=== PATIENT | female | born 2000 | race Caucasian/White ===

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

== ENCOUNTER → 2019-04-24 09:34 | Outpatient (CLI) | payer OTHER, MEDICAID, SELFPAY ==
[2019-04-24 10:22] LABS: Add Manual Diff / Slide Review NO; Basophils Absolute Auto 0 /uL (0-100); Basophils Percent Auto 0.5 % (0-2); Eosinophils Absolute Auto 100 /uL (0-450); Eosinophils Percent Auto 1.9 % (2-4); Hematocrit 37.1 % (36-46); Hemoglobin 12.5 g/dL (12.0-16.0); Lymphocytes Absolute Auto 2500 /uL (1100-4500); Mean Corpuscular HGB Conc 33.7 % (30-36); Mean Corpuscular Hemoglobin 27.8 PG (26-34); Mean Corpuscular Volume 82.5 fL (80-100); Monocytes Absolute Auto 400 /uL (0-900); Monocytes Percent Auto 6.5 % (3-14); Neutrophils Absolute Auto 3300 /uL (1500-7000); Neutrophils Percent Auto 52.1 % (50-75); Platelet Count 307 X10^3/uL (150-400); Red Blood Cell Count 4.49 X10^6/uL (4.0-5.2); Red Cell Distribution Width 14.9 % (11.6-14.8); White Blood Cell Count 6.3 X10^3/uL (4.5-11.0)
[2019-04-24 10:42] LABS: Alanine Aminotransferase 21 IU/L (9-52); Albumin 4.4 g/dL (3.5-5.0); Albumin Globulin Ratio 1.4 (1.0-2.8); Alkaline Phosphatase 74 U/L (38-126); Aspartate Aminotransferase 19 IU/L (14-36); BUN Creatinine Ratio 16.7 (6-22); Bilirubin Total 0.4 mg/dL (0.2-1.3); Blood Urea Nitrogen 10 mg/dL (7-17); Calcium 9.5 mg/dL (8.4-10.2); Carbon Dioxide 24 mmol/L (22-32); Chloride 108 mmol/L (98-107); Cholesterol 187 mg/dL (140-199); Estimated Glomerular Filt Rate > 60.0 mL/min (>60); Globulin 3.1 g/dL (1.7-4.1); Glucose 97 mg/dL (70-100); HDL Cholesterol 58 mg/dL (40-60); HEMOLYSIS < 15 (0-50); LDL Cholesterol Calculated 107 mg/dL (<100); Potassium 4.5 mmol/L (3.4-5.1); Sodium 140 mmol/L (137-145); Total Protein 7.5 g/dL (6.3-8.2); Triglycerides 111 mg/dL (35-150)
[2019-04-24 10:58] LABS: Free T3, Triiodothyronine Free 3.29 pg/mL (2.77-5.27); Free T4, Direct Thyroxine 0.63 ng/dL (0.78-2.19)
[2019-04-24 11:12] LABS: Thyroid Stimulating Hormone 2.16 uIU/mL (0.47-4.68)
== END ==
PROVIDERS: PCP Family Medicine; Visit Provider Family Medicine
DX: Z98.890 Other specified postprocedural states (principal); Z51.81 Encounter for therapeutic drug level monitoring; E03.9 Hypothyroidism, unspecified; G40.909 Epilepsy, unspecified, not intractable, without status epilepticus; Z13.220 Encounter for screening for lipoid disorders
CPT/HCPCS: 36415; 80053; 80061; 84439; 84443; 84481; 85025

== ENCOUNTER → 2019-05-15 12:09 | Outpatient (CLI) | payer OTHER, MEDICAID, SELFPAY ==
[2019-05-15 13:51] LABS: Appearance Urine UA SL CLOUDY; Bilirubin Urine UA NEGATIVE (NEGATIVE); Color Urine UA YELLOW; Glucose Urine UA NEGATIVE (Negative); Ketones Urine UA NEGATIVE (NEGATIVE); Leukocyte Esterase Urine UA NEGATIVE (NEGATIVE); Nitrite Urine UA NEGATIVE (Negative); Occult Blood Urine UA NEGATIVE (Negative); Protein Urine UA NEGATIVE (Negative); Urobilinogen Urine UA 0.2 E.U./dL (0.2)
== END ==
PROVIDERS: PCP Family Medicine; Visit Provider Family Medicine
DX: Z13.220 Encounter for screening for lipoid disorders (principal); Z51.81 Encounter for therapeutic drug level monitoring; E03.9 Hypothyroidism, unspecified; G40.909 Epilepsy, unspecified, not intractable, without status epilepticus; Z98.890 Other specified postprocedural states
CPT/HCPCS: 81003

== ENCOUNTER 2019-07-27 15:18 | Outpatient (RCR) | payer OTHER, MEDICAID, SELFPAY ==
--- NOTE | 2019-07-27 17:36 | ST.OPIE ---
Visit Care Team Role Provider Type Kirstin Parmar DO Attending Provider Physician Primary Care Provider Specialty: Family Practice Address: [address] [place] [address], [address], [place], [address] Email: [email or web address] Speech-Language Pathology Initial Evaluation CEMENT CONVEYOR OPERATOR Language Evaluation Start: 07/27/19 11:56 Freq: Status: Active Protocol: Document 07/27/19 16:19 LNK (Rec: 07/27/19 16:39 [facility] [id number]) Language Evaluation Session Time Visit Start Time 15:30 Visit Stop Time 16:15 Total Visit Minutes 45 Visit Information Visit Number 1 Plan of Care Dates 07/27/19 Insurance Information [employer] Next Note Type Next Note Type Treatment Note Referral Referring Physician Dr. Parmar Reason for Referral Selective mutism Language Evaluation Assessment Type Informal Past Medical History Patient History Mona is a 18 year old female who is status post right hemisphere resection secondary to frequent and severe seizure disorder. She is enrolled in a transitions program in [place]. Her mother brought her to the session. Mona has had seizures since she was a baby. Currently, she is living with her parents and brother. Subjective Subjective Mona presented for her appointment in [facility]. She looked disheveled. She initially did not speak to me, but nodded her head. She was encouraged to use a voice and words to answer her question, which she did. her mother attended the initial 10 minutes of the session. - Informal Assessment Receptive Language Normal Appears to be WFL Expressive Language Normal Appears to be WFL Articulation Normal Appears to be WFL Formal Assessment Results Formal assessment was not conducted as verbal language would be required. At this point this CEMENT CONVEYOR OPERATOR will wait until Mona is more comfortable with the setting before formal testing. - Receptive Language - Expressive Language - Findings Language Findings Mona is a timid young woman who presents much younger than her age. She was disheveled and wore her pajamas. She is able to express herself using a soft voice. She participated in a some conversation. Her language skills and articulation were observed to be WFL at this time. Her vocabulary appears to be adequate. She did remark that she thinks she is reticent to speak because when she was younger there wer e kids at school that bullied her. Throughout the session, she sat in a crouched position and was wringing her hands, hiding them in her sleeves. Discussion with Mona's mother noted that she tends to do things for Mona, such as most ADLs. She will also speak for Mona and interpret for her as well. There appeared to be some element of co-dependence. The recommendation for a counselor /psychiatrist was discussed with Mona's mother at length . Recommendations Recommendations Strongly recommend that Mona be seen regularly by a counselor/psychiatrist to address her anxiety over speaking. Speech therapy is not effective without addressing the overriding anxiety she has regarding talking. Treatment Goals Short Term Goals Mona and her family will locate a counselor to assist Mona with her anxiety. Mona will present to therapy sessions appropriately clothed and groomed. Mona will use her voice with familiar people to make needs known and to foster independence.
--- NOTE | 2019-09-08 11:18 | ST.OPDS ---
Visit Care Team Role Provider Type Kirstin Parmar DO Attending Provider Physician Primary Care Provider Address: [address] [place] [address], [address], [place], [address] QUALITY CHECKER Treatment Note QUALITY CHECKER Treatment Note Start: 07/27/19 11:56 Freq: Status: Active Protocol: Document 09/08/19 11:15 LNK (Rec: 09/08/19 11:18 LNK [id number]) Speech Pathology Treatment Note General Information General Information Mona is a 18 year old female who is status post right hemisphere resection secondary to frequent and severe seizure disorder. She is enrolled in a transitions program in [place]. Her mother brought her to the session. Mona has had seizures since she was a baby. Currently, she is living with her parents and brother. Objective Short Term Goals Mona and her family will locate a counselor to assist Mona with her anxiety. Mona will present to therapy sessions appropriately clothed and groomed. Mona will use her voice with familiar people to make needs known and to foster independence. [ End ] Jail Goals Strongly recommend that Mona be seen regularly by a counselor/psychiatrist to address her anxiety over speaking. Speech therapy is not effective without addressing the overriding anxiety she has regarding talking. [ End ] Assessment Assessment of Improvement Mona has not returned for ST since initial eval. Plan Amount of Therapy Recommended No Further Therapy Frequency of Treatment No Further Therapy Therapy Recommendations Discharge from Speech Therapy
== END 2019-09-08 13:08 ==
LOC: SP 15:18
PROVIDERS: PCP Family Medicine; Visit Provider Family Medicine
DX: F81.9 Developmental disorder of scholastic skills, unspecified (principal); G40.909 Epilepsy, unspecified, not intractable, without status epilepticus
CPT/HCPCS: 92523

== ENCOUNTER 2019-09-17 16:45 | Outpatient (RCR) | payer OTHER, MEDICAID, SELFPAY ==
--- NOTE | 2018-11-06 18:05 | PT.OIE ---
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) Epilepsy, unspecified, intractable, without status epilepticus (11/06/18) Hemiplegia, unspecified affecting left nondominant side (11/06/18) Other reduced mobility (11/06/18) Provider Visit Care Team Role Provider Type Marylou Peace Referring Provider Non-Staff Specialty: Physical Medicine and Rehab Address: [address] [place] [address], [id number] Email: Kirstin Parmar DO Attending Provider Physician Family Provider Primary Care Provider Specialty: Family Practice Address: [address] [place] [address], [id number] Email: [email or web address] Physical Therapy Initial Evaluation PT-OP-A Visit Information Start: 11/05/18 18:49 Freq: Status: Active Protocol: Document 11/06/18 13:45 [facility] (Rec: 11/06/18 14:32 [facility] [id number]) Out-Patient Physical Therapy Visit Information Visit Information Visit Type Initial Evaluation Visit Start Time 13:45 Visit Stop Time 14:30 Total Visit Minutes 45 Visit Number / Number of GLUE MOUNTER OPERATOR Visits 0 PT-OP-B Current Condition Start: 11/05/18 18:49 Freq: Status: Active Protocol: Document 11/06/18 13:45 [facility] (Rec: 11/06/18 14:32 [facility] [id number]) Current Condition History of Current Condition Onset Date 09/18/18 Current 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 She had a R ant temporal lobe resection in 10/19. Pt could walk without AD prior to surgery and was indep with ADLs. Pt has had weakness on L side since she was an so she has worn DAFO since then. At this time the dynamic aspect is stabilized. Pt returned home from inpatient rehab 10/31. Mom helps pt bath with bath chair. Mom helps some w/L side dressing but she is able to do indep also. Pt has selective mutism. Treatment Goals Patient/Caregiver Goals Be able to ride her bike. Be able to get around a lot more. PT-OP-D Balance Start: 11/05/18 18:51 Freq: Status: Active Protocol: Document 11/06/18 13:45 [facility] (Rec: 11/06/18 18:04 [facility] [id number]) Balance Tests Shea Balance Test Shea Balance Test Score 20 Shea Impairment Rating 60 to 79% Impaired (Score 12- 22) PT-OP-E Functional Tests Start: 11/05/18 18:51 Freq: Status: Active Protocol: Document 11/06/18 13:45 [facility] (Rec: 11/06/18 18:04 [facility] [id number]) Functional Tests Five Times Sit to Stand Test Score 33 sec Comments use of UE Timed Up and Go (TUG) Score 39 sec Tinetti Balance and Gait Assessment Composite Score 11 Composite Score Impairment Rating 60 to <80% Impaired (Score 6- 11) PT-OP-G Mobility & Gait Start: 11/05/18 18:51 Freq: Status: Active Protocol: Document 11/06/18 13:45 [facility] (Rec: 11/06/18 14:32 [facility] [id number]) OP Mobility Evaluation Bed Mobility Supine to and from Sit Pt required assist w/LLE for bed mobility to L side of bed. OP Gait Assessment Comments Gait Comments Amb w/NBQC in R hand with dec stance time on LLE and dec step length of RLE & clearance . PT-OP-M Strength Start: 11/05/18 18:51 Freq: Status: Active Protocol: Document 11/06/18 13:45 [facility] (Rec: 11/06/18 14:32 [facility] [id number]) Hip Strength Hip Manual Muscle Testing Right Flexion (L2) 4 Good External Rotation 4 Good Internal Rotation 4 Good Left Flexion (L2) 1 Trace Extension (S1) 2- Poor- Abduction 1 Trace Knee Strength Knee Manual Muscle Testing Right Flexion (S2) 4 Good Extension (L3) 4 Good Left Flexion (S2) 1 Trace Extension (L3) 1 Trace Ankle/Foot Strength Ankle and Foot Manual Muscle Testing Right Dorsiflexion (L4) 5 Normal Plantarflexion (S1) 5 Normal Comments tested seated Left Dorsiflexion (L4) 0 Zero PT-OP-Q Treatments Start: 11/05/18 18:49 Freq: Status: Active Protocol: Document 11/06/18 13:45 [facility] (Rec: 11/06/18 18:04 [facility] [id number]) Therapeutic Exercises Supine Exercises quad set Supine Exercise Name quad set Side left Reps/Minutes 7 Comments max cueing bridge Supine Exercise Name w/approximation & assist w/LE position Reps/Minutes 10 Standing Exercises sit to stand Standing Exercise Name sit to stand w/use of quad cane PT-OP-T Assessment and Plan Start: 11/05/18 18:49 Freq: Status: Active Protocol: Document 11/06/18 13:45 [facility] (Rec: 11/06/18 18:04 [facility] [id number]) Physical Therapy Assessment Rehab Potential Rehabilitation Potential Good Evaluation Complexity Number of Personal Factors/Comorbidities 3 or More Number of Body Systems Impaired 4 or More Clinical Presentation at Evaluation Evolving Impairments Impairments Activity Tolerance Balance Coordination Functional Activities Functional Mobility Gait Posture ROM Strength Transfers Goals SHEA Short Term Goal (STG) Pt will improve score to 30/56 to demonstrate improved balance & safety. STG Duration 12/20/18 Precision Honer Goal (LTG) Pt will improve score to >35/ 56 in order to demonstrate being safe with AD. LTG Duration 02/06/19 tinnetti Short Term Goal (STG) Pt will improve score to 19/28 in order to dec risk for falls STG Duration 12/20/18 Precision Honer Goal (LTG) Pt will improve score to 24/28 in order to be at low risk for falls LTG Duration 02/06/19 gait Short Term Goal (STG) Pt will be able to amb with SPC safely STG Duration 12/20/18 Fpc Goal (LTG) Pt will be able to amb with DAFO and limited cane usage for balance with overall good B step through and foot clearance. 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 She is limited in her gait & mobility and is not able to be indep with ADLs at this time. Mom is supportive and assisting as needed. Pt would benefit from skilled PT to address L sided weakness, dec balance and impaired gait. Physical Therapy Plan Frequency and Duration Frequency of Treatment 2x/Week Duration of Treatment 3 months Plan of Care Start Date 11/06/18 Plan of Care End Date 02/06/19 Therapeutic Interventions Therapeutic Interventions Aquatic Therapy Balance Training Coordination Training Gait Training Home Exercise Program Manual Therapy Neuromuscular Re-education Orthotic/Prosthetic Management Patient/Caregiver Education Self-Care/Home Management Taping Therapeutic Activities Therapeutic Exercises Next Visit Focus/Plan Next Note Type Treatment Note Next Visit Plan Standing exercises & training mom how to assist with standing exercises, seated stepper, balance exercises.
--- NOTE | 2018-11-06 18:05 | PT.OPPOC ---
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) Epilepsy, unspecified, intractable, without status epilepticus (11/06/18) Hemiplegia, unspecified affecting left nondominant side (11/06/18) Other reduced mobility (11/06/18) Provider Visit Care Team Role Provider Type Marylou Peace Referring Provider Non-Staff Specialty: Physical Medicine and Rehab Address: [address] [place] [address], [id number] Email: Kirstin Parmar DO Attending Provider Physician Family Provider Primary Care Provider Specialty: Family Practice Address: [address] [place] [address], [phone] Email: [email or web address] Plan Of Care PT-OP-T Assessment and Plan Start: 11/05/18 18:49 Freq: Status: Active Protocol: Document 11/06/18 13:45 [facility] (Rec: 11/06/18 18:04 [facility] [id number]) Physical Therapy Assessment Rehab Potential Rehabilitation Potential Good Evaluation Complexity Number of Personal Factors/Comorbidities 3 or More Number of Body Systems Impaired 4 or More Clinical Presentation at Evaluation Evolving Impairments Impairments Activity Tolerance Balance Coordination Functional Activities Functional Mobility Gait Posture ROM Strength Transfers Goals SHEA Short Term Goal (STG) Pt will improve score to 30/56 to demonstrate improved balance & safety. STG Duration 12/20/18 Drywaller Goal (LTG) Pt will improve score to >35/ 56 in order to demonstrate being safe with AD. LTG Duration 02/06/19 tinnetti Short Term Goal (STG) Pt will improve score to 19/28 in order to dec risk for falls STG Duration 12/20/18 Longterm Goal (LTG) Pt will improve score to 24/28 in order to be at low risk for falls LTG Duration 02/06/19 gait Short Term Goal (STG) Pt will be able to amb with SPC safely STG Duration 12/20/18 Drywaller Goal (LTG) Pt will be able to amb with DAFO and limited cane usage for balance with overall good B step through and foot clearance. 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 She is limited in her gait & mobility and is not able to be indep with ADLs at this time. Mom is supportive and assisting as needed. Pt would benefit from skilled PT to address L sided weakness, dec balance and impaired gait. Physical Therapy Plan Frequency and Duration Frequency of Treatment 2x/Week Duration of Treatment 3 months Plan of Care Start Date 11/06/18 Plan of Care End Date 02/06/19 Therapeutic Interventions Therapeutic Interventions Aquatic Therapy Balance Training Coordination Training Gait Training Home Exercise Program Manual Therapy Neuromuscular Re-education Orthotic/Prosthetic Management Patient/Caregiver Education Self-Care/Home Management Taping Therapeutic Activities Therapeutic Exercises Next Visit Focus/Plan Next Note Type Treatment Note Next Visit Plan Standing exercises & training mom how to assist with standing exercises, seated stepper, balance exercises. Plan of Care Dates Plan of Care Start Date 11/06/18 Plan of Care End Date 02/06/19 Please Sign and Return: I have reviewed this Plan of Care and certify that the skilled therapy services above are required to meet the patient?s needs. Physician Signature Date Printed Name and Credentials Clinical Instructor Signature Printed Name and Credentials
--- NOTE | 2018-11-14 12:00 | PT.OTN ---
Current Diagnoses Selective mutism (11/14/18) Epilepsy, unspecified, intractable, without status epilepticus (11/14/18) Hemiplegia, unspecified affecting left nondominant side (11/14/18) Other reduced mobility (11/14/18) Physical Therapy Treatment Note PT-OP-A Visit Information Start: 11/05/18 18:49 Freq: Status: Active Protocol: Document 11/14/18 12:00 RCC (Rec: 11/14/18 15:21 [facility] [email or web address]) Out-Patient Physical Therapy Visit Information Visit Information Visit Type Treatment Note Visit Start Time 12:00 Visit Stop Time 12:43 Total Visit Minutes 43 Visit Number 2 Number of KEG INSPECTOR Visits 0 PT-OP-B Current Condition Start: 11/05/18 18:49 Freq: Status: Active Protocol: Document 11/06/18 13:45 [facility] (Rec: 11/06/18 14:32 [facility] [id number]) Current Condition History of Current Condition Onset Date 09/18/18 Current 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 She had a R ant temporal lobe resection in 10/19. Pt could walk without AD prior to surgery and was indep with ADLs. Pt has had weakness on L side since she was an infant so she has worn DAFO since then. At this time the dynamic aspect is stabilized. Pt returned home from inpatient rehab 10/31. Mom helps pt bath with bath chair. Mom helps some w/L side dressing but she is able to do indep also. Pt has selective mutism. Treatment Goals Patient/Caregiver Goals Be able to ride her bike. Be able to get around a lot more. PT-OP-C Subjective Start: 11/05/18 18:49 Freq: Status: Active Protocol: Document 11/14/18 12:00 RCC (Rec: 11/14/18 15:22 [facility] [email or web address]) OP-PT Subjective Patient Comments Patient Comments Pt non-verbal during session but does shake head yes/no to questions. Shakes head no when asked if she is doing HEP . PT-OP-D Balance Start: 11/05/18 18:51 Freq: Status: Active Protocol: Document 11/06/18 13:45 [facility] (Rec: 11/06/18 18:04 [facility] [email or web address]) Balance Tests Ventura Balance Test Ventura Balance Test Score 20 Ventura Impairment Rating 60 to 79% Impaired (Score 12- 22) PT-OP-E Functional Tests Start: 11/05/18 18:51 Freq: Status: Active Protocol: Document 11/06/18 13:45 [facility] (Rec: 11/06/18 18:04 [facility] [email or web address]) Functional Tests Five Times Sit to Stand Test Score 33 sec Comments use of UE Timed Up and Go (TUG) Score 39 sec Tinetti Balance and Gait Assessment Composite Score 11 Composite Score Impairment Rating 60 to <80% Impaired (Score 6- 11) PT-OP-G Mobility & Gait Start: 11/05/18 18:51 Freq: Status: Active Protocol: Document 11/06/18 13:45 [facility] (Rec: 11/06/18 14:32 [facility] [id number]) OP Mobility Evaluation Bed Mobility Supine to and from Sit Pt required assist w/LLE for bed mobility to L side of bed. OP Gait Assessment Comments Gait Comments Amb w/NBQC in R hand with dec stance time on LLE and dec step length of RLE & clearance . PT-OP-M Strength Start: 11/05/18 18:51 Freq: Status: Active Protocol: Document 11/06/18 13:45 [facility] (Rec: 11/06/18 14:32 [facility] [id number]) Hip Strength Hip Manual Muscle Testing Right Flexion (L2) 4 Good External Rotation 4 Good Internal Rotation 4 Good Left Flexion (L2) 1 Trace Extension (S1) 2- Poor- Abduction 1 Trace Knee Strength Knee Manual Muscle Testing Right Flexion (S2) 4 Good Extension (L3) 4 Good Left Flexion (S2) 1 Trace Extension (L3) 1 Trace Ankle/Foot Strength Ankle and Foot Manual Muscle Testing Right Dorsiflexion (L4) 5 Normal Plantarflexion (S1) 5 Normal Comments tested seated Left Dorsiflexion (L4) 0 Zero PT-OP-Q Treatments Start: 11/05/18 18:49 Freq: Status: Active Protocol: Document 11/14/18 12:00 [facility] (Rec: 11/14/18 15:21 [facility] [email or web address]) Cardio Equipment Recumbent Elliptical (Favery) Duration (Minutes) 5 Resistance 1 Seat Position 5 Other occasional assisst with LLE alignment Gym Equipment Therapeutic Ball bilateral knee and hip flexion/extension Ball Size/Color 55 cm Body Position Hooklying Reps/Duration x15 Comments assist for LE stability, AAROM Therapeutic Exercises Supine Exercises hip adduction Supine Exercise Name ball squeeze isometric hip adduction Side bilateral Equipment Used small therapy ball Reps/Minutes x10 Comments 3 sec hold Hip IR/ER roll in/out Side left Reps/Minutes x10 Comments AAROM quad set Supine Exercise Name quad set Side left Reps/Minutes 10 Comments max cueing- verbal and tactile (given for HEP, mother edu) bridge Supine Exercise Name w/approximation & assist w/LE position Reps/Minutes 10 Sitting Exercises knee extension Sitting Exercise Name AAROM SAQ Side left Reps/Minutes x10 Standing Exercises sit to stand Standing Exercise Name sit to stand w/use of quad cane Reps/Minutes x10 Comments lowest setting on large individual black table- firm& R foot on yellow disc Gait Training Gait Activity // bars Description level surface gait in // bars Comments 5 laps Quad cane Description level surface Device Used quad cane Level of Assistance SBA Distance/Duration 175 ft Treatment Focus quad activation, step length PT-OP-T Assessment and Plan Start: 11/05/18 18:49 Freq: Status: Active Protocol: Document 11/14/18 12:00 [facility] (Rec: 11/14/18 15:21 [facility] [email or web address]) Physical Therapy Assessment Assessment Summary Assessment Pt willing participant in therapy session today. She requires assistance, tactile and verbal cuing for all activities. Pt with L knee hyperextension, exacerbated when not using quad cane. Mother educated at end of session for HEP, as she was not available until very end of session. Physical Therapy Plan Frequency and Duration Frequency of Treatment 2x/Week Duration of Treatment 3 months Plan of Care Start Date 11/06/18 Plan of Care End Date 02/06/19 Next Visit Focus/Plan Next Note Type Treatment Note Next Visit Plan standing balance, LLE strengthening, gait
--- NOTE | 2018-11-17 15:48 | PT.OTN ---
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) Epilepsy, unspecified, intractable, without status epilepticus (11/17/18) Hemiplegia, unspecified affecting left nondominant side (11/17/18) Other reduced mobility (11/17/18) Physical Therapy Treatment Note PT-OP-A Visit Information Start: 11/05/18 18:49 Freq: Status: Active Protocol: Document 11/17/18 10:15 LJ (Rec: 11/17/18 15:48 LJ [email or web address]) Out-Patient Physical Therapy Visit Information Visit Information Visit Type Aquatic Treatment Note Visit Start Time 10:15 Visit Stop Time 11:00 Total Visit Minutes 45 Visit Number 3 Number of SCALP TREATMENT SPECIALIST Visits 1 PT-OP-B Current Condition Start: 11/05/18 18:49 Freq: Status: Active Protocol: Document 11/06/18 13:45 [facility] (Rec: 11/06/18 14:32 [facility] [id number]) Current Condition History of Current Condition Onset Date 09/18/18 Current 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 She had a R ant temporal lobe resection in 10/19. Pt could walk without AD prior to surgery and was indep with ADLs. Pt has had weakness on L side since she was an infant so she has worn DAFO since then. At this time the dynamic aspect is stabilized. Pt returned home from inpatient rehab 10/31. Mom helps pt bath with bath chair. Mom helps some w/L side dressing but she is able to do indep also. Pt has selective mutism. Treatment Goals Patient/Caregiver Goals Be able to ride her bike. Be able to get around a lot more. PT-OP-C Subjective Start: 11/05/18 18:49 Freq: Status: Active Protocol: Document 11/17/18 10:15 LJ (Rec: 11/17/18 15:48 LJ [email or web address]) OP-PT Subjective Patient Comments Patient Comments Pt somewhat apprehensive about aquatic therapy . States she does not swim and does not like cold water. PT-OP-D Balance Start: 11/05/18 18:51 Freq: Status: Active Protocol: Document 11/06/18 13:45 [facility] (Rec: 11/06/18 18:04 [facility] [email or web address]) Balance Tests Shea Balance Test Shea Balance Test Score 20 Shea Impairment Rating 60 to 79% Impaired (Score 12- 22) PT-OP-E Functional Tests Start: 11/05/18 18:51 Freq: Status: Active Protocol: Document 11/06/18 13:45 [facility] (Rec: 11/06/18 18:04 [facility] [email or web address]) Functional Tests Five Times Sit to Stand Test Score 33 sec Comments use of UE Timed Up and Go (TUG) Score 39 sec Tinetti Balance and Gait Assessment Composite Score 11 Composite Score Impairment Rating 60 to <80% Impaired (Score 6- 11) PT-OP-G Mobility & Gait Start: 11/05/18 18:51 Freq: Status: Active Protocol: Document 11/06/18 13:45 [facility] (Rec: 11/06/18 14:32 [facility] [id number]) OP Mobility Evaluation Bed Mobility Supine to and from Sit Pt required assist w/LLE for bed mobility to L side of bed. OP Gait Assessment Comments Gait Comments Amb w/NBQC in R hand with dec stance time on LLE and dec step length of RLE & clearance . PT-OP-M Strength Start: 11/05/18 18:51 Freq: Status: Active Protocol: Document 11/06/18 13:45 [facility] (Rec: 11/06/18 14:32 [facility] [id number]) Hip Strength Hip Manual Muscle Testing Right Flexion (L2) 4 Good External Rotation 4 Good Internal Rotation 4 Good Left Flexion (L2) 1 Trace Extension (S1) 2- Poor- Abduction 1 Trace Knee Strength Knee Manual Muscle Testing Right Flexion (S2) 4 Good Extension (L3) 4 Good Left Flexion (S2) 1 Trace Extension (L3) 1 Trace Ankle/Foot Strength Ankle and Foot Manual Muscle Testing Right Dorsiflexion (L4) 5 Normal Plantarflexion (S1) 5 Normal Comments tested seated Left Dorsiflexion (L4) 0 Zero PT-OP-Q Treatments Start: 11/05/18 18:49 Freq: Status: Active Protocol: Document 11/14/18 12:00 [facility] (Rec: 11/14/18 15:21 [facility] [email or web address]) Cardio Equipment Recumbent Elliptical ([employer] Beanies) Duration (Minutes) 5 Resistance 1 Seat Position 5 Other occasional assisst with LLE alignment Gym Equipment Therapeutic Ball bilateral knee and hip flexion/extension Ball Size/Color 55 cm Body Position Hooklying Reps/Duration x15 Comments assist for LE stability, AAROM Therapeutic Exercises Supine Exercises hip adduction Supine Exercise Name ball squeeze isometric hip adduction Side bilateral Equipment Used small therapy ball Reps/Minutes x10 Comments 3 sec hold Hip IR/ER roll in/out Side left Reps/Minutes x10 Comments AAROM quad set Supine Exercise Name quad set Side left Reps/Minutes 10 Comments max cueing- verbal and tactile (given for HEP, mother edu) bridge Supine Exercise Name w/approximation & assist w/LE position Reps/Minutes 10 Sitting Exercises knee extension Sitting Exercise Name AAROM SAQ Side left Reps/Minutes x10 Standing Exercises sit to stand Standing Exercise Name sit to stand w/use of quad cane Reps/Minutes x10 Comments lowest setting on large individual black table- firm& R foot on yellow disc Gait Training Gait Activity // bars Description level surface gait in // bars Comments 5 laps Quad cane Description level surface Device Used quad cane Level of Assistance SBA Distance/Duration 175 ft Treatment Focus quad activation, step length PT-OP-S Aquatic Treatment Start: 11/17/18 15:12 Freq: Status: Active Protocol: Document 11/17/18 10:15 [facility] (Rec: 11/17/18 15:48 [facility] [email or web address]) Aquatics Treatment Pool Entry/Exit Pool Entry/Exit Method Stairs Assistance Moderate Assistance Comments manual cuing for hand placement on rails and directing body alignment to fs Water Walking Monster Walk Water Level Chest Level Walking Equipment lg noodle, M belt Level of Assistance Moderate Assistance Comments manual assist LEs (L>R) Sideways Water Level Chest Level Walking Equipment lg noodle, M belt Level of Assistance Minimal Assistance Comments cues for toe and body alignment Backwards Water Level Chest Level Walking Equipment lg noodle, M belt Level of Assistance Moderate Assistance Comments at wall with handhold initially, cues for body alignment Forwards Water Level Chest Level Walking Equipment lg noodle, M belt Level of Assistance Moderate Assistance Comments at wall with handhold initially Lower Extremity Exercises HS curls, Knee extension Details at wall with handhold Body Position Standing Water Level Waist Level Reps/Duration 10 bilat Comments manual assist LEs (L>R) hip flex/ext, ab/ad Details at wall with handhold Body Position Standing Water Level Waist Level Reps/Duration 10 bilat Comments ModA for LLE Upper Extremity Exercises horiz ab/ad, lateral ab/ad, flex/ext Details stand with back against wall. Removed belt Body Position Standing Water Level Waist Level Equipment swim glove L hand Reps/Duration 10 ea Comments manual and verbal cuing Pediatric/Neuro Gross Motor Coordination Activities PNF D1,D2 UE PNF D1 LE 10 bilat Manual assist and cuing PT-OP-T Assessment and Plan Start: 11/05/18 18:49 Freq: Status: Active Protocol: Document 11/17/18 10:15 [facility] (Rec: 11/17/18 15:48 [facility] [email or web address]) Physical Therapy Assessment Impairments Impairments Activity Tolerance Balance Coordination Functional Activities Functional Mobility Gait Posture ROM Strength Transfers Goals SHEA Short Term Goal (STG) Pt will improve score to 30/56 to demonstrate improved balance & safety. STG Duration 12/20/18 Fpc Goal (LTG) Pt will improve score to >35/ 56 in order to demonstrate being safe with AD. LTG Duration 02/06/19 tinnetti Short Term Goal (STG) Pt will improve score to 19/28 in order to dec risk for falls STG Duration 12/20/18 Test Manager Goal (LTG) Pt will improve score to 24/28 in order to be at low risk for falls LTG Duration 02/06/19 gait Short Term Goal (STG) Pt will be able to amb with SPC safely STG Duration 12/20/18 Fpc Goal (LTG) Pt will be able to amb with DAFO and limited cane usage for balance with overall good B step through and foot clearance. LTG Duration 02/06/19 Assessment Summary Assessment Pt participated in conversation with short sentences and gestures. Unsteady with all walking activities requiring assist with balance and body alignment. Required tactile and verbal cuing for standing exercises. Belt and noodle were used for walking, handhold used for standing exercises. Swim glove on L hand for extension and resistance. Physical Therapy Plan Frequency and Duration Frequency of Treatment 2x/Week Duration of Treatment 3 months Plan of Care Start Date 11/06/18 Plan of Care End Date 02/06/19 Therapeutic Interventions Therapeutic Interventions Aquatic Therapy Balance Training Coordination Training Gait Training Home Exercise Program Manual Therapy Neuromuscular Re-education Orthotic/Prosthetic Management Patient/Caregiver Education Self-Care/Home Management Taping Therapeutic Activities Therapeutic Exercises Next Visit Focus/Plan Next Note Type Treatment Note Next Visit Plan Progress balance and walking activities as well as strengthening for LE and UE.
--- NOTE | 2018-11-21 11:25 | PT.OTN ---
Current Diagnoses Selective mutism (11/21/18) Epilepsy, unspecified, intractable, without status epilepticus (11/21/18) Hemiplegia, unspecified affecting left nondominant side (11/21/18) Other reduced mobility (11/21/18) Physical Therapy Treatment Note PT-OP-A Visit Information Start: 11/05/18 18:49 Freq: Status: Active Protocol: Document 11/21/18 11:25 [facility] (Rec: 11/21/18 13:02 [facility] [email or web address]) Out-Patient Physical Therapy Visit Information Visit Information Visit Type Treatment Note Visit Start Time 11:25 Visit Stop Time 11:58 Total Visit Minutes 33 Visit Number 4 Number of CLOTH WASHER OPERATOR Visits 0 Evaluation Information Evaluation Date 11/06/18 PT-OP-B Current Condition Start: 11/05/18 18:49 Freq: Status: Active Protocol: Document 11/06/18 13:45 [facility] (Rec: 11/06/18 14:32 [facility] [id number]) Current Condition History of Current Condition Onset Date 09/18/18 Current 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 She had a R ant temporal lobe resection in 10/19. Pt could walk without AD prior to surgery and was indep with ADLs. Pt has had weakness on L side since she was an infant so she has worn DAFO since then. At this time the dynamic aspect is stabilized. Pt returned home from inpatient rehab 10/31. Mom helps pt bath with bath chair. Mom helps some w/L side dressing but she is able to do indep also. Pt has selective mutism. Treatment Goals Patient/Caregiver Goals Be able to ride her bike. Be able to get around a lot more. PT-OP-C Subjective Start: 11/05/18 18:49 Freq: Status: Active Protocol: Document 11/21/18 11:25 [facility] (Rec: 11/21/18 13:02 [facility] [email or web address]) OP-PT Subjective Patient Comments Patient Comments Pt's mother states that she forgot Mona's brace today. She was asking about a w/c assessment per [facility] request. PT-OP-D Balance Start: 11/05/18 18:51 Freq: Status: Active Protocol: Document 11/06/18 13:45 [facility] (Rec: 11/06/18 18:04 [facility] [email or web address]) Balance Tests Ventura Balance Test Ventura Balance Test Score 20 [place] Impairment Rating 60 to 79% Impaired (Score 12- 22) PT-OP-E Functional Tests Start: 11/05/18 18:51 Freq: Status: Active Protocol: Document 11/06/18 13:45 [facility] (Rec: 11/06/18 18:04 [facility] [email or web address]) Functional Tests Five Times Sit to Stand Test Score 33 sec Comments use of UE Timed Up and Go (TUG) Score 39 sec Tinetti Balance and Gait Assessment Composite Score 11 Composite Score Impairment Rating 60 to <80% Impaired (Score 6- 11) PT-OP-G Mobility & Gait Start: 11/05/18 18:51 Freq: Status: Active Protocol: Document 11/06/18 13:45 [facility] (Rec: 11/06/18 14:32 [facility] [id number]) OP Mobility Evaluation Bed Mobility Supine to and from Sit Pt required assist w/LLE for bed mobility to L side of bed. OP Gait Assessment Comments Gait Comments Amb w/NBQC in R hand with dec stance time on LLE and dec step length of RLE & clearance . PT-OP-M Strength Start: 11/05/18 18:51 Freq: Status: Active Protocol: Document 11/06/18 13:45 [facility] (Rec: 11/06/18 14:32 [facility] [id number]) Hip Strength Hip Manual Muscle Testing Right Flexion (L2) 4 Good External Rotation 4 Good Internal Rotation 4 Good Left Flexion (L2) 1 Trace Extension (S1) 2- Poor- Abduction 1 Trace Knee Strength Knee Manual Muscle Testing Right Flexion (S2) 4 Good Extension (L3) 4 Good Left Flexion (S2) 1 Trace Extension (L3) 1 Trace Ankle/Foot Strength Ankle and Foot Manual Muscle Testing Right Dorsiflexion (L4) 5 Normal Plantarflexion (S1) 5 Normal Comments tested seated Left Dorsiflexion (L4) 0 Zero PT-OP-Q Treatments Start: 11/05/18 18:49 Freq: Status: Active Protocol: Document 11/21/18 11:25 [facility] (Rec: 11/21/18 13:02 [facility] [email or web address]) Cardio Equipment Recumbent Elliptical (Bi[employer]x) Duration (Minutes) 6 Resistance 1 Seat Position 5 Other assist with LLE alignment Therapeutic Exercises Supine Exercises gastroc/soleus stretch Side left Reps/Minutes 3x 30 sec each Comments manual hip adduction Supine Exercise Name ball squeeze isometric hip adduction Side bilateral Equipment Used small therapy ball Reps/Minutes x10 Comments 3 sec hold Hip IR/ER roll in/out Side left Reps/Minutes x10 Comments AAROM quad set Supine Exercise Name quad set Side left Reps/Minutes x20 Comments max cueing- verbal and tactile (given for HEP, mother edu) bridge Supine Exercise Name w/approximation & assist w/LE position Reps/Minutes 12 Sitting Exercises knee extension Sitting Exercise Name AAROM SAQ Side left Reps/Minutes x10 Standing Exercises sit to stand Standing Exercise Name sit to stand w/use of quad cane Comments lowest setting on large individual black table- firm& R foot on yellow disc Gait Training Gait Activity Quad cane Description outdoors on pavement, slight grade Device Used quad cane Level of Assistance SBA Distance/Duration 50 ft Treatment Focus quad activation, step length, sequencing PT-OP-S Aquatic Treatment Start: 11/17/18 15:12 Freq: Status: Active Protocol: Document 11/17/18 10:15 [facility] (Rec: 11/17/18 15:48 [facility] [email or web address]) Aquatics Treatment Pool Entry/Exit Pool Entry/Exit Method Stairs Assistance Moderate Assistance Comments manual cuing for hand placement on rails and directing body alignment to fs Water Walking Monster Walk Water Level Chest Level Walking Equipment lg noodle, M belt Level of Assistance Moderate Assistance Comments manual assist LEs (L>R) Sideways Water Level Chest Level Walking Equipment lg noodle, M belt Level of Assistance Minimal Assistance Comments cues for toe and body alignment Backwards Water Level Chest Level Walking Equipment lg noodle, M belt Level of Assistance Moderate Assistance Comments at wall with handhold initially, cues for body alignment Forwards Water Level Chest Level Walking Equipment lg noodle, M belt Level of Assistance Moderate Assistance Comments at wall with handhold initially Lower Extremity Exercises HS curls, Knee extension Details at wall with handhold Body Position Standing Water Level Waist Level Reps/Duration 10 bilat Comments manual assist LEs (L>R) hip flex/ext, ab/ad Details at wall with handhold Body Position Standing Water Level Waist Level Reps/Duration 10 bilat Comments ModA for LLE Upper Extremity Exercises horiz ab/ad, lateral ab/ad, flex/ext Details stand with back against wall. Removed belt Body Position Standing Water Level Waist Level Equipment swim glove L hand Reps/Duration 10 ea Comments manual and verbal cuing Pediatric/Neuro Gross Motor Coordination Activities PNF D1,D2 UE PNF D1 LE 10 bilat Manual assist and cuing PT-OP-T Assessment and Plan Start: 11/05/18 18:49 Freq: Status: Active Protocol: Document 11/21/18 11:25 [facility] (Rec: 11/21/18 13:02 [facility] [email or web address]) Physical Therapy Assessment Assessment Summary Assessment Pt and mother 10 min late to appointment this session. Mona did not shake head no when asked with each exercise if she was having pain and/or discomfort. She was able to ambulate outdoors on pavement up a slight grade with SBA and quad cane, although she falls out of proper sequencing with quad cane and steps. Physical Therapy Plan Frequency and Duration Frequency of Treatment 2x/Week Duration of Treatment 3 months Plan of Care Start Date 11/06/18 Plan of Care End Date 02/06/19 Next Visit Focus/Plan Next Note Type Treatment Note Next Visit Plan prog. gait and LLE strengthening as tolerated
--- NOTE | 2018-11-24 15:57 | PT.OTN ---
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) Epilepsy, unspecified, intractable, without status epilepticus (11/24/18) Hemiplegia, unspecified affecting left nondominant side (11/24/18) Other reduced mobility (11/24/18) Physical Therapy Treatment Note PT-OP-A Visit Information Start: 11/05/18 18:49 Freq: Status: Active Protocol: Document 11/24/18 12:30 LJ (Rec: 11/24/18 15:57 LJ [email or web address]) Out-Patient Physical Therapy Visit Information Visit Information Visit Type Aquatic Treatment Note Visit Start Time 12:30 Visit Stop Time 13:15 Total Visit Minutes 45 Visit Number 5 Number of COLLEGE INSTRUCTOR Visits 1 PT-OP-B Current Condition Start: 11/05/18 18:49 Freq: Status: Active Protocol: Document 11/06/18 13:45 [facility] (Rec: 11/06/18 14:32 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 She had a R ant temporal lobe resection in 10/19. Pt could walk without AD prior to surgery and was indep with ADLs. Pt has had weakness on L side since she was an infant so she has worn DAFO since then. At this time the dynamic aspect is stabilized. Pt returned home from inpatient rehab 10/31. Mom helps pt bath with bath chair. Mom helps some w/L side dressing but she is able to do indep also. Pt has selective mutism. Treatment Goals Patient/Caregiver Goals Be able to ride her bike. Be able to get around a lot more. PT-OP-C Subjective Start: 11/05/18 18:49 Freq: Status: Active Protocol: Document 11/24/18 12:30 LJ (Rec: 11/24/18 15:57 LJ [email or web address]) OP-PT Subjective Patient Comments Patient Comments Pt less apprehensive about getting into water today. Still complained of water being too cold. PT-OP-D Balance Start: 11/05/18 18:51 Freq: Status: Active Protocol: Document 11/06/18 13:45 LR (Rec: 11/06/18 18:04 [facility] [email or web address]) Balance Tests Shea Balance Test Shea Balance Test Score 20 Shea Impairment Rating 60 to 79% Impaired (Score 12- 22) PT-OP-E Functional Tests Start: 11/05/18 18:51 Freq: Status: Active Protocol: Document 11/06/18 13:45 [facility] (Rec: 11/06/18 18:04 [facility] [email or web address]) Functional Tests Five Times Sit to Stand Test Score 33 sec Comments use of UE Timed Up and Go (TUG) Score 39 sec Tinetti Balance and Gait Assessment Composite Score 11 Composite Score Impairment Rating 60 to <80% Impaired (Score 6- 11) PT-OP-G Mobility & Gait Start: 11/05/18 18:51 Freq: Status: Active Protocol: Document 11/06/18 13:45 [facility] (Rec: 11/06/18 14:32 [facility] [id number]) OP Mobility Evaluation Bed Mobility Supine to and from Sit Pt required assist w/LLE for bed mobility to L side of bed. OP Gait Assessment Comments Gait Comments Amb w/NBQC in R hand with dec stance time on LLE and dec step length of RLE & clearance . PT-OP-M Strength Start: 11/05/18 18:51 Freq: Status: Active Protocol: Document 11/06/18 13:45 [facility] (Rec: 11/06/18 14:32 [facility] [id number]) Hip Strength Hip Manual Muscle Testing Right Flexion (L2) 4 Good External Rotation 4 Good Internal Rotation 4 Good Left Flexion (L2) 1 Trace Extension (S1) 2- Poor- Abduction 1 Trace Knee Strength Knee Manual Muscle Testing Right Flexion (S2) 4 Good Extension (L3) 4 Good Left Flexion (S2) 1 Trace Extension (L3) 1 Trace Ankle/Foot Strength Ankle and Foot Manual Muscle Testing Right Dorsiflexion (L4) 5 Normal Plantarflexion (S1) 5 Normal Comments tested seated Left Dorsiflexion (L4) 0 Zero PT-OP-Q Treatments Start: 11/05/18 18:49 Freq: Status: Active Protocol: Document 11/21/18 11:25 [facility] (Rec: 11/21/18 13:02 [facility] [email or web address]) Cardio Equipment Recumbent Elliptical ([employer]) Duration (Minutes) 6 Resistance 1 Seat Position 5 Other assist with LLE alignment Therapeutic Exercises Supine Exercises gastroc/soleus stretch Side left Reps/Minutes 3x 30 sec each Comments manual hip adduction Supine Exercise Name ball squeeze isometric hip adduction Side bilateral Equipment Used small therapy ball Reps/Minutes x10 Comments 3 sec hold Hip IR/ER roll in/out Side left Reps/Minutes x10 Comments AAROM quad set Supine Exercise Name quad set Side left Reps/Minutes x20 Comments max cueing- verbal and tactile (given for HEP, mother edu) bridge Supine Exercise Name w/approximation & assist w/LE position Reps/Minutes 12 Sitting Exercises knee extension Sitting Exercise Name AAROM SAQ Side left Reps/Minutes x10 Standing Exercises sit to stand Standing Exercise Name sit to stand w/use of quad cane Comments lowest setting on large individual black table- firm& R foot on yellow disc Gait Training Gait Activity Quad cane Description outdoors on pavement, slight grade Device Used quad cane Level of Assistance SBA Distance/Duration 50 ft Treatment Focus quad activation, step length, sequencing PT-OP-S Aquatic Treatment Start: 11/17/18 15:12 Freq: Status: Active Protocol: Document 11/24/18 12:30 SUNITHA (Rec: 11/24/18 15:57 LJ [email or web address]) Aquatics Treatment Pool Entry/Exit Pool Entry/Exit Method Stairs Assistance Moderate Assistance Comments manual cuing for hand placement on rails and directing body alignment to fs Water Walking Monster Walk Water Level Chest Level Walking Equipment lg noodle, M belt Level of Assistance Moderate Assistance Comments manual assist LEs (L>R) Sideways Water Level Chest Level Walking Equipment lg noodle, M belt Level of Assistance Minimal Assistance Comments cues for toe and body alignment Backwards Water Level Chest Level Walking Equipment lg noodle, M belt Level of Assistance Moderate Assistance Comments at wall with handhold initially, cues for body alignment Forwards Water Level Chest Level Walking Equipment lg noodle, M belt Level of Assistance Moderate Assistance Comments at wall with handhold initially Lower Extremity Exercises HS curls, Knee extension Details at wall with handhold Body Position Standing Water Level Waist Level Reps/Duration 15 bilat Comments manual assist LEs (L>R) hip flex/ext, ab/ad Details at wall with handhold Body Position Standing Water Level Waist Level Reps/Duration 15 bilat ea Comments ModA for LLE Upper Extremity Exercises figure 8 in coronal plane with UE paddles Details no belt Body Position Standing Water Level Chest Level Reps/Duration 10 Comments manual assist at trunk horiz ab/ad, lateral ab/ad, flex/ext Details Removed belt Body Position Standing Water Level Waist Level Equipment UE paddles Reps/Duration 10 ea Comments manual and verbal cuing Balance SLS bilat Body Position Standing Water Level Chest Level Reps/Duration sm squat Comments manual bracing for LLE [place] Activities [place] Activities Bicycle Equipment blue float Duration 12 min Comments pt first time in deep water. Occasionally pt peddled backwards . No use of UEs other than hanging onto PT or float Pediatric/Neuro Gross Motor Coordination Activities PNF D1,D2 UE PNF D1 LE 10 bilat Manual assist and cuing PT-OP-T Assessment and Plan Start: 11/05/18 18:49 Freq: Status: Active Protocol: Document 11/24/18 12:30 LJ (Rec: 11/24/18 15:57 LJ [email or web address]) Physical Therapy Assessment Goals SHEA Short Term Goal (STG) Pt will improve score to 30/56 to demonstrate improved balance & safety. STG Duration 12/20/18 Jail Goal (LTG) Pt will improve score to >35/ 56 in order to demonstrate being safe with AD. LTG Duration 02/06/19 tinnetti Short Term Goal (STG) Pt will improve score to 19/28 in order to dec risk for falls STG Duration 12/20/18 Jail Goal (LTG) Pt will improve score to 24/28 in order to be at low risk for falls LTG Duration 02/06/19 gait Short Term Goal (STG) Pt will be able to amb with SPC safely STG Duration 12/20/18 Jail Goal (LTG) Pt will be able to amb with DAFO and limited cane usage for balance with overall good B step through and foot clearance. LTG Duration 02/06/19 Assessment Summary Assessment Pt with increased confidence and better coordination during water walking activities. Has right hip anterior rotation during side walking and requires manual assist to attain neutral positioning with walking activities. Pt performed well in deep water increasing intensity of LE movement. Physical Therapy Plan Frequency and Duration Frequency of Treatment 2x/Week Duration of Treatment 3 months Plan of Care Start Date 11/06/18 Plan of Care End Date 02/06/19 Therapeutic Interventions Therapeutic Interventions Aquatic Therapy Balance Training Coordination Training Gait Training Home Exercise Program Manual Therapy Neuromuscular Re-education Orthotic/Prosthetic Management Patient/Caregiver Education Self-Care/Home Management Taping Therapeutic Activities Therapeutic Exercises Next Visit Focus/Plan Next Note Type Treatment Note Next Visit Plan prog. gait and LLE strengthening as tolerated. Continue with deep water bicycling and running incorprorating UE movement as well.
--- NOTE | 2018-11-24 16:01 | PT.OTN ---
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) Epilepsy, unspecified, intractable, without status epilepticus (11/24/18) Hemiplegia, unspecified affecting left nondominant side (11/24/18) Other reduced mobility (11/24/18) Physical Therapy Treatment Note PT-OP-A Visit Information Start: 11/05/18 18:49 Freq: Status: Active Protocol: Document 11/24/18 12:30 LJ (Rec: 11/24/18 15:57 LJ [email or web address]) Out-Patient Physical Therapy Visit Information Visit Information Visit Type Aquatic Treatment Note Visit Start Time 12:30 Visit Stop Time 13:15 Total Visit Minutes 45 Visit Number 5 Number of DISTRIBUTION A CLASS LINEMAN Visits 1 PT-OP-B Current Condition Start: 11/05/18 18:49 Freq: Status: Active Protocol: Document 11/06/18 13:45 [facility] (Rec: 11/06/18 14:32 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 She had a R ant temporal lobe resection in 10/19. Pt could walk without AD prior to surgery and was indep with ADLs. Pt has had weakness on L side since she was an infant so she has worn DAFO since then. At this time the dynamic aspect is stabilized. Pt returned home from inpatient rehab 10/31. Mom helps pt bath with bath chair. Mom helps some w/L side dressing but she is able to do indep also. Pt has selective mutism. Treatment Goals Patient/Caregiver Goals Be able to ride her bike. Be able to get around a lot more. PT-OP-C Subjective Start: 11/05/18 18:49 Freq: Status: Active Protocol: Document 11/24/18 12:30 LJ (Rec: 11/24/18 15:57 LJ [email or web address]) OP-PT Subjective Patient Comments Patient Comments Pt less apprehensive about getting into water today. Still complained of water being too cold. PT-OP-D Balance Start: 11/05/18 18:51 Freq: Status: Active Protocol: Document 11/06/18 13:45 LR (Rec: 11/06/18 18:04 [facility] [email or web address]) Balance Tests Shea Balance Test Shea Balance Test Score 20 Shea Impairment Rating 60 to 79% Impaired (Score 12- 22) PT-OP-E Functional Tests Start: 11/05/18 18:51 Freq: Status: Active Protocol: Document 11/06/18 13:45 [facility] (Rec: 11/06/18 18:04 [facility] [email or web address]) Functional Tests Five Times Sit to Stand Test Score 33 sec Comments use of UE Timed Up and Go (TUG) Score 39 sec Tinetti Balance and Gait Assessment Composite Score 11 Composite Score Impairment Rating 60 to <80% Impaired (Score 6- 11) PT-OP-G Mobility & Gait Start: 11/05/18 18:51 Freq: Status: Active Protocol: Document 11/06/18 13:45 [facility] (Rec: 11/06/18 14:32 [facility] [id number]) OP Mobility Evaluation Bed Mobility Supine to and from Sit Pt required assist w/LLE for bed mobility to L side of bed. OP Gait Assessment Comments Gait Comments Amb w/NBQC in R hand with dec stance time on LLE and dec step length of RLE & clearance . PT-OP-M Strength Start: 11/05/18 18:51 Freq: Status: Active Protocol: Document 11/06/18 13:45 [facility] (Rec: 11/06/18 14:32 [facility] [id number]) Hip Strength Hip Manual Muscle Testing Right Flexion (L2) 4 Good External Rotation 4 Good Internal Rotation 4 Good Left Flexion (L2) 1 Trace Extension (S1) 2- Poor- Abduction 1 Trace Knee Strength Knee Manual Muscle Testing Right Flexion (S2) 4 Good Extension (L3) 4 Good Left Flexion (S2) 1 Trace Extension (L3) 1 Trace Ankle/Foot Strength Ankle and Foot Manual Muscle Testing Right Dorsiflexion (L4) 5 Normal Plantarflexion (S1) 5 Normal Comments tested seated Left Dorsiflexion (L4) 0 Zero PT-OP-Q Treatments Start: 11/05/18 18:49 Freq: Status: Active Protocol: Document 11/21/18 11:25 RCC (Rec: 11/21/18 13:02 [facility] [email or web address]) Cardio Equipment Recumbent Elliptical ([employer]) Duration (Minutes) 6 Resistance 1 Seat Position 5 Other assist with LLE alignment Therapeutic Exercises Supine Exercises gastroc/soleus stretch Side left Reps/Minutes 3x 30 sec each Comments manual hip adduction Supine Exercise Name ball squeeze isometric hip adduction Side bilateral Equipment Used small therapy ball Reps/Minutes x10 Comments 3 sec hold Hip IR/ER roll in/out Side left Reps/Minutes x10 Comments AAROM quad set Supine Exercise Name quad set Side left Reps/Minutes x20 Comments max cueing- verbal and tactile (given for HEP, mother edu) bridge Supine Exercise Name w/approximation & assist w/LE position Reps/Minutes 12 Sitting Exercises knee extension Sitting Exercise Name AAROM SAQ Side left Reps/Minutes x10 Standing Exercises sit to stand Standing Exercise Name sit to stand w/use of quad cane Comments lowest setting on large individual black table- firm& R foot on yellow disc Gait Training Gait Activity Quad cane Description outdoors on pavement, slight grade Device Used quad cane Level of Assistance SBA Distance/Duration 50 ft Treatment Focus quad activation, step length, sequencing PT-OP-S Aquatic Treatment Start: 11/17/18 15:12 Freq: Status: Active Protocol: Document 11/24/18 12:30 SUNITHA (Rec: 11/24/18 15:57 LJ [email or web address]) Aquatics Treatment Pool Entry/Exit Pool Entry/Exit Method Stairs Assistance Moderate Assistance Comments manual cuing for hand placement on rails and directing body alignment to fs Water Walking Monster Walk Water Level Chest Level Walking Equipment lg noodle, M belt Level of Assistance Moderate Assistance Comments manual assist LEs (L>R) Sideways Water Level Chest Level Walking Equipment lg noodle, M belt Level of Assistance Minimal Assistance Comments cues for toe and body alignment Backwards Water Level Chest Level Walking Equipment lg noodle, M belt Level of Assistance Moderate Assistance Comments at wall with handhold initially, cues for body alignment Forwards Water Level Chest Level Walking Equipment lg noodle, M belt Level of Assistance Moderate Assistance Comments at wall with handhold initially Lower Extremity Exercises HS curls, Knee extension Details at wall with handhold Body Position Standing Water Level Waist Level Reps/Duration 15 bilat Comments manual assist LEs (L>R) hip flex/ext, ab/ad Details at wall with handhold Body Position Standing Water Level Waist Level Reps/Duration 15 bilat ea Comments ModA for LLE Upper Extremity Exercises figure 8 in coronal plane with UE paddles Details no belt Body Position Standing Water Level Chest Level Reps/Duration 10 Comments manual assist at trunk horiz ab/ad, lateral ab/ad, flex/ext Details Removed belt Body Position Standing Water Level Waist Level Equipment UE paddles Reps/Duration 10 ea Comments manual and verbal cuing Balance SLS bilat Body Position Standing Water Level Chest Level Reps/Duration sm squat Comments manual bracing for LLE [place] Activities [place] Activities Bicycle Equipment blue float Duration 12 min Comments pt first time in deep water. Occasionally pt peddled backwards . No use of UEs other than hanging onto PT or float Pediatric/Neuro Gross Motor Coordination Activities PNF D1,D2 UE PNF D1 LE 10 bilat Manual assist and cuing PT-OP-T Assessment and Plan Start: 11/05/18 18:49 Freq: Status: Active Protocol: Document 11/24/18 12:30 LJ (Rec: 11/24/18 15:57 LJ [email or web address]) Physical Therapy Assessment Goals SHEA Short Term Goal (STG) Pt will improve score to 30/56 to demonstrate improved balance & safety. STG Duration 12/20/18 Residential Goal (LTG) Pt will improve score to >35/ 56 in order to demonstrate being safe with AD. LTG Duration 02/06/19 tinnetti Short Term Goal (STG) Pt will improve score to 19/28 in order to dec risk for falls STG Duration 12/20/18 Residential Goal (LTG) Pt will improve score to 24/28 in order to be at low risk for falls LTG Duration 02/06/19 gait Short Term Goal (STG) Pt will be able to amb with SPC safely STG Duration 12/20/18 Residential Goal (LTG) Pt will be able to amb with DAFO and limited cane usage for balance with overall good B step through and foot clearance. LTG Duration 02/06/19 Assessment Summary Assessment Pt with increased confidence and better coordination during water walking activities. Has right hip anterior rotation during side walking and requires manual assist to attain neutral positioning with walking activities. Pt performed well in deep water increasing intensity of LE movement. Physical Therapy Plan Frequency and Duration Frequency of Treatment 2x/Week Duration of Treatment 3 months Plan of Care Start Date 11/06/18 Plan of Care End Date 02/06/19 Therapeutic Interventions Therapeutic Interventions Aquatic Therapy Balance Training Coordination Training Gait Training Home Exercise Program Manual Therapy Neuromuscular Re-education Orthotic/Prosthetic Management Patient/Caregiver Education Self-Care/Home Management Taping Therapeutic Activities Therapeutic Exercises Next Visit Focus/Plan Next Note Type Treatment Note Next Visit Plan prog. gait and LLE strengthening as tolerated. Continue with deep water bicycling and running incorprorating UE movement as well.
--- NOTE | 2018-11-28 12:10 | PT.OTN ---
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) Epilepsy, unspecified, intractable, without status epilepticus (11/28/18) Hemiplegia, unspecified affecting left nondominant side (11/28/18) Other reduced mobility (11/28/18) Physical Therapy Treatment Note PT-OP-A Visit Information Start: 11/05/18 18:49 Freq: Status: Active Protocol: Document 11/28/18 12:10 [facility] (Rec: 11/28/18 13:01 [facility] [email or web address]) Out-Patient Physical Therapy Visit Information Visit Information Visit Type Treatment Note Visit Start Time 12:10 Visit Stop Time 12:45 Total Visit Minutes 35 Visit Number 6 Number of BUILDING RIGGER Visits 0 Evaluation Information Evaluation Date 11/06/18 PT-OP-B Current Condition Start: 11/05/18 18:49 Freq: Status: Active Protocol: Document 11/06/18 13:45 [facility] (Rec: 11/06/18 14:32 [facility] [id number]) Current Condition History of Current Condition Onset Date 09/18/18 Current 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 She had a R ant temporal lobe resection in 10/19. Pt could walk without AD prior to surgery and was indep with ADLs. Pt has had weakness on L side since she was an infant so she has worn DAFO since then. At this time the dynamic aspect is stabilized. Pt returned home from inpatient rehab 10/31. Mom helps pt bath with bath chair. Mom helps some w/L side dressing but she is able to do indep also. Pt has selective mutism. Treatment Goals Patient/Caregiver Goals Be able to ride her bike. Be able to get around a lot more. PT-OP-C Subjective Start: 11/05/18 18:49 Freq: Status: Active Protocol: Document 11/28/18 12:10 [facility] (Rec: 11/28/18 13:01 [facility] [email or web address]) OP-PT Subjective Patient Comments Patient Comments Pt's mother reports that pt has been doing well and she is enjoying therapy. PT-OP-D Balance Start: 11/05/18 18:51 Freq: Status: Active Protocol: Document 11/06/18 13:45 [facility] (Rec: 11/06/18 18:04 [facility] [email or web address]) Balance Tests [place] Balance Test [place] Balance Test Score 20 [place] Impairment Rating 60 to 79% Impaired (Score 12- 22) PT-OP-E Functional Tests Start: 11/05/18 18:51 Freq: Status: Active Protocol: Document 11/06/18 13:45 [facility] (Rec: 11/06/18 18:04 [facility] [email or web address]) Functional Tests Five Times Sit to Stand Test Score 33 sec Comments use of UE Timed Up and Go (TUG) Score 39 sec Tinetti Balance and Gait Assessment Composite Score 11 Composite Score Impairment Rating 60 to <80% Impaired (Score 6- 11) PT-OP-G Mobility & Gait Start: 11/05/18 18:51 Freq: Status: Active Protocol: Document 11/06/18 13:45 [facility] (Rec: 11/06/18 14:32 [facility] [id number]) OP Mobility Evaluation Bed Mobility Supine to and from Sit Pt required assist w/LLE for bed mobility to L side of bed. OP Gait Assessment Comments Gait Comments Amb w/NBQC in R hand with dec stance time on LLE and dec step length of RLE & clearance . PT-OP-M Strength Start: 11/05/18 18:51 Freq: Status: Active Protocol: Document 11/06/18 13:45 [facility] (Rec: 11/06/18 14:32 [facility] [id number]) Hip Strength Hip Manual Muscle Testing Right Flexion (L2) 4 Good External Rotation 4 Good Internal Rotation 4 Good Left Flexion (L2) 1 Trace Extension (S1) 2- Poor- Abduction 1 Trace Knee Strength Knee Manual Muscle Testing Right Flexion (S2) 4 Good Extension (L3) 4 Good Left Flexion (S2) 1 Trace Extension (L3) 1 Trace Ankle/Foot Strength Ankle and Foot Manual Muscle Testing Right Dorsiflexion (L4) 5 Normal Plantarflexion (S1) 5 Normal Comments tested seated Left Dorsiflexion (L4) 0 Zero PT-OP-Q Treatments Start: 11/05/18 18:49 Freq: Status: Active Protocol: Document 11/28/18 12:10 [facility] (Rec: 11/28/18 13:01 [facility] [email or web address]) Cardio Equipment Recumbent Elliptical ([place]) Duration (Minutes) 6 Resistance 1 Seat Position 5 Other assist with LLE alignment Gym Equipment Shuttle Recovery Bilateral Squats Details assist with LLE Resistance 25 lbs Shuttle Recovery Platform Stable Reps/Time x15 Therapeutic Exercises Supine Exercises Hip IR/ER roll in/out Side left Reps/Minutes x10 Comments AAROM quad set Supine Exercise Name quad set Side left Reps/Minutes x20 Comments max cueing- verbal and tactile (given for HEP, mother edu) bridge Supine Exercise Name w/approximation & assist w/LE position Reps/Minutes 14 Sitting Exercises knee flexion Sitting Exercise Name AAROM Side left Reps/Minutes x10 knee extension Sitting Exercise Name AAROM SAQ Side left Reps/Minutes x10 PT-OP-S Aquatic Treatment Start: 11/17/18 15:12 Freq: Status: Active Protocol: Document 11/24/18 12:30 [facility] (Rec: 11/24/18 15:57 [facility] [email or web address]) Aquatics Treatment Pool Entry/Exit Pool Entry/Exit Method Stairs Assistance Moderate Assistance Comments manual cuing for hand placement on rails and directing body alignment to fs Water Walking Monster Walk Water Level Chest Level Walking Equipment lg noodle, M belt Level of Assistance Moderate Assistance Comments manual assist LEs (L>R) Sideways Water Level Chest Level Walking Equipment lg noodle, M belt Level of Assistance Minimal Assistance Comments cues for toe and body alignment Backwards Water Level Chest Level Walking Equipment lg noodle, M belt Level of Assistance Moderate Assistance Comments at wall with handhold initially, cues for body alignment Forwards Water Level Chest Level Walking Equipment lg noodle, M belt Level of Assistance Moderate Assistance Comments at wall with handhold initially Lower Extremity Exercises HS curls, Knee extension Details at wall with handhold Body Position Standing Water Level Waist Level Reps/Duration 15 bilat Comments manual assist LEs (L>R) hip flex/ext, ab/ad Details at wall with handhold Body Position Standing Water Level Waist Level Reps/Duration 15 bilat ea Comments ModA for LLE Upper Extremity Exercises figure 8 in coronal plane with UE paddles Details no belt Body Position Standing Water Level Chest Level Reps/Duration 10 Comments manual assist at trunk horiz ab/ad, lateral ab/ad, flex/ext Details Removed belt Body Position Standing Water Level Waist Level Equipment UE paddles Reps/Duration 10 ea Comments manual and verbal cuing Balance SLS bilat Body Position Standing Water Level Chest Level Reps/Duration sm squat Comments manual bracing for LLE [place] Activities [place] Activities Bicycle Equipment blue float Duration 12 min Comments pt first time in deep water. Occasionally pt peddled backwards . No use of UEs other than hanging onto PT or float Pediatric/Neuro Gross Motor Coordination Activities PNF D1,D2 UE PNF D1 LE 10 bilat Manual assist and cuing PT-OP-T Assessment and Plan Start: 11/05/18 18:49 Freq: Status: Active Protocol: Document 11/28/18 12:10 [facility] (Rec: 11/28/18 13:01 [facility] [email or web address]) Physical Therapy Assessment Assessment Summary Assessment Pt with slight improvement of SAQ angle from 90-70 degrees before needing AAROM, but unable to eccentrically control the knee upon return to 90 degrees knee flexion. Physical Therapy Plan Frequency and Duration Frequency of Treatment 2x/Week Duration of Treatment 3 months Plan of Care Start Date 11/06/18 Plan of Care End Date 02/06/19 Next Visit Focus/Plan Next Note Type Treatment Note Next Visit Plan cont with aquatic therapy as tolerated; land based gait and LE strengthening
--- NOTE | 2018-12-05 13:38 | PT.OTN ---
Current Diagnoses Selective mutism (12/05/18) Epilepsy, unspecified, intractable, without status epilepticus (12/05/18) Hemiplegia, unspecified affecting left nondominant side (12/05/18) Other reduced mobility (12/05/18) Physical Therapy Treatment Note PT-OP-A Visit Information Start: 11/05/18 18:49 Freq: Status: Active Protocol: Document 12/05/18 13:15 [facility] (Rec: 12/05/18 13:38 [facility] [email or web address]) Out-Patient Physical Therapy Visit Information Visit Information Visit Type Treatment Note Visit Start Time 12:30 Visit Stop Time 13:14 Total Visit Minutes 44 Visit Number 7 Number of ROVING SIZER Visits 0 PT-OP-B Current Condition Start: 11/05/18 18:49 Freq: Status: Active Protocol: Document 11/06/18 13:45 [facility] (Rec: 11/06/18 14:32 [facility] [id number]) Current Condition History of Current Condition Onset Date 09/18/18 Current 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 She had a R ant temporal lobe resection in 10/19. Pt could walk without AD prior to surgery and was indep with ADLs. Pt has had weakness on L side since she was an infant so she has worn DAFO since then. At this time the dynamic aspect is stabilized. Pt returned home from inpatient rehab 10/31. Mom helps pt bath with bath chair. Mom helps some w/L side dressing but she is able to do indep also. Pt has selective mutism. Treatment Goals Patient/Caregiver Goals Be able to ride her bike. Be able to get around a lot more. PT-OP-C Subjective Start: 11/05/18 18:49 Freq: Status: Active Protocol: Document 12/05/18 13:15 [facility] (Rec: 12/05/18 13:38 [facility] [email or web address]) OP-PT Subjective Patient Comments Patient Comments Pt's mother reports that Mona had a seizure since last visit and had 2 falls, one of which was outside and pt has cuts and bruising on R LE. PT-OP-D Balance Start: 11/05/18 18:51 Freq: Status: Active Protocol: Document 11/06/18 13:45 [facility] (Rec: 11/06/18 18:04 [facility] [email or web address]) Balance Tests [place] Balance Test [place] Balance Test Score 20 [place] Impairment Rating 60 to 79% Impaired (Score 12- 22) PT-OP-E Functional Tests Start: 11/05/18 18:51 Freq: Status: Active Protocol: Document 11/06/18 13:45 [facility] (Rec: 11/06/18 18:04 [facility] [email or web address]) Functional Tests Five Times Sit to Stand Test Score 33 sec Comments use of UE Timed Up and Go (TUG) Score 39 sec Tinetti Balance and Gait Assessment Composite Score 11 Composite Score Impairment Rating 60 to <80% Impaired (Score 6- 11) PT-OP-G Mobility & Gait Start: 11/05/18 18:51 Freq: Status: Active Protocol: Document 11/06/18 13:45 [facility] (Rec: 11/06/18 14:32 [facility] [id number]) OP Mobility Evaluation Bed Mobility Supine to and from Sit Pt required assist w/LLE for bed mobility to L side of bed. OP Gait Assessment Comments Gait Comments Amb w/NBQC in R hand with dec stance time on LLE and dec step length of RLE & clearance . PT-OP-M Strength Start: 11/05/18 18:51 Freq: Status: Active Protocol: Document 11/06/18 13:45 [facility] (Rec: 11/06/18 14:32 [facility] [id number]) Hip Strength Hip Manual Muscle Testing Right Flexion (L2) 4 Good External Rotation 4 Good Internal Rotation 4 Good Left Flexion (L2) 1 Trace Extension (S1) 2- Poor- Abduction 1 Trace Knee Strength Knee Manual Muscle Testing Right Flexion (S2) 4 Good Extension (L3) 4 Good Left Flexion (S2) 1 Trace Extension (L3) 1 Trace Ankle/Foot Strength Ankle and Foot Manual Muscle Testing Right Dorsiflexion (L4) 5 Normal Plantarflexion (S1) 5 Normal Comments tested seated Left Dorsiflexion (L4) 0 Zero PT-OP-Q Treatments Start: 11/05/18 18:49 Freq: Status: Active Protocol: Document 12/05/18 13:15 [facility] (Rec: 12/05/18 13:38 [facility] [email or web address]) Therapeutic Exercises Supine Exercises hip ABD Side left Reps/Minutes 10x gastroc/soleus stretch Side left Reps/Minutes 3x 30 sec each Comments manual hip adduction Supine Exercise Name ball squeeze isometric hip adduction Side bilateral Equipment Used small therapy ball Reps/Minutes x10 Comments 3 sec hold Hip IR/ER roll in/out Side left Reps/Minutes x10 Comments AAROM quad set Supine Exercise Name quad set Side left Reps/Minutes x20 Comments max cueing- verbal and tactile (given for HEP, mother edu) bridge Supine Exercise Name w/approximation & assist w/LE position Reps/Minutes 12 Sitting Exercises knee flexion Sitting Exercise Name AAROM Side left Reps/Minutes x10 knee extension Sitting Exercise Name AAROM SAQ Side left Reps/Minutes x10 Standing Exercises sit to stand Standing Exercise Name sit to stand w/use of quad cane Reps/Minutes 10x Comments lowest setting on large individual black table- firm& R foot on yellow disc Gait Training Gait Activity Quad cane Description indoors-level surface Device Used quad cane Level of Assistance SBA-CGA Distance/Duration 100 feet Treatment Focus quad activation, step length, sequencing Comments Cues for slowing down, safe use of quad cane PT-OP-S Aquatic Treatment Start: 11/17/18 15:12 Freq: Status: Active Protocol: Document 11/24/18 12:30 [facility] (Rec: 11/24/18 15:57 [facility] [email or web address]) Aquatics Treatment Pool Entry/Exit Pool Entry/Exit Method Stairs Assistance Moderate Assistance Comments manual cuing for hand placement on rails and directing body alignment to fs Water Walking Monster Walk Water Level Chest Level Walking Equipment lg noodle, M belt Level of Assistance Moderate Assistance Comments manual assist LEs (L>R) Sideways Water Level Chest Level Walking Equipment lg noodle, M belt Level of Assistance Minimal Assistance Comments cues for toe and body alignment Backwards Water Level Chest Level Walking Equipment lg noodle, M belt Level of Assistance Moderate Assistance Comments at wall with handhold initially, cues for body alignment Forwards Water Level Chest Level Walking Equipment lg noodle, M belt Level of Assistance Moderate Assistance Comments at wall with handhold initially Lower Extremity Exercises HS curls, Knee extension Details at wall with handhold Body Position Standing Water Level Waist Level Reps/Duration 15 bilat Comments manual assist LEs (L>R) hip flex/ext, ab/ad Details at wall with handhold Body Position Standing Water Level Waist Level Reps/Duration 15 bilat ea Comments ModA for LLE Upper Extremity Exercises figure 8 in coronal plane with UE paddles Details no belt Body Position Standing Water Level Chest Level Reps/Duration 10 Comments manual assist at trunk horiz ab/ad, lateral ab/ad, flex/ext Details Removed belt Body Position Standing Water Level Waist Level Equipment UE paddles Reps/Duration 10 ea Comments manual and verbal cuing Balance SLS bilat Body Position Standing Water Level Chest Level Reps/Duration sm squat Comments manual bracing for LLE Pillow Activities Pillow Activities Bicycle Equipment blue float Duration 12 min Comments pt first time in deep water. Occasionally pt peddled backwards . No use of UEs other than hanging onto PT or float Pediatric/Neuro Gross Motor Coordination Activities PNF D1,D2 UE PNF D1 LE 10 bilat Manual assist and cuing PT-OP-T Assessment and Plan Start: 11/05/18 18:49 Freq: Status: Active Protocol: Document 12/05/18 13:15 [facility] (Rec: 12/05/18 13:38 [facility] [email or web address]) Physical Therapy Assessment Assessment Summary Assessment Inspected LLE AFO as pt reported some pain under first met head. AFO fits well with no shearing or rubbing, no redness on patient's foot. Recommended possible padding / cushion as this is major Wbing surface of foot. Pt's mom plans to talk to surveillance camera technician. Pt tolerated seated and supine exercise well,declined use of recumbent stepper of bike today, noting fatigue. Physical Therapy Plan Next Visit Focus/Plan Next Note Type Treatment Note Next Visit Plan prog. gait and LLE strengthening as tolerated. Continue with deep water bicycling and running incorprorating UE movement as well.
--- NOTE | 2018-12-08 14:17 | PT.OTN ---
Current Diagnoses Selective mutism (12/05/18) Epilepsy, unspecified, intractable, without status epilepticus (12/05/18) Hemiplegia, unspecified affecting left nondominant side (12/05/18) Other reduced mobility (12/05/18) Physical Therapy Treatment Note PT-OP-A Visit Information Start: 11/05/18 18:49 Freq: Status: Active Protocol: Document 12/05/18 13:15 SA (Rec: 12/05/18 13:38 SA [email or web address]) Out-Patient Physical Therapy Visit Information Visit Information Visit Type Treatment Note Visit Start Time 12:30 Visit Stop Time 13:14 Total Visit Minutes 44 Visit Number 7 Number of DRAWBRIDGE TENDER Visits 0 PT-OP-B Current Condition Start: 11/05/18 18:49 Freq: Status: Active Protocol: Document 11/06/18 13:45 LR (Rec: 11/06/18 14:32 [facility] [id number]) Current Condition History of Current Condition Onset Date 09/18/18 Current 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 She had a R ant temporal lobe resection in 10/19. Pt could walk without AD prior to surgery and was indep with ADLs. Pt has had weakness on L side since she was an infant so she has worn DAFO since then. At this time the dynamic aspect is stabilized. Pt returned home from inpatient rehab 10/31. Mom helps pt bath with bath chair. Mom helps some w/L side dressing but she is able to do indep also. Pt has selective mutism. Treatment Goals Patient/Caregiver Goals Be able to ride her bike. Be able to get around a lot more. PT-OP-C Subjective Start: 11/05/18 18:49 Freq: Status: Active Protocol: Document 12/05/18 13:15 SA (Rec: 12/05/18 13:38 SA [email or web address]) OP-PT Subjective Patient Comments Patient Comments Pt's mother reports that Mona had a seizure since last visit and had 2 falls, one of which was outside and pt has cuts and bruising on R LE. PT-OP-D Balance Start: 11/05/18 18:51 Freq: Status: Active Protocol: Document 11/06/18 13:45 [facility] (Rec: 11/06/18 18:04 [facility] [email or web address]) Balance Tests Ventura Balance Test Ventura Balance Test Score 20 Ventura Impairment Rating 60 to 79% Impaired (Score 12- 22) PT-OP-E Functional Tests Start: 11/05/18 18:51 Freq: Status: Active Protocol: Document 11/06/18 13:45 [facility] (Rec: 11/06/18 18:04 [facility] [email or web address]) Functional Tests Five Times Sit to Stand Test Score 33 sec Comments use of UE Timed Up and Go (TUG) Score 39 sec Tinetti Balance and Gait Assessment Composite Score 11 Composite Score Impairment Rating 60 to <80% Impaired (Score 6- 11) PT-OP-G Mobility & Gait Start: 11/05/18 18:51 Freq: Status: Active Protocol: Document 11/06/18 13:45 [facility] (Rec: 11/06/18 14:32 [facility] [id number]) OP Mobility Evaluation Bed Mobility Supine to and from Sit Pt required assist w/LLE for bed mobility to L side of bed. OP Gait Assessment Comments Gait Comments Amb w/NBQC in R hand with dec stance time on LLE and dec step length of RLE & clearance . PT-OP-M Strength Start: 11/05/18 18:51 Freq: Status: Active Protocol: Document 11/06/18 13:45 [facility] (Rec: 11/06/18 14:32 [facility] [id number]) Hip Strength Hip Manual Muscle Testing Right Flexion (L2) 4 Good External Rotation 4 Good Internal Rotation 4 Good Left Flexion (L2) 1 Trace Extension (S1) 2- Poor- Abduction 1 Trace Knee Strength Knee Manual Muscle Testing Right Flexion (S2) 4 Good Extension (L3) 4 Good Left Flexion (S2) 1 Trace Extension (L3) 1 Trace Ankle/Foot Strength Ankle and Foot Manual Muscle Testing Right Dorsiflexion (L4) 5 Normal Plantarflexion (S1) 5 Normal Comments tested seated Left Dorsiflexion (L4) 0 Zero PT-OP-Q Treatments Start: 11/05/18 18:49 Freq: Status: Active Protocol: Document 12/05/18 13:15 SA (Rec: 12/05/18 13:38 SA [email or web address]) Therapeutic Exercises Supine Exercises hip ABD Side left Reps/Minutes 10x gastroc/soleus stretch Side left Reps/Minutes 3x 30 sec each Comments manual hip adduction Supine Exercise Name ball squeeze isometric hip adduction Side bilateral Equipment Used small therapy ball Reps/Minutes x10 Comments 3 sec hold Hip IR/ER roll in/out Side left Reps/Minutes x10 Comments AAROM quad set Supine Exercise Name quad set Side left Reps/Minutes x20 Comments max cueing- verbal and tactile (given for HEP, mother edu) bridge Supine Exercise Name w/approximation & assist w/LE position Reps/Minutes 12 Sitting Exercises knee flexion Sitting Exercise Name AAROM Side left Reps/Minutes x10 knee extension Sitting Exercise Name AAROM SAQ Side left Reps/Minutes x10 Standing Exercises sit to stand Standing Exercise Name sit to stand w/use of quad cane Reps/Minutes 10x Comments lowest setting on large individual black table- firm& R foot on yellow disc Gait Training Gait Activity Quad cane Description indoors-level surface Device Used quad cane Level of Assistance SBA-CGA Distance/Duration 100 feet Treatment Focus quad activation, step length, sequencing Comments Cues for slowing down, safe use of quad cane PT-OP-S Aquatic Treatment Start: 11/17/18 15:12 Freq: Status: Active Protocol: Document 11/24/18 12:30 SUNITHA (Rec: 11/24/18 15:57 SUNITHA [email or web address]) Aquatics Treatment Pool Entry/Exit Pool Entry/Exit Method Stairs Assistance Moderate Assistance Comments manual cuing for hand placement on rails and directing body alignment to fs Water Walking Monster Walk Water Level Chest Level Walking Equipment lg noodle, M belt Level of Assistance Moderate Assistance Comments manual assist LEs (L>R) Sideways Water Level Chest Level Walking Equipment lg noodle, M belt Level of Assistance Minimal Assistance Comments cues for toe and body alignment Backwards Water Level Chest Level Walking Equipment lg noodle, M belt Level of Assistance Moderate Assistance Comments at wall with handhold initially, cues for body alignment Forwards Water Level Chest Level Walking Equipment lg noodle, M belt Level of Assistance Moderate Assistance Comments at wall with handhold initially Lower Extremity Exercises HS curls, Knee extension Details at wall with handhold Body Position Standing Water Level Waist Level Reps/Duration 15 bilat Comments manual assist LEs (L>R) hip flex/ext, ab/ad Details at wall with handhold Body Position Standing Water Level Waist Level Reps/Duration 15 bilat ea Comments ModA for LLE Upper Extremity Exercises figure 8 in coronal plane with UE paddles Details no belt Body Position Standing Water Level Chest Level Reps/Duration 10 Comments manual assist at trunk horiz ab/ad, lateral ab/ad, flex/ext Details Removed belt Body Position Standing Water Level Waist Level Equipment UE paddles Reps/Duration 10 ea Comments manual and verbal cuing Balance SLS bilat Body Position Standing Water Level Chest Level Reps/Duration sm squat Comments manual bracing for LLE Swan Activities Swan Activities Bicycle Equipment blue float Duration 12 min Comments pt first time in deep water. Occasionally pt peddled backwards . No use of UEs other than hanging onto PT or float Pediatric/Neuro Gross Motor Coordination Activities PNF D1,D2 UE PNF D1 LE 10 bilat Manual assist and cuing PT-OP-T Assessment and Plan Start: 11/05/18 18:49 Freq: Status: Active Protocol: Document 12/08/18 14:16 SUNITHA (Rec: 12/08/18 14:17 SUNITHA [email or web address]) Physical Therapy Plan Next Visit Focus/Plan Next Visit Plan No Show-no reason given
--- NOTE | 2018-12-12 15:20 | PT.OTN ---
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) Epilepsy, unspecified, intractable, without status epilepticus (12/12/18) Hemiplegia, unspecified affecting left nondominant side (12/12/18) Other reduced mobility (12/12/18) Physical Therapy Treatment Note PT-OP-A Visit Information Start: 11/05/18 18:49 Freq: Status: Active Protocol: Document 12/12/18 15:20 DLM (Rec: 12/12/18 16:39 DL [id number]) Out-Patient Physical Therapy Visit Information Visit Information Visit Type Treatment Note Visit Start Time 15:20 Visit Stop Time 16:02 Total Visit Minutes 42 Visit Number 8 Number of FORECLOSURE HOME INSPECTOR Visits 0 Evaluation Information Evaluation Date 11/06/18 Precautions Precautions seizures PT-OP-B Current Condition Start: 11/05/18 18:49 Freq: Status: Active Protocol: Document 11/06/18 13:45 [facility] (Rec: 11/06/18 14:32 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 She had a R ant temporal lobe resection in 10/19. Pt could walk without AD prior to surgery and was indep with ADLs. Pt has had weakness on L side since she was an so she has worn DAFO since then. At this time the dynamic aspect is stabilized. Pt returned home from inpatient rehab 10/31. Mom helps pt bath with bath chair. Mom helps some w/L side dressing but she is able to do indep also. Pt has selective mutism. Treatment Goals Patient/Caregiver Goals Be able to ride her bike. Be able to get around a lot more. PT-OP-C Subjective Start: 11/05/18 18:49 Freq: Status: Active Protocol: Document 12/12/18 15:20 DLM (Rec: 12/12/18 16:39 DLM [id number]) OP-PT Subjective Patient Comments Patient Comments Her Mother reports they have been working on her exercises at home. PT-OP-D Balance Start: 11/05/18 18:51 Freq: Status: Active Protocol: Document 11/06/18 13:45 [facility] (Rec: 11/06/18 18:04 [facility] [id number]) Balance Tests Shea Balance Test Shea Balance Test Score 20 Shea Impairment Rating 60 to 79% Impaired (Score 12- 22) PT-OP-E Functional Tests Start: 11/05/18 18:51 Freq: Status: Active Protocol: Document 11/06/18 13:45 [facility] (Rec: 11/06/18 18:04 [facility] [id number]) Functional Tests Five Times Sit to Stand Test Score 33 sec Comments use of UE Timed Up and Go (TUG) Score 39 sec Tinetti Balance and Gait Assessment Composite Score 11 Composite Score Impairment Rating 60 to <80% Impaired (Score 6- 11) PT-OP-G Mobility & Gait Start: 11/05/18 18:51 Freq: Status: Active Protocol: Document 11/06/18 13:45 [facility] (Rec: 11/06/18 14:32 [facility] [id number]) OP Mobility Evaluation Bed Mobility Supine to and from Sit Pt required assist w/LLE for bed mobility to L side of bed. OP Gait Assessment Comments Gait Comments Amb w/NBQC in R hand with dec stance time on LLE and dec step length of RLE & clearance . PT-OP-M Strength Start: 11/05/18 18:51 Freq: Status: Active Protocol: Document 11/06/18 13:45 [facility] (Rec: 11/06/18 14:32 [facility] [id number]) Hip Strength Hip Manual Muscle Testing Right Flexion (L2) 4 Good External Rotation 4 Good Internal Rotation 4 Good Left Flexion (L2) 1 Trace Extension (S1) 2- Poor- Abduction 1 Trace Knee Strength Knee Manual Muscle Testing Right Flexion (S2) 4 Good Extension (L3) 4 Good Left Flexion (S2) 1 Trace Extension (L3) 1 Trace Ankle/Foot Strength Ankle and Foot Manual Muscle Testing Right Dorsiflexion (L4) 5 Normal Plantarflexion (S1) 5 Normal Comments tested seated Left Dorsiflexion (L4) 0 Zero PT-OP-Q Treatments Start: 11/05/18 18:49 Freq: Status: Active Protocol: Document 12/12/18 15:20 DLM (Rec: 12/12/18 16:39 DLM [id number]) Therapeutic Exercises Supine Exercises SAQ Supine Exercise Name over bolster Side left Resistance active Reps/Minutes 2 x 10 reps Comments visual target helps Hip ABduction Supine Exercise Name hooklying Side bilateral Resistance L2 exercise band Reps/Minutes x 10 reps hip ABD Supine Exercise Name full ROM Side left Reps/Minutes 10 reps gastroc/soleus stretch Side left Reps/Minutes 3x 30 sec each Comments manual hip adduction Supine Exercise Name ball squeeze isometric hip adduction Side bilateral Equipment Used small therapy ball Reps/Minutes x10 Comments 3 sec hold Hip IR/ER roll in/out Side left Reps/Minutes 2 x10 reps Comments AAROM bridge Supine Exercise Name w/approximation & assist w/LE position Reps/Minutes 15 reps Sitting Exercises knee flexion Sitting Exercise Name manual resisted Side left Reps/Minutes x10 knee extension Sitting Exercise Name long arc quad Side left Reps/Minutes 10 reps Comments use visual target for foot Standing Exercises sit to stand Standing Exercise Name sit to stand w/use of quad cane Equipment Used second set with step under right foot Reps/Minutes 2 x 10 reps Comments lowest setting on large individual black table- firm& R foot on yellow disc Gait Training Gait Activity Quad cane Description indoors-level surface Device Used quad cane Level of Assistance SBA-CGA Distance/Duration 100 feet Treatment Focus quad activation, step length, left foot flat Comments Cues for slowing down, safe use of quad cane PT-OP-S Aquatic Treatment Start: 11/17/18 15:12 Freq: Status: Active Protocol: Document 11/24/18 12:30 [facility] (Rec: 11/24/18 15:57 LJ [email or web address]) Aquatics Treatment Pool Entry/Exit Pool Entry/Exit Method Stairs Assistance Moderate Assistance Comments manual cuing for hand placement on rails and directing body alignment to fs Water Walking Monster Walk Water Level Chest Level Walking Equipment lg noodle, M belt Level of Assistance Moderate Assistance Comments manual assist LEs (L>R) Sideways Water Level Chest Level Walking Equipment lg noodle, M belt Level of Assistance Minimal Assistance Comments cues for toe and body alignment Backwards Water Level Chest Level Walking Equipment lg noodle, M belt Level of Assistance Moderate Assistance Comments at wall with handhold initially, cues for body alignment Forwards Water Level Chest Level Walking Equipment lg noodle, M belt Level of Assistance Moderate Assistance Comments at wall with handhold initially Lower Extremity Exercises HS curls, Knee extension Details at wall with handhold Body Position Standing Water Level Waist Level Reps/Duration 15 bilat Comments manual assist LEs (L>R) hip flex/ext, ab/ad Details at wall with handhold Body Position Standing Water Level Waist Level Reps/Duration 15 bilat ea Comments ModA for LLE Upper Extremity Exercises figure 8 in coronal plane with UE paddles Details no belt Body Position Standing Water Level Chest Level Reps/Duration 10 Comments manual assist at trunk horiz ab/ad, lateral ab/ad, flex/ext Details Removed belt Body Position Standing Water Level Waist Level Equipment UE paddles Reps/Duration 10 ea Comments manual and verbal cuing Balance SLS bilat Body Position Standing Water Level Chest Level Reps/Duration sm squat Comments manual bracing for LLE Peridot Activities Peridot Activities Bicycle Equipment blue float Duration 12 min Comments pt first time in deep water. Occasionally pt peddled backwards . No use of UEs other than hanging onto PT or float Pediatric/Neuro Gross Motor Coordination Activities PNF D1,D2 UE PNF D1 LE 10 bilat Manual assist and cuing PT-OP-T Assessment and Plan Start: 11/05/18 18:49 Freq: Status: Active Protocol: Document 12/12/18 15:20 DLM (Rec: 12/12/18 16:39 DLM [id number]) Physical Therapy Assessment Goals SHEA Short Term Goal (STG) Pt will improve score to 30/56 to demonstrate improved balance & safety. STG Duration 12/20/18 Alf Goal (LTG) Pt will improve score to >35/ 56 in order to demonstrate being safe with AD. LTG Duration 02/06/19 tinnetti Short Term Goal (STG) Pt will improve score to 19/28 in order to dec risk for falls STG Duration 12/20/18 Alf Goal (LTG) Pt will improve score to 24/28 in order to be at low risk for falls LTG Duration 02/06/19 gait Short Term Goal (STG) Pt will be able to amb with SPC safely STG Duration 12/20/18 Alf Goal (LTG) Pt will be able to amb with DAFO and limited cane usage for balance with overall good B step through and foot clearance. LTG Duration 02/06/19 Physical Therapy Plan Frequency and Duration Frequency of Treatment 2x/Week Duration of Treatment 3 months Plan of Care Start Date 11/06/18 Plan of Care End Date 02/06/19 Therapeutic Interventions Therapeutic Interventions Aquatic Therapy Balance Training Coordination Training Gait Training Home Exercise Program Manual Therapy Neuromuscular Re-education Orthotic/Prosthetic Management Patient/Caregiver Education Self-Care/Home Management Taping Therapeutic Activities Therapeutic Exercises Next Visit Focus/Plan Next Note Type Treatment Note Next Visit Plan add standing LE exercises
--- NOTE | 2018-12-15 16:08 | PT.OTN ---
Current Diagnoses Selective mutism (12/15/18) Epilepsy, unspecified, intractable, without status epilepticus (12/15/18) Hemiplegia, unspecified affecting left nondominant side (12/15/18) Other reduced mobility (12/15/18) Physical Therapy Treatment Note PT-OP-A Visit Information Start: 11/05/18 18:49 Freq: Status: Active Protocol: Document 12/15/18 11:45 [facility] (Rec: 12/15/18 16:08 LJ [email or web address]) Out-Patient Physical Therapy Visit Information Visit Information Visit Type Aquatic Treatment Note Visit Start Time 11:45 Visit Stop Time 12:30 Total Visit Minutes 45 Visit Number 9 Number of CLASSIFICATION INSPECTOR Visits 1 Precautions Precautions seizures PT-OP-B Current Condition Start: 11/05/18 18:49 Freq: Status: Active Protocol: Document 11/06/18 13:45 [facility] (Rec: 11/06/18 14:32 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 She had a R ant temporal lobe resection in 10/19. Pt could walk without AD prior to surgery and was indep with ADLs. Pt has had weakness on L side since she was an infant so she has worn DAFO since then. At this time the dynamic aspect is stabilized. Pt returned home from inpatient rehab 10/31. Mom helps pt bath with bath chair. Mom helps some w/L side dressing but she is able to do indep also. Pt has selective mutism. Treatment Goals Patient/Caregiver Goals Be able to ride her bike. Be able to get around a lot more. PT-OP-C Subjective Start: 11/05/18 18:49 Freq: Status: Active Protocol: Document 12/15/18 11:45 [facility] (Rec: 12/15/18 16:08 LJ [id number]) OP-PT Subjective Patient Comments Patient Comments Pt states she likes exercising in the pool but doesn't like the cold water. PT-OP-D Balance Start: 11/05/18 18:51 Freq: Status: Active Protocol: Document 11/06/18 13:45 [facility] (Rec: 11/06/18 18:04 [facility] [id number]) Balance Tests Shea Balance Test Shea Balance Test Score 20 Shea Impairment Rating 60 to 79% Impaired (Score 12- 22) PT-OP-E Functional Tests Start: 11/05/18 18:51 Freq: Status: Active Protocol: Document 11/06/18 13:45 [facility] (Rec: 11/06/18 18:04 [facility] [id number]) Functional Tests Five Times Sit to Stand Test Score 33 sec Comments use of UE Timed Up and Go (TUG) Score 39 sec Tinetti Balance and Gait Assessment Composite Score 11 Composite Score Impairment Rating 60 to <80% Impaired (Score 6- 11) PT-OP-G Mobility & Gait Start: 11/05/18 18:51 Freq: Status: Active Protocol: Document 11/06/18 13:45 [facility] (Rec: 11/06/18 14:32 [facility] [id number]) OP Mobility Evaluation Bed Mobility Supine to and from Sit Pt required assist w/LLE for bed mobility to L side of bed. OP Gait Assessment Comments Gait Comments Amb w/NBQC in R hand with dec stance time on LLE and dec step length of RLE & clearance . PT-OP-M Strength Start: 11/05/18 18:51 Freq: Status: Active Protocol: Document 11/06/18 13:45 [facility] (Rec: 11/06/18 14:32 [facility] [id number]) Hip Strength Hip Manual Muscle Testing Right Flexion (L2) 4 Good External Rotation 4 Good Internal Rotation 4 Good Left Flexion (L2) 1 Trace Extension (S1) 2- Poor- Abduction 1 Trace Knee Strength Knee Manual Muscle Testing Right Flexion (S2) 4 Good Extension (L3) 4 Good Left Flexion (S2) 1 Trace Extension (L3) 1 Trace Ankle/Foot Strength Ankle and Foot Manual Muscle Testing Right Dorsiflexion (L4) 5 Normal Plantarflexion (S1) 5 Normal Comments tested seated Left Dorsiflexion (L4) 0 Zero PT-OP-Q Treatments Start: 11/05/18 18:49 Freq: Status: Active Protocol: Document 12/12/18 15:20 DLM (Rec: 12/12/18 16:39 DLM [id number]) Therapeutic Exercises Supine Exercises SAQ Supine Exercise Name over bolster Side left Resistance active Reps/Minutes 2 x 10 reps Comments visual target helps Hip ABduction Supine Exercise Name hooklying Side bilateral Resistance L2 exercise band Reps/Minutes x 10 reps hip ABD Supine Exercise Name full ROM Side left Reps/Minutes 10 reps gastroc/soleus stretch Side left Reps/Minutes 3x 30 sec each Comments manual hip adduction Supine Exercise Name ball squeeze isometric hip adduction Side bilateral Equipment Used small therapy ball Reps/Minutes x10 Comments 3 sec hold Hip IR/ER roll in/out Side left Reps/Minutes 2 x10 reps Comments AAROM bridge Supine Exercise Name w/approximation & assist w/LE position Reps/Minutes 15 reps Sitting Exercises knee flexion Sitting Exercise Name manual resisted Side left Reps/Minutes x10 knee extension Sitting Exercise Name long arc quad Side left Reps/Minutes 10 reps Comments use visual target for foot Standing Exercises sit to stand Standing Exercise Name sit to stand w/use of quad cane Equipment Used second set with step under right foot Reps/Minutes 2 x 10 reps Comments lowest setting on large individual black table- firm& R foot on yellow disc Gait Training Gait Activity Quad cane Description indoors-level surface Device Used quad cane Level of Assistance SBA-CGA Distance/Duration 100 feet Treatment Focus quad activation, step length, left foot flat Comments Cues for slowing down, safe use of quad cane PT-OP-S Aquatic Treatment Start: 11/17/18 15:12 Freq: Status: Active Protocol: Document 12/15/18 11:45 [facility] (Rec: 12/15/18 16:08 [facility] [email or web address]) Aquatics Treatment Pool Entry/Exit Pool Entry/Exit Method Stairs Assistance Standby Assistance Water Walking Monster Walk Water Level Chest Level Level of Assistance Contact Guard Assistance Minimal Assistance Comments manual assist LEs (L>R) Sideways Water Level Chest Level Comments cues for toe and body alignment Backwards Water Level Chest Level Level of Assistance Contact Guard Assistance Forwards Water Level Chest Level Level of Assistance Standby Assistance Lower Extremity Exercises HS curls, Knee extension Details at wall with handhold Body Position Standing Water Level Waist Level Reps/Duration 15 bilat Comments manual assist LEs (L>R) hip flex/ext, ab/ad Details at wall with handhold Body Position Standing Water Level Waist Level Reps/Duration 15 bilat ea Comments ModA for LLE Upper Extremity Exercises figure 8 in coronal plane with UE paddles Details no belt Body Position Standing Water Level Chest Level Reps/Duration 10 Comments manual assist at trunk horiz ab/ad, lateral ab/ad, flex/ext Body Position Standing Water Level Waist Level Reps/Duration 10 ea Comments manual and verbal cuing Balance SLS bilat Body Position Standing Water Level Chest Level Comments handhold at wall Stuart Activities Stuart Activities Bicycle Cross [place] Hip Abduction/Adduction Other Activities rotation in sagittal plane-LEs extended front transitioning to rear Equipment blue float and sm BBs Duration 15 min PT-OP-T Assessment and Plan Start: 11/05/18 18:49 Freq: Status: Active Protocol: Document 12/15/18 11:45 LJ (Rec: 12/15/18 16:08 LJ [email or web address]) Physical Therapy Assessment Goals SHEA Short Term Goal (STG) Pt will improve score to 30/56 to demonstrate improved balance & safety. STG Duration 12/20/18 Medical Services Manager Goal (LTG) Pt will improve score to >35/ 56 in order to demonstrate being safe with AD. LTG Duration 02/06/19 tinnetti Short Term Goal (STG) Pt will improve score to 19/28 in order to dec risk for falls STG Duration 12/20/18 Shelter Goal (LTG) Pt will improve score to 24/28 in order to be at low risk for falls LTG Duration 02/06/19 gait Short Term Goal (STG) Pt will be able to amb with SPC safely STG Duration 12/20/18 Medical Services Manager Goal (LTG) Pt will be able to amb with DAFO and limited cane usage for balance with overall good B step through and foot clearance. LTG Duration 02/06/19 Physical Therapy Plan Frequency and Duration Frequency of Treatment 2x/Week Duration of Treatment 3 months Plan of Care Start Date 11/06/18 Plan of Care End Date 02/06/19 Therapeutic Interventions Therapeutic Interventions Aquatic Therapy Balance Training Coordination Training Gait Training Home Exercise Program Manual Therapy Neuromuscular Re-education Orthotic/Prosthetic Management Patient/Caregiver Education Self-Care/Home Management Taping Therapeutic Activities Therapeutic Exercises Next Visit Focus/Plan Next Note Type Treatment Note Next Visit Plan add standing LE exercises. Transition to using flotation belt in deep wter with no BBs for UE involvement
--- NOTE | 2018-12-17 15:25 | PT.OTN ---
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) Epilepsy, unspecified, intractable, without status epilepticus (12/17/18) Hemiplegia, unspecified affecting left nondominant side (12/17/18) Other reduced mobility (12/17/18) Physical Therapy Treatment Note PT-OP-A Visit Information Start: 11/05/18 18:49 Freq: Status: Active Protocol: Document 12/17/18 15:25 RCC (Rec: 12/17/18 17:59 RCC [email or web address]) Out-Patient Physical Therapy Visit Information Visit Information Visit Type Aquatic Treatment Note Visit Start Time 15:25 Visit Stop Time 16:00 Total Visit Minutes 35 Visit Number 10 Number of JUNIOR ELECTRICAL ENGINEER Visits 0 Evaluation Information Evaluation Date 11/06/18 Precautions Precautions seizures PT-OP-B Current Condition Start: 11/05/18 18:49 Freq: Status: Active Protocol: Document 11/06/18 13:45 LR (Rec: 11/06/18 14:32 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 She had a R ant temporal lobe resection in 10/19. Pt could walk without AD prior to surgery and was indep with ADLs. Pt has had weakness on L side since she was an so she has worn DAFO since then. At this time the dynamic aspect is stabilized. Pt returned home from inpatient rehab 10/31. Mom helps pt bath with bath chair. Mom helps some w/L side dressing but she is able to do indep also. Pt has selective mutism. Treatment Goals Patient/Caregiver Goals Be able to ride her bike. Be able to get around a lot more. PT-OP-C Subjective Start: 11/05/18 18:49 Freq: Status: Active Protocol: Document 12/17/18 15:25 RCC (Rec: 12/17/18 17:59 RCC [email or web address]) OP-PT Subjective Patient Comments Patient Comments Pt's cousin states that Mona has been doing her exercises. She has not had any seizures since 2 weeks ago. PT-OP-D Balance Start: 11/05/18 18:51 Freq: Status: Active Protocol: Document 11/06/18 13:45 [facility] (Rec: 11/06/18 18:04 [facility] [email or web address]) Balance Tests Ventura Balance Test Ventura Balance Test Score 20 Ventura Impairment Rating 60 to 79% Impaired (Score 12- 22) PT-OP-E Functional Tests Start: 11/05/18 18:51 Freq: Status: Active Protocol: Document 11/06/18 13:45 [facility] (Rec: 11/06/18 18:04 [facility] [email or web address]) Functional Tests Five Times Sit to Stand Test Score 33 sec Comments use of UE Timed Up and Go (TUG) Score 39 sec Tinetti Balance and Gait Assessment Composite Score 11 Composite Score Impairment Rating 60 to <80% Impaired (Score 6- 11) PT-OP-G Mobility & Gait Start: 11/05/18 18:51 Freq: Status: Active Protocol: Document 11/06/18 13:45 [facility] (Rec: 11/06/18 14:32 [facility] [id number]) OP Mobility Evaluation Bed Mobility Supine to and from Sit Pt required assist w/LLE for bed mobility to L side of bed. OP Gait Assessment Comments Gait Comments Amb w/NBQC in R hand with dec stance time on LLE and dec step length of RLE & clearance . PT-OP-M Strength Start: 11/05/18 18:51 Freq: Status: Active Protocol: Document 11/06/18 13:45 [facility] (Rec: 11/06/18 14:32 [facility] [id number]) Hip Strength Hip Manual Muscle Testing Right Flexion (L2) 4 Good External Rotation 4 Good Internal Rotation 4 Good Left Flexion (L2) 1 Trace Extension (S1) 2- Poor- Abduction 1 Trace Knee Strength Knee Manual Muscle Testing Right Flexion (S2) 4 Good Extension (L3) 4 Good Left Flexion (S2) 1 Trace Extension (L3) 1 Trace Ankle/Foot Strength Ankle and Foot Manual Muscle Testing Right Dorsiflexion (L4) 5 Normal Plantarflexion (S1) 5 Normal Comments tested seated Left Dorsiflexion (L4) 0 Zero PT-OP-Q Treatments Start: 11/05/18 18:49 Freq: Status: Active Protocol: Document 12/17/18 15:25 RCC (Rec: 12/17/18 18:02 RCC [email or web address]) Cardio Equipment Recumbent Elliptical (AppNeta) Duration (Minutes) 5 Resistance 1 Seat Position 5 Other assist with LLE alignment Therapeutic Exercises Supine Exercises SLR hip flexion Supine Exercise Name AAROM Side left Reps/Minutes x10 hip adduction Supine Exercise Name ball squeeze isometric hip adduction Side bilateral Equipment Used small therapy ball Reps/Minutes x10 Comments 3 sec hold Hip IR/ER roll in/out Side left Reps/Minutes x10 reps Comments AROM bridge Supine Exercise Name w/approximation & assist w/LE position Reps/Minutes 15 reps Sitting Exercises knee flexion Sitting Exercise Name manual resisted Side left Reps/Minutes x10 knee extension Sitting Exercise Name long arc quad Side left Resistance manual resist and 1 lb DB Reps/Minutes 10 reps each Comments use visual target for foot Neuro Re-Education Treatment Balance Activities balloon volley with LEs Details standing @ // bars- balloon volley with aide throwing balloon at pt's feet Equipment // bars Comments bilateral- 1 set L, 1 set R x15 then alternating x15 reps; CGA PT-OP-S Aquatic Treatment Start: 11/17/18 15:12 Freq: Status: Active Protocol: Document 12/15/18 11:45 LJ (Rec: 12/15/18 16:08 [facility] [email or web address]) Aquatics Treatment Pool Entry/Exit Pool Entry/Exit Method Stairs Assistance Standby Assistance Water Walking Monster Walk Water Level Chest Level Level of Assistance Contact Guard Assistance Minimal Assistance Comments manual assist LEs (L>R) Sideways Water Level Chest Level Comments cues for toe and body alignment Backwards Water Level Chest Level Level of Assistance Contact Guard Assistance Forwards Water Level Chest Level Level of Assistance Standby Assistance Lower Extremity Exercises HS curls, Knee extension Details at wall with handhold Body Position Standing Water Level Waist Level Reps/Duration 15 bilat Comments manual assist LEs (L>R) hip flex/ext, ab/ad Details at wall with handhold Body Position Standing Water Level Waist Level Reps/Duration 15 bilat ea Comments ModA for LLE Upper Extremity Exercises figure 8 in coronal plane with UE paddles Details no belt Body Position Standing Water Level Chest Level Reps/Duration 10 Comments manual assist at trunk horiz ab/ad, lateral ab/ad, flex/ext Body Position Standing Water Level Waist Level Reps/Duration 10 ea Comments manual and verbal cuing Balance SLS bilat Body Position Standing Water Level Chest Level Comments handhold at wall Sibley Activities Sibley Activities Bicycle Cross Country Hip Abduction/Adduction Other Activities rotation in sagittal plane-LEs extended front transitioning to rear Equipment blue float and sm BBs Duration 15 min PT-OP-T Assessment and Plan Start: 11/05/18 18:49 Freq: Status: Active Protocol: Document 12/17/18 15:25 RCC (Rec: 12/17/18 17:59 RCC [email or web address]) Physical Therapy Assessment Assessment Summary Assessment Pt unable to perform indep. hip flexion SLR in supine on the LLE, but tolerated AAROM without complaints. Pt's strength is improving, as shown with being able to tolerate PT resistance with seated knee extension activities today. She requires the R side hand rail with balloon kicking due to poor standing balance and coordination. Physical Therapy Plan Frequency and Duration Frequency of Treatment 2x/Week Duration of Treatment 3 months Plan of Care Start Date 11/06/18 Plan of Care End Date 02/06/19 Next Visit Focus/Plan Next Note Type Treatment Note Next Visit Plan cont to progress standing thera ex, Shuttle Recovery with assistance
--- NOTE | 2018-12-22 16:12 | PT.OTN ---
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) Epilepsy, unspecified, intractable, without status epilepticus (12/22/18) Hemiplegia, unspecified affecting left nondominant side (12/22/18) Other reduced mobility (12/22/18) Physical Therapy Treatment Note PT-OP-A Visit Information Start: 11/05/18 18:49 Freq: Status: Active Protocol: Document 12/22/18 11:45 [facility]AK (Rec: 12/22/18 14:26 [facility] [id number]) Out-Patient Physical Therapy Visit Information Visit Information Visit Type Aquatic Treatment Note Visit Start Time 11:45 Visit Stop Time 12:30 Total Visit Minutes 45 Visit Number 11 Number of CORRECTIONAL LIEUTENANT Visits 0 Evaluation Information Evaluation Date 11/06/18 Precautions Precautions seizures PT-OP-B Current Condition Start: 11/05/18 18:49 Freq: Status: Active Protocol: Document 11/06/18 13:45 [facility] (Rec: 11/06/18 14:32 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 She had a R ant temporal lobe resection in 10/19. Pt could walk without AD prior to surgery and was indep with ADLs. Pt has had weakness on L side since she was an so she has worn DAFO since then. At this time the dynamic aspect is stabilized. Pt returned home from inpatient rehab 10/31. Mom helps pt bath with bath chair. Mom helps some w/L side dressing but she is able to do indep also. Pt has selective mutism. Treatment Goals Patient/Caregiver Goals Be able to ride her bike. Be able to get around a lot more. PT-OP-C Subjective Start: 11/05/18 18:49 Freq: Status: Active Protocol: Document 12/22/18 11:45 [facility]AK (Rec: 12/22/18 14:26 [facility] [id number]) OP-PT Subjective Patient Comments Patient Comments No new c/o PT-OP-D Balance Start: 11/05/18 18:51 Freq: Status: Active Protocol: Document 11/06/18 13:45 [facility] (Rec: 11/06/18 18:04 [facility] [id number]) Balance Tests Shea Balance Test Shea Balance Test Score 20 Shea Impairment Rating 60 to 79% Impaired (Score 12- 22) PT-OP-E Functional Tests Start: 11/05/18 18:51 Freq: Status: Active Protocol: Document 11/06/18 13:45 [facility] (Rec: 11/06/18 18:04 [facility] [id number]) Functional Tests Five Times Sit to Stand Test Score 33 sec Comments use of UE Timed Up and Go (TUG) Score 39 sec Tinetti Balance and Gait Assessment Composite Score 11 Composite Score Impairment Rating 60 to <80% Impaired (Score 6- 11) PT-OP-G Mobility & Gait Start: 11/05/18 18:51 Freq: Status: Active Protocol: Document 11/06/18 13:45 [facility] (Rec: 11/06/18 14:32 [facility] [id number]) OP Mobility Evaluation Bed Mobility Supine to and from Sit Pt required assist w/LLE for bed mobility to L side of bed. OP Gait Assessment Comments Gait Comments Amb w/NBQC in R hand with dec stance time on LLE and dec step length of RLE & clearance . PT-OP-M Strength Start: 11/05/18 18:51 Freq: Status: Active Protocol: Document 11/06/18 13:45 [facility] (Rec: 11/06/18 14:32 [facility] [id number]) Hip Strength Hip Manual Muscle Testing Right Flexion (L2) 4 Good External Rotation 4 Good Internal Rotation 4 Good Left Flexion (L2) 1 Trace Extension (S1) 2- Poor- Abduction 1 Trace Knee Strength Knee Manual Muscle Testing Right Flexion (S2) 4 Good Extension (L3) 4 Good Left Flexion (S2) 1 Trace Extension (L3) 1 Trace Ankle/Foot Strength Ankle and Foot Manual Muscle Testing Right Dorsiflexion (L4) 5 Normal Plantarflexion (S1) 5 Normal Comments tested seated Left Dorsiflexion (L4) 0 Zero PT-OP-Q Treatments Start: 11/05/18 18:49 Freq: Status: Active Protocol: Document 12/17/18 15:25 [facility] (Rec: 12/17/18 18:02 [facility] [id number]) Cardio Equipment Recumbent Elliptical (CORD:USE Cord Blood Bank) Duration (Minutes) 5 Resistance 1 Seat Position 5 Other assist with LLE alignment Therapeutic Exercises Supine Exercises SLR hip flexion Supine Exercise Name AAROM Side left Reps/Minutes x10 hip adduction Supine Exercise Name ball squeeze isometric hip adduction Side bilateral Equipment Used small therapy ball Reps/Minutes x10 Comments 3 sec hold Hip IR/ER roll in/out Side left Reps/Minutes x10 reps Comments AROM bridge Supine Exercise Name w/approximation & assist w/LE position Reps/Minutes 15 reps Sitting Exercises knee flexion Sitting Exercise Name manual resisted Side left Reps/Minutes x10 knee extension Sitting Exercise Name long arc quad Side left Resistance manual resist and 1 lb DB Reps/Minutes 10 reps each Comments use visual target for foot Neuro Re-Education Treatment Balance Activities balloon volley with LEs Details standing @ // bars- balloon volley with aide throwing balloon at pt's feet Equipment // bars Comments bilateral- 1 set L, 1 set R x15 then alternating x15 reps; CGA PT-OP-S Aquatic Treatment Start: 11/17/18 15:12 Freq: Status: Active Protocol: Document 12/22/18 11:45 [facility] (Rec: 12/22/18 16:12 [facility] [id number]) Aquatics Treatment Pool Entry/Exit Pool Entry/Exit Method Stairs Assistance Standby Assistance Water Walking Marching Water Level Chest Level Level of Assistance Standby Assistance Monster Walk Water Level Chest Level Level of Assistance Contact Guard Assistance Minimal Assistance Comments manual assist LEs (L>R) Sideways Water Level Chest Level Comments cues for toe and body alignment Forwards Water Level Chest Level Level of Assistance Standby Assistance Lower Extremity Exercises squats Reps/Duration 10x Comments cues for increased weight- bearing left LE hip flex/ext, ab/ad Details encouraging no UE support Body Position Standing Water Level Waist Level Reps/Duration 10 bilat ea Upper Extremity Exercises push/pull with long barbell Reps/Duration 10x ball push between UE's Equipment 8lb medicine ball Reps/Duration 15x ball hit Body Position Standing Equipment plastic bat, beach ball Reps/Duration 10x2 throw/catch Details lyndsay Body Position Standing Equipment beach ball Reps/Duration 10x Comments cues for open hand left ball bounce Equipment 8lb medicine ball Reps/Duration 20x Comments mod assist left UE figure 8 in coronal plane with UE paddles Details no belt Body Position Standing Water Level Chest Level Reps/Duration 10 horiz ab/ad, lateral ab/ad, flex/ext Body Position Standing Water Level Waist Level Reps/Duration 10 ea Comments manual and verbal cuing Park Activities Park Activities Bicycle Cross Country Hip Abduction/Adduction Other Activities rotation in sagittal plane-LEs extended front transitioning to rear Equipment blue float and sm BBs Duration 10 min Swim Strokes Flutter Comments blue float, neck float PT-OP-T Assessment and Plan Start: 11/05/18 18:49 Freq: Status: Active Protocol: Document 12/22/18 11:45 [facility] (Rec: 12/22/18 16:12 [facility] [id number]) Physical Therapy Assessment Goals SHEA Short Term Goal (STG) Pt will improve score to 30/56 to demonstrate improved balance & safety. STG Duration 12/20/18 Jail Goal (LTG) Pt will improve score to >35/ 56 in order to demonstrate being safe with AD. LTG Duration 02/06/19 tinnetti Short Term Goal (STG) Pt will improve score to 19/28 in order to dec risk for falls STG Duration 12/20/18 Jail Goal (LTG) Pt will improve score to 24/28 in order to be at low risk for falls LTG Duration 02/06/19 gait Short Term Goal (STG) Pt will be able to amb with SPC safely STG Duration 12/20/18 Jail Goal (LTG) Pt will be able to amb with DAFO and limited cane usage for balance with overall good B step through and foot clearance. LTG Duration 02/06/19 Assessment Summary Assessment improved incoroporation of left UE use with verbal and manual cues, ball play. Decreased UE support with LE standing ex. needs mod assist for trunk control in sagittal plane with deep water ex. Physical Therapy Plan Frequency and Duration Frequency of Treatment 2x/Week Duration of Treatment 3 months Plan of Care Start Date 11/06/18 Plan of Care End Date 02/06/19 Therapeutic Interventions Therapeutic Interventions Aquatic Therapy Balance Training Coordination Training Gait Training Home Exercise Program Manual Therapy Neuromuscular Re-education Orthotic/Prosthetic Management Patient/Caregiver Education Self-Care/Home Management Taping Therapeutic Activities Therapeutic Exercises Next Visit Focus/Plan Next Note Type Treatment Note Next Visit Plan Continue land and aquatic PT for strengthening, balance, gait training.
--- NOTE | 2018-12-24 14:52 | PT.OTN ---
Current Diagnoses Selective mutism (12/24/18) Epilepsy, unspecified, intractable, without status epilepticus (12/24/18) Hemiplegia, unspecified affecting left nondominant side (12/24/18) Other reduced mobility (12/24/18) Physical Therapy Treatment Note PT-OP-A Visit Information Start: 11/05/18 18:49 Freq: Status: Active Protocol: Document 12/24/18 14:41 [facility] (Rec: 12/24/18 14:52 [facility] [email or web address]) Out-Patient Physical Therapy Visit Information Visit Information Visit Type Treatment Note Visit Start Time 10:30 Visit Stop Time 11:15 Total Visit Minutes 45 Visit Number 12 Number of MANAGER RECRUITMENT Visits 1 PT-OP-B Current Condition Start: 11/05/18 18:49 Freq: Status: Active Protocol: Document 11/06/18 13:45 [facility] (Rec: 11/06/18 14:32 [facility] [id number]) Current Condition History of Current Condition Onset Date 09/18/18 Current 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 She had a R ant temporal lobe resection in 10/19. Pt could walk without AD prior to surgery and was indep with ADLs. Pt has had weakness on L side since she was an so she has worn DAFO since then. At this time the dynamic aspect is stabilized. Pt returned home from inpatient rehab 10/31. Mom helps pt bath with bath chair. Mom helps some w/L side dressing but she is able to do indep also. Pt has selective mutism. Treatment Goals Patient/Caregiver Goals Be able to ride her bike. Be able to get around a lot more. PT-OP-C Subjective Start: 11/05/18 18:49 Freq: Status: Active Protocol: Document 12/24/18 14:41 [facility] (Rec: 12/24/18 14:52 [facility] [email or web address]) OP-PT Subjective Patient Comments Patient Comments No seizures since 3 weeks ago, pt denies having any falls. PT-OP-D Balance Start: 11/05/18 18:51 Freq: Status: Active Protocol: Document 11/06/18 13:45 [facility] (Rec: 11/06/18 18:04 [facility] [email or web address]) Balance Tests [place]ura Balance Test [place]ura Balance Test Score 20 [place] Impairment Rating 60 to 79% Impaired (Score 12- 22) PT-OP-E Functional Tests Start: 11/05/18 18:51 Freq: Status: Active Protocol: Document 11/06/18 13:45 [facility] (Rec: 11/06/18 18:04 [facility] [email or web address]) Functional Tests Five Times Sit to Stand Test Score 33 sec Comments use of UE Timed Up and Go (TUG) Score 39 sec Tinetti Balance and Gait Assessment Composite Score 11 Composite Score Impairment Rating 60 to <80% Impaired (Score 6- 11) PT-OP-G Mobility & Gait Start: 11/05/18 18:51 Freq: Status: Active Protocol: Document 11/06/18 13:45 [facility] (Rec: 11/06/18 14:32 [facility] [id number]) OP Mobility Evaluation Bed Mobility Supine to and from Sit Pt required assist w/LLE for bed mobility to L side of bed. OP Gait Assessment Comments Gait Comments Amb w/NBQC in R hand with dec stance time on LLE and dec step length of RLE & clearance . PT-OP-M Strength Start: 11/05/18 18:51 Freq: Status: Active Protocol: Document 11/06/18 13:45 [facility] (Rec: 11/06/18 14:32 [facility] [id number]) Hip Strength Hip Manual Muscle Testing Right Flexion (L2) 4 Good External Rotation 4 Good Internal Rotation 4 Good Left Flexion (L2) 1 Trace Extension (S1) 2- Poor- Abduction 1 Trace Knee Strength Knee Manual Muscle Testing Right Flexion (S2) 4 Good Extension (L3) 4 Good Left Flexion (S2) 1 Trace Extension (L3) 1 Trace Ankle/Foot Strength Ankle and Foot Manual Muscle Testing Right Dorsiflexion (L4) 5 Normal Plantarflexion (S1) 5 Normal Comments tested seated Left Dorsiflexion (L4) 0 Zero PT-OP-Q Treatments Start: 11/05/18 18:49 Freq: Status: Active Protocol: Document 12/24/18 14:41 [facility] (Rec: 12/24/18 14:52 [facility] [email or web address]) Cardio Equipment Recumbent Elliptical (BiodFishki) Duration (Minutes) 5 Resistance 2 Seat Position 5 Other LEs only Therapeutic Exercises Supine Exercises SLR hip flexion Supine Exercise Name AAROM Side left Reps/Minutes 12x SAQ Supine Exercise Name over bolster Side bilateral Resistance active Reps/Minutes 2 x 10 reps Comments visual target helps hip adduction Supine Exercise Name ball squeeze isometric hip adduction Side bilateral Equipment Used small therapy ball Reps/Minutes x10 Comments 3 sec hold bridge Supine Exercise Name w/approximation & assist w/LE position Reps/Minutes 15 reps Comments 3 holds Standing Exercises sit to stand Standing Exercise Name sit to stand w/use of quad cane Equipment Used second set with step under right foot Reps/Minutes 10x Comments lowest setting on large individual black table- firm& R foot on yellow disc Gait Training Gait Activity // bars Level of Assistance level Surface 6 lengths Treatment Focus focus on LUE grasoping bar Quad cane Description indoors-level surface Device Used quad cane Level of Assistance SBA-CGA Distance/Duration 100 feet Treatment Focus quad activation, step length, left foot flat Comments Cues for slowing down, safe use of quad cane Neuro Re-Education Treatment Balance Activities Lateral stepping in //bars Surface level Equipment //bars Reps/Duration 4 lengths Comments LUE grasping bar, LLE elevating rather than sliding balloon volley with LEs Details standing @ // bars- balloon volley with aide throwing balloon at pt's feet Equipment // bars Comments bilateral- 1 set L, 1 set R x15 then alternating x15 reps; CGA PT-OP-S Aquatic Treatment Start: 11/17/18 15:12 Freq: Status: Active Protocol: Document 12/22/18 11:45 [facility] (Rec: 12/22/18 16:12 [facility] [id number]) Aquatics Treatment Pool Entry/Exit Pool Entry/Exit Method Stairs Assistance Standby Assistance Water Walking Marching Water Level Chest Level Level of Assistance Standby Assistance Monster Walk Water Level Chest Level Level of Assistance Contact Guard Assistance Minimal Assistance Comments manual assist LEs (L>R) Sideways Water Level Chest Level Comments cues for toe and body alignment Forwards Water Level Chest Level Level of Assistance Standby Assistance Lower Extremity Exercises squats Reps/Duration 10x Comments cues for increased weight- bearing left LE hip flex/ext, ab/ad Details encouraging no UE support Body Position Standing Water Level Waist Level Reps/Duration 10 bilat ea Upper Extremity Exercises push/pull with long barbell Reps/Duration 10x ball push between UE's Equipment 8lb medicine ball Reps/Duration 15x ball hit Body Position Standing Equipment plastic bat, beach ball Reps/Duration 10x2 throw/catch Details lyndsay Body Position Standing Equipment beach ball Reps/Duration 10x Comments cues for open hand left ball bounce Equipment 8lb medicine ball Reps/Duration 20x Comments mod assist left UE figure 8 in coronal plane with UE paddles Details no belt Body Position Standing Water Level Chest Level Reps/Duration 10 horiz ab/ad, lateral ab/ad, flex/ext Body Position Standing Water Level Waist Level Reps/Duration 10 ea Comments manual and verbal cuing [place] Activities [place] Activities Bicycle Cross Country Hip Abduction/Adduction Other Activities rotation in sagittal plane-LEs extended front transitioning to rear Equipment blue float and sm BBs Duration 10 min Swim Strokes Flutter Comments blue float, neck float PT-OP-T Assessment and Plan Start: 11/05/18 18:49 Freq: Status: Active Protocol: Document 12/24/18 14:41 [facility] (Rec: 12/24/18 14:52 [facility] [email or web address]) Physical Therapy Assessment Assessment Summary Assessment Improving dynamic balance tolerance, LUE use during gait and balance tasks with verbal /tactile cues. Pt tolerating balance/exercise progressions well. Physical Therapy Plan Next Visit Focus/Plan Next Note Type Treatment Note Next Visit Plan Cont to progress LE strengthening, dynamic balance and gait training.
--- NOTE | 2018-12-29 13:30 | PT.OTN ---
Current Diagnoses Selective mutism (12/24/18) Epilepsy, unspecified, intractable, without status epilepticus (12/24/18) Hemiplegia, unspecified affecting left nondominant side (12/24/18) Other reduced mobility (12/24/18) Physical Therapy Treatment Note PT-OP-A Visit Information Start: 11/05/18 18:49 Freq: Status: Active Protocol: Document 12/29/18 11:45 CLB (Rec: 12/29/18 13:29 CLB [id number]) Out-Patient Physical Therapy Visit Information Visit Information Visit Type Aquatic Treatment Note Visit Start Time 11:45 Visit Stop Time 12:30 Total Visit Minutes 45 Visit Number 13 Number of COMMERCIAL DESIGNER Visits 2 PT-OP-B Current Condition Start: 11/05/18 18:49 Freq: Status: Active Protocol: Document 11/06/18 13:45 LR (Rec: 11/06/18 14:32 [facility] [id number]) Current Condition History of Current Condition Onset Date 09/18/18 Current 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 She had a R ant temporal lobe resection in 10/19. Pt could walk without AD prior to surgery and was indep with ADLs. Pt has had weakness on L side since she was an so she has worn DAFO since then. At this time the dynamic aspect is stabilized. Pt returned home from inpatient rehab 10/31. Mom helps pt bath with bath chair. Mom helps some w/L side dressing but she is able to do indep also. Pt has selective mutism. Treatment Goals Patient/Caregiver Goals Be able to ride her bike. Be able to get around a lot more. PT-OP-C Subjective Start: 11/05/18 18:49 Freq: Status: Active Protocol: Document 12/29/18 11:45 CLB (Rec: 12/29/18 13:29 CLB [id number]) OP-PT Subjective Patient Comments Patient Comments No new c/o PT-OP-D Balance Start: 11/05/18 18:51 Freq: Status: Active Protocol: Document 11/06/18 13:45 LR (Rec: 11/06/18 18:04 [facility] [id number]) Balance Tests Shea Balance Test Shea Balance Test Score 20 Shea Impairment Rating 60 to 79% Impaired (Score 12- 22) PT-OP-E Functional Tests Start: 11/05/18 18:51 Freq: Status: Active Protocol: Document 11/06/18 13:45 [facility] (Rec: 11/06/18 18:04 [facility] [id number]) Functional Tests Five Times Sit to Stand Test Score 33 sec Comments use of UE Timed Up and Go (TUG) Score 39 sec Tinetti Balance and Gait Assessment Composite Score 11 Composite Score Impairment Rating 60 to <80% Impaired (Score 6- 11) PT-OP-G Mobility & Gait Start: 11/05/18 18:51 Freq: Status: Active Protocol: Document 11/06/18 13:45 [facility] (Rec: 11/06/18 14:32 [facility] [id number]) OP Mobility Evaluation Bed Mobility Supine to and from Sit Pt required assist w/LLE for bed mobility to L side of bed. OP Gait Assessment Comments Gait Comments Amb w/NBQC in R hand with dec stance time on LLE and dec step length of RLE & clearance . PT-OP-M Strength Start: 11/05/18 18:51 Freq: Status: Active Protocol: Document 11/06/18 13:45 [facility] (Rec: 11/06/18 14:32 [facility] [id number]) Hip Strength Hip Manual Muscle Testing Right Flexion (L2) 4 Good External Rotation 4 Good Internal Rotation 4 Good Left Flexion (L2) 1 Trace Extension (S1) 2- Poor- Abduction 1 Trace Knee Strength Knee Manual Muscle Testing Right Flexion (S2) 4 Good Extension (L3) 4 Good Left Flexion (S2) 1 Trace Extension (L3) 1 Trace Ankle/Foot Strength Ankle and Foot Manual Muscle Testing Right Dorsiflexion (L4) 5 Normal Plantarflexion (S1) 5 Normal Comments tested seated Left Dorsiflexion (L4) 0 Zero PT-OP-Q Treatments Start: 11/05/18 18:49 Freq: Status: Active Protocol: Document 12/24/18 14:41 SA (Rec: 12/24/18 14:52 SA [id number]) Cardio Equipment Recumbent Elliptical (Biodex) Duration (Minutes) 5 Resistance 2 Seat Position 5 Other LEs only Therapeutic Exercises Supine Exercises SLR hip flexion Supine Exercise Name AAROM Side left Reps/Minutes 12x SAQ Supine Exercise Name over bolster Side bilateral Resistance active Reps/Minutes 2 x 10 reps Comments visual target helps hip adduction Supine Exercise Name ball squeeze isometric hip adduction Side bilateral Equipment Used small therapy ball Reps/Minutes x10 Comments 3 sec hold bridge Supine Exercise Name w/approximation & assist w/LE position Reps/Minutes 15 reps Comments 3 holds Standing Exercises sit to stand Standing Exercise Name sit to stand w/use of quad cane Equipment Used second set with step under right foot Reps/Minutes 10x Comments lowest setting on large individual black table- firm& R foot on yellow disc Gait Training Gait Activity // bars Level of Assistance level Surface 6 lengths Treatment Focus focus on LUE grasoping bar Quad cane Description indoors-level surface Device Used quad cane Level of Assistance SBA-CGA Distance/Duration 100 feet Treatment Focus quad activation, step length, left foot flat Comments Cues for slowing down, safe use of quad cane Neuro Re-Education Treatment Balance Activities Lateral stepping in //bars Surface level Equipment //bars Reps/Duration 4 lengths Comments LUE grasping bar, LLE elevating rather than sliding balloon volley with LEs Details standing @ // bars- balloon volley with aide throwing balloon at pt's feet Equipment // bars Comments bilateral- 1 set L, 1 set R x15 then alternating x15 reps; CGA PT-OP-S Aquatic Treatment Start: 11/17/18 15:12 Freq: Status: Active Protocol: Document 12/29/18 11:45 CLB (Rec: 12/29/18 13:29 CLB [id number]) Aquatics Treatment Water Walking Marching Water Level Chest Level Level of Assistance Standby Assistance Monster Walk Water Level Chest Level Level of Assistance Contact Guard Assistance Minimal Assistance Comments manual assist LEs (L>R) Sideways Water Level Chest Level Comments cues for toe and body alignment Backwards Water Level Chest Level Level of Assistance Contact Guard Assistance Forwards Water Level Chest Level Level of Assistance Standby Assistance Lower Extremity Exercises squats Reps/Duration 10x Comments cues for increased weight- bearing left LE HS curls, Knee extension Details at wall with handhold Body Position Standing Water Level Waist Level Reps/Duration 15 bilat Comments manual assist LEs (L>R) hip flex/ext, ab/ad Details encouraging no UE support Body Position Standing Water Level Waist Level Reps/Duration 10 bilat ea Upper Extremity Exercises ball push between UE's Equipment 8lb medicine ball Reps/Duration 15x ball hit Body Position Standing Equipment plastic bat, beach ball Reps/Duration 10x2 ball bounce Equipment 8lb medicine ball Reps/Duration 20x Comments mod assist left UE figure 8 in coronal plane with UE paddles Details no belt Body Position Standing Water Level Chest Level Reps/Duration 10 horiz ab/ad, lateral ab/ad, flex/ext Body Position Standing Water Level Waist Level Reps/Duration 10 ea Comments manual and verbal cuing PT-OP-T Assessment and Plan Start: 11/05/18 18:49 Freq: Status: Active Protocol: Document 12/29/18 11:45 CLB (Rec: 12/29/18 13:29 CLB [id number]) Physical Therapy Assessment Goals SHEA Short Term Goal (STG) Pt will improve score to 30/56 to demonstrate improved balance & safety. STG Duration 12/20/18 Fci Goal (LTG) Pt will improve score to >35/ 56 in order to demonstrate being safe with AD. LTG Duration 02/06/19 tinnetti Short Term Goal (STG) Pt will improve score to 19/28 in order to dec risk for falls STG Duration 12/20/18 Incident Response Analyst Goal (LTG) Pt will improve score to 24/28 in order to be at low risk for falls LTG Duration 02/06/19 gait Short Term Goal (STG) Pt will be able to amb with SPC safely STG Duration 12/20/18 Incident Response Analyst Goal (LTG) Pt will be able to amb with DAFO and limited cane usage for balance with overall good B step through and foot clearance. LTG Duration 02/06/19 Assessment Summary Assessment Pt able to hit ball with bat hitting left and right handed. Pt required assist with LUE for ball bounce but was able to push ball with LUE using open hand during ball play. Physical Therapy Plan Frequency and Duration Frequency of Treatment 2x/Week Duration of Treatment 3 months Plan of Care Start Date 11/06/18 Plan of Care End Date 02/06/19 Next Visit Focus/Plan Next Note Type Treatment Note Next Visit Plan Cont to progress LE strengthening, dynamic balance and gait training.
--- NOTE | 2018-12-31 11:12 | PT.OTN ---
Current Diagnoses Selective mutism (12/31/18) Epilepsy, unspecified, intractable, without status epilepticus (12/31/18) Hemiplegia, unspecified affecting left nondominant side (12/31/18) Other reduced mobility (12/31/18) Physical Therapy Treatment Note PT-OP-A Visit Information Start: 11/05/18 18:49 Freq: Status: Active Protocol: Document 12/31/18 09:53 [facility] (Rec: 12/31/18 11:12 [facility] [id number]) Out-Patient Physical Therapy Visit Information Visit Information Visit Type Treatment Note Visit Start Time 10:30 Visit Stop Time 11:10 Total Visit Minutes 40 Visit Number 14 Number of HAND MITER OPERATOR Visits 0 PT-OP-B Current Condition Start: 11/05/18 18:49 Freq: Status: Active Protocol: Document 11/06/18 13:45 [facility] (Rec: 11/06/18 14:32 [facility] [id number]) Current Condition History of Current Condition Onset Date 09/18/18 Current 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 She had a R ant temporal lobe resection in 10/19. Pt could walk without AD prior to surgery and was indep with ADLs. Pt has had weakness on L side since she was an so she has worn DAFO since then. At this time the dynamic aspect is stabilized. Pt returned home from inpatient rehab 10/31. Mom helps pt bath with bath chair. Mom helps some w/L side dressing but she is able to do indep also. Pt has selective mutism. Treatment Goals Patient/Caregiver Goals Be able to ride her bike. Be able to get around a lot more. PT-OP-C Subjective Start: 11/05/18 18:49 Freq: Status: Active Protocol: Document 12/31/18 09:53 [facility] (Rec: 12/31/18 11:12 [facility] [id number]) OP-PT Subjective Patient Comments Patient Comments mom reports she is seeing her continue to improve with PT. PT-OP-D Balance Start: 11/05/18 18:51 Freq: Status: Active Protocol: Document 11/06/18 13:45 [facility] (Rec: 11/06/18 18:04 [facility] [id number]) Balance Tests Shea Balance Test Shea Balance Test Score 20 Shea Impairment Rating 60 to 79% Impaired (Score 12- 22) PT-OP-E Functional Tests Start: 11/05/18 18:51 Freq: Status: Active Protocol: Document 11/06/18 13:45 [facility] (Rec: 11/06/18 18:04 [facility] [id number]) Functional Tests Five Times Sit to Stand Test Score 33 sec Comments use of UE Timed Up and Go (TUG) Score 39 sec Tinetti Balance and Gait Assessment Composite Score 11 Composite Score Impairment Rating 60 to <80% Impaired (Score 6- 11) PT-OP-G Mobility & Gait Start: 11/05/18 18:51 Freq: Status: Active Protocol: Document 11/06/18 13:45 [facility] (Rec: 11/06/18 14:32 [facility] [id number]) OP Mobility Evaluation Bed Mobility Supine to and from Sit Pt required assist w/LLE for bed mobility to L side of bed. OP Gait Assessment Comments Gait Comments Amb w/NBQC in R hand with dec stance time on LLE and dec step length of RLE & clearance . PT-OP-M Strength Start: 11/05/18 18:51 Freq: Status: Active Protocol: Document 11/06/18 13:45 [facility] (Rec: 11/06/18 14:32 [facility] [id number]) Hip Strength Hip Manual Muscle Testing Right Flexion (L2) 4 Good External Rotation 4 Good Internal Rotation 4 Good Left Flexion (L2) 1 Trace Extension (S1) 2- Poor- Abduction 1 Trace Knee Strength Knee Manual Muscle Testing Right Flexion (S2) 4 Good Extension (L3) 4 Good Left Flexion (S2) 1 Trace Extension (L3) 1 Trace Ankle/Foot Strength Ankle and Foot Manual Muscle Testing Right Dorsiflexion (L4) 5 Normal Plantarflexion (S1) 5 Normal Comments tested seated Left Dorsiflexion (L4) 0 Zero PT-OP-Q Treatments Start: 11/05/18 18:49 Freq: Status: Active Protocol: Document 12/31/18 09:53 [facility] (Rec: 12/31/18 11:12 [facility] [id number]) Cardio Equipment Recumbent Elliptical (Servoyant) Duration (Minutes) 5 Resistance 3 Seat Position 5 Other LEs only Gym Equipment Shuttle Balance red clips Details fwd & side: WBOS & NBOS Therapeutic Exercises Supine Exercises SLR hip flexion Supine Exercise Name AROM Side left Reps/Minutes 15x Comments cueing for inc range Hip ABduction Supine Exercise Name w/alt knee bent Side left Reps/Minutes 15 hip ABD Supine Exercise Name hooklying Side bilateral Equipment Used L3 Reps/Minutes 15 bridge Supine Exercise Name w/cueing for leg position Reps/Minutes 15 reps Comments 3 holds Sidelying Exercises ER Sidelying Exercise Name unable to do hip abd Side left Reps/Minutes 15 Standing Exercises sit to stand Standing Exercise Name sit to stand w/use of quad cane Equipment Used 2nd set w./disc Reps/Minutes 10x2 Comments lowest setting on large black table- firm& R foot on yellow disc Neuro Re-Education Treatment Balance Activities fwd/back Details fwd back walking w/out rail Reps/Duration 3 laps hurdles Details step to Reps/Duration 6 laps rails prn NBOS Details on black theradisc Reps/Duration EC & balloon volley w/hands Lateral stepping in //bars Surface level Equipment //bars Reps/Duration 4 lengths Comments LUE grasping bar, LLE elevating rather than sliding PT-OP-S Aquatic Treatment Start: 11/17/18 15:12 Freq: Status: Active Protocol: Document 12/29/18 11:45 CLB (Rec: 12/29/18 13:29 CLB [id number]) Aquatics Treatment Water Walking Marching Water Level Chest Level Level of Assistance Standby Assistance Monster Walk Water Level Chest Level Level of Assistance Contact Guard Assistance Minimal Assistance Comments manual assist LEs (L>R) Sideways Water Level Chest Level Comments cues for toe and body alignment Backwards Water Level Chest Level Level of Assistance Contact Guard Assistance Forwards Water Level Chest Level Level of Assistance Standby Assistance Lower Extremity Exercises squats Reps/Duration 10x Comments cues for increased weight- bearing left LE HS curls, Knee extension Details at wall with handhold Body Position Standing Water Level Waist Level Reps/Duration 15 bilat Comments manual assist LEs (L>R) hip flex/ext, ab/ad Details encouraging no UE support Body Position Standing Water Level Waist Level Reps/Duration 10 bilat ea Upper Extremity Exercises ball push between UE's Equipment 8lb medicine ball Reps/Duration 15x ball hit Body Position Standing Equipment plastic bat, beach ball Reps/Duration 10x2 ball bounce Equipment 8lb medicine ball Reps/Duration 20x Comments mod assist left UE figure 8 in coronal plane with UE paddles Details no belt Body Position Standing Water Level Chest Level Reps/Duration 10 horiz ab/ad, lateral ab/ad, flex/ext Body Position Standing Water Level Waist Level Reps/Duration 10 ea Comments manual and verbal cuing PT-OP-T Assessment and Plan Start: 11/05/18 18:49 Freq: Status: Active Protocol: Document 12/31/18 09:53 [facility] (Rec: 12/31/18 11:12 [facility] [id number]) Physical Therapy Assessment Goals SHEA Short Term Goal (STG) Pt will improve score to 30/56 to demonstrate improved balance & safety. STG Duration 12/20/18 [place] Goal (LTG) Pt will improve score to >35/ 56 in order to demonstrate being safe with AD. LTG Duration 02/06/19 tinnetti Short Term Goal (STG) Pt will improve score to 19/28 in order to dec risk for falls STG Duration 12/20/18 Shelter Goal (LTG) Pt will improve score to 24/28 in order to be at low risk for falls LTG Duration 02/06/19 gait Short Term Goal (STG) Pt will be able to amb with SPC safely STG Duration 12/20/18 [place] Goal (LTG) Pt will be able to amb with DAFO and limited cane usage for balance with overall good B step through and foot clearance. LTG Duration 02/06/19 Assessment Summary Assessment Pt able to tolerate all new balance exercises today. Unstable surfaces and EC were difficult for her. Her gait cont to improve and exercise abilityh Physical Therapy Plan Frequency and Duration Frequency of Treatment 2x/Week Duration of Treatment 3 months Plan of Care Start Date 11/06/18 Plan of Care End Date 02/06/19 Next Visit Focus/Plan Next Note Type Treatment Note Next Visit Plan Cont to progress LE strengthening, dynamic balance and gait training. Try SPC
--- NOTE | 2019-01-05 13:44 | PT.OTN ---
Current Diagnoses Selective mutism (12/31/18) Epilepsy, unspecified, intractable, without status epilepticus (12/31/18) Hemiplegia, unspecified affecting left nondominant side (12/31/18) Other reduced mobility (12/31/18) Physical Therapy Treatment Note PT-OP-A Visit Information Start: 11/05/18 18:49 Freq: Status: Active Protocol: Document 01/05/19 11:30 CLB (Rec: 01/05/19 13:40 CLB [id number]) Out-Patient Physical Therapy Visit Information Visit Information Visit Type Aquatic Treatment Note Visit Start Time 11:30 Visit Stop Time 12:15 Total Visit Minutes 45 Visit Number [address] SCIENTIST Visits 1 PT-OP-B Current Condition Start: 11/05/18 18:49 Freq: Status: Active Protocol: Document 11/06/18 13:45 LR (Rec: 11/06/18 14:32 [facility] [id number]) Current Condition History of Current Condition Onset Date 09/18/18 Current 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 She had a R ant temporal lobe resection in 10/19. Pt could walk without AD prior to surgery and was indep with ADLs. Pt has had weakness on L side since she was an so she has worn DAFO since then. At this time the dynamic aspect is stabilized. Pt returned home from inpatient rehab 10/31. Mom helps pt bath with bath chair. Mom helps some w/L side dressing but she is able to do indep also. Pt has selective mutism. Treatment Goals Patient/Caregiver Goals Be able to ride her bike. Be able to get around a lot more. PT-OP-C Subjective Start: 11/05/18 18:49 Freq: Status: Active Protocol: Document 01/05/19 13:41 CLB (Rec: 01/05/19 13:44 CLB [id number]) OP-PT Subjective Patient Comments Patient Comments Pt seems happy to be at the pool for therapy. PT-OP-D Balance Start: 11/05/18 18:51 Freq: Status: Active Protocol: Document 11/06/18 13:45 LRH (Rec: 11/06/18 18:04 [facility]H [id number]) Balance Tests Shea Balance Test Shea Balance Test Score 20 Shea Impairment Rating 60 to 79% Impaired (Score 12- 22) PT-OP-E Functional Tests Start: 11/05/18 18:51 Freq: Status: Active Protocol: Document 11/06/18 13:45 [facility] (Rec: 11/06/18 18:04 [facility] [id number]) Functional Tests Five Times Sit to Stand Test Score 33 sec Comments use of UE Timed Up and Go (TUG) Score 39 sec Tinetti Balance and Gait Assessment Composite Score 11 Composite Score Impairment Rating 60 to <80% Impaired (Score 6- 11) PT-OP-G Mobility & Gait Start: 11/05/18 18:51 Freq: Status: Active Protocol: Document 11/06/18 13:45 [facility] (Rec: 11/06/18 14:32 [facility] [id number]) OP Mobility Evaluation Bed Mobility Supine to and from Sit Pt required assist w/LLE for bed mobility to L side of bed. OP Gait Assessment Comments Gait Comments Amb w/NBQC in R hand with dec stance time on LLE and dec step length of RLE & clearance . PT-OP-M Strength Start: 11/05/18 18:51 Freq: Status: Active Protocol: Document 11/06/18 13:45 [facility] (Rec: 11/06/18 14:32 [facility] [id number]) Hip Strength Hip Manual Muscle Testing Right Flexion (L2) 4 Good External Rotation 4 Good Internal Rotation 4 Good Left Flexion (L2) 1 Trace Extension (S1) 2- Poor- Abduction 1 Trace Knee Strength Knee Manual Muscle Testing Right Flexion (S2) 4 Good Extension (L3) 4 Good Left Flexion (S2) 1 Trace Extension (L3) 1 Trace Ankle/Foot Strength Ankle and Foot Manual Muscle Testing Right Dorsiflexion (L4) 5 Normal Plantarflexion (S1) 5 Normal Comments tested seated Left Dorsiflexion (L4) 0 Zero PT-OP-Q Treatments Start: 11/05/18 18:49 Freq: Status: Active Protocol: Document 12/31/18 09:53 [facility] (Rec: 12/31/18 11:12 [facility] [id number]) Cardio Equipment Recumbent Elliptical ([employer]) Duration (Minutes) 5 Resistance 3 Seat Position 5 Other LEs only Gym Equipment Shuttle Balance red clips Details fwd & side: WBOS & NBOS Therapeutic Exercises Supine Exercises SLR hip flexion Supine Exercise Name AROM Side left Reps/Minutes 15x Comments cueing for inc range Hip ABduction Supine Exercise Name w/alt knee bent Side left Reps/Minutes 15 hip ABD Supine Exercise Name hooklying Side bilateral Equipment Used L3 Reps/Minutes 15 bridge Supine Exercise Name w/cueing for leg position Reps/Minutes 15 reps Comments 3 holds Sidelying Exercises ER Sidelying Exercise Name unable to do hip abd Side left Reps/Minutes 15 Standing Exercises sit to stand Standing Exercise Name sit to stand w/use of quad cane Equipment Used 2nd set w./disc Reps/Minutes 10x2 Comments lowest setting on large black table- firm& R foot on yellow disc Neuro Re-Education Treatment Balance Activities fwd/back Details fwd back walking w/out rail Reps/Duration 3 laps hurdles Details step to Reps/Duration 6 laps rails prn NBOS Details on black theradisc Reps/Duration EC & balloon volley w/hands Lateral stepping in //bars Surface level Equipment //bars Reps/Duration 4 lengths Comments LUE grasping bar, LLE elevating rather than sliding PT-OP-S Aquatic Treatment Start: 11/17/18 15:12 Freq: Status: Active Protocol: Document 01/05/19 11:30 CLB (Rec: 01/05/19 13:40 CLB [id number]) Aquatics Treatment Pool Entry/Exit Pool Entry/Exit Method Stairs Assistance Standby Assistance Water Walking Marching Water Level Chest Level Level of Assistance Standby Assistance Monster Walk Water Level Chest Level Level of Assistance Contact Guard Assistance Minimal Assistance Comments manual assist LEs (L>R) Sideways Water Level Chest Level Comments cues for toe and body alignment Backwards Water Level Chest Level Level of Assistance Contact Guard Assistance Forwards Water Level Chest Level Level of Assistance Standby Assistance Lower Extremity Exercises squats Reps/Duration 10x Comments cues for increased weight- bearing left LE HS curls, Knee extension Details at wall with handhold Body Position Standing Water Level Waist Level Reps/Duration 15 bilat Comments manual assist LEs (L>R) hip flex/ext, ab/ad Details encouraging no UE support Body Position Standing Water Level Waist Level Reps/Duration 10 bilat ea Upper Extremity Exercises records section supervisor balls with left hand Equipment small balls Reps/Duration 6 balls x 3 Comments Pt picks up balls with left hand and places them in basket . records section supervisor balls with sm noodle Equipment small noodle and small balls Reps/Duration 6 balls x 3 Comments Pt needs cues to keep ball away from body while picking it up. push/pull with long barbell Reps/Duration 10x ball push between UE's Equipment 8lb medicine ball Reps/Duration 15x ball hit Body Position Standing Equipment plastic bat, beach ball Reps/Duration 10x2 throw/catch Details lyndsay Body Position Standing Equipment beach ball Reps/Duration 10x Comments cues for open hand left ball bounce Equipment 8lb medicine ball Reps/Duration 20x Comments mod assist left UE figure 8 in coronal plane with UE paddles Details no belt Body Position Standing Water Level Chest Level Reps/Duration 10 horiz ab/ad, lateral ab/ad, flex/ext Body Position Standing Water Level Waist Level Reps/Duration 10 ea Comments manual and verbal cuing Balance SLS bilat Body Position Standing Water Level Chest Level Comments handhold at wall Rumsey Activities Rumsey Activities Bicycle Equipment blue float and sm BBs Duration 5 mins Comments blue float and BB's PT-OP-T Assessment and Plan Start: 11/05/18 18:49 Freq: Status: Active Protocol: Document 01/05/19 11:30 CLB (Rec: 01/05/19 13:40 CLB [id number]) Physical Therapy Assessment Goals SHEA Short Term Goal (STG) Pt will improve score to 30/56 to demonstrate improved balance & safety. STG Duration 12/20/18 Fpc Goal (LTG) Pt will improve score to >35/ 56 in order to demonstrate being safe with AD. LTG Duration 02/06/19 tinnetti Short Term Goal (STG) Pt will improve score to 19/28 in order to dec risk for falls STG Duration 12/20/18 Fpc Goal (LTG) Pt will improve score to 24/28 in order to be at low risk for falls LTG Duration 02/06/19 gait Short Term Goal (STG) Pt will be able to amb with SPC safely STG Duration 12/20/18 Fpc Goal (LTG) Pt will be able to amb with DAFO and limited cane usage for balance with overall good B step through and foot clearance. LTG Duration 02/06/19 Assessment Summary Assessment Pt improved with activities using left arm and hand. Physical Therapy Plan Frequency and Duration Frequency of Treatment 2x/Week Duration of Treatment 3 months Plan of Care Start Date 11/06/18 Plan of Care End Date 02/06/19 Next Visit Focus/Plan Next Note Type Treatment Note Next Visit Plan Cont to progress LE strengthening, dynamic balance and gait training. Try SPC
--- NOTE | 2019-01-07 12:20 | PT.OTN ---
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) Epilepsy, unspecified, intractable, without status epilepticus (01/07/19) Hemiplegia, unspecified affecting left nondominant side (01/07/19) Other reduced mobility (01/07/19) Physical Therapy Treatment Note PT-OP-A Visit Information Start: 11/05/18 18:49 Freq: Status: Active Protocol: Document 01/07/19 12:12 SA (Rec: 01/07/19 12:20 SA [email or web address]) Out-Patient Physical Therapy Visit Information Visit Information Visit Type Treatment Note Visit Start Time 10:30 Visit Stop Time 11:15 Total Visit Minutes 45 Visit Number 16 Number of ASSOCIATE DESIGNER Visits 2 PT-OP-B Current Condition Start: 11/05/18 18:49 Freq: Status: Active Protocol: Document 11/06/18 13:45 [facility] (Rec: 11/06/18 14:32 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 She had a R ant temporal lobe resection in 10/19. Pt could walk without AD prior to surgery and was indep with ADLs. Pt has had weakness on L side since she was an so she has worn DAFO since then. At this time the dynamic aspect is stabilized. Pt returned home from inpatient rehab 10/31. Mom helps pt bath with bath chair. Mom helps some w/L side dressing but she is able to do indep also. Pt has selective mutism. Treatment Goals Patient/Caregiver Goals Be able to ride her bike. Be able to get around a lot more. PT-OP-C Subjective Start: 11/05/18 18:49 Freq: Status: Active Protocol: Document 01/07/19 12:12 SA (Rec: 01/07/19 12:20 SA [email or web address]) OP-PT Subjective Patient Comments Patient Comments Pt demonstrates ability to ues L hand/arm well but limits it 's use when in crowded areas or when she feels she is being watched. PT-OP-D Balance Start: 11/05/18 18:51 Freq: Status: Active Protocol: Document 11/06/18 13:45 [facility] (Rec: 11/06/18 18:04 [facility] [email or web address]) Balance Tests Ventura Balance Test Ventura Balance Test Score 20 Ventura Impairment Rating 60 to 79% Impaired (Score 12- 22) PT-OP-E Functional Tests Start: 11/05/18 18:51 Freq: Status: Active Protocol: Document 11/06/18 13:45 [facility] (Rec: 11/06/18 18:04 [facility] [email or web address]) Functional Tests Five Times Sit to Stand Test Score 33 sec Comments use of UE Timed Up and Go (TUG) Score 39 sec Tinetti Balance and Gait Assessment Composite Score 11 Composite Score Impairment Rating 60 to <80% Impaired (Score 6- 11) PT-OP-G Mobility & Gait Start: 11/05/18 18:51 Freq: Status: Active Protocol: Document 11/06/18 13:45 [facility] (Rec: 11/06/18 14:32 [facility] [id number]) OP Mobility Evaluation Bed Mobility Supine to and from Sit Pt required assist w/LLE for bed mobility to L side of bed. OP Gait Assessment Comments Gait Comments Amb w/NBQC in R hand with dec stance time on LLE and dec step length of RLE & clearance . PT-OP-M Strength Start: 11/05/18 18:51 Freq: Status: Active Protocol: Document 11/06/18 13:45 [facility] (Rec: 11/06/18 14:32 [facility] [id number]) Hip Strength Hip Manual Muscle Testing Right Flexion (L2) 4 Good External Rotation 4 Good Internal Rotation 4 Good Left Flexion (L2) 1 Trace Extension (S1) 2- Poor- Abduction 1 Trace Knee Strength Knee Manual Muscle Testing Right Flexion (S2) 4 Good Extension (L3) 4 Good Left Flexion (S2) 1 Trace Extension (L3) 1 Trace Ankle/Foot Strength Ankle and Foot Manual Muscle Testing Right Dorsiflexion (L4) 5 Normal Plantarflexion (S1) 5 Normal Comments tested seated Left Dorsiflexion (L4) 0 Zero PT-OP-Q Treatments Start: 11/05/18 18:49 Freq: Status: Active Protocol: Document 01/07/19 12:12 SA (Rec: 01/07/19 12:20 SA [email or web address]) Cardio Equipment Recumbent Elliptical (Data Driven Delivery System) Duration (Minutes) 5 Resistance 4 Other RUE/LEs Gym Equipment Shuttle Balance red clips Details fwd & side: WBOS & NBOS Comments Focused use of LUE with balloon tapping and holding rail. Therapeutic Exercises Sidelying Exercises hip abd Side left Reps/Minutes 15 Sitting Exercises knee extension Sitting Exercise Name long arc quad Side left Resistance manual resist and 1 lb DB Reps/Minutes 10 reps each Standing Exercises sit to stand Standing Exercise Name sit to stand w/use of quad cane Equipment Used 2nd set w./disc Reps/Minutes 10x2 Comments lowest setting on large black table- firm& R foot on yellow disc Neuro Re-Education Treatment Balance Activities Standing balance with LUE movements Details hand claps, grasping, reaching Reps/Duration 5 min Comments at rail fwd/back Details fwd back walking w/out rail Reps/Duration 3 laps hurdles Details step to Reps/Duration 6 laps rails prn NBOS Details on black theradisc Reps/Duration EC & balloon volley w/hands Lateral stepping in //bars Surface level Equipment //bars Reps/Duration 4 lengths Comments LUE grasping bar, LLE elevating rather than sliding balloon volley with LEs Details standing @ // bars- balloon volley with aide throwing balloon at pt's feet Equipment // bars Comments bilateral- 1 set L, 1 set R x15 then alternating x15 reps; CGA PT-OP-S Aquatic Treatment Start: 11/17/18 15:12 Freq: Status: Active Protocol: Document 01/05/19 11:30 [facility] (Rec: 01/05/19 13:40 [facility] [id number]) Aquatics Treatment Pool Entry/Exit Pool Entry/Exit Method Stairs Assistance Standby Assistance Water Walking Marching Water Level Chest Level Level of Assistance Standby Assistance Monster Walk Water Level Chest Level Level of Assistance Contact Guard Assistance Minimal Assistance Comments manual assist LEs (L>R) Sideways Water Level Chest Level Comments cues for toe and body alignment Backwards Water Level Chest Level Level of Assistance Contact Guard Assistance Forwards Water Level Chest Level Level of Assistance Standby Assistance Lower Extremity Exercises squats Reps/Duration 10x Comments cues for increased weight- bearing left LE HS curls, Knee extension Details at wall with handhold Body Position Standing Water Level Waist Level Reps/Duration 15 bilat Comments manual assist LEs (L>R) hip flex/ext, ab/ad Details encouraging no UE support Body Position Standing Water Level Waist Level Reps/Duration 10 bilat ea Upper Extremity Exercises fabrication and assembly supervisor balls with left hand Equipment small balls Reps/Duration 6 balls x 3 Comments Pt picks up balls with left hand and places them in basket . fabrication and assembly supervisor balls with sm noodle Equipment small noodle and small balls Reps/Duration 6 balls x 3 Comments Pt needs cues to keep ball away from body while picking it up. push/pull with long barbell Reps/Duration 10x ball push between UE's Equipment 8lb medicine ball Reps/Duration 15x ball hit Body Position Standing Equipment plastic bat, beach ball Reps/Duration 10x2 throw/catch Details lyndsay Body Position Standing Equipment beach ball Reps/Duration 10x Comments cues for open hand left ball bounce Equipment 8lb medicine ball Reps/Duration 20x Comments mod assist left UE figure 8 in coronal plane with UE paddles Details no belt Body Position Standing Water Level Chest Level Reps/Duration 10 horiz ab/ad, lateral ab/ad, flex/ext Body Position Standing Water Level Waist Level Reps/Duration 10 ea Comments manual and verbal cuing Balance SLS bilat Body Position Standing Water Level Chest Level Comments handhold at wall [place] Activities [place] Activities Bicycle Equipment blue float and sm BBs Duration 5 mins Comments blue float and BB's PT-OP-T Assessment and Plan Start: 11/05/18 18:49 Freq: Status: Active Protocol: Document 01/07/19 12:12 SA (Rec: 01/07/19 12:20 SA [email or web address]) Physical Therapy Assessment Assessment Summary Assessment Pt with improving use of hand, needs frequent cues to use during exercise and functional tasks, limits use in front of her mom. Physical Therapy Plan Next Visit Focus/Plan Next Note Type Treatment Note Next Visit Plan Cont to progress LE strengthening, dynamic balance and gait training. Try SPC
--- NOTE | 2019-01-12 15:17 | PT.OTN ---
Current Diagnoses Selective mutism (01/12/19) Epilepsy, unspecified, intractable, without status epilepticus (01/12/19) Hemiplegia, unspecified affecting left nondominant side (01/12/19) Other reduced mobility (01/12/19) Physical Therapy Treatment Note PT-OP-A Visit Information Start: 11/05/18 18:49 Freq: Status: Active Protocol: Document 01/12/19 11:30 CLB (Rec: 01/12/19 15:17 CLB [id number]) Out-Patient Physical Therapy Visit Information Visit Information Visit Type Aquatic Treatment Note Visit Start Time 11:30 Visit Stop Time 12:15 Total Visit Minutes 45 Visit Number 17 Number of FISHING TOOL SUPERVISOR Visits 3 PT-OP-B Current Condition Start: 11/05/18 18:49 Freq: Status: Active Protocol: Document 11/06/18 13:45 LR (Rec: 11/06/18 14:32 [facility] [id number]) Current Condition History of Current Condition Onset Date 09/18/18 Current 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 She had a R ant temporal lobe resection in 10/19. Pt could walk without AD prior to surgery and was indep with ADLs. Pt has had weakness on L side since she was an so she has worn DAFO since then. At this time the dynamic aspect is stabilized. Pt returned home from inpatient rehab 10/31. Mom helps pt bath with bath chair. Mom helps some w/L side dressing but she is able to do indep also. Pt has selective mutism. Treatment Goals Patient/Caregiver Goals Be able to ride her bike. Be able to get around a lot more. PT-OP-C Subjective Start: 11/05/18 18:49 Freq: Status: Active Protocol: Document 01/12/19 11:30 CLB (Rec: 01/12/19 15:17 CLB [id number]) OP-PT Subjective Patient Comments Patient Comments Mom states pt had a good weekend and was looking forward to being in the pool. PT-OP-D Balance Start: 11/05/18 18:51 Freq: Status: Active Protocol: Document 11/06/18 13:45 [facility] (Rec: 11/06/18 18:04 [facility] [email or web address]) Balance Tests Ventura Balance Test Ventura Balance Test Score 20 Ventura Impairment Rating 60 to 79% Impaired (Score 12- 22) PT-OP-E Functional Tests Start: 11/05/18 18:51 Freq: Status: Active Protocol: Document 11/06/18 13:45 [facility] (Rec: 11/06/18 18:04 [facility] [email or web address]) Functional Tests Five Times Sit to Stand Test Score 33 sec Comments use of UE Timed Up and Go (TUG) Score 39 sec Tinetti Balance and Gait Assessment Composite Score 11 Composite Score Impairment Rating 60 to <80% Impaired (Score 6- 11) PT-OP-G Mobility & Gait Start: 11/05/18 18:51 Freq: Status: Active Protocol: Document 11/06/18 13:45 [facility] (Rec: 11/06/18 14:32 [facility] [id number]) OP Mobility Evaluation Bed Mobility Supine to and from Sit Pt required assist w/LLE for bed mobility to L side of bed. OP Gait Assessment Comments Gait Comments Amb w/NBQC in R hand with dec stance time on LLE and dec step length of RLE & clearance . PT-OP-M Strength Start: 11/05/18 18:51 Freq: Status: Active Protocol: Document 11/06/18 13:45 [facility] (Rec: 11/06/18 14:32 [facility] [id number]) Hip Strength Hip Manual Muscle Testing Right Flexion (L2) 4 Good External Rotation 4 Good Internal Rotation 4 Good Left Flexion (L2) 1 Trace Extension (S1) 2- Poor- Abduction 1 Trace Knee Strength Knee Manual Muscle Testing Right Flexion (S2) 4 Good Extension (L3) 4 Good Left Flexion (S2) 1 Trace Extension (L3) 1 Trace Ankle/Foot Strength Ankle and Foot Manual Muscle Testing Right Dorsiflexion (L4) 5 Normal Plantarflexion (S1) 5 Normal Comments tested seated Left Dorsiflexion (L4) 0 Zero PT-OP-Q Treatments Start: 11/05/18 18:49 Freq: Status: Active Protocol: Document 01/07/19 12:12 SA (Rec: 01/07/19 12:20 SA [email or web address]) Cardio Equipment Recumbent Elliptical (Biodex) Duration (Minutes) 5 Resistance 4 Other RUE/LEs Gym Equipment Shuttle Balance red clips Details fwd & side: WBOS & NBOS Comments Focused use of LUE with balloon tapping and holding rail. Therapeutic Exercises Sidelying Exercises hip abd Side left Reps/Minutes 15 Sitting Exercises knee extension Sitting Exercise Name long arc quad Side left Resistance manual resist and 1 lb DB Reps/Minutes 10 reps each Standing Exercises sit to stand Standing Exercise Name sit to stand w/use of quad cane Equipment Used 2nd set w./disc Reps/Minutes 10x2 Comments lowest setting on large black table- firm& R foot on yellow disc Neuro Re-Education Treatment Balance Activities Standing balance with LUE movements Details hand claps, grasping, reaching Reps/Duration 5 min Comments at rail fwd/back Details fwd back walking w/out rail Reps/Duration 3 laps hurdles Details step to Reps/Duration 6 laps rails prn NBOS Details on black theradisc Reps/Duration EC & balloon volley w/hands Lateral stepping in //bars Surface level Equipment //bars Reps/Duration 4 lengths Comments LUE grasping bar, LLE elevating rather than sliding balloon volley with LEs Details standing @ // bars- balloon volley with aide throwing balloon at pt's feet Equipment // bars Comments bilateral- 1 set L, 1 set R x15 then alternating x15 reps; CGA PT-OP-S Aquatic Treatment Start: 11/17/18 15:12 Freq: Status: Active Protocol: Document 01/12/19 11:30 CLB (Rec: 01/12/19 15:17 [facility]B [id number]) Aquatics Treatment Water Walking Monster Walk Water Level Chest Level Level of Assistance Contact Guard Assistance Minimal Assistance Comments manual assist LEs (L>R) Sideways Water Level Chest Level Comments cues for toe and body alignment Backwards Water Level Chest Level Level of Assistance Contact Guard Assistance Forwards Water Level Chest Level Level of Assistance Standby Assistance Lower Extremity Exercises squats Reps/Duration 10x Comments cues for increased weight- bearing left LE HS curls, Knee extension Details at wall with handhold Body Position Standing Water Level Waist Level Reps/Duration 15 bilat Comments manual assist LEs (L>R) hip flex/ext, ab/ad Details encouraging no UE support Body Position Standing Water Level Waist Level Reps/Duration 10 bilat ea Upper Extremity Exercises woods superintendent balls with left hand Equipment small balls Reps/Duration 6 balls x 3 Comments Pt picks up balls with left hand and places them in basket . woods superintendent balls with sm noodle Equipment small noodle and small balls Reps/Duration 6 balls x 3 Comments Pt needs cues to keep ball away from body while picking it up. push/pull with long barbell Reps/Duration 10x ball push between UE's Equipment 8lb medicine ball Reps/Duration 15x ball hit Body Position Standing Equipment plastic bat, beach ball Reps/Duration 10x2 throw/catch Details lyndsay Body Position Standing Equipment beach ball Reps/Duration 10x Comments cues for open hand left ball bounce Equipment 8lb medicine ball Reps/Duration 20x Comments mod assist left UE figure 8 in coronal plane with UE paddles Details no belt Body Position Standing Water Level Chest Level Reps/Duration 10 horiz ab/ad, lateral ab/ad, flex/ext Body Position Standing Water Level Waist Level Reps/Duration 10 ea Comments manual and verbal cuing Balance SLS bilat Body Position Standing Water Level Chest Level Comments handhold at wall PT-OP-T Assessment and Plan Start: 11/05/18 18:49 Freq: Status: Active Protocol: Document 01/12/19 11:30 CLB (Rec: 01/12/19 15:17 CLB [id number]) Physical Therapy Assessment Assessment Summary Assessment Pt improving with willingness to use left arm and hand to perform activities. Pt improving with balance with water walking. Physical Therapy Plan Frequency and Duration Frequency of Treatment 2x/Week Duration of Treatment 3 months Plan of Care Start Date 11/06/18 Plan of Care End Date 02/06/19 Next Visit Focus/Plan Next Note Type Treatment Note Next Visit Plan Cont to progress LE strengthening, dynamic balance and gait training. Try SPC
--- NOTE | 2019-01-14 19:01 | PT.OTN ---
Current Diagnoses Selective mutism (01/14/19) Epilepsy, unspecified, intractable, without status epilepticus (01/14/19) Hemiplegia, unspecified affecting left nondominant side (01/14/19) Other reduced mobility (01/14/19) Physical Therapy Treatment Note PT-OP-A Visit Information Start: 11/05/18 18:49 Freq: Status: Active Protocol: Document 01/14/19 16:21 AR (Rec: 01/14/19 18:59 AR [email or web address]) Out-Patient Physical Therapy Visit Information Visit Information Visit Type Treatment Note Visit Start Time 10:30 Visit Stop Time 11:12 Total Visit Minutes 42 Visit Number 18 Number of INSURANCE AUDITOR Visits 0 PT-OP-B Current Condition Start: 11/05/18 18:49 Freq: Status: Active Protocol: Document 11/06/18 13:45 [facility] (Rec: 11/06/18 14:32 [facility] [id number]) Current Condition History of Current Condition Onset Date 09/18/18 Current 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 She had a R ant temporal lobe resection in 10/19. Pt could walk without AD prior to surgery and was indep with ADLs. Pt has had weakness on L side since she was an so she has worn DAFO since then. At this time the dynamic aspect is stabilized. Pt returned home from inpatient rehab 10/31. Mom helps pt bath with bath chair. Mom helps some w/L side dressing but she is able to do indep also. Pt has selective mutism. Treatment Goals Patient/Caregiver Goals Be able to ride her bike. Be able to get around a lot more. PT-OP-C Subjective Start: 11/05/18 18:49 Freq: Status: Active Protocol: Document 01/14/19 16:21 AR (Rec: 01/14/19 18:59 AR [email or web address]) OP-PT Subjective Patient Comments Patient Comments Mom and Mona were open to trying to progress to using a single point cane. PT-OP-D Balance Start: 11/05/18 18:51 Freq: Status: Active Protocol: Document 11/06/18 13:45 LR (Rec: 11/06/18 18:04 [facility] [email or web address]) Balance Tests Shea Balance Test Shea Balance Test Score 20 Shea Impairment Rating 60 to 79% Impaired (Score 12- 22) PT-OP-E Functional Tests Start: 11/05/18 18:51 Freq: Status: Active Protocol: Document 11/06/18 13:45 [facility] (Rec: 11/06/18 18:04 [facility] [email or web address]) Functional Tests Five Times Sit to Stand Test Score 33 sec Comments use of UE Timed Up and Go (TUG) Score 39 sec Tinetti Balance and Gait Assessment Composite Score 11 Composite Score Impairment Rating 60 to <80% Impaired (Score 6- 11) PT-OP-G Mobility & Gait Start: 11/05/18 18:51 Freq: Status: Active Protocol: Document 11/06/18 13:45 [facility] (Rec: 11/06/18 14:32 [facility] [id number]) OP Mobility Evaluation Bed Mobility Supine to and from Sit Pt required assist w/LLE for bed mobility to L side of bed. OP Gait Assessment Comments Gait Comments Amb w/NBQC in R hand with dec stance time on LLE and dec step length of RLE & clearance . PT-OP-M Strength Start: 11/05/18 18:51 Freq: Status: Active Protocol: Document 11/06/18 13:45 [facility] (Rec: 11/06/18 14:32 [facility] [id number]) Hip Strength Hip Manual Muscle Testing Right Flexion (L2) 4 Good External Rotation 4 Good Internal Rotation 4 Good Left Flexion (L2) 1 Trace Extension (S1) 2- Poor- Abduction 1 Trace Knee Strength Knee Manual Muscle Testing Right Flexion (S2) 4 Good Extension (L3) 4 Good Left Flexion (S2) 1 Trace Extension (L3) 1 Trace Ankle/Foot Strength Ankle and Foot Manual Muscle Testing Right Dorsiflexion (L4) 5 Normal Plantarflexion (S1) 5 Normal Comments tested seated Left Dorsiflexion (L4) 0 Zero PT-OP-Q Treatments Start: 11/05/18 18:49 Freq: Status: Active Protocol: Document 01/14/19 16:21 AR (Rec: 01/14/19 16:50 AR [email or web address]) Gym Equipment Shuttle Recovery Bilateral Squats Details cued to used B LE equally Resistance 87 lbs Shuttle Recovery Platform Unstable Reps/Time 2x10 Therapeutic Exercises Sitting Exercises DF Sitting Exercise Name long sitting, DF eversion Side left Resistance manual resistance Reps/Minutes 10 Comments pt resistance not felt until neutral ankle position knee extension Sitting Exercise Name long arc quad Side left Resistance 2lbs ankle weight Reps/Minutes 2x10 Comments with balloon kicks Gait Training Gait Activity Gait Description single point cane Device Used SPC Level of Assistance CGA Surface level Distance/Duration 20 feet Treatment Focus education on use of new device Comments pt seemed to prefer her quad cane over the SPC, although did not need any AD to amb ( with CGA). Was not safe to amb I w/o AD Neuro Re-Education Treatment Balance Activities Bosu Details static standing on bosu Equipment bosu Reps/Duration 4x 5 sec Comments pt was unable to maintain balance w/o use of railing for more than 5 seconds standing on kiana disc Details RLE on kiana disc c balloon volley Surface yellow kiana disc Reps/Duration 4 minutes Comments cueing to maintain stable ankle position on kiana disc stager step Details bilateral, with balloon volley Surface level Equipment // bars Reps/Duration 4 minutes Comments CGA, pt used hands to catch balance multiple times. Was cued to use R and L UE for balloon volley. hurdles Details step over Reps/Duration 6 laps, no rails Comments hurdles flipped upside down Lateral stepping in //bars Surface level Equipment // bars Reps/Duration 6 lengths Comments no rails, cueing to lift LLE during side step PT-OP-S Aquatic Treatment Start: 11/17/18 15:12 Freq: Status: Active Protocol: Document 01/12/19 11:30 [facility] (Rec: 01/12/19 15:17 [facility] [id number]) Aquatics Treatment Water Walking Monster Walk Water Level Chest Level Level of Assistance Contact Guard Assistance Minimal Assistance Comments manual assist LEs (L>R) Sideways Water Level Chest Level Comments cues for toe and body alignment Backwards Water Level Chest Level Level of Assistance Contact Guard Assistance Forwards Water Level Chest Level Level of Assistance Standby Assistance Lower Extremity Exercises squats Reps/Duration 10x Comments cues for increased weight- bearing left LE HS curls, Knee extension Details at wall with handhold Body Position Standing Water Level Waist Level Reps/Duration 15 bilat Comments manual assist LEs (L>R) hip flex/ext, ab/ad Details encouraging no UE support Body Position Standing Water Level Waist Level Reps/Duration 10 bilat ea Upper Extremity Exercises drywall application supervisor balls with left hand Equipment small balls Reps/Duration 6 balls x 3 Comments Pt picks up balls with left hand and places them in basket . drywall application supervisor balls with sm noodle Equipment small noodle and small balls Reps/Duration 6 balls x 3 Comments Pt needs cues to keep ball away from body while picking it up. push/pull with long barbell Reps/Duration 10x ball push between UE's Equipment 8lb medicine ball Reps/Duration 15x ball hit Body Position Standing Equipment plastic bat, beach ball Reps/Duration 10x2 throw/catch Details lyndsay Body Position Standing Equipment beach ball Reps/Duration 10x Comments cues for open hand left ball bounce Equipment 8lb medicine ball Reps/Duration 20x Comments mod assist left UE figure 8 in coronal plane with UE paddles Details no belt Body Position Standing Water Level Chest Level Reps/Duration 10 horiz ab/ad, lateral ab/ad, flex/ext Body Position Standing Water Level Waist Level Reps/Duration 10 ea Comments manual and verbal cuing Balance SLS bilat Body Position Standing Water Level Chest Level Comments handhold at wall PT-OP-T Assessment and Plan Start: 11/05/18 18:49 Freq: Status: Active Protocol: Document 01/14/19 16:21 AR (Rec: 01/14/19 16:50 AR [email or web address]) Physical Therapy Assessment Goals SHEA Short Term Goal (STG) Pt will improve score to 30/56 to demonstrate improved balance & safety. STG Duration 12/20/18 Training Mgr Goal (LTG) Pt will improve score to >35/ 56 in order to demonstrate being safe with AD. LTG Duration 02/06/19 tinnetti Short Term Goal (STG) Pt will improve score to 19/28 in order to dec risk for falls STG Duration 12/20/18 Residential Goal (LTG) Pt will improve score to 24/28 in order to be at low risk for falls LTG Duration 02/06/19 gait Short Term Goal (STG) Pt will be able to amb with SPC safely STG Duration 12/20/18 Training Mgr Goal (LTG) Pt will be able to amb with DAFO and limited cane usage for balance with overall good B step through and foot clearance. LTG Duration 02/06/19 Assessment Summary Assessment Pt was able to amb w/o AD. but still required CGA for safety . Treatment focused on strengthing eccentric DF and eversion to inc ankle stability during amb. Pt was able to tolerate exercises on an unstable surface. Physical Therapy Plan Frequency and Duration Frequency of Treatment 2x/Week Duration of Treatment 3 months Plan of Care Start Date 11/06/18 Plan of Care End Date 02/06/19 Next Visit Focus/Plan Next Note Type Treatment Note Next Visit Plan cont to progress ankle stability
--- NOTE | 2019-01-19 15:22 | PT.OTN ---
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) Epilepsy, unspecified, intractable, without status epilepticus (01/19/19) Hemiplegia, unspecified affecting left nondominant side (01/19/19) Other reduced mobility (01/19/19) Physical Therapy Treatment Note PT-OP-A Visit Information Start: 11/05/18 18:49 Freq: Status: Active Protocol: Document 01/19/19 11:30 CLB (Rec: 01/19/19 15:22 CLB [id number]) Out-Patient Physical Therapy Visit Information Visit Information Visit Type Aquatic Treatment Note Visit Start Time 11:30 Visit Stop Time 12:15 Total Visit Minutes 45 Visit Number 19 Number of MONKEY [facility]ED[facility] Visits 1 PT-OP-B Current Condition Start: 11/05/18 18:49 Freq: Status: Active Protocol: Document 11/06/18 13:45 LR (Rec: 11/06/18 14:32 LR [id number]) Current Condition History of Current Condition Onset Date 09/18/18 Current 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 She had a R ant temporal lobe resection in 10/19. Pt could walk without AD prior to surgery and was indep with ADLs. Pt has had weakness on L side since she was an so she has worn DAFO since then. At this time the dynamic aspect is stabilized. Pt returned home from inpatient rehab 10/31. Mom helps pt bath with bath chair. Mom helps some w/L side dressing but she is able to do indep also. Pt has selective mutism. Treatment Goals Patient/Caregiver Goals Be able to ride her bike. Be able to get around a lot more. PT-OP-C Subjective Start: 11/05/18 18:49 Freq: Status: Active Protocol: Document 01/19/19 11:30 CLB (Rec: 01/19/19 15:22 CLB [id number]) OP-PT Subjective Patient Comments Patient Comments Pt agreed that using weights on her feet helped her in the deep water. PT-OP-D Balance Start: 11/05/18 18:51 Freq: Status: Active Protocol: Document 11/06/18 13:45 LR (Rec: 11/06/18 18:04 [facility] [id number]) Balance Tests Ventura Balance Test Ventura Balance Test Score 20 Ventura Impairment Rating 60 to 79% Impaired (Score 12- 22) PT-OP-E Functional Tests Start: 11/05/18 18:51 Freq: Status: Active Protocol: Document 11/06/18 13:45 [facility] (Rec: 11/06/18 18:04 [facility] [id number]) Functional Tests Five Times Sit to Stand Test Score 33 sec Comments use of UE Timed Up and Go (TUG) Score 39 sec Tinetti Balance and Gait Assessment Composite Score 11 Composite Score Impairment Rating 60 to <80% Impaired (Score 6- 11) PT-OP-G Mobility & Gait Start: 11/05/18 18:51 Freq: Status: Active Protocol: Document 11/06/18 13:45 [facility] (Rec: 11/06/18 14:32 [facility] [id number]) OP Mobility Evaluation Bed Mobility Supine to and from Sit Pt required assist w/LLE for bed mobility to L side of bed. OP Gait Assessment Comments Gait Comments Amb w/NBQC in R hand with dec stance time on LLE and dec step length of RLE & clearance . PT-OP-M Strength Start: 11/05/18 18:51 Freq: Status: Active Protocol: Document 11/06/18 13:45 [facility] (Rec: 11/06/18 14:32 [facility] [id number]) Hip Strength Hip Manual Muscle Testing Right Flexion (L2) 4 Good External Rotation 4 Good Internal Rotation 4 Good Left Flexion (L2) 1 Trace Extension (S1) 2- Poor- Abduction 1 Trace Knee Strength Knee Manual Muscle Testing Right Flexion (S2) 4 Good Extension (L3) 4 Good Left Flexion (S2) 1 Trace Extension (L3) 1 Trace Ankle/Foot Strength Ankle and Foot Manual Muscle Testing Right Dorsiflexion (L4) 5 Normal Plantarflexion (S1) 5 Normal Comments tested seated Left Dorsiflexion (L4) 0 Zero PT-OP-Q Treatments Start: 11/05/18 18:49 Freq: Status: Active Protocol: Document 01/14/19 16:21 AR (Rec: 01/14/19 16:50 AR [email or web address]) Gym Equipment Shuttle Recovery Bilateral Squats Details cued to used B LE equally Resistance 87 lbs Shuttle Recovery Platform Unstable Reps/Time 2x10 Therapeutic Exercises Sitting Exercises DF Sitting Exercise Name long sitting, DF eversion Side left Resistance manual resistance Reps/Minutes 10 Comments pt resistance not felt until neutral ankle position knee extension Sitting Exercise Name long arc quad Side left Resistance 2lbs ankle weight Reps/Minutes 2x10 Comments with balloon kicks Gait Training Gait Activity Gait Description single point cane Device Used SPC Level of Assistance CGA Surface level Distance/Duration 20 feet Treatment Focus education on use of new device Comments pt seemed to prefer her quad cane over the SPC, although did not need any AD to amb ( with CGA). Was not safe to amb I w/o AD Neuro Re-Education Treatment Balance Activities Bosu Details static standing on bosu Equipment bosu Reps/Duration 4x 5 sec Comments pt was unable to maintain balance w/o use of railing for more than 5 seconds standing on kiana disc Details RLE on kiana disc c balloon volley Surface yellow kiana disc Reps/Duration 4 minutes Comments cueing to maintain stable ankle position on kiana disc stager step Details bilateral, with balloon volley Surface level Equipment // bars Reps/Duration 4 minutes Comments CGA, pt used hands to catch balance multiple times. Was cued to use R and L UE for balloon volley. hurdles Details step over Reps/Duration 6 laps, no rails Comments hurdles flipped upside down Lateral stepping in //bars Surface level Equipment // bars Reps/Duration 6 lengths Comments no rails, cueing to lift LLE during side step PT-OP-S Aquatic Treatment Start: 11/17/18 15:12 Freq: Status: Active Protocol: Document 01/19/19 11:30 CLB (Rec: 01/19/19 15:22 CLB [id number]) Aquatics Treatment Pool Entry/Exit Pool Entry/Exit Method Stairs Assistance Standby Assistance Water Walking Marching Water Level Chest Level Level of Assistance Standby Assistance Monster Walk Water Level Chest Level Walking Equipment Dots on pool floor Level of Assistance Contact Guard Assistance Minimal Assistance Comments manual assist LEs (L>R) Sideways Water Level Chest Level Comments cues for toe and body alignment Backwards Water Level Chest Level Level of Assistance Contact Guard Assistance Forwards Water Level Chest Level Level of Assistance Standby Assistance Lower Extremity Exercises Step ups Body Position Standing Water Level Chest Level Equipment 8 Reps/Duration 10 sideways and forward Comments HH squats Reps/Duration 10x Comments cues for increased weight- bearing left LE HS curls, Knee extension Details at wall with handhold Body Position Standing Water Level Waist Level Reps/Duration 15 bilat Comments manual assist LEs (L>R) hip flex/ext, ab/ad Details encouraging no UE support Body Position Standing Water Level Waist Level Reps/Duration 10 bilat ea Upper Extremity Exercises Push large dot through water Equipment red dot Reps/Duration 10x Comments flat hand on dot figure 8 supervisor beehive kiln balls with sm noodle Equipment small noodle and small balls Reps/Duration 6 balls x 3 Comments Pt needs cues to keep ball away from body while picking it up. ball push between UE's Equipment 8lb medicine ball Reps/Duration 15x throw/catch Details lyndsay Body Position Standing Equipment beach ball Reps/Duration 10x Comments cues for open hand left ball bounce Equipment 8lb medicine ball Reps/Duration 20x Comments mod assist left UE horiz ab/ad, lateral ab/ad, flex/ext Body Position Standing Water Level Waist Level Reps/Duration 10 ea Comments manual and verbal cuing Martin Activities Martin Activities Bicycle Equipment blue float, 2# wt Duration 5 mins Comments blue float PT-OP-T Assessment and Plan Start: 11/05/18 18:49 Freq: Status: Active Protocol: Document 01/19/19 11:30 CLB (Rec: 01/19/19 15:22 CLB [id number]) Physical Therapy Assessment Assessment Summary Assessment Pt improved with maneuvering in deep water requiring cues for posture and encouragement to use LUE. Physical Therapy Plan Frequency and Duration Frequency of Treatment 2x/Week Duration of Treatment 3 months Plan of Care Start Date 11/06/18 Plan of Care End Date 02/06/19 Next Visit Focus/Plan Next Note Type Treatment Note Next Visit Plan Progress LE strength
--- NOTE | 2019-01-21 17:07 | PT.OTN ---
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) Epilepsy, unspecified, intractable, without status epilepticus (01/21/19) Hemiplegia, unspecified affecting left nondominant side (01/21/19) Other reduced mobility (01/21/19) Physical Therapy Treatment Note PT-OP-A Visit Information Start: 11/05/18 18:49 Freq: Status: Active Protocol: Document 01/21/19 13:16 AR (Rec: 01/21/19 13:19 AR [id number]) Out-Patient Physical Therapy Visit Information Visit Information Visit Type Treatment Note Visit Start Time 10:35 Visit Stop Time 11:15 Total Visit Minutes 40 Visit Number 20 Number of [employer]NAGER [employer] Visits 0 PT-OP-B Current Condition Start: 11/05/18 18:49 Freq: Status: Active Protocol: Document 11/06/18 13:45 [facility] (Rec: 11/06/18 14:32 [facility] [id number]) Current Condition History of Current Condition Onset Date 09/18/18 Current 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 She had a R ant temporal lobe resection in 10/19. Pt could walk without AD prior to surgery and was indep with ADLs. Pt has had weakness on L side since she was an so she has worn DAFO since then. At this time the dynamic aspect is stabilized. Pt returned home from inpatient rehab 10/31. Mom helps pt bath with bath chair. Mom helps some w/L side dressing but she is able to do indep also. Pt has selective mutism. Treatment Goals Patient/Caregiver Goals Be able to ride her bike. Be able to get around a lot more. PT-OP-C Subjective Start: 11/05/18 18:49 Freq: Status: Active Protocol: Document 01/21/19 13:16 AR (Rec: 01/21/19 13:19 AR [email or web address]) OP-PT Subjective Patient Comments Patient Comments Pt agreed to getting a single- point cane, which her grandmother was going to get her after therapy today. PT-OP-D Balance Start: 11/05/18 18:51 Freq: Status: Active Protocol: Document 11/06/18 13:45 [facility] (Rec: 11/06/18 18:04 [facility] [email or web address]) Balance Tests Shea Balance Test Shea Balance Test Score 20 Shea Impairment Rating 60 to 79% Impaired (Score 12- 22) PT-OP-E Functional Tests Start: 11/05/18 18:51 Freq: Status: Active Protocol: Document 11/06/18 13:45 [facility] (Rec: 11/06/18 18:04 [facility] [email or web address]) Functional Tests Five Times Sit to Stand Test Score 33 sec Comments use of UE Timed Up and Go (TUG) Score 39 sec Tinetti Balance and Gait Assessment Composite Score 11 Composite Score Impairment Rating 60 to <80% Impaired (Score 6- 11) PT-OP-G Mobility & Gait Start: 11/05/18 18:51 Freq: Status: Active Protocol: Document 11/06/18 13:45 [facility] (Rec: 11/06/18 14:32 [facility] [id number]) OP Mobility Evaluation Bed Mobility Supine to and from Sit Pt required assist w/LLE for bed mobility to L side of bed. OP Gait Assessment Comments Gait Comments Amb w/NBQC in R hand with dec stance time on LLE and dec step length of RLE & clearance . PT-OP-M Strength Start: 11/05/18 18:51 Freq: Status: Active Protocol: Document 11/06/18 13:45 [facility] (Rec: 11/06/18 14:32 [facility] [id number]) Hip Strength Hip Manual Muscle Testing Right Flexion (L2) 4 Good External Rotation 4 Good Internal Rotation 4 Good Left Flexion (L2) 1 Trace Extension (S1) 2- Poor- Abduction 1 Trace Knee Strength Knee Manual Muscle Testing Right Flexion (S2) 4 Good Extension (L3) 4 Good Left Flexion (S2) 1 Trace Extension (L3) 1 Trace Ankle/Foot Strength Ankle and Foot Manual Muscle Testing Right Dorsiflexion (L4) 5 Normal Plantarflexion (S1) 5 Normal Comments tested seated Left Dorsiflexion (L4) 0 Zero PT-OP-Q Treatments Start: 11/05/18 18:49 Freq: Status: Active Protocol: Document 01/21/19 13:16 AR (Rec: 01/21/19 14:30 AR [id number]) Cardio Equipment Recumbent Stepper (Sci-Fit) Duration (Minutes) 6 Resistance 10 Other PT helped reposition hand 3 times Therapeutic Exercises Standing Exercises kicking ball Standing Exercise Name kicking ball Side bilateral Equipment Used purple ball, // bars Reps/Minutes 20 each side Comments stronger kicking on R LE Step ups Standing Exercise Name step ups Side bilateral Resistance none Equipment Used 4 stairs Reps/Minutes 15 each side Comments cueing for hip, knee and ankle flexion Step Overs Standing Exercise Name step overs Side bilateral Resistance none Equipment Used 1/2 foam roll Reps/Minutes 20 each Comments cueing for hip, knee and ankle flexion to avoid circumduction Gait Training Gait Activity Gait Description single point cane Device Used SPC Level of Assistance SPV Surface level Distance/Duration 250 feet Treatment Focus cueing for eccentric DF control and foot alignment during heel strike Comments Pt lacks eccentric DF control during heel strike but improved with cueing Neuro Re-Education Treatment Balance Activities tandem Details bilateral Surface level Equipment // bars Reps/Duration 2 min each Comments CGA. pt cued to not use // bars for support, unless she lost balance Bosu Details static standing on bosu Equipment bosu Reps/Duration 5x 10 seconds Comments pt was able to maintain balance with NBOS for 5-10 seconds w/o using rails standing on kiana disc Details RLE, LLE on kiana disc w balloon volley Surface yellow kiana disc Equipment balloon Reps/Duration 2 min each Comments cueing to maintain ankle position and use of L UE for hitting balloon PT-OP-S Aquatic Treatment Start: 11/17/18 15:12 Freq: Status: Active Protocol: Document 01/19/19 11:30 CLB (Rec: 01/19/19 15:22 CLB [id number]) Aquatics Treatment Pool Entry/Exit Pool Entry/Exit Method Stairs Assistance Standby Assistance Water Walking Marching Water Level Chest Level Level of Assistance Standby Assistance Monster Walk Water Level Chest Level Walking Equipment Dots on pool floor Level of Assistance Contact Guard Assistance Minimal Assistance Comments manual assist LEs (L>R) Sideways Water Level Chest Level Comments cues for toe and body alignment Backwards Water Level Chest Level Level of Assistance Contact Guard Assistance Forwards Water Level Chest Level Level of Assistance Standby Assistance Lower Extremity Exercises Step ups Body Position Standing Water Level Chest Level Equipment 8 Reps/Duration 10 sideways and forward Comments HH squats Reps/Duration 10x Comments cues for increased weight- bearing left LE HS curls, Knee extension Details at wall with handhold Body Position Standing Water Level Waist Level Reps/Duration 15 bilat Comments manual assist LEs (L>R) hip flex/ext, ab/ad Details encouraging no UE support Body Position Standing Water Level Waist Level Reps/Duration 10 bilat ea Upper Extremity Exercises Push large dot through water Equipment red dot Reps/Duration 10x Comments flat hand on dot figure 8 mold yard supervisor balls with sm noodle Equipment small noodle and small balls Reps/Duration 6 balls x 3 Comments Pt needs cues to keep ball away from body while picking it up. ball push between UE's Equipment 8lb medicine ball Reps/Duration 15x throw/catch Details lyndsay Body Position Standing Equipment beach ball Reps/Duration 10x Comments cues for open hand left ball bounce Equipment 8lb medicine ball Reps/Duration 20x Comments mod assist left UE horiz ab/ad, lateral ab/ad, flex/ext Body Position Standing Water Level Waist Level Reps/Duration 10 ea Comments manual and verbal cuing [place] Activities [place] Activities Bicycle Equipment blue float, 2# wt Duration 5 mins Comments blue float PT-OP-T Assessment and Plan Start: 11/05/18 18:49 Freq: Status: Active Protocol: Document 01/21/19 13:16 AR (Rec: 01/21/19 14:30 AR [id number]) Physical Therapy Assessment Goals SHEA Short Term Goal (STG) Pt will improve score to 30/56 to demonstrate improved balance & safety. STG Duration 12/20/18 Materials Tech Goal (LTG) Pt will improve score to >35/ 56 in order to demonstrate being safe with AD. LTG Duration 02/06/19 tinnetti Short Term Goal (STG) Pt will improve score to 19/28 in order to dec risk for falls STG Duration 12/20/18 Half-Way Goal (LTG) Pt will improve score to 24/28 in order to be at low risk for falls LTG Duration 02/06/19 gait Short Term Goal (STG) Pt will be able to amb with SPC safely STG Duration 12/20/18 Half-Way Goal (LTG) Pt will be able to amb with DAFO and limited cane usage for balance with overall good B step through and foot clearance. LTG Duration 02/06/19 Assessment Summary Assessment Pt balance on uneven surfaces has improved, but pt still lacks some ankle stability. Aerobic exercise was incorporated today prior to balance and strength training to prime motor cortex. Pt was excited to try the recumbent stepper and tolerated it well. Pt was able to improve gait with cueing and is safe to walk with a SPC. Physical Therapy Plan Frequency and Duration Frequency of Treatment 2x/Week Duration of Treatment 3 months Plan of Care Start Date 11/06/18 Plan of Care End Date 02/06/19 Next Visit Focus/Plan Next Note Type Treatment Note Next Visit Plan cont to incorporate cardio prior to treatment. progress balance exercises as appropriate. add shuttle board LE strengthening
--- NOTE | 2019-01-26 13:54 | PT.OTN ---
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) Epilepsy, unspecified, intractable, without status epilepticus (01/21/19) Hemiplegia, unspecified affecting left nondominant side (01/21/19) Other reduced mobility (01/21/19) Physical Therapy Treatment Note PT-OP-A Visit Information Start: 11/05/18 18:49 Freq: Status: Active Protocol: Document 01/26/19 11:25 CLB (Rec: 01/26/19 13:54 CLB [id number]) Out-Patient Physical Therapy Visit Information Visit Information Visit Type Aquatic Treatment Note Visit Start Time 11:25 Visit Stop Time 12:10 Total Visit Minutes 45 Visit Number 21 Number of FOOT PIECE ASSEMBLER Visits 1 PT-OP-B Current Condition Start: 11/05/18 18:49 Freq: Status: Active Protocol: Document 11/06/18 13:45 [facility] (Rec: 11/06/18 14:32 [facility] [id number]) Current Condition History of Current Condition Onset Date 09/18/18 Current 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 She had a R ant temporal lobe resection in 10/19. Pt could walk without AD prior to surgery and was indep with ADLs. Pt has had weakness on L side since she was an so she has worn DAFO since then. At this time the dynamic aspect is stabilized. Pt returned home from inpatient rehab 10/31. Mom helps pt bath with bath chair. Mom helps some w/L side dressing but she is able to do indep also. Pt has selective mutism. Treatment Goals Patient/Caregiver Goals Be able to ride her bike. Be able to get around a lot more. PT-OP-C Subjective Start: 11/05/18 18:49 Freq: Status: Active Protocol: Document 01/26/19 11:25 CLB (Rec: 01/26/19 13:54 CLB [id number]) OP-PT Subjective Patient Comments Patient Comments Pt states she likes her SPC. PT-OP-D Balance Start: 11/05/18 18:51 Freq: Status: Active Protocol: Document 11/06/18 13:45 LR (Rec: 11/06/18 18:04 [facility] [email or web address]) Balance Tests Shea Balance Test Shea Balance Test Score 20 Shea Impairment Rating 60 to 79% Impaired (Score 12- 22) PT-OP-E Functional Tests Start: 11/05/18 18:51 Freq: Status: Active Protocol: Document 11/06/18 13:45 [facility] (Rec: 11/06/18 18:04 [facility] [email or web address]) Functional Tests Five Times Sit to Stand Test Score 33 sec Comments use of UE Timed Up and Go (TUG) Score 39 sec Tinetti Balance and Gait Assessment Composite Score 11 Composite Score Impairment Rating 60 to <80% Impaired (Score 6- 11) PT-OP-G Mobility & Gait Start: 11/05/18 18:51 Freq: Status: Active Protocol: Document 11/06/18 13:45 [facility] (Rec: 11/06/18 14:32 [facility] [id number]) OP Mobility Evaluation Bed Mobility Supine to and from Sit Pt required assist w/LLE for bed mobility to L side of bed. OP Gait Assessment Comments Gait Comments Amb w/NBQC in R hand with dec stance time on LLE and dec step length of RLE & clearance . PT-OP-M Strength Start: 11/05/18 18:51 Freq: Status: Active Protocol: Document 11/06/18 13:45 [facility] (Rec: 11/06/18 14:32 [facility] [id number]) Hip Strength Hip Manual Muscle Testing Right Flexion (L2) 4 Good External Rotation 4 Good Internal Rotation 4 Good Left Flexion (L2) 1 Trace Extension (S1) 2- Poor- Abduction 1 Trace Knee Strength Knee Manual Muscle Testing Right Flexion (S2) 4 Good Extension (L3) 4 Good Left Flexion (S2) 1 Trace Extension (L3) 1 Trace Ankle/Foot Strength Ankle and Foot Manual Muscle Testing Right Dorsiflexion (L4) 5 Normal Plantarflexion (S1) 5 Normal Comments tested seated Left Dorsiflexion (L4) 0 Zero PT-OP-Q Treatments Start: 11/05/18 18:49 Freq: Status: Active Protocol: Document 01/21/19 13:16 AR (Rec: 01/21/19 14:30 [facility] [id number]) Cardio Equipment Recumbent Stepper (Sci-Fit) Duration (Minutes) 6 Resistance 10 Other PT helped reposition hand 3 times Therapeutic Exercises Standing Exercises kicking ball Standing Exercise Name kicking ball Side bilateral Equipment Used purple ball, // bars Reps/Minutes 20 each side Comments stronger kicking on R LE Step ups Standing Exercise Name step ups Side bilateral Resistance none Equipment Used 4 stairs Reps/Minutes 15 each side Comments cueing for hip, knee and ankle flexion Step Overs Standing Exercise Name step overs Side bilateral Resistance none Equipment Used 1/2 foam roll Reps/Minutes 20 each Comments cueing for hip, knee and ankle flexion to avoid circumduction Gait Training Gait Activity Gait Description single point cane Device Used SPC Level of Assistance SPV Surface level Distance/Duration 250 feet Treatment Focus cueing for eccentric DF control and foot alignment during heel strike Comments Pt lacks eccentric DF control during heel strike but improved with cueing Neuro Re-Education Treatment Balance Activities tandem Details bilateral Surface level Equipment // bars Reps/Duration 2 min each Comments CGA. pt cued to not use // bars for support, unless she lost balance Bosu Details static standing on bosu Equipment bosu Reps/Duration 5x 10 seconds Comments pt was able to maintain balance with NBOS for 5-10 seconds w/o using rails standing on kiana disc Details RLE, LLE on kiana disc w balloon volley Surface yellow kiana disc Equipment balloon Reps/Duration 2 min each Comments cueing to maintain ankle position and use of L UE for hitting balloon PT-OP-S Aquatic Treatment Start: 11/17/18 15:12 Freq: Status: Active Protocol: Document 01/26/19 11:25 CLB (Rec: 01/26/19 13:54 CLB [id number]) Aquatics Treatment Pool Entry/Exit Pool Entry/Exit Method Stairs Assistance Standby Assistance Comments cues to use LUE on rail Water Walking Marching Water Level Chest Level Level of Assistance Standby Assistance Monster Walk Water Level Chest Level Walking Equipment Dots on pool floor Level of Assistance Contact Guard Assistance Minimal Assistance Comments manual assist LEs (L>R) Sideways Water Level Chest Level Comments cues for toe and body alignment Backwards Water Level Chest Level Level of Assistance Contact Guard Assistance Forwards Water Level Chest Level Level of Assistance Standby Assistance Lower Extremity Exercises Hoe downs Water Level Chest Level Equipment Small Noodle Reps/Duration 10 Comments manual assist for alignment hip cw/ccw Water Level Chest Level Reps/Duration 10 bilateral Comments cues to keep leg straight Step ups Reps/Duration forward leading with LLE up then RLE up Comments cues for mm activation squats Reps/Duration 10x Comments cues for increased weight- bearing left LE HS curls, Knee extension Details at wall with handhold Body Position Standing Water Level Waist Level Equipment Small Noodle Reps/Duration 15 bilat Comments manual assist LEs (L>R) hip flex/ext, ab/ad Details encouraging no UE support Body Position Standing Water Level Waist Level Reps/Duration 10 bilat ea Upper Extremity Exercises roving department supervisor balls with left hand Equipment small balls Reps/Duration 6 balls x 3 Comments Pt picks up balls with left hand and places them in basket . push/pull with long barbell Reps/Duration 10x Comments cues to keep elbow close to body. ball push between UE's Equipment 8lb medicine ball Reps/Duration 15x ball bounce Equipment 8lb medicine ball Reps/Duration 30x Comments mod assist left UE Balance SLS bilat Body Position Standing Water Level Chest Level Comments fingertips on edge lifting off PT-OP-T Assessment and Plan Start: 11/05/18 18:49 Freq: Status: Active Protocol: Document 01/26/19 11:25 CLB (Rec: 01/26/19 13:54 CLB [id number]) Physical Therapy Assessment Goals SHEA Short Term Goal (STG) Pt will improve score to 30/56 to demonstrate improved balance & safety. STG Duration 12/20/18 Nursing Home Goal (LTG) Pt will improve score to >35/ 56 in order to demonstrate being safe with AD. LTG Duration 02/06/19 tinnetti Short Term Goal (STG) Pt will improve score to 19/28 in order to dec risk for falls STG Duration 12/20/18 Child Care Supervisor Goal (LTG) Pt will improve score to 24/28 in order to be at low risk for falls LTG Duration 02/06/19 gait Short Term Goal (STG) Pt will be able to amb with SPC safely STG Duration 12/20/18 Nursing Home Goal (LTG) Pt will be able to amb with DAFO and limited cane usage for balance with overall good B step through and foot clearance. LTG Duration 02/06/19 Assessment Summary Assessment Pt improved with cues with using stairs into pool. Pt improving with SLS and step ups leading with LLE and RLE. Pt requires verbal and tactile cues for LLE alignment during hip flx/ext and hoe downs. Physical Therapy Plan Frequency and Duration Frequency of Treatment 2x/Week Duration of Treatment 3 months Plan of Care Start Date 11/06/18 Plan of Care End Date 02/06/19 Next Visit Focus/Plan Next Visit Plan Progress LE strength and balance
--- NOTE | 2019-01-28 12:21 | PT.OTN ---
Current Diagnoses Selective mutism (01/28/19) Epilepsy, unspecified, intractable, without status epilepticus (01/28/19) Hemiplegia, unspecified affecting left nondominant side (01/28/19) Other reduced mobility (01/28/19) Physical Therapy Treatment Note PT-OP-A Visit Information Start: 11/05/18 18:49 Freq: Status: Active Protocol: Document 01/28/19 12:13 SA (Rec: 01/28/19 12:21 SA [email or web address]) Out-Patient Physical Therapy Visit Information Visit Information Visit Type Treatment Note Visit Start Time 10:30 Visit Stop Time 11:15 Total Visit Minutes 45 Visit Number 22 Number of ROLLED GLASS CROSSCUTTER Visits 2 PT-OP-B Current Condition Start: 11/05/18 18:49 Freq: Status: Active Protocol: Document 11/06/18 13:45 [facility] (Rec: 11/06/18 14:32 [facility] [id number]) Current Condition History of Current Condition Onset Date 09/18/18 Current 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 She had a R ant temporal lobe resection in 10/19. Pt could walk without AD prior to surgery and was indep with ADLs. Pt has had weakness on L side since she was an so she has worn DAFO since then. At this time the dynamic aspect is stabilized. Pt returned home from inpatient rehab 10/31. Mom helps pt bath with bath chair. Mom helps some w/L side dressing but she is able to do indep also. Pt has selective mutism. Treatment Goals Patient/Caregiver Goals Be able to ride her bike. Be able to get around a lot more. PT-OP-C Subjective Start: 11/05/18 18:49 Freq: Status: Active Protocol: Document 01/28/19 12:13 SA (Rec: 01/28/19 12:21 [facility] [email or web address]) OP-PT Subjective Patient Comments Patient Comments Pt presents in clinic with SPC and using correctly. Agreeable to use L hand more. PT-OP-D Balance Start: 11/05/18 18:51 Freq: Status: Active Protocol: Document 11/06/18 13:45 [facility] (Rec: 11/06/18 18:04 [facility] [email or web address]) Balance Tests [place] Balance Test [place] Balance Test Score 20 [place] Impairment Rating 60 to 79% Impaired (Score 12- 22) PT-OP-E Functional Tests Start: 11/05/18 18:51 Freq: Status: Active Protocol: Document 11/06/18 13:45 [facility] (Rec: 11/06/18 18:04 [facility] [email or web address]) Functional Tests Five Times Sit to Stand Test Score 33 sec Comments use of UE Timed Up and Go (TUG) Score 39 sec Tinetti Balance and Gait Assessment Composite Score 11 Composite Score Impairment Rating 60 to <80% Impaired (Score 6- 11) PT-OP-G Mobility & Gait Start: 11/05/18 18:51 Freq: Status: Active Protocol: Document 11/06/18 13:45 [facility] (Rec: 11/06/18 14:32 [facility] [id number]) OP Mobility Evaluation Bed Mobility Supine to and from Sit Pt required assist w/LLE for bed mobility to L side of bed. OP Gait Assessment Comments Gait Comments Amb w/NBQC in R hand with dec stance time on LLE and dec step length of RLE & clearance . PT-OP-M Strength Start: 11/05/18 18:51 Freq: Status: Active Protocol: Document 11/06/18 13:45 [facility] (Rec: 11/06/18 14:32 [facility] [id number]) Hip Strength Hip Manual Muscle Testing Right Flexion (L2) 4 Good External Rotation 4 Good Internal Rotation 4 Good Left Flexion (L2) 1 Trace Extension (S1) 2- Poor- Abduction 1 Trace Knee Strength Knee Manual Muscle Testing Right Flexion (S2) 4 Good Extension (L3) 4 Good Left Flexion (S2) 1 Trace Extension (L3) 1 Trace Ankle/Foot Strength Ankle and Foot Manual Muscle Testing Right Dorsiflexion (L4) 5 Normal Plantarflexion (S1) 5 Normal Comments tested seated Left Dorsiflexion (L4) 0 Zero PT-OP-Q Treatments Start: 11/05/18 18:49 Freq: Status: Active Protocol: Document 01/28/19 12:13 SA (Rec: 01/28/19 12:21 [facility] [email or web address]) Cardio Equipment Recumbent Elliptical (Biodex) Duration (Minutes) 7 Resistance 4 Other BUE, no L hand repostioning needed Gym Equipment Shuttle Balance red clips Details red Reps/Duration 6 min Comments tandem, NBOS, weight shifts, LUE reaching and clapping hands. Therapeutic Exercises Standing Exercises kicking ball Standing Exercise Name kicking ball Side bilateral Equipment Used soccer ball, 30 x each side Reps/Minutes at single bar Step ups Standing Exercise Name step ups Side bilateral Resistance none Equipment Used 4 stairs Reps/Minutes 20 x each Comments cueing for hip, knee and ankle flexion Step Overs Standing Exercise Name step overs Side bilateral Resistance none Equipment Used 1/2 foam roll Reps/Minutes 20 each Comments cueing for hip, knee and ankle flexion to avoid circumduction sit to stand Side bilateral Reps/Minutes 15 x Comments no UEs Gait Training Gait Activity Gait Device Used SPC Level of Assistance SPV Surface level Distance/Duration 250 feet Treatment Focus cueing for eccentric DF control and foot alignment during heel strike Comments LUE arm swing Neuro Re-Education Treatment Balance Activities tandem Details bilateral Surface level Equipment // bars Reps/Duration 2 min each Comments CGA. pt cued to not use // bars for support, unless she lost balance Bosu Details lunge Equipment bosu Comments 15 x each standing on kiana disc Details RLE, LLE on kiana disc w balloon volley Surface yellow kiana disc Equipment balloon Reps/Duration 2 min each Comments cueing to maintain ankle position and use of L UE for hitting balloon Standing balance with LUE movements Details hand claps, grasping, reaching Reps/Duration 5 min Comments at rail Lateral stepping in //bars Details with squat Surface level Equipment // bars Comments no rails, cueing to lift LLE during side step PT-OP-S Aquatic Treatment Start: 11/17/18 15:12 Freq: Status: Active Protocol: Document 01/26/19 11:25 CLB (Rec: 01/26/19 13:54 CLB [id number]) Aquatics Treatment Pool Entry/Exit Pool Entry/Exit Method Stairs Assistance Standby Assistance Comments cues to use LUE on rail Water Walking Marching Water Level Chest Level Level of Assistance Standby Assistance Monster Walk Water Level Chest Level Walking Equipment Dots on pool floor Level of Assistance Contact Guard Assistance Minimal Assistance Comments manual assist LEs (L>R) Sideways Water Level Chest Level Comments cues for toe and body alignment Backwards Water Level Chest Level Level of Assistance Contact Guard Assistance Forwards Water Level Chest Level Level of Assistance Standby Assistance Lower Extremity Exercises Hoe downs Water Level Chest Level Equipment Small Noodle Reps/Duration 10 Comments manual assist for alignment hip cw/ccw Water Level Chest Level Reps/Duration 10 bilateral Comments cues to keep leg straight Step ups Reps/Duration forward leading with LLE up then RLE up Comments cues for mm activation squats Reps/Duration 10x Comments cues for increased weight- bearing left LE HS curls, Knee extension Details at wall with handhold Body Position Standing Water Level Waist Level Equipment Small Noodle Reps/Duration 15 bilat Comments manual assist LEs (L>R) hip flex/ext, ab/ad Details encouraging no UE support Body Position Standing Water Level Waist Level Reps/Duration 10 bilat ea Upper Extremity Exercises physical testing supervisor balls with left hand Equipment small balls Reps/Duration 6 balls x 3 Comments Pt picks up balls with left hand and places them in basket . push/pull with long barbell Reps/Duration 10x Comments cues to keep elbow close to body. ball push between UE's Equipment 8lb medicine ball Reps/Duration 15x ball bounce Equipment 8lb medicine ball Reps/Duration 30x Comments mod assist left UE Balance SLS bilat Body Position Standing Water Level Chest Level Comments fingertips on edge lifting off PT-OP-T Assessment and Plan Start: 11/05/18 18:49 Freq: Status: Active Protocol: Document 01/28/19 12:13 SA (Rec: 01/28/19 12:21 [facility] [email or web address]) Physical Therapy Assessment Assessment Summary Assessment Pt progressing well with LE strengthening and balance, using LUE more but needs cues/ reminders. Physical Therapy Plan Next Visit Focus/Plan Next Note Type Treatment Note Next Visit Plan Progress LE strength and balance, include LUE hand use with exercise.
--- NOTE | 2019-02-02 14:32 | PT.OTN ---
Current Diagnoses Selective mutism (01/28/19) Epilepsy, unspecified, intractable, without status epilepticus (01/28/19) Hemiplegia, unspecified affecting left nondominant side (01/28/19) Other reduced mobility (01/28/19) Physical Therapy Treatment Note PT-OP-A Visit Information Start: 11/05/18 18:49 Freq: Status: Active Protocol: Document 02/02/19 13:00 CLB (Rec: 02/02/19 14:32 CLB [id number]) Out-Patient Physical Therapy Visit Information Visit Information Visit Type Aquatic Treatment Note Visit Start Time 13:00 Visit Stop Time 13:45 Visit Number 23 Number of BRIDGE PAINTER Visits 3 PT-OP-B Current Condition Start: 11/05/18 18:49 Freq: Status: Active Protocol: Document 11/06/18 13:45 [facility] (Rec: 11/06/18 14:32 [facility] [id number]) Current Condition History of Current Condition Onset Date 09/18/18 Current 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 She had a R ant temporal lobe resection in 10/19. Pt could walk without AD prior to surgery and was indep with ADLs. Pt has had weakness on L side since she was an so she has worn DAFO since then. At this time the dynamic aspect is stabilized. Pt returned home from inpatient rehab 10/31. Mom helps pt bath with bath chair. Mom helps some w/L side dressing but she is able to do indep also. Pt has selective mutism. Treatment Goals Patient/Caregiver Goals Be able to ride her bike. Be able to get around a lot more. PT-OP-C Subjective Start: 11/05/18 18:49 Freq: Status: Active Protocol: Document 02/02/19 13:00 CLB (Rec: 02/02/19 14:32 CLB [id number]) OP-PT Subjective Patient Comments Patient Comments Mom states no new information to share. PT-OP-D Balance Start: 11/05/18 18:51 Freq: Status: Active Protocol: Document 11/06/18 13:45 LR (Rec: 11/06/18 18:04 [facility] [email or web address]) Balance Tests Shea Balance Test Shea Balance Test Score 20 Shea Impairment Rating 60 to 79% Impaired (Score 12- 22) PT-OP-E Functional Tests Start: 11/05/18 18:51 Freq: Status: Active Protocol: Document 11/06/18 13:45 [facility] (Rec: 11/06/18 18:04 [facility] [id number]) Functional Tests Five Times Sit to Stand Test Score 33 sec Comments use of UE Timed Up and Go (TUG) Score 39 sec Tinetti Balance and Gait Assessment Composite Score 11 Composite Score Impairment Rating 60 to <80% Impaired (Score 6- 11) PT-OP-G Mobility & Gait Start: 11/05/18 18:51 Freq: Status: Active Protocol: Document 11/06/18 13:45 [facility] (Rec: 11/06/18 14:32 [facility] [id number]) OP Mobility Evaluation Bed Mobility Supine to and from Sit Pt required assist w/LLE for bed mobility to L side of bed. OP Gait Assessment Comments Gait Comments Amb w/NBQC in R hand with dec stance time on LLE and dec step length of RLE & clearance . PT-OP-M Strength Start: 11/05/18 18:51 Freq: Status: Active Protocol: Document 11/06/18 13:45 [facility] (Rec: 11/06/18 14:32 [facility] [id number]) Hip Strength Hip Manual Muscle Testing Right Flexion (L2) 4 Good External Rotation 4 Good Internal Rotation 4 Good Left Flexion (L2) 1 Trace Extension (S1) 2- Poor- Abduction 1 Trace Knee Strength Knee Manual Muscle Testing Right Flexion (S2) 4 Good Extension (L3) 4 Good Left Flexion (S2) 1 Trace Extension (L3) 1 Trace Ankle/Foot Strength Ankle and Foot Manual Muscle Testing Right Dorsiflexion (L4) 5 Normal Plantarflexion (S1) 5 Normal Comments tested seated Left Dorsiflexion (L4) 0 Zero PT-OP-Q Treatments Start: 11/05/18 18:49 Freq: Status: Active Protocol: Document 01/28/19 12:13 SA (Rec: 01/28/19 12:21 [facility] [email or web address]) Cardio Equipment Recumbent Elliptical (Biodex) Duration (Minutes) 7 Resistance 4 Other BUE, no L hand repostioning needed Gym Equipment Shuttle Balance red clips Details red Reps/Duration 6 min Comments tandem, NBOS, weight shifts, LUE reaching and clapping hands. Therapeutic Exercises Standing Exercises kicking ball Standing Exercise Name kicking ball Side bilateral Equipment Used soccer ball, 30 x each side Reps/Minutes at single bar Step ups Standing Exercise Name step ups Side bilateral Resistance none Equipment Used 4 stairs Reps/Minutes 20 x each Comments cueing for hip, knee and ankle flexion Step Overs Standing Exercise Name step overs Side bilateral Resistance none Equipment Used 1/2 foam roll Reps/Minutes 20 each Comments cueing for hip, knee and ankle flexion to avoid circumduction sit to stand Side bilateral Reps/Minutes 15 x Comments no UEs Gait Training Gait Activity Gait Device Used SPC Level of Assistance SPV Surface level Distance/Duration 250 feet Treatment Focus cueing for eccentric DF control and foot alignment during heel strike Comments LUE arm swing Neuro Re-Education Treatment Balance Activities tandem Details bilateral Surface level Equipment // bars Reps/Duration 2 min each Comments CGA. pt cued to not use // bars for support, unless she lost balance Bosu Details lunge Equipment bosu Comments 15 x each standing on kiana disc Details RLE, LLE on kiana disc w balloon volley Surface yellow kiana disc Equipment balloon Reps/Duration 2 min each Comments cueing to maintain ankle position and use of L UE for hitting balloon Standing balance with LUE movements Details hand claps, grasping, reaching Reps/Duration 5 min Comments at rail Lateral stepping in //bars Details with squat Surface level Equipment // bars Comments no rails, cueing to lift LLE during side step PT-OP-S Aquatic Treatment Start: 11/17/18 15:12 Freq: Status: Active Protocol: Document 02/02/19 13:00 CLB (Rec: 02/02/19 14:32 CLB [id number]) Aquatics Treatment Pool Entry/Exit Pool Entry/Exit Method Stairs Assistance Standby Assistance Comments cues to use LUE on rail Water Walking Marching Water Level Chest Level Level of Assistance Standby Assistance Monster Walk Water Level Chest Level Walking Equipment Dots on pool floor Level of Assistance Contact Guard Assistance Minimal Assistance Comments manual assist LEs (L>R) Sideways Water Level Chest Level Comments cues for toe and body alignment Backwards Water Level Chest Level Level of Assistance Contact Guard Assistance Forwards Water Level Chest Level Level of Assistance Standby Assistance Lower Extremity Exercises hip cw/ccw Water Level Chest Level Reps/Duration 10 bilateral Comments cues to keep leg straight Step ups Body Position Standing Water Level Chest Level Equipment 8 Reps/Duration forward and sideways Comments NO HH/cues for mm activation squats Reps/Duration 10x Comments cues for increased weight- bearing left LE hip flex/ext, ab/ad Details encouraging no UE support Body Position Standing Water Level Waist Level Reps/Duration 10 bilat ea Upper Extremity Exercises food supervisor balls with left hand Equipment small balls Reps/Duration 6 balls x 3 Comments Pt picks up balls with left hand and places them in basket . push/pull with long barbell Reps/Duration 10x Comments cues to keep elbow close to body. ball push between UE's Equipment 8lb medicine ball Reps/Duration 15x figure 8 in coronal plane with UE paddles Details no belt Body Position Standing Water Level Chest Level Reps/Duration 10 horiz ab/ad, lateral ab/ad, flex/ext Body Position Standing Water Level Chest Level Reps/Duration 10 ea Comments manual and verbal cuing Balance SLS bilat Body Position Standing Water Level Chest Level Comments fingertips on edge lifting off PT-OP-T Assessment and Plan Start: 11/05/18 18:49 Freq: Status: Active Protocol: Document 02/02/19 13:00 CLB (Rec: 02/02/19 14:32 CLB [id number]) Physical Therapy Assessment Goals SHEA Short Term Goal (STG) Pt will improve score to 30/56 to demonstrate improved balance & safety. STG Duration 12/20/18 Vocational Coordinator Goal (LTG) Pt will improve score to >35/ 56 in order to demonstrate being safe with AD. LTG Duration 02/06/19 tinnetti Short Term Goal (STG) Pt will improve score to 19/28 in order to dec risk for falls STG Duration 12/20/18 Vocational Coordinator Goal (LTG) Pt will improve score to 24/28 in order to be at low risk for falls LTG Duration 02/06/19 gait Short Term Goal (STG) Pt will be able to amb with SPC safely STG Duration 12/20/18 Vocational Coordinator Goal (LTG) Pt will be able to amb with DAFO and limited cane usage for balance with overall good B step through and foot clearance. LTG Duration 02/06/19 Assessment Summary Assessment Pt continues to improve with balance in water no longer needed hand hold with step ups forward or sideways. Pt improving with use of LLE during hip exercises. Physical Therapy Plan Frequency and Duration Frequency of Treatment 2x/Week Duration of Treatment 3 months Plan of Care Start Date 11/06/18 Plan of Care End Date 02/06/19 Next Visit Focus/Plan Next Visit Plan Progress LE strength and balance
--- NOTE | 2019-02-05 17:36 | PT.OTN ---
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) Epilepsy, unspecified, intractable, without status epilepticus (02/05/19) Hemiplegia, unspecified affecting left nondominant side (02/05/19) Other reduced mobility (02/05/19) Physical Therapy Treatment Note PT-OP-A Visit Information Start: 11/05/18 18:49 Freq: Status: Active Protocol: Document 02/05/19 10:35 AR (Rec: 02/05/19 14:36 AR [email or web address]) Out-Patient Physical Therapy Visit Information Visit Information Visit Type Treatment Note Visit Start Time 10:35 Visit Stop Time 11:15 Visit Number 24 Number of TESTING DIRECTOR Visits 0 PT-OP-B Current Condition Start: 11/05/18 18:49 Freq: Status: Active Protocol: Document 11/06/18 13:45 [facility] (Rec: 11/06/18 14:32 [facility] [id number]) Current Condition History of Current Condition Onset Date 09/18/18 Current 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 She had a R ant temporal lobe resection in 10/19. Pt could walk without AD prior to surgery and was indep with ADLs. Pt has had weakness on L side since she was an infant so she has worn DAFO since then. At this time the dynamic aspect is stabilized. Pt returned home from inpatient rehab 10/31. Mom helps pt bath with bath chair. Mom helps some w/L side dressing but she is able to do indep also. Pt has selective mutism. Treatment Goals Patient/Caregiver Goals Be able to ride her bike. Be able to get around a lot more. PT-OP-C Subjective Start: 11/05/18 18:49 Freq: Status: Active Protocol: Document 02/05/19 10:35 AR (Rec: 02/05/19 14:36 AR [email or web address]) OP-PT Subjective Patient Comments Patient Comments Pt demonstrated correct use of her SPC. She was less responsive today but happy to participate in all exercises. PT-OP-D Balance Start: 11/05/18 18:51 Freq: Status: Active Protocol: Document 11/06/18 13:45 LR (Rec: 11/06/18 18:04 [facility] [email or web address]) Balance Tests Shea Balance Test Shea Balance Test Score 20 Shea Impairment Rating 60 to 79% Impaired (Score 12- 22) PT-OP-E Functional Tests Start: 11/05/18 18:51 Freq: Status: Active Protocol: Document 11/06/18 13:45 [facility] (Rec: 11/06/18 18:04 [facility] [email or web address]) Functional Tests Five Times Sit to Stand Test Score 33 sec Comments use of UE Timed Up and Go (TUG) Score 39 sec Tinetti Balance and Gait Assessment Composite Score 11 Composite Score Impairment Rating 60 to <80% Impaired (Score 6- 11) PT-OP-G Mobility & Gait Start: 11/05/18 18:51 Freq: Status: Active Protocol: Document 11/06/18 13:45 [facility] (Rec: 11/06/18 14:32 [facility] [id number]) OP Mobility Evaluation Bed Mobility Supine to and from Sit Pt required assist w/LLE for bed mobility to L side of bed. OP Gait Assessment Comments Gait Comments Amb w/NBQC in R hand with dec stance time on LLE and dec step length of RLE & clearance . PT-OP-M Strength Start: 11/05/18 18:51 Freq: Status: Active Protocol: Document 11/06/18 13:45 [facility] (Rec: 11/06/18 14:32 [facility] [id number]) Hip Strength Hip Manual Muscle Testing Right Flexion (L2) 4 Good External Rotation 4 Good Internal Rotation 4 Good Left Flexion (L2) 1 Trace Extension (S1) 2- Poor- Abduction 1 Trace Knee Strength Knee Manual Muscle Testing Right Flexion (S2) 4 Good Extension (L3) 4 Good Left Flexion (S2) 1 Trace Extension (L3) 1 Trace Ankle/Foot Strength Ankle and Foot Manual Muscle Testing Right Dorsiflexion (L4) 5 Normal Plantarflexion (S1) 5 Normal Comments tested seated Left Dorsiflexion (L4) 0 Zero PT-OP-Q Treatments Start: 11/05/18 18:49 Freq: Status: Active Protocol: Document 02/05/19 10:35 AR (Rec: 02/05/19 14:36 AR [email or web address]) Cardio Equipment Recumbent Elliptical (Biodex) Duration (Minutes) 7 Resistance 4 Other BUE, no L hand repostioning needed Gym Equipment Shuttle Recovery Bilateral Squats Details B squats Resistance 50# Shuttle Recovery Platform Unstable Reps/Time 2x20 reps. cueing to avoid knee valgus Therapeutic Exercises Standing Exercises Step Overs Standing Exercise Name hurdles, step to Side bilateral Resistance none Equipment Used 4 hurdles Reps/Minutes 6 rounds Comments heavy cueing for stability on LLE Neuro Re-Education Treatment Balance Activities Shuttle board Details red clips Reps/Duration 2 min Comments w balloon bridget. cueing to use both UE PT-OP-S Aquatic Treatment Start: 11/17/18 15:12 Freq: Status: Active Protocol: Document 02/02/19 13:00 [facility] (Rec: 02/02/19 14:32 [facility] [id number]) Aquatics Treatment Pool Entry/Exit Pool Entry/Exit Method Stairs Assistance Standby Assistance Comments cues to use LUE on rail Water Walking Marching Water Level Chest Level Level of Assistance Standby Assistance Monster Walk Water Level Chest Level Walking Equipment Dots on pool floor Level of Assistance Contact Guard Assistance Minimal Assistance Comments manual assist LEs (L>R) Sideways Water Level Chest Level Comments cues for toe and body alignment Backwards Water Level Chest Level Level of Assistance Contact Guard Assistance Forwards Water Level Chest Level Level of Assistance Standby Assistance Lower Extremity Exercises hip cw/ccw Water Level Chest Level Reps/Duration 10 bilateral Comments cues to keep leg straight Step ups Body Position Standing Water Level Chest Level Equipment 8 Reps/Duration forward and sideways Comments NO HH/cues for mm activation squats Reps/Duration 10x Comments cues for increased weight- bearing left LE hip flex/ext, ab/ad Details encouraging no UE support Body Position Standing Water Level Waist Level Reps/Duration 10 bilat ea Upper Extremity Exercises employment supervisor balls with left hand Equipment small balls Reps/Duration 6 balls x 3 Comments Pt picks up balls with left hand and places them in basket . push/pull with long barbell Reps/Duration 10x Comments cues to keep elbow close to body. ball push between UE's Equipment 8lb medicine ball Reps/Duration 15x figure 8 in coronal plane with UE paddles Details no belt Body Position Standing Water Level Chest Level Reps/Duration 10 horiz ab/ad, lateral ab/ad, flex/ext Body Position Standing Water Level Chest Level Reps/Duration 10 ea Comments manual and verbal cuing Balance SLS bilat Body Position Standing Water Level Chest Level Comments fingertips on edge lifting off PT-OP-T Assessment and Plan Start: 11/05/18 18:49 Freq: Status: Active Protocol: Document 02/05/19 10:35 AR (Rec: 02/05/19 14:36 AR [email or web address]) Physical Therapy Assessment Goals Gait Deviation Impairment poor foot clearance and stability on LLE Short Term Goal (STG) Pt will be able to demonstrate foot clearance over two consecutive 6 inch obstacles, 1 foot apart with alternating steps w/o use of UE or AD. STG Duration 03/22/2019 Long-Term Goal (LTG) Pt will be able to demonstrate eccentric control of RLE while weight bearing on LLE during gait. LTG Duration 05/08/2019 DGI Impairment dec balance with dynmaic activity Long-Term Goal (LTG) Pt will be able to score at least a 20/24 to demonstrate safe dynamic gait and low fall risk. LTG Duration 05/08/2019 SHEA Short Term Goal (STG) Pt will improve score to 30/56 to demonstrate improved balance & safety. STG Duration goal met. 48/56 Consumer Banker Goal (LTG) Pt will improve score to >35/ 56 in order to demonstrate being safe with AD. LTG Duration goal met. 48/56 tinnetti Short Term Goal (STG) Pt will improve score to 19/28 in order to dec risk for falls STG Duration goal met. 21/28 Long-Term Goal (LTG) Pt will improve score to 24/28 in order to be at low risk for falls LTG Duration goal met. 21/28 gait Short Term Goal (STG) Pt will be able to amb with SPC safely STG Duration goal met Long-Term Goal (LTG) Pt will be able to amb with DAFO and limited cane usage for balance with overall good B step through and foot clearance. LTG Duration progressing Assessment Summary Assessment Pt has met most of her goals and demonstrates a low fall risk and safe ambulation in the community given her Shea and Tinnetti scores. Pt is ambulating appropriately with her SPC. Pt is progressing with LE strengthening and balance and will continue to benefit from therapy to improve LLE control chris during gait. Physical Therapy Plan Frequency and Duration Frequency of Treatment 2x/Week Duration of Treatment 3 months Plan of Care Start Date 02/05/19 Plan of Care End Date 05/08/19 Therapeutic Interventions Therapeutic Interventions Aquatic Therapy Balance Training Coordination Training Gait Training Home Exercise Program Manual Therapy Neuromuscular Re-education Patient/Caregiver Education Self-Care/Home Management Sensory Integration Soft Tissue Mobilization Taping Therapeutic Activities Therapeutic Exercises Next Visit Focus/Plan Next Note Type Treatment Note Next Visit Plan progress barbara Watkins
--- NOTE | 2019-02-05 17:36 | PT.OPPOC ---
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) Epilepsy, unspecified, intractable, without status epilepticus (02/05/19) Hemiplegia, unspecified affecting left nondominant side (02/05/19) Other reduced mobility (02/05/19) Provider Visit Care Team Role Provider Type Kirstin Parmar DO Attending Provider Physician Primary Care Provider Specialty: [facility] Address: [address] [place] [address], [facility] Email: [email or web address] Plan Of Care PT-OP-T Assessment and Plan Start: 11/05/18 18:49 Freq: Status: Active Protocol: Document 02/05/19 10:35 AR (Rec: 02/05/19 14:36 AR [email or web address]) Physical Therapy Assessment Goals Gait Deviation Impairment poor foot clearance and stability on LLE Short Term Goal (STG) Pt will be able to demonstrate foot clearance over two consecutive 6 inch obstacles, 1 foot apart with alternating steps w/o use of UE or AD. STG Duration 03/22/2019 Confidential Secretary Goal (LTG) Pt will be able to demonstrate eccentric control of RLE while weight bearing on LLE during gait. LTG Duration 05/08/2019 DGI Impairment dec balance with dynmaic activity Detention Goal (LTG) Pt will be able to score at least a 20/24 to demonstrate safe dynamic gait and low fall risk. LTG Duration 05/08/2019 SHEA Short Term Goal (STG) Pt will improve score to 30/56 to demonstrate improved balance & safety. STG Duration goal met. 48/56 Detention Goal (LTG) Pt will improve score to >35/ 56 in order to demonstrate being safe with AD. LTG Duration goal met. 48/56 tinnetti Short Term Goal (STG) Pt will improve score to 19/28 in order to dec risk for falls STG Duration goal met. 21/28 Detention Goal (LTG) Pt will improve score to 24/28 in order to be at low risk for falls LTG Duration goal met. 21/28 gait Short Term Goal (STG) Pt will be able to amb with SPC safely STG Duration goal met Confidential Secretary Goal (LTG) Pt will be able to amb with DAFO and limited cane usage for balance with overall good B step through and foot clearance. LTG Duration progressing Assessment Summary Assessment Pt has met most of her goals and demonstrates a low fall risk and safe ambulation in the community given her Shea and Tinnetti scores. Pt is ambulating appropriately with her SPC. Pt is progressing with LE strengthening and balance and will continue to benefit from therapy to improve LLE control chris during gait. Physical Therapy Plan Frequency and Duration Frequency of Treatment 2x/Week Duration of Treatment 3 months Plan of Care Start Date 02/05/19 Plan of Care End Date 05/08/19 Therapeutic Interventions Therapeutic Interventions Aquatic Therapy Balance Training Coordination Training Gait Training Home Exercise Program Manual Therapy Neuromuscular Re-education Patient/Caregiver Education Self-Care/Home Management Sensory Integration Soft Tissue Mobilization Taping Therapeutic Activities Therapeutic Exercises Next Visit Focus/Plan Next Note Type Treatment Note Next Visit Plan progress LE stengthening, gym exercises Plan of Care Dates Plan of Care Start Date 02/05/19 Plan of Care End Date 05/08/19 Please Sign and Return: I have reviewed this Plan of Care and certify that the skilled therapy services above are required to meet the patient?s needs. Physician Signature Date Printed Name and Credentials Clinical Instructor Signature Printed Name and Credentials
--- NOTE | 2019-02-10 17:28 | PT.OTN ---
Current Diagnoses Selective mutism (02/10/19) Epilepsy, unspecified, intractable, without status epilepticus (02/10/19) Hemiplegia, unspecified affecting left nondominant side (02/10/19) Other reduced mobility (02/10/19) Physical Therapy Treatment Note PT-OP-A Visit Information Start: 11/05/18 18:49 Freq: Status: Active Protocol: Document 02/10/19 13:00 AR (Rec: 02/10/19 15:13 AR [email or web address]) Out-Patient Physical Therapy Visit Information Visit Information Visit Type Treatment Note Visit Start Time 13:00 Visit Stop Time 13:43 Total Visit Minutes 43 Visit Number 25 Number of HAIRSPRING INSPECTOR Visits 0 PT-OP-B Current Condition Start: 11/05/18 18:49 Freq: Status: Active Protocol: Document 11/06/18 13:45 [facility] (Rec: 11/06/18 14:32 [facility] [id number]) Current Condition History of Current Condition Onset Date 09/18/18 Current 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 She had a R ant temporal lobe resection in 10/19. Pt could walk without AD prior to surgery and was indep with ADLs. Pt has had weakness on L side since she was an so she has worn DAFO since then. At this time the dynamic aspect is stabilized. Pt returned home from inpatient rehab 10/31. Mom helps pt bath with bath chair. Mom helps some w/L side dressing but she is able to do indep also. Pt has selective mutism. Treatment Goals Patient/Caregiver Goals Be able to ride her bike. Be able to get around a lot more. PT-OP-C Subjective Start: 11/05/18 18:49 Freq: Status: Active Protocol: Document 02/05/19 10:35 AR (Rec: 02/05/19 14:36 AR [email or web address]) OP-PT Subjective Patient Comments Patient Comments Pt demonstrated correct use of her SPC. She was less responsive today but happy to participate in all exercises. PT-OP-D Balance Start: 11/05/18 18:51 Freq: Status: Active Protocol: Document 11/06/18 13:45 [facility] (Rec: 11/06/18 18:04 [facility] [email or web address]) Balance Tests Shea Balance Test Shea Balance Test Score 20 Shea Impairment Rating 60 to 79% Impaired (Score 12- 22) PT-OP-E Functional Tests Start: 11/05/18 18:51 Freq: Status: Active Protocol: Document 11/06/18 13:45 [facility] (Rec: 11/06/18 18:04 [facility] [id number]) Functional Tests Five Times Sit to Stand Test Score 33 sec Comments use of UE Timed Up and Go (TUG) Score 39 sec Tinetti Balance and Gait Assessment Composite Score 11 Composite Score Impairment Rating 60 to <80% Impaired (Score 6- 11) PT-OP-G Mobility & Gait Start: 11/05/18 18:51 Freq: Status: Active Protocol: Document 11/06/18 13:45 [facility] (Rec: 11/06/18 14:32 [facility] [id number]) OP Mobility Evaluation Bed Mobility Supine to and from Sit Pt required assist w/LLE for bed mobility to L side of bed. OP Gait Assessment Comments Gait Comments Amb w/NBQC in R hand with dec stance time on LLE and dec step length of RLE & clearance . PT-OP-M Strength Start: 11/05/18 18:51 Freq: Status: Active Protocol: Document 11/06/18 13:45 [facility] (Rec: 11/06/18 14:32 [facility] [id number]) Hip Strength Hip Manual Muscle Testing Right Flexion (L2) 4 Good External Rotation 4 Good Internal Rotation 4 Good Left Flexion (L2) 1 Trace Extension (S1) 2- Poor- Abduction 1 Trace Knee Strength Knee Manual Muscle Testing Right Flexion (S2) 4 Good Extension (L3) 4 Good Left Flexion (S2) 1 Trace Extension (L3) 1 Trace Ankle/Foot Strength Ankle and Foot Manual Muscle Testing Right Dorsiflexion (L4) 5 Normal Plantarflexion (S1) 5 Normal Comments tested seated Left Dorsiflexion (L4) 0 Zero PT-OP-Q Treatments Start: 11/05/18 18:49 Freq: Status: Active Protocol: Document 02/10/19 13:00 AR (Rec: 02/10/19 15:13 AR [email or web address]) Cardio Equipment Recumbent Elliptical (Biodex) Duration (Minutes) 6 Resistance 5 Other BUE, pt placed hand indep Gym Equipment Shuttle Recovery Bilateral Squats Details B squats Resistance 50# Shuttle Recovery Platform Unstable Reps/Time 2x20 reps, cueing to avoid knee valgus Therapeutic Exercises Standing Exercises kicking ball Standing Exercise Name kicking ball Side bilateral Equipment Used soccer ball, 30 x each side Reps/Minutes no hand support Step Overs Standing Exercise Name hurdles, step to Side bilateral Resistance none Equipment Used 6 hurdles Reps/Minutes 6 rounds Comments heavy cueing for stability on LLE Therapeutic Activity Therapeutic Activity STS Name sit to stand Reps/Minutes 5 reps Comments w/o UE use Stairs Name stairs in lobby Reps/Minutes 20 steps, asc/desc x2 Comments cueing for eccentric control. pt able to ascend/descend w/o railing Neuro Re-Education Treatment Balance Activities Shuttle board Details red clips Reps/Duration 3 min Comments w tim gill. cueing to use both UE. pt did well opening L hand PT-OP-S Aquatic Treatment Start: 11/17/18 15:12 Freq: Status: Active Protocol: Document 02/02/19 13:00 [facility] (Rec: 02/02/19 14:32 [facility] [id number]) Aquatics Treatment Pool Entry/Exit Pool Entry/Exit Method Stairs Assistance Standby Assistance Comments cues to use LUE on rail Water Walking Marching Water Level Chest Level Level of Assistance Standby Assistance Monster Walk Water Level Chest Level Walking Equipment Dots on pool floor Level of Assistance Contact Guard Assistance Minimal Assistance Comments manual assist LEs (L>R) Sideways Water Level Chest Level Comments cues for toe and body alignment Backwards Water Level Chest Level Level of Assistance Contact Guard Assistance Forwards Water Level Chest Level Level of Assistance Standby Assistance Lower Extremity Exercises hip cw/ccw Water Level Chest Level Reps/Duration 10 bilateral Comments cues to keep leg straight Step ups Body Position Standing Water Level Chest Level Equipment 8 Reps/Duration forward and sideways Comments NO HH/cues for mm activation squats Reps/Duration 10x Comments cues for increased weight- bearing left LE hip flex/ext, ab/ad Details encouraging no UE support Body Position Standing Water Level Waist Level Reps/Duration 10 bilat ea Upper Extremity Exercises labor crew supervisor balls with left hand Equipment small balls Reps/Duration 6 balls x 3 Comments Pt picks up balls with left hand and places them in basket . push/pull with long barbell Reps/Duration 10x Comments cues to keep elbow close to body. ball push between UE's Equipment 8lb medicine ball Reps/Duration 15x figure 8 in coronal plane with UE paddles Details no belt Body Position Standing Water Level Chest Level Reps/Duration 10 horiz ab/ad, lateral ab/ad, flex/ext Body Position Standing Water Level Chest Level Reps/Duration 10 ea Comments manual and verbal cuing Balance SLS bilat Body Position Standing Water Level Chest Level Comments fingertips on edge lifting off PT-OP-T Assessment and Plan Start: 11/05/18 18:49 Freq: Status: Active Protocol: Document 02/10/19 13:00 AR (Rec: 02/10/19 15:13 AR [email or web address]) Physical Therapy Assessment Goals Gait Deviation Impairment poor foot clearance and stability on LLE Short Term Goal (STG) Pt will be able to demonstrate foot clearance over two consecutive 6 inch obstacles, 1 foot apart with alternating steps w/o use of UE or AD. STG Duration 03/22/2019 Boat And Plant Utility Supervisor Goal (LTG) Pt will be able to demonstrate eccentric control of RLE while weight bearing on LLE during gait. LTG Duration 05/08/2019 DGI Impairment dec balance with dynmaic activity Boat And Plant Utility Supervisor Goal (LTG) Pt will be able to score at least a 20/24 to demonstrate safe dynamic gait and low fall risk. LTG Duration 05/08/2019 SHEA Short Term Goal (STG) Pt will improve score to 30/56 to demonstrate improved balance & safety. STG Duration goal met. 48/56 Boat And Plant Utility Supervisor Goal (LTG) Pt will improve score to >35/ 56 in order to demonstrate being safe with AD. LTG Duration goal met. 48/56 tinnetti Short Term Goal (STG) Pt will improve score to 19/28 in order to dec risk for falls STG Duration goal met. 21/28 Boat And Plant Utility Supervisor Goal (LTG) Pt will improve score to 24/28 in order to be at low risk for falls LTG Duration goal met. 21/ gait Short Term Goal (STG) Pt will be able to amb with SPC safely STG Duration goal met Boat And Plant Utility Supervisor Goal (LTG) Pt will be able to amb with DAFO and limited cane usage for balance with overall good B step through and foot clearance. LTG Duration progressing Assessment Summary Assessment Pt was able to demonstrate stair mobility w/o use of rails. Control of RLE movements during gait and stairs is still limited d/t dec stability in weight bearing on LLE. Pt was able to maintain more eccentric control with cueing, but fatigued quickly. Pt tolerated strengthening exercises well today. Pt was unable to maintain L foot in stagger stance on shuttle board w/o external rotation of LE. Physical Therapy Plan Frequency and Duration Frequency of Treatment 2x/Week Duration of Treatment 3 months Plan of Care Start Date 02/05/19 Plan of Care End Date 05/08/19 Next Visit Focus/Plan Next Note Type Treatment Note Next Visit Plan progress stairs, gait training
--- NOTE | 2019-03-10 17:31 | PT.OTN ---
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) Epilepsy, unspecified, intractable, without status epilepticus (03/10/19) Hemiplegia, unspecified affecting left nondominant side (03/10/19) Other reduced mobility (03/10/19) Physical Therapy Treatment Note PT-OP-A Visit Information Start: 11/05/18 18:49 Freq: Status: Active Protocol: Document 03/10/19 14:30 AR (Rec: 03/10/19 16:29 AR [id number]) Out-Patient Physical Therapy Visit Information Visit Information Visit Type Treatment Note Visit Start Time 14:35 Visit Stop Time 15:15 Total Visit Minutes 40 Visit Number 27 Number of HOUSE SERVANT Visits 0 PT-OP-B Current Condition Start: 11/05/18 18:49 Freq: Status: Active Protocol: Document 11/06/18 13:45 [facility] (Rec: 11/06/18 14:32 [facility] [id number]) Current Condition History of Current Condition Onset Date 09/18/18 Current 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 She had a R ant temporal lobe resection in 10/19. Pt could walk without AD prior to surgery and was indep with ADLs. Pt has had weakness on L side since she was an so she has worn DAFO since then. At this time the dynamic aspect is stabilized. Pt returned home from inpatient rehab 10/31. Mom helps pt bath with bath chair. Mom helps some w/L side dressing but she is able to do indep also. Pt has selective mutism. Treatment Goals Patient/Caregiver Goals Be able to ride her bike. Be able to get around a lot more. PT-OP-C Subjective Start: 11/05/18 18:49 Freq: Status: Active Protocol: Document 03/10/19 14:30 AR (Rec: 03/10/19 16:29 AR [id number]) OP-PT Subjective Patient Comments Patient Comments Mona was happy to participate today. PT-OP-D Balance Start: 11/05/18 18:51 Freq: Status: Active Protocol: Document 11/06/18 13:45 [facility] (Rec: 11/06/18 18:04 [facility] [email or web address]) Balance Tests Shea Balance Test Shea Balance Test Score 20 Shea Impairment Rating 60 to 79% Impaired (Score 12- 22) PT-OP-E Functional Tests Start: 11/05/18 18:51 Freq: Status: Active Protocol: Document 11/06/18 13:45 [facility] (Rec: 11/06/18 18:04 [facility] [email or web address]) Functional Tests Five Times Sit to Stand Test Score 33 sec Comments use of UE Timed Up and Go (TUG) Score 39 sec Tinetti Balance and Gait Assessment Composite Score 11 Composite Score Impairment Rating 60 to <80% Impaired (Score 6- 11) PT-OP-G Mobility & Gait Start: 11/05/18 18:51 Freq: Status: Active Protocol: Document 11/06/18 13:45 [facility] (Rec: 11/06/18 14:32 [facility] [id number]) OP Mobility Evaluation Bed Mobility Supine to and from Sit Pt required assist w/LLE for bed mobility to L side of bed. OP Gait Assessment Comments Gait Comments Amb w/NBQC in R hand with dec stance time on LLE and dec step length of RLE & clearance . PT-OP-M Strength Start: 11/05/18 18:51 Freq: Status: Active Protocol: Document 11/06/18 13:45 [facility] (Rec: 11/06/18 14:32 [facility] [id number]) Hip Strength Hip Manual Muscle Testing Right Flexion (L2) 4 Good External Rotation 4 Good Internal Rotation 4 Good Left Flexion (L2) 1 Trace Extension (S1) 2- Poor- Abduction 1 Trace Knee Strength Knee Manual Muscle Testing Right Flexion (S2) 4 Good Extension (L3) 4 Good Left Flexion (S2) 1 Trace Extension (L3) 1 Trace Ankle/Foot Strength Ankle and Foot Manual Muscle Testing Right Dorsiflexion (L4) 5 Normal Plantarflexion (S1) 5 Normal Comments tested seated Left Dorsiflexion (L4) 0 Zero PT-OP-Q Treatments Start: 11/05/18 18:49 Freq: Status: Active Protocol: Document 03/10/19 14:30 AR (Rec: 03/10/19 16:29 AR [id number]) Cardio Equipment Recumbent Stepper (Sci-Fit) Duration (Minutes) 5 Resistance 5 Seat Position 7 Other BUE, pt placed hand indep Therapeutic Exercises Standing Exercises kicking ball off cones Standing Exercise Name for stability on LLE kicking w RLE and inc DF of L ankle Side bilateral Equipment Used 3 stacking cones, 3 playground balls Reps/Minutes 4 reps, 12 kicks kicking ball Standing Exercise Name kicking ball Side bilateral Equipment Used playground ball, 30 x each side Reps/Minutes no hand support Therapeutic Activity Therapeutic Activity Stairs Name 4 steps Reps/Minutes ascend/descend 6 times Comments dec stability on LLE. cued to step up w LLE first Gait Training Gait Activity Gait Description gait training w SPC Device Used SPC Level of Assistance CGA Surface level Distance/Duration [id number] Treatment Focus eccentric control of LLE, stability on LLE, straight path w/o cross over Comments used line in hallways as visual cue for pt not cross over. verbal cues to keep toes pointing straight forward and to keep R foot quiet Neuro Re-Education Treatment Balance Activities cox foam Details WBOS w balloon volley Surface cox foam pad Reps/Duration 2 min Comments not challenging for pt Shuttle board Details red clips Reps/Duration 3 min Comments cueing to use both UE. pt did well opening L hand. pt challenged today, was not able to maint balance for more than 10 seconds tandem Details bilateral Surface level Equipment // bars Reps/Duration 4 min each Comments with balloon bridget PT-OP-S Aquatic Treatment Start: 11/17/18 15:12 Freq: Status: Active Protocol: Document 02/02/19 13:00 [facility] (Rec: 02/02/19 14:32 [facility] [id number]) Aquatics Treatment Pool Entry/Exit Pool Entry/Exit Method Stairs Assistance Standby Assistance Comments cues to use LUE on rail Water Walking Marching Water Level Chest Level Level of Assistance Standby Assistance Monster Walk Water Level Chest Level Walking Equipment Dots on pool floor Level of Assistance Contact Guard Assistance, Minimal Assistance Comments manual assist LEs (L>R) Sideways Water Level Chest Level Comments cues for toe and body alignment Backwards Water Level Chest Level Level of Assistance Contact Guard Assistance Forwards Water Level Chest Level Level of Assistance Standby Assistance Lower Extremity Exercises hip cw/ccw Water Level Chest Level Reps/Duration 10 bilateral Comments cues to keep leg straight Step ups Body Position Standing Water Level Chest Level Equipment 8 Reps/Duration forward and sideways Comments NO HH/cues for mm activation squats Reps/Duration 10x Comments cues for increased weight- bearing left LE hip flex/ext, ab/ad Details encouraging no UE support Body Position Standing Water Level Waist Level Reps/Duration 10 bilat ea Upper Extremity Exercises home health occupational therapist balls with left hand Equipment small balls Reps/Duration 6 balls x 3 Comments Pt picks up balls with left hand and places them in basket . push/pull with long barbell Reps/Duration 10x Comments cues to keep elbow close to body. ball push between UE's Equipment 8lb medicine ball Reps/Duration 15x figure 8 in coronal plane with UE paddles Details no belt Body Position Standing Water Level Chest Level Reps/Duration 10 horiz ab/ad, lateral ab/ad, flex/ext Body Position Standing Water Level Chest Level Reps/Duration 10 ea Comments manual and verbal cuing Balance SLS bilat Body Position Standing Water Level Chest Level Comments fingertips on edge lifting off PT-OP-T Assessment and Plan Start: 11/05/18 18:49 Freq: Status: Active Protocol: Document 03/10/19 14:30 AR (Rec: 03/10/19 16:29 AR [id number]) Physical Therapy Assessment Goals Gait Deviation Impairment poor foot clearance and stability on LLE Short Term Goal (STG) Pt will be able to demonstrate foot clearance over two consecutive 6 inch obstacles, 1 foot apart with alternating steps w/o use of UE or AD. STG Duration 03/22/2019 Retirement Goal (LTG) Pt will be able to demonstrate eccentric control of RLE while weight bearing on LLE during gait. LTG Duration 05/08/2019 DGI Impairment dec balance with dynmaic activity Hvac Designer Goal (LTG) Pt will be able to score at least a 20/24 to demonstrate safe dynamic gait and low fall risk. LTG Duration 05/08/2019 SHEA Short Term Goal (STG) Pt will improve score to 30/56 to demonstrate improved balance & safety. STG Duration goal met. 48/56 Retirement Goal (LTG) Pt will improve score to >35/ 56 in order to demonstrate being safe with AD. LTG Duration goal met. 48/56 tinnetti Short Term Goal (STG) Pt will improve score to 19/28 in order to dec risk for falls STG Duration goal met. 21/ Hvac Designer Goal (LTG) Pt will improve score to 24/28 in order to be at low risk for falls LTG Duration goal met. gait Short Term Goal (STG) Pt will be able to amb with SPC safely STG Duration goal met Hvac Designer Goal (LTG) Pt will be able to amb with DAFO and limited cane usage for balance with overall good B step through and foot clearance. LTG Duration progressing Assessment Summary Assessment Pt continues to have dec stability on LLE and decreased DF which contribute to gait deviations. Pt had difficulty avoiding crossing over, even with heavy cueing. Pt was able to ascend stairs step over step with cueing. Physical Therapy Plan Frequency and Duration Frequency of Treatment 2x/Week Duration of Treatment 3 months Plan of Care Start Date 02/05/19 Plan of Care End Date 05/08/19 Next Visit Focus/Plan Next Note Type Treatment Note Next Visit Plan stairs in lobby, stagger stance on shuttle board, step ups w/tap onto step
--- NOTE | 2019-03-17 18:15 | PT.OTN ---
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) Epilepsy, unspecified, intractable, without status epilepticus (03/17/19) Hemiplegia, unspecified affecting left nondominant side (03/17/19) Other reduced mobility (03/17/19) Physical Therapy Treatment Note PT-OP-A Visit Information Start: 11/05/18 18:49 Freq: Status: Active Protocol: Document 03/17/19 17:55 AR (Rec: 03/17/19 18:09 AR [id number]) Out-Patient Physical Therapy Visit Information Visit Information Visit Type Treatment Note Visit Start Time 14:30 Visit Stop Time 15:10 Total Visit Minutes 40 Visit Number 28 Number of SNACK BAR ATTENDANT Visits 0 PT-OP-B Current Condition Start: 11/05/18 18:49 Freq: Status: Active Protocol: Document 11/06/18 13:45 [facility] (Rec: 11/06/18 14:32 [facility] [id number]) Current Condition History of Current Condition Onset Date 09/18/18 Current 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 She had a R ant temporal lobe resection in 10/19. Pt could walk without AD prior to surgery and was indep with ADLs. Pt has had weakness on L side since she was an so she has worn DAFO since then. At this time the dynamic aspect is stabilized. Pt returned home from inpatient rehab 10/31. Mom helps pt bath with bath chair. Mom helps some w/L side dressing but she is able to do indep also. Pt has selective mutism. Treatment Goals Patient/Caregiver Goals Be able to ride her bike. Be able to get around a lot more. PT-OP-C Subjective Start: 11/05/18 18:49 Freq: Status: Active Protocol: Document 03/17/19 17:55 AR (Rec: 03/17/19 18:09 AR [id number]) OP-PT Subjective Patient Comments Patient Comments Mona's grandmother wondered if Mona should be walking rather than using her power wheelchair when she goes on longer walks. She also mentioned that Mona has a brace for her foot but she has not been wearing it because it has been irritating her skin. PT-OP-D Balance Start: 11/05/18 18:51 Freq: Status: Active Protocol: Document 11/06/18 13:45 [facility] (Rec: 11/06/18 18:04 [facility] [id number]) Balance Tests Shea Balance Test Shea Balance Test Score 20 Shea Impairment Rating 60 to 79% Impaired (Score 12- 22) PT-OP-E Functional Tests Start: 11/05/18 18:51 Freq: Status: Active Protocol: Document 11/06/18 13:45 [facility] (Rec: 11/06/18 18:04 [facility] [id number]) Functional Tests Five Times Sit to Stand Test Score 33 sec Comments use of UE Timed Up and Go (TUG) Score 39 sec Tinetti Balance and Gait Assessment Composite Score 11 Composite Score Impairment Rating 60 to <80% Impaired (Score 6- 11) PT-OP-G Mobility & Gait Start: 11/05/18 18:51 Freq: Status: Active Protocol: Document 11/06/18 13:45 [facility] (Rec: 11/06/18 14:32 [facility] [id number]) OP Mobility Evaluation Bed Mobility Supine to and from Sit Pt required assist w/LLE for bed mobility to L side of bed. OP Gait Assessment Comments Gait Comments Amb w/NBQC in R hand with dec stance time on LLE and dec step length of RLE & clearance . PT-OP-M Strength Start: 11/05/18 18:51 Freq: Status: Active Protocol: Document 11/06/18 13:45 [facility] (Rec: 11/06/18 14:32 [facility] [id number]) Hip Strength Hip Manual Muscle Testing Right Flexion (L2) 4 Good External Rotation 4 Good Internal Rotation 4 Good Left Flexion (L2) 1 Trace Extension (S1) 2- Poor- Abduction 1 Trace Knee Strength Knee Manual Muscle Testing Right Flexion (S2) 4 Good Extension (L3) 4 Good Left Flexion (S2) 1 Trace Extension (L3) 1 Trace Ankle/Foot Strength Ankle and Foot Manual Muscle Testing Right Dorsiflexion (L4) 5 Normal Plantarflexion (S1) 5 Normal Comments tested seated Left Dorsiflexion (L4) 0 Zero PT-OP-Q Treatments Start: 11/05/18 18:49 Freq: Status: Active Protocol: Document 03/17/19 17:55 AR (Rec: 03/17/19 18:09 AR [id number]) Cardio Equipment Recumbent Stepper (Sci-Fit) Duration (Minutes) 6 Resistance 4 Seat Position 7 Other BUE, pt placed hand indep Gym Equipment Shuttle Recovery Bilateral Squats Details B squats Resistance 75# Shuttle Recovery Platform Unstable Reps/Time 2x20 cued to WB equally into B LE Therapeutic Exercises Standing Exercises marches Standing Exercise Name hip, knee and ankle flexion Side left Resistance none Reps/Minutes 10 reps Comments ~40 deg hip flex ROM kicking ball Standing Exercise Name kicking ball Side bilateral Equipment Used playground ball, 30 x each side Reps/Minutes no hand support Step ups Standing Exercise Name to tap 4 step Side bilateral Reps/Minutes 20 ea Therapeutic Activity Therapeutic Activity STS Name STS Reps/Minutes 20 reps Comments pt cued to avoid knee valgus, control descent Stairs Name stairs in lobby Reps/Minutes x2 Comments pt was able to ascend and descend step over step with no railings with CGA after heavy cueing Neuro Re-Education Treatment Balance Activities cox foam Details NBOS eyes closed Surface cox foam pad Reps/Duration 3 min Shuttle board Details stagger stance w balloon volley Surface yellow clips Reps/Duration 5 min Comments cueing to use both UE. pt did well opening L hand. pt challenged today, was not able to maint balance for more than 10 seconds tandem Details bilateral, RLE on green therapad Equipment // bars Reps/Duration 2 min each Comments with balloon volley PT-OP-S Aquatic Treatment Start: 11/17/18 15:12 Freq: Status: Active Protocol: Document 02/02/19 13:00 CLB (Rec: 02/02/19 14:32 [facility] [id number]) Aquatics Treatment Pool Entry/Exit Pool Entry/Exit Method Stairs Assistance Standby Assistance Comments cues to use LUE on rail Water Walking Marching Water Level Chest Level Level of Assistance Standby Assistance Monster Walk Water Level Chest Level Walking Equipment Dots on pool floor Level of Assistance Contact Guard Assistance, Minimal Assistance Comments manual assist LEs (L>R) Sideways Water Level Chest Level Comments cues for toe and body alignment Backwards Water Level Chest Level Level of Assistance Contact Guard Assistance Forwards Water Level Chest Level Level of Assistance Standby Assistance Lower Extremity Exercises hip cw/ccw Water Level Chest Level Reps/Duration 10 bilateral Comments cues to keep leg straight Step ups Body Position Standing Water Level Chest Level Equipment 8 Reps/Duration forward and sideways Comments NO HH/cues for mm activation squats Reps/Duration 10x Comments cues for increased weight- bearing left LE hip flex/ext, ab/ad Details encouraging no UE support Body Position Standing Water Level Waist Level Reps/Duration 10 bilat ea Upper Extremity Exercises warehouse shipping supervisor balls with left hand Equipment small balls Reps/Duration 6 balls x 3 Comments Pt picks up balls with left hand and places them in basket . push/pull with long barbell Reps/Duration 10x Comments cues to keep elbow close to body. ball push between UE's Equipment 8lb medicine ball Reps/Duration 15x figure 8 in coronal plane with UE paddles Details no belt Body Position Standing Water Level Chest Level Reps/Duration 10 horiz ab/ad, lateral ab/ad, flex/ext Body Position Standing Water Level Chest Level Reps/Duration 10 ea Comments manual and verbal cuing Balance SLS bilat Body Position Standing Water Level Chest Level Comments fingertips on edge lifting off PT-OP-T Assessment and Plan Start: 11/05/18 18:49 Freq: Status: Active Protocol: Document 03/17/19 17:55 AR (Rec: 03/17/19 18:09 AR [id number]) Physical Therapy Assessment Goals Gait Deviation Impairment poor foot clearance and stability on LLE Short Term Goal (STG) Pt will be able to demonstrate foot clearance over two consecutive 6 inch obstacles, 1 foot apart with alternating steps w/o use of UE or AD. STG Duration 03/22/2019 Halfway Goal (LTG) Pt will be able to demonstrate eccentric control of RLE while weight bearing on LLE during gait. LTG Duration 05/08/2019 DGI Impairment dec balance with dynmaic activity Tool Trouble Shooter Goal (LTG) Pt will be able to score at least a 20/24 to demonstrate safe dynamic gait and low fall risk. LTG Duration 05/08/2019 SHEA Short Term Goal (STG) Pt will improve score to 30/56 to demonstrate improved balance & safety. STG Duration goal met. 48/56 Halfway Goal (LTG) Pt will improve score to >35/ 56 in order to demonstrate being safe with AD. LTG Duration goal met. 48/56 tinnetti Short Term Goal (STG) Pt will improve score to 19/28 in order to dec risk for falls STG Duration goal met. Halfway Goal (LTG) Pt will improve score to in order to be at low risk for falls LTG Duration goal met. gait Short Term Goal (STG) Pt will be able to amb with SPC safely STG Duration goal met Tool Trouble Shooter Goal (LTG) Pt will be able to amb with DAFO and limited cane usage for balance with overall good B step through and foot clearance. LTG Duration progressing Assessment Summary Assessment Mona has shown improvement with functional tasks like stairs and STS. She was able to ascend and descend 2 flights of stairs without railing in [id number] pattern with cueing and CGA. She has limited stability on LLE, which may be contributing to hesitancy with stairs and stepping over objects. Physical Therapy Plan Frequency and Duration Frequency of Treatment 2x/Week Duration of Treatment 3 months Plan of Care Start Date 02/05/19 Plan of Care End Date 05/08/19 Next Visit Focus/Plan Next Note Type Treatment Note Next Visit Plan SLS on LLE if pt able. standing hip strengthening ( marches), gait training. cont step up with tap onto step
--- NOTE | 2019-03-20 15:41 | PT.OTN ---
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) Epilepsy, unspecified, intractable, without status epilepticus (03/20/19) Hemiplegia, unspecified affecting left nondominant side (03/20/19) Other reduced mobility (03/20/19) Physical Therapy Treatment Note PT-OP-A Visit Information Start: 11/05/18 18:49 Freq: Status: Active Protocol: Document 03/20/19 11:00 LJ (Rec: 03/20/19 15:41 LJ [id number]) Out-Patient Physical Therapy Visit Information Visit Information Visit Type Aquatic Treatment Note Visit Start Time 11:00 Visit Stop Time 11:45 Total Visit Minutes 45 Visit Number 29 Number of FLOOR TECHNICIAN Visits 1 PT-OP-B Current Condition Start: 11/05/18 18:49 Freq: Status: Active Protocol: Document 11/06/18 13:45 [facility] (Rec: 11/06/18 14:32 [facility] [id number]) Current Condition History of Current Condition Onset Date 09/18/18 Current 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 She had a R ant temporal lobe resection in 10/19. Pt could walk without AD prior to surgery and was indep with ADLs. Pt has had weakness on L side since she was an so she has worn DAFO since then. At this time the dynamic aspect is stabilized. Pt returned home from inpatient rehab 10/31. Mom helps pt bath with bath chair. Mom helps some w/L side dressing but she is able to do indep also. Pt has selective mutism. Treatment Goals Patient/Caregiver Goals Be able to ride her bike. Be able to get around a lot more. PT-OP-C Subjective Start: 11/05/18 18:49 Freq: Status: Active Protocol: Document 03/20/19 11:00 LJ (Rec: 03/20/19 15:41 LJ [id number]) OP-PT Subjective Patient Comments Patient Comments Mona was dropped off by her Grandmother. Neither had anything to report. PT-OP-D Balance Start: 11/05/18 18:51 Freq: Status: Active Protocol: Document 11/06/18 13:45 [facility] (Rec: 11/06/18 18:04 [facility] [email or web address]) Balance Tests Shea Balance Test Shea Balance Test Score 20 Shea Impairment Rating 60 to 79% Impaired (Score 12- 22) PT-OP-E Functional Tests Start: 11/05/18 18:51 Freq: Status: Active Protocol: Document 11/06/18 13:45 [facility] (Rec: 11/06/18 18:04 [facility] [email or web address]) Functional Tests Five Times Sit to Stand Test Score 33 sec Comments use of UE Timed Up and Go (TUG) Score 39 sec Tinetti Balance and Gait Assessment Composite Score 11 Composite Score Impairment Rating 60 to <80% Impaired (Score 6- 11) PT-OP-G Mobility & Gait Start: 11/05/18 18:51 Freq: Status: Active Protocol: Document 11/06/18 13:45 [facility] (Rec: 11/06/18 14:32 [facility] [id number]) OP Mobility Evaluation Bed Mobility Supine to and from Sit Pt required assist w/LLE for bed mobility to L side of bed. OP Gait Assessment Comments Gait Comments Amb w/NBQC in R hand with dec stance time on LLE and dec step length of RLE & clearance . PT-OP-M Strength Start: 11/05/18 18:51 Freq: Status: Active Protocol: Document 11/06/18 13:45 [facility] (Rec: 11/06/18 14:32 [facility] [id number]) Hip Strength Hip Manual Muscle Testing Right Flexion (L2) 4 Good External Rotation 4 Good Internal Rotation 4 Good Left Flexion (L2) 1 Trace Extension (S1) 2- Poor- Abduction 1 Trace Knee Strength Knee Manual Muscle Testing Right Flexion (S2) 4 Good Extension (L3) 4 Good Left Flexion (S2) 1 Trace Extension (L3) 1 Trace Ankle/Foot Strength Ankle and Foot Manual Muscle Testing Right Dorsiflexion (L4) 5 Normal Plantarflexion (S1) 5 Normal Comments tested seated Left Dorsiflexion (L4) 0 Zero PT-OP-Q Treatments Start: 11/05/18 18:49 Freq: Status: Active Protocol: Document 03/17/19 17:55 AR (Rec: 03/17/19 18:09 [facility] [id number]) Cardio Equipment Recumbent Stepper (Sci-Fit) Duration (Minutes) 6 Resistance 4 Seat Position 7 Other BUE, pt placed hand indep Gym Equipment Shuttle Recovery Bilateral Squats Details B squats Resistance 75# Shuttle Recovery Platform Unstable Reps/Time 2x20 cued to WB equally into B LE Therapeutic Exercises Standing Exercises marches Standing Exercise Name hip, knee and ankle flexion Side left Resistance none Reps/Minutes 10 reps Comments ~40 deg hip flex ROM kicking ball Standing Exercise Name kicking ball Side bilateral Equipment Used playground ball, 30 x each side Reps/Minutes no hand support Step ups Standing Exercise Name to tap 4 step Side bilateral Reps/Minutes 20 ea Therapeutic Activity Therapeutic Activity STS Name STS Reps/Minutes 20 reps Comments pt cued to avoid knee valgus, control descent Stairs Name stairs in lobby Reps/Minutes x2 Comments pt was able to ascend and descend step over step with no railings with CGA after heavy cueing Neuro Re-Education Treatment Balance Activities cox foam Details NBOS eyes closed Surface cox foam pad Reps/Duration 3 min Shuttle board Details stagger stance w balloon volley Surface yellow clips Reps/Duration 5 min Comments cueing to use both UE. pt did well opening L hand. pt challenged today, was not able to maint balance for more than 10 seconds tandem Details bilateral, RLE on green therapad Equipment // bars Reps/Duration 2 min each Comments with balloon volley PT-OP-S Aquatic Treatment Start: 11/17/18 15:12 Freq: Status: Active Protocol: Document 03/20/19 11:00 [facility] (Rec: 03/20/19 15:41 [facility] [email or web address]) Aquatics Treatment Pool Entry/Exit Pool Entry/Exit Method Stairs Assistance Standby Assistance Comments cues to use LUE on rail Water Walking [place] March Water Level Chest Level Comments opposite hand to delgado Marching Water Level Chest Level Level of Assistance Standby Assistance Comments sweeping arms side to side Monster Walk Water Level Chest Level Level of Assistance Standby Assistance Comments pt cued to use UEs for support Sideways Water Level Chest Level Comments cues for toe and body alignment, giant steps Forwards Water Level Chest Level Walking Equipment UE paddles Level of Assistance Standby Assistance Comments cueing for hand position Lower Extremity Exercises opposite hand to heel in back of buttocks Body Position Standing Water Level Waist Level Reps/Duration 10 each side Comments leaning against wall Hoe downs Water Level Chest Level Equipment Small Noodle Reps/Duration 10 Comments manual assist for alignment Step ups Body Position Standing Water Level Chest Level Equipment 8 Reps/Duration forward and sideways; step over boxes also both directions hip flex/ext, ab/ad Details encouraging no UE support Body Position Standing Water Level Waist Level Reps/Duration 10 bilat ea Comments cross over arm patternwith flexion Balance sitting on saddle Body Position Sitting Water Level Neck Level Equipment sm BBs Reps/Duration 6 min Comments manual assist and cueing SLS bilat Body Position Standing Water Level Chest Level Comments fingertips on edge lifting off Walker Activities Walker Activities Bicycle Equipment belt, BBs Duration 5 mins Comments pt very unstable requiring manual assist constantly Pediatric/Neuro Gross Motor Coordination Activities PNF D1,D2 UE PNF D1 LE 10 bilat Manual assist and cuing PT-OP-T Assessment and Plan Start: 11/05/18 18:49 Freq: Status: Active Protocol: Document 03/20/19 11:00 [facility] (Rec: 03/20/19 15:41 [facility] [email or web address]) Physical Therapy Assessment Goals Gait Deviation Impairment poor foot clearance and stability on LLE Short Term Goal (STG) Pt will be able to demonstrate foot clearance over two consecutive 6 inch obstacles, 1 foot apart with alternating steps w/o use of UE or AD. STG Duration 03/22/2019 [facility] Goal (LTG) Pt will be able to demonstrate eccentric control of RLE while weight bearing on LLE during gait. LTG Duration 05/08/2019 [facility] Impairment dec balance with dynmaic activity [employer] Goal (LTG) Pt will be able to score at least a 20/24 to demonstrate safe dynamic gait and low fall risk. LTG Duration 05/08/2019 [facility] Short Term Goal (STG) Pt will improve score to 30/56 to demonstrate improved balance & safety. STG Duration goal met. 48/56 [employer] Goal (LTG) Pt will improve score to >35/ 56 in order to demonstrate being safe with AD. LTG Duration goal met. 48/56 tinnetti Short Term Goal (STG) Pt will improve score to 19/28 in order to dec risk for falls STG Duration goal met. 21/ [facility] Goal (LTG) Pt will improve score to 24/28 in order to be at low risk for falls LTG Duration goal met. / gait Short Term Goal (STG) Pt will be able to amb with SPC safely STG Duration goal met [employer] Goal (LTG) Pt will be able to amb with DAFO and limited cane usage for balance with overall good B step through and foot clearance. LTG Duration progressing Assessment Summary Assessment Pt has improved with walking in the shallow area. Balance, coordination and step length has gotten much better. Forward steps across pool averages 24 with no assist and no LOB. She shows improvement with stepping over boxes both forward and sideways. Able to step over boxes with step through pattern with CGA. Pt is very challenged with core control in deep water but showed some improvement after several minutes. Seated in saddle, pt was allowed to use toe touch on bottom to right herself but encouraged to use core muscle activation to stay upright. Pt exited pool and walked to bathroom without cane. Physical Therapy Plan Frequency and Duration Frequency of Treatment 2x/Week Duration of Treatment 3 months Plan of Care Start Date 02/05/19 Plan of Care End Date 05/08/19 Next Visit Focus/Plan Next Note Type Treatment Note Next Visit Plan Continue with monster steps forward and sideways across pool counting number of steps. Work on core stabilization in neck deep water.
--- NOTE | 2019-03-27 15:44 | PT.OTN ---
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) Epilepsy, unspecified, intractable, without status epilepticus (03/27/19) Hemiplegia, unspecified affecting left nondominant side (03/27/19) Other reduced mobility (03/27/19) Physical Therapy Treatment Note PT-OP-A Visit Information Start: 11/05/18 18:49 Freq: Status: Active Protocol: Document 03/27/19 11:00 LJ (Rec: 03/27/19 15:43 LJ [email or web address]) Out-Patient Physical Therapy Visit Information Visit Information Visit Type Aquatic Treatment Note Visit Start Time 11:00 Visit Stop Time 11:45 Total Visit Minutes 45 Visit Number 30 Number of LEAD CARE MANAGER Visits 2 PT-OP-B Current Condition Start: 11/05/18 18:49 Freq: Status: Active Protocol: Document 11/06/18 13:45 [facility] (Rec: 11/06/18 14:32 [facility] [id number]) Current Condition History of Current Condition Onset Date 09/18/18 Current 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 She had a R ant temporal lobe resection in 10/19. Pt could walk without AD prior to surgery and was indep with ADLs. Pt has had weakness on L side since she was an so she has worn DAFO since then. At this time the dynamic aspect is stabilized. Pt returned home from inpatient rehab 10/31. Mom helps pt bath with bath chair. Mom helps some w/L side dressing but she is able to do indep also. Pt has selective mutism. Treatment Goals Patient/Caregiver Goals Be able to ride her bike. Be able to get around a lot more. PT-OP-C Subjective Start: 11/05/18 18:49 Freq: Status: Active Protocol: Document 03/27/19 11:00 LJ (Rec: 03/27/19 15:43 LJ [email or web address]) OP-PT Subjective Patient Comments Patient Comments Pt attended OT prior to pool therapy. Pt said she couldn't remember what she did. PT-OP-D Balance Start: 11/05/18 18:51 Freq: Status: Active Protocol: Document 11/06/18 13:45 [facility] (Rec: 11/06/18 18:04 [facility] [email or web address]) Balance Tests Shea Balance Test Shea Balance Test Score 20 Shea Impairment Rating 60 to 79% Impaired (Score 12- 22) PT-OP-E Functional Tests Start: 11/05/18 18:51 Freq: Status: Active Protocol: Document 11/06/18 13:45 [facility] (Rec: 11/06/18 18:04 [facility] [email or web address]) Functional Tests Five Times Sit to Stand Test Score 33 sec Comments use of UE Timed Up and Go (TUG) Score 39 sec Tinetti Balance and Gait Assessment Composite Score 11 Composite Score Impairment Rating 60 to <80% Impaired (Score 6- 11) PT-OP-G Mobility & Gait Start: 11/05/18 18:51 Freq: Status: Active Protocol: Document 11/06/18 13:45 [facility] (Rec: 11/06/18 14:32 [facility] [id number]) OP Mobility Evaluation Bed Mobility Supine to and from Sit Pt required assist w/LLE for bed mobility to L side of bed. OP Gait Assessment Comments Gait Comments Amb w/NBQC in R hand with dec stance time on LLE and dec step length of RLE & clearance . PT-OP-M Strength Start: 11/05/18 18:51 Freq: Status: Active Protocol: Document 11/06/18 13:45 [facility] (Rec: 11/06/18 14:32 [facility] [id number]) Hip Strength Hip Manual Muscle Testing Right Flexion (L2) 4 Good External Rotation 4 Good Internal Rotation 4 Good Left Flexion (L2) 1 Trace Extension (S1) 2- Poor- Abduction 1 Trace Knee Strength Knee Manual Muscle Testing Right Flexion (S2) 4 Good Extension (L3) 4 Good Left Flexion (S2) 1 Trace Extension (L3) 1 Trace Ankle/Foot Strength Ankle and Foot Manual Muscle Testing Right Dorsiflexion (L4) 5 Normal Plantarflexion (S1) 5 Normal Comments tested seated Left Dorsiflexion (L4) 0 Zero PT-OP-Q Treatments Start: 11/05/18 18:49 Freq: Status: Active Protocol: Document 03/17/19 17:55 AR (Rec: 03/17/19 18:09 AR [id number]) Cardio Equipment Recumbent Stepper (Sci-Fit) Duration (Minutes) 6 Resistance 4 Seat Position 7 Other BUE, pt placed hand indep Gym Equipment Shuttle Recovery Bilateral Squats Details B squats Resistance 75# Shuttle Recovery Platform Unstable Reps/Time 2x20 cued to WB equally into B LE Therapeutic Exercises Standing Exercises marches Standing Exercise Name hip, knee and ankle flexion Side left Resistance none Reps/Minutes 10 reps Comments ~40 deg hip flex ROM kicking ball Standing Exercise Name kicking ball Side bilateral Equipment Used playground ball, 30 x each side Reps/Minutes no hand support Step ups Standing Exercise Name to tap 4 step Side bilateral Reps/Minutes 20 ea Therapeutic Activity Therapeutic Activity STS Name STS Reps/Minutes 20 reps Comments pt cued to avoid knee valgus, control descent Stairs Name stairs in lobby Reps/Minutes x2 Comments pt was able to ascend and descend step over step with no railings with CGA after heavy cueing Neuro Re-Education Treatment Balance Activities cox foam Details NBOS eyes closed Surface cox foam pad Reps/Duration 3 min Shuttle board Details stagger stance w balloon volley Surface yellow clips Reps/Duration 5 min Comments cueing to use both UE. pt did well opening L hand. pt challenged today, was not able to maint balance for more than 10 seconds tandem Details bilateral, RLE on green therapad Equipment // bars Reps/Duration 2 min each Comments with balloon volley PT-OP-S Aquatic Treatment Start: 11/17/18 15:12 Freq: Status: Active Protocol: Document 03/27/19 11:00 [facility] (Rec: 03/27/19 15:43 [facility] [email or web address]) Aquatics Treatment Pool Entry/Exit Pool Entry/Exit Method Stairs Assistance Standby Assistance Comments cues to use LUE on rail Water Walking Kerby March Water Level Chest Level Comments opposite hand to delgado Marching Water Level Chest Level Level of Assistance Standby Assistance Comments sweeping arms side to side Sideways Water Level Chest Level Comments cues for toe and body alignment, giant steps Forwards Water Level Chest Level Walking Equipment smiles Level of Assistance Standby Assistance Comments cueing for hand position to keep floats under water Lower Extremity Exercises opposite hand to heel in back of buttocks Body Position Standing Water Level Waist Level Reps/Duration 10 each side Comments leaning against wall Step ups Body Position Standing Water Level Chest Level Equipment 8 Reps/Duration forward and sideways; step over boxes also both directions hip flex/ext, ab/ad Details encouraging no UE support Body Position Standing Water Level Waist Level Reps/Duration 10 bilat ea Comments cross over arm patternwith flexion Upper Extremity Exercises elbow extension at sides with sm BBs Body Position Standing Water Level Waist Level Reps/Duration 15 bilat Comments cues and manual assist Spinal Exercises trunk rotation Body Position Standing Water Level Chest Level Equipment stretch cords-single Reps/Duration 2x12 bilat Comments pt performed well Balance SLS bilat Body Position Standing Water Level Chest Level Comments fingertips on edge lifting off [place] Activities [place] Activities Bicycle Equipment med and lg belts front and back, sm BBs, #2.5 ankle wts Duration 8 mins Comments pt much more stable in deep water with equipment. DLS rocking forward and backwards. PT-OP-T Assessment and Plan Start: 11/05/18 18:49 Freq: Status: Active Protocol: Document 03/27/19 11:00 [facility] (Rec: 03/27/19 15:43 [facility] [email or web address]) Physical Therapy Assessment Goals Gait Deviation Impairment poor foot clearance and stability on LLE Short Term Goal (STG) Pt will be able to demonstrate foot clearance over two consecutive 6 inch obstacles, 1 foot apart with alternating steps w/o use of UE or AD. STG Duration 03/22/2019 Skilled Nursing Goal (LTG) Pt will be able to demonstrate eccentric control of RLE while weight bearing on LLE during gait. LTG Duration 05/08/2019 DGI Impairment dec balance with dynmaic activity Skilled Nursing Goal (LTG) Pt will be able to score at least a 20/24 to demonstrate safe dynamic gait and low fall risk. LTG Duration 05/08/2019 SHEA Short Term Goal (STG) Pt will improve score to 30/56 to demonstrate improved balance & safety. STG Duration goal met. 48/56 Skilled Nursing Goal (LTG) Pt will improve score to >35/ 56 in order to demonstrate being safe with AD. LTG Duration goal met. 48/56 tinnetti Short Term Goal (STG) Pt will improve score to 19/28 in order to dec risk for falls STG Duration goal met. 21/ Skilled Nursing Goal (LTG) Pt will improve score to 24/28 in order to be at low risk for falls LTG Duration goal met. 21/ gait Short Term Goal (STG) Pt will be able to amb with SPC safely STG Duration goal met Skilled Nursing Goal (LTG) Pt will be able to amb with DAFO and limited cane usage for balance with overall good B step through and foot clearance. LTG Duration progressing Assessment Summary Assessment Pt improving with coordination and balance in all depths. Step ups and overs were performed in all directions with a variety of patterns. Pt did well in backwards stepping asking to repeat it. Deep water stabilization, intensity, and coordination much improved this session. Physical Therapy Plan Frequency and Duration Frequency of Treatment 2x/Week Duration of Treatment 3 months Plan of Care Start Date 02/05/19 Plan of Care End Date 05/08/19 Next Visit Focus/Plan Next Note Type Treatment Note Next Visit Plan Continue with monster steps forward and sideways across pool counting number of steps. Work on core stabilization in neck deep water. Pt would like to ride hydrobike next session. Attempt to use UEs rather than BBs in deep water portion of session to encourage more involvement with UEs in swimming actions.
--- NOTE | 2019-04-06 11:50 | PT.OTN ---
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 She had a R ant temporal lobe resection in 10/19. Pt could walk without AD prior to surgery and was indep with ADLs. Pt has had weakness on L side since she was an so she has worn DAFO since then. At this time the dynamic aspect is stabilized. Pt returned home from inpatient rehab 10/31. Mom helps pt bath with bath chair. Mom helps some w/L side dressing but she is able to do indep also. Pt has selective mutism. Treatment Goals Patient/Caregiver Goals Be able to ride her bike. Be able to get around a lot more. PT-OP-C Subjective Start: 11/05/18 18:49 Freq: Status: Active Protocol: Document 04/07/19 09:35 [facility] (Rec: 04/07/19 09:41 [facility] [id number]) OP-PT Subjective Patient Comments Patient Comments No new c/o. PT-OP-D Balance Start: 11/05/18 18:51 Freq: Status: Active Protocol: Document 11/06/18 13:45 [facility] (Rec: 11/06/18 18:04 [facility] [id number]) Balance Tests Shea Balance Test Shea Balance Test Score 20 Shea Impairment Rating 60 to 79% Impaired (Score 12- 22) PT-OP-E Functional Tests Start: 11/05/18 18:51 Freq: Status: Active Protocol: Document 11/06/18 13:45 [facility] (Rec: 11/06/18 18:04 [facility] [id number]) Functional Tests Five Times Sit to Stand Test Score 33 sec Comments use of UE Timed Up and Go (TUG) Score 39 sec Tinetti Balance and Gait Assessment Composite Score 11 Composite Score Impairment Rating 60 to <80% Impaired (Score 6- 11) PT-OP-G Mobility & Gait Start: 11/05/18 18:51 Freq: Status: Active Protocol: Document 11/06/18 13:45 [facility] (Rec: 11/06/18 14:32 [facility] [id number]) OP Mobility Evaluation Bed Mobility Supine to and from Sit Pt required assist w/LLE for bed mobility to L side of bed. OP Gait Assessment Comments Gait Comments Amb w/NBQC in R hand with dec stance time on LLE and dec step length of RLE & clearance . PT-OP-M Strength Start: 11/05/18 18:51 Freq: Status: Active Protocol: Document 11/06/18 13:45 [facility] (Rec: 11/06/18 14:32 [facility] [id number]) Hip Strength Hip Manual Muscle Testing Right Flexion (L2) 4 Good External Rotation 4 Good Internal Rotation 4 Good Left Flexion (L2) 1 Trace Extension (S1) 2- Poor- Abduction 1 Trace Knee Strength Knee Manual Muscle Testing Right Flexion (S2) 4 Good Extension (L3) 4 Good Left Flexion (S2) 1 Trace Extension (L3) 1 Trace Ankle/Foot Strength Ankle and Foot Manual Muscle Testing Right Dorsiflexion (L4) 5 Normal Plantarflexion (S1) 5 Normal Comments tested seated Left Dorsiflexion (L4) 0 Zero PT-OP-Q Treatments Start: 11/05/18 18:49 Freq: Status: Active Protocol: Document 03/17/19 17:55 [facility] (Rec: 03/17/19 18:09 [facility] [id number]) Cardio Equipment Recumbent Stepper (Sci-Fit) Duration (Minutes) 6 Resistance 4 Seat Position 7 Other BUE, pt placed hand indep Gym Equipment Shuttle Recovery Bilateral Squats Details B squats Resistance 75# Shuttle Recovery Platform Unstable Reps/Time 2x20 cued to WB equally into B LE Therapeutic Exercises Standing Exercises marches Standing Exercise Name hip, knee and ankle flexion Side left Resistance none Reps/Minutes 10 reps Comments ~40 deg hip flex ROM kicking ball Standing Exercise Name kicking ball Side bilateral Equipment Used playground ball, 30 x each side Reps/Minutes no hand support Step ups Standing Exercise Name to tap 4 step Side bilateral Reps/Minutes 20 ea Therapeutic Activity Therapeutic Activity STS Name STS Reps/Minutes 20 reps Comments pt cued to avoid knee valgus, control descent Stairs Name stairs in lobby Reps/Minutes x2 Comments pt was able to ascend and descend step over step with no railings with CGA after heavy cueing Neuro Re-Education Treatment Balance Activities cox foam Details NBOS eyes closed Surface cox foam pad Reps/Duration 3 min Shuttle board Details stagger stance w balloon volley Surface yellow clips Reps/Duration 5 min Comments cueing to use both UE. pt did well opening L hand. pt challenged today, was not able to maint balance for more than 10 seconds tandem Details bilateral, RLE on green therapad Equipment // bars Reps/Duration 2 min each Comments with balloon volley PT-OP-S Aquatic Treatment Start: 11/17/18 15:12 Freq: Status: Active Protocol: Document 04/07/19 09:[address] [facility] (Rec: 04/07/19 09:[address] [facility] [id number]) Aquatics Treatment Pool Entry/Exit Pool Entry/Exit Method Stairs Assistance Standby Assistance Comments cues to use LUE on rail Water Walking [place] March Water Level Chest Level Comments opposite hand to delgado Marching Water Level Chest Level Level of Assistance Standby Assistance Comments touching opposite knee Sideways Water Level Chest Level Comments cues for toe and body alignment, giant steps Forwards Water Level Chest Level Walking Equipment smiles Level of Assistance Standby Assistance Comments cueing for hand position to keep floats under water Lower Extremity Exercises hip flex/ext, ab/ad Details encouraging no UE support Body Position Standing Water Level Waist Level Reps/Duration 10 bilat ea Comments cross over arm patternwith flexion Upper Extremity Exercises elbow extension at sides with sm BBs Body Position Standing Water Level Waist Level Reps/Duration 15 bilat Comments cues and manual assist Balance sitting on saddle Body Position Sitting Water Level Neck Level Equipment sm BBs Reps/Duration 2 min Comments manual assist and cueing SLS bilat Body Position Standing Water Level Chest Level Comments fingertips on edge lifting off [place] Activities [place] Activities Bicycle Equipment [place] float, 2.5# ankle weights Duration 8 mins Comments discussing alternative flotation for next session, possible wet vest Pediatric/Neuro Gross Motor Coordination Activities PNF D1,D2 UE PNF D1 LE 10 bilat Manual assist and cuing PT-OP-T Assessment and Plan Start: 11/05/18 18:49 Freq: Status: Active Protocol: Document 04/07/19 09:[address] [facility] (Rec: 04/07/19 09:[address] [facility] [id number]) Physical Therapy Assessment Goals Gait Deviation Impairment poor foot clearance and stability on LLE Short Term Goal (STG) Pt will be able to demonstrate foot clearance over two consecutive 6 inch obstacles, 1 foot apart with alternating steps w/o use of UE or AD. STG Duration 03/22/2019 Gate Person Goal (LTG) Pt will be able to demonstrate eccentric control of RLE while weight bearing on LLE during gait. LTG Duration 05/08/2019 DGI Impairment dec balance with dynmaic activity Care Home Goal (LTG) Pt will be able to score at least a 20/24 to demonstrate safe dynamic gait and low fall risk. LTG Duration 05/08/2019 SHEA Short Term Goal (STG) Pt will improve score to 30/56 to demonstrate improved balance & safety. STG Duration goal met. 48/56 Gate Person Goal (LTG) Pt will improve score to >35/ 56 in order to demonstrate being safe with AD. LTG Duration goal met. 48/56 tinnetti Short Term Goal (STG) Pt will improve score to 19/28 in order to dec risk for falls STG Duration goal met. 21/28 Care Home Goal (LTG) Pt will improve score to 24/28 in order to be at low risk for falls LTG Duration goal met. 21/28 gait Short Term Goal (STG) Pt will be able to amb with SPC safely STG Duration goal met Gate Person Goal (LTG) Pt will be able to amb with DAFO and limited cane usage for balance with overall good B step through and foot clearance. LTG Duration progressing Assessment Summary Assessment Mona needs frequent cues for increased use of her affected UE and LE with all activities , but respnds well to cues especially in quiet environment. Physical Therapy Plan Frequency and Duration Frequency of Treatment 2x/Week Duration of Treatment 3 months Plan of Care Start Date 02/05/19 Plan of Care End Date 05/08/19 Next Visit Focus/Plan Next Note Type Treatment Note Next Visit Plan Hydrobike, continue progression of strengthening, gait, neuro re-education, and balance activities in aquatic and land based PT environments .
--- NOTE | 2019-05-05 17:11 | PT.OTN ---
Current Diagnoses Selective mutism (05/05/19) Epilepsy, unspecified, intractable, without status epilepticus (05/05/19) Hemiplegia, unspecified affecting left nondominant side (05/05/19) Other reduced mobility (05/05/19) Physical Therapy Treatment Note PT-OP-A Visit Information Start: 11/05/18 18:49 Freq: Status: Active Protocol: Document 05/05/19 16:03 [facility] (Rec: 05/05/19 17:11 [facility] [id number]) Out-Patient Physical Therapy Visit Information Visit Information Visit Type Treatment Note Visit Start Time 16:15 Visit Stop Time 16:45 Total Visit Minutes 30 Visit Number 32 Number of FOOD AND DRINK FACTORY WORKERS Visits 0 PT-OP-B Current Condition Start: 11/05/18 18:49 Freq: Status: Active Protocol: Document 11/06/18 13:45 [facility] (Rec: 11/06/18 14:32 [facility] [id number]) Current Condition History of Current Condition Onset Date 09/18/18 Current 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 She had a R ant temporal lobe resection in 10/19. Pt could walk without AD prior to surgery and was indep with ADLs. Pt has had weakness on L side since she was an so she has worn DAFO since then. At this time the dynamic aspect is stabilized. Pt returned home from inpatient rehab 10/31. Mom helps pt bath with bath chair. Mom helps some w/L side dressing but she is able to do indep also. Pt has selective mutism. Treatment Goals Patient/Caregiver Goals Be able to ride her bike. Be able to get around a lot more. PT-OP-C Subjective Start: 11/05/18 18:49 Freq: Status: Active Protocol: Document 05/05/19 16:03 [facility] (Rec: 05/05/19 17:11 [facility] [id number]) OP-PT Subjective Patient Comments Patient Comments MOm reports theyw ere unable to get into any appts for the month of Apr except this one and one in the pool early in the month. PT-OP-D Balance Start: 11/05/18 18:51 Freq: Status: Active Protocol: Document 11/06/18 13:45 [facility] (Rec: 11/06/18 18:04 [facility] [id number]) Balance Tests [place] Balance Test [place] Balance Test Score 20 [place] Impairment Rating 60 to 79% Impaired (Score 12- 22) PT-OP-E Functional Tests Start: 11/05/18 18:51 Freq: Status: Active Protocol: Document 05/05/19 16:03 [facility] (Rec: 05/05/19 17:11 [facility] [id number]) Functional Tests Dynamic Gait Index (DGI) Score 12 PT-OP-G Mobility & Gait Start: 11/05/18 18:51 Freq: Status: Active Protocol: Document 11/06/18 13:45 [facility] (Rec: 11/06/18 14:32 [facility] [id number]) OP Mobility Evaluation Bed Mobility Supine to and from Sit Pt required assist w/LLE for bed mobility to L side of bed. OP Gait Assessment Comments Gait Comments Amb w/NBQC in R hand with dec stance time on LLE and dec step length of RLE & clearance . PT-OP-M Strength Start: 11/05/18 18:51 Freq: Status: Active Protocol: Document 11/06/18 13:45 [facility] (Rec: 11/06/18 14:32 [facility] [id number]) Hip Strength Hip Manual Muscle Testing Right Flexion (L2) 4 Good External Rotation 4 Good Internal Rotation 4 Good Left Flexion (L2) 1 Trace Extension (S1) 2- Poor- Abduction 1 Trace Knee Strength Knee Manual Muscle Testing Right Flexion (S2) 4 Good Extension (L3) 4 Good Left Flexion (S2) 1 Trace Extension (L3) 1 Trace Ankle/Foot Strength Ankle and Foot Manual Muscle Testing Right Dorsiflexion (L4) 5 Normal Plantarflexion (S1) 5 Normal Comments tested seated Left Dorsiflexion (L4) 0 Zero PT-OP-Q Treatments Start: 11/05/18 18:49 Freq: Status: Active Protocol: Document 05/05/19 16:03 [facility] (Rec: 05/05/19 17:11 [facility] [id number]) Gym Equipment Shuttle Balance red clips Details fwd&side: WBOS, NBOS fwd: staggered stance Comments while hitting balloon w/BUE Neuro Re-Education Treatment Balance Activities balance board Details lat shift B Bosu Details standing balance without UE standing on kiana disc Surface blue dynadisc Comments playing catch w/playground ball hurdles Details all set 1 ft apart with reciprocal steps Reps/Duration 6x balloon volley with LEs Details kicking playground ball Surface firm Reps/Duration BLE PT-OP-S Aquatic Treatment Start: 11/17/18 15:12 Freq: Status: Active Protocol: Document 04/07/19 09:35 [facility] (Rec: 04/07/19 09:41 [facility] [id number]) Aquatics Treatment Pool Entry/Exit Pool Entry/Exit Method Stairs Assistance Standby Assistance Comments cues to use LUE on rail Water Walking [place] March Water Level Chest Level Comments opposite hand to delgado Marching Water Level Chest Level Level of Assistance Standby Assistance Comments touching opposite knee Sideways Water Level Chest Level Comments cues for toe and body alignment, giant steps Forwards Water Level Chest Level Walking Equipment smiles Level of Assistance Standby Assistance Comments cueing for hand position to keep floats under water Lower Extremity Exercises hip flex/ext, ab/ad Details encouraging no UE support Body Position Standing Water Level Waist Level Reps/Duration 10 bilat ea Comments cross over arm patternwith flexion Upper Extremity Exercises elbow extension at sides with sm BBs Body Position Standing Water Level Waist Level Reps/Duration 15 bilat Comments cues and manual assist Balance sitting on saddle Body Position Sitting Water Level Neck Level Equipment sm BBs Reps/Duration 2 min Comments manual assist and cueing SLS bilat Body Position Standing Water Level Chest Level Comments fingertips on edge lifting off [place] Activities [place] Activities Bicycle Equipment huslia float, 2.5# ankle weights Duration 8 mins Comments discussing alternative flotation for next session, possible wet vest Pediatric/Neuro Gross Motor Coordination Activities PNF D1,D2 UE PNF D1 LE 10 bilat Manual assist and cuing PT-OP-T Assessment and Plan Start: 11/05/18 18:49 Freq: Status: Active Protocol: Document 05/05/19 16:03 [facility] (Rec: 05/05/19 17:11 [facility] [id number]) Physical Therapy Assessment Goals Gait Deviation Impairment poor foot clearance and stability on LLE Short Term Goal (STG) Pt will be able to demonstrate foot clearance over two consecutive 6 inch obstacles, 1 foot apart with alternating steps w/o use of UE or AD. STG Duration achieved [facility] Goal (LTG) Pt will be able to demonstrate eccentric control of RLE while weight bearing on LLE during gait. 05/05-significant improvement LTG Duration 07/05/19 DGI Impairment dec balance with dynmaic activity Recycling Program Manager Goal (LTG) Pt will be able to score at least a 20/24 to demonstrate safe dynamic gait and low fall risk. 05/05-06/30 LTG Duration 07/05/19 [place] Short Term Goal (STG) Pt will improve score to 30/56 to demonstrate improved balance & safety. STG Duration goal met. 48/56 [facility] Goal (LTG) Pt will improve score to >35/ 56 in order to demonstrate being safe with AD. LTG Duration goal met. 48/56 tinnetti Short Term Goal (STG) Pt will improve score to 19/28 in order to dec risk for falls STG Duration goal met. [facility] Goal (LTG) Pt will improve score to 24/28 in order to be at low risk for falls LTG Duration goal met. gait Short Term Goal (STG) Pt will be able to amb with SPC safely STG Duration goal met Recycling Program Manager Goal (LTG) Pt will be able to amb with DAFO and limited cane usage for balance with overall good B step through and foot clearance. LTG Duration achieved Assessment Summary Assessment Mona judd to progress well with balance and overall gait with dec instances of LOB. She was tested for the first time on DGI today which showed deficits with dynamic gait and balance activities. She would benefit from cont PT in order to address these deficits. Physical Therapy Plan Frequency and Duration Frequency of Treatment 2x/Week Duration of Treatment 2 months Plan of Care Start Date 05/05/19 Plan of Care End Date 07/05/19 Therapeutic Interventions Therapeutic Interventions Aquatic Therapy,Balance Training,Coordination Training ,Gait Training,Home Exercise Program,Manual Therapy, Neuromuscular Re-education, Patient/Caregiver Education, Self-Care/Home Management,Soft Tissue Mobilization,Taping, Therapeutic Activities, Therapeutic Exercises Modalities Cold Pack/Ice Massage,Electric Stimulation,Hot Packs Next Visit Focus/Plan Next Note Type Treatment Note Next Visit Plan Work on dynamic balance activities with head turns, turning circles, step overs and around.
--- NOTE | 2019-05-05 17:12 | PT.OPPOC ---
Current Diagnoses Selective mutism (05/05/19) Epilepsy, unspecified, intractable, without status epilepticus (05/05/19) Hemiplegia, unspecified affecting left nondominant side (05/05/19) Other reduced mobility (05/05/19) Visit Care Team Role Provider Type Kirstin Parmar DO Attending Provider Physician Primary Care Provider Specialty: [facility] Address: [address] [place] [address], [address], [facility] Email: [email or web address] Plan Of Care PT-OP-T Assessment and Plan Start: 11/05/18 18:49 Freq: Status: Active Protocol: Document 05/05/19 16:03 [facility] (Rec: 05/05/19 17:11 [facility] [id number]) Physical Therapy Assessment Goals Gait Deviation Impairment poor foot clearance and stability on LLE Short Term Goal (STG) Pt will be able to demonstrate foot clearance over two consecutive 6 inch obstacles, 1 foot apart with alternating steps w/o use of UE or AD. STG Duration achieved Veterinary Receptionist Goal (LTG) Pt will be able to demonstrate eccentric control of RLE while weight bearing on LLE during gait. 05/05-significant improvement LTG Duration 07/05/19 DGI Impairment dec balance with dynmaic activity Veterinary Receptionist Goal (LTG) Pt will be able to score at least a 20/24 to demonstrate safe dynamic gait and low fall risk. 05/05-06/30 LTG Duration 07/05/19 SHEA Short Term Goal (STG) Pt will improve score to 30/56 to demonstrate improved balance & safety. STG Duration goal met. 48/56 [facility] Goal (LTG) Pt will improve score to >35/ 56 in order to demonstrate being safe with AD. LTG Duration goal met. 48/56 tinnetti Short Term Goal (STG) Pt will improve score to 19/28 in order to dec risk for falls STG Duration goal met. [facility] Goal (LTG) Pt will improve score to 24/28 in order to be at low risk for falls LTG Duration goal met. / gait Short Term Goal (STG) Pt will be able to amb with SPC safely STG Duration goal met Senior Living Goal (LTG) Pt will be able to amb with DAFO and limited cane usage for balance with overall good B step through and foot clearance. LTG Duration achieved Assessment Summary Assessment Mona cont to progress well with balance and overall gait with dec instances of LOB. She was tested for the first time on DGI today which showed deficits with dynamic gait and balance activities. She would benefit from cont PT in order to address these deficits. Physical Therapy Plan Frequency and Duration Frequency of Treatment 2x/Week Duration of Treatment 2 months Plan of Care Start Date 05/05/19 Plan of Care End Date 07/05/19 Therapeutic Interventions Therapeutic Interventions Aquatic Therapy,Balance Training,Coordination Training ,Gait Training,Home Exercise Program,Manual Therapy, Neuromuscular Re-education, Patient/Caregiver Education, Self-Care/Home Management,Soft Tissue Mobilization,Taping, Therapeutic Activities, Therapeutic Exercises Modalities Cold Pack/Ice Massage,Electric Stimulation,Hot Packs Next Visit Focus/Plan Next Note Type Treatment Note Next Visit Plan Work on dynamic balance activities with head turns, turning circles, step overs and around. Plan of Care Dates Plan of Care Start Date 05/05/19 Plan of Care End Date 07/05/19
--- NOTE | 2019-05-08 14:28 | PT.OTN ---
Current Diagnoses Selective mutism (05/08/19) Epilepsy, unspecified, intractable, without status epilepticus (05/08/19) Hemiplegia, unspecified affecting left nondominant side (05/08/19) Other reduced mobility (05/08/19) Physical Therapy Treatment Note PT-OP-A Visit Information Start: 11/05/18 18:49 Freq: Status: Active Protocol: Document 05/08/19 11:45 SUNITHA (Rec: 05/08/19 14:28 LJ [id number]) Out-Patient Physical Therapy Visit Information Visit Information Visit Type Aquatic Treatment Note Visit Start Time 11:45 Visit Stop Time 12:30 Total Visit Minutes 45 Visit Number 33 Number of COMMERCIAL SOLAR SALES CONSULTANT Visits 1 PT-OP-B Current Condition Start: 11/05/18 18:49 Freq: Status: Active Protocol: Document 11/06/18 13:45 [facility] (Rec: 11/06/18 14:32 [facility] [id number]) Current Condition History of Current Condition Onset Date 09/18/18 Current 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 She had a R ant temporal lobe resection in 10/19. Pt could walk without AD prior to surgery and was indep with ADLs. Pt has had weakness on L side since she was an so she has worn DAFO since then. At this time the dynamic aspect is stabilized. Pt returned home from inpatient rehab 10/31. Mom helps pt bath with bath chair. Mom helps some w/L side dressing but she is able to do indep also. Pt has selective mutism. Treatment Goals Patient/Caregiver Goals Be able to ride her bike. Be able to get around a lot more. PT-OP-C Subjective Start: 11/05/18 18:49 Freq: Status: Active Protocol: Document 05/08/19 11:45 LJ (Rec: 05/08/19 14:28 LJ [id number]) OP-PT Subjective Patient Comments Patient Comments Pt seems to be happy to be in the pool again. PT-OP-D Balance Start: 11/05/18 18:51 Freq: Status: Active Protocol: Document 11/06/18 13:45 [facility] (Rec: 11/06/18 18:04 [facility] [id number]) Balance Tests Ventura Balance Test Ventura Balance Test Score 20 [place] Impairment Rating 60 to 79% Impaired (Score 12- 22) PT-OP-E Functional Tests Start: 11/05/18 18:51 Freq: Status: Active Protocol: Document 05/05/19 16:03 [facility] (Rec: 05/05/19 17:11 [facility] [id number]) Functional Tests Dynamic Gait Index (DGI) Score 12 PT-OP-G Mobility & Gait Start: 11/05/18 18:51 Freq: Status: Active Protocol: Document 11/06/18 13:45 [facility] (Rec: 11/06/18 14:32 [facility] [id number]) OP Mobility Evaluation Bed Mobility Supine to and from Sit Pt required assist w/LLE for bed mobility to L side of bed. OP Gait Assessment Comments Gait Comments Amb w/NBQC in R hand with dec stance time on LLE and dec step length of RLE & clearance . PT-OP-M Strength Start: 11/05/18 18:51 Freq: Status: Active Protocol: Document 11/06/18 13:45 [facility] (Rec: 11/06/18 14:32 [facility] [id number]) Hip Strength Hip Manual Muscle Testing Right Flexion (L2) 4 Good External Rotation 4 Good Internal Rotation 4 Good Left Flexion (L2) 1 Trace Extension (S1) 2- Poor- Abduction 1 Trace Knee Strength Knee Manual Muscle Testing Right Flexion (S2) 4 Good Extension (L3) 4 Good Left Flexion (S2) 1 Trace Extension (L3) 1 Trace Ankle/Foot Strength Ankle and Foot Manual Muscle Testing Right Dorsiflexion (L4) 5 Normal Plantarflexion (S1) 5 Normal Comments tested seated Left Dorsiflexion (L4) 0 Zero PT-OP-Q Treatments Start: 11/05/18 18:49 Freq: Status: Active Protocol: Document 05/05/19 16:03 [facility] (Rec: 05/05/19 17:11 [facility] [id number]) Gym Equipment Shuttle Balance red clips Details fwd&side: WBOS, NBOS fwd: staggered stance Comments while hitting balloon w/BUE Neuro Re-Education Treatment Balance Activities balance board Details lat shift B Bosu Details standing balance without UE standing on kiana disc Surface blue dynadisc Comments playing catch w/playground ball hurdles Details all set 1 ft apart with reciprocal steps Reps/Duration 6x balloon volley with LEs Details kicking playground ball Surface firm Reps/Duration BLE PT-OP-S Aquatic Treatment Start: 11/17/18 15:12 Freq: Status: Active Protocol: Document 05/08/19 11:45 SUNITHA (Rec: 05/08/19 14:28 LJ [id number]) Aquatics Treatment Pool Entry/Exit Pool Entry/Exit Method Stairs Assistance Standby Assistance Comments cues to use LUE on rail Water Walking forward w/arms abducted Water Level Chest Level Walking Equipment UE paddles Comments cueing for hand position [place] March Water Level Chest Level Comments opposite hand to delgado Marching Water Level Chest Level Level of Assistance Standby Assistance Comments touching opposite knee Sideways Water Level Chest Level Comments cues for toe and body alignment, giant steps Forwards Water Level Chest Level Walking Equipment smiles Level of Assistance Standby Assistance Comments cueing for hand position to keep floats under water Lower Extremity Exercises hip cw/ccw Water Level Chest Level Reps/Duration 10 bilateral Comments cues to keep leg straight Step ups Body Position Standing Water Level Chest Level Equipment 8 Reps/Duration forward and sideways; step over boxes also both directions squats Reps/Duration 10x Comments cues for increased weight- bearing left LE HS curls, Knee extension Details at wall with handhold Body Position Standing Water Level Waist Level Equipment Small Noodle Reps/Duration 15 bilat Comments manual assist LEs (L>R) hip flex/ext, ab/ad Details encouraging no UE support Body Position Standing Water Level Waist Level Reps/Duration 10 bilat ea Upper Extremity Exercises elbow extension at sides with sm BBs Body Position Standing Water Level Waist Level Reps/Duration 15 bilat Comments cues and manual assist figure 8 in coronal plane with UE paddles Details no belt Body Position Standing Water Level Chest Level Reps/Duration 10 horiz ab/ad, lateral ab/ad, flex/ext Body Position Standing Water Level Chest Level Reps/Duration 10 ea Comments manual and verbal cuing Spinal Exercises trunk rotation Body Position Standing Water Level Chest Level Equipment stretch cords-single Reps/Duration 2x12 bilat Comments pt performed well Balance sitting on saddle Body Position Sitting Water Level Neck Level Equipment sm BBs Reps/Duration 4 min Comments manual assist and cueing [place] Activities [place] Activities Bicycle,Cross Country,Hip Abduction/Adduction Equipment saddle; belt on backwards + noodle + wts Duration 10 Swim Strokes Flutter Equipment Flotation Belt,Noodle Laps/Duration 2 min PT-OP-T Assessment and Plan Start: 11/05/18 18:49 Freq: Status: Active Protocol: Document 05/08/19 11:45 LJ (Rec: 05/08/19 14:28 LJ [id number]) Physical Therapy Assessment Goals Gait Deviation Impairment poor foot clearance and stability on LLE Short Term Goal (STG) Pt will be able to demonstrate foot clearance over two consecutive 6 inch obstacles, 1 foot apart with alternating steps w/o use of UE or AD. STG Duration achieved Jail Goal (LTG) Pt will be able to demonstrate eccentric control of RLE while weight bearing on LLE during gait. 05/05-significant improvement LTG Duration 07/05/19 DGI Impairment dec balance with dynmaic activity Orthopedic Technician Goal (LTG) Pt will be able to score at least a 20/24 to demonstrate safe dynamic gait and low fall risk. 05/05-06/30 LTG Duration 07/05/19 gait Short Term Goal (STG) Pt will be able to amb with SPC safely STG Duration goal met Jail Goal (LTG) Pt will be able to amb with DAFO and limited cane usage for balance with overall good B step through and foot clearance. LTG Duration achieved Assessment Summary Assessment Pt has improved with gait, balance, and deep water stabilization. Still requires cueing to use LUE. Pt is learning reach and pull stroke for increasing ROM, functionality, and strength of UEs. Physical Therapy Plan Frequency and Duration Frequency of Treatment 2x/Week Duration of Treatment 2 months Plan of Care Start Date 05/05/19 Plan of Care End Date 07/05/19 Therapeutic Interventions Therapeutic Interventions Aquatic Therapy,Balance Training,Coordination Training ,Gait Training,Home Exercise Program,Manual Therapy, Neuromuscular Re-education, Patient/Caregiver Education, Self-Care/Home Management,Soft Tissue Mobilization,Taping, Therapeutic Activities, Therapeutic Exercises Modalities Cold Pack/Ice Massage,Electric Stimulation,Hot Packs Next Visit Focus/Plan Next Note Type Treatment Note Next Visit Plan Work on dynamic balance activities with head turns, turning circles, step overs and around. Progress pt in water therapy with added resistance and increased intensity and progressing swimming strokes.
--- NOTE | 2019-05-11 19:24 | PT.OTN ---
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) Epilepsy, unspecified, intractable, without status epilepticus (05/11/19) Hemiplegia, unspecified affecting left nondominant side (05/11/19) Other reduced mobility (05/11/19) Physical Therapy Treatment Note PT-OP-A Visit Information Start: 11/05/18 18:49 Freq: Status: Active Protocol: Document 05/11/19 13:01 MT (Rec: 05/11/19 15:05 MT [id number]) Out-Patient Physical Therapy Visit Information Visit Information Visit Type Treatment Note Visit Start Time 13:01 Visit Stop Time 13:45 Total Visit Minutes 44 Visit Number 34 Number of TECHNICIAN PREVENTATIVE MEDICINE Visits 0 PT-OP-B Current Condition Start: 11/05/18 18:49 Freq: Status: Active Protocol: Document 11/06/18 13:45 [facility] (Rec: 11/06/18 14:32 LR [id number]) Current Condition History of Current Condition Onset Date 09/18/18 Current 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 She had a R ant temporal lobe resection in 10/19. Pt could walk without AD prior to surgery and was indep with ADLs. Pt has had weakness on L side since she was an so she has worn DAFO since then. At this time the dynamic aspect is stabilized. Pt returned home from inpatient rehab 10/31. Mom helps pt bath with bath chair. Mom helps some w/L side dressing but she is able to do indep also. Pt has selective mutism. Treatment Goals Patient/Caregiver Goals Be able to ride her bike. Be able to get around a lot more. PT-OP-C Subjective Start: 11/05/18 18:49 Freq: Status: Active Protocol: Document 05/11/19 13:01 MT (Rec: 05/11/19 15:05 MT [id number]) OP-PT Subjective Patient Comments Patient Comments Mom was able to schedule out through rest of May. Pt has been communicating with PT more. Pt remarks that she has been primarily independent with her dressing and bathroom tasks. She tends to not use her cane during walking within her house. PT-OP-D Balance Start: 11/05/18 18:51 Freq: Status: Active Protocol: Document 11/06/18 13:45 [facility] (Rec: 11/06/18 18:04 [facility] [id number]) Balance Tests [place] Balance Test [place] Balance Test Score 20 [place] Impairment Rating 60 to 79% Impaired (Score 12- 22) PT-OP-E Functional Tests Start: 11/05/18 18:51 Freq: Status: Active Protocol: Document 05/05/19 16:03 [facility] (Rec: 05/05/19 17:11 [facility] [id number]) Functional Tests Dynamic Gait Index (DGI) Score 12 PT-OP-G Mobility & Gait Start: 11/05/18 18:51 Freq: Status: Active Protocol: Document 11/06/18 13:45 [facility] (Rec: 11/06/18 14:32 [facility] [id number]) OP Mobility Evaluation Bed Mobility Supine to and from Sit Pt required assist w/LLE for bed mobility to L side of bed. OP Gait Assessment Comments Gait Comments Amb w/NBQC in R hand with dec stance time on LLE and dec step length of RLE & clearance . PT-OP-M Strength Start: 11/05/18 18:51 Freq: Status: Active Protocol: Document 11/06/18 13:45 [facility] (Rec: 11/06/18 14:32 [facility] [id number]) Hip Strength Hip Manual Muscle Testing Right Flexion (L2) 4 Good External Rotation 4 Good Internal Rotation 4 Good Left Flexion (L2) 1 Trace Extension (S1) 2- Poor- Abduction 1 Trace Knee Strength Knee Manual Muscle Testing Right Flexion (S2) 4 Good Extension (L3) 4 Good Left Flexion (S2) 1 Trace Extension (L3) 1 Trace Ankle/Foot Strength Ankle and Foot Manual Muscle Testing Right Dorsiflexion (L4) 5 Normal Plantarflexion (S1) 5 Normal Comments tested seated Left Dorsiflexion (L4) 0 Zero PT-OP-Q Treatments Start: 11/05/18 18:49 Freq: Status: Active Protocol: Document 05/11/19 13:01 MT (Rec: 05/11/19 15:05 MT [id number]) Gym Equipment Shuttle Balance red clips Details fwd&side: WBOS Reps/Duration 20 balloon taps Comments while hitting balloon w/BUE Gait Training Gait Activity stairs Description ascend/descend stairs Device Used one sided HR Level of Assistance SBA Surface 6 inch stairs Distance/Duration 16 stairs Comments emphasis on step through pattern up the stairs with one foot on each step and controlled ecxcentric descent and progression toward decreased use of HR Gait Description weaving through cones, turning in circles around cones Device Used w/o device Level of Assistance CGA Surface firm Distance/Duration 20 ft x 6 Treatment Focus dynamic balance Comments cueing to walk as fast as possible while maintaining safety. Cueing to have both arms extended to side whiel ambulating // bars Description backward walking, hurdles Device Used w/o device Level of Assistance CGA Surface firm Comments walking through hurdles with focus on step through pattern, side stepping through hurdles . Backward walking Neuro Re-Education Treatment Balance Activities Bosu Details step up/down and standing balance without UE Surface blue side of bosu Reps/Duration 10 eachside stager step Details compliant surface with head turns Surface therapad Equipment blue and black therapad Reps/Duration 2 minutes each direction Comments w/head turns Standing balance with LUE movements Details alternated marching, EC Surface firm Reps/Duration 20 each side balloon volley with LEs Details kicking playground ball Surface firm Reps/Duration BLE Comments attempted to try to have pt put foot on top of ball and roll it forward, but it was too chanllenging, switched to regular kicking PT-OP-S Aquatic Treatment Start: 11/17/18 15:12 Freq: Status: Active Protocol: Document 05/08/19 11:45 SUNITHA (Rec: 05/08/19 14:28 SUN[facility] [id number]) Aquatics Treatment Pool Entry/Exit Pool Entry/Exit Method Stairs Assistance Standby Assistance Comments cues to use LUE on rail Water Walking forward w/arms abducted Water Level Chest Level Walking Equipment UE paddles Comments cueing for hand position Lyle March Water Level Chest Level Comments opposite hand to delgado Marching Water Level Chest Level Level of Assistance Standby Assistance Comments touching opposite knee Sideways Water Level Chest Level Comments cues for toe and body alignment, giant steps Forwards Water Level Chest Level Walking Equipment smiles Level of Assistance Standby Assistance Comments cueing for hand position to keep floats under water Lower Extremity Exercises hip cw/ccw Water Level Chest Level Reps/Duration 10 bilateral Comments cues to keep leg straight Step ups Body Position Standing Water Level Chest Level Equipment 8 Reps/Duration forward and sideways; step over boxes also both directions squats Reps/Duration 10x Comments cues for increased weight- bearing left LE HS curls, Knee extension Details at wall with handhold Body Position Standing Water Level Waist Level Equipment Small Noodle Reps/Duration 15 bilat Comments manual assist LEs (L>R) hip flex/ext, ab/ad Details encouraging no UE support Body Position Standing Water Level Waist Level Reps/Duration 10 bilat ea Upper Extremity Exercises elbow extension at sides with sm BBs Body Position Standing Water Level Waist Level Reps/Duration 15 bilat Comments cues and manual assist figure 8 in coronal plane with UE paddles Details no belt Body Position Standing Water Level Chest Level Reps/Duration 10 horiz ab/ad, lateral ab/ad, flex/ext Body Position Standing Water Level Chest Level Reps/Duration 10 ea Comments manual and verbal cuing Spinal Exercises trunk rotation Body Position Standing Water Level Chest Level Equipment stretch cords-single Reps/Duration 2x12 bilat Comments pt performed well Balance sitting on saddle Body Position Sitting Water Level Neck Level Equipment sm BBs Reps/Duration 4 min Comments manual assist and cueing [place] Activities [place] Activities Bicycle,Cross Country,Hip Abduction/Adduction Equipment saddle; belt on backwards + noodle + wts Duration 10 Swim Strokes Flutter Equipment Flotation Belt,Noodle Laps/Duration 2 min PT-OP-T Assessment and Plan Start: 11/05/18 18:49 Freq: Status: Active Protocol: Document 05/11/19 13:01 MT (Rec: 05/11/19 15:05 MT [id number]) Physical Therapy Assessment Goals Gait Deviation Impairment poor foot clearance and stability on LLE Short Term Goal (STG) Pt will be able to demonstrate foot clearance over two consecutive 6 inch obstacles, 1 foot apart with alternating steps w/o use of UE or AD. STG Duration achieved Copy Center Associate Goal (LTG) Pt will be able to demonstrate eccentric control of RLE while weight bearing on LLE during gait. 05/05-significant improvement LTG Duration 07/05/19 DGI Impairment dec balance with dynmaic activity Copy Center Associate Goal (LTG) Pt will be able to score at least a 20/24 to demonstrate safe dynamic gait and low fall risk. 05/05-06/30 LTG Duration 07/05/19 gait Short Term Goal (STG) Pt will be able to amb with SPC safely STG Duration goal met Nursing Home Goal (LTG) Pt will be able to amb with DAFO and limited cane usage for balance with overall good B step through and foot clearance. LTG Duration achieved Assessment Summary Assessment Pt is progressing with decreased LOB events during gait and dynamic balance activities. Pt's gait w/o device is more stable than previous sessions, but she demonstrates decreased speed when navigating objects. She is able to perform more difficult balance activities and incorporating unstable surfaces, head turns, and EC into balance. Ball kicks have become fairly easy for pt. She demonstrates more frequent use of her L UE with the balloon passes. Physical Therapy Plan Frequency and Duration Frequency of Treatment 2x/Week Duration of Treatment 2 months Plan of Care Start Date 05/05/19 Plan of Care End Date 07/05/19 Next Visit Focus/Plan Next Note Type Treatment Note Next Visit Plan Work on dynamic balance activities with head turns, turning circles, step overs and around.
--- NOTE | 2019-05-15 13:41 | PT.OTN ---
Current Diagnoses Selective mutism (05/15/19) Epilepsy, unspecified, intractable, without status epilepticus (05/15/19) Hemiplegia, unspecified affecting left nondominant side (05/15/19) Other reduced mobility (05/15/19) Physical Therapy Treatment Note PT-OP-A Visit Information Start: 11/05/18 18:49 Freq: Status: Active Protocol: Document 05/15/19 11:00 LJ (Rec: 05/15/19 13:40 [id number]) Out-Patient Physical Therapy Visit Information Visit Information Visit Type Aquatic Treatment Note Visit Start Time 11:00 Visit Stop Time 11:50 Total Visit Minutes 50 Visit Number 35 Number of BUFFET SERVER Visits 1 PT-OP-B Current Condition Start: 11/05/18 18:49 Freq: Status: Active Protocol: Document 11/06/18 13:45 [facility] (Rec: 11/06/18 14:32 [facility] [id number]) Current Condition History of Current Condition Onset Date 09/18/18 Current 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 She had a R ant temporal lobe resection in 10/19. Pt could walk without AD prior to surgery and was indep with ADLs. Pt has had weakness on L side since she was an so she has worn DAFO since then. At this time the dynamic aspect is stabilized. Pt returned home from inpatient rehab 10/31. Mom helps pt bath with bath chair. Mom helps some w/L side dressing but she is able to do indep also. Pt has selective mutism. Treatment Goals Patient/Caregiver Goals Be able to ride her bike. Be able to get around a lot more. PT-OP-C Subjective Start: 11/05/18 18:49 Freq: Status: Active Protocol: Document 05/15/19 11:00 LJ (Rec: 05/15/19 13:40 LJ [id number]) OP-PT Subjective Patient Comments Patient Comments Pt continues to converse more with therapist. States her cousins are staying with them right now. PT-OP-D Balance Start: 11/05/18 18:51 Freq: Status: Active Protocol: Document 11/06/18 13:45 [facility] (Rec: 11/06/18 18:04 [facility] [id number]) Balance Tests [place] Balance Test [place] Balance Test Score 20 [place] Impairment Rating 60 to 79% Impaired (Score 12- 22) PT-OP-E Functional Tests Start: 11/05/18 18:51 Freq: Status: Active Protocol: Document 05/05/19 16:03 [facility] (Rec: 05/05/19 17:11 [facility] [id number]) Functional Tests Dynamic Gait Index (DGI) Score 12 PT-OP-G Mobility & Gait Start: 11/05/18 18:51 Freq: Status: Active Protocol: Document 11/06/18 13:45 [facility] (Rec: 11/06/18 14:32 [facility] [id number]) OP Mobility Evaluation Bed Mobility Supine to and from Sit Pt required assist w/LLE for bed mobility to L side of bed. OP Gait Assessment Comments Gait Comments Amb w/NBQC in R hand with dec stance time on LLE and dec step length of RLE & clearance . PT-OP-M Strength Start: 11/05/18 18:51 Freq: Status: Active Protocol: Document 11/06/18 13:45 [facility] (Rec: 11/06/18 14:32 [facility] [id number]) Hip Strength Hip Manual Muscle Testing Right Flexion (L2) 4 Good External Rotation 4 Good Internal Rotation 4 Good Left Flexion (L2) 1 Trace Extension (S1) 2- Poor- Abduction 1 Trace Knee Strength Knee Manual Muscle Testing Right Flexion (S2) 4 Good Extension (L3) 4 Good Left Flexion (S2) 1 Trace Extension (L3) 1 Trace Ankle/Foot Strength Ankle and Foot Manual Muscle Testing Right Dorsiflexion (L4) 5 Normal Plantarflexion (S1) 5 Normal Comments tested seated Left Dorsiflexion (L4) 0 Zero PT-OP-Q Treatments Start: 11/05/18 18:49 Freq: Status: Active Protocol: Document 05/11/19 13:01 MT (Rec: 05/11/19 15:05 MT [id number]) Gym Equipment Shuttle Balance red clips Details fwd&side: WBOS Reps/Duration 20 balloon taps Comments while hitting balloon w/BUE Gait Training Gait Activity stairs Description ascend/descend stairs Device Used one sided HR Level of Assistance SBA Surface 6 inch stairs Distance/Duration 16 stairs Comments emphasis on step through pattern up the stairs with one foot on each step and controlled ecxcentric descent and progression toward decreased use of HR Gait Description weaving through cones, turning in circles around cones Device Used w/o device Level of Assistance CGA Surface firm Distance/Duration 20 ft x 6 Treatment Focus dynamic balance Comments cueing to walk as fast as possible while maintaining safety. Cueing to have both arms extended to side whiel ambulating // bars Description backward walking, hurdles Device Used w/o device Level of Assistance CGA Surface firm Comments walking through hurdles with focus on step through pattern, side stepping through hurdles . Backward walking Neuro Re-Education Treatment Balance Activities Bosu Details step up/down and standing balance without UE Surface blue side of bosu Reps/Duration 10 eachside stager step Details compliant surface with head turns Surface therapad Equipment blue and black therapad Reps/Duration 2 minutes each direction Comments w/head turns Standing balance with LUE movements Details alternated marching, EC Surface firm Reps/Duration 20 each side balloon volley with LEs Details kicking playground ball Surface firm Reps/Duration BLE Comments attempted to try to have pt put foot on top of ball and roll it forward, but it was too chanllenging, switched to regular kicking PT-OP-S Aquatic Treatment Start: 11/17/18 15:12 Freq: Status: Active Protocol: Document 05/15/19 11:00 SUNITHA (Rec: 05/15/19 13:40 [facility]ITH[facility] [id number]) Aquatics Treatment Pool Entry/Exit Pool Entry/Exit Method Stairs Assistance Standby Assistance Comments cues to use LUE on rail Water Walking quick directional change Water Level Chest Level Level of Assistance Standby Assistance,Verbal Cues hopping Water Level Chest Level Walking Equipment Large Noodle Level of Assistance Standby Assistance Comments uni and bi forward w/arms abducted Water Level Chest Level Walking Equipment glove Comments cueing for hand position Hyannis March Water Level Chest Level Comments opposite hand to delgado Marching Water Level Chest Level Level of Assistance Standby Assistance Comments touching opposite knee Monster Walk Water Level Chest Level Level of Assistance Standby Assistance Comments pt cued to use UEs for support Sideways Water Level Chest Level Comments cues for toe and body alignment, giant steps Backwards Water Level Chest Level Level of Assistance Standby Assistance Comments looking over shoulder Lower Extremity Exercises opposite hand to heel in back of buttocks Body Position Standing Water Level Waist Level Reps/Duration 10 each side Hoe downs Water Level Chest Level Equipment Small Noodle Reps/Duration 10 Comments manual assist for alignment hip cw/ccw Water Level Chest Level Reps/Duration 10 bilateral Comments cues to keep leg straight hip flex/ext, ab/ad Details encouraging no UE support Body Position Standing Water Level Waist Level Reps/Duration 10 bilat ea Comments cues for increased effort Upper Extremity Exercises horiz ab/ad, lateral ab/ad, flex/ext Body Position Standing Water Level Chest Level Reps/Duration 10 ea Comments verbal cuing for increased intensity Balance sitting on saddle Body Position Sitting Water Level Neck Level Equipment lg noodle Reps/Duration 3 min Comments manual assist and cueing Mobile Activities Mobile Activities Bicycle,Cross Country,Hip Abduction/Adduction Other Activities modified front crawl Equipment belt on backwards + noodle + wts Duration 8 Swim Strokes Flutter Equipment Noodle Laps/Duration 2 min PT-OP-T Assessment and Plan Start: 11/05/18 18:49 Freq: Status: Active Protocol: Document 05/15/19 11:00 SUNITHA (Rec: 05/15/19 13:40 [facility] [id number]) Physical Therapy Assessment Goals Gait Deviation Impairment poor foot clearance and stability on LLE Short Term Goal (STG) Pt will be able to demonstrate foot clearance over two consecutive 6 inch obstacles, 1 foot apart with alternating steps w/o use of UE or AD. STG Duration achieved Skilled Nursing Goal (LTG) Pt will be able to demonstrate eccentric control of RLE while weight bearing on LLE during gait. 05/05-significant improvement LTG Duration 07/05/19 DGI Impairment dec balance with dynmaic activity Field Recruiter Goal (LTG) Pt will be able to score at least a /24 to demonstrate safe dynamic gait and low fall risk. 05/05-06/30 LTG Duration 07/05/19 gait Short Term Goal (STG) Pt will be able to amb with SPC safely STG Duration goal met Skilled Nursing Goal (LTG) Pt will be able to amb with DAFO and limited cane usage for balance with overall good B step through and foot clearance. LTG Duration achieved Assessment Summary Assessment Pt progressing well with ambulation in pool. Hip abd is diminished with sideways ambulation. Pt able to hop in shallow water w/o LOB using noodle. Also taking larger strides when cued. Better trunk control in deep water Physical Therapy Plan Frequency and Duration Frequency of Treatment 2x/Week Duration of Treatment 2 months Plan of Care Start Date 05/05/19 Plan of Care End Date 07/05/19 Therapeutic Interventions Therapeutic Interventions Aquatic Therapy,Balance Training,Coordination Training ,Gait Training,Home Exercise Program,Manual Therapy, Neuromuscular Re-education, Patient/Caregiver Education, Self-Care/Home Management,Soft Tissue Mobilization,Taping, Therapeutic Activities, Therapeutic Exercises Modalities Cold Pack/Ice Massage,Electric Stimulation,Hot Packs Next Visit Focus/Plan Next Note Type Treatment Note Next Visit Plan Work on dynamic balance activities with head turns, turning circles, step overs and around.
--- NOTE | 2019-05-18 14:54 | PT.OTN ---
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) Epilepsy, unspecified, intractable, without status epilepticus (05/18/19) Hemiplegia, unspecified affecting left nondominant side (05/18/19) Other reduced mobility (05/18/19) Physical Therapy Treatment Note PT-OP-A Visit Information Start: 11/05/18 18:49 Freq: Status: Active Protocol: Document 05/18/19 13:01 MT (Rec: 05/18/19 14:21 MT [id number]) Out-Patient Physical Therapy Visit Information Visit Information Visit Type Treatment Note Visit Start Time 13:01 Visit Stop Time 13:43 Total Visit Minutes 42 Visit Number 36 Number of OTHER SPORTS OFFICIAL Visits 0 PT-OP-B Current Condition Start: 11/05/18 18:49 Freq: Status: Active Protocol: Document 11/06/18 13:45 [facility] (Rec: 11/06/18 14:32 [facility] [id number]) Current Condition History of Current Condition Onset Date 09/18/18 Current 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 She had a R ant temporal lobe resection in 10/19. Pt could walk without AD prior to surgery and was indep with ADLs. Pt has had weakness on L side since she was an so she has worn DAFO since then. At this time the dynamic aspect is stabilized. Pt returned home from inpatient rehab 10/31. Mom helps pt bath with bath chair. Mom helps some w/L side dressing but she is able to do indep also. Pt has selective mutism. Treatment Goals Patient/Caregiver Goals Be able to ride her bike. Be able to get around a lot more. PT-OP-C Subjective Start: 11/05/18 18:49 Freq: Status: Active Protocol: Document 05/18/19 13:01 MT (Rec: 05/18/19 14:21 MT [id number]) OP-PT Subjective Patient Comments Patient Comments Pt agrreeable to participate in PT session. She has been able to answer yes/no questions with therapist. PT-OP-D Balance Start: 11/05/18 18:51 Freq: Status: Active Protocol: Document 11/06/18 13:45 [facility] (Rec: 11/06/18 18:04 [facility] [id number]) Balance Tests [place] Balance Test [place] Balance Test Score 20 [place] Impairment Rating 60 to 79% Impaired (Score 12- 22) PT-OP-E Functional Tests Start: 11/05/18 18:51 Freq: Status: Active Protocol: Document 05/05/19 16:03 [facility] (Rec: 05/05/19 17:11 [facility] [id number]) Functional Tests Dynamic Gait Index (DGI) Score 12 PT-OP-G Mobility & Gait Start: 11/05/18 18:51 Freq: Status: Active Protocol: Document 11/06/18 13:45 [facility] (Rec: 11/06/18 14:32 [facility] [id number]) OP Mobility Evaluation Bed Mobility Supine to and from Sit Pt required assist w/LLE for bed mobility to L side of bed. OP Gait Assessment Comments Gait Comments Amb w/NBQC in R hand with dec stance time on LLE and dec step length of RLE & clearance . PT-OP-M Strength Start: 11/05/18 18:51 Freq: Status: Active Protocol: Document 11/06/18 13:45 [facility] (Rec: 11/06/18 14:32 [facility] [id number]) Hip Strength Hip Manual Muscle Testing Right Flexion (L2) 4 Good External Rotation 4 Good Internal Rotation 4 Good Left Flexion (L2) 1 Trace Extension (S1) 2- Poor- Abduction 1 Trace Knee Strength Knee Manual Muscle Testing Right Flexion (S2) 4 Good Extension (L3) 4 Good Left Flexion (S2) 1 Trace Extension (L3) 1 Trace Ankle/Foot Strength Ankle and Foot Manual Muscle Testing Right Dorsiflexion (L4) 5 Normal Plantarflexion (S1) 5 Normal Comments tested seated Left Dorsiflexion (L4) 0 Zero PT-OP-Q Treatments Start: 11/05/18 18:49 Freq: Status: Active Protocol: Document 05/18/19 13:01 MT (Rec: 05/18/19 14:21 MT [id number]) Gym Equipment Shuttle Balance red clips Details fwd&side: WBOS Reps/Duration 20 balloon taps Comments while hitting balloon w/BUE and focus on extending L UE elbow and fingers Gait Training Gait Activity step ups/downs Description forward/sideways Device Used no device Level of Assistance CGA-Cholo Surface 5 inch step Distance/Duration 15 stairs Description ascend/descend stairs Device Used no HR Level of Assistance SBA Surface 6 inch stairs Distance/Duration 8 Comments emphasis on step through pattern up stairs and step to pattern going down stairs. No use of HR Gait Description weaving through cones, turning in circles around cones Device Used w/o device Level of Assistance CGA Surface firm Distance/Duration 20 ft x 6 Treatment Focus dynamic balance Comments cueing to walk as fast as possible while maintaining safety. Cueing to have both arms extended to side whiel ambulating // bars Description hurdles forward/sideways Device Used w/o device Level of Assistance CGA Surface firm Comments walking through hurdles with focus on step through pattern, side stepping through hurdles . Neuro Re-Education Treatment Balance Activities SLS Details SLS Surface firm Reps/Duration total of 1 min each leg Comments challenging for pt especially on L side balance board Details rock forward/back and side/ side Surface rocker board Reps/Duration 10 weight shifts each direction stager step Details compliant surface with head turns Surface therapad Equipment blue and black therapad Reps/Duration 2 minutes each direction Comments w/head turns Standing balance with LUE movements Details marches EC; kicking ball standing on therapad Surface compliant (blue therapad) Reps/Duration 15 each side Comments pt required to touch foot down after each kick PT-OP-S Aquatic Treatment Start: 11/17/18 15:12 Freq: Status: Active Protocol: Document 05/15/19 11:00 [facility] (Rec: 05/15/19 13:40 [facility] [id number]) Aquatics Treatment Pool Entry/Exit Pool Entry/Exit Method Stairs Assistance Standby Assistance Comments cues to use LUE on rail Water Walking quick directional change Water Level Chest Level Level of Assistance Standby Assistance,Verbal Cues hopping Water Level Chest Level Walking Equipment Large Noodle Level of Assistance Standby Assistance Comments uni and bi forward w/arms abducted Water Level Chest Level Walking Equipment glove Comments cueing for hand position [place] March Water Level Chest Level Comments opposite hand to delgado Marching Water Level Chest Level Level of Assistance Standby Assistance Comments touching opposite knee Monster Walk Water Level Chest Level Level of Assistance Standby Assistance Comments pt cued to use UEs for support Sideways Water Level Chest Level Comments cues for toe and body alignment, giant steps Backwards Water Level Chest Level Level of Assistance Standby Assistance Comments looking over shoulder Lower Extremity Exercises opposite hand to heel in back of buttocks Body Position Standing Water Level Waist Level Reps/Duration 10 each side Hoe downs Water Level Chest Level Equipment Small Noodle Reps/Duration 10 Comments manual assist for alignment hip cw/ccw Water Level Chest Level Reps/Duration 10 bilateral Comments cues to keep leg straight hip flex/ext, ab/ad Details encouraging no UE support Body Position Standing Water Level Waist Level Reps/Duration 10 bilat ea Comments cues for increased effort Upper Extremity Exercises horiz ab/ad, lateral ab/ad, flex/ext Body Position Standing Water Level Chest Level Reps/Duration 10 ea Comments verbal cuing for increased intensity Balance sitting on saddle Body Position Sitting Water Level Neck Level Equipment lg noodle Reps/Duration 3 min Comments manual assist and cueing [place] Activities [place] Activities Bicycle,[place],Hip Abduction/Adduction Other Activities modified front crawl Equipment belt on backwards + noodle + wts Duration 8 Swim Strokes Flutter Equipment Noodle Laps/Duration 2 min PT-OP-T Assessment and Plan Start: 11/05/18 18:49 Freq: Status: Active Protocol: Document 05/18/19 13:01 MT (Rec: 05/18/19 14:21 MT [id number]) Physical Therapy Assessment Goals Gait Deviation Impairment poor foot clearance and stability on LLE Short Term Goal (STG) Pt will be able to demonstrate foot clearance over two consecutive 6 inch obstacles, 1 foot apart with alternating steps w/o use of UE or AD. STG Duration achieved Intermediate Goal (LTG) Pt will be able to demonstrate eccentric control of RLE while weight bearing on LLE during gait. 05/05-significant improvement LTG Duration 07/05/19 DGI Impairment dec balance with dynmaic activity Sql Engineer Goal (LTG) Pt will be able to score at least a /24 to demonstrate safe dynamic gait and low fall risk. 05/05-06/30 LTG Duration 07/05/19 gait Short Term Goal (STG) Pt will be able to amb with SPC safely STG Duration goal met Intermediate Goal (LTG) Pt will be able to amb with DAFO and limited cane usage for balance with overall good B step through and foot clearance. LTG Duration achieved Assessment Summary Assessment Pt demonstrated decreased LOB events with gait and balance activities. Pt was challenged by SLS activities, especially on L side. Pt's gait without her AD is becoming more stable with less LOB events. Pt navigated the step ups/downs well in fwd direction and laterally. Pt is still challenged by hurdles and controlled stepping activities , but it is getting easier for pt. Physical Therapy Plan Frequency and Duration Frequency of Treatment 2x/Week Duration of Treatment 2 months Plan of Care Start Date 05/05/19 Plan of Care End Date 07/05/19 Next Visit Focus/Plan Next Note Type Treatment Note Next Visit Plan Work on dynamic balance activities with head turns, turning circles, step overs and around; continue to work on SLS, and step up/downs
--- NOTE | 2019-05-22 16:34 | PT.OTN ---
Current Diagnoses Selective mutism (05/22/19) Epilepsy, unspecified, intractable, without status epilepticus (05/22/19) Hemiplegia, unspecified affecting left nondominant side (05/22/19) Other reduced mobility (05/22/19) Physical Therapy Treatment Note PT-OP-A Visit Information Start: 11/05/18 18:49 Freq: Status: Active Protocol: Document 05/22/19 11:00 LJ (Rec: 05/22/19 16:34 [id number]) Out-Patient Physical Therapy Visit Information Visit Information Visit Type Aquatic Treatment Note Visit Start Time 11:00 Visit Stop Time 11:50 Total Visit Minutes 50 Visit Number 37 Number of HYDROMETER CALIBRATOR Visits 1 PT-OP-B Current Condition Start: 11/05/18 18:49 Freq: Status: Active Protocol: Document 11/06/18 13:45 [facility] (Rec: 11/06/18 14:32 [facility] [id number]) Current Condition History of Current Condition Onset Date 09/18/18 Current 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 She had a R ant temporal lobe resection in 10/19. Pt could walk without AD prior to surgery and was indep with ADLs. Pt has had weakness on L side since she was an so she has worn DAFO since then. At this time the dynamic aspect is stabilized. Pt returned home from inpatient rehab 10/31. Mom helps pt bath with bath chair. Mom helps some w/L side dressing but she is able to do indep also. Pt has selective mutism. Treatment Goals Patient/Caregiver Goals Be able to ride her bike. Be able to get around a lot more. PT-OP-C Subjective Start: 11/05/18 18:49 Freq: Status: Active Protocol: Document 05/22/19 11:00 LJ (Rec: 05/22/19 16:34 [id number]) OP-PT Subjective Patient Comments Patient Comments Pt states she likes aquatic therapy. Mother and pt in agreement to trial the hydrobike this session. PT-OP-D Balance Start: 11/05/18 18:51 Freq: Status: Active Protocol: Document 11/06/18 13:45 [facility] (Rec: 11/06/18 18:04 [facility] [id number]) Balance Tests [place] Balance Test [place] Balance Test Score 20 [place] Impairment Rating 60 to 79% Impaired (Score 12- 22) PT-OP-E Functional Tests Start: 11/05/18 18:51 Freq: Status: Active Protocol: Document 05/05/19 16:03 [facility] (Rec: 05/05/19 17:11 [facility] [id number]) Functional Tests Dynamic Gait Index (DGI) Score 12 PT-OP-G Mobility & Gait Start: 11/05/18 18:51 Freq: Status: Active Protocol: Document 11/06/18 13:45 [facility] (Rec: 11/06/18 14:32 [facility] [id number]) OP Mobility Evaluation Bed Mobility Supine to and from Sit Pt required assist w/LLE for bed mobility to L side of bed. OP Gait Assessment Comments Gait Comments Amb w/NBQC in R hand with dec stance time on LLE and dec step length of RLE & clearance . PT-OP-M Strength Start: 11/05/18 18:51 Freq: Status: Active Protocol: Document 11/06/18 13:45 [facility] (Rec: 11/06/18 14:32 [facility] [id number]) Hip Strength Hip Manual Muscle Testing Right Flexion (L2) 4 Good External Rotation 4 Good Internal Rotation 4 Good Left Flexion (L2) 1 Trace Extension (S1) 2- Poor- Abduction 1 Trace Knee Strength Knee Manual Muscle Testing Right Flexion (S2) 4 Good Extension (L3) 4 Good Left Flexion (S2) 1 Trace Extension (L3) 1 Trace Ankle/Foot Strength Ankle and Foot Manual Muscle Testing Right Dorsiflexion (L4) 5 Normal Plantarflexion (S1) 5 Normal Comments tested seated Left Dorsiflexion (L4) 0 Zero PT-OP-Q Treatments Start: 11/05/18 18:49 Freq: Status: Active Protocol: Document 05/18/19 13:01 MT (Rec: 05/18/19 14:21 MT [id number]) Gym Equipment Shuttle Balance red clips Details fwd&side: WBOS Reps/Duration 20 balloon taps Comments while hitting balloon w/BUE and focus on extending L UE elbow and fingers Gait Training Gait Activity step ups/downs Description forward/sideways Device Used no device Level of Assistance CGA-Cholo Surface 5 inch step Distance/Duration 15 stairs Description ascend/descend stairs Device Used no HR Level of Assistance SBA Surface 6 inch stairs Distance/Duration 8 Comments emphasis on step through pattern up stairs and step to pattern going down stairs. No use of HR Gait Description weaving through cones, turning in circles around cones Device Used w/o device Level of Assistance CGA Surface firm Distance/Duration 20 ft x 6 Treatment Focus dynamic balance Comments cueing to walk as fast as possible while maintaining safety. Cueing to have both arms extended to side whiel ambulating // bars Description hurdles forward/sideways Device Used w/o device Level of Assistance CGA Surface firm Comments walking through hurdles with focus on step through pattern, side stepping through hurdles . Neuro Re-Education Treatment Balance Activities SLS Details SLS Surface firm Reps/Duration total of 1 min each leg Comments challenging for pt especially on L side balance board Details rock forward/back and side/ side Surface rocker board Reps/Duration 10 weight shifts each direction stager step Details compliant surface with head turns Surface therapad Equipment blue and black therapad Reps/Duration 2 minutes each direction Comments w/head turns Standing balance with LUE movements Details marches EC; kicking ball standing on therapad Surface compliant (blue therapad) Reps/Duration 15 each side Comments pt required to touch foot down after each kick PT-OP-S Aquatic Treatment Start: 11/17/18 15:12 Freq: Status: Active Protocol: Document 05/22/19 11:00 [facility] (Rec: 05/22/19 16:34 [id number]) Aquatics Treatment Pool Entry/Exit Pool Entry/Exit Method Stairs Assistance Standby Assistance Comments no cues needed Water Walking box maze Water Level Chest Level Level of Assistance Standby Assistance,Contact Guard Assistance,Verbal Cues Comments weaving in/out of boxes + stepping up/down hopping Water Level Chest Level Level of Assistance Standby Assistance Comments uni and bi; hh on wall; hop over weight forward w/arms abducted Water Level Chest Level Walking Equipment swim paddle Level of Assistance Contact Guard Assistance Comments manual cueing for hand position [place] March Water Level Chest Level Level of Assistance Contact Guard Assistance, Minimal Assistance Comments opposite hand to delgado Marching Water Level Chest Level Level of Assistance Standby Assistance,Contact Guard Assistance Comments touching opposite knee Sideways Water Level Chest Level Comments cues for toe and body alignment, giant steps Lower Extremity Exercises SLS Details bilateral Water Level Chest Level Reps/Duration 4x30 opposite hand to heel in back of buttocks Body Position Standing Water Level Waist Level Reps/Duration 10 each side hip cw/ccw Water Level Chest Level Reps/Duration 10 bilateral Comments cues to keep leg straight Step ups Body Position Standing Water Level Chest Level Equipment 8 Reps/Duration forward and sideways; step over boxes also both directions HS curls, Knee extension Details at wall with handhold Body Position Standing Water Level Waist Level Equipment Small Noodle Reps/Duration 15 bilat Comments manual assist LEs (L>R) hip flex/ext, ab/ad Details encouraging no UE support Body Position Standing Water Level Waist Level Reps/Duration 10 bilat ea Comments cues for increased effort Upper Extremity Exercises horiz ab/ad, lateral ab/ad, flex/ext Body Position Standing Water Level Chest Level Reps/Duration 10 ea Comments verbal cuing for increased intensity Balance seated on white noodle Details horse position Body Position Sitting Water Level Chest Level Reps/Duration 2 min [place] Activities Other Activities modified front and back crawl using noodle under arms; assisted with kicking PT-OP-T Assessment and Plan Start: 11/05/18 18:49 Freq: Status: Active Protocol: Document 05/22/19 11:00 [facility] (Rec: 05/22/19 16:34 [facility] [id number]) Physical Therapy Assessment Goals Gait Deviation Impairment poor foot clearance and stability on LLE Short Term Goal (STG) Pt will be able to demonstrate foot clearance over two consecutive 6 inch obstacles, 1 foot apart with alternating steps w/o use of UE or AD. STG Duration achieved Spool Salvager Goal (LTG) Pt will be able to demonstrate eccentric control of RLE while weight bearing on LLE during gait. 05/05-significant improvement LTG Duration 07/05/19 DGI Impairment dec balance with dynmaic activity Jail Goal (LTG) Pt will be able to score at least a to demonstrate safe dynamic gait and low fall risk. 05/05-06/30 LTG Duration 07/05/19 gait Short Term Goal (STG) Pt will be able to amb with SPC safely STG Duration goal met Jail Goal (LTG) Pt will be able to amb with DAFO and limited cane usage for balance with overall good B step through and foot clearance. LTG Duration achieved Assessment Summary Assessment Pt has shown good improvement with gait and balance in pool. Steps have gotten larger and pt using UEs more with gait activities. Continues to improve trunk control in modified swimming positions. Box activities show improved balance and stabilization when reducing buoyancy when on top of boxes. Physical Therapy Plan Frequency and Duration Frequency of Treatment 2x/Week Duration of Treatment 2 months Plan of Care Start Date 05/05/19 Plan of Care End Date 07/05/19 Therapeutic Interventions Therapeutic Interventions Aquatic Therapy,Balance Training,Coordination Training ,Gait Training,Home Exercise Program,Manual Therapy, Neuromuscular Re-education, Patient/Caregiver Education, Self-Care/Home Management,Soft Tissue Mobilization,Taping, Therapeutic Activities, Therapeutic Exercises Modalities Cold Pack/Ice Massage,Electric Stimulation,Hot Packs Next Visit Focus/Plan Next Note Type Treatment Note Next Visit Plan Work on dynamic balance activities with head turns, turning circles, step overs and around; continue to work on SLS, and step up/downs. Introduce more core activities in pool.
--- NOTE | 2019-05-25 15:36 | PT.OTN ---
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) Epilepsy, unspecified, intractable, without status epilepticus (05/25/19) Hemiplegia, unspecified affecting left nondominant side (05/25/19) Other reduced mobility (05/25/19) Physical Therapy Treatment Note PT-OP-A Visit Information Start: 11/05/18 18:49 Freq: Status: Active Protocol: Document 05/25/19 13:00 MT (Rec: 05/25/19 14:36 MT [id number]) Out-Patient Physical Therapy Visit Information Visit Information Visit Type Treatment Note Visit Start Time 13:00 Visit Stop Time 13:44 Total Visit Minutes 44 Visit Number 38 Number of CAR DISPATCHER Visits 0 PT-OP-B Current Condition Start: 11/05/18 18:49 Freq: Status: Active Protocol: Document 11/06/18 13:45 [facility] (Rec: 11/06/18 14:32 [facility] [id number]) Current Condition History of Current Condition Onset Date 09/18/18 Current 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 She had a R ant temporal lobe resection in 10/19. Pt could walk without AD prior to surgery and was indep with ADLs. Pt has had weakness on L side since she was an so she has worn DAFO since then. At this time the dynamic aspect is stabilized. Pt returned home from inpatient rehab 10/31. Mom helps pt bath with bath chair. Mom helps some w/L side dressing but she is able to do indep also. Pt has selective mutism. Treatment Goals Patient/Caregiver Goals Be able to ride her bike. Be able to get around a lot more. PT-OP-C Subjective Start: 11/05/18 18:49 Freq: Status: Active Protocol: Document 05/25/19 13:00 MT (Rec: 05/25/19 14:36 MT [id number]) OP-PT Subjective Patient Comments Patient Comments Pt agreeable to participate in PT. She demonstrates increased communication with therapist. Mom stated that pt does not have home exercises to do, but she does work on the stairs PT-OP-D Balance Start: 11/05/18 18:51 Freq: Status: Active Protocol: Document 11/06/18 13:45 [facility] (Rec: 11/06/18 18:04 [facility] [id number]) Balance Tests Ventura Balance Test Ventura Balance Test Score 20 [place] Impairment Rating 60 to 79% Impaired (Score 12- 22) PT-OP-E Functional Tests Start: 11/05/18 18:51 Freq: Status: Active Protocol: Document 05/05/19 16:03 [facility] (Rec: 05/05/19 17:11 [facility] [id number]) Functional Tests Dynamic Gait Index (DGI) Score 12 PT-OP-G Mobility & Gait Start: 11/05/18 18:51 Freq: Status: Active Protocol: Document 11/06/18 13:45 [facility] (Rec: 11/06/18 14:32 [facility] [id number]) OP Mobility Evaluation Bed Mobility Supine to and from Sit Pt required assist w/LLE for bed mobility to L side of bed. OP Gait Assessment Comments Gait Comments Amb w/NBQC in R hand with dec stance time on LLE and dec step length of RLE & clearance . PT-OP-M Strength Start: 11/05/18 18:51 Freq: Status: Active Protocol: Document 11/06/18 13:45 [facility] (Rec: 11/06/18 14:32 [facility] [id number]) Hip Strength Hip Manual Muscle Testing Right Flexion (L2) 4 Good External Rotation 4 Good Internal Rotation 4 Good Left Flexion (L2) 1 Trace Extension (S1) 2- Poor- Abduction 1 Trace Knee Strength Knee Manual Muscle Testing Right Flexion (S2) 4 Good Extension (L3) 4 Good Left Flexion (S2) 1 Trace Extension (L3) 1 Trace Ankle/Foot Strength Ankle and Foot Manual Muscle Testing Right Dorsiflexion (L4) 5 Normal Plantarflexion (S1) 5 Normal Comments tested seated Left Dorsiflexion (L4) 0 Zero PT-OP-Q Treatments Start: 11/05/18 18:49 Freq: Status: Active Protocol: Document 05/25/19 13:00 MT (Rec: 05/25/19 14:36 MT [id number]) Therapeutic Exercises Sitting Exercises hip flexion Sitting Exercise Name seated marches Side bilateral Reps/Minutes 10 Comments added HEP knee extension Sitting Exercise Name seated knee extension Side bilateral Reps/Minutes 10 Comments added to HEP Standing Exercises marches Standing Exercise Name fwd and lateral toe taps Side bilateral Equipment Used 6 inch step Reps/Minutes 10 each Comments added to HEP Gait Training Gait Activity step ups/downs Description forward/sideways Device Used no device Level of Assistance CGA-Cholo Surface 5 inch step Distance/Duration 15 stairs Description ascend/descend stairs Device Used no HR Level of Assistance SBA Surface 6 inch stairs Distance/Duration 8 Comments emphasis on step through pattern up stairs and step to pattern going down stairs. No use of HR // bars Description hurdles forward/sideways/ backwards Device Used w/o device Level of Assistance CGA Surface firm Comments walking through hurdles with focus on step through pattern, side stepping through hurdles . Neuro Re-Education Treatment Balance Activities SLS Details SLS Surface firm Reps/Duration total of 1 min each leg Comments challenging for pt especially on L side balance board Details rock forward/back and side/ side Surface rocker board Reps/Duration 10 weight shifts each direction stager step Details compliant surface with head turns Surface therapad Equipment blue and black therapad Reps/Duration 2 minutes each direction Comments w/head turns Standing balance with LUE movements Details marches EC; kicking ball standing on therapad Surface compliant (blue therapad) Reps/Duration 15 each side Comments pt required to touch foot down after each kick PT-OP-S Aquatic Treatment Start: 11/17/18 15:12 Freq: Status: Active Protocol: Document 05/22/19 11:00 [facility] (Rec: 05/22/19 16:34 [facility] [id number]) Aquatics Treatment Pool Entry/Exit Pool Entry/Exit Method Stairs Assistance Standby Assistance Comments no cues needed Water Walking box maze Water Level Chest Level Level of Assistance Standby Assistance,Contact Guard Assistance,Verbal Cues Comments weaving in/out of boxes + stepping up/down hopping Water Level Chest Level Level of Assistance Standby Assistance Comments uni and bi; hh on wall; hop over weight forward w/arms abducted Water Level Chest Level Walking Equipment swim paddle Level of Assistance Contact Guard Assistance Comments manual cueing for hand position [place] March Water Level Chest Level Level of Assistance Contact Guard Assistance, Minimal Assistance Comments opposite hand to delgado Marching Water Level Chest Level Level of Assistance Standby Assistance,Contact Guard Assistance Comments touching opposite knee Sideways Water Level Chest Level Comments cues for toe and body alignment, giant steps Lower Extremity Exercises SLS Details bilateral Water Level Chest Level Reps/Duration 4x30 opposite hand to heel in back of buttocks Body Position Standing Water Level Waist Level Reps/Duration 10 each side hip cw/ccw Water Level Chest Level Reps/Duration 10 bilateral Comments cues to keep leg straight Step ups Body Position Standing Water Level Chest Level Equipment 8 Reps/Duration forward and sideways; step over boxes also both directions HS curls, Knee extension Details at wall with handhold Body Position Standing Water Level Waist Level Equipment Small Noodle Reps/Duration 15 bilat Comments manual assist LEs (L>R) hip flex/ext, ab/ad Details encouraging no UE support Body Position Standing Water Level Waist Level Reps/Duration 10 bilat ea Comments cues for increased effort Upper Extremity Exercises horiz ab/ad, lateral ab/ad, flex/ext Body Position Standing Water Level Chest Level Reps/Duration 10 ea Comments verbal cuing for increased intensity Balance seated on white noodle Details horse position Body Position Sitting Water Level Chest Level Reps/Duration 2 min Clifford Activities Other Activities modified front and back crawl using noodle under arms; assisted with kicking PT-OP-T Assessment and Plan Start: 11/05/18 18:49 Freq: Status: Active Protocol: Document 05/25/19 13:00 MT (Rec: 05/25/19 14:36 MT [id number]) Physical Therapy Assessment Goals Gait Deviation Impairment poor foot clearance and stability on LLE Short Term Goal (STG) Pt will be able to demonstrate foot clearance over two consecutive 6 inch obstacles, 1 foot apart with alternating steps w/o use of UE or AD. STG Duration achieved Fpc Goal (LTG) Pt will be able to demonstrate eccentric control of RLE while weight bearing on LLE during gait. 05/05-significant improvement LTG Duration 07/05/19 DGI Impairment dec balance with dynmaic activity Fpc Goal (LTG) Pt will be able to score at least a to demonstrate safe dynamic gait and low fall risk. 05/05-06/30 LTG Duration 07/05/19 gait Short Term Goal (STG) Pt will be able to amb with SPC safely STG Duration goal met Fpc Goal (LTG) Pt will be able to amb with DAFO and limited cane usage for balance with overall good B step through and foot clearance. LTG Duration achieved Assessment Summary Assessment Pt demonstrated improvement with balance and stability when navigating obstacles. She continued to be challenged with SLS activities. Pt is able to ambulate without her AD with more stability. Pt highly challenged by sideways and backwards directions with obstacles. HEP developed for pt to begin doing at home with seated marches and kicks, and standing lateral/fwd toe taps up steps Physical Therapy Plan Frequency and Duration Frequency of Treatment 2x/Week Duration of Treatment 2 months Plan of Care Start Date 05/05/19 Plan of Care End Date 07/05/19 Next Visit Focus/Plan Next Note Type Treatment Note Next Visit Plan Progress HEP, Work on dynamic balance activities with head turns, turning circles, step overs and around; continue to work on SLS, and step up/downs .
--- NOTE | 2019-06-01 13:22 | PT-OP ANOTE ---
Pt's home number called and message left re: no show. Informed of next treatment time in message.
--- NOTE | 2019-06-08 18:27 | PT.OTN ---
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) Epilepsy, unspecified, intractable, without status epilepticus (06/08/19) Hemiplegia, unspecified affecting left nondominant side (06/08/19) Other reduced mobility (06/08/19) Physical Therapy Treatment Note PT-OP-A Visit Information Start: 11/05/18 18:49 Freq: Status: Active Protocol: Document 06/08/19 13:45 MT (Rec: 06/08/19 16:20 MT [email or web address]) Out-Patient Physical Therapy Visit Information Visit Information Visit Type Treatment Note Visit Start Time 13:45 Visit Stop Time 14:24 Total Visit Minutes 39 Visit Number 39 Number of INSTRUCTIONAL TECHNOLOGY DIRECTOR Visits 0 PT-OP-B Current Condition Start: 11/05/18 18:49 Freq: Status: Active Protocol: Document 11/06/18 13:45 [facility] (Rec: 11/06/18 14:32 [facility] [id number]) Current Condition History of Current Condition Onset Date 09/18/18 Current 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 She had a R ant temporal lobe resection in 10/19. Pt could walk without AD prior to surgery and was indep with ADLs. Pt has had weakness on L side since she was an so she has worn DAFO since then. At this time the dynamic aspect is stabilized. Pt returned home from inpatient rehab 10/31. Mom helps pt bath with bath chair. Mom helps some w/L side dressing but she is able to do indep also. Pt has selective mutism. Treatment Goals Patient/Caregiver Goals Be able to ride her bike. Be able to get around a lot more. PT-OP-C Subjective Start: 11/05/18 18:49 Freq: Status: Active Protocol: Document 06/08/19 13:45 MT (Rec: 06/08/19 16:20 MT [email or web address]) OP-PT Subjective Patient Comments Patient Comments Pt agreeable to participate in PT session. She demonstrates increased communication with therapist and is able to verbally answer some open ended questions PT-OP-D Balance Start: 11/05/18 18:51 Freq: Status: Active Protocol: Document 11/06/18 13:45 LR (Rec: 11/06/18 18:04 [facility] [email or web address]) Balance Tests Ventura Balance Test Ventura Balance Test Score 20 [place] Impairment Rating 60 to 79% Impaired (Score 12- 22) PT-OP-E Functional Tests Start: 11/05/18 18:51 Freq: Status: Active Protocol: Document 05/05/19 16:03 [facility] (Rec: 05/05/19 17:11 [facility] [id number]) Functional Tests Dynamic Gait Index (DGI) Score 12 PT-OP-G Mobility & Gait Start: 11/05/18 18:51 Freq: Status: Active Protocol: Document 11/06/18 13:45 [facility] (Rec: 11/06/18 14:32 [facility] [id number]) OP Mobility Evaluation Bed Mobility Supine to and from Sit Pt required assist w/LLE for bed mobility to L side of bed. OP Gait Assessment Comments Gait Comments Amb w/NBQC in R hand with dec stance time on LLE and dec step length of RLE & clearance . PT-OP-M Strength Start: 11/05/18 18:51 Freq: Status: Active Protocol: Document 11/06/18 13:45 [facility] (Rec: 11/06/18 14:32 [facility] [id number]) Hip Strength Hip Manual Muscle Testing Right Flexion (L2) 4 Good External Rotation 4 Good Internal Rotation 4 Good Left Flexion (L2) 1 Trace Extension (S1) 2- Poor- Abduction 1 Trace Knee Strength Knee Manual Muscle Testing Right Flexion (S2) 4 Good Extension (L3) 4 Good Left Flexion (S2) 1 Trace Extension (L3) 1 Trace Ankle/Foot Strength Ankle and Foot Manual Muscle Testing Right Dorsiflexion (L4) 5 Normal Plantarflexion (S1) 5 Normal Comments tested seated Left Dorsiflexion (L4) 0 Zero PT-OP-Q Treatments Start: 11/05/18 18:49 Freq: Status: Active Protocol: Document 06/08/19 13:45 MT (Rec: 06/08/19 16:20 MT [email or web address]) Gym Equipment Shuttle Balance red clips Details while hitting balloon Comments fwd/back; side/side Gait Training Gait Activity cones Description gait drills with cones Device Used none Level of Assistance CGA Surface firm Comments weave through cones, stop at each cone, turn around each cone hurdles Description hurdles fwd/back/sideways Level of Assistance CGA/Cholo Surface firm Comments hurdles one foot apart step ups/downs Description forward/sideways Device Used no device Level of Assistance CGA-Cholo Surface 5 inch step Distance/Duration 15 Neuro Re-Education Treatment Balance Activities SLS Details SLS Surface firm Reps/Duration total of 1 min each leg Comments challenging for pt especially on L side balance board Details rock forward/back and side/ side Surface rocker board Reps/Duration 10 weight shifts each direction Comments w/ head turns Standing balance with LUE movements Details toe taps on step Reps/Duration 15 each side NBOS Details feet together stance Surface blue foam Comments w/ head turns PT-OP-S Aquatic Treatment Start: 11/17/18 15:12 Freq: Status: Active Protocol: Document 05/22/19 11:00 [facility] (Rec: 05/22/19 16:34 [facility] [id number]) Aquatics Treatment Pool Entry/Exit Pool Entry/Exit Method Stairs Assistance Standby Assistance Comments no cues needed Water Walking box maze Water Level Chest Level Level of Assistance Standby Assistance,Contact Guard Assistance,Verbal Cues Comments weaving in/out of boxes + stepping up/down hopping Water Level Chest Level Level of Assistance Standby Assistance Comments uni and bi; hh on wall; hop over weight forward w/arms abducted Water Level Chest Level Walking Equipment swim paddle Level of Assistance Contact Guard Assistance Comments manual cueing for hand position [place] March Water Level Chest Level Level of Assistance Contact Guard Assistance, Minimal Assistance Comments opposite hand to delgado Marching Water Level Chest Level Level of Assistance Standby Assistance,Contact Guard Assistance Comments touching opposite knee Sideways Water Level Chest Level Comments cues for toe and body alignment, giant steps Lower Extremity Exercises SLS Details bilateral Water Level Chest Level Reps/Duration 4x30 opposite hand to heel in back of buttocks Body Position Standing Water Level Waist Level Reps/Duration 10 each side hip cw/ccw Water Level Chest Level Reps/Duration 10 bilateral Comments cues to keep leg straight Step ups Body Position Standing Water Level Chest Level Equipment 8 Reps/Duration forward and sideways; step over boxes also both directions HS curls, Knee extension Details at wall with handhold Body Position Standing Water Level Waist Level Equipment Small Noodle Reps/Duration 15 bilat Comments manual assist LEs (L>R) hip flex/ext, ab/ad Details encouraging no UE support Body Position Standing Water Level Waist Level Reps/Duration 10 bilat ea Comments cues for increased effort Upper Extremity Exercises horiz ab/ad, lateral ab/ad, flex/ext Body Position Standing Water Level Chest Level Reps/Duration 10 ea Comments verbal cuing for increased intensity Balance seated on white noodle Details horse position Body Position Sitting Water Level Chest Level Reps/Duration 2 min [place] Activities Other Activities modified front and back crawl using noodle under arms; assisted with kicking PT-OP-T Assessment and Plan Start: 11/05/18 18:49 Freq: Status: Active Protocol: Document 06/08/19 13:45 MT (Rec: 06/08/19 16:20 MT [email or web address]) Physical Therapy Assessment Goals Gait Deviation Impairment poor foot clearance and stability on LLE Short Term Goal (STG) Pt will be able to demonstrate foot clearance over two consecutive 6 inch obstacles, 1 foot apart with alternating steps w/o use of UE or AD. STG Duration achieved Rework Machine Operator Goal (LTG) Pt will be able to demonstrate eccentric control of RLE while weight bearing on LLE during gait. 05/05-significant improvement LTG Duration 07/05/19 DGI Impairment dec balance with dynmaic activity Rework Machine Operator Goal (LTG) Pt will be able to score at least a to demonstrate safe dynamic gait and low fall risk. 05/05-06/30 LTG Duration 07/05/19 gait Short Term Goal (STG) Pt will be able to amb with SPC safely STG Duration goal met Prison Goal (LTG) Pt will be able to amb with DAFO and limited cane usage for balance with overall good B step through and foot clearance. LTG Duration achieved Assessment Summary Assessment Pt was able to demonstrate improved balance on the shuttle balance with WBOS. She continue to needs cueing for extending her hand and arms during gait and balance activities. Pt in her control and coordination with ambulation and more challenging gait activties without use of her cane. Pt is highly challenged with SLS activities especially on L LE. Physical Therapy Plan Frequency and Duration Frequency of Treatment 2x/Week Duration of Treatment 2 months Plan of Care Start Date 05/05/19 Plan of Care End Date 07/05/19 Next Visit Focus/Plan Next Note Type Treatment Note Next Visit Plan Progress HEP, progress to NBOS , Work on dynamic balance activities with head turns, turning circles, step overs and around; continue to work on SLS, and step up/downs,
--- NOTE | 2019-06-15 14:14 | PT-OP ANOTE ---
Pt's dad thought they had missed appt and had called to apologize. Called after assumed no show d/t not hearing VM yet and left message.
--- NOTE | 2019-06-19 13:37 | PT.OTN ---
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) Epilepsy, unspecified, intractable, without status epilepticus (06/08/19) Hemiplegia, unspecified affecting left nondominant side (06/08/19) Other reduced mobility (06/08/19) Physical Therapy Treatment Note PT-OP-A Visit Information Start: 11/05/18 18:49 Freq: Status: Active Protocol: Document 06/08/19 13:45 MT (Rec: 06/08/19 16:20 MT [email or web address]) Out-Patient Physical Therapy Visit Information Visit Information Visit Type Treatment Note Visit Start Time 13:45 Visit Stop Time 14:24 Total Visit Minutes 39 Visit Number 39 Number of TESTING DIRECTOR Visits 0 PT-OP-B Current Condition Start: 11/05/18 18:49 Freq: Status: Active Protocol: Document 11/06/18 13:45 [facility] (Rec: 11/06/18 14:32 [facility] [id number]) Current Condition History of Current Condition Onset Date 09/18/18 Current 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 She had a R ant temporal lobe resection in 10/19. Pt could walk without AD prior to surgery and was indep with ADLs. Pt has had weakness on L side since she was an so she has worn DAFO since then. At this time the dynamic aspect is stabilized. Pt returned home from inpatient rehab 10/31. Mom helps pt bath with bath chair. Mom helps some w/L side dressing but she is able to do indep also. Pt has selective mutism. Treatment Goals Patient/Caregiver Goals Be able to ride her bike. Be able to get around a lot more. PT-OP-C Subjective Start: 11/05/18 18:49 Freq: Status: Active Protocol: Document 06/19/19 13:36 LJ (Rec: 06/19/19 13:37 LJ [id number]) OP-PT Subjective Patient Comments Patient Comments No Show PT-OP-D Balance Start: 11/05/18 18:51 Freq: Status: Active Protocol: Document 11/06/18 13:45 LR (Rec: 11/06/18 18:04 [facility] [email or web address]) Balance Tests Ventura Balance Test Ventura Balance Test Score 20 [place] Impairment Rating 60 to 79% Impaired (Score 12- 22) PT-OP-E Functional Tests Start: 11/05/18 18:51 Freq: Status: Active Protocol: Document 05/05/19 16:03 [facility] (Rec: 05/05/19 17:11 [facility] [id number]) Functional Tests Dynamic Gait Index (DGI) Score 12 PT-OP-G Mobility & Gait Start: 11/05/18 18:51 Freq: Status: Active Protocol: Document 11/06/18 13:45 [facility] (Rec: 11/06/18 14:32 [facility] [id number]) OP Mobility Evaluation Bed Mobility Supine to and from Sit Pt required assist w/LLE for bed mobility to L side of bed. OP Gait Assessment Comments Gait Comments Amb w/NBQC in R hand with dec stance time on LLE and dec step length of RLE & clearance . PT-OP-M Strength Start: 11/05/18 18:51 Freq: Status: Active Protocol: Document 11/06/18 13:45 [facility] (Rec: 11/06/18 14:32 [facility] [id number]) Hip Strength Hip Manual Muscle Testing Right Flexion (L2) 4 Good External Rotation 4 Good Internal Rotation 4 Good Left Flexion (L2) 1 Trace Extension (S1) 2- Poor- Abduction 1 Trace Knee Strength Knee Manual Muscle Testing Right Flexion (S2) 4 Good Extension (L3) 4 Good Left Flexion (S2) 1 Trace Extension (L3) 1 Trace Ankle/Foot Strength Ankle and Foot Manual Muscle Testing Right Dorsiflexion (L4) 5 Normal Plantarflexion (S1) 5 Normal Comments tested seated Left Dorsiflexion (L4) 0 Zero PT-OP-Q Treatments Start: 11/05/18 18:49 Freq: Status: Active Protocol: Document 06/08/19 13:45 MT (Rec: 06/08/19 16:20 MT [email or web address]) Gym Equipment Shuttle Balance red clips Details while hitting balloon Comments fwd/back; side/side Gait Training Gait Activity cones Description gait drills with cones Device Used none Level of Assistance CGA Surface firm Comments weave through cones, stop at each cone, turn around each cone hurdles Description hurdles fwd/back/sideways Level of Assistance CGA/Cholo Surface firm Comments hurdles one foot apart step ups/downs Description forward/sideways Device Used no device Level of Assistance CGA-Cholo Surface 5 inch step Distance/Duration 15 Neuro Re-Education Treatment Balance Activities SLS Details SLS Surface firm Reps/Duration total of 1 min each leg Comments challenging for pt especially on L side balance board Details rock forward/back and side/ side Surface rocker board Reps/Duration 10 weight shifts each direction Comments w/ head turns Standing balance with LUE movements Details toe taps on step Reps/Duration 15 each side NBOS Details feet together stance Surface blue foam Comments w/ head turns PT-OP-S Aquatic Treatment Start: 11/17/18 15:12 Freq: Status: Active Protocol: Document 05/22/19 11:00 LJ (Rec: 05/22/19 16:34 LJ [id number]) Aquatics Treatment Pool Entry/Exit Pool Entry/Exit Method Stairs Assistance Standby Assistance Comments no cues needed Water Walking box maze Water Level Chest Level Level of Assistance Standby Assistance,Contact Guard Assistance,Verbal Cues Comments weaving in/out of boxes + stepping up/down hopping Water Level Chest Level Level of Assistance Standby Assistance Comments uni and bi; hh on wall; hop over weight forward w/arms abducted Water Level Chest Level Walking Equipment swim paddle Level of Assistance Contact Guard Assistance Comments manual cueing for hand position [place] March Water Level Chest Level Level of Assistance Contact Guard Assistance, Minimal Assistance Comments opposite hand to delgado Marching Water Level Chest Level Level of Assistance Standby Assistance,Contact Guard Assistance Comments touching opposite knee Sideways Water Level Chest Level Comments cues for toe and body alignment, giant steps Lower Extremity Exercises SLS Details bilateral Water Level Chest Level Reps/Duration 4x30 opposite hand to heel in back of buttocks Body Position Standing Water Level Waist Level Reps/Duration 10 each side hip cw/ccw Water Level Chest Level Reps/Duration 10 bilateral Comments cues to keep leg straight Step ups Body Position Standing Water Level Chest Level Equipment 8 Reps/Duration forward and sideways; step over boxes also both directions HS curls, Knee extension Details at wall with handhold Body Position Standing Water Level Waist Level Equipment Small Noodle Reps/Duration 15 bilat Comments manual assist LEs (L>R) hip flex/ext, ab/ad Details encouraging no UE support Body Position Standing Water Level Waist Level Reps/Duration 10 bilat ea Comments cues for increased effort Upper Extremity Exercises horiz ab/ad, lateral ab/ad, flex/ext Body Position Standing Water Level Chest Level Reps/Duration 10 ea Comments verbal cuing for increased intensity Balance seated on white noodle Details horse position Body Position Sitting Water Level Chest Level Reps/Duration 2 min [place] Activities Other Activities modified front and back crawl using noodle under arms; assisted with kicking PT-OP-T Assessment and Plan Start: 11/05/18 18:49 Freq: Status: Active Protocol: Document 06/08/19 13:45 MT (Rec: 06/08/19 16:20 MT [email or web address]) Physical Therapy Assessment Goals Gait Deviation Impairment poor foot clearance and stability on LLE Short Term Goal (STG) Pt will be able to demonstrate foot clearance over two consecutive 6 inch obstacles, 1 foot apart with alternating steps w/o use of UE or AD. STG Duration achieved Half-Way Goal (LTG) Pt will be able to demonstrate eccentric control of RLE while weight bearing on LLE during gait. 05/05-significant improvement LTG Duration 07/05/19 DGI Impairment dec balance with dynmaic activity Half-Way Goal (LTG) Pt will be able to score at least a to demonstrate safe dynamic gait and low fall risk. 05/05-06/30 LTG Duration 07/05/19 gait Short Term Goal (STG) Pt will be able to amb with SPC safely STG Duration goal met Geothermal Powerplant Mechanic Goal (LTG) Pt will be able to amb with DAFO and limited cane usage for balance with overall good B step through and foot clearance. LTG Duration achieved Assessment Summary Assessment Pt was able to demonstrate improved balance on the shuttle balance with WBOS. She continue to needs cueing for extending her hand and arms during gait and balance activities. Pt in her control and coordination with ambulation and more challenging gait activties without use of her cane. Pt is highly challenged with SLS activities especially on L LE. Physical Therapy Plan Frequency and Duration Frequency of Treatment 2x/Week Duration of Treatment 2 months Plan of Care Start Date 05/05/19 Plan of Care End Date 07/05/19 Next Visit Focus/Plan Next Note Type Treatment Note Next Visit Plan Progress HEP, progress to NBOS , Work on dynamic balance activities with head turns, turning circles, step overs and around; continue to work on SLS, and step up/downs,
--- NOTE | 2019-06-22 14:00 | PT-OP ANOTE ---
Pt has had seizure meds recently adjusted and has been having difficulty with adjustment with this. Mom reports s/s of kidney stones which has been discussed with MD, resulting in the adjustment of these meds. Mom informed of need to call re: cancelling appts if pt unable to attend appt and option to hold on PT for short time if needed in order for pt to adjust to meds.
--- NOTE | 2019-06-26 16:20 | PT.OTN ---
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) Epilepsy, unspecified, intractable, without status epilepticus (06/26/19) Hemiplegia, unspecified affecting left nondominant side (06/26/19) Other reduced mobility (06/26/19) Physical Therapy Treatment Note PT-OP-A Visit Information Start: 11/05/18 18:49 Freq: Status: Active Protocol: Document 06/26/19 10:15 LJ (Rec: 06/26/19 16:20 [id number]) Out-Patient Physical Therapy Visit Information Visit Information Visit Type Aquatic Treatment Note Visit Start Time 10:15 Visit Stop Time 11:00 Total Visit Minutes 45 Visit Number 40 Number of FORMULATOR Visits 1 PT-OP-B Current Condition Start: 11/05/18 18:49 Freq: Status: Active Protocol: Document 11/06/18 13:45 [facility] (Rec: 11/06/18 14:32 [facility] [id number]) Current Condition History of Current Condition Onset Date 09/18/18 Current 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 She had a R ant temporal lobe resection in 10/19. Pt could walk without AD prior to surgery and was indep with ADLs. Pt has had weakness on L side since she was an so she has worn DAFO since then. At this time the dynamic aspect is stabilized. Pt returned home from inpatient rehab 10/31. Mom helps pt bath with bath chair. Mom helps some w/L side dressing but she is able to do indep also. Pt has selective mutism. Treatment Goals Patient/Caregiver Goals Be able to ride her bike. Be able to get around a lot more. PT-OP-C Subjective Start: 11/05/18 18:49 Freq: Status: Active Protocol: Document 06/26/19 10:15 LJ (Rec: 06/26/19 16:20 [id number]) OP-PT Subjective Patient Comments Patient Comments Pt states the water is cold and she doesn't really want to get in but she is wiling PT-OP-D Balance Start: 11/05/18 18:51 Freq: Status: Active Protocol: Document 11/06/18 13:45 [facility] (Rec: 11/06/18 18:04 [facility] [id number]) Balance Tests [place] Balance Test [place] Balance Test Score 20 [place] Impairment Rating 60 to 79% Impaired (Score 12- 22) PT-OP-E Functional Tests Start: 11/05/18 18:51 Freq: Status: Active Protocol: Document 05/05/19 16:03 [facility] (Rec: 05/05/19 17:11 [facility] [id number]) Functional Tests Dynamic Gait Index (DGI) Score 12 PT-OP-G Mobility & Gait Start: 11/05/18 18:51 Freq: Status: Active Protocol: Document 11/06/18 13:45 [facility] (Rec: 11/06/18 14:32 [facility] [id number]) OP Mobility Evaluation Bed Mobility Supine to and from Sit Pt required assist w/LLE for bed mobility to L side of bed. OP Gait Assessment Comments Gait Comments Amb w/NBQC in R hand with dec stance time on LLE and dec step length of RLE & clearance . PT-OP-M Strength Start: 11/05/18 18:51 Freq: Status: Active Protocol: Document 11/06/18 13:45 [facility] (Rec: 11/06/18 14:32 [facility] [id number]) Hip Strength Hip Manual Muscle Testing Right Flexion (L2) 4 Good External Rotation 4 Good Internal Rotation 4 Good Left Flexion (L2) 1 Trace Extension (S1) 2- Poor- Abduction 1 Trace Knee Strength Knee Manual Muscle Testing Right Flexion (S2) 4 Good Extension (L3) 4 Good Left Flexion (S2) 1 Trace Extension (L3) 1 Trace Ankle/Foot Strength Ankle and Foot Manual Muscle Testing Right Dorsiflexion (L4) 5 Normal Plantarflexion (S1) 5 Normal Comments tested seated Left Dorsiflexion (L4) 0 Zero PT-OP-Q Treatments Start: 11/05/18 18:49 Freq: Status: Active Protocol: Document 06/08/19 13:45 [facility] (Rec: 06/08/19 16:20 [facility] [id number]) Gym Equipment Shuttle Balance red clips Details while hitting balloon Comments fwd/back; side/side Gait Training Gait Activity cones Description gait drills with cones Device Used none Level of Assistance CGA Surface firm Comments weave through cones, stop at each cone, turn around each cone hurdles Description hurdles fwd/back/sideways Level of Assistance CGA/Cholo Surface firm Comments hurdles one foot apart step ups/downs Description forward/sideways Device Used no device Level of Assistance CGA-Cholo Surface 5 inch step Distance/Duration 15 Neuro Re-Education Treatment Balance Activities SLS Details SLS Surface firm Reps/Duration total of 1 min each leg Comments challenging for pt especially on L side balance board Details rock forward/back and side/ side Surface rocker board Reps/Duration 10 weight shifts each direction Comments w/ head turns Standing balance with LUE movements Details toe taps on step Reps/Duration 15 each side NBOS Details feet together stance Surface blue foam Comments w/ head turns PT-OP-S Aquatic Treatment Start: 11/17/18 15:12 Freq: Status: Active Protocol: Document 06/26/19 10:15 LJ (Rec: 06/26/19 16:20 [facility] [id number]) Aquatics Treatment Pool Entry/Exit Pool Entry/Exit Method Stairs Assistance Standby Assistance Comments cues for LUE use Water Walking box maze Water Level Chest Level Level of Assistance Standby Assistance,Contact Guard Assistance,Verbal Cues Comments weaving in/out of boxes + stepping up/down forward w/arms abducted Water Level Chest Level Level of Assistance Contact Guard Assistance Comments manual cueing for hand position [place] March Water Level Chest Level Level of Assistance Standby Assistance Comments opposite hand to knee Monster Walk Water Level Chest Level Level of Assistance Standby Assistance Comments pt cued to use UEs for support Sideways Water Level Chest Level Comments cues for toe and body alignment, giant steps Backwards Water Level Chest Level Level of Assistance Standby Assistance Forwards Water Level Chest Level Level of Assistance Standby Assistance Lower Extremity Exercises Step ups Body Position Standing Water Level Chest Level Equipment 8 Reps/Duration forward and sideways; step over boxes also both directions Upper Extremity Exercises horiz ab/ad, lateral ab/ad, flex/ext Body Position Standing Water Level Chest Level Reps/Duration 10 ea Comments verbal cuing for increased intensity and opening left hand Spinal Exercises trunk rotation Body Position Standing Water Level Chest Level Equipment stretch cords-single Reps/Duration 2x12 bilat Comments pt performed well [place] Activities [place] Activities Bicycle,Running Swim Strokes Flutter Laps/Duration 2 min Comments wet vest Other hydrobike Body Position Sitting Water Level Chest Level Reps/Duration 10 min Comments 4 minutes of 15'15' intervals PT-OP-T Assessment and Plan Start: 11/05/18 18:49 Freq: Status: Active Protocol: Document 06/26/19 10:15 [facility] (Rec: 06/26/19 16:20 [facility] [id number]) Physical Therapy Assessment Rehab Potential Rehabilitation Potential Good Evaluation Complexity Number of Personal Factors/Comorbidities 3 or More Number of Body Systems Impaired 4 or More Clinical Presentation at Evaluation Evolving Impairments Impairments Activity Tolerance,Balance, Coordination,Functional Activities,Functional Mobility ,Gait,Posture,ROM,Strength, Transfers Goals Gait Deviation Impairment poor foot clearance and stability on LLE Short Term Goal (STG) Pt will be able to demonstrate foot clearance over two consecutive 6 inch obstacles, 1 foot apart with alternating steps w/o use of UE or AD. STG Duration achieved Penitentiary Goal (LTG) Pt will be able to demonstrate eccentric control of RLE while weight bearing on LLE during gait. 05/05-significant improvement LTG Duration 07/05/19 DGI Impairment dec balance with dynmaic activity Penitentiary Goal (LTG) Pt will be able to score at least a to demonstrate safe dynamic gait and low fall risk. 05/05-06/30 LTG Duration 07/05/19 gait Short Term Goal (STG) Pt will be able to amb with SPC safely STG Duration goal met Penitentiary Goal (LTG) Pt will be able to amb with DAFO and limited cane usage for balance with overall good B step through and foot clearance. LTG Duration achieved Assessment Summary Assessment Pt improving with gait and balance in pool. Able to better control her trunk and keep herself upright. Progressing with modified front crawl stroke with cueing and manual assist for reaching forward with UEs. Flutter kick control and consistance improving. Physical Therapy Plan Frequency and Duration Frequency of Treatment 2x/Week Duration of Treatment 2 months Plan of Care Start Date 05/05/19 Plan of Care End Date 07/05/19 Therapeutic Interventions Therapeutic Interventions Aquatic Therapy,Balance Training,Coordination Training ,Gait Training,Home Exercise Program,Manual Therapy, Neuromuscular Re-education, Patient/Caregiver Education, Self-Care/Home Management,Soft Tissue Mobilization,Taping, Therapeutic Activities, Therapeutic Exercises Modalities Cold Pack/Ice Massage,Electric Stimulation,Hot Packs Next Visit Focus/Plan Next Note Type Treatment Note Next Visit Plan Progress intensity of exercises to include running in shallow water and perform interval training in deep water. Continue with hydrobike . Work on better system for keeping feet in stirrups. Progress SLS to longer time.
--- NOTE | 2019-06-29 18:19 | PT.OTN ---
Current Diagnoses Selective mutism (06/29/19) Epilepsy, unspecified, intractable, without status epilepticus (06/29/19) Hemiplegia, unspecified affecting left nondominant side (06/29/19) Other reduced mobility (06/29/19) Physical Therapy Treatment Note PT-OP-A Visit Information Start: 11/05/18 18:49 Freq: Status: Active Protocol: Document 06/29/19 13:54 [facility] (Rec: 06/29/19 18:18 [facility] [id number]) Out-Patient Physical Therapy Visit Information Visit Information Visit Type Progress Note Visit Start Time 13:55 Visit Stop Time 14:30 Total Visit Minutes 35 Visit Number 41 Number of ROUGH RIB GRADER Visits 0 PT-OP-B Current Condition Start: 11/05/18 18:49 Freq: Status: Active Protocol: Document 11/06/18 13:45 [facility] (Rec: 11/06/18 14:32 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 She had a R ant temporal lobe resection in 10/19. Pt could walk without AD prior to surgery and was indep with ADLs. Pt has had weakness on L side since she was an infant so she has worn DAFO since then. At this time the dynamic aspect is stabilized. Pt returned home from inpatient rehab 10/31. Mom helps pt bath with bath chair. Mom helps some w/L side dressing but she is able to do indep also. Pt has selective mutism. Treatment Goals Patient/Caregiver Goals Be able to ride her bike. Be able to get around a lot more. PT-OP-C Subjective Start: 11/05/18 18:49 Freq: Status: Active Protocol: Document 06/29/19 13:54 [facility] (Rec: 06/29/19 18:18 [facility] [id number]) OP-PT Subjective Patient Comments Patient Comments Pt reports her meds make her less sleepy PT-OP-D Balance Start: 11/05/18 18:51 Freq: Status: Active Protocol: Document 11/06/18 13:45 [facility] (Rec: 11/06/18 18:04 [facility] [id number]) Balance Tests [place] Balance Test [place] Balance Test Score 20 [place] Impairment Rating 60 to 79% Impaired (Score 12- 22) PT-OP-E Functional Tests Start: 11/05/18 18:51 Freq: Status: Active Protocol: Document 06/29/19 13:54 [facility] (Rec: 06/29/19 18:18 [facility] [id number]) Functional Tests Dynamic Gait Index (DGI) Score 17 Functional Gait Assessment Score 17 PT-OP-G Mobility & Gait Start: 11/05/18 18:51 Freq: Status: Active Protocol: Document 11/06/18 13:45 [facility] (Rec: 11/06/18 14:32 [facility] [id number]) OP Mobility Evaluation Bed Mobility Supine to and from Sit Pt required assist w/LLE for bed mobility to L side of bed. OP Gait Assessment Comments Gait Comments Amb w/NBQC in R hand with dec stance time on LLE and dec step length of RLE & clearance . PT-OP-M Strength Start: 11/05/18 18:51 Freq: Status: Active Protocol: Document 11/06/18 13:45 [facility] (Rec: 11/06/18 14:32 [facility] [id number]) Hip Strength Hip Manual Muscle Testing Right Flexion (L2) 4 Good External Rotation 4 Good Internal Rotation 4 Good Left Flexion (L2) 1 Trace Extension (S1) 2- Poor- Abduction 1 Trace Knee Strength Knee Manual Muscle Testing Right Flexion (S2) 4 Good Extension (L3) 4 Good Left Flexion (S2) 1 Trace Extension (L3) 1 Trace Ankle/Foot Strength Ankle and Foot Manual Muscle Testing Right Dorsiflexion (L4) 5 Normal Plantarflexion (S1) 5 Normal Comments tested seated Left Dorsiflexion (L4) 0 Zero PT-OP-Q Treatments Start: 11/05/18 18:49 Freq: Status: Active Protocol: Document 06/29/19 13:54 [facility] (Rec: 06/29/19 18:18 [facility] [id number]) Gym Equipment Shuttle Balance red clips Details while hitting balloon Comments fwd & side: WBOS & NBOS fwd:staggered stance B Therapeutic Ball seated Exercise Details DF w/palacios bag and march to hand to throw Ball Size/Color 65 cmq Body Position seated Reps/Duration 15 B Therapeutic Exercises Standing Exercises side step Side bilateral Reps/Minutes 10ftx2 ea marches Standing Exercise Name fwd marching Reps/Minutes 10ftx4 Step ups Standing Exercise Name side steps Equipment Used 5in Reps/Minutes 10 B PT-OP-S Aquatic Treatment Start: 11/17/18 15:12 Freq: Status: Active Protocol: Document 06/26/19 10:15 LJ (Rec: 06/26/19 16:20 LJ [id number]) Aquatics Treatment Pool Entry/Exit Pool Entry/Exit Method Stairs Assistance Standby Assistance Comments cues for LUE use Water Walking box maze Water Level Chest Level Level of Assistance Standby Assistance,Contact Guard Assistance,Verbal Cues Comments weaving in/out of boxes + stepping up/down forward w/arms abducted Water Level Chest Level Level of Assistance Contact Guard Assistance Comments manual cueing for hand position [place] March Water Level Chest Level Level of Assistance Standby Assistance Comments opposite hand to knee Monster Walk Water Level Chest Level Level of Assistance Standby Assistance Comments pt cued to use UEs for support Sideways Water Level Chest Level Comments cues for toe and body alignment, giant steps Backwards Water Level Chest Level Level of Assistance Standby Assistance Forwards Water Level Chest Level Level of Assistance Standby Assistance Lower Extremity Exercises Step ups Body Position Standing Water Level Chest Level Equipment 8 Reps/Duration forward and sideways; step over boxes also both directions Upper Extremity Exercises horiz ab/ad, lateral ab/ad, flex/ext Body Position Standing Water Level Chest Level Reps/Duration 10 ea Comments verbal cuing for increased intensity and opening left hand Spinal Exercises trunk rotation Body Position Standing Water Level Chest Level Equipment stretch cords-single Reps/Duration 2x12 bilat Comments pt performed well [place] Activities [place] Activities Bicycle,Running Swim Strokes Flutter Laps/Duration 2 min Comments wet vest Other hydrobike Body Position Sitting Water Level Chest Level Reps/Duration 10 min Comments 4 minutes of 15'15' intervals PT-OP-T Assessment and Plan Start: 11/05/18 18:49 Freq: Status: Active Protocol: Document 06/29/19 13:54 [facility] (Rec: 06/29/19 18:18 [facility] [id number]) Physical Therapy Assessment Goals FGA Short Term Goal (STG) Pt will be able to walk 4 steps heel to toe without assist. STG Duration 07/30/19 Penitentiary Goal (LTG) Pt will score >23/30 in order to show dec risk of falls. LTG Duration 09/28/19 Gait Deviation Impairment poor foot clearance and stability on LLE Short Term Goal (STG) Pt will be able to demonstrate foot clearance over two consecutive 6 inch obstacles, 1 foot apart with alternating steps w/o use of UE or AD. STG Duration achieved Penitentiary Goal (LTG) Pt will be able to demonstrate eccentric control of RLE while weight bearing on LLE during gait. 05/05-significant improvement 06/29-improved LTG Duration 08/30/18 DGI Impairment dec balance with dynmaic activity Penitentiary Goal (LTG) Pt will be able to score at least a to demonstrate safe dynamic gait and low fall risk. 05/05-06/30 06/29- LTG Duration 08/30/19 gait Short Term Goal (STG) Pt will be able to amb with SPC safely STG Duration goal met Penitentiary Goal (LTG) Pt will be able to amb with DAFO and limited cane usage for balance with overall good B step through and foot clearance. LTG Duration achieved Assessment Summary Assessment Pt cont to improve iwth balance as shown with DGI score. She does not deviate from her typical gait patterns or speed iwth head turns, or EC amb. She had difficulty with ability to achieve tandem walking and was unable to step into the position. She cont to progress with her functional mobility and would benefit from cont PT in order to cont to progress her gait and balance in order to inc independence and dec fall risk . Physical Therapy Plan Frequency and Duration Frequency of Treatment 2x/Week Duration of Treatment 3 months Plan of Care Start Date 06/29/19 Plan of Care End Date 09/28/19 Therapeutic Interventions Therapeutic Interventions Aquatic Therapy,Balance Training,Coordination Training ,Gait Training,Home Exercise Program,Manual Therapy, Neuromuscular Re-education, Patient/Caregiver Education, Self-Care/Home Management,Soft Tissue Mobilization,Taping, Therapeutic Activities, Therapeutic Exercises Modalities Cold Pack/Ice Massage,Electric Stimulation,Hot Packs Next Visit Focus/Plan Next Note Type Treatment Note Next Visit Plan tandem walking, stairs
--- NOTE | 2019-07-03 16:15 | PT.OTN ---
Current Diagnoses Selective mutism (07/03/19) Epilepsy, unspecified, intractable, without status epilepticus (07/03/19) Hemiplegia, unspecified affecting left nondominant side (07/03/19) Other reduced mobility (07/03/19) Physical Therapy Treatment Note PT-OP-A Visit Information Start: 11/05/18 18:49 Freq: Status: Active Protocol: Document 07/03/19 10:17 SUNITHA (Rec: 07/03/19 16:14 [id number]) Out-Patient Physical Therapy Visit Information Visit Information Visit Type Aquatic Treatment Note Visit Start Time 10:17 Visit Stop Time 11:00 Total Visit Minutes 43 Visit Number 42 Number of INTERNAL CONTROL CONSULTANT Visits 1 PT-OP-B Current Condition Start: 11/05/18 18:49 Freq: Status: Active Protocol: Document 11/06/18 13:45 [facility] (Rec: 11/06/18 14:32 [facility] [id number]) Current Condition History of Current Condition Onset Date 09/18/18 Current 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 She had a R ant temporal lobe resection in 10/19. Pt could walk without AD prior to surgery and was indep with ADLs. Pt has had weakness on L side since she was an so she has worn DAFO since then. At this time the dynamic aspect is stabilized. Pt returned home from inpatient rehab 10/31. Mom helps pt bath with bath chair. Mom helps some w/L side dressing but she is able to do indep also. Pt has selective mutism. Treatment Goals Patient/Caregiver Goals Be able to ride her bike. Be able to get around a lot more. PT-OP-C Subjective Start: 11/05/18 18:49 Freq: Status: Active Protocol: Document 07/03/19 10:17 SUNITHA (Rec: 07/03/19 16:14 [id number]) OP-PT Subjective Patient Comments Patient Comments Pt feels good about her progress and assessment from las PT session in the clinic. PT-OP-D Balance Start: 11/05/18 18:51 Freq: Status: Active Protocol: Document 11/06/18 13:45 [facility] (Rec: 11/06/18 18:04 [facility] [id number]) Balance Tests Ventura Balance Test Ventura Balance Test Score 20 [place] Impairment Rating 60 to 79% Impaired (Score 12- 22) PT-OP-E Functional Tests Start: 11/05/18 18:51 Freq: Status: Active Protocol: Document 06/29/19 13:54 [facility] (Rec: 06/29/19 18:18 [facility] [id number]) Functional Tests Dynamic Gait Index (DGI) Score 17 Functional Gait Assessment Score 17 PT-OP-G Mobility & Gait Start: 11/05/18 18:51 Freq: Status: Active Protocol: Document 11/06/18 13:45 [facility] (Rec: 11/06/18 14:32 [facility] [id number]) OP Mobility Evaluation Bed Mobility Supine to and from Sit Pt required assist w/LLE for bed mobility to L side of bed. OP Gait Assessment Comments Gait Comments Amb w/NBQC in R hand with dec stance time on LLE and dec step length of RLE & clearance . PT-OP-M Strength Start: 11/05/18 18:51 Freq: Status: Active Protocol: Document 11/06/18 13:45 [facility] (Rec: 11/06/18 14:32 [facility] [id number]) Hip Strength Hip Manual Muscle Testing Right Flexion (L2) 4 Good External Rotation 4 Good Internal Rotation 4 Good Left Flexion (L2) 1 Trace Extension (S1) 2- Poor- Abduction 1 Trace Knee Strength Knee Manual Muscle Testing Right Flexion (S2) 4 Good Extension (L3) 4 Good Left Flexion (S2) 1 Trace Extension (L3) 1 Trace Ankle/Foot Strength Ankle and Foot Manual Muscle Testing Right Dorsiflexion (L4) 5 Normal Plantarflexion (S1) 5 Normal Comments tested seated Left Dorsiflexion (L4) 0 Zero PT-OP-Q Treatments Start: 11/05/18 18:49 Freq: Status: Active Protocol: Document 06/29/19 13:54 [facility] (Rec: 06/29/19 18:18 [facility] [id number]) Gym Equipment Shuttle Balance red clips Details while hitting balloon Comments fwd & side: WBOS & NBOS fwd:staggered stance B Therapeutic Ball seated Exercise Details DF w/palacios bag and march to hand to throw Ball Size/Color 65 cmq Body Position seated Reps/Duration 15 B Therapeutic Exercises Standing Exercises side step Side bilateral Reps/Minutes 10ftx2 ea marches Standing Exercise Name fwd marching Reps/Minutes 10ftx4 Step ups Standing Exercise Name side steps Equipment Used 5in Reps/Minutes 10 B PT-OP-S Aquatic Treatment Start: 11/17/18 15:12 Freq: Status: Active Protocol: Document 07/03/19 10:17 LJ (Rec: 07/03/19 16:14 [facility]J [id number]) Aquatics Treatment Pool Entry/Exit Pool Entry/Exit Method Stairs Assistance Standby Assistance Comments cues for LUE use Water Walking box maze Water Level Chest Level Walking Equipment Ankle Weight- 2.5# Level of Assistance Standby Assistance,Contact Guard Assistance,Verbal Cues Comments weaving in/out of boxes + stepping up/down quick directional change Water Level Chest Level Walking Equipment Ankle Weight- 2.5# Level of Assistance Standby Assistance,Verbal Cues forward w/arms abducted Water Level Chest Level Walking Equipment Ankle Weight- 2.5# Level of Assistance Contact Guard Assistance Comments manual cueing for hand position [place] March Water Level Chest Level Walking Equipment Ankle Weight- 2.5# Level of Assistance Standby Assistance Comments opposite hand to knee Monster Walk Water Level Chest Level Level of Assistance Standby Assistance Comments pt cued to use UEs for support Sideways Water Level Chest Level Walking Equipment Ankle Weight- 2.5# Comments cues for toe and body alignment, giant steps Forwards Water Level Chest Level Walking Equipment Ankle Weight- 2.5# Level of Assistance Standby Assistance Lower Extremity Exercises SLS Details bilateral Water Level Chest Level Equipment Ankle Weight- 2.5# Reps/Duration 4x30 hip cw/ccw Water Level Chest Level Equipment Ankle Weight- 2.5# Reps/Duration 10 bilateral Comments cues to keep leg straight hip flex/ext, ab/ad Details encouraging no UE support Body Position Standing Water Level Waist Level Equipment Ankle Weight- 2.5# Reps/Duration 10 bilat ea Comments cues for increased effort [place] Activities [place] Activities Bicycle,Running Equipment lg belt Duration 15 min Comments pt needing cues for LUE use Swim Strokes Flutter Laps/Duration 2 min Comments Lg blue float Other hydrobike Body Position Sitting Water Level Chest Level Reps/Duration 10 min Comments 4 minutes of 15'15' intervals PT-OP-T Assessment and Plan Start: 11/05/18 18:49 Freq: Status: Active Protocol: Document 07/03/19 10:17 SUNITHA (Rec: 07/03/19 16:14 SUNITH[facility] [id number]) Physical Therapy Assessment Rehab Potential Rehabilitation Potential Good Evaluation Complexity Number of Personal Factors/Comorbidities 3 or More Number of Body Systems Impaired 4 or More Clinical Presentation at Evaluation Evolving Impairments Impairments Activity Tolerance,Balance, Coordination,Functional Activities,Functional Mobility ,Gait,Posture,ROM,Strength, Transfers Goals FGA Short Term Goal (STG) Pt will be able to walk 4 steps heel to toe without assist. STG Duration 07/30/19 Desilverizer Goal (LTG) Pt will score >23/30 in order to show dec risk of falls. LTG Duration 09/28/19 Gait Deviation Impairment poor foot clearance and stability on LLE Short Term Goal (STG) Pt will be able to demonstrate foot clearance over two consecutive 6 inch obstacles, 1 foot apart with alternating steps w/o use of UE or AD. STG Duration achieved Desilverizer Goal (LTG) Pt will be able to demonstrate eccentric control of RLE while weight bearing on LLE during gait. 05/05-significant improvement 06/29-improved LTG Duration 08/30/18 DGI Impairment dec balance with dynmaic activity Desilverizer Goal (LTG) Pt will be able to score at least a /24 to demonstrate safe dynamic gait and low fall risk. 05/05-06/30 06/29- LTG Duration 08/30/19 Assessment Summary Assessment Pt improving with balance and coordination particularly with deep water exercises. Beginning modified crawl stroke with floatation belt. Increased effort on hydrobike. Physical Therapy Plan Frequency and Duration Frequency of Treatment 2x/Week Duration of Treatment 3 months Plan of Care Start Date 06/29/19 Plan of Care End Date 09/28/19 Therapeutic Interventions Therapeutic Interventions Aquatic Therapy,Balance Training,Coordination Training ,Gait Training,Home Exercise Program,Manual Therapy, Neuromuscular Re-education, Patient/Caregiver Education, Self-Care/Home Management,Soft Tissue Mobilization,Taping, Therapeutic Activities, Therapeutic Exercises Modalities Cold Pack/Ice Massage,Electric Stimulation,Hot Packs Next Visit Focus/Plan Next Note Type Treatment Note Next Visit Plan tandem walking, stairs In pool focus on UE use with exercises and continue to progress core stabilization exercises.
--- NOTE | 2019-07-06 14:28 | PT.OTN ---
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) Epilepsy, unspecified, intractable, without status epilepticus (07/06/19) Hemiplegia, unspecified affecting left nondominant side (07/06/19) Other reduced mobility (07/06/19) Physical Therapy Treatment Note PT-OP-A Visit Information Start: 11/05/18 18:49 Freq: Status: Active Protocol: Document 07/06/19 13:50 [facility] (Rec: 07/06/19 14:28 [facility] [id number]) Out-Patient Physical Therapy Visit Information Visit Information Visit Type Treatment Note Visit Start Time 13:46 Visit Stop Time 14:25 Total Visit Minutes 39 Visit Number 43 Number of PRIVATE DUTY LPN Visits 0 PT-OP-B Current Condition Start: 11/05/18 18:49 Freq: Status: Active Protocol: Document 11/06/18 13:45 [facility] (Rec: 11/06/18 14:32 [facility] [id number]) Current Condition History of Current Condition Onset Date 09/18/18 Current 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 She had a R ant temporal lobe resection in 10/19. Pt could walk without AD prior to surgery and was indep with ADLs. Pt has had weakness on L side since she was an so she has worn DAFO since then. At this time the dynamic aspect is stabilized. Pt returned home from inpatient rehab 10/31. Mom helps pt bath with bath chair. Mom helps some w/L side dressing but she is able to do indep also. Pt has selective mutism. Treatment Goals Patient/Caregiver Goals Be able to ride her bike. Be able to get around a lot more. PT-OP-C Subjective Start: 11/05/18 18:49 Freq: Status: Active Protocol: Document 07/06/19 13:50 [facility] (Rec: 07/06/19 14:28 [facility] [id number]) OP-PT Subjective Patient Comments Patient Comments Pt reports she has been doing her OT exercises. PT-OP-D Balance Start: 11/05/18 18:51 Freq: Status: Active Protocol: Document 11/06/18 13:45 [facility] (Rec: 11/06/18 18:04 [facility] [id number]) Balance Tests [place] Balance Test [place] Balance Test Score 20 [place] Impairment Rating 60 to 79% Impaired (Score 12- 22) PT-OP-E Functional Tests Start: 11/05/18 18:51 Freq: Status: Active Protocol: Document 06/29/19 13:54 [facility] (Rec: 06/29/19 18:18 [facility] [id number]) Functional Tests Dynamic Gait Index (DGI) Score 17 Functional Gait Assessment Score 17 PT-OP-G Mobility & Gait Start: 11/05/18 18:51 Freq: Status: Active Protocol: Document 11/06/18 13:45 [facility] (Rec: 11/06/18 14:32 [facility] [id number]) OP Mobility Evaluation Bed Mobility Supine to and from Sit Pt required assist w/LLE for bed mobility to L side of bed. OP Gait Assessment Comments Gait Comments Amb w/NBQC in R hand with dec stance time on LLE and dec step length of RLE & clearance . PT-OP-M Strength Start: 11/05/18 18:51 Freq: Status: Active Protocol: Document 11/06/18 13:45 [facility] (Rec: 11/06/18 14:32 [facility] [id number]) Hip Strength Hip Manual Muscle Testing Right Flexion (L2) 4 Good External Rotation 4 Good Internal Rotation 4 Good Left Flexion (L2) 1 Trace Extension (S1) 2- Poor- Abduction 1 Trace Knee Strength Knee Manual Muscle Testing Right Flexion (S2) 4 Good Extension (L3) 4 Good Left Flexion (S2) 1 Trace Extension (L3) 1 Trace Ankle/Foot Strength Ankle and Foot Manual Muscle Testing Right Dorsiflexion (L4) 5 Normal Plantarflexion (S1) 5 Normal Comments tested seated Left Dorsiflexion (L4) 0 Zero PT-OP-Q Treatments Start: 11/05/18 18:49 Freq: Status: Active Protocol: Document 07/06/19 13:50 [facility] (Rec: 07/06/19 14:28 [facility] [id number]) Cardio Equipment Recumbent Stepper (Sci-Fit) Duration (Minutes) 5 Resistance 3 Seat Position 7 Gym Equipment Shuttle Balance red clips Details while hitting balloon Comments fwd & side: WBOS & NBOS fwd staggered stance B w/o hitting balloon Gait Training Gait Activity stairs Description up/down 26 in steps reciprocally Comments 1x w/LUE on rail then 2nd time reciprocally up no rail then down with R hand on rail Neuro Re-Education Treatment Balance Activities tandem Details walking Reps/Duration [id number] Comments along line and attemping tandem hurdles Details fwd & side step over hurdles Comments 4x fwd & 2x side B with 5 hurdles then also with only 2 spread about 5 ft apt PT-OP-S Aquatic Treatment Start: 11/17/18 15:12 Freq: Status: Active Protocol: Document 07/03/19 10:17 SUNITHA (Rec: 07/03/19 16:14 LJ [id number]) Aquatics Treatment Pool Entry/Exit Pool Entry/Exit Method Stairs Assistance Standby Assistance Comments cues for LUE use Water Walking box maze Water Level Chest Level Walking Equipment Ankle Weight- 2.5# Level of Assistance Standby Assistance,Contact Guard Assistance,Verbal Cues Comments weaving in/out of boxes + stepping up/down quick directional change Water Level Chest Level Walking Equipment Ankle Weight- 2.5# Level of Assistance Standby Assistance,Verbal Cues forward w/arms abducted Water Level Chest Level Walking Equipment Ankle Weight- 2.5# Level of Assistance Contact Guard Assistance Comments manual cueing for hand position [place] September Water Level Chest Level Walking Equipment Ankle Weight- 2.5# Level of Assistance Standby Assistance Comments opposite hand to knee Monster Walk Water Level Chest Level Level of Assistance Standby Assistance Comments pt cued to use UEs for support Sideways Water Level Chest Level Walking Equipment Ankle Weight- 2.5# Comments cues for toe and body alignment, giant steps Forwards Water Level Chest Level Walking Equipment Ankle Weight- 2.5# Level of Assistance Standby Assistance Lower Extremity Exercises SLS Details bilateral Water Level Chest Level Equipment Ankle Weight- 2.5# Reps/Duration 4x30 hip cw/ccw Water Level Chest Level Equipment Ankle Weight- 2.5# Reps/Duration 10 bilateral Comments cues to keep leg straight hip flex/ext, ab/ad Details encouraging no UE support Body Position Standing Water Level Waist Level Equipment Ankle Weight- 2.5# Reps/Duration 10 bilat ea Comments cues for increased effort [place] Activities [place] Activities Bicycle,Running Equipment lg belt Duration 15 min Comments pt needing cues for LUE use Swim Strokes Flutter Laps/Duration 2 min Comments Lg blue float Other hydrobike Body Position Sitting Water Level Chest Level Reps/Duration 10 min Comments 4 minutes of 15'15' intervals PT-OP-T Assessment and Plan Start: 11/05/18 18:49 Freq: Status: Active Protocol: Document 07/06/19 13:50 [facility] (Rec: 07/06/19 14:28 [facility] [id number]) Physical Therapy Assessment Goals FGA Short Term Goal (STG) Pt will be able to walk 4 steps heel to toe without assist. STG Duration 07/30/19 [facility]ci Goal (LTG) Pt will score >23/30 in order to show dec risk of falls. LTG Duration 09/28/19 Gait Deviation Impairment poor foot clearance and stability on LLE Short Term Goal (STG) Pt will be able to demonstrate foot clearance over two consecutive 6 inch obstacles, 1 foot apart with alternating steps w/o use of UE or AD. STG Duration achieved [facility] Goal (LTG) Pt will be able to demonstrate eccentric control of RLE while weight bearing on LLE during gait. 05/05-significant improvement 06/29-improved LTG Duration 08/30/18 DGI Impairment dec balance with dynmaic activity [facility]ci Goal (LTG) Pt will be able to score at least a /24 to demonstrate safe dynamic gait and low fall risk. 05/05-06/30 06/29- LTG Duration 08/30/19 Assessment Summary Assessment Pt did well with stairs but had difficulty when using LUE for support as she had difficulty with it sequencing up/down with her. She did well with [id number] activities and enjoyed tandem walking when playing with the fish game at one end. Physical Therapy Plan Frequency and Duration Frequency of Treatment 2x/Week Duration of Treatment 3 months Plan of Care Start Date 06/29/19 Plan of Care End Date 09/28/19 Next Visit Focus/Plan Next Note Type Treatment Note Next Visit Plan tandem walking, stairs & obstacles with gait
--- NOTE | 2019-07-30 16:11 | PT-OP ANOTE ---
Pt's mom was called and left a message re: no show to PT appointment today. Reminded of no show policy and of next appointment.
--- NOTE | 2019-08-06 16:47 | PT.OTN ---
Current Diagnoses Selective mutism (08/06/19) Epilepsy, unspecified, intractable, without status epilepticus (08/06/19) Hemiplegia, unspecified affecting left nondominant side (08/06/19) Other reduced mobility (08/06/19) Physical Therapy Treatment Note PT-OP-A Visit Information Start: 11/05/18 18:49 Freq: Status: Active Protocol: Document 08/06/19 16:13 [facility] (Rec: 08/06/19 16:47 [facility] [id number]) Out-Patient Physical Therapy Visit Information Visit Information Visit Type Treatment Note Visit Start Time 16:05 Visit Stop Time 16:43 Total Visit Minutes 38 Visit Number 44 Number of COLOR STRIPPER Visits 0 PT-OP-B Current Condition Start: 11/05/18 18:49 Freq: Status: Active Protocol: Document 11/06/18 13:45 [facility] (Rec: 11/06/18 14:32 [facility] [id number]) Current Condition History of Current Condition Onset Date 09/18/18 Current 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 She had a R ant temporal lobe resection in 10/19. Pt could walk without AD prior to surgery and was indep with ADLs. Pt has had weakness on L side since she was an so she has worn DAFO since then. At this time the dynamic aspect is stabilized. Pt returned home from inpatient rehab 10/31. Mom helps pt bath with bath chair. Mom helps some w/L side dressing but she is able to do indep also. Pt has selective mutism. Treatment Goals Patient/Caregiver Goals Be able to ride her bike. Be able to get around a lot more. PT-OP-C Subjective Start: 11/05/18 18:49 Freq: Status: Active Protocol: Document 08/06/19 16:13 [facility] (Rec: 08/06/19 16:47 [facility] [id number]) OP-PT Subjective Patient Comments Patient Comments Pt reports she has done her exercises but could not remember which ones PT-OP-D Balance Start: 11/05/18 18:51 Freq: Status: Active Protocol: Document 11/06/18 13:45 [facility] (Rec: 11/06/18 18:04 [facility] [id number]) Balance Tests Ventura Balance Test Ventura Balance Test Score 20 [place] Impairment Rating 60 to 79% Impaired (Score 12- 22) PT-OP-E Functional Tests Start: 11/05/18 18:51 Freq: Status: Active Protocol: Document 06/29/19 13:54 [facility] (Rec: 06/29/19 18:18 [facility] [id number]) Functional Tests Dynamic Gait Index (DGI) Score 17 Functional Gait Assessment Score 17 PT-OP-G Mobility & Gait Start: 11/05/18 18:51 Freq: Status: Active Protocol: Document 11/06/18 13:45 [facility] (Rec: 11/06/18 14:32 [facility] [id number]) OP Mobility Evaluation Bed Mobility Supine to and from Sit Pt required assist w/LLE for bed mobility to L side of bed. OP Gait Assessment Comments Gait Comments Amb w/NBQC in R hand with dec stance time on LLE and dec step length of RLE & clearance . PT-OP-M Strength Start: 11/05/18 18:51 Freq: Status: Active Protocol: Document 11/06/18 13:45 [facility] (Rec: 11/06/18 14:32 [facility] [id number]) Hip Strength Hip Manual Muscle Testing Right Flexion (L2) 4 Good External Rotation 4 Good Internal Rotation 4 Good Left Flexion (L2) 1 Trace Extension (S1) 2- Poor- Abduction 1 Trace Knee Strength Knee Manual Muscle Testing Right Flexion (S2) 4 Good Extension (L3) 4 Good Left Flexion (S2) 1 Trace Extension (L3) 1 Trace Ankle/Foot Strength Ankle and Foot Manual Muscle Testing Right Dorsiflexion (L4) 5 Normal Plantarflexion (S1) 5 Normal Comments tested seated Left Dorsiflexion (L4) 0 Zero PT-OP-Q Treatments Start: 11/05/18 18:49 Freq: Status: Active Protocol: Document 08/06/19 16:13 [facility] (Rec: 08/06/19 16:47 [facility] [id number]) Cardio Equipment Recumbent Elliptical ([employer]) Duration (Minutes) 7 Resistance 5 Seat Position 5 Gym Equipment Shuttle Recovery Unilateral Squats Details unilateral squats Resistance 37# Shuttle Recovery Platform Stable Reps/Time 2x10 reps, cueing to avoid knee valgus Bilateral Squats Details B squats Resistance 100# Shuttle Recovery Platform Unstable Reps/Time 2x15 cued to WB equally into B LE Shuttle Balance red clips Details while hitting balloon Comments fwd & side: WBOS & NBOS fwd staggered stance B Therapeutic Exercises Standing Exercises squat Standing Exercise Name at rail Side bilateral Reps/Minutes 10 marches Standing Exercise Name fwd marching then backwards walking Side bilateral Reps/Minutes 10ftx2 ea Neuro Re-Education Treatment Balance Activities tandem Details walking Reps/Duration 4x10ft Bosu Details step ups B Reps/Duration 10 ea hurdles Details fwd & side step over hurdles Comments 2x fwd step to; 4x fwd step through, 2x side step B Lateral stepping in //bars Surface level Reps/Duration 2x10ft B Comments no rails, cueing to lift LLE during side step PT-OP-S Aquatic Treatment Start: 11/17/18 15:12 Freq: Status: Active Protocol: Document 07/03/19 10:17 [facility] (Rec: 07/03/19 16:14 [facility] [id number]) Aquatics Treatment Pool Entry/Exit Pool Entry/Exit Method Stairs Assistance Standby Assistance Comments cues for LUE use Water Walking box maze Water Level Chest Level Walking Equipment Ankle Weight- 2.5# Level of Assistance Standby Assistance,Contact Guard Assistance,Verbal Cues Comments weaving in/out of boxes + stepping up/down quick directional change Water Level Chest Level Walking Equipment Ankle Weight- 2.5# Level of Assistance Standby Assistance,Verbal Cues forward w/arms abducted Water Level Chest Level Walking Equipment Ankle Weight- 2.5# Level of Assistance Contact Guard Assistance Comments manual cueing for hand position [place] September Water Level Chest Level Walking Equipment Ankle Weight- 2.5# Level of Assistance Standby Assistance Comments opposite hand to knee Monster Walk Water Level Chest Level Level of Assistance Standby Assistance Comments pt cued to use UEs for support Sideways Water Level Chest Level Walking Equipment Ankle Weight- 2.5# Comments cues for toe and body alignment, giant steps Forwards Water Level Chest Level Walking Equipment Ankle Weight- 2.5# Level of Assistance Standby Assistance Lower Extremity Exercises SLS Details bilateral Water Level Chest Level Equipment Ankle Weight- 2.5# Reps/Duration 4x30 hip cw/ccw Water Level Chest Level Equipment Ankle Weight- 2.5# Reps/Duration 10 bilateral Comments cues to keep leg straight hip flex/ext, ab/ad Details encouraging no UE support Body Position Standing Water Level Waist Level Equipment Ankle Weight- 2.5# Reps/Duration 10 bilat ea Comments cues for increased effort [place] Activities [place] Activities Bicycle,Running Equipment lg belt Duration 15 min Comments pt needing cues for LUE use Swim Strokes Flutter Laps/Duration 2 min Comments Lg blue float Other hydrobike Body Position Sitting Water Level Chest Level Reps/Duration 10 min Comments 4 minutes of 15'15' intervals PT-OP-T Assessment and Plan Start: 11/05/18 18:49 Freq: Status: Active Protocol: Document 08/06/19 16:13 [facility] (Rec: 08/06/19 16:47 [facility] [id number]) Physical Therapy Assessment Goals FGA Short Term Goal (STG) Pt will be able to walk 4 steps heel to toe without assist. STG Duration 07/30/19 Fpc Goal (LTG) Pt will score >23/30 in order to show dec risk of falls. LTG Duration 09/28/19 Gait Deviation Impairment poor foot clearance and stability on LLE Short Term Goal (STG) Pt will be able to demonstrate foot clearance over two consecutive 6 inch obstacles, 1 foot apart with alternating steps w/o use of UE or AD. STG Duration achieved Sil[employer] Washing Machine Operator Goal (LTG) Pt will be able to demonstrate eccentric control of RLE while weight bearing on LLE during gait. 05/05-significant improvement 06/29-improved LTG Duration 08/30/18 DGI Impairment dec balance with dynmaic activity Fpc Goal (LTG) Pt will be able to score at least a 20/24 to demonstrate safe dynamic gait and low fall risk. 05/05-06/30 06/29- LTG Duration 08/30/19 Assessment Summary Assessment Pt did well with balance exercises today. She was cahllenged by step ups on bosu but did well with hurdles with less rail use. Inc resistance since last time doing shuttle Physical Therapy Plan Frequency and Duration Frequency of Treatment 2x/Week Duration of Treatment 3 months Plan of Care Start Date 06/29/19 Plan of Care End Date 09/28/19 Next Visit Focus/Plan Next Note Type Treatment Note Next Visit Plan tandem walking, stairs & obstacles with gait
--- NOTE | 2019-08-07 13:46 | PT.OTN ---
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 (Rec: 08/06/19 16:47 [facility] [id number]) Out-Patient Physical Therapy Visit Information Visit Information Visit Type Treatment Note Visit Start Time 16:05 Visit Stop Time 16:43 Total Visit Minutes 38 Visit Number 44 Number of TERMINAL BLOCK ASSEMBLER Visits 0 PT-OP-B Current Condition Start: 11/05/18 18:49 Freq: Status: Active Protocol: Document 11/06/18 13:45 [facility] (Rec: 11/06/18 14:32 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 She had a R ant temporal lobe resection in 10/19. Pt could walk without AD prior to surgery and was indep with ADLs. Pt has had weakness on L side since she was an so she has worn DAFO since then. At this time the dynamic aspect is stabilized. Pt returned home from inpatient rehab 10/31. Mom helps pt bath with bath chair. Mom helps some w/L side dressing but she is able to do indep also. Pt has selective mutism. Treatment Goals Patient/Caregiver Goals Be able to ride her bike. Be able to get around a lot more. PT-OP-C Subjective Start: 11/05/18 18:49 Freq: Status: Active Protocol: Document 08/07/19 13:46 [facility] (Rec: 08/07/19 13:46 [facility] [id number]) OP-PT Subjective Patient Comments Patient Comments no show PT-OP-D Balance Start: 11/05/18 18:51 Freq: Status: Active Protocol: Document 11/06/18 13:45 [facility] (Rec: 11/06/18 18:04 [facility] [id number]) Balance Tests Ventura Balance Test Ventura Balance Test Score 20 [place] Impairment Rating 60 to 79% Impaired (Score 12- 22) PT-OP-E Functional Tests Start: 11/05/18 18:51 Freq: Status: Active Protocol: Document 06/29/19 13:54 [facility] (Rec: 06/29/19 18:18 [facility] [id number]) Functional Tests Dynamic Gait Index (DGI) Score 17 Functional Gait Assessment Score 17 PT-OP-G Mobility & Gait Start: 11/05/18 18:51 Freq: Status: Active Protocol: Document 11/06/18 13:45 [facility] (Rec: 11/06/18 14:32 [facility] [id number]) OP Mobility Evaluation Bed Mobility Supine to and from Sit Pt required assist w/LLE for bed mobility to L side of bed. OP Gait Assessment Comments Gait Comments Amb w/NBQC in R hand with dec stance time on LLE and dec step length of RLE & clearance . PT-OP-M Strength Start: 11/05/18 18:51 Freq: Status: Active Protocol: Document 11/06/18 13:45 [facility] (Rec: 11/06/18 14:32 [facility] [id number]) Hip Strength Hip Manual Muscle Testing Right Flexion (L2) 4 Good External Rotation 4 Good Internal Rotation 4 Good Left Flexion (L2) 1 Trace Extension (S1) 2- Poor- Abduction 1 Trace Knee Strength Knee Manual Muscle Testing Right Flexion (S2) 4 Good Extension (L3) 4 Good Left Flexion (S2) 1 Trace Extension (L3) 1 Trace Ankle/Foot Strength Ankle and Foot Manual Muscle Testing Right Dorsiflexion (L4) 5 Normal Plantarflexion (S1) 5 Normal Comments tested seated Left Dorsiflexion (L4) 0 Zero PT-OP-Q Treatments Start: 11/05/18 18:49 Freq: Status: Active Protocol: Document 08/06/19 16:13 [facility] (Rec: 08/06/19 16:47 [facility] [id number]) Cardio Equipment Recumbent Elliptical ([email or web address]) Duration (Minutes) 7 Resistance 5 Seat Position 5 Gym Equipment Shuttle Recovery Unilateral Squats Details unilateral squats Resistance 37# Shuttle Recovery Platform Stable Reps/Time 2x10 reps, cueing to avoid knee valgus Bilateral Squats Details B squats Resistance 100# Shuttle Recovery Platform Unstable Reps/Time 2x15 cued to WB equally into B LE Shuttle Balance red clips Details while hitting balloon Comments fwd & side: WBOS & NBOS fwd staggered stance B Therapeutic Exercises Standing Exercises squat Standing Exercise Name at rail Side bilateral Reps/Minutes 10 march Standing Exercise Name fwd marching then backwards walking Side bilateral Reps/Minutes 10ftx2 ea Neuro Re-Education Treatment Balance Activities tandem Details walking Reps/Duration 4x10ft Bosu Details step ups B Reps/Duration 10 ea hurdles Details fwd & side step over hurdles Comments 2x fwd step to; 4x fwd step through, 2x side step B Lateral stepping in //bars Surface level Reps/Duration 2x10ft B Comments no rails, cueing to lift LLE during side step PT-OP-S Aquatic Treatment Start: 11/17/18 15:12 Freq: Status: Active Protocol: Document 07/03/19 10:17 [facility] (Rec: 07/03/19 16:14 [facility] [id number]) Aquatics Treatment Pool Entry/Exit Pool Entry/Exit Method Stairs Assistance Standby Assistance Comments cues for LUE use Water Walking box maze Water Level Chest Level Walking Equipment Ankle Weight- 2.5# Level of Assistance Standby Assistance,Contact Guard Assistance,Verbal Cues Comments weaving in/out of boxes + stepping up/down quick directional change Water Level Chest Level Walking Equipment Ankle Weight- 2.5# Level of Assistance Standby Assistance,Verbal Cues forward w/arms abducted Water Level Chest Level Walking Equipment Ankle Weight- 2.5# Level of Assistance Contact Guard Assistance Comments manual cueing for hand position [place] September Water Level Chest Level Walking Equipment Ankle Weight- 2.5# Level of Assistance Standby Assistance Comments opposite hand to knee Monster Walk Water Level Chest Level Level of Assistance Standby Assistance Comments pt cued to use UEs for support Sideways Water Level Chest Level Walking Equipment Ankle Weight- 2.5# Comments cues for toe and body alignment, giant steps Forwards Water Level Chest Level Walking Equipment Ankle Weight- 2.5# Level of Assistance Standby Assistance Lower Extremity Exercises SLS Details bilateral Water Level Chest Level Equipment Ankle Weight- 2.5# Reps/Duration 4x30 hip cw/ccw Water Level Chest Level Equipment Ankle Weight- 2.5# Reps/Duration 10 bilateral Comments cues to keep leg straight hip flex/ext, ab/ad Details encouraging no UE support Body Position Standing Water Level Waist Level Equipment Ankle Weight- 2.5# Reps/Duration 10 bilat ea Comments cues for increased effort [place] Activities [place] Activities Bicycle,Running Equipment lg belt Duration 15 min Comments pt needing cues for LUE use Swim Strokes Flutter Laps/Duration 2 min Comments Lg blue float Other hydrobike Body Position Sitting Water Level Chest Level Reps/Duration 10 min Comments 4 minutes of 15'15' intervals PT-OP-T Assessment and Plan Start: 11/05/18 18:49 Freq: Status: Active Protocol: Document 08/06/19 16:13 [facility] (Rec: 08/06/19 16:47 [facility] [id number]) Physical Therapy Assessment Goals FGA Short Term Goal (STG) Pt will be able to walk 4 steps heel to toe without assist. STG Duration 07/30/19 Snf Goal (LTG) Pt will score >23/30 in order to show dec risk of falls. LTG Duration 09/28/19 Gait Deviation Impairment poor foot clearance and stability on LLE Short Term Goal (STG) Pt will be able to demonstrate foot clearance over two consecutive 6 inch obstacles, 1 foot apart with alternating steps w/o use of UE or AD. STG Duration achieved Snf Goal (LTG) Pt will be able to demonstrate eccentric control of RLE while weight bearing on LLE during gait. 05/05-significant improvement 06/29-improved LTG Duration 08/30/18 DGI Impairment dec balance with dynmaic activity Nut Cracker Goal (LTG) Pt will be able to score at least a 20/24 to demonstrate safe dynamic gait and low fall risk. 05/05-06/30 06/29- LTG Duration 08/30/19 Assessment Summary Assessment Pt did well with balance exercises today. She was cahllenged by step ups on bosu but did well with hurdles with less rail use. Inc resistance since last time doing shuttle Physical Therapy Plan Frequency and Duration Frequency of Treatment 2x/Week Duration of Treatment 3 months Plan of Care Start Date 06/29/19 Plan of Care End Date 09/28/19 Next Visit Focus/Plan Next Note Type Treatment Note Next Visit Plan tandem walking, stairs & obstacles with gait
--- NOTE | 2019-08-12 17:50 | PT.OTN ---
Current Diagnoses Selective mutism (08/12/19) Epilepsy, unspecified, intractable, without status epilepticus (08/12/19) Hemiplegia, unspecified affecting left nondominant side (08/12/19) Other reduced mobility (08/12/19) Physical Therapy Treatment Note PT-OP-A Visit Information Start: 11/05/18 18:49 Freq: Status: Active Protocol: Document 08/12/19 13:07 [facility] (Rec: 08/12/19 17:50 [facility] [id number]) Out-Patient Physical Therapy Visit Information Visit Information Visit Type Treatment Note Visit Start Time 14:30 Visit Stop Time 15:09 Total Visit Minutes 39 Visit Number 45 Number of OPHTHALMIC MEDICAL TECHNOLOGIST Visits 0 PT-OP-B Current Condition Start: 11/05/18 18:49 Freq: Status: Active Protocol: Document 11/06/18 13:45 [facility] (Rec: 11/06/18 14:32 [facility] [id number]) Current Condition History of Current Condition Onset Date 09/18/18 Current 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 She had a R ant temporal lobe resection in 10/19. Pt could walk without AD prior to surgery and was indep with ADLs. Pt has had weakness on L side since she was an so she has worn DAFO since then. At this time the dynamic aspect is stabilized. Pt returned home from inpatient rehab 10/31. Mom helps pt bath with bath chair. Mom helps some w/L side dressing but she is able to do indep also. Pt has selective mutism. Treatment Goals Patient/Caregiver Goals Be able to ride her bike. Be able to get around a lot more. PT-OP-C Subjective Start: 11/05/18 18:49 Freq: Status: Active Protocol: Document 08/12/19 13:07 [facility] (Rec: 08/12/19 17:50 [facility] [id number]) OP-PT Subjective Patient Comments Patient Comments Pt Pt reports she was doing her exercises at home but doesn't remember which ones. reports walking with her mom on the sidewalk PT-OP-D Balance Start: 11/05/18 18:51 Freq: Status: Active Protocol: Document 11/06/18 13:45 [facility] (Rec: 11/06/18 18:04 [facility] [id number]) Balance Tests Ventura Balance Test Ventura Balance Test Score 20 [place] Impairment Rating 60 to 79% Impaired (Score 12- 22) PT-OP-E Functional Tests Start: 11/05/18 18:51 Freq: Status: Active Protocol: Document 06/29/19 13:54 [facility] (Rec: 06/29/19 18:18 [facility] [id number]) Functional Tests Dynamic Gait Index (DGI) Score 17 Functional Gait Assessment Score 17 PT-OP-G Mobility & Gait Start: 11/05/18 18:51 Freq: Status: Active Protocol: Document 11/06/18 13:45 [facility] (Rec: 11/06/18 14:32 [facility] [id number]) OP Mobility Evaluation Bed Mobility Supine to and from Sit Pt required assist w/LLE for bed mobility to L side of bed. OP Gait Assessment Comments Gait Comments Amb w/NBQC in R hand with dec stance time on LLE and dec step length of RLE & clearance . PT-OP-M Strength Start: 11/05/18 18:51 Freq: Status: Active Protocol: Document 11/06/18 13:45 [facility] (Rec: 11/06/18 14:32 [facility] [id number]) Hip Strength Hip Manual Muscle Testing Right Flexion (L2) 4 Good External Rotation 4 Good Internal Rotation 4 Good Left Flexion (L2) 1 Trace Extension (S1) 2- Poor- Abduction 1 Trace Knee Strength Knee Manual Muscle Testing Right Flexion (S2) 4 Good Extension (L3) 4 Good Left Flexion (S2) 1 Trace Extension (L3) 1 Trace Ankle/Foot Strength Ankle and Foot Manual Muscle Testing Right Dorsiflexion (L4) 5 Normal Plantarflexion (S1) 5 Normal Comments tested seated Left Dorsiflexion (L4) 0 Zero PT-OP-Q Treatments Start: 11/05/18 18:49 Freq: Status: Active Protocol: Document 08/12/19 13:07 [facility] (Rec: 08/12/19 17:50 [facility] [id number]) Cardio Equipment Recumbent Elliptical (Biodex) Duration (Minutes) 6 Resistance 6 Seat Position 5 Gym Equipment Shuttle Balance red clips Details while hitting balloon Comments fwd & side: WBOS & NBOS fwd staggered stance B Neuro Re-Education Treatment Balance Activities SLS Details stomp and catch w/ just stomp with balloon Comments 3 sec countdown Bosu Comments 1. step ups B x10 2. standing balance 3. toe taps x10 B Lateral stepping in //bars Surface level Reps/Duration 2x20ft B Comments no rails, cueing to lift LLE during side step Coordination Activities alt UE/LE Comments seated then standing x12ea PT-OP-S Aquatic Treatment Start: 11/17/18 15:12 Freq: Status: Active Protocol: Document 07/03/19 10:17 [facility] (Rec: 07/03/19 16:14 [facility] [id number]) Aquatics Treatment Pool Entry/Exit Pool Entry/Exit Method Stairs Assistance Standby Assistance Comments cues for LUE use Water Walking box maze Water Level Chest Level Walking Equipment Ankle Weight- 2.5# Level of Assistance Standby Assistance,Contact Guard Assistance,Verbal Cues Comments weaving in/out of boxes + stepping up/down quick directional change Water Level Chest Level Walking Equipment Ankle Weight- 2.5# Level of Assistance Standby Assistance,Verbal Cues forward w/arms abducted Water Level Chest Level Walking Equipment Ankle Weight- 2.5# Level of Assistance Contact Guard Assistance Comments manual cueing for hand position [place] Water Level Chest Level Walking Equipment Ankle Weight- 2.5# Level of Assistance Standby Assistance Comments opposite hand to knee Monster Walk Water Level Chest Level Level of Assistance Standby Assistance Comments pt cued to use UEs for support Sideways Water Level Chest Level Walking Equipment Ankle Weight- 2.5# Comments cues for toe and body alignment, giant steps Forwards Water Level Chest Level Walking Equipment Ankle Weight- 2.5# Level of Assistance Standby Assistance Lower Extremity Exercises SLS Details bilateral Water Level Chest Level Equipment Ankle Weight- 2.5# Reps/Duration 4x30 hip cw/ccw Water Level Chest Level Equipment Ankle Weight- 2.5# Reps/Duration 10 bilateral Comments cues to keep leg straight hip flex/ext, ab/ad Details encouraging no UE support Body Position Standing Water Level Waist Level Equipment Ankle Weight- 2.5# Reps/Duration 10 bilat ea Comments cues for increased effort [place] Activities [place] Activities Bicycle,Running Equipment lg belt Duration 15 min Comments pt needing cues for LUE use Swim Strokes Flutter Laps/Duration 2 min Comments Lg blue float Other hydrobike Body Position Sitting Water Level Chest Level Reps/Duration 10 min Comments 4 minutes of 15'15' intervals PT-OP-T Assessment and Plan Start: 11/05/18 18:49 Freq: Status: Active Protocol: Document 08/12/19 13:07 [facility] (Rec: 08/12/19 17:50 [facility] [id number]) Physical Therapy Assessment Goals FGA Short Term Goal (STG) Pt will be able to walk 4 steps heel to toe without assist. STG Duration 07/30/19 Alf Goal (LTG) Pt will score >23/30 in order to show dec risk of falls. LTG Duration 09/28/19 Gait Deviation Impairment poor foot clearance and stability on LLE Short Term Goal (STG) Pt will be able to demonstrate foot clearance over two consecutive 6 inch obstacles, 1 foot apart with alternating steps w/o use of UE or AD. STG Duration achieved Alf Goal (LTG) Pt will be able to demonstrate eccentric control of RLE while weight bearing on LLE during gait. 05/05-significant improvement 06/29-improved LTG Duration 08/30/18 DGI Impairment dec balance with dynmaic activity Investigations Director Goal (LTG) Pt will be able to score at least a 20/24 to demonstrate safe dynamic gait and low fall risk. 05/05-06/30 06/29- LTG Duration 08/30/19 Assessment Summary Assessment Pt is improving with her balaqnce but has difficulty with alt opposing UE and LE movement patterns. Difficulty with SLS activities Physical Therapy Plan Frequency and Duration Frequency of Treatment 2x/Week Duration of Treatment 3 months Plan of Care Start Date 06/29/19 Plan of Care End Date 09/28/19 Next Visit Focus/Plan Next Note Type Treatment Note Next Visit Plan cont to work on unstable balance and stairs & work on gait
--- NOTE | 2019-08-24 15:10 | PT.OTN ---
Current Diagnoses Selective mutism (08/24/19) Epilepsy, unspecified, intractable, without status epilepticus (08/24/19) Hemiplegia, unspecified affecting left nondominant side (08/24/19) Other reduced mobility (08/24/19) Physical Therapy Treatment Note PT-OP-A Visit Information Start: 11/05/18 18:49 Freq: Status: Active Protocol: Document 08/24/19 11:00 [facility] (Rec: 08/24/19 15:10 [facility] [email or web address]) Out-Patient Physical Therapy Visit Information Visit Information Visit Type Aquatic Treatment Note Visit Start Time 11:00 Visit Stop Time 11:45 Total Visit Minutes 45 Visit Number [address]PRE[address] Visits 1 PT-OP-B Current Condition Start: 11/05/18 18:49 Freq: Status: Active Protocol: Document 11/06/18 13:45 [facility] (Rec: 11/06/18 14:32 [facility] [id number]) Current Condition History of Current Condition Onset Date 09/18/18 Current 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 She had a R ant temporal lobe resection in 10/19. Pt could walk without AD prior to surgery and was indep with ADLs. Pt has had weakness on L side since she was an so she has worn DAFO since then. At this time the dynamic aspect is stabilized. Pt returned home from inpatient rehab 10/31. Mom helps pt bath with bath chair. Mom helps some w/L side dressing but she is able to do indep also. Pt has selective mutism. Treatment Goals Patient/Caregiver Goals Be able to ride her bike. Be able to get around a lot more. PT-OP-C Subjective Start: 11/05/18 18:49 Freq: Status: Active Protocol: Document 08/24/19 11:00 [facility] (Rec: 08/24/19 15:10 [facility] [email or web address]) OP-PT Subjective Patient Comments Patient Comments Pt was dropped off by her mother. Appears happy to get into the pool. Requested to ride the bike again. PT-OP-D Balance Start: 11/05/18 18:51 Freq: Status: Active Protocol: Document 11/06/18 13:45 [facility] (Rec: 11/06/18 18:04 [facility] [id number]) Balance Tests Ventura Balance Test Ventura Balance Test Score 20 [place] Impairment Rating 60 to 79% Impaired (Score 12- 22) PT-OP-E Functional Tests Start: 11/05/18 18:51 Freq: Status: Active Protocol: Document 06/29/19 13:54 [facility] (Rec: 06/29/19 18:18 [facility] [id number]) Functional Tests Dynamic Gait Index (DGI) Score 17 Functional Gait Assessment Score 17 PT-OP-G Mobility & Gait Start: 11/05/18 18:51 Freq: Status: Active Protocol: Document 11/06/18 13:45 [facility] (Rec: 11/06/18 14:32 [facility] [id number]) OP Mobility Evaluation Bed Mobility Supine to and from Sit Pt required assist w/LLE for bed mobility to L side of bed. OP Gait Assessment Comments Gait Comments Amb w/NBQC in R hand with dec stance time on LLE and dec step length of RLE & clearance . PT-OP-M Strength Start: 11/05/18 18:51 Freq: Status: Active Protocol: Document 11/06/18 13:45 [facility] (Rec: 11/06/18 14:32 [facility] [id number]) Hip Strength Hip Manual Muscle Testing Right Flexion (L2) 4 Good External Rotation 4 Good Internal Rotation 4 Good Left Flexion (L2) 1 Trace Extension (S1) 2- Poor- Abduction 1 Trace Knee Strength Knee Manual Muscle Testing Right Flexion (S2) 4 Good Extension (L3) 4 Good Left Flexion (S2) 1 Trace Extension (L3) 1 Trace Ankle/Foot Strength Ankle and Foot Manual Muscle Testing Right Dorsiflexion (L4) 5 Normal Plantarflexion (S1) 5 Normal Comments tested seated Left Dorsiflexion (L4) 0 Zero PT-OP-Q Treatments Start: 11/05/18 18:49 Freq: Status: Active Protocol: Document 08/12/19 13:07 [facility] (Rec: 08/12/19 17:50 [facility] [id number]) Cardio Equipment Recumbent Elliptical (Biodex) Duration (Minutes) 6 Resistance 6 Seat Position 5 Gym Equipment Shuttle Balance red clips Details while hitting balloon Comments fwd & side: WBOS & NBOS fwd staggered stance B Neuro Re-Education Treatment Balance Activities SLS Details stomp and catch w/ just stomp with balloon Comments 3 sec countdown Bosu Comments 1. step ups B x10 2. standing balance 3. toe taps x10 B Lateral stepping in //bars Surface level Reps/Duration 2x20ft B Comments no rails, cueing to lift LLE during side step Coordination Activities alt UE/LE Comments seated then standing x12ea PT-OP-S Aquatic Treatment Start: 11/17/18 15:12 Freq: Status: Active Protocol: Document 08/24/19 11:00 (Rec: 08/24/19 15:10 [email or web address]) Aquatics Treatment Pool Entry/Exit Pool Entry/Exit Method Stairs Assistance Standby Assistance Comments cues for LUE use Water Walking quick directional change Water Level Chest Level Walking Equipment Ankle Weight- 2.5# Level of Assistance Standby Assistance,Verbal Cues [place] March Water Level Chest Level Walking Equipment Ankle Weight- 2.5# Level of Assistance Standby Assistance Comments opposite hand to knee Marching Water Level Chest Level Level of Assistance Standby Assistance,Contact Guard Assistance Comments touching opposite knee Sideways Water Level Chest Level Walking Equipment Ankle Weight- 2.5# Comments cues for toe and body alignment, giant steps Forwards Water Level Chest Level Walking Equipment Ankle Weight- 2.5# Level of Assistance Standby Assistance [place] Activities [place] Activities Bicycle,Running Equipment lg belt, gloves Duration 8 min Swim Strokes Flutter Laps/Duration 8 min Comments Lg blue float Other UEexercises while riding bike Details flex/ext, HABD/HADD, Body Position Sitting Reps/Duration 5 min Comments unilateral thwen bilateral hydrobike Body Position Sitting Water Level Chest Level Reps/Duration 20 min Comments 5 minutes of 15'15' intervals PT-OP-T Assessment and Plan Start: 11/05/18 18:49 Freq: Status: Active Protocol: Document 08/24/19 11:00 (Rec: 08/24/19 15:10 [id number]) Physical Therapy Assessment Goals FGA Short Term Goal (STG) Pt will be able to walk 4 steps heel to toe without assist. STG Duration 07/30/19 Enterprise Integration Developer Goal (LTG) Pt will score >23/30 in order to show dec risk of falls. LTG Duration 09/28/19 Gait Deviation Impairment poor foot clearance and stability on LLE Short Term Goal (STG) Pt will be able to demonstrate foot clearance over two consecutive 6 inch obstacles, 1 foot apart with alternating steps w/o use of UE or AD. STG Duration achieved Enterprise Integration Developer Goal (LTG) Pt will be able to demonstrate eccentric control of RLE while weight bearing on LLE during gait. 05/05-significant improvement 06/29-improved LTG Duration 08/30/18 DGI Impairment dec balance with dynmaic activity Enterprise Integration Developer Goal (LTG) Pt will be able to score at least a to demonstrate safe dynamic gait and low fall risk. 05/05-06/30 06/29- LTG Duration 08/30/19 Assessment Summary Assessment Pt required occasional cueing for opposite UE to LE patterning with marching exercise. Her flutter kick in prone is improving as is her core stabilization during deep water vertical exercise and prone swimming. Her left hand coordination is improving also as evidenced by the UE exercising while riding the hydrobike Physical Therapy Plan Frequency and Duration Frequency of Treatment 2x/Week Duration of Treatment 3 months Plan of Care Start Date 09/28/19 Next Visit Focus/Plan Next Note Type Treatment Note Next Visit Plan continue to work on core strength in prone and vertical . Increase intensity of deep water exercises for cardio workout
--- NOTE | 2019-08-26 19:52 | PT.OTN ---
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) Epilepsy, unspecified, intractable, without status epilepticus (08/26/19) Hemiplegia, unspecified affecting left nondominant side (08/26/19) Other reduced mobility (08/26/19) Physical Therapy Treatment Note PT-OP-A Visit Information Start: 11/05/18 18:49 Freq: Status: Active Protocol: Document 08/26/19 18:43 [facility] (Rec: 08/26/19 19:45 [facility] [id number]) Out-Patient Physical Therapy Visit Information Visit Information Visit Type Treatment Note Visit Start Time 14:30 Visit Stop Time 15:12 Total Visit Minutes 42 Visit Number 47 Number of RAILROAD CAR CLEANER Visits 0 PT-OP-B Current Condition Start: 11/05/18 18:49 Freq: Status: Active Protocol: Document 11/06/18 13:45 [facility] (Rec: 11/06/18 14:32 [facility] [id number]) Current Condition History of Current Condition Onset Date 09/18/18 Current 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 She had a R ant temporal lobe resection in 10/19. Pt could walk without AD prior to surgery and was indep with ADLs. Pt has had weakness on L side since she was an so she has worn DAFO since then. At this time the dynamic aspect is stabilized. Pt returned home from inpatient rehab 10/31. Mom helps pt bath with bath chair. Mom helps some w/L side dressing but she is able to do indep also. Pt has selective mutism. Treatment Goals Patient/Caregiver Goals Be able to ride her bike. Be able to get around a lot more. PT-OP-C Subjective Start: 11/05/18 18:49 Freq: Status: Active Protocol: Document 08/26/19 18:43 [facility] (Rec: 08/26/19 19:45 [facility] [id number]) OP-PT Subjective Patient Comments Patient Comments Pt was dropped off by mother. She states she has been walking to her program. PT-OP-D Balance Start: 11/05/18 18:51 Freq: Status: Active Protocol: Document 11/06/18 13:45 [facility] (Rec: 11/06/18 18:04 [facility] [id number]) Balance Tests Ventura Balance Test Ventura Balance Test Score 20 [place] Impairment Rating 60 to 79% Impaired (Score 12- 22) PT-OP-E Functional Tests Start: 11/05/18 18:51 Freq: Status: Active Protocol: Document 06/29/19 13:54 [facility] (Rec: 06/29/19 18:18 [facility] [id number]) Functional Tests Dynamic Gait Index (DGI) Score 17 Functional Gait Assessment Score 17 PT-OP-G Mobility & Gait Start: 11/05/18 18:51 Freq: Status: Active Protocol: Document 11/06/18 13:45 [facility] (Rec: 11/06/18 14:32 [facility] [id number]) OP Mobility Evaluation Bed Mobility Supine to and from Sit Pt required assist w/LLE for bed mobility to L side of bed. OP Gait Assessment Comments Gait Comments Amb w/NBQC in R hand with dec stance time on LLE and dec step length of RLE & clearance . PT-OP-M Strength Start: 11/05/18 18:51 Freq: Status: Active Protocol: Document 11/06/18 13:45 [facility] (Rec: 11/06/18 14:32 [facility] [id number]) Hip Strength Hip Manual Muscle Testing Right Flexion (L2) 4 Good External Rotation 4 Good Internal Rotation 4 Good Left Flexion (L2) 1 Trace Extension (S1) 2- Poor- Abduction 1 Trace Knee Strength Knee Manual Muscle Testing Right Flexion (S2) 4 Good Extension (L3) 4 Good Left Flexion (S2) 1 Trace Extension (L3) 1 Trace Ankle/Foot Strength Ankle and Foot Manual Muscle Testing Right Dorsiflexion (L4) 5 Normal Plantarflexion (S1) 5 Normal Comments tested seated Left Dorsiflexion (L4) 0 Zero PT-OP-Q Treatments Start: 11/05/18 18:49 Freq: Status: Active Protocol: Document 08/26/19 18:43 [facility] (Rec: 08/26/19 19:45 [facility] [id number]) Cardio Equipment Recumbent Stepper (Sci-Fit) Duration (Minutes) 6 Gym Equipment Shuttle Balance red clips Details while hitting balloon Comments fwd & side: WBOS & NBOS fwd staggered stance B Therapeutic Exercises Standing Exercises side step Side bilateral Reps/Minutes 3 laps Comments contact guard Neuro Re-Education Treatment Balance Activities blue foam Details fish game Comments standing on blue foam while playing game, attempted dynadisc and bosu however too challenging for pt SLS Surface floor Comments 10 sec x 3 each side standing on kiana disc Comments 1. feet together, EO/head turns 2. feet staggered EO/head turns PT-OP-S Aquatic Treatment Start: 11/17/18 15:12 Freq: Status: Active Protocol: Document 08/24/19 11:00 [facility] (Rec: 08/24/19 15:10 [facility] [email or web address]) Aquatics Treatment Pool Entry/Exit Pool Entry/Exit Method Stairs Assistance Standby Assistance Comments cues for LUE use Water Walking quick directional change Water Level Chest Level Walking Equipment Ankle Weight- 2.5# Level of Assistance Standby Assistance,Verbal Cues [place] March Water Level Chest Level Walking Equipment Ankle Weight- 2.5# Level of Assistance Standby Assistance Comments opposite hand to knee Marching Water Level Chest Level Level of Assistance Standby Assistance,Contact Guard Assistance Comments touching opposite knee Sideways Water Level Chest Level Walking Equipment Ankle Weight- 2.5# Comments cues for toe and body alignment, giant steps Forwards Water Level Chest Level Walking Equipment Ankle Weight- 2.5# Level of Assistance Standby Assistance [place] Activities [place] Activities Bicycle,Running Equipment lg belt, gloves Duration 8 min Swim Strokes Flutter Laps/Duration 8 min Comments Lg blue float Other UEexercises while riding bike Details flex/ext, HABD/HADD, Body Position Sitting Reps/Duration 5 min Comments unilateral thwen bilateral hydrobike Body Position Sitting Water Level Chest Level Reps/Duration 20 min Comments 5 minutes of 15'15' intervals PT-OP-T Assessment and Plan Start: 11/05/18 18:49 Freq: Status: Active Protocol: Document 08/26/19 18:43 SP (Rec: 08/26/19 19:45 SP [id number]) Physical Therapy Assessment Goals FGA Short Term Goal (STG) Pt will be able to walk 4 steps heel to toe without assist. STG Duration 07/30/19 Residential Goal (LTG) Pt will score >23/30 in order to show dec risk of falls. LTG Duration 09/28/19 Gait Deviation Impairment poor foot clearance and stability on LLE Short Term Goal (STG) Pt will be able to demonstrate foot clearance over two consecutive 6 inch obstacles, 1 foot apart with alternating steps w/o use of UE or AD. STG Duration achieved Technical Maintenance Specialist Goal (LTG) Pt will be able to demonstrate eccentric control of RLE while weight bearing on LLE during gait. 05/05-significant improvement 06/29-improved LTG Duration 08/30/18 DGI Impairment dec balance with dynmaic activity Technical Maintenance Specialist Goal (LTG) Pt will be able to score at least a to demonstrate safe dynamic gait and low fall risk. 05/05-06/30 06/29- LTG Duration 08/30/19 Assessment Summary Assessment Pt required cueing to weightshift over to LLE during balance activities. Pt demonstrated increased sway while standing on tpads and performing head turns. Pt was unable to stand on [employer] or [place] ball when playing fish game therefore blue foam was used. Pt tolerated shuttle balance activities well and was able to use her UEs and move outside of her DANNA. Physical Therapy Plan Frequency and Duration Frequency of Treatment 2x/Week Duration of Treatment 3 months Plan of Care Start Date 06/29/19 Plan of Care End Date 09/28/19 Next Visit Focus/Plan Next Note Type Treatment Note Next Visit Plan progress to dynamic balance activities
--- NOTE | 2019-09-02 15:01 | PT-OP ANOTE ---
Pt called and message left re: no show and reminded about need to call to cancel if pt unable to attend appt. Informed of next scheduled appt (OT 09/04).
--- NOTE | 2019-09-17 17:42 | PT.OTN ---
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 (Rec: 09/17/19 17:42 [facility] [id number]) Out-Patient Physical Therapy Visit Information Visit Information Visit Type Treatment Note Visit Start Time 16:50 Visit Stop Time 17:30 Total Visit Minutes 40 Visit Number 48 Number of STAFF REPORTER Visits 0 PT-OP-B Current Condition Start: 11/05/18 18:49 Freq: Status: Active Protocol: Document 11/06/18 13:45 [facility] (Rec: 11/06/18 14:32 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 She had a R ant temporal lobe resection in 10/19. Pt could walk without AD prior to surgery and was indep with ADLs. Pt has had weakness on L side since she was an so she has worn DAFO since then. At this time the dynamic aspect is stabilized. Pt returned home from inpatient rehab 10/31. Mom helps pt bath with bath chair. Mom helps some w/L side dressing but she is able to do indep also. Pt has selective mutism. Treatment Goals Patient/Caregiver Goals Be able to ride her bike. Be able to get around a lot more. PT-OP-C Subjective Start: 11/05/18 18:49 Freq: Status: Active Protocol: Document 09/17/19 17:20 [facility] (Rec: 09/17/19 17:42 [facility] [id number]) OP-PT Subjective Patient Comments Patient Comments Pt reports shew alked a lot when she went to [place] PT-OP-D Balance Start: 11/05/18 18:51 Freq: Status: Active Protocol: Document 11/06/18 13:45 [facility] (Rec: 11/06/18 18:04 [facility] [id number]) Balance Tests Ventura Balance Test Ventura Balance Test Score 20 [place] Impairment Rating 60 to 79% Impaired (Score 12- 22) PT-OP-E Functional Tests Start: 11/05/18 18:51 Freq: Status: Active Protocol: Document 06/29/19 13:54 [facility] (Rec: 06/29/19 18:18 [facility] [id number]) Functional Tests Dynamic Gait Index (DGI) Score 17 Functional Gait Assessment Score 17 PT-OP-G Mobility & Gait Start: 11/05/18 18:51 Freq: Status: Active Protocol: Document 11/06/18 13:45 [facility] (Rec: 11/06/18 14:32 [facility] [id number]) OP Mobility Evaluation Bed Mobility Supine to and from Sit Pt required assist w/LLE for bed mobility to L side of bed. OP Gait Assessment Comments Gait Comments Amb w/NBQC in R hand with dec stance time on LLE and dec step length of RLE & clearance . PT-OP-M Strength Start: 11/05/18 18:51 Freq: Status: Active Protocol: Document 11/06/18 13:45 [facility] (Rec: 11/06/18 14:32 [facility] [id number]) Hip Strength Hip Manual Muscle Testing Right Flexion (L2) 4 Good External Rotation 4 Good Internal Rotation 4 Good Left Flexion (L2) 1 Trace Extension (S1) 2- Poor- Abduction 1 Trace Knee Strength Knee Manual Muscle Testing Right Flexion (S2) 4 Good Extension (L3) 4 Good Left Flexion (S2) 1 Trace Extension (L3) 1 Trace Ankle/Foot Strength Ankle and Foot Manual Muscle Testing Right Dorsiflexion (L4) 5 Normal Plantarflexion (S1) 5 Normal Comments tested seated Left Dorsiflexion (L4) 0 Zero PT-OP-Q Treatments Start: 11/05/18 18:49 Freq: Status: Active Protocol: Document 09/17/19 17:20 [facility] (Rec: 09/17/19 17:42 [facility] [id number]) Gym Equipment Shuttle Balance red clips Details while hitting balloon Comments fwd & side: WBOS & NBOS & staggered stance B Therapeutic Ball seated Ball Size/Color 65cm Body Position seated Comments 1.kicking ball B 2. hitting balloon w/BUE w/BLE on dynadiscs Therapeutic Exercises Sitting Exercises DF Side bilateral Equipment Used yellow tband R, L AAROM Reps/Minutes 2x10 knee extension Side bilateral Equipment Used L2 Reps/Minutes 2x10 Standing Exercises resist walk Standing Exercise Name fwd/back Side bilateral Equipment Used yellow tband Reps/Minutes 2x20ft ea side step Side bilateral Equipment Used yellow tband Reps/Minutes 2x20ft B Comments contact guard Neuro Re-Education Treatment Balance Activities tandem Details tandem walking fwd Reps/Duration 2x20ft Bosu Comments 1.steps ups x10 B 2. balancing B 3. lunge x10 B PT-OP-S Aquatic Treatment Start: 11/17/18 15:12 Freq: Status: Active Protocol: Document 08/24/19 11:00 LJ (Rec: 08/24/19 15:10 LJ [id number]) Aquatics Treatment Pool Entry/Exit Pool Entry/Exit Method Stairs Assistance Standby Assistance Comments cues for LUE use Water Walking quick directional change Water Level Chest Level Walking Equipment Ankle Weight- 2.5# Level of Assistance Standby Assistance,Verbal Cues [place] March Water Level Chest Level Walking Equipment Ankle Weight- 2.5# Level of Assistance Standby Assistance Comments opposite hand to knee Marching Water Level Chest Level Level of Assistance Standby Assistance,Contact Guard Assistance Comments touching opposite knee Sideways Water Level Chest Level Walking Equipment Ankle Weight- 2.5# Comments cues for toe and body alignment, giant steps Forwards Water Level Chest Level Walking Equipment Ankle Weight- 2.5# Level of Assistance Standby Assistance [place] Activities [place] Activities Bicycle,Running Equipment lg belt, gloves Duration 8 min Swim Strokes Flutter Laps/Duration 8 min Comments Lg blue float Other UEexercises while riding bike Details flex/ext, HABD/HADD, Body Position Sitting Reps/Duration 5 min Comments unilateral thwen bilateral hydrobike Body Position Sitting Water Level Chest Level Reps/Duration 20 min Comments 5 minutes of 15'15' intervals PT-OP-T Assessment and Plan Start: 11/05/18 18:49 Freq: Status: Active Protocol: Document 09/17/19 17:20 [facility] (Rec: 09/17/19 17:42 [facility] [id number]) Physical Therapy Assessment Goals FGA Short Term Goal (STG) Pt will be able to walk 4 steps heel to toe without assist. STG Duration 07/30/19 [employer] Goal (LTG) Pt will score >23/30 in order to show dec risk of falls. LTG Duration 09/28/19 Gait Deviation Impairment poor foot clearance and stability on LLE Short Term Goal (STG) Pt will be able to demonstrate foot clearance over two consecutive 6 inch obstacles, 1 foot apart with alternating steps w/o use of UE or AD. STG Duration achieved [employer] Goal (LTG) Pt will be able to demonstrate eccentric control of RLE while weight bearing on LLE during gait. 05/05-significant improvement 06/29-improved LTG Duration 08/30/18 DGI Impairment dec balance with dynmaic activity Alf Goal (LTG) Pt will be able to score at least a to demonstrate safe dynamic gait and low fall risk. 05/05-06/30 06/29- LTG Duration 08/30/19 Assessment Summary Assessment Pt did very well withbalance over hurdles, on tball and on balance board today. She cont to be challenged by [employer]. She was fatigued with exercises today. Physical Therapy Plan Frequency and Duration Frequency of Treatment 2x/Week Duration of Treatment 3 months Plan of Care Start Date 06/29/19 Plan of Care End Date 09/28/19 Next Visit Focus/Plan Next Note Type Treatment Note Next Visit Plan progress dynamic balance activities
--- NOTE | 2019-09-23 16:22 | PT-OP ANOTE ---
Pt called re: no show and left message about OT appt Saturday.
--- NOTE | 2019-12-30 11:14 | PT.OPDS ---
Current Diagnoses Selective mutism (09/17/19) Epilepsy, unspecified, intractable, without status epilepticus (09/17/19) Hemiplegia, unspecified affecting left nondominant side (09/17/19) Other reduced mobility (09/17/19) Visit Care Team Role Provider Type Kirstin Parmar DO Attending Provider Non-Staff Primary Care Provider Specialty: [facility] Address: [address] [place] [address], [address], [facility] Email: [email or web address] Visit Number Visit Number [id number] Discharge Summary PT-OP-T Assessment and Plan Start: 11/05/18 18:49 Freq: Status: Active Protocol: Document 12/30/19 11:13 [facility] (Rec: 12/30/19 11:14 [facility] [email or web address]) Physical Therapy Plan Discharge Physical Therapy Discharge Reasons No Longer Attending PT Discharge Comments Pt's family has been called mult times with messages left to schedule appointments since clinic reopening. No call backs at this time. DC pt from service at this time. Pt will require new referal to resume . Pt was making progress with balance and strength prior to clinic closure d/t covid.
== END 2019-12-31 07:42 ==
LOC: PHYS 16:45
PROVIDERS: PCP Family Medicine; Visit Provider Family Medicine
DX: Z74.09 Other reduced mobility (principal); G40.919 Epilepsy, unspecified, intractable, without status epilepticus; G81.94 Hemiplegia, unspecified affecting left nondominant side; F94.0 Selective mutism
CPT/HCPCS: 97110; 97112; 97113; 97116; 97162; 97530

== ENCOUNTER 2019-09-18 10:30 | Outpatient (RCR) | payer OTHER, MEDICAID, SELFPAY ==
--- NOTE | 2018-11-13 17:07 | OT.OP.EVAL ---
Visit Care Team Role Provider Type Marylou Peace Referring Provider Non-Staff Specialty: Physical Medicine and Rehab Address: [address] [place] [address], [id number] Email: Kirstin Parmar DO Attending Provider Physician Family Provider Primary Care Provider Specialty: Family Practice Address: [address] [place] [address], [address] Email: [email or web address] Occupational Therapy Initial Evaluation OT Outpatient Adult Evaluation Start: 11/04/18 17:11 Freq: Status: Active Protocol: Document 11/04/18 17:12 AMS (Rec: 11/04/18 17:28 AMS [email or web address]) General Information Visit Start Time 12:30 Visit Stop Time 13:15 Total Visit Minutes 45 Plan of Care Dates 11/04/18-01/27/19 Insurance Information [employer]-Child Note Type Initial Evaluation Identification Confirmed Yes Identification Confirmed By Mother Medical History Per chart review: Mona is a 17 year-old right hand dominant girl with h/o intractable seizures and 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 Seizures resumed s/p procedure. 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 PMH: significant for moderate intellectual disability, selective mutism, left hemianopsia, left sided weakness. ADLs Comments Impaired; mod I w/ UB/LB dressing per Mother Goals Objective Measurements Impaired sensation of the L UE ; protective behaviors of L UE ('hiding hand/UE in sleeve of long sleeved shirt'); decreased initiation and ability to follow multi-step directions; decreased volitional motor coordination of L UE; tendency into flexion pattern w/ hand; L elbow flexion/extension WFL w/ environmental modifications to support; L forearm pronation WFL; PROM of L UE observed to be overhead w/ use of pulleys; decreased AROM of L wrist; minimal active L forearm supination; decreased active sh ROM; unable to complete formal ROM testing of L UE; R UE AROM WFL observed w/ functional movements; decreased functional independence. Treatment Education re: protective behaviors and use of clothing. Mother and daughter denied questions. Short Term Goals 1. Mona will be able to actively weight bear through the L UE (palm of hand) while standing at TT, x 1 minute, x 2 separate trials, while completing functional task with R UE, requiring maximum verbal and visual cues, and physical assistance from therapist with initial positioning of UE into weight bearing position at TT. 2. Mona will be able to actively weight shift L <-> R through the L UE (palm of hand ), while standing at TT, x 1 minute, x 2 separate trials, while completing functional task with the R UE, requiring maximum verbal and visual cues , and physical assistance from therapist with initial positioning of UE into weight bearing position at TT. 3. Mona will be able to successfully transfer item from lap to left side of body with the L UE while seated, demonstrating active elbow extension and forearm supination, 8 out of 10 trials , requiring maximum physical assistance with initial grasp of object and maximum verbal and visual cues from therapist . Detention Goals 1. Mona will be modified independent with execution of home exercise program with support of family utilizing provided written and visual instructions. 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 Mona was accompanied by her Mother to initial evaluation; Mother reported that prior to surgery Mona had 'better computer assistant' and coordination of the L UE. PMH: significant for moderate intellectual disability, selective mutism, left hemianopsia, left sided weakness. PLOF: Per Mother, Mona was independent w/ BADLS and was actively involved in program through the high school. Program was 3 days per week, Saturday, Saturday and , from 9:00 to 1:00. Job and life skills were being addressed in the program. Mother reported that Mona would return to the program the following week. Evaluation findings: Impaired sensation of the L UE; protective behaviors of L UE ( 'hiding hand/UE in sleeve of long sleeved shirt'); selective mutism; decreased initiation and ability to follow multi-step directions; decreased volitional motor coordination of L UE; tendency into flexion pattern w/ hand; L elbow flexion/extension WFL w/ environmental modifications to support; L forearm pronation WFL; PROM of L UE observed to be overhead w/ use of pulleys; decreased AROM of L wrist; minimal active L forearm supination; decreased active sh ROM; unable to complete formal ROM testing of L UE; R UE AROM WFL observed w/ functional movements; decreased functional independence. Outpatient OT is recommended to address these areas in order to maximize Mona's success in day-to-day life w/ active participation in meaningful activities. Home Exercise Program Please refer to treatment section of note for specific details. Reviewed with Patient Goals Progress Being Made Home Exercise Program Patient Understanding Fair Comment 12 weeks Comment 1-2 times per week Therapeutic Contents Active Range of Motion Adaptive Equipment Education Client Education Cognitive Skills Development Functional Activities Home Exercise Program Joint Protection Manual Therapy Education Neurodevelopment Treatment Neuromuscular Re-Education Self-Care Stretching/Flexibility Activities Therapeutic Activities Therapeutic Exercises Modalities Sensory Re-education Modalities As Needed As Prescribed Types of Modalities E-Stim Functional Stimulation (FES) T.E.N. Stimulation TENS Placement/Application Additional Types of Modalities Heat/Cold Patient Instruction Home Exercise Program Plan of Care Questions/Concerns
--- NOTE | 2018-11-13 17:23 | OT.OP.TRT ---
Visit Care Team Role Provider Type Marylou Peace Referring Provider Non-Staff Specialty: Physical Medicine and Rehab Address: [address] [place] [address], [id number] Email: Kirstin Parmar DO Attending Provider Physician Family Provider Primary Care Provider Specialty: Family Practice Address: [address] [place] [address], [address] Email: [email or web address] Occupational Therapy Treatment Note OT Outpatient Treatment Note - Adult Start: 11/04/18 17:11 Freq: Status: Active Protocol: Document 11/13/18 17:11 AMS (Rec: 11/13/18 17:23 AMS [email or web address]) OT Outpatient Adult Treatment Note Session Time Visit Start Time 13:30 Visit Stop Time 14:18 Total Visit Minutes 48 Visit Information Plan of Care Dates 11/04/18-01/27/19 Insurance Information [employer]-Child Setting Treatment Setting Outpatient Care Visit Type Note Type Treatment Note General Information General Information Mona is a 17 year-old right hand dominant female referred to outpatient OT 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 PMH: significant for moderate intellectual disability, selective mutism, left hemianopsia, left sided weakness. - Subjective Identification Type Name Identification Reconciled With Medical Record Observations Mona communicated via shaking of head/smiles to therapist. No verbal exchange of communication w/ therapist. Chief Complaint(s) Restricts Patient/Caregiver Compliance with Home Good Exercise Program Comments w/ family support. - Objective Objective Measurements Mona was seen 1:1 for OT treatment session. Please refer to below for progress towards meeting established OT goals. Short Term Goals 1. Mona will be able to actively weight bear through the L UE (palm of hand) while standing at TT, x 1 minute, x 2 separate trials, while completing functional task with R UE, requiring maximum verbal and visual cues, and physical assistance from therapist with initial positioning of UE into weight bearing position at TT. 2. Mona will be able to actively weight shift L <-> R through the L UE (palm of hand ), while standing at TT, x 1 minute, x 2 separate trials, while completing functional task with the R UE, requiring maximum verbal and visual cues , and physical assistance from therapist with initial positioning of UE into weight bearing position at TT. 3. Mona will be able to successfully transfer item from lap to left side of body with the L UE while seated, demonstrating active elbow extension and forearm supination, 8 out of 10 trials , requiring maximum physical assistance with initial grasp of object and maximum verbal and visual cues from therapist . Casting Sorter Goals 1. Mona will be modified independent with execution of home exercise program with support of family utilizing provided written and visual instructions. - Treatment 4 Descriptor L UE TT gravity sh abd/add 1x10 each 3 Descriptor Bimanual/B UE motor coordination Rowing machine x 1 min; mod phys assist Arm pulleys x 1 min Digs/Hula hoop 1x10 each 2 Descriptor Functional movement PNF UE diagonal seated 1x10 1 Descriptor Active WB L UE Standing at TT 1x10 - Assessment Patient Response to Treatment Fair Rehab Potential Fair Impairments Identified ADLs Balance Coordination/Dexterity Functional Activities Motor Function Weakness Posture Range of Motion Recreational Activities Meaningful Activities Motor Planning Assessment of Improvement Improved active participation in OT treatment session on this treatment date. (+) protective posturing of UE noted when having difficulty completing task/skill. Decreased activity tolerance; preference for short tasks ( limited repetitions). Decreased motor coordination of UE. Recommend continuation of short, limited repetition tasks including UE WB and bimanual tasks. Home Exercise Program No additional changes to HEP on this treatment date. Patient/Caregiver Understanding Good - Plan Therapy Recommendations Continue with Current Program Advance per Rehabilitation Protocol
--- NOTE | 2018-11-17 15:06 | OT.OP.TRT ---
Visit Care Team Role Provider Type Marylou Peace Referring Provider Non-Staff Specialty: Physical Medicine and Rehab Address: [address] [place] [address], [address] Email: Kirstin Parmar DO Attending Provider Physician Family Provider Primary Care Provider Specialty: Family Practice Address: [address] [place] [address], [address] Email: [email or web address] Occupational Therapy Treatment Note OT Outpatient Treatment Note - Adult Start: 11/04/18 17:11 Freq: Status: Active Protocol: Document 11/17/18 14:45 AMS (Rec: 11/17/18 15:06 AMS [email or web address]) OT Outpatient Adult Treatment Note Session Time Visit Start Time 13:30 Visit Stop Time 14:20 Total Visit Minutes 50 Visit Information Plan of Care Dates 11/04/18-01/27/19 Insurance Information [employer]-Child Setting Treatment Setting Outpatient Care Visit Type Note Type Treatment Note General Information General Information Mona is a 17 year-old right hand dominant female referred to outpatient OT 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 Mona was accompanied by her Mother to initial evaluation; Mother reported that prior to surgery Mona had 'better geothermal technician' and coordination of the L UE. PMH: significant for moderate intellectual disability, selective mutism, left hemianopsia, left sided weakness. - Subjective Identification Type Name Identification Reconciled With Medical Record Observations They told me to hold up my hand and have her touch it with her 10 times a day per Mother. Her vision is really bothering her today; she has already been in the pool. Mona observed to shake her head 'yes' when asked if she ' would rather be in OT treatment room' versus in larger gym area. Chief Complaint(s) Restricts Patient/Caregiver Compliance with Home Fair Exercise Program Comments w/ family support - Objective Objective Measurements Mona was seen 1:1 for OT treatment session. (-) L thumb coordination observed; able to raise L hand above sh height w/ eye-hand coordination activities in frontal plane and to the right . Avoidance of head turn to left to compensate for visual impairment. Please refer to below for progress towards meeting established OT goals. Short Term Goals 1. Mona will be able to actively weight bear through the L UE (palm of hand) while standing at TT, x 1 minute, x 2 separate trials, while completing functional task with R UE, requiring maximum verbal and visual cues, and physical assistance from therapist with initial positioning of UE into weight bearing position at TT. 2. Mona will be able to actively weight shift L <-> R through the L UE (palm of hand ), while standing at TT, x 1 minute, x 2 separate trials, while completing functional task with the R UE, requiring maximum verbal and visual cues , and physical assistance from therapist with initial positioning of UE into weight bearing position at TT. 3. Mona will be able to successfully transfer item from lap to left side of body with the L UE while seated, demonstrating active elbow extension and forearm supination, 8 out of 10 trials , requiring maximum physical assistance with initial grasp of object and maximum verbal and visual cues from therapist . 11/17/18= 25% met; (-) forearm supination Skilled Nursing Goals 1. Mona will be modified independent with execution of home exercise program with support of family utilizing provided written and visual instructions. - Treatment 5 Descriptor Object manipulation Birch bag 1x10 L of body; tennis ball release w/ tube 1x10 Complexity Upgraded 4 Descriptor L UE TT gravity sh abd/add 1x10 each 3 Descriptor Bimanual/B UE motor coordination UEB x 2 min; [address]; rope pull x 5 reps; velcro catch 2 Descriptor Eye-hand coordination in diagonals Balloon w/ object in hand; 1x10 reps per activity x 3 separate activities; 1 Descriptor Active WB L UE Standing at TT 1x10 Exercises 1 Descriptor HEP. Instructed Mother in eye- hand coordination activity to complete in the home w/ light object placed in L hand to promote motor coordination of UE. Mother denied questions. Complexity Upgraded - Assessment Patient Response to Treatment Fair Rehab Potential Fair Impairments Identified ADLs Balance Coordination/Dexterity Functional Activities Motor Function Weakness Posture Range of Motion Recreational Activities Meaningful Activities Motor Planning Assessment of Improvement (+) protective posturing of UE noted when having difficulty completing task/skill; decreased tolerance for attending to body of space to the left w/ active neck rotation. Decreased activity tolerance; preference for short tasks. Slightly improved active extension of digits in prep for gross grasp. Slight improved motor coordination w/ transfer of objects from right -> left; slightly improved motor coordination observed w/ functional reach in frontal plane. Decreased spontaneous incorporation of L UE; decreased volitional control of hand. Recommend continuation of short, limited repetition tasks including UE WB and bimanual tasks. Home Exercise Program Please refer to treatment section of note for specific details. Patient/Caregiver Understanding Good - Plan Therapy Recommendations Continue with Current Program Advance per Rehabilitation Protocol
--- NOTE | 2018-11-28 16:21 | OT.OP.TRT ---
Visit Care Team Role Provider Type Marylou Peace Referring Provider Non-Staff Specialty: Physical Medicine and Rehab Address: [address] [place] [address], [id number] Email: Kirstin Parmar DO Attending Provider Physician Family Provider Primary Care Provider Specialty: Family Practice Address: [address] [place] [address], [id number] Email: [email or web address] Occupational Therapy Treatment Note OT Outpatient Treatment Note - Adult Start: 11/04/18 17:11 Freq: Status: Active Protocol: Document 11/28/18 16:03 [facility] (Rec: 11/28/18 16:21 [facility] [email or web address]) OT Outpatient Adult Treatment Note Session Time Visit Start Time 13:30 Visit Stop Time 14:20 Total Visit Minutes 50 Visit Information Plan of Care Dates 11/04/18-01/27/19 Insurance Information [employer]-Child Setting Treatment Setting Outpatient Care Visit Type Note Type Treatment Note General Information General Information Mona is a 17 year-old right hand dominant female referred to outpatient OT 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 Mona was accompanied by her Mother to initial evaluation; Mother reported that prior to surgery Mona had 'better aerodynamicist' and coordination of the L UE. PMH: significant for moderate intellectual disability, selective mutism, left hemianopsia, left sided weakness. - Subjective Identification Type Name Identification Reconciled With Medical Record Observations She had an appointment with the neurologist per Mother. Chief Complaint(s) Restricts Patient/Caregiver Compliance with Home Fair Exercise Program Comments w/ family support - Objective Objective Measurements Mona was seen 1:1 for OT treatment session. Avoidance of head turn to left to compensate for visual impairment. Please refer to below for progress towards meeting established OT goals. Short Term Goals 1. Mona will be able to actively weight bear through the L UE (palm of hand) while standing at TT, x 1 minute, x 2 separate trials, while completing functional task with R UE, requiring maximum verbal and visual cues, and physical assistance from therapist with initial positioning of UE into weight bearing position at TT. 2. Mona will be able to actively weight shift L <-> R through the L UE (palm of hand ), while standing at TT, x 1 minute, x 2 separate trials, while completing functional task with the R UE, requiring maximum verbal and visual cues , and physical assistance from therapist with initial positioning of UE into weight bearing position at TT. 3. Mona will be able to successfully transfer item from lap to left side of body with the L UE while seated, demonstrating active elbow extension and forearm supination, 8 out of 10 trials , requiring maximum physical assistance with initial grasp of object and maximum verbal and visual cues from therapist . 11/28/18= 25% met; (-) forearm supination Print Shop Manager Goals 1. Mona will be modified independent with execution of home exercise program with support of family utilizing provided written and visual instructions. - Treatment 5 Descriptor Object manipulation - 1x10 per activity/exercise Birch bag L of body; tennis ball release; tools in hand; token w/ slot in container 4 Descriptor L UE TT gravity sh abd/add 1x10 each 3 Descriptor Bimanual/B UE motor coordination UEB x 2 min; [address]; arm pulleys x 3 minutes 2 Descriptor Eye-hand coordination in diagonals Exercises 1 Descriptor HEP. No changes to HEP. - Assessment Patient Response to Treatment Fair Rehab Potential Fair Impairments Identified ADLs Balance Coordination/Dexterity Functional Activities Motor Function Weakness Posture Range of Motion Recreational Activities Meaningful Activities Motor Planning Assessment of Improvement (+) protective posturing of UE throughout treatment session; concealing of hand/UE outside of treatment session w/ long sleeved UB garment. Decreased activity tolerance; preference for tasks w/ limited repetitions. Decreased spontaneous incorporation of L UE; decreased volitional control of hand/UE. Recommend that therapist continues to address attention to left side body of space, bimanual coordination activities, and motor abilities of L UE. Home Exercise Program Please refer to treatment section of note for specific details. Patient/Caregiver Understanding Good - Plan Therapy Recommendations Continue with Current Program Advance per Rehabilitation Protocol
--- NOTE | 2018-12-05 14:03 | OT.OP.TRT ---
Visit Care Team Role Provider Type Marylou Peace Referring Provider Non-Staff Specialty: Physical Medicine and Rehab Address: [address] [place] [address], [id number] Email: Kirstin Parmar DO Attending Provider Physician Family Provider Primary Care Provider Specialty: Family Practice Address: [address] [place] [address], [id number] Email: [email or web address] Occupational Therapy Treatment Note OT Outpatient Treatment Note - Adult Start: 11/04/18 17:11 Freq: Status: Active Protocol: Document 12/05/18 13:54 AMS (Rec: 12/05/18 14:03 AMS [email or web address]) OT Outpatient Adult Treatment Note Session Time Visit Start Time 10:30 Visit Stop Time 11:20 Total Visit Minutes 45 Visit Information Plan of Care Dates 11/04/18-01/27/19 Insurance Information [employer]-Child Setting Treatment Setting Outpatient Care Visit Type Note Type Treatment Note General Information General Information Mona is a 17 year-old right hand dominant female referred to outpatient OT 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 Mona was accompanied by her Mother to initial evaluation; Mother reported that prior to surgery Mona had 'better master mechanic' and coordination of the L UE. PMH: significant for moderate intellectual disability, selective mutism, left hemianopsia, left sided weakness. - Subjective Identification Type Name Identification Reconciled With Medical Record Observations She was coming down with a cold so I didn't want to bring her in on Saturday. She had a seizure that day; she was standing by the couch and then I turned around and I saw laying down on it. She said she didn't have an aura. She has had 3 falls; she has bruises all along this leg ( right leg). She was trying to catch up with me when I was trying to get my sister's dogs and she fell on the pavement per Mother. [facility] that they thought was causing her to get kidney stones due to dehydration. They just told me to make sure she is staying hydrated. They are also having her get blood work today. She was found to be positive for a mold that sometimes is found in hospitals. They are concerned because she had sutures with her brain surgery per Mother. Chief Complaint(s) Restricts Patient/Caregiver Compliance with Home Fair Exercise Program Comments w/ family support - Objective Objective Measurements Mona was seen 1:1 for OT treatment session. Avoidance of head turn to left to compensate for visual impairment. Please refer to below for progress towards meeting established OT goals. Short Term Goals 1. Mona will be able to actively weight bear through the L UE (palm of hand) while standing at TT, x 1 minute, x 2 separate trials, while completing functional task with R UE, requiring maximum verbal and visual cues, and physical assistance from therapist with initial positioning of UE into weight bearing position at TT. 2. Mona will be able to actively weight shift L <-> R through the L UE (palm of hand ), while standing at TT, x 1 minute, x 2 separate trials, while completing functional task with the R UE, requiring maximum verbal and visual cues , and physical assistance from therapist with initial positioning of UE into weight bearing position at TT. 3. Mona will be able to successfully transfer item from lap to left side of body with the L UE while seated, demonstrating active elbow extension and forearm supination, 8 out of 10 trials , requiring maximum physical assistance with initial grasp of object and maximum verbal and visual cues from therapist . 11/28/18= 25% met; (-) forearm supination Correction Goals 1. Mona will be modified independent with execution of home exercise program with support of family utilizing provided written and visual instructions. - Treatment 5 Descriptor Object manipulation - 1x10 per activity/exercise Birch bag L of body; tennis ball release; tools in hand; token w/ slot in container 4 Descriptor L UE TT gravity sh abd/add 1x10 each 3 Descriptor Bimanual/B UE motor coordination UEB x 3 [address] Complexity Upgraded 2 Descriptor Eye-hand coordination in diagonals Complexity Upgraded Exercises 1 Descriptor HEP. No changes to HEP. - Assessment Patient Response to Treatment Fair Rehab Potential Fair Impairments Identified ADLs Balance Coordination/Dexterity Functional Activities Motor Function Weakness Posture Range of Motion Recreational Activities Meaningful Activities Motor Planning Assessment of Improvement (+) protective posturing of UE throughout treatment session; concealing of B hands/UEs outside of treatment session w / long sleeved UB garment. Exercises limited to seated work d/t recent falls/seizure. Decreased exercises/ activities overall d/t c/o fatigue as side effect from seizure medication. Improved active finger extension noted w/ manipulation of 7-inch ball w/ L hand; modified to release/push w/ L hand d/t non verbal indication of frustration/avoidance. Recommend that therapist continues to address attention to left side body of space, bimanual coordination activities, and motor abilities of L UE. Home Exercise Program Please refer to treatment section of note for specific details. Patient/Caregiver Understanding Good - Plan Therapy Recommendations Continue with Current Program Advance per Rehabilitation Protocol
--- NOTE | 2018-12-09 14:55 | OT.OP.TRT ---
Visit Care Team Role Provider Type Marylou Peace Referring Provider Non-Staff Specialty: Physical Medicine and Rehab Address: [address] [place] [address], [id number] Email: Kirstin Parmar DO Attending Provider Physician Family Provider Primary Care Provider Specialty: Family Practice Address: [address] [place] [address], [address] Email: [email or web address] Occupational Therapy Treatment Note OT Outpatient Treatment Note - Adult Start: 11/04/18 17:11 Freq: Status: Active Protocol: Document 12/09/18 14:51 AMS (Rec: 12/09/18 14:55 AMS [email or web address]) OT Outpatient Adult Treatment Note Session Time Visit Start Time 14:48 Visit Stop Time 14:51 Total Visit Minutes 3 Visit Information Plan of Care Dates 11/04/18-01/27/19 Insurance Information [employer]-Child Setting Treatment Setting Outpatient Care Visit Type Note Type Administrative Note General Information General Information Mona is a 17 year-old right hand dominant female referred to outpatient OT 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 Mona was accompanied by her Mother to initial evaluation; Mother reported that prior to surgery Mona had 'better resin maker' and coordination of the L UE. PMH: significant for moderate intellectual disability, selective mutism, left hemianopsia, left sided weakness. - Subjective Identification Type Name Identification Reconciled With Medical Record Observations Phone call to available phone number [phone] to Tatyana Small. No one was available to answer phone. Voicemail was left re: missed outpatient OT appt on this date and missed outpatient PT appt previous date and request for additional outpatient OT appts to be scheduled. Phone number to outpatient clinic was also provided in voicemail. Therapist to follow-up as needed. Chief Complaint(s) Restricts Patient/Caregiver Compliance with Home Fair Exercise Program Comments w/ family support - Objective Short Term Goals 1. Mona will be able to actively weight bear through the L UE (palm of hand) while standing at TT, x 1 minute, x 2 separate trials, while completing functional task with R UE, requiring maximum verbal and visual cues, and physical assistance from therapist with initial positioning of UE into weight bearing position at TT. 2. Mona will be able to actively weight shift L <-> R through the L UE (palm of hand ), while standing at TT, x 1 minute, x 2 separate trials, while completing functional task with the R UE, requiring maximum verbal and visual cues , and physical assistance from therapist with initial positioning of UE into weight bearing position at TT. 3. Mona will be able to successfully transfer item from lap to left side of body with the L UE while seated, demonstrating active elbow extension and forearm supination, 8 out of 10 trials , requiring maximum physical assistance with initial grasp of object and maximum verbal and visual cues from therapist . 11/28/18= 25% met; (-) forearm supination Half-Way Goals 1. Mona will be modified independent with execution of home exercise program with support of family utilizing provided written and visual instructions. - Treatment 5 Descriptor Object manipulation - 1x10 per activity/exercise Birch bag L of body; tennis ball release; tools in hand; token w/ slot in container 4 Descriptor L UE TT gravity sh abd/add 1x10 each 3 Descriptor Bimanual/B UE motor coordination UEB x [address]; [address] Complexity Upgraded 2 Descriptor Eye-hand coordination in diagonals Complexity Upgraded Exercises 1 Descriptor HEP. No changes to HEP. - -
--- NOTE | 2018-12-17 14:50 | OT.OP.TRT ---
Visit Care Team Role Provider Type Marylou Peace Referring Provider Non-Staff Specialty: Physical Medicine and Rehab Address: [address] [place] [address], [id number] Email: Kirstin Parmar DO Attending Provider Physician Family Provider Primary Care Provider Specialty: Family Practice Address: [address] [place] [address], [id number] Email: [email or web address] Occupational Therapy Treatment Note OT Outpatient Treatment Note - Adult Start: 11/04/18 17:11 Freq: Status: Active Protocol: Document 12/17/18 14:36 AMS (Rec: 12/17/18 14:50 AMS [id number]) OT Outpatient Adult Treatment Note Session Time Visit Start Time 10:30 Visit Stop Time 11:20 Total Visit Minutes 50 Visit Information Plan of Care Dates 11/04/18-01/27/19 Insurance Information [employer]-Child Setting Treatment Setting Outpatient Care Visit Type Note Type Treatment Note General Information General Information Mona is a 17 year-old right hand dominant female referred to outpatient OT 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 Mona was accompanied by her Mother to initial evaluation; Mother reported that prior to surgery Mona had 'better architecture consultant' and coordination of the L UE. PMH: significant for moderate intellectual disability, selective mutism, left hemianopsia, left sided weakness. - Subjective Identification Type Name Identification Reconciled With Medical Record Observations My cousin per Mona in re: individual who she wanted to ' come back to see the session'. Chief Complaint(s) Restricts Patient/Caregiver Compliance with Home Fair Exercise Program Comments w/ family support - Objective Objective Measurements Mona was seen 1:1 for OT treatment session. Avoidance of head turn to left to compensate for visual impairment. Please refer to below for progress towards meeting established OT goals. Short Term Goals 1. Mona will be able to actively weight bear through the L UE (palm of hand) while standing at TT, x 1 minute, x 2 separate trials, while completing functional task with R UE, requiring maximum verbal and visual cues, and physical assistance from therapist with initial positioning of UE into weight bearing position at TT. 2. Mona will be able to actively weight shift L <-> R through the L UE (palm of hand ), while standing at TT, x 1 minute, x 2 separate trials, while completing functional task with the R UE, requiring maximum verbal and visual cues , and physical assistance from therapist with initial positioning of UE into weight bearing position at TT. 3. Mona will be able to successfully transfer item from lap to left side of body with the L UE while seated, demonstrating active elbow extension and forearm supination, 8 out of 10 trials , requiring maximum physical assistance with initial grasp of object and maximum verbal and visual cues from therapist . 12/17/18= 25% met; (-) forearm supination 4. Mona will be able to successfully bounce tennis ball across TT to therapist, 8 out of 10 trials, utilizing the L hand, while seated, requiring min to max physical assistance with initial grasp of tennis ball from therapist. 12/17/18= 25% met Longterm Goals 1. Mona will be modified independent with execution of home exercise program with support of family utilizing provided written and visual instructions. - Treatment 5 Descriptor Object manipulation - 1x10 per activity/exercise Birch bag L of body; tennis ball release; [place] board 3 Descriptor Bimanual/B UE motor coordination UEB x 3 min; [address] Height #3 2 Descriptor Eye-hand coordination L UE Exercises 1 Descriptor HEP. No changes to HEP. - Assessment Patient Response to Treatment Fair Rehab Potential Fair Impairments Identified ADLs Balance Coordination/Dexterity Functional Activities Motor Function Weakness Posture Range of Motion Recreational Activities Meaningful Activities Motor Planning Assessment of Improvement (+) protective posturing of UE w/ transition from waiting room <--> treatment room. (+) verbal communication w/ therapist in 1:1 small setting for first time; 1-2 word answers to therapist's questions. Improving motor planning observed w/ the L hand relative to object manipulation; increasing consistency w/ release. Improving active L wrist extension noted w/ object manipulation on this date as well. However, decreased functional incorporation of L UE on a daily basis noted. Recommend that therapist continues to address attention to left side body of space, bimanual coordination activities, and motor abilities of L UE. Home Exercise Program Please refer to treatment section of note for specific details. Patient/Caregiver Understanding Good - Plan Therapy Recommendations Continue with Current Program Advance per Rehabilitation Protocol
--- NOTE | 2018-12-18 13:29 | OT.OP.TRT ---
Addendum entered and electronically signed by Rhona Martinez OT 12/18/18 13:30: Treatment note is for OT session 12/12/18. Original Note: Visit Care Team Role Provider Type Marylou Peace Referring Provider Non-Staff Specialty: Physical Medicine and Rehab Address: [address] [place] [address], [id number] Email: Kirstin Parmar DO Attending Provider Physician Family Provider Primary Care Provider Specialty: Family Practice Address: [address] [place] [address], [id number] Email: [email or web address] Occupational Therapy Treatment Note OT Outpatient Treatment Note - Adult Start: 11/04/18 17:11 Freq: Status: Active Protocol: Document 12/17/18 14:36 AMS (Rec: 12/17/18 14:50 AMS [email or web address]) OT Outpatient Adult Treatment Note Session Time Visit Start Time 10:30 Visit Stop Time 11:20 Total Visit Minutes 50 Visit Information Plan of Care Dates 11/04/18-01/27/19 Insurance Information [employer]-Child Setting Treatment Setting Outpatient Care Visit Type Note Type Treatment Note General Information General Information Mona is a 17 year-old right hand dominant female referred to outpatient OT 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 PMH: significant for moderate intellectual disability, selective mutism, left hemianopsia, left sided weakness. - Subjective Identification Type Name Identification Reconciled With Medical Record Observations My cousin per Mona in re: individual who she wanted to ' come back to see the session'. Chief Complaint(s) Restricts Patient/Caregiver Compliance with Home Fair Exercise Program Comments w/ family support - Objective Objective Measurements Mona was seen 1:1 for OT treatment session. Avoidance of head turn to left to compensate for visual impairment. Please refer to below for progress towards meeting established OT goals. Short Term Goals 1. Mona will be able to actively weight bear through the L UE (palm of hand) while standing at TT, x 1 minute, x 2 separate trials, while completing functional task with R UE, requiring maximum verbal and visual cues, and physical assistance from therapist with initial positioning of UE into weight bearing position at TT. 2. Mona will be able to actively weight shift L <-> R through the L UE (palm of hand ), while standing at TT, x 1 minute, x 2 separate trials, while completing functional task with the R UE, requiring maximum verbal and visual cues , and physical assistance from therapist with initial positioning of UE into weight bearing position at TT. 3. Mona will be able to successfully transfer item from lap to left side of body with the L UE while seated, demonstrating active elbow extension and forearm supination, 8 out of 10 trials , requiring maximum physical assistance with initial grasp of object and maximum verbal and visual cues from therapist . 12/17/18= 25% met; (-) forearm supination 4. Mona will be able to successfully bounce tennis ball across TT to therapist, 8 out of 10 trials, utilizing the L hand, while seated, requiring min to max physical assistance with initial grasp of tennis ball from therapist. 12/17/18= 25% met Group Home Goals 1. Mnoa will be modified independent with execution of home exercise program with support of family utilizing provided written and visual instructions. - Treatment 5 Descriptor Object manipulation - 1x10 per activity/exercise Birch bag L of body; tennis ball release; [place] board 3 Descriptor Bimanual/B UE motor coordination UEB x 3 min; [address] Height #3 2 Descriptor Eye-hand coordination L UE Exercises 1 Descriptor HEP. No changes to HEP. - Assessment Patient Response to Treatment Fair Rehab Potential Fair Impairments Identified ADLs Balance Coordination/Dexterity Functional Activities Motor Function Weakness Posture Range of Motion Recreational Activities Meaningful Activities Motor Planning Assessment of Improvement (+) protective posturing of UE w/ transition from waiting room <--> treatment room. (+) verbal communication w/ therapist in 1:1 small setting for first time; 1-2 word answers to therapist's questions. Improving motor planning observed w/ the L hand relative to object manipulation; increasing consistency w/ release. Improving active L wrist extension noted w/ object manipulation on this date as well. However, decreased functional incorporation of L UE on a daily basis noted. Recommend that therapist continues to address attention to left side body of space, bimanual coordination activities, and motor abilities of L UE. Home Exercise Program Please refer to treatment section of note for specific details. Patient/Caregiver Understanding Good - Plan Therapy Recommendations Continue with Current Program Advance per Rehabilitation Protocol
--- NOTE | 2018-12-22 12:01 | OT.OP.TRT ---
Visit Care Team Role Provider Type Marylou Peace Referring Provider Non-Staff Specialty: Physical Medicine and Rehab Address: [address] [place] [address], [id number] Email: Kirstin Parmar DO Attending Provider Physician Family Provider Primary Care Provider Specialty: Family Practice Address: [address] [place] [address], [id number] Email: [email or web address] Occupational Therapy Treatment Note OT Outpatient Treatment Note - Adult Start: 11/04/18 17:11 Freq: Status: Active Protocol: Document 12/22/18 11:53 AMS (Rec: 12/22/18 12:01 AMS [email or web address]) OT Outpatient Adult Treatment Note Session Time Visit Start Time 10:50 Visit Stop Time 11:20 Total Visit Minutes 30 Visit Information Plan of Care Dates 11/04/18-01/27/19 Insurance Information [employer]-Child Setting Treatment Setting Outpatient Care Visit Type Note Type Treatment Note General Information General Information Mona is a 17 year-old right hand dominant female referred to outpatient OT 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 PMH: significant for moderate intellectual disability, selective mutism, left hemianopsia, left sided weakness. - Subjective Identification Type Name Identification Reconciled With Medical Record Observations Treatment session shortened given that Mona arrived late to treatment session. She needs quite a bit of encouragement to use the left arm/hand per Tatyana (mother) . I don't know per Mona in re: therapist's question ' what does she want to be able to do with her left hand?' Chief Complaint(s) Restricts Patient/Caregiver Compliance with Home Fair Exercise Program Comments w/ family support - Objective Objective Measurements Mona was seen 1:1 for OT treatment session. Avoidance of head turn to left to compensate for visual impairment. Please refer to below for progress towards meeting established OT goals. Short Term Goals 1. Mona will be able to actively weight bear through the L UE (palm of hand) while standing at TT, x 1 minute, x 2 separate trials, while completing functional task with R UE, requiring maximum verbal and visual cues, and physical assistance from therapist with initial positioning of UE into weight bearing position at TT. 2. Mona will be able to actively weight shift L <-> R through the L UE (palm of hand ), while standing at TT, x 1 minute, x 2 separate trials, while completing functional task with the R UE, requiring maximum verbal and visual cues , and physical assistance from therapist with initial positioning of UE into weight bearing position at TT. 3. Mona will be able to successfully transfer item from lap to left side of body with the L UE while seated, demonstrating active elbow extension and forearm supination, 8 out of 10 trials , requiring maximum physical assistance with initial grasp of object and maximum verbal and visual cues from therapist . 12/22/18= 75% met; 7/10 trials 4. Mona will be able to demonstrate improved functional motor abilities of the left hand, as evidenced by ability to flip 8 out of 10 cards over with the left hand, at edge of tabletop requiring direct modeling and maximum verbal cues from therapist. = NEW GOAL GOALS MET Bounced tennis ball across TT to therapist, 8/10 trials, w/ L hand, while seated, requiring CGA to mod phys A w/ initial grasp. *MET 12/22/18 Senior Care Goals 1. Mona will be modified independent with execution of home exercise program with support of family utilizing provided written and visual instructions. - Treatment 5 Descriptor Object manipulation - 1x10 per activity/exercise Birch bag L of body; tennis ball release; cards; washers 3 Descriptor Bimanual/B UE motor coordination UEB x 3 min; [address] Height #3 2 Descriptor Eye-hand coordination L UE Exercises 1 Descriptor HEP. Reviewed treatment session w/ Mother. Education completed re: functional incorporation of L hand/UE on daily basis as able. - Assessment Patient Response to Treatment Fair Rehab Potential Fair Impairments Identified ADLs Balance Coordination/Dexterity Functional Activities Motor Function Weakness Posture Range of Motion Recreational Activities Meaningful Activities Motor Planning Assessment of Improvement (+) protective posturing of UE w/ transition from waiting room <--> treatment room. (+) verbal communication w/ therapist in 1:1 small setting for first time; 1-3 word answers to therapist's questions. Improving motor planning observed w/ the L hand relative to object manipulation; this is evidenced by ability to bounce tennis ball across table to therapist w/ increased consistency w/ intermittent levels of phys assist w/ initial grasp. Advanced object manipulation tasks and education was completed in re: incorporating L UE/hand in day-to-day life w/ completion of functional tasks. Recommend that therapist continues to address attention to left side body of space, bimanual coordination activities, and motor abilities of L UE. Home Exercise Program Please refer to treatment section of note for specific details. Patient/Caregiver Understanding Good - Plan Therapy Recommendations Continue with Current Program Advance per Rehabilitation Protocol
--- NOTE | 2018-12-25 14:18 | OT.OP.TRT ---
Visit Care Team Role Provider Type Marylou Peace Referring Provider Non-Staff Specialty: Physical Medicine and Rehab Address: [address] [place] [address], [id number] Email: Kirstin Parmar DO Attending Provider Physician Family Provider Primary Care Provider Specialty: Family Practice Address: [address] [place] [address], [id number] Email: [email or web address] Occupational Therapy Treatment Note OT Outpatient Treatment Note - Adult Start: 11/04/18 17:11 Freq: Status: Active Protocol: Document 12/25/18 14:01 [facility] (Rec: 12/25/18 14:18 [facility] [email or web address]) OT Outpatient Adult Treatment Note Session Time Visit Start Time 10:30 Visit Stop Time 11:15 Total Visit Minutes 45 Visit Information Plan of Care Dates 11/04/18-01/27/19 Insurance Information [employer]-Child Setting Treatment Setting Outpatient Care Visit Type Note Type Treatment Note General Information General Information Mona is a 17 year-old right hand dominant female referred to outpatient OT 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 Mona was accompanied by her Mother to initial evaluation; Mother reported that prior to surgery Mona had 'better assistant customer service manager' and coordination of the L UE. PMH: significant for moderate intellectual disability, selective mutism, left hemianopsia, left sided weakness. - Subjective Identification Type Name Identification Reconciled With Medical Record Observations I don't know yet per Mona in re: what she wants to be able to do with her left hand. She has been helping with that hand when getting dressed and pulling up her pants. I have to tell her to. She wants me to do it for her per Tatyana/Mother. Chief Complaint(s) Restricts Patient/Caregiver Compliance with Home Fair Exercise Program Comments w/ family support - Objective Objective Measurements Mona was seen 1:1 for OT treatment session. Please refer to strength testing section of note for specific details re: results of dynamometer and pinchometer strength testing. Avoidance of head turn to left to compensate for visual impairment. Please refer to below for progress towards meeting established OT goals. Short Term Goals 1. Mona will be able to actively weight bear through the L UE (palm of hand) while standing at TT, x 1 minute, x 2 separate trials, while completing functional task with R UE, requiring maximum verbal and visual cues, and physical assistance from therapist with initial positioning of UE into weight bearing position at TT. 2. Mona will be able to actively weight shift L <-> R through the L UE (palm of hand ), while standing at TT, x 1 minute, x 2 separate trials, while completing functional task with the R UE, requiring maximum verbal and visual cues , and physical assistance from therapist with initial positioning of UE into weight bearing position at TT. 3. Mona will be able to successfully transfer item from lap to left side of body with the L UE while seated, demonstrating active elbow extension and forearm supination, 8 out of 10 trials , requiring maximum physical assistance with initial grasp of object and maximum verbal and visual cues from therapist . 12/22/18= 75% met; 7/10 trials 4. Mona will be able to demonstrate improved functional motor abilities of the left hand, as evidenced by ability to flip 8 out of 10 cards over with the left hand, at edge of tabletop requiring direct modeling and maximum verbal cues from therapist. = NEW GOAL GOALS MET Bounced tennis ball across TT to therapist, 8/10 trials, w/ L hand, while seated, requiring CGA to mod phys A w/ initial grasp. *MET 12/22/18 Bulb Filler Goals 1. Mona will be modified independent with execution of home exercise program with support of family utilizing provided written and visual instructions. 2. Mona will average 25.0 pounds of force with left assistant customer service manager dynamometer strength testing. - Treatment 5 Descriptor Object manipulation - 1x10 per activity/exercise 2 Descriptor Eye-hand coordination L UE Exercises 1 Descriptor HEP. Reviewed treatment session w/ Mother. Education completed re: functional incorporation of L hand/UE on daily basis as able (discussed use w/ manipulation of zippers). Mother denied questions. - Assessment Patient Response to Treatment Fair Rehab Potential Fair Impairments Identified ADLs Balance Coordination/Dexterity Functional Activities Motor Function Weakness Posture Range of Motion Recreational Activities Meaningful Activities Motor Planning Assessment of Improvement Nuclear Waste Process Operator and lateral pinch strength testing was completed on this treatment date; Mona's right assistant customer service manager strength average was found to be within 1 SD below the mean compared to same-aged female peers; Mona's right average lateral pinch strength was found to be slightly below the mean compared to same-aged female peers. Mona's average left assistant customer service manager strength was found to be > 3 SD below the mean compared to same-aged female peers; Mona's average left lateral pinch strength was found to be > 2 SD below the mean compared to same-aged female peers. Findings indicate need to address Mona's L hand strength. Initiated 2 object manipulation/translation from fingertips to palm focus/gross grasp. Recommend repeating this activity and progressing to rotational component w/ medium and large pegs. Recommend that therapist continues to address attention to left side body of space, bimanual coordination activities, and motor abilities of L UE. Home Exercise Program Please refer to treatment section of note for specific details. Patient/Caregiver Understanding Good - Occupational Therapy Assessment OT Outpatient Muscle Testing Start: 12/25/18 14:01 Freq: Status: Active Protocol: Document 12/25/18 14:01 [facility] (Rec: 12/25/18 14:18 [facility] [id number]) Nuclear Waste Process Operator/Hand Strength Nuclear Waste Process Operator/Hand Strength Left Nuclear Waste Process Operator Dynamometer II 18.7 Lateral Pinch Strengh (lbs) 10.3 Comments Nuclear Waste Process Operator = > 3 SD below mean; Lateral Pinch = > 2 SD below the mean Norms for 18-19 y.o. females Nuclear Waste Process Operator = 61.7 +/- 12.5 Lateral Pinch = 17.2 +/- 2.5 Right Nuclear Waste Process Operator Dynamometer II 60.0 Lateral Pinch Strengh (lbs) 18.0 Comments Nuclear Waste Process Operator = within 1 SD below mean; Lateral Pinch = slightly below the mean Norms for 18-19 y.o. females Nuclear Waste Process Operator = 71.6 +/- 12.3 Lateral Pinch = 18.1 +/- 2.4
--- NOTE | 2018-12-29 11:45 | OT.OP.TRT ---
Visit Care Team Role Provider Type Marylou Peace Referring Provider Non-Staff Specialty: Physical Medicine and Rehab Address: [address] [place] [address], [id number] Email: Kirstin Parmar DO Attending Provider Physician Family Provider Primary Care Provider Specialty: Family Practice Address: [address] [place] [address], [id number] Email: [email or web address] Occupational Therapy Treatment Note OT Outpatient Treatment Note - Adult Start: 11/04/18 17:11 Freq: Status: Active Protocol: Document 12/29/18 11:32 AMS (Rec: 12/29/18 11:45 AMS [id number]) OT Outpatient Adult Treatment Note Session Time Visit Start Time 10:30 Visit Stop Time 11:15 Total Visit Minutes 45 Visit Information Plan of Care Dates 11/04/18-01/27/19 Insurance Information [employer]-Child Setting Treatment Setting Outpatient Care Visit Type Note Type Treatment Note General Information General Information Mona is a 17 year-old right hand dominant female referred to outpatient OT 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 Mona was accompanied by her Mother to initial evaluation; Mother reported that prior to surgery Mona had 'better information services consultant' and coordination of the L UE. PMH: significant for moderate intellectual disability, selective mutism, left hemianopsia, left sided weakness. - Subjective Identification Type Name Identification Reconciled With Medical Record Observations She is still having a hard time coming up with something that she would like to be able to do with that hand. I was thinking that she could work on being able to hold a letter with that hand so that she could tear it open. She used to be able to do that with that hand per Tatyana. Chief Complaint(s) Restricts Patient/Caregiver Compliance with Home Fair Exercise Program Comments w/ family support - Objective Objective Measurements Mona was seen 1:1 for OT treatment session. Able to open therapist's treatment room door x 2 trials w/ left hand w/ supervision and increased time; able to open horizontal drawer w/ left hand x 1 trial w/ supervision and increased time. Please refer to below for progress towards meeting established OT goals. Short Term Goals 1. Mona will be able to actively weight bear through the L UE (palm of hand) while standing at TT, x 1 minute, x 2 separate trials, while completing functional task with R UE, requiring maximum verbal and visual cues, and physical assistance from therapist with initial positioning of UE into weight bearing position at TT. 2. Mona will be able to actively weight shift L <-> R through the L UE (palm of hand ), while standing at TT, x 1 minute, x 2 separate trials, while completing functional task with the R UE, requiring maximum verbal and visual cues , and physical assistance from therapist with initial positioning of UE into weight bearing position at TT. 3. Mona will be able to demonstrate improved functional motor abilities of the left hand, as evidenced by ability to flip 8 out of 10 cards over with the left hand, at edge of tabletop requiring direct modeling and maximum verbal cues from therapist. = 25% met GOALS MET Bounced tennis ball across TT to therapist, 8/10 trials, w/ L hand, while seated, requiring CGA to mod phys A w/ initial grasp. *MET 12/22/18 Transferred item from lap -> L side of body w/ L UE seated, w/ active elbow ext and forearm sup,03/1010 trials, w/ min v.c. *MET 12/29/18 Sample Patternmaker Goals 1. Mona will be modified independent with execution of home exercise program with support of family utilizing provided written and visual instructions. 2. Mona will average 25.0 pounds of force with left information services consultant dynamometer strength testing. - Treatment 5 Descriptor Object manipulation - 1x10 per activity/exercise 2 Descriptor Eye-hand coordination L UE Exercises 1 Descriptor HEP. Reviewed treatment session w/ Mother. Recommended that Mona practice opening doors with the left hand in the home; practiced in treatment session and Mona was in agreement to carry-over into the home. Mother denied questions. - Assessment Patient Response to Treatment Fair Rehab Potential Fair Impairments Identified ADLs Balance Coordination/Dexterity Functional Activities Motor Function Weakness Posture Range of Motion Recreational Activities Meaningful Activities Motor Planning Assessment of Improvement Improving motor planning of L UE as evidenced by Mona meeting short term goal in this area demonstrating ability to combine elbow extension w/ forearm supination w/ object manipulation at below hip level while seated. Improving motor planning/functional abilities also evidenced by Mona's ability to open and close door w/ L hand/UE w/ support from therapist. Improving ability to sustain active extension of all digits at TT level w/ elbow flexion while seated x 3-4 trials consecutive without hand going into flexed position. Recommend that therapist continues to address attention to left side body of space, bimanual coordination activities, and motor abilities of L UE. Home Exercise Program Please refer to treatment section of note for specific details. Patient/Caregiver Understanding Good - Plan Therapy Recommendations Continue with Current Program Advance per Rehabilitation Protocol
--- NOTE | 2019-01-01 11:42 | OT.OP.TRT ---
Visit Care Team Role Provider Type Marylou Peace Referring Provider Non-Staff Specialty: Physical Medicine and Rehab Address: [address] [place] [address], [id number] Email: Kirstin Parmar DO Attending Provider Physician Family Provider Primary Care Provider Specialty: Family Practice Address: [address] [place] [address], [id number] Email: [email or web address] Occupational Therapy Treatment Note OT Outpatient Treatment Note - Adult Start: 11/04/18 17:11 Freq: Status: Active Protocol: Document 01/01/19 11:32 AMS (Rec: 01/01/19 11:42 AMS [id number]) OT Outpatient Adult Treatment Note Session Time Visit Start Time 10:30 Visit Stop Time 11:15 Total Visit Minutes 45 Visit Information Plan of Care Dates 11/04/18-01/27/19 Insurance Information [employer]-Child Setting Treatment Setting Outpatient Care Visit Type Note Type Treatment Note General Information General Information Mona is a 17 year-old right hand dominant female referred to outpatient OT 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 Mona was accompanied by her Mother to initial evaluation; Mother reported that prior to surgery Mona had 'better print line feeder' and coordination of the L UE. PMH: significant for moderate intellectual disability, selective mutism, left hemianopsia, left sided weakness. - Subjective Identification Type Name Identification Reconciled With Medical Record Observations She is still having a hard time coming up with something that she would like to be able to do with that hand. I was thinking that she could work on being able to tie her shoes per Tatyana. My mom per Mona in re: opening small packages. Chief Complaint(s) Restricts Patient/Caregiver Compliance with Home Fair Exercise Program Comments w/ family support - Objective Objective Measurements Mona was seen 1:1 for OT treatment session. Able to open therapist's treatment room door x 2 trials w/ left hand w/ supervision and increased time; able to open horizontal drawer w/ left hand x 1 trial w/ supervision and increased time. Please refer to below for progress towards meeting established OT goals. Short Term Goals 1. Mona will be able to actively weight bear through the L UE (palm of hand) while standing at TT, x 1 minute, x 2 separate trials, while completing functional task with R UE, requiring maximum verbal and visual cues, and physical assistance from therapist with initial positioning of UE into weight bearing position at TT. 2. Mona will be able to actively weight shift L <-> R through the L UE (palm of hand ), while standing at TT, x 1 minute, x 2 separate trials, while completing functional task with the R UE, requiring maximum verbal and visual cues , and physical assistance from therapist with initial positioning of UE into weight bearing position at TT. 3. Mona will demonstrate improved functional motor abilities of the left hand, based on self-report of ability to manage personal water bottle with the left hand (transportating water bottle from one location to the other within the home) on a daily basis with modified independence. 01/01/19= NEW GOAL 4. Mona will demonstrate improved functional motor abilities of the left hand, based on self-report of ability to open small food packets with active incorporation of the left hand on a daily basis with modified independence. 01/01/19 = NEW GOAL GOALS MET Bounced tennis ball across TT to therapist, 8/10 trials, w/ L hand seated, w/ CGA to mod phys A w/ initial grasp. *MET 12/22/18 Transferred item lap -> L side of body w/ L UE seated, w/ active elbow ext and forearm sup,03/1010 trials, w/ min v.c. *MET 12/29/18 Flipped 10/10 cards w/ L hand utilizing edge of TT, w/ min v .c. *MET 01/01/19 Mcfp Goals 1. Mona will be modified independent with execution of home exercise program with support of family utilizing provided written and visual instructions. 2. Mona will average 25.0 pounds of force with left print line feeder dynamometer strength testing. - Treatment 5 Descriptor Object manipulation - 1x10 per activity/exercise 2 Descriptor Eye-hand coordination L UE Exercises 1 Descriptor HEP. Reviewed treatment session w/ Mother. Recommended that Mona carry personal water bottle with the left hand within the home; practiced functional task in treatment session w/ bottle available to therapist. Mona in agreement to practice this functional activity (was provided 2 other choices). Mother denied questions. Complexity Upgraded - Assessment Patient Response to Treatment Fair Rehab Potential Fair Impairments Identified ADLs Balance Coordination/Dexterity Functional Activities Motor Function Weakness Posture Range of Motion Recreational Activities Meaningful Activities Motor Planning Assessment of Improvement Improving motor planning of L UE as evidenced by Mona meeting short term goal in this area. Improving motor planning/functional abilities also evidenced by Mona's report of ability to open and close door w/ the left hand/UE in the home. Upgraded HEP on this treatment date. Recommend focus on functional incorporation of UE. Recommend that therapist continues to address attention to left side body of space, bimanual coordination activities, and motor abilities of L UE. Home Exercise Program Please refer to treatment section of note for specific details. Patient/Caregiver Understanding Good - Plan Therapy Recommendations Continue with Current Program Advance per Rehabilitation Protocol
--- NOTE | 2019-01-05 12:13 | OT.OP.TRT ---
Visit Care Team Role Provider Type Marylou Peace Referring Provider Non-Staff Specialty: Physical Medicine and Rehab Address: [address] [place] [address], [id number] Email: Kirstin Parmar DO Attending Provider Physician Family Provider Primary Care Provider Specialty: Family Practice Address: [address] [place] [address], [id number] Email: [email or web address] Occupational Therapy Treatment Note OT Outpatient Treatment Note - Adult Start: 11/04/18 17:11 Freq: Status: Active Protocol: Document 01/05/19 12:02 AMS (Rec: 01/05/19 12:13 AMS [id number]) OT Outpatient Adult Treatment Note Session Time Visit Start Time 10:30 Visit Stop Time 11:15 Total Visit Minutes 45 Visit Information Plan of Care Dates 11/04/18-01/27/19 Insurance Information [employer]-Child Setting Treatment Setting Outpatient Care Visit Type Note Type Treatment Note General Information General Information Mona is a 17 year-old right hand dominant female referred to outpatient OT 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 Mona was accompanied by her Mother to initial evaluation; Mother reported that prior to surgery Mona had 'better centrifugal extractor operator' and coordination of the L UE. PMH: significant for moderate intellectual disability, selective mutism, left hemianopsia, left sided weakness. - Subjective Identification Type Name Identification Reconciled With Medical Record Observations Creamy per Mona in re: type of peanut butter she likes. Chief Complaint(s) Restricts Patient/Caregiver Compliance with Home Fair Exercise Program Comments w/ family support - Objective Objective Measurements Mona was seen 1:1 for OT treatment session. Able to flip over various sized coins x 10 trials w/ L hand WFL. Able to open therapist's treatment room door x 2 trials w/ left hand w/ supervision and increased time; able to open horizontal drawer w/ left hand x 1 trial w/ supervision and increased time. Please refer to below for progress towards meeting established OT goals. Short Term Goals 1. Mona will be able to actively weight bear through the L UE (palm of hand) while standing at TT, x 1 minute, x 2 separate trials, while completing functional task with R UE, requiring maximum verbal and visual cues, and physical assistance from therapist with initial positioning of UE into weight bearing position at TT. 2. Mona will be able to actively weight shift L <-> R through the L UE (palm of hand ), while standing at TT, x 1 minute, x 2 separate trials, while completing functional task with the R UE, requiring maximum verbal and visual cues , and physical assistance from therapist with initial positioning of UE into weight bearing position at TT. 3. Mona will demonstrate improved functional motor abilities of the left hand, based on self-report of ability to manage personal water bottle with the left hand (transportating water bottle from one location to the other within the home) on a daily basis with modified independence. 01/05/19= 25% met 4. Mona will demonstrate improved functional motor abilities of the left hand, based on self-report of ability to open small food packets with active incorporation of the left hand on a daily basis with modified independence. 01/05/19= 25% met GOALS MET Bounced tennis ball across TT to therapist, 8/10 trials, w/ L hand seated, w/ CGA to mod phys A w/ initial grasp. *MET 12/22/18 Transferred item lap -> L side of body w/ L UE seated, w/ active elbow ext and forearm sup,03/1010 trials, w/ min v.c. *MET 12/29/18 Flipped 10/10 cards w/ L hand utilizing edge of TT, w/ min v .c. *MET 01/01/19 [employer]ist Goals 1. Mona will be modified independent with execution of home exercise program with support of family utilizing provided written and visual instructions. 2. Mona will average 25.0 pounds of force with left centrifugal extractor operator dynamometer strength testing. - Treatment 5 Descriptor Object manipulation - 1x10 per activity/exercise 2 Descriptor Eye-hand coordination L UE Exercises 1 Descriptor HEP. Reviewed treatment session w/ Grandmother and Grandfather. Recommended that Mona continues to practice carrying personal water bottle with the left hand within the home; recommended attempting to open containers w/ the left hand as able (twist lids). Mona and grandparents denied questions. Complexity Upgraded - Assessment Patient Response to Treatment Fair Rehab Potential Fair Impairments Identified ADLs Balance Coordination/Dexterity Functional Activities Motor Function Weakness Posture Range of Motion Recreational Activities Meaningful Activities Motor Planning Assessment of Improvement Improving motor planning of L UE; this is evidenced by Mona's ability to flip over cards and various sized coins with the left hand utilizing the edge of the table. Mona was able to able to remove all resistant clothespins w/ the left hand from vertical dowel w/ the L hand. Mona did have difficulty spinning objects at TT in CW or CCW directions; she also had difficulty imitating piano keys on TT without object. Initiated removal of large lids from containers; able to complete x 2 reps w/ R hand stabilizing 1 trial w/ opening. Recommend working towards rotation of objects and in-hand manipulation as able. Recommend focus on functional incorporation of UE. Recommend that therapist continues to address attention to left side body of space, bimanual coordination activities, and motor abilities of L UE. Home Exercise Program Please refer to treatment section of note for specific details. Patient/Caregiver Understanding Good - Plan Therapy Recommendations Continue with Current Program Advance per Rehabilitation Protocol
--- NOTE | 2019-01-07 14:07 | OT.OP.TRT ---
Visit Care Team Role Provider Type Mraylou Peace Referring Provider Non-Staff Specialty: Physical Medicine and Rehab Address: [address] [place] [address], [id number] Email: Kirstin Parmar DO Attending Provider Physician Family Provider Primary Care Provider Specialty: Family Practice Address: [address] [place] [address], [id number] Email: [email or web address] Occupational Therapy Treatment Note OT Outpatient Treatment Note - Adult Start: 11/04/18 17:11 Freq: Status: Active Protocol: Document 01/07/19 13:49 AMS (Rec: 01/07/19 14:07 AMS [email or web address]) OT Outpatient Adult Treatment Note Session Time Visit Start Time 09:35 Visit Stop Time 10:20 Total Visit Minutes 45 Visit Information Plan of Care Dates 11/04/18-01/27/19 Insurance Information [employer]-Child Setting Treatment Setting Outpatient Care Visit Type Note Type Treatment Note General Information General Information Mona is a 17 year-old right hand dominant female referred to outpatient OT 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 Mona was accompanied by her Mother to initial evaluation; Mother reported that prior to surgery Mona had 'better necktie centralizing machine operator' and coordination of the L UE. PMH: significant for moderate intellectual disability, selective mutism, left hemianopsia, left sided weakness. - Subjective Identification Type Name Identification Reconciled With Medical Record Observations Marisol Field was in [employer] per Mona . Chief Complaint(s) Restricts Patient/Caregiver Compliance with Home Fair Exercise Program Comments w/ family support - Objective Objective Measurements Mona was seen 1:1 for OT treatment session. 01/07/19= Able to manage diff size buttons; able to remove and put utensils back into spa assistant manager utensil pascal. 01/05= Able to flip over various sized coins x 10 trials w/ L hand WFL. Able to open therapist's treatment room door x 2 trials w/ left hand w / supervision and increased time; able to open horizontal drawer w/ left hand x 1 trial w/ supervision and increased time. Please refer to below for progress towards meeting established OT goals. Short Term Goals 1. Mona will be able to actively weight bear through the L UE (palm of hand) while standing at TT, x 1 minute, x 2 separate trials, while completing functional task with R UE, requiring maximum verbal and visual cues, and physical assistance from therapist with initial positioning of UE into weight bearing position at TT. 2. Mona will be able to actively weight shift L <-> R through the L UE (palm of hand ), while standing at TT, x 1 minute, x 2 separate trials, while completing functional task with the R UE, requiring maximum verbal and visual cues , and physical assistance from therapist with initial positioning of UE into weight bearing position at TT. 3. Mona will demonstrate improved functional motor abilities of the left hand, based on self-report of ability to manage personal water bottle with the left hand (transportating water bottle from one location to the other within the home) on a daily basis with modified independence. 01/07/19= 25% met 4. Mona will demonstrate improved functional motor abilities of the left hand, based on self-report of ability to open small food packets with active incorporation of the left hand on a daily basis with modified independence. 01/05/19= 25% met GOALS MET Bounced tennis ball across TT to therapist, 8/10 trials, w/ L hand seated, w/ CGA to mod phys A w/ initial grasp. *MET 12/22/18 Transferred item lap -> L side of body w/ L UE seated, w/ active elbow ext and forearm sup,03/1010 trials, w/ min v.c. *MET 12/29/18 Flipped 10/10 cards w/ L hand utilizing edge of TT, w/ min v .c. *MET 01/01/19 Supervisor Line Department Goals 1. Mona will be modified independent with execution of home exercise program with support of family utilizing provided written and visual instructions. 2. Mona will average 25.0 pounds of force with left necktie centralizing machine operator dynamometer strength testing. - Treatment 5 Descriptor Object manipulation - 1x10 per activity/exercise Complexity Upgraded 2 Descriptor Eye-hand coordination L UE Exercises 1 Descriptor HEP. Reviewed treatment session w/ Mother. Recommended that Mona continues to utilize L UE in daily life, including playing 'war' based card game (flipped 10 cards per game up to 3 x per day). Also recommended functional incorporation of the L UE including managing self- feeding utensils with the L UE (removing from spa assistant manager and placing in silverware divider while seated w/ TT set-up). Practiced in treatment session and modeled environmental set -up for Mother. Mona and Mother denied questions. Complexity Upgraded - Assessment Patient Response to Treatment Fair Rehab Potential Fair Impairments Identified ADLs Balance Coordination/Dexterity Functional Activities Motor Function Weakness Posture Range of Motion Recreational Activities Meaningful Activities Motor Planning Assessment of Improvement Improving motor planning of L UE; this is evidenced by Mona's ability to different sized buttons with the left hand utilizing the edge of the table. Education completed with Mother in re: importance of functional incorporation of the L UE in daily life with various tasks. Education re: different methods to support functional incorporation. Recommend focus on functional incorporation of UE. Recommend that therapist continues to address attention to left side body of space, bimanual coordination activities, and motor abilities of L UE. Home Exercise Program Please refer to treatment section of note for specific details. Patient/Caregiver Understanding Good - Plan Therapy Recommendations Continue with Current Program Advance per Rehabilitation Protocol Additional Therapy Recommendations Recommend coordinating w/ PT.
--- NOTE | 2019-01-13 15:43 | OT.OP.TRT ---
Visit Care Team Role Provider Type Marylou Peace Referring Provider Non-Staff Specialty: Physical Medicine and Rehab Address: [address] [place] [address], [address] Email: Kirstin Parmar DO Attending Provider Physician Family Provider Primary Care Provider Specialty: Family Practice Address: [address] [place] [address], [id number] Email: [email or web address] Occupational Therapy Treatment Note OT Outpatient Treatment Note - Adult Start: 11/04/18 17:11 Freq: Status: Active Protocol: Document 01/13/19 15:22 AMS (Rec: 01/13/19 15:42 AMS [email or web address]) OT Outpatient Adult Treatment Note Session Time Visit Start Time 14:30 Visit Stop Time 15:18 Total Visit Minutes 48 Visit Information Plan of Care Dates 11/04/18-01/27/19 Insurance Information [employer]-Child Setting Treatment Setting Outpatient Care Visit Type Note Type Treatment Note General Information General Information Mona is a 17 year-old right hand dominant female referred to outpatient OT 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 Mona was accompanied by her Mother to initial evaluation; Mother reported that prior to surgery Mona had 'better embroidery cutter' and coordination of the L UE. PMH: significant for moderate intellectual disability, selective mutism, left hemianopsia, left sided weakness. - Subjective Identification Type Name Identification Reconciled With Medical Record Observations Yes per Mona in re: question of whether or not she is using her left hand. She has been doing the coffee little cups with that hand. She has also been putting the silverware away with that hand . She has been mostly been doing her [LB dressing] with that hand. Chief Complaint(s) Restricts Patient/Caregiver Compliance with Home Fair Exercise Program Comments w/ family support - Objective Objective Measurements Mona was seen 1:1 for OT treatment session. 01/07/19= Able to manage diff size buttons; able to remove and put utensils back into operating room nurse utensil pascal. 01/05= Able to flip over various sized coins x 10 trials w/ L hand WFL. Able to open therapist's treatment room door x 2 trials w/ left hand w / supervision and increased time; able to open horizontal drawer w/ left hand x 1 trial w/ supervision and increased time. Please refer to below for progress towards meeting established OT goals. Short Term Goals 1. Mona will be able to actively weight bear through the L UE (palm of hand) while standing at TT, x 1 minute, x 2 separate trials, while completing functional task with R UE, requiring maximum verbal and visual cues, and physical assistance from therapist with initial positioning of UE into weight bearing position at TT. 2. Mona will be able to actively weight shift L <-> R through the L UE (palm of hand ), while standing at TT, x 1 minute, x 2 separate trials, while completing functional task with the R UE, requiring maximum verbal and visual cues , and physical assistance from therapist with initial positioning of UE into weight bearing position at TT. 3. Mona will demonstrate improved functional motor abilities of the left hand, based on self-report of ability to manage personal water bottle with the left hand (transportating water bottle from one location to the other within the home) on a daily basis with modified independence. 01/07/19= 25% met 4. Mona will demonstrate improved functional motor abilities of the left hand, based on self-report of ability to open small food packets with active incorporation of the left hand on a daily basis with modified independence. 01/05/19= 25% met GOALS MET Bounced tennis ball across TT to therapist, 8/10 trials, w/ L hand seated, w/ CGA to mod phys A w/ initial grasp. *MET 12/22/18 Transferred item lap -> L side of body w/ L UE seated, w/ active elbow ext and forearm sup,03/1010 trials, w/ min v.c. *MET 12/29/18 Flipped 10/10 cards w/ L hand utilizing edge of TT, w/ min v .c. *MET 01/01/19 Half-Way Goals 1. Mona will be modified independent with execution of home exercise program with support of family utilizing provided written and visual instructions. 2. Mona will average 25.0 pounds of force with left embroidery cutter dynamometer strength testing. - Treatment 5 Descriptor Object manipulation - 1x10 per activity/exercise Complexity Upgraded 2 Descriptor Eye-hand coordination L UE Complexity Upgraded Exercises 1 Descriptor HEP. Reviewed treatment session w/ Mother. Recommended that Mona continues to utilize L UE in daily life, including flipping pages of personal magazines; demonstrated in treatment session w/ Mother present towards end of session. In agreement w/ Mother in re: Mona utilizing the L hand/UE w/ light house management. Mona and Mother denied questions. Complexity Upgraded - Assessment Patient Response to Treatment Fair Rehab Potential Fair Impairments Identified ADLs Balance Coordination/Dexterity Functional Activities Motor Function Weakness Posture Range of Motion Recreational Activities Meaningful Activities Motor Planning Assessment of Improvement Mona is presenting with improving functional abilities of the left hand. This is evidenced by Mona's ability to complete the 9-Hole Peg Test with the left hand despite increased time required, as well as Mona's Mother's report of increased functional incorporation of the left hand in daily life. Results of the 9-Hole Peg test indicate that Mona's dominant and non-dominant fine motor skills are impaired/ decreased compared to her same -aged female peers. Mona however, is likely able to more than what she is currently completing with the left hand/upper extremity in the home environment. Recommend continued outpatient focus on functional incorporation of UE in treatment session. Recommend that therapist continues to address attention to left side body of space, bimanual coordination activities, and motor abilities of L UE. Home Exercise Program Please refer to treatment section of note for specific details. Patient/Caregiver Understanding Good - Plan Therapy Recommendations Continue with Current Program Advance per Rehabilitation Protocol Occupational Therapy Assessment OT Outpatient Standardized Assessments Start: 12/25/18 14:01 Freq: Status: Active Protocol: Document 01/13/19 15:22 AMS (Rec: 01/13/19 15:42 AMS [email or web address]) 9-Hole Peg Hand Test Hand Left Date of Test 01/13/19 Therapist ANGELIA Acosta Interpretation Impaired Norm For Patients Age/Sex Females 18-19 years of age = 17.4 +/- 2.0 Comments Scoring Time: 4 min 55 seconds Right Date of Test 01/13/19 Therapist ANGELIA Acosta Interpretation Impaired Norm For Patients Age/Sex Females 18-19 years of age = 16.1 +/- 2.1 Comments Scoring Time = 29.0 seconds
--- NOTE | 2019-01-16 15:16 | OT.OP.TRT ---
Visit Care Team Role Provider Type Marylou Peace Referring Provider Non-Staff Specialty: Physical Medicine and Rehab Address: [address] [place] [address], [address] Email: Kirstin Parmar DO Attending Provider Physician Family Provider Primary Care Provider Specialty: Family Practice Address: [address] [place] [address], [address] Email: [email or web address] Occupational Therapy Treatment Note OT Outpatient Treatment Note - Adult Start: 11/04/18 17:11 Freq: Status: Active Protocol: Document 01/16/19 15:09 AMS (Rec: 01/16/19 15:16 AMS [email or web address]) OT Outpatient Adult Treatment Note Session Time Visit Start Time 13:45 Visit Stop Time 14:30 Total Visit Minutes 45 Visit Information Plan of Care Dates 11/04/18-01/27/19 Insurance Information [employer]-Child Setting Treatment Setting Outpatient Care Visit Type Note Type Treatment Note General Information General Information Mona is a 17 year-old right hand dominant female referred to outpatient OT 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 Mona was accompanied by her Mother to initial evaluation; Mother reported that prior to surgery Mona had 'better trouble locater' and coordination of the L UE. PMH: significant for moderate intellectual disability, selective mutism, left hemianopsia, left sided weakness. - Subjective Identification Type Name Identification Reconciled With Medical Record Observations Yes per Mona in re: question of whether or not she is using her left hand with managing a water bottle. Chief Complaint(s) Restricts Patient/Caregiver Compliance with Home Fair Exercise Program Comments w/ family support - Objective Objective Measurements Mona was seen 1:1 for OT treatment session. 01/07/19= Able to manage diff size buttons; able to remove and put utensils back into helmet coverer utensil pascal. 01/05= Able to flip over various sized coins x 10 trials w/ L hand WFL. Able to open therapist's treatment room door x 2 trials w/ left hand w / supervision and increased time; able to open horizontal drawer w/ left hand x 1 trial w/ supervision and increased time. Please refer to below for progress towards meeting established OT goals. Short Term Goals 1. Mona will be able to actively weight bear through the L UE (palm of hand) while standing at TT, x 1 minute, x 2 separate trials, while completing functional task with R UE, requiring maximum verbal and visual cues, and physical assistance from therapist with initial positioning of UE into weight bearing position at TT. 2. Mona will be able to actively weight shift L <-> R through the L UE (palm of hand ), while standing at TT, x 1 minute, x 2 separate trials, while completing functional task with the R UE, requiring maximum verbal and visual cues , and physical assistance from therapist with initial positioning of UE into weight bearing position at TT. 3. Mona will demonstrate improved functional motor abilities of the left hand, based on self-report of ability to manage personal water bottle with the left hand (transportating water bottle from one location to the other within the home) on a daily basis with modified independence. 01/16/19= 75% met 4. Mona will demonstrate improved functional motor abilities of the left hand, based on self-report of ability to open small food packets with active incorporation of the left hand on a daily basis with modified independence. 01/05/19= 25% met GOALS MET Bounced tennis ball across TT to therapist, 8/10 trials, w/ L hand seated, w/ CGA to mod phys A w/ initial grasp. *MET 12/22/18 Transferred item lap -> L side of body w/ L UE seated, w/ active elbow ext and forearm sup,03/1010 trials, w/ min v.c. *MET 12/29/18 Flipped 10/10 cards w/ L hand utilizing edge of TT, w/ min v .c. *MET 01/01/19 Penitentiary Goals 1. Mona will be modified independent with execution of home exercise program with support of family utilizing provided written and visual instructions. 2. Mona will average 25.0 pounds of force with left trouble locater dynamometer strength testing. - Treatment 5 Descriptor Object manipulation - 1x10 per activity/exercise Complexity Upgraded 4 Descriptor Bimanual coordination Folding washcloths/small hand towels; stabilizing paper for simple cutting 2 Descriptor Eye-hand coordination L UE Complexity Upgraded Exercises 1 Descriptor HEP. Reviewed treatment session w/ Mother. Recommended that Mona continues to utilize L UE in daily life, including folding basic laundry with active incorporation of the L UE ( hand) (e.g., wash cloths, small hand towels). Also recommended cueing to support extension of L UE by her side to replicate functional arm movement/availability for active incorporation. Mona and Mother denied questions. Complexity Upgraded - Assessment Patient Response to Treatment Fair Rehab Potential Fair Impairments Identified ADLs Balance Coordination/Dexterity Functional Activities Motor Function Weakness Posture Range of Motion Recreational Activities Meaningful Activities Motor Planning Assessment of Improvement Mona is presenting with improving functional abilities of the left hand. Mona demonstrated ability to change pillow case, complete simple laundry folding, stabilize paper for simple scissoring tasks with active incorporation of the left UE/ hand. Mona was able to isolate left second digit with palm resting on table > 10 times with increased effort. Based on observations, Mona is likely able to utilize the left hand/upper extremity more in the home environment than she currently is. Recommend continued outpatient focus on functional incorporation of UE in treatment session. Recommend that therapist continues to address attention to left side body of space, bimanual coordination activities, and motor abilities of L UE. Recommend completing re-evaluation based on coming up on end of plan of care. Home Exercise Program Please refer to treatment section of note for specific details. Patient/Caregiver Understanding Good - Plan Therapy Recommendations Continue with Current Program Advance per Rehabilitation Protocol
--- NOTE | 2019-01-28 15:33 | OT.OP.REEVAL ---
Visit Care Team Role Provider Type Marylou Peace Referring Provider Non-Staff Address: [address] [place] [address], [id number] Email: Kirstin Parmar DO Attending Provider Physician Family Provider Primary Care Provider Address: [address] [place] [address], [id number] Email: [email or web address] OT Outpatient OT Outpatient Adult Evaluation Start: 11/04/18 17:11 Freq: Status: Active Protocol: Document 11/04/18 17:12 AMS (Rec: 11/04/18 17:28 AMS [email or web address]) General Information Session Time Visit Start Time 12:30 Visit Stop Time 13:15 Total Visit Minutes 45 Visit Information Plan of Care Dates 11/04/18-01/27/19 Insurance Information [employer]-Child Visit Type Note Type Initial Evaluation Identification Identification Confirmed Yes Identification Confirmed By Mother Medical Information Medical History Per chart review: Mona is a 17 year-old right hand dominant girl with h/o intractable seizures and 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 Seizures resumed s/p procedure. 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 PMH: significant for moderate intellectual disability, selective mutism, left hemianopsia, left sided weakness. ADLs Overall Ability Comments Impaired; mod I w/ UB/LB dressing per Mother Goals Objective Measurements Objective Measurements Impaired sensation of the L UE ; protective behaviors of L UE ('hiding hand/UE in sleeve of long sleeved shirt'); decreased initiation and ability to follow multi-step directions; decreased volitional motor coordination of L UE; tendency into flexion pattern w/ hand; L elbow flexion/extension WFL w/ environmental modifications to support; L forearm pronation WFL; PROM of L UE observed to be overhead w/ use of pulleys; decreased AROM of L wrist; minimal active L forearm supination; decreased active sh ROM; unable to complete formal ROM testing of L UE; R UE AROM WFL observed w/ functional movements; decreased functional independence. Treatment Treatment Education re: protective behaviors and use of clothing. Mother and daughter denied questions. Short Term Goals Short Term Goals 1. Mona will be able to actively weight bear through the L UE (palm of hand) while standing at TT, x 1 minute, x 2 separate trials, while completing functional task with R UE, requiring maximum verbal and visual cues, and physical assistance from therapist with initial positioning of UE into weight bearing position at TT. 2. Mona will be able to actively weight shift L <-> R through the L UE (palm of hand ), while standing at TT, x 1 minute, x 2 separate trials, while completing functional task with the R UE, requiring maximum verbal and visual cues , and physical assistance from therapist with initial positioning of UE into weight bearing position at TT. 3. Mona will be able to successfully transfer item from lap to left side of body with the L UE while seated, demonstrating active elbow extension and forearm supination, 8 out of 10 trials , requiring maximum physical assistance with initial grasp of object and maximum verbal and visual cues from therapist . Human Resource Assistant Goals Skilled Nursing Goals 1. Mona will be modified independent with execution of home exercise program with support of family utilizing provided written and visual instructions. 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 Mona was accompanied by her Mother to initial evaluation; Mother reported that prior to surgery Mona had 'better public information relations manager' and coordination of the L UE. PMH: significant for moderate intellectual disability, selective mutism, left hemianopsia, left sided weakness. PLOF: Per Mother, Mona was independent w/ BADLS and was actively involved in program through the high school. Program was 3 days per week, Saturday, Saturday and , from 9:00 to 1:00. Job and life skills were being addressed in the program. Mother reported that Mona would return to the program the following week. Evaluation findings: Impaired sensation of the L UE; protective behaviors of L UE ( 'hiding hand/UE in sleeve of long sleeved shirt'); selective mutism; decreased initiation and ability to follow multi-step directions; decreased volitional motor coordination of L UE; tendency into flexion pattern w/ hand; L elbow flexion/extension WFL w/ environmental modifications to support; L forearm pronation WFL; PROM of L UE observed to be overhead w/ use of pulleys; decreased AROM of L wrist; minimal active L forearm supination; decreased active sh ROM; unable to complete formal ROM testing of L UE; R UE AROM WFL observed w/ functional movements; decreased functional independence. Outpatient OT is recommended to address these areas in order to maximize Mona's success in day-to-day life w/ active participation in meaningful activities. Home Exercise Program Please refer to treatment section of note for specific details. Reviewed with Patient Goals Progress Being Made Home Exercise Program Patient Understanding Fair Plan Comment 12 weeks Comment 1-2 times per week Therapeutic Contents Active Range of Motion Adaptive Equipment Education Client Education Cognitive Skills Development Functional Activities Home Exercise Program Joint Protection Manual Therapy Education Neurodevelopment Treatment Neuromuscular Re-Education Self-Care Stretching/Flexibility Activities Therapeutic Activities Therapeutic Exercises Modalities Sensory Re-education Modalities As Needed As Prescribed Types of Modalities E-Stim Functional Stimulation (FES) T.E.N. Stimulation TENS Placement/Application Additional Types of Modalities Heat/Cold Patient Instruction Home Exercise Program Plan of Care Questions/Concerns Sensory Assessment Sensory Profile2 Functional Wrist/Hand Scan Hand Side OT Outpatient Muscle Testing Start: 12/25/18 14:01 Freq: Status: Active Protocol: Document 01/28/19 14:14 AMS (Rec: 01/28/19 14:26 AMS [email or web address]) Pony Edger/Hand Strength Pony Edger/Hand Strength Left Pony Edger Dynamometer II 18.7 Lateral Pinch Strengh (lbs) 10.3 Comments Pony Edger = > 3 SD below mean; Lateral Pinch = > 2 SD below the mean Norms for 18-19 y.o. females Pony Edger = 61.7 +/- 12.5 Lateral Pinch = 17.2 +/- 2.5 Right Pony Edger Dynamometer II 60.0 Lateral Pinch Strengh (lbs) 18.0 Comments Pony Edger = within 1 SD below mean; Lateral Pinch = slightly below the mean Norms for 18-19 y.o. females Pony Edger = 71.6 +/- 12.3 Lateral Pinch = 18.1 +/- 2.4 OT Outpatient Treatment Note - Adult Start: 11/04/18 17:11 Freq: Status: Active Protocol: Document 01/28/19 14:14 AMS (Rec: 01/28/19 14:26 AMS [email or web address]) OT Outpatient Adult Treatment Note Session Time Visit Start Time 12:30 Visit Stop Time 13:20 Total Visit Minutes 50 Visit Information Plan of Care Dates 01/27/19-04/21/19 Insurance Information [employer]-Child Setting Treatment Setting Outpatient Care Visit Type Note Type Re-Evaluation General Information General Information Mona is a 17 year-old right hand dominant female referred to outpatient OT 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 Mona was accompanied by her Mother to initial evaluation; Mother reported that prior to surgery Mona had 'better public information relations manager' and coordination of the L UE. PMH: significant for moderate intellectual disability, selective mutism, left hemianopsia, left sided weakness. - Subjective Identification Type Name Identification Reconciled With Medical Record Observations Yes per Mona in re: question of whether or not she is using her left hand with managing a water bottle. She has a WAD PRINTING MACHINE OPERATOR evaluation in 3 weeks in [place]. They are going to be looking at selective mutism per Mother. Chief Complaint(s) Restricts Patient/Caregiver Compliance with Home Fair Exercise Program Comments w/ family support - Objective Objective Measurements Mona was seen 1:1 for OT treatment session. 01/07/19= Able to manage diff size buttons; able to remove and put utensils back into shellfish sorter utensil pascal. 01/05= Able to flip over various sized coins x 10 trials w/ L hand WFL. Able to open therapist's treatment room door x 2 trials w/ left hand w / supervision and increased time; able to open horizontal drawer w/ left hand x 1 trial w/ supervision and increased time. Please refer to below for progress towards meeting established OT goals. Short Term Goals 1. Mona will be able to actively weight bear through the L UE (palm of hand) while standing at TT, x 1 minute, x 2 separate trials, while completing functional task with R UE, requiring maximum verbal and visual cues, and physical assistance from therapist with initial positioning of UE into weight bearing position at TT. = NOT A FOCUS 2. Mona will be able to actively weight shift L <-> R through the L UE (palm of hand ), while standing at TT, x 1 minute, x 2 separate trials, while completing functional task with the R UE, requiring maximum verbal and visual cues , and physical assistance from therapist. 01/28/19 = NOT A FOCUS 3. Mona will demonstrate improved functional motor abilities of the left hand, based on self-report of ability to open small food packets with active incorporation of the left hand on a daily basis with modified independence. 01/05/19= 25% met GOALS MET Bounced tennis ball across TT to therapist, 8/10 trials, w/ L hand seated, w/ CGA to mod phys A w/ initial grasp. *MET 12/22/18 Transferred item lap -> L of body w/ L UE seated, w/ active elbow ext and forearm sup, 9/ 10 trials, w/ min v.c. *MET Flipped 10/10 cards w/ L hand utilizing edge of TT, w/ min v .c. *MET 01/01/19 Managing personal water bottle with L hand within home on daily basis w/ mod I. *MET Human Resource Assistant Goals 1. Mona will be modified independent with execution of home exercise program with support of family utilizing provided written and visual instructions. 2. Mona will average 25.0 pounds of force with left public information relations manager dynamometer strength testing. - Treatment 6 Descriptor Attention to left side of space/left body of space Complexity Upgraded 5 Descriptor Object manipulation - 1x10 per activity/exercise [place]; sticky notes; medium/ large pegs w/ pegboard Complexity Upgraded 4 Descriptor Bimanual coordination Complexity Upgraded 2 Descriptor Eye-hand coordination L UE Complexity Upgraded Exercises 1 Descriptor HEP. Reviewed treatment session w/ Mother. Recommended that Mona continues to utilize L UE in daily life with active engagement in a variety of activities. Mother reported that Mona has been reluctant to carry-over activites/skills to the home environment. Recommend continuing to involve Mona w / identifying activities to in order to support carry-over. Recommend collaborating with PT as well/WAD PRINTING MACHINE OPERATOR s/p [place] evaluation. Mona and Mother denied questions. - Assessment Patient Response to Treatment Fair Rehab Potential Fair Impairments Identified ADLs Balance Coordination/Dexterity Functional Activities Motor Function Weakness Posture Range of Motion Recreational Activities Meaningful Activities Motor Planning Assessment of Overall Progress Improving Assessment of Improvement Mona has demonstrated progress over the last certification period relative to her left upper extremity; she is demonstrating improving functional abilities of the left hand/UE, improving eye- hand coordination and motor planning of the left upper extremity. This is evidenced by Mona meeting goals in these areas. For example, Mona is able to actively manage her personal water bottle in the home with the left hand/upper extremity based self-report. Despite progress, Mona is reportedly reluctant to utilize her left upper extremity/hand in the home per Mother's report. Outpatient OT is recommended to address functional abilities of the left upper extremity. Recommend that therapist continues to address attention to left side body of space, bimanual coordination activities, and motor abilities of L UE. Home Exercise Program Please refer to treatment section of note for specific details. Patient/Caregiver Understanding Good - Plan Therapy Recommendations Continue with Current Program Advance per Rehabilitation Protocol Comment 12 weeks Comment 1-2 x per week Therapeutic Contents Active Range of Motion Adaptive Equipment Education Client Education Cognitive Skills Development Functional Activities Home Exercise Program Joint Protection Manual Therapy Education Neurodevelopment Treatment Neuromuscular Re-Education Self-Care Stretching/Flexibility Activities Therapeutic Activities Therapeutic Exercises Modalities Sensory Re-education Modalities As Needed As Prescribed
--- NOTE | 2019-01-30 11:49 | OT.OP.TRT ---
Visit Care Team Role Provider Type Marylou Peace Referring Provider Non-Staff Specialty: Physical Medicine and Rehab Address: [address] [place] [address], [id number] Email: Kirstin Parmar DO Attending Provider Physician Family Provider Primary Care Provider Specialty: Family Practice Address: [address] [place] [address], [address] Email: [email or web address] Occupational Therapy Treatment Note OT Outpatient Treatment Note - Adult Start: 11/04/18 17:11 Freq: Status: Active Protocol: Document 01/30/19 11:35 AMS (Rec: 01/30/19 11:49 AMS [email or web address]) OT Outpatient Adult Treatment Note Session Time Visit Start Time 09:30 Visit Stop Time 10:20 Total Visit Minutes 50 Visit Information Plan of Care Dates 01/27/19-04/21/19 Insurance Information [employer]-Child Setting Treatment Setting Outpatient Care Visit Type Note Type Treatment Note General Information General Information Mona is a 17 year-old right hand dominant female referred to outpatient OT 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 Mona was accompanied by her Mother to initial evaluation; Mother reported that prior to surgery Mona had 'better radio personality' and coordination of the L UE. PMH: significant for moderate intellectual disability, selective mutism, left hemianopsia, left sided weakness. - Subjective Identification Type Name Identification Reconciled With Medical Record Observations Yes, I go on the computer. I listen to utube per Mona. I have a brain scan on February 12 so I will have to cancel her appointment on that date per Mother. Chief Complaint(s) Restricts Patient/Caregiver Compliance with Home Fair Exercise Program Comments w/ family support - Objective Objective Measurements Mona was seen 1:1 for OT treatment session. 01/07/19= Able to manage diff size buttons; able to remove and put utensils back into dev manager utensil [place]. 01/05= Able to flip over various sized coins x 10 trials w/ L hand WFL. Able to open therapist's treatment room door x 2 trials w/ left hand w / supervision and increased time; able to open horizontal drawer w/ left hand x 1 trial w/ supervision and increased time. Please refer to below for progress towards meeting established OT goals. Short Term Goals 1. Mona will be able to actively weight bear through the L UE (palm of hand) while standing at TT, x 1 minute, x 2 separate trials, while completing functional task with R UE, requiring maximum verbal and visual cues, and physical assistance from therapist with initial positioning of UE into weight bearing position at TT. = NOT A FOCUS 2. Mona will be able to actively weight shift L <-> R through the L UE (palm of hand ), while standing at TT, x 1 minute, x 2 separate trials, while completing functional task with the R UE, requiring maximum verbal and visual cues , and physical assistance from therapist. 01/28/19 = NOT A FOCUS 3. Mona will demonstrate improved functional motor abilities of the left hand, based on self-report of ability to open small food packets with active incorporation of the left hand on a daily basis with modified independence. 01/05/19= 25% met GOALS MET Bounced tennis ball across TT to therapist, 8/10 trials, w/ L hand seated, w/ CGA to mod phys A w/ initial grasp. *MET 12/22/18 Transferred item lap -> L of body w/ L UE seated, w/ active elbow ext and forearm sup, 9/ 10 trials, w/ min v.c. *MET Flipped 10/10 cards w/ L hand utilizing edge of TT, w/ min v .c. *MET 01/01/19 Managing personal water bottle with L hand within home on daily basis w/ mod I. *MET Penitentiary Goals 1. Mona will be modified independent with execution of home exercise program with support of family utilizing provided written and visual instructions. 2. Mona will average 25.0 pounds of force with left radio personality dynamometer strength testing. - Treatment 6 Descriptor Attention to left side of space/left body of space 5 Descriptor Object manipulation - 1x10 per activity/exercise Medium-sized rings/tree; keyboard (typed Opal Munoz) w/ L hand only; medium cones; small cones; bowls Complexity Upgraded 4 Descriptor Bimanual coordination 2 Descriptor Eye-hand coordination L UE Complexity Upgraded Exercises 1 Descriptor HEP. Reviewed treatment session w/ Mother. Recommended that Mona continues to utilize L UE in daily life with active engagement in a variety of activities. Given reluctance to carry-over ( based on Mother's report), typed list was created in collaboration w/ Mona to identify activities that she would be willing to complete in the home with the left hand . List was provided to Mother and placed in paper chart for future reference. Complexity Upgraded - Assessment Patient Response to Treatment Fair Rehab Potential Fair Impairments Identified ADLs Balance Coordination/Dexterity Functional Activities Motor Function Weakness Posture Range of Motion Recreational Activities Meaningful Activities Motor Planning Assessment of Overall Progress Improving Assessment of Improvement Improving motor abilities of the left upper extremity; this is evidenced by increased speed and efficiency w/ manipulation of various sized cones and medium sized bowls. Decreased ability to execute more dynamic grasp patterns with the left hand noted w/ game play; unable to isolate pincer grasp for smaller object manipulation (<1/4-inch in size). Unable to utilize compensatory strategies given size/shape of objects to be manipulated. Increased time/ effort w/ isolation of 2nd digit required for keyboard task; however, Mona verbalized willingness to carry-over this activity given that she watches [employer] videos on daily basis. Outpatient OT is recommended to address functional abilities of the left upper extremity. Recommend that therapist continues to address attention to left side body of space, bimanual coordination activities, and motor abilities of L UE. Home Exercise Program Please refer to treatment section of note for specific details. Patient/Caregiver Understanding Good - Plan Therapy Recommendations Continue with Current Program Advance per Rehabilitation Protocol
--- NOTE | 2019-02-02 11:41 | OT.OP.TRT ---
Visit Care Team Role Provider Type Marylou Peace Referring Provider Non-Staff Specialty: Physical Medicine and Rehab Address: [address] [place] [address], [id number] Email: Kirstin Parmar DO Attending Provider Physician Family Provider Primary Care Provider Specialty: Family Practice Address: [address] [place] [address], [id number] Email: [email or web address] Occupational Therapy Treatment Note OT Outpatient Treatment Note - Adult Start: 11/04/18 17:11 Freq: Status: Active Protocol: Document 02/02/19 11:20 AMS (Rec: 02/02/19 11:40 AMS [id number]) OT Outpatient Adult Treatment Note Session Time Visit Start Time 10:30 Visit Stop Time 11:17 Total Visit Minutes 47 Visit Information Plan of Care Dates 01/27/19-04/21/19 Insurance Information [employer]-Child Setting Treatment Setting Outpatient Care Visit Type Note Type Treatment Note General Information General Information Mona is a 17 year-old right hand dominant female referred to outpatient OT 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 Mona was accompanied by her Mother to initial evaluation; Mother reported that prior to surgery Mona had 'better home lighting adviser' and coordination of the L UE. PMH: significant for moderate intellectual disability, selective mutism, left hemianopsia, left sided weakness. - Subjective Identification Type Name Identification Reconciled With Medical Record Observations Mona nodded 'yes' in re: practicing typing 'Kita' into computer. I'm not sure per Mona. Chief Complaint(s) Restricts Patient/Caregiver Compliance with Home Fair Exercise Program Comments w/ family support - Objective Objective Measurements Mona was seen 1:1 for OT treatment session. 02/02/19= unable to tie shoe laces ( including inability to tie w/ 1 hand). 01/07/19= Able to manage diff size buttons; able to remove and put utensils back into geek squad agent utensil pascal. 01/05/19= Able to flip over various sized coins x 10 trials w/ L hand WFL. Able to open therapist's treatment room door x 2 trials w/ left hand w/ supervision and increased time; able to open horizontal drawer w/ left hand x 1 trial w/ supervision and increased time. Please refer to below for progress towards meeting established OT goals. Short Term Goals 1. Mona will be able to actively weight bear through the L UE (palm of hand) while standing at TT, x 1 minute, x 2 separate trials, while completing functional task with R UE, requiring maximum verbal and visual cues, and physical assistance from therapist with initial positioning of UE into weight bearing position at TT. = NOT A FOCUS 2. Mona will be able to actively weight shift L <-> R through the L UE (palm of hand ), while standing at TT, x 1 minute, x 2 separate trials, while completing functional task with the R UE, requiring maximum verbal and visual cues , and physical assistance from therapist. 01/28/19 = NOT A FOCUS 3. Mona will demonstrate improved functional motor abilities of the left hand, based on self-report of ability to open small food packets with active incorporation of the left hand on a daily basis with modified independence. 01/05/19= 25% met 4. Mona will be able to execute double knot 4 out of 5 trials with tying of personal shoe laces, utilizing compensatory strategies, requiring minimal verbal and visual cues from therapist. GOALS MET Bounced tennis ball across TT to therapist, 8/10 trials, w/ L hand seated, w/ CGA to mod phys A w/ initial grasp. *MET 12/22/18 Transferred item lap -> L of body w/ L UE seated, w/ active elbow ext and forearm sup, 9/ 10 trials, w/ min v.c. *MET Flipped 10/10 cards w/ L hand utilizing edge of TT, w/ min v .c. *MET 01/01/19 Managing personal water bottle with L hand within home on daily basis w/ mod I. *MET Halfway Goals 1. Mona will be modified independent with execution of home exercise program with support of family utilizing provided written and visual instructions. 2. Mona will average 25.0 pounds of force with left home lighting adviser dynamometer strength testing. - Treatment 7 Descriptor Self-care Double knot (use of box w/ 2 different colored shoe laces); Min assist from L hand w/ task completion Complexity Upgraded 6 Descriptor Attention to left side of space/left body of space 5 Descriptor Object manipulation - 1x10 per activity/exercise Medium sized paper cuts; get-a -home lighting adviser (removal); placing markers in medium sized paper cup; in-hand manipulation ( initiated translation - fingertips -> palm) 4 Descriptor Bimanual coordination 2 Descriptor Eye-hand coordination L UE Complexity Upgraded 1 Descriptor Fine motor coordination Opposition; number isolation of digits Exercises 1 Descriptor HEP. Reviewed treatment session w/ Mother. Recommended that Mona continues to utilize L UE in daily life with active engagement in a variety of activities. No additional changes to HEP at this time. - Assessment Patient Response to Treatment Fair Rehab Potential Fair Impairments Identified ADLs Balance Coordination/Dexterity Functional Activities Motor Function Weakness Posture Range of Motion Recreational Activities Meaningful Activities Motor Planning Assessment of Overall Progress Improving Assessment of Improvement Improving ability to isolate pincer grasp w/ vertical positioning of object, as noted w/ small clothespins w/ max v.c. Impaired in-hand manipulation abilities; max difficulty w/ translation of objects. Impaired motor coordination of thumb; impaired opposition of thumb. Able to oppose 1-4 w/ increased effort; phys assist for opposition to 5th digit pad. Poor isolation of digits observed w/ opposition. Decreased active extension of digits (noted w/ active wrist/ digit extension at TT). Initiated shoe tying; backwards chaining approach w/ 2-colored shoe laces w/ box; min phys assist provided by L hand. Outpatient OT is recommended to address functional abilities of the left upper extremity. Recommend that therapist continues to address attention to left side body of space, bimanual coordination activities, and motor abilities of L UE. Home Exercise Program Please refer to treatment section of note for specific details. Patient/Caregiver Understanding Good - Plan Therapy Recommendations Continue with Current Program Advance per Rehabilitation Protocol
--- NOTE | 2019-02-06 15:57 | OT.OP.TRT ---
Visit Care Team Role Provider Type Marylou Peace Referring Provider Non-Staff Specialty: Physical Medicine and Rehab Address: [address] [place] [address], [id number] Email: Kirstin Parmar DO Attending Provider Physician Family Provider Primary Care Provider Specialty: Family Practice Address: [address] [place] [address], [id number] Email: [email or web address] Occupational Therapy Treatment Note OT Outpatient Treatment Note - Adult Start: 11/04/18 17:11 Freq: Status: Active Protocol: Document 02/06/19 15:37 AMS (Rec: 02/06/19 15:57 [facility]MS [email or web address]) OT Outpatient Adult Treatment Note Session Time Visit Start Time 12:30 Visit Stop Time 13:18 Total Visit Minutes 48 Visit Information Plan of Care Dates 01/27/19-04/21/19 Insurance Information [employer]-Child Setting Treatment Setting Outpatient Care Visit Type Note Type Treatment Note General Information General Information Mona is a 17 year-old right hand dominant female referred to outpatient OT 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 Mona was accompanied by her Mother to initial evaluation; Mother reported that prior to surgery Mona had 'better can filling and closing machine tender' and coordination of the L UE. PMH: significant for moderate intellectual disability, selective mutism, left hemianopsia, left sided weakness. - Subjective Identification Type Name Identification Reconciled With Medical Record Observations Mona nodded 'yes' to practicing typing '[employer]' , opening doors, and carrying personal water bottle with her left hand. Chief Complaint(s) Restricts Patient/Caregiver Compliance with Home Fair Exercise Program Comments w/ family support - Objective Objective Measurements Mona was seen 1:1 for OT treatment session. 02/02/19= unable to tie shoe laces ( including inability to tie w/ 1 hand). 01/07/19= Able to manage diff size buttons; able to remove and put utensils back into blower room attendant utensil pascal. 01/05/19= Able to flip over various sized coins x 10 trials w/ L hand WFL. Able to open therapist's treatment room door x 2 trials w/ left hand w/ supervision and increased time; able to open horizontal drawer w/ left hand x 1 trial w/ supervision and increased time. Please refer to below for progress towards meeting established OT goals. Short Term Goals 1. Mona will be able to actively weight bear through the L UE (palm of hand) while standing at TT, x 1 minute, x 2 separate trials, while completing functional task with R UE, requiring maximum verbal and visual cues, and physical assistance from therapist with initial positioning of UE into weight bearing position at TT. = NOT A FOCUS 2. Mona will be able to actively weight shift L <-> R through the L UE (palm of hand ), while standing at TT, x 1 minute, x 2 separate trials, while completing functional task with the R UE, requiring maximum verbal and visual cues , and physical assistance from therapist. 01/28/19 = NOT A FOCUS 3. Mona will demonstrate improved functional motor abilities of the left hand, based on self-report of ability to open small food packets with active incorporation of the left hand on a daily basis with modified independence. 01/05/19= 25% met 4. Mona will be able to execute double knot 4 out of 5 trials with tying of personal shoe laces, utilizing compensatory strategies, requiring minimal verbal and visual cues from therapist. GOALS MET Bounced tennis ball across TT to therapist, 8/10 trials, w/ L hand seated, w/ CGA to mod phys A w/ initial grasp. *MET 12/22/18 Transferred item lap -> L of body w/ L UE seated, w/ active elbow ext and forearm sup, 9/ 10 trials, w/ min v.c. *MET Flipped 10/10 cards w/ L hand utilizing edge of TT, w/ min v .c. *MET 01/01/19 Managing personal water bottle with L hand within home on daily basis w/ mod I. *MET Prison Goals 1. Mona will be modified independent with execution of home exercise program with support of family utilizing provided written and visual instructions. 2. Mona will average 25.0 pounds of force with left can filling and closing machine tender dynamometer strength testing. - Treatment 7 Descriptor Self-care Double knot (use of box w/ 2 different colored shoe laces); Min assist from L hand w/ task completion Complexity Upgraded 6 Descriptor Attention to left side of space/left body of space 5 Descriptor Object manipulation - 1x10 per activity/exercise Pen twirls 4 Descriptor Bimanual coordination Folded [id number] paper in half w/ edges within 1/8-inch 2 Descriptor Eye-hand coordination L UE 500 grams 1x10 angled trampoline 1000 grams 1x10 angled trampoline Complexity Upgraded 1 Descriptor Fine motor coordination Opposition; number isolation of digits Exercises 4 Descriptor Shoulder extension Side Both Body Position Seated Sets 2 Repetitions 10 Resistance 10# Complexity Upgraded 3 Descriptor Seated row Side Both Body Position Seated Sets 2 Repetitions 10 Resistance 30# Complexity Upgraded 2 Descriptor UEB x 2 minutes Side Both Body Position Seated 1 Descriptor HEP. Reviewed treatment session w/ Mother. Recommended that Mona continues to utilize L UE in daily life with active engagement in a variety of activities. No additional changes to HEP at this time. - Assessment Patient Response to Treatment Fair Rehab Potential Fair Impairments Identified ADLs Balance Coordination/Dexterity Functional Activities Motor Function Weakness Posture Range of Motion Recreational Activities Meaningful Activities Motor Planning Assessment of Overall Progress Improving Assessment of Improvement Upgraded therapeutic exercises /eye-hand coordination activities; able to manage 500 g/1000 g spherical ball w/ angled trampoline eye-hand coordination activities for the first time without assist seated approximately 2 feet from trampoline. Improving eye -hand coordination/bimanual coordination; able to fold paper within 1/8-inch of edges . Decreased ability to isolate digits. Decreased spontaneous incorporation of UE into daily life outside of OT. Decreased active extension of digits (noted w/ active wrist/ digit extension at TT). Outpatient OT is recommended to address functional abilities of the left upper extremity. Recommend that therapist continues to address attention to left side body of space, bimanual coordination activities, and motor abilities of L UE. Home Exercise Program Please refer to treatment section of note for specific details. Patient/Caregiver Understanding Good - Plan Therapy Recommendations Continue with Current Program Advance per Rehabilitation Protocol
--- NOTE | 2019-03-12 14:43 | OT.OP.TRT ---
Visit Care Team Role Provider Type Marylou Peace Referring Provider Non-Staff Specialty: Physical Medicine and Rehab Address: [address] [place] [address], [place], [address] Email: Kirstin Parmar DO Attending Provider Physician Family Provider Primary Care Provider Specialty: Family Practice Address: [address] [place] [address], [address], [address] Email: [email or web address] Occupational Therapy Treatment Note OT Outpatient Treatment Note - Adult Start: 11/04/18 17:11 Freq: Status: Active Protocol: Document 03/12/19 14:23 AMS (Rec: 03/12/19 14:43 AMS [id number]) OT Outpatient Adult Treatment Note Session Time Visit Start Time 13:30 Visit Stop Time 14:20 Total Visit Minutes 50 Visit Information Plan of Care Dates 01/27/19-04/21/19 Insurance Information [employer]-Child Setting Treatment Setting Outpatient Care Visit Type Note Type Treatment Note General Information General Information Mona is a 17 year-old right hand dominant female referred to outpatient OT 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 Mona was accompanied by her Mother to initial evaluation; Mother reported that prior to surgery Mona had 'better reduction furnace operator' and coordination of the L UE. PMH: significant for moderate intellectual disability, selective mutism, left hemianopsia, left sided weakness. - Subjective Identification Type Name Identification Reconciled With Medical Record Observations [place] per Mona in re: what she eats her fries with. We (Grandmother and Grandfather) and her Aunt are looking out for her per Grandmother. Chief Complaint(s) Restricts Patient/Caregiver Compliance with Home Fair Exercise Program Comments w/ family support - Objective Objective Measurements Mona was seen 1:1 for OT treatment session. 03/12/19= Untied shoe laces x 2 trials w / 1 hand seated w/ use of stool. 02/06/19= Folded paper within 1/8-inch of edges of 8 1/2-inch x 11-inch paper. 02/02= unable to tie shoe laces (including inability to tie w/ 1 hand). 01/07/19= Able to manage diff size buttons; able to remove and put utensils back into behavioral medical director utensil pascal. 01/05/19= Able to flip over various sized coins x 10 trials w/ L hand WFL. Able to open therapist's treatment room door x 2 trials w/ left hand w/ supervision and increased time; able to open horizontal drawer w/ left hand x 1 trial w/ supervision and increased time. Please refer to below for progress towards meeting established OT goals. Short Term Goals 1. Mona will be able to actively weight bear through the L UE (palm of hand) while standing at TT, x 1 minute, x 2 separate trials, while completing functional task with R UE, requiring maximum verbal and visual cues, and physical assistance from therapist with initial positioning of UE into weight bearing position at TT. 03/12/19 = NOT A FOCUS 2. Mona will be able to actively weight shift L <-> R through the L UE (palm of hand ), while standing at TT, x 1 minute, x 2 separate trials, while completing functional task with the R UE, requiring maximum verbal and visual cues , and physical assistance from therapist. 03/12/19 = NOT A FOCUS 3. Mona will demonstrate improved functional motor abilities of the left hand, based on self-report of ability to open small food packets with active incorporation of the left hand on a daily basis with modified independence. 03/12/19= 25% met 4. Mona will be able to execute double knot 4 out of 5 trials with tying of personal shoe laces, utilizing compensatory strategies, requiring minimal verbal and visual cues from therapist. 03/12/19= x2 1st step w/ max v.c.; x2 2nd step w/ max verbal/ visual cues (CGA) GOALS MET Bounced tennis ball across TT to therapist, 8/10 trials, w/ L hand seated, w/ CGA to mod phys A w/ initial grasp. *MET 12/22/18 Transferred item lap -> L of body w/ L UE seated, w/ active elbow ext and forearm sup, 9/ 10 trials, w/ min v.c. *MET Flipped 10/10 cards w/ L hand utilizing edge of TT, w/ min v .c. *MET 01/01/19 Managing personal water bottle with L hand within home on daily basis w/ mod I. *MET Senior Research Project Manager Goals 1. Mona will be modified independent with execution of home exercise program with support of family utilizing provided written and visual instructions. 2. Mona will average 25.0 pounds of force with left reduction furnace operator dynamometer strength testing. - Treatment 7 Descriptor Self-care 1st and 2nd steps of shoe tying process; untying of shoe laces 1-handed (right shoe, seated w/ use of stool) x 2 w/ S Complexity Upgraded 6 Descriptor Attention to left side of space/left body of space 5 Descriptor Object manipulation - 1x10 per activity/exercise 4 Descriptor Bimanual coordination Hitting ball between hands (5- inch); shoe tying 2 Descriptor Eye-hand coordination L UE 500 grams 1x10 angled trampoline 1000 grams 1x10 angled trampoline Complexity Upgraded 1 Descriptor Fine motor coordination Opposition; number isolation of digits Exercises 4 Descriptor Shoulder extension Side Both Body Position Seated Sets 2 Repetitions 10 Resistance 10# Complexity Upgraded 3 Descriptor Seated row Side Both Body Position Seated Sets 2 Repetitions 10 Resistance 30# Complexity Upgraded 2 Descriptor UEB x 3 minutes Side Both Body Position Seated 1 Descriptor HEP. Reviewed treatment session w/ Grandmother. Recommended that Mona continues to utilize L UE in daily life with active engagement in a variety of activities. Practiced untying shoe seated w/ use of stool; Mona was in agreement to practice this new skill in the home. - Assessment Patient Response to Treatment Fair Rehab Potential Fair Impairments Identified ADLs,Balance,Coordination/ Dexterity,Functional Activities,Motor Function, Weakness,Posture,Range of Motion,Recreational Activities ,Meaningful Activities,Motor Planning Assessment of Improvement Decreased ability to isolate digits. Decreased spontaneous incorporation of UE into daily life outside of OT. Decreased active extension of digits ( noted w/ active wrist/digit extension at TT). Improving functional abilities as demonstrated by success w/ untying and tying shoe laces. (+) availability of 2 different splints; resting distal UE splint for day use and splint to maintain palmar web space for night use. Decreased object manipulation noted w/ manipulation of objects to left of body. Decreased grading of force w/ object manipulation. Outpatient OT is recommended to address functional abilities of the left upper extremity. Recommend that therapist continues to address attention to left side body of space, bimanual coordination activities, and motor abilities of L UE. Home Exercise Program Please refer to treatment section of note for specific details. Patient/Caregiver Understanding Good - Plan Therapy Recommendations Continue with Current Program, Advance per Rehabilitation Protocol
--- NOTE | 2019-03-20 10:49 | OT.OP.TRT ---
Visit Care Team Role Provider Type Marylou Peace Referring Provider Non-Staff Specialty: Physical Medicine and Rehab Address: [address] [place] [address], [place], [address] Email: Kirstin Parmar DO Attending Provider Physician Family Provider Primary Care Provider Specialty: Family Practice Address: [address] [place] [address], [address], [address] Email: [email or web address] Occupational Therapy Treatment Note OT Outpatient Treatment Note - Adult Start: 11/04/18 17:11 Freq: Status: Active Protocol: Document 03/20/19 10:33 AMS (Rec: 03/20/19 10:48 AMS [id number]) OT Outpatient Adult Treatment Note Session Time Visit Start Time 09:35 Visit Stop Time 10:20 Total Visit Minutes 45 Visit Information Plan of Care Dates 01/27/19-04/21/19 Insurance Information [employer]-Child Setting Treatment Setting Outpatient Care Visit Type Note Type Treatment Note General Information General Information Mona is a 17 year-old right hand dominant female referred to outpatient OT 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 Mona was accompanied by her Mother to initial evaluation; Mother reported that prior to surgery Mona had 'better audiology director' and coordination of the L UE. PMH: significant for moderate intellectual disability, selective mutism, left hemianopsia, left sided weakness. - Subjective Identification Type Name Identification Reconciled With Medical Record Observations I forgot per Mona in re: untying her shoes w/ 1 hand without support. She is doing the school program Saturday - per Aunt. Chief Complaint(s) Restricts Patient/Caregiver Compliance with Home Good Exercise Program Comments w/ family support - Objective Objective Measurements Mona was seen 1:1 for OT treatment session. 03/12/19= Untied shoe laces x 2 trials w / 1 hand seated w/ use of stool. 02/06/19= Folded paper within 1/8-inch of edges of 8 1/2-inch x 11-inch paper. 02/02= unable to tie shoe laces (including inability to tie w/ 1 hand). 01/07/19= Able to manage diff size buttons; able to remove and put utensils back into it network administrator utensil pascal. 01/05/19= Able to flip over various sized coins x 10 trials w/ L hand WFL. Able to open therapist's treatment room door x 2 trials w/ left hand w/ supervision and increased time; able to open horizontal drawer w/ left hand x 1 trial w/ supervision and increased time. Please refer to below for progress towards meeting established OT goals. Short Term Goals 1. Mona will be able to actively weight bear through the L UE (palm of hand) while standing at TT, x 1 minute, x 2 separate trials, while completing functional task with R UE, requiring maximum verbal and visual cues, and physical assistance from therapist with initial positioning of UE into weight bearing position at TT. 03/12/19 = NOT A FOCUS 2. Mona will be able to actively weight shift L <-> R through the L UE (palm of hand ), while standing at TT, x 1 minute, x 2 separate trials, while completing functional task with the R UE, requiring maximum verbal and visual cues , and physical assistance from therapist. 03/12/19 = NOT A FOCUS 3. Mona will demonstrate improved functional motor abilities of the left hand, based on self-report of ability to open small food packets with active incorporation of the left hand on a daily basis with modified independence. 03/12/19= 25% met 4. Mona will be able to execute double knot 4 out of 5 trials with tying of personal shoe laces, utilizing compensatory strategies, requiring minimal verbal and visual cues from therapist. 03/12/19= x2 1st step w/ max v.c.; x2 2nd step w/ max verbal/ visual cues (CGA) GOALS MET Bounced tennis ball across TT, 8/10 trials, w/ L hand seated , w/ CGA to mod phys A w/ initial grasp. *MET 12/22/18 Transferred item lap -> L of body w/ L UE seated, w/ elbow ext, forearm sup, 9/10 trials, w/ min v.c. *MET 12/29/18 Flipped 10/10 cards w/ L hand utilizing edge of TT, w/ min v .c. *MET 01/01/19 Managing personal water bottle with L hand within home on daily basis w/ mod I. *MET Nursing Home Goals 1. Mona will be modified independent with execution of home exercise program with support of family utilizing provided written and visual instructions. 2. Mona will average 25.0 pounds of force with left audiology director dynamometer strength testing. - Treatment 7 Descriptor Self-care Initiated 1-handed shoe tying (d/t Mona's preference) Complexity Upgraded 6 Descriptor Attention to L side 5 Descriptor Object manipulation - 1x10 per activity/exercise 4 Descriptor UE motor coordination (w/ forearm supination - 'juggling ') Bimanual coordination 1 Descriptor Fine motor coordination Opposition; number isolation of digits Exercises 2 Descriptor UEB x 3 minutes Side Both Body Position Seated 1 Descriptor HEP. Reviewed treatment session w/ Grandmother and Aunt w/ Mona's presence. Recommended that Mona continues to utilize L UE in daily life with active engagement in a variety of activities. Removed card game from HEP and initiated untying of shoes 1-handed and petting dog w/ both hands. HEP was adjusted w/ collaboration/ feedback from Mona. Copy placed in paper chart and provided to Grandmother to support carry-over. Complexity Upgraded - Assessment Patient Response to Treatment Fair Rehab Potential Fair Impairments Identified ADLs,Balance,Coordination/ Dexterity,Functional Activities,Motor Function, Weakness,Posture,Range of Motion,Recreational Activities ,Meaningful Activities,Motor Planning Assessment of Improvement Decreased spontaneous incorporation of UE into daily life outside of OT. Improving ability to catch objects bounced lightly at TT level w/ L hand; unable to catch moving object w/ L hand w/ forearm in supination. Task analysis completed; initiated stationary grasping w/ forearm in supination. Initiated 1- handed shoe tying based on feedback/preference of patient . Need to review. Outpatient OT is recommended to address functional abilities of the left upper extremity. Recommend that therapist continues to address attention to left side body of space, bimanual coordination activities, and motor abilities of L UE. Recommend re-assessing audiology director strength at time of next treatment session ; recommend continuing to motor coordination abilities. Home Exercise Program Please refer to treatment section of note for specific details. Patient/Caregiver Understanding Good - Plan Therapy Recommendations Continue with Current Program, Advance per Rehabilitation Protocol
--- NOTE | 2019-03-27 11:43 | OT.OP.TRT ---
Visit Care Team Role Provider Type Marylou Peace Referring Provider Non-Staff Specialty: Physical Medicine and Rehab Address: [address] [place] [address], [place], [address] Email: Kirstin Parmar DO Attending Provider Physician Family Provider Primary Care Provider Specialty: Family Practice Address: [address] [place] [address], [address], [address] Email: [email or web address] Occupational Therapy Treatment Note OT Outpatient Treatment Note - Adult Start: 11/04/18 17:11 Freq: Status: Active Protocol: Document 03/27/19 10:22 AMS (Rec: 03/27/19 10:31 [facility] [email or web address]) OT Outpatient Adult Treatment Note Session Time Visit Start Time 08:35 Visit Stop Time 09:20 Total Visit Minutes 45 Visit Information Plan of Care Dates 01/27/19-04/21/19 Insurance Information [employer]-Child Setting Treatment Setting Outpatient Care Visit Type Note Type Treatment Note General Information General Information Mona is a 17 year-old right hand dominant female referred to outpatient OT 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 Mona was accompanied by her Mother to initial evaluation; Mother reported that prior to surgery Mona had 'better safety person' and coordination of the L UE. PMH: significant for moderate intellectual disability, selective mutism, left hemianopsia, left sided weakness. - Subjective Identification Type Name Identification Reconciled With Medical Record Observations Yes per Mona when she was asked whether or not she had been practicing 1-handed shoe tying at home. Chief Complaint(s) Restricts Patient/Caregiver Compliance with Home Good Exercise Program Comments w/ family support - Objective Objective Measurements Mona was seen 1:1 for OT treatment session. 03/12/19= Untied shoe laces x 2 trials w / 1 hand seated w/ use of stool. 02/06/19= Folded paper within 1/8-inch of edges of 8 1/2-inch x 11-inch paper. 02/02= unable to tie shoe laces (including inability to tie w/ 1 hand). 01/07/19= Able to manage diff size buttons; able to remove and put utensils back into outpatient phlebotomist utensil [place]. 01/05/19= Able to flip over various sized coins x 10 trials w/ L hand WFL. Able to open therapist's treatment room door x 2 trials w/ left hand w/ supervision and increased time; able to open horizontal drawer w/ left hand x 1 trial w/ supervision and increased time. Please refer to below for progress towards meeting established OT goals. Short Term Goals 1. Mona will be able to actively weight bear through the L UE (palm of hand) while standing at TT, x 1 minute, x 2 separate trials, while completing functional task with R UE, requiring maximum verbal and visual cues, and physical assistance from therapist with initial positioning of UE into weight bearing position at TT. 03/12/19 = NOT A FOCUS 2. Mona will be able to actively weight shift L <-> R through the L UE (palm of hand ), while standing at TT, x 1 minute, x 2 separate trials, while completing functional task with the R UE, requiring maximum verbal and visual cues , and physical assistance from therapist. 03/12/19 = NOT A FOCUS 3. Mona will demonstrate improved functional motor abilities of the left hand, based on self-report of ability to open small food packets with active incorporation of the left hand on a daily basis with modified independence. 03/12/19= 25% met 4. Mona will be able to tie shoe laces 4 out of 5 trials, utilizing 2-different colored shoe laces set-up, requiring minimal verbal/visual cues from therapist. 03/27/19= GOAL MODIFIED GOALS MET Bounced tennis ball across TT, 8/10 trials, w/ L hand seated , w/ CGA to mod phys A w/ initial grasp. *MET 12/22/18 Transferred item lap -> L of body w/ L UE seated, w/ elbow ext, forearm sup, 9/10 trials, w/ min v.c. *MET 12/29/18 Flipped 10/10 cards w/ L hand utilizing edge of TT, w/ min v .c. *MET 01/01/19 Managing personal water bottle with L hand within home on daily basis w/ mod I. *MET [facility] Goals 1. Mona will be modified independent with execution of home exercise program with support of family utilizing provided written and visual instructions. 2. Mona will average 25.0 pounds of force with left safety person dynamometer strength testing. 3. Mona will be able to tie personal shoe laces, utilizing compensatory strategies, requiring supervision. - Treatment 7 Descriptor Self-care 1-handed tying of shoe laces ( 2-different colored shoe laces box); CGA to min phys assist w/ mod verbal/visual cues from therapist 6 Descriptor Attention to L side 5 Descriptor Object manipulation - 1x10 per activity/exercise 4 Descriptor UE motor coordination Increased focus on manipulation w/ forearm in supination Bimanual coordination 2 Descriptor Eye-hand coordination L UE 500 grams 1x10 angled trampoline 1000 grams 1x10 angled trampoline Assist w/ catching on this date 1 Descriptor Fine motor coordination Exercises 2 Descriptor UEB x 2 minutes Side Both Body Position Seated 1 Descriptor HEP. Reviewed treatment session w/ Grandmother w/ Mona's presence. No changes to HEP made on this treatment date. - Assessment Patient Response to Treatment Good Rehab Potential Fair Impairments Identified ADLs,Balance,Coordination/ Dexterity,Functional Activities,Motor Function, Weakness,Posture,Range of Motion,Recreational Activities ,Meaningful Activities,Motor Planning Assessment of Improvement (+) protective/guarding behaviors of UE; max verbal cueing re: positioning of UE at side w/ gait. Decreased engagement in verbal exchanges of communication w/ therapist when not in 1:1 environment. Improving grading of grasp w/ eye-hand coordination task at TT; however, requires intermittent verbal cueing to form 'bowl' w/ hand and to monitor force exertion. Verbal cueing to avoid fisting positions of hand and reliance on thumb w/ object manipulation. Impaired translation palm -> fingertips ; despite modeling and maximum verbal cues not using thumb to assist w/ translation at this time. (+) report of practicing 1-handed shoe tying outside of OT environment. Able to don zip-up jacket w/ pre- problem solving re: inside out arms and cueing to manage collar and to not rely on assistance from therapist. Outpatient OT is recommended to address functional abilities of the left upper extremity. Recommend that therapist continues to address attention to left side body of space, bimanual coordination activities, and motor abilities of L UE. Recommend re-assessing safety person strength at time of next treatment session; recommend continuing to motor coordination abilities. Home Exercise Program Please refer to treatment section of note for specific details. Reviewed with Patient/Caregiver Progress Being Made Patient/Caregiver Understanding Good - Plan Therapy Recommendations Continue with Current Program, Advance per Rehabilitation Protocol
--- NOTE | 2019-04-02 16:25 | OT.OP.TRT ---
Visit Care Team Role Provider Type Marylou Peace Referring Provider Non-Staff Specialty: Physical Medicine and Rehab Address: [address] [place] [address], [place], [address] Email: Kirstin Parmar DO Attending Provider Physician Family Provider Primary Care Provider Specialty: Family Practice Address: [address] [place] [address], [address], [address] Email: [email or web address] Occupational Therapy Treatment Note OT Outpatient Treatment Note - Adult Start: 11/04/18 17:11 Freq: Status: Active Protocol: Document 04/02/19 16:12 AMS (Rec: 04/02/19 16:25 AMS [email or web address]) OT Outpatient Adult Treatment Note Session Time Visit Start Time 14:35 Visit Stop Time 15:20 Total Visit Minutes 45 Visit Information Plan of Care Dates 01/27/19-04/21/19 Insurance Information [employer]-Child Setting Treatment Setting Outpatient Care Visit Type Note Type Treatment Note General Information General Information Mona is a 17 year-old right hand dominant female referred to outpatient OT 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 Mona was accompanied by her Mother to initial evaluation; Mother reported that prior to surgery Mona had 'better sugar drier' and coordination of the L UE. PMH: significant for moderate intellectual disability, selective mutism, left hemianopsia, left sided weakness. - Subjective Identification Type Name Identification Reconciled With Medical Record Observations Yes per Mona in re: wanting to go home. Chief Complaint(s) Restricts Patient/Caregiver Compliance with Home Good Exercise Program Comments w/ family support - Objective Objective Measurements Mona was seen 1:1 for OT treatment session. 03/12/19= Untied shoe laces x 2 trials w / 1 hand seated w/ use of stool. 02/06/19= Folded paper within 1/8-inch of edges of 8 1/2-inch x 11-inch paper. 02/02= unable to tie shoe laces (including inability to tie w/ 1 hand). 01/07/19= Able to manage diff size buttons; able to remove and put utensils back into shopper utensil pascal. 01/05/19= Able to flip over various sized coins x 10 trials w/ L hand WFL. Able to open therapist's treatment room door x 2 trials w/ left hand w/ supervision and increased time; able to open horizontal drawer w/ left hand x 1 trial w/ supervision and increased time. Please refer to below for progress towards meeting established OT goals. Short Term Goals 1. Mona will be able to actively weight bear through the L UE (palm of hand) while standing at TT, x 1 minute, x 2 separate trials, while completing functional task with R UE, requiring maximum verbal and visual cues, and physical assistance from therapist with initial positioning of UE into weight bearing position at TT. 03/12/19 = NOT A FOCUS 2. Mona will be able to actively weight shift L <-> R through the L UE (palm of hand ), while standing at TT, x 1 minute, x 2 separate trials, while completing functional task with the R UE, requiring maximum verbal and visual cues , and physical assistance from therapist. 03/12/19 = NOT A FOCUS 3. Mona will demonstrate improved functional motor abilities of the left hand, based on self-report of ability to open small food packets with active incorporation of the left hand on a daily basis with modified independence. 03/12/19= 25% met 4. Mona will be able to tie shoe laces 4 out of 5 trials, utilizing 2-different colored shoe laces set-up, requiring minimal verbal/visual cues from therapist. 04/02/19= 50% met GOALS MET Bounced tennis ball across TT, 8/10 trials, w/ L hand seated , w/ CGA to mod phys A w/ initial grasp. *MET 12/22/18 Transferred item lap -> L of body w/ L UE seated, w/ elbow ext, forearm sup, 9/10 trials, w/ min v.c. *MET 12/29/18 Flipped 10/10 cards w/ L hand utilizing edge of TT, w/ min v .c. *MET 01/01/19 Managing personal water bottle with L hand within home on daily basis w/ mod I. *MET Intermediate Goals 1. Mona will be modified independent with execution of home exercise program with support of family utilizing provided written and visual instructions. 2. Mona will average 25.0 pounds of force with left sugar drier dynamometer strength testing. 3. Mona will be able to tie personal shoe laces, utilizing compensatory strategies, requiring supervision. - Treatment 7 Descriptor Self-care 1-handed tying of shoe laces ( 2-different colored shoe laces box); mod verbal/visual cues from therapist Complexity Upgraded 6 Descriptor Attention to L side 5 Descriptor Object manipulation - 1x10 per activity/exercise 4 Descriptor UE motor coordination Increased focus on manipulation w/ forearm in supination Bimanual coordination 2 Descriptor Eye-hand coordination L UE 500 grams 1x10 angled trampoline 1000 grams 1x10 angled trampoline Assist w/ catching on this date 1 Descriptor Fine motor coordination Exercises 2 Descriptor UEB x 2 minutes Side Both Body Position Seated 1 Descriptor HEP. Reviewed treatment session w/ Mother w/ Mona's presence. No changes to HEP made on this treatment date. - Assessment Patient Response to Treatment Good Rehab Potential Good Impairments Identified ADLs,Balance,Coordination/ Dexterity,Functional Activities,Motor Function, Weakness,Posture,Range of Motion,Recreational Activities ,Meaningful Activities,Motor Planning Assessment of Improvement (+) protective/guarding behaviors of UE; max verbal cueing re: positioning of UE at side w/ gait. Decreased engagement in verbal exchanges of communication w/ therapist when not in 1:1 environment. Improving grading of grasp w/ eye-hand coordination task at TT; decreased cueing required on this treatment date. Verbal cueing to avoid fisting positions of hand and reliance on thumb w/ object manipulation. Recommend re- assessing sugar drier strength at time of next treatment session . Recommend that therapist continues to address attention to left side body of space, bimanual coordination activities, and motor abilities of L UE. Home Exercise Program Please refer to treatment section of note for specific details. Reviewed with Patient/Caregiver Progress Being Made Patient/Caregiver Understanding Good - Plan Therapy Recommendations Continue with Current Program, Advance per Rehabilitation Protocol
--- NOTE | 2019-04-10 11:40 | OT.OP.TRT ---
Visit Care Team Role Provider Type Marylou Peace Referring Provider Non-Staff Specialty: Physical Medicine and Rehab Address: [address] [place] [address], [place], [address] Email: Kirstin Parmar DO Attending Provider Physician Family Provider Primary Care Provider Specialty: Family Practice Address: [address] [place] [address], [address], [address] Email: [email or web address] Occupational Therapy Treatment Note OT Outpatient Treatment Note - Adult Start: 11/04/18 17:11 Freq: Status: Active Protocol: Document 04/10/19 10:43 A[facility] (Rec: 04/10/19 11:39 [facility] [id number]) OT Outpatient Adult Treatment Note Session Time Visit Start Time 10:30 Visit Stop Time 11:15 Total Visit Minutes 45 Visit Information Plan of Care Dates 01/27/19-04/21/19 Insurance Information [employer]-Child Setting Treatment Setting Outpatient Care Visit Type Note Type Treatment Note General Information General Information Mona is a 17 year-old right hand dominant female referred to outpatient OT 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 Mona was accompanied by her Mother to initial evaluation; Mother reported that prior to surgery Mona had 'better day care supervisor' and coordination of the L UE. PMH: significant for moderate intellectual disability, selective mutism, left hemianopsia, left sided weakness. - Subjective Identification Type Name Identification Reconciled With Medical Record Observations She has an appointment down in [place] next week for the selective mutism diagnosis per Mother. Both per Mona in re: eggnog and cider. Chief Complaint(s) Restricts Patient/Caregiver Compliance with Home Good Exercise Program Comments w/ family support - Objective Objective Measurements Mona was seen 1:1 for OT treatment session. 03/12/19= Untied shoe laces x 2 trials w / 1 hand seated w/ use of stool. 02/06/19= Folded paper within 1/8-inch of edges of 8 1/2-inch x 11-inch paper. 02/02= unable to tie shoe laces (including inability to tie w/ 1 hand). 01/07/19= Able to manage diff size buttons; able to remove and put utensils back into ammonium nitrate crystallizer utensil pascal. 01/05/19= Able to flip over various sized coins x 10 trials w/ L hand WFL. Able to open therapist's treatment room door x 2 trials w/ left hand w/ supervision and increased time; able to open horizontal drawer w/ left hand x 1 trial w/ supervision and increased time. Please refer to below for progress towards meeting established OT goals. Short Term Goals 1. Mona will be able to actively weight bear through the L UE (palm of hand) while standing at TT, x 1 minute, x 2 separate trials, while completing functional task with R UE, requiring maximum verbal and visual cues, and physical assistance from therapist with initial positioning of UE into weight bearing position at TT. 03/12/19 = NOT A FOCUS 2. Mona will be able to actively weight shift L <-> R through the L UE (palm of hand ), while standing at TT, x 1 minute, x 2 separate trials, while completing functional task with the R UE, requiring maximum verbal and visual cues , and physical assistance from therapist. 03/12/19 = NOT A FOCUS 3. Mona will demonstrate improved functional motor abilities of the left hand, based on self-report of ability to open small food packets with active incorporation of the left hand on a daily basis with modified independence. 03/12/19= 25% met 4. Mona will be able to tie shoe laces 4 out of 5 trials, utilizing 2-different colored shoe laces set-up, requiring minimal verbal/visual cues from therapist. 04/10/19= 50% met GOALS MET Bounced tennis ball across TT, 8/10 trials, w/ L hand seated , w/ CGA to mod phys A w/ initial grasp. *MET 12/22/18 Transferred item lap -> L of body w/ L UE seated, w/ elbow ext, forearm sup, 9/10 trials, w/ min v.c. *MET 12/29/18 Flipped 10/10 cards w/ L hand utilizing edge of TT, w/ min v .c. *MET 01/01/19 Managing personal water bottle with L hand within home on daily basis w/ mod I. *MET Vocational Case Manager Goals 1. Mona will be modified independent with execution of home exercise program with support of family utilizing provided written and visual instructions. 2. Mona will average 25.0 pounds of force with left day care supervisor dynamometer strength testing. 3. Mona will be able to tie personal shoe laces, utilizing compensatory strategies, requiring supervision. - Treatment 7 Descriptor Self-care 1-handed tying of shoe laces ( 2-different colored shoe laces box); mod verbal/visual cues/ CGA Management of mug Education re: options for shoe laces Complexity Upgraded 6 Descriptor Attention to L side 5 Descriptor Object manipulation - 1x10 per activity/exercise Complexity Upgraded 4 Descriptor UE motor coordination Bimanual coordination 2 Descriptor Eye-hand coordination L UE 500 grams 1x10 angled trampoline throwing to the left 3.3# spherical ball 2x10 angled trampoline frontal plane (1x10 focus on wrist extension w/ throw) Assist w/ catching on this date Complexity Upgraded 1 Descriptor Fine motor coordination. Re- administered 9-hole peg test. Exercises 3 Descriptor Seated row Side Both Body Position Seated Sets 2 Repetitions 10 Resistance 30# 2 Descriptor UEB x 2 minutes Side Both Body Position Seated 1 Descriptor HEP. Reviewed treatment session w/ Mother w/ Mona's presence. Initiated simple modified verbal exchange with the therapist w/ transitions ( to and from treatment session) . Requested that Mother bring 'favorite' drink mug to next OT treatment session. Both Mother and daughter denied questions. - Assessment Patient Response to Treatment Good Rehab Potential Good Impairments Identified ADLs,Balance,Coordination/ Dexterity,Functional Activities,Motor Function, Weakness,Posture,Range of Motion,Recreational Activities ,Meaningful Activities,Motor Planning Assessment of Improvement (+) protective/guarding behaviors of UE; max verbal cueing re: positioning of UE at side w/ gait. Improved engagement in verbal exchanges of communication w/ therapist w/ modification (loudness). Improving grading of grasp w/ eye-hand coordination task at TT; increased speed and efficiency w/ object manipulation w/ L hand as evidenced by performance on 9- Hole Peg Test. Cueing to support bimanual manipulation of drinking mug; recommend practicing w/ familiar mug to support carry-over into home/ community environments. Recommend re-assessing day care supervisor strength at time of next treatment session. Recommend that therapist continues to address attention to left side body of space, bimanual coordination activities, and motor abilities of L UE. Home Exercise Program Please refer to treatment section of note for specific details. Reviewed with Patient/Caregiver Progress Being Made Patient/Caregiver Understanding Good - Plan Therapy Recommendations Continue with Current Program, Advance per Rehabilitation Protocol
--- NOTE | 2019-04-17 11:39 | OT.OP.REEVAL ---
Visit Care Team Role Provider Type Marylou Peace Referring Provider Non-Staff Address: [address] [place] [address], [place], [address] Email: Kirstin Parmar DO Attending Provider Physician Family Provider Primary Care Provider Address: [address] [place] [address], [facility] [address], [place], [address] Email: [email or web address] Outpatient OT Outpatient Adult Evaluation Start: 11/04/18 17:11 Freq: Status: Active Protocol: Document 11/04/18 17:12 AMS (Rec: 11/04/18 17:28 AMS [email or web address]) General Information Session Time Visit Start Time 12:30 Visit Stop Time 13:15 Total Visit Minutes 45 Visit Information Plan of Care Dates 11/04/18-01/27/19 Insurance Information [employer]-Child Visit Type Note Type Initial Evaluation Identification Identification Confirmed Yes Identification Confirmed By Mother Medical Information Medical History Per chart review: Mona is a 17 year-old right hand dominant girl with h/o intractable seizures and 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 Seizures resumed s/p procedure. 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 PMH: significant for moderate intellectual disability, selective mutism, left hemianopsia, left sided weakness. ADLs Overall Ability Comments Impaired; mod I w/ UB/LB dressing per Mother Goals Objective Measurements Objective Measurements Impaired sensation of the L UE ; protective behaviors of L UE ('hiding hand/UE in sleeve of long sleeved shirt'); decreased initiation and ability to follow multi-step directions; decreased volitional motor coordination of L UE; tendency into flexion pattern w/ hand; L elbow flexion/extension WFL w/ environmental modifications to support; L forearm pronation WFL; PROM of L UE observed to be overhead w/ use of pulleys; decreased AROM of L wrist; minimal active L forearm supination; decreased active sh ROM; unable to complete formal ROM testing of L UE; R UE AROM WFL observed w/ functional movements; decreased functional independence. Treatment Treatment Education re: protective behaviors and use of clothing. Mother and daughter denied questions. Short Term Goals Short Term Goals 1. Mona will be able to actively weight bear through the L UE (palm of hand) while standing at TT, x 1 minute, x 2 separate trials, while completing functional task with R UE, requiring maximum verbal and visual cues, and physical assistance from therapist with initial positioning of UE into weight bearing position at TT. 2. Mona will be able to actively weight shift L <-> R through the L UE (palm of hand ), while standing at TT, x 1 minute, x 2 separate trials, while completing functional task with the R UE, requiring maximum verbal and visual cues , and physical assistance from therapist with initial positioning of UE into weight bearing position at TT. 3. Mona will be able to successfully transfer item from lap to left side of body with the L UE while seated, demonstrating active elbow extension and forearm supination, 8 out of 10 trials , requiring maximum physical assistance with initial grasp of object and maximum verbal and visual cues from therapist . Store Administrator Goals Store Administrator Goals 1. Mona will be modified independent with execution of home exercise program with support of family utilizing provided written and visual instructions. 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 Mona was accompanied by her Mother to initial evaluation; Mother reported that prior to surgery Mona had 'better general milling superintendent' and coordination of the L UE. PMH: significant for moderate intellectual disability, selective mutism, left hemianopsia, left sided weakness. PLOF: Per Mother, Mona was independent w/ BADLS and was actively involved in program through the high school. Program was 3 days per week, Saturday, Saturday and , from 9:00 to 1:00. Job and life skills were being addressed in the program. Mother reported that Mona would return to the program the following week. Evaluation findings: Impaired sensation of the L UE; protective behaviors of L UE ( 'hiding hand/UE in sleeve of long sleeved shirt'); selective mutism; decreased initiation and ability to follow multi-step directions; decreased volitional motor coordination of L UE; tendency into flexion pattern w/ hand; L elbow flexion/extension WFL w/ environmental modifications to support; L forearm pronation WFL; PROM of L UE observed to be overhead w/ use of pulleys; decreased AROM of L wrist; minimal active L forearm supination; decreased active sh ROM; unable to complete formal ROM testing of L UE; R UE AROM WFL observed w/ functional movements; decreased functional independence. Outpatient OT is recommended to address these areas in order to maximize Mona's success in day-to-day life w/ active participation in meaningful activities. Home Exercise Program Please refer to treatment section of note for specific details. Reviewed with Patient Goals,Progress Being Made,Home Exercise Program Patient Understanding Fair Plan Comment 12 weeks Comment 1-2 times per week Therapeutic Contents Active Range of Motion, Adaptive Equipment Education, Client Education,Cognitive Skills Development,Functional Activities,Home Exercise Program,Joint Protection, Manual Therapy,Education, Neurodevelopment Treatment, Neuromuscular Re-Education, Self-Care,Stretching/ Flexibility Activities, Therapeutic Activities, Therapeutic Exercises, Modalities,Sensory Re- education Modalities As Needed,As Prescribed Types of Modalities E-Stim,Functional Stimulation (FES),T.E.N. Stimulation,TENS Placement/Application Additional Types of Modalities Heat/Cold Patient Instruction Home Exercise Program,Plan of Care,Questions/Concerns Sensory Assessment Sensory Profile2 Functional Wrist/Hand Scan Hand Side OT Outpatient Muscle Testing Start: 12/25/18 14:01 Freq: Status: Active Protocol: Document 04/17/19 11:21 AMS (Rec: 04/17/19 11:39 AMS [email or web address]) Change Over/Hand Strength Change Over/Hand Strength Left Change Over Dynamometer II 18.7 Lateral Pinch Strengh (lbs) 10.3 Tip Pinch Strength (lbs) 6.0 Comments Change Over = > 3 SD below mean; Lateral Pinch = > 2 SD below the mean Norms for 18-19 y.o. females Change Over = 61.7 +/- 12.5 Lateral Pinch = 17.2 +/- 2.5 Right Change Over Dynamometer II 60.0 Lateral Pinch Strengh (lbs) 18.0 Tip Pinch Strength (lbs) 12.0 Comments Change Over = within 1 SD below mean; Lateral Pinch = slightly below mean Norms for 18-19 y.o. females Change Over = 71.6 +/- 12.3 Lateral Pinch = 18.1 +/- 2.4 Tip Pinch OT Outpatient Treatment Note - Adult Start: 11/04/18 17:11 Freq: Status: Active Protocol: Document 04/17/19 11:21 AMS (Rec: 04/17/19 11:39 AMS [email or web address]) OT Outpatient Adult Treatment Note Session Time Visit Start Time 10:30 Visit Stop Time 11:15 Total Visit Minutes 45 Visit Information Plan of Care Dates 04/17/19-07/10/2019 Insurance Information [employer]-Child Setting Treatment Setting Outpatient Care Visit Type Note Type Re-Evaluation General Information General Information Mona is a 17 year-old right hand dominant female referred to outpatient OT 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 Mona was accompanied by her Mother to initial evaluation; Mother reported that prior to surgery Mona had 'better general milling superintendent' and coordination of the L UE. PMH: significant for moderate intellectual disability, selective mutism, left hemianopsia, left sided weakness. - Subjective Identification Type Name Identification Reconciled With Medical Record Observations Yes, we have some beads at home per Mother. Yes per Mona in re: question of whether or not she would be willing to 'bead' at home. Chief Complaint(s) Restricts Patient/Caregiver Compliance with Home Good Exercise Program Comments w/ family support - Objective Objective Measurements Mona was seen 1:1 for OT treatment session. 03/12/19= Untied shoe laces x 2 trials w / 1 hand seated w/ use of stool. 02/06/19= Folded paper within 1/8-inch of edges of 8 1/2-inch x 11-inch paper. 02/02= unable to tie shoe laces (including inability to tie w/ 1 hand). 01/07/19= Able to manage diff size buttons; able to remove and put utensils back into grey iron molder utensil pascal. 01/05/19= Able to flip over various sized coins x 10 trials w/ L hand WFL. Able to open therapist's treatment room door x 2 trials w/ left hand w/ supervision and increased time; able to open horizontal drawer w/ left hand x 1 trial w/ supervision and increased time. Please refer to below for progress towards meeting established OT goals. Short Term Goals 1. Mona will be able to actively weight bear through the L UE (palm of hand) while standing at TT, x 1 minute, x 2 separate trials, while completing functional task with R UE, requiring maximum verbal and visual cues, and physical assistance from therapist with initial positioning of UE into weight bearing position at TT. = NOT A FOCUS 2. Mona will be able to actively weight shift L <-> R through the L UE (palm of hand ), while standing at TT, x 1 minute, x 2 separate trials, while completing functional task with the R UE, requiring maximum verbal and visual cues , and physical assistance from therapist. 04/17/19 = NOT A FOCUS 3. Mona will demonstrate improved functional motor abilities of the left hand, based on self-report of ability to open small food packets with active incorporation of the left hand on a daily basis with modified independence. = 25% met 4. Mona will be able to tie shoe laces 4 out of 5 trials, utilizing 2-different colored shoe laces set-up, requiring minimal verbal/visual cues from therapist. 04/10/19= 50% met GOALS MET Bounced tennis ball across TT, 8/10 trials, w/ L hand seated , w/ CGA to mod phys A w/ initial grasp. *MET 12/22/18 Transferred item lap -> L of body w/ L UE seated, w/ elbow ext, forearm sup, 9/10 trials, w/ min v.c. *MET 12/29/18 Flipped 10/10 cards w/ L hand utilizing edge of TT, w/ min v .c. *MET 01/01/19 Managing personal water bottle with L hand within home on daily basis w/ mod I. *MET Halfway Goals 1. Mona will be modified independent with execution of home exercise program with support of family utilizing provided written and visual instructions. 2. Mona will average 25.0 pounds of force with left general milling superintendent dynamometer strength testing. 3. Mona will be able to tie personal shoe laces, utilizing compensatory strategies, requiring supervision. - Treatment 7 Descriptor Self-care/Functional Activities Flipping medium sized paper cups (grasp and release) N/A 04/17/19 1-handed tying of shoe laces ( 2-different colored shoe laces box); mod verbal/visual cues/ CGA Management of mug 6 Descriptor Attention to L side 5 Descriptor Object manipulation - 1x10 per activity/exercise 4 Descriptor UE motor coordination Bimanual coordination 2 Descriptor Eye-hand coordination L UE 500 grams 1x10 angled trampoline throwing to the left 3.3# spherical ball 2x10 angled trampoline frontal plane (1x10 focus on wrist extension w/ throw) Assist w/ catching on this date 1 Descriptor Fine motor coordination/Object manipulation Black tongs (pom pom transfer at TT - assist w/ positioning tongs required); grading of grasp w/ manipulation of get-a -general milling superintendent small clothespins and w/ manipulating marbles Exercises 3 Descriptor Seated row Side Both Body Position Seated Sets 2 Repetitions 10 Resistance 30# 2 Descriptor UEB x 2 minutes Side Both Body Position Seated 1 Descriptor HEP. Reviewed treatment session w/ Mother w/ Mona's presence. Advanced modified verbal exchange with the therapist w/ transitions (to and from treatment session w/ verbalization w/ intent to incorporate high-five or wave w/ goodbye). Recommended that Mona practice beading at home w/ L hand stabilization string. Also requested that Mother and daughter bring personal mug to OT treatment session to practice to encourage carry-over and provide support w/ motor planning. Both Mother and daughter denied questions. Complexity Upgraded - Assessment Patient Response to Treatment Good Rehab Potential Good Impairments Identified ADLs,Balance,Coordination/ Dexterity,Functional Activities,Motor Function, Weakness,Posture,Range of Motion,Recreational Activities ,Meaningful Activities,Motor Planning Assessment of Improvement Mona has made progress over the last certification period relative to functional incorporation of the affected upper extremity guided by written checklist (petting dog w/ 2 hands, typing w/ L, untying shoes w/ L, carrying water bottle and managing doors w/ L), as well as fine motor coordination and motor planning of the L UE. Mona has begun to be successful w/ active wrist/digit extension w / throwing to the left of body w/ slightly weighted ball! Increased speed and efficiency w/ object manipulation w/ L hand as evidenced by Mona's performance on 9-Hole Peg Test at time of previous treatment session. Despite gains, Mona continues to require max support for attention to L and active incorporation of L UE in day-to-day life. Therapist has begun to address personal mug manipulation w/ drinking and identifying additional meaningful activities to support carry- over that Mona can do without assistance if proper set-up is provided (e.g., beading). Recommend that therapist continues to address attention to left side body of space, bimanual coordination activities, motor abilities of L UE, and functional independence. Home Exercise Program Please refer to treatment section of note for specific details. Reviewed with Patient/Caregiver Progress Being Made Patient/Caregiver Understanding Good - Plan Therapy Recommendations Continue with Current Program, Advance per Rehabilitation Protocol Comment 12 weeks Frequency of Treatment Once a Week Therapeutic Contents Active Range of Motion, Adaptive Equipment Education, Client Education,Cognitive Skills Development,Functional Activities,Home Exercise Program,Joint Protection, Manual Therapy,Education, Neurodevelopment Treatment, Neuromuscular Re-Education, Self-Care,Stretching/ Flexibility Activities, Therapeutic Activities, Therapeutic Exercises, Modalities,Sensory Re- education Occupational Therapy Assessment OT Outpatient Standardized Assessments Start: 12/25/18 14:01 Freq: Status: Active Protocol: Document 04/17/19 11:21 AMS (Rec: 04/17/19 11:39 AMS [email or web address]) 9-Hole Peg Hand Test Hand Left Date of Test 04/10/19 Therapist UMA Acosta/Hardeep Interpretation Impaired Norm For Patients Age/Sex Females 18-19 years of age = 17.4 +/- 2.0 Comments 04/10/19= Scoring Time: 2 min 42 sec 01/13/19= Scoring Time: 4 min 55 sec Right Date of Test 01/13/19 Therapist UMA Acosta/Hardeep Interpretation Impaired Norm For Patients Age/Sex Females 18-19 years of age = 16.1 +/- 2.1 Comments Scoring Time = 29.0 seconds
--- NOTE | 2019-04-24 14:39 | OT.OP.TRT ---
Visit Care Team Role Provider Type Marylou Peace Referring Provider Non-Staff Specialty: Physical Medicine and Rehab Address: [address] [place] [address], [place], [address] Email: Kirstin Parmar DO Attending Provider Physician Family Provider Primary Care Provider Specialty: Family Practice Address: [address] [place] [address], [address], [address] Email: [email or web address] Occupational Therapy Treatment Note OT Outpatient Treatment Note - Adult Start: 11/04/18 17:11 Freq: Status: Active Protocol: Document 04/24/19 14:20 AMS (Rec: 04/24/19 14:39 AMS [email or web address]) OT Outpatient Adult Treatment Note Session Time Visit Start Time 10:30 Visit Stop Time 11:25 Total Visit Minutes 55 Visit Information Plan of Care Dates 04/17/19-07/10/2019 Insurance Information [employer]-Child Setting Treatment Setting Outpatient Care Visit Type Note Type Treatment Note General Information General Information Mona is a 17 year-old right hand dominant female referred to outpatient OT 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 Mona was accompanied by her Mother to initial evaluation; Mother reported that prior to surgery Mona had 'better drafter' and coordination of the L UE. PMH: significant for moderate intellectual disability, selective mutism, left hemianopsia, left sided weakness. - Subjective Identification Type Name Identification Reconciled With Medical Record Observations She is mostly getting dressed all by herself per Mother. She can definitely get undressed all by herself now. Chief Complaint(s) Restricts Patient/Caregiver Compliance with Home Good Exercise Program Comments w/ family support - Objective Objective Measurements Mona was seen 1:1 for OT treatment session. 04/24/19= Mother reports Mona is able to undress without assistance. 03/12/19= Untied shoe laces x 2 trials w/ 1 hand seated w/ use of stool. 02/06/19= Folded paper within 1/8-inch of edges of 8 1/2-inch x 11-inch paper . 02/02/19= unable to tie shoe laces (including inability to tie w/ 1 hand). 01/07/19= Able to manage diff size buttons; able to remove and put utensils back into corporate security officer utensil pascal. 01/05/19= Able to flip over various sized coins x 10 trials w/ L hand WFL. Able to open therapist's treatment room door x 2 trials w/ left hand w/ supervision and increased time; able to open horizontal drawer w/ left hand x 1 trial w/ supervision and increased time. Please refer to below for progress towards meeting established OT goals. Short Term Goals 1. Mona will be able to actively weight bear through the L UE (palm of hand) while standing at TT, x 1 minute, x 2 separate trials, while completing functional task with R UE, requiring maximum verbal and visual cues, and physical assistance from therapist with initial positioning of UE into weight bearing position at TT. = NOT A FOCUS 2. Mona will be able to actively weight shift L <-> R through the L UE (palm of hand ), while standing at TT, x 1 minute, x 2 separate trials, while completing functional task with the R UE, requiring maximum verbal and visual cues , and physical assistance from therapist. 04/17/19 = NOT A FOCUS 3. Mona will demonstrate improved functional motor abilities of the left hand, based on self-report of ability to open small food packets with active incorporation of the left hand on a daily basis with modified independence. = 25% met 4. Mona will be able to tie shoe laces 4 out of 5 trials, utilizing 2-different colored shoe laces set-up, requiring minimal verbal/visual cues from therapist. 04/10/19= 50% met GOALS MET Bounced tennis ball across TT, 8/10 trials, w/ L hand seated , w/ CGA to mod phys A w/ initial grasp. *MET 12/22/18 Transferred item lap -> L of body w/ L UE seated, w/ elbow ext, forearm sup, 9/10 trials, w/ min v.c. *MET 12/29/18 Flipped 10/10 cards w/ L hand utilizing edge of TT, w/ min v .c. *MET 01/01/19 Managing personal water bottle with L hand within home on daily basis w/ mod I. *MET [facility] Goals 1. Mona will be modified independent with execution of home exercise program with support of family utilizing provided written and visual instructions. 2. Mona will average 25.0 pounds of force with left drafter dynamometer strength testing. 3. Mona will be able to tie personal shoe laces, utilizing compensatory strategies, requiring supervision. - Treatment 7 Descriptor Self-care/Functional Activities Personal mug N/A 04/17/19 1-handed tying of shoe laces ( 2-different colored shoe laces box); mod verbal/visual cues/ CGA Management of mug 6 Descriptor Attention to L side 4 Descriptor UE motor coordination Bimanual coordination 2 Descriptor Eye-hand coordination L UE 500 grams 1x10 angled trampoline throwing to the left 3.3# spherical ball 2x10 angled trampoline frontal plane (1x10 focus on wrist extension w/ throw) Assist w/ catching on this date 1 Descriptor FM/Obj manipulation Black tongs (pom pom transfer at TT - assist w/ positioning tongs required); Grading of force of grasp (marble, ping pong ball); get-a-drafter; small cups; small/medium rings Complexity Upgraded Exercises 1 Descriptor HEP. Reviewed treatment session w/ Mother w/ Mnoa's presence. Education was completed re: goal of therapy is to maximize Mona's functional independence. Education was completed re: time management and age appropriate reward system to support Mona's functional independence in the home (e.g. , ). Both Mother and daughter denied questions. Complexity Upgraded - Assessment Patient Response to Treatment Good Rehab Potential Good Impairments Identified ADLs,Balance,Coordination/ Dexterity,Functional Activities,Motor Function, Weakness,Posture,Range of Motion,Recreational Activities ,Meaningful Activities,Motor Planning Assessment of Improvement Advanced HEP to incorporate opening of zip lock bags to support functional independence w/ meal preparation and being able to manage personal snack in various environments. Education was completed in re: purpose of OT therapy is to maximize Mona's functional independence. Mother reported that Mona is able to execute all doffing dressing tasks without physical assistance at this time; Mother also reported that Mona picks out her own clothing items for the day. Recommend that therapist continues to address attention to left side body of space, bimanual coordination activities, motor abilities of L UE, and functional independence. Home Exercise Program Please refer to treatment section of note for specific details. Reviewed with Patient/Caregiver Progress Being Made Patient/Caregiver Understanding Good - Plan Therapy Recommendations Continue with Current Program, Advance per Rehabilitation Protocol
--- NOTE | 2019-05-01 13:54 | OT.OP.TRT ---
Visit Care Team Role Provider Type Marylou Peace Referring Provider Non-Staff Specialty: Physical Medicine and Rehab Address: [address] [place] [address], [place], [address] Email: Kirstin Parmar DO Attending Provider Physician Family Provider Primary Care Provider Specialty: Family Practice Address: [address] [place] [address], [address], [address] Email: [email or web address] Occupational Therapy Treatment Note OT Outpatient Treatment Note - Adult Start: 11/04/18 17:11 Freq: Status: Active Protocol: Document 05/01/19 13:33 AMS (Rec: 05/01/19 13:54 AMS [id number]) OT Outpatient Adult Treatment Note Session Time Visit Start Time 10:40 Visit Stop Time 11:20 Total Visit Minutes 40 Visit Information Plan of Care Dates 04/17/19-07/10/2019 Insurance Information [employer]-Child Setting Treatment Setting Outpatient Care Visit Type Note Type Treatment Note General Information General Information Mona is a 17 year-old right hand dominant female referred to outpatient OT 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 Mona was accompanied by her Mother to initial evaluation; Mother reported that prior to surgery Mona had 'better bridge toll collector' and coordination of the L UE. PMH: significant for moderate intellectual disability, selective mutism, left hemianopsia, left sided weakness. - Subjective Identification Type Name Identification Reconciled With Medical Record Observations Hi per Mona. Treatment session shortened d/ t family arriving late to the appointment. Chief Complaint(s) Restricts Patient/Caregiver Compliance with Home Good Exercise Program Comments w/ family support - Objective Objective Measurements Mona was seen 1:1 for OT treatment session. 04/24/19= Mother reports Mona is able to undress without assistance. 03/12/19= Untied shoe laces x 2 trials w/ 1 hand seated w/ use of stool. 02/06/19= Folded paper within 1/8-inch of edges of 8 1/2-inch x 11-inch paper . 02/02/19= unable to tie shoe laces (including inability to tie w/ 1 hand). 01/07/19= Able to manage diff size buttons; able to remove and put utensils back into corrosion control technician utensil [place]. 01/05/19= Able to flip over various sized coins x 10 trials w/ L hand WFL. Able to open therapist's treatment room door x 2 trials w/ left hand w/ supervision and increased time; able to open horizontal drawer w/ left hand x 1 trial w/ supervision and increased time. Please refer to below for progress towards meeting established OT goals. Short Term Goals 1. Mona will be able to actively weight bear through the L UE (palm of hand) while standing at TT, x 1 minute, x 2 separate trials, while completing functional task with R UE, requiring maximum verbal and visual cues, and physical assistance from therapist with initial positioning of UE into weight bearing position at TT. = NOT A FOCUS 2. Mona will be able to actively weight shift L <-> R through the L UE (palm of hand ), while standing at TT, x 1 minute, x 2 separate trials, while completing functional task with the R UE, requiring maximum verbal and visual cues , and physical assistance from therapist. 04/17/19 = NOT A FOCUS 3. Mona will demonstrate improved functional motor abilities of the left hand, based on self-report of ability to open small food packets with active incorporation of the left hand on a daily basis with modified independence. = 25% met 4. Mona will be able to tie shoe laces 4 out of 5 trials, utilizing 2-different colored shoe laces set-up, requiring minimal verbal/visual cues from therapist. 04/10/19= 50% met GOALS MET Bounced tennis ball across TT, 8/10 trials, w/ L hand seated , w/ CGA to mod phys A w/ initial grasp. *MET 12/22/18 Transferred item lap -> L of body w/ L UE seated, w/ elbow ext, forearm sup, 9/10 trials, w/ min v.c. *MET 12/29/18 Flipped 10/10 cards w/ L hand utilizing edge of TT, w/ min v .c. *MET 01/01/19 Managing personal water bottle with L hand within home on daily basis w/ mod I. *MET Assisted Goals 1. Mona will be modified independent with execution of home exercise program with support of family utilizing provided written and visual instructions. 2. Mona will average 25.0 pounds of force with left bridge toll collector dynamometer strength testing. 3. Mona will be able to tie personal shoe laces, utilizing compensatory strategies, requiring supervision. - Treatment 7 Descriptor Self-care/Functional Activities N/A 04/17/19 1-handed tying of shoe laces ( 2-different colored shoe laces box); mod verbal/visual cues/ CGA Management of mug 6 Descriptor Attention to L side 4 Descriptor UE motor coordination Bimanual coordination 2 Descriptor Eye-hand coordination L UE 3.3# spherical ball 1x10 angled trampoline frontal plane (1x10 focus on wrist extension w/ throw) Assist w/ catching 1 Descriptor FM/Obj manipulation Tweezers (pom pom transfer at TT - assist w/ positioning tongs required); grading of force of grasp; small cups; thumb tacks Complexity Upgraded Exercises 1 Descriptor HEP. Reviewed treatment session w/ Mother and Father w / Mona's presence. HEP upgraded on this treatment date with input from Mother. Initiated management of personal laundry (cleaning up laundry) with the left hand. Written instructions were provided. Family denied questions. Complexity Upgraded - Assessment Patient Response to Treatment Good Rehab Potential Good Impairments Identified ADLs,Balance,Coordination/ Dexterity,Functional Activities,Motor Function, Weakness,Posture,Range of Motion,Recreational Activities ,Meaningful Activities,Motor Planning Assessment of Improvement Advanced HEP on this treatment date. Transitioned from tongs to tweezers; assist to initiate dynamic grasp and cueing to maintain grasp w/ incorporation of the 2nd digit . Unable to manipulate toothpicks. Impaired motor planning of the UE. Recommend that therapist continues to address attention to left side body of space, bimanual coordination activities, motor abilities of L UE, and functional independence. Home Exercise Program Please refer to treatment section of note for specific details. Reviewed with Patient/Caregiver Progress Being Made Patient/Caregiver Understanding Good - Plan Therapy Recommendations Continue with Current Program, Advance per Rehabilitation Protocol
--- NOTE | 2019-05-08 11:50 | OT.OP.TRT ---
Visit Care Team Role Provider Type Marylou Peace Referring Provider Non-Staff Specialty: Physical Medicine and Rehab Address: [address] [place] [address], [place], [address] Email: Kirstin Parmar DO Attending Provider Physician Family Provider Primary Care Provider Specialty: Family Practice Address: [address] [place] [address], [address], [address] Email: [email or web address] Occupational Therapy Treatment Note OT Outpatient Treatment Note - Adult Start: 11/04/18 17:11 Freq: Status: Active Protocol: Document 05/08/19 11:39 AMS (Rec: 05/08/19 11:50 AMS [id number]) OT Outpatient Adult Treatment Note Session Time Visit Start Time 10:35 Visit Stop Time 11:25 Total Visit Minutes 50 Visit Information Plan of Care Dates 04/17/19-07/10/2019 Insurance Information [employer]-Child Setting Treatment Setting Outpatient Care Visit Type Note Type Treatment Note General Information General Information Mona is a 17 year-old right hand dominant female referred to outpatient OT 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 Mona was accompanied by her Mother to initial evaluation; Mother reported that prior to surgery Mona had 'better employee health nurse' and coordination of the L UE. PMH: significant for moderate intellectual disability, selective mutism, left hemianopsia, left sided weakness. - Subjective Identification Type Name Identification Reconciled With Medical Record Observations My dad brushes my hair per Mona. She really doesn't like her teeth to be brushed. It would be great if you could work on that per Mother. I usually try to finger comb it per Mother in re: hair. Yes per Mona in re: willingness to practice brushing hair w/ hair brush being placed in R hand. Chief Complaint(s) Restricts Patient/Caregiver Compliance with Home Good Exercise Program Comments w/ family support - Objective Objective Measurements Mona was seen 1:1 for OT treatment session. 05/08/19= Dependent w/ brushing hair; dislikes hair being brushed. Dislikes having teeth brushed more. 04/24/19= Mother reports Mona is able to undress without assistance. 03/12/19= Untied shoe laces x 2 trials w / 1 hand seated w/ use of stool. 02/06/19= Folded paper within 1/8-inch of edges of 8 1/2-inch x 11-inch paper. 02/02= unable to tie shoe laces (including inability to tie w/ 1 hand). 01/07/19= Able to manage diff size buttons; able to remove and put utensils back into stucco mason utensil [place]. 01/05/19= Able to flip over various sized coins x 10 trials w/ L hand WFL. Able to open therapist's treatment room door x 2 trials w/ left hand w/ supervision and increased time; able to open horizontal drawer w/ left hand x 1 trial w/ supervision and increased time. Please refer to below for progress towards meeting established OT goals. Short Term Goals 1. Mona will be able to actively weight shift L <-> R through the L UE (palm of hand ), while standing at TT, x 1 minute, x 2 separate trials, while completing functional task with the R UE, requiring maximum verbal and visual cues , and physical assistance from therapist. 04/17/19 = NOT A FOCUS 2. Mona will demonstrate improved functional motor abilities of the left hand, based on self-report of ability to open small food packets with active incorporation of the left hand on a daily basis with modified independence. = 25% met 3. Mona will be able to tie shoe laces 4 out of 5 trials, utilizing 2-different colored shoe laces set-up, requiring minimal verbal/visual cues from therapist. 04/10/19= 50% met GOALS MET Bounced tennis ball across TT, 8/10 trials, w/ L hand seated , w/ CGA to mod phys A w/ initial grasp. *MET 12/22/18 Transferred item lap -> L of body w/ L UE seated, w/ elbow ext, forearm sup, 9/10 trials, w/ min v.c. *MET 12/29/18 Flipped 10/10 cards w/ L hand utilizing edge of TT, w/ min v .c. *MET 01/01/19 Managing personal water bottle with L hand within home on daily basis w/ mod I. *MET WB through the L UE (palm of hand) w/ cueing from therapist while in standing. *MET Fine Grader Goals 1. Mona will be modified independent with execution of home exercise program with support of family utilizing provided written and visual instructions. 2. Mona will average 25.0 pounds of force with left employee health nurse dynamometer strength testing. 3. Mona will be able to tie personal shoe laces, utilizing compensatory strategies, requiring supervision. 4. Mona will be able to demonstrate improved functional independence; this will be evidenced by ability to brush/comb hair with modified independence utilizing visual feedback. - Treatment 7 Descriptor Self-care/Functional Activities N/A 04/17/19 1-handed tying of shoe laces ( 2-different colored shoe laces box); mod verbal/visual cues/ CGA Management of mug 6 Descriptor Attention to L side 4 Descriptor UE motor coordination Bimanual coordination 2 Descriptor Eye-hand coordination L UE 3.3# spherical ball 1x10 angled trampoline frontal plane (1x10 focus on wrist extension w/ throw) Assist w/ catching 1 Descriptor FM/Obj manipulation Grading of force of grasp - ball; small pegs/pegboard; get -a-employee health nurse x 10 reps; snap button puzzle at incline to support wrist extension Complexity Upgraded Exercises 3 Descriptor Sh abd Side Left Body Position Sitting Sets 2 Repetitions 10 Resistance TB #3 2 Descriptor Sh ext Side Left Body Position Sitting Sets 2 Repetitions 10 Resistance TB #3 1 Descriptor HEP/POC. Reviewed treatment session w/ Mother w/ Mona's presence. Therapist requested that Mother bring in personal brush/comb for Mona to use at time of next treatment session so that therapist can address functional independence w/ brushing hair; kaylee complete w/ R UE per patient request and given sensitivity to input w/ scarring. Mother denied questions. Mother would like therapist to address tooth brushing at some time given Mona's resistance. Requested that Mother make additional appointments given that 05/08 was Mona's last schedule OT appt. Complexity Upgraded - Assessment Patient Response to Treatment Good Rehab Potential Good Impairments Identified ADLs,Balance,Coordination/ Dexterity,Functional Activities,Motor Function, Weakness,Posture,Range of Motion,Recreational Activities ,Meaningful Activities,Motor Planning Assessment of Improvement Improving grading of force and ability to manipulate smaller objects w/ hand; cueing to avoid gross grasp w/ object manipulation w/ reliance on thumb manipulation. Preference for TB exercises versus use of strength equipment in larger part of gym. Decreased functional independence w/ execution of g/h tasks. Initiated slanted surface to support wrist extension; recommend repeating. Recommend that therapist continues to address attention to left side body of space, bimanual coordination activities, motor abilities of L UE, and functional independence. Home Exercise Program Please refer to treatment section of note for specific details. Reviewed with Patient/Caregiver Progress Being Made Patient/Caregiver Understanding Good - Plan Therapy Recommendations Continue with Current Program, Advance per Rehabilitation Protocol Additional Therapy Recommendations Schedule additional appts
--- NOTE | 2019-05-26 15:30 | OT.OP.TRT ---
Visit Care Team Role Provider Type Marylou Peace Referring Provider Non-Staff Specialty: Physical Medicine and Rehab Address: [address] [place] [address], [place], [address] Email: Kirstin Parmar DO Attending Provider Physician Family Provider Primary Care Provider Specialty: Family Practice Address: [address] [place] [address], [address], [address] Email: [email or web address] Occupational Therapy Treatment Note OT Outpatient Treatment Note - Adult Start: 11/04/18 17:11 Freq: Status: Active Protocol: Document 05/26/19 15:30 AMS (Rec: 05/27/19 08:58 AMS [id number]) OT Outpatient Adult Treatment Note Session Time Visit Start Time 14:30 Visit Stop Time 15:20 Total Visit Minutes 50 Visit Information Plan of Care Dates 04/17/19-07/10/2019 Insurance Information [employer]-Child Setting Treatment Setting Outpatient Care Visit Type Note Type Treatment Note General Information General Information Mona is a 17 year-old right hand dominant female referred to outpatient OT 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 Mona was accompanied by her Mother to initial evaluation; Mother reported that prior to surgery Mona had 'better dental aide' and coordination of the L UE. PMH: significant for moderate intellectual disability, selective mutism, left hemianopsia, left sided weakness. - Subjective Identification Type Name Identification Reconciled With Medical Record Observations She has an appointment down at [facility] tomorrow with the neurologist per Mother. Yes per Mona in re: therapist's question if she has been practicing her arm exercises at home. Chief Complaint(s) Restricts Patient/Caregiver Compliance with Home Good Exercise Program Comments w/ family support - Objective Objective Measurements Mona was seen 1:1 for OT treatment session. 05/08/19= Dependent w/ brushing hair; dislikes hair being brushed. Dislikes having teeth brushed more. 04/24/19= Mother reports Mona is able to undress without assistance. 03/12/19= Untied shoe laces x 2 trials w / 1 hand seated w/ use of stool. 02/06/19= Folded paper within 1/8-inch of edges of 8 1/2-inch x 11-inch paper. 02/02= unable to tie shoe laces (including inability to tie w/ 1 hand). 01/07/19= Able to manage diff size buttons; able to remove and put utensils back into analyst [employer] utensil [place]. 01/05/19= Able to flip over various sized coins x 10 trials w/ L hand WFL. Able to open therapist's treatment room door x 2 trials w/ left hand w/ supervision and increased time; able to open horizontal drawer w/ left hand x 1 trial w/ supervision and increased time. Please refer to below for progress towards meeting established OT goals. Short Term Goals 1. Mona will demonstrate improved functional motor abilities of the left hand, based on self-report of ability to open small food packets with active incorporation of the left hand on a daily basis with modified independence. = 25% met 2. Mona will be able to tie shoe laces 4 out of 5 trials, utilizing 2-different colored shoe laces set-up, requiring minimal verbal/visual cues from therapist. 04/10/19= 50% met GOALS MET Bounced tennis ball across TT, 8/10 trials, w/ L hand seated , w/ CGA to mod phys A w/ initial grasp. *MET 12/22/18 Transferred item lap -> L of body w/ L UE seated, w/ elbow ext, forearm sup, 9/10 trials, w/ min v.c. *MET 12/29/18 Flipped 10/10 cards w/ L hand utilizing edge of TT, w/ min v .c. *MET 01/01/19 Managing personal water bottle with L hand within home on daily basis w/ mod I. *MET WB through the L UE (palm of hand) w/ cueing from therapist while in standing. *MET WB shift L <-> R through the L UE standing at TT, x 1 minute w/ max v.c. *MET 05/26/19 [facility] Goals 1. Mona will be modified independent with execution of home exercise program with support of family utilizing provided written and visual instructions. 2. Mona will average 25.0 pounds of force with left dental aide dynamometer strength testing. 3. Mona will be able to tie personal shoe laces, utilizing compensatory strategies, requiring supervision. 4. Mona will be able to demonstrate improved functional independence; this will be evidenced by ability to brush/comb hair with modified independence utilizing visual feedback. - Treatment 6 Descriptor Attention to L side 4 Descriptor UE motor coordination. Bimanual UE coordination. 2 Descriptor Eye-hand coordination L UE 500 gm weighted ball 2x10; 3.3 # weighted ball 2x10 angled trampoline w/ focus on digit/ wrist ext w/ throw) 1 Descriptor Fine motor. Object manipulation. Focus on wrist/ digit extension w/ object manipulation w/ environmental modifications. Exercises 6 Descriptor Spherical ball pick-up. Side Left Body Position Seated Sets 2 Repetitions 10 Resistance 3.3#; 4.4# 5 Descriptor Row Side Left Body Position Seated Sets 2 Repetitions 10 Resistance TB #4 2 Descriptor Sh ext Side Left Body Position Sitting Sets 2 Repetitions 10 Resistance TB #4 1 Descriptor HEP/POC. Reviewed treatment session w/ Mother w/ Mona's presence. Requested that Mona practice pointing with the L hand/UE when communicating needs/wants nonverbally. Therapist continues to request that Mother bring in personal brush /comb for Mona to use at time of next treatment session so that therapist can address functional independence w/ brushing hair. Complexity Upgraded - Assessment Patient Response to Treatment Good Rehab Potential Good Impairments Identified ADLs,Balance,Coordination/ Dexterity,Functional Activities,Motor Function, Weakness,Posture,Range of Motion,Recreational Activities ,Meaningful Activities,Motor Planning Assessment of Improvement Decreased functional independence w/ execution of g /h tasks. Decreased spontaneous incorporation of L UE in day-to-day life; positioning into flexion pattern inside of sweatshirt arm despite cueing. Improving digit/wrist ext; recommend repeating environmental modifications. Inconsistent w/ 2nd digit isolation of L UE; increased success w/ repetitions. Recommend that therapist continues to address attention to left side body of space, bimanual coordination activities, motor abilities of L UE, and functional independence. Home Exercise Program Please refer to treatment section of note for specific details. Reviewed with Patient/Caregiver Progress Being Made Patient/Caregiver Understanding Good - Plan Therapy Recommendations Continue with Current Program, Advance per Rehabilitation Protocol Additional Therapy Recommendations Consult w/ PT Treatment Emphasis Next Session Functional motor planning
--- NOTE | 2019-06-11 15:30 | OT.OP.TRT ---
Visit Care Team Role Provider Type Marylou Peace Referring Provider Non-Staff Specialty: Physical Medicine and Rehab Address: [address] [place] [address], [place], [address] Email: Kirstin Parmar DO Attending Provider Physician Family Provider Primary Care Provider Specialty: Family Practice Address: [address] [place] [address], [address], [address] Email: [email or web address] Occupational Therapy Treatment Note OT Outpatient Treatment Note - Adult Start: 11/04/18 17:11 Freq: Status: Active Protocol: Document 06/11/19 15:15 AMS (Rec: 06/12/19 14:07 AMS [email or web address]) OT Outpatient Adult Treatment Note Session Time Visit Start Time 14:30 Visit Stop Time 15:20 Total Visit Minutes 50 Visit Information Plan of Care Dates 04/17/19-07/10/2019 Insurance Information [employer]-Child Setting Treatment Setting Outpatient Care Visit Type Note Type Treatment Note General Information General Information Mona is a 17 year-old right hand dominant female referred to outpatient OT 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 Mona was accompanied by her Mother to initial evaluation; Mother reported that prior to surgery Mona had 'better content strategy lead' and coordination of the L UE. PMH: significant for moderate intellectual disability, selective mutism, left hemianopsia, left sided weakness. - Subjective Identification Type Name Identification Reconciled With Medical Record Observations Yes per Mona in response to if she has been using her hand at home and practicing. Chief Complaint(s) Restricts Patient/Caregiver Compliance with Home Good Exercise Program Comments w/ family support - Objective Objective Measurements Mona was seen 1:1 for OT treatment session. 05/08/19= Dependent w/ brushing hair; dislikes hair being brushed. Dislikes having teeth brushed more. 04/24/19= Mother reports Mona is able to undress without assistance. 03/12/19= Untied shoe laces x 2 trials w / 1 hand seated w/ use of stool. 02/06/19= Folded paper within 1/8-inch of edges of 8 1/2-inch x 11-inch paper. 02/02= unable to tie shoe laces (including inability to tie w/ 1 hand). 01/07/19= Able to manage diff size buttons; able to remove and put utensils back into pearl technician utensil pascal. 01/05/19= Able to flip over various sized coins x 10 trials w/ L hand WFL. Able to open therapist's treatment room door x 2 trials w/ left hand w/ supervision and increased time; able to open horizontal drawer w/ left hand x 1 trial w/ supervision and increased time. Please refer to below for progress towards meeting established OT goals. Short Term Goals 1. Mona will demonstrate improved functional motor abilities of the left hand, based on self-report of ability to open small food packets with active incorporation of the left hand on a daily basis with modified independence. = 25% met 2. Mona will be able to tie shoe laces 4 out of 5 trials, utilizing 2-different colored shoe laces set-up, requiring minimal verbal/visual cues from therapist. 04/10/19= 50% met GOALS MET Bounced tennis ball across TT, 8/10 trials, w/ L hand seated , w/ CGA to mod phys A w/ initial grasp. *MET 12/22/18 Transferred item lap -> L of body w/ L UE seated, w/ elbow ext, forearm sup, 9/10 trials, w/ min v.c. *MET 12/29/18 Flipped 10/10 cards w/ L hand utilizing edge of TT, w/ min v .c. *MET 01/01/19 Managing personal water bottle with L hand within home on daily basis w/ mod I. *MET WB through the L UE (palm of hand) w/ cueing from therapist while in standing. *MET WB shift L <-> R through the L UE standing at TT, x 1 minute w/ max v.c. *MET 05/26/19 [facility] Goals 1. Mona will be modified independent with execution of home exercise program with support of family utilizing provided written and visual instructions. 2. Mona will average 25.0 pounds of force with left content strategy lead dynamometer strength testing. 3. Mona will be able to tie personal shoe laces, utilizing compensatory strategies, requiring supervision. 4. Mona will be able to demonstrate improved functional independence; this will be evidenced by ability to brush/comb hair with modified independence utilizing visual feedback. - Treatment 6 Descriptor Attention to L side 4 Descriptor UE motor coordination. Bimanual UE coordination. 1 Descriptor Fine motor. Obj manip. Focus on wrist/digit extension w/ obj manip w/ environmental modifications. Radial side of hand obj manip; thumb coordination to support in- hand obj manip. Complexity Upgraded Exercises 6 Descriptor Spherical ball pick-up. Side Left Body Position Seated Sets 2 Repetitions 10 Resistance 3.3#; 4.4# 5 Descriptor Row Side Left Body Position Seated Sets 2 Repetitions 10 Resistance TB #4 2 Descriptor Sh strengthening. Sh ext. Sh flex. Sh abd. Side Left Body Position Sitting Sets 2 Repetitions 10 Resistance TB #4 1 Descriptor HEP/POC. Reviewed treatment session w/ Mother w/ Mona's presence. Discussed working on positioning of fingers in extension (partially visible out of R sleeve) to avoid protective posturing of UE. Mother and daughter denied questions. Complexity Upgraded - Assessment Patient Response to Treatment Good Rehab Potential Good Assessment of Improvement Decreased spontaneous incorporation of L UE in day- to-day life; positioning into flexion pattern inside of sweatshirt arm despite cueing. Poor grading of radial side w / obj manip; unsuccessful w/ in-hand manip w/ coordination of thumb. (+) frustation in response to in hand palmar obj rotation w/ thumb. Recommend that therapist continues to address attention to left side body of space, bimanual coordination activities, motor abilities of L UE, and functional independence. Home Exercise Program Please refer to treatment section of note for specific details. Reviewed with Patient/Caregiver Progress Being Made Patient/Caregiver Understanding Good - Plan Therapy Recommendations Continue with Current Program, Advance per Rehabilitation Protocol Additional Therapy Recommendations Consult w/ PT
--- NOTE | 2019-06-18 15:30 | OT.OP.TRT ---
Visit Care Team Role Provider Type Marylou Peace Referring Provider Non-Staff Specialty: Physical Medicine and Rehab Address: [address] [place] [address], [place], [address] Email: Kirstin Parmar DO Attending Provider Physician Family Provider Primary Care Provider Specialty: Family Practice Address: [address] [place] [address], [address], [address] Email: [email or web address] Occupational Therapy Treatment Note OT Outpatient Treatment Note - Adult Start: 11/04/18 17:11 Freq: Status: Active Protocol: Document 06/18/19 15:30 AMS (Rec: 06/19/19 07:48 AMS [email or web address]) OT Outpatient Adult Treatment Note Session Time Visit Start Time 14:30 Visit Stop Time 15:20 Total Visit Minutes 50 Visit Information Plan of Care Dates 04/17/19-07/10/2019 Insurance Information [employer]-Child Setting Treatment Setting Outpatient Care Visit Type Note Type Treatment Note General Information General Information Mona is a 17 year-old right hand dominant female referred to outpatient OT 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 Mona was accompanied by her Mother to initial evaluation; Mother reported that prior to surgery Mona had 'better steam pipe fitter' and coordination of the L UE. PMH: significant for moderate intellectual disability, selective mutism, left hemianopsia, left sided weakness. - Subjective Identification Type Name Identification Reconciled With Medical Record Observations Yes per Mona in response to whether or not she had been working on the compromise of positioning of hand in sleeve (fingers). Chief Complaint(s) Restricts Patient/Caregiver Compliance with Home Good Exercise Program Comments w/ family support - Objective Objective Measurements Mona was seen 1:1 for OT treatment session. Re-assessed L steam pipe fitter strength; see standardized section of notes for specific details. 05/08/19= Dependent w/ brushing hair; dislikes hair being brushed. Dislikes having teeth brushed more. 04/24/19= Mother reports Mona is able to undress without assistance. 03/12/19= Untied shoe laces x 2 trials w / 1 hand seated w/ use of stool. 02/06/19= Folded paper within 1/8-inch of edges of 8 1/2-inch x 11-inch paper. 02/02= unable to tie shoe laces (including inability to tie w/ 1 hand). 01/07/19= Able to manage diff size buttons; able to remove and put utensils back into key cutter utensil pascal. 01/05/19= Able to flip over various sized coins x 10 trials w/ L hand WFL. Able to open therapist's treatment room door x 2 trials w/ left hand w/ supervision and increased time; able to open horizontal drawer w/ left hand x 1 trial w/ supervision and increased time. Please refer to below for progress towards meeting established OT goals. Short Term Goals 1. Mona will demonstrate improved functional motor abilities of the left hand, based on self-report of ability to open small food packets with active incorporation of the left hand on a daily basis with modified independence. = 25% met 2. Mona will be able to tie shoe laces 4 out of 5 trials, utilizing 2-different colored shoe laces set-up, requiring minimal verbal/visual cues from therapist. 04/10/19= 50% met GOALS MET Bounced tennis ball across TT, 8/10 trials, w/ L hand seated , w/ CGA to mod phys A w/ initial grasp. *MET 12/22/18 Transferred item lap -> L of body w/ L UE seated, w/ elbow ext, forearm sup, 9/10 trials, w/ min v.c. *MET 12/29/18 Flipped 10/10 cards w/ L hand utilizing edge of TT, w/ min v .c. *MET 01/01/19 Managing personal water bottle with L hand within home on daily basis w/ mod I. *MET WB through the L UE (palm of hand) w/ cueing from therapist while in standing. *MET WB shift L <-> R through the L UE standing at TT, x 1 minute w/ max v.c. *MET 05/26/19 [employer] Goals 1. Mona will be modified independent with execution of home exercise program with support of family utilizing provided written and visual instructions. 2. Mona will average 37.0 pounds of force or more with left steam pipe fitter dynamometer strength testing. 3. Mona will be able to tie personal shoe laces, utilizing compensatory strategies, requiring supervision. 4. Mona will be able to demonstrate improved functional independence; this will be evidenced by ability to brush/comb hair with modified independence utilizing visual feedback. GOALS MET Will avg 25.0 pounds of force with L steam pipe fitter dynamometer strength testing. *MET = avg 30.0# L steam pipe fitter - Treatment 6 Descriptor Attention to L side 4 Descriptor UE motor coordination. Bimanual UE coordination. 2 Descriptor Eye-hand coordination L UE. 3. 3# weighted ball 2x10 angled trampoline w/ focus on digit/ wrist ext w/ throw) 1 Descriptor Fine motor. Obj manip. Focus on wrist/digit extension w/ obj manip w/ environmental modifications. Resistant clothespins above eye level; get-a-steam pipe fitter vertical surface w/ removal; small pegs. Complexity Upgraded Exercises 6 Descriptor Spherical ball pick-up. Side Left Body Position Seated Sets 2 Repetitions 10 Resistance 3.3#; 4.4# 2 Descriptor Sh strengthening. Sh ext. Sh flex. Sh abd. Seated Row. Side Left Body Position Sitting Sets 2 Repetitions 10 Resistance TB #4 Complexity Upgraded 1 Descriptor HEP/POC. Reviewed treatment session w/ Mother w/ Mona's presence. Discussed working on positioning of fingers in extension (partially visible out of R sleeve) to avoid protective posturing of UE. Mother and daughter denied questions. Complexity Upgraded - Assessment Patient Response to Treatment Good Rehab Potential Good Assessment of Improvement Decreased spontaneous incorporation of L UE in day- to-day life; slightly improving positioning of UE within arm sleeve w/ identification of compromise. Improving L steam pipe fitter strength; avg 30# of force w/ L steam pipe fitter. Goal upgraded accordingly. Improving grading of force w/ manager outreach; decreased motor planning w/ smaller object manip above eye level. Recommend that therapist continues to address attention to left side body of space, bimanual coordination activities, motor abilities of L UE, and functional independence. Activities rec: get-a-steam pipe fitter; resistant clothespins above eye-level; small pegs w/ pegboard Home Exercise Program Please refer to treatment section of note for specific details. Reviewed with Patient/Caregiver Progress Being Made Patient/Caregiver Understanding Good - Plan Therapy Recommendations Continue with Current Program, Advance per Rehabilitation Protocol Additional Therapy Recommendations Consult w/ PT; req additional appts scheduled
--- NOTE | 2019-06-25 15:30 | OT.OP.TRT ---
Visit Care Team Role Provider Type Marylou Peace Referring Provider Non-Staff Specialty: Physical Medicine and Rehab Address: [address] [place] [address], [place], [address] Email: Kirstin Parmar DO Attending Provider Physician Family Provider Primary Care Provider Specialty: Family Practice Address: [address] [place] [address], [address], [address] Email: [email or web address] Occupational Therapy Treatment Note OT Outpatient Treatment Note - Adult Start: 11/04/18 17:11 Freq: Status: Active Protocol: Document 06/25/19 15:30 AMS (Rec: 06/26/19 09:14 AMS [email or web address]) OT Outpatient Adult Treatment Note Session Time Visit Start Time 14:30 Visit Stop Time 15:20 Total Visit Minutes 50 Visit Information Plan of Care Dates 04/17/19-07/10/2019 Insurance Information [employer]-Child Setting Treatment Setting Outpatient Care Visit Type Note Type Treatment Note General Information General Information Mona is a 17 year-old right hand dominant female referred to outpatient OT 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 Mona was accompanied by her Mother to initial evaluation; Mother reported that prior to surgery Mona had 'better strategic planning consultant' and coordination of the L UE. PMH: significant for moderate intellectual disability, selective mutism, left hemianopsia, left sided weakness. - Subjective Identification Type Name Identification Reconciled With Medical Record Observations Yes per Mona in response to whether or not she had been working on the compromise of positioning of hand. She has been doing more things on her own per Mother. She was putting things together last night for dinner without me knowing. Chief Complaint(s) Restricts Patient/Caregiver Compliance with Home Good Exercise Program Comments w/ family support - Objective Objective Measurements Mona was seen 1:1 for OT treatment session. Re-assessed L strategic planning consultant strength; see standardized section of notes for specific details. 05/08/19= Dependent w/ brushing hair; dislikes hair being brushed. Dislikes having teeth brushed more. 10/18/19= Mother reports Mona is able to undress without assistance. 03/12/19= Untied shoe laces x 2 trials w / 1 hand seated w/ use of stool. 02/06/19= Folded paper within 1/8-inch of edges of 8 1/2-inch x 11-inch paper. 02/02= unable to tie shoe laces (including inability to tie w/ 1 hand). 01/07/19= Able to manage diff size buttons; able to remove and put utensils back into supervisor bridges and buildings utensil [place]. 01/05/19= Able to flip over various sized coins x 10 trials w/ L hand WFL. Able to open therapist's treatment room door x 2 trials w/ left hand w/ supervision and increased time; able to open horizontal drawer w/ left hand x 1 trial w/ supervision and increased time. Please refer to below for progress towards meeting established OT goals. Short Term Goals 1. Mona will demonstrate improved functional motor abilities of the left hand, based on self-report of ability to open small food packets with active incorporation of the left hand on a daily basis with modified independence. = 25% met 2. Mona will be able to tie shoe laces 4 out of 5 trials, utilizing 2-different colored shoe laces set-up, requiring minimal verbal/visual cues from therapist. 04/10/19= 50% met GOALS MET Bounced tennis ball across TT, 8/10 trials, w/ L hand seated , w/ CGA to mod phys A w/ initial grasp. *MET 12/22/18 Transferred item lap -> L of body w/ L UE seated, w/ elbow ext, forearm sup, 9/10 trials, w/ min v.c. *MET 12/29/18 Flipped 10/10 cards w/ L hand utilizing edge of TT, w/ min v .c. *MET 01/01/19 Managing personal water bottle with L hand within home on daily basis w/ mod I. *MET WB through the L UE (palm of hand) w/ cueing from therapist while in standing. *MET WB shift L <-> R through the L UE standing at TT, x 1 minute w/ max v.c. *MET 05/26/19 Ruling Machine Feeder Goals 1. Mona will be modified independent with execution of home exercise program with support of family utilizing provided written and visual instructions. 2. Mona will average 37.0 pounds of force or more with left strategic planning consultant dynamometer strength testing. 06/25/19= 50% met 3. Mona will be able to tie personal shoe laces, utilizing compensatory strategies, requiring supervision. 4. Mona will be able to demonstrate improved functional independence; this will be evidenced by ability to brush/comb hair with modified independence utilizing visual feedback. GOALS MET Will avg 25.0 pounds of force with L strategic planning consultant dynamometer strength testing. *MET = avg 30.0# L strategic planning consultant - Treatment 6 Descriptor Attention to L side 4 Descriptor UE motor coordination. Bimanual UE coordination. 2- handed 7-inch bounced ball catch seated at chest height. 2-handed 7-inch ball catch w/ underhand arc and 2-handed overhead throw seated. Complexity Upgraded 2 Descriptor Eye-hand coordination L UE. 3. 3# weighted ball 2x10 angled trampoline w/ focus on digit/ wrist ext w/ throw) 1 Descriptor Fine motor. Obj manip. Focus on wrist/digit extension w/ obj manip w/ environmental modifications. Resistant clothespins above eye level. Get-a-strategic planning consultant vertical surface w/ removal. Marbles. Exercises 3 Descriptor Elbow ext. Side Left Body Position Sitting Sets 1 Repetitions 10 Resistance TB #4 2 Descriptor Sh strengthening. Sh ext. Sh flex. Sh abd. Seated Row. Side Left Body Position Sitting Sets 1 Repetitions 10 Resistance TB #4 1 Descriptor HEP/POC. Reviewed treatment session w/ Mother w/ Mona's presence. No additonal changes to HEP/POC were made at this time. Discussed limited additional visits scheduled at this time for outpatient OT. Mother verbalized understanding. - Assessment Patient Response to Treatment Good Rehab Potential Good Assessment of Overall Progress Unchanged Assessment of Improvement Improving grading of force w/ the left hand at shoulder height and above eye level; improving bimanual coordination compared to time of initial eval. Improving self-directed functional independence as reported by Mother in the home (e.g., starting simple meal prep on own). Decreased attention to L side; increased reliance on R UE. Recommend that therapist continues to address attention to left side body of space, bimanual coordination activities, motor abilities of L UE, and functional independence. Activities rec: get-a-strategic planning consultant; resistant clothespins above eye-level; small pegs w/ pegboard; bimanual activities Home Exercise Program Please refer to treatment section of note for specific details. Reviewed with Patient/Caregiver Progress Being Made Patient/Caregiver Understanding Good - Plan Therapy Recommendations Continue with Current Program, Advance per Rehabilitation Protocol Additional Therapy Recommendations Consult w/ PT; req additional appts scheduled
--- NOTE | 2019-07-02 16:00 | OT.OP.REEVAL ---
Visit Care Team Role Provider Type Marylou Peace Referring Provider Non-Staff Address: [address] [place] [address], [place], [address] Email: Kirstin Parmar DO Attending Provider Physician Family Provider Primary Care Provider Address: [address] [place] [address], [facility] [address], [place], [address] Email: [email or web address] Outpatient OT Outpatient Adult Evaluation Start: 11/04/18 17:11 Freq: Status: Active Protocol: Document 11/04/18 17:12 AMS (Rec: 11/04/18 17:28 AMS [email or web address]) General Information Session Time Visit Start Time 12:30 Visit Stop Time 13:15 Total Visit Minutes 45 Visit Information Plan of Care Dates 11/04/18-01/27/19 Insurance Information [employer]-Child Visit Type Note Type Initial Evaluation Identification Identification Confirmed Yes Identification Confirmed By Mother Medical Information Medical History Per chart review: Mona is a 17 year-old right hand dominant girl with h/o intractable seizures and 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 Seizures resumed s/p procedure. 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 PMH: significant for moderate intellectual disability, selective mutism, left hemianopsia, left sided weakness. ADLs Overall Ability Comments Impaired; mod I w/ UB/LB dressing per Mother Goals Objective Measurements Objective Measurements Impaired sensation of the L UE ; protective behaviors of L UE ('hiding hand/UE in sleeve of long sleeved shirt'); decreased initiation and ability to follow multi-step directions; decreased volitional motor coordination of L UE; tendency into flexion pattern w/ hand; L elbow flexion/extension WFL w/ environmental modifications to support; L forearm pronation WFL; PROM of L UE observed to be overhead w/ use of pulleys; decreased AROM of L wrist; minimal active L forearm supination; decreased active sh ROM; unable to complete formal ROM testing of L UE; R UE AROM WFL observed w/ functional movements; decreased functional independence. Treatment Treatment Education re: protective behaviors and use of clothing. Mother and daughter denied questions. Short Term Goals Short Term Goals 1. Mona will be able to actively weight bear through the L UE (palm of hand) while standing at TT, x 1 minute, x 2 separate trials, while completing functional task with R UE, requiring maximum verbal and visual cues, and physical assistance from therapist with initial positioning of UE into weight bearing position at TT. 2. Mona will be able to actively weight shift L <-> R through the L UE (palm of hand ), while standing at TT, x 1 minute, x 2 separate trials, while completing functional task with the R UE, requiring maximum verbal and visual cues , and physical assistance from therapist with initial positioning of UE into weight bearing position at TT. 3. Mona will be able to successfully transfer item from lap to left side of body with the L UE while seated, demonstrating active elbow extension and forearm supination, 8 out of 10 trials , requiring maximum physical assistance with initial grasp of object and maximum verbal and visual cues from therapist . Welt Wheeler Goals Welt Wheeler Goals 1. Mona will be modified independent with execution of home exercise program with support of family utilizing provided written and visual instructions. 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 Mona was accompanied by her Mother to initial evaluation; Mother reported that prior to surgery Mona had 'better oracle agile plm consultant' and coordination of the L UE. PMH: significant for moderate intellectual disability, selective mutism, left hemianopsia, left sided weakness. PLOF: Per Mother, Mona was independent w/ BADLS and was actively involved in program through the high school. Program was 3 days per week, Saturday, Saturday and , from 9:00 to 1:00. Job and life skills were being addressed in the program. Mother reported that Mona would return to the program the following week. Evaluation findings: Impaired sensation of the L UE; protective behaviors of L UE ( 'hiding hand/UE in sleeve of long sleeved shirt'); selective mutism; decreased initiation and ability to follow multi-step directions; decreased volitional motor coordination of L UE; tendency into flexion pattern w/ hand; L elbow flexion/extension WFL w/ environmental modifications to support; L forearm pronation WFL; PROM of L UE observed to be overhead w/ use of pulleys; decreased AROM of L wrist; minimal active L forearm supination; decreased active sh ROM; unable to complete formal ROM testing of L UE; R UE AROM WFL observed w/ functional movements; decreased functional independence. Outpatient OT is recommended to address these areas in order to maximize Mona's success in day-to-day life w/ active participation in meaningful activities. Home Exercise Program Please refer to treatment section of note for specific details. Reviewed with Patient Goals,Progress Being Made,Home Exercise Program Patient Understanding Fair Plan Comment 12 weeks Comment 1-2 times per week Therapeutic Contents Active Range of Motion, Adaptive Equipment Education, Client Education,Cognitive Skills Development,Functional Activities,Home Exercise Program,Joint Protection, Manual Therapy,Education, Neurodevelopment Treatment, Neuromuscular Re-Education, Self-Care,Stretching/ Flexibility Activities, Therapeutic Activities, Therapeutic Exercises, Modalities,Sensory Re- education Modalities As Needed,As Prescribed Types of Modalities E-Stim,Functional Stimulation (FES),T.E.N. Stimulation,TENS Placement/Application Additional Types of Modalities Heat/Cold Patient Instruction Home Exercise Program,Plan of Care,Questions/Concerns Sensory Assessment Sensory Profile2 Functional Wrist/Hand Scan Hand Side OT Outpatient Muscle Testing Start: 12/25/18 14:01 Freq: Status: Active Protocol: Document 07/02/19 15:47 AMS (Rec: 07/02/19 16:00 AMS [email or web address]) Tire Fabric Inspector/Hand Strength Tire Fabric Inspector/Hand Strength Left Tire Fabric Inspector Dynamometer II 30.0 Lateral Pinch Strengh (lbs) 10.3 Tip Pinch Strength (lbs) 6.0 Comments Tire Fabric Inspector = > 3 SD below mean; Lateral Pinch = > 2 SD below the mean Norms for 18-19 y.o. females Tire Fabric Inspector = 61.7 +/- 12.5 Lateral Pinch = 17.2 +/- 2.5 12/25/18 Averages: 18.7# L Tire Fabric Inspector 10.3# L Lat Pinch 6.0# L Tip Pinch Right Tire Fabric Inspector Dynamometer II 60.0 Lateral Pinch Strengh (lbs) 18.0 Tip Pinch Strength (lbs) 12.0 Comments Tire Fabric Inspector = within 1 SD below mean; Lateral Pinch = slightly below mean Norms for 18-19 y.o. females Tire Fabric Inspector = 71.6 +/- 12.3 Lateral Pinch = 18.1 +/- 2.4 Tip Pinch OT Outpatient Treatment Note - Adult Start: 11/04/18 17:11 Freq: Status: Active Protocol: Document 07/02/19 15:47 AMS (Rec: 07/02/19 16:00 AMS [email or web address]) OT Outpatient Adult Treatment Note Session Time Visit Start Time 14:30 Visit Stop Time 15:20 Total Visit Minutes 50 Visit Information Plan of Care Dates 07/02/19-09/24/19 Insurance Information [employer]-Child Setting Treatment Setting Outpatient Care Visit Type Note Type Re-Evaluation General Information General Information Mona is a 17 year-old right hand dominant female referred to outpatient OT 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 Mona was accompanied by her Mother to initial evaluation; Mother reported that prior to surgery Mona had 'better oracle agile plm consultant' and coordination of the L UE. PMH: significant for moderate intellectual disability, selective mutism, left hemianopsia, left sided weakness. - Subjective Identification Type Name Identification Reconciled With Medical Record Observations Yes per Mona in response to whether or not she had been working on positioning her fingers out of arm sleeve. Chief Complaint(s) Restricts Patient/Caregiver Compliance with Home Good Exercise Program Comments w/ family support - Objective Objective Measurements Mona was seen 1:1 for OT treatment session. 05/08/19= Dependent w/ brushing hair; dislikes hair being brushed. Dislikes having teeth brushed more. 04/24/19= Mother reports Mona is able to undress without assistance. 03/12/19= Untied shoe laces x 2 trials w / 1 hand seated w/ use of stool. 02/06/19= Folded paper within 1/8-inch of edges of 8 1/2-inch x 11-inch paper. 02/02= unable to tie shoe laces (including inability to tie w/ 1 hand). 01/07/19= Able to manage diff size buttons; able to remove and put utensils back into [employer] utensil [place]. 01/05/19= Able to flip over various sized coins x 10 trials w/ L hand WFL. Able to open therapist's treatment room door x 2 trials w/ left hand w/ supervision and increased time; able to open horizontal drawer w/ left hand x 1 trial w/ supervision and increased time. Please refer to below for progress towards meeting established OT goals. Short Term Goals 1. Mona will demonstrate improved functional motor abilities of the left hand, based on self-report of ability to open small food packets with active incorporation of the left hand on a daily basis with modified independence. = 25% met 2. Mona will be able to tie shoe laces 4 out of 5 trials, utilizing 2-different colored shoe laces set-up, requiring minimal verbal/visual cues from therapist. 04/10/19= 50% met GOALS MET Bounced tennis ball across TT, 8/10 trials, w/ L hand seated , w/ CGA to mod phys A w/ initial grasp. *MET 12/22/18 Transferred item lap -> L of body w/ L UE seated, w/ elbow ext, forearm sup, 9/10 trials, w/ min v.c. *MET 12/29/18 Flipped 10/10 cards w/ L hand utilizing edge of TT, w/ min v .c. *MET 01/01/19 Managing personal water bottle with L hand within home on daily basis w/ mod I. *MET WB through the L UE (palm of hand) w/ cueing from therapist while in standing. *MET WB shift L <-> R through the L UE standing at TT, x 1 minute w/ max v.c. *MET 05/26/19 Welt Wheeler Goals 1. Mona will be modified independent with execution of home exercise program with support of family utilizing provided written and visual instructions. 2. Mona will average 37.0 pounds of force or more with left oracle agile plm consultant dynamometer strength testing. 06/25/19= 50% met 3. Mona will be able to tie personal shoe laces, utilizing compensatory strategies, requiring supervision. 4. Mona will be able to demonstrate improved functional independence; this will be evidenced by ability to brush/comb hair with modified independence utilizing visual feedback. GOALS MET Will avg 25.0 pounds of force with L oracle agile plm consultant dynamometer strength testing. *MET = avg 30.0# L oracle agile plm consultant - Treatment 6 Descriptor Attention to L side 4 Descriptor UE motor coordination. Bimanual UE coordination. 2- handed 7-inch bounced ball catch seated at chest height. 2-handed 7-inch ball catch w/ underhand arc and 2-handed overhead throw seated. 2 Descriptor Eye-hand coordination L UE. 4. 4# weighted ball 2x10 angled trampoline w/ focus on digit/ wrist ext w/ throw) Complexity Upgraded 1 Descriptor Fine motor. Obj manip. Focus on wrist/digit extension w/ obj manip w/ environmental modifications. Resistant clothespins above eye level. Get-a-oracle agile plm consultant vertical surface w/ removal. Small pegs w/ pegboard manipulation. Exercises 3 Descriptor Elbow ext. Side Left Body Position Sitting Sets 1 Repetitions 10 Resistance TB #4 2 Descriptor Sh strengthening. Sh ext. Sh flex. Sh abd. Seated Row. Side Left Body Position Sitting Sets 1 Repetitions 10 Resistance TB #4 1 Descriptor HEP/POC. Reviewed treatment session w/ Mother w/ Mona's presence. Discussed progression of compromise w/ positioning of hand/arm; requested that Mona position arm to side w/ fingers partially exposed d/t Mona's resistance to currently having all fingers/entire hand out of sleeve. Discussed importance of functional incorporation of hand in day- to-day life. Mother verbalized understanding. Complexity Upgraded - Assessment Patient Response to Treatment Good Rehab Potential Good Assessment of Improvement Mona has made progress over the last certification period in the areas of tolerance for weight bearing through the upper extremity, as well as left oracle agile plm consultant strength as observed w/ standardized oracle agile plm consultant strength testing. Mona is also demonstrating improving grading of force w/ the left hand, as well as improving motor planning/object manipulation at heights above eye level. Despite observed progress, Mona continues to present w/ decreased attention to the left side and decreased spontaneous incorporation of the left hand in day-to-day life. Recommend that therapist continues to address attention to left side body of space, bimanual coordination activities, motor abilities of L UE, and functional independence. Activities rec: get-a-oracle agile plm consultant; resistant clothespins above eye-level; small pegs w/ pegboard; bimanual activities Home Exercise Program Please refer to treatment section of note for specific details. Reviewed with Patient/Caregiver Progress Being Made Patient/Caregiver Understanding Good - Plan Therapy Recommendations Continue with Current Program, Advance per Rehabilitation Protocol Additional Therapy Recommendations Consult w/ PT Comment 12 weeks Frequency of Treatment Once a Week Therapeutic Contents Active Range of Motion, Adaptive Equipment Education, Client Education,Cognitive Skills Development,Functional Activities,Home Exercise Program,Joint Protection, Manual Therapy,Education, Neurodevelopment Treatment, Neuromuscular Re-Education, Self-Care,Stretching/ Flexibility Activities, Therapeutic Activities, Therapeutic Exercises,Sensory Re-education Occupational Therapy Assessment OT Outpatient Muscle Testing Start: 12/25/18 14:01 Freq: Status: Active Protocol: Document 07/02/19 15:47 AMS (Rec: 07/02/19 16:00 AMS [email or web address]) Tire Fabric Inspector/Hand Strength Tire Fabric Inspector/Hand Strength Left Tire Fabric Inspector Dynamometer II 30.0 Lateral Pinch Strengh (lbs) 10.3 Tip Pinch Strength (lbs) 6.0 Comments Tire Fabric Inspector = > 3 SD below mean; Lateral Pinch = > 2 SD below the mean Norms for 18-19 y.o. females Tire Fabric Inspector = 61.7 +/- 12.5 Lateral Pinch = 17.2 +/- 2.5 12/25/18 Averages: 18.7# L Tire Fabric Inspector 10.3# L Lat Pinch 6.0# L Tip Pinch Right Tire Fabric Inspector Dynamometer II 60.0 Lateral Pinch Strengh (lbs) 18.0 Tip Pinch Strength (lbs) 12.0 Comments Tire Fabric Inspector = within 1 SD below mean; Lateral Pinch = slightly below mean Norms for 18-19 y.o. females Tire Fabric Inspector = 71.6 +/- 12.3 Lateral Pinch = 18.1 +/- 2.4 Tip Pinch
--- NOTE | 2019-08-27 15:30 | OT.OP.TRT ---
Visit Care Team Role Provider Type Marylou Peace Referring Provider Non-Staff Specialty: Physical Medicine and Rehab Address: [address] [place] [address], [place], [address] Email: Kirstin Parmar DO Attending Provider Physician Family Provider Primary Care Provider Specialty: Family Practice Address: [address] [place] [address], [address], [address] Email: [email or web address] Occupational Therapy Treatment Note OT Outpatient Treatment Note - Adult Start: 11/04/18 17:11 Freq: Status: Active Protocol: Document 08/27/19 15:30 AMS (Rec: 09/01/19 09:12 AMS [id number]) OT Outpatient Adult Treatment Note Session Time Visit Start Time 14:40 Visit Stop Time 15:25 Total Visit Minutes 45 Visit Information Plan of Care Dates 07/02/19-09/24/19 Insurance Information [employer]-Child Setting Treatment Setting Outpatient Care Visit Type Note Type Treatment Note General Information General Information Mona is a 17 year-old right hand dominant female referred to outpatient OT 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 Mona was accompanied by her Mother to initial evaluation; Mother reported that prior to surgery Mona had 'better tool grinding machine operator' and coordination of the L UE. PMH: significant for moderate intellectual disability, selective mutism, left hemianopsia, left sided weakness. - Subjective Identification Type Name Identification Reconciled With Medical Record Observations Mona was accompanied by a family friend to treatment session. Mona arrived late w / family friend to treatment session via taxi. Mona indicated that she felt she needed to work on picking up small things. Chief Complaint(s) Restricts Patient/Caregiver Compliance with Home Good Exercise Program Comments w/ family support - Objective Objective Measurements 05/08/19= Dependent w/ brushing hair; dislikes hair being brushed. Dislikes having teeth brushed more. 04/24/19= Mother reports Mona is able to undress without assistance. 03/12/19= Untied shoe laces x 2 trials w/ 1 hand seated w/ use of stool. 02/06/19= Folded paper within 1/8-inch of edges of 8 1/2-inch x 11-inch paper . 02/02/19= unable to tie shoe laces (including inability to tie w/ 1 hand). 01/07/19= Able to manage diff size buttons; able to remove and put utensils back into casino runner utensil pascal. 01/05/19= Able to flip over various sized coins x 10 trials w/ L hand WFL. Able to open therapist's treatment room door x 2 trials w/ left hand w/ supervision and increased time; able to open horizontal drawer w/ left hand x 1 trial w/ supervision and increased time. Please refer to below for progress towards meeting established OT goals. Short Term Goals 1. Mona will demonstrate improved functional motor abilities of the left hand, based on self-report of ability to open small food packets with active incorporation of the left hand on a daily basis with modified independence. = 25% met 2. Mona will be able to tie shoe laces 4 out of 5 trials, utilizing 2-different colored shoe laces set-up, requiring minimal verbal/visual cues from therapist. 04/10/19= 50% met GOALS MET Bounced tennis ball across TT, 8/10 trials, w/ L hand seated , w/ CGA to mod phys A w/ initial grasp. *MET 12/22/18 Transferred item lap -> L of body w/ L UE seated, w/ elbow ext, forearm sup, 9/10 trials, w/ min v.c. *MET 12/29/18 Flipped 10/10 cards w/ L hand utilizing edge of TT, w/ min v .c. *MET 01/01/19 Managing personal water bottle with L hand within home on daily basis w/ mod I. *MET WB through the L UE (palm of hand) w/ cueing from therapist while in standing. *MET WB shift L <-> R through the L UE standing at TT, x 1 minute w/ max v.c. *MET 05/26/19 Alf Goals 1. Mona will be modified independent with execution of home exercise program with support of family utilizing provided written and visual instructions. 2. Mona will average 37.0 pounds of force or more with left tool grinding machine operator dynamometer strength testing. 06/25/19= 50% met 3. Mona will be able to tie personal shoe laces, utilizing compensatory strategies, requiring supervision. 4. Mona will be able to demonstrate improved functional independence; this will be evidenced by ability to brush/comb hair with modified independence utilizing visual feedback. GOALS MET Will avg 25.0 pounds of force with L tool grinding machine operator dynamometer strength testing. *MET = avg 30.0# L tool grinding machine operator - Treatment 6 Descriptor Attention to L side 4 Descriptor UE motor coordination. Bimanual UE coordination. 2 Descriptor Eye-hand coordination L UE. 4. 4# weighted ball 2x10 angled trampoline w/ focus on digit/ wrist ext w/ throw) Complexity Upgraded 1 Descriptor Fine motor. Obj manipulation. Increased focus on in-hand manipulation/thumb motor planning (translation). Resistant clothespins above eye level. Get-a-tool grinding machine operator vertical surface w/ removal. Small pegs w/ pegboard manipulation without use of compensatory strategies (use of side of board to assist w/ pick-up). Exercises 3 Descriptor Elbow ext. Side Left Body Position Sitting Sets 1 Repetitions 10 Resistance TB #4 2 Descriptor Sh strengthening. Sh ext. Sh flex. Sh abd. Seated Row. Side Left Body Position Sitting Sets 1 Repetitions 10 Resistance TB #4 1 Descriptor HEP/POC. Reviewed treatment session w/ Grandparents w/ Mona's presence. Recommended working on motor planning of the thumb with or without object; picture taken on Mona's personal cellphone to promote carry-over (5th digit proximal; rotation of small ball in palm of hand). Practiced in treatment session and Mona denied questions. Conveyed that no more visits are currently scheduled for outpatient OT; based on feedback from grandparents will have front load trash truck driver call and follow-up w/ Mother to schedule additional appointments. Complexity Upgraded - Assessment Patient Response to Treatment Good Rehab Potential Good Assessment of Improvement Improving fine motor obj manipulation; increased focus on in-hand manipulation/thumb motor planning on this treatment date. Mona continues to present w/ decreased attention to the left side and decreased spontaneous incorporation of the left hand in day-to-day life. Recommend that therapist continues to address attention to left side body of space, bimanual coordination activities, motor abilities of L UE, and functional independence. Activities rec: get-a-tool grinding machine operator; resistant clothespins above eye-level; small pegs w/ pegboard; bimanual activities; in-hand manipulation Home Exercise Program Please refer to treatment section of note for specific details. Reviewed with Patient/Caregiver Progress Being Made Patient/Caregiver Understanding Good - Plan Therapy Recommendations Continue with Current Program, Advance per Rehabilitation Protocol Additional Therapy Recommendations Consult w/ other therapies
--- NOTE | 2019-09-10 15:30 | OT.OP.TRT ---
Visit Care Team Role Provider Type Marylou Peace Referring Provider Non-Staff Specialty: Physical Medicine and Rehab Address: [address] [place] [address], [place], [address] Email: Kirstin Parmar DO Attending Provider Physician Family Provider Primary Care Provider Specialty: Family Practice Address: [address] [place] [address], [address], [address] Email: [email or web address] Occupational Therapy Treatment Note OT Outpatient Treatment Note - Adult Start: 11/04/18 17:11 Freq: Status: Active Protocol: Document 09/10/19 15:30 AMS (Rec: 09/11/19 08:56 AMS [id number]) OT Outpatient Adult Treatment Note Session Time Visit Start Time 14:40 Visit Stop Time 15:25 Total Visit Minutes 45 Visit Information Plan of Care Dates 07/02/19-09/24/19 Insurance Information [employer]-Child Setting Treatment Setting Outpatient Care Visit Type Note Type Treatment Note General Information General Information Mona is a 18 year old female who is status post right hemisphere resection secondary to frequent and severe seizure disorder. She is enrolled in a transitions program in [place]. Her mother brought her to the session. Mona has had seizures since she was a baby. Currently, she is living with her parents and brother. - Subjective Identification Type Name Identification Reconciled With Medical Record Observations Mona was seen 1:1. Yes per Mona in response to question of whether or not she is getting herself dressed. Mona indicated that she would like to continue to work on small things. Chief Complaint(s) Restricts Patient/Caregiver Compliance with Home Good Exercise Program Comments w/ family support - Objective Objective Measurements Re-assessed hand strength. See muscle testing section of note for specific details. Please refer to below for progress towards meeting established OT goals. 05/08/19= Dependent w/ brushing hair; dislikes hair being brushed. Dislikes having teeth brushed more. 04/24/19= Mother reports Mona is able to undress without assistance. 03/12/19= Untied shoe laces x 2 trials w/ 1 hand seated w/ use of stool. 02/06/19= Folded paper within 1/8-inch of edges of 8 1/2-inch x 11-inch paper . 02/02/19= unable to tie shoe laces (including inability to tie w/ 1 hand). 01/07/19= Able to manage diff size buttons; able to remove and put utensils back into grades 7 and 8 visiting teacher utensil [place]. 01/05/19= Able to flip over various sized coins x 10 trials w/ L hand WFL. Able to open therapist's treatment room door x 2 trials w/ left hand w/ supervision and increased time; able to open horizontal drawer w/ left hand x 1 trial w/ supervision and increased time. Short Term Goals 1. Mona will demonstrate improved functional motor abilities of the left hand, based on self-report of ability to open small food packets with active incorporation of the left hand on a daily basis with modified independence. = 25% met 2. Mona will be able to tie shoe laces 4 out of 5 trials, utilizing 2-different colored shoe laces set-up, requiring minimal verbal/visual cues from therapist. 09/10/19= 50% met; HAS NOT BEEN A FOCUS 3. Mona will present with improving motor planning abilities of the left hand which will support functional bimanual and unimanual coordination of the left hand; this will be evidenced by Mona's ability to execute opposition of thumb to each digit pad of the left hand with increased time and effort , as observed in 2 out of 3 trials, requiring minimal verbal cues from therapist. 09/10/19= NEW GOAL GOALS MET Bounced tennis ball across TT, 8/10 trials, w/ L hand seated , w/ CGA to mod phys A w/ initial grasp. *MET 12/22/18 Transferred item lap -> L of body w/ L UE seated, w/ elbow ext, forearm sup, 9/10 trials, w/ min v.c. *MET 12/29/18 Flipped 10/10 cards w/ L hand utilizing edge of TT, w/ min v .c. *MET 01/01/19 Managing personal water bottle with L hand within home on daily basis w/ mod I. *MET WB through the L UE (palm of hand) w/ cueing from therapist while in standing. *MET WB shift L <-> R through the L UE standing at TT, x 1 minute w/ max v.c. *MET 05/26/19 Group Home Goals 1. Mona will be modified independent with execution of home exercise program with support of family utilizing provided written and visual instructions. 09/10/19= HEP upgraded 2. Mona will be able to tie personal shoe laces, utilizing compensatory strategies, requiring supervision. 3. Mona will be able to demonstrate improved functional independence; this will be evidenced by ability to brush/comb hair with modified independence utilizing visual feedback. GOALS MET Will avg 25.0 pounds of force with L video surveillance technician dynamometer strength testing. *MET = avg 30.0# of force Will avg 37.0 pounds of force or more w/ L video surveillance technician dynamometer strength testing. *MET 09/10/19= avg 43.3# of force - Treatment 6 Descriptor Attention to L side 4 Descriptor UE motor coordination. Bimanual coordination. Unimanual coordination . 1 Descriptor Unimanual motor coordination. Fine motor coordination. Thumb motor planning to support object manipulation (thumb opposition; thumb slide). Exercises 1 Descriptor HEP/POC. Reviewed treatment session w/ Mother in Mona's presence. Discussed progress that has been observed relative to L hand strength. Recommended practicing motor planning of the thumb (thumb flip activity and thumb opposition to each digit pad). Reviewed activities in treatment session. Both Mother and daughter denied questions . Complexity Upgraded - Assessment Patient Response to Treatment Good Rehab Potential Good Assessment of Improvement Improving L hand and thumb strength; has improved from 18 .7# of force (12/25/18) to 43.3 # of force with L video surveillance technician strength; 10.3# of force (12/25) to 15.5# of force with L lateral pinch strength; and from 6.0# of force to 10.7# of force with L tip pinch strength. Performance for video surveillance technician = >1 SD below the mean; lateral pinch = within 1 SD below the mean; and tip pinch = within 1 SD below mean when compared to females the same age! Based on self-report, Mona has increased functional independence w/ dressing. Recommend inquiring about any areas that still need support. Upgraded motor planning tasks for hand/thumb on this treatment date. Mona continues to present w/ decreased attention to the left side and decreased spontaneous incorporation of the left hand in day-to-day life. Recommend that therapist continues to address attention to left side body of space, bimanual coordination activities, motor abilities of L UE, and functional independence. Activities rec: get-a-video surveillance technician; unimanual activities; in-hand obj manipulation Home Exercise Program Please refer to treatment section of note for specific details. Reviewed with Patient/Caregiver Progress Being Made Patient/Caregiver Understanding Good - Plan Therapy Recommendations Continue with Current Program, Advance per Rehabilitation Protocol Additional Therapy Recommendations Consult w/ other therapies
--- NOTE | 2019-09-18 15:30 | OT.OP.REEVAL ---
Visit Care Team Role Provider Type Marylou Peace Referring Provider Non-Staff Address: [address] [place] [address], [place], [address] Email: Kirstin Parmar DO Attending Provider Physician Family Provider Primary Care Provider Address: [address] [place] [address], [facility] [address], [place], [address] Email: [email or web address] Outpatient OT Outpatient Adult Evaluation Start: 11/04/18 17:11 Freq: Status: Active Protocol: Document 11/04/18 17:12 AMS (Rec: 11/04/18 17:28 AMS [email or web address]) General Information Session Time Visit Start Time 12:30 Visit Stop Time 13:15 Total Visit Minutes 45 Visit Information Plan of Care Dates 11/04/18-01/27/19 Insurance Information [employer]-Child Visit Type Note Type Initial Evaluation Identification Identification Confirmed Yes Identification Confirmed By Mother Medical Information Medical History Per chart review: Mona is a 17 year-old right hand dominant girl with h/o intractable seizures and 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 Seizures resumed s/p procedure. 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 PMH: significant for moderate intellectual disability, selective mutism, left hemianopsia, left sided weakness. ADLs Overall Ability Comments Impaired; mod I w/ UB/LB dressing per Mother Goals Objective Measurements Objective Measurements Impaired sensation of the L UE ; protective behaviors of L UE ('hiding hand/UE in sleeve of long sleeved shirt'); decreased initiation and ability to follow multi-step directions; decreased volitional motor coordination of L UE; tendency into flexion pattern w/ hand; L elbow flexion/extension WFL w/ environmental modifications to support; L forearm pronation WFL; PROM of L UE observed to be overhead w/ use of pulleys; decreased AROM of L wrist; minimal active L forearm supination; decreased active sh ROM; unable to complete formal ROM testing of L UE; R UE AROM WFL observed w/ functional movements; decreased functional independence. Treatment Treatment Education re: protective behaviors and use of clothing. Mother and daughter denied questions. Short Term Goals Short Term Goals 1. Mona will be able to actively weight bear through the L UE (palm of hand) while standing at TT, x 1 minute, x 2 separate trials, while completing functional task with R UE, requiring maximum verbal and visual cues, and physical assistance from therapist with initial positioning of UE into weight bearing position at TT. 2. Mona will be able to actively weight shift L <-> R through the L UE (palm of hand ), while standing at TT, x 1 minute, x 2 separate trials, while completing functional task with the R UE, requiring maximum verbal and visual cues , and physical assistance from therapist with initial positioning of UE into weight bearing position at TT. 3. Mona will be able to successfully transfer item from lap to left side of body with the L UE while seated, demonstrating active elbow extension and forearm supination, 8 out of 10 trials , requiring maximum physical assistance with initial grasp of object and maximum verbal and visual cues from therapist . Rehabilitation Therapy Aide Goals Rehabilitation Therapy Aide Goals 1. Mona will be modified independent with execution of home exercise program with support of family utilizing provided written and visual instructions. 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 PMH: significant for moderate intellectual disability, selective mutism, left hemianopsia, left sided weakness. PLOF: Per Mother, Mona was independent w/ BADLS and was actively involved in program through the high school. Program was 3 days per week, Saturday, Saturday and , from 9:00 to 1:00. Job and life skills were being addressed in the program. Mother reported that Mona would return to the program the following week. Evaluation findings: Impaired sensation of the L UE; protective behaviors of L UE ( 'hiding hand/UE in sleeve of long sleeved shirt'); selective mutism; decreased initiation and ability to follow multi-step directions; decreased volitional motor coordination of L UE; tendency into flexion pattern w/ hand; L elbow flexion/extension WFL w/ environmental modifications to support; L forearm pronation WFL; PROM of L UE observed to be overhead w/ use of pulleys; decreased AROM of L wrist; minimal active L forearm supination; decreased active sh ROM; unable to complete formal ROM testing of L UE; R UE AROM WFL observed w/ functional movements; decreased functional independence. Outpatient OT is recommended to address these areas in order to maximize Mona's success in day-to-day life w/ active participation in meaningful activities. Home Exercise Program Please refer to treatment section of note for specific details. Reviewed with Patient Goals,Progress Being Made,Home Exercise Program Patient Understanding Fair Plan Comment 12 weeks Comment 1-2 times per week Therapeutic Contents Active Range of Motion, Adaptive Equipment Education, Client Education,Cognitive Skills Development,Functional Activities,Home Exercise Program,Joint Protection, Manual Therapy,Education, Neurodevelopment Treatment, Neuromuscular Re-Education, Self-Care,Stretching/ Flexibility Activities, Therapeutic Activities, Therapeutic Exercises, Modalities,Sensory Re- education Modalities As Needed,As Prescribed Types of Modalities E-Stim,Functional Stimulation (FES),T.E.N. Stimulation,TENS Placement/Application Additional Types of Modalities Heat/Cold Patient Instruction Home Exercise Program,Plan of Care,Questions/Concerns Sensory Assessment Sensory Profile2 Functional Wrist/Hand Scan Hand Side OT Outpatient Muscle Testing Start: 12/25/18 14:01 Freq: Status: Active Protocol: Document 09/18/19 11:38 AMS (Rec: 09/18/19 15:42 AMS [email or web address]) Shop Clerk/Hand Strength Shop Clerk/Hand Strength Left Shop Clerk Dynamometer II 43.3 Lateral Pinch Strengh (lbs) 15.5 Tip Pinch Strength (lbs) 10.7 Comments Interpretation: Shop Clerk = >1 SD below the mean; Lateral Pinch = within 1 SD below mean; Tip Pinch = within 1 SD below mean Norms for 18-19 y.o. females Shop Clerk = 61.7 +/- 12.5 Lateral Pinch = 17.2 +/- 2.5 Tip Pinch = 13.4 +/- 2.9 12/25/18 Averages: 18.7# L Shop Clerk 10.3# L Lat Pinch 6.0# L Tip Pinch Right Shop Clerk Dynamometer II 60.0 Lateral Pinch Strengh (lbs) 18.0 Tip Pinch Strength (lbs) 12.0 Comments Shop Clerk = within 1 SD below mean; Lateral Pinch = slightly below mean Norms for 18-19 y.o. females Shop Clerk = 71.6 +/- 12.3 Lateral Pinch = 18.1 +/- 2.4 Tip Pinch OT Outpatient Treatment Note - Adult Start: 11/04/18 17:11 Freq: Status: Active Protocol: Document 09/18/19 11:38 AMS (Rec: 09/18/19 15:42 AMS [email or web address]) OT Outpatient Adult Treatment Note Session Time Visit Start Time 14:40 Visit Stop Time 15:25 Total Visit Minutes 45 Visit Information Plan of Care Dates 09/18/19-12/11/19 Insurance Information [employer]-Child Setting Treatment Setting Outpatient Care Visit Type Note Type Re-Evaluation General Information General Information Mona is a 17 year-old right hand dominant female referred to outpatient OT 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 PMH: significant for moderate intellectual disability, selective mutism, left hemianopsia, left sided weakness. - Subjective Identification Type Name Identification Reconciled With Medical Record Observations Mona was seen 1:1. Mona indicated that she would like to continue to work on picking up small things with the left hand. Chief Complaint(s) Restricts Patient/Caregiver Compliance with Home Good Exercise Program Comments w/ family support - Objective Objective Measurements Please refer to below for progress towards meeting established OT goals. 05/08/19= Dependent w/ brushing hair; dislikes hair being brushed. Dislikes having teeth brushed more. 04/24/19= Mother reports Mona is able to undress without assistance. 03/12/19= Untied shoe laces x 2 trials w/ 1 hand seated w/ use of stool. 02/06/19= Folded paper within 1/8-inch of edges of 8 1/2-inch x 11-inch paper . 02/02/19= unable to tie shoe laces (including inability to tie w/ 1 hand). 01/07/19= Able to manage diff size buttons; able to remove and put utensils back into toolsmith utensil pascal. 01/05/19= Able to flip over various sized coins x 10 trials w/ L hand WFL. Able to open therapist's treatment room door x 2 trials w/ left hand w/ supervision and increased time; able to open horizontal drawer w/ left hand x 1 trial w/ supervision and increased time. Short Term Goals 1. Mona will be able to tie shoe laces 4 out of 5 trials, utilizing 2-different colored shoe laces set-up, requiring minimal verbal/visual cues from therapist. 09/10/19= 50% met; HAS NOT BEEN A FOCUS 2. Mona will present with improving motor planning abilities of the left hand which will support functional bimanual and unimanual coordination of the left hand; this will be evidenced by Mona's ability to execute opposition of thumb to each digit pad of the left hand with increased time and effort , as observed in 2 out of 3 trials, requiring minimal verbal cues from therapist. = 25% met GOALS MET Bounced tennis ball across TT, 8/10 trials, w/ L hand seated , w/ CGA to mod phys A w/ initial grasp. *MET 12/22/18 Transferred item lap -> L of body w/ L UE seated, w/ elbow ext, forearm sup, 9/10 trials, w/ min v.c. *MET 12/29/18 Flipped 10/10 cards w/ L hand utilizing edge of TT, w/ min v .c. *MET 01/01/19 Managing personal water bottle with L hand within home on daily basis w/ mod I. *MET WB through the L UE (palm of hand) w/ cueing from therapist while in standing. *MET WB shift L <-> R through the L UE standing at TT, x 1 minute w/ max v.c. *MET 05/26/19 Reported ability to open small food packets w/ active incorporation of L hand on daily basis w/ mod I. *MET Intermediate Goals 1. Mona will be modified independent with execution of home exercise program with support of family utilizing provided written and visual instructions. 09/18/19= 50% met 2. Mona will be able to tie personal shoe laces, utilizing compensatory strategies, requiring supervision. GOALS MET Will avg 25.0 pounds of force with L boring mill set up operator dynamometer strength testing. *MET = avg 30.0# of force Will avg 37.0 pounds of force or more w/ L boring mill set up operator dynamometer strength testing. *MET 09/10/19= avg 43.3# of force Reported ability brush/comb hair w/ mod independence utilizing R hand. *MET 09/18/19 - Treatment 6 Descriptor Attention to L side 1 Descriptor Unimanual motor coordination. Fine motor coordination. In- hand object manipulation/motor planning. Exercises 1 Descriptor HEP/POC. Reviewed current HEP w/ Mona. No additional changes to HEP were made on this treatment date. Complexity Upgraded - Assessment Patient Response to Treatment Good Rehab Potential Good Assessment of Improvement Mona has made progress over the last certification period in the areas of functional independence, boring mill set up operator/lateral pinch strength, and unilateral motor planning. This is evidenced by Mona meeting goals in these areas, her performance on standardized assessments, and based on self -report. With dynamometer and pinchometer strength testing, Mona improved from 18.7# of force (12/25/18) to 43.3# of force with L boring mill set up operator strength; 10 .3# of force (12/25/18) to 15.5 # of force with L lateral pinch strength; and from 6.0# of force to 10.7# of force with L tip pinch strength. Performance for boring mill set up operator was >1 SD below the mean; lateral pinch was within 1 SD below the mean; and tip pinch was within 1 SD below the mean when compared to females the same age. Mona reports that she is brushing her own hair utilizing her right hand and that she is able to open food packets with active incorporation of the left hand . Continued outpatient OT is recommended to maximize Mona 's functional independence and ability to successfully engage in various meaningful activities. It is recommended that outpatient OT addresses attention to left side body of space, bimanual coordination activities, motor abilities of L UE, fine motor planning, in -hand manipulation, kinesthetic awarness of hand/ upper extremity in space, and functional independence. Activities rec: unimanual activities; in-hand obj manipulation Home Exercise Program Please refer to treatment section of note for specific details. Reviewed with Patient/Caregiver Progress Being Made Patient/Caregiver Understanding Good - Plan Therapy Recommendations Continue with Current Program, Advance per Rehabilitation Protocol Additional Therapy Recommendations Consult w/ other therapies Comment 12 weeks Frequency of Treatment Once a Week Therapeutic Contents Active Range of Motion,Client Education,Cognitive Skills Development,Functional Activities,Home Exercise Program,Joint Protection, Manual Therapy,Education, Neurodevelopment Treatment, Neuromuscular Re-Education, Self-Care,Stretching/ Flexibility Activities, Therapeutic Activities, Therapeutic Exercises,Sensory Re-education Occupational Therapy Assessment OT Outpatient Standardized Assessments Start: 12/25/18 14:01 Freq: Status: Active Protocol: Document 09/18/19 11:38 AMS (Rec: 09/18/19 15:42 AMS [email or web address]) 9-Hole Peg Hand Test Hand Left Date of Test 04/10/19 Therapist UMA Acosta/Hardeep Interpretation Impaired Norm For Patients Age/Sex Females 18-19 years of age = 17.4 +/- 2.0 Comments 04/10/19= Scoring Time: 2 min 42 sec 01/13/19= Scoring Time: 4 min 55 sec Right Date of Test 01/13/19 Therapist UMA Acosta/Hardeep Interpretation Impaired Norm For Patients Age/Sex Females 18-19 years of age = 16.1 +/- 2.1 Comments Scoring Time = 29.0 seconds Occupational Therapy Assessment OT Outpatient Muscle Testing Start: 12/25/18 14:01 Freq: Status: Active Protocol: Document 09/18/19 11:38 AMS (Rec: 09/18/19 15:42 AMS [email or web address]) Shop Clerk/Hand Strength Shop Clerk/Hand Strength Left Shop Clerk Dynamometer II 43.3 Lateral Pinch Strengh (lbs) 15.5 Tip Pinch Strength (lbs) 10.7 Comments Interpretation: Shop Clerk = >1 SD below the mean; Lateral Pinch = within 1 SD below mean; Tip Pinch = within 1 SD below mean Norms for 18-19 y.o. females Shop Clerk = 61.7 +/- 12.5 Lateral Pinch = 17.2 +/- 2.5 Tip Pinch = 13.4 +/- 2.9 12/25/18 Averages: 18.7# L Shop Clerk 10.3# L Lat Pinch 6.0# L Tip Pinch Right Shop Clerk Dynamometer II 60.0 Lateral Pinch Strengh (lbs) 18.0 Tip Pinch Strength (lbs) 12.0 Comments Shop Clerk = within 1 SD below mean; Lateral Pinch = slightly below mean Norms for 18-19 y.o. females Shop Clerk = 71.6 +/- 12.3 Lateral Pinch = 18.1 +/- 2.4 Tip Pinch
--- NOTE | 2019-09-24 14:00 | OT.OP.TRT ---
Visit Care Team Role Provider Type Marylou Peace Referring Provider Non-Staff Specialty: Physical Medicine and Rehab Address: [address] [place] [address], [place], [address] Email: Kirstin Parmar DO Attending Provider Physician Family Provider Primary Care Provider Specialty: Family Practice Address: [address] [place] [address], [address], [address] Email: [email or web address] Occupational Therapy Treatment Note OT Outpatient Treatment Note - Adult Start: 11/04/18 17:11 Freq: Status: Active Protocol: Document 09/24/19 13:57 AMS (Rec: 09/24/19 14:00 AMS [email or web address]) OT Outpatient Adult Treatment Note Visit Information Plan of Care Dates 09/18/19-12/11/19 Insurance Information [employer]-Child Setting Treatment Setting Outpatient Care Visit Type Note Type Administrative Note General Information General Information Mona is a 17 year-old right hand dominant female referred to outpatient OT 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 Mona was accompanied by her Mother to initial evaluation; Mother reported that prior to surgery Mona had 'better service technician copier' and coordination of the L UE. PMH: significant for moderate intellectual disability, selective mutism, left hemianopsia, left sided weakness. - Subjective Observations Therapist attempted to contact Mona and family (Tatyana) via phone. Phone call was unanswered. Therapist left brief voicemail regarding placement of Mona on hold from outpatient OT services at this time d/t COVID 19 concerns (given Mona's medical history). Informed that appointments for the month of September will be cancelled at this time; will re-schedule these appointments in the future when deemed appropriate. [facility] desktop operator staff notified of communication. - - - -
--- NOTE | 2019-12-30 11:48 | OT.OP.DC ---
Visit Care Team Role Provider Type Marylou Peace Referring Provider Non-Staff Address: [address] [place] [address], [id number] Email: Kirstin Parmar DO Attending Provider Non-Staff Family Provider Primary Care Provider Address: [address] [place] [address], [facility] [address], [place], [address] Email: [email or web address] OT Outpatient OT Outpatient Adult Evaluation Start: 11/04/18 17:11 Freq: Status: Active Protocol: Document 11/04/18 17:12 AMS (Rec: 11/04/18 17:28 AMS [id number]) General Information Session Time Visit Start Time 12:30 Visit Stop Time 13:15 Total Visit Minutes 45 Visit Information Plan of Care Dates 11/04/18-01/27/19 Insurance Information [employer]-Child Visit Type Note Type Initial Evaluation Identification Identification Confirmed Yes Identification Confirmed By Mother Medical Information Medical History Per chart review: Mona is a 17 year-old right hand dominant girl with h/o intractable seizures and 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 Seizures resumed s/p procedure. 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 PMH: significant for moderate intellectual disability, selective mutism, left hemianopsia, left sided weakness. ADLs Overall Ability Comments Impaired; mod I w/ UB/LB dressing per Mother Goals Objective Measurements Objective Measurements Impaired sensation of the L UE ; protective behaviors of L UE ('hiding hand/UE in sleeve of long sleeved shirt'); decreased initiation and ability to follow multi-step directions; decreased volitional motor coordination of L UE; tendency into flexion pattern w/ hand; L elbow flexion/extension WFL w/ environmental modifications to support; L forearm pronation WFL; PROM of L UE observed to be overhead w/ use of pulleys; decreased AROM of L wrist; minimal active L forearm supination; decreased active sh ROM; unable to complete formal ROM testing of L UE; R UE AROM WFL observed w/ functional movements; decreased functional independence. Treatment Treatment Education re: protective behaviors and use of clothing. Mother and daughter denied questions. Short Term Goals Short Term Goals 1. Mona will be able to actively weight bear through the L UE (palm of hand) while standing at TT, x 1 minute, x 2 separate trials, while completing functional task with R UE, requiring maximum verbal and visual cues, and physical assistance from therapist with initial positioning of UE into weight bearing position at TT. 2. Mona will be able to actively weight shift L <-> R through the L UE (palm of hand ), while standing at TT, x 1 minute, x 2 separate trials, while completing functional task with the R UE, requiring maximum verbal and visual cues , and physical assistance from therapist with initial positioning of UE into weight bearing position at TT. 3. Mona will be able to successfully transfer item from lap to left side of body with the L UE while seated, demonstrating active elbow extension and forearm supination, 8 out of 10 trials , requiring maximum physical assistance with initial grasp of object and maximum verbal and visual cues from therapist . Housing Counselor Goals Housing Counselor Goals 1. Mona will be modified independent with execution of home exercise program with support of family utilizing provided written and visual instructions. 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 Mona was accompanied by her Mother to initial evaluation; Mother reported that prior to surgery Mona had 'better director telehealth' and coordination of the L UE. PMH: significant for moderate intellectual disability, selective mutism, left hemianopsia, left sided weakness. PLOF: Per Mother, Mona was independent w/ BADLS and was actively involved in program through the high school. Program was 3 days per week, Saturday, Saturday and , from 9:00 to 1:00. Job and life skills were being addressed in the program. Mother reported that Mona would return to the program the following week. Evaluation findings: Impaired sensation of the L UE; protective behaviors of L UE ( 'hiding hand/UE in sleeve of long sleeved shirt'); selective mutism; decreased initiation and ability to follow multi-step directions; decreased volitional motor coordination of L UE; tendency into flexion pattern w/ hand; L elbow flexion/extension WFL w/ environmental modifications to support; L forearm pronation WFL; PROM of L UE observed to be overhead w/ use of pulleys; decreased AROM of L wrist; minimal active L forearm supination; decreased active sh ROM; unable to complete formal ROM testing of L UE; R UE AROM WFL observed w/ functional movements; decreased functional independence. Outpatient OT is recommended to address these areas in order to maximize Mona's success in day-to-day life w/ active participation in meaningful activities. Home Exercise Program Please refer to treatment section of note for specific details. Reviewed with Patient Goals,Progress Being Made,Home Exercise Program Patient Understanding Fair Plan Comment 12 weeks Comment 1-2 times per week Therapeutic Contents Active Range of Motion, Adaptive Equipment Education, Client Education,Cognitive Skills Development,Functional Activities,Home Exercise Program,Joint Protection, Manual Therapy,Education, Neurodevelopment Treatment, Neuromuscular Re-Education, Self-Care,Stretching/ Flexibility Activities, Therapeutic Activities, Therapeutic Exercises, Modalities,Sensory Re- education Modalities As Needed,As Prescribed Types of Modalities E-Stim,Functional Stimulation (FES),T.E.N. Stimulation,TENS Placement/Application Additional Types of Modalities Heat/Cold Patient Instruction Home Exercise Program,Plan of Care,Questions/Concerns Sensory Assessment Sensory Profile2 Functional Wrist/Hand Scan Hand Side OT Outpatient Muscle Testing Start: 12/25/18 14:01 Freq: Status: Active Protocol: Document 09/18/19 11:38 AMS (Rec: 09/18/19 15:42 AMS [id number]) Tubing Mill Operator/Hand Strength Tubing Mill Operator/Hand Strength Left Tubing Mill Operator Dynamometer II 43.3 Lateral Pinch Strengh (lbs) 15.5 Tip Pinch Strength (lbs) 10.7 Comments Interpretation: Tubing Mill Operator = >1 SD below the mean; Lateral Pinch = within 1 SD below mean; Tip Pinch = within 1 SD below mean Norms for 18-19 y.o. females Tubing Mill Operator = 61.7 +/- 12.5 Lateral Pinch = 17.2 +/- 2.5 Tip Pinch = 13.4 +/- 2.9 12/25/18 Averages: 18.7# L Tubing Mill Operator 10.3# L Lat Pinch 6.0# L Tip Pinch Right Tubing Mill Operator Dynamometer II 60.0 Lateral Pinch Strengh (lbs) 18.0 Tip Pinch Strength (lbs) 12.0 Comments Tubing Mill Operator = within 1 SD below mean; Lateral Pinch = slightly below mean Norms for 18-19 y.o. females Tubing Mill Operator = 71.6 +/- 12.3 Lateral Pinch = 18.1 +/- 2.4 Tip Pinch OT Outpatient Treatment Note - Adult Start: 11/04/18 17:11 Freq: Status: Active Protocol: Document 12/30/19 10:41 AMS (Rec: 12/30/19 10:45 AMS [id number]) OT Outpatient Adult Treatment Note Session Time Visit Start Time 10:40 Visit Information Plan of Care Dates 09/18/19-12/11/19 Insurance Information [employer]Child Visit Type Note Type Discharge Summary - Subjective Observations Therapist previously attempted to contact Mona and her family via telephone for possible return to outpatient OT as documented on 09/24/19. In addition per outpatient clinic front office administrator staff, they have left several messages with family in re: scheduling additional appointments. - Objective Short Term Goals 1. Mona will be able to tie shoe laces 4 out of 5 trials, utilizing 2-different colored shoe laces set-up, requiring minimal verbal/visual cues from therapist. 09/10/19= 50% met; HAS NOT BEEN A FOCUS 2. Mona will present with improving motor planning abilities of the left hand which will support functional bimanual and unimanual coordination of the left hand; this will be evidenced by Mona's ability to execute opposition of thumb to each digit pad of the left hand with increased time and effort , as observed in 2 out of 3 trials, requiring minimal verbal cues from therapist. = 25% met GOALS MET Bounced tennis ball across TT, 8/10 trials, w/ L hand seated , w/ CGA to mod phys A w/ initial grasp. *MET 12/22/18 Transferred item lap -> L of body w/ L UE seated, w/ elbow ext, forearm sup, 9/10 trials, w/ min v.c. *MET 12/29/18 Flipped 10/10 cards w/ L hand utilizing edge of TT, w/ min v .c. *MET 01/01/19 Managing personal water bottle with L hand within home on daily basis w/ mod I. *MET WB through the L UE (palm of hand) w/ cueing from therapist while in standing. *MET WB shift L <-> R through the L UE standing at TT, x 1 minute w/ max v.c. *MET 05/26/19 Reported ability to open small food packets w/ active incorporation of L hand on daily basis w/ mod I. *MET Intermediate Goals 1. Mona will be modified independent with execution of home exercise program with support of family utilizing provided written and visual instructions. 09/18/19= 50% met 2. Mona will be able to tie personal shoe laces, utilizing compensatory strategies, requiring supervision. GOALS MET Will avg 25.0 pounds of force with L director telehealth dynamometer strength testing. *MET = avg 30.0# of force Will avg 37.0 pounds of force or more w/ L director telehealth dynamometer strength testing. *MET 09/10/19= avg 43.3# of force Reported ability brush/comb hair w/ mod independence utilizing R hand. *MET 09/18/19 - - Assessment Assessment of Improvement Therapist previously attempted to contact Mona and her family via telephone for possible return to outpatient OT as documented on 09/24/19. Per outpatient clinic front office administrator staff, several messages have also been left with the family in re: scheduling additional appointments. Given the length of gap in treatment and absence of returned phone calls, recommend d/c from outpatient OT at this time. Recommend resuming outpatient services in the future with receipt of new referral from PCP. - Plan Therapy Recommendations Discharge from Occupational Therapy
== END 2020-01-08 11:22 | disposition home or self-care (01) ==
LOC: OT 10:30
PROVIDERS: Family Provider Family Medicine; PCP Family Medicine; Referring Provider Physical Medicine & Rehabilitation Pediatric Rehabilitation Medicine; Visit Provider Family Medicine
DX: Z74.09 Other reduced mobility (principal); G40.919 Epilepsy, unspecified, intractable, without status epilepticus; G81.94 Hemiplegia, unspecified affecting left nondominant side; F94.0 Selective mutism; R27.8 Other lack of coordination
CPT/HCPCS: 97110; 97112; 97166; 97530; 97535

== ENCOUNTER → 2020-03-18 10:01 | Outpatient (CLI) | payer OTHER, MEDICAID, SELFPAY ==
[2020-03-18 11:28] LABS: Add Manual Diff / Slide Review NO; Basophils Absolute Auto 0 /uL (0-100); Basophils Percent Auto 0.7 % (0-2); Eosinophils Absolute Auto 100 /uL (0-450); Eosinophils Percent Auto 2.1 % (2-4); Hematocrit 37.8 % (36-46); Hemoglobin 12.8 g/dL (12.0-16.0); Lymphocytes Absolute Auto 2000 /uL (1100-4500); Lymphocytes Percent Auto 27.6 % (25-40); Mean Corpuscular HGB Conc 33.8 % (30-36); Mean Corpuscular Hemoglobin 28.5 PG (26-34); Mean Corpuscular Volume 84.2 fL (80-100); Monocytes Absolute Auto 500 /uL (0-900); Monocytes Percent Auto 6.8 % (3-14); Neutrophils Absolute Auto 4500 /uL (1500-7000); Neutrophils Percent Auto 62.8 % (50-75); Platelet Count 327 X10^3/uL (150-400); Red Blood Cell Count 4.49 X10^6/uL (4.0-5.2); Red Cell Distribution Width 13.9 % (11.6-14.8); White Blood Cell Count 7.1 X10^3/uL (4.5-11.0)
[2020-03-18 11:54] LABS: BUN Creatinine Ratio 10.5 (6-22); Blood Urea Nitrogen 6 mg/dL (7-17); Calcium 9.2 mg/dL (8.4-10.2); Carbon Dioxide 21 mmol/L (22-32); Chloride 108 mmol/L (98-107); Estimated Glomerular Filt Rate > 60.0 mL/min (>60); Glucose 97 mg/dL (70-100); HEMOLYSIS < 15 (0-50); Potassium 3.7 mmol/L (3.4-5.1); Sodium 140 mmol/L (137-145)
[2020-03-18 12:11] LABS: Free T4, Direct Thyroxine 0.82 ng/dL (0.78-2.19)
[2020-03-18 12:24] LABS: Thyroid Stimulating Hormone 1.26 uIU/mL (0.47-4.68)
== END ==
PROVIDERS: Family Provider Family Medicine; PCP Family Medicine; Referring Provider Family Medicine; Visit Provider Family Medicine
DX: E03.9 Hypothyroidism, unspecified (principal); F32.9 Major depressive disorder, single episode, unspecified; F41.9 Anxiety disorder, unspecified; R53.83 Other fatigue
CPT/HCPCS: 36415; 80048; 84439; 84443; 84481; 85025

== ENCOUNTER 2020-10-17 14:30 | Outpatient (RCR) | payer OTHER, MEDICAID, SELFPAY ==
--- NOTE | 2020-02-09 18:56 | PT.OIE ---
Current Diagnoses Epilepsy, unspecified, not intractable, without status epilepticus (02/09/20) Difficulty in walking, not elsewhere classified (02/09/20) Weakness (02/09/20) Contusion of right elbow, initial encounter (02/09/20) Visit Care Team Role Provider Type Greg Glaser DO Attending Provider Physician Family Provider Primary Care Provider Referring Provider Specialty: [facility] Practice Address: [address] [place] [address], [facility] Email: Physical Therapy Initial Evaluation PT-OP-A Visit Information Start: 02/08/20 17:38 Freq: Status: Active Protocol: Document 02/09/20 12:55 [facility] (Rec: 02/09/20 13:47 [facility] [id number]) Out-Patient Physical Therapy Visit Information Visit Information Visit Type Initial Evaluation Visit Start Time 13:00 Visit Stop Time 13:43 Total Visit Minutes 43 Visit Number 1 Number of HANDLE SEWER Visits 0 PT-OP-B Current Condition Start: 02/08/20 17:38 Freq: Status: Active Protocol: Document 02/09/20 12:55 [facility] (Rec: 02/09/20 13:47 [facility] [id number]) Current Condition History of Current Condition Current Complaints balance History of Current Condition Pt reports a fall a little while ago that she hurt her elbow but her elbow feels fine now. She has not had many falls recently but reports tripping occasionally with stumbles d/t tripping on things like rugs at home. She has not been walking much. Pt reports she has done small walks. She has not been doing her prior PT and OT exercises. Pt walks about 3 blocks to the [address]11 some times then back. Pt wants to be able to walk to the water sometime. Pt reports being indep except washing back and hair. She brushes her hair herself now and indep with dressing. Pt helps sometimes with some easier cooking and does some cleaning. 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 She had a R ant temporal lobe resection in 10/19. Pt could walk without AD prior to surgery and was indep with ADLs. Pt has had weakness on L side since she was an infant so she has worn DAFO since then. At this time the dynamic aspect is stabilized. Pt returned home from inpatient rehab 10/31. Mom helps pt bath with bath chair. Mom helps some w/L side dressing but she is able to do indep also. Pt has selective mutism. Prior Treatments and Tests PT & OT with good gains after surgery-stopped d/t COVID Treatment Goals Patient/Caregiver Goals Walk further ~1 miles, inc balance Personal Factors Other Personal Factors That May Effect BAER occasionally, has visual Therapy/Recovery field deficit to L , no seizures since surgery, selective mutism PT-OP-D Balance Start: 02/08/20 17:38 Freq: Status: Active Protocol: Document 02/09/20 12:55 [facility] (Rec: 02/09/20 13:47 [facility] [id number]) Balance Tests Ventura Balance Test Ventura Balance Test Score 45 PT-OP-E Functional Tests Start: 02/08/20 17:38 Freq: Status: Active Protocol: Document 02/09/20 12:55 [facility] (Rec: 02/09/20 13:47 [facility] [id number]) Functional Tests 6 Minute Walk Test Distance 924ft Device Used none Comments 1 stumble catching foot 30 Second Sit to Stand Test Score 5 Comments cox cushion chair Dynamic Gait Index (DGI) Score 13 Five Times Sit to Stand Test Score 30 sec Comments cox cushion chair Functional Gait Assessment Score 13 PT-OP-G Mobility & Gait Start: 02/08/20 17:38 Freq: Status: Active Protocol: Document 02/09/20 12:55 [facility] (Rec: 02/09/20 13:47 [facility] [id number]) OP Gait Assessment Comments Gait Comments Pt amb with lat lean for clearance of LLE. Pt has dec stance time on LLE. Amb in with cane but amb around gym without. Only uses cane occ in house mosty for out of house. Amb holding hands together in front of her when not using cane PT-OP-M Strength Start: 02/08/20 17:38 Freq: Status: Active Protocol: Document 02/09/20 12:55 [facility] (Rec: 02/09/20 13:47 [facility] [id number]) Hip Strength Hip Manual Muscle Testing Right Flexion (L2) 3+ Fair+ Extension (S1) 3+ Fair+ Abduction 3+ Fair+ External Rotation 3+ Fair+ Internal Rotation 3+ Fair+ Left Flexion (L2) 3 Fair Extension (S1) 3 Fair Abduction 3+ Fair+ External Rotation 3 Fair Internal Rotation 3 Fair Knee Strength Knee Manual Muscle Testing Right Flexion (S2) 4+ Good+ Extension (L3) 4 Good Left Flexion (S2) 3+ Fair+ Extension (L3) 3+ Fair+ Ankle/Foot Strength Ankle and Foot Manual Muscle Testing Left Dorsiflexion (L4) 2- Poor- Plantarflexion (S1) 0 Zero Right Dorsiflexion (L4) 5 Normal Plantarflexion (S1) 4 Good Comments PF tested seated PT-OP-T Assessment and Plan Start: 02/08/20 17:38 Freq: Status: Active Protocol: Document 02/09/20 12:55 [facility] (Rec: 02/09/20 13:47 [facility] [id number]) Physical Therapy Assessment Rehab Potential Rehabilitation Potential Good Evaluation Complexity Number of Personal Factors/Comorbidities 3 or More Number of Body Systems Impaired 4 or More Clinical Presentation at Evaluation Stable Impairments Impairments Activity Tolerance,Balance, Functional Activities, Functional Mobility,Gait, Posture,Strength,Tone, Transfers Goals 6 min walk Tube Blower Goal (LTG) Pt will be able to inc 6MWT to amb 1100ft w/o AD with no instances of foot catching to show improved ability to amb in community. LTG Duration 05/11/20 sit to stand Short Term Goal (STG) Pt will improve 5x sit to stand time to 24 sec to show improved strength and stability. STG Duration 03/27/20 Shelter Goal (LTG) Pt will improve 5x sit to stand time to 14 sec to show improved strength and stability. LTG Duration 05/11/20 FGA Tube Blower Goal (LTG) Pt will score >23/30 in order to show dec risk of falls. LTG Duration 05/11/20 Gait Deviation Shelter Goal (LTG) Pt will amb without cueing with UE at side with arm swing present LTG Duration 05/11/20 DGI Impairment DGI 13/24 Short Term Goal (STG) Pt iwll improve DGI to 16/24 to show improved balance. STG Duration 03/27/20 Tube Blower Goal (LTG) Pt will be able to score at least a 20/24 to demonstrate safe dynamic gait and low fall risk. 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 She has had a decline in balance and has had a fall since not attending PT d/t COVID. Pt has overall dec balance, dec BLE strength, impaired gait and dec functional ability. SHe would beneift from skilled PT to address these deficits. Physical Therapy Plan Frequency and Duration Frequency of Treatment 2x/Week Duration of Treatment 3 months Plan of Care Start Date 02/09/20 Plan of Care End Date 05/11/20 Therapeutic Interventions Therapeutic Interventions Aquatic Therapy,Balance Training,Gait Training,Home Exercise Program,Manual Therapy,Neuromuscular Re- education,Orthotic/Prosthetic Management,Patient/Caregiver Education,Self-Care/Home Management,Taping,Therapeutic Activities,Therapeutic Exercises Modalities Electric Stimulation Next Visit Focus/Plan Next Note Type Treatment Note Next Visit Plan Administer HEP, work on balance
--- NOTE | 2020-02-09 18:56 | PT.OPPOC ---
Physical, Occupational & Speech Therapy At [facility] Current Diagnoses Epilepsy, unspecified, not intractable, without status epilepticus (02/09/20) Difficulty in walking, not elsewhere classified (02/09/20) Weakness (02/09/20) Contusion of right elbow, initial encounter (02/09/20) Visit Care Team Role Provider Type Greg Glaser DO Attending Provider Physician Family Provider Primary Care Provider Referring Provider Specialty: Family [facility] Address: [address] [place] [address], [facility] Email: Plan Of Care PT-OP-T Assessment and Plan Start: 02/08/20 17:38 Freq: Status: Active Protocol: Document 02/09/20 12:55 [facility] (Rec: 02/09/20 13:47 [facility] [id number]) Physical Therapy Assessment Rehab Potential Rehabilitation Potential Good Evaluation Complexity Number of Personal Factors/Comorbidities 3 or More Number of Body Systems Impaired 4 or More Clinical Presentation at Evaluation Stable Impairments Impairments Activity Tolerance,Balance, Functional Activities, Functional Mobility,Gait, Posture,Strength,Tone, Transfers Goals 6 min walk Long-Term Goal (LTG) Pt will be able to inc 6MWT to amb 1100ft w/o AD with no instances of foot catching to show improved ability to amb in community. LTG Duration 05/11/20 sit to stand Short Term Goal (STG) Pt will improve 5x sit to stand time to 24 sec to show improved strength and stability. STG Duration 03/27/20 Records And Tape Recordings Engineer Goal (LTG) Pt will improve 5x sit to stand time to 14 sec to show improved strength and stability. LTG Duration 05/11/20 FGA Records And Tape Recordings Engineer Goal (LTG) Pt will score >23/30 in order to show dec risk of falls. LTG Duration 05/11/20 Gait Deviation Records And Tape Recordings Engineer Goal (LTG) Pt will amb without cueing with UE at side with arm swing present LTG Duration 05/11/20 DGI Impairment DGI 13/24 Short Term Goal (STG) Pt iwll improve DGI to 16/24 to show improved balance. STG Duration 03/27/20 Records And Tape Recordings Engineer Goal (LTG) Pt will be able to score at least a 20/24 to demonstrate safe dynamic gait and low fall risk. 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 She has had a decline in balance and has had a fall since not attending PT d/t COVID. Pt has overall dec balance, dec BLE strength, impaired gait and dec functional ability. SHe would beneift from skilled PT to address these deficits. Physical Therapy Plan Frequency and Duration Frequency of Treatment 2x/Week Duration of Treatment 3 months Plan of Care Start Date 02/09/20 Plan of Care End Date 05/11/20 Therapeutic Interventions Therapeutic Interventions Aquatic Therapy,Balance Training,Gait Training,Home Exercise Program,Manual Therapy,Neuromuscular Re- education,Orthotic/Prosthetic Management,Patient/Caregiver Education,Self-Care/Home Management,Taping,Therapeutic Activities,Therapeutic Exercises Modalities Electric Stimulation Next Visit Focus/Plan Next Note Type Treatment Note Next Visit Plan Administer HEP, work on balance Plan of Care Dates Plan of Care Start Date 02/09/20 Plan of Care End Date 05/11/20 Electronically Signed by: Lilibeth Schroeder, PT 02/09/20 [id number] Please Sign and Return: I have reviewed this Plan of Care and certify that the skilled therapy services above are required to meet the patient?s needs. Physician Signature Date Printed Name and Credentials Clinical Instructor Signature Printed Name and Credentials
--- NOTE | 2020-02-15 16:48 | PT.OTN ---
Current Diagnoses Epilepsy, unspecified, not intractable, without status epilepticus (02/15/20) Difficulty in walking, not elsewhere classified (02/15/20) Weakness (02/15/20) Contusion of right elbow, initial encounter (02/15/20) Physical Therapy Treatment Note PT-OP-A Visit Information Start: 02/08/20 17:38 Freq: Status: Active Protocol: Document 02/15/20 16:04 [facility] (Rec: 02/15/20 16:48 [facility] [id number]) Out-Patient Physical Therapy Visit Information Visit Information Visit Type Treatment Note Visit Start Time 16:02 Visit Stop Time 16:44 Total Visit Minutes 42 Visit Number 2 Number of CERTIFIED SHORTHAND REPORTER Visits 0 PT-OP-B Current Condition Start: 02/08/20 17:38 Freq: Status: Active Protocol: Document 02/09/20 12:55 [facility] (Rec: 02/09/20 13:47 [facility] [id number]) Current Condition History of Current Condition Current Complaints balance History of Current Condition Pt reports a fall a little while ago that she hurt her elbow but her elbow feels fine now. She has not had many falls recently but reports tripping occasionally with stumbles d/t tripping on things like rugs at home. She has not been walking much. Pt reports she has done small walks. She has not been doing her prior PT and OT exercises. Pt walks about 3 blocks to the 711 some times then back. Pt wants to be able to walk to the water sometime. Pt reports being indep except washing back and hair. She brushes her hair herself now and indep with dressing. Pt helps sometimes with some easier cooking and does some cleaning. 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 She had a R ant temporal lobe resection in 10/19. Pt could walk without AD prior to surgery and was indep with ADLs. Pt has had weakness on L side since she was an so she has worn DAFO since then. At this time the dynamic aspect is stabilized. Pt returned home from inpatient rehab 10/31. Mom helps pt bath with bath chair. Mom helps some w/L side dressing but she is able to do indep also. Pt has selective mutism. Prior Treatments and Tests PT & OT with good gains after surgery-stopped d/t COVID Treatment Goals Patient/Caregiver Goals Walk further ~1 miles, inc balance Personal Factors Other Personal Factors That May Effect BAER occasionally, has visual Therapy/Recovery field deficit to L , no seizures since surgery, selective mutism PT-OP-C Subjective Start: 02/08/20 17:38 Freq: Status: Active Protocol: Document 02/15/20 16:04 [facility] (Rec: 02/15/20 16:48 [facility] [id number]) OP-PT Subjective Patient Comments Patient Comments Pt reports she did some walking at the grocery store this weekend. PT-OP-D Balance Start: 02/08/20 17:38 Freq: Status: Active Protocol: Document 02/09/20 12:55 [facility] (Rec: 02/09/20 13:47 [facility] [id number]) Balance Tests Ventura Balance Test Ventura Balance Test Score 45 PT-OP-E Functional Tests Start: 02/08/20 17:38 Freq: Status: Active Protocol: Document 02/09/20 12:55 [facility] (Rec: 02/09/20 13:47 [facility] [id number]) Functional Tests 6 Minute Walk Test Distance 924ft Device Used none Comments 1 stumble catching foot 30 Second Sit to Stand Test Score 5 Comments cox cushion chair Dynamic Gait Index (DGI) Score 13 Five Times Sit to Stand Test Score 30 sec Comments cox cushion chair Functional Gait Assessment Score 13 PT-OP-G Mobility & Gait Start: 02/08/20 17:38 Freq: Status: Active Protocol: Document 02/09/20 12:55 [facility] (Rec: 02/09/20 13:47 [facility] [id number]) OP Gait Assessment Comments Gait Comments Pt amb with lat lean for clearance of LLE. Pt has dec stance time on LLE. Amb in with cane but amb around gym without. Only uses cane occ in house mosty for out of house. Amb holding hands together in front of her when not using cane PT-OP-M Strength Start: 02/08/20 17:38 Freq: Status: Active Protocol: Document 02/09/20 12:55 [facility] (Rec: 02/09/20 13:47 [facility] [id number]) Hip Strength Hip Manual Muscle Testing Right Flexion (L2) 3+ Fair+ Extension (S1) 3+ Fair+ Abduction 3+ Fair+ External Rotation 3+ Fair+ Internal Rotation 3+ Fair+ Left Flexion (L2) 3 Fair Extension (S1) 3 Fair Abduction 3+ Fair+ External Rotation 3 Fair Internal Rotation 3 Fair Knee Strength Knee Manual Muscle Testing Right Flexion (S2) 4+ Good+ Extension (L3) 4 Good Left Flexion (S2) 3+ Fair+ Extension (L3) 3+ Fair+ Ankle/Foot Strength Ankle and Foot Manual Muscle Testing Left Dorsiflexion (L4) 2- Poor- Plantarflexion (S1) 0 Zero Right Dorsiflexion (L4) 5 Normal Plantarflexion (S1) 4 Good Comments PF tested seated PT-OP-Q Treatments Start: 02/08/20 17:38 Freq: Status: Active Protocol: Document 02/15/20 16:04 [facility] (Rec: 02/15/20 16:48 [facility] [id number]) Cardio Equipment Recumbent Stepper (Sci-Fit) Duration (Minutes) 6 Resistance 3 Seat Position 9 Gym Equipment Shuttle Balance red clips Comments fwd & side: WBOS & NBOS fwd: staggered stance B Therapeutic Exercises Supine Exercises SLR hip flexion Supine Exercise Name core cues Side bilateral Reps/Minutes 10 bridge Supine Exercise Name w/cueing for leg position Reps/Minutes 15 reps Comments 3 holds Sitting Exercises DF Sitting Exercise Name in avaialbe range Side bilateral Reps/Minutes 20 Standing Exercises sit to stand Reps/Minutes 10 Comments without UE-rolle chair Neuro Re-Education Treatment Balance Activities hurdles Comments step to x4 step through x2 blue foam Comments 1. foam WBOS & NBOS w/ hitting balloon 2. STAGGERED STANCE BLUE TPADS -EC balance board Comments fwd & side w/hitting balloon fwd & side wt shifts tandem Details stance B PT-OP-T Assessment and Plan Start: 02/08/20 17:38 Freq: Status: Active Protocol: Document 02/15/20 16:04 [facility] (Rec: 02/15/20 16:48 [facility] [id number]) Physical Therapy Assessment Goals 6 min walk Flower Grower Goal (LTG) Pt will be able to inc 6MWT to amb 1100ft w/o AD with no instances of foot catching to show improved ability to amb in community. LTG Duration 05/11/20 sit to stand Short Term Goal (STG) Pt will improve 5x sit to stand time to 24 sec to show improved strength and stability. STG Duration 03/27/20 Flower Grower Goal (LTG) Pt will improve 5x sit to stand time to 14 sec to show improved strength and stability. LTG Duration 05/11/20 FGA Care Home Goal (LTG) Pt will score >23/30 in order to show dec risk of falls. LTG Duration 05/11/20 Gait Deviation Care Home Goal (LTG) Pt will amb without cueing with UE at side with arm swing present LTG Duration 05/11/20 DGI Impairment DGI 13/24 Short Term Goal (STG) Pt iwll improve DGI to 16/24 to show improved balance. STG Duration 03/27/20 Care Home Goal (LTG) Pt will be able to score at least a 20/24 to demonstrate safe dynamic gait and low fall risk. LTG Duration 05/11/20 Assessment Summary Assessment Pt given HEP for home and instructed to do daily. She did well with challenge of balance exercises. Most challenge noted w/shuttle balance Physical Therapy Plan Frequency and Duration Frequency of Treatment 2x/Week Duration of Treatment 3 months Plan of Care Start Date 02/09/20 Plan of Care End Date 05/11/20 Next Visit Focus/Plan Next Note Type Treatment Note Next Visit Plan review HEP, work on balance
--- NOTE | 2020-02-17 16:01 | PT.OTN ---
Current Diagnoses Epilepsy, unspecified, not intractable, without status epilepticus (02/17/20) Difficulty in walking, not elsewhere classified (02/17/20) Weakness (02/17/20) Contusion of right elbow, initial encounter (02/17/20) Physical Therapy Treatment Note PT-OP-A Visit Information Start: 02/08/20 17:38 Freq: Status: Active Protocol: Document 02/17/20 15:22 [facility] (Rec: 02/17/20 16:01 [facility] [id number]) Out-Patient Physical Therapy Visit Information Visit Information Visit Type Treatment Note Visit Start Time 15:20 Visit Stop Time 15:59 Total Visit Minutes 39 Visit Number 3 Number of RAPID EXTRACTOR OPERATOR Visits 0 PT-OP-B Current Condition Start: 02/08/20 17:38 Freq: Status: Active Protocol: Document 02/09/20 12:55 [facility] (Rec: 02/09/20 13:47 [facility] [id number]) Current Condition History of Current Condition Current Complaints balance History of Current Condition Pt reports a fall a little while ago that she hurt her elbow but her elbow feels fine now. She has not had many falls recently but reports tripping occasionally with stumbles d/t tripping on things like rugs at home. She has not been walking much. Pt reports she has done small walks. She has not been doing her prior PT and OT exercises. Pt walks about 3 blocks to the 711 some times then back. Pt wants to be able to walk to the water sometime. Pt reports being indep except washing back and hair. She brushes her hair herself now and indep with dressing. Pt helps sometimes with some easier cooking and does some cleaning. 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 She had a R ant temporal lobe resection in 10/19. Pt could walk without AD prior to surgery and was indep with ADLs. Pt has had weakness on L side since she was an so she has worn DAFO since then. At this time the dynamic aspect is stabilized. Pt returned home from inpatient rehab 10/31. Mom helps pt bath with bath chair. Mom helps some w/L side dressing but she is able to do indep also. Pt has selective mutism. Prior Treatments and Tests PT & OT with good gains after surgery-stopped d/t COVID Treatment Goals Patient/Caregiver Goals Walk further ~1 miles, inc balance Personal Factors Other Personal Factors That May Effect BAER occasionally, has visual Therapy/Recovery field deficit to L , no seizures since surgery, selective mutism PT-OP-C Subjective Start: 02/08/20 17:38 Freq: Status: Active Protocol: Document 02/17/20 15:22 [facility] (Rec: 02/17/20 16:01 [facility] [id number]) OP-PT Subjective Patient Comments Patient Comments Pt reports doing her exercises every day. PT-OP-D Balance Start: 02/08/20 17:38 Freq: Status: Active Protocol: Document 02/09/20 12:55 [facility] (Rec: 02/09/20 13:47 [facility] [id number]) Balance Tests Ventura Balance Test Ventura Balance Test Score 45 PT-OP-E Functional Tests Start: 02/08/20 17:38 Freq: Status: Active Protocol: Document 02/09/20 12:55 [facility] (Rec: 02/09/20 13:47 [facility] [id number]) Functional Tests 6 Minute Walk Test Distance 924ft Device Used none Comments 1 stumble catching foot 30 Second Sit to Stand Test Score 5 Comments cox cushion chair Dynamic Gait Index (DGI) Score 13 Five Times Sit to Stand Test Score 30 sec Comments cox cushion chair Functional Gait Assessment Score 13 PT-OP-G Mobility & Gait Start: 02/08/20 17:38 Freq: Status: Active Protocol: Document 02/09/20 12:55 [facility] (Rec: 02/09/20 13:47 [facility] [id number]) OP Gait Assessment Comments Gait Comments Pt amb with lat lean for clearance of LLE. Pt has dec stance time on LLE. Amb in with cane but amb around gym without. Only uses cane occ in house mosty for out of house. Amb holding hands together in front of her when not using cane PT-OP-M Strength Start: 02/08/20 17:38 Freq: Status: Active Protocol: Document 02/09/20 12:55 [facility] (Rec: 02/09/20 13:47 [facility] [id number]) Hip Strength Hip Manual Muscle Testing Right Flexion (L2) 3+ Fair+ Extension (S1) 3+ Fair+ Abduction 3+ Fair+ External Rotation 3+ Fair+ Internal Rotation 3+ Fair+ Left Flexion (L2) 3 Fair Extension (S1) 3 Fair Abduction 3+ Fair+ External Rotation 3 Fair Internal Rotation 3 Fair Knee Strength Knee Manual Muscle Testing Right Flexion (S2) 4+ Good+ Extension (L3) 4 Good Left Flexion (S2) 3+ Fair+ Extension (L3) 3+ Fair+ Ankle/Foot Strength Ankle and Foot Manual Muscle Testing Left Dorsiflexion (L4) 2- Poor- Plantarflexion (S1) 0 Zero Right Dorsiflexion (L4) 5 Normal Plantarflexion (S1) 4 Good Comments PF tested seated PT-OP-Q Treatments Start: 02/08/20 17:38 Freq: Status: Active Protocol: Document 02/17/20 15:22 [facility] (Rec: 02/17/20 16:01 [facility] [id number]) Cardio Equipment Recumbent Elliptical (Biodex) Duration (Minutes) 6 Resistance 4 Seat Position 7 Gym Equipment Shuttle Balance red clips Reps/Duration w/hitting balloon Comments fwd & side: WBOS & NBOS & staggered stance B Therapeutic Exercises Supine Exercises SLR hip flexion Supine Exercise Name core cues Side bilateral Reps/Minutes 10 Comments cues to keep knee straight bridge Supine Exercise Name w/cueing for leg position Reps/Minutes 15 reps Comments 3 holds Sitting Exercises DF Sitting Exercise Name in avaialbe range Side bilateral Reps/Minutes 20 Standing Exercises side step Side bilateral Equipment Used yellow tband Reps/Minutes 2x20ft B Comments contact guard sit to stand Standing Exercise Name cocus on knees apart Reps/Minutes 10 Comments without UE-rolle chair Neuro Re-Education Treatment Balance Activities hurdles Comments step to x2 step through x4 Bosu Comments 1. step ups B x10 w/L hand rail 2. squats x10 w/ rail prn PT-OP-T Assessment and Plan Start: 02/08/20 17:38 Freq: Status: Active Protocol: Document 02/17/20 15:22 [facility] (Rec: 02/17/20 16:01 [facility] [id number]) Physical Therapy Assessment Goals 6 min walk Shelter Goal (LTG) Pt will be able to inc 6MWT to amb 1100ft w/o AD with no instances of foot catching to show improved ability to amb in community. LTG Duration 05/11/20 sit to stand Short Term Goal (STG) Pt will improve 5x sit to stand time to 24 sec to show improved strength and stability. STG Duration 03/27/20 Motion Picture Photographer Goal (LTG) Pt will improve 5x sit to stand time to 14 sec to show improved strength and stability. LTG Duration 05/11/20 FGA Motion Picture Photographer Goal (LTG) Pt will score >23/30 in order to show dec risk of falls. LTG Duration 05/11/20 Gait Deviation Shelter Goal (LTG) Pt will amb without cueing with UE at side with arm swing present LTG Duration 05/11/20 DGI Impairment DGI 13/24 Short Term Goal (STG) Pt iwll improve DGI to 16/24 to show improved balance. STG Duration 03/27/20 Motion Picture Photographer Goal (LTG) Pt will be able to score at least a 20/24 to demonstrate safe dynamic gait and low fall risk. LTG Duration 05/11/20 Assessment Summary Assessment Pt showed good improvement with balance exericses today with improved ability to do balance board today and was able to hit balloon. Pt cont to require ceuing with exercises for form Physical Therapy Plan Frequency and Duration Frequency of Treatment 2x/Week Duration of Treatment 3 months Plan of Care Start Date 02/09/20 Plan of Care End Date 05/11/20 Next Visit Focus/Plan Next Note Type Treatment Note Next Visit Plan work on progressing balance & gait
--- NOTE | 2020-02-24 15:16 | PT.OTN ---
Current Diagnoses Epilepsy, unspecified, not intractable, without status epilepticus (02/24/20) Difficulty in walking, not elsewhere classified (02/24/20) Weakness (02/24/20) Contusion of right elbow, initial encounter (02/24/20) Physical Therapy Treatment Note PT-OP-A Visit Information Start: 02/08/20 17:38 Freq: Status: Active Protocol: Document 02/24/20 14:36 [facility] (Rec: 02/24/20 15:15 [facility] [id number]) Out-Patient Physical Therapy Visit Information Visit Information Visit Type Treatment Note Visit Start Time 14:32 Visit Stop Time 15:12 Total Visit Minutes 40 Visit Number 4 Number of WAREHOUSE FREIGHT HANDLER Visits 0 PT-OP-B Current Condition Start: 02/08/20 17:38 Freq: Status: Active Protocol: Document 02/09/20 12:55 [facility] (Rec: 02/09/20 13:47 [facility] [id number]) Current Condition History of Current Condition Current Complaints balance History of Current Condition Pt reports a fall a little while ago that she hurt her elbow but her elbow feels fine now. She has not had many falls recently but reports tripping occasionally with stumbles d/t tripping on things like rugs at home. She has not been walking much. Pt reports she has done small walks. She has not been doing her prior PT and OT exercises. Pt walks about 3 [address] to the [place]11 some times then back. Pt wants to be able to walk to the water sometime. Pt reports being indep except washing back and hair. She brushes her hair herself now and indep with dressing. Pt helps sometimes with some easier cooking and does some cleaning. 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 She had a R ant temporal lobe resection in 10/19. Pt could walk without AD prior to surgery and was indep with ADLs. Pt has had weakness on L side since she was an so she has worn DAFO since then. At this time the dynamic aspect is stabilized. Pt returned home from inpatient rehab 10/31. Mom helps pt bath with bath chair. Mom helps some w/L side dressing but she is able to do indep also. Pt has selective mutism. Prior Treatments and Tests PT & OT with good gains after surgery-stopped d/t COVID Treatment Goals Patient/Caregiver Goals Walk further ~1 miles, inc balance Personal Factors Other Personal Factors That May Effect BAER occasionally, has visual Therapy/Recovery field deficit to L , no seizures since surgery, selective mutism PT-OP-C Subjective Start: 02/08/20 17:38 Freq: Status: Active Protocol: Document 02/24/20 14:36 [facility] (Rec: 02/24/20 15:15 [facility] [id number]) OP-PT Subjective Patient Comments Patient Comments Pt reports doing exercises every other day and doing some walks to seven 11 PT-OP-D Balance Start: 02/08/20 17:38 Freq: Status: Active Protocol: Document 02/09/20 12:55 [facility] (Rec: 02/09/20 13:47 [facility] [id number]) Balance Tests Ventura Balance Test Ventura Balance Test Score 45 PT-OP-E Functional Tests Start: 02/08/20 17:38 Freq: Status: Active Protocol: Document 02/09/20 12:55 [facility] (Rec: 02/09/20 13:47 [facility] [id number]) Functional Tests 6 Minute Walk Test Distance 924ft Device Used none Comments 1 stumble catching foot 30 Second Sit to Stand Test Score 5 Comments cox cushion chair Dynamic Gait Index (DGI) Score 13 Five Times Sit to Stand Test Score 30 sec Comments cox cushion chair Functional Gait Assessment Score 13 PT-OP-G Mobility & Gait Start: 02/08/20 17:38 Freq: Status: Active Protocol: Document 02/09/20 12:55 [facility] (Rec: 02/09/20 13:47 [facility] [id number]) OP Gait Assessment Comments Gait Comments Pt amb with lat lean for clearance of LLE. Pt has dec stance time on LLE. Amb in with cane but amb around gym without. Only uses cane occ in house mosty for out of house. Amb holding hands together in front of her when not using cane PT-OP-M Strength Start: 02/08/20 17:38 Freq: Status: Active Protocol: Document 02/09/20 12:55 [facility] (Rec: 02/09/20 13:47 [facility] [id number]) Hip Strength Hip Manual Muscle Testing Right Flexion (L2) 3+ Fair+ Extension (S1) 3+ Fair+ Abduction 3+ Fair+ External Rotation 3+ Fair+ Internal Rotation 3+ Fair+ Left Flexion (L2) 3 Fair Extension (S1) 3 Fair Abduction 3+ Fair+ External Rotation 3 Fair Internal Rotation 3 Fair Knee Strength Knee Manual Muscle Testing Right Flexion (S2) 4+ Good+ Extension (L3) 4 Good Left Flexion (S2) 3+ Fair+ Extension (L3) 3+ Fair+ Ankle/Foot Strength Ankle and Foot Manual Muscle Testing Left Dorsiflexion (L4) 2- Poor- Plantarflexion (S1) 0 Zero Right Dorsiflexion (L4) 5 Normal Plantarflexion (S1) 4 Good Comments PF tested seated PT-OP-Q Treatments Start: 02/08/20 17:38 Freq: Status: Active Protocol: Document 02/24/20 14:36 [facility] (Rec: 02/24/20 15:15 [facility] [id number]) Cardio Equipment Recumbent Elliptical (Biodex) Duration (Minutes) 6 Resistance 6 Seat Position 7 Gym Equipment Shuttle Recovery Bilateral Squats Details B squats Resistance 75#, 100# Shuttle Recovery Platform Unstable Reps/Time 2x15 cued to WB equally into B LE Shuttle Balance red clips Reps/Duration w/hitting balloon Comments fwd & side: WBOS & NBOS & staggered stance B Therapeutic Ball seated Exercise Details kicking ball Ball Size/Color 55cm Body Position seated Therapeutic Exercises Sitting Exercises DF Sitting Exercise Name in avaialbe range Side bilateral Reps/Minutes 20 Standing Exercises stretch Standing Exercise Name jt Side bilateral Reps/Minutes 1 min e Comments seated and standing DF stretch side step Side bilateral Equipment Used yellow tband Reps/Minutes 3x10ft b Comments contact guard Neuro Re-Education Treatment Balance Activities hurdles Comments step through x2 step through w/ R foot on blue tpads, blue foam & cox fooam btwn hurdles x6 PT-OP-T Assessment and Plan Start: 02/08/20 17:38 Freq: Status: Active Protocol: Document 02/24/20 14:36 [facility] (Rec: 02/24/20 15:15 [facility] [id number]) Physical Therapy Assessment Goals 6 min walk Halfway Goal (LTG) Pt will be able to inc 6MWT to amb 1100ft w/o AD with no instances of foot catching to show improved ability to amb in community. LTG Duration 05/11/20 sit to stand Short Term Goal (STG) Pt will improve 5x sit to stand time to 24 sec to show improved strength and stability. STG Duration 03/27/20 Halfway Goal (LTG) Pt will improve 5x sit to stand time to 14 sec to show improved strength and stability. LTG Duration 05/11/20 FGA Metal Trim Erector Goal (LTG) Pt will score >23/30 in order to show dec risk of falls. LTG Duration 05/11/20 Gait Deviation Metal Trim Erector Goal (LTG) Pt will amb without cueing with UE at side with arm swing present LTG Duration 05/11/20 DGI Impairment DGI 13/24 Short Term Goal (STG) Pt iwll improve DGI to 16/24 to show improved balance. STG Duration 03/27/20 Metal Trim Erector Goal (LTG) Pt will be able to score at least a 20/24 to demonstrate safe dynamic gait and low fall risk. LTG Duration 05/11/20 Assessment Summary Assessment Pt is doing better with balance exercsies today including selina aldana and casandra mcdonald she used rails less today. She has tightness in her L calf which likely restricts DF Physical Therapy Plan Frequency and Duration Frequency of Treatment 2x/Week Duration of Treatment 3 months Plan of Care Start Date 02/09/20 Plan of Care End Date 05/11/20 Next Visit Focus/Plan Next Note Type Treatment Note Next Visit Plan work on progressing balance & gait
--- NOTE | 2020-03-02 12:18 | PT.OTN ---
Current Diagnoses Epilepsy, unspecified, not intractable, without status epilepticus (03/02/20) Difficulty in walking, not elsewhere classified (03/02/20) Weakness (03/02/20) Contusion of right elbow, initial encounter (03/02/20) Physical Therapy Treatment Note PT-OP-A Visit Information Start: 02/08/20 17:38 Freq: Status: Active Protocol: Document 03/02/20 12:05 [facility] (Rec: 03/02/20 12:18 [facility] [id number]) Out-Patient Physical Therapy Visit Information Visit Information Visit Type Treatment Note Visit Start Time 11:30 Visit Stop Time 12:00 Total Visit Minutes 30 Visit Number 5 Number of CONE MACHINE OPERATOR Visits 0 PT-OP-B Current Condition Start: 02/08/20 17:38 Freq: Status: Active Protocol: Document 02/09/20 12:55 [facility] (Rec: 02/09/20 13:47 [facility] [id number]) Current Condition History of Current Condition Current Complaints balance History of Current Condition Pt reports a fall a little while ago that she hurt her elbow but her elbow feels fine now. She has not had many falls recently but reports tripping occasionally with stumbles d/t tripping on things like rugs at home. She has not been walking much. Pt reports she has done small walks. She has not been doing her prior PT and OT exercises. Pt walks about 3 [address] to the [address] some times then back. Pt wants to be able to walk to the water sometime. Pt reports being indep except washing back and hair. She brushes her hair herself now and indep with dressing. Pt helps sometimes with some easier cooking and does some cleaning. 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 She had a R ant temporal lobe resection in 10/19. Pt could walk without AD prior to surgery and was indep with ADLs. Pt has had weakness on L side since she was an so she has worn DAFO since then. At this time the dynamic aspect is stabilized. Pt returned home from inpatient rehab 10/31. Mom helps pt bath with bath chair. Mom helps some w/L side dressing but she is able to do indep also. Pt has selective mutism. Prior Treatments and Tests PT & OT with good gains after surgery-stopped d/t COVID Treatment Goals Patient/Caregiver Goals Walk further ~1 miles, inc balance Personal Factors Other Personal Factors That May Effect BAER occasionally, has visual Therapy/Recovery field deficit to L , no seizures since surgery, selective mutism PT-OP-C Subjective Start: 02/08/20 17:38 Freq: Status: Active Protocol: Document 03/02/20 12:05 [facility] (Rec: 03/02/20 12:18 [facility] [id number]) OP-PT Subjective Patient Comments Patient Comments Pt reports she hasn't done much walking PT-OP-D Balance Start: 02/08/20 17:38 Freq: Status: Active Protocol: Document 02/09/20 12:55 [facility] (Rec: 02/09/20 13:47 [facility] [id number]) Balance Tests Ventura Balance Test Ventura Balance Test Score 45 PT-OP-E Functional Tests Start: 02/08/20 17:38 Freq: Status: Active Protocol: Document 02/09/20 12:55 [facility] (Rec: 02/09/20 13:47 [facility] [id number]) Functional Tests 6 Minute Walk Test Distance 924ft Device Used none Comments 1 stumble catching foot 30 Second Sit to Stand Test Score 5 Comments cox cushion chair Dynamic Gait Index (DGI) Score 13 Five Times Sit to Stand Test Score 30 sec Comments cox cushion chair Functional Gait Assessment Score 13 PT-OP-G Mobility & Gait Start: 02/08/20 17:38 Freq: Status: Active Protocol: Document 02/09/20 12:55 [facility] (Rec: 02/09/20 13:47 [facility] [id number]) OP Gait Assessment Comments Gait Comments Pt amb with lat lean for clearance of LLE. Pt has dec stance time on LLE. Amb in with cane but amb around gym without. Only uses cane occ in house mosty for out of house. Amb holding hands together in front of her when not using cane PT-OP-M Strength Start: 02/08/20 17:38 Freq: Status: Active Protocol: Document 02/09/20 12:55 [facility] (Rec: 02/09/20 13:47 [facility] [id number]) Hip Strength Hip Manual Muscle Testing Right Flexion (L2) 3+ Fair+ Extension (S1) 3+ Fair+ Abduction 3+ Fair+ External Rotation 3+ Fair+ Internal Rotation 3+ Fair+ Left Flexion (L2) 3 Fair Extension (S1) 3 Fair Abduction 3+ Fair+ External Rotation 3 Fair Internal Rotation 3 Fair Knee Strength Knee Manual Muscle Testing Right Flexion (S2) 4+ Good+ Extension (L3) 4 Good Left Flexion (S2) 3+ Fair+ Extension (L3) 3+ Fair+ Ankle/Foot Strength Ankle and Foot Manual Muscle Testing Left Dorsiflexion (L4) 2- Poor- Plantarflexion (S1) 0 Zero Right Dorsiflexion (L4) 5 Normal Plantarflexion (S1) 4 Good Comments PF tested seated PT-OP-Q Treatments Start: 02/08/20 17:38 Freq: Status: Active Protocol: Document 03/02/20 12:05 [facility] (Rec: 03/02/20 12:18 [facility] [id number]) Gym Equipment Shuttle Balance red clips Reps/Duration w/hitting balloon Comments fwd & side: WBOS & NBOS & staggered stance B Therapeutic Ball seated Ball Size/Color 55cm Body Position seated Reps/Duration 15 ea B Comments 1. alt arm lifts 2. alt marches 3. reciprocal arm & september 4. knee ext Gait Training Gait Activity wt shifts Description fwd step w/alt arm swing B arm swing Description standing in place alt Gait Description working on arm swing for 200ft Neuro Re-Education Treatment Balance Activities head turns Details vertical and horizontal w/ walking Reps/Duration 50ft x4 EC Details fwd and backwards walking Reps/Duration 50ft ea PT-OP-T Assessment and Plan Start: 02/08/20 17:38 Freq: Status: Active Protocol: Document 03/02/20 12:05 [facility] (Rec: 03/02/20 12:18 [facility] [id number]) Physical Therapy Assessment Goals 6 min walk Retirement Goal (LTG) Pt will be able to inc 6MWT to amb 1100ft w/o AD with no instances of foot catching to show improved ability to amb in community. LTG Duration 05/11/20 sit to stand Short Term Goal (STG) Pt will improve 5x sit to stand time to 24 sec to show improved strength and stability. STG Duration 03/27/20 Retirement Goal (LTG) Pt will improve 5x sit to stand time to 14 sec to show improved strength and stability. LTG Duration 05/11/20 FGA Envelope Adjuster Goal (LTG) Pt will score >23/30 in order to show dec risk of falls. LTG Duration 05/11/20 Gait Deviation Envelope Adjuster Goal (LTG) Pt will amb without cueing with UE at side with arm swing present LTG Duration 05/11/20 DGI Impairment DGI 1324 Short Term Goal (STG) Pt iwll improve DGI to 1624 to show improved balance. STG Duration 03/27/20 Envelope Adjuster Goal (LTG) Pt will be able to score at least a 2024 to demonstrate safe dynamic gait and low fall risk. LTG Duration 05/11/20 Assessment Summary Assessment Intial difficulty wtih reciprocal arm motions with LE motions even with gait, but improved once integrated in walking in clinic. She requires cueing to keep arms relaxed and swinging. NBOS most challenging on balance board. Physical Therapy Plan Frequency and Duration Frequency of Treatment 2x/Week Duration of Treatment 3 months Plan of Care Start Date 02/09/20 Plan of Care End Date 05/11/20 Next Visit Focus/Plan Next Note Type Treatment Note Next Visit Plan work on progressing balance & gait
--- NOTE | 2020-03-07 09:00 | PT.OTN ---
Current Diagnoses Epilepsy, unspecified, not intractable, without status epilepticus (03/07/20) Difficulty in walking, not elsewhere classified (03/07/20) Weakness (03/07/20) Contusion of right elbow, initial encounter (03/07/20) Physical Therapy Treatment Note PT-OP-A Visit Information Start: 02/08/20 17:38 Freq: Status: Active Protocol: Document 03/07/20 08:20 [facility] (Rec: 03/07/20 08:32 [facility] [id number]) Out-Patient Physical Therapy Visit Information Visit Information Visit Type Treatment Note Visit Start Time 08:15 Visit Stop Time 09:00 Total Visit Minutes 45 Visit Number 6 PT-OP-B Current Condition Start: 02/08/20 17:38 Freq: Status: Active Protocol: Document 02/09/20 12:55 [facility] (Rec: 02/09/20 13:47 [facility] [id number]) Current Condition History of Current Condition Current Complaints balance History of Current Condition Pt reports a fall a little while ago that she hurt her elbow but her elbow feels fine now. She has not had many falls recently but reports tripping occasionally with stumbles d/t tripping on things like rugs at home. She has not been walking much. Pt reports she has done small walks. She has not been doing her prior PT and OT exercises. Pt walks about 3 [address] to the [address] some times then back. Pt wants to be able to walk to the water sometime. Pt reports being indep except washing back and hair. She brushes her hair herself now and indep with dressing. Pt helps sometimes with some easier cooking and does some cleaning. 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 She had a R ant temporal lobe resection in 10/19. Pt could walk without AD prior to surgery and was indep with ADLs. Pt has had weakness on L side since she was an so she has worn DAFO since then. At this time the dynamic aspect is stabilized. Pt returned home from inpatient rehab 10/31. Mom helps pt bath with bath chair. Mom helps some w/L side dressing but she is able to do indep also. Pt has selective mutism. Prior Treatments and Tests PT & OT with good gains after surgery-stopped d/t COVID Treatment Goals Patient/Caregiver Goals Walk further ~1 miles, inc balance Personal Factors Other Personal Factors That May Effect BAER occasionally, has visual Therapy/Recovery field deficit to L , no seizures since surgery, selective mutism PT-OP-C Subjective Start: 02/08/20 17:38 Freq: Status: Active Protocol: Document 03/07/20 08:20 [facility] (Rec: 03/07/20 08:32 [facility] [id number]) OP-PT Subjective Patient Comments Patient Comments No new c/o, been doing a little bit of walking. PT-OP-D Balance Start: 02/08/20 17:38 Freq: Status: Active Protocol: Document 02/09/20 12:55 [facility] (Rec: 02/09/20 13:47 [facility] [id number]) Balance Tests Ventura Balance Test Ventura Balance Test Score 45 PT-OP-E Functional Tests Start: 02/08/20 17:38 Freq: Status: Active Protocol: Document 02/09/20 12:55 [facility] (Rec: 02/09/20 13:47 [facility] [id number]) Functional Tests 6 Minute Walk Test Distance 924ft Device Used none Comments 1 stumble catching foot 30 Second Sit to Stand Test Score 5 Comments cox cushion chair Dynamic Gait Index (DGI) Score 13 Five Times Sit to Stand Test Score 30 sec Comments cox cushion chair Functional Gait Assessment Score 13 PT-OP-G Mobility & Gait Start: 02/08/20 17:38 Freq: Status: Active Protocol: Document 02/09/20 12:55 [facility] (Rec: 02/09/20 13:47 [facility] [id number]) OP Gait Assessment Comments Gait Comments Pt amb with lat lean for clearance of LLE. Pt has dec stance time on LLE. Amb in with cane but amb around gym without. Only uses cane occ in house mosty for out of house. Amb holding hands together in front of her when not using cane PT-OP-M Strength Start: 02/08/20 17:38 Freq: Status: Active Protocol: Document 02/09/20 12:55 [facility] (Rec: 02/09/20 13:47 [facility] [id number]) Hip Strength Hip Manual Muscle Testing Right Flexion (L2) 3+ Fair+ Extension (S1) 3+ Fair+ Abduction 3+ Fair+ External Rotation 3+ Fair+ Internal Rotation 3+ Fair+ Left Flexion (L2) 3 Fair Extension (S1) 3 Fair Abduction 3+ Fair+ External Rotation 3 Fair Internal Rotation 3 Fair Knee Strength Knee Manual Muscle Testing Right Flexion (S2) 4+ Good+ Extension (L3) 4 Good Left Flexion (S2) 3+ Fair+ Extension (L3) 3+ Fair+ Ankle/Foot Strength Ankle and Foot Manual Muscle Testing Left Dorsiflexion (L4) 2- Poor- Plantarflexion (S1) 0 Zero Right Dorsiflexion (L4) 5 Normal Plantarflexion (S1) 4 Good Comments PF tested seated PT-OP-Q Treatments Start: 02/08/20 17:38 Freq: Status: Active Protocol: Document 03/07/20 08:20 [facility] (Rec: 03/07/20 08:32 [facility] [id number]) Cardio Equipment Recumbent Stepper (Sci-Fit) Duration (Minutes) 8 Resistance 3 Seat Position 8 Other Cues for left LE alignment, 0. 8 miles Gym Equipment Shuttle Recovery Unilateral Squats Details unilateral squats Resistance 37# Shuttle Recovery Platform Stable Reps/Time 2x10 reps, cueing to avoid knee valgus Bilateral Squats Details B squats Resistance 75#, 100# Shuttle Recovery Platform Unstable Reps/Time 2x15 cued to WB equally into B LE Shuttle Balance red clips Reps/Duration w/hitting balloon Comments fwd & side: WBOS & NBOS & staggered stance B Therapeutic Ball seated Ball Size/Color 55cm Body Position seated Reps/Duration 15 ea B Comments 1. alt arm lifts 2. alt marches 3. reciprocal arm & september 4. knee ext 5. bounces 6. ant.post pelvic tilt, side 7. circles CW, CCW Gait Training Gait Activity wt shifts Description fwd step w/alt arm swing B arm swing Description standing in place alt Neuro Re-Education Treatment Balance Activities head turns Details vertical and horizontal w/ walking Reps/Duration 50ft x4 EC Details fwd and backwards walking Reps/Duration 50ft ea PT-OP-T Assessment and Plan Start: 02/08/20 17:38 Freq: Status: Active Protocol: Document 03/07/20 08:20 [facility] (Rec: 03/07/20 08:32 [facility] [id number]) Physical Therapy Assessment Goals 6 min walk Longterm Goal (LTG) Pt will be able to inc 6MWT to amb 1100ft w/o AD with no instances of foot catching to show improved ability to amb in community. LTG Duration 05/11/20 sit to stand Short Term Goal (STG) Pt will improve 5x sit to stand time to 24 sec to show improved strength and stability. STG Duration 03/27/20 Visual Training Aide Goal (LTG) Pt will improve 5x sit to stand time to 14 sec to show improved strength and stability. LTG Duration 05/11/20 FGA Visual Training Aide Goal (LTG) Pt will score >23/30 in order to show dec risk of falls. LTG Duration 05/11/20 Gait Deviation Longterm Goal (LTG) Pt will amb without cueing with UE at side with arm swing present LTG Duration 05/11/20 DGI Impairment DGI 13/24 Short Term Goal (STG) Pt iwll improve DGI to 16/24 to show improved balance. STG Duration 03/27/20 Visual Training Aide Goal (LTG) Pt will be able to score at least a 20/24 to demonstrate safe dynamic gait and low fall risk. LTG Duration 05/11/20 Assessment Summary Assessment Mona very cooperative with treatment, needs frequent cues for increased weight-bearing and stance time left, increased arm swing left. Physical Therapy Plan Frequency and Duration Frequency of Treatment 2x/Week Duration of Treatment 3 months Plan of Care Start Date 02/09/20 Plan of Care End Date 05/11/20 Next Visit Focus/Plan Next Note Type Treatment Note Next Visit Plan work on progressing balance & gait
--- NOTE | 2020-03-09 13:45 | PT.OTN ---
Current Diagnoses Epilepsy, unspecified, not intractable, without status epilepticus (03/09/20) Difficulty in walking, not elsewhere classified (03/09/20) Weakness (03/09/20) Contusion of right elbow, initial encounter (03/09/20) Physical Therapy Treatment Note PT-OP-A Visit Information Start: 02/08/20 17:38 Freq: Status: Active Protocol: Document 03/09/20 13:00 [facility] (Rec: 03/09/20 13:44 [facility] [id number]) Out-Patient Physical Therapy Visit Information Visit Information Visit Type Treatment Note Visit Start Time 13:00 Visit Stop Time 13:40 Total Visit Minutes 40 Visit Number 7 Number of TITLE CURATIVE SPECIALIST Visits 0 PT-OP-B Current Condition Start: 02/08/20 17:38 Freq: Status: Active Protocol: Document 02/09/20 12:55 [facility] (Rec: 02/09/20 13:47 [facility] [id number]) Current Condition History of Current Condition Current Complaints balance History of Current Condition Pt reports a fall a little while ago that she hurt her elbow but her elbow feels fine now. She has not had many falls recently but reports tripping occasionally with stumbles d/t tripping on things like rugs at home. She has not been walking much. Pt reports she has done small walks. She has not been doing her prior PT and OT exercises. Pt walks about 3 [address] to the [address]11 some times then back. Pt wants to be able to walk to the water sometime. Pt reports being indep except washing back and hair. She brushes her hair herself now and indep with dressing. Pt helps sometimes with some easier cooking and does some cleaning. 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 She had a R ant temporal lobe resection in 10/19. Pt could walk without AD prior to surgery and was indep with ADLs. Pt has had weakness on L side since she was an so she has worn DAFO since then. At this time the dynamic aspect is stabilized. Pt returned home from inpatient rehab 10/31. Mom helps pt bath with bath chair. Mom helps some w/L side dressing but she is able to do indep also. Pt has selective mutism. Prior Treatments and Tests PT & OT with good gains after surgery-stopped d/t COVID Treatment Goals Patient/Caregiver Goals Walk further ~1 miles, inc balance Personal Factors Other Personal Factors That May Effect BAER occasionally, has visual Therapy/Recovery field deficit to L , no seizures since surgery, selective mutism PT-OP-C Subjective Start: 02/08/20 17:38 Freq: Status: Active Protocol: Document 03/09/20 13:00 [facility] (Rec: 03/09/20 13:44 [facility] [id number]) OP-PT Subjective Patient Comments Patient Comments Mom and pt report doing a little bit of walking PT-OP-D Balance Start: 02/08/20 17:38 Freq: Status: Active Protocol: Document 02/09/20 12:55 [facility] (Rec: 02/09/20 13:47 [facility] [id number]) Balance Tests Ventura Balance Test Ventura Balance Test Score 45 PT-OP-E Functional Tests Start: 02/08/20 17:38 Freq: Status: Active Protocol: Document 02/09/20 12:55 [facility] (Rec: 02/09/20 13:47 [facility] [id number]) Functional Tests 6 Minute Walk Test Distance 924ft Device Used none Comments 1 stumble catching foot 30 Second Sit to Stand Test Score 5 Comments cox cushion chair Dynamic Gait Index (DGI) Score 13 Five Times Sit to Stand Test Score 30 sec Comments cox cushion chair Functional Gait Assessment Score 13 PT-OP-G Mobility & Gait Start: 02/08/20 17:38 Freq: Status: Active Protocol: Document 02/09/20 12:55 [facility] (Rec: 02/09/20 13:47 [facility] [id number]) OP Gait Assessment Comments Gait Comments Pt amb with lat lean for clearance of LLE. Pt has dec stance time on LLE. Amb in with cane but amb around gym without. Only uses cane occ in house mosty for out of house. Amb holding hands together in front of her when not using cane PT-OP-M Strength Start: 02/08/20 17:38 Freq: Status: Active Protocol: Document 02/09/20 12:55 [facility] (Rec: 02/09/20 13:47 [facility] [id number]) Hip Strength Hip Manual Muscle Testing Right Flexion (L2) 3+ Fair+ Extension (S1) 3+ Fair+ Abduction 3+ Fair+ External Rotation 3+ Fair+ Internal Rotation 3+ Fair+ Left Flexion (L2) 3 Fair Extension (S1) 3 Fair Abduction 3+ Fair+ External Rotation 3 Fair Internal Rotation 3 Fair Knee Strength Knee Manual Muscle Testing Right Flexion (S2) 4+ Good+ Extension (L3) 4 Good Left Flexion (S2) 3+ Fair+ Extension (L3) 3+ Fair+ Ankle/Foot Strength Ankle and Foot Manual Muscle Testing Left Dorsiflexion (L4) 2- Poor- Plantarflexion (S1) 0 Zero Right Dorsiflexion (L4) 5 Normal Plantarflexion (S1) 4 Good Comments PF tested seated PT-OP-Q Treatments Start: 02/08/20 17:38 Freq: Status: Active Protocol: Document 03/09/20 13:00 [facility] (Rec: 03/09/20 13:44 [facility] [id number]) Cardio Equipment Recumbent Elliptical (Biodex) Duration (Minutes) 6 Resistance 7 Seat Position 4 Gym Equipment Shuttle Recovery Unilateral Squats Details unilateral squats Resistance 50# Shuttle Recovery Platform Stable Reps/Time 2x10 reps, cueing to avoid knee valgus Bilateral Squats Details B squats Resistance 100# Shuttle Recovery Platform Unstable Reps/Time 2x15 cued to WB equally into B LE Shuttle Balance red clips Reps/Duration w/hitting balloon Comments fwd & side: WBOS & NBOS & staggered stance B Therapeutic Ball seated Ball Size/Color 55cm Body Position seated Reps/Duration 12 ea B Comments 1. alt arm lifts 2. alt marches 3. reciprocal arm & march 4. knee ext 5. bounces 6. ant.post pelvic tilt, side 7. circles CW, CCW Therapeutic Exercises Standing Exercises stretch Standing Exercise Name jt Side bilateral Reps/Minutes 1min Gait Training Gait Activity wt shifts Description fwd step w/alt arm swing B arm swing Description standing in place alt Gait Description working on arm swing for 200ft Neuro Re-Education Treatment Balance Activities head turns Details vertical and horizontal w/ walking Reps/Duration 50ft x4 EC Details fwd and backwards walking Reps/Duration 50ft ea Self-Care/Home Management Treatment Education Caregiver Education edu to pt and mom about inc walks PT-OP-T Assessment and Plan Start: 02/08/20 17:38 Freq: Status: Active Protocol: Document 03/09/20 13:00 [facility] (Rec: 03/09/20 13:44 [facility] [id number]) Physical Therapy Assessment Goals 6 min walk Container Finisher Goal (LTG) Pt will be able to inc 6MWT to amb 1100ft w/o AD with no instances of foot catching to show improved ability to amb in community. LTG Duration 05/11/20 sit to stand Short Term Goal (STG) Pt will improve 5x sit to stand time to 24 sec to show improved strength and stability. STG Duration 03/27/20 Fdc Goal (LTG) Pt will improve 5x sit to stand time to 14 sec to show improved strength and stability. LTG Duration 05/11/20 FGA Fdc Goal (LTG) Pt will score >23/30 in order to show dec risk of falls. LTG Duration 05/11/20 Gait Deviation Fdc Goal (LTG) Pt will amb without cueing with UE at side with arm swing present LTG Duration 05/11/20 DGI Impairment DGI 13/24 Short Term Goal (STG) Pt iwll improve DGI to 16/24 to show improved balance. STG Duration 03/27/20 Container Finisher Goal (LTG) Pt will be able to score at least a 20/24 to demonstrate safe dynamic gait and low fall risk. LTG Duration 05/11/20 Assessment Summary Assessment Pt did better with gait today with improved arm swing but does still require cueing and encouraged to rest arms at her side. Pt imprvoing with balance activities. backwards walking most difficult. Physical Therapy Plan Frequency and Duration Frequency of Treatment 2x/Week Duration of Treatment 3 months Plan of Care Start Date 02/09/20 Plan of Care End Date 05/11/20 Therapeutic Interventions Therapeutic Interventions Aquatic Therapy,Balance Training,Gait Training,Home Exercise Program,Manual Therapy,Neuromuscular Re- education,Orthotic/Prosthetic Management,Patient/Caregiver Education,Self-Care/Home Management,Taping,Therapeutic Activities,Therapeutic Exercises Modalities Electric Stimulation Next Visit Focus/Plan Next Note Type Treatment Note Next Visit Plan work on progressing balance & gait
--- NOTE | 2020-03-16 08:59 | PT.OTN ---
Current Diagnoses Epilepsy, unspecified, not intractable, without status epilepticus (03/16/20) Difficulty in walking, not elsewhere classified (03/16/20) Weakness (03/16/20) Contusion of right elbow, initial encounter (03/16/20) Physical Therapy Treatment Note PT-OP-A Visit Information Start: 02/08/20 17:38 Freq: Status: Active Protocol: Document 03/16/20 08:20 [facility] (Rec: 03/16/20 08:58 [facility] [id number]) Out-Patient Physical Therapy Visit Information Visit Information Visit Type Treatment Note Visit Start Time 08:17 Visit Stop Time 08:58 Total Visit Minutes 41 Visit Number 8 Number of QUALITY INTERNSHIP Visits 0 PT-OP-B Current Condition Start: 02/08/20 17:38 Freq: Status: Active Protocol: Document 02/09/20 12:55 [facility] (Rec: 02/09/20 13:47 [facility] [id number]) Current Condition History of Current Condition Current Complaints balance History of Current Condition Pt reports a fall a little while ago that she hurt her elbow but her elbow feels fine now. She has not had many falls recently but reports tripping occasionally with stumbles d/t tripping on things like rugs at home. She has not been walking much. Pt reports she has done small walks. She has not been doing her prior PT and OT exercises. Pt walks about 3 blocks to the 711 some times then back. Pt wants to be able to walk to the water sometime. Pt reports being indep except washing back and hair. She brushes her hair herself now and indep with dressing. Pt helps sometimes with some easier cooking and does some cleaning. 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 She had a R ant temporal lobe resection in 10/19. Pt could walk without AD prior to surgery and was indep with ADLs. Pt has had weakness on L side since she was an so she has worn DAFO since then. At this time the dynamic aspect is stabilized. Pt returned home from inpatient rehab 10/31. Mom helps pt bath with bath chair. Mom helps some w/L side dressing but she is able to do indep also. Pt has selective mutism. Prior Treatments and Tests PT & OT with good gains after surgery-stopped d/t COVID Treatment Goals Patient/Caregiver Goals Walk further ~1 miles, inc balance Personal Factors Other Personal Factors That May Effect BAER occasionally, has visual Therapy/Recovery field deficit to L , no seizures since surgery, selective mutism PT-OP-C Subjective Start: 02/08/20 17:38 Freq: Status: Active Protocol: Document 03/16/20 08:20 [facility] (Rec: 03/16/20 08:58 [facility] [id number]) OP-PT Subjective Patient Comments Patient Comments Pt reports they walked to [facility] PT-OP-D Balance Start: 02/08/20 17:38 Freq: Status: Active Protocol: Document 02/09/20 12:55 [facility] (Rec: 02/09/20 13:47 [facility] [id number]) Balance Tests Ventura Balance Test Ventura Balance Test Score 45 PT-OP-E Functional Tests Start: 02/08/20 17:38 Freq: Status: Active Protocol: Document 02/09/20 12:55 [facility] (Rec: 02/09/20 13:47 [facility] [id number]) Functional Tests 6 Minute Walk Test Distance 924ft Device Used none Comments 1 stumble catching foot 30 Second Sit to Stand Test Score 5 Comments cox cushion chair Dynamic Gait Index (DGI) Score 13 Five Times Sit to Stand Test Score 30 sec Comments cox cushion chair Functional Gait Assessment Score 13 PT-OP-G Mobility & Gait Start: 02/08/20 17:38 Freq: Status: Active Protocol: Document 02/09/20 12:55 [facility] (Rec: 02/09/20 13:47 [facility] [id number]) OP Gait Assessment Comments Gait Comments Pt amb with lat lean for clearance of LLE. Pt has dec stance time on LLE. Amb in with cane but amb around gym without. Only uses cane occ in house mosty for out of house. Amb holding hands together in front of her when not using cane PT-OP-M Strength Start: 02/08/20 17:38 Freq: Status: Active Protocol: Document 02/09/20 12:55 [facility] (Rec: 02/09/20 13:47 [facility] [id number]) Hip Strength Hip Manual Muscle Testing Right Flexion (L2) 3+ Fair+ Extension (S1) 3+ Fair+ Abduction 3+ Fair+ External Rotation 3+ Fair+ Internal Rotation 3+ Fair+ Left Flexion (L2) 3 Fair Extension (S1) 3 Fair Abduction 3+ Fair+ External Rotation 3 Fair Internal Rotation 3 Fair Knee Strength Knee Manual Muscle Testing Right Flexion (S2) 4+ Good+ Extension (L3) 4 Good Left Flexion (S2) 3+ Fair+ Extension (L3) 3+ Fair+ Ankle/Foot Strength Ankle and Foot Manual Muscle Testing Left Dorsiflexion (L4) 2- Poor- Plantarflexion (S1) 0 Zero Right Dorsiflexion (L4) 5 Normal Plantarflexion (S1) 4 Good Comments PF tested seated PT-OP-Q Treatments Start: 02/08/20 17:38 Freq: Status: Active Protocol: Document 03/16/20 08:20 [facility] (Rec: 03/16/20 08:58 [facility] [id number]) Cardio Equipment Recumbent Stepper (Sci-Fit) Duration (Minutes) 7 Resistance 5 Seat Position 8 Other Cues for left LE alignment, 0. 8 miles Gym Equipment Shuttle Recovery Bilateral Squats Details B squats Resistance 112# Shuttle Recovery Platform Unstable Reps/Time 2x15 cued to WB equally into B LE Shuttle Balance red clips Reps/Duration w/hitting balloon Comments fwd & side: WBOS & NBOS & staggered stance B Therapeutic Ball seated Ball Size/Color 55cm Body Position seated Reps/Duration 12 ea B Comments 1. alt arm lifts 2. alt marches 3. reciprocal arm & march 4. knee ext 5. bounces 6. ant.post pelvic tilt, side 7. circles CW, CCW Therapeutic Exercises Standing Exercises side step Side bilateral Equipment Used yellow Reps/Minutes 2x20ft Gait Training Gait Activity wt shifts Description fwd step w/alt arm swing B arm swing Description standing in place alt Gait Description working on arm swing for 200ft Neuro Re-Education Treatment Balance Activities EC Reps/Duration 15 ea Comments 1. marches B 2. knee flex B PT-OP-T Assessment and Plan Start: 02/08/20 17:38 Freq: Status: Active Protocol: Document 03/16/20 08:20 [facility] (Rec: 03/16/20 08:58 [facility] [id number]) Physical Therapy Assessment Goals 6 min walk Halfway Goal (LTG) Pt will be able to inc 6MWT to amb 1100ft w/o AD with no instances of foot catching to show improved ability to amb in community. LTG Duration 05/11/20 sit to stand Short Term Goal (STG) Pt will improve 5x sit to stand time to 24 sec to show improved strength and stability. STG Duration 03/27/20 Ui Developer Designer Goal (LTG) Pt will improve 5x sit to stand time to 14 sec to show improved strength and stability. LTG Duration 05/11/20 FGA Ui Developer Designer Goal (LTG) Pt will score >23/30 in order to show dec risk of falls. LTG Duration 05/11/20 Gait Deviation Ui Developer Designer Goal (LTG) Pt will amb without cueing with UE at side with arm swing present LTG Duration 05/11/20 DGI Impairment DGI 13/24 Short Term Goal (STG) Pt iwll improve DGI to 16/24 to show improved balance. STG Duration 03/27/20 Ui Developer Designer Goal (LTG) Pt will be able to score at least a 20/24 to demonstrate safe dynamic gait and low fall risk. LTG Duration 05/11/20 Assessment Summary Assessment Pt cont to improve with gait but does require cueing to not hold arms together in front of her when walking. Cueing for upright posture throughout session Physical Therapy Plan Frequency and Duration Frequency of Treatment 2x/Week Duration of Treatment 3 months Plan of Care Start Date 02/09/20 Plan of Care End Date 05/11/20 Next Visit Focus/Plan Next Note Type Treatment Note Next Visit Plan work on progressing balance & gait
--- NOTE | 2020-03-22 14:29 | PT.OTN ---
Current Diagnoses Epilepsy, unspecified, not intractable, without status epilepticus (03/22/20) Difficulty in walking, not elsewhere classified (03/22/20) Weakness (03/22/20) Contusion of right elbow, initial encounter (03/22/20) Physical Therapy Treatment Note PT-OP-A Visit Information Start: 02/08/20 17:38 Freq: Status: Active Protocol: Document 03/22/20 13:53 [facility] (Rec: 03/22/20 14:23 [facility] [id number]) Out-Patient Physical Therapy Visit Information Visit Information Visit Type Treatment Note Visit Start Time 13:50 Visit Stop Time 14:30 Total Visit Minutes 40 Visit Number 9 Number of GAS LINE INSTALLER SUPERVISOR Visits 0 PT-OP-B Current Condition Start: 02/08/20 17:38 Freq: Status: Active Protocol: Document 02/09/20 12:55 [facility] (Rec: 02/09/20 13:47 [facility] [id number]) Current Condition History of Current Condition Current Complaints balance History of Current Condition Pt reports a fall a little while ago that she hurt her elbow but her elbow feels fine now. She has not had many falls recently but reports tripping occasionally with stumbles d/t tripping on things like rugs at home. She has not been walking much. Pt reports she has done small walks. She has not been doing her prior PT and OT exercises. Pt walks about 3 blocks to the 711 some times then back. Pt wants to be able to walk to the water sometime. Pt reports being indep except washing back and hair. She brushes her hair herself now and indep with dressing. Pt helps sometimes with some easier cooking and does some cleaning. 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 She had a R ant temporal lobe resection in 10/19. Pt could walk without AD prior to surgery and was indep with ADLs. Pt has had weakness on L side since she was an infant so she has worn DAFO since then. At this time the dynamic aspect is stabilized. Pt returned home from inpatient rehab 10/31. Mom helps pt bath with bath chair. Mom helps some w/L side dressing but she is able to do indep also. Pt has selective mutism. Prior Treatments and Tests PT & OT with good gains after surgery-stopped d/t COVID Treatment Goals Patient/Caregiver Goals Walk further ~1 miles, inc balance Personal Factors Other Personal Factors That May Effect BAER occasionally, has visual Therapy/Recovery field deficit to L , no seizures since surgery, selective mutism PT-OP-C Subjective Start: 02/08/20 17:38 Freq: Status: Active Protocol: Document 03/22/20 13:53 [facility] (Rec: 03/22/20 14:23 [facility] [id number]) OP-PT Subjective Patient Comments Patient Comments No new c/o, states she has been sleeping most of the day. PT-OP-D Balance Start: 02/08/20 17:38 Freq: Status: Active Protocol: Document 02/09/20 12:55 [facility] (Rec: 02/09/20 13:47 [facility] [id number]) Balance Tests Ventura Balance Test Ventura Balance Test Score 45 PT-OP-E Functional Tests Start: 02/08/20 17:38 Freq: Status: Active Protocol: Document 02/09/20 12:55 [facility] (Rec: 02/09/20 13:47 [facility] [id number]) Functional Tests 6 Minute Walk Test Distance 924ft Device Used none Comments 1 stumble catching foot 30 Second Sit to Stand Test Score 5 Comments cox cushion chair Dynamic Gait Index (DGI) Score 13 Five Times Sit to Stand Test Score 30 sec Comments cox cushion chair Functional Gait Assessment Score 13 PT-OP-G Mobility & Gait Start: 02/08/20 17:38 Freq: Status: Active Protocol: Document 02/09/20 12:55 [facility] (Rec: 02/09/20 13:47 [facility] [id number]) OP Gait Assessment Comments Gait Comments Pt amb with lat lean for clearance of LLE. Pt has dec stance time on LLE. Amb in with cane but amb around gym without. Only uses cane occ in house mosty for out of house. Amb holding hands together in front of her when not using cane PT-OP-M Strength Start: 02/08/20 17:38 Freq: Status: Active Protocol: Document 02/09/20 12:55 [facility] (Rec: 02/09/20 13:47 [facility] [id number]) Hip Strength Hip Manual Muscle Testing Right Flexion (L2) 3+ Fair+ Extension (S1) 3+ Fair+ Abduction 3+ Fair+ External Rotation 3+ Fair+ Internal Rotation 3+ Fair+ Left Flexion (L2) 3 Fair Extension (S1) 3 Fair Abduction 3+ Fair+ External Rotation 3 Fair Internal Rotation 3 Fair Knee Strength Knee Manual Muscle Testing Right Flexion (S2) 4+ Good+ Extension (L3) 4 Good Left Flexion (S2) 3+ Fair+ Extension (L3) 3+ Fair+ Ankle/Foot Strength Ankle and Foot Manual Muscle Testing Left Dorsiflexion (L4) 2- Poor- Plantarflexion (S1) 0 Zero Right Dorsiflexion (L4) 5 Normal Plantarflexion (S1) 4 Good Comments PF tested seated PT-OP-Q Treatments Start: 02/08/20 17:38 Freq: Status: Active Protocol: Document 03/22/20 13:53 [facility] (Rec: 03/22/20 14:23 [facility] [id number]) Cardio Equipment Recumbent Elliptical (Biodex) Duration (Minutes) 8 Resistance 7 Seat Position 4 Gym Equipment Shuttle Recovery Unilateral Squats Details unilateral squats Resistance 62# Shuttle Recovery Platform Stable Reps/Time 2x10 reps, cueing to avoid knee valgus Bilateral Squats Details B squats Resistance 112# Shuttle Recovery Platform Unstable Reps/Time 2x15 cued to WB equally into B LE Shuttle Balance red clips Details bal and weight shifting Reps/Duration w/hitting balloon Comments fwd & side: WBOS & NBOS & staggered stance B Therapeutic Ball seated Ball Size/Color 55cm Body Position seated Reps/Duration 12 ea B Comments 1. alt arm lifts 2. alt marches 3. reciprocal arm & march 4. knee ext 5. bounces 6. ant.post pelvic tilt, side 7. circles CW, CCW Gait Training Gait Activity wt shifts Description fwd step w/alt arm swing B arm swing Description standing in place alt Gait Description working on arm swing for 200ft Neuro Re-Education Treatment Balance Activities EC Reps/Duration 15 ea Comments 1. marches B 2. knee flex B PT-OP-T Assessment and Plan Start: 02/08/20 17:38 Freq: Status: Active Protocol: Document 03/22/20 13:53 [facility] (Rec: 03/22/20 14:23 [facility] [id number]) Physical Therapy Assessment Goals 6 min walk Mcc Goal (LTG) Pt will be able to inc 6MWT to amb 1100ft w/o AD with no instances of foot catching to show improved ability to amb in community. LTG Duration 05/11/20 sit to stand Short Term Goal (STG) Pt will improve 5x sit to stand time to 24 sec to show improved strength and stability. STG Duration 03/27/20 Sales Assistant Displays Goal (LTG) Pt will improve 5x sit to stand time to 14 sec to show improved strength and stability. LTG Duration 05/11/20 FGA Sales Assistant Displays Goal (LTG) Pt will score >23/30 in order to show dec risk of falls. LTG Duration 05/11/20 Gait Deviation Mcc Goal (LTG) Pt will amb without cueing with UE at side with arm swing present LTG Duration 05/11/20 DGI Impairment DGI 13/24 Short Term Goal (STG) Pt iwll improve DGI to 16/24 to show improved balance. STG Duration 03/27/20 Mcc Goal (LTG) Pt will be able to score at least a 20/24 to demonstrate safe dynamic gait and low fall risk. LTG Duration 05/11/20 Assessment Summary Assessment Able to alternate use of UE's well with balloon volleyball, slow gait, with typical speed has difficulty with arm swing. Cues for LE alignment with recumbant elliptical and shuttle leg press. No catching of toe with gait today. Physical Therapy Plan Frequency and Duration Frequency of Treatment 2x/Week Duration of Treatment 3 months Plan of Care Start Date 02/09/20 Plan of Care End Date 05/11/20 Therapeutic Interventions Therapeutic Interventions Aquatic Therapy,Balance Training,Gait Training,Home Exercise Program,Manual Therapy,Neuromuscular Re- education,Orthotic/Prosthetic Management,Patient/Caregiver Education,Self-Care/Home Management,Taping,Therapeutic Activities,Therapeutic Exercises Modalities Electric Stimulation Next Visit Focus/Plan Next Note Type Progress Note Next Visit Plan Continue PT per POC
--- NOTE | 2020-03-23 14:28 | PT.OTN ---
Current Diagnoses Epilepsy, unspecified, not intractable, without status epilepticus (03/23/20) Difficulty in walking, not elsewhere classified (03/23/20) Weakness (03/23/20) Contusion of right elbow, initial encounter (03/23/20) Physical Therapy Treatment Note PT-OP-A Visit Information Start: 02/08/20 17:38 Freq: Status: Active Protocol: Document 03/23/20 13:51 [facility] (Rec: 03/23/20 14:28 [facility] [id number]) Out-Patient Physical Therapy Visit Information Visit Information Visit Type Progress Note Visit Start Time 13:45 Visit Stop Time 14:23 Total Visit Minutes 38 Visit Number 10 Number of ASSISTANT PROFESSOR NURSE EDUCATION Visits 0 PT-OP-B Current Condition Start: 02/08/20 17:38 Freq: Status: Active Protocol: Document 02/09/20 12:55 [facility] (Rec: 02/09/20 13:47 [facility] [id number]) Current Condition History of Current Condition Current Complaints balance History of Current Condition Pt reports a fall a little while ago that she hurt her elbow but her elbow feels fine now. She has not had many falls recently but reports tripping occasionally with stumbles d/t tripping on things like rugs at home. She has not been walking much. Pt reports she has done small walks. She has not been doing her prior PT and OT exercises. Pt walks about 3 [address] to the [address]11 some times then back. Pt wants to be able to walk to the water sometime. Pt reports being indep except washing back and hair. She brushes her hair herself now and indep with dressing. Pt helps sometimes with some easier cooking and does some cleaning. 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 She had a R ant temporal lobe resection in 10/19. Pt could walk without AD prior to surgery and was indep with ADLs. Pt has had weakness on L side since she was an so she has worn DAFO since then. At this time the dynamic aspect is stabilized. Pt returned home from inpatient rehab 10/31. Mom helps pt bath with bath chair. Mom helps some w/L side dressing but she is able to do indep also. Pt has selective mutism. Prior Treatments and Tests PT & OT with good gains after surgery-stopped d/t COVID Treatment Goals Patient/Caregiver Goals Walk further ~1 miles, inc balance Personal Factors Other Personal Factors That May Effect BAER occasionally, has visual Therapy/Recovery field deficit to L , no seizures since surgery, selective mutism PT-OP-C Subjective Start: 02/08/20 17:38 Freq: Status: Active Protocol: Document 03/23/20 13:51 [facility] (Rec: 03/23/20 14:28 [facility] [id number]) OP-PT Subjective Patient Comments Patient Comments Pt reports doing her exercises athome. PT-OP-D Balance Start: 02/08/20 17:38 Freq: Status: Active Protocol: Document 02/09/20 12:55 [facility] (Rec: 02/09/20 13:47 [facility] [id number]) Balance Tests Ventura Balance Test Ventura Balance Test Score 45 PT-OP-E Functional Tests Start: 02/08/20 17:38 Freq: Status: Active Protocol: Document 02/09/20 12:55 [facility] (Rec: 02/09/20 13:47 [facility] [id number]) Functional Tests 6 Minute Walk Test Distance 924ft Device Used none Comments 1 stumble catching foot 30 Second Sit to Stand Test Score 5 Comments cox cushion chair Dynamic Gait Index (DGI) Score 13 Five Times Sit to Stand Test Score 30 sec Comments cox cushion chair Functional Gait Assessment Score 13 PT-OP-G Mobility & Gait Start: 02/08/20 17:38 Freq: Status: Active Protocol: Document 02/09/20 12:55 [facility] (Rec: 02/09/20 13:47 [facility] [id number]) OP Gait Assessment Comments Gait Comments Pt amb with lat lean for clearance of LLE. Pt has dec stance time on LLE. Amb in with cane but amb around gym without. Only uses cane occ in house mosty for out of house. Amb holding hands together in front of her when not using cane PT-OP-M Strength Start: 02/08/20 17:38 Freq: Status: Active Protocol: Document 02/09/20 12:55 [facility] (Rec: 02/09/20 13:47 [facility] [id number]) Hip Strength Hip Manual Muscle Testing Right Flexion (L2) 3+ Fair+ Extension (S1) 3+ Fair+ Abduction 3+ Fair+ External Rotation 3+ Fair+ Internal Rotation 3+ Fair+ Left Flexion (L2) 3 Fair Extension (S1) 3 Fair Abduction 3+ Fair+ External Rotation 3 Fair Internal Rotation 3 Fair Knee Strength Knee Manual Muscle Testing Right Flexion (S2) 4+ Good+ Extension (L3) 4 Good Left Flexion (S2) 3+ Fair+ Extension (L3) 3+ Fair+ Ankle/Foot Strength Ankle and Foot Manual Muscle Testing Left Dorsiflexion (L4) 2- Poor- Plantarflexion (S1) 0 Zero Right Dorsiflexion (L4) 5 Normal Plantarflexion (S1) 4 Good Comments PF tested seated PT-OP-Q Treatments Start: 02/08/20 17:38 Freq: Status: Active Protocol: Document 03/23/20 13:51 [facility] (Rec: 03/23/20 14:28 [facility] [id number]) Cardio Equipment Recumbent Elliptical (Biodex) Duration (Minutes) 7 Resistance 7 Seat Position 4 Therapeutic Exercises Standing Exercises sit to stand Reps/Minutes 2x5 Other Exercises 6 min walk Other Exercise Name 1153 ft Gait Training Gait Activity arm swing Description standing in place alt Comments after 15 B added with marching with swing, then 15 B w/use of dowel fro arm swing Gait Description working on arm swing for 200ft Neuro Re-Education Treatment Balance Activities testing Details DGI FGA SLS Details toe taps to 8 in step PT-OP-T Assessment and Plan Start: 02/08/20 17:38 Freq: Status: Active Protocol: Document 03/23/20 13:51 [facility] (Rec: 03/23/20 14:28 [facility] [id number]) Physical Therapy Assessment Goals 6 min walk Perianesthesia Nurse Goal (LTG) Pt will be able to inc 6MWT to amb 1100ft w/o AD with no instances of foot catching to show improved ability to amb in community. LTG Duration achieved sit to stand Short Term Goal (STG) Pt will improve 5x sit to stand time to 24 sec to show improved strength and stability. STG Duration achieved Group Home Goal (LTG) Pt will improve 5x sit to stand time to 14 sec to show improved strength and stability. LTG Duration 05/11/20 FGA Group Home Goal (LTG) Pt will score >23/30 in order to show dec risk of falls. LTG Duration 05/11/20 Gait Deviation Perianesthesia Nurse Goal (LTG) Pt will amb without cueing with UE at side with arm swing present 9-16-still requires cueing LTG Duration 05/11/20 DGI Impairment DGI Short Term Goal (STG) Pt iwll improve DGI to to show improved balance. STG Duration achieved Perianesthesia Nurse Goal (LTG) Pt will be able to score at least a to demonstrate safe dynamic gait and low fall risk. LTG Duration 05/11/20 Assessment Summary Assessment Pt has made ecellent progress towards goals in balance, 6 min walk, sit to stand strength. She cont to garcia cueing with gait Physical Therapy Plan Frequency and Duration Frequency of Treatment 2x/Week Duration of Treatment 3 months Plan of Care Start Date 02/09/20 Plan of Care End Date 05/11/20 Next Visit Focus/Plan Next Note Type Progress Note Next Visit Plan work on progressing balance & gait
--- NOTE | 2020-03-28 17:05 | PT.OTN ---
Current Diagnoses Epilepsy, unspecified, not intractable, without status epilepticus (03/28/20) Difficulty in walking, not elsewhere classified (03/28/20) Weakness (03/28/20) Contusion of right elbow, initial encounter (03/28/20) Physical Therapy Treatment Note PT-OP-A Visit Information Start: 02/08/20 17:38 Freq: Status: Active Protocol: Document 03/28/20 13:22 [facility] (Rec: 03/28/20 14:03 [facility] [id number]) Out-Patient Physical Therapy Visit Information Visit Information Visit Type Treatment Note Visit Start Time 13:19 Visit Stop Time 14:00 Total Visit Minutes 41 Visit Number 11 Number of ROASTERMAN Visits 0 PT-OP-B Current Condition Start: 02/08/20 17:38 Freq: Status: Active Protocol: Document 02/09/20 12:55 [facility] (Rec: 02/09/20 13:47 [facility] [id number]) Current Condition History of Current Condition Current Complaints balance History of Current Condition Pt reports a fall a little while ago that she hurt her elbow but her elbow feels fine now. She has not had many falls recently but reports tripping occasionally with stumbles d/t tripping on things like rugs at home. She has not been walking much. Pt reports she has done small walks. She has not been doing her prior PT and OT exercises. Pt walks about 3 [address] to the [address] some times then back. Pt wants to be able to walk to the water sometime. Pt reports being indep except washing back and hair. She brushes her hair herself now and indep with dressing. Pt helps sometimes with some easier cooking and does some cleaning. 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 She had a R ant temporal lobe resection in 10/19. Pt could walk without AD prior to surgery and was indep with ADLs. Pt has had weakness on L side since she was an so she has worn DAFO since then. At this time the dynamic aspect is stabilized. Pt returned home from inpatient rehab 10/31. Mom helps pt bath with bath chair. Mom helps some w/L side dressing but she is able to do indep also. Pt has selective mutism. Prior Treatments and Tests PT & OT with good gains after surgery-stopped d/t COVID Treatment Goals Patient/Caregiver Goals Walk further ~1 miles, inc balance Personal Factors Other Personal Factors That May Effect BAER occasionally, has visual Therapy/Recovery field deficit to L , no seizures since surgery, selective mutism PT-OP-C Subjective Start: 02/08/20 17:38 Freq: Status: Active Protocol: Document 03/28/20 13:22 [facility] (Rec: 03/28/20 14:03 [facility] [id number]) OP-PT Subjective Patient Comments Patient Comments No new c/o. PT-OP-D Balance Start: 02/08/20 17:38 Freq: Status: Active Protocol: Document 02/09/20 12:55 [facility] (Rec: 02/09/20 13:47 [facility] [id number]) Balance Tests Ventura Balance Test Ventura Balance Test Score 45 PT-OP-E Functional Tests Start: 02/08/20 17:38 Freq: Status: Active Protocol: Document 02/09/20 12:55 [facility] (Rec: 02/09/20 13:47 [facility] [id number]) Functional Tests 6 Minute Walk Test Distance 924ft Device Used none Comments 1 stumble catching foot 30 Second Sit to Stand Test Score 5 Comments cox cushion chair Dynamic Gait Index (DGI) Score 13 Five Times Sit to Stand Test Score 30 sec Comments cox cushion chair Functional Gait Assessment Score 13 PT-OP-G Mobility & Gait Start: 02/08/20 17:38 Freq: Status: Active Protocol: Document 02/09/20 12:55 [facility] (Rec: 02/09/20 13:47 [facility] [id number]) OP Gait Assessment Comments Gait Comments Pt amb with lat lean for clearance of LLE. Pt has dec stance time on LLE. Amb in with cane but amb around gym without. Only uses cane occ in house mosty for out of house. Amb holding hands together in front of her when not using cane PT-OP-M Strength Start: 02/08/20 17:38 Freq: Status: Active Protocol: Document 02/09/20 12:55 [facility] (Rec: 02/09/20 13:47 [facility] [id number]) Hip Strength Hip Manual Muscle Testing Right Flexion (L2) 3+ Fair+ Extension (S1) 3+ Fair+ Abduction 3+ Fair+ External Rotation 3+ Fair+ Internal Rotation 3+ Fair+ Left Flexion (L2) 3 Fair Extension (S1) 3 Fair Abduction 3+ Fair+ External Rotation 3 Fair Internal Rotation 3 Fair Knee Strength Knee Manual Muscle Testing Right Flexion (S2) 4+ Good+ Extension (L3) 4 Good Left Flexion (S2) 3+ Fair+ Extension (L3) 3+ Fair+ Ankle/Foot Strength Ankle and Foot Manual Muscle Testing Left Dorsiflexion (L4) 2- Poor- Plantarflexion (S1) 0 Zero Right Dorsiflexion (L4) 5 Normal Plantarflexion (S1) 4 Good Comments PF tested seated PT-OP-Q Treatments Start: 02/08/20 17:38 Freq: Status: Active Protocol: Document 03/28/20 13:22 [facility] (Rec: 03/28/20 14:03 [facility] [id number]) Cardio Equipment Recumbent Elliptical (Biodex) Duration (Minutes) 7 Resistance 7 Seat Position 4 Gym Equipment Shuttle Recovery Unilateral Squats Details unilateral squats Resistance 62# Shuttle Recovery Platform Stable Reps/Time 2x15 reps, cueing to avoid knee valgus Bilateral Squats Details B squats Resistance 112# Shuttle Recovery Platform Unstable Reps/Time 2x15 cued to WB equally into B LE Shuttle Balance red clips Details bal and weight shifting Reps/Duration w/hitting balloon Comments fwd & side: WBOS & NBOS & staggered stance B Therapeutic Ball seated Ball Size/Color 55cm Body Position seated Reps/Duration 12 ea B Comments 1. alt arm lifts 2. alt marches 3. reciprocal arm & march 4. knee ext 5. bounces 6. ant.post pelvic tilt, side 7. circles CW, CCW Gait Training Gait Activity arm swing Description standing in place alt Comments after 15 B added with marching with swing, then 15 B w/use of dowel fro arm swing Gait Description working on arm swing for [id number] Comments 1x with holding poles, PT facilitation for arm swing Neuro Re-Education Treatment Balance Activities push/pull holding poles Details standing Comments to facilitate balance reactions, core engagement SLS Surface level Equipment UE support as needed at counter Reps/Duration 5x ea LE PT-OP-T Assessment and Plan Start: 02/08/20 17:38 Freq: Status: Active Protocol: Document 03/28/20 13:22 [facility] (Rec: 03/28/20 14:03 [facility] [id number]) Physical Therapy Assessment Goals 6 min walk Rotary Saw Operator Goal (LTG) Pt will be able to inc 6MWT to amb 1100ft w/o AD with no instances of foot catching to show improved ability to amb in community. LTG Duration achieved sit to stand Short Term Goal (STG) Pt will improve 5x sit to stand time to 24 sec to show improved strength and stability. STG Duration achieved Rotary Saw Operator Goal (LTG) Pt will improve 5x sit to stand time to 14 sec to show improved strength and stability. LTG Duration 05/11/20 FGA Rotary Saw Operator Goal (LTG) Pt will score >23/30 in order to show dec risk of falls. LTG Duration 05/11/20 Gait Deviation Rotary Saw Operator Goal (LTG) Pt will amb without cueing with UE at side with arm swing present 9-16-still requires cueing LTG Duration 05/11/20 DGI Impairment DGI 13/24 Short Term Goal (STG) Pt iwll improve DGI to 16/24 to show improved balance. STG Duration achieved Jail Goal (LTG) Pt will be able to score at least a 20/24 to demonstrate safe dynamic gait and low fall risk. LTG Duration 05/11/20 Assessment Summary Assessment Patient continues to require cues for increased use of her left UE and LE but is improving with PT. Reports compliance to HEP. Physical Therapy Plan Frequency and Duration Frequency of Treatment 2x/Week Duration of Treatment 3 months Plan of Care Start Date 02/09/20 Plan of Care End Date 05/11/20 Therapeutic Interventions Therapeutic Interventions Aquatic Therapy,Balance Training,Gait Training,Home Exercise Program,Manual Therapy,Neuromuscular Re- education,Orthotic/Prosthetic Management,Patient/Caregiver Education,Self-Care/Home Management,Taping,Therapeutic Activities,Therapeutic Exercises Modalities Electric Stimulation Next Visit Focus/Plan Next Note Type Treatment Note Next Visit Plan Continue PT to improve gait, balance, functional strength.
--- NOTE | 2020-03-31 15:53 | PT.OTN ---
Current Diagnoses Epilepsy, unspecified, not intractable, without status epilepticus (03/31/20) Difficulty in walking, not elsewhere classified (03/31/20) Weakness (03/31/20) Contusion of right elbow, initial encounter (03/31/20) Physical Therapy Treatment Note PT-OP-A Visit Information Start: 02/08/20 17:38 Freq: Status: Active Protocol: Document 03/31/20 15:44 SAK (Rec: 03/31/20 15:53 SAK [id number]) Out-Patient Physical Therapy Visit Information Visit Information Visit Type Treatment Note Visit Start Time 13:02 Visit Stop Time 13:45 Total Visit Minutes 43 Visit Number 12 Number of RN STAFFING Visits 0 PT-OP-B Current Condition Start: 02/08/20 17:38 Freq: Status: Active Protocol: Document 02/09/20 12:55 [facility] (Rec: 02/09/20 13:47 [facility] [id number]) Current Condition History of Current Condition Current Complaints balance History of Current Condition Pt reports a fall a little while ago that she hurt her elbow but her elbow feels fine now. She has not had many falls recently but reports tripping occasionally with stumbles d/t tripping on things like rugs at home. She has not been walking much. Pt reports she has done small walks. She has not been doing her prior PT and OT exercises. Pt walks about 3 blocks to the [address]11 some times then back. Pt wants to be able to walk to the water sometime. Pt reports being indep except washing back and hair. She brushes her hair herself now and indep with dressing. Pt helps sometimes with some easier cooking and does some cleaning. 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 She had a R ant temporal lobe resection in 10/19. Pt could walk without AD prior to surgery and was indep with ADLs. Pt has had weakness on L side since she was an so she has worn DAFO since then. At this time the dynamic aspect is stabilized. Pt returned home from inpatient rehab 10/31. Mom helps pt bath with bath chair. Mom helps some w/L side dressing but she is able to do indep also. Pt has selective mutism. Prior Treatments and Tests PT & OT with good gains after surgery-stopped d/t COVID Treatment Goals Patient/Caregiver Goals Walk further ~1 miles, inc balance Personal Factors Other Personal Factors That May Effect BAER occasionally, has visual Therapy/Recovery field deficit to L , no seizures since surgery, selective mutism PT-OP-C Subjective Start: 02/08/20 17:38 Freq: Status: Active Protocol: Document 03/31/20 15:44 SAK (Rec: 03/31/20 15:53 SAK [id number]) OP-PT Subjective Patient Comments Patient Comments Patient reports she just woke up, no new c/o. States she is doing her exercises and some walking. PT-OP-D Balance Start: 02/08/20 17:38 Freq: Status: Active Protocol: Document 02/09/20 12:55 [facility] (Rec: 02/09/20 13:47 [facility] [id number]) Balance Tests Ventura Balance Test Ventura Balance Test Score 45 PT-OP-E Functional Tests Start: 02/08/20 17:38 Freq: Status: Active Protocol: Document 02/09/20 12:55 [facility] (Rec: 02/09/20 13:47 [facility] [id number]) Functional Tests 6 Minute Walk Test Distance 924ft Device Used none Comments 1 stumble catching foot 30 Second Sit to Stand Test Score 5 Comments cox cushion chair Dynamic Gait Index (DGI) Score 13 Five Times Sit to Stand Test Score 30 sec Comments cox cushion chair Functional Gait Assessment Score 13 PT-OP-G Mobility & Gait Start: 02/08/20 17:38 Freq: Status: Active Protocol: Document 02/09/20 12:55 [facility] (Rec: 02/09/20 13:47 [facility] [id number]) OP Gait Assessment Comments Gait Comments Pt amb with lat lean for clearance of LLE. Pt has dec stance time on LLE. Amb in with cane but amb around gym without. Only uses cane occ in house mosty for out of house. Amb holding hands together in front of her when not using cane PT-OP-M Strength Start: 02/08/20 17:38 Freq: Status: Active Protocol: Document 02/09/20 12:55 [facility] (Rec: 02/09/20 13:47 [facility] [id number]) Hip Strength Hip Manual Muscle Testing Right Flexion (L2) 3+ Fair+ Extension (S1) 3+ Fair+ Abduction 3+ Fair+ External Rotation 3+ Fair+ Internal Rotation 3+ Fair+ Left Flexion (L2) 3 Fair Extension (S1) 3 Fair Abduction 3+ Fair+ External Rotation 3 Fair Internal Rotation 3 Fair Knee Strength Knee Manual Muscle Testing Right Flexion (S2) 4+ Good+ Extension (L3) 4 Good Left Flexion (S2) 3+ Fair+ Extension (L3) 3+ Fair+ Ankle/Foot Strength Ankle and Foot Manual Muscle Testing Left Dorsiflexion (L4) 2- Poor- Plantarflexion (S1) 0 Zero Right Dorsiflexion (L4) 5 Normal Plantarflexion (S1) 4 Good Comments PF tested seated PT-OP-Q Treatments Start: 02/08/20 17:38 Freq: Status: Active Protocol: Document 03/31/20 15:44 [facility] (Rec: 03/31/20 15:53 [facility] [id number]) Cardio Equipment Recumbent Elliptical (Biodex) Duration (Minutes) 8 Resistance 7 Seat Position 4 Gym Equipment Shuttle Balance red clips Details bal and weight shifting Reps/Duration w/hitting balloon Comments fwd & side: WBOS & NBOS & staggered stance B Sport Cord 1 Exercise Details forward, back, side Cord/Resistance green Reps/Duration 5x each direction Neuro Re-Education Treatment Balance Activities balloon in the air Details patient doing on own Comments max 5 in a row push/pull holding poles Details standing Comments to facilitate balance reactions, core engagement SLS Surface level Equipment UE support as needed at counter Reps/Duration 5x ea LE PT-OP-T Assessment and Plan Start: 02/08/20 17:38 Freq: Status: Active Protocol: Document 03/31/20 15:44 [facility] (Rec: 03/31/20 15:53 [facility] [id number]) Physical Therapy Assessment Goals 6 min walk Section Beamer Goal (LTG) Pt will be able to inc 6MWT to amb 1100ft w/o AD with no instances of foot catching to show improved ability to amb in community. LTG Duration achieved sit to stand Short Term Goal (STG) Pt will improve 5x sit to stand time to 24 sec to show improved strength and stability. STG Duration achieved Fci Goal (LTG) Pt will improve 5x sit to stand time to 14 sec to show improved strength and stability. LTG Duration 05/11/20 FGA Section Beamer Goal (LTG) Pt will score >23/30 in order to show dec risk of falls. LTG Duration 05/11/20 Gait Deviation Fci Goal (LTG) Pt will amb without cueing with UE at side with arm swing present 9--still requires cueing LTG Duration 05/11/20 DGI Impairment DGI 13/24 Short Term Goal (STG) Pt iwll improve DGI to 16/24 to show improved balance. STG Duration achieved Fci Goal (LTG) Pt will be able to score at least a 20/24 to demonstrate safe dynamic gait and low fall risk. LTG Duration 05/11/20 Physical Therapy Plan Frequency and Duration Frequency of Treatment 2x/Week Duration of Treatment 3 months Plan of Care Start Date 02/09/20 Plan of Care End Date 05/11/20 Therapeutic Interventions Therapeutic Interventions Aquatic Therapy,Balance Training,Gait Training,Home Exercise Program,Manual Therapy,Neuromuscular Re- education,Orthotic/Prosthetic Management,Patient/Caregiver Education,Self-Care/Home Management,Taping,Therapeutic Activities,Therapeutic Exercises Modalities Electric Stimulation Next Visit Focus/Plan Next Note Type Treatment Note Next Visit Plan Continue PT to improve gait, balance, functional strength.
--- NOTE | 2020-04-04 12:56 | PT-OP ANOTE ---
cancelled PT appointment due to grandmother ill
--- NOTE | 2020-04-11 08:09 | PT-OP ANOTE ---
Cancelled PT visit, NRG
--- NOTE | 2020-04-13 16:47 | PT.OTN ---
Current Diagnoses Epilepsy, unspecified, not intractable, without status epilepticus (04/13/20) Difficulty in walking, not elsewhere classified (04/13/20) Weakness (04/13/20) Contusion of right elbow, initial encounter (04/13/20) Physical Therapy Treatment Note PT-OP-A Visit Information Start: 02/08/20 17:38 Freq: Status: Active Protocol: Document 04/13/20 16:03 [facility] (Rec: 04/13/20 16:47 [facility] [id number]) Out-Patient Physical Therapy Visit Information Visit Information Visit Type Treatment Note Visit Start Time 16:06 Visit Stop Time 16:44 Total Visit Minutes 38 Visit Number 13 Number of CARBURETOR SPECIALIST Visits 0 PT-OP-B Current Condition Start: 02/08/20 17:38 Freq: Status: Active Protocol: Document 02/09/20 12:55 [facility] (Rec: 02/09/20 13:47 [facility] [id number]) Current Condition History of Current Condition Current Complaints balance History of Current Condition Pt reports a fall a little while ago that she hurt her elbow but her elbow feels fine now. She has not had many falls recently but reports tripping occasionally with stumbles d/t tripping on things like rugs at home. She has not been walking much. Pt reports she has done small walks. She has not been doing her prior PT and OT exercises. Pt walks about 3 [address] to the [address]11 some times then back. Pt wants to be able to walk to the water sometime. Pt reports being indep except washing back and hair. She brushes her hair herself now and indep with dressing. Pt helps sometimes with some easier cooking and does some cleaning. 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 She had a R ant temporal lobe resection in 10/19. Pt could walk without AD prior to surgery and was indep with ADLs. Pt has had weakness on L side since she was an infant so she has worn DAFO since then. At this time the dynamic aspect is stabilized. Pt returned home from inpatient rehab 10/31. Mom helps pt bath with bath chair. Mom helps some w/L side dressing but she is able to do indep also. Pt has selective mutism. Prior Treatments and Tests PT & OT with good gains after surgery-stopped d/t COVID Treatment Goals Patient/Caregiver Goals Walk further ~1 miles, inc balance Personal Factors Other Personal Factors That May Effect BAER occasionally, has visual Therapy/Recovery field deficit to L , no seizures since surgery, selective mutism PT-OP-C Subjective Start: 02/08/20 17:38 Freq: Status: Active Protocol: Document 04/13/20 16:03 [facility] (Rec: 04/13/20 16:47 [facility] [id number]) OP-PT Subjective Patient Comments Patient Comments Pt reports she has been doing some small walks. pt reports she has been doing exercises but does not remember which ones when asked PT-OP-D Balance Start: 02/08/20 17:38 Freq: Status: Active Protocol: Document 02/09/20 12:55 [facility] (Rec: 02/09/20 13:47 [facility] [id number]) Balance Tests Ventura Balance Test Ventura Balance Test Score 45 PT-OP-E Functional Tests Start: 02/08/20 17:38 Freq: Status: Active Protocol: Document 02/09/20 12:55 [facility] (Rec: 02/09/20 13:47 [facility] [id number]) Functional Tests 6 Minute Walk Test Distance 924ft Device Used none Comments 1 stumble catching foot 30 Second Sit to Stand Test Score 5 Comments cox cushion chair Dynamic Gait Index (DGI) Score 13 Five Times Sit to Stand Test Score 30 sec Comments cox cushion chair Functional Gait Assessment Score 13 PT-OP-G Mobility & Gait Start: 02/08/20 17:38 Freq: Status: Active Protocol: Document 02/09/20 12:55 [facility] (Rec: 02/09/20 13:47 [facility] [id number]) OP Gait Assessment Comments Gait Comments Pt amb with lat lean for clearance of LLE. Pt has dec stance time on LLE. Amb in with cane but amb around gym without. Only uses cane occ in house mosty for out of house. Amb holding hands together in front of her when not using cane PT-OP-M Strength Start: 02/08/20 17:38 Freq: Status: Active Protocol: Document 02/09/20 12:55 [facility] (Rec: 02/09/20 13:47 [facility] [id number]) Hip Strength Hip Manual Muscle Testing Right Flexion (L2) 3+ Fair+ Extension (S1) 3+ Fair+ Abduction 3+ Fair+ External Rotation 3+ Fair+ Internal Rotation 3+ Fair+ Left Flexion (L2) 3 Fair Extension (S1) 3 Fair Abduction 3+ Fair+ External Rotation 3 Fair Internal Rotation 3 Fair Knee Strength Knee Manual Muscle Testing Right Flexion (S2) 4+ Good+ Extension (L3) 4 Good Left Flexion (S2) 3+ Fair+ Extension (L3) 3+ Fair+ Ankle/Foot Strength Ankle and Foot Manual Muscle Testing Left Dorsiflexion (L4) 2- Poor- Plantarflexion (S1) 0 Zero Right Dorsiflexion (L4) 5 Normal Plantarflexion (S1) 4 Good Comments PF tested seated PT-OP-Q Treatments Start: 02/08/20 17:38 Freq: Status: Active Protocol: Document 04/13/20 16:03 [facility] (Rec: 04/13/20 16:47 [facility] [id number]) Cardio Equipment Recumbent Stepper (Sci-Fit) Duration (Minutes) 7 Resistance 5 Seat Position 8 Other Cues for left LE alignment Gym Equipment Shuttle Recovery Bilateral Squats Details B squats Resistance 112# Shuttle Recovery Platform Unstable Reps/Time 2x15 cued to WB equally into B LE Shuttle Balance red clips Details bal and weight shifting Reps/Duration w/hitting balloon Comments fwd & side: WBOS & NBOS & staggered stance B Therapeutic Exercises Standing Exercises stretch Standing Exercise Name jt Side bilateral Reps/Minutes 1min side step Side bilateral Equipment Used yellow Reps/Minutes 2x20ft sit to stand Reps/Minutes 2x10 Comments no hands Gait Training Gait Activity wt shifts Description fwd step w/alt arm swing B arm swing Description standing in place alt Comments after 15 B added with marching with swing, then 15 B w/use of dowel fro arm swing Gait Description working on arm swing for 200ft Comments 1x with holding poles, PT facilitation for arm swing Neuro Re-Education Treatment Balance Activities balloon in the air Details SLS w/stomp & catch B EC Reps/Duration 10 ea Comments 1. marches B 2. knee flex B PT-OP-T Assessment and Plan Start: 02/08/20 17:38 Freq: Status: Active Protocol: Document 04/13/20 16:03 [facility] (Rec: 04/13/20 16:47 [facility] [id number]) Physical Therapy Assessment Goals 6 min walk Land Reclamation Specialist Goal (LTG) Pt will be able to inc 6MWT to amb 1100ft w/o AD with no instances of foot catching to show improved ability to amb in community. LTG Duration achieved sit to stand Short Term Goal (STG) Pt will improve 5x sit to stand time to 24 sec to show improved strength and stability. STG Duration achieved Longterm Goal (LTG) Pt will improve 5x sit to stand time to 14 sec to show improved strength and stability. LTG Duration 05/11/20 FGA Longterm Goal (LTG) Pt will score >23/30 in order to show dec risk of falls. LTG Duration 05/11/20 Gait Deviation Longterm Goal (LTG) Pt will amb without cueing with UE at side with arm swing present 9-16-still requires cueing LTG Duration 05/11/20 DGI Impairment DGI 13/24 Short Term Goal (STG) Pt iwll improve DGI to 16/24 to show improved balance. STG Duration achieved Longterm Goal (LTG) Pt will be able to score at least a 20/24 to demonstrate safe dynamic gait and low fall risk. LTG Duration 05/11/20 Assessment Summary Assessment Pt is improving with arm swing after doing drills to focus on arm swing for gait. She does require cueing to not hold her hands in front of her . Improving with balance on balance board but requires cueing to use LEs to regain balance vs hands on bar. Physical Therapy Plan Frequency and Duration Frequency of Treatment 2x/Week Duration of Treatment 3 months Plan of Care Start Date 02/09/20 Plan of Care End Date 05/11/20 Next Visit Focus/Plan Next Note Type Treatment Note Next Visit Plan Continue PT to improve gait, balance, functional strength.
--- NOTE | 2020-04-18 15:15 | PT.OTN ---
Current Diagnoses Epilepsy, unspecified, not intractable, without status epilepticus (04/18/20) Difficulty in walking, not elsewhere classified (04/18/20) Weakness (04/18/20) Contusion of right elbow, initial encounter (04/18/20) Physical Therapy Treatment Note PT-OP-A Visit Information Start: 02/08/20 17:38 Freq: Status: Active Protocol: Document 04/18/20 14:34 [facility] (Rec: 04/18/20 15:15 [facility] [id number]) Out-Patient Physical Therapy Visit Information Visit Information Visit Type Treatment Note Visit Start Time 14:35 Visit Stop Time 15:14 Total Visit Minutes 39 Visit Number 14 Number of LAUNDERETTE ATTENDANT Visits 0 PT-OP-B Current Condition Start: 02/08/20 17:38 Freq: Status: Active Protocol: Document 02/09/20 12:55 [facility] (Rec: 02/09/20 13:47 [facility] [id number]) Current Condition History of Current Condition Current Complaints balance History of Current Condition Pt reports a fall a little while ago that she hurt her elbow but her elbow feels fine now. She has not had many falls recently but reports tripping occasionally with stumbles d/t tripping on things like rugs at home. She has not been walking much. Pt reports she has done small walks. She has not been doing her prior PT and OT exercises. Pt walks about 3 blocks to the [address]11 some times then back. Pt wants to be able to walk to the water sometime. Pt reports being indep except washing back and hair. She brushes her hair herself now and indep with dressing. Pt helps sometimes with some easier cooking and does some cleaning. 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 She had a R ant temporal lobe resection in 10/19. Pt could walk without AD prior to surgery and was indep with ADLs. Pt has had weakness on L side since she was an infant so she has worn DAFO since then. At this time the dynamic aspect is stabilized. Pt returned home from inpatient rehab 10/31. Mom helps pt bath with bath chair. Mom helps some w/L side dressing but she is able to do indep also. Pt has selective mutism. Prior Treatments and Tests PT & OT with good gains after surgery-stopped d/t COVID Treatment Goals Patient/Caregiver Goals Walk further ~1 miles, inc balance Personal Factors Other Personal Factors That May Effect BAER occasionally, has visual Therapy/Recovery field deficit to L , no seizures since surgery, selective mutism PT-OP-C Subjective Start: 02/08/20 17:38 Freq: Status: Active Protocol: Document 04/18/20 14:34 [facility] (Rec: 04/18/20 15:15 [facility] [id number]) OP-PT Subjective Patient Comments Patient Comments Pt reports she did a walk almost all the way to [employer] PT-OP-D Balance Start: 02/08/20 17:38 Freq: Status: Active Protocol: Document 02/09/20 12:55 [facility] (Rec: 02/09/20 13:47 [facility] [id number]) Balance Tests Ventura Balance Test Ventura Balance Test Score 45 PT-OP-E Functional Tests Start: 02/08/20 17:38 Freq: Status: Active Protocol: Document 02/09/20 12:55 [facility] (Rec: 02/09/20 13:47 [facility] [id number]) Functional Tests 6 Minute Walk Test Distance 924ft Device Used none Comments 1 stumble catching foot 30 Second Sit to Stand Test Score 5 Comments cox cushion chair Dynamic Gait Index (DGI) Score 13 Five Times Sit to Stand Test Score 30 sec Comments cox cushion chair Functional Gait Assessment Score 13 PT-OP-G Mobility & Gait Start: 02/08/20 17:38 Freq: Status: Active Protocol: Document 02/09/20 12:55 [facility] (Rec: 02/09/20 13:47 [facility] [id number]) OP Gait Assessment Comments Gait Comments Pt amb with lat lean for clearance of LLE. Pt has dec stance time on LLE. Amb in with cane but amb around gym without. Only uses cane occ in house mosty for out of house. Amb holding hands together in front of her when not using cane PT-OP-M Strength Start: 02/08/20 17:38 Freq: Status: Active Protocol: Document 02/09/20 12:55 [facility] (Rec: 02/09/20 13:47 [facility] [id number]) Hip Strength Hip Manual Muscle Testing Right Flexion (L2) 3+ Fair+ Extension (S1) 3+ Fair+ Abduction 3+ Fair+ External Rotation 3+ Fair+ Internal Rotation 3+ Fair+ Left Flexion (L2) 3 Fair Extension (S1) 3 Fair Abduction 3+ Fair+ External Rotation 3 Fair Internal Rotation 3 Fair Knee Strength Knee Manual Muscle Testing Right Flexion (S2) 4+ Good+ Extension (L3) 4 Good Left Flexion (S2) 3+ Fair+ Extension (L3) 3+ Fair+ Ankle/Foot Strength Ankle and Foot Manual Muscle Testing Left Dorsiflexion (L4) 2- Poor- Plantarflexion (S1) 0 Zero Right Dorsiflexion (L4) 5 Normal Plantarflexion (S1) 4 Good Comments PF tested seated PT-OP-Q Treatments Start: 02/08/20 17:38 Freq: Status: Active Protocol: Document 04/18/20 14:34 [facility] (Rec: 04/18/20 15:15 [facility] [id number]) Cardio Equipment Recumbent Elliptical (Biodex) Duration (Minutes) 7 Resistance 7 Seat Position 5 Gym Equipment Shuttle Recovery Bilateral Squats Details B squats Resistance 112# Shuttle Recovery Platform Unstable Reps/Time 2x15 cued to WB equally into B LE Shuttle Balance red clips Details bal and weight shifting Reps/Duration w/hitting balloon Comments fwd & side: WBOS & NBOS & staggered stance B Therapeutic Exercises Sitting Exercises knee flexion Sitting Exercise Name fwd then backwards on rolling stool working on DF Side bilateral Reps/Minutes 50ft each way Standing Exercises sit to stand Standing Exercise Name 1st set 16 in step then 2nd 12 in Reps/Minutes 2x10 Comments no hands Gait Training Gait Activity wt shifts Description fwd step w/alt arm swing B arm swing Description standing in place alt Comments after 15 B added with marching with swing, then 15 B w/use of dowel fro arm swing stairs Description up/down 6 in steps reciprocally Surface no rail Distance/Duration 5x Comments 4 step set up Gait Description working on arm swing for 200ft Neuro Re-Education Treatment Balance Activities balloon in the air Details SLS w/stomp & catch B SLS Details toe tap to 6 in step Reps/Duration 15x ea LE PT-OP-T Assessment and Plan Start: 02/08/20 17:38 Freq: Status: Active Protocol: Document 04/18/20 14:34 [facility] (Rec: 04/18/20 15:15 [facility] [id number]) Physical Therapy Assessment Goals 6 min walk Usp Goal (LTG) Pt will be able to inc 6MWT to amb 1100ft w/o AD with no instances of foot catching to show improved ability to amb in community. LTG Duration achieved sit to stand Short Term Goal (STG) Pt will improve 5x sit to stand time to 24 sec to show improved strength and stability. STG Duration achieved Byproduct Engineer Goal (LTG) Pt will improve 5x sit to stand time to 14 sec to show improved strength and stability. LTG Duration 05/11/20 FGA Byproduct Engineer Goal (LTG) Pt will score >23/30 in order to show dec risk of falls. LTG Duration 05/11/20 Gait Deviation Byproduct Engineer Goal (LTG) Pt will amb without cueing with UE at side with arm swing present 9-16-still requires cueing LTG Duration 05/11/20 DGI Impairment DGI 13/24 Short Term Goal (STG) Pt iwll improve DGI to 16/24 to show improved balance. STG Duration achieved Byproduct Engineer Goal (LTG) Pt will be able to score at least a 20/24 to demonstrate safe dynamic gait and low fall risk. LTG Duration 05/11/20 Assessment Summary Assessment Pt was challenged by 12 in step but was able to 10 sit to stands from it. Cueing required and CGA for reciprocal down stairs Physical Therapy Plan Frequency and Duration Frequency of Treatment 2x/Week Duration of Treatment 3 months Plan of Care Start Date 02/09/20 Plan of Care End Date 05/11/20 Next Visit Focus/Plan Next Note Type Treatment Note Next Visit Plan Continue PT to improve gait, balance, functional strength.
--- NOTE | 2020-04-20 15:14 | PT.OTN ---
Current Diagnoses Epilepsy, unspecified, not intractable, without status epilepticus (04/20/20) Difficulty in walking, not elsewhere classified (04/20/20) Weakness (04/20/20) Contusion of right elbow, initial encounter (04/20/20) Physical Therapy Treatment Note PT-OP-A Visit Information Start: 02/08/20 17:38 Freq: Status: Active Protocol: Document 04/20/20 14:32 [facility] (Rec: 04/20/20 15:14 [facility] [id number]) Out-Patient Physical Therapy Visit Information Visit Information Visit Type Treatment Note Visit Start Time 14:30 Visit Stop Time 15:11 Total Visit Minutes 41 Visit Number 15 Number of PHOTOGRAPHIC PROCESS WORKER Visits 0 PT-OP-B Current Condition Start: 02/08/20 17:38 Freq: Status: Active Protocol: Document 02/09/20 12:55 [facility] (Rec: 02/09/20 13:47 [facility] [id number]) Current Condition History of Current Condition Current Complaints balance History of Current Condition Pt reports a fall a little while ago that she hurt her elbow but her elbow feels fine now. She has not had many falls recently but reports tripping occasionally with stumbles d/t tripping on things like rugs at home. She has not been walking much. Pt reports she has done small walks. She has not been doing her prior PT and OT exercises. Pt walks about 3 [address] to the [address] some times then back. Pt wants to be able to walk to the water sometime. Pt reports being indep except washing back and hair. She brushes her hair herself now and indep with dressing. Pt helps sometimes with some easier cooking and does some cleaning. 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 She had a R ant temporal lobe resection in 10/19. Pt could walk without AD prior to surgery and was indep with ADLs. Pt has had weakness on L side since she was an infant so she has worn DAFO since then. At this time the dynamic aspect is stabilized. Pt returned home from inpatient rehab 10/31. Mom helps pt bath with bath chair. Mom helps some w/L side dressing but she is able to do indep also. Pt has selective mutism. Prior Treatments and Tests PT & OT with good gains after surgery-stopped d/t COVID Treatment Goals Patient/Caregiver Goals Walk further ~1 miles, inc balance Personal Factors Other Personal Factors That May Effect BAER occasionally, has visual Therapy/Recovery field deficit to L , no seizures since surgery, selective mutism PT-OP-C Subjective Start: 02/08/20 17:38 Freq: Status: Active Protocol: Document 04/20/20 14:32 [facility] (Rec: 04/20/20 15:14 [facility] [id number]) OP-PT Subjective Patient Comments Patient Comments Pt reports doing sitting exercises at home and sit to stands. No walks d/t weather PT-OP-D Balance Start: 02/08/20 17:38 Freq: Status: Active Protocol: Document 02/09/20 12:55 [facility] (Rec: 02/09/20 13:47 [facility] [id number]) Balance Tests Ventura Balance Test Ventura Balance Test Score 45 PT-OP-E Functional Tests Start: 02/08/20 17:38 Freq: Status: Active Protocol: Document 02/09/20 12:55 [facility] (Rec: 02/09/20 13:47 [facility] [id number]) Functional Tests 6 Minute Walk Test Distance 924ft Device Used none Comments 1 stumble catching foot 30 Second Sit to Stand Test Score 5 Comments cox cushion chair Dynamic Gait Index (DGI) Score 13 Five Times Sit to Stand Test Score 30 sec Comments cox cushion chair Functional Gait Assessment Score 13 PT-OP-G Mobility & Gait Start: 02/08/20 17:38 Freq: Status: Active Protocol: Document 02/09/20 12:55 [facility] (Rec: 02/09/20 13:47 [facility] [id number]) OP Gait Assessment Comments Gait Comments Pt amb with lat lean for clearance of LLE. Pt has dec stance time on LLE. Amb in with cane but amb around gym without. Only uses cane occ in house mosty for out of house. Amb holding hands together in front of her when not using cane PT-OP-M Strength Start: 02/08/20 17:38 Freq: Status: Active Protocol: Document 02/09/20 12:55 [facility] (Rec: 02/09/20 13:47 [facility] [id number]) Hip Strength Hip Manual Muscle Testing Right Flexion (L2) 3+ Fair+ Extension (S1) 3+ Fair+ Abduction 3+ Fair+ External Rotation 3+ Fair+ Internal Rotation 3+ Fair+ Left Flexion (L2) 3 Fair Extension (S1) 3 Fair Abduction 3+ Fair+ External Rotation 3 Fair Internal Rotation 3 Fair Knee Strength Knee Manual Muscle Testing Right Flexion (S2) 4+ Good+ Extension (L3) 4 Good Left Flexion (S2) 3+ Fair+ Extension (L3) 3+ Fair+ Ankle/Foot Strength Ankle and Foot Manual Muscle Testing Left Dorsiflexion (L4) 2- Poor- Plantarflexion (S1) 0 Zero Right Dorsiflexion (L4) 5 Normal Plantarflexion (S1) 4 Good Comments PF tested seated PT-OP-Q Treatments Start: 02/08/20 17:38 Freq: Status: Active Protocol: Document 04/20/20 14:32 [facility] (Rec: 04/20/20 15:14 [facility] [id number]) Cardio Equipment Recumbent Elliptical (Biodex) Duration (Minutes) 7 Resistance 7 Seat Position 5 Gym Equipment Shuttle Balance red clips Details bal and weight shifting Reps/Duration w/hitting balloon Comments fwd & side: WBOS & NBOS & staggered stance B Therapeutic Exercises Sitting Exercises palacios bag elevator Sitting Exercise Name for hip, knee flexion and DF Side left Equipment Used 10 palacios bags, bucket Reps/Minutes 10 Comments cueing for AROM DF DF Sitting Exercise Name in avaialbe range Side bilateral Reps/Minutes 20 Standing Exercises resist walk Standing Exercise Name fwd/back Side bilateral Equipment Used yellow tband Reps/Minutes 2x20ft ea side step Side bilateral Equipment Used yellow Reps/Minutes 2x20ft Gait Training Gait Activity wt shifts Description fwd step w/alt arm swing B arm swing Description standing in place alt Comments after 15 B added with marching with swing, then 15 B w/use of dowel fro arm swing stairs Description up/down 6 in steps reciprocally Surface no rail Distance/Duration 1x Comments 26 steps Gait Description working on arm swing for 200ft Neuro Re-Education Treatment Balance Activities balloon in the air Details SLS w/stomp & catch B tandem Comments 1. tandem stance trials 2. tandem walk w/L hand hold x50ft 3.walking line x50ft PT-OP-T Assessment and Plan Start: 02/08/20 17:38 Freq: Status: Active Protocol: Document 04/20/20 14:32 [facility] (Rec: 04/20/20 15:14 [facility] [id number]) Physical Therapy Assessment Goals 6 min walk Refrigerator Glazier Goal (LTG) Pt will be able to inc 6MWT to amb 1100ft w/o AD with no instances of foot catching to show improved ability to amb in community. LTG Duration achieved sit to stand Short Term Goal (STG) Pt will improve 5x sit to stand time to 24 sec to show improved strength and stability. STG Duration achieved Refrigerator Glazier Goal (LTG) Pt will improve 5x sit to stand time to 14 sec to show improved strength and stability. LTG Duration 05/11/20 FGA [facility] Goal (LTG) Pt will score >23/30 in order to show dec risk of falls. LTG Duration 05/11/20 Gait Deviation [facility] Goal (LTG) Pt will amb without cueing with UE at side with arm swing present 9-16-still requires cueing LTG Duration 05/11/20 DGI Impairment DGI 13/24 Short Term Goal (STG) Pt iwll improve DGI to 16/24 to show improved balance. STG Duration achieved Refrigerator Glazier Goal (LTG) Pt will be able to score at least a 20/24 to demonstrate safe dynamic gait and low fall risk. LTG Duration 05/11/20 Assessment Summary Assessment Pt did well with activities today with improvement with stair descent with less lean to rail. cueing still required with amb for relaxing arms and inc strdie length with backwards step Physical Therapy Plan Frequency and Duration Frequency of Treatment 2x/Week Duration of Treatment 3 months Plan of Care Start Date 02/09/20 Plan of Care End Date 05/11/20 Next Visit Focus/Plan Next Note Type Treatment Note Next Visit Plan Continue PT to improve gait, balance, functional strength.
--- NOTE | 2020-05-05 14:19 | PT-OP ANOTE ---
Pt's mom called re: no show but no answer and no ability to leave a message.
--- NOTE | 2020-05-12 13:44 | PT.OTN ---
Current Diagnoses Epilepsy, unspecified, not intractable, without status epilepticus (05/12/20) Difficulty in walking, not elsewhere classified (05/12/20) Weakness (05/12/20) Contusion of right elbow, initial encounter (05/12/20) Physical Therapy Treatment Note PT-OP-A Visit Information Start: 02/08/20 17:38 Freq: Status: Active Protocol: Document 05/12/20 13:01 [facility] (Rec: 05/12/20 13:44 [facility] [id number]) Out-Patient Physical Therapy Visit Information Visit Information Visit Type Progress Note Visit Start Time 13:00 Visit Stop Time 13:42 Total Visit Minutes 42 Visit Number 16 Number of TELESCOPE REPAIRER Visits 0 PT-OP-B Current Condition Start: 02/08/20 17:38 Freq: Status: Active Protocol: Document 02/09/20 12:55 [facility] (Rec: 02/09/20 13:47 [facility] [id number]) Current Condition History of Current Condition Current Complaints balance History of Current Condition Pt reports a fall a little while ago that she hurt her elbow but her elbow feels fine now. She has not had many falls recently but reports tripping occasionally with stumbles d/t tripping on things like rugs at home. She has not been walking much. Pt reports she has done small walks. She has not been doing her prior PT and OT exercises. Pt walks about 3 blocks to the [address]11 some times then back. Pt wants to be able to walk to the water sometime. Pt reports being indep except washing back and hair. She brushes her hair herself now and indep with dressing. Pt helps sometimes with some easier cooking and does some cleaning. 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 She had a R ant temporal lobe resection in 10/19. Pt could walk without AD prior to surgery and was indep with ADLs. Pt has had weakness on L side since she was an so she has worn DAFO since then. At this time the dynamic aspect is stabilized. Pt returned home from inpatient rehab 10/31. Mom helps pt bath with bath chair. Mom helps some w/L side dressing but she is able to do indep also. Pt has selective mutism. Prior Treatments and Tests PT & OT with good gains after surgery-stopped d/t COVID Treatment Goals Patient/Caregiver Goals Walk further ~1 miles, inc balance Personal Factors Other Personal Factors That May Effect BAER occasionally, has visual Therapy/Recovery field deficit to L , no seizures since surgery, selective mutism PT-OP-C Subjective Start: 02/08/20 17:38 Freq: Status: Active Protocol: Document 05/12/20 13:01 [facility] (Rec: 05/12/20 13:44 [facility] [id number]) OP-PT Subjective Patient Comments Patient Comments Mom and pt note no specific new goals PT-OP-D Balance Start: 02/08/20 17:38 Freq: Status: Active Protocol: Document 02/09/20 12:55 [facility] (Rec: 02/09/20 13:47 [facility] [id number]) Balance Tests [place] Balance Test [place]ura Balance Test Score 45 PT-OP-E Functional Tests Start: 02/08/20 17:38 Freq: Status: Active Protocol: Document 05/12/20 13:01 [facility] (Rec: 05/12/20 13:44 [facility] [id number]) Functional Tests 30 Second Sit to Stand Test Score 10 Dynamic Gait Index (DGI) Score 18/24 Five Times Sit to Stand Test Score 14sec Functional Gait Assessment Score 19/30 PT-OP-G Mobility & Gait Start: 02/08/20 17:38 Freq: Status: Active Protocol: Document 02/09/20 12:55 [facility] (Rec: 02/09/20 13:47 [facility] [id number]) OP Gait Assessment Comments Gait Comments Pt amb with lat lean for clearance of LLE. Pt has dec stance time on LLE. Amb in with cane but amb around gym without. Only uses cane occ in house mosty for out of house. Amb holding hands together in front of her when not using cane PT-OP-M Strength Start: 02/08/20 17:38 Freq: Status: Active Protocol: Document 05/12/20 13:01 [facility] (Rec: 05/12/20 13:44 [facility] [id number]) Hip Strength Hip Manual Muscle Testing Right Flexion (L2) 5 Normal Extension (S1) 3+ Fair+ Abduction 4- Good- External Rotation 5 Normal Internal Rotation 5 Normal Left Flexion (L2) 4- Good- Extension (S1) 3 Fair Abduction 4- Good- External Rotation 4- Good- Internal Rotation 4 Good Knee Strength Knee Manual Muscle Testing Right Flexion (S2) 5 Normal Extension (L3) 5 Normal Left Flexion (S2) 4 Good Extension (L3) 4 Good Ankle/Foot Strength Ankle and Foot Manual Muscle Testing Left Dorsiflexion (L4) 3- Fair- Plantarflexion (S1) 3+ Fair+ Comments PF tested in seated Right Dorsiflexion (L4) 5 Normal Plantarflexion (S1) 4+ Good+ Comments PF tested in seated PT-OP-Q Treatments Start: 02/08/20 17:38 Freq: Status: Active Protocol: Document 05/12/20 13:01 [facility] (Rec: 05/12/20 13:44 [facility] [id number]) Cardio Equipment Recumbent Stepper (Sci-Fit) Duration (Minutes) 7 Resistance 5 Seat Position 8 Other Cues for left LE alignment Therapeutic Exercises Prone Exercises ext Prone Exercise Name alt Side bilateral Reps/Minutes 2x15 Standing Exercises step up Side bilateral Equipment Used 5 in step no rail Reps/Minutes 2x5 ext Side bilateral Equipment Used yellow tband Reps/Minutes 2x15 Comments cues for knee straight & posture resist walk Standing Exercise Name fwd/back Side bilateral Equipment Used yellow tband Reps/Minutes 2x20ft ea side step Side bilateral Equipment Used yellow Reps/Minutes 2x20ft PT-OP-T Assessment and Plan Start: 02/08/20 17:38 Freq: Status: Active Protocol: Document 05/12/20 13:01 [facility] (Rec: 05/12/20 13:44 [facility] [id number]) Physical Therapy Assessment Goals strength Brand Activation Manager Goal (LTG) Pt will improve all MMT by 1 grade w/ all motions to have pt inc stength in order to allow greater ease in daily activiies LTG Duration 08/12/20 6 min walk Brand Activation Manager Goal (LTG) Pt will be able to inc 6MWT to amb 1100ft w/o AD with no instances of foot catching to show improved ability to amb in community. LTG Duration achieved sit to stand Short Term Goal (STG) Pt will improve 5x sit to stand time to 24 sec to show improved strength and stability-achieved progress goal to 05/12-Pt willb e able to do do 5x sit to stand test in under 12 sec to show improved stability & ease for transitional movements. STG Duration 07/01/20 Fdc Goal (LTG) Pt will improve 5x sit to stand time to 14 sec to show improved strength and stability. achieved 05/12-progress goal to 30 sec sit to stand test achieve 15 STS LTG Duration 08/12/20 FGA Fdc Goal (LTG) Pt will score >23/30 in order to show dec risk of falls. 05/12-improved to 19/30 LTG Duration 08/12/20 Gait Deviation Brand Activation Manager Goal (LTG) Pt will amb without cueing with UE at side with arm swing present --still requires cueing 05/12-requires cues to start but once cued does better. LTG Duration 07/11/20 DGI Impairment DGI 13 Short Term Goal (STG) Pt iwll improve DGI to to show improved balance. STG Duration achieved Fdc Goal (LTG) Pt will be able to score at least a 20/24 to demonstrate safe dynamic gait and low fall risk. 05/31- LTG Duration 08/12/20 Assessment Summary Assessment Pt is making good progress with her balance, functional ability, gait and strength. She showed imrpovement in all testing done today but does sitll show as a risk for falls d/t scoring. She would beneift from PT ot cont to work on staiblity & gait. Physical Therapy Plan Frequency and Duration Frequency of Treatment 1-2x/week Duration of Treatment 3 months Plan of Care Start Date 05/12/20 Plan of Care End Date 08/12/20 Therapeutic Interventions Therapeutic Interventions Aquatic Therapy,Balance Training,Gait Training,Home Exercise Program,Manual Therapy,Neuromuscular Re- education,Orthotic/Prosthetic Management,Patient/Caregiver Education,Self-Care/Home Management,Taping,Therapeutic Activities,Therapeutic Exercises Modalities Electric Stimulation Next Visit Focus/Plan Next Note Type Treatment Note Next Visit Plan work on gait & dynamic balance & inc activity tolerance/ stability
--- NOTE | 2020-05-12 13:44 | PT.OPPOC ---
Physical, Occupational & Speech Therapy At [facility] Current Diagnoses Epilepsy, unspecified, not intractable, without status epilepticus (05/12/20) Difficulty in walking, not elsewhere classified (05/12/20) Weakness (05/12/20) Contusion of right elbow, initial encounter (05/12/20) Visit Care Team Role Provider Type Greg Glaser DO Attending Provider Physician Family Provider Primary Care Provider Referring Provider Specialty: Family Practice Address: [address] [place] [address], [phone] Email: Plan Of Care PT-OP-T Assessment and Plan Start: 02/08/20 17:38 Freq: Status: Active Protocol: Document 05/12/20 13:01 [facility] (Rec: 05/12/20 13:44 [facility] [id number]) Physical Therapy Assessment Goals strength Hedis Coordinator Goal (LTG) Pt will improve all MMT by 1 grade w/ all motions to have pt inc stength in order to allow greater ease in daily activiies LTG Duration 08/12/20 6 min walk Custodial Goal (LTG) Pt will be able to inc 6MWT to amb 1100ft w/o AD with no instances of foot catching to show improved ability to amb in community. LTG Duration achieved sit to stand Short Term Goal (STG) Pt will improve 5x sit to stand time to 24 sec to show improved strength and stability-achieved progress goal to 05/12-Pt willb e able to do do 5x sit to stand test in under 12 sec to show improved stability & ease for transitional movements. STG Duration 07/01/20 Hedis Coordinator Goal (LTG) Pt will improve 5x sit to stand time to 14 sec to show improved strength and stability. achieved 05/12-progress goal to 30 sec sit to stand test achieve 15 STS LTG Duration 08/12/20 FGA Custodial Goal (LTG) Pt will score >23/30 in order to show dec risk of falls. 05/12-improved to 19/30 LTG Duration 08/12/20 Gait Deviation Custodial Goal (LTG) Pt will amb without cueing with UE at side with arm swing present --still requires cueing 05/12-requires cues to start but once cued does better. LTG Duration 07/11/20 DGI Impairment DGI Short Term Goal (STG) Pt iwll improve DGI to 16 to show improved balance. STG Duration achieved Custodial Goal (LTG) Pt will be able to score at least a to demonstrate safe dynamic gait and low fall risk. 05/31- LTG Duration 08/12/20 Assessment Summary Assessment Pt is making good progress with her balance, functional ability, gait and strength. She showed imrpovement in all testing done today but does sitll show as a risk for falls d/t scoring. She would beneift from PT ot cont to work on staiblity & gait. Physical Therapy Plan Frequency and Duration Frequency of Treatment 1-2x/week Duration of Treatment 3 months Plan of Care Start Date 05/12/20 Plan of Care End Date 08/12/20 Therapeutic Interventions Therapeutic Interventions Aquatic Therapy,Balance Training,Gait Training,Home Exercise Program,Manual Therapy,Neuromuscular Re- education,Orthotic/Prosthetic Management,Patient/Caregiver Education,Self-Care/Home Management,Taping,Therapeutic Activities,Therapeutic Exercises Modalities Electric Stimulation Next Visit Focus/Plan Next Note Type Treatment Note Next Visit Plan work on gait & dynamic balance & inc activity tolerance/ stability Plan of Care Dates Plan of Care Start Date 05/12/20 Plan of Care End Date 08/12/20 Electronically Signed by: Lilibeth Schroeder, PT 05/12/20 1202 Please Sign and Return: I have reviewed this Plan of Care and certify that the skilled therapy services above are required to meet the patient?s needs. Physician Signature Date Printed Name and Credentials Clinical Instructor Signature Printed Name and Credentials
--- NOTE | 2020-05-20 14:05 | PT-OP ANOTE ---
Missed Appt. Attempted to call and leave voicemail but no voicemail set up
--- NOTE | 2020-05-20 15:13 | PT.OTN ---
Current Diagnoses Epilepsy, unspecified, not intractable, without status epilepticus (05/20/20) Difficulty in walking, not elsewhere classified (05/20/20) Weakness (05/20/20) Contusion of right elbow, initial encounter (05/20/20) Physical Therapy Treatment Note PT-OP-A Visit Information Start: 02/08/20 17:38 Freq: Status: Active Protocol: Document 05/20/20 15:01 MA (Rec: 05/20/20 15:13 MA [email or web address]) Out-Patient Physical Therapy Visit Information Visit Information Visit Type Treatment Note Visit Start Time 14:25 Visit Stop Time 15:03 Total Visit Minutes 38 Visit Number 17 Number of SOFT WORK WRAPPER EXAMINER Visits 1 PT-OP-B Current Condition Start: 02/08/20 17:38 Freq: Status: Active Protocol: Document 02/09/20 12:55 LR (Rec: 02/09/20 13:47 [facility] [id number]) Current Condition History of Current Condition Current Complaints balance History of Current Condition Pt reports a fall a little while ago that she hurt her elbow but her elbow feels fine now. She has not had many falls recently but reports tripping occasionally with stumbles d/t tripping on things like rugs at home. She has not been walking much. Pt reports she has done small walks. She has not been doing her prior PT and OT exercises. Pt walks about 3 [address] [place] the [address] some times then back. Pt wants to be able to walk to the water sometime. Pt reports being indep except washing back and hair. She brushes her hair herself now and indep with dressing. Pt helps sometimes with some easier cooking and does some cleaning. 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 She had a R ant temporal lobe resection in 10/19. Pt could walk without AD prior to surgery and was indep with ADLs. Pt has had weakness on L side since she was an infant so she has worn DAFO since then. At this time the dynamic aspect is stabilized. Pt returned home from inpatient rehab 10/31. Mom helps pt bath with bath chair. Mom helps some w/L side dressing but she is able to do indep also. Pt has selective mutism. Prior Treatments and Tests PT & OT with good gains after surgery-stopped d/t COVID Treatment Goals Patient/Caregiver Goals Walk further ~1 miles, inc balance Personal Factors Other Personal Factors That May Effect BAER occasionally, has visual Therapy/Recovery field deficit to L , no seizures since surgery, selective mutism PT-OP-C Subjective Start: 02/08/20 17:38 Freq: Status: Active Protocol: Document 05/20/20 15:01 MA (Rec: 05/20/20 15:13 MA [email or web address]) OP-PT Subjective Patient Comments Patient Comments Caregiver/ pt report nothing new PT-OP-D Balance Start: 02/08/20 17:38 Freq: Status: Active Protocol: Document 02/09/20 12:55 [facility] (Rec: 02/09/20 13:47 [facility] [id number]) Balance Tests Ventura Balance Test Ventura Balance Test Score 45 PT-OP-E Functional Tests Start: 02/08/20 17:38 Freq: Status: Active Protocol: Document 05/12/20 13:01 [facility] (Rec: 05/12/20 13:44 [facility] [id number]) Functional Tests 30 Second Sit to Stand Test Score 10 Dynamic Gait Index (DGI) Score 18/24 Five Times Sit to Stand Test Score 14sec Functional Gait Assessment Score 19/30 PT-OP-G Mobility & Gait Start: 02/08/20 17:38 Freq: Status: Active Protocol: Document 02/09/20 12:55 [facility] (Rec: 02/09/20 13:47 [facility] [id number]) OP Gait Assessment Comments Gait Comments Pt amb with lat lean for clearance of LLE. Pt has dec stance time on LLE. Amb in with cane but amb around gym without. Only uses cane occ in house mosty for out of house. Amb holding hands together in front of her when not using cane PT-OP-M Strength Start: 02/08/20 17:38 Freq: Status: Active Protocol: Document 05/12/20 13:01 [facility] (Rec: 05/12/20 13:44 [facility] [id number]) Hip Strength Hip Manual Muscle Testing Right Flexion (L2) 5 Normal Extension (S1) 3+ Fair+ Abduction 4- Good- External Rotation 5 Normal Internal Rotation 5 Normal Left Flexion (L2) 4- Good- Extension (S1) 3 Fair Abduction 4- Good- External Rotation 4- Good- Internal Rotation 4 Good Knee Strength Knee Manual Muscle Testing Right Flexion (S2) 5 Normal Extension (L3) 5 Normal Left Flexion (S2) 4 Good Extension (L3) 4 Good Ankle/Foot Strength Ankle and Foot Manual Muscle Testing Left Dorsiflexion (L4) 3- Fair- Plantarflexion (S1) 3+ Fair+ Comments PF tested in seated Right Dorsiflexion (L4) 5 Normal Plantarflexion (S1) 4+ Good+ Comments PF tested in seated PT-OP-Q Treatments Start: 02/08/20 17:38 Freq: Status: Active Protocol: Document 05/20/20 15:01 MA (Rec: 05/20/20 15:13 MA [email or web address]) Cardio Equipment Recumbent Stepper (Sci-Fit) Duration (Minutes) 7 Resistance 5 Seat Position 8 Other Cues for left LE alignment Gym Equipment Shuttle Balance Blue Clips Details Tossing balloon alternating hands Reps/Duration 8 min Comments Fwd & side: WBOS & NBOS Therapeutic Exercises Standing Exercises step up Standing Exercise Name forward & side steps Side bilateral Equipment Used 5 in step w/ rail Reps/Minutes 2x10 ext Side bilateral Equipment Used yellow tband Reps/Minutes 2x10 Comments cues for knee straight & posture side step Side bilateral Equipment Used yellow Reps/Minutes 4x20ft Step Overs Side bilateral Equipment Used 5 step Reps/Minutes 20x Comments cues for no lateral lean Neuro Re-Education Treatment Balance Activities SLS Details Bilateral Surface Solid Reps/Duration 2x30 sec Comments increased lateral lean Right with SLS left PT-OP-T Assessment and Plan Start: 02/08/20 17:38 Freq: Status: Active Protocol: Document 05/20/20 15:01 MA (Rec: 05/20/20 15:13 MA [email or web address]) Physical Therapy Assessment Goals strength Certified Emergency Vehicle Technician Goal (LTG) Pt will improve all MMT by 1 grade w/ all motions to have pt inc stength in order to allow greater ease in daily activiies LTG Duration 08/12/20 6 min walk Care Home Goal (LTG) Pt will be able to inc 6MWT to amb 1100ft w/o AD with no instances of foot catching to show improved ability to amb in community. LTG Duration achieved sit to stand Short Term Goal (STG) Pt will improve 5x sit to stand time to 24 sec to show improved strength and stability-achieved progress goal to 05/12-Pt willb e able to do do 5x sit to stand test in under 12 sec to show improved stability & ease for transitional movements. STG Duration 07/01/20 Certified Emergency Vehicle Technician Goal (LTG) Pt will improve 5x sit to stand time to 14 sec to show improved strength and stability. achieved 05/12-progress goal to 30 sec sit to stand test achieve 15 STS LTG Duration 08/12/20 [facility] Certified Emergency Vehicle Technician Goal (LTG) Pt will score >23/30 in order to show dec risk of falls. 05/12-improved to 19/30 LTG Duration 08/12/20 Gait Deviation Care Home Goal (LTG) Pt will amb without cueing with UE at side with arm swing present --still requires cueing 05/12-requires cues to start but once cued does better. LTG Duration 07/11/20 DGI Impairment DGI 1324 Short Term Goal (STG) Pt iwll improve DGI to 1624 to show improved balance. STG Duration achieved Care Home Goal (LTG) Pt will be able to score at least a 20/24 to demonstrate safe dynamic gait and low fall risk. 05/31- LTG Duration 08/12/20 Assessment Summary Assessment Pt with incresaed lateral lean during SLS and side step ups. 2 rest breaks needed during session due to fatigue. Pt with good balance forward on shuttle balance, increased difficulty when facing sideways Physical Therapy Plan Frequency and Duration Frequency of Treatment 1-2x/week Duration of Treatment 3 months Plan of Care Start Date 05/12/20 Plan of Care End Date 08/12/20 Therapeutic Interventions Therapeutic Interventions Aquatic Therapy,Balance Training,Gait Training,Home Exercise Program,Manual Therapy,Neuromuscular Re- education,Orthotic/Prosthetic Management,Patient/Caregiver Education,Self-Care/Home Management,Taping,Therapeutic Activities,Therapeutic Exercises Modalities Electric Stimulation Next Visit Focus/Plan Next Note Type Treatment Note Next Visit Plan work on gait & dynamic balance & inc activity tolerance/ stability
--- NOTE | 2020-05-25 14:33 | PT.OTN ---
Current Diagnoses Epilepsy, unspecified, not intractable, without status epilepticus (05/25/20) Difficulty in walking, not elsewhere classified (05/25/20) Weakness (05/25/20) Contusion of right elbow, initial encounter (05/25/20) Physical Therapy Treatment Note PT-OP-A Visit Information Start: 02/08/20 17:38 Freq: Status: Active Protocol: Document 05/25/20 13:44 MA (Rec: 05/25/20 14:33 MA [email or web address]) Out-Patient Physical Therapy Visit Information Visit Information Visit Type Treatment Note Visit Start Time 13:43 Visit Stop Time 14:22 Total Visit Minutes 39 Visit Number 18 Number of ENDOSCOPY SUPPORT SPECIALIST Visits 2 PT-OP-B Current Condition Start: 02/08/20 17:38 Freq: Status: Active Protocol: Document 02/09/20 12:55 LR (Rec: 02/09/20 13:47 [facility] [id number]) Current Condition History of Current Condition Current Complaints balance History of Current Condition Pt reports a fall a little while ago that she hurt her elbow but her elbow feels fine now. She has not had many falls recently but reports tripping occasionally with stumbles d/t tripping on things like rugs at home. She has not been walking much. Pt reports she has done small walks. She has not been doing her prior PT and OT exercises. Pt walks about 3 blocks to the [address]11 some times then back. Pt wants to be able to walk to the water sometime. Pt reports being indep except washing back and hair. She brushes her hair herself now and indep with dressing. Pt helps sometimes with some easier cooking and does some cleaning. 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 She had a R ant temporal lobe resection in 10/19. Pt could walk without AD prior to surgery and was indep with ADLs. Pt has had weakness on L side since she was an infant so she has worn DAFO since then. At this time the dynamic aspect is stabilized. Pt returned home from inpatient rehab 10/31. Mom helps pt bath with bath chair. Mom helps some w/L side dressing but she is able to do indep also. Pt has selective mutism. Prior Treatments and Tests PT & OT with good gains after surgery-stopped d/t COVID Treatment Goals Patient/Caregiver Goals Walk further ~1 miles, inc balance Personal Factors Other Personal Factors That May Effect BAER occasionally, has visual Therapy/Recovery field deficit to L , no seizures since surgery, selective mutism PT-OP-C Subjective Start: 02/08/20 17:38 Freq: Status: Active Protocol: Document 05/25/20 13:44 MA (Rec: 05/25/20 14:33 MA [email or web address]) OP-PT Subjective Patient Comments Patient Comments Pt arrived alone to treatment today PT-OP-D Balance Start: 02/08/20 17:38 Freq: Status: Active Protocol: Document 02/09/20 12:55 [facility] (Rec: 02/09/20 13:47 [facility] [id number]) Balance Tests Ventura Balance Test Ventura Balance Test Score 45 PT-OP-E Functional Tests Start: 02/08/20 17:38 Freq: Status: Active Protocol: Document 05/12/20 13:01 [facility] (Rec: 05/12/20 13:44 [facility] [id number]) Functional Tests 30 Second Sit to Stand Test Score 10 Dynamic Gait Index (DGI) Score 18/24 Five Times Sit to Stand Test Score 14sec Functional Gait Assessment Score 19/30 PT-OP-G Mobility & Gait Start: 02/08/20 17:38 Freq: Status: Active Protocol: Document 02/09/20 12:55 [facility] (Rec: 02/09/20 13:47 [facility] [id number]) OP Gait Assessment Comments Gait Comments Pt amb with lat lean for clearance of LLE. Pt has dec stance time on LLE. Amb in with cane but amb around gym without. Only uses cane occ in house mosty for out of house. Amb holding hands together in front of her when not using cane PT-OP-M Strength Start: 02/08/20 17:38 Freq: Status: Active Protocol: Document 05/12/20 13:01 [facility] (Rec: 05/12/20 13:44 [facility] [id number]) Hip Strength Hip Manual Muscle Testing Right Flexion (L2) 5 Normal Extension (S1) 3+ Fair+ Abduction 4- Good- External Rotation 5 Normal Internal Rotation 5 Normal Left Flexion (L2) 4- Good- Extension (S1) 3 Fair Abduction 4- Good- External Rotation 4- Good- Internal Rotation 4 Good Knee Strength Knee Manual Muscle Testing Right Flexion (S2) 5 Normal Extension (L3) 5 Normal Left Flexion (S2) 4 Good Extension (L3) 4 Good Ankle/Foot Strength Ankle and Foot Manual Muscle Testing Left Dorsiflexion (L4) 3- Fair- Plantarflexion (S1) 3+ Fair+ Comments PF tested in seated Right Dorsiflexion (L4) 5 Normal Plantarflexion (S1) 4+ Good+ Comments PF tested in seated PT-OP-Q Treatments Start: 02/08/20 17:38 Freq: Status: Active Protocol: Document 05/25/20 13:44 MA (Rec: 05/25/20 14:33 MA [email or web address]) Cardio Equipment Recumbent Stepper (Sci-Fit) Duration (Minutes) 8 Resistance 4 Seat Position 8 Other Cues for left LE alignment Gym Equipment Shuttle Balance red clips Details Tossing balloon alternating hands Reps/Duration 8 min Comments Fwd & side: WBOS & NBOS Therapeutic Exercises Standing Exercises Hip Hike Side bilateral Equipment Used 6 step, mirror Reps/Minutes 2x8 Comments cues for supporting leg extension sit to stand Side bilateral Equipment Used chair Reps/Minutes 5x2 Comments 14 sec for both trials Gait Training Gait Activity hurdles Surface t-pads, dynadiscs, 6 inch box Distance/Duration 6x6 hurdles Treatment Focus dynamic gait/balance step ups/downs Device Used 6 block Distance/Duration 10x L/R Neuro Re-Education Treatment Balance Activities SLS Details Bilateral Surface green T-pad Reps/Duration 2x30 Comments increased difficulty L>R PT-OP-T Assessment and Plan Start: 02/08/20 17:38 Freq: Status: Active Protocol: Document 05/25/20 13:44 MA (Rec: 05/25/20 14:33 MA [email or web address]) Physical Therapy Assessment Goals strength Watch Crystal Molder Goal (LTG) Pt will improve all MMT by 1 grade w/ all motions to have pt inc stength in order to allow greater ease in daily activiies LTG Duration 08/12/20 6 min walk Watch Crystal Molder Goal (LTG) Pt will be able to inc 6MWT to amb 1100ft w/o AD with no instances of foot catching to show improved ability to amb in community. LTG Duration achieved sit to stand Short Term Goal (STG) Pt will improve 5x sit to stand time to 24 sec to show improved strength and stability-achieved progress goal to 05/12-Pt willb e able to do do 5x sit to stand test in under 12 sec to show improved stability & ease for transitional movements. STG Duration 07/01/20 Watch Crystal Molder Goal (LTG) Pt will improve 5x sit to stand time to 14 sec to show improved strength and stability. achieved 05/12-progress goal to 30 sec sit to stand test achieve 15 STS LTG Duration 08/12/20 FGA Halfway Goal (LTG) Pt will score >23/30 in order to show dec risk of falls. 05/12-improved to 19/30 LTG Duration 08/12/20 Gait Deviation Watch Crystal Molder Goal (LTG) Pt will amb without cueing with UE at side with arm swing present --still requires cueing 05/12-requires cues to start but once cued does better. LTG Duration 07/11/20 DGI Impairment DGI Short Term Goal (STG) Pt iwll improve DGI to to show improved balance. STG Duration achieved Watch Crystal Molder Goal (LTG) Pt will be able to score at least a 20/ to demonstrate safe dynamic gait and low fall risk. 05/31- LTG Duration 08/12/20 Assessment Summary Assessment Pt with increased difficulty on shuttle balance red clips today. Pt weaker in L hip>R hip during all exercises. Cues for keeping leg extended during hip hike in [place]. Min-Mod A for gait practice on uneven surfaces over hurdles due to pt adducting legs when stepping over. Physical Therapy Plan Frequency and Duration Frequency of Treatment 1-2x/week Duration of Treatment 3 months Plan of Care Start Date 05/12/20 Plan of Care End Date 08/12/20 Next Visit Focus/Plan Next Note Type Treatment Note Next Visit Plan work on gait & dynamic balance & inc activity tolerance/ stability
--- NOTE | 2020-06-09 13:52 | PT.OTN ---
Current Diagnoses Epilepsy, unspecified, not intractable, without status epilepticus (06/09/20) Difficulty in walking, not elsewhere classified (06/09/20) Weakness (06/09/20) Contusion of right elbow, initial encounter (06/09/20) Physical Therapy Treatment Note PT-OP-A Visit Information Start: 02/08/20 17:38 Freq: Status: Active Protocol: Document 06/09/20 13:01 [facility] (Rec: 06/09/20 13:52 [facility] [id number]) Out-Patient Physical Therapy Visit Information Visit Information Visit Type Treatment Note Visit Start Time 13:00 Visit Stop Time 13:45 Total Visit Minutes 45 Visit Number 19 Number of SAWMILL HAND Visits 0 PT-OP-B Current Condition Start: 02/08/20 17:38 Freq: Status: Active Protocol: Document 02/09/20 12:55 [facility] (Rec: 02/09/20 13:47 [facility] [id number]) Current Condition History of Current Condition Current Complaints balance History of Current Condition Pt reports a fall a little while ago that she hurt her elbow but her elbow feels fine now. She has not had many falls recently but reports tripping occasionally with stumbles d/t tripping on things like rugs at home. She has not been walking much. Pt reports she has done small walks. She has not been doing her prior PT and OT exercises. Pt walks about 3 [address] to the [place]11 some times then back. Pt wants to be able to walk to the water sometime. Pt reports being indep except washing back and hair. She brushes her hair herself now and indep with dressing. Pt helps sometimes with some easier cooking and does some cleaning. 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 She had a R ant temporal lobe resection in 10/19. Pt could walk without AD prior to surgery and was indep with ADLs. Pt has had weakness on L side since she was an infant so she has worn DAFO since then. At this time the dynamic aspect is stabilized. Pt returned home from inpatient rehab 10/31. Mom helps pt bath with bath chair. Mom helps some w/L side dressing but she is able to do indep also. Pt has selective mutism. Prior Treatments and Tests PT & OT with good gains after surgery-stopped d/t COVID Treatment Goals Patient/Caregiver Goals Walk further ~1 miles, inc balance Personal Factors Other Personal Factors That May Effect BAER occasionally, has visual Therapy/Recovery field deficit to L , no seizures since surgery, selective mutism PT-OP-C Subjective Start: 02/08/20 17:38 Freq: Status: Active Protocol: Document 06/09/20 13:01 [facility] (Rec: 06/09/20 13:52 [facility] [id number]) OP-PT Subjective Patient Comments Patient Comments Pt reports small walks. Reports she does not know where her exericse paper is. PT-OP-D Balance Start: 02/08/20 17:38 Freq: Status: Active Protocol: Document 02/09/20 12:55 [facility] (Rec: 02/09/20 13:47 [facility] [id number]) Balance Tests Ventura Balance Test Ventura Balance Test Score 45 PT-OP-E Functional Tests Start: 02/08/20 17:38 Freq: Status: Active Protocol: Document 05/12/20 13:01 [facility] (Rec: 05/12/20 13:44 [facility] [id number]) Functional Tests 30 Second Sit to Stand Test Score 10 Dynamic Gait Index (DGI) Score 18/24 Five Times Sit to Stand Test Score 14sec Functional Gait Assessment Score 19/30 PT-OP-G Mobility & Gait Start: 02/08/20 17:38 Freq: Status: Active Protocol: Document 02/09/20 12:55 [facility] (Rec: 02/09/20 13:47 [facility] [id number]) OP Gait Assessment Comments Gait Comments Pt amb with lat lean for clearance of LLE. Pt has dec stance time on LLE. Amb in with cane but amb around gym without. Only uses cane occ in house mosty for out of house. Amb holding hands together in front of her when not using cane PT-OP-M Strength Start: 02/08/20 17:38 Freq: Status: Active Protocol: Document 05/12/20 13:01 [facility] (Rec: 05/12/20 13:44 [facility] [id number]) Hip Strength Hip Manual Muscle Testing Right Flexion (L2) 5 Normal Extension (S1) 3+ Fair+ Abduction 4- Good- External Rotation 5 Normal Internal Rotation 5 Normal Left Flexion (L2) 4- Good- Extension (S1) 3 Fair Abduction 4- Good- External Rotation 4- Good- Internal Rotation 4 Good Knee Strength Knee Manual Muscle Testing Right Flexion (S2) 5 Normal Extension (L3) 5 Normal Left Flexion (S2) 4 Good Extension (L3) 4 Good Ankle/Foot Strength Ankle and Foot Manual Muscle Testing Left Dorsiflexion (L4) 3- Fair- Plantarflexion (S1) 3+ Fair+ Comments PF tested in seated Right Dorsiflexion (L4) 5 Normal Plantarflexion (S1) 4+ Good+ Comments PF tested in seated PT-OP-Q Treatments Start: 02/08/20 17:38 Freq: Status: Active Protocol: Document 06/09/20 13:01 [facility] (Rec: 06/09/20 13:52 [facility] [id number]) Cardio Equipment Recumbent Elliptical ([employer]) Duration (Minutes) 7 Resistance 6-8 Seat Position 5 Gym Equipment Shuttle Recovery Bilateral Squats Details B squats w/ball btwn knees Resistance 125#, 137# Shuttle Recovery Platform Unstable Reps/Time 2x15 cued to WB equally into B LE Shuttle Balance red clips Details Tossing balloon alternating hands Comments Fwd & side: WBOS & NBOS & staggered stance Therapeutic Exercises Supine Exercises SLR hip flexion Supine Exercise Name core cues Side bilateral Reps/Minutes 10x2 Comments cues to keep knee straight bridge Supine Exercise Name w/cueing for leg position Reps/Minutes 15 reps Comments 5 holds Sitting Exercises DF Sitting Exercise Name alt in available rage Side bilateral Reps/Minutes 20 Standing Exercises sit to stand Side bilateral Equipment Used chair Reps/Minutes 20 Gait Training Gait Activity wt shifts Description fwd step w/alt arm swing B arm swing Description standing in place alt Comments after 15 B added with marching with swing, then 15 B w/use of dowel fro arm swing Gait Description working on arm swing for 200ft Neuro Re-Education Treatment Balance Activities SLS Details Bilateral Surface green T-pad Reps/Duration mult trials Comments increased difficulty L>R tandem Comments 1. tandem stance trials B 2. tandem walk w/L hand hold 3x20ft 3.walking line 2x50ft Bosu Details standing balance PT-OP-T Assessment and Plan Start: 02/08/20 17:38 Freq: Status: Active Protocol: Document 06/09/20 13:01 [facility] (Rec: 06/09/20 13:52 [facility] [id number]) Physical Therapy Assessment Goals strength Fci Goal (LTG) Pt will improve all MMT by 1 grade w/ all motions to have pt inc stength in order to allow greater ease in daily activiies LTG Duration 08/12/20 6 min walk Fci Goal (LTG) Pt will be able to inc 6MWT to amb 1100ft w/o AD with no instances of foot catching to show improved ability to amb in community. LTG Duration achieved sit to stand Short Term Goal (STG) Pt will improve 5x sit to stand time to 24 sec to show improved strength and stability-achieved progress goal to 05/12-Pt willb e able to do do 5x sit to stand test in under 12 sec to show improved stability & ease for transitional movements. STG Duration 07/01/20 Slip Cover Estimator Goal (LTG) Pt will improve 5x sit to stand time to 14 sec to show improved strength and stability. achieved 05/12-progress goal to 30 sec sit to stand test achieve 15 STS LTG Duration 08/12/20 FGA Slip Cover Estimator Goal (LTG) Pt will score >23/30 in order to show dec risk of falls. 05/12-improved to 19/30 LTG Duration 08/12/20 Gait Deviation Slip Cover Estimator Goal (LTG) Pt will amb without cueing with UE at side with arm swing present 9--still requires cueing 05/12-requires cues to start but once cued does better. LTG Duration 07/11/20 DGI Impairment DGI 1324 Short Term Goal (STG) Pt iwll improve DGI to 16 to show improved balance. STG Duration achieved Slip Cover Estimator Goal (LTG) Pt will be able to score at least a 20/24 to demonstrate safe dynamic gait and low fall risk. 05/31- LTG Duration 08/12/20 Assessment Summary Assessment Pt did well with amb today but did require max cueing to let LUE swing. She did wellw it h balance exercises but with tandem and linew alking, she has difficulty w/ RUE IR when landing. She was able to tolerate inc resistance w/leg press. Physical Therapy Plan Frequency and Duration Frequency of Treatment 1-2x/week Duration of Treatment 3 months Plan of Care Start Date 05/12/20 Plan of Care End Date 08/12/20 Next Visit Focus/Plan Next Note Type Treatment Note Next Visit Plan work on gait & dynamic balance & inc activity tolerance/ stability; Review HEP handout
--- NOTE | 2020-06-16 13:47 | PT.OTN ---
Current Diagnoses Epilepsy, unspecified, not intractable, without status epilepticus (06/16/20) Difficulty in walking, not elsewhere classified (06/16/20) Weakness (06/16/20) Contusion of right elbow, initial encounter (06/16/20) Physical Therapy Treatment Note PT-OP-A Visit Information Start: 02/08/20 17:38 Freq: Status: Active Protocol: Document 06/16/20 13:02 [facility] (Rec: 06/16/20 13:47 [facility] [id number]) Out-Patient Physical Therapy Visit Information Visit Information Visit Type Treatment Note Visit Start Time 13:00 Visit Stop Time 13:44 Total Visit Minutes 44 Visit Number 20 Number of TOWEL HEMMER Visits 0 PT-OP-B Current Condition Start: 02/08/20 17:38 Freq: Status: Active Protocol: Document 02/09/20 12:55 [facility] (Rec: 02/09/20 13:47 [facility] [id number]) Current Condition History of Current Condition Current Complaints balance History of Current Condition Pt reports a fall a little while ago that she hurt her elbow but her elbow feels fine now. She has not had many falls recently but reports tripping occasionally with stumbles d/t tripping on things like rugs at home. She has not been walking much. Pt reports she has done small walks. She has not been doing her prior PT and OT exercises. Pt walks about 3 [address] [place] the [address] some times then back. Pt wants to be able to walk to the water sometime. Pt reports being indep except washing back and hair. She brushes her hair herself now and indep with dressing. Pt helps sometimes with some easier cooking and does some cleaning. 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 She had a R ant temporal lobe resection in 10/19. Pt could walk without AD prior to surgery and was indep with ADLs. Pt has had weakness on L side since she was an infant so she has worn DAFO since then. At this time the dynamic aspect is stabilized. Pt returned home from inpatient rehab 10/31. Mom helps pt bath with bath chair. Mom helps some w/L side dressing but she is able to do indep also. Pt has selective mutism. Prior Treatments and Tests PT & OT with good gains after surgery-stopped d/t COVID Treatment Goals Patient/Caregiver Goals Walk further ~1 miles, inc balance Personal Factors Other Personal Factors That May Effect BAER occasionally, has visual Therapy/Recovery field deficit to L , no seizures since surgery, selective mutism PT-OP-C Subjective Start: 02/08/20 17:38 Freq: Status: Active Protocol: Document 06/16/20 13:02 [facility] (Rec: 06/16/20 13:47 [facility] [id number]) OP-PT Subjective Patient Comments Patient Comments Pt reports short walks to [address]. PT-OP-D Balance Start: 02/08/20 17:38 Freq: Status: Active Protocol: Document 02/09/20 12:55 [facility] (Rec: 02/09/20 13:47 [facility] [id number]) Balance Tests Ventura Balance Test Ventura Balance Test Score 45 PT-OP-E Functional Tests Start: 02/08/20 17:38 Freq: Status: Active Protocol: Document 05/12/20 13:01 [facility] (Rec: 05/12/20 13:44 [facility] [id number]) Functional Tests 30 Second Sit to Stand Test Score 10 Dynamic Gait Index (DGI) Score 18/24 Five Times Sit to Stand Test Score 14sec Functional Gait Assessment Score 19/30 PT-OP-G Mobility & Gait Start: 02/08/20 17:38 Freq: Status: Active Protocol: Document 02/09/20 12:55 [facility] (Rec: 02/09/20 13:47 [facility] [id number]) OP Gait Assessment Comments Gait Comments Pt amb with lat lean for clearance of LLE. Pt has dec stance time on LLE. Amb in with cane but amb around gym without. Only uses cane occ in house mosty for out of house. Amb holding hands together in front of her when not using cane PT-OP-M Strength Start: 02/08/20 17:38 Freq: Status: Active Protocol: Document 05/12/20 13:01 [facility] (Rec: 05/12/20 13:44 [facility] [id number]) Hip Strength Hip Manual Muscle Testing Right Flexion (L2) 5 Normal Extension (S1) 3+ Fair+ Abduction 4- Good- External Rotation 5 Normal Internal Rotation 5 Normal Left Flexion (L2) 4- Good- Extension (S1) 3 Fair Abduction 4- Good- External Rotation 4- Good- Internal Rotation 4 Good Knee Strength Knee Manual Muscle Testing Right Flexion (S2) 5 Normal Extension (L3) 5 Normal Left Flexion (S2) 4 Good Extension (L3) 4 Good Ankle/Foot Strength Ankle and Foot Manual Muscle Testing Left Dorsiflexion (L4) 3- Fair- Plantarflexion (S1) 3+ Fair+ Comments PF tested in seated Right Dorsiflexion (L4) 5 Normal Plantarflexion (S1) 4+ Good+ Comments PF tested in seated PT-OP-Q Treatments Start: 02/08/20 17:38 Freq: Status: Active Protocol: Document 06/16/20 13:02 [facility] (Rec: 06/16/20 13:47 [facility] [id number]) Cardio Equipment Recumbent Elliptical (Yu Rong) Duration (Minutes) 7 Resistance 8 Seat Position 5 Gym Equipment Shuttle Recovery Bilateral Squats Details B squats Resistance 137# Shuttle Recovery Platform Unstable Reps/Time 2x15 cued to WB equally into B LE Shuttle Balance red clips Details Tossing balloon alternating hands Comments Fwd & side: WBOS & NBOS & staggered stance Therapeutic Exercises Supine Exercises SLR hip flexion Supine Exercise Name core cues Side bilateral Reps/Minutes 10 Comments cues to keep knee straight bridge Supine Exercise Name w/cueing for leg position Reps/Minutes 10 Comments 5 holds Sitting Exercises DF Sitting Exercise Name alt in available rage Side bilateral Reps/Minutes 20 Standing Exercises sit to stand Side bilateral Equipment Used 16 in step Reps/Minutes 15 Gait Training Gait Activity wt shifts Description fwd step w/alt arm swing B arm swing Description standing in place alt Comments after 15 B added with marching with swing, then 15 B w/use of dowel fro arm swing stairs Description up/down 6 in steps reciprocally Surface no rail Distance/Duration 1x Comments 26 steps Gait Description working on arm swing for 200ft Neuro Re-Education Treatment Balance Activities SLS Comments 1. SLS On green tpad B mult trials 2. toe taps onto 16 in step B x12 tandem Comments 1. tandem stance trials B 2. tandem walk w/L hand hold 3x20ft 3.walking line 2x50ft PT-OP-T Assessment and Plan Start: 02/08/20 17:38 Freq: Status: Active Protocol: Document 06/16/20 13:02 [facility] (Rec: 06/16/20 13:47 [facility] [id number]) Physical Therapy Assessment Goals strength Fdc Goal (LTG) Pt will improve all MMT by 1 grade w/ all motions to have pt inc stength in order to allow greater ease in daily activiies LTG Duration 08/12/20 sit to stand Short Term Goal (STG) Pt will improve 5x sit to stand time to 24 sec to show improved strength and stability-achieved progress goal to 05/12-Pt willb e able to do do 5x sit to stand test in under 12 sec to show improved stability & ease for transitional movements. STG Duration 07/01/20 Personal Attendant Goal (LTG) Pt will improve 5x sit to stand time to 14 sec to show improved strength and stability. achieved 05/12-progress goal to 30 sec sit to stand test achieve 15 STS LTG Duration 08/12/20 FGA Fdc Goal (LTG) Pt will score >23/30 in order to show dec risk of falls. 05/12-improved to 19/30 LTG Duration 08/12/20 Gait Deviation Fdc Goal (LTG) Pt will amb without cueing with UE at side with arm swing present --still requires cueing 05/12-requires cues to start but once cued does better. LTG Duration 07/11/20 DGI Impairment DGI 1324 Short Term Goal (STG) Pt iwll improve DGI to 16 to show improved balance. STG Duration achieved Fdc Goal (LTG) Pt will be able to score at least a 20/24 to demonstrate safe dynamic gait and low fall risk. 05/31- LTG Duration 08/12/20 Assessment Summary Assessment Pt did well with exercises with cueing for positioning of body during exercises. She had one major LOB in staggered stance w/facing fwd on balnce board that required max A to recover. did well with line wlaking but dififculty with tandem walking Physical Therapy Plan Frequency and Duration Frequency of Treatment 1-2x/week Duration of Treatment 3 months Plan of Care Start Date 05/12/20 Plan of Care End Date 08/12/20 Next Visit Focus/Plan Next Note Type Treatment Note Next Visit Plan work on gait & dynamic balance & inc activity tolerance/ stability; Review HEP handout
--- NOTE | 2020-06-24 14:28 | PT.OTN ---
Current Diagnoses Epilepsy, unspecified, not intractable, without status epilepticus (06/24/20) Difficulty in walking, not elsewhere classified (06/24/20) Weakness (06/24/20) Contusion of right elbow, initial encounter (06/24/20) Physical Therapy Treatment Note PT-OP-A Visit Information Start: 02/08/20 17:38 Freq: Status: Active Protocol: Document 06/24/20 14:10 MA (Rec: 06/24/20 14:28 MA [id number]) Out-Patient Physical Therapy Visit Information Visit Information Visit Type Treatment Note Visit Start Time 13:32 Visit Stop Time 14:12 Total Visit Minutes 40 Visit Number 21 Number of FINANCE ASSOCIATE Visits 1 PT-OP-B Current Condition Start: 02/08/20 17:38 Freq: Status: Active Protocol: Document 02/09/20 12:55 [facility] (Rec: 02/09/20 13:47 [facility] [id number]) Current Condition History of Current Condition Current Complaints balance History of Current Condition Pt reports a fall a little while ago that she hurt her elbow but her elbow feels fine now. She has not had many falls recently but reports tripping occasionally with stumbles d/t tripping on things like rugs at home. She has not been walking much. Pt reports she has done small walks. She has not been doing her prior PT and OT exercises. Pt walks about 3 [address] to the [address] some times then back. Pt wants to be able to walk to the water sometime. Pt reports being indep except washing back and hair. She brushes her hair herself now and indep with dressing. Pt helps sometimes with some easier cooking and does some cleaning. 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 She had a R ant temporal lobe resection in 10/19. Pt could walk without AD prior to surgery and was indep with ADLs. Pt has had weakness on L side since she was an infant so she has worn DAFO since then. At this time the dynamic aspect is stabilized. Pt returned home from inpatient rehab 10/31. Mom helps pt bath with bath chair. Mom helps some w/L side dressing but she is able to do indep also. Pt has selective mutism. Prior Treatments and Tests PT & OT with good gains after surgery-stopped d/t COVID Treatment Goals Patient/Caregiver Goals Walk further ~1 miles, inc balance Personal Factors Other Personal Factors That May Effect BAER occasionally, has visual Therapy/Recovery field deficit to L , no seizures since surgery, selective mutism PT-OP-C Subjective Start: 02/08/20 17:38 Freq: Status: Active Protocol: Document 06/24/20 14:10 MA (Rec: 06/24/20 14:28 MA [email or web address]) OP-PT Subjective Patient Comments Patient Comments Pt reports she did her HEP everyday PT-OP-D Balance Start: 02/08/20 17:38 Freq: Status: Active Protocol: Document 02/09/20 12:55 [facility] (Rec: 02/09/20 13:47 [facility] [id number]) Balance Tests Ventura Balance Test Ventura Balance Test Score 45 PT-OP-E Functional Tests Start: 02/08/20 17:38 Freq: Status: Active Protocol: Document 05/12/20 13:01 [facility] (Rec: 05/12/20 13:44 [facility] [id number]) Functional Tests 30 Second Sit to Stand Test Score 10 Dynamic Gait Index (DGI) Score 18/24 Five Times Sit to Stand Test Score 14sec Functional Gait Assessment Score 19/30 PT-OP-G Mobility & Gait Start: 02/08/20 17:38 Freq: Status: Active Protocol: Document 02/09/20 12:55 [facility] (Rec: 02/09/20 13:47 [facility] [id number]) OP Gait Assessment Comments Gait Comments Pt amb with lat lean for clearance of LLE. Pt has dec stance time on LLE. Amb in with cane but amb around gym without. Only uses cane occ in house mosty for out of house. Amb holding hands together in front of her when not using cane PT-OP-M Strength Start: 02/08/20 17:38 Freq: Status: Active Protocol: Document 05/12/20 13:01 [facility] (Rec: 05/12/20 13:44 [facility] [id number]) Hip Strength Hip Manual Muscle Testing Right Flexion (L2) 5 Normal Extension (S1) 3+ Fair+ Abduction 4- Good- External Rotation 5 Normal Internal Rotation 5 Normal Left Flexion (L2) 4- Good- Extension (S1) 3 Fair Abduction 4- Good- External Rotation 4- Good- Internal Rotation 4 Good Knee Strength Knee Manual Muscle Testing Right Flexion (S2) 5 Normal Extension (L3) 5 Normal Left Flexion (S2) 4 Good Extension (L3) 4 Good Ankle/Foot Strength Ankle and Foot Manual Muscle Testing Left Dorsiflexion (L4) 3- Fair- Plantarflexion (S1) 3+ Fair+ Comments PF tested in seated Right Dorsiflexion (L4) 5 Normal Plantarflexion (S1) 4+ Good+ Comments PF tested in seated PT-OP-Q Treatments Start: 02/08/20 17:38 Freq: Status: Active Protocol: Document 06/24/20 14:10 MA (Rec: 06/24/20 14:28 MA [email or web address]) Gym Equipment Shuttle Balance red clips Details Tossing balloon alternating hands Comments Fwd & side: WBOS & NBOS & staggered stance Therapeutic Exercises Supine Exercises SLR hip flexion Supine Exercise Name core cues Side bilateral Reps/Minutes 10 Comments cues to keep knee straight bridge Supine Exercise Name w/cueing for leg position Reps/Minutes 10 Comments 5 holds Sitting Exercises hip flexion Side bilateral Reps/Minutes x20 Comments Seated march DF Sitting Exercise Name alt in available rage Side bilateral Reps/Minutes 20 Standing Exercises Rock & Reach Standing Exercise Name staggered stance reaching for therapists hand Side bilateral Reps/Minutes x10 lyndsay step up Standing Exercise Name alternating step up with UE reach Side bilateral Equipment Used 4 step Reps/Minutes x20 marches Side bilateral Resistance none Reps/Minutes x20 Comments bringing knee up to ballet bar height sit to stand Side bilateral Equipment Used plinth Reps/Minutes 10x Gait Training Gait Activity stairs Description up/down 6 in steps reciprocally Surface no rail Distance/Duration 1x Comments 26 steps Gait Description working on arm swing for 200ft Neuro Re-Education Treatment Balance Activities tandem Details Tandem line walking PT-OP-T Assessment and Plan Start: 02/08/20 17:38 Freq: Status: Active Protocol: Document 06/24/20 14:10 MA (Rec: 06/24/20 14:28 MA [email or web address]) Physical Therapy Assessment Goals strength Custodial Goal (LTG) Pt will improve all MMT by 1 grade w/ all motions to have pt inc stength in order to allow greater ease in daily activiies LTG Duration 08/12/20 sit to stand Short Term Goal (STG) Pt will improve 5x sit to stand time to 24 sec to show improved strength and stability-achieved progress goal to 05/12-Pt willb e able to do do 5x sit to stand test in under 12 sec to show improved stability & ease for transitional movements. STG Duration 07/01/20 Floor Space Allocator Goal (LTG) Pt will improve 5x sit to stand time to 14 sec to show improved strength and stability. achieved 05/12-progress goal to 30 sec sit to stand test achieve 15 STS LTG Duration 08/12/20 FGA Custodial Goal (LTG) Pt will score >23/30 in order to show dec risk of falls. 05/12-improved to 19/30 LTG Duration 08/12/20 Gait Deviation Floor Space Allocator Goal (LTG) Pt will amb without cueing with UE at side with arm swing present --still requires cueing 05/12-requires cues to start but once cued does better. LTG Duration 07/11/20 DGI Impairment DGI 13 Short Term Goal (STG) Pt iwll improve DGI to 16 to show improved balance. STG Duration achieved Floor Space Allocator Goal (LTG) Pt will be able to score at least a 20/24 to demonstrate safe dynamic gait and low fall risk. 05/31- LTG Duration 08/12/20 Assessment Summary Assessment Pt seemed more fatigued during session today. She was able to complete HEP exercises with minor cues for LLE; LLE tends to ER during SLR and slides out during bridges. Therapist assisted cuing LLE to push into mat for bridges to keep hips level. Pt had decreased balance today needing several Mod-Max A to recover on shuttle balance due to LOB. Pt is doing better not holding hands together during therapy sessions although she continues to have decreased arm swing. Pt would benefit from continued therapy to increase arm swing, balance, and LE strength. Physical Therapy Plan Frequency and Duration Frequency of Treatment 1-2x/week Duration of Treatment 3 months Plan of Care Start Date 05/12/20 Plan of Care End Date 08/12/20 Next Visit Focus/Plan Next Note Type Treatment Note Next Visit Plan Continue reviewing HEP at the start of the session. Remind pt not to hold hands together throughout session so she can use her UEs to balance. Work on increasing arm swing, LE step height and length during gait. Shuttle balance red clips.
--- NOTE | 2020-06-29 15:11 | PT.OTN ---
Current Diagnoses Epilepsy, unspecified, not intractable, without status epilepticus (06/29/20) Difficulty in walking, not elsewhere classified (06/29/20) Weakness (06/29/20) Contusion of right elbow, initial encounter (06/29/20) Physical Therapy Treatment Note PT-OP-A Visit Information Start: 02/08/20 17:38 Freq: Status: Active Protocol: Document 06/29/20 13:54 [facility] (Rec: 06/29/20 14:27 [facility] [id number]) Out-Patient Physical Therapy Visit Information Visit Information Visit Type Treatment Note Visit Start Time 13:48 Visit Stop Time 14:28 Total Visit Minutes 40 Visit Number 22 Number of FACILITIES LOCATOR Visits 0 PT-OP-B Current Condition Start: 02/08/20 17:38 Freq: Status: Active Protocol: Document 02/09/20 12:55 [facility] (Rec: 02/09/20 13:47 [facility] [id number]) Current Condition History of Current Condition Current Complaints balance History of Current Condition Pt reports a fall a little while ago that she hurt her elbow but her elbow feels fine now. She has not had many falls recently but reports tripping occasionally with stumbles d/t tripping on things like rugs at home. She has not been walking much. Pt reports she has done small walks. She has not been doing her prior PT and OT exercises. Pt walks about 3 [address] to the [address]11 some times then back. Pt wants to be able to walk to the water sometime. Pt reports being indep except washing back and hair. She brushes her hair herself now and indep with dressing. Pt helps sometimes with some easier cooking and does some cleaning. 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 She had a R ant temporal lobe resection in 10/19. Pt could walk without AD prior to surgery and was indep with ADLs. Pt has had weakness on L side since she was an infant so she has worn DAFO since then. At this time the dynamic aspect is stabilized. Pt returned home from inpatient rehab 10/31. Mom helps pt bath with bath chair. Mom helps some w/L side dressing but she is able to do indep also. Pt has selective mutism. Prior Treatments and Tests PT & OT with good gains after surgery-stopped d/t COVID Treatment Goals Patient/Caregiver Goals Walk further ~1 miles, inc balance Personal Factors Other Personal Factors That May Effect BAER occasionally, has visual Therapy/Recovery field deficit to L , no seizures since surgery, selective mutism PT-OP-C Subjective Start: 02/08/20 17:38 Freq: Status: Active Protocol: Document 06/29/20 13:54 [facility] (Rec: 06/29/20 14:27 [facility] [id number]) OP-PT Subjective Patient Comments Patient Comments Pt reports doing one walk to [place] [email or web address] PT-OP-D Balance Start: 02/08/20 17:38 Freq: Status: Active Protocol: Document 02/09/20 12:55 [facility] (Rec: 02/09/20 13:47 [facility] [id number]) Balance Tests Ventura Balance Test Ventura Balance Test Score 45 PT-OP-E Functional Tests Start: 02/08/20 17:38 Freq: Status: Active Protocol: Document 05/12/20 13:01 [facility] (Rec: 05/12/20 13:44 [facility] [id number]) Functional Tests 30 Second Sit to Stand Test Score 10 Dynamic Gait Index (DGI) Score 18/24 Five Times Sit to Stand Test Score 14sec Functional Gait Assessment Score 19/30 PT-OP-G Mobility & Gait Start: 02/08/20 17:38 Freq: Status: Active Protocol: Document 02/09/20 12:55 [facility] (Rec: 02/09/20 13:47 [facility] [id number]) OP Gait Assessment Comments Gait Comments Pt amb with lat lean for clearance of LLE. Pt has dec stance time on LLE. Amb in with cane but amb around gym without. Only uses cane occ in house mosty for out of house. Amb holding hands together in front of her when not using cane PT-OP-M Strength Start: 02/08/20 17:38 Freq: Status: Active Protocol: Document 05/12/20 13:01 [facility] (Rec: 05/12/20 13:44 [facility] [id number]) Hip Strength Hip Manual Muscle Testing Right Flexion (L2) 5 Normal Extension (S1) 3+ Fair+ Abduction 4- Good- External Rotation 5 Normal Internal Rotation 5 Normal Left Flexion (L2) 4- Good- Extension (S1) 3 Fair Abduction 4- Good- External Rotation 4- Good- Internal Rotation 4 Good Knee Strength Knee Manual Muscle Testing Right Flexion (S2) 5 Normal Extension (L3) 5 Normal Left Flexion (S2) 4 Good Extension (L3) 4 Good Ankle/Foot Strength Ankle and Foot Manual Muscle Testing Left Dorsiflexion (L4) 3- Fair- Plantarflexion (S1) 3+ Fair+ Comments PF tested in seated Right Dorsiflexion (L4) 5 Normal Plantarflexion (S1) 4+ Good+ Comments PF tested in seated PT-OP-Q Treatments Start: 02/08/20 17:38 Freq: Status: Active Protocol: Document 06/29/20 13:54 [facility] (Rec: 06/29/20 14:27 [facility] [id number]) Cardio Equipment Recumbent Elliptical (BiodHangtime) Duration (Minutes) 7 Resistance 8 Seat Position 5 Gym Equipment Shuttle Recovery Bilateral Squats Details B squats Resistance 137# Shuttle Recovery Platform Unstable Reps/Time 2x15 cued to WB equally into B LE Shuttle Balance red clips Details Tossing balloon alternating hands Comments Fwd & side: WBOS & NBOS & staggered stance Therapeutic Exercises Supine Exercises SLR hip flexion Supine Exercise Name core cues Side bilateral Reps/Minutes 10 Comments cues to keep knee straight bridge Supine Exercise Name w/cueing for leg position Reps/Minutes 10 Comments 5 holds Sitting Exercises DF Sitting Exercise Name alt in available rage Side bilateral Reps/Minutes 20 Standing Exercises resist walk Standing Exercise Name fwd/back Side bilateral Equipment Used yellow tband Reps/Minutes 2x20ft ea side step Side bilateral Equipment Used yellow Reps/Minutes 2x20ft sit to stand Side bilateral Equipment Used 16 in step Reps/Minutes 10x Gait Training Gait Activity wt shifts Description fwd step w/alt arm swing B arm swing Description standing in place alt Comments after 15 B added with marching with swing, then 15 B w/use of dowel fro arm swing stairs Description up/down 6 in steps reciprocally Surface no rail Distance/Duration 1x Comments 26 steps Gait Description working on arm swing for 200ft Neuro Re-Education Treatment Balance Activities EC Surface blue foam Comments WBOS, NBOS, staggered stance PT-OP-T Assessment and Plan Start: 02/08/20 17:38 Freq: Status: Active Protocol: Document 06/29/20 13:54 [facility] (Rec: 06/29/20 14:27 [facility] [id number]) Physical Therapy Assessment Goals strength Care Home Goal (LTG) Pt will improve all MMT by 1 grade w/ all motions to have pt inc stength in order to allow greater ease in daily activiies LTG Duration 08/12/20 sit to stand Short Term Goal (STG) Pt will improve 5x sit to stand time to 24 sec to show improved strength and stability-achieved progress goal to 05/12-Pt willb e able to do do 5x sit to stand test in under 12 sec to show improved stability & ease for transitional movements. STG Duration 07/01/20 Laboratory Analyst Goal (LTG) Pt will improve 5x sit to stand time to 14 sec to show improved strength and stability. achieved 05/12-progress goal to 30 sec sit to stand test achieve 15 STS LTG Duration 08/12/20 FGA Care Home Goal (LTG) Pt will score >23/30 in order to show dec risk of falls. 05/12-improved to 19/30 LTG Duration 08/12/20 Gait Deviation Laboratory Analyst Goal (LTG) Pt will amb without cueing with UE at side with arm swing present --still requires cueing 05/12-requires cues to start but once cued does better. LTG Duration 07/11/20 DGI Impairment DGI 1324 Short Term Goal (STG) Pt iwll improve DGI to 16 to show improved balance. STG Duration achieved Care Home Goal (LTG) Pt will be able to score at least a 20/24 to demonstrate safe dynamic gait and low fall risk. 05/31- LTG Duration 08/12/20 Assessment Summary Assessment Pt did well with EC activities but still requires cueing qith gait for form. She did well with all exercises with improved HEP performance. Physical Therapy Plan Frequency and Duration Frequency of Treatment 1-2x/week Duration of Treatment 3 months Plan of Care Start Date 05/12/20 Plan of Care End Date 08/12/20 Next Visit Focus/Plan Next Note Type Treatment Note Next Visit Plan Continue reviewing HEP Remind pt not to hold hands together throughout session so she can use her UEs to balance. Work on increasing arm swing, LE step height and length during gait. S
--- NOTE | 2020-07-21 09:48 | PT.OTN ---
Current Diagnoses Epilepsy, unspecified, not intractable, without status epilepticus (07/21/20) Difficulty in walking, not elsewhere classified (07/21/20) Weakness (07/21/20) Contusion of right elbow, initial encounter (07/21/20) Physical Therapy Treatment Note PT-OP-A Visit Information Start: 02/08/20 17:38 Freq: Status: Active Protocol: Document 07/21/20 08:57 [facility] (Rec: 07/21/20 09:48 [facility] [id number]) Out-Patient Physical Therapy Visit Information Visit Information Visit Type Treatment Note Visit Start Time 08:59 Visit Stop Time 09:43 Total Visit Minutes 44 Visit Number 23 Number of DIRECTOR FINANCIAL PLANNING Visits 0 PT-OP-B Current Condition Start: 02/08/20 17:38 Freq: Status: Active Protocol: Document 02/09/20 12:55 [facility] (Rec: 02/09/20 13:47 [facility] [id number]) Current Condition History of Current Condition Current Complaints balance History of Current Condition Pt reports a fall a little while ago that she hurt her elbow but her elbow feels fine now. She has not had many falls recently but reports tripping occasionally with stumbles d/t tripping on things like rugs at home. She has not been walking much. Pt reports she has done small walks. She has not been doing her prior PT and OT exercises. Pt walks about 3 [address] to the [address] some times then back. Pt wants to be able to walk to the water sometime. Pt reports being indep except washing back and hair. She brushes her hair herself now and indep with dressing. Pt helps sometimes with some easier cooking and does some cleaning. 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 She had a R ant temporal lobe resection in 10/19. Pt could walk without AD prior to surgery and was indep with ADLs. Pt has had weakness on L side since she was an infant so she has worn DAFO since then. At this time the dynamic aspect is stabilized. Pt returned home from inpatient rehab 10/31. Mom helps pt bath with bath chair. Mom helps some w/L side dressing but she is able to do indep also. Pt has selective mutism. Prior Treatments and Tests PT & OT with good gains after surgery-stopped d/t COVID Treatment Goals Patient/Caregiver Goals Walk further ~1 miles, inc balance Personal Factors Other Personal Factors That May Effect BAER occasionally, has visual Therapy/Recovery field deficit to L , no seizures since surgery, selective mutism PT-OP-C Subjective Start: 02/08/20 17:38 Freq: Status: Active Protocol: Document 07/21/20 08:57 [facility] (Rec: 07/21/20 09:48 [facility] [id number]) OP-PT Subjective Patient Comments Patient Comments Pt has been doing exercises ( was able to explain exercises) . Has not walked recently PT-OP-D Balance Start: 02/08/20 17:38 Freq: Status: Active Protocol: Document 02/09/20 12:55 [facility] (Rec: 02/09/20 13:47 [facility] [id number]) Balance Tests Ventura Balance Test Ventura Balance Test Score 45 PT-OP-E Functional Tests Start: 02/08/20 17:38 Freq: Status: Active Protocol: Document 05/12/20 13:01 [facility] (Rec: 05/12/20 13:44 [facility] [id number]) Functional Tests 30 Second Sit to Stand Test Score 10 Dynamic Gait Index (DGI) Score 18/24 Five Times Sit to Stand Test Score 14sec Functional Gait Assessment Score 19/30 PT-OP-G Mobility & Gait Start: 02/08/20 17:38 Freq: Status: Active Protocol: Document 02/09/20 12:55 [facility] (Rec: 02/09/20 13:47 [facility] [id number]) OP Gait Assessment Comments Gait Comments Pt amb with lat lean for clearance of LLE. Pt has dec stance time on LLE. Amb in with cane but amb around gym without. Only uses cane occ in house mosty for out of house. Amb holding hands together in front of her when not using cane PT-OP-M Strength Start: 02/08/20 17:38 Freq: Status: Active Protocol: Document 05/12/20 13:01 [facility] (Rec: 05/12/20 13:44 [facility] [id number]) Hip Strength Hip Manual Muscle Testing Right Flexion (L2) 5 Normal Extension (S1) 3+ Fair+ Abduction 4- Good- External Rotation 5 Normal Internal Rotation 5 Normal Left Flexion (L2) 4- Good- Extension (S1) 3 Fair Abduction 4- Good- External Rotation 4- Good- Internal Rotation 4 Good Knee Strength Knee Manual Muscle Testing Right Flexion (S2) 5 Normal Extension (L3) 5 Normal Left Flexion (S2) 4 Good Extension (L3) 4 Good Ankle/Foot Strength Ankle and Foot Manual Muscle Testing Left Dorsiflexion (L4) 3- Fair- Plantarflexion (S1) 3+ Fair+ Comments PF tested in seated Right Dorsiflexion (L4) 5 Normal Plantarflexion (S1) 4+ Good+ Comments PF tested in seated PT-OP-Q Treatments Start: 02/08/20 17:38 Freq: Status: Active Protocol: Document 07/21/20 08:57 [facility] (Rec: 07/21/20 09:48 [facility] [id number]) Cardio Equipment Recumbent Stepper (Sci-Fit) Duration (Minutes) 8 Resistance 6 Seat Position 8 Other Cues for left LE alignment Gym Equipment Shuttle Balance red clips Details Tossing balloon alternating hands Comments Fwd & side: WBOS & NBOS & staggered stance Therapeutic Exercises Sitting Exercises DF Sitting Exercise Name alt in available rage Side bilateral Reps/Minutes 20 Standing Exercises resist walk Standing Exercise Name fwd/back Side bilateral Equipment Used yellow tband Reps/Minutes 2x20ft ea side step Side bilateral Equipment Used yellow Reps/Minutes 2x20ft Gait Training Gait Activity wt shifts Description fwd step w/alt arm swing B arm swing Description standing in place alt Comments after 15 B added with marching with swing, then 15 B w/use of dowel fro arm swing stairs Description up/down 6 in steps reciprocally Surface no rail Distance/Duration 1x Comments 26 steps Gait Description working on arm swing for 200ft Neuro Re-Education Treatment Balance Activities EC Comments 1. blue foam:WBOS, NBOS, staggered stance 2:fwd/back walk in mijares 50ftx2 ea hurdles Comments 1. over 6 hurdles in a row reciprocally x6 2. over 2 hurdles spread 5ft apart x8 tandem Comments 1. stance 2. tanem walk w/1 finger on rail 2x20ft 3.walk on line x50ft x2 PT-OP-T Assessment and Plan Start: 02/08/20 17:38 Freq: Status: Active Protocol: Document 07/21/20 08:57 [facility] (Rec: 07/21/20 09:48 [facility] [id number]) Physical Therapy Assessment Goals strength Dermatologist Managing Partner Goal (LTG) Pt will improve all MMT by 1 grade w/ all motions to have pt inc stength in order to allow greater ease in daily activiies LTG Duration 08/12/20 sit to stand Short Term Goal (STG) Pt will improve 5x sit to stand time to 24 sec to show improved strength and stability-achieved progress goal to 05/12-Pt willb e able to do do 5x sit to stand test in under 12 sec to show improved stability & ease for transitional movements. STG Duration 07/01/20 Dermatologist Managing Partner Goal (LTG) Pt will improve 5x sit to stand time to 14 sec to show improved strength and stability. achieved 05/12-progress goal to 30 sec sit to stand test achieve 15 STS LTG Duration 08/12/20 FGA Dermatologist Managing Partner Goal (LTG) Pt will score >23/30 in order to show dec risk of falls. 05/12-improved to 19/30 LTG Duration 08/12/20 Gait Deviation Shelter Goal (LTG) Pt will amb without cueing with UE at side with arm swing present --still requires cueing 05/12-requires cues to start but once cued does better. LTG Duration 07/11/20 DGI Impairment DGI 13/24 Short Term Goal (STG) Pt iwll improve DGI to 1624 to show improved balance. STG Duration achieved Dermatologist Managing Partner Goal (LTG) Pt will be able to score at least a 20/24 to demonstrate safe dynamic gait and low fall risk. 05/31- LTG Duration 08/12/20 Assessment Summary Assessment Pt did well with balance today . She did better with backwards walk w/band w/cueing to take bigger steps w/LLE. She is doing better with gait but still needs cueing to relax hands at sides. Physical Therapy Plan Frequency and Duration Frequency of Treatment 1-2x/week Duration of Treatment 3 months Plan of Care Start Date 05/12/20 Plan of Care End Date 08/12/20 Next Visit Focus/Plan Next Note Type Treatment Note Next Visit Plan Continue reviewing HEP Remind pt not to hold hands together throughout session so she can use her UEs to balance. Work on increasing arm swing, LE step height and length during gait. S
--- NOTE | 2020-07-25 09:50 | PT.OTN ---
Current Diagnoses Epilepsy, unspecified, not intractable, without status epilepticus (07/25/20) Difficulty in walking, not elsewhere classified (07/25/20) Weakness (07/25/20) Contusion of right elbow, initial encounter (07/25/20) Physical Therapy Treatment Note PT-OP-A Visit Information Start: 02/08/20 17:38 Freq: Status: Active Protocol: Document 07/25/20 09:07 [facility] (Rec: 07/25/20 09:50 [facility] [id number]) Out-Patient Physical Therapy Visit Information Visit Information Visit Type Treatment Note Visit Start Time 09:02 Visit Stop Time 09:43 Total Visit Minutes 41 Visit Number 24 Number of POKER PROP PLAYER Visits 0 PT-OP-B Current Condition Start: 02/08/20 17:38 Freq: Status: Active Protocol: Document 02/09/20 12:55 [facility] (Rec: 02/09/20 13:47 [facility] [id number]) Current Condition History of Current Condition Current Complaints balance History of Current Condition Pt reports a fall a little while ago that she hurt her elbow but her elbow feels fine now. She has not had many falls recently but reports tripping occasionally with stumbles d/t tripping on things like rugs at home. She has not been walking much. Pt reports she has done small walks. She has not been doing her prior PT and OT exercises. Pt walks about 3 [address] to the [address] some times then back. Pt wants to be able to walk to the water sometime. Pt reports being indep except washing back and hair. She brushes her hair herself now and indep with dressing. Pt helps sometimes with some easier cooking and does some cleaning. 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 She had a R ant temporal lobe resection in 10/19. Pt could walk without AD prior to surgery and was indep with ADLs. Pt has had weakness on L side since she was an infant so she has worn DAFO since then. At this time the dynamic aspect is stabilized. Pt returned home from inpatient rehab 10/31. Mom helps pt bath with bath chair. Mom helps some w/L side dressing but she is able to do indep also. Pt has selective mutism. Prior Treatments and Tests PT & OT with good gains after surgery-stopped d/t COVID Treatment Goals Patient/Caregiver Goals Walk further ~1 miles, inc balance Personal Factors Other Personal Factors That May Effect BAER occasionally, has visual Therapy/Recovery field deficit to L , no seizures since surgery, selective mutism PT-OP-C Subjective Start: 02/08/20 17:38 Freq: Status: Active Protocol: Document 07/25/20 09:07 [facility] (Rec: 07/25/20 09:50 [facility] [id number]) OP-PT Subjective Patient Comments Patient Comments Pt reports walking to [place] from her house and got a ride home PT-OP-D Balance Start: 02/08/20 17:38 Freq: Status: Active Protocol: Document 02/09/20 12:55 [facility] (Rec: 02/09/20 13:47 [facility] [id number]) Balance Tests Ventura Balance Test Ventura Balance Test Score 45 PT-OP-E Functional Tests Start: 02/08/20 17:38 Freq: Status: Active Protocol: Document 05/12/20 13:01 [facility] (Rec: 05/12/20 13:44 [facility] [id number]) Functional Tests 30 Second Sit to Stand Test Score 10 Dynamic Gait Index (DGI) Score 18/24 Five Times Sit to Stand Test Score 14sec Functional Gait Assessment Score 19/30 PT-OP-G Mobility & Gait Start: 02/08/20 17:38 Freq: Status: Active Protocol: Document 02/09/20 12:55 [facility] (Rec: 02/09/20 13:47 [facility] [id number]) OP Gait Assessment Comments Gait Comments Pt amb with lat lean for clearance of LLE. Pt has dec stance time on LLE. Amb in with cane but amb around gym without. Only uses cane occ in house mosty for out of house. Amb holding hands together in front of her when not using cane PT-OP-M Strength Start: 02/08/20 17:38 Freq: Status: Active Protocol: Document 05/12/20 13:01 [facility] (Rec: 05/12/20 13:44 [facility] [id number]) Hip Strength Hip Manual Muscle Testing Right Flexion (L2) 5 Normal Extension (S1) 3+ Fair+ Abduction 4- Good- External Rotation 5 Normal Internal Rotation 5 Normal Left Flexion (L2) 4- Good- Extension (S1) 3 Fair Abduction 4- Good- External Rotation 4- Good- Internal Rotation 4 Good Knee Strength Knee Manual Muscle Testing Right Flexion (S2) 5 Normal Extension (L3) 5 Normal Left Flexion (S2) 4 Good Extension (L3) 4 Good Ankle/Foot Strength Ankle and Foot Manual Muscle Testing Left Dorsiflexion (L4) 3- Fair- Plantarflexion (S1) 3+ Fair+ Comments PF tested in seated Right Dorsiflexion (L4) 5 Normal Plantarflexion (S1) 4+ Good+ Comments PF tested in seated PT-OP-Q Treatments Start: 02/08/20 17:38 Freq: Status: Active Protocol: Document 07/25/20 09:07 [facility] (Rec: 07/25/20 09:50 [facility] [id number]) Cardio Equipment Recumbent Elliptical (Biodex) Duration (Minutes) 8 Resistance 7-8 Seat Position 5 Gym Equipment Shuttle Balance red clips Details Tossing balloon alternating hands Comments Fwd & side: WBOS & NBOS & staggered stance Therapeutic Exercises Standing Exercises stretch Standing Exercise Name jt Side bilateral Reps/Minutes 1min resist walk Standing Exercise Name fwd/back Side bilateral Equipment Used yellow tband Reps/Minutes 2x20ft ea side step Side bilateral Equipment Used yellow Reps/Minutes 2x20ft sit to stand Side bilateral Equipment Used 12 in step Reps/Minutes 10x Gait Training Gait Activity wt shifts Description fwd step w/alt arm swing B arm swing Description standing in place alt Comments after 15 B added with marching with swing, then 15 B w/use of dowel fro arm swing stairs Description up/down 6 in steps reciprocally Surface no rail Distance/Duration 1x Comments 26 steps Gait Description working on arm swing for 200ft Neuro Re-Education Treatment Balance Activities EC Comments 1. blue foam:WBOS, NBOS, staggered stance 2:fwd/back walk in mijares 50ftx2 ea hurdles Comments 1. over 6 hurdles in a row reciprocally x6 2. over 2 hurdles spread 5ft apart x8 balance board Details fwd/back wt shifts tandem Comments 1. stance 2. tanem walk w/1 finger on rail 2x20ft 3.walk on line x50ft x2 PT-OP-T Assessment and Plan Start: 02/08/20 17:38 Freq: Status: Active Protocol: Document 07/25/20 09:07 [facility] (Rec: 07/25/20 09:50 [facility] [id number]) Physical Therapy Assessment Goals strength Jet Pilot Goal (LTG) Pt will improve all MMT by 1 grade w/ all motions to have pt inc stength in order to allow greater ease in daily activiies LTG Duration 08/12/20 sit to stand Short Term Goal (STG) Pt will improve 5x sit to stand time to 24 sec to show improved strength and stability-achieved progress goal to 05/12-Pt willb e able to do do 5x sit to stand test in under 12 sec to show improved stability & ease for transitional movements. STG Duration 07/01/20 [facility] Goal (LTG) Pt will improve 5x sit to stand time to 14 sec to show improved strength and stability. achieved 05/12-progress goal to 30 sec sit to stand test achieve 15 STS LTG Duration 08/12/20 FGA Jet Pilot Goal (LTG) Pt will score >23/30 in order to show dec risk of falls. 05/12-improved to 19/30 LTG Duration 08/12/20 Gait Deviation [facility]cf Goal (LTG) Pt will amb without cueing with UE at side with arm swing present --still requires cueing 05/12-requires cues to start but once cued does better. LTG Duration 07/11/20 DGI Impairment DGI 13/24 Short Term Goal (STG) Pt iwll improve DGI to 16/24 to show improved balance. STG Duration achieved [facility]cf Goal (LTG) Pt will be able to score at least a 20/24 to demonstrate safe dynamic gait and low fall risk. 05/31- LTG Duration 08/12/20 Assessment Summary Assessment Pt required less cueing during session to keep hands relaxed at sides vs held in front of her. Improved stair climbing ability shown today with improved balance. Improved line walking w/less cueing needed to avoid IR of RLE Physical Therapy Plan Frequency and Duration Frequency of Treatment 1-2x/week Duration of Treatment 3 months Plan of Care Start Date 05/12/20 Plan of Care End Date 08/12/20 Next Visit Focus/Plan Next Note Type Treatment Note Next Visit Plan Remind pt not to hold hands together throughout session so she can use her UEs to improve gait. Work on increasing arm swing, LE step height and length during gait. Work on overall dynamic balance & gait
--- NOTE | 2020-07-28 14:47 | PT-OP ANOTE ---
Pt called re: no show and message left re: next scheduled appt.
--- NOTE | 2020-08-11 14:20 | PT-OP ANOTE ---
Pt's mom was called re: no show and had forgotten appt. Reminded of next scheduled one and encouraged pt to pecan picker schedule
--- NOTE | 2020-08-25 14:17 | PT-OP ANOTE ---
Pt no showed appt. Message left at home number. Cancelled last remaining appointment and pt left message re: calling to schedule any further PT.
--- NOTE | 2020-09-21 17:54 | PT.OTN ---
Current Diagnoses Epilepsy, unspecified, not intractable, without status epilepticus (09/21/20) Difficulty in walking, not elsewhere classified (09/21/20) Weakness (09/21/20) Contusion of right elbow, initial encounter (09/21/20) Physical Therapy Treatment Note PT-OP-A Visit Information Start: 02/08/20 17:38 Freq: Status: Active Protocol: Document 09/21/20 16:51 [facility] (Rec: 09/21/20 17:53 [facility] [id number]) Out-Patient Physical Therapy Visit Information Visit Information Visit Type Progress Note Visit Start Time 16:50 Visit Stop Time 17:34 Total Visit Minutes 44 Visit Number 25 Number of TEAM PHYSICIAN Visits 0 PT-OP-B Current Condition Start: 02/08/20 17:38 Freq: Status: Active Protocol: Document 02/09/20 12:55 [facility] (Rec: 02/09/20 13:47 [facility] [id number]) Current Condition History of Current Condition Current Complaints balance History of Current Condition Pt reports a fall a little while ago that she hurt her elbow but her elbow feels fine now. She has not had many falls recently but reports tripping occasionally with stumbles d/t tripping on things like rugs at home. She has not been walking much. Pt reports she has done small walks. She has not been doing her prior PT and OT exercises. Pt walks about 3 [address] to the [address] some times then back. Pt wants to be able to walk to the water sometime. Pt reports being indep except washing back and hair. She brushes her hair herself now and indep with dressing. Pt helps sometimes with some easier cooking and does some cleaning. 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 She had a R ant temporal lobe resection in 10/19. Pt could walk without AD prior to surgery and was indep with ADLs. Pt has had weakness on L side since she was an so she has worn DAFO since then. At this time the dynamic aspect is stabilized. Pt returned home from inpatient rehab 10/31. Mom helps pt bath with bath chair. Mom helps some w/L side dressing but she is able to do indep also. Pt has selective mutism. Prior Treatments and Tests PT & OT with good gains after surgery-stopped d/t COVID Treatment Goals Patient/Caregiver Goals Walk further ~1 miles, inc balance Personal Factors Other Personal Factors That May Effect BEAR occasionally, has visual Therapy/Recovery field deficit to L , no seizures since surgery, selective mutism PT-OP-C Subjective Start: 02/08/20 17:38 Freq: Status: Active Protocol: Document 09/21/20 16:51 [facility] (Rec: 09/21/20 17:53 [facility] [id number]) OP-PT Subjective Patient Comments Patient Comments Pt reports she has been doing exercises at gymnastics and says she has been diong her sit<>stand exercises but doesn 't know where her exercise paper is. PT-OP-D Balance Start: 02/08/20 17:38 Freq: Status: Active Protocol: Document 02/09/20 12:55 [facility] (Rec: 02/09/20 13:47 [facility] [id number]) Balance Tests [place]ura Balance Test [place]ura Balance Test Score 45 PT-OP-E Functional Tests Start: 02/08/20 17:38 Freq: Status: Active Protocol: Document 09/21/20 16:51 [facility] (Rec: 09/21/20 17:53 [facility] [id number]) Functional Tests 30 Second Sit to Stand Test Score 11 Dynamic Gait Index (DGI) Score 21 Five Times Sit to Stand Test Score 12 sec Functional Gait Assessment Score 17/30 Timed Up and Go (TUG) Score 12 sec PT-OP-G Mobility & Gait Start: 02/08/20 17:38 Freq: Status: Active Protocol: Document 02/09/20 12:55 [facility] (Rec: 02/09/20 13:47 [facility] [id number]) OP Gait Assessment Comments Gait Comments Pt amb with lat lean for clearance of LLE. Pt has dec stance time on LLE. Amb in with cane but amb around gym without. Only uses cane occ in house mosty for out of house. Amb holding hands together in front of her when not using cane PT-OP-M Strength Start: 02/08/20 17:38 Freq: Status: Active Protocol: Document 09/21/20 16:51 [facility] (Rec: 09/21/20 17:53 [facility] [id number]) Hip Strength Hip Manual Muscle Testing Right Flexion (L2) 5 Normal Extension (S1) 3+ Fair+ Abduction 4 Good Adduction 5 Normal External Rotation 4 Good Internal Rotation 4 Good Left Flexion (L2) 4- Good- Extension (S1) 3+ Fair+ Abduction 4- Good- Adduction 2+ Poor+ External Rotation 3+ Fair+ Internal Rotation 4 Good Knee Strength Knee Manual Muscle Testing Right Flexion (S2) 5 Normal Extension (L3) 5 Normal Left Flexion (S2) 4 Good Extension (L3) 4 Good Ankle/Foot Strength Ankle and Foot Manual Muscle Testing Left Dorsiflexion (L4) 2+ Poor+ Plantarflexion (S1) 3+ Fair+ Comments PF tested in seated Right Dorsiflexion (L4) 5 Normal Plantarflexion (S1) 5 Normal Comments PF tested in seated PT-OP-Q Treatments Start: 02/08/20 17:38 Freq: Status: Active Protocol: Document 09/21/20 16:51 [facility] (Rec: 09/21/20 17:53 [facility] [id number]) Therapeutic Exercises Supine Exercises SLR hip flexion Supine Exercise Name core cues Side bilateral Reps/Minutes 10 Comments cues to keep knee straight bridge Supine Exercise Name w/cueing for leg position Reps/Minutes 10 Comments 5 holds Sitting Exercises DF Sitting Exercise Name alt in available rage Side bilateral Reps/Minutes 20 Standing Exercises side step Side bilateral Equipment Used yellow Reps/Minutes 2x20ft Neuro Re-Education Treatment Balance Activities Bosu Details step ups B x10 w/rail 1 hand PT-OP-T Assessment and Plan Start: 02/08/20 17:38 Freq: Status: Active Protocol: Document 09/21/20 16:51 [facility] (Rec: 09/21/20 17:53 [facility] [id number]) Physical Therapy Assessment Goals strength Fpc Goal (LTG) Pt will improve all MMT by 1 grade w/ all motions to have pt inc stength in order to allow greater ease in daily activiies 09/21-slowly improving or about same since last check LTG Duration 11/21/20 sit to stand Short Term Goal (STG) Pt will improve 5x sit to stand time to 24 sec to show improved strength and stability-achieved progress goal to 05/12-Pt willb e able to do do 5x sit to stand test in under 12 sec to show improved stability & ease for transitional movements. 09/15-improved to 12 sec clsoe to goal STG Duration 10/22/20 Fpc Goal (LTG) Pt will improve 5x sit to stand time to 14 sec to show improved strength and stability. achieved 05/12-progress goal to 30 sec sit to stand test achieve 15 STS 09/21-11 STS LTG Duration 11/21/20 FGA Fpc Goal (LTG) Pt will score >23/30 in order to show dec risk of falls. 05/12-improved to /30 09/21-dec to LTG Duration 11/21/20 Gait Deviation Fpc Goal (LTG) Pt will amb without cueing with UE at side with arm swing present --still requires cueing 05/12-requires cues to start but once cued does better. 09/21 does 25% of time w/o cueing but otherwise require cues LTG Duration 11/21/20 DGI Impairment DGI Short Term Goal (STG) Pt iwll improve DGI to 16 to show improved balance. STG Duration achieved [employer] Goal (LTG) Pt will be able to score at least a 20/24 to demonstrate safe dynamic gait and low fall risk. 05/31- LTG Duration achieved Assessment Summary Assessment Pt has overall made excellent progress towards goals and imrpoved with balance and strength. She has been walking 2x/week with her friend and doing sit to stands which likely help to show imrpovement along w/therapy through winter despite recent break d/t home issues. She still has dec balance and overall strength/activity tolerance and would bneeit from cont PT to work on these deficits. Physical Therapy Plan Frequency and Duration Frequency of Treatment 1-2x/week Duration of Treatment 2 months Plan of Care Start Date 09/21/20 Plan of Care End Date 11/21/20 Therapeutic Interventions Therapeutic Interventions Aquatic Therapy,Balance Training,Gait Training,Home Exercise Program,Manual Therapy,Neuromuscular Re- education,Orthotic/Prosthetic Management,Patient/Caregiver Education,Self-Care/Home Management,Taping,Therapeutic Activities,Therapeutic Exercises Modalities Electric Stimulation Next Visit Focus/Plan Next Note Type Treatment Note Next Visit Plan Remind pt not to hold hands together throughout session so she can use her UEs to improve gait. Work on increasing arm swing, LE step height and length during gait. Work on overall dynamic balance & gait
--- NOTE | 2020-09-21 17:55 | PT.OPPOC ---
Physical, Occupational & Speech Therapy At [facility] Current Diagnoses Epilepsy, unspecified, not intractable, without status epilepticus (09/21/20) Difficulty in walking, not elsewhere classified (09/21/20) Weakness (09/21/20) Contusion of right elbow, initial encounter (09/21/20) Visit Care Team Role Provider Type Greg Glaser DO Attending Provider Physician Family Provider Primary Care Provider Referring Provider Specialty: Family Practice Address: [address] [place] [address], [id number] Email: Plan Of Care PT-OP-T Assessment and Plan Start: 02/08/20 17:38 Freq: Status: Active Protocol: Document 09/21/20 16:51 [facility] (Rec: 09/21/20 17:53 [facility] [id number]) Physical Therapy Assessment Goals strength Scientific Manager Goal (LTG) Pt will improve all MMT by 1 grade w/ all motions to have pt inc stength in order to allow greater ease in daily activiies 09/21-slowly improving or about same since last check LTG Duration 11/21/20 sit to stand Short Term Goal (STG) Pt will improve 5x sit to stand time to 24 sec to show improved strength and stability-achieved progress goal to 05/12-Pt willb e able to do do 5x sit to stand test in under 12 sec to show improved stability & ease for transitional movements. 09/15-improved to 12 sec clsoe to goal STG Duration 10/22/20 Assisted Goal (LTG) Pt will improve 5x sit to stand time to 14 sec to show improved strength and stability. achieved 05/12-progress goal to 30 sec sit to stand test achieve 15 STS 09/21-11 STS LTG Duration 11/21/20 FGA Scientific Manager Goal (LTG) Pt will score >23/30 in order to show dec risk of falls. 05/12-improved to 19/30 09/21-dec to LTG Duration 11/21/20 Gait Deviation Assisted Goal (LTG) Pt will amb without cueing with UE at side with arm swing present --still requires cueing 05/12-requires cues to start but once cued does better. 09/21 does 25% of time w/o cueing but otherwise require cues LTG Duration 11/21/20 DGI Impairment DGI Short Term Goal (STG) Pt iwll improve DGI to to show improved balance. STG Duration achieved Assisted Goal (LTG) Pt will be able to score at least a to demonstrate safe dynamic gait and low fall risk. 05/31- LTG Duration achieved Assessment Summary Assessment Pt has overall made excellent progress towards goals and imrpoved with balance and strength. She has been walking 2x/week with her friend and doing sit to stands which likely help to show imrpovement along w/therapy through winter despite recent break d/t home issues. She still has dec balance and overall strength/activity tolerance and would bneeit from cont PT to work on these deficits. Physical Therapy Plan Frequency and Duration Frequency of Treatment 1-2x/week Duration of Treatment 2 months Plan of Care Start Date 09/21/20 Plan of Care End Date 11/21/20 Therapeutic Interventions Therapeutic Interventions Aquatic Therapy,Balance Training,Gait Training,Home Exercise Program,Manual Therapy,Neuromuscular Re- education,Orthotic/Prosthetic Management,Patient/Caregiver Education,Self-Care/Home Management,Taping,Therapeutic Activities,Therapeutic Exercises Modalities Electric Stimulation Next Visit Focus/Plan Next Note Type Treatment Note Next Visit Plan Remind pt not to hold hands together throughout session so she can use her UEs to improve gait. Work on increasing arm swing, LE step height and length during gait. Work on overall dynamic balance & gait Plan of Care Dates Plan of Care Start Date 09/21/20 Plan of Care End Date 11/21/20 Electronically Signed by: Lilibeth Schroeder, PT 09/21/20 [id number] Please Sign and Return: I have reviewed this Plan of Care and certify that the skilled therapy services above are required to meet the patient?s needs. Physician Signature Date Printed Name and Credentials Clinical Instructor Signature Printed Name and Credentials
--- NOTE | 2020-09-30 16:15 | PT.OTN ---
Current Diagnoses Epilepsy, unspecified, not intractable, without status epilepticus (09/30/20) Difficulty in walking, not elsewhere classified (09/30/20) Weakness (09/30/20) Contusion of right elbow, initial encounter (09/30/20) Physical Therapy Treatment Note PT-OP-A Visit Information Start: 02/08/20 17:38 Freq: Status: Active Protocol: Document 09/30/20 15:19 [facility] (Rec: 09/30/20 16:15 MA [id number]) Out-Patient Physical Therapy Visit Information Visit Information Visit Type Treatment Note Visit Start Time 15:15 Visit Stop Time 16:00 Total Visit Minutes 45 Visit Number 26 Number of BLOCKER METAL BASE Visits 1 Precautions Precautions seizures PT-OP-B Current Condition Start: 02/08/20 17:38 Freq: Status: Active Protocol: Document 02/09/20 12:55 [facility] (Rec: 02/09/20 13:47 [facility] [id number]) Current Condition History of Current Condition Current Complaints balance History of Current Condition Pt reports a fall a little while ago that she hurt her elbow but her elbow feels fine now. She has not had many falls recently but reports tripping occasionally with stumbles d/t tripping on things like rugs at home. She has not been walking much. Pt reports she has done small walks. She has not been doing her prior PT and OT exercises. Pt walks about 3 blocks to the [address]11 some times then back. Pt wants to be able to walk to the water sometime. Pt reports being indep except washing back and hair. She brushes her hair herself now and indep with dressing. Pt helps sometimes with some easier cooking and does some cleaning. 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 She had a R ant temporal lobe resection in 10/19. Pt could walk without AD prior to surgery and was indep with ADLs. Pt has had weakness on L side since she was an so she has worn DAFO since then. At this time the dynamic aspect is stabilized. Pt returned home from inpatient rehab 10/31. Mom helps pt bath with bath chair. Mom helps some w/L side dressing but she is able to do indep also. Pt has selective mutism. Prior Treatments and Tests PT & OT with good gains after surgery-stopped d/t COVID Treatment Goals Patient/Caregiver Goals Walk further ~1 miles, inc balance Personal Factors Other Personal Factors That May Effect BAER occasionally, has visual Therapy/Recovery field deficit to L , no seizures since surgery, selective mutism PT-OP-C Subjective Start: 02/08/20 17:38 Freq: Status: Active Protocol: Document 09/30/20 15:19 MA (Rec: 09/30/20 16:15 MA [id number]) OP-PT Subjective Patient Comments Patient Comments Pt had gymnastics once this week. She does the balance beam and hangs from the bars. She was dropped off by her grandparents today. PT-OP-D Balance Start: 02/08/20 17:38 Freq: Status: Active Protocol: Document 02/09/20 12:55 [facility] (Rec: 02/09/20 13:47 [facility] [id number]) Balance Tests Ventura Balance Test Ventura Balance Test Score 45 PT-OP-E Functional Tests Start: 02/08/20 17:38 Freq: Status: Active Protocol: Document 09/21/20 16:51 LR (Rec: 09/21/20 17:53 [facility] [id number]) Functional Tests 30 Second Sit to Stand Test Score 11 Dynamic Gait Index (DGI) Score 21 Five Times Sit to Stand Test Score 12 sec Functional Gait Assessment Score 17/30 Timed Up and Go (TUG) Score 12 sec PT-OP-G Mobility & Gait Start: 02/08/20 17:38 Freq: Status: Active Protocol: Document 02/09/20 12:55 [facility] (Rec: 02/09/20 13:47 [facility] [id number]) OP Gait Assessment Comments Gait Comments Pt amb with lat lean for clearance of LLE. Pt has dec stance time on LLE. Amb in with cane but amb around gym without. Only uses cane occ in house mosty for out of house. Amb holding hands together in front of her when not using cane PT-OP-M Strength Start: 02/08/20 17:38 Freq: Status: Active Protocol: Document 09/21/20 16:51 [facility] (Rec: 09/21/20 17:53 [facility] [id number]) Hip Strength Hip Manual Muscle Testing Right Flexion (L2) 5 Normal Extension (S1) 3+ Fair+ Abduction 4 Good Adduction 5 Normal External Rotation 4 Good Internal Rotation 4 Good Left Flexion (L2) 4- Good- Extension (S1) 3+ Fair+ Abduction 4- Good- Adduction 2+ Poor+ External Rotation 3+ Fair+ Internal Rotation 4 Good Knee Strength Knee Manual Muscle Testing Right Flexion (S2) 5 Normal Extension (L3) 5 Normal Left Flexion (S2) 4 Good Extension (L3) 4 Good Ankle/Foot Strength Ankle and Foot Manual Muscle Testing Left Dorsiflexion (L4) 2+ Poor+ Plantarflexion (S1) 3+ Fair+ Comments PF tested in seated Right Dorsiflexion (L4) 5 Normal Plantarflexion (S1) 5 Normal Comments PF tested in seated PT-OP-Q Treatments Start: 02/08/20 17:38 Freq: Status: Active Protocol: Document 09/30/20 15:19 MA (Rec: 09/30/20 16:15 MA [id number]) Cardio Equipment Recumbent Elliptical (Phase Holographic Imaging) Duration (Minutes) 8 Resistance 7 Seat Position 5 Gym Equipment Shuttle Balance red clips Details Tossing balloon alternating hands Comments Fwd: WBOS & NBOS & staggered stance Therapeutic Exercises Supine Exercises SLR hip flexion Supine Exercise Name core cues Side bilateral Reps/Minutes 10 Comments cues to keep knee straight bridge Supine Exercise Name w/cueing for leg position Reps/Minutes 2x5 Comments 5 holds Sitting Exercises Piriformis Stretch Side bilateral Reps/Minutes 60 DF Sitting Exercise Name alt in available rage Side bilateral Reps/Minutes 20 Comments Needs assist keeping L heel down Standing Exercises Step ups Standing Exercise Name fwd & lateral steps Side bilateral Equipment Used 8 Reps/Minutes x8 Comments reaching one arm up as she steps fwd sit to stand Side bilateral Equipment Used Chair Reps/Minutes 10x Gait Training Gait Activity arm swing Description walking fwd with exaggerated arm swings Comments heavy cues for swinging arms Self-Care/Home Management Treatment Education Patient Education Home Exercise Program Caregiver Education Gave pt print out of HEP exercises and reviewed exercises with grandparents PT-OP-T Assessment and Plan Start: 02/08/20 17:38 Freq: Status: Active Protocol: Document 09/30/20 15:19 MA (Rec: 09/30/20 16:15 MA [id number]) Physical Therapy Assessment Goals strength Senior Care Goal (LTG) Pt will improve all MMT by 1 grade w/ all motions to have pt inc stength in order to allow greater ease in daily activiies 09/21-slowly improving or about same since last check LTG Duration 11/21/20 sit to stand Short Term Goal (STG) Pt will improve 5x sit to stand time to 24 sec to show improved strength and stability-achieved progress goal to 05/12-Pt willb e able to do do 5x sit to stand test in under 12 sec to show improved stability & ease for transitional movements. 09/15-improved to 12 sec clsoe to goal STG Duration 10/22/20 Pharmacy Specialist Goal (LTG) Pt will improve 5x sit to stand time to 14 sec to show improved strength and stability. achieved 05/12-progress goal to 30 sec sit to stand test achieve 15 STS 09/21-11 STS LTG Duration 11/21/20 FGA Senior Care Goal (LTG) Pt will score >23/30 in order to show dec risk of falls. 05/12-improved to /30 09/21-dec to LTG Duration 11/21/20 Gait Deviation Pharmacy Specialist Goal (LTG) Pt will amb without cueing with UE at side with arm swing present --still requires cueing 05/12-requires cues to start but once cued does better. 09/21 does 25% of time w/o cueing but otherwise require cues LTG Duration 11/21/20 DGI Impairment DGI 1324 Short Term Goal (STG) Pt iwll improve DGI to 16 to show improved balance. STG Duration achieved Pharmacy Specialist Goal (LTG) Pt will be able to score at least a 20/24 to demonstrate safe dynamic gait and low fall risk. 05/31- LTG Duration achieved Assessment Summary Assessment Reviewed HEP exercises with both pt and grandparents when they picked her up. Pt needed cues for LLE placement throughout HEP exercises. Worked on pt moving UEs more during step ups and walking around gym for gait training. Pt would continue to benefit from skilled therapy for balance and strength deficits. Physical Therapy Plan Frequency and Duration Frequency of Treatment 1-2x/week Duration of Treatment 2 months Plan of Care Start Date 09/21/20 Plan of Care End Date 11/21/20 Therapeutic Interventions Therapeutic Interventions Aquatic Therapy,Balance Training,Gait Training,Home Exercise Program,Manual Therapy,Neuromuscular Re- education,Orthotic/Prosthetic Management,Patient/Caregiver Education,Self-Care/Home Management,Taping,Therapeutic Activities,Therapeutic Exercises Modalities Electric Stimulation Next Visit Focus/Plan Next Note Type Treatment Note Next Visit Plan Remind pt not to hold hands together throughout session so she can use her UEs to improve gait. Work on increasing arm swing, LE step height and length during gait. Work on overall dynamic balance & gait
--- NOTE | 2020-10-04 15:32 | PT-OP ANOTE ---
Pt no showed appt. Home and cell number had messages left on phone and grandparents phone had message left as Mona cleared for them to be part of care and signed release. Informed that d/t inc no shows if there was another, pt would have to be dc.
--- NOTE | 2020-10-11 16:01 | PT.OTN ---
Current Diagnoses Epilepsy, unspecified, not intractable, without status epilepticus (10/11/20) Difficulty in walking, not elsewhere classified (10/11/20) Weakness (10/11/20) Contusion of right elbow, initial encounter (10/11/20) Physical Therapy Treatment Note PT-OP-A Visit Information Start: 02/08/20 17:38 Freq: Status: Active Protocol: Document 10/11/20 15:25 [facility] (Rec: 10/11/20 16:01 [facility] [id number]) Out-Patient Physical Therapy Visit Information Visit Information Visit Type Treatment Note Visit Start Time 15:18 Visit Stop Time 15:59 Total Visit Minutes 41 Visit Number 27 Number of METAL WEATHER STRIPPER Visits 0 PT-OP-B Current Condition Start: 02/08/20 17:38 Freq: Status: Active Protocol: Document 02/09/20 12:55 [facility] (Rec: 02/09/20 13:47 [facility] [id number]) Current Condition History of Current Condition Current Complaints balance History of Current Condition Pt reports a fall a little while ago that she hurt her elbow but her elbow feels fine now. She has not had many falls recently but reports tripping occasionally with stumbles d/t tripping on things like rugs at home. She has not been walking much. Pt reports she has done small walks. She has not been doing her prior PT and OT exercises. Pt walks about 3 [address] [place] the [address] some times then back. Pt wants to be able to walk to the water sometime. Pt reports being indep except washing back and hair. She brushes her hair herself now and indep with dressing. Pt helps sometimes with some easier cooking and does some cleaning. 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 She had a R ant temporal lobe resection in 10/19. Pt could walk without AD prior to surgery and was indep with ADLs. Pt has had weakness on L side since she was an infant so she has worn DAFO since then. At this time the dynamic aspect is stabilized. Pt returned home from inpatient rehab 10/31. Mom helps pt bath with bath chair. Mom helps some w/L side dressing but she is able to do indep also. Pt has selective mutism. Prior Treatments and Tests PT & OT with good gains after surgery-stopped d/t COVID Treatment Goals Patient/Caregiver Goals Walk further ~1 miles, inc balance Personal Factors Other Personal Factors That May Effect BAER occasionally, has visual Therapy/Recovery field deficit to L , no seizures since surgery, selective mutism PT-OP-C Subjective Start: 02/08/20 17:38 Freq: Status: Active Protocol: Document 10/11/20 15:25 [facility] (Rec: 10/11/20 16:01 [facility] [id number]) OP-PT Subjective Patient Comments Patient Comments Pt reprots still doing waling to cap sante PT-OP-D Balance Start: 02/08/20 17:38 Freq: Status: Active Protocol: Document 02/09/20 12:55 [facility] (Rec: 02/09/20 13:47 [facility] [id number]) Balance Tests Ventura Balance Test Ventura Balance Test Score 45 PT-OP-E Functional Tests Start: 02/08/20 17:38 Freq: Status: Active Protocol: Document 09/21/20 16:51 [facility] (Rec: 09/21/20 17:53 [facility] [id number]) Functional Tests 30 Second Sit to Stand Test Score 11 Dynamic Gait Index (DGI) Score 21 Five Times Sit to Stand Test Score 12 sec Functional Gait Assessment Score 17/30 Timed Up and Go (TUG) Score 12 sec PT-OP-G Mobility & Gait Start: 02/08/20 17:38 Freq: Status: Active Protocol: Document 02/09/20 12:55 [facility] (Rec: 02/09/20 13:47 [facility] [id number]) OP Gait Assessment Comments Gait Comments Pt amb with lat lean for clearance of LLE. Pt has dec stance time on LLE. Amb in with cane but amb around gym without. Only uses cane occ in house mosty for out of house. Amb holding hands together in front of her when not using cane PT-OP-M Strength Start: 02/08/20 17:38 Freq: Status: Active Protocol: Document 09/21/20 16:51 [facility] (Rec: 09/21/20 17:53 [facility] [id number]) Hip Strength Hip Manual Muscle Testing Right Flexion (L2) 5 Normal Extension (S1) 3+ Fair+ Abduction 4 Good Adduction 5 Normal External Rotation 4 Good Internal Rotation 4 Good Left Flexion (L2) 4- Good- Extension (S1) 3+ Fair+ Abduction 4- Good- Adduction 2+ Poor+ External Rotation 3+ Fair+ Internal Rotation 4 Good Knee Strength Knee Manual Muscle Testing Right Flexion (S2) 5 Normal Extension (L3) 5 Normal Left Flexion (S2) 4 Good Extension (L3) 4 Good Ankle/Foot Strength Ankle and Foot Manual Muscle Testing Left Dorsiflexion (L4) 2+ Poor+ Plantarflexion (S1) 3+ Fair+ Comments PF tested in seated Right Dorsiflexion (L4) 5 Normal Plantarflexion (S1) 5 Normal Comments PF tested in seated PT-OP-Q Treatments Start: 02/08/20 17:38 Freq: Status: Active Protocol: Document 10/11/20 15:25 [facility] (Rec: 10/11/20 16:01 [facility] [id number]) Cardio Equipment Recumbent Elliptical (BiodGameWith) Duration (Minutes) 7 Resistance 8 Seat Position 6 Gym Equipment Shuttle Recovery Unilateral Squats Details unilateral squats Resistance 62# Shuttle Recovery Platform Stable Reps/Time 2x15 reps, cueing to avoid knee valgus Bilateral Squats Details B squats Resistance 125# Shuttle Recovery Platform Unstable Reps/Time 2x15 cued to WB equally into B LE Shuttle Balance red clips Details Tossing balloon alternating hands Comments Fwd: WBOS & NBOS & staggered stance Therapeutic Exercises Standing Exercises resist walk Standing Exercise Name fwd/back Side bilateral Equipment Used red tband Reps/Minutes 2x20ft ea side step Side bilateral Equipment Used red Reps/Minutes 2x20ft Gait Training Gait Activity wt shifts Description fwd step w/alt arm swing B arm swing Description w/dowels in B hands Comments W/PT stairs Description up/down 6 in steps reciprocally Surface no rail Distance/Duration 1x Comments 26 steps Gait Description working on arm swing for 200ft Neuro Re-Education Treatment Balance Activities carioca Reps/Duration 20ft B Comments w/step in front only hurdles Comments 1. over 6 hurdles in a row reciprocally x6 2. sidesteps over B x2 SLS Comments 1. SLS B mult trials 2. toe taps onto 16 in step B x12 tandem Details stance B PT-OP-T Assessment and Plan Start: 02/08/20 17:38 Freq: Status: Active Protocol: Document 10/11/20 15:25 [facility] (Rec: 10/11/20 16:01 [facility] [id number]) Physical Therapy Assessment Goals strength Intermediate Goal (LTG) Pt will improve all MMT by 1 grade w/ all motions to have pt inc stength in order to allow greater ease in daily activiies 09/21-slowly improving or about same since last check LTG Duration 11/21/20 sit to stand Short Term Goal (STG) Pt will improve 5x sit to stand time to 24 sec to show improved strength and stability-achieved progress goal to 05/12-Pt willb e able to do do 5x sit to stand test in under 12 sec to show improved stability & ease for transitional movements. 09/15-improved to 12 sec clsoe to goal STG Duration 10/22/20 Talent Acquisition Consultant Goal (LTG) Pt will improve 5x sit to stand time to 14 sec to show improved strength and stability. achieved 05/12-progress goal to 30 sec sit to stand test achieve 15 STS 09/21-11 STS LTG Duration 11/21/20 FGA Intermediate Goal (LTG) Pt will score >23/30 in order to show dec risk of falls. 05/12-improved to 09/21-dec to LTG Duration 11/21/20 Gait Deviation Intermediate Goal (LTG) Pt will amb without cueing with UE at side with arm swing present --still requires cueing 05/12-requires cues to start but once cued does better. 09/21 does 25% of time w/o cueing but otherwise require cues LTG Duration 11/21/20 DGI Impairment DGI 13 Short Term Goal (STG) Pt iwll improve DGI to 16 to show improved balance. STG Duration achieved Intermediate Goal (LTG) Pt will be able to score at least a 20/24 to demonstrate safe dynamic gait and low fall risk. 05/31- LTG Duration achieved Assessment Summary Assessment When pt cued for arm swing w/ walking, she was able to relax LUE well for swing. She did well with balance activities and requires cueing w/strength for LLE motion. Physical Therapy Plan Frequency and Duration Frequency of Treatment 1-2x/week Duration of Treatment 2 months Plan of Care Start Date 09/21/20 Plan of Care End Date 11/21/20 Next Visit Focus/Plan Next Note Type Treatment Note Next Visit Plan Remind pt not to hold hands together throughout session so she can use her UEs to improve gait. Work on increasing arm swing, LE step height and length during gait. Work on overall dynamic balance & gait
--- NOTE | 2020-10-17 15:18 | PT.OTN ---
Current Diagnoses Epilepsy, unspecified, not intractable, without status epilepticus (10/17/20) Difficulty in walking, not elsewhere classified (10/17/20) Weakness (10/17/20) Contusion of right elbow, initial encounter (10/17/20) Physical Therapy Treatment Note PT-OP-A Visit Information Start: 02/08/20 17:38 Freq: Status: Active Protocol: Document 10/17/20 14:44 [facility] (Rec: 10/17/20 15:18 [facility] [id number]) Out-Patient Physical Therapy Visit Information Visit Information Visit Type Treatment Note Visit Start Time 14:32 Visit Stop Time 15:12 Total Visit Minutes 40 Visit Number 28 Number of ENTRY WRITER Visits 0 PT-OP-B Current Condition Start: 02/08/20 17:38 Freq: Status: Active Protocol: Document 02/09/20 12:55 [facility] (Rec: 02/09/20 13:47 [facility] [id number]) Current Condition History of Current Condition Current Complaints balance History of Current Condition Pt reports a fall a little while ago that she hurt her elbow but her elbow feels fine now. She has not had many falls recently but reports tripping occasionally with stumbles d/t tripping on things like rugs at home. She has not been walking much. Pt reports she has done small walks. She has not been doing her prior PT and OT exercises. Pt walks about 3 [address] to the [address] some times then back. Pt wants to be able to walk to the water sometime. Pt reports being indep except washing back and hair. She brushes her hair herself now and indep with dressing. Pt helps sometimes with some easier cooking and does some cleaning. 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 She had a R ant temporal lobe resection in 10/19. Pt could walk without AD prior to surgery and was indep with ADLs. Pt has had weakness on L side since she was an infant so she has worn DAFO since then. At this time the dynamic aspect is stabilized. Pt returned home from inpatient rehab 10/31. Mom helps pt bath with bath chair. Mom helps some w/L side dressing but she is able to do indep also. Pt has selective mutism. Prior Treatments and Tests PT & OT with good gains after surgery-stopped d/t COVID Treatment Goals Patient/Caregiver Goals Walk further ~1 miles, inc balance Personal Factors Other Personal Factors That May Effect BAER occasionally, has visual Therapy/Recovery field deficit to L , no seizures since surgery, selective mutism PT-OP-C Subjective Start: 02/08/20 17:38 Freq: Status: Active Protocol: Document 10/17/20 14:44 [facility] (Rec: 10/17/20 15:18 [facility] [id number]) OP-PT Subjective Patient Comments Patient Comments Pt reprots enjoying gymnastics & doing walks to jairo hansen PT-OP-D Balance Start: 02/08/20 17:38 Freq: Status: Active Protocol: Document 02/09/20 12:55 [facility] (Rec: 02/09/20 13:47 [facility] [id number]) Balance Tests Ventura Balance Test Ventura Balance Test Score 45 PT-OP-E Functional Tests Start: 02/08/20 17:38 Freq: Status: Active Protocol: Document 09/21/20 16:51 [facility] (Rec: 09/21/20 17:53 [facility] [id number]) Functional Tests 30 Second Sit to Stand Test Score 11 Dynamic Gait Index (DGI) Score 21 Five Times Sit to Stand Test Score 12 sec Functional Gait Assessment Score 17/30 Timed Up and Go (TUG) Score 12 sec PT-OP-G Mobility & Gait Start: 02/08/20 17:38 Freq: Status: Active Protocol: Document 02/09/20 12:55 [facility] (Rec: 02/09/20 13:47 [facility] [id number]) OP Gait Assessment Comments Gait Comments Pt amb with lat lean for clearance of LLE. Pt has dec stance time on LLE. Amb in with cane but amb around gym without. Only uses cane occ in house mosty for out of house. Amb holding hands together in front of her when not using cane PT-OP-M Strength Start: 02/08/20 17:38 Freq: Status: Active Protocol: Document 09/21/20 16:51 [facility] (Rec: 09/21/20 17:53 [facility] [id number]) Hip Strength Hip Manual Muscle Testing Right Flexion (L2) 5 Normal Extension (S1) 3+ Fair+ Abduction 4 Good Adduction 5 Normal External Rotation 4 Good Internal Rotation 4 Good Left Flexion (L2) 4- Good- Extension (S1) 3+ Fair+ Abduction 4- Good- Adduction 2+ Poor+ External Rotation 3+ Fair+ Internal Rotation 4 Good Knee Strength Knee Manual Muscle Testing Right Flexion (S2) 5 Normal Extension (L3) 5 Normal Left Flexion (S2) 4 Good Extension (L3) 4 Good Ankle/Foot Strength Ankle and Foot Manual Muscle Testing Left Dorsiflexion (L4) 2+ Poor+ Plantarflexion (S1) 3+ Fair+ Comments PF tested in seated Right Dorsiflexion (L4) 5 Normal Plantarflexion (S1) 5 Normal Comments PF tested in seated PT-OP-Q Treatments Start: 02/08/20 17:38 Freq: Status: Active Protocol: Document 10/17/20 14:44 [facility] (Rec: 10/17/20 15:18 [facility] [id number]) Cardio Equipment Recumbent Elliptical (SP3H) Duration (Minutes) 7 Resistance 8 Seat Position 6 Gym Equipment Shuttle Balance red clips Details Tossing balloon alternating hands Comments Fwd: WBOS & NBOS & staggered stance Therapeutic Ball seated Ball Size/Color 65cm Body Position seated Reps/Duration 12 ea B Comments 1. alt arm lifts 2. alt marches 3. reciprocal arm & march 4. knee ext 5. bounces 6. ant.post pelvic tilt, side 7. circles CW, CCW Therapeutic Exercises Standing Exercises resist walk Standing Exercise Name fwd/back Side bilateral Equipment Used red tband Reps/Minutes 2x20ft ea squat Standing Exercise Name mini at rail Side bilateral Reps/Minutes 15 side step Side bilateral Equipment Used red Reps/Minutes 2x20ft Gait Training Gait Activity wt shifts Description fwd step w/alt arm swing B arm swing Description w/dowels in B hands Comments W/PT stairs Description up/down 6 in steps reciprocally Surface no rail Distance/Duration 1x Comments 26 steps Gait Description working on arm swing for 200ft Neuro Re-Education Treatment Balance Activities carioca Reps/Duration 20ft B SLS Comments 1. toe taps to 16 in step Bx15 2. SLS w/ball circles B PT-OP-T Assessment and Plan Start: 02/08/20 17:38 Freq: Status: Active Protocol: Document 10/17/20 14:44 [facility] (Rec: 10/17/20 15:18 [facility] [id number]) Physical Therapy Assessment Goals strength Twisting Frame Fixer Goal (LTG) Pt will improve all MMT by 1 grade w/ all motions to have pt inc stength in order to allow greater ease in daily activiies 09/21-slowly improving or about same since last check LTG Duration 11/21/20 sit to stand Short Term Goal (STG) Pt will improve 5x sit to stand time to 24 sec to show improved strength and stability-achieved progress goal to 05/12-Pt willb e able to do do 5x sit to stand test in under 12 sec to show improved stability & ease for transitional movements. 09/15-improved to 12 sec clsoe to goal STG Duration 10/22/20 Usp Goal (LTG) Pt will improve 5x sit to stand time to 14 sec to show improved strength and stability. achieved 05/12-progress goal to 30 sec sit to stand test achieve 15 STS 09/21-11 STS LTG Duration 11/21/20 FGA Usp Goal (LTG) Pt will score >23/30 in order to show dec risk of falls. 05/12-improved to 19/30 09/21-dec to LTG Duration 11/21/20 Gait Deviation Twisting Frame Fixer Goal (LTG) Pt will amb without cueing with UE at side with arm swing present --still requires cueing 05/12-requires cues to start but once cued does better. 09/21 does 25% of time w/o cueing but otherwise require cues LTG Duration 11/21/20 DGI Impairment DGI 1324 Short Term Goal (STG) Pt iwll improve DGI to 16 to show improved balance. STG Duration achieved Twisting Frame Fixer Goal (LTG) Pt will be able to score at least a 20/24 to demonstrate safe dynamic gait and low fall risk. 05/31- LTG Duration achieved Assessment Summary Assessment Pt did well with balance and strengthening. sHe was most challenged by the squats today . She cont to improve with balance and gait but does require cuieng. Physical Therapy Plan Frequency and Duration Frequency of Treatment 1-2x/week Duration of Treatment 2 months Plan of Care Start Date 09/21/20 Plan of Care End Date 11/21/20 Next Visit Focus/Plan Next Note Type Treatment Note Next Visit Plan Remind pt not to hold hands together throughout session so she can use her UEs to improve gait. Work on increasing arm swing, LE step height and length during gait. Work on overall dynamic balance & gait
--- NOTE | 2020-11-23 18:11 | PT.OPDS ---
Current Diagnoses Epilepsy, unspecified, not intractable, without status epilepticus (10/17/20) Difficulty in walking, not elsewhere classified (10/17/20) Weakness (10/17/20) Contusion of right elbow, initial encounter (10/17/20) Visit Care Team Role Provider Type Greg Glaser DO Attending Provider Physician Family Provider Primary Care Provider Referring Provider Specialty: [facility] Practice Address: [address] [place] [address], [facility] Email: Visit Number Visit Number 28 Discharge Summary PT-OP-B Current Condition Start: 02/08/20 17:38 Freq: Status: Active Protocol: Document 02/09/20 12:55 [facility] (Rec: 02/09/20 13:47 [facility] [id number]) Current Condition History of Current Condition Current Complaints balance History of Current Condition Pt reports a fall a little while ago that she hurt her elbow but her elbow feels fine now. She has not had many falls recently but reports tripping occasionally with stumbles d/t tripping on things like rugs at home. She has not been walking much. Pt reports she has done small walks. She has not been doing her prior PT and OT exercises. Pt walks about 3 [address] [place] the [address] some times then back. Pt wants to be able to walk to the water sometime. Pt reports being indep except washing back and hair. She brushes her hair herself now and indep with dressing. Pt helps sometimes with some easier cooking and does some cleaning. 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 She had a R ant temporal lobe resection in 10/19. Pt could walk without AD prior to surgery and was indep with ADLs. Pt has had weakness on L side since she was an so she has worn DAFO since then. At this time the dynamic aspect is stabilized. Pt returned home from inpatient rehab 10/31. Mom helps pt bath with bath chair. Mom helps some w/L side dressing but she is able to do indep also. Pt has selective mutism. Prior Treatments and Tests PT & OT with good gains after surgery-stopped d/t COVID Treatment Goals Patient/Caregiver Goals Walk further ~1 miles, inc balance Personal Factors Other Personal Factors That May Effect BAER occasionally, has visual Therapy/Recovery field deficit to L , no seizures since surgery, selective mutism PT-OP-C Subjective Start: 02/08/20 17:38 Freq: Status: Active Protocol: Document 10/17/20 14:44 [facility] (Rec: 10/17/20 15:18 [facility] [id number]) OP-PT Subjective Patient Comments Patient Comments Pt reprots enjoying gymnastics & doing walks to [facility] guillermo hansen PT-OP-D Balance Start: 02/08/20 17:38 Freq: Status: Active Protocol: Document 02/09/20 12:55 [facility] (Rec: 02/09/20 13:47 [facility] [id number]) Balance Tests [place]ura Balance Test Ventura Balance Test Score 45 PT-OP-E Functional Tests Start: 02/08/20 17:38 Freq: Status: Active Protocol: Document 09/21/20 16:51 [facility] (Rec: 09/21/20 17:53 [facility] [id number]) Functional Tests 30 Second Sit to Stand Test Score 11 Dynamic Gait Index (DGI) Score 21 Five Times Sit to Stand Test Score 12 sec Functional Gait Assessment Score 17/30 Timed Up and Go (TUG) Score 12 sec PT-OP-G Mobility & Gait Start: 02/08/20 17:38 Freq: Status: Active Protocol: Document 02/09/20 12:55 [facility] (Rec: 02/09/20 13:47 [facility] [id number]) OP Gait Assessment Comments Gait Comments Pt amb with lat lean for clearance of LLE. Pt has dec stance time on LLE. Amb in with cane but amb around gym without. Only uses cane occ in house mosty for out of house. Amb holding hands together in front of her when not using cane PT-OP-M Strength Start: 02/08/20 17:38 Freq: Status: Active Protocol: Document 09/21/20 16:51 [facility] (Rec: 09/21/20 17:53 [facility] [id number]) Hip Strength Hip Manual Muscle Testing Right Flexion (L2) 5 Normal Extension (S1) 3+ Fair+ Abduction 4 Good Adduction 5 Normal External Rotation 4 Good Internal Rotation 4 Good Left Flexion (L2) 4- Good- Extension (S1) 3+ Fair+ Abduction 4- Good- Adduction 2+ Poor+ External Rotation 3+ Fair+ Internal Rotation 4 Good Knee Strength Knee Manual Muscle Testing Right Flexion (S2) 5 Normal Extension (L3) 5 Normal Left Flexion (S2) 4 Good Extension (L3) 4 Good Ankle/Foot Strength Ankle and Foot Manual Muscle Testing Left Dorsiflexion (L4) 2+ Poor+ Plantarflexion (S1) 3+ Fair+ Comments PF tested in seated Right Dorsiflexion (L4) 5 Normal Plantarflexion (S1) 5 Normal Comments PF tested in seated PT-OP-T Assessment and Plan Start: 02/08/20 17:38 Freq: Status: Active Protocol: Document 11/23/20 18:10 [facility] (Rec: 11/23/20 18:11 [facility] [id number]) Physical Therapy Assessment Assessment Summary Assessment Pt made good progress through course of therapy but has no showed mult appts including today's appt and has not been seen for over a month and was seen inconsistatnly prior to this. At this time, pt is dc from service. Physical Therapy Plan Discharge Physical Therapy Discharge Reasons No Longer Attending PT
== END 2020-12-14 10:00 | disposition home or self-care (01) ==
LOC: PHYS 14:30
PROVIDERS: Family Provider Family Medicine; PCP Family Medicine; Referring Provider Family Medicine; Visit Provider Family Medicine
DX: S50.01XA Contusion of right elbow, initial encounter (principal); G40.909 Epilepsy, unspecified, not intractable, without status epilepticus; R53.1 Weakness; R26.2 Difficulty in walking, not elsewhere classified
CPT/HCPCS: 97110; 97112; 97116; 97162

== ENCOUNTER → 2020-11-14 15:51 | Outpatient (CLI) | payer OTHER, MEDICAID, SELFPAY ==
--- NOTE | 2020-11-14 15:53 | DI.RAD.S_ITS ---
PROCEDURE: XR FOOT RT MIN 3V INDICATIONS: R foot pain/injury dorsum of foot TECHNIQUE: 3 views of the foot were acquired. COMPARISON: [facility], CR, XR FOOT RT MIN 3V, 12/27/2017, 10:32. FINDINGS: Bones: No fractures or dislocations. No suspicious bony lesions. Soft tissues: No tibiotalar joint effusion. Achilles tendon appears normal. IMPRESSION: Negative examination. No fracture. If the patient's symptoms do not improve recommend followup radiographs in 10 days to assess for healing sclerosis/occult injury. Dictated by: Ethan Soliz M.D. on 11/14/2020 at 16:15 Approved by: Ethan Soliz M.D. on 11/14/2020 at 16:17
--- NOTE | 2020-11-14 15:53 | DI.RAD.S_ITS ---
PROCEDURE: XR ANKLE RT MIN 3V INDICATIONS: R ankle pain/injury TECHNIQUE: 3 views of the ankle were acquired. COMPARISON: None. FINDINGS: Bones: No fractures or dislocations. Ankle mortise is normally aligned. No suspicious bony lesions. Soft tissues: No tibiotalar joint effusion. Achilles tendon appears normal. IMPRESSION: Negative examination. If the patient's pain or other symptoms persist, consider further evaluation with MRI Dictated by: Ethan Soliz M.D. on 11/14/2020 at 16:14 Approved by: Ethan Soliz M.D. on 11/14/2020 at 16:15
== END ==
PROVIDERS: Family Provider Family Medicine; PCP Family Medicine; Referring Provider Student in an Organized Health Care Education/Training Program; Visit Provider Student in an Organized Health Care Education/Training Program
DX: M79.671 Pain in right foot (principal); M25.571 Pain in right ankle and joints of right foot
CPT/HCPCS: 73610; 73630

== ENCOUNTER 2020-11-17 14:30 | Outpatient (RCR) | payer OTHER, MEDICAID, SELFPAY ==
--- NOTE | 2020-02-11 16:53 | OT.OP.EVAL ---
Visit Care Team Role Provider Type Greg Glaser DO Attending Provider Physician Family Provider Primary Care Provider Referring Provider Specialty: Family Practice Address: [address] [place] [address], [id number] Email: Occupational Therapy Initial Evaluation OT Outpatient Adult Evaluation Start: 02/11/20 16:05 Freq: Status: Active Protocol: Document 02/11/20 16:06 AMS (Rec: 02/11/20 16:51 AMS [id number]) General Information Visit Start Time 10:30 Visit Stop Time 11:15 Total Visit Minutes 45 Plan of Care Dates 02/11/20-05/05/20 Insurance Information [employer] Treatment Setting Outpatient Care Note Type Initial Evaluation Range of Motion Left Elbow/Forearm ROM WFL Yes Forearm ROM Testing Position Sitting Shoulder Flex AROM (degrees) 0-135 Query Text: Shoulder Abd AROM (degrees) 0-125 Right Elbow/Forearm ROM WFL Yes Forearm ROM Testing Position Sitting Shoulder Flex AROM (degrees) 0-145 Query Text: Shoulder Abd AROM (degrees) 0-130 Right Active Wrist ROM WFL Yes Wrist Flex AROM (degrees) 0-55 Wrist Ext AROM Fingers Open (degrees) 0-70 Ulnar Deviation AROM (degrees) 0-30 Radial Deviation AROM (degrees) 0-20 Left Active Wrist ROM WFL Yes Wrist ROM Testing Position Sitting Wrist Flex AROM (degrees) 0-55 Wrist Ext AROM Fingers Open (degrees) 0-70 (slight flexion distally of digits) Ulnar Deviation AROM (degrees) 0-30 Radial Deviation AROM (degrees) 0-20 Goals Treatment Initiated HEP; instructed to work on thumb coordination w/ opposition to each digit pad of the left hand. Also instructed to work on active extension of digits w/ hand resting on flat surface. Short Term Goals 1. Mona will actively participate in additional standardized fine motor/object manipulation assessments to establish baseline. Snf Goals 1. Mona will be modified independent with execution of home exercise program utilizing provided written and visual instructions with support of her family. 2. Based on verbal family and self-report, Mona will be modified independent with opening of jars within the home with active incorporation of the non-dominant hand utilizing AE and compensatory strategies as needed. Assessment/Plan Treatment Assessment Mona is a R hand dominant 19 year-old female referred to OT secondary to diagnosis of epilepsy. 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 Patient goal: Warren with opening of jars. Evaluation findings: Mona denies pain. She is able to oppose L thumb to 4th digit pad w/ increased effort. Decreased extensor strength of digits of the left hand; slight flexion of digits noted distally with wrist ext. Proximal compensatory strategies to support L UE AROM; (+) leaning against back of chair noted w/ L shoulder ROM. Decreased AROM of L shoulder compared to R shoulder; L elbow and wrist AROM WFL. Decreased strength of B UEs; weaknesses more signficant in L UE compared to R UE. Some weaknesses identified may have been d/t motor planning difficulties versus muscular weaknesses. Other findings include decreased motor planning of the L hand; decreased awareness of UE in space; and decreased funcational abilities. Outpatient OT is recommended to address these areas in order to maximize Mona's success w/ active participation in meaningful activities in a variety of environments with active incorporation of non-dominant hand. Home Exercise Program Please refer to treatment section of note for specific details. Comment 12 weeks Treatment Frequency Once a Week Therapeutic Contents Active Range of Motion, Adaptive Equipment Education, Client Education,Cognitive Skills Development,Functional Activities,Home Exercise Program,Joint Protection, Manual Therapy,Education, Neurodevelopment Treatment, Neuromuscular Re-Education, Self-Care,Stretching/ Flexibility Activities, Therapeutic Activities, Therapeutic Exercises,Sensory Re-education Patient Instruction Home Exercise Program,Plan of Care Occupational Therapy Assessment OT Outpatient Standardized Assessments Start: 02/11/20 16:05 Freq: Status: Active Protocol: Document 02/11/20 16:06 [facility] (Rec: 02/11/20 16:51 [facility] [id number]) 9-Hole Peg Hand Test Hand Left Date of Test 02/11/20 Therapist UMA Acosta/Hardeep Norm For Patients Age/Sex 20-24 y.o. women = 17.2 +/- 2. 4 Comments Scoring Time = 2 min 5 sec. Interpretation = > 10+ SD above the mean Right Date of Test 02/11/20 Therapist UMA Acosta/Hardeep Interpretation Impaired Norm For Patients Age/Sex 20-24 y.o. women = 15.8 +/- 2. 1 Comments Scoring Time = 27.1 sec. Interpretation = > 5 SD above the mean Occupational Therapy Assessment OT Outpatient Muscle Testing Start: 02/11/20 16:05 Freq: Status: Active Protocol: Document 02/11/20 16:06 AMS (Rec: 02/11/20 16:51 AMS [id number]) Shoulder Strength Shoulder Manual Muscle Testing Left Flexion 3+ Fair+ Extension 4 Good Abduction (C5) 4+ Good+ Adduction 3+ Fair+ External Rotation 3+ Fair+ Internal Rotation 4 Good Horizontal Abduction 3+ Fair+ Horizontal Adduction 3+ Fair+ Right Flexion 4 Good Extension 5 Normal Abduction (C5) 4+ Good+ Adduction 5 Normal External Rotation 4+ Good+ Internal Rotation 5 Normal Horizontal Abduction 4 Good Horizontal Adduction 4- Good- Elbow/Forearm Strength Elbow and Forearm Manual Muscle Testing Left Flexion (C6) 5 Normal Extension (C7) 5 Normal Right Flexion (C6) 5 Normal Extension (C7) 5 Normal Wrist Strength Wrist Manual Muscle Testing Left Flexion (C7) 5 Normal Extension (C6) 5 Normal Ulnar Deviation 5 Normal Radial Deviation 5 Normal Right Flexion (C7) 5 Normal Extension (C6) 5 Normal Ulnar Deviation 5 Normal Radial Deviation 5 Normal [employer]/Hand Strength [employer]/Hand Strength Left [employer] Dynamometer II 38.3 Lateral Pinch Strengh (lbs) 14.0 Tip Pinch Strength (lbs) 7.5 Comments 02/11/20 Measurements Norms for 20-24 y.o. [employer] Strength = 61.0 +/- 13.1; Interpretation = > 1 SD below mean Norms for 20-24 y.o. Lateral Pinch Strength = 16.2 +/- 2.1; Interpretation = slightly > 1 SD below mean Norms for 20-24 y.o. Tip Pinch Strength = 10.5 +/- 1.7; Interpretation = > 1 SD below mean Right [employer] Dynamometer II 54.7 Lateral Pinch Strengh (lbs) 21.0 Tip Pinch Strength (lbs) 14.7 Comments 02/11/20 Measurements Norms for 20-24 y.o. [employer] Strength = 70.4 +/- 14.5; Interpretation = slightly > 1 SD below mean Norms for 20-24 y.o. Lateral Pinch Strength = 17.6 +/- 2.0; Interpretation = > 1 SD above mean Norms for 20-24 y.o. Tip Pinch Strength = 11.1 +/- 2.1; Interpretation = > 1 SD above mean
--- NOTE | 2020-02-16 15:44 | OT.OP.TRT ---
Visit Care Team Role Provider Type Greg Glasre DO Attending Provider Physician Family Provider Primary Care Provider Referring Provider Specialty: Family Practice Address: [address] [place] [address], [id number] Email: Occupational Therapy Treatment Note OT Outpatient Treatment Note - Adult Start: 02/11/20 16:05 Freq: Status: Active Protocol: Document 02/16/20 14:20 AMS (Rec: 02/16/20 14:31 AMS [id number]) OT Outpatient Adult Treatment Note Session Time Visit Start Time 12:30 Visit Stop Time 15:20 Total Visit Minutes 50 Visit Information Plan of Care Dates 02/11/20-05/05/20 Insurance Information [employer] Setting Treatment Setting Outpatient Care Visit Type Note Type Treatment Note General Information General Information Mona is a R hand dominant 19 year-old female referred to OT secondary to diagnosis of epilepsy. 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 - Subjective Identification Type Name Identification Reconciled With Medical Record Observations Yes per Mona in re: listening to music while cleaning. Yes per Mona in re: inquiry about utilizing the L hand while completing light housekeeping tasks in the kitchen including sweeping /wiping down countertops. - Objective Objective Measurements Please refer to below for progress towards meeting established OT goals. Therapist administered Miguelito Hand Function Subtests on this date; therapist excluded writing and simulated feeding subtests. Refer to standardized assessment section of note for specific details. Short Term Goals 1. Mona will demonstrate improved fine motor coordination of the left hand; this will be evidenced by Mona's ability to complete the Miguelito Hand Function stacking checks subtest under 30.0 seconds with her non- dominant left hand. 2. Mona will demonstrate improved fine motor coordination of the left hand; this will be evidenced by her ability to transfer x 10 medium sized pom poms with tweezers positioned in her left hand requiring physical assistance initially for grasp and maximum verbal/visual cues from therapist. GOALS MET Actively participated in additional standardized assessments. *MET 02/16/20 Jail Goals 1. Mona will be modified independent with execution of home exercise program utilizing provided written and visual instructions with support of her family. 2. Based on verbal family and self-report, Mona will be modified independent with opening of jars within the home with active incorporation of the non-dominant hand utilizing AE and compensatory strategies as needed. - Treatment 3 Descriptor Tool use. Object manipulation. 2 Descriptor Object manipulation. Focus on grading of force between thumb and second digit . 1 Descriptor Administration of standardized assessments. Administration of Miguelito Hand Function Test; exclusion of writing and simulated feeding subtests. Exercises 1 Descriptor HEP/POC. Reviewed treatment session w/ Mother based on feedback received from Mona. Discussed need to work on picking up objects w/ thumb and 2nd digit w/ focus on grading of force. Recommended avoidance of small objects, such as coins. - Assessment Assessment of Improvement Decreased speed and efficiency w/ object manipulation bilaterally; R and L. However, it is important to note that Mona was 11+ SD above the mean for all subtests excluding the simulated page turning subtest w/ the non- dominant hand. New goals were established on this treatment date w/ focus on object manipulation abilities to promote functional abilities. Increased focus was also on working on grading of force between thumb and other fingers and working out of lateral pinch grasp pattern. Outpatient OT is recommended to maximize Mona's success w / active participation in meaningful activities in a variety of environments with active incorporation of non- dominant hand. Recommended activities: graded force obj manipulation activities Home Exercise Program Please refer to treatment section of note for specific details. Reviewed with Patient/Caregiver Home Exercise Program Patient/Caregiver Understanding Good - Plan Therapy Recommendations Continue with Current Program, Advance per Rehabilitation Protocol Additional Therapy Recommendations Consult w/ other therapies Occupational Therapy Assessment OT Outpatient Standardized Assessments Start: 02/11/20 16:05 Freq: Status: Active Protocol: Document 02/16/20 14:20 [facility] (Rec: 02/16/20 14:31 [facility] [id number]) Jebsen-Trudy Hand Function Test Date of Test Date of Test 02/16/20 Writing Non-Dominant Hand Not Tested Dominant Hand Not Tested Lifting Small, Common Objects Non-Dominant Hand 41.8 seconds Dominant Hand 14.9 seconds Comments Norms for 20 to 59 year-old women Non-dominant hand: 6.0 +/- 1. 0 sec; 10+ SD above the mean Dominant hand: 5.5 +/- 0.8 sec; > 3 SD above the mean Simulated Feeding Non-Dominant Hand Not Tested Dominant Hand Not Tested Stacking Checkers Non-Dominant Hand 37.7 seconds Dominant Hand 5.1 seconds Comments Norms for 20 to 59 year-old women Non-dominant hand: 3.8 +/- 0. 7 sec; 10+ SD above the mean Dominant hand: 3.3 +/- 0.6 sec; 3 SD above the mean Lifting Large, Light Objects Non-Dominant Hand 12.1 seconds Dominant Hand 5.2 seconds Comments Norms for 20 to 59 year-old women Non-dominant hand: 3.3 +/- 0. 6 sec; 10+ SD above the mean Dominant hand: 3.1 +/- 0.5 sec; > 4 SD above the mean Lifting Large, Heavy Objects Non-Dominant Hand 10.7 seconds Dominant Hand 6.0 seconds Comments Norms for 20 to 59 year-old women Non-dominant hand: 3.3 +/- 0. 5 sec; 10+ SD above the mean Dominant hand: 3.2 +/- 0.5 sec; > 4 SD above the mean Clinical Observations Clinical Observations Simulated Page Turning Subtest Non-Dominant Hand = 16.2 sec; Dominant Hand = 8.7 sec Norms for 20 to 59 year-old women Non-dominant hand: 4.8 +/- 1. 1 sec; > 10 SD above the mean Dominant hand: 4.3 +/- 1.4 sec; > 3 SD above the mean 9-Hole Peg Hand Test Hand Left Date of Test 02/11/20 Therapist ANGELIA Acosta Norm For Patients Age/Sex 20-24 y.o. women = 17.2 +/- 2. 4 Comments Scoring Time = 2 min 5 sec. Interpretation = > 10+ SD above the mean Right Date of Test 02/11/20 Therapist ANGELIA Acosta Interpretation Impaired Norm For Patients Age/Sex 20-24 y.o. women = 15.8 +/- 2. 1 Comments Scoring Time = 27.1 sec. Interpretation = > 5 SD above the mean
--- NOTE | 2020-02-23 13:32 | OT.OP.TRT ---
Visit Care Team Role Provider Type Greg Glaser DO Attending Provider Physician Family Provider Primary Care Provider Referring Provider Specialty: Family Practice Address: [address] [place] [address], [id number] Email: Occupational Therapy Treatment Note OT Outpatient Treatment Note - Adult Start: 02/11/20 16:05 Freq: Status: Active Protocol: Document 02/23/20 12:33 [facility] (Rec: 02/23/20 13:32 [facility] [id number]) OT Outpatient Adult Treatment Note Session Time Visit Start Time 12:30 Visit Stop Time 15:20 Total Visit Minutes 50 Visit Information Plan of Care Dates 02/11/20-05/05/20 Insurance Information [employer] Setting Treatment Setting Outpatient Care Visit Type Note Type Treatment Note General Information General Information Mona is a R hand dominant 19 year-old female referred to OT secondary to diagnosis of epilepsy. 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 - Subjective Identification Type Name Identification Reconciled With Medical Record Observations No new changes were reported by Mona. - Objective Objective Measurements Please refer to below for progress towards meeting established OT goals. Therapist administered Miguelito Hand Function Subtests on this date; therapist excluded writing and simulated feeding subtests. Refer to standardized assessment section of note for specific details. Short Term Goals 1. Mona will demonstrate improved fine motor coordination of the left hand; this will be evidenced by Mona's ability to complete the Miguelito Hand Function stacking checks subtest under 30.0 seconds with her non- dominant left hand. 02/23/20= 25% met 2. Mona will demonstrate improved fine motor coordination of the left hand; this will be evidenced by her ability to transfer x 10 medium sized pom poms with tweezers positioned in her left hand requiring physical assistance initially for grasp and maximum verbal/visual cues from therapist. 02/23/20= 25% met; assist w/ adjusted grasp 3 times GOALS MET Actively participated in additional standardized assessments. *MET 02/16/20 Nursing Home Goals 1. Mona will be modified independent with execution of home exercise program utilizing provided written and visual instructions with support of her family. 02/23/20 = 25% met 2. Based on verbal family and self-report, Mona will be modified independent with opening of jars within the home with active incorporation of the non-dominant hand utilizing AE and compensatory strategies as needed. - Treatment 4 Descriptor Motor planning/dissociation between digits. Focus on dissociation between 2nd and 3rd digits w/ fingers resting on TT. 3 Descriptor Tool use. Object manipulation. Tweezers. 2 Descriptor Object manipulation/In-hand manipulation. Separation of 2 sides of hand. Translation. Exercises 2 Descriptor Wrist/digit extension. Therapist assist for positioning of TB on TT w/ exercise. 2 sets of 10 repetitions. TB # 1 resistance. Side Left Complexity Upgraded 1 Descriptor HEP/POC. Reviewed treatment session w/ Mother based on feedback received from Mona. Discussed need to work on picking up objects w/ thumb and 2nd digit w/ focus on grading of force. Recommended avoidance of small objects, such as coins. - Assessment Assessment of Improvement Increased success w/ utilization of tweezers compared to previous treatment session; however, physical assistance required frequently to adjust grasp. Incorporated 3-jaw grasp into treatment session; decreased grading of force of thumb noted. Impaired in-hand manipulation; (+) benefit from object placed in palm to support 2 sided separation. Initiated TB w/ extensor digit/wrist strengthening; initiated dissociation w/ focus on 2nd/ 3rd digits w/ therapist blocking to support success. Increased success w/ reps. Continues to bring L UE into curled position w/ gait despite cueing. Outpatient OT is recommended to maximize Mona's success w / active participation in meaningful activities in a variety of environments with active incorporation of non- dominant hand. Recommended activities: functional object manipulation ; fine motor coordination; tool use/manipulation. Home Exercise Program Please refer to treatment section of note for specific details. Reviewed with Patient/Caregiver Home Exercise Program Patient/Caregiver Understanding Good - Plan Therapy Recommendations Continue with Current Program, Advance per Rehabilitation Protocol Additional Therapy Recommendations Consult w/ other therapies
--- NOTE | 2020-03-15 16:07 | OT.OP.TRT ---
Visit Care Team Role Provider Type Greg Glaser DO Attending Provider Physician Family Provider Primary Care Provider Referring Provider Specialty: Family Practice Address: [address] [place] [address], [id number] Email: Occupational Therapy Treatment Note OT Outpatient Treatment Note - Adult Start: 02/11/20 16:05 Freq: Status: Active Protocol: Document 03/15/20 12:26 [facility] (Rec: 03/15/20 13:21 AMS [id number]) OT Outpatient Adult Treatment Note Session Time Visit Start Time 12:30 Visit Stop Time 15:20 Total Visit Minutes 50 Visit Information Plan of Care Dates 02/11/20-05/05/20 Insurance Information [employer] Setting Treatment Setting Outpatient Care Visit Type Note Type Treatment Note General Information General Information Mona is a R hand dominant 19 year-old female referred to OT secondary to diagnosis of epilepsy. 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 - Subjective Identification Type Name Identification Reconciled With Medical Record Observations No new changes were reported. - Objective Objective Measurements Please refer to below for progress towards meeting established OT goals. Therapist administered Miguelito Hand Function Subtests on this date; therapist excluded writing and simulated feeding subtests. Refer to standardized assessment section of note for specific details. Short Term Goals 1. Mona will demonstrate improved fine motor coordination of the left hand; this will be evidenced by Mona's ability to complete the Miguelito Hand Function stacking checkers subtest under 30.0 seconds with her non-dominant left hand. = 25% met 2. Mona will demonstrate improved fine motor coordination of the left hand; this will be evidenced by her ability to transfer x 10 medium sized pom poms with tweezers positioned in her left hand requiring physical assistance initially for grasp and maximum verbal/visual cues from therapist. 02/23/20= 25% met; assist w/ adjusted grasp 3 times GOALS MET Actively participated in additional standardized assessments. *MET 02/16/20 Winding Rack Operator Goals 1. Mona will be modified independent with execution of home exercise program utilizing provided written and visual instructions with support of her family. 03/15/20= 25% met 2. Based on verbal family and self-report, Mona will be modified independent with opening of jars within the home with active incorporation of the non-dominant hand utilizing AE and compensatory strategies as needed. - Treatment 5 Descriptor Bimanual coordination. Cookie sheet w/ ball. Ball L <-> R. 4 Descriptor Motor planning/dissociation between digits. Thumb motor planning; translation of objects. Abd of digits. Add of digits. Finger tap (thumb/2nd digit). 3 Descriptor Tool use. Tongs. 2 Descriptor In-hand manipulation. Separation of 2 sides of hand. Translation. 1 Descriptor UE motor planning w/ object retrieval to L of body. Exercises 2 Descriptor Wrist/digit extension. Therapist assist for positioning of TB on TT w/ exercise. 2 sets of 10 repetitions. TB # 1 resistance. Side Left Complexity Upgraded 1 Descriptor HEP/POC. Reviewed treatment session w/ Mother based on feedback received from Mona. Recommended active utilization of L hand in day- to-day life w/ various functional tasks. Recommended continued work on movement of obj in hand w/ thumb, dissociation finger/hand movements. - Assessment Assessment of Improvement Impaired inhand manipulation; need to continue to work on this area. Able to progress to 'flipping' of roly in palm on this treatment date. Improving dissociation between 1st and 2nd digits at rest on table; increased effort and concentration. Difficulties w/ motor planning abd/add of digits; recommend repeating. Tendency towards distal palmar arching and bringing palm off of table. Impaired bimanual coordination of the upper extremities. Continues to bring L UE into curled position w/ gait despite cueing. Outpatient OT is recommended to maximize Mona's success w / active participation in meaningful activities in a variety of environments with active incorporation of non- dominant hand. Recommended activities: functional object manipulation ; fine motor coordination; tool use/manipulation. Home Exercise Program Please refer to treatment section of note for specific details. Reviewed with Patient/Caregiver Home Exercise Program Patient/Caregiver Understanding Good - Plan Therapy Recommendations Continue with Current Program, Advance per Rehabilitation Protocol Additional Therapy Recommendations Consult w/ other therapies
--- NOTE | 2020-03-25 15:45 | OT.OP.TRT ---
Visit Care Team Role Provider Type Greg Glaser DO Attending Provider Physician Family Provider Primary Care Provider Referring Provider Specialty: Family Practice Address: [address] [place] [address], [id number] Email: Occupational Therapy Treatment Note OT Outpatient Treatment Note - Adult Start: 02/11/20 16:05 Freq: Status: Active Protocol: Document 03/25/20 15:34 [facility] (Rec: 03/25/20 15:44 [facility] [id number]) OT Outpatient Adult Treatment Note Session Time Visit Start Time 13:30 Visit Stop Time 14:20 Total Visit Minutes 50 Visit Information Plan of Care Dates 02/11/20-05/05/20 Insurance Information [employer] Setting Treatment Setting Outpatient Care Visit Type Note Type Treatment Note General Information General Information Mona is a R hand dominant 19 year-old female referred to OT secondary to diagnosis of epilepsy. 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 - Subjective Identification Type Name Identification Reconciled With Medical Record Observations No new changes were reported. - Objective Objective Measurements Please refer to below for progress towards meeting established OT goals. Therapist administered Miguelito Hand Function Subtests on this date; therapist excluded writing and simulated feeding subtests. Refer to standardized assessment section of note for specific details. Short Term Goals 1. Mona will demonstrate improved fine motor coordination of the left hand; this will be evidenced by Mona's ability to complete the Miguelito Hand Function stacking checkers subtest under 30.0 seconds with her non-dominant left hand. = 25% met 2. Mona will demonstrate improved fine motor coordination of the left hand; this will be evidenced by her ability to transfer x 10 medium sized pom poms with tweezers positioned in her left hand requiring physical assistance initially for grasp and maximum verbal/visual cues from therapist. 02/23/20= 25% met; assist w/ adjusted grasp 3 times GOALS MET Actively participated in additional standardized assessments. *MET 02/16/20 Line Supervisor Goals 1. Mona will be modified independent with execution of home exercise program utilizing provided written and visual instructions with support of her family. 03/25/20 = 25% met 2. Based on verbal family and self-report, Mona will be modified independent with opening of cans within the home with active incorporation of the non-dominant hand utilizing AE and compensatory strategies as needed. 03/25/20= GOAL UPGRADED GOALS MET Mod independent w/ opening of jars w/ active use of L hand based on self-report. *MET - Treatment 5 Descriptor Bimanual coordination. 4 Descriptor Motor planning/dissociation between digits. Thumb motor planning. Object slide on TT surface. Translation of objects. Wrist dissociation. Dissociation of proximal UE. 3 Descriptor Tool use. Tongs. 2 Descriptor In-hand manipulation. Separation of 2 sides of hand. Translation. 1 Descriptor UE motor planning w/ object retrieval to L of body. Exercises 2 Descriptor Digit extension. Therapist assist for positioning of TB on TT w/ exercise. TB #4 resistance. 2 x 10 reps. 1 Descriptor HEP/POC. Reviewed treatment session w/ Mother based on feedback received from Mona. Recommended active utilization of L hand in day- to-day life w/ various functional tasks, including progressing to management of cans w/ utilization of can roll grinder operator. - Assessment Patient Response to Treatment Excellent Assessment of Improvement Improving functional abilities of the left hand; met short term goal in this area. Upgraded goal appropriately. Impaired motor planning of the UE; poor dissociation between wrist flex/ext and proximal UE. Improved isolation/success with motor planning w/ repetitions. Improving ability to extend digits w/ use of medium cone to support positioning of wrist for strengthening. Impaired in- hand manipulation abilities of the left hand. Continues to bring L UE into curled position w/ gait despite cueing. Outpatient OT is recommended to maximize Mona's success w / active participation in meaningful activities in a variety of environments with active incorporation of non- dominant hand. Recommended activities: functional object manipulation ; fine motor coordination; tool use/manipulation. Home Exercise Program Please refer to treatment section of note for specific details. Reviewed with Patient/Caregiver Home Exercise Program Patient/Caregiver Understanding Good - Plan Therapy Recommendations Continue with Current Program, Advance per Rehabilitation Protocol Additional Therapy Recommendations Consult w/ other therapies
--- NOTE | 2020-04-01 15:51 | OT.OP.TRT ---
Visit Care Team Role Provider Type Greg Glaser DO Attending Provider Physician Family Provider Primary Care Provider Referring Provider Specialty: Family Practice Address: [address] [place] [address], [phone] Email: Occupational Therapy Treatment Note OT Outpatient Treatment Note - Adult Start: 02/11/20 16:05 Freq: Status: Active Protocol: Document 04/01/20 15:24 AMS (Rec: 04/01/20 15:50 AMS [id number]) OT Outpatient Adult Treatment Note Session Time Visit Start Time 13:30 Visit Stop Time 14:20 Total Visit Minutes 50 Visit Information Plan of Care Dates 02/11/20-05/05/20 Insurance Information [employer] Setting Treatment Setting Outpatient Care Visit Type Note Type Treatment Note General Information General Information Mona is a R hand dominant 19 year-old female referred to OT secondary to diagnosis of epilepsy. 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 - Subjective Identification Type Name Identification Reconciled With Medical Record Observations No new changes were reported by Mona. Her mother indicated that the biggest thing is 'trying to get her to remember to use it'. Chief Complaint(s) Restricts - Objective Objective Measurements Please refer to below for progress towards meeting established OT goals. Short Term Goals 1. Mona will demonstrate improved fine motor coordination of the left hand; this will be evidenced by Mona's ability to complete the Miguelito Hand Function stacking checkers subtest under 20.0 seconds with her non-dominant left hand. = GOAL UPGRADED GOALS MET Actively participated in additional standardized assessments. *MET 02/16/20 Completed the Miguelito Hand Function stacking checkers subtest under 30.0 seconds w/ L hand. *MET 04/01/20= 27.0 sec Transferred x 10 med pom poms w/ tweezers in L hand w/ assist for initial grasp. *MET 04/01/20 Senior Living Goals 1. Mona will be modified independent with execution of home exercise program utilizing provided written and visual instructions with support of her family. 04/01/20 = 50% met 2. Based on verbal family and self-report, Mona will be modified independent with opening of cans within the home with active incorporation of the non-dominant hand utilizing AE and compensatory strategies as needed. 04/01/20= 25% met GOALS MET Mod independent w/ opening of jars w/ active use of L hand based on self-report. *MET - Treatment 5 Descriptor Bimanual coordination. 4 Descriptor Motor planning/dissociation between digits. Wrist dissociation. Dissociation of proximal UE. Tracing of pathway on TT/ horizontal surface w/ isolation of 2nd digit of the L hand (x 2 trials). 2 Descriptor In-hand manipulation. Separation of 2 sides of hand. Translation. Rotation. 1 Descriptor UE motor planning w/ object retrieval to L of body. Exercises 2 Descriptor Digit extension. Therapist assist for positioning of TB on TT w/ exercise. TB #4 resistance. 2 x 10 reps. 1 Descriptor HEP/POC. Reviewed treatment session w/ Mother based on feedback received from Mona. Recommended active utilization of L hand in day- to-day life w/ active participation in various functional tasks. Discussed isolating L hand 2 x a day for 15 min and increasing amount of time as tolerated. Provided pathways to trace w/ isolated 2nd digit of L hand for home practice based on preferences identified by Mona. - Assessment Patient Response to Treatment Excellent Assessment of Improvement Improving functional abilities of the left hand; met 2 short term goals in this area. Upgraded fine motor goal and introduced additional motor task at TT and vertical level( s) w/ isolation of 2nd digit to address fluid motion of UE. Blanchard non use of L upper extremity noted w/ reliance on R UE; discussed approaches to support mass repetitions with active incorporation of the L UE. Continues to bring L UE into curled position w/ gait despite cueing. Outpatient OT is recommended to maximize Mona's success w / active participation in meaningful activities in a variety of environments with active incorporation of non- dominant hand. Recommended activities: functional object manipulation ; fine motor coordination; tool use/manipulation. Home Exercise Program Please refer to treatment section of note for specific details. Reviewed with Patient/Caregiver Home Exercise Program - Plan Therapy Recommendations Continue with Current Program, Advance per Rehabilitation Protocol
--- NOTE | 2020-04-15 16:27 | OT.OP.TRT ---
Visit Care Team Role Provider Type Greg Glaser DO Attending Provider Physician Family Provider Primary Care Provider Referring Provider Specialty: Family Practice Address: [address] [place] [address], [phone] Email: Occupational Therapy Treatment Note OT Outpatient Treatment Note - Adult Start: 02/11/20 16:05 Freq: Status: Active Protocol: Document 04/15/20 16:19 [facility]MS (Rec: 04/15/20 16:27 AMS [id number]) OT Outpatient Adult Treatment Note Session Time Visit Start Time 13:30 Visit Stop Time 14:20 Total Visit Minutes 50 Visit Information Plan of Care Dates 02/11/20-05/05/20 Insurance Information [employer] Setting Treatment Setting Outpatient Care Visit Type Note Type Treatment Note General Information General Information Mona is a R hand dominant 19 year-old female referred to OT secondary to diagnosis of epilepsy. 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 - Subjective Identification Type Name Identification Reconciled With Medical Record Observations No new changes were reported by Mona. Chief Complaint(s) Restricts - Objective Objective Measurements Please refer to below for progress towards meeting established OT goals. Short Term Goals 1. Mona will demonstrate improved fine motor coordination of the left hand; this will be evidenced by Mona's ability to complete the Miguelito Hand Function stacking checkers subtest under 20.0 seconds with her non-dominant left hand. = GOAL UPGRADED GOALS MET Actively participated in additional standardized assessments. *MET 02/16/20 Completed the Miguelito Hand Function stacking checkers subtest under 30.0 seconds w/ L hand. *MET 04/01/20= 27.0 sec Transferred x 10 med pom poms w/ tweezers in L hand w/ assist for initial grasp. *MET 04/01/20 Correction Goals 1. Mona will be modified independent with execution of home exercise program utilizing provided written and visual instructions with support of her family. 04/01/20 = 50% met 2. Based on verbal family and self-report, Mona will be modified independent with opening of cans within the home with active incorporation of the non-dominant hand utilizing AE and compensatory strategies as needed. 04/01/20= 25% met GOALS MET Mod independent w/ opening of jars w/ active use of L hand based on self-report. *MET - Treatment 5 Descriptor Bimanual coordination. 4 Descriptor Motor planning/dissociation between digits. Wrist dissociation. Dissociation of proximal UE. 2 Descriptor In-hand manipulation. Separation of 2 sides of hand. Translation. Rotation. 1 Descriptor UE motor planning w/ object retrieval to L of body. Exercises 2 Descriptor Wrist/digit extension strengthening. 2.2# spherical ball. 2x10. 1 Descriptor HEP/POC. Reviewed treatment session w/ Mother based on feedback received from Mona. Recommended stacking of coins (nickels, quarters, as an advancement from checkers). Recommended active utilization of L hand in day-to-day life w/ active participation in various functional tasks. Discussed isolating L hand 2 x a day for 20 min and increasing amount of time as tolerated. - Assessment Patient Response to Treatment Excellent Assessment of Improvement Upgraded therapeutic exercises /activities on this treatment date; upgraded HEP on this treatment date. Improving success w/ grading of force w/ obj manipulation; recommend continuing to advance these activities. Outpatient OT is recommended to maximize Mona's success w / active participation in meaningful activities in a variety of environments with active incorporation of non- dominant hand. Recommended activities: functional object manipulation ; fine motor coordination; tool use/manipulation. Home Exercise Program Please refer to treatment section of note for specific details. Reviewed with Patient/Caregiver Home Exercise Program - Plan Therapy Recommendations Continue with Current Program, Advance per Rehabilitation Protocol
--- NOTE | 2020-05-06 15:07 | OT.OPPOC ---
Addendum entered and electronically signed by Rhona Martinez OT 05/24/20 07:30: Plan of care should be 07/28/20 versus 07/28/19. Error made by therapist. Original Note: Physical, Occupational & Speech Therapy At [facility] Mona Sales [id number] Mona Sales Visit Care Team Role Provider Type Greg Glaser DO Attending Provider Physician Family Provider Primary Care Provider Referring Provider Address: [address] [place] [address], [id number] Occupational Therapy Plan of Care OT Outpatient Adult Evaluation Start: 02/11/20 16:05 Freq: Status: Active Protocol: Document 02/11/20 16:06 AMS (Rec: 02/11/20 16:51 AMS [id number]) General Information Session Time Visit Start Time 10:30 Visit Stop Time 11:15 Total Visit Minutes 45 Visit Information Plan of Care Dates 02/11/20-05/05/20 Insurance Information [employer] Setting Treatment Setting Outpatient Care Visit Type Note Type Initial Evaluation Range of Motion Shoulder Left Elbow/Forearm ROM WFL Yes Forearm ROM Testing Position Sitting Shoulder Flex AROM (degrees) 0-135 Query Text: Shoulder Abd AROM (degrees) 0-125 Right Elbow/Forearm ROM WFL Yes Forearm ROM Testing Position Sitting Shoulder Flex AROM (degrees) 0-145 Query Text: Shoulder Abd AROM (degrees) 0-130 Wrist Right Active Wrist ROM WFL Yes Wrist Flex AROM (degrees) 0-55 Wrist Ext AROM Fingers Open (degrees) 0-70 Ulnar Deviation AROM (degrees) 0-30 Radial Deviation AROM (degrees) 0-20 Left Active Wrist ROM WFL Yes Wrist ROM Testing Position Sitting Wrist Flex AROM (degrees) 0-55 Wrist Ext AROM Fingers Open (degrees) 0-70 (slight flexion distally of digits) Ulnar Deviation AROM (degrees) 0-30 Radial Deviation AROM (degrees) 0-20 Goals Treatment Treatment Initiated HEP; instructed to work on thumb coordination w/ opposition to each digit pad of the left hand. Also instructed to work on active extension of digits w/ hand resting on flat surface. Short Term Goals Short Term Goals 1. Mona will actively participate in additional standardized fine motor/object manipulation assessments to establish baseline. Mechanical Assembler Goals Skilled Nursing Goals 1. Mona will be modified independent with execution of home exercise program utilizing provided written and visual instructions with support of her family. 2. Based on verbal family and self-report, Mona will be modified independent with opening of jars within the home with active incorporation of the non-dominant hand utilizing AE and compensatory strategies as needed. Assessment/Plan Assessment Treatment Assessment Mona is a R hand dominant 19 year-old female referred to OT secondary to diagnosis of epilepsy. 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 Patient goal: [place] with opening of jars. Evaluation findings: Mona denies pain. She is able to oppose L thumb to 4th digit pad w/ increased effort. Decreased extensor strength of digits of the left hand; slight flexion of digits noted distally with wrist ext. Proximal compensatory strategies to support L UE AROM; (+) leaning against back of chair noted w/ L shoulder ROM. Decreased AROM of L shoulder compared to R shoulder; L elbow and wrist AROM WFL. Decreased strength of B UEs; weaknesses more signficant in L UE compared to R UE. Some weaknesses identified may have been d/t motor planning difficulties versus muscular weaknesses. Other findings include decreased motor planning of the L hand; decreased awareness of UE in space; and decreased funcational abilities. Outpatient OT is recommended to address these areas in order to maximize Mona's success w/ active participation in meaningful activities in a variety of environments with active incorporation of non-dominant hand. Home Exercise Program Please refer to treatment section of note for specific details. Plan Comment 12 weeks Treatment Frequency Once a Week Therapeutic Contents Active Range of Motion, Adaptive Equipment Education, Client Education,Cognitive Skills Development,Functional Activities,Home Exercise Program,Joint Protection, Manual Therapy,Education, Neurodevelopment Treatment, Neuromuscular Re-Education, Self-Care,Stretching/ Flexibility Activities, Therapeutic Activities, Therapeutic Exercises,Sensory Re-education Patient Instruction Home Exercise Program,Plan of Care Sensory Assessment Sensory Profile2 Functional Wrist/Hand Scan Hand Side OT Outpatient Treatment Note - Adult Start: 02/11/20 16:05 Freq: Status: Active Protocol: Document 05/06/20 13:34 AMS (Rec: 05/06/20 15:07 AMS [id number]) OT Outpatient Adult Treatment Note Session Time Visit Start Time 13:30 Visit Stop Time 14:20 Total Visit Minutes 50 Visit Information Plan of Care Dates 05/05/20-07/28/19 Insurance Information [employer] Setting Treatment Setting Outpatient Care Visit Type Note Type Progress Note General Information General Information Mona is a R hand dominant 19 year-old female referred to OT secondary to diagnosis of epilepsy. 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 - Subjective Identification Type Name Identification Reconciled With Medical Record Observations No new changes were reported by Mona. Mona requested making additional OT appointments prior to leaving treatment session. - Objective Objective Measurements Please refer to below for progress towards meeting established OT goals. Short Term Goals 1. Mona will demonstrate improved fine motor coordination of the left hand; this will be evidenced by Mona's ability to complete the Miguelito Hand Function stacking checkers subtest under 10.0 seconds with her non-dominant left hand. = GOAL UPGRADED; completed subtest in 13.7 sec w/ L hand on 05/06/20 2. Mona will demonstrate improved fine motor coordination of the left hand; this will be evidenced by Mona's ability to complete the Miguelito Hand Function Small Objects subtest under 12.0 seconds with her non-dominant left hand. 05/06/20= NEW GOAL GOALS MET Actively participated in additional standardized assessments. *MET 02/16/20 Completed the Miguelito Hand Function stacking checkers subtest under 30.0 seconds w/ L hand. *MET 04/01/20= 27.0 sec Transferred x 10 med pom poms w/ tweezers in L hand w/ assist for initial grasp. *MET 04/01/20 Completd the Miguelito Hand Function stacking checkers subtest under 20.0 seconds w/ L hand. *MET 05/06/20 Skilled Nursing Goals 1. Mona will be modified independent with execution of home exercise program utilizing provided written and visual instructions with support of her family. = 50% met 2. Based on verbal family and self-report, Mona will be modified independent with opening of cans within the home with active incorporation of the non-dominant hand utilizing AE and compensatory strategies as needed. 05/06/20 = 25% met GOALS MET Mod independent w/ opening of jars w/ active use of L hand based on self-report. *MET - Treatment 7 Descriptor Meaningful activities. Put-put golf. 6 Descriptor Fine motor planning. 5 Descriptor Bimanual coordination. 4 Descriptor Motor planning/dissociation between digits. 2 Descriptor In-hand manipulation. Separation of 2 sides of hand. Translation. Rotation. 1 Descriptor UE motor planning w/ obj retrieval to L of body. Exercises 3 Descriptor Resistant clothespins to the left of body. 2 Descriptor Wrist/digit extension strengthening. 2.2# spherical ball. 2x10. 1 Descriptor HEP/POC. Mona initiated scheduling additional treatment sessions for outpatient OT. Discussed options to continue to support functional independence w/ Grandfather per Mona's request. Schedule printout was provided by lockstitch front edge tape sewer staff to Mona. - Assessment Assessment of Improvement Mona has made progress over the last certification period relative to functional abilities of the left hand. She has demonstrated improvements in fine motor coordination, object manipulation abilities, eye- hand coordination, neuro retraining, and smoothness with motor planning of the UE. This is evidenced by Mona meeting goals in these areas, including ability to manage jars with active incorporation of the left hand. Therapist upgraded goals on this date; therapist upgraded difficulty of activities w/ increased focus to the left side of the body w/ object manipulation. Therapist explored meaningful activities on this date; will need to explore further to support carry-over into her functional environment. Continued Outpatient OT is recommended to maximize Mona 's success w/ active participation in meaningful activities in a variety of environments with active incorporation of the non- dominant hand. Recommended activities: functional object manipulation ; fine motor coordination; tool use/manipulation. Home Exercise Program Please refer to treatment section of note for specific details. Reviewed with Patient/Caregiver Home Exercise Program - Plan Therapy Recommendations Continue with Current Program, Advance per Rehabilitation Protocol Comment 12 weeks Frequency of Treatment Once a Week Therapeutic Contents Active Range of Motion, Adaptive Equipment Education, Client Education,Cognitive Skills Development,Functional Activities,Home Exercise Program,Joint Protection, Manual Therapy,Education, Neurodevelopment Treatment, Neuromuscular Re-Education, Self-Care,Therapeutic Activities,Therapeutic Exercises,Sensory Re-education Electronically Signed by: Rhona Martinez, OT 05/06/20 1190 Please Sign and Return: I have reviewed this Plan of Care and certify that the skilled therapy services above are required to meet the patient?s needs. Physician Signature Date Printed Name and Credentials Clinical Instructor Signature Printed Name and Credentials
--- NOTE | 2020-05-13 15:32 | OT.OP.TRT ---
Visit Care Team Role Provider Type Greg Glaser DO Attending Provider Physician Family Provider Primary Care Provider Referring Provider Specialty: Family Practice Address: [address] [place] [address], [id number] Email: Occupational Therapy Treatment Note OT Outpatient Treatment Note - Adult Start: 02/11/20 16:05 Freq: Status: Active Protocol: Document 05/13/20 15:26 AMS (Rec: 05/13/20 15:32 AMS [id number]) OT Outpatient Adult Treatment Note Session Time Visit Start Time 14:35 Visit Stop Time 15:20 Total Visit Minutes 45 Visit Information Plan of Care Dates 05/05/20-07/28/19 Insurance Information [employer] Setting Treatment Setting Outpatient Care Visit Type Note Type Treatment Note General Information General Information Mona is a R hand dominant 19 year-old female referred to OT secondary to diagnosis of epilepsy. 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 - Subjective Identification Type Name Identification Reconciled With Medical Record Observations No new changes were reported by Mona. - Objective Objective Measurements Please refer to below for progress towards meeting established OT goals. Short Term Goals 1. Mona will demonstrate improved fine motor coordination of the left hand; this will be evidenced by Mona's ability to complete the Miguelito Hand Function stacking checkers subtest under 10.0 seconds with her non-dominant left hand. = completed subtest in 13.7 sec w/ L hand on 05/06/20 2. Mona will demonstrate improved fine motor coordination of the left hand; this will be evidenced by Mona's ability to complete the Miguelito Hand Function Small Objects subtest under 12.0 seconds with her non-dominant left hand. 05/06/20= 25% met GOALS MET Actively participated in additional standardized assessments. *MET 02/16/20 Completed the Miguelito Hand Function stacking checkers subtest under 30.0 seconds w/ L hand. *MET 04/01/20= 27.0 sec Transferred x 10 med pom poms w/ tweezers in L hand w/ assist for initial grasp. *MET 04/01/20 Completd the Miguelito Hand Function stacking checkers subtest under 20.0 seconds w/ L hand. *MET 05/06/20 [facility] Goals 1. Mona will be modified independent with execution of home exercise program utilizing provided written and visual instructions with support of her family. 05/13/20 = 50% met 2. Based on verbal family and self-report, Mona will be modified independent with opening of cans within the home with active incorporation of the non-dominant hand utilizing AE and compensatory strategies as needed. 05/06/20 = 25% met GOALS MET Mod independent w/ opening of jars w/ active use of L hand based on self-report. *MET - Treatment 7 Descriptor Meaningful activities. Put-put golf. 6 Descriptor Fine motor planning. 5 Descriptor Bimanual coordination. 4 Descriptor Motor planning/dissociation between digits. 1 Descriptor UE motor planning w/ obj retrieval to L of body. Exercises 3 Descriptor Resistant clothespins to the left of body. 2 Descriptor Wrist/digit extension strengthening. 3# DB. 3 x 10. 1 Descriptor HEP/POC. Reviewed treatment session w/ Mona's Mother. Recommended increased focused use of L UE/hand for at least 25 minutes per day. - Assessment Assessment of Improvement Increasing dynamic nature of L UE eye-hand coordination activities. Decreased awareness of L UE in space; decreased motor planning of the L UE in space. Decreased visual attention to L body of space. Continued outpatient OT is recommended to maximize Mona 's success w/ active participation in meaningful activities in a variety of environments with active incorporation of the non- dominant hand. Recommended activities: functional object manipulation ; fine motor coordination; tool use/manipulation. Home Exercise Program Please refer to treatment section of note for specific details. Reviewed with Patient/Caregiver Home Exercise Program - Plan Therapy Recommendations Continue with Current Program, Advance per Rehabilitation Protocol
--- NOTE | 2020-05-24 14:24 | OT.OP.TRT ---
Visit Care Team Role Provider Type Greg Glaser DO Attending Provider Physician Family Provider Primary Care Provider Referring Provider Specialty: Family Practice Address: [address] [place] [address], [id number] Email: Occupational Therapy Treatment Note OT Outpatient Treatment Note - Adult Start: 02/11/20 16:05 Freq: Status: Active Protocol: Document 05/24/20 13:27 AMS (Rec: 05/24/20 13:32 AMS [id number]) OT Outpatient Adult Treatment Note Session Time Visit Start Time 10:30 Visit Stop Time 11:20 Total Visit Minutes 50 Visit Information Plan of Care Dates 05/05/20-07/28/20 Insurance Information [employer] Setting Treatment Setting Outpatient Care Visit Type Note Type Treatment Note General Information General Information Mona is a R hand dominant 19 year-old female referred to OT secondary to diagnosis of epilepsy. 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 - Subjective Identification Type Name Identification Reconciled With Medical Record Observations No new changes were reported by Mona. I had just 1 cup per Mona when therapist inquired about number of cups of coffee. - Objective Objective Measurements Please refer to below for progress towards meeting established OT goals. Short Term Goals 1. Mona will demonstrate improved fine motor coordination of the left hand; this will be evidenced by Mona's ability to complete the Migueltio Hand Function stacking checkers subtest under 10.0 seconds with her non-dominant left hand. = completed subtest in 13.7 sec w/ L hand on 05/06/20 2. Mona will demonstrate improved fine motor coordination of the left hand; this will be evidenced by Mona's ability to complete the Miguelito Hand Function Small Objects subtest under 12.0 seconds with her non-dominant left hand. 05/06/20= 25% met GOALS MET Actively participated in additional standardized assessments. *MET 02/16/20 Completed the Miguelito Hand Function stacking checkers subtest under 30.0 seconds w/ L hand. *MET 04/01/20= 27.0 sec Transferred x 10 med pom poms w/ tweezers in L hand w/ assist for initial grasp. *MET 04/01/20 Completd the Miguelito Hand Function stacking checkers subtest under 20.0 seconds w/ L hand. *MET 05/06/20 [employer] Reading [employer] Goals 1. Mona will be modified independent with execution of home exercise program utilizing provided written and visual instructions with support of her family. = 50% met 2. Based on verbal family and self-report, Mona will be modified independent with opening of cans within the home with active incorporation of the non-dominant hand utilizing AE and compensatory strategies as needed. 05/06/20 = 25% met GOALS MET Mod independent w/ opening of jars w/ active use of L hand based on self-report. *MET - Treatment 7 Descriptor Eye-hand coordination. 1-handed toss and serve. Balloon volleyball w/ noodle. Balloon volleyball w/ spoon. 6 Descriptor Fine motor planning. 5 Descriptor Bimanual coordination. 4 Descriptor Motor planning/dissociation between digits. 1 Descriptor UE motor planning Exercises 3 Descriptor Resistant clothespins to the left of body. 2 Descriptor Wrist/digit extension strengthening. 3# DB. 3 x 10. 1 Descriptor HEP/POC. Requested that Mona review treatment session w/ Grandmother and Grandfather; she agreed to on this date. - Assessment Assessment of Improvement Increasing dynamic nature of L UE eye-hand coordination activities; decreased in-hand manipulation abilities of the left hand. Decreased ability to separate the 2 sides of the hand; max difficulty w/ translation, shift and rotation of objects w/ the left hand. Reported compliance of at least utilizing the left hand in day-to-day life for 25 minutes+ based on patient self-report. Continued outpatient OT is recommended to maximize Mona 's success w/ active participation in meaningful activities in a variety of environments with active incorporation of the non- dominant hand. Recommended activities: functional object manipulation ; fine motor coordination; tool use/manipulation. Home Exercise Program Please refer to treatment section of note for specific details. Reviewed with Patient/Caregiver Home Exercise Program - Plan Therapy Recommendations Continue with Current Program, Advance per Rehabilitation Protocol
--- NOTE | 2020-05-30 13:27 | OT.OP.TRT ---
Visit Care Team Role Provider Type Greg Glaser DO Attending Provider Physician Family Provider Primary Care Provider Referring Provider Specialty: Family Practice Address: [address] [place] [address], [id number] Email: Occupational Therapy Treatment Note OT Outpatient Treatment Note - Adult Start: 02/11/20 16:05 Freq: Status: Active Protocol: Document 05/30/20 13:19 AMS (Rec: 05/30/20 13:27 AMS [id number]) OT Outpatient Adult Treatment Note Session Time Visit Start Time 12:35 Visit Stop Time 13:20 Total Visit Minutes 45 Visit Information Plan of Care Dates 05/05/20-07/28/20 Insurance Information [employer] Setting Treatment Setting Outpatient Care Visit Type Note Type Treatment Note General Information General Information Mona is a R hand dominant 19 year-old female referred to OT secondary to diagnosis of epilepsy. 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 - Subjective Identification Type Name Identification Reconciled With Medical Record Observations No new changes were reported by Mona. - Objective Objective Measurements Please refer to below for progress towards meeting established OT goals. Short Term Goals 1. Mona will demonstrate improved fine motor coordination of the left hand; this will be evidenced by Mona's ability to complete the Miguelito Hand Function stacking checkers subtest under 10.0 seconds with her non-dominant left hand. = completed subtest in 13.7 sec w/ L hand on 05/06/20 2. Mona will demonstrate improved fine motor coordination of the left hand; this will be evidenced by Mona's ability to complete the Miguelito Hand Function Small Objects subtest under 12.0 seconds with her non-dominant left hand. 05/06/20= 25% met GOALS MET Actively participated in additional standardized assessments. *MET 02/16/20 Completed the Miguelito Hand Function stacking checkers subtest under 30.0 seconds w/ L hand. *MET 04/01/20= 27.0 sec Transferred x 10 med pom poms w/ tweezers in L hand w/ assist for initial grasp. *MET 04/01/20 Completd the Miguelito Hand Function stacking checkers subtest under 20.0 seconds w/ L hand. *MET 05/06/20 Care Home Goals 1. Mona will be modified independent with execution of home exercise program utilizing provided written and visual instructions with support of her family. = 50% met 2. Based on verbal family and self-report, Mona will be modified independent with opening of cans within the home with active incorporation of the non-dominant hand utilizing AE and compensatory strategies as needed. 05/06/20 = 25% met GOALS MET Mod independent w/ opening of jars w/ active use of L hand based on self-report. *MET - Treatment 7 Descriptor Eye-hand coordination. 1-handed toss and serve 5-inch ball. 6 Descriptor Fine motor planning. 5 Descriptor Bimanual coordination. 4 Descriptor Motor planning/dissociation between digits. Exercises 6 Descriptor Wrist UD/RD. Palm flat on TT. 1x10. 5 Descriptor Extension of digits. Palm TT. 1x10. Hyperextension of digits. Palm TT. 1x10. 4 Descriptor UEB. x 5 minutes. 3 Descriptor Resistant clothespins to the left of body. 2 Descriptor Wrist/digit extension strengthening. 3# DB. 3 x 10. 1 Descriptor HEP/POC. Recomm - Assessment Assessment of Improvement Decreased in-hand coordination of the L hand. Decreased ability to dissociate hand from proximal arm; attempt to dissociate wrist movements from proximal upper extremity. Decreased grading of force with object manipulation of the left hand. Need to continue to work on small object manipulation. Continued outpatient OT is recommended to maximize Mona 's success w/ active participation in meaningful activities in a variety of environments with active incorporation of the non- dominant hand. Recommended activities: functional object manipulation ; fine motor coordination; tool use/manipulation. Home Exercise Program Please refer to treatment section of note for specific details. Reviewed with Patient/Caregiver Home Exercise Program - Plan Therapy Recommendations Continue with Current Program, Advance per Rehabilitation Protocol
--- NOTE | 2020-06-17 13:26 | OT.OP.TRT ---
Visit Care Team Role Provider Type Greg Glaser DO Attending Provider Physician Family Provider Primary Care Provider Referring Provider Specialty: Family Practice Address: [address] [place] [address], [id number] Email: Occupational Therapy Treatment Note OT Outpatient Treatment Note - Adult Start: 02/11/20 16:05 Freq: Status: Active Protocol: Document 06/17/20 12:27 [facility] (Rec: 06/17/20 13:25 [facility] [id number]) OT Outpatient Adult Treatment Note Session Time Visit Start Time 12:30 Visit Stop Time 13:15 Total Visit Minutes 45 Visit Information Plan of Care Dates 05/05/20-07/28/20 Insurance Information [employer] Setting Treatment Setting Outpatient Care Visit Type Note Type Treatment Note General Information General Information Mona is a R hand dominant 19 year-old female referred to OT secondary to diagnosis of epilepsy. 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 - Subjective Identification Type Name Identification Reconciled With Medical Record Observations No new changes were reported by Mona. We haven't been cooking per Mona. - Objective Objective Measurements Please refer to below for progress towards meeting established OT goals. Short Term Goals 1. Mona will demonstrate improved fine motor coordination of the left hand; this will be evidenced by Mona's ability to complete the Miguelito Hand Function stacking checkers subtest under 10.0 seconds with her non-dominant left hand. = completed subtest in 13.7 sec w/ L hand on 05/06/20 2. Mona will demonstrate improved fine motor coordination of the left hand; this will be evidenced by Mona's ability to complete the Miguelito Hand Function Small Objects subtest under 12.0 seconds with her non-dominant left hand. 05/06/20= 25% met GOALS MET Actively participated in additional standardized assessments. *MET 02/16/20 Completed the Miguelito Hand Function stacking checkers subtest under 30.0 seconds w/ L hand. *MET 04/01/20= 27.0 sec Transferred x 10 med pom poms w/ tweezers in L hand w/ assist for initial grasp. *MET 04/01/20 Completd the Miguelito Hand Function stacking checkers subtest under 20.0 seconds w/ L hand. *MET 05/06/20 Group Home Goals 1. Mona will be modified independent with execution of home exercise program utilizing provided written and visual instructions with support of her family. = 50% met 2. Based on verbal family and self-report, Mona will be modified independent with opening of cans within the home with active incorporation of the non-dominant hand utilizing AE and compensatory strategies as needed. 06/17/20 = 25% met; 'We haven't been cooking much' per Mona GOALS MET Mod independent w/ opening of jars w/ active use of L hand based on self-report. *MET - Treatment 7 Descriptor Eye-hand coordination. 1-handed toss and serve 5-inch ball. 6 Descriptor Fine motor planning. 5 Descriptor Bimanual coordination. 4 Descriptor Motor planning/dissociation between digits. Exercises 6 Descriptor Wrist UD/RD. Palm flat on TT. 1x10. 5 Descriptor Extension of digits. 2x10. 2 rubberbands. 4.4# spherical ball overhand toss L hand. 1x10. 4 Descriptor UEB. x 5 minutes. 1 Descriptor HEP/POC. Rec continued incorporation of the L UE in day-to-day life. - Assessment Assessment of Improvement Focus of treatment session on obj manipulation to L of body (various sized objects) and grading of force/digits w/ small object manipulation. Decreased in-hand coordination of L hand; difficulty w/ translation of small objects from palm --> fingertips. Decreased grading of force with object manipulation w/ L hand. Continued outpatient OT is recommended to maximize Mona 's success w/ active participation in meaningful activities in a variety of environments with active incorporation of the non- dominant hand. PLAN: FM; small obj manipulation; functional tasks; attention to left side of space Home Exercise Program Please refer to treatment section of note for specific details. Reviewed with Patient/Caregiver Home Exercise Program - Plan Therapy Recommendations Continue with Current Program, Advance per Rehabilitation Protocol
--- NOTE | 2020-06-24 13:34 | OT.OP.TRT ---
Visit Care Team Role Provider Type Greg Glaser DO Attending Provider Physician Family Provider Primary Care Provider Referring Provider Specialty: Family Practice Address: [address] [place] [address], [phone] Email: Occupational Therapy Treatment Note OT Outpatient Treatment Note - Adult Start: 02/11/20 16:05 Freq: Status: Active Protocol: Document 06/24/20 13:17 [facility] (Rec: 06/24/20 13:34 [facility] [id number]) OT Outpatient Adult Treatment Note Session Time Visit Start Time 12:30 Visit Stop Time 13:15 Total Visit Minutes 45 Visit Information Plan of Care Dates 05/05/20-07/28/20 Insurance Information [employer] Setting Treatment Setting Outpatient Care Visit Type Note Type Treatment Note General Information General Information Mona is a R hand dominant 19 year-old female referred to OT secondary to diagnosis of epilepsy. 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 - Subjective Identification Type Name Identification Reconciled With Medical Record Observations No new changes were reported by Mona. I just woke up per Mona. - Objective Objective Measurements Please refer to below for progress towards meeting established OT goals. Short Term Goals 1. Mona will demonstrate improved fine motor coordination of the left hand; this will be evidenced by Mona's ability to complete the Miguelito Hand Function stacking checkers subtest under 10.0 seconds with her non-dominant left hand. = completed subtest in 13.7 sec w/ L hand on 05/06/20 2. Mona will demonstrate improved fine motor coordination of the left hand; this will be evidenced by Mona's ability to complete the Miguelito Hand Function Small Objects subtest under 12.0 seconds with her non-dominant left hand. 05/06/20= 25% met GOALS MET Actively participated in additional standardized assessments. *MET 02/16/20 Completed the Miguelito Hand Function stacking checkers subtest under 30.0 seconds w/ L hand. *MET 04/01/20= 27.0 sec Transferred x 10 med pom poms w/ tweezers in L hand w/ assist for initial grasp. *MET 04/01/20 Completd the Miguelito Hand Function stacking checkers subtest under 20.0 seconds w/ L hand. *MET 05/06/20 Executive Creative Director Goals 1. Mona will be modified independent with execution of home exercise program utilizing provided written and visual instructions with support of her family. = 50% met 2. Based on verbal family and self-report, Mona will be modified independent with opening of cans within the home with active incorporation of the non-dominant hand utilizing AE and compensatory strategies as needed. 06/17/20 = 25% met; 'We haven't been cooking much' per Mona GOALS MET Mod independent w/ opening of jars w/ active use of L hand based on self-report. *MET - Treatment 7 Descriptor Eye-hand coordination. 1-handed toss and serve 5-inch ball. 6 Descriptor Fine motor planning. 5 Descriptor Bimanual coordination. 4 Descriptor Motor planning/dissociation between digits. Exercises 6 Descriptor Wrist UD/RD. Palm flat on TT. 1x10. 5 Descriptor Extension of digits. 2x10. 2 rubberbands. 4.4# spherical ball overhand toss L hand. 1x10. 4 Descriptor UEB. x 5 minutes. 3 Descriptor Shoulder strengthening. L sh abduction. 2# DB. 2x10. L sh press. 1# DB. 2x10. 1 Descriptor HEP/POC. Rec continued incorporation of the L UE in day-to-day life. - Assessment Assessment of Improvement Initiated L UE shoulder strengthening exercises to support activity tolerance and functional incorporation of L UE in day-to-day life. Recommend completing exercises bilaterally given tendency towards prox trunk compensatory strategies d/t L sh weakness primarily observed w/ shoulder press. Recommend considering alternative sitting surface via mat to encourage engagement of core/ discourage R leaning. Decreased in-hand coordination of L hand. Decreased grading of force with object manipulation w/ L hand. Therapist continues to incorporate functional tasks ( e.g., management of kitchen items) as able. Continued outpatient OT is recommended to maximize Mona 's success w/ active participation in meaningful activities in a variety of environments with active incorporation of the non- dominant hand. PLAN: FM; small obj manipulation; functional tasks; attention to left side of space; UE strengthening. Home Exercise Program Please refer to treatment section of note for specific details. Reviewed with Patient/Caregiver Home Exercise Program - Plan Therapy Recommendations Continue with Current Program, Advance per Rehabilitation Protocol
--- NOTE | 2020-06-29 11:38 | OT.OP.TRT ---
Visit Care Team Role Provider Type Greg Glaser DO Attending Provider Physician Family Provider Primary Care Provider Referring Provider Specialty: Family Practice Address: [address] [place] [address], [id number] Email: Occupational Therapy Treatment Note OT Outpatient Treatment Note - Adult Start: 02/11/20 16:05 Freq: Status: Active Protocol: Document 06/29/20 11:23 AMS (Rec: 06/29/20 11:38 AMS [id number]) OT Outpatient Adult Treatment Note Session Time Visit Start Time 10:30 Visit Stop Time 11:15 Total Visit Minutes 45 Visit Information Plan of Care Dates 05/05/20-07/28/20 Insurance Information [employer] Setting Treatment Setting Outpatient Care Visit Type Note Type Treatment Note General Information General Information Mona is a R hand dominant 19 year-old female referred to OT secondary to diagnosis of epilepsy. 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 - Subjective Identification Type Name Identification Reconciled With Medical Record Observations No new changes were reported by Mona. - Objective Objective Measurements Please refer to below for progress towards meeting established OT goals. Short Term Goals 1. Mona will demonstrate improved fine motor coordination of the left hand; this will be evidenced by Mona's ability to complete the Miguelito Hand Function stacking checkers subtest under 10.0 seconds with her non-dominant left hand. = completed subtest in 13.7 sec w/ L hand on 05/06/20 2. Mona will demonstrate improved fine motor coordination of the left hand; this will be evidenced by Mona's ability to complete the Miguelito Hand Function Small Objects subtest under 12.0 seconds with her non-dominant left hand. 05/06/20= 25% met GOALS MET Actively participated in additional standardized assessments. *MET 02/16/20 Completed the Miguelito Hand Function stacking checkers subtest under 30.0 seconds w/ L hand. *MET 04/01/20= 27.0 sec Transferred x 10 med pom poms w/ tweezers in L hand w/ assist for initial grasp. *MET 04/01/20 Completd the Miguelito Hand Function stacking checkers subtest under 20.0 seconds w/ L hand. *MET 05/06/20 Penitentiary Goals 1. Mona will be modified independent with execution of home exercise program utilizing provided written and visual instructions with support of her family. = 50% met 2. Based on verbal family and self-report, Mona will be modified independent with opening of cans within the home with active incorporation of the non-dominant hand utilizing AE and compensatory strategies as needed. 06/17/20 = 25% met; 'We haven't been cooking much' per Mona 3. Mona will present with improved L shoulder strength which will support functional incorporation of the left upper extremity. 4/5 MMT for left shoulder flexion; 4/5 MMT for left shoulder external rotation; 4/5 MMT for left shoulder abduction/adduction. 06/29/20= NEW GOAL GOALS MET Mod independent w/ opening of jars w/ active use of L hand based on self-report. *MET - Treatment 7 Descriptor Eye-hand coordination. 1-handed toss and serve 3 and 1/2-inch ball. 6 Descriptor Fine motor planning. 5 Descriptor Bimanual coordination. 4 Descriptor Motor planning/Neuro Re- education. Isolated wrist movements w/ forearm in pronation and elbow extended. Wrist flex/ext. Wrist UD/RD. Wrist circles. 1x10. Isolated wrist movement w/ forearm in neutral. Wrist UD/ RD. 1x10. Unilateral/bilateral distal UE motor imitation. Exercises 4 Descriptor UEB. x 5 minutes. 3 Descriptor Shoulder strengthening. B sh abduction/snow angels. Seated. 1# DB. 2x10. B sh press. Seated. 1# DB. 2x10. B chest press. Seated. 1# DB. 2x10. B punches. Seated. 1# DB. 2x10 . 1 Descriptor HEP/POC. Rec continued incorporation of the L UE in day-to-day life. - Assessment Assessment of Improvement Initiated B UE strengthening exercises in chair; decreased leaning to R given completion of exercises bilaterally. However, tendency towards trunk extension. Will need to made accomodation at trunk/ core level to discourage this compensatory pattern. Decreased in-hand coordination of L hand. Decreased grading of force with object manipulation w/ L hand. Focus on dissociation between wrist and proximal L UE; increased success w/ repetitions w/ isolation of wrist movements. Will need to explore further and progress as able. Continued outpatient OT is recommended to maximize Mona 's success w/ active participation in meaningful activities in a variety of environments with active incorporation of the non- dominant hand. PLAN: FM; small obj manipulation; functional tasks; attention to left side of space; UE strengthening. Home Exercise Program Please refer to treatment section of note for specific details. Reviewed with Patient/Caregiver Home Exercise Program - Plan Therapy Recommendations Continue with Current Program, Advance per Rehabilitation Protocol
--- NOTE | 2020-07-25 13:26 | OT.OP.TRT ---
Visit Care Team Role Provider Type Greg Glaser DO Attending Provider Physician Family Provider Primary Care Provider Referring Provider Specialty: Family Practice Address: [address] [place] [address], [id number] Email: Occupational Therapy Treatment Note OT Outpatient Treatment Note - Adult Start: 02/11/20 16:05 Freq: Status: Active Protocol: Document 07/25/20 13:18 [facility] (Rec: 07/25/20 13:26 [facility] [id number]) OT Outpatient Adult Treatment Note Session Time Visit Start Time 12:30 Visit Stop Time 13:15 Total Visit Minutes 45 Visit Information Plan of Care Dates 05/05/20-07/28/20 Insurance Information [employer] Setting Treatment Setting Outpatient Care Visit Type Note Type Treatment Note General Information General Information Mona is a R hand dominant 19 year-old female referred to OT secondary to diagnosis of epilepsy. 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 - Subjective Identification Type Name Identification Reconciled With Medical Record Observations Mona indicated that she has been doing laundry and the left hand has been assisting. - Objective Objective Measurements Please refer to below for progress towards meeting established OT goals. Short Term Goals 1. Mona will demonstrate improved fine motor coordination of the left hand; this will be evidenced by Mona's ability to complete the Miguelito Hand Function stacking checkers subtest under 10.0 seconds with her non-dominant left hand. = completed subtest in 13.7 sec w/ L hand on 05/06/20 2. Mona will demonstrate improved fine motor coordination of the left hand; this will be evidenced by Mona's ability to complete the Miguelito Hand Function Small Objects subtest under 12.0 seconds with her non-dominant left hand. 05/06/20= 25% met GOALS MET Actively participated in additional standardized assessments. *MET 02/16/20 Completed the Miguelito Hand Function stacking checkers subtest under 30.0 seconds w/ L hand. *MET 04/01/20= 27.0 sec Transferred x 10 med pom poms w/ tweezers in L hand w/ assist for initial grasp. *MET 04/01/20 Completd the Miguelito Hand Function stacking checkers subtest under 20.0 seconds w/ L hand. *MET 05/06/20 Seaming Inspector Goals 1. Mona will be modified independent with execution of home exercise program utilizing provided written and visual instructions with support of her family. 07/25/20 = 50% met 2. Based on verbal family and self-report, Mona will be modified independent with opening of cans within the home with active incorporation of the non-dominant hand utilizing AE and compensatory strategies as needed. 06/17/20 = 25% met; 'We haven't been cooking much' per Mona 3. Mona will present with improved L shoulder strength which will support functional incorporation of the left upper extremity. 4/5 MMT for left shoulder flexion; 4/5 MMT for left shoulder external rotation; 4/5 MMT for left shoulder abduction/adduction. GOALS MET Mod independent w/ opening of jars w/ active use of L hand based on self-report. *MET - Treatment 7 Descriptor Eye-hand coordination. 1-handed toss and serve 3 and 1/2-inch ball. 6 Descriptor Fine motor planning. Rose Marie stack. Small pegs for white pegboard; small pegs for yellow pegboard. 5 Descriptor Bimanual coordination. 4 Descriptor Motor planning/Neuro Re- education. Isolated wrist movements w/ forearm in pronation and elbow extended. Wrist flex/ext. Wrist UD/RD. Wrist circles. 1x10. Isolated wrist movement w/ forearm in neutral. Wrist UD/ RD. 1x10. Unilateral/bilateral distal UE motor imitation. Exercises 4 Descriptor UEB. x 5 minutes. 3 Descriptor Shoulder strengthening. B sh abduction/snow angels. Seated. 1# DB. 2x10. B sh press. Seated. 1# DB. 2x10. B chest press. Seated. 1# DB. 2x10. B punches. Seated. 1# DB. 2x10 . 1 Descriptor HEP/POC. Rec continued incorporation of the L UE in day-to-day life. - Assessment Assessment of Improvement Incorporated smaller objects for manipulation w/ left hand (transferring from TT to location). Worked on separation of the 2 sides of the hand w/ small peg object manipulation (removal from yellow pegboard w/ requirement of retrieval of 3 small pegs) . Decreased ability to grade force w/ object manipulation. Impaired motor planning of the left upper extremity; decreased success w/ retrieval of an object between other objects (moveable versus fixed ). Impaired in-hand manipulation skills. Continued outpatient OT is recommended to maximize Mona's success w / active participation in meaningful activities in a variety of environments with active incorporation of the non-dominant hand. PLAN: FM; small obj manipulation; functional tasks; attention to left side of space; UE strengthening. Recommend re- assessing progress at time of next treatment session. Home Exercise Program Please refer to treatment section of note for specific details. Reviewed with Patient/Caregiver Home Exercise Program - Plan Therapy Recommendations Continue with Current Program, Advance per Rehabilitation Protocol
--- NOTE | 2020-08-15 15:46 | OT.OPPN ---
Current Diagnoses Epilepsy, unspecified, not intractable, without status epilepticus (08/15/20) Other lack of coordination (08/15/20) Contusion of right elbow, initial encounter (08/15/20) Documentation OT Outpatient Adult Evaluation Start: 02/11/20 16:05 Freq: Status: Active Protocol: Document 02/11/20 16:06 AMS (Rec: 02/11/20 16:51 AMS [id number]) General Information Session Time Visit Start Time 10:30 Visit Stop Time 11:15 Total Visit Minutes 45 Visit Information Plan of Care Dates 02/11/20-05/05/20 Insurance Information [employer] Setting Treatment Setting Outpatient Care Visit Type Note Type Initial Evaluation Range of Motion Shoulder Left Elbow/Forearm ROM WFL Yes Forearm ROM Testing Position Sitting Shoulder Flex AROM (degrees) 0-135 Shoulder Abd AROM (degrees) 0-125 Right Elbow/Forearm ROM WFL Yes Forearm ROM Testing Position Sitting Shoulder Flex AROM (degrees) 0-145 Shoulder Abd AROM (degrees) 0-130 Wrist Right Active Wrist ROM WFL Yes Wrist Flex AROM (degrees) 0-55 Wrist Ext AROM Fingers Open (degrees) 0-70 Ulnar Deviation AROM (degrees) 0-30 Radial Deviation AROM (degrees) 0-20 Left Active Wrist ROM WFL Yes Wrist ROM Testing Position Sitting Wrist Flex AROM (degrees) 0-55 Wrist Ext AROM Fingers Open (degrees) 0-70 (slight flexion distally of digits) Ulnar Deviation AROM (degrees) 0-30 Radial Deviation AROM (degrees) 0-20 Goals Treatment Treatment Initiated HEP; instructed to work on thumb coordination w/ opposition to each digit pad of the left hand. Also instructed to work on active extension of digits w/ hand resting on flat surface. Short Term Goals Short Term Goals 1. Mona will actively participate in additional standardized fine motor/object manipulation assessments to establish baseline. Deadener Goals Skilled Nursing Goals 1. Mona will be modified independent with execution of home exercise program utilizing provided written and visual instructions with support of her family. 2. Based on verbal family and self-report, Mona will be modified independent with opening of jars within the home with active incorporation of the non-dominant hand utilizing AE and compensatory strategies as needed. Assessment/Plan Assessment Treatment Assessment Mona is a R hand dominant 19 year-old female referred to OT secondary to diagnosis of epilepsy. 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 Patient goal: [place] with opening of jars. Evaluation findings: Mona denies pain. She is able to oppose L thumb to 4th digit pad w/ increased effort. Decreased extensor strength of digits of the left hand; slight flexion of digits noted distally with wrist ext. Proximal compensatory strategies to support L UE AROM; (+) leaning against back of chair noted w/ L shoulder ROM. Decreased AROM of L shoulder compared to R shoulder; L elbow and wrist AROM WFL. Decreased strength of B UEs; weaknesses more signficant in L UE compared to R UE. Some weaknesses identified may have been d/t motor planning difficulties versus muscular weaknesses. Other findings include decreased motor planning of the L hand; decreased awareness of UE in space; and decreased funcational abilities. Outpatient OT is recommended to address these areas in order to maximize Mona's success w/ active participation in meaningful activities in a variety of environments with active incorporation of non-dominant hand. Home Exercise Program Please refer to treatment section of note for specific details. Plan Comment 12 weeks Treatment Frequency Once a Week Therapeutic Contents Active Range of Motion, Adaptive Equipment Education, Client Education,Cognitive Skills Development,Functional Activities,Home Exercise Program,Joint Protection, Manual Therapy,Education, Neurodevelopment Treatment, Neuromuscular Re-Education, Self-Care,Stretching/ Flexibility Activities, Therapeutic Activities, Therapeutic Exercises,Sensory Re-education Patient Instruction Home Exercise Program,Plan of Care Sensory Assessment Sensory Profile2 Functional Wrist/Hand Scan Hand Side OT Outpatient Standardized Assessments Start: 02/11/20 16:05 Freq: Status: Active Protocol: Document 08/15/20 15:32 AMS (Rec: 08/15/20 15:46 [facility] [id number]) Jebsen-Trudy Hand Function Test Date of Test Date of Test 02/16/20 Writing Non-Dominant Hand Not Tested Dominant Hand Not Tested Lifting Small, Common Objects Non-Dominant Hand 41.8 seconds Dominant Hand 14.9 seconds Comments Norms for 20 to 59 year-old women Non-dominant hand: 6.0 +/- 1. 0 sec; 10+ SD above the mean Dominant hand: 5.5 +/- 0.8 sec; > 3 SD above the mean Simulated Feeding Non-Dominant Hand Not Tested Dominant Hand Not Tested Stacking Checkers Non-Dominant Hand 37.7 seconds Dominant Hand 5.1 seconds Comments Norms for 20 to 59 year-old women Non-dominant hand: Re- administered 05/06/20= completed in 13.4 sec w/ L hand. > 13 SD above the mean. Re-administered 04/01/20= completed in 27.0 sec w/ L hand. Norms = 3.8 +/- 0.7 sec; 15+ SD above the mean Dominant hand: 3.3 +/- 0.6 sec; 3 SD above the mean Lifting Large, Light Objects Non-Dominant Hand 12.1 seconds Dominant Hand 5.2 seconds Comments Norms for 20 to 59 year-old women Non-dominant hand: 3.3 +/- 0. 6 sec; 10+ SD above the mean Dominant hand: 3.1 +/- 0.5 sec; > 4 SD above the mean Lifting Large, Heavy Objects Non-Dominant Hand 10.7 seconds Dominant Hand 6.0 seconds Comments Norms for 20 to 59 year-old women Non-dominant hand: 3.3 +/- 0. 5 sec; 10+ SD above the mean Dominant hand: 3.2 +/- 0.5 sec; > 4 SD above the mean Clinical Observations Clinical Observations Simulated Page Turning Subtest Non-Dominant Hand = 16.2 sec; Dominant Hand = 8.7 sec Norms for 20 to 59 year-old women Non-dominant hand: 4.8 +/- 1. 1 sec; > 10 SD above the mean Dominant hand: 4.3 +/- 1.4 sec; > 3 SD above the mean 9-Hole Peg Hand Test Hand Left Date of Test 02/11/20 Therapist UMA Acosta/Hardeep Norm For Patients Age/Sex 20-24 y.o. women = 17.2 +/- 2. 4 Comments Scoring Time = 2 min 5 sec. Interpretation = > 10+ SD above the mean Right Date of Test 02/11/20 Therapist Rhona Martinez MSOTR/Hardeep Interpretation Impaired Norm For Patients Age/Sex 20-24 y.o. women = 15.8 +/- 2. 1 Comments Scoring Time = 27.1 sec. Interpretation = > 5 SD above the mean OT Outpatient Treatment Note - Adult Start: 02/11/20 16:05 Freq: Status: Active Protocol: Document 08/15/20 15:32 AMS (Rec: 08/15/20 15:46 AMS [id number]) OT Outpatient Adult Treatment Note Session Time Visit Start Time 12:30 Visit Stop Time 13:15 Total Visit Minutes 45 Visit Information Plan of Care Dates 07/28/20-10/20/20 Insurance Information [employer] Setting Treatment Setting Outpatient Care Visit Type Note Type Progress Note General Information General Information Mona is a R hand dominant 19 year-old female referred to OT secondary to diagnosis of epilepsy. 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 - Subjective Identification Type Name Identification Reconciled With Medical Record Observations Mona verbally indicated that she has been using her left hand to pick up worker more things. - Objective Objective Measurements Please refer to below for progress towards meeting established OT goals. Short Term Goals 1. Mona will demonstrate improved fine motor coordination of the left hand; this will be evidenced by Mona's ability to complete the Miguelito Hand Function stacking checkers subtest under 10.0 seconds with her non-dominant left hand. 08/15/20 = 13.7 sec w/ L hand on ; 18.0 sec w/ L hand 08/15/20 2. Mona will demonstrate improved fine motor coordination of the left hand; this will be evidenced by Mona's ability to complete the Miguelito Hand Function Small Objects subtest under 12.0 seconds with her non-dominant left hand. 08/15/20= 25% met; 21 .0 sec w/ L hand 08/15/20 GOALS MET Actively participated in additional standardized assessments. *MET 02/16/20 Completed the Miguelito Hand Function stacking checkers subtest under 30.0 seconds w/ L hand. *MET 04/01/20= 27.0 sec Transferred x 10 med pom poms w/ tweezers in L hand w/ assist for initial grasp. *MET 04/01/20 Completd the Miguelito Hand Function stacking checkers subtest under 20.0 seconds w/ L hand. *MET 05/06/20 Deadener Goals 1. Mona will be modified independent with execution of home exercise program utilizing provided written and visual instructions with support of her family. 08/15/20= 50% met 2. Mona will present with improved L shoulder strength which will support functional incorporation of the left upper extremity. 4/5 MMT for left shoulder abduction. = Goal modified given that components had been met GOALS MET Mod independent w/ opening of jars w/ active use of L hand based on self-report. *MET Mod independent w/ opening of cans within the home w/ active incorporation of L hand based on self-report. *MET 08/15/20 - Treatment 7 Descriptor Eye-hand coordination. 6 Descriptor Fine motor planning. Small pegs pegboard. Stacking checkers subtest. Small objects subtest. Washers w/ dowel. 5 Descriptor Bimanual coordination. 4 Descriptor Motor planning/Neuro Re- education. Isolated wrist movements w/ forearm in pronation and elbow extended. Wrist flex/ext. Wrist UD/RD. Wrist circles. 1x10. Isolated wrist movement w/ forearm in neutral. Wrist UD/ RD. 1x10. Unilateral/bilateral distal UE motor imitation. Exercises 4 Descriptor UEB. x 5 minutes. 3 Descriptor Shoulder strengthening. B sh abduction/snow angels. Seated. 1# DB. 2x10. B sh press. Seated. 1# DB. 2x10. B chest press. Seated. 1# DB. 2x10. B punches. Seated. 1# DB. 2x10 . 1 Descriptor HEP/POC. Reviewed recommendations for home exercise program. Recommended active incorporation of the left hand/upper extremity w/ completion of functional tasks . - Assessment Assessment of Improvement Mona has made progress over the last certification period; this is evidenced by Mona meeting OT goals. She has demonstrated progress relative to L UE strength, functional abilities with active incorporation of L UE/hand, and fine motor coordination. Progress was made despite gap between 07/25 and 08/15 in treatment. Mona continues to struggle with small object manipulation, managing multiple objects w/ the left hand, in-hand manipulation. She also continues to have difficulty grading force with object manipulation when utilizing the L UE. Recommend determining if additional progress can be made relative to in-hand manipulation abilities of the L hand, eye- hand coordination, and L UE strength. Continued outpatient OT is recommended to maximize Mona's success w/ active participation in meaningful activities in a variety of environments with active incorporation of the non- dominant hand. PLAN: FM; small obj manipulation; functional tasks; attention to left side of space; UE strengthening. Home Exercise Program Please refer to treatment section of note for specific details. - Plan Therapy Recommendations Continue with Current Program, Advance per Rehabilitation Protocol Comment 12 weeks Frequency of Treatment Once a Week Therapeutic Contents Active Range of Motion, Adaptive Equipment Education, Client Education,Cognitive Skills Development,Functional Activities,Home Exercise Program,Joint Protection, Education,Neurodevelopment Treatment,Self-Care,Stretching /Flexibility Activities, Therapeutic Activities, Therapeutic Exercises,Sensory Re-education
--- NOTE | 2020-08-29 11:19 | OT.OP.TRT ---
Visit Care Team Role Provider Type Greg Glaser DO Attending Provider Physician Family Provider Primary Care Provider Referring Provider Specialty: Family Practice Address: [address] [place] [address], [id number] Email: Occupational Therapy Treatment Note OT Outpatient Treatment Note - Adult Start: 02/11/20 16:05 Freq: Status: Active Protocol: Document 08/29/20 11:14 AMS (Rec: 08/29/20 11:19 AMS [id number]) OT Outpatient Adult Treatment Note Visit Information Plan of Care Dates 07/28/20-10/20/20 Insurance Information [employer] Setting Treatment Setting Outpatient Care Visit Type Note Type Administrative Note General Information General Information Mona is a R hand dominant 19 year-old female referred to OT secondary to diagnosis of epilepsy. 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 - Subjective Observations Therapist contacted patient via available contact information listed in electronic medial record. Phone call was unanswered and voicemail was left; patient was informed that OT appointment was missed this morning at 10:30 a.m. (08/29/20 ) and that no additional appointments are currently scheduled for outpatient OT or PT. Contact information for outpatient clinic was included in message. - - - -
--- NOTE | 2020-09-26 10:31 | OT.OP.TRT ---
Visit Care Team Role Provider Type Greg Glaser DO Attending Provider Physician Family Provider Primary Care Provider Referring Provider Specialty: Family Practice Address: [address] [place] [address], [id number] Email: Occupational Therapy Treatment Note OT Outpatient Treatment Note - Adult Start: 02/11/20 16:05 Freq: Status: Active Protocol: Document 09/26/20 10:26 [facility] (Rec: 09/26/20 10:31 [facility] [id number]) OT Outpatient Adult Treatment Note Session Time Visit Start Time 09:30 Visit Stop Time 10:18 Total Visit Minutes 48 Visit Information Plan of Care Dates 07/28/20-10/20/20 Insurance Information [employer] Setting Treatment Setting Outpatient Care Visit Type Note Type Treatment Note General Information General Information Mona is a R hand dominant 19 year-old female referred to OT secondary to diagnosis of epilepsy. 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 - Subjective Identification Type Name Identification Reconciled With Medical Record Observations Authorization to Discuss Patient Medical Information form was completed by patient during treatment session; copy of completed form was provided to Mona. Original to be scanned into EMR by outpatient clinic front end developer staff. Therapist to follow-up as appropriate. Mona verbalized desire to want to work on 'small things'. - Objective Objective Measurements Please refer to below for progress towards meeting established OT goals. Short Term Goals 1. Mona will demonstrate improved fine motor coordination of the left hand; this will be evidenced by Mona's ability to complete the Miguelito Hand Function stacking checkers subtest under 10.0 seconds with her non-dominant left hand. 08/15/20 = 13.7 sec w/ L hand on ; 18.0 sec w/ L hand 08/15/20 2. Mona will demonstrate improved fine motor coordination of the left hand; this will be evidenced by Mona's ability to complete the Miguelito Hand Function Small Objects subtest under 12.0 seconds with her non-dominant left hand. 08/15/20= 25% met; 21 .0 sec w/ L hand 08/15/20 GOALS MET Actively participated in additional standardized assessments. *MET 02/16/20 Completed the Miguelito Hand Function stacking checkers subtest under 30.0 seconds w/ L hand. *MET 04/01/20= 27.0 sec Transferred x 10 med pom poms w/ tweezers in L hand w/ assist for initial grasp. *MET 04/01/20 Completd the Miguelito Hand Function stacking checkers subtest under 20.0 seconds w/ L hand. *MET 05/06/20 Skilled Nursing Goals 1. Mona will be modified independent with execution of home exercise program utilizing provided written and visual instructions with support of her family. 08/15/20= 50% met 2. Mona will present with improved L shoulder strength which will support functional incorporation of the left upper extremity. 4/5 MMT for left shoulder abduction. = Goal modified given that components had been met GOALS MET Mod independent w/ opening of jars w/ active use of L hand based on self-report. *MET Mod independent w/ opening of cans within the home w/ active incorporation of L hand based on self-report. *MET 08/15/20 - Treatment 7 Descriptor Eye-hand coordination. 6 Descriptor Fine motor planning. Small pegs pegboard. Stacking checkers subtest. Small objects subtest. Washers w/ dowel. 5 Descriptor Bimanual coordination. 4 Descriptor Motor planning/Neuro Re- education. Isolated wrist movements w/ forearm in pronation and elbow extended. Wrist flex/ext. Wrist UD/RD. Wrist circles. 1x10. Isolated wrist movement w/ forearm in neutral. Wrist UD/ RD. 1x10. Unilateral/bilateral distal UE motor imitation. Exercises 4 Descriptor Seated. UEB. x 5 minutes. 1 Descriptor HEP/POC. Reviewed recommendations for home exercise program. Recommended active incorporation of the left hand/upper extremity w/ completion of functional tasks . - Assessment Assessment of Improvement Gap in OT treatment has occurred; will need to monitor Mona's ability to consistently attend outpatient visits. Increased focus on rotation of objects with the left hand. Continued outpatient OT is recommended to maximize Mona's success w / active participation in meaningful activities in a variety of environments with active incorporation of the non-dominant hand. PLAN: FM; small obj manipulation; functional tasks; attention to left side of space; UE strengthening. Home Exercise Program Please refer to treatment section of note for specific details. - Plan Therapy Recommendations Continue with Current Program, Advance per Rehabilitation Protocol
--- NOTE | 2020-10-10 15:26 | OT.OP.TRT ---
Visit Care Team Role Provider Type Greg Glaser DO Attending Provider Physician Family Provider Primary Care Provider Referring Provider Specialty: Family Practice Address: [address] [place] [address], [id number] Email: Occupational Therapy Treatment Note OT Outpatient Treatment Note - Adult Start: 02/11/20 16:05 Freq: Status: Active Protocol: Document 10/10/20 14:24 BM (Rec: 10/10/20 14:28 BM [id number]) OT Outpatient Adult Treatment Note Session Time Visit Start Date 10/10/20 Visit Start Time 13:30 Visit Stop Date 10/10/20 Visit Stop Time 14:15 Total Visit Minutes 45 Visit Information Plan of Care Dates 07/28/20-10/20/20 Insurance Information [employer] Setting Treatment Setting Outpatient Care Visit Type Note Type Treatment Note General Information General Information Mona is a R hand dominant 19 year-old female referred to OT secondary to diagnosis of epilepsy. 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 - Subjective Identification Type Name Identification Reconciled With Medical Record Observations Mona reports that she has been working on her exercises for PT at home. She is part of a job skills training program that will assist with carryover of HEP, per Mona. - Objective Objective Measurements Please refer to below for progress towards meeting established OT goals. Short Term Goals 1. Mona will demonstrate improved fine motor coordination of the left hand; this will be evidenced by Mona's ability to complete the Miguelito Hand Function stacking checkers subtest under 10.0 seconds with her non-dominant left hand. 08/15/20 = 13.7 sec w/ L hand on ; 18.0 sec w/ L hand 08/15/20 2. Mona will demonstrate improved fine motor coordination of the left hand; this will be evidenced by Mona's ability to complete the Miguelito Hand Function Small Objects subtest under 12.0 seconds with her non-dominant left hand. 08/15/20= 25% met; 21 .0 sec w/ L hand 08/15/20 GOALS MET Actively participated in additional standardized assessments. *MET 02/16/20 Completed the Miguelito Hand Function stacking checkers subtest under 30.0 seconds w/ L hand. *MET 04/01/20= 27.0 sec Transferred x 10 med pom poms w/ tweezers in L hand w/ assist for initial grasp. *MET 04/01/20 Completd the Miguelito Hand Function stacking checkers subtest under 20.0 seconds w/ L hand. *MET 05/06/20 Senior Care Goals 1. Mona will be modified independent with execution of home exercise program utilizing provided written and visual instructions with support of her family. 08/15/20= 50% met 2. Mona will present with improved L shoulder strength which will support functional incorporation of the left upper extremity. 4/5 MMT for left shoulder abduction. = Goal modified given that components had been met GOALS MET Mod independent w/ opening of jars w/ active use of L hand based on self-report. *MET Mod independent w/ opening of cans within the home w/ active incorporation of L hand based on self-report. *MET 08/15/20 - Treatment 7 Descriptor Eye-hand coordination. 6 Descriptor Fine motor planning. Resistive tweezers. 5 Descriptor Bimanual coordination. Exercises 4 Descriptor Seated. UEB. x 7 minutes. Standing resistive exercises using theraband - bicep curls, tricep extension, and internal rotation 2x10 1 Descriptor HEP/POC. Reviewed recommendations for home exercise program. Recommended active incorporation of the left hand/upper extremity w/ completion of functional tasks . - Assessment Assessment of Improvement Mona participates with skilled intervention to address bilateral coordination , bimanual hand skills, Ue strengthening, and FM coordination. Presence of fluctuating tone noted in L UE , impacting coordination and dexterity. oMna reports that she does not often know if she has pain in her L arm d/t poor body awareness. Introduced strengthening exercises using theraband with therapist blocking core rotational movement d/t compensation. Introduced weight bearing technique to assist with inhibition of tone in L hand. Included in HEP. Provided pt with 2 copies of HEP for use at home and at programming attended. Continued outpatient OT is recommended to maximize Mona 's success w/ active participation in meaningful activities in a variety of environments with active incorporation of the non- dominant hand. PLAN: FM; small obj manipulation; functional tasks; attention to left side of space; UE strengthening. Home Exercise Program Please refer to treatment section of note for specific details. - Plan Therapy Recommendations Continue with Current Program, Advance per Rehabilitation Protocol
--- NOTE | 2020-10-17 14:27 | OT.OPPOC ---
Physical, Occupational & Speech Therapy At [facility] Mona Sales [id number] Mona Sales Visit Care Team Role Provider Type Greg Glaser DO Attending Provider Physician Family Provider Primary Care Provider Referring Provider Address: [address] [place] [address], [id number] Occupational Therapy Plan of Care OT Outpatient Adult Evaluation Start: 02/11/20 16:05 Freq: Status: Active Protocol: Document 02/11/20 16:06 AMS (Rec: 02/11/20 16:51 AMS [id number]) General Information Session Time Visit Start Time 10:30 Visit Stop Time 11:15 Total Visit Minutes 45 Visit Information Plan of Care Dates 02/11/20-05/05/20 Insurance Information [employer] Setting Treatment Setting Outpatient Care Visit Type Note Type Initial Evaluation Range of Motion Shoulder Left Elbow/Forearm ROM WFL Yes Forearm ROM Testing Position Sitting Shoulder Flex AROM (degrees) 0-135 Query Text: Shoulder Abd AROM (degrees) 0-125 Right Elbow/Forearm ROM WFL Yes Forearm ROM Testing Position Sitting Shoulder Flex AROM (degrees) 0-145 Query Text: Shoulder Abd AROM (degrees) 0-130 Wrist Right Active Wrist ROM WFL Yes Wrist Flex AROM (degrees) 0-55 Wrist Ext AROM Fingers Open (degrees) 0-70 Ulnar Deviation AROM (degrees) 0-30 Radial Deviation AROM (degrees) 0-20 Left Active Wrist ROM WFL Yes Wrist ROM Testing Position Sitting Wrist Flex AROM (degrees) 0-55 Wrist Ext AROM Fingers Open (degrees) 0-70 (slight flexion distally of digits) Ulnar Deviation AROM (degrees) 0-30 Radial Deviation AROM (degrees) 0-20 Goals Treatment Treatment Initiated HEP; instructed to work on thumb coordination w/ opposition to each digit pad of the left hand. Also instructed to work on active extension of digits w/ hand resting on flat surface. Short Term Goals Short Term Goals 1. Mona will actively participate in additional standardized fine motor/object manipulation assessments to establish baseline. Intermediate Goals Intermediate Goals 1. Mona will be modified independent with execution of home exercise program utilizing provided written and visual instructions with support of her family. 2. Based on verbal family and self-report, Mona will be modified independent with opening of jars within the home with active incorporation of the non-dominant hand utilizing AE and compensatory strategies as needed. Assessment/Plan Assessment Treatment Assessment Mona is a R hand dominant 19 year-old female referred to OT secondary to diagnosis of epilepsy. 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 Patient goal: [place] with opening of jars. Evaluation findings: Mona denies pain. She is able to oppose L thumb to 4th digit pad w/ increased effort. Decreased extensor strength of digits of the left hand; slight flexion of digits noted distally with wrist ext. Proximal compensatory strategies to support L UE AROM; (+) leaning against back of chair noted w/ L shoulder ROM. Decreased AROM of L shoulder compared to R shoulder; L elbow and wrist AROM WFL. Decreased strength of B UEs; weaknesses more signficant in L UE compared to R UE. Some weaknesses identified may have been d/t motor planning difficulties versus muscular weaknesses. Other findings include decreased motor planning of the L hand; decreased awareness of UE in space; and decreased funcational abilities. Outpatient OT is recommended to address these areas in order to maximize Mona's success w/ active participation in meaningful activities in a variety of environments with active incorporation of non-dominant hand. Home Exercise Program Please refer to treatment section of note for specific details. Plan Comment 12 weeks Treatment Frequency Once a Week Therapeutic Contents Active Range of Motion, Adaptive Equipment Education, Client Education,Cognitive Skills Development,Functional Activities,Home Exercise Program,Joint Protection, Manual Therapy,Education, Neurodevelopment Treatment, Neuromuscular Re-Education, Self-Care,Stretching/ Flexibility Activities, Therapeutic Activities, Therapeutic Exercises,Sensory Re-education Patient Instruction Home Exercise Program,Plan of Care Sensory Assessment Sensory Profile2 Functional Wrist/Hand Scan Hand Side OT Outpatient Treatment Note - Adult Start: 02/11/20 16:05 Freq: Status: Active Protocol: Document 10/17/20 13:55 AMS (Rec: 10/17/20 14:27 AMS [id number]) OT Outpatient Adult Treatment Note Session Time Visit Start Time 13:30 Visit Stop Time 14:15 Total Visit Minutes 45 Visit Information Plan of Care Dates 10/17/20-11/28/20 Insurance Information [employer] Visit Type Note Type Progress Note - Subjective Identification Type Name Identification Reconciled With Medical Record Observations Mona reported that she is doing gymnastics every Saturday from 6:30 to 8:00 and that there is a project manager/team coach that 'just works with her'. She also reported that she is ' lifting weights' there with she thinks 3# weights. Patient/Caregiver Compliance with Home Good Exercise Program Comment w/ support - Objective Objective Measurements Please refer to below for progress towards meeting established OT goals. Short Term Goals 1. Mona will demonstrate improved fine motor coordination of the left hand; this will be evidenced by Mona's ability to complete the Miguelito Hand Function stacking checkers subtest under 10.0 seconds with her non-dominant left hand. 08/15/20 = 13.7 sec w/ L hand on ; 18.0 sec w/ L hand 08/15/20 2. Mona will demonstrate improved fine motor coordination of the left hand; this will be evidenced by Mona's ability to complete the Miguelito Hand Function Small Objects subtest under 12.0 seconds with her non-dominant left hand. 08/15/20= 25% met; 21 .0 sec w/ L hand 08/15/20 GOALS MET Actively participated in additional standardized assessments. *MET 02/16/20 Completed the Miguelito Hand Function stacking checkers subtest under 30.0 seconds w/ L hand. *MET 04/01/20= 27.0 sec Transferred x 10 med pom poms w/ tweezers in L hand w/ assist for initial grasp. *MET 04/01/20 Completd the Miguelito Hand Function stacking checkers subtest under 20.0 seconds w/ L hand. *MET 05/06/20 Crop Nutrition Scientist Goals 1. Mona will be modified independent with execution of home exercise program utilizing provided written and visual instructions with support of her family. 10/17/20 = 50% met GOALS MET Mod independent w/ opening of jars w/ active use of L hand based on self-report. *MET Mod independent w/ opening of cans within the home w/ active incorporation of L hand based on self-report. *MET 08/15/20 4/5 MMT for left shoulder flexion; 4/5 MMT for left shoulder external rotation; 4/ 5 MMT for left shoulder abduction/adduction. *MET 10/17 = 4+/5 MMT for Sh Strength Testing - Treatment 7 Descriptor Eye-hand coordination. 6 Descriptor Fine motor planning. Resistive tweezers. 5 Descriptor Bimanual coordination. Exercises 4 Descriptor Seated. UEB. x 5 minutes. 1 Descriptor HEP/POC. Reviewed exercises previously provided. Mona informed therapist that she has been doing gymnastics every week on Wednesdays; she reportedly also uses weights on Wednesdays to complete strengthening exercises. Recommended active incorporation of the left hand /upper extremity w/ completion of functional tasks. - Assessment Assessment of Improvement Mona has made gains relative to UE strength; she is going to gymnastics 1 x per week and is reportedly using weights during this time. She demonstrated decreased technique w/ UE strengthening utilizing TB on this treatment date; will need to determine if Mona is able to execute without support or if 1 x a week with support is more beneficial for her. Reviewed exercises that were provided by previous therapist; need to work on thumb coordination to support in-hand manipulation. Decreased success with isolation of digits. Mona was unable to identify specific functional activities that she would like therapist to address. Will need to follow-up re: functional areas . Insurance will likely be a factor in the near future as well. Thus, it is important that Mona has good understanding of HEP and that it is of a size which will support continued execution. PLAN: FM; small obj manipulation; functional tasks ; attention to left side of space Home Exercise Program Please refer to treatment section of note for specific details. - Plan Therapy Recommendations Continue with Current Program, Advance per Rehabilitation Protocol Comment 6 weeks Frequency of Treatment Once a Week Therapeutic Contents Active Range of Motion, Adaptive Equipment Education, Client Education,Cognitive Skills Development,Functional Activities,Home Exercise Program,Education, Neurodevelopment Treatment, Self-Care,Therapeutic Activities,Therapeutic Exercises,Sensory Re-education Electronically Signed by: Rhona Martinez OT 10/17/20 [id number] Please Sign and Return: I have reviewed this Plan of Care and certify that the skilled therapy services above are required to meet the patient?s needs. Physician Signature Date Printed Name and Credentials Clinical Instructor Signature Printed Name and Credentials
--- NOTE | 2020-10-17 15:40 | OT.OPPOC ---
Physical, Occupational & Speech Therapy At [facility] Mona Sales [id number] Mona Sales Visit Care Team Role Provider Type Greg Glaser DO Attending Provider Physician Family Provider Primary Care Provider Referring Provider Address: [address] [place] [address], [phone] Occupational Therapy Plan of Care OT Outpatient Adult Evaluation Start: 02/11/20 16:05 Freq: Status: Active Protocol: Document 02/11/20 16:06 [facility] (Rec: 02/11/20 16:51 [facility] [id number]) General Information Session Time Visit Start Time 10:30 Visit Stop Time 11:15 Total Visit Minutes 45 Visit Information Plan of Care Dates 02/11/20-05/05/20 Insurance Information [employer] Setting Treatment Setting Outpatient Care Visit Type Note Type Initial Evaluation Range of Motion Shoulder Left Elbow/Forearm ROM WFL Yes Forearm ROM Testing Position Sitting Shoulder Flex AROM (degrees) 0-135 Query Text: Shoulder Abd AROM (degrees) 0-125 Right Elbow/Forearm ROM WFL Yes Forearm ROM Testing Position Sitting Shoulder Flex AROM (degrees) 0-145 Query Text: Shoulder Abd AROM (degrees) 0-130 Wrist Right Active Wrist ROM WFL Yes Wrist Flex AROM (degrees) 0-55 Wrist Ext AROM Fingers Open (degrees) 0-70 Ulnar Deviation AROM (degrees) 0-30 Radial Deviation AROM (degrees) 0-20 Left Active Wrist ROM WFL Yes Wrist ROM Testing Position Sitting Wrist Flex AROM (degrees) 0-55 Wrist Ext AROM Fingers Open (degrees) 0-70 (slight flexion distally of digits) Ulnar Deviation AROM (degrees) 0-30 Radial Deviation AROM (degrees) 0-20 Goals Treatment Treatment Initiated HEP; instructed to work on thumb coordination w/ opposition to each digit pad of the left hand. Also instructed to work on active extension of digits w/ hand resting on flat surface. Short Term Goals Short Term Goals 1. Mona will actively participate in additional standardized fine motor/object manipulation assessments to establish baseline. Skilled Nursing Goals Skilled Nursing Goals 1. Mona will be modified independent with execution of home exercise program utilizing provided written and visual instructions with support of her family. 2. Based on verbal family and self-report, Mona will be modified independent with opening of jars within the home with active incorporation of the non-dominant hand utilizing AE and compensatory strategies as needed. Assessment/Plan Assessment Treatment Assessment Mona is a R hand dominant 19 year-old female referred to OT secondary to diagnosis of epilepsy. 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 Patient goal: [place] with opening of jars. Evaluation findings: Mona denies pain. She is able to oppose L thumb to 4th digit pad w/ increased effort. Decreased extensor strength of digits of the left hand; slight flexion of digits noted distally with wrist ext. Proximal compensatory strategies to support L UE AROM; (+) leaning against back of chair noted w/ L shoulder ROM. Decreased AROM of L shoulder compared to R shoulder; L elbow and wrist AROM WFL. Decreased strength of B UEs; weaknesses more signficant in L UE compared to R UE. Some weaknesses identified may have been d/t motor planning difficulties versus muscular weaknesses. Other findings include decreased motor planning of the L hand; decreased awareness of UE in space; and decreased funcational abilities. Outpatient OT is recommended to address these areas in order to maximize Mona's success w/ active participation in meaningful activities in a variety of environments with active incorporation of non-dominant hand. Home Exercise Program Please refer to treatment section of note for specific details. Plan Comment 12 weeks Treatment Frequency Once a Week Therapeutic Contents Active Range of Motion, Adaptive Equipment Education, Client Education,Cognitive Skills Development,Functional Activities,Home Exercise Program,Joint Protection, Manual Therapy,Education, Neurodevelopment Treatment, Neuromuscular Re-Education, Self-Care,Stretching/ Flexibility Activities, Therapeutic Activities, Therapeutic Exercises,Sensory Re-education Patient Instruction Home Exercise Program,Plan of Care Sensory Assessment Sensory Profile2 Functional Wrist/Hand Scan Hand Side OT Outpatient Treatment Note - Adult Start: 02/11/20 16:05 Freq: Status: Active Protocol: Document 10/17/20 13:55 [facility] (Rec: 10/17/20 14:27 [facility] [id number]) OT Outpatient Adult Treatment Note Session Time Visit Start Time 13:30 Visit Stop Time 14:15 Total Visit Minutes 45 Visit Information Plan of Care Dates 10/17/20-11/28/20 Insurance Information [employer] Visit Type Note Type Progress Note - Subjective Identification Type Name Identification Reconciled With Medical Record Observations Mona reported that she is doing gymnastics every Saturday from 6:30 to 8:00 and that there is a cheerleading coach that 'just works with her'. She also reported that she is ' lifting weights' there with she thinks 3# weights. Patient/Caregiver Compliance with Home Good Exercise Program Comment w/ support - Objective Objective Measurements Please refer to below for progress towards meeting established OT goals. Short Term Goals 1. Mona will demonstrate improved fine motor coordination of the left hand; this will be evidenced by Mona's ability to complete the Miguelito Hand Function stacking checkers subtest under 10.0 seconds with her non-dominant left hand. 08/15/20 = 13.7 sec w/ L hand on ; 18.0 sec w/ L hand 08/15/20 2. Mona will demonstrate improved fine motor coordination of the left hand; this will be evidenced by Mona's ability to complete the Miguelito Hand Function Small Objects subtest under 12.0 seconds with her non-dominant left hand. 08/15/20= 25% met; 21 .0 sec w/ L hand 08/15/20 GOALS MET Actively participated in additional standardized assessments. *MET 02/16/20 Completed the Miguelito Hand Function stacking checkers subtest under 30.0 seconds w/ L hand. *MET 04/01/20= 27.0 sec Transferred x 10 med pom poms w/ tweezers in L hand w/ assist for initial grasp. *MET 04/01/20 Completd the Miguelito Hand Function stacking checkers subtest under 20.0 seconds w/ L hand. *MET 05/06/20 Executive Marketing Assistant Goals 1. Mona will be modified independent with execution of home exercise program utilizing provided written and visual instructions with support of her family. 10/17/20 = 50% met GOALS MET Mod independent w/ opening of jars w/ active use of L hand based on self-report. *MET Mod independent w/ opening of cans within the home w/ active incorporation of L hand based on self-report. *MET 08/15/20 4/5 MMT for left shoulder flexion; 4/5 MMT for left shoulder external rotation; 4/ 5 MMT for left shoulder abduction/adduction. *MET 10/17 = 4+/5 MMT for Sh Strength Testing - Treatment 7 Descriptor Eye-hand coordination. 6 Descriptor Fine motor planning. Resistive tweezers. 5 Descriptor Bimanual coordination. Exercises 4 Descriptor Seated. UEB. x 5 minutes. 1 Descriptor HEP/POC. Reviewed exercises previously provided. Mona informed therapist that she has been doing gymnastics every week on Wednesdays; she reportedly also uses weights on Wednesdays to complete strengthening exercises. Recommended active incorporation of the left hand /upper extremity w/ completion of functional tasks. - Assessment Assessment of Improvement Mona has made gains relative to UE strength; she is going to gymnastics 1 x per week and is reportedly using weights during this time. She demonstrated decreased technique w/ UE strengthening utilizing TB on this treatment date; will need to determine if Mona is able to execute without support or if 1 x a week with support is more beneficial for her. Reviewed exercises that were provided by previous therapist; need to work on thumb coordination to support in-hand manipulation. Decreased success with isolation of digits. Mona was unable to identify specific functional activities that she would like therapist to address. Will need to follow-up re: functional areas . Insurance will likely be a factor in the near future as well. Thus, it is important that Mona has good understanding of HEP and that it is of a size which will support continued execution. PLAN: FM; small obj manipulation; functional tasks ; attention to left side of space Home Exercise Program Please refer to treatment section of note for specific details. - Plan Therapy Recommendations Continue with Current Program, Advance per Rehabilitation Protocol Comment 6 weeks Comment 1-2 times per week Therapeutic Contents Active Range of Motion, Adaptive Equipment Education, Client Education,Cognitive Skills Development,Functional Activities,Home Exercise Program,Education, Neurodevelopment Treatment, Self-Care,Therapeutic Activities,Therapeutic Exercises,Sensory Re-education Electronically Signed by: Rhona Martinez OT 10/17/20 7901 Please Sign and Return: I have reviewed this Plan of Care and certify that the skilled therapy services above are required to meet the patient?s needs. Physician Signature Date Printed Name and Credentials Clinical Instructor Signature Printed Name and Credentials
--- NOTE | 2020-10-21 11:25 | OT.OP.TRT ---
Visit Care Team Role Provider Type Greg Glaser DO Attending Provider Physician Family Provider Primary Care Provider Referring Provider Specialty: Family Practice Address: [address] [place] [address], [phone] Email: Occupational Therapy Treatment Note OT Outpatient Treatment Note - Adult Start: 02/11/20 16:05 Freq: Status: Active Protocol: Document 10/21/20 11:14 [facility] (Rec: 10/21/20 11:25 AMS [id number]) OT Outpatient Adult Treatment Note Session Time Visit Start Time 09:30 Visit Stop Time 10:15 Total Visit Minutes 45 Visit Information Plan of Care Dates 10/17/20-11/28/20 Insurance Information [employer] Setting Treatment Setting Outpatient Care Visit Type Note Type Treatment Note General Information General Information Mona is a R hand dominant 19 year-old female referred to OT secondary to diagnosis of epilepsy. 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 - Subjective Identification Type Name Identification Reconciled With Medical Record Observations Mona reported that she is doing gymnastics every Saturday from 6:30 to 8:00 and that there is a wellness health coach that 'just works with her'. She also reported that she is ' lifting weights' there with she thinks 3# weights. Patient/Caregiver Compliance with Home Good Exercise Program Comment w/ support - Objective Objective Measurements Please refer to below for progress towards meeting established OT goals. Short Term Goals 1. Mona will demonstrate improved fine motor coordination of the left hand; this will be evidenced by Mona's ability to complete the Miguelito Hand Function stacking checkers subtest under 10.0 seconds with her non-dominant left hand. 08/15/20 = 13.7 sec w/ L hand on ; 18.0 sec w/ L hand 08/15/20 2. Mona will demonstrate improved fine motor coordination of the left hand; this will be evidenced by Mona's ability to complete the Miguelito Hand Function Small Objects subtest under 12.0 seconds with her non-dominant left hand. 08/15/20= 25% met; 21 .0 sec w/ L hand 08/15/20 GOALS MET Actively participated in additional standardized assessments. *MET 02/16/20 Completed the Miguelito Hand Function stacking checkers subtest under 30.0 seconds w/ L hand. *MET 04/01/20= 27.0 sec Transferred x 10 med pom poms w/ tweezers in L hand w/ assist for initial grasp. *MET 04/01/20 Completd the Miguelito Hand Function stacking checkers subtest under 20.0 seconds w/ L hand. *MET 05/06/20 Alf Goals 1. Mona will be modified independent with execution of home exercise program utilizing provided written and visual instructions with support of her family. 10/17/20 = 50% met GOALS MET Mod independent w/ opening of jars w/ active use of L hand based on self-report. *MET Mod independent w/ opening of cans within the home w/ active incorporation of L hand based on self-report. *MET 08/15/20 4/5 MMT for left shoulder flexion; 4/5 MMT for left shoulder external rotation; 4/ 5 MMT for left shoulder abduction/adduction. *MET 10/17 = 4+/5 MMT for Sh Strength Testing - Treatment 7 Descriptor Eye-hand coordination. 6 Descriptor Fine motor planning. Resistive tweezers. 5 Descriptor Bimanual coordination. Exercises 4 Descriptor Seated. UEB. x 5 minutes. 1 Descriptor HEP/POC. Reviewed exercises previously provided. Mona informed therapist that she has been doing gymnastics every week on Wednesdays; she reportedly also uses weights on Wednesdays to complete strengthening exercises. Recommended active incorporation of the left hand /upper extremity w/ completion of functional tasks. - Assessment Assessment of Improvement Mona reported that she is practicing opening doors and picking up puzzle pieces with her left hand. Reviewed finger isolation and thumb motor planning exercises; continued difficulty with opposing thumb to 4th digit; unable to oppose to 5th digit on this without physical assistance from contralateral hand. Decreased thumb motor coordination with cueing to support grading of force and to coordinate thumb and 2nd digit to picker feeder objects. Recommend continued participation in strengthening program at gymnastic facility d/t likely improved compliance and need for cueing to discourage compensatory strategies/proper execution. Recommend identifying functional tasks to support compliance with carry-over of home exercise program with active incorporation of the left upper extremity. PLAN: FM; small obj manipulation; functional tasks; attention to left side of space Home Exercise Program Please refer to treatment section of note for specific details. - Plan Therapy Recommendations Continue with Current Program, Advance per Rehabilitation Protocol
--- NOTE | 2020-10-24 10:29 | OT.OP.TRT ---
Visit Care Team Role Provider Type Greg Glaser DO Attending Provider Physician Family Provider Primary Care Provider Referring Provider Specialty: Family Practice Address: [address] [place] [address], [id number] Email: Occupational Therapy Treatment Note OT Outpatient Treatment Note - Adult Start: 02/11/20 16:05 Freq: Status: Active Protocol: Document 10/24/20 10:25 AMS (Rec: 10/24/20 10:29 AMS [id number]) OT Outpatient Adult Treatment Note Session Time Visit Start Time 09:40 Visit Stop Time 10:20 Total Visit Minutes 40 Visit Information Plan of Care Dates 10/17/20-11/28/20 Insurance Information [employer] Setting Treatment Setting Outpatient Care Visit Type Note Type Treatment Note General Information General Information Mona is a R hand dominant 19 year-old female referred to OT secondary to diagnosis of epilepsy. 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 - Subjective Identification Type Name Identification Reconciled With Medical Record Observations No new complaints were reported from Mona. Patient/Caregiver Compliance with Home Good Exercise Program Comment w/ support - Objective Objective Measurements Please refer to below for progress towards meeting established OT goals. Short Term Goals 1. Mona will demonstrate improved fine motor coordination of the left hand; this will be evidenced by Mona's ability to complete the Miguelito Hand Function stacking checkers subtest under 10.0 seconds with her non-dominant left hand. 08/15/20 = 13.7 sec w/ L hand on ; 18.0 sec w/ L hand 08/15/20 2. Mona will demonstrate improved fine motor coordination of the left hand; this will be evidenced by Mona's ability to complete the Miguelito Hand Function Small Objects subtest under 12.0 seconds with her non-dominant left hand. 08/15/20= 25% met; 21 .0 sec w/ L hand 08/15/20 GOALS MET Actively participated in additional standardized assessments. *MET 02/16/20 Completed the Miguelito Hand Function stacking checkers subtest under 30.0 seconds w/ L hand. *MET 04/01/20= 27.0 sec Transferred x 10 med pom poms w/ tweezers in L hand w/ assist for initial grasp. *MET 9/25/20 Completd the Miguelito Hand Function stacking checkers subtest under 20.0 seconds w/ L hand. *MET 05/06/20 Shelter Goals 1. Mona will be modified independent with execution of home exercise program utilizing provided written and visual instructions with support of her family. 10/24/20 = 50% met GOALS MET Mod independent w/ opening of jars w/ active use of L hand based on self-report. *MET Mod independent w/ opening of cans within the home w/ active incorporation of L hand based on self-report. *MET 08/15/20 4/5 MMT for left shoulder flexion; 4/5 MMT for left shoulder external rotation; 4/ 5 MMT for left shoulder abduction/adduction. *MET 10/17 = 4+/5 MMT for Sh Strength Testing - Treatment 7 Descriptor Eye-hand coordination. 6 Descriptor Fine motor planning. Resistive tweezers. 5 Descriptor Bimanual coordination. Exercises 4 Descriptor Seated. UEB. x 6 minutes. 1 Descriptor HEP/POC. Modified home exercise program; focus on 2 fine motor coordination activities and active incorporation of the left hand /upper extremity w/ completion of functional tasks at least 30 minutes per day. Home exercise program to be scanned into electronic medical records. - Assessment Assessment of Improvement Reviewed finger isolation and thumb motor planning exercises ; continued difficulty with opposing thumb to 4th digit; unable to oppose to 5th digit on this without physical assistance from contralateral hand. 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 Reduced number of recommended exercises to support compliance/carry-over given upcoming transition to home exercise program. Recommend identifying functional tasks to support compliance with carry-over of home exercise program with active incorporation of the left upper extremity. PLAN: ensure understanding of home recommendations Home Exercise Program Please refer to treatment section of note for specific details. - Plan Additional Therapy Recommendations Transition to home exercise program in the near future
--- NOTE | 2020-11-17 15:29 | OT.OP.DC ---
Visit Care Team Role Provider Type Greg Glaser DO Attending Provider Physician Family Provider Primary Care Provider Referring Provider Address: [address] [place] [address], [id number] Email: OT Outpatient OT Outpatient Adult Evaluation Start: 02/11/20 16:05 Freq: Status: Active Protocol: Document 02/11/20 16:06 AMS (Rec: 02/11/20 16:51 AMS [id number]) General Information Session Time Visit Start Time 10:30 Visit Stop Time 11:15 Total Visit Minutes 45 Visit Information Plan of Care Dates 02/11/20-05/05/20 Insurance Information [employer] Setting Treatment Setting Outpatient Care Visit Type Note Type Initial Evaluation Range of Motion Shoulder Left Elbow/Forearm ROM WFL Yes Forearm ROM Testing Position Sitting Shoulder Flex AROM (degrees) 0-135 Query Text: Shoulder Abd AROM (degrees) 0-125 Right Elbow/Forearm ROM WFL Yes Forearm ROM Testing Position Sitting Shoulder Flex AROM (degrees) 0-145 Query Text: Shoulder Abd AROM (degrees) 0-130 Wrist Right Active Wrist ROM WFL Yes Wrist Flex AROM (degrees) 0-55 Wrist Ext AROM Fingers Open (degrees) 0-70 Ulnar Deviation AROM (degrees) 0-30 Radial Deviation AROM (degrees) 0-20 Left Active Wrist ROM WFL Yes Wrist ROM Testing Position Sitting Wrist Flex AROM (degrees) 0-55 Wrist Ext AROM Fingers Open (degrees) 0-70 (slight flexion distally of digits) Ulnar Deviation AROM (degrees) 0-30 Radial Deviation AROM (degrees) 0-20 Goals Treatment Treatment Initiated HEP; instructed to work on thumb coordination w/ opposition to each digit pad of the left hand. Also instructed to work on active extension of digits w/ hand resting on flat surface. Short Term Goals Short Term Goals 1. Mona will actively participate in additional standardized fine motor/object manipulation assessments to establish baseline. Mcc Goals Mcc Goals 1. Mona will be modified independent with execution of home exercise program utilizing provided written and visual instructions with support of her family. 2. Based on verbal family and self-report, Mona will be modified independent with opening of jars within the home with active incorporation of the non-dominant hand utilizing AE and compensatory strategies as needed. Assessment/Plan Assessment Treatment Assessment Mona is a R hand dominant 19 year-old female referred to OT secondary to diagnosis of epilepsy. 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 Patient goal: [place]ola with opening of jars. Evaluation findings: Mona denies pain. She is able to oppose L thumb to 4th digit pad w/ increased effort. Decreased extensor strength of digits of the left hand; slight flexion of digits noted distally with wrist ext. Proximal compensatory strategies to support L UE AROM; (+) leaning against back of chair noted w/ L shoulder ROM. Decreased AROM of L shoulder compared to R shoulder; L elbow and wrist AROM WFL. Decreased strength of B UEs; weaknesses more signficant in L UE compared to R UE. Some weaknesses identified may have been d/t motor planning difficulties versus muscular weaknesses. Other findings include decreased motor planning of the L hand; decreased awareness of UE in space; and decreased funcational abilities. Outpatient OT is recommended to address these areas in order to maximize Mona's success w/ active participation in meaningful activities in a variety of environments with active incorporation of non-dominant hand. Home Exercise Program Please refer to treatment section of note for specific details. Plan Comment 12 weeks Treatment Frequency Once a Week Therapeutic Contents Active Range of Motion, Adaptive Equipment Education, Client Education,Cognitive Skills Development,Functional Activities,Home Exercise Program,Joint Protection, Manual Therapy,Education, Neurodevelopment Treatment, Neuromuscular Re-Education, Self-Care,Stretching/ Flexibility Activities, Therapeutic Activities, Therapeutic Exercises,Sensory Re-education Patient Instruction Home Exercise Program,Plan of Care Sensory Assessment Sensory Profile2 Functional Wrist/Hand Scan Hand Side OT Outpatient Muscle Testing Start: 02/11/20 16:05 Freq: Status: Active Protocol: Document 10/21/20 11:14 [facility] (Rec: 10/21/20 11:25 [facility] [id number]) Shoulder Strength Shoulder Manual Muscle Testing Left Flexion 4+ Good+ Extension 4+ Good+ Abduction (C5) 4+ Good+ Adduction 4+ Good+ External Rotation 4+ Good+ Internal Rotation 4+ Good+ Horizontal Abduction 4+ Good+ Horizontal Adduction 4+ Good+ Comments Re-assessed 10/17/20 Right Flexion 5 Normal Extension 5 Normal Abduction (C5) 5 Normal Adduction 5 Normal External Rotation 5 Normal Internal Rotation 5 Normal Horizontal Abduction 5 Normal Horizontal Adduction 5 Normal Comments Re-assessed 10/17/20 Elbow/Forearm Strength Elbow and Forearm Manual Muscle Testing Left Flexion (C6) 5 Normal Extension (C7) 5 Normal Right Flexion (C6) 5 Normal Extension (C7) 5 Normal Wrist Strength Wrist Manual Muscle Testing Left Flexion (C7) 5 Normal Extension (C6) 5 Normal Ulnar Deviation 5 Normal Radial Deviation 5 Normal Right Flexion (C7) 5 Normal Extension (C6) 5 Normal Ulnar Deviation 5 Normal Radial Deviation 5 Normal Orthotic Assistant/Hand Strength Orthotic Assistant/Hand Strength Left Orthotic Assistant Dynamometer II 38.3 Lateral Pinch Strengh (lbs) 14.0 Tip Pinch Strength (lbs) 7.5 Comments 02/11/20 Measurements Norms for 20-24 y.o. Orthotic Assistant Strength = 61.0 +/- 13.1; Interpretation = > 1 SD below mean Norms for 20-24 y.o. Lateral Pinch Strength = 16.2 +/- 2.1; Interpretation = slightly > 1 SD below mean Norms for 20-24 y.o. Tip Pinch Strength = 10.5 +/- 1.7; Interpretation = > 1 SD below mean Right Orthotic Assistant Dynamometer II 54.7 Lateral Pinch Strengh (lbs) 21.0 Tip Pinch Strength (lbs) 14.7 Comments 02/11/20 Measurements Norms for 20-24 y.o. Orthotic Assistant Strength = 70.4 +/- 14.5; Interpretation = slightly > 1 SD below mean Norms for 20-24 y.o. Lateral Pinch Strength = 17.6 +/- 2.0; Interpretation = > 1 SD above mean Norms for 20-24 y.o. Tip Pinch Strength = 11.1 +/- 2.1; Interpretation = > 1 SD above mean Ankle/Foot Strength Ankle and Foot Manual Muscle Testing Right Comments PF tested in seated OT Outpatient Treatment Note - Adult Start: 02/11/20 16:05 Freq: Status: Active Protocol: Document 11/17/20 15:20 AMS (Rec: 11/17/20 15:29 [facility] [id number]) OT Outpatient Adult Treatment Note Session Time Visit Start Time 14:30 Visit Stop Time 15:23 Total Visit Minutes 53 Visit Information Plan of Care Dates 10/17/20-11/28/20 Insurance Information [employer] Setting Treatment Setting Outpatient Care Visit Type Note Type Treatment Note General Information General Information Mona is a R hand dominant 19 year-old female referred to OT secondary to diagnosis of epilepsy. 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 - Subjective Identification Type Name Identification Reconciled With Medical Record Observations No new complaints were reported from Mona. Patient/Caregiver Compliance with Home Good Exercise Program Comment w/ support - Objective Objective Measurements Please refer to below for progress towards meeting established OT goals. Short Term Goals GOALS MET Actively participated in additional standardized assessments. *MET 02/16/20 Completed the Miguelito Hand Function stacking checkers subtest under 30.0 seconds w/ L hand. *MET 04/01/20= 27.0 sec Transferred x 10 med pom poms w/ tweezers in L hand w/ assist for initial grasp. *MET 04/01/20 Completd the Miguelito Hand Function stacking checkers subtest under 20.0 seconds w/ L hand. *MET 05/06/20 GOALS DISCHARGED 1. Mona will demonstrate improved fine motor coordination of the left hand; this will be evidenced by Mona's ability to complete the Miguelito Hand Function stacking checkers subtest under 10.0 seconds with her non-dominant left hand. = D/C; completed in 15.6 sec 2. Mona will demonstrate improved fine motor coordination of the left hand; this will be evidenced by Mona's ability to complete the Miguelito Hand Function Small Objects subtest under 12.0 seconds with her non-dominant left hand. 11/17/20= D/C; completed in 31.0 sec Hod Carrier Goals GOALS MET Mod independent w/ opening of jars w/ active use of L hand based on self-report. *MET Mod independent w/ opening of cans within the home w/ active incorporation of L hand based on self-report. *MET 08/15/20 4/5 MMT for left shoulder flexion; 4/5 MMT for left shoulder external rotation; 4/ 5 MMT for left shoulder abduction/adduction. *MET 10/17 = 4+/5 MMT for Sh Strength Testing Mona will be modified independent with execution of home exercise program utilizing provided written and visual instructions with support of her family. *MET - Treatment 7 Descriptor Eye-hand coordination. 5 Descriptor Bimanual coordination. Exercises 4 Descriptor Seated. UEB. x 5 minutes. 1 Descriptor HEP/POC. Provided another copy of HEP recommendations. Provided w/ contact information for this therapist for follow-up if any questions were to arise. - Assessment Assessment of Improvement Mona has made progress since time of initial evaluation relative to left upper extremity strength, motor planning, awareness of UE in space, and functional abilities. This is evidenced by Mona meeting goals in these areas. 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 Mona has been provided with visual and written instructions for home recommendations; she denied any questions. Thus, recommend d/c to home exercise program at this time. Home Exercise Program Please refer to treatment section of note for specific details. - Plan Therapy Recommendations Discharge from Occupational Therapy Additional Therapy Recommendations Transition to home exercise program in the near future
== END 2020-11-17 15:30 | disposition home or self-care (01) ==
LOC: OT 14:30
PROVIDERS: Family Provider Family Medicine; PCP Family Medicine; Referring Provider Family Medicine; Visit Provider Family Medicine
DX: G40.909 Epilepsy, unspecified, not intractable, without status epilepticus (principal); R27.8 Other lack of coordination; S50.01XA Contusion of right elbow, initial encounter
CPT/HCPCS: 97110; 97112; 97165; 97530; 97535

== ENCOUNTER 2021-01-24 00:49 | Emergency (ER) | payer OTHER, MEDICAID, SELFPAY ==
[2021-01-24 00:58] VITALS: BP 138/80; PULSE 106; RESP 16; TEMP 38.3; O2SAT 98; BMI 42.5
[2021-01-24 01:16] LABS: COVID19 -Nasal RAPID Negative (Negative)
[2021-01-24] MEDS: SODIUM CHLORIDE 0.9% 1,000 ML 1000 ML IV (01:57)
[2021-01-24] MEDS: ONDANSETRON 4 MG/2 ML INJ IV (01:57)
[2021-01-24] MEDS: ACETAMINOPHEN 325 MG TABLET 650 MG PO (01:57)
--- NOTE | 2021-01-24 02:31 | PC.NURSE ---
Patient received 2nd covid vaccine 01/23 and began feeling febrile and nauseated.
[2021-01-24 02:32] VITALS: TEMP 37.8
--- NOTE | 2021-01-24 03:17 | ED_ITS ---
HPI - Nausea/Vomiting/Diarrhea General Chief complaint: Nausea/Vomiting/Diarrhea Stated complaint: cough, nausea, vomiting Time Seen by Provider: 01/24/21 03:17 Source: patient and family (Mother) Mode of arrival: Ambulatory Limitations: no limitations History of Present Illness HPI Narrative: This is a 20-year-old female who comes with complaint of headache, fever, cough, nausea and vomiting stools episode of diarrhea approximately 24 hours after receiving her 2nd COVID vaccine. Patient had minimal to no symptoms with the initial vaccine. She had her vaccination on Saturday afternoon and developed symptoms Saturday evening. Patient does have a history significant for seizure disorder and has had 2 neuro surgical interventions, her last seizure was 2 years ago when she was last seen here in the emergency department and transferred to [facility]. Patient does take medications daily for her epilepsy. She does not recall the exact medications nor does her mother but she has been taking them appropriately. Patient has not had any additional seizure activity. Related Data Home Medications Medication Instructions Recorded Confirmed melatonin 10 mg capsule 10 mg PO BEDTIME PRN 11/12/18 12/21/20 Previous Rx's Medication Instructions Recorded Ankle Foot Orthosis #1 ea 08/25/19 folic acid 400 mcg tablet 0.4 mg PO DAILY #90 tab 12/17/19 levothyroxine 25 mcg tablet See Rx Instructions .ROUTE 07/05/20 .COMPLEX #90 tab trazodone 50 mg tablet See Rx Instructions .ROUTE 11/10/20 .COMPLEX #120 tab fluoxetine 20 mg capsule (Prozac) 40 mg PO DAILY #90 cap 12/19/20 Allergies Allergy/AdvReac Type Severity Reaction Status Date / Time No Known Drug Allergies Allergy Verified 12/21/20 13:49 Review of Systems Review of Systems ROS Unobtainable: All systems reviewed & are unremarkable except as noted in HPI and below Patient History Medical History Anxiety and depression Fatigue due to depression Insomnia disorder with non-sleep disorder mental comorbidity IT band syndrome Mixed incontinence urge and stress Seizure disorder Selective mutism as adjustment reaction Social History Smoking Status: Never smoker Smoking Status: Never smoker Exam Narrative Exam Narrative: GENERAL: Alert and oriented female in mild distress. Patient asks or allows her mother to answer majority of questions but per family this is typical. HEENT: Head normocephalic, atraumatic, EOMI, pupils reactive, face symmetric, moist mucous membranes NECK: Supple, full range of motion CARDIOVASCULAR: Regular rate and rhythm without murmurs, rubs or gallops. RESPIRATORY: Breath sounds equal bilaterally, no wheezes rales or rhonchi. ABDOMEN: Soft, generalized mild tenderness. Normoactive bowel sounds all 4 quadrants. No guarding or rebound, rigidity, no mass : No CVA tenderness EXTREMITIES: Normal range of motion, no edema. Neurovascularly intact NEUROLOGICAL: Cranial nerves II through XII grossly intact. Moving all extremities SKIN: Warm, dry, no petechiae, no rashes or lesions. Initial Vital Signs Initial Vital Signs: Vital Signs Temperature 100.9 F H 01/24/21 00:58 Pulse Rate 106 H 01/24/21 00:58 Respiratory Rate 16 01/24/21 00:58 Blood Pressure 138/80 01/24/21 00:58 Pulse Oximetry 98 01/24/21 00:58 Course Orders Ordered: ED Orders 01/24/21 00:55 COVID19 -Nasal swab/Pre-Proc Stat 01/24/21 01:05 Basic Metabolic Panel Stat Complete Blood Count AUTO DIFF Stat 01/24/21 03:30 Test Urine Stat Urinalysis and Microscopic Stat Discontinued Medications Acetaminophen (Acetaminophen 325 Mg Tablet) 650 mg PO NOW ONE Stop: 01/24/21 01:50 Last Admin: 01/24/21 01:57 Dose: 650 mg Documented by: SERGIO Sodium Chloride (Normal Saline 0.9%) 1,000 mls @ 1,000 mls/hr IV BOLUS ONE Stop: 01/24/21 02:50 Last Infusion: 01/24/21 03:16 Dose: 0 mls/hr Documented by: Admin: 01/24/21 01:57 Dose: 1,000 mls/hr Documented by: SERGIO Ketorolac Tromethamine (Ketorolac 30 Mg/Ml Vial) 30 mg IV NOW ONE Stop: 01/24/21 03:43 Last Admin: 01/24/21 03:49 Dose: 30 mg Documented by: SERGIO Ondansetron HCl (Ondansetron 4 Mg/2 Ml Inj) 4 mg IV NOW ONE Stop: 01/24/21 01:51 Last Admin: 01/24/21 01:57 Dose: 4 mg Documented by: SERGIO Ondansetron HCl (Ondansetron 4 Mg Odt Prepack) 1 bottle MISC SEEINSTR ONE Stop: 01/24/21 04:22 Last Admin: 01/24/21 04:27 Dose: 1 bottle Documented by: SERGIO Reevaluation(s) Reevaluation #1: Patient still is having symptom needs but is not having any vomiting still. Vital Signs Vital signs: Vital Signs - 8 hr 01/24/21 00:58 01/24/21 02:32 01/24/21 04:40 Temperature 100.9 F H 100.1 F H 98.2 F Pulse Rate 106 H 80 Respiratory Rate 16 16 Blood Pressure 138/80 112/64 Pulse Oximetry 98 98 MDM - Nausea/Vomiting/Diarrhea Lab Data Result diagrams: 01/24/21 01:05 01/24/21 01:05 Labs: Lab Results 01/24/21 01/24/21 01/24/21 Range/Units 00:55 01:05 01:05 WBC 7.4 (4.5-11.0) X10^3/uL RBC 4.51 (4.0-5.2) X10^6/uL Hgb 12.5 (12.0-16.0) g/dL Hct 37.6 (36-46) % MCV 83.4 (80-100) fL MCH 27.7 (26-34) PG MCHC 33.2 (30-36) % RDW 14.4 (11.6-14.8) % Plt Count 275 (150-400) X10^3/uL Neut % (Auto) 74.8 (50-75) % Lymph % (Auto) 16.1 L (25-40) % [place] % (Auto) 7.8 (3-14) % Eos % (Auto) 0.1 L (2-4) % Baso % (Auto) 1.2 (0-2) % Neut # (Auto) 5500 (2727-7860) /uL Lymph # (Auto) 1200 (3191-4300) /uL [place] # (Auto) 600 (0-900) /uL Eos # (Auto) 0 (0-450) /uL Baso # (Auto) 100 (0-100) /uL Sodium 135 L (137-145) mmol/L Potassium 4.1 (3.4-5.1) mmol/L Chloride 103 (98-107) mmol/L Carbon Dioxide 24 (22-32) mmol/L BUN 8 (7-17) mg/dL Creatinine 0.55 (0.52-1.04) mg/dL Estimated GFR > 60.0 (>60) mL/min BUN/Creatinine Ratio 14.5 (6-22) Glucose 110 H (70-100) mg/dL Calcium 9.1 (8.4-10.2) mg/dL Urine Color Urine Appearance Urine pH (4.5-8.0) Ur Specific Elkins (1.000-1.035) Urine Protein (Negative) Urine Glucose (UA) (Negative) g/dL Urine Ketones (NEGATIVE) Urine Occult Blood (Negative) Urine Nitrate (Negative) Urine Bilirubin (NEGATIVE) Urine Urobilinogen (0.2) E.U./dL Ur Leukocyte Esterase (NEGATIVE) Urine RBC (0-5/HPF) Urine WBC (0-5/HPF) Ur Squamous Epith Cells (0-5/HPF) Urine Bacteria (None) Ur Culture Indicated? Urine Test (Negative) SARS-CoV-2 (PCR) Negative (Negative) 01/24/21 01/24/21 Range/Units 03:30 03:30 WBC (4.5-11.0) X10^3/uL RBC (4.0-5.2) X10^6/uL Hgb (12.0-16.0) g/dL Hct (36-46) % MCV (80-100) fL MCH (26-34) PG MCHC (30-36) % RDW (11.6-14.8) % Plt Count (150-400) X10^3/uL Neut % (Auto) (50-75) % Lymph % (Auto) (25-40) % [place] % (Auto) (3-14) % Eos % (Auto) (2-4) % Baso % (Auto) (0-2) % Neut # (Auto) (1097-1897) /uL Lymph # (Auto) (8454-8139) /uL [place] # (Auto) (0-900) /uL Eos # (Auto) (0-450) /uL Baso # (Auto) (0-100) /uL Sodium (137-145) mmol/L Potassium (3.4-5.1) mmol/L Chloride (98-107) mmol/L Carbon Dioxide (22-32) mmol/L BUN (7-17) mg/dL Creatinine (0.52-1.04) mg/dL Estimated GFR (>60) mL/min BUN/Creatinine Ratio (6-22) Glucose (70-100) mg/dL Calcium (8.4-10.2) mg/dL Urine Color Yellow Urine Appearance Clear Urine pH 6.0 (4.5-8.0) Ur Specific Elkins <=1.005 (1.000-1.035) Urine Protein Negative (Negative) Urine Glucose (UA) Negative (Negative) g/dL Urine Ketones Negative (NEGATIVE) Urine Occult Blood Negative (Negative) Urine Nitrate Negative (Negative) Urine Bilirubin Negative (NEGATIVE) Urine Urobilinogen 0.2 (0.2) E.U./dL Ur Leukocyte Esterase Negative (NEGATIVE) Urine RBC None seen (0-5/HPF) Urine WBC None seen (0-5/HPF) Ur Squamous Epith Cells 1-5 /hpf (0-5/HPF) Urine Bacteria Occasional (0-1) (None) Ur Culture Indicated? Cult not indicated Urine Test Negative (Negative) SARS-CoV-2 (PCR) (Negative) MDM Narrative Medical decision making narrative: This is a 20-year-old female with symptoms consistent with post vaccination reaction particularly she has had her 2nd dose for COVID vaccine. Patient had some mild improvement here in the department but is still uncomfortable. Her heart rate had improved and her fever/temperature had decreased. Discussed with patient and mother her labs are reassuring, she has received fluids, Tylenol and Zofran as well as some additional Toradol for discomfort. Patient was encouraged to continue her home medications, Discharge Plan Departure Patient Disposition: Home Clinical Impression: Immunization reaction Qualifiers: Encounter type: initial encounter Qualified Code(s): T50.Z95A - Adverse effect of other vaccines and biological substances, initial encounter Activity Restrictions/Additional Instructions: Follow up with your physician if your symptoms are continuing for more than 24- 48 hours. You may take Tylenol up to a 1000 mg every 8 hours and or ibuprofen up to 600 mg every 6 hours. Make sure to hydrate. Continue home medications as prescribed. Please return for persistent vomiting, severe headaches or passing out, new ch est pain or shortness of breath, black or bloody stools, seizure activity or other new or concerning symptoms. Prescriptions: No Action (DME) Ankle Foot Orthosis Qty: 1 RF: 0 folic acid 400 mcg tablet 0.4 mg PO DAILY Qty: 90 RF: 0 levothyroxine 25 mcg tablet See Rx Instructions .ROUTE .COMPLEX Qty: 90 RF: 0 fluoxetine [Prozac] 20 mg capsule 40 mg PO DAILY Qty: 90 RF: 1 melatonin 10 mg capsule 10 mg PO BEDTIME PRNRF: 0 trazodone 50 mg tablet See Rx Instructions .ROUTE .COMPLEX Qty: 120 RF: 2 Referrals: Cirilo Bryan MD [Primary Care Provider] -
[2021-01-24 03:32] LABS: RBC Urine None Seen (0-5/HPF); WBC Urine None Seen (0-5/HPF)
[2021-01-24 03:33] LABS: Appearance Urine UA CLEAR; Bilirubin Urine UA NEGATIVE (NEGATIVE); Color Urine UA YELLOW; Glucose Urine UA NEGATIVE (Negative); Ketones Urine UA NEGATIVE (NEGATIVE); Leukocyte Esterase Urine UA NEGATIVE (NEGATIVE); Nitrite Urine UA NEGATIVE (Negative); Occult Blood Urine UA NEGATIVE (Negative); Protein Urine UA NEGATIVE (Negative); Specific Gravity Urine UA <=1.005 (1.000-1.035); Urobilinogen Urine UA 0.2 E.U./dL (0.2)
[2021-01-24 03:43] LABS: Bacteria Urine Occasional (0-1); Culture Indicated Urine Cult Not Indicated; Squamous Epithelial Cell Urine 1-5 /HPF (0-5/HPF)
[2021-01-24] MEDS: KETOROLAC 30 MG/ML VIAL IV (03:49)
[2021-01-24 03:50] LABS: Pregnancy Test Urine Negative (Negative)
[2021-01-24 03:52] LABS: Add Manual Diff / Slide Review NO; Basophils Absolute Auto 100 /uL (0-100); Basophils Percent Auto 1.2 % (0-2); Eosinophils Absolute Auto 0 /uL (0-450); Eosinophils Percent Auto 0.1 % (2-4); Hematocrit 37.6 % (36-46); Hemoglobin 12.5 g/dL (12.0-16.0); Lymphocytes Absolute Auto 1200 /uL (1100-4500); Lymphocytes Percent Auto 16.1 % (25-40); Mean Corpuscular HGB Conc 33.2 % (30-36); Mean Corpuscular Hemoglobin 27.7 PG (26-34); Mean Corpuscular Volume 83.4 fL (80-100); Monocytes Absolute Auto 600 /uL (0-900); Monocytes Percent Auto 7.8 % (3-14); Neutrophils Absolute Auto 5500 /uL (1500-7000); Neutrophils Percent Auto 74.8 % (50-75); Platelet Count 275 X10^3/uL (150-400); Red Blood Cell Count 4.51 X10^6/uL (4.0-5.2); Red Cell Distribution Width 14.4 % (11.6-14.8); White Blood Cell Count 7.4 X10^3/uL (4.5-11.0)
[2021-01-24 03:53] LABS: BUN Creatinine Ratio 14.5 (6-22); Blood Urea Nitrogen 8 mg/dL (7-17); Calcium 9.1 mg/dL (8.4-10.2); Carbon Dioxide 24 mmol/L (22-32); Chloride 103 mmol/L (98-107); Estimated Glomerular Filt Rate > 60.0 mL/min (>60); Glucose 110 mg/dL (70-100); Potassium 4.1 mmol/L (3.4-5.1); Sodium 135 mmol/L (137-145)
[2021-01-24 03:54] LABS: HEMOLYSIS 56 (0-50)
[2021-01-24] MEDS: ONDANSETRON 4 MG ODT PREPACK 1 BOTTLE MISC (04:27)
[2021-01-24 04:40] VITALS: BP 112/64; PULSE 80; RESP 16; TEMP 36.8; O2SAT 98
== END 2021-01-24 04:42 | disposition home or self-care (01) ==
PROVIDERS: Emergency Provider Emergency Medicine; PCP Family Medicine
DX: R51.9 Headache, unspecified (principal); R50.9 Fever, unspecified; R05 Cough; R11.2 Nausea with vomiting, unspecified; T50.Z95A Adverse effect of other vaccines and biological substances, initial encounter; Z20.822 Contact with and (suspected) exposure to COVID-19
CPT/HCPCS: 80048; 81001; 81025; 85025; 87635; 96361; 96374; 96375; 99284; C9803; J1885; J2405

== ENCOUNTER → 2021-03-11 14:18 | Outpatient (CLI) | payer OTHER, MEDICAID, SELFPAY | PROVIDERS: PCP Family Medicine; Referring Provider Nurse Practitioner Family; Visit Provider Nurse Practitioner Family | DX: N39.0 Urinary tract infection, site not specified (principal) | CPT/HCPCS: 81002; 87086 ==

== ENCOUNTER → 2021-04-03 10:02 | Outpatient (CLI) | payer OTHER, MEDICAID, SELFPAY ==
[2021-04-03 10:47] LABS: Appearance Urine UA CLEAR; Bilirubin Urine UA NEGATIVE (NEGATIVE); Color Urine UA YELLOW; Glucose Urine UA NEGATIVE (Negative); Ketones Urine UA NEGATIVE (NEGATIVE); Leukocyte Esterase Urine UA NEGATIVE (NEGATIVE); Nitrite Urine UA NEGATIVE (Negative); Occult Blood Urine UA NEGATIVE (Negative); Protein Urine UA TRACE (Negative); Urobilinogen Urine UA 0.2 E.U./dL (0.2)
[2021-04-03 11:08] LABS: Amorphous Sediment Urine 2+; Bacteria Urine None Seen; RBC Urine None Seen (0-5/HPF); Squamous Epithelial Cell Urine 10-30 /HPF (0-5/HPF); WBC Urine None Seen (0-5/HPF)
[2021-04-03 11:09] LABS: Culture Indicated Urine Cult Not Indicated
[2021-04-03 13:20] LABS: TSH w/ Reflex to FT4 1.44 uIU/mL (0.47-4.68)
== END ==
PROVIDERS: PCP Family Medicine; Referring Provider Family Medicine; Visit Provider Family Medicine
DX: E03.9 Hypothyroidism, unspecified (principal); R30.0 Dysuria
CPT/HCPCS: 36415; 81001; 84443

== ENCOUNTER 2021-04-11 13:00 | Outpatient (RCR) | payer OTHER, MEDICAID, SELFPAY ==
--- NOTE | 2021-02-27 17:47 | PT.OPPOC ---
Physical, Occupational & Speech Therapy At [facility] Current Diagnoses Iliotibial band syndrome, unspecified leg (02/27/21) Other abnormalities of gait and mobility (02/27/21) Weakness (02/27/21) Visit Care Team Role Provider Type Cirilo Bryan MD Attending Provider Physician Primary Care Provider Referring Provider Specialty: [facility] Address: [address] [place] [address], [facility] Email: [email or web address] Plan Of Care PT-OP-T Assessment and Plan Start: 02/23/21 07:34 Freq: Status: Active Protocol: Document 02/27/21 08:20 [facility] (Rec: 02/27/21 09:02 [facility] [id number]) Physical Therapy Assessment Rehab Potential Rehabilitation Potential Good Evaluation Complexity Number of Personal Factors/Comorbidities 3 or More Number of Body Systems Impaired 4 or More Clinical Presentation at Evaluation Evolving Impairments Impairments Activity Tolerance,Balance, Functional Activities, Functional Mobility,Gait,Pain, Posture,ROM,Soft Tissue Mobility,Strength,Transfers Goals gait Short Term Goal (STG) pt will amb w/good arm swing w /o cues at least 75% of the time STG Duration 04/26/21 Cost Accounting Manager Goal (LTG) Pt will return to walking w/ friends at least 5 days a week w/no more than c/o minimal pain LTG Duration 05/30/21 strength Short Term Goal (STG) Pt will be indep w/ HEP STG Duration 04/08/21 Fpc Goal (LTG) Pt will improve LE strenth by MMT in all planes B to show improved LE stability to improve pt's functional ability. LTG Duration 04/29/21 ADLs Fpc Goal (LTG) Pt will be able to do dressing indep w/o inc pain. LTG Duration 05/30/21 sit to stand Short Term Goal (STG) pt will improve 5x sit to stand time to 12 sec in order to show improved strength and stability along w/greater ease for transitional movement.s STG Duration 04/08/21 Cost Accounting Manager Goal (LTG) Pt will improve 30 sec sit to stand test to be able to achieve at least 12 sit to stands to show imrpoved stength and improved ease w/ transitional movements. LTG Duration 04/29/21 balance Short Term Goal (STG) Pt will improve DGI score to at least 20/24 to show improved balancea nd dec risk for falls. STG Duration 04/08/21 Cost Accounting Manager Goal (LTG) Pt will improve FGA score to at least 20/30 to show improved balance and dec risk for falls LTG Duration 05/30/21 Assessment Summary Assessment Pt presents w/onset earlier this year of L hip/leg pain that pt reports comes on often w/LBP. Possible positive for neural tension testing on L side. She does have weakness of LLE from history of seizures and brain surgery 2 years ago leaving her w/L sided weakness, but pt is weaker than she has tested in prior bouts of PT in the past. She also shows significant balance deficits, considerably worse since last attending PT early this year along w/ signficiantly more impaired gait. She is having pain w/ ADLs which has made her more dependent on more for dressing and bathing which she can typically do herself. Pt would benefit from skilled PT to work on these deficits and return her to her typical level of function. Physical Therapy Plan Frequency and Duration Frequency of Treatment 1-2x/week Duration of Treatment 3 months Plan of Care Start Date 02/27/21 Plan of Care End Date 05/30/21 Therapeutic Interventions Therapeutic Interventions Aquatic Therapy,Balance Training,Gait Training,Home Exercise Program,Joint Mobilizations,Manual Therapy, Neuromuscular Re-education, Patient/Caregiver Education, Self-Care/Home Management,Soft Tissue Mobilization,Taping, Therapeutic Activities, Therapeutic Exercises Modalities Cold Pack/Ice Massage,Hot Packs,Ultrasound Next Visit Focus/Plan Next Note Type Treatment Note Next Visit Plan administer HEP: pelvic tilt, bridge, sit to stand, s/l or supine clamshell,LAQ, balance board, STM to ITB L Plan of Care Dates Plan of Care Start Date 02/27/21 Plan of Care End Date 05/30/21 Electronically Signed by: Lilibeth Schroeder, PT 02/28/21 4044 Please Sign and Return: I have reviewed this Plan of Care and certify that the skilled therapy services above are required to meet the patient?s needs. Physician Signature Date Printed Name and Credentials Clinical Instructor Signature Printed Name and Credentials
--- NOTE | 2021-02-27 17:47 | PT.OIE ---
Current Diagnoses Iliotibial band syndrome, unspecified leg (02/27/21) Other abnormalities of gait and mobility (02/27/21) Weakness (02/27/21) Past Medical History (Last Reviewed 01/24/21 @ 04:11 by Preeti Allan DO) Anxiety and depression Fatigue due to depression Insomnia disorder with non-sleep disorder mental comorbidity IT band syndrome Mixed incontinence urge and stress Seizure disorder Selective mutism as adjustment reaction Visit Care Team Role Provider Type Cirilo Bryan MD Attending Provider Physician Primary Care Provider Referring Provider Specialty: [facility] Address: [address] [place] [address] Email: [email or web address] Physical Therapy Initial Evaluation PT-OP-A Visit Information Start: 02/23/21 07:34 Freq: Status: Active Protocol: Document 02/27/21 08:20 [facility] (Rec: 02/27/21 09:02 [facility] [id number]) Out-Patient Physical Therapy Visit Information Visit Information Visit Type Initial Evaluation Visit Start Time 08:18 Visit Stop Time 08:58 Total Visit Minutes 40 Visit Number 1 Number of DENTAL INSURANCE BILLER Visits 0 PT-OP-B Current Condition Start: 02/23/21 07:34 Freq: Status: Active Protocol: Document 02/27/21 08:20 [facility] (Rec: 02/27/21 09:02 [facility] [id number]) Current Condition History of Current Condition Onset Date 7-10 months ago Current Complaints L thigh and L hip History of Current Condition no known onset of L hip pain. Pt reports pain has gotten worse over time. tPt reprots pain at night when trying to sleep and when wakling, standing extended, sitting extened. Notes ADLs her mom has been helping w/getting dressed d/t pain and limit in strength. Prior to pain, pt was dressing indep. Pt reports L side balance has gotten worse recently. Notes she feels like her dec vision oout of her L eye dec hher balance and makes her bump into things. Still walks to [place] with friends 1-2x/week. Prior to the pain, pt was walking daily. Pt reports she has been walking slowly dt pain. Pt reports sometimes falling in the house. Pt reports she often catches her foot on the coffee table and has fallen to the ground. Notes only bruising w/those falls. 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 Pt reprots back pain that comes on at same time as leg pain,. Prior Treatments and Tests PT in past for balance whcih helps Treatment Goals Patient/Caregiver Goals REturn to walking daily, returnt o being able to dress indep, PT-OP-C Subjective Start: 02/23/21 07:34 Freq: Status: Active Protocol: Document 02/27/21 08:20 [facility] (Rec: 02/27/21 09:02 [facility] [id number]) Patient Questionnaires Lower Extremity Functional Scale LEFS Score 2 OP-PT Pain Assessment Location L hip/thigh Pain Location Details Lat Intensity 10 Description Sharp Description- Other stinging Frequency Intermittent Pain Aggravating Factors ADL's,Standing,Sitting,Walking Other Pain Aggravating Factors mid day, at night when trying to sleep, Pain Alleviating Factors None Other Pain Alleviating Factors tried ice and heat w/o help PT-OP-D Balance Start: 02/23/21 07:34 Freq: Status: Active Protocol: Document 02/27/21 08:20 [facility] (Rec: 02/27/21 09:02 [facility] [id number]) Balance Tests Single Limb Standing Single Limb- Right 14 sec w. lat lean Single Limb- Left unable even for full sec PT-OP-E Functional Tests Start: 02/23/21 07:34 Freq: Status: Active Protocol: Document 02/27/21 08:20 [facility] (Rec: 02/27/21 09:02 [facility] [id number]) Functional Tests 6 Minute Walk Test Distance 566ft Comments 1 break in chair 30 Second Sit to Stand Test Score 8x Dynamic Gait Index (DGI) Score 13 Five Times Sit to Stand Test Score 19 sec Functional Gait Assessment Score 10 PT-OP-F Manual Assessment Start: 02/23/21 07:34 Freq: Status: Active Protocol: Document 02/27/21 08:20 [facility] (Rec: 02/27/21 09:02 [facility] [id number]) Manual Assessments Soft Tissue Assessment Soft Tissue Mobility Assessment tight and tender: ITB, quads, glutes, HS L PT-OP-G Mobility & Gait Start: 02/23/21 07:34 Freq: Status: Active Protocol: Document 02/27/21 08:20 [facility] (Rec: 02/27/21 09:02 [facility] [id number]) OP Gait Assessment Comments Gait Comments dec push off and lat lean especailly when on LLE, keeps hands clasped in front of her. PT-OP-K Range of Motion Start: 02/23/21 07:34 Freq: Status: Active Protocol: Document 02/27/21 08:20 [facility] (Rec: 02/27/21 09:02 [facility] [id number]) Hip Goniometric Range of Motion Hip Right Active Flexion w/Knee Flexed 78 Straight Leg Raise 68 Internal Rotation 30 External Rotation 17 Left Active Flexion w/Knee Flexed 41 Straight Leg Raise 40 Internal Rotation 4 External Rotation 8 Comments pain w/ROM; SLR passive B PT-OP-L Special Tests Start: 02/23/21 07:34 Freq: Status: Active Protocol: Document 02/27/21 08:20 [facility] (Rec: 02/27/21 09:02 [facility] [id number]) Special Tests Hip Special Tests Danielle's test Test Results L positive slump Test Results posivie for pain in L lat thigh Straight Leg Raise Test Results pain in lat thigh L PT-OP-M Strength Start: 02/23/21 07:34 Freq: Status: Active Protocol: Document 02/27/21 08:20 [facility] (Rec: 02/27/21 09:02 [facility] [id number]) Hip Strength Hip Manual Muscle Testing Right Flexion (L2) 4+ Good+ Extension (S1) 3- Fair- Abduction 3+ Fair+ Adduction 3 Fair External Rotation 4- Good- Internal Rotation 4 Good Left Flexion (L2) 3 Fair Extension (S1) 2+ Poor+ Abduction 3 Fair Adduction 3- Fair- External Rotation 3- Fair- Internal Rotation 3- Fair- Knee Strength Knee Manual Muscle Testing Right Flexion (S2) 4 Good Extension (L3) 4+ Good+ Left Flexion (S2) 3 Fair Extension (L3) 3 Fair Ankle/Foot Strength Ankle and Foot Manual Muscle Testing Right Dorsiflexion (L4) 5 Normal Plantarflexion (S1) 5 Normal Comments PF tested seated Left Dorsiflexion (L4) 2- Poor- Plantarflexion (S1) 2- Poor- PT-OP-T Assessment and Plan Start: 02/23/21 07:34 Freq: Status: Active Protocol: Document 02/27/21 08:20 [facility] (Rec: 02/27/21 09:02 [facility] [id number]) Physical Therapy Assessment Rehab Potential Rehabilitation Potential Good Evaluation Complexity Number of Personal Factors/Comorbidities 3 or More Number of Body Systems Impaired 4 or More Clinical Presentation at Evaluation Evolving Impairments Impairments Activity Tolerance,Balance, Functional Activities, Functional Mobility,Gait,Pain, Posture,ROM,Soft Tissue Mobility,Strength,Transfers Goals gait Short Term Goal (STG) pt will amb w/good arm swing w /o cues at least 75% of the time STG Duration 04/26/21 Healthcare Project Manager Goal (LTG) Pt will return to walking w/ friends at least 5 days a week w/no more than c/o minimal pain LTG Duration 05/30/21 strength Short Term Goal (STG) Pt will be indep w/ HEP STG Duration 04/08/21 Mcfp Goal (LTG) Pt will improve LE strenth by MMT in all planes B to show improved LE stability to improve pt's functional ability. LTG Duration 04/29/21 ADLs Mcfp Goal (LTG) Pt will be able to do dressing indep w/o inc pain. LTG Duration 05/30/21 sit to stand Short Term Goal (STG) pt will improve 5x sit to stand time to 12 sec in order to show improved strength and stability along w/greater ease for transitional movement.s STG Duration 04/08/21 Healthcare Project Manager Goal (LTG) Pt will improve 30 sec sit to stand test to be able to achieve at least 12 sit to stands to show imrpoved stength and improved ease w/ transitional movements. LTG Duration 04/29/21 balance Short Term Goal (STG) Pt will improve DGI score to at least 20/24 to show improved balancea nd dec risk for falls. STG Duration 04/08/21 Mcfp Goal (LTG) Pt will improve FGA score to at least 20/30 to show improved balance and dec risk for falls LTG Duration 05/30/21 Assessment Summary Assessment Pt presents w/onset earlier this year of L hip/leg pain that pt reports comes on often w/LBP. Possible positive for neural tension testing on L side. She does have weakness of LLE from history of seizures and brain surgery 2 years ago leaving her w/L sided weakness, but pt is weaker than she has tested in prior bouts of PT in the past. She also shows significant balance deficits, considerably worse since last attending PT early this year along w/ signficiantly more impaired gait. She is having pain w/ ADLs which has made her more dependent on more for dressing and bathing which she can typically do herself. Pt would benefit from skilled PT to work on these deficits and return her to her typical level of function. Physical Therapy Plan Frequency and Duration Frequency of Treatment 1-2x/week Duration of Treatment 3 months Plan of Care Start Date 02/27/21 Plan of Care End Date 05/30/21 Therapeutic Interventions Therapeutic Interventions Aquatic Therapy,Balance Training,Gait Training,Home Exercise Program,Joint Mobilizations,Manual Therapy, Neuromuscular Re-education, Patient/Caregiver Education, Self-Care/Home Management,Soft Tissue Mobilization,Taping, Therapeutic Activities, Therapeutic Exercises Modalities Cold Pack/Ice Massage,Hot Packs,Ultrasound Next Visit Focus/Plan Next Note Type Treatment Note Next Visit Plan administer HEP: pelvic tilt, bridge, sit to stand, s/l or supine DEONDRE bain, balance board, STM to ITB L
--- NOTE | 2021-03-08 10:34 | PT.OTN ---
Current Diagnoses Iliotibial band syndrome, unspecified leg (03/08/21) Other abnormalities of gait and mobility (03/08/21) Weakness (03/08/21) Physical Therapy Treatment Note PT-OP-A Visit Information Start: 02/23/21 07:34 Freq: Status: Active Protocol: Document 03/08/21 09:53 [facility] (Rec: 03/08/21 10:34 [facility] [id number]) Out-Patient Physical Therapy Visit Information Visit Information Visit Type Treatment Note Visit Start Time 09:48 Visit Stop Time 10:28 Total Visit Minutes 40 Visit Number 2 Number of ELEVATOR CONSTRUCTOR ELECTRIC Visits 0 PT-OP-B Current Condition Start: 02/23/21 07:34 Freq: Status: Active Protocol: Document 02/27/21 08:20 [facility] (Rec: 02/27/21 09:02 [facility] [id number]) Current Condition History of Current Condition Onset Date 7-10 months ago Current Complaints L thigh and L hip History of Current Condition no known onset of L hip pain. Pt reports pain has gotten worse over time. tPt reprots pain at night when trying to sleep and when wakling, standing extended, sitting extened. Notes ADLs her mom has been helping w/getting dressed d/t pain and limit in strength. Prior to pain, pt was dressing indep. Pt reports L side balance has gotten worse recently. Notes she feels like her dec vision oout of her L eye dec hher balance and makes her bump into things. Still walks to [employer] with friends 1-2x/week. Prior to the pain, pt was walking daily. Pt reports she has been walking slowly dt pain. Pt reports sometimes falling in the house. Pt reports she often catches her foot on the coffee table and has fallen to the ground. Notes only bruising w/those falls. 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 Pt reprots back pain that comes on at same time as leg pain,. Prior Treatments and Tests PT in past for balance whcih helps Treatment Goals Patient/Caregiver Goals REturn to walking daily, returnt o being able to dress indep, PT-OP-C Subjective Start: 02/23/21 07:34 Freq: Status: Active Protocol: Document 03/08/21 09:53 [facility] (Rec: 03/08/21 10:34 [facility] [id number]) OP-PT Subjective Patient Comments Patient Comments no change w/pain PT-OP-D Balance Start: 02/23/21 07:34 Freq: Status: Active Protocol: Document 02/27/21 08:20 [facility] (Rec: 02/27/21 09:02 [facility] [id number]) Balance Tests Single Limb Standing Single Limb- Right 14 sec w. lat lean Single Limb- Left unable even for full sec PT-OP-E Functional Tests Start: 02/23/21 07:34 Freq: Status: Active Protocol: Document 02/27/21 08:20 [facility] (Rec: 02/27/21 09:02 [facility] [id number]) Functional Tests 6 Minute Walk Test Distance 566ft Comments 1 break in chair 30 Second Sit to Stand Test Score 8x Dynamic Gait Index (DGI) Score 13 Five Times Sit to Stand Test Score 19 sec Functional Gait Assessment Score 10 PT-OP-F Manual Assessment Start: 02/23/21 07:34 Freq: Status: Active Protocol: Document 02/27/21 08:20 [facility] (Rec: 02/27/21 09:02 [facility] [id number]) Manual Assessments Soft Tissue Assessment Soft Tissue Mobility Assessment tight and tender: ITB, quads, glutes, HS L PT-OP-G Mobility & Gait Start: 02/23/21 07:34 Freq: Status: Active Protocol: Document 02/27/21 08:20 [facility] (Rec: 02/27/21 09:02 [facility] [id number]) OP Gait Assessment Comments Gait Comments dec push off and lat lean especailly when on LLE, keeps hands clasped in front of her. PT-OP-K Range of Motion Start: 02/23/21 07:34 Freq: Status: Active Protocol: Document 02/27/21 08:20 [facility] (Rec: 02/27/21 09:02 [facility] [id number]) Hip Goniometric Range of Motion Hip Right Active Flexion w/Knee Flexed 78 Straight Leg Raise 68 Internal Rotation 30 External Rotation 17 Left Active Flexion w/Knee Flexed 41 Straight Leg Raise 40 Internal Rotation 4 External Rotation 8 Comments pain w/ROM; SLR passive B PT-OP-L Special Tests Start: 02/23/21 07:34 Freq: Status: Active Protocol: Document 02/27/21 08:20 [facility] (Rec: 02/27/21 09:02 [facility] [id number]) Special Tests Hip Special Tests Danielle's test Test Results L positive slump Test Results posivie for pain in L lat thigh Straight Leg Raise Test Results pain in lat thigh L PT-OP-M Strength Start: 02/23/21 07:34 Freq: Status: Active Protocol: Document 02/27/21 08:20 [facility] (Rec: 02/27/21 09:02 [facility] [id number]) Hip Strength Hip Manual Muscle Testing Right Flexion (L2) 4+ Good+ Extension (S1) 3- Fair- Abduction 3+ Fair+ Adduction 3 Fair External Rotation 4- Good- Internal Rotation 4 Good Left Flexion (L2) 3 Fair Extension (S1) 2+ Poor+ Abduction 3 Fair Adduction 3- Fair- External Rotation 3- Fair- Internal Rotation 3- Fair- Knee Strength Knee Manual Muscle Testing Right Flexion (S2) 4 Good Extension (L3) 4+ Good+ Left Flexion (S2) 3 Fair Extension (L3) 3 Fair Ankle/Foot Strength Ankle and Foot Manual Muscle Testing Right Dorsiflexion (L4) 5 Normal Plantarflexion (S1) 5 Normal Comments PF tested seated Left Dorsiflexion (L4) 2- Poor- Plantarflexion (S1) 2- Poor- PT-OP-Q Treatments Start: 02/23/21 07:34 Freq: Status: Active Protocol: Document 03/08/21 09:53 [facility] (Rec: 03/08/21 10:34 [facility] [id number]) Cardio Equipment Recumbent Elliptical (Biodex) Duration (Minutes) 5 Resistance 4 Seat Position 7 Gym Equipment Shuttle Balance red clips Details Tossing balloon alternating hands Comments Fwd: WBOS & NBOS & staggered stance side:W DANNA & NBOS Therapeutic Exercises Supine Exercises stretch Supine Exercise Name HS Side bilateral Reps/Minutes 30 sec ea hip ER Side bilateral Equipment Used L3 Reps/Minutes 20 SLR Supine Exercise Name focus on core & back neutral Side bilateral Reps/Minutes 10 bridge Side bilateral Reps/Minutes 2sec x15 Sidelying Exercises clamshell Comments attempted on L but too difficult on her won Sitting Exercises LAQ Side left Reps/Minutes 15 Standing Exercises sit to stand Side bilateral Reps/Minutes 12 Comments w/PT helping w/knee tracking w /max cues Manual Therapy Treatment Soft Tissue Mobilization ITB Body Location L Mobilization Type Rolling,Strumming Intensity/Depth Moderate Body Position Sidelying Comments superficial progressed to moderate pressure PT-OP-T Assessment and Plan Start: 02/23/21 07:34 Freq: Status: Active Protocol: Document 03/08/21 09:53 [facility] (Rec: 03/08/21 10:34 [facility] [id number]) Physical Therapy Assessment Goals gait Short Term Goal (STG) pt will amb w/good arm swing w /o cues at least 75% of the time STG Duration 04/26/21 Assisted Goal (LTG) Pt will return to walking w/ friends at least 5 days a week w/no more than c/o minimal pain LTG Duration 05/30/21 strength Short Term Goal (STG) Pt will be indep w/ HEP STG Duration 04/08/21 Spanish Interpreter/Translator Goal (LTG) Pt will improve LE strenth by MMT in all planes B to show improved LE stability to improve pt's functional ability. LTG Duration 04/29/21 ADLs Assisted Goal (LTG) Pt will be able to do dressing indep w/o inc pain. LTG Duration 05/30/21 sit to stand Short Term Goal (STG) pt will improve 5x sit to stand time to 12 sec in order to show improved strength and stability along w/greater ease for transitional movement.s STG Duration 04/08/21 Spanish Interpreter/Translator Goal (LTG) Pt will improve 30 sec sit to stand test to be able to achieve at least 12 sit to stands to show imrpoved stength and improved ease w/ transitional movements. LTG Duration 04/29/21 balance Short Term Goal (STG) Pt will improve DGI score to at least 20/24 to show improved balancea nd dec risk for falls. STG Duration 04/08/21 Assisted Goal (LTG) Pt will improve FGA score to at least 20/30 to show improved balance and dec risk for falls LTG Duration 05/30/21 Assessment Summary Assessment Pt required max cueing for form during exercises especailly for LLE knee placement and foot placement for set up and during exercises. She was cahllenged by balance board today. Physical Therapy Plan Frequency and Duration Frequency of Treatment 1-2x/week Duration of Treatment 3 months Plan of Care Start Date 02/27/21 Plan of Care End Date 05/30/21 Next Visit Focus/Plan Next Note Type Treatment Note Next Visit Plan review HEP: SLR, bridge, sit to stand, supine DEONDRE bain, balance board, STM to ITB L
--- NOTE | 2021-03-16 10:01 | PT-OP ANOTE ---
Pt's home and cell called. message left on cell phone but unable to leave message on home phone. Grandparents called and stated pt is in [facility] for kidney issues and phone is . Grandma notified of next appt time.
--- NOTE | 2021-04-11 13:45 | PT.OTN ---
Current Diagnoses Iliotibial band syndrome, unspecified leg (04/11/21) Other abnormalities of gait and mobility (04/11/21) Weakness (04/11/21) Physical Therapy Treatment Note PT-OP-A Visit Information Start: 02/23/21 07:34 Freq: Status: Active Protocol: Document 04/11/21 12:59 [facility] (Rec: 04/11/21 13:44 [facility] [id number]) Out-Patient Physical Therapy Visit Information Visit Information Visit Type Re-Evaluation Visit Note re-eval d/t hospitalization Visit Start Time 13:00 Visit Stop Time 13:40 Total Visit Minutes 40 Visit Number 3 Number of FITTINGS TIGHTENER Visits 0 PT-OP-B Current Condition Start: 02/23/21 07:34 Freq: Status: Active Protocol: Document 02/27/21 08:20 [facility] (Rec: 02/27/21 09:02 [facility] [id number]) Current Condition History of Current Condition Onset Date 7-10 months ago Current Complaints L thigh and L hip History of Current Condition no known onset of L hip pain. Pt reports pain has gotten worse over time. tPt reprots pain at night when trying to sleep and when wakling, standing extended, sitting extened. Notes ADLs her mom has been helping w/getting dressed d/t pain and limit in strength. Prior to pain, pt was dressing indep. Pt reports L side balance has gotten worse recently. Notes she feels like her dec vision oout of her L eye dec hher balance and makes her bump into things. Still walks to [place] with friends 1-2x/week. Prior to the pain, pt was walking daily. Pt reports she has been walking slowly dt pain. Pt reports sometimes falling in the house. Pt reports she often catches her foot on the coffee table and has fallen to the ground. Notes only bruising w/those falls. 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 Pt reprots back pain that comes on at same time as leg pain,. Prior Treatments and Tests PT in past for balance whcih helps Treatment Goals Patient/Caregiver Goals REturn to walking daily, returnt o being able to dress indep, PT-OP-C Subjective Start: 02/23/21 07:34 Freq: Status: Active Protocol: Document 04/11/21 12:59 [facility] (Rec: 04/11/21 13:44 [facility] [id number]) OP-PT Subjective Patient Comments Patient Comments Pt was hospitalized for kidney infection and returned home last month. She reprots no back pain now but sitll L hip pain. PT-OP-D Balance Start: 02/23/21 07:34 Freq: Status: Active Protocol: Document 02/27/21 08:20 [facility] (Rec: 02/27/21 09:02 [facility] [id number]) Balance Tests Single Limb Standing Single Limb- Right 14 sec w. lat lean Single Limb- Left unable even for full sec PT-OP-E Functional Tests Start: 02/23/21 07:34 Freq: Status: Active Protocol: Document 04/11/21 12:59 [facility] (Rec: 04/11/21 13:44 [facility] [id number]) Functional Tests 30 Second Sit to Stand Test Score 9x Dynamic Gait Index (DGI) Score 12 Five Times Sit to Stand Test Score 16sec Functional Gait Assessment Score 11 PT-OP-F Manual Assessment Start: 02/23/21 07:34 Freq: Status: Active Protocol: Document 02/27/21 08:20 [facility] (Rec: 02/27/21 09:02 [facility] [id number]) Manual Assessments Soft Tissue Assessment Soft Tissue Mobility Assessment tight and tender: ITB, quads, glutes, HS L PT-OP-G Mobility & Gait Start: 02/23/21 07:34 Freq: Status: Active Protocol: Document 02/27/21 08:20 [facility] (Rec: 02/27/21 09:02 [facility] [id number]) OP Gait Assessment Comments Gait Comments dec push off and lat lean especailly when on LLE, keeps hands clasped in front of her. PT-OP-K Range of Motion Start: 02/23/21 07:34 Freq: Status: Active Protocol: Document 02/27/21 08:20 [facility] (Rec: 02/27/21 09:02 [facility] [id number]) Hip Goniometric Range of Motion Hip Right Active Flexion w/Knee Flexed 78 Straight Leg Raise 68 Internal Rotation 30 External Rotation 17 Left Active Flexion w/Knee Flexed 41 Straight Leg Raise 40 Internal Rotation 4 External Rotation 8 Comments pain w/ROM; SLR passive B PT-OP-L Special Tests Start: 02/23/21 07:34 Freq: Status: Active Protocol: Document 02/27/21 08:20 [facility] (Rec: 02/27/21 09:02 [facility] [id number]) Special Tests Hip Special Tests Danielle's test Test Results L positive slump Test Results posivie for pain in L lat thigh Straight Leg Raise Test Results pain in lat thigh L PT-OP-M Strength Start: 02/23/21 07:34 Freq: Status: Active Protocol: Document 04/11/21 12:59 [facility] (Rec: 04/11/21 13:44 [facility] [id number]) Hip Strength Hip Manual Muscle Testing Right Flexion (L2) 4+ Good+ Extension (S1) 3 Fair Abduction 4- Good- Adduction 4+ Good+ External Rotation 3+ Fair+ Internal Rotation 3+ Fair+ Left Flexion (L2) 3+ Fair+ Extension (S1) 3 Fair Abduction 3+ Fair+ Adduction 3 Fair External Rotation 3 Fair Internal Rotation 3+ Fair+ Knee Strength Knee Manual Muscle Testing Right Flexion (S2) 4+ Good+ Extension (L3) 4+ Good+ Left Flexion (S2) 3+ Fair+ Extension (L3) 3+ Fair+ Ankle/Foot Strength Ankle and Foot Manual Muscle Testing Right Dorsiflexion (L4) 5 Normal Plantarflexion (S1) 5 Normal Comments PF tested seated Left Dorsiflexion (L4) 2- Poor- Plantarflexion (S1) 2- Poor- Comments PF tested seated PT-OP-Q Treatments Start: 02/23/21 07:34 Freq: Status: Active Protocol: Document 04/11/21 12:59 [facility] (Rec: 04/11/21 13:44 [facility] [id number]) Cardio Equipment Recumbent Stepper (Sci-Fit) Duration (Minutes) 5 Resistance 5 Seat Position 8 Gym Equipment Shuttle Balance red clips Details Tossing balloon alternating hands Comments Fwd: WBOS & NBOS & staggered stance side:WBOS & NBOS Therapeutic Exercises Supine Exercises stretch Supine Exercise Name HS Side bilateral Reps/Minutes 30 sec ea hip ER Side bilateral Equipment Used L3 Reps/Minutes 20 SLR Supine Exercise Name focus on core & back neutral Side bilateral Reps/Minutes 10 bridge Side bilateral Reps/Minutes 4 sec x10 Sitting Exercises LAQ Side left Reps/Minutes 20 Standing Exercises sit to stand Side bilateral Reps/Minutes 10 PT-OP-T Assessment and Plan Start: 02/23/21 07:34 Freq: Status: Active Protocol: Document 04/11/21 12:59 [facility] (Rec: 04/11/21 13:44 [facility] [id number]) Physical Therapy Assessment Goals gait Short Term Goal (STG) pt will amb w/good arm swing w /o cues at least 75% of the time 04/11-needs cues STG Duration 06/06/21 Intermediate Goal (LTG) Pt will return to walking w/ friends at least 5 days a week w/no more than c/o minimal pain 04/11-not been walking d/t hospitalization LTG Duration 07/12/20 strength Short Term Goal (STG) Pt will be indep w/ HEP 04/11-not since hospitalized STG Duration 05/12/21 Intermediate Goal (LTG) Pt will improve LE strenth by MMT in all planes B to show improved LE stability to improve pt's functional ability. LTG Duration 07/12/20 ADLs Plasterer Journeyman Goal (LTG) Pt will be able to do dressing indep w/o inc pain. LTG Duration 07/12/20 sit to stand Short Term Goal (STG) pt will improve 5x sit to stand time to 12 sec in order to show improved strength and stability along w/greater ease for transitional movement.s STG Duration 06/06/21 Intermediate Goal (LTG) Pt will improve 30 sec sit to stand test to be able to achieve at least 12 sit to stands to show imrpoved stength and improved ease w/ transitional movements. LTG Duration 07/12/20 balance Short Term Goal (STG) Pt will improve DGI score to at least 20/24 to show improved balancea nd dec risk for falls. STG Duration 05/27/21 Plasterer Journeyman Goal (LTG) Pt will improve FGA score to at least 20/30 to show improved balance and dec risk for falls LTG Duration 07/12/20 Assessment Summary Assessment Pt did better with some strength testing and worse w/ some balance likely d/t not exercising the past month but overall likely feels better d/ t no longer having kidney infection. Pt is re-evaulated d/t hosptitalization until last week d/t kidney infection . She has not shown much progress d/t so far only attending 2 appts inclduing IE . Cues given for reminder w/ exercises. Physical Therapy Plan Frequency and Duration Frequency of Treatment 1-2x/week Duration of Treatment 3 months Plan of Care Start Date 04/11/21 Plan of Care End Date 07/12/20 Therapeutic Interventions Therapeutic Interventions Aquatic Therapy,Balance Training,Gait Training,Home Exercise Program,Joint Mobilizations,Manual Therapy, Neuromuscular Re-education, Patient/Caregiver Education, Self-Care/Home Management,Soft Tissue Mobilization,Taping, Therapeutic Activities, Therapeutic Exercises Modalities Cold Pack/Ice Massage,Hot Packs,Ultrasound Next Visit Focus/Plan Next Note Type Treatment Note Next Visit Plan review HEP: SLR, bridge, sit to stand, supine ELIUD bainQ, balance board, STM to ITB L
--- NOTE | 2021-04-11 13:45 | PT.OPPOC ---
Physical, Occupational & Speech Therapy At [facility] Current Diagnoses Iliotibial band syndrome, unspecified leg (04/11/21) Other abnormalities of gait and mobility (04/11/21) Weakness (04/11/21) Visit Care Team Role Provider Type Cirilo Bryan MD Attending Provider Physician Primary Care Provider Referring Provider Specialty: [facility] Address: [address] [place] [address], [facility] Email: [email or web address] Plan Of Care PT-OP-T Assessment and Plan Start: 02/23/21 07:34 Freq: Status: Active Protocol: Document 04/11/21 12:59 [facility] (Rec: 04/11/21 13:44 [facility] [id number]) Physical Therapy Assessment Goals gait Short Term Goal (STG) pt will amb w/good arm swing w /o cues at least 75% of the time 04/11-needs cues STG Duration 06/06/21 Underwear Cutter Goal (LTG) Pt will return to walking w/ friends at least 5 days a week w/no more than c/o minimal pain 04/11-not been walking d/t hospitalization LTG Duration 07/12/20 strength Short Term Goal (STG) Pt will be indep w/ HEP 04/11-not since hospitalized STG Duration 05/12/21 Underwear Cutter Goal (LTG) Pt will improve LE strenth by MMT in all planes B to show improved LE stability to improve pt's functional ability. LTG Duration 07/12/20 ADLs Underwear Cutter Goal (LTG) Pt will be able to do dressing indep w/o inc pain. LTG Duration 07/12/20 sit to stand Short Term Goal (STG) pt will improve 5x sit to stand time to 12 sec in order to show improved strength and stability along w/greater ease for transitional movement.s STG Duration 06/06/21 Half-Way Goal (LTG) Pt will improve 30 sec sit to stand test to be able to achieve at least 12 sit to stands to show imrpoved stength and improved ease w/ transitional movements. LTG Duration 07/12/20 balance Short Term Goal (STG) Pt will improve DGI score to at least 20/24 to show improved balancea nd dec risk for falls. STG Duration 05/27/21 Half-Way Goal (LTG) Pt will improve FGA score to at least 20/30 to show improved balance and dec risk for falls LTG Duration 07/12/20 Assessment Summary Assessment Pt did better with some strength testing and worse w/ some balance likely d/t not exercising the past month but overall likely feels better d/ t no longer having kidney infection. Pt is re-evaulated d/t hosptitalization until last week d/t kidney infection . She has not shown much progress d/t so far only attending 2 appts inclduing IE . Cues given for reminder w/ exercises. Physical Therapy Plan Frequency and Duration Frequency of Treatment 1-2x/week Duration of Treatment 3 months Plan of Care Start Date 04/11/21 Plan of Care End Date 07/12/20 Therapeutic Interventions Therapeutic Interventions Aquatic Therapy,Balance Training,Gait Training,Home Exercise Program,Joint Mobilizations,Manual Therapy, Neuromuscular Re-education, Patient/Caregiver Education, Self-Care/Home Management,Soft Tissue Mobilization,Taping, Therapeutic Activities, Therapeutic Exercises Modalities Cold Pack/Ice Massage,Hot Packs,Ultrasound Next Visit Focus/Plan Next Note Type Treatment Note Next Visit Plan review HEP: SLR, bridge, sit to stand, supine clamshell, LAQ, balance board, STM to ITB L Plan of Care Dates Plan of Care Start Date 04/11/21 Plan of Care End Date 07/12/20 Electronically Signed by: Lilibeth cShroeder, PT 04/11/21 7904 Please Sign and Return: I have reviewed this Plan of Care and certify that the skilled therapy services above are required to meet the patient?s needs. Physician Signature Date Printed Name and Credentials Clinical Instructor Signature Printed Name and Credentials
--- NOTE | 2021-04-21 10:57 | PT-OP ANOTE ---
Called and left for pt and her mother about next appt. Called grandmother who answered phone and informed PT that pt is at a sleep study down in [place] today. She will remind pt of next appt on 04/26.
--- NOTE | 2021-04-26 16:55 | PT.OPDS ---
Current Diagnoses Iliotibial band syndrome, unspecified leg (04/11/21) Other abnormalities of gait and mobility (04/11/21) Weakness (04/11/21) Visit Care Team Role Provider Type Cirilo Bryan MD Attending Provider Physician Primary Care Provider Referring Provider Specialty: Family Practice Address: [address] [place] [address], [facility] Email: [email or web address] Visit Number Visit Number 3 Discharge Summary PT-OP-T Assessment and Plan Start: 02/23/21 07:34 Freq: Status: Active Protocol: Document 04/26/21 16:55 [facility] (Rec: 04/26/21 16:55 [facility] [id number]) Physical Therapy Assessment Assessment Summary Assessment Pt no showed 2 appts in a row so at this time pt is DC d/t noncompliance. Physical Therapy Plan Discharge Physical Therapy Discharge Comments 2 no shows
== END 2021-08-08 09:51 ==
LOC: PHYS 13:00
PROVIDERS: PCP Family Medicine; Referring Provider Family Medicine; Visit Provider Family Medicine
DX: M76.30 Iliotibial band syndrome, unspecified leg (principal); R53.1 Weakness; R26.89 Other abnormalities of gait and mobility
CPT/HCPCS: 97110; 97112; 97140; 97162; 97164

== ENCOUNTER 2021-07-16 20:30 | Emergency (ER) | payer OTHER, MEDICAID, SELFPAY ==
--- NOTE | 2021-07-16 20:46 | DI.RAD.S_ITS ---
PROCEDURE: XR ANKLE LT MIN 3V INDICATIONS: fall, foot/ankle pain TECHNIQUE: 3 views of the ankle were acquired. COMPARISON: [facility], CR, XR ANKLE RT MIN 3V, 11/14/2020, 15:51. FINDINGS: Bones: No acute fractures or dislocations. Ankle mortise is normally aligned. No suspicious bony lesions. Soft tissues: No tibiotalar joint effusion. Achilles tendon appears normal. Moderate soft tissue swelling of the left forefoot and ankle. IMPRESSION: Soft tissue swelling of the left ankle and left forefoot without underlying fracture or dislocation. If there is persistent clinical concern for occult fracture given adequate mechanism of injury, consider repeat imaging in 10-14 days. Dictated by: Roddy Degroot M.D. on 07/16/2021 at 21:07 Approved by: Roddy Degroot M.D. on 07/16/2021 at 21:09
--- NOTE | 2021-07-16 20:46 | DI.RAD.S_ITS ---
PROCEDURE: XR FOOT LT MIN 3V INDICATIONS: fall, foot/ankle pain TECHNIQUE: 3 views of the foot were acquired. COMPARISON: [facility], CR, XR FOOT RT MIN 3V, 11/14/2020, 15:51. FINDINGS: Bones: No definite acute fractures or dislocations. No suspicious bony lesions. Soft tissues: No tibiotalar joint effusion. Achilles tendon appears normal. Moderate soft tissue swelling of the left foot IMPRESSION: Moderate left forefoot soft tissue swelling without definite underlying fracture or dislocation. If there is persistent clinical concern for occult fracture given adequate mechanism of injury, consider repeat imaging in 10-14 days. Dictated by: Roddy Degroot M.D. on 07/16/2021 at 21:10 Approved by: Roddy Degroot M.D. on 07/16/2021 at 21:12
[2021-07-16 21:01] VITALS: PULSE 89; RESP 22; TEMP 37.2; O2SAT 99
--- NOTE | 2021-07-16 22:31 | ED.LOWEXIN ---
HPI - Extremity Injury (Lower) General Chief Complaint: Extremity Injury, Lower Stated Complaint: Left foot injury today Time Seen by Provider: 07/16/21 22:20 Source: patient Mode of arrival: Wheelchair History of Present Illness HPI Narrative: Patient is a 20-year-old female. Provided some HPI review of systems however arm most came from her roommate to was in the room. Apparently the patient fell and injured her left foot and ankle. Unsure exactly how she fell. She did not report any other injuries from the event. Unsure exactly when the event happened. Related Data Home Medications Medication Instructions Recorded Confirmed melatonin 10 mg capsule 10 mg PO BEDTIME PRN 11/12/18 06/05/21 oxcarbazepine 600 mg 1,200 mg PO DAILY 06/05/21 06/05/21 tablet,extended release 24 hr Previous Rx's Medication Instructions Recorded Ankle Foot Orthosis #1 ea 08/25/19 valacyclovir 1 gram tablet 2,000 mg PO BID PRN #28 tab 01/25/21 fluoxetine 10 mg capsule 50 mg PO DAILY #150 cap 06/05/21 risperidone 0.5 mg tablet See Rx Instructions .ROUTE 06/05/21 .COMPLEX #60 tab trazodone 50 mg tablet See Rx Instructions PO DAILY PRN 06/14/21 #90 tab Allergies Allergy/AdvReac Type Severity Reaction Status Date / Time No Known Drug Allergies Allergy Verified 04/21/21 09:39 Review of Systems Musculoskeletal Comments: Left foot and ankle pain Integumentary/Breasts Skin/Breast: Reports system reviewed and no additional complaints, except as documented Neurologic Neurologic: Reports system reviewed and no additional complaints, except as documented Hematologic/Lymphatic On Anticoagulants: No Patient History Medical History Anxiety and depression Dysuria Fatigue due to depression Insomnia disorder with non-sleep disorder mental comorbidity IT band syndrome Mixed incontinence urge and stress Seizure disorder Selective mutism as adjustment reaction Social History Smoking Status: Never smoker Smoking Status: Never smoker Exam Initial Vital Signs Initial Vital Signs: Vital Signs Temperature 99.0 F 07/16/21 21:01 Pulse Rate 89 07/16/21 21:01 Respiratory Rate 22 07/16/21 21:01 Pulse Oximetry 99 07/16/21 21:01 Cardio Pulses: dorsalis pedis present on the left Skin General: no rashes or lesions noted Neuro Other: Patient reports no sensory deficits to her left foot Extrem Other: Tenderness along the lateral malleolus in the left lateral foot. No Achilles tenderness. No tenderness along was from trying. No tenderness along the medial malleolus. No tenderness along the Achilles tendon. No proximal fibula tenderness. Procedures Orthopedic Splinting/Casting Injury #1: Side: left Lower Extremity Injury Location: ankle Lower Extremity Immobilizer: Ethan wrap Post splinting neuro exam: intact Post splinting vascular exam: intact Placed by: Nursing Course Orders Ordered: ED Orders 07/16/21 20:46 XR ankle LT min 3V Stat XR foot LT min 3V Stat Vital Signs Vital signs: Vital Signs - 8 hr 07/16/21 21:01 Temperature 99.0 F Pulse Rate 89 Respiratory Rate 22 Pulse Oximetry 99 MDM - Extremity Injury (Lower) Imaging Data Extremity x-ray #1: Radiologist's Impression: [address] [address] XRay Report Signed Patient: Mona Sales MR#: [id number] : 2000 Acct:[id number] Age/Sex: 20 / F Date of Service: 07/16/21 Loc: ED Accession Number: [id number] ?? Procedure: XR ankle LT min 3V Ordering Provider: Lobito Akbar D.O. PROCEDURE:? XR ANKLE LT MIN 3V ? INDICATIONS:? fall, foot/ankle pain ? TECHNIQUE:? 3 views of the ankle were acquired.? ? COMPARISON:? [facility], , XR ANKLE RT MIN 3V, 11/14/2020, 15:51. ? FINDINGS:? ? Bones:? No acute fractures or dislocations.? Ankle mortise is normally aligned.? No suspicious bony lesions.? ? Soft tissues:? No tibiotalar joint effusion.? Achilles tendon appears normal.? Moderate soft tissue swelling of the left forefoot and ankle. ? ? IMPRESSION:? Soft tissue swelling of the left ankle and left forefoot without underlying fracture or dislocation. ? If there is persistent clinical concern for occult fracture given adequate mechanism of injury, consider repeat imaging in 10-14 days. ? Dictated by: Roddy Degroot M.D. on 07/16/2021 at 21:07 ? ? Approved by: Roddy Degroot M.D. on 07/16/2021 at 21:09?? Extremity x-ray #2: Radiologist's Impression: [address] [address] XRay Report Signed Patient: Mona Sales MR#: [id number] : 2000 Acct:[id number] Age/Sex: 20 / F Date of Service: 07/16/21 Loc: ED Accession Number: [id number] ?? Procedure: XR foot LT min 3V Ordering Provider: Lobito Akbar D.O. PROCEDURE:? XR FOOT LT MIN 3V ? INDICATIONS:? fall, foot/ankle pain ? TECHNIQUE:? 3 views of the foot were acquired.? ? COMPARISON:? [facility], CR, XR FOOT RT MIN 3V, 11/14/2020, 15:51. ? FINDINGS:? ? Bones:? No definite acute fractures or dislocations.? No suspicious bony lesions.? ? Soft tissues:? No tibiotalar joint effusion.? Achilles tendon appears normal.? Moderate soft tissue swelling of the left foot ? ? IMPRESSION:? Moderate left forefoot soft tissue swelling without definite underlying fracture or dislocation. ? ? If there is persistent clinical concern for occult fracture given adequate mechanism of injury, consider repeat imaging in 10-14 days. ? ? Dictated by: Roddy Degroot M.D. on 07/16/2021 at 21:10 ? ? Approved by: Roddy Degroot M.D. on 07/16/2021 at 21:12?? MDM Narrative Medical decision making narrative: X-ray shows no sign fractures. Patient reports no sensory deficits. No other injuries reported the events. Hold on further workup for now. Ethan bandage placed for comfort. Patient given return precautions. Discharge Plan Departure Patient Disposition: Home Clinical Impression: Left ankle sprain Instructions: DI for Ankle Sprain, How To Perform RICE (Rest, Ice, Compress, Elevate), How to Apply an Elastic Wrap on Ankle Activity Restrictions/Additional Instructions: There were no fractures noted on the x-rays. Mona can walk on her left foot as tolerated. I do recommend ice and also the Ethan bandage for comfort and support. Return to the emergency department for any new or worsening symptoms. Prescriptions: No Action (DME) Ankle Foot Orthosis Qty: 1 0RF Rx Instructions: As directed valacyclovir 1 gram tablet 2,000 mg PO BID PRN (Reason: cold sores) Qty: 28 0RF Rx Instructions: Take 2 tabs twice each day for 1 day at 1st sign of cold sore. Thank you. trazodone 50 mg tablet See Rx Instructions PO DAILY PRN (Reason: sleep) Qty: 90 0RF Rx Instructions: 1-2 tabs PO daily PRN; oxcarbazepine 600 mg tablet extended release 24 hr 1,200 mg PO DAILY 0RF Rx Instructions: must be taken on empty stomach; no food at least 2 hrs before or 1 hr after dose fluoxetine 10 mg capsule 50 mg PO DAILY Qty: 150 3RF risperidone 0.5 mg tablet See Rx Instructions .ROUTE .COMPLEX Qty: 60 3RF Dose Instruction: TAKE ONE TABLET BY MOUTH NIGHTLY AT BEDTIME; START WITH 1/2 TABLET FOR ONE WEEK THEN NIGHTLY THEREAFTER Rx Instructions: TAKE ONE TABLET BY MOUTH NIGHTLY AT BEDTIME; START WITH 1/2 TABLET FOR ONE WEEK THEN NIGHTLY THEREAFTER melatonin 10 mg capsule 10 mg PO BEDTIME PRN0RF Referrals: Cirilo Bryan MD [Primary Care Provider] -
== END 2021-07-16 22:40 | disposition home or self-care (01) ==
PROVIDERS: Emergency Provider Emergency Medicine; PCP Family Medicine
DX: S93.402A Sprain of unspecified ligament of left ankle, initial encounter (principal); W19.XXXA Unspecified fall, initial encounter
CPT/HCPCS: 73610; 73630; 99282; 99283

== ENCOUNTER → 2021-12-29 17:56 | Outpatient (CLI) | payer OTHER, MEDICAID, SELFPAY | PROVIDERS: PCP Family Medicine; Visit Provider Nurse Practitioner Family | DX: J02.9 Acute pharyngitis, unspecified (principal) | CPT/HCPCS: 87070; 87880 ==

== ENCOUNTER → 2022-04-20 18:27 | Outpatient (CLI) | payer OTHER, MEDICAID, SELFPAY | PROVIDERS: PCP Family Medicine; Visit Provider Registered Nurse | DX: R10.9 Unspecified abdominal pain (principal) | CPT/HCPCS: 81002; 87086 ==

== ENCOUNTER → 2022-04-26 16:37 | Outpatient (CLI) | payer OTHER, MEDICAID, SELFPAY ==
--- NOTE | 2022-04-26 16:38 | DI.RAD.S_ITS ---
PROCEDURE: XR RIBS LT MIN 3V W CXR1V INDICATIONS: Left flank pain, status post fall TECHNIQUE: 3 views of the left ribs were acquired, along with a single view chest. COMPARISON: None. FINDINGS: Surgical changes and devices: None. Bones and chest wall: No fractures or dislocations. No suspicious bony lesions. Overlying soft tissues appear unremarkable. Lungs and pleura: No pleural effusions or pneumothorax. Lungs appear clear. Mediastinum: Mediastinal contours appear normal. Heart size is normal. IMPRESSION: Occult Dictated by: Monisha Becker M.D. on 04/27/2022 at 14:45 Approved by: Monisha Becker M.D. on 04/27/2022 at 14:47
== END ==
PROVIDERS: PCP Family Medicine; Referring Provider Family Medicine; Visit Provider Family Medicine
DX: G40.909 Epilepsy, unspecified, not intractable, without status epilepticus (principal); R10.9 Unspecified abdominal pain; R26.89 Other abnormalities of gait and mobility
CPT/HCPCS: 71101

== ENCOUNTER → 2022-05-05 11:52 | Outpatient (CLI) | payer OTHER, MEDICAID, SELFPAY ==
--- NOTE | 2022-05-05 11:53 | DI.CT.S_ITS ---
PROCEDURE: CT CHEST WO CON INDICATIONS: r/o occult fracture TECHNIQUE: Noncontrast 5 mm thick sections acquired from the pulmonary apices to the posterior costophrenic angles. 1 mm lung window, 5 mm thick coronal and sagittal and 7 mm axial MIP reformats were then acquired. For radiation dose reduction, the following was used: automated exposure control, adjustment of mA and/or kV according to patient size. COMPARISON: [facility], CR, XR RIBS LT MIN 3V W CXR1V, 04/26/2022, 16:51. FINDINGS: Image quality: Excellent. Lungs and pleura: No acute air space opacities. No pleural effusions or pneumothorax. Central and peripheral airways are patent and normal in caliber. Mediastinum: Heart size is normal. Trace pericardial effusion. No mediastinal adenopathy by size criteria. Thoracic aorta and central pulmonary arteries are normal in size. Esophagus is normal in caliber. No hiatal hernia. Bones and chest wall: No suspicious bony lesions. No vertebral body compression fractures. No axillary or supraclavicular adenopathy by size criteria. Thyroid gland is unremarkable were visualized. Abdomen: Visualized upper abdominal solid organs and bowel loops appear normal in the absence of contrast. Focal fatty infiltration at the falciform ligament. Punctate nonobstructing right kidney stone is suspected. IMPRESSION: Lungs are clear. No fracture. Trace pericardial fluid. Dictated by: Jimmy Zelaya M.D. on 05/05/2022 at 12:02 Approved by: Jimmy Zelaya M.D. on 05/05/2022 at 12:06
== END ==
PROVIDERS: PCP Family Medicine; Referring Provider Family Medicine; Visit Provider Family Medicine
DX: R10.9 Unspecified abdominal pain (principal)
CPT/HCPCS: 71250

== ENCOUNTER → 2022-05-10 09:12 | Outpatient (CLI) | payer OTHER, MEDICAID, SELFPAY ==
[2022-05-10 11:56] LABS: Appearance Urine UA CLEAR; Bilirubin Urine UA NEGATIVE (NEGATIVE); Color Urine UA YELLOW; Glucose Urine UA TRACE g/dL (Negative); Ketones Urine UA NEGATIVE (NEGATIVE); Leukocyte Esterase Urine UA NEGATIVE (NEGATIVE); Nitrite Urine UA NEGATIVE (Negative); Occult Blood Urine UA NEGATIVE (Negative); Protein Urine UA NEGATIVE (Negative); Urobilinogen Urine UA 0.2 E.U./dL (0.2)
[2022-05-10 12:01] LABS: pH Urine UA 6.5 (4.5-8.0)
[2022-05-10 12:04] LABS: Bacteria Urine None Seen; Culture Indicated Urine Cult Not Indicated; RBC Urine None Seen (0-5/HPF); Urine Comments Microscopic Normal; WBC Urine None Seen (0-5/HPF)
== END ==
PROVIDERS: PCP Family Medicine; Referring Provider Family Medicine; Visit Provider Family Medicine
DX: R10.9 Unspecified abdominal pain (principal)
CPT/HCPCS: 81001

== ENCOUNTER → 2022-05-16 12:13 | Outpatient (CLI) | payer OTHER, MEDICAID, SELFPAY ==
--- NOTE | 2022-05-16 12:14 | DI.CT.S_ITS ---
PROCEDURE: CT KIDNEY URETER BLADDER (KUB) INDICATIONS: Persistent and progressive left flank pain TECHNIQUE: Axial sections were acquired from the lung bases to the pubic symphysis. Coronal and sagittal reformats were performed. For radiation dose reduction, the following was used: automated exposure control, adjustment of mA and/or kV according to patient size. COMPARISON: None. FINDINGS: Lower thorax: The lung bases are clear. Heart size normal. No hiatal hernia. Liver: Normal in size and attenuation. No contour deformity present. Biliary system: No calcified cholelithiasis or pericholecystic inflammation. No intra or extrahepatic bile duct dilatation. Pancreas: Unremarkable without mass or inflammation evident. Spleen: Normal in size and density. Adrenals: Normal morphology and density. Reproductive system: Unremarkable as visualized. Urinary system: Normal renal size and attenuation. No renal calculi, hydronephrosis, or solid mass present. Urinary bladder unremarkable. Gastrointestinal system: The bowel is unremarkable without evidence of bowel obstruction or inflammation. The stomach appears unremarkable. Appendix: No findings to suggest acute appendicitis. Peritoneal spaces: No mesenteric or retroperitoneal adenopathy. No free air. No free fluid. Vasculature: The IVC, aorta and iliac vasculature are unremarkable. Abdominal wall: Abdominal wall intact without evidence of ventral or inguinal hernias. Musculoskeletal: Normal bone mineralization. No acute fractures. IMPRESSION: 1. No acute noncontrast CT findings in the abdomen and pelvis. No evidence nephrolithiasis, obstructive uropathy, or diverticulosis. Approved by: Robert Henderson M.D. on 05/16/2022 at 13:01
== END ==
PROVIDERS: PCP Family Medicine; Referring Provider Family Medicine; Visit Provider Family Medicine
DX: R10.9 Unspecified abdominal pain (principal); Z87.442 Personal history of urinary calculi
CPT/HCPCS: 74176

== ENCOUNTER → 2022-06-13 18:10 | Outpatient (CLI) | payer OTHER, MEDICAID, SELFPAY ==
[2022-06-14 12:56] LABS: Influenza A - CEPHEID Flu A POSITIVE (NEGATIVE); Influenza B - CEPHEID Flu B NEGATIVE (NEGATIVE); Respiratory Syncytial Virus Negative (Negative)
[2022-06-14 12:57] LABS: COVID-19 CEPHEID 4-PLEX PCR Negative (Negative)
== END ==
PROVIDERS: Family Provider Family Medicine; PCP Family Medicine; Visit Provider Physician Assistant
DX: R05.1 Acute cough (principal)
CPT/HCPCS: 0241U

== ENCOUNTER 2022-09-27 08:30 | Outpatient (RCR) | payer OTHER, MEDICAID, SELFPAY ==
--- NOTE | 2022-07-25 15:34 | OT.OP.EVAL ---
Visit Care Team Role Provider Type Cirilo Bryan MD Attending Provider Physician Family Provider Primary Care Provider Referring Provider Specialty: Family Practice Address: [address] [place] [address], [place], [address] Email: [email or web address] Occupational Therapy Initial Evaluation OT Outpatient Adult Evaluation Start: 07/25/22 14:57 Freq: Status: Active Protocol: Document 07/25/22 14:57 [facility] (Rec: 07/25/22 15:33 [facility] [id number]) General Information - Adult Plan of Care Dates 07/25/22 - 10/03/22 Insurance Information 1 eval; 24 OT units or 8 visits at 3 units per visit PCY Visit Start Time 14:30 Visit Stop Time 15:00 Total Visit Minutes 30 Treatment Setting Outpatient Care Note Type Initial Evaluation Identification Confirmed Yes Goals Short Term Goals 1. Mona will present with improved functional abilities of the left hand: 1a. Mona will be sucessfully able to manage the opening and closing x 2 doors located within the outpatient clinic with the left hand with no support from therapist , relative to cueing to support initiation, as observed on 2 separate treatment dates, given up to 3 opportunities. 1b. Mona will be able to verbally identify 2 or 3 different pieces of adaptive equipment and/or compensatory/ modification techniques that will support her functional independence in the home environment without verbal support from therapist (e.g. adaptive options to support slicing of foods versus use of standard knife w/ self- feeding). Seasonal Driver Goals 1. Mona will be modified independent w/ execution of home exercise program utilizing provided written and visual instuctions from therapist. Assessment/Plan Treatment Assessment Mona is a 21 year-old right hand dominant female referred to outpatient OT by her PCP Dr Miguel Bryan; patient is being seen here at [facility] for outpatient physical therapy secondary to left sided rib pain, as well as recent increased number of falls. Medical history is significant for seizures; brain surgery; left sided hemiparesis. Mona reports residing with her father locally in [place], [place]. She is transported to [place] for gymnastics 1 x per week where she works on carrying light weights, hanging onto parallel bar with both hands above head, and ambulating on balance beam. Mona reports enjoying gymnastics, listening to music and spending time w/ her friend. Patient Goals: Increase success w/ opening doors. Evaluation Findings: ADLS: Mona resides w/ her father. She reportedly is able to dress self w/ modification of wearing sports bra; she reports ability to untie shoes and manage zippers depending on clothing items. She receives assistance from her father w/ washing her hair ( given hypersensitivities/ aversion to getting soap in her eyes) and tying her shoe laces, as well as brushing her hair when it is long. Mona is able to brush/floss teeth and prepare microwaveable meals/feed self. Mona shares household tasks with her father, such as washing dishes , doing laundry, folding laundry. She reports making her own bed. Mona has personal cell phone and is able to use it to navigate the internet and listen to her favorite music. Mona reports difficulties with opening/ closing doors. QuickDASH UE Outcome Measure Score = 54.5. Functional AROM of L UE; able to place L hand on top of head and back of head while seated . Active L sh flexion 0-125 degrees. Active L sh abduction 0-105 degrees. L sh ER, elbow flexion/extension, forearm supination/pronation, wrist flexion/extension/RD/UD within functional limits. Able to oppose thumb to 4th digit pad w/ increased effort. Effort increases w/ pad opposition as thumb tries to motor plan to ulnar side of hand. She completed the Jebsen Trudy Hand Function Stacking Checkers subtest in 6.5 sec w/ R hand and in 22.5 sec w/ L hand; she completed the Jebsen Trudy Hand Function Lifting Small Objects subtest in 12.5 sec w/ R hand and in 59.5 sec w/ L hand; and completed the Jebsen Trudy Hand Function Simulated Page Turning subtest in 7.8 sec w/ R hand and in 18.4 sec w/ L hand. Mona would likely benefit from skilled outpatient to address attention to L UE, bimanual coordination, functional abilities of the L hand, UE AROM, establish an appropriate HEP, as well as explore modifications/ compensatory strategies to support successful participation in meaningful activities in a variety of environments w/ active incorporation of the L UE/hand . Length of treatment (weeks) 10 Plan of Care Start Date 07/25/22 Plan of Care End Date 10/03/22 Treatment Frequency Once a Week Therapeutic Contents Active Range of Motion, Adaptive Equipment Education, Client Education,Cognitive Skills Development,Functional Activities,Home Exercise Program,Joint Protection, Manual Therapy,Education, Neurodevelopment Treatment, Neuromuscular Re-Education, Self-Care,Stretching/ Flexibility Activities, Therapeutic Activities, Therapeutic Exercises,Sensory Re-education
--- NOTE | 2022-08-02 15:47 | OT.OP.TRT ---
Visit Care Team Role Provider Type Cirilo Bryan MD Attending Provider Physician Family Provider Primary Care Provider Referring Provider Specialty: Family Practice Address: [address] [place] [address], [id number] Email: [email or web address] Occupational Therapy Treatment Note OT Outpatient Treatment Note - Adult Start: 07/25/22 14:57 Freq: Status: Active Protocol: Document 08/02/22 15:38 AMS (Rec: 08/02/22 15:47 AMS [id number]) OT Outpatient Adult Treatment Note Session Time Visit Start Time 13:30 Visit Stop Time 14:15 Total Visit Minutes 45 Visit Information Plan of Care Dates 07/25/22 - 10/03/22 Setting Treatment Setting Outpatient Care Visit Type Note Type Treatment Note General Information General Information Mona is a 21 year-old right hand dominant female referred to outpatient OT by PCP Dr. Bryan; pt is being seen here at for outpatient PT secondary to left sided rib pain, as well as recent increased number of falls. Medical history is significant for seizures; brain surgery; left sided hemiparesis. Mona reports residing with her father locally in [place], [place]. She is transported to [place] for gymnastics 1 x per week where she works on carrying light weights, hanging onto parallel bar with both hands above head, and ambulating on balance beam. Mona reports enjoying gymnastics, listening to music and spending time w/ her friend. 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 - Subjective Identification Type Name Identification Reconciled With Medical Record Observations Mona reported that she cancelled next week's appointment d/t 'visiting her Aunt'. Patient/Caregiver Compliance with Home Good Exercise Program Comment w/ support - Objective Objective Measurements Please refer to below for progress towards meeting established OT goals. Short Term Goals 1. Mona will present with improved functional abilities of the left hand: 1a. Mona will be sucessfully able to manage the opening and closing x 2 doors located within the outpatient clinic with the left hand with no support from therapist , relative to cueing to support initiation, as observed on 2 separate treatment dates, given up to 3 opportunities. 1b. Mona will be able to verbally identify 2 or 3 different pieces of adaptive equipment and/or compensatory/ modification techniques that will support her functional independence in the home environment without verbal support from therapist (e.g. adaptive options to support slicing of foods versus use of standard knife w/ self- feeding). Instrument Assembler Goals 1. Mona will be modified independent w/ execution of home exercise program utilizing provided written and visual instuctions from therapist. - Treatment 7 Descriptor Eye-hand coordination. Seated 1-handed catch (of rolling ball) & throw. 2 x 10. Seated 2-handed catch & throw. Chest pass 1 x 10. Overhead pass 1 x 10. 6 Descriptor Fine motor planning. 4 Descriptor Motor planning/Neuro Re- education. 1 Descriptor UE motor planning Exercises 2 Descriptor L UE Strengthening. Standing push-ups at horizontal parallel bar. 2 x 10. Peanutball walk-outs. 1 x 5. 4.4# weighted ball pass w/ L. 1 x 10. 5.5# weighted ball pass w/ L. 1 x 10. 1 Descriptor UEB x 5 minutes. Forward. Seated. - Assessment Assessment of Improvement Focus of treatment session on unimanual and bimanual coordination of the upper extremities with object manipulation; introduced peanutball walk-outs at mat level w/ great effort and positive response to exercise from Mona. Recommend increasing to 10 vs 15 repetitions at time of next treatment session. Recommend exploring additional options to support coordination of the 2 hands together. Mona would likely benefit from skilled outpatient to address attention to L UE, bimanual coordination, functional abilities of the L hand, UE AROM, establish an appropriate HEP, as well as explore modifications/ compensatory strategies to support successful participation in meaningful activities in a variety of environments w/ active incorporation of the L UE/hand . - Plan Therapy Recommendations Continue with Current Program, Advance per Rehabilitation Protocol
--- NOTE | 2022-08-16 14:27 | OT.OP.TRT ---
Visit Care Team Role Provider Type Cirilo Bryan MD Attending Provider Physician Family Provider Primary Care Provider Referring Provider Specialty: Family Practice Address: [address] [place] [address], [id number] Email: [email or web address] Occupational Therapy Treatment Note OT Outpatient Treatment Note - Adult Start: 07/25/22 14:57 Freq: Status: Active Protocol: Document 08/16/22 14:19 AMS (Rec: 08/16/22 14:26 AMS [id number]) OT Outpatient Adult Treatment Note Session Time Visit Start Time 12:30 Visit Stop Time 13:15 Total Visit Minutes 45 Visit Information Visit Number 2/8 visits x 3 units per visit PCY Plan of Care Dates 07/25/22 - 10/03/22 Insurance Information [employer]; 24 OT units Setting Treatment Setting Outpatient Care Visit Type Note Type Treatment Note General Information General Information Mona is a 21 year-old right hand dominant female referred to outpatient OT by PCP Dr. Bryan; pt is being seen here at for outpatient PT secondary to left sided rib pain, as well as recent increased number of falls. Medical history is significant for seizures; brain surgery; left sided hemiparesis. Mona reports residing with her father locally in [place], [place]. She is transported to [place] for gymnastics 1 x per week where she works on carrying light weights, hanging onto parallel bar with both hands above head, and ambulating on balance beam. Mona reports enjoying gymnastics, listening to music and spending time w/ her friend. 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 - Subjective Identification Type Name Identification Reconciled With Medical Record Observations No new concerns were reported by Mona. Mona reported that she has tried ozzie options previously with L arm (wii) with reportedly not great success; primary tech device is personal cellphone which is a small interface and impacts Mona's feelings of success w/ using ozzie/apps w / her L hand. Patient/Caregiver Compliance with Home Good Exercise Program Comment w/ support - Objective Objective Measurements Please refer to below for progress towards meeting established OT goals. Short Term Goals 1. Mona will present with improved functional abilities of the left hand: 1a. Mona will be sucessfully able to manage the opening and closing x 2 doors located within the outpatient clinic with the left hand with no support from therapist , relative to cueing to support initiation, as observed on 2 separate treatment dates, given up to 3 opportunities. 1b. Mona will be able to verbally identify 2 or 3 different pieces of adaptive equipment and/or compensatory/ modification techniques that will support her functional independence in the home environment without verbal support from therapist (e.g. adaptive options to support slicing of foods versus use of standard knife w/ self- feeding). Digital Media Representative Goals 1. Mona will be modified independent w/ execution of home exercise program utilizing provided written and visual instuctions from therapist. - Treatment 7 Descriptor Eye-hand coordination. L UE [place] bag toss seated. Cone targets. L UE Ball target overhand throw seated. Exercises 2 Descriptor L UE Strengthening. Peanutball walk-outs. 1 x 8. 4.4# weighted ball pass w/ L. 1 x 10. 5.5# weighted ball pass w/ L. 1 x 10. 6.6# weighted ball pass w/ L. 1 x 10. 1 Descriptor UEB x 8 minutes. Forward. Seated. - Assessment Assessment of Improvement Upgraded peanutball walkouts to 8 versus 5; recommend increasing number of repetitions w/ feedback from Mona. Upgraded UBE and weighted ball throw. Introduced focused motor coordination of L UE w/ suspended ball seated, palacios bag and ball toss seated. Recommend incorporating bimanual object manipulation task as well. Overall, great session. Mona would likely benefit from skilled outpatient to address attention to L UE, bimanual coordination, functional abilities of the L hand, UE AROM, establish an appropriate HEP, as well as explore modifications/ compensatory strategies to support successful participation in meaningful activities in a variety of environments w/ active incorporation of the L UE/hand . - Plan Therapy Recommendations Continue with Current Program, Advance per Rehabilitation Protocol
--- NOTE | 2022-08-23 15:50 | OT.OP.TRT ---
Visit Care Team Role Provider Type Cirilo Bryan MD Attending Provider Physician Family Provider Primary Care Provider Referring Provider Specialty: Family Practice Address: [address] [place] [address], [id number] Email: [email or web address] Occupational Therapy Treatment Note OT Outpatient Treatment Note - Adult Start: 07/25/22 14:57 Freq: Status: Active Protocol: Document 08/23/22 15:46 [facility] (Rec: 08/23/22 15:50 [facility] [id number]) OT Outpatient Adult Treatment Note Session Time Visit Start Time 13:30 Visit Stop Time 14:15 Total Visit Minutes 45 Visit Information Visit Number 3/8 visits x 3 units per visit PCY Plan of Care Dates 07/25/22 - 10/03/22 Insurance Information [employer]; 24 OT units Setting Treatment Setting Outpatient Care Visit Type Note Type Treatment Note General Information General Information Mona is a 21 year-old right hand dominant female referred to outpatient OT by PCP Dr. Bryan; pt is being seen here at for outpatient PT secondary to left sided rib pain, as well as recent increased number of falls. Medical history is significant for seizures; brain surgery; left sided hemiparesis. Mona reports residing with her father locally in [place], [place]. She is transported to [place] for gymnastics 1 x per week where she works on carrying light weights, hanging onto parallel bar with both hands above head, and ambulating on balance beam. Mona reports enjoying gymnastics, listening to music and spending time w/ her friend. 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 - Subjective Identification Type Name Identification Reconciled With Medical Record Observations No new concerns were reported by Ginger. Dunn brought in personal ipad. Patient/Caregiver Compliance with Home Good Exercise Program Comment w/ support - Objective Objective Measurements Please refer to below for progress towards meeting established OT goals. Short Term Goals 1. Mona will present with improved functional abilities of the left hand: 1a. Mona will be sucessfully able to manage the opening and closing x 2 doors located within the outpatient clinic with the left hand with no support from therapist , relative to cueing to support initiation, as observed on 2 separate treatment dates, given up to 3 opportunities. 1b. Mona will be able to verbally identify 2 or 3 different pieces of adaptive equipment and/or compensatory/ modification techniques that will support her functional independence in the home environment without verbal support from therapist (e.g. adaptive options to support slicing of foods versus use of standard knife w/ self- feeding). Destaticizer Feeder Goals 1. Mona will be modified independent w/ execution of home exercise program utilizing provided written and visual instuctions from therapist. - Treatment 7 Descriptor Eye-hand coordination. L UE Ball target overhand throw seated. Bilateral bat grasp/batting. Exercises 3 Descriptor Orientation to midline. Weight shift. Seated on peanutball. 2 Descriptor L UE Strengthening. Peanutball walk-outs. 1 x 10. 5.5# weighted ball pass w/ L. 1 x 10. 6.6# weighted ball pass w/ L. 1 x 10. 1 Descriptor UEB x 10 minutes. Forward. Seated. - Assessment Assessment of Improvement Able to increase number of repetitions from 8 to 10 w/ peanutball walkouts; recommend increasing number of repetitions w/ feedback from Mona. Mona indicated that she does not have the space for a peanutball in a room when therapist inquired. Yet, she was able to participate/ engage in [employer] sd game x 2 levels w/ intermittent use of thumb/2nd digit of the L hand! Mona was agreeable to playing this sd game sometimes w/ the left hand! Overall, great session. Mona would likely benefit from skilled outpatient to address attention to L UE, bimanual coordination, functional abilities of the L hand, UE AROM, establish an appropriate HEP, as well as explore modifications/ compensatory strategies to support successful participation in meaningful activities in a variety of environments w/ active incorporation of the L UE/hand . - Plan Therapy Recommendations Continue with Current Program, Advance per Rehabilitation Protocol
--- NOTE | 2022-08-30 13:59 | OT.OP.TRT ---
Visit Care Team Role Provider Type Cirilo Bryan MD Attending Provider Physician Family Provider Primary Care Provider Referring Provider Specialty: Family Practice Address: [address] [place] [address], [id number] Email: [email or web address] Occupational Therapy Treatment Note OT Outpatient Treatment Note - Adult Start: 07/25/22 14:57 Freq: Status: Active Protocol: Document 08/30/22 13:50 AMS (Rec: 08/30/22 13:59 AMS [id number]) OT Outpatient Adult Treatment Note Session Time Visit Start Time 12:30 Visit Stop Time 13:15 Total Visit Minutes 45 Visit Information Visit Number 4/8 visits x 3 units per visit [facility] Plan of Care Dates 07/25/22 - 10/03/22 Insurance Information [employer]; 24 OT units Setting Treatment Setting Outpatient Care Visit Type Note Type Treatment Note General Information General Information Mona is a 21 year-old right hand dominant female referred to outpatient OT by PCP Dr. Bryan; pt is being seen here at for outpatient PT secondary to left sided rib pain, as well as recent increased number of falls. Medical history is significant for seizures; brain surgery; left sided hemiparesis. Mona reports residing with her father locally in [place], [place]. She is transported to [place] for gymnastics 1 x per week where she works on carrying light weights, hanging onto parallel bar with both hands above head, and ambulating on balance beam. Mona reports enjoying gymnastics, listening to music and spending time w/ her friend. 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 - Subjective Identification Type Name Identification Reconciled With Medical Record Observations No new concerns were reported by Mona. Mona indicated that she has been playing the '[employer]' sd game w/ her left hand despite having some difficulties. She also reports continued difficulties with opening turn knob doors. Patient/Caregiver Compliance with Home Good Exercise Program Comment w/ support - Objective Objective Measurements Please refer to below for progress towards meeting established OT goals. Short Term Goals 1. Mona will present with improved functional abilities of the left hand: 1a. Mona will be sucessfully able to manage the opening and closing x 2 doors located within the outpatient clinic with the left hand with no support from therapist , relative to cueing to support initiation, as observed on 2 separate treatment dates, given up to 3 opportunities. 1b. Mona will be able to verbally identify 2 or 3 different pieces of adaptive equipment and/or compensatory/ modification techniques that will support her functional independence in the home environment without verbal support from therapist (e.g. adaptive options to support slicing of foods versus use of standard knife w/ self- feeding). Custodial Goals 1. Mona will be modified independent w/ execution of home exercise program utilizing provided written and visual instuctions from therapist. - Treatment 7 Descriptor Eye-hand coordination. L UE Ball target overhand throw seated. Exercises 3 Descriptor Orientation to midline. Weight bearing. Proprioceptive input . Sea stars. Yellow peanutball. x 10 repetitions prone. Peanutball walk-outs. x 11 repetitions. 2 Descriptor L UE Strengthening. Peanutball walk-outs. 1 x 11. 1 Descriptor UEB x 10 minutes. Forward. Seated. - Assessment Assessment of Improvement Able to increase number of repetitions with yellow peanutball walk-outs, as well as introduce modified sea stars while prone on peanutball (focus on alt UE weight bearing). This suggests improving strength, motor planning, awareness of UE in space, confidence in L UE and tolerance for weight bearing. Mona reports playing frozen sd at home with the left hand despite difficulties! Recommended practicing opening of screw top containers or jars with the left hand to support functional motor planning of twist knob doors. Mona verbalized understanding and practiced in session w/ focus on R hand not doing all the work/compensating. Overall, great session. Mona would likely benefit from skilled outpatient to address attention to L UE, bimanual coordination, functional abilities of the L hand, UE AROM, establish an appropriate HEP, as well as explore modifications/ compensatory strategies to support successful participation in meaningful activities in a variety of environments w/ active incorporation of the L UE/hand . - Plan Therapy Recommendations Continue with Current Program, Advance per Rehabilitation Protocol
--- NOTE | 2022-09-06 14:20 | OT.OP.TRT ---
Visit Care Team Role Provider Type Cirilo Bryan MD Attending Provider Physician Family Provider Primary Care Provider Referring Provider Specialty: Family Practice Address: [address] [place] [address], [id number] Email: [email or web address] Occupational Therapy Treatment Note OT Outpatient Treatment Note - Adult Start: 07/25/22 14:57 Freq: Status: Active Protocol: Document 09/06/22 14:17 AMS (Rec: 09/06/22 14:20 AMS [id number]) OT Outpatient Adult Treatment Note Session Time Visit Start Time 12:30 Visit Stop Time 13:15 Total Visit Minutes 45 Visit Information Visit Number 5/8 visits x 3 units per visit [facility] Plan of Care Dates 07/25/22 - 10/03/22 Insurance Information [employer]; 24 OT units Setting Treatment Setting Outpatient Care Visit Type Note Type Treatment Note General Information General Information Mona is a 21 year-old right hand dominant female referred to outpatient OT by PCP Dr. Bryan; pt is being seen here at for outpatient PT secondary to left sided rib pain, as well as recent increased number of falls. Medical history is significant for seizures; brain surgery; left sided hemiparesis. Mona reports residing with her father locally in [place], [place]. She is transported to [place] for gymnastics 1 x per week where she works on carrying light weights, hanging onto parallel bar with both hands above head, and ambulating on balance beam. Mona reports enjoying gymnastics, listening to music and spending time w/ her friend. 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 - Subjective Identification Type Name Identification Reconciled With Medical Record Observations No new concerns were reported by Mona. Patient/Caregiver Compliance with Home Good Exercise Program Comment w/ support - Objective Objective Measurements Please refer to below for progress towards meeting established OT goals. Short Term Goals 1. Mona will present with improved functional abilities of the left hand: 1a. Mona will be sucessfully able to manage the opening and closing x 2 doors located within the outpatient clinic with the left hand with no support from therapist , relative to cueing to support initiation, as observed on 2 separate treatment dates, given up to 3 opportunities. 1b. Mona will be able to verbally identify 2 or 3 different pieces of adaptive equipment and/or compensatory/ modification techniques that will support her functional independence in the home environment without verbal support from therapist (e.g. adaptive options to support slicing of foods versus use of standard knife w/ self- feeding). Laboratory Assistant Goals 1. Mona will be modified independent w/ execution of home exercise program utilizing provided written and visual instuctions from therapist. - Treatment 7 Descriptor Eye-hand coordination. L UE Ball target overhand throw seated. Exercises 3 Descriptor Orientation to midline. Weight bearing. Proprioceptive input . Peanutball walk-outs. x 12 repetitions. N/A Sea stars. Yellow peanutball. x 10 repetitions prone. 2 Descriptor L UE Strengthening. Peanutball walk-outs. 1 x 12. Modified peanutball push-ups. 1 x 5. 1 Descriptor UEB x 10 minutes. Forward. Seated. - Assessment Assessment of Improvement Able to increase number of repetitions with yellow peanutball walk-outs, as well as introduce modified peanutball push-ups. This suggests improving strength, motor planning, awareness of UE in space, confidence in L UE and tolerance for weight bearing. Trialed completion of large 24-piece puzzle; able to complete with stabilization of adjoining/nearby puzzle pieces by therapist w/ utilization of modification technique to rotate pieces. Recommend continuing to find alt to practice 'turning motion' based on Mona's goal . Overall, great session. Mona would likely benefit from skilled outpatient to address attention to L UE, bimanual coordination, functional abilities of the L hand, UE AROM, establish an appropriate HEP, as well as explore modifications/ compensatory strategies to support successful participation in meaningful activities in a variety of environments w/ active incorporation of the L UE/hand . - Plan Therapy Recommendations Continue with Current Program, Advance per Rehabilitation Protocol
--- NOTE | 2022-09-13 14:36 | OT.OP.TRT ---
Visit Care Team Role Provider Type Cirilo Bryan MD Attending Provider Physician Family Provider Primary Care Provider Referring Provider Specialty: Family Practice Address: [address] [place] [address], [id number] Email: [email or web address] Occupational Therapy Treatment Note OT Outpatient Treatment Note - Adult Start: 07/25/22 14:57 Freq: Status: Active Protocol: Document 09/13/22 14:25 AMS (Rec: 09/13/22 14:36 AMS [id number]) OT Outpatient Adult Treatment Note Session Time Visit Start Time 12:30 Visit Stop Time 13:15 Total Visit Minutes 45 Visit Information Visit Number 6/8 visits x 3 units per visit [facility] Plan of Care Dates 07/25/22 - 10/03/22 Insurance Information [employer]; 24 OT units Setting Treatment Setting Outpatient Care Visit Type Note Type Treatment Note General Information General Information Mona is a 21 year-old right hand dominant female referred to outpatient OT by PCP Dr. Bryan; pt is being seen here at for outpatient PT secondary to left sided rib pain, as well as recent increased number of falls. Medical history is significant for seizures; brain surgery; left sided hemiparesis. Mona reports residing with her father locally in [place], [place]. She is transported to [place] for gymnastics 1 x per week where she works on carrying light weights, hanging onto parallel bar with both hands above head, and ambulating on balance beam. Mona reports enjoying gymnastics, listening to music and spending time w/ her friend. 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 - Subjective Identification Type Name Identification Reconciled With Medical Record Observations No new concerns were reported by Mona. Patient/Caregiver Compliance with Home Good Exercise Program Comment w/ support - Objective Objective Measurements Please refer to below for progress towards meeting established OT goals. Short Term Goals 1. Mona will present with improved functional abilities of the left hand: 1a. Mona will be sucessfully able to manage the opening and closing x 2 doors located within the outpatient clinic with the left hand with no support from therapist , relative to cueing to support initiation, as observed on 2 separate treatment dates, given up to 3 opportunities. 1b. Mona will be able to verbally identify 2 or 3 different pieces of adaptive equipment and/or compensatory/ modification techniques that will support her functional independence in the home environment without verbal support from therapist (e.g. adaptive options to support slicing of foods versus use of standard knife w/ self- feeding). Track Hoe Operator Goals 1. Mona will be modified independent w/ execution of home exercise program utilizing provided written and visual instuctions from therapist. - Treatment 7 Descriptor Eye-hand coordination. L UE Ball target overhand throw seated. Exercises 7 Descriptor DB twist. Positioning of hand on top of DB. 4# DB. 1 x 10. Both directions. 4 Descriptor Red flex bar. 'U'. 1 x 10. Reverse. 1 x 10. Twist. 1 x 10. 3 Descriptor Orientation to midline. Weight bearing. Proprioceptive input . Peanutball walk-outs. x 12 repetitions. N/A Sea stars. Yellow peanutball. x 10 repetitions prone. 2 Descriptor L UE Strengthening. Modified yoga poses. Quadriped --> walk-out. 1 x 12 . 'Rockets'. Short kneeling --> UE WB. 1 x 10. Quadriped w/ alt arm lift. 1 x 10. Attempt at table. 1 x 5. 1 Descriptor UEB x 10 minutes. Forward. Seated. - Assessment Assessment of Improvement Introduced modified yoga poses given identified space constraints by Mona in the home. (+) response and great effort. Will need to obtain visual and written instructions to support carry- over of these exercises. Overall, great session. Mona would likely benefit from skilled outpatient to address attention to L UE, bimanual coordination, functional abilities of the L hand, UE AROM, establish an appropriate HEP, as well as explore modifications/ compensatory strategies to support successful participation in meaningful activities in a variety of environments w/ active incorporation of the L UE/hand . Home Exercise Program *Modified yoga poses. 09/13/22 = Will need to obtain visual/ written instructions to support carry-over. Quadriped --> walk-out. 1 x 12 . 'Rockets'. Short kneeling --> UE WB. 1 x 10. Quadriped w/ alt arm lift. 1 x 10. Attempt at table. 1 x 5. - Plan Therapy Recommendations Continue with Current Program, Advance per Rehabilitation Protocol
--- NOTE | 2022-09-18 15:46 | OT.OP.TRT ---
Visit Care Team Role Provider Type Cirilo Bryan MD Attending Provider Physician Family Provider Primary Care Provider Referring Provider Specialty: Family Practice Address: [address] [place] [address], [address] Email: [email or web address] Occupational Therapy Treatment Note OT Outpatient Treatment Note - Adult Start: 07/25/22 14:57 Freq: Status: Active Protocol: Document 09/18/22 15:40 AMS (Rec: 09/18/22 15:46 AMS [id number]) OT Outpatient Adult Treatment Note Session Time Visit Start Time 12:40 Visit Stop Time 13:15 Total Visit Minutes 35 Visit Information Visit Number 7/8 visits x 3 units per visit [facility] Plan of Care Dates 07/25/22 - 10/03/22 Insurance Information [employer]; 24 OT units Setting Treatment Setting Outpatient Care Visit Type Note Type Treatment Note General Information General Information Mona is a 21 year-old right hand dominant female referred to outpatient OT by PCP Dr. Bryan; pt is being seen here at for outpatient PT secondary to left sided rib pain, as well as recent increased number of falls. Medical history is significant for seizures; brain surgery; left sided hemiparesis. Mona reports residing with her father locally in [place], [place]. She is transported to [place] for gymnastics 1 x per week where she works on carrying light weights, hanging onto parallel bar with both hands above head, and ambulating on balance beam. Mona reports enjoying gymnastics, listening to music and spending time w/ her friend. 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 - Subjective Identification Type Name Identification Reconciled With Medical Record Observations No new concerns were reported by Mona. My grandma and grandpa are taking me to see my aunt per Mona. All I have left is cleaning my room per Mona; I am still having a hard time turning door knobs. Patient/Caregiver Compliance with Home Good Exercise Program Comment w/ support - Objective Objective Measurements Please refer to below for progress towards meeting established OT goals. Short Term Goals 1. Mona will present with improved functional abilities of the left hand: 1a. Mona will be sucessfully able to manage the opening and closing x 2 doors located within the outpatient clinic with the left hand with no support from therapist , relative to cueing to support initiation, as observed on 2 separate treatment dates, given up to 3 opportunities. 1b. Mona will be able to verbally identify 2 or 3 different pieces of adaptive equipment and/or compensatory/ modification techniques that will support her functional independence in the home environment without verbal support from therapist (e.g. adaptive options to support slicing of foods versus use of standard knife w/ self- feeding). Longterm Goals 1. Mona will be modified independent w/ execution of home exercise program utilizing provided written and visual instuctions from therapist. - Treatment 7 Descriptor Eye-hand coordination. L UE Ball target overhand throw seated. 1 Descriptor Motor planning. Wrist circles. Exercises 7 Descriptor DB twist. Positioning of hand on top of DB. 4# DB. 1 x 10. Both directions. 4 Descriptor Red flex bar. 'U'. 1 x 10. Reverse. 1 x 10. Twist. 1 x 10. 2 Descriptor L UE Strengthening. Modified yoga poses. Quadriped --> walk-out. 1 x 12 . Table Inch Worms (modified). Modified ball (WB thru UEs and lifting feet off of floor). 2 x 12. Versus Table. Modified downward dog ( repetitions versus hold). 1 x 12. 1 Descriptor UEB x 10 minutes. Forward. Seated. - Assessment Assessment of Improvement Modified HEP based on feedback from Mona; see below. Will need to obtain visual and written instructions to support carry-over of these exercises. Poor coordination w / L wrist circles both directions. Cont difficulties reported w/ turning door knobs in the home. Overall, great session. Requesting that outpatient clinic insurance claims adjuster attempts to obtain new auth for cont outpatient OT for this pt; therapist to follow-up as appropriate. Mona would likely benefit from skilled outpatient to address attention to L UE, bimanual coordination, functional abilities of the L hand, UE AROM, establish an appropriate HEP, as well as explore modifications/ compensatory strategies to support successful participation in meaningful activities in a variety of environments w/ active incorporation of the L UE/hand . Home Exercise Program *Modified yoga poses. 09/18/22 = Identified preferences. Modified table/quad walk-outs x 12 repetitions. Modified ' ball' exercise. 1 x 12. Wrist circles focus L. - Plan Additional Therapy Recommendations Requesting new insurance auth
--- NOTE | 2022-09-27 09:34 | OT.OP.DC ---
Visit Care Team Role Provider Type Cirilo Bryan MD Attending Provider Physician Family Provider Primary Care Provider Referring Provider Address: [address] [place] [address], [place], [address] Email: [email or web address] Outpatient OT Outpatient Adult Evaluation Start: 07/25/22 14:57 Freq: Status: Active Protocol: Document 07/25/22 14:57 AMS (Rec: 07/25/22 15:33 AMS [id number]) General Information - Adult Visit Information Plan of Care Dates 07/25/22 - 10/03/22 Insurance Information 1 eval; 24 OT units or 8 visits at 3 units per visit PCY Session Time Visit Start Time 14:30 Visit Stop Time 15:00 Total Visit Minutes 30 Setting Treatment Setting Outpatient Care Visit Type Note Type Initial Evaluation Identification Identification Confirmed Yes Goals Short Term Goals Short Term Goals 1. Mona will present with improved functional abilities of the left hand: 1a. Mona will be sucessfully able to manage the opening and closing x 2 doors located within the outpatient clinic with the left hand with no support from therapist , relative to cueing to support initiation, as observed on 2 separate treatment dates, given up to 3 opportunities. 1b. Mona will be able to verbally identify 2 or 3 different pieces of adaptive equipment and/or compensatory/ modification techniques that will support her functional independence in the home environment without verbal support from therapist (e.g. adaptive options to support slicing of foods versus use of standard knife w/ self- feeding). Fpc Goals Curriculum Coordinator Goals 1. Mona will be modified independent w/ execution of home exercise program utilizing provided written and visual instuctions from therapist. Assessment/Plan Assessment Treatment Assessment Mona is a 21 year-old right hand dominant female referred to outpatient OT by her PCP Dr Miguel Bryan; patient is being seen here at [facility] for outpatient physical therapy secondary to left sided rib pain, as well as recent increased number of falls. Medical history is significant for seizures; brain surgery; left sided hemiparesis. Mona reports residing with her father locally in [place], [place]. She is transported to [place] for gymnastics 1 x per week where she works on carrying light weights, hanging onto parallel bar with both hands above head, and ambulating on balance beam. Mona reports enjoying gymnastics, listening to music and spending time w/ her friend. Patient Goals: Increase success w/ opening doors. Evaluation Findings: ADLS: Mona resides w/ her father. She reportedly is able to dress self w/ modification of wearing sports bra; she reports ability to untie shoes and manage zippers depending on clothing items. She receives assistance from her father w/ washing her hair ( given hypersensitivities/ aversion to getting soap in her eyes) and tying her shoe laces, as well as brushing her hair when it is long. Mona is able to brush/floss teeth and prepare microwaveable meals/feed self. Mona shares household tasks with her father, such as washing dishes , doing laundry, folding laundry. She reports making her own bed. Mona has personal cell phone and is able to use it to navigate the internet and listen to her favorite music. Mona reports difficulties with opening/ closing doors. QuickDASH UE Outcome Measure Score = 54.5. Functional AROM of L UE; able to place L hand on top of head and back of head while seated . Active L sh flexion 0-125 degrees. Active L sh abduction 0-105 degrees. L sh ER, elbow flexion/extension, forearm supination/pronation, wrist flexion/extension/RD/UD within functional limits. Able to oppose thumb to 4th digit pad w/ increased effort. Effort increases w/ pad opposition as thumb tries to motor plan to ulnar side of hand. She completed the Jebsen Trudy Hand Function Stacking Checkers subtest in 6.5 sec w/ R hand and in 22.5 sec w/ L hand; she completed the Jebsen Trudy Hand Function Lifting Small Objects subtest in 12.5 sec w/ R hand and in 59.5 sec w/ L hand; and completed the Jebsen Trudy Hand Function Simulated Page Turning subtest in 7.8 sec w/ R hand and in 18.4 sec w/ L hand. Mona would likely benefit from skilled outpatient to address attention to L UE, bimanual coordination, functional abilities of the L hand, UE AROM, establish an appropriate HEP, as well as explore modifications/ compensatory strategies to support successful participation in meaningful activities in a variety of environments w/ active incorporation of the L UE/hand . Plan Length of treatment (weeks) 10 Plan of Care Start Date 07/25/22 Plan of Care End Date 10/03/22 Treatment Frequency Once a Week Therapeutic Contents Active Range of Motion, Adaptive Equipment Education, Client Education,Cognitive Skills Development,Functional Activities,Home Exercise Program,Joint Protection, Manual Therapy,Education, Neurodevelopment Treatment, Neuromuscular Re-Education, Self-Care,Stretching/ Flexibility Activities, Therapeutic Activities, Therapeutic Exercises,Sensory Re-education Functional Wrist/Hand Scan Hand Side Sensory Assessment Sensory Profile2 OT Outpatient Muscle Testing Start: 07/25/22 14:57 Freq: Status: Active Protocol: Document 08/02/22 15:38 AMS (Rec: 08/02/22 15:47 AMS [id number]) Manager Policy/Hand Strength Manager Policy/Hand Strength Left Manager Policy Dynamometer II 50.0 Lateral Pinch Strengh (lbs) 15.0 Palmar Pinch Strength (lbs) 5.0 Tip Pinch Strength (lbs) 7.0 Comments Norms for 20-24 y.o. Manager Policy Strength = 61.0 +/- 13.1; Interpretation = within 1 SD below mean Norms for 20-24 y.o. Lateral Pinch Strength = 16.2 +/- 2.1; Interpretation = within 1 SD below mean Norms for 20-24 y.o. 3-jaw Pinch Strength = 16.3 +/- 2.8; Interpretation = > 4 SD below mean Norms for 20-24 y.o. Tip Pinch Strength = 10.5 +/- 1.7; Interpretation = > 2 SD below mean Right Manager Policy Dynamometer II 63.0 Lateral Pinch Strengh (lbs) 21.0 Palmar Pinch Strength (lbs) 17.0 Tip Pinch Strength (lbs) 16.0 Comments Norms for 20-24 y.o. Manager Policy Strength = 70.4 +/- 14.5; Interpretation = within 1 SD below mean Norms for 20-24 y.o. Lateral Pinch Strength = 17.6 +/- 2.0; Interpretation = > 1 SD above mean Norms for 20-24 y.o. 3-Jaw Pinch Strength = 17.2 +/- 2.3; Interpretation = within 1 SD below mean Norms for 20-24 y.o. Tip Pinch Strength = 11.1 +/- 2.1; Interpretation = > 2 SD above mean OT Outpatient Treatment Note - Adult Start: 07/25/22 14:57 Freq: Status: Active Protocol: Document 09/27/22 09:26 AMS (Rec: 09/27/22 09:33 AMS [id number]) OT Outpatient Adult Treatment Note Session Time Visit Start Time 08:30 Visit Stop Time 09:15 Total Visit Minutes 45 Visit Information Visit Number 8/8 visits x 3 units per visit PCY Plan of Care Dates 07/25/22 - 10/03/22 Insurance Information [employer]; 24 OT units Setting Treatment Setting Outpatient Care Visit Type Note Type Treatment Note General Information General Information Mona is a 21 year-old right hand dominant female referred to outpatient OT by PCP Dr. Bryan; pt is being seen here at for outpatient PT secondary to left sided rib pain, as well as recent increased number of falls. Medical history is significant for seizures; brain surgery; left sided hemiparesis. Mona reports residing with her father locally in [place], [place]. She is transported to [place] for gymnastics 1 x per week where she works on carrying light weights, hanging onto parallel bar with both hands above head, and ambulating on balance beam. Mona reports enjoying gymnastics, listening to music and spending time w/ her friend. 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 - Subjective Identification Type Name Identification Reconciled With Medical Record Observations No new concerns were reported by Mona. Report of difficulty with maintaining count of repetitions with exercising; modified exercise plan to executing exercises while listening to a favorite song/switching exercises when becoming fatigued/tired. Mona identified aunt as someone who would do the exercises with her. - Objective Objective Measurements Please refer to below for progress towards meeting established OT goals. Short Term Goals GOALS MET 1. Mona will present with improved functional abilities of the left hand: 1a. Mona will be sucessfully able to manage the opening and closing x 2 doors located within the outpatient clinic with the left hand with no support from therapist , relative to cueing to support initiation, as observed on 2 separate treatment dates, given up to 3 opportunities. 1b. Mona will be able to verbally identify 2 or 3 different pieces of adaptive equipment and/or compensatory/ modification techniques that will support her functional independence in the home environment without verbal support from therapist (e.g. adaptive options to support slicing of foods versus use of standard knife w/ self- feeding). Fpc Goals 1. Mona will be modified independent w/ execution of home exercise program utilizing provided written and visual instuctions from therapist. GOAL MET; however, there would likely be increased success w/ carry- over w/ support of family members/caregivers/friend - Treatment 1 Descriptor Motor planning. Wrist circles. Exercises 2 Descriptor L UE Strengthening. Modified yoga poses. Quadriped --> walk-out. 1 x 12 . Table Inch Worms (modified). Modified ball (WB thru UEs and lifting feet off of floor). 2 x 12. Versus Table. Modified downward dog ( repetitions versus hold). 1 x 12. 1 Descriptor UEB x 10 minutes. Forward. Seated. - Assessment Assessment of Improvement Mona met all established goals for outpatient OT; Mona however, continues to have difficulty motor planning and managing round knob doors . She was provided w/ materials in re: additional adaptive equipment available that may further support her functional independence in the home (e.g., rocker knife, magnetic shoe lace closure, socks w/ loops). She reports that family can assist her with looking into adaptive equipment/modified functional items. Home exercise program was modified based on feedback from Mona w/ recommendation to use favorite song versus counting. Discussed using personal handwritten calendar in the home to support carry- over of home exercises given that Mona reports that she writes/fills out the calendar. Mona would likely benefit from family member/caregiver/ friend to support carry-over of recommended exercises. Mona to be d/c from HEP d/t insurance limitations. - Plan Therapy Recommendations Discharge from Occupational Therapy
== END 2022-09-27 15:35 | disposition home or self-care (01) ==
LOC: OT 08:30
PROVIDERS: Family Provider Family Medicine; PCP Family Medicine; Referring Provider Family Medicine; Visit Provider Family Medicine
DX: R29.898 Other symptoms and signs involving the musculoskeletal system (principal); R26.89 Other abnormalities of gait and mobility; R27.8 Other lack of coordination; R53.1 Weakness
CPT/HCPCS: 97110; 97166; 97530

== ENCOUNTER 2022-11-19 08:40 | Emergency (ER) | payer OTHER, MEDICAID, SELFPAY ==
[2022-11-19] VITALS (20 sets, daily range): BP systolic 95–130; BP diastolic 62–83; PULSE 86–110; RESP 14–27; TEMP 37; O2SAT 95–100
--- NOTE | 2022-11-19 08:45 | DI.CT.S_ITS ---
PROCEDURE: CT HEAD/BRAIN WO CON INDICATIONS: seizure with L sided weakness TECHNIQUE: Noncontrast 4.5 mm thick angled axial sections acquired from the foramen magnum to the vertex, with coronal and sagittal reformats. For radiation dose reduction, the following was used: automated exposure control, adjustment of mA and/or kV according to patient size. COMPARISON: [facility], CT, CT HEAD/BRAIN WO CON, 05/03/2018, 17:43. FINDINGS: Image quality: Excellent. CSF spaces: Basal cisterns are patent. Left extra-axial spaces is asymmetrically prominent. No hyperdense blood products. Mild ex vacuole dilatation of the right lateral ventricle. Brain: Left to rightward midline shift measuring 0.5 cm. No intracranial masses or hemorrhage. Cortical sulci are asymmetrically prominent at the right parietal/occipital and posterior frontal lobes. Encephalomalacia from prior left frontal parietal procedure. Skull and face: Right craniotomy. Calvarium and visualized facial bones are intact, without suspicious lesions. Sinuses: Visualized sinuses and mastoids are clear. IMPRESSION: Prior right craniotomy with postoperative findings in the right frontal parietal lobe. No hyperdense blood products. Mild ex vacuole dilatation of the right lateral ventricle, prominent right extra-axial space and cortical sulci, and presumably postoperative encephalomalacia. Rightward midline shift measuring 0.5 cm. Recommend comparison to more recent postoperative CTs when available. Dictated by: Jimmy Zelaya M.D. on 11/19/2022 at 9:27 Approved by: Jimmy Zelaya M.D. on 11/19/2022 at 9:37
[2022-11-19 09:01] LABS: Add Manual Diff / Slide Review NO; Basophils Absolute Auto 100 /uL (0-100); Basophils Percent Auto 0.7 % (0-2); Eosinophils Absolute Auto 200 /uL (0-450); Eosinophils Percent Auto 1.7 % (2-4); Hemoglobin 12.9 g/dL (12.0-16.0); Lymphocytes Absolute Auto 3500 /uL (1100-4500); Lymphocytes Percent Auto 33.5 % (25-40); Mean Corpuscular HGB Conc 33.9 % (30-36); Mean Corpuscular Hemoglobin 28.3 PG (26-34); Mean Corpuscular Volume 83.5 fL (80-100); Monocytes Absolute Auto 600 /uL (0-900); Monocytes Percent Auto 5.7 % (3-14); Neutrophils Absolute Auto 6100 /uL (1500-7000); Neutrophils Percent Auto 58.4 % (50-75); Platelet Count 314 X10^3/uL (150-400); Red Blood Cell Count 4.55 X10^6/uL (4.0-5.2); Red Cell Distribution Width 13.9 % (11.6-14.8); White Blood Cell Count 10.4 X10^3/uL (4.5-11.0)
--- NOTE | 2022-11-19 09:10 | ED.SEIZURE ---
HPI - Seizure General Chief Complaint: Seizure Stated Complaint: Seizure Time Seen by Provider: 11/19/22 08:43 Source: patient, EMS and other (Family friend) Mode of arrival: EMS Limitations: no limitations History of Present Illness HPI Narrative: Patient is a 22-year-old female. Does have a reported history of a seizure disorder. Is on medications for this. Per family friends at bedside patient has not had a seizure in ?quite some time? she is taking all of her medications as directed. For report from family friend at bedside the patient woke up this morning. She walked out to get some breakfast. She stated that she did feel like she was going to have a seizure. She was able to walk around to her family friend who caught her. She did not fall and hit her head. She did have a generalized tonic-clonic seizure. Unsure exactly how long the seizure lasted but it did resolve on its own. Patient does report weakness on her left side and also a headache. She states she does feel very anxious. EMS was called by family. Related Data Home Medications Medication Instructions Recorded Confirmed oxcarbazepine 600 mg 1,200 mg PO BEDTIME 11/19/22 11/19/22 tablet,extended release 24 hr (Oxtellar XR) Previous Rx's Medication Instructions Recorded valacyclovir 1 gram tablet See Rx Instructions .Route 08/16/22 .COMPLEX #28 tabs acetaminophen 300 mg-codeine 30 mg See Rx Instructions .Route 08/20/22 tablet .COMPLEX #60 tabs trazodone 50 mg tablet See Rx Instructions .Route 09/17/22 .COMPLEX #90 tabs diazepam 2.5 mg rectal kit 5 mg WV Q6H PRN seizure activity 2 11/19/22 doses #1 ea Allergies Allergy/AdvReac Type Severity Reaction Status Date / Time No Known Drug Allergies Allergy Verified 11/19/22 08:57 Review of Systems Review of Systems ROS Unobtainable: All systems reviewed & are unremarkable except as noted in HPI and below Patient History Medical History Acute left flank pain Anxiety and depression Decreased mobility Dysuria Fatigue due to depression FH: breast cancer in first degree relative when <50 years old FHx: BRCA2 gene positive Hand dysfunction History of nephrolithiasis Insomnia disorder with non-sleep disorder mental comorbidity IT band syndrome Mixed incontinence urge and stress Seizure disorder Selective mutism as adjustment reaction Viral URI with cough Family History Mother Cancer Grandmother BRCA2 gene mutation positive Family/Other BRCA2 gene mutation positive Social History Smoking Status: Never smoker Smoking Status: Never smoker Exam Initial Vital Signs Initial Vital Signs: Vital Signs Temperature 98.6 F 11/19/22 08:43 Pulse Rate 110 H 11/19/22 08:43 Respiratory Rate 19 11/19/22 08:43 Blood Pressure 130/83 11/19/22 08:43 Pulse Oximetry 99 11/19/22 08:43 Oxygen Delivery Method Room Air 11/19/22 08:43 Const General: comfortable and No ill appearing HENMT Head: normal to inspection and normocephalic Face and sinus: normal facial exam Eyes Pupils: PERRL Resp Effort & Inspection: normal respiratory effort Auscultation: clear to auscultation bilaterally Cardio Rate: regular rate Rhythm: regular rhythm GI Inspection: normal to inspection and non-distended Skin General: no rashes or lesions noted Neuro Other: Patient is able to move all 4 extremities however it is obviously less so on the left. She does withdrawal to noxious stimuli in both her left upper and lower extremity. She does seem to resist movement of passive movement of her left arm. Nursing staff stated that she did aid and lifting her left arm when the blood pressure cuff was placed. Her cranial nerves are unremarkable. She states that she is somewhat confused about where she is although she was able to state that she thinks that she had a seizure this morning. Extrem General: normal to inspection and capillary refill normal Psych Other: Anxious Course Orders Ordered: ED Orders 11/19/22 08:45 CT head/brain wo con Stat 11/19/22 08:50 Complete Blood Count AUTO DIFF Stat Comprehensive Metabolic Panel Stat Lipase Stat 11/19/22 09:50 ETOH [Ethanol (ETOH)] Stat 11/19/22 15:08 Urine Drug Screen, Rapid Stat Discontinued Medications Acetaminophen (Acetaminophen 325 Mg Tablet) 650 mg PO NOW ONE Stop: 11/19/22 10:07 Last Admin: 11/19/22 10:19 Dose: 650 mg Documented By: RO Sodium Chloride (Normal Saline 0.9%) 1,000 mls @ 1,000 mls/hr IV BOLUS ONE Stop: 11/19/22 09:43 Last Infusion: 11/19/22 10:42 Dose: 0 mls/hr Documented By: Admin: 11/19/22 09:18 Dose: 1,000 mls/hr Documented By: HAN Lorazepam (Lorazepam 2 Mg/Ml Inj) 1 mg IV NOW ONE Stop: 11/19/22 09:11 Last Admin: 11/19/22 09:16 Dose: 1 mg Documented By: HAN Lorazepam (Lorazepam 2 Mg/Ml Inj) 1 mg IV NOW ONE Stop: 11/19/22 10:42 Last Admin: 11/19/22 11:01 Dose: 1 mg Documented By: HAN Vital Signs Vital signs: Vital Signs - 8 hr 11/19/22 08:43 11/19/22 09:03 11/19/22 09:17 Temperature 98.6 F Pulse Rate 110 H 101 H Respiratory Rate 19 27 H Blood Pressure 130/83 121/76 Pulse Oximetry 99 99 Oxygen Delivery Method Room Air 11/19/22 09:17 11/19/22 09:30 11/19/22 09:30 Temperature Pulse Rate 100 H 98 H Respiratory Rate 23 22 Blood Pressure 112/73 Pulse Oximetry 99 99 Oxygen Delivery Method Room Air 11/19/22 09:45 11/19/22 09:45 11/19/22 10:00 Temperature Pulse Rate 100 H Respiratory Rate 21 Blood Pressure 117/74 115/73 Pulse Oximetry 100 Oxygen Delivery Method Room Air 11/19/22 10:00 11/19/22 10:15 11/19/22 10:15 Temperature Pulse Rate 102 H 93 H Respiratory Rate 22 21 Blood Pressure 116/69 Pulse Oximetry 100 100 Oxygen Delivery Method 11/19/22 10:30 11/19/22 10:30 11/19/22 10:45 Temperature Pulse Rate 95 H Respiratory Rate 22 Blood Pressure 119/76 119/78 Pulse Oximetry 99 Oxygen Delivery Method 11/19/22 10:45 11/19/22 11:00 11/19/22 11:00 Temperature Pulse Rate 97 H 101 H Respiratory Rate 21 24 Blood Pressure 122/73 Pulse Oximetry 99 99 Oxygen Delivery Method 11/19/22 11:30 11/19/22 11:30 11/19/22 12:00 Temperature Pulse Rate 99 H Respiratory Rate 22 Blood Pressure 125/79 119/73 Pulse Oximetry 98 Oxygen Delivery Method 11/19/22 12:00 11/19/22 12:30 11/19/22 12:30 Temperature Pulse Rate 104 H 101 H Respiratory Rate 20 19 Blood Pressure 112/74 Pulse Oximetry 98 97 Oxygen Delivery Method 11/19/22 13:00 11/19/22 13:00 11/19/22 13:30 Temperature Pulse Rate 93 H Respiratory Rate 16 Blood Pressure 98/66 102/62 Pulse Oximetry 95 Oxygen Delivery Method Room Air 11/19/22 13:30 11/19/22 14:00 11/19/22 14:00 Temperature Pulse Rate 86 88 Respiratory Rate 15 14 Blood Pressure 114/62 Pulse Oximetry 97 Oxygen Delivery Method Room Air 11/19/22 14:30 11/19/22 14:30 11/19/22 15:00 Temperature Pulse Rate 89 95 H Respiratory Rate 16 17 Blood Pressure 95/63 Pulse Oximetry 96 Oxygen Delivery Method 11/19/22 15:08 11/19/22 15:08 Temperature Pulse Rate 94 H Respiratory Rate 19 Blood Pressure 127/78 Pulse Oximetry Oxygen Delivery Method MDM - Seizure Lab Data Attestation: I reviewed the patient's lab results. 11/19/22 08:50 11/19/22 08:50 Labs: Lab Results 11/19/22 11/19/22 11/19/22 Range/Units 08:50 08:50 09:50 WBC 10.4 (4.5-11.0) X10^3/uL RBC 4.55 (4.0-5.2) X10^6/uL Hgb 12.9 (12.0-16.0) g/dL Hct 38.0 (36-46) % MCV 83.5 (80-100) fL MCH 28.3 (26-34) PG MCHC 33.9 (30-36) % RDW 13.9 (11.6-14.8) % Plt Count 314 (150-400) X10^3/uL Neut % (Auto) 58.4 (50-75) % Lymph % (Auto) 33.5 (25-40) % [place] % (Auto) 5.7 (3-14) % Eos % (Auto) 1.7 L (2-4) % Baso % (Auto) 0.7 (0-2) % Neut # (Auto) 6100 (8588-4222) /uL Lymph # (Auto) 3500 (1760-7399) /uL [place] # (Auto) 600 (0-900) /uL Eos # (Auto) 200 (0-450) /uL Baso # (Auto) 100 (0-100) /uL Sodium 138 (137-145) mmol/L Potassium 3.4 (3.4-5.1) mmol/L Chloride 103 (98-107) mmol/L Carbon Dioxide 25 (22-32) mmol/L BUN 9 (7-17) mg/dL Creatinine 0.68 (0.52-1.04) mg/dL Estimated GFR > 60 (>60) mL/min BUN/Creatinine Ratio 13.2 (6-22) Glucose 110 H (70-100) mg/dL Calcium 9.0 (8.4-10.2) mg/dL Total Bilirubin 0.1 L (0.2-1.3) mg/dL AST 22 (14-36) IU/L ALT 35 H (<35) IU/L Alkaline Phosphatase 72 (38-126) U/L Total Protein 7.6 (6.3-8.2) g/dL Albumin 4.2 (3.5-5.0) g/dL Globulin 3.4 (1.7-4.1) g/dL Albumin/Globulin Ratio 1.2 (1.0-2.8) Lipase 86 (23-300) U/L U Opiates 300ng/mL cut (Negative) Ur Oxycodone Screen (Negative) Urine Methadone Screen (Negative) Ur Barbiturates Screen (Negative) U Tricyclic Antidepress (Negative) Ur Phencyclidine Scrn (Negative) Ur Amphetamines Screen (Negative) U Methamphetamines Scrn (Negative) Ur MDMA Scrn (Ecstasy) (Negative) U Benzodiazepines Scrn (Negative) Urine Cocaine Screen (Negative) U Marijuana (THC) Screen (Negative) Ethyl Alcohol < 10 ( - 10) mg/dL 11/19/22 Range/Units 15:08 WBC (4.5-11.0) X10^3/uL RBC (4.0-5.2) X10^6/uL Hgb (12.0-16.0) g/dL Hct (36-46) % MCV (80-100) fL MCH (26-34) PG MCHC (30-36) % RDW (11.6-14.8) % Plt Count (150-400) X10^3/uL Neut % (Auto) (50-75) % Lymph % (Auto) (25-40) % [place] % (Auto) (3-14) % Eos % (Auto) (2-4) % Baso % (Auto) (0-2) % Neut # (Auto) (8840-5795) /uL Lymph # (Auto) (6096-5846) /uL [place] # (Auto) (0-900) /uL Eos # (Auto) (0-450) /uL Baso # (Auto) (0-100) /uL Sodium (137-145) mmol/L Potassium (3.4-5.1) mmol/L Chloride (98-107) mmol/L Carbon Dioxide (22-32) mmol/L BUN (7-17) mg/dL Creatinine (0.52-1.04) mg/dL Estimated GFR (>60) mL/min BUN/Creatinine Ratio (6-22) Glucose (70-100) mg/dL Calcium (8.4-10.2) mg/dL Total Bilirubin (0.2-1.3) mg/dL AST (14-36) IU/L ALT (<35) IU/L Alkaline Phosphatase (38-126) U/L Total Protein (6.3-8.2) g/dL Albumin (3.5-5.0) g/dL Globulin (1.7-4.1) g/dL Albumin/Globulin Ratio (1.0-2.8) Lipase (23-300) U/L U Opiates 300ng/mL cut Positive H (Negative) Ur Oxycodone Screen Negative (Negative) Urine Methadone Screen Negative (Negative) Ur Barbiturates Screen Negative (Negative) U Tricyclic Antidepress Negative (Negative) Ur Phencyclidine Scrn Negative (Negative) Ur Amphetamines Screen Negative (Negative) U Methamphetamines Scrn Negative (Negative) Ur MDMA Scrn (Ecstasy) Negative (Negative) U Benzodiazepines Scrn Positive H (Negative) Urine Cocaine Screen Negative (Negative) U Marijuana (THC) Screen Negative (Negative) Ethyl Alcohol ( - 10) mg/dL Point of Care Testing Test Results Negative Urine Dip Bedside Urine Glucose Negative Bedside Urine Bilirubin - Negative Bedside Urine Ketone - Negative Urine Specific [place] 1.005 Bedside Urine Occult Blood - Negative Bedside Urine pH 8.0 Bedside Urine Protein - Negative Bedside Urine Urobilinogen - Negative Bedside Urine Nitrite - Negative Bedside Urine Leukocytes - Negative Esterase Imaging Data CT scan - head: Radiologist's Impression: PROCEDURE:? CT HEAD/BRAIN WO CON ? INDICATIONS:? seizure with L sided weakness ? TECHNIQUE:? Noncontrast 4.5 mm thick angled axial sections acquired from the foramen magnum to the vertex, with coronal and sagittal reformats.? For radiation dose reduction, the following was used:? automated exposure control, adjustment of mA and/or kV according to patient size.? ? COMPARISON:? [facility], CT, CT HEAD/BRAIN WO CON, 05/03/2018, 17:43. ? FINDINGS:? Image quality:? Excellent.? ? CSF spaces:? Basal cisterns are patent.? Left extra-axial spaces is asymmetrically prominent.? No hyperdense blood products.? Mild ex vacuole dilatation of the right lateral ventricle. ? Brain:? Left to rightward midline shift measuring 0.5 cm. No intracranial masses or hemorrhage.? Cortical sulci are asymmetrically prominent at the right parietal/occipital and posterior frontal lobes.? Encephalomalacia from prior left frontal parietal procedure. ? Skull and face:? Right craniotomy.? Calvarium and visualized facial bones are intact, without suspicious lesions.? ? Sinuses:? Visualized sinuses and mastoids are clear.? ? IMPRESSION:? Prior right craniotomy with postoperative findings in the right frontal parietal lobe.? No hyperdense blood products.? ? Mild ex vacuole dilatation of the right lateral ventricle, prominent right extra-axial space and cortical sulci, and presumably postoperative encephalomalacia.? Rightward midline shift measuring 0.5 cm. ? Recommend comparison to more recent postoperative CTs when available. MDM Narrative Medical decision making narrative: 1000: Pt states she is still feeling poorly. She is still having a headache. When I re-evaluated her she is now moving her left leg. 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 Will continue to monitor. Patient continues to complain of a headache however review of her medical record shows that having severe headaches after her seizures is very common. I did discuss this with her. She stated that this does happen after having seizures and sometimes lasts ?a long time? before it resolves. She also has baseline left-sided weakness. It does sometimes get worse after seizures. Her father was at bedside. He seems to think that the patient is back to her baseline with regard to the left-sided weakness. Had a discussion with them regarding options to include continue to observe here in the emergency department for further resolution of symptoms versus discharge home. The patient's father thinks that he is comfortable taking her home. He asked for ?rescue medicines? that he is had in the past but has not needed she is not had a seizure in quite some time. Based on the fact that this has been her only seizure in quite awhile we will not make any changes to her seizure medications. She did see a new neurologist last week. Father was advised that he needs to make contact this provider for follow-up. Father was given return precautions. He expressed understanding and agreement. Discharge Plan Departure Patient Disposition: Home Clinical Impression: Seizure disorder Instructions: DI for Seizure Disorder -- Adult Activity Restrictions/Additional Instructions: I recommend that Mona continue to take all of her medications as directed. I also recommend that you contact her neurologist office for follow-up. She is not to drive for the next 6 months or until she is cleared by her neurologist. Return to the emergency department for new or worsening symptoms. Prescriptions: New diazepam 2.5 mg kit 5 mg WV Q6H PRN (Reason: seizure activity) Qty: 1 0RF No Action valacyclovir 1 gram tablet See Rx Instructions .ROUTE .COMPLEX Qty: 28 0RF Dose Instruction: Take 2 tablets twice each day for 1 day at 1st sign of cold sore --use as needed for cold sores-- Rx Instructions: Take 2 tablets twice each day for 1 day at 1st sign of cold sore --use as needed for cold sores-- acetaminophen-codeine 300-30 mg tablet See Rx Instructions .ROUTE .COMPLEX Qty: 60 0RF Rx Instructions: Take 1 tablet by mouth 3 times daily as needed for pain trazodone 50 mg tablet See Rx Instructions .ROUTE .COMPLEX Qty: 90 3RF Dose Instruction: Take one to two tablets by mouth nightly as needed for sleep Rx Instructions: Take one to two tablets by mouth nightly as needed for sleep Oxtellar XR 600 mg tablet extended release 24 hr 1,200 mg PO BEDTIME Rx Instructions: must be taken on empty stomach; no food at least 2 hrs before or 1 hr after dose Referrals: Cirilo Bryan MD [Primary Care Provider] - Stand Alone Forms: Patient Portal/API
[2022-11-19] MEDS: LORazepam 2 MG/ML INJ 1 MG IV ×2 (09:16→11:01)
[2022-11-19 09:17] LABS: Alanine Aminotransferase 35 IU/L (<35); Albumin 4.2 g/dL (3.5-5.0); Albumin Globulin Ratio 1.2 (1.0-2.8); Alkaline Phosphatase 72 U/L (38-126); Aspartate Aminotransferase 22 IU/L (14-36); BUN Creatinine Ratio 13.2 (6-22); Bilirubin Total 0.1 mg/dL (0.2-1.3); Blood Urea Nitrogen 9 mg/dL (7-17); Carbon Dioxide 25 mmol/L (22-32); Chloride 103 mmol/L (98-107); Estimated Glomerular Filt Rate > 60 mL/min (>60); Globulin 3.4 g/dL (1.7-4.1); Glucose 110 mg/dL (70-100); HEMOLYSIS < 15 (0-50); Lipase 86 U/L (23-300); Potassium 3.4 mmol/L (3.4-5.1); Sodium 138 mmol/L (137-145); Total Protein 7.6 g/dL (6.3-8.2)
[2022-11-19] MEDS: SODIUM CHLORIDE 0.9% 1,000 ML 1000 ML IV (09:18)
--- NOTE | 2022-11-19 09:55 | PC.NURSE ---
Patient states she has had known seizure disorders since 18 months of age, had brain surgery 3 years ago and has been seizure free since. Takes Oxteller daily and is compliant with medication. Saw her Neurologist through on 11/13/22, reports no changes in medication dosing. Patient states she felt aura and got up from bed to make sure someone in the household could see her, stumbled into family member and was assisted down while having reported grand mal seizure. Pt reports residual headache and improving left side weakness.
[2022-11-19] MEDS: ACETAMINOPHEN 325 MG TABLET 650 MG PO (10:19)
--- NOTE | 2022-11-19 10:43 | PC.NURSE ---
Pt reports unable to lift left arm and leg on command. Instructed pt to bridge hips and pt noted to bend lef leg with right leg and press into the bed, instructed pt to assist self up in stretcher and pt noted to bend left arm independently.
[2022-11-19 13:08] LABS: Ethanol (ETOH) < 10 mg/dL
--- NOTE | 2022-11-19 15:16 | PC.NURSE ---
Pt stood and transferred to [facility], utilizing legs bilaterally. Pt keeps left arm to side, but was assessed to use it for sitting/standing/repositioning. Pt reports continued headache despite interventions and weakness. Dr. Akbar updated.
[2022-11-19 15:30] LABS: UR Morphine/Opiate cutoff 300 Positive (Negative); Ur Creatinine Normal (Normal); Ur Specific Gravity Normal (Normal); Urine Amphetamines Negative (Negative); Urine Barbiturates Negative (Negative); Urine Benzodiazepines Positive (Negative); Urine Cocaine Negative (Negative); Urine MDMA Negative (Negative); Urine Methadone Negative (Negative); Urine Methamphetamines Negative (Negative); Urine Oxycodone Negative (Negative); Urine Phencyclidine Negative (Negative); Urine Tetrahydrocannabinol Negative (Negative); Urine Tricyclic Antidepressant Negative (Negative); Urine pH Normal (Normal)
--- NOTE | 2022-11-19 16:14 | PC.NURSE ---
Upon discharge pt states she wishes to stay r/t feeling weak and continuing headache. Father at bedside and states this is usual post seizure for pt, Dr. Akbar aware. Educated pt concerning discharge plan of care and pt verbalizes understanding, father states he is comfortable taking pt home.
== END 2022-11-19 16:20 | disposition home or self-care (01) ==
PROVIDERS: Emergency Provider Emergency Medicine; Family Provider Family Medicine; PCP Family Medicine
DX: G40.909 Epilepsy, unspecified, not intractable, without status epilepticus (principal); R51.9 Headache, unspecified; G40.109 Localization-related (focal) (partial) symptomatic epilepsy and epileptic syndromes with simple partial seizures, not intractable, without status epilepticus
CPT/HCPCS: 36415; 70450; 80048; 80053; 80183; 80305; 80320; 81003; 81025; 82306; 83690; 85025; 96374; 96376; 99284; J2060

== ENCOUNTER → 2022-11-19 16:37 | Outpatient (CLI) | payer OTHER, MEDICAID, SELFPAY ==
[2022-11-19 17:20] LABS: Add Manual Diff / Slide Review NO; Basophils Absolute Auto 100 /uL (0-100); Basophils Percent Auto 0.6 % (0-2); Eosinophils Absolute Auto 100 /uL (0-450); Eosinophils Percent Auto 1.3 % (2-4); Hematocrit 38.1 % (36-46); Lymphocytes Absolute Auto 2500 /uL (1100-4500); Lymphocytes Percent Auto 24.4 % (25-40); Mean Corpuscular HGB Conc 34.2 % (30-36); Mean Corpuscular Hemoglobin 28.4 PG (26-34); Mean Corpuscular Volume 83.1 fL (80-100); Monocytes Absolute Auto 500 /uL (0-900); Monocytes Percent Auto 4.9 % (3-14); Neutrophils Absolute Auto 7000 /uL (1500-7000); Neutrophils Percent Auto 68.8 % (50-75); Platelet Count 323 X10^3/uL (150-400); Red Blood Cell Count 4.58 X10^6/uL (4.0-5.2); Red Cell Distribution Width 14.1 % (11.6-14.8); White Blood Cell Count 10.1 X10^3/uL (4.5-11.0)
[2022-11-19 17:30] LABS: BUN Creatinine Ratio 11.7 (6-22); Blood Urea Nitrogen 7 mg/dL (7-17); Calcium 8.7 mg/dL (8.4-10.2); Carbon Dioxide 25 mmol/L (22-32); Chloride 104 mmol/L (98-107); Estimated Glomerular Filt Rate > 60 mL/min (>60); Glucose 96 mg/dL (70-100); HEMOLYSIS < 15 (0-50); Potassium 4.2 mmol/L (3.4-5.1); Sodium 136 mmol/L (137-145)
[2022-11-19 17:46] LABS: Vitamin D 25 Hydroxy (D3) < 12.8 ng/mL (30.0-100.0)
[2022-11-21 13:36] LABS: Oxcarbazepin, Trileptal 25 ug/mL (10-35)
== END ==
PROVIDERS: Family Provider Family Medicine; PCP Family Medicine; Referring Provider Psychiatry & Neurology Neurology; Visit Provider Psychiatry & Neurology Neurology
DX: G40.109 Localization-related (focal) (partial) symptomatic epilepsy and epileptic syndromes with simple partial seizures, not intractable, without status epilepticus (principal)
CPT/HCPCS: 36415; 80048; 80183; 82306; 85025

== ENCOUNTER 2022-11-27 15:15 | Outpatient (RCR) | payer OTHER, MEDICAID, SELFPAY ==
--- NOTE | 2022-07-17 16:16 | PT.OPPOC ---
Physical, Occupational & Speech Therapy At [facility] Current Diagnoses Muscle weakness (generalized) (07/17/22) Unspecified abdominal pain (07/17/22) Difficulty in walking, not elsewhere classified (07/17/22) Other abnormalities of gait and mobility (07/17/22) Abnormal posture (07/17/22) Visit Care Team Role Provider Type Carson Perez DO Attending Provider Physician Family Provider Primary Care Provider Referring Provider Specialty: [facility] Address: [address] [place] [address] Email: [email or web address] Of Care PT-OP-T Assessment and Plan Start: 07/12/22 17:50 Freq: Status: Active Protocol: Document 07/17/22 13:49 [facility] (Rec: 07/17/22 15:06 [facility] [id number]) Physical Therapy Assessment Rehab Potential Rehabilitation Potential Good Evaluation Complexity Number of Personal Factors/Comorbidities 3 or More Number of Body Systems Impaired 4 or More Clinical Presentation at Evaluation Unstable Impairments Impairments Activity Tolerance,Balance, Coordination,Functional Activities,Functional Mobility ,Gait,Pain,Posture,ROM,Soft Tissue Mobility,Strength,Tone Goals activity Chief Of Planning Goal (LTG) Pt will report no longer spending most of her day in bed and is consistantly going for walks with her friend without inc pain or heavy fear of falls. LTG Duration 10/08/22 balance Short Term Goal (STG) Pt will be able to do at least 10x sit to burglar alarm inspector 30 sec to show dec fall risk and inc functional strength STG Duration 09/06/22 Chief Of Planning Goal (LTG) Pt will improve DGI score to at least 19 to show dec risk for falls. LTG Duration 10/08/22 pain Short Term Goal (STG) Pt will report ovearll dec pain w/pain no greater than 4/ 10. STG Duration 09/04/22 Fci Goal (LTG) Pt will have full ROM Of spine without inc pain to allow for normal daily activities without inc pain. LTG Duration 10/08/22 Assessment Summary Assessment Pt presents after multiple falls which pt feels has been more frequent recently and onset of L sided rib pain that started a few months ago. Pt' s best guess, is that pain is from one of her many falls. Due to her complex history w/ seizures and brain surgery w/ hemiparesis, pt will likely take an increased amount of time to improve her balance, strength and decrease her pain . She has limited trunk ROM w/ significant pain during the ROM and has been more sedentary d/t this pain.S he would benefit from skilled PT to work on overall strength, balance, gait, ROM and dec pain. Physical Therapy Plan Frequency and Duration Frequency of Treatment 1-2x/wk Duration of treatment (weeks) 12 Plan of Care Start Date 07/17/22 Plan of Care End Date 10/08/22 Therapeutic Interventions Therapeutic Interventions Balance Training,Coordination Training,Gait Training,Home Exercise Program,Joint Mobilizations,Manual Therapy, Neuromuscular Re-education, Orthotic/Prosthetic Management ,Patient/Caregiver Education, Self-Care/Home Management,Soft Tissue Mobilization,Taping, Therapeutic Activities, Therapeutic Exercises Modalities Cold Pack/Ice Massage,Hot Packs Next Visit Focus/Plan Next Note Type Treatment Note Next Visit Plan *short visits d/t insurance only allows 24 units per year* HEP: seated rotation, wall posture, sit to stands, ankle DF ; tandem stance/staggered stance balance; manual to ribcage Plan of Care Dates Plan of Care Start Date 07/17/22 Plan of Care End Date 10/08/22 Electronically Signed by: Lilibeth Schroeder, PT 07/19/22 0816 If you are in agreement with this Plan of Care, please return a signed and dated copy. I have reviewed this Plan of Care and certify that the skilled therapy services above are required to meet the patient?s needs. Physician Signature Date Printed Name and Credentials Clinical Instructor Signature Printed Name and Credentials
--- NOTE | 2022-07-17 16:16 | PT.OIE ---
Current Diagnoses Muscle weakness (generalized) (07/17/22) Unspecified abdominal pain (07/17/22) Difficulty in walking, not elsewhere classified (07/17/22) Other abnormalities of gait and mobility (07/17/22) Abnormal posture (07/17/22) Past Medical History (Last Updated 06/13/22 @ 18:52 by Ammon Laurent PA-C) Acute left flank pain Anxiety and depression Decreased mobility Dysuria Fatigue due to depression FH: breast cancer in first degree relative when <50 years old FHx: BRCA2 gene positive Hand dysfunction History of nephrolithiasis Insomnia disorder with non-sleep disorder mental comorbidity IT band syndrome Mixed incontinence urge and stress Seizure disorder Selective mutism as adjustment reaction Viral URI with cough Visit Care Team Role Provider Type Carson Perez DO Attending Provider Physician Family Provider Primary Care Provider Referring Provider Specialty: Family Practice Address: [address] [place] [address], [facility] Email: [email or web address] Physical Therapy Initial Evaluation PT-OP-A Visit Information Start: 07/12/22 17:50 Freq: Status: Active Protocol: Document 07/17/22 13:49 [facility] (Rec: 07/17/22 15:06 [facility] [id number]) Out-Patient Physical Therapy Visit Information Visit Information Visit Type Initial Evaluation Visit Start Time 13:50 Visit Stop Time 14:30 Total Visit Minutes 40 Visit Number 1 Number of CDL INSTRUCTOR Visits 0 PT-OP-B Current Condition Start: 07/12/22 17:50 Freq: Status: Active Protocol: Document 07/17/22 13:49 [facility] (Rec: 07/17/22 15:06 [facility] [id number]) Current Condition History of Current Condition Current Complaints L lat ribcage pain History of Current Condition Pt reports L lat ribcage pain that has been going on for a while (a few months) but doesn 't remember what caused it. Reports she has been falling a lot lately. She trips a lot. She reports it is at least once a month and most of the time its outside. Pt walks with a cane when outside but nothing inside. She thinks that started more this winter. Pt tries to go for walks 2x/ week with a friend but somtimes not going as far partly d/t weather and partly d/t concern for falling. SHe can sometimes get up herself but sometimes can't and family or friends have to help. Pt si going through a hard time w /family money issues along w/ passing of mother in Nov. Dad helps wash her hair but pt brushes her hair and dresses herself. Pt reports she has been laying in bed a lot d/t it hurting a lot. 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 She had a R ant temporal lobe resection in 10/19/18. Treatment Goals Patient/Caregiver Goals improve balance and dec L side pain PT-OP-C Subjective Start: 07/12/22 17:50 Freq: Status: Active Protocol: Document 07/17/22 13:49 [facility] (Rec: 07/17/22 15:06 [facility] [id number]) OP-PT Pain Assessment Location L side pain Pain Location Details ribs 6-12 mostly Intensity 7 Scale Used Numeric (0 - 10) Description Sharp,With Movement Frequency Intermittent Pain Aggravating Factors Walking Pain Alleviating Factors Inactivity Other Pain Alleviating Factors lidocane patches, laying on back or side, sit down PT-OP-E Functional Tests Start: 07/12/22 17:50 Freq: Status: Active Protocol: Document 07/17/22 13:49 [facility] (Rec: 07/17/22 15:06 [facility] [id number]) Functional Tests 30 Second Sit to Stand Test Score 6 Dynamic Gait Index (DGI) Score 13 Five Times Sit to Stand Test Score 25 Functional Gait Assessment Score 11 PT-OP-F Manual Assessment Start: 07/12/22 17:50 Freq: Status: Active Protocol: Document 07/17/22 13:49 [facility] (Rec: 07/17/22 15:06 [facility] [id number]) Manual Assessments Soft Tissue Assessment Soft Tissue Mobility Assessment tenderness over lat ribcage PT-OP-G Mobility & Gait Start: 07/12/22 17:50 Freq: Status: Active Protocol: Document 07/17/22 13:49 [facility] (Rec: 07/19/22 07:59 [facility] [id number]) OP Gait Assessment Comments Gait Comments Pt amb w/dec stance time on L w/dec push off and requires lat lean to R to clear LLE as she has dec DF strength and hip flexor strength PT-OP-J Posture/Palpation/Skin Start: 07/12/22 17:50 Freq: Status: Active Protocol: Document 07/17/22 13:49 [facility] (Rec: 07/19/22 07:59 [facility] [id number]) Posture Evaluation Comments Posture Comments significantly inc kyphosis w/ rounded shoulders and fwd head ; pt tends to clasp hands in front of her PT-OP-K Range of Motion Start: 07/12/22 17:50 Freq: Status: Active Protocol: Document 07/17/22 13:49 [facility] (Rec: 07/17/22 15:06 [facility] [id number]) Lumbar Spine Range of Motion Lumbar Spine Active Degrees Rotation Left 20 Rotation Right 35 Lateral Flexion Left 15 Lateral Flexion Right 34 ROM Limitations Pain Comments pain more w/l rot; passively : L~20%; R ~40%- pain w/L; passive SB L (seated) about 40 % w/pain; R 75%; flex ends about 10% d/t pain and imbalance; pain w/ext-all in lumbar region 50% range PT-OP-M Strength Start: 07/12/22 17:50 Freq: Status: Active Protocol: Document 07/17/22 13:49 [facility] (Rec: 07/17/22 15:06 [facility] [id number]) Shoulder Strength Shoulder Manual Muscle Testing Right Flexion 4- Good- Extension 4- Good- Abduction (C5) 4- Good- Comments no pain in trunk Left Flexion 2- Poor- Extension 2+ Poor+ Abduction (C5) 2- Poor- Comments no pain in truck w/UE motion Hip Strength Hip Manual Muscle Testing Right Flexion (L2) 4- Good- Extension (S1) 3 Fair Abduction 3+ Fair+ External Rotation 3 Fair Internal Rotation 4- Good- Left Flexion (L2) 3- Fair- Extension (S1) 2 Poor Abduction 2+ Poor+ External Rotation 3- Fair- Internal Rotation 3- Fair- Knee Strength Knee Manual Muscle Testing Right Flexion (S2) 4 Good Extension (L3) 4 Good Left Flexion (S2) 3+ Fair+ Extension (L3) 3 Fair Ankle/Foot Strength Ankle and Foot Manual Muscle Testing Right Dorsiflexion (L4) 5 Normal Left Dorsiflexion (L4) 2+ Poor+ PT-OP-T Assessment and Plan Start: 07/12/22 17:50 Freq: Status: Active Protocol: Document 07/17/22 13:49 [facility] (Rec: 07/17/22 15:06 [facility] [id number]) Physical Therapy Assessment Rehab Potential Rehabilitation Potential Good Evaluation Complexity Number of Personal Factors/Comorbidities 3 or More Number of Body Systems Impaired 4 or More Clinical Presentation at Evaluation Unstable Impairments Impairments Activity Tolerance,Balance, Coordination,Functional Activities,Functional Mobility ,Gait,Pain,Posture,ROM,Soft Tissue Mobility,Strength,Tone Goals activity Detention Goal (LTG) Pt will report no longer spending most of her day in bed and is consistantly going for walks with her friend without inc pain or heavy fear of falls. LTG Duration 10/08/22 balance Short Term Goal (STG) Pt will be able to do at least 10x sit to stock parts inspector 30 sec to show dec fall risk and inc functional strength STG Duration 09/06/22 Detention Goal (LTG) Pt will improve DGI score to at least 19 to show dec risk for falls. LTG Duration 10/08/22 pain Short Term Goal (STG) Pt will report ovearll dec pain w/pain no greater than 4/ 10. STG Duration 09/04/22 Advertising Vice President Goal (LTG) Pt will have full ROM Of spine without inc pain to allow for normal daily activities without inc pain. LTG Duration 10/08/22 Assessment Summary Assessment Pt presents after multiple falls which pt feels has been more frequent recently and onset of L sided rib pain that started a few months ago. Pt' s best guess, is that pain is from one of her many falls. Due to her complex history w/ seizures and brain surgery w/ hemiparesis, pt will likely take an increased amount of time to improve her balance, strength and decrease her pain . She has limited trunk ROM w/ significant pain during the ROM and has been more sedentary d/t this pain.S he would benefit from skilled PT to work on overall strength, balance, gait, ROM and dec pain. Physical Therapy Plan Frequency and Duration Frequency of Treatment 1-2x/wk Duration of treatment (weeks) 12 Plan of Care Start Date 07/17/22 Plan of Care End Date 10/08/22 Therapeutic Interventions Therapeutic Interventions Balance Training,Coordination Training,Gait Training,Home Exercise Program,Joint Mobilizations,Manual Therapy, Neuromuscular Re-education, Orthotic/Prosthetic Management ,Patient/Caregiver Education, Self-Care/Home Management,Soft Tissue Mobilization,Taping, Therapeutic Activities, Therapeutic Exercises Modalities Cold Pack/Ice Massage,Hot Packs Next Visit Focus/Plan Next Note Type Treatment Note Next Visit Plan *short visits d/t insurance only allows 24 units per year* HEP: seated rotation, wall posture, sit to stands, ankle DF ; tandem stance/staggered stance balance; manual to ribcage
--- NOTE | 2022-07-24 14:36 | PT.OTN ---
Current Diagnoses Muscle weakness (generalized) (07/24/22) Unspecified abdominal pain (07/24/22) Difficulty in walking, not elsewhere classified (07/24/22) Other abnormalities of gait and mobility (07/24/22) Abnormal posture (07/24/22) Physical Therapy Treatment Note PT-OP-A Visit Information Start: 07/12/22 17:50 Freq: Status: Active Protocol: Document 07/24/22 13:58 [facility] (Rec: 07/24/22 14:36 [facility] [id number]) Out-Patient Physical Therapy Visit Information Visit Information Visit Type Treatment Note Visit Start Time 13:53 Visit Stop Time 14:28 Total Visit Minutes 35 Visit Number 2 Number of CLERK RATING Visits 0 PT-OP-B Current Condition Start: 07/12/22 17:50 Freq: Status: Active Protocol: Document 07/17/22 13:49 [facility] (Rec: 07/17/22 15:06 [facility] [id number]) Current Condition History of Current Condition Current Complaints L lat ribcage pain History of Current Condition Pt reports L lat ribcage pain that has been going on for a while (a few months) but doesn 't remember what caused it. Reports she has been falling a lot lately. She trips a lot. She reports it is at least once a month and most of the time its outside. Pt walks with a cane when outside but nothing inside. She thinks that started more this winter. Pt tries to go for walks 2x/ week with a friend but somtimes not going as far partly d/t weather and partly d/t concern for falling. SHe can sometimes get up herself but sometimes can't and family or friends have to help. Pt si going through a hard time w /family money issues along w/ passing of mother in May. Dad helps wash her hair but pt brushes her hair and dresses herself. Pt reports she has been laying in bed a lot d/t it hurting a lot. 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 She had a R ant temporal lobe resection in 10/19/18. Treatment Goals Patient/Caregiver Goals improve balance and dec L side pain PT-OP-C Subjective Start: 07/12/22 17:50 Freq: Status: Active Protocol: Document 07/24/22 13:58 [facility] (Rec: 07/24/22 14:36 [facility] [id number]) OP-PT Subjective Patient Comments Patient Comments Pt reports she is tired from just waking up PT-OP-E Functional Tests Start: 07/12/22 17:50 Freq: Status: Active Protocol: Document 07/17/22 13:49 [facility] (Rec: 07/17/22 15:06 [facility] [id number]) Functional Tests 30 Second Sit to Stand Test Score 6 Dynamic Gait Index (DGI) Score 13 Five Times Sit to Stand Test Score 25 Functional Gait Assessment Score 11 PT-OP-F Manual Assessment Start: 07/12/22 17:50 Freq: Status: Active Protocol: Document 07/17/22 13:49 [facility] (Rec: 07/17/22 15:06 [facility] [id number]) Manual Assessments Soft Tissue Assessment Soft Tissue Mobility Assessment tenderness over lat ribcage PT-OP-G Mobility & Gait Start: 07/12/22 17:50 Freq: Status: Active Protocol: Document 07/17/22 13:49 [facility] (Rec: 07/19/22 07:59 [facility] [id number]) OP Gait Assessment Comments Gait Comments Pt amb w/dec stance time on L w/dec push off and requires lat lean to R to clear LLE as she has dec DF strength and hip flexor strength PT-OP-J Posture/Palpation/Skin Start: 07/12/22 17:50 Freq: Status: Active Protocol: Document 07/17/22 13:49 [facility] (Rec: 07/19/22 07:59 [facility] [id number]) Posture Evaluation Comments Posture Comments significantly inc kyphosis w/ rounded shoulders and fwd head ; pt tends to clasp hands in front of her PT-OP-K Range of Motion Start: 07/12/22 17:50 Freq: Status: Active Protocol: Document 07/17/22 13:49 [facility] (Rec: 07/17/22 15:06 [facility] [id number]) Lumbar Spine Range of Motion Lumbar Spine Active Degrees Rotation Left 20 Rotation Right 35 Lateral Flexion Left 15 Lateral Flexion Right 34 ROM Limitations Pain Comments pain more w/l rot; passively : L~20%; R ~40%- pain w/L; passive SB L (seated) about 40 % w/pain; R 75%; flex ends about 10% d/t pain and imbalance; pain w/ext-all in lumbar region 50% range PT-OP-M Strength Start: 07/12/22 17:50 Freq: Status: Active Protocol: Document 07/17/22 13:49 [facility] (Rec: 07/17/22 15:06 [facility] [id number]) Shoulder Strength Shoulder Manual Muscle Testing Right Flexion 4- Good- Extension 4- Good- Abduction (C5) 4- Good- Comments no pain in trunk Left Flexion 2- Poor- Extension 2+ Poor+ Abduction (C5) 2- Poor- Comments no pain in truck w/UE motion Hip Strength Hip Manual Muscle Testing Right Flexion (L2) 4- Good- Extension (S1) 3 Fair Abduction 3+ Fair+ External Rotation 3 Fair Internal Rotation 4- Good- Left Flexion (L2) 3- Fair- Extension (S1) 2 Poor Abduction 2+ Poor+ External Rotation 3- Fair- Internal Rotation 3- Fair- Knee Strength Knee Manual Muscle Testing Right Flexion (S2) 4 Good Extension (L3) 4 Good Left Flexion (S2) 3+ Fair+ Extension (L3) 3 Fair Ankle/Foot Strength Ankle and Foot Manual Muscle Testing Right Dorsiflexion (L4) 5 Normal Left Dorsiflexion (L4) 2+ Poor+ PT-OP-Q Treatments Start: 07/12/22 17:50 Freq: Status: Active Protocol: Document 07/24/22 13:58 [facility] (Rec: 07/24/22 14:36 [facility] [id number]) Gym Equipment Shuttle Balance red clips Comments Fwd: WBOS & NBOS & staggered stance side:WBOS & NBOS Therapeutic Exercises Sidelying Exercises open book Side bilateral Reps/Minutes 10 Sitting Exercises DF Side left Reps/Minutes 10 Standing Exercises marching Side bilateral Equipment Used rail Reps/Minutes 10 Comments cues for highest range she can & posture hip abd Side bilateral Equipment Used rail Reps/Minutes 10 Comments cues for posture Manual Therapy Treatment Soft Tissue Mobilization lats Body Location L Mobilization Type Rolling,Strumming Intensity/Depth Moderate Comments w/PROM shoulder flex intercostals Body Location L ribs 4-6 Mobilization Type Rolling Intensity/Depth Moderate Joint Mobilizations ribs Body Position Sidelying Comments upglide ribs 6-7 down glide ribs 4-5 FM thoracic Comments T7-8 transverse L FM T5-7, T9-10 transverse R FM Neuro Re-Education Treatment Balance Activities balance board Details fwd/back tilts PT-OP-T Assessment and Plan Start: 07/12/22 17:50 Freq: Status: Active Protocol: Document 07/24/22 13:58 [facility] (Rec: 07/24/22 14:36 [facility] [id number]) Physical Therapy Assessment Goals activity Care Home Goal (LTG) Pt will report no longer spending most of her day in bed and is consistantly going for walks with her friend without inc pain or heavy fear of falls. LTG Duration 10/08/22 balance Short Term Goal (STG) Pt will be able to do at least 10x sit to machine clipper 30 sec to show dec fall risk and inc functional strength STG Duration 09/06/22 Pension Administrator Goal (LTG) Pt will improve DGI score to at least 19 to show dec risk for falls. LTG Duration 10/08/22 pain Short Term Goal (STG) Pt will report ovearll dec pain w/pain no greater than 4/ 10. STG Duration 09/04/22 Pension Administrator Goal (LTG) Pt will have full ROM Of spine without inc pain to allow for normal daily activities without inc pain. LTG Duration 10/08/22 Assessment Summary Assessment Pt did well with exercises today. She requires cueing throughout for full ROM and for posture. She reports no pain during exercises. She had a lotof restriction in ribcage and improved in rotation wmanual. Physical Therapy Plan Frequency and Duration Frequency of Treatment 1-2x/wk Duration of treatment (weeks) 12 Plan of Care Start Date 07/17/22 Plan of Care End Date 10/08/22 Next Visit Focus/Plan Next Note Type Treatment Note Next Visit Plan short sessions d/t insurance limits review HEP, dec pain w/manual, balance activiites
--- NOTE | 2022-08-14 14:27 | PT.OTN ---
Current Diagnoses Muscle weakness (generalized) (08/14/22) Unspecified abdominal pain (08/14/22) Difficulty in walking, not elsewhere classified (08/14/22) Other abnormalities of gait and mobility (08/14/22) Abnormal posture (08/14/22) Physical Therapy Treatment Note PT-OP-A Visit Information Start: 07/12/22 17:50 Freq: Status: Active Protocol: Document 08/14/22 13:48 [facility] (Rec: 08/14/22 14:27 [facility] [id number]) Out-Patient Physical Therapy Visit Information Visit Information Visit Type Treatment Note Visit Start Time 13:50 Visit Stop Time 14:22 Total Visit Minutes 32 Visit Number 3 Number of DIESEL MOTOR MECHANIC Visits 0 PT-OP-B Current Condition Start: 07/12/22 17:50 Freq: Status: Active Protocol: Document 07/17/22 13:49 [facility] (Rec: 07/17/22 15:06 [facility] [id number]) Current Condition History of Current Condition Current Complaints L lat ribcage pain History of Current Condition Pt reports L lat ribcage pain that has been going on for a while (a few months) but doesn 't remember what caused it. Reports she has been falling a lot lately. She trips a lot. She reports it is at least once a month and most of the time its outside. Pt walks with a cane when outside but nothing inside. She thinks that started more this winter. Pt tries to go for walks 2x/ week with a friend but somtimes not going as far partly d/t weather and partly d/t concern for falling. SHe can sometimes get up herself but sometimes can't and family or friends have to help. Pt si going through a hard time w /family money issues along w/ passing of mother in May. Dad helps wash her hair but pt brushes her hair and dresses herself. Pt reports she has been laying in bed a lot d/t it hurting a lot. 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 She had a R ant temporal lobe resection in 10/19/18. Treatment Goals Patient/Caregiver Goals improve balance and dec L side pain PT-OP-C Subjective Start: 07/12/22 17:50 Freq: Status: Active Protocol: Document 08/14/22 13:48 [facility] (Rec: 08/14/22 14:27 [facility] [id number]) OP-PT Subjective Patient Comments Patient Comments Pt reports her side is still hurting. She has been walking PT-OP-E Functional Tests Start: 07/12/22 17:50 Freq: Status: Active Protocol: Document 07/17/22 13:49 [facility] (Rec: 07/17/22 15:06 [facility] [id number]) Functional Tests 30 Second Sit to Stand Test Score 6 Dynamic Gait Index (DGI) Score 13 Five Times Sit to Stand Test Score 25 Functional Gait Assessment Score 11 PT-OP-F Manual Assessment Start: 07/12/22 17:50 Freq: Status: Active Protocol: Document 07/17/22 13:49 [facility] (Rec: 07/17/22 15:06 [facility] [id number]) Manual Assessments Soft Tissue Assessment Soft Tissue Mobility Assessment tenderness over lat ribcage PT-OP-G Mobility & Gait Start: 07/12/22 17:50 Freq: Status: Active Protocol: Document 07/17/22 13:49 [facility] (Rec: 07/19/22 07:59 [facility] [id number]) OP Gait Assessment Comments Gait Comments Pt amb w/dec stance time on L w/dec push off and requires lat lean to R to clear LLE as she has dec DF strength and hip flexor strength PT-OP-J Posture/Palpation/Skin Start: 07/12/22 17:50 Freq: Status: Active Protocol: Document 07/17/22 13:49 [facility] (Rec: 07/19/22 07:59 [facility] [id number]) Posture Evaluation Comments Posture Comments significantly inc kyphosis w/ rounded shoulders and fwd head ; pt tends to clasp hands in front of her PT-OP-K Range of Motion Start: 07/12/22 17:50 Freq: Status: Active Protocol: Document 07/17/22 13:49 [facility] (Rec: 07/17/22 15:06 [facility] [id number]) Lumbar Spine Range of Motion Lumbar Spine Active Degrees Rotation Left 20 Rotation Right 35 Lateral Flexion Left 15 Lateral Flexion Right 34 ROM Limitations Pain Comments pain more w/l rot; passively : L~20%; R ~40%- pain w/L; passive SB L (seated) about 40 % w/pain; R 75%; flex ends about 10% d/t pain and imbalance; pain w/ext-all in lumbar region 50% range PT-OP-M Strength Start: 07/12/22 17:50 Freq: Status: Active Protocol: Document 07/17/22 13:49 [facility] (Rec: 07/17/22 15:06 [facility] [id number]) Shoulder Strength Shoulder Manual Muscle Testing Right Flexion 4- Good- Extension 4- Good- Abduction (C5) 4- Good- Comments no pain in trunk Left Flexion 2- Poor- Extension 2+ Poor+ Abduction (C5) 2- Poor- Comments no pain in truck w/UE motion Hip Strength Hip Manual Muscle Testing Right Flexion (L2) 4- Good- Extension (S1) 3 Fair Abduction 3+ Fair+ External Rotation 3 Fair Internal Rotation 4- Good- Left Flexion (L2) 3- Fair- Extension (S1) 2 Poor Abduction 2+ Poor+ External Rotation 3- Fair- Internal Rotation 3- Fair- Knee Strength Knee Manual Muscle Testing Right Flexion (S2) 4 Good Extension (L3) 4 Good Left Flexion (S2) 3+ Fair+ Extension (L3) 3 Fair Ankle/Foot Strength Ankle and Foot Manual Muscle Testing Right Dorsiflexion (L4) 5 Normal Left Dorsiflexion (L4) 2+ Poor+ PT-OP-Q Treatments Start: 07/12/22 17:50 Freq: Status: Active Protocol: Document 08/14/22 13:48 [facility] (Rec: 08/14/22 14:27 [facility] [id number]) Therapeutic Exercises Sidelying Exercises open book Side bilateral Reps/Minutes 10 Sitting Exercises DF Side left Reps/Minutes 20 Standing Exercises marching Side bilateral Equipment Used rail Reps/Minutes 10 Comments cues for highest range she can & posture hip abd Side bilateral Equipment Used rail Reps/Minutes 10 Comments cues for posture Manual Therapy Treatment Soft Tissue Mobilization lats Body Location L lats and teres Mobilization Type Rolling,Strumming Intensity/Depth Moderate Comments w/PROM shoulder flex intercostals Body Location L ribs 4-7 Mobilization Type Rolling Intensity/Depth Moderate Joint Mobilizations ribs Comments med glide L sidebend FM thoracic Comments T6 transverse R FM T10 transverse R FM Neuro Re-Education Treatment Balance Activities SLS Comments 1. toe taps x10 B 8 in step 2. ball roll under LE B- rail prn hurdles Details 6 Comments fwd x6 sidestep x2 B balance board Details fwd/back tilts & lat tilts B PT-OP-R Modalities Start: 07/12/22 17:50 Freq: Status: Active Protocol: Document 08/14/22 13:48 [facility] (Rec: 08/14/22 14:27 [facility] [id number]) Hot Pack/Cold Pack Treatment Hot Pack Location L side Patient Position Sidelying Treatment Duration (minutes) 10 PT-OP-T Assessment and Plan Start: 07/12/22 17:50 Freq: Status: Active Protocol: Document 08/14/22 13:48 [facility] (Rec: 08/14/22 14:27 [facility] [id number]) Physical Therapy Assessment Goals activity Licensed Surveyor Goal (LTG) Pt will report no longer spending most of her day in bed and is consistantly going for walks with her friend without inc pain or heavy fear of falls. LTG Duration 10/08/22 balance Short Term Goal (STG) Pt will be able to do at least 10x sit to jewelry finisher 30 sec to show dec fall risk and inc functional strength STG Duration 09/06/22 Mcfp Goal (LTG) Pt will improve DGI score to at least 19 to show dec risk for falls. LTG Duration 10/08/22 pain Short Term Goal (STG) Pt will report ovearll dec pain w/pain no greater than 4/ 10. STG Duration 09/04/22 Mcfp Goal (LTG) Pt will have full ROM Of spine without inc pain to allow for normal daily activities without inc pain. LTG Duration 10/08/22 Assessment Summary Assessment Pt did require some cues w/ exercises. She did well with balance with encouragement to dec rail use. Physical Therapy Plan Frequency and Duration Frequency of Treatment 1-2x/wk Duration of treatment (weeks) 12 Plan of Care Start Date 07/17/22 Plan of Care End Date 10/08/22 Next Visit Focus/Plan Next Note Type Treatment Note Next Visit Plan short sessions d/t insurance limits review HEP, dec pain w/manual, balance activiites
--- NOTE | 2022-08-21 15:50 | PT.OTN ---
Current Diagnoses Muscle weakness (generalized) (08/21/22) Unspecified abdominal pain (08/21/22) Difficulty in walking, not elsewhere classified (08/21/22) Other abnormalities of gait and mobility (08/21/22) Abnormal posture (08/21/22) Physical Therapy Treatment Note PT-OP-A Visit Information Start: 07/12/22 17:50 Freq: Status: Active Protocol: Document 08/21/22 14:44 [facility] (Rec: 08/21/22 15:50 [facility] [id number]) Out-Patient Physical Therapy Visit Information Visit Information Visit Type Treatment Note Visit Start Time 14:37 Visit Stop Time 15:10 Total Visit Minutes 33 Visit Number 4 Number of INSPECTOR SHELLS Visits 0 PT-OP-B Current Condition Start: 07/12/22 17:50 Freq: Status: Active Protocol: Document 07/17/22 13:49 [facility] (Rec: 07/17/22 15:06 [facility] [id number]) Current Condition History of Current Condition Current Complaints L lat ribcage pain History of Current Condition Pt reports L lat ribcage pain that has been going on for a while (a few months) but doesn 't remember what caused it. Reports she has been falling a lot lately. She trips a lot. She reports it is at least once a month and most of the time its outside. Pt walks with a cane when outside but nothing inside. She thinks that started more this winter. Pt tries to go for walks 2x/ week with a friend but somtimes not going as far partly d/t weather and partly d/t concern for falling. SHe can sometimes get up herself but sometimes can't and family or friends have to help. Pt si going through a hard time w /family money issues along w/ passing of mother in May. Dad helps wash her hair but pt brushes her hair and dresses herself. Pt reports she has been laying in bed a lot d/t it hurting a lot. 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 She had a R ant temporal lobe resection in 10/19/18. Treatment Goals Patient/Caregiver Goals improve balance and dec L side pain PT-OP-C Subjective Start: 07/12/22 17:50 Freq: Status: Active Protocol: Document 08/21/22 14:44 [facility] (Rec: 08/21/22 15:50 [facility] [id number]) OP-PT Subjective Patient Comments Patient Comments Pt reports pain on/off. Has been walking tues/thurs w/ friend. Reports compliance w/ exercises PT-OP-E Functional Tests Start: 07/12/22 17:50 Freq: Status: Active Protocol: Document 07/17/22 13:49 [facility] (Rec: 07/17/22 15:06 [facility] [id number]) Functional Tests 30 Second Sit to Stand Test Score 6 Dynamic Gait Index (DGI) Score 13 Five Times Sit to Stand Test Score 25 Functional Gait Assessment Score 11 PT-OP-F Manual Assessment Start: 07/12/22 17:50 Freq: Status: Active Protocol: Document 07/17/22 13:49 [facility] (Rec: 07/17/22 15:06 [facility] [id number]) Manual Assessments Soft Tissue Assessment Soft Tissue Mobility Assessment tenderness over lat ribcage PT-OP-G Mobility & Gait Start: 07/12/22 17:50 Freq: Status: Active Protocol: Document 07/17/22 13:49 [facility] (Rec: 07/19/22 07:59 [facility] [id number]) OP Gait Assessment Comments Gait Comments Pt amb w/dec stance time on L w/dec push off and requires lat lean to R to clear LLE as she has dec DF strength and hip flexor strength PT-OP-J Posture/Palpation/Skin Start: 07/12/22 17:50 Freq: Status: Active Protocol: Document 07/17/22 13:49 [facility] (Rec: 07/19/22 07:59 [facility] [id number]) Posture Evaluation Comments Posture Comments significantly inc kyphosis w/ rounded shoulders and fwd head ; pt tends to clasp hands in front of her PT-OP-K Range of Motion Start: 07/12/22 17:50 Freq: Status: Active Protocol: Document 07/17/22 13:49 [facility] (Rec: 07/17/22 15:06 [facility] [id number]) Lumbar Spine Range of Motion Lumbar Spine Active Degrees Rotation Left 20 Rotation Right 35 Lateral Flexion Left 15 Lateral Flexion Right 34 ROM Limitations Pain Comments pain more w/l rot; passively : L~20%; R ~40%- pain w/L; passive SB L (seated) about 40 % w/pain; R 75%; flex ends about 10% d/t pain and imbalance; pain w/ext-all in lumbar region 50% range PT-OP-M Strength Start: 07/12/22 17:50 Freq: Status: Active Protocol: Document 07/17/22 13:49 [facility] (Rec: 07/17/22 15:06 [facility] [id number]) Shoulder Strength Shoulder Manual Muscle Testing Right Flexion 4- Good- Extension 4- Good- Abduction (C5) 4- Good- Comments no pain in trunk Left Flexion 2- Poor- Extension 2+ Poor+ Abduction (C5) 2- Poor- Comments no pain in truck w/UE motion Hip Strength Hip Manual Muscle Testing Right Flexion (L2) 4- Good- Extension (S1) 3 Fair Abduction 3+ Fair+ External Rotation 3 Fair Internal Rotation 4- Good- Left Flexion (L2) 3- Fair- Extension (S1) 2 Poor Abduction 2+ Poor+ External Rotation 3- Fair- Internal Rotation 3- Fair- Knee Strength Knee Manual Muscle Testing Right Flexion (S2) 4 Good Extension (L3) 4 Good Left Flexion (S2) 3+ Fair+ Extension (L3) 3 Fair Ankle/Foot Strength Ankle and Foot Manual Muscle Testing Right Dorsiflexion (L4) 5 Normal Left Dorsiflexion (L4) 2+ Poor+ PT-OP-Q Treatments Start: 07/12/22 17:50 Freq: Status: Active Protocol: Document 08/21/22 14:44 [facility] (Rec: 08/21/22 15:50 [facility] [id number]) Therapeutic Exercises Sidelying Exercises open book Side bilateral Reps/Minutes 10 Sitting Exercises stretch Sitting Exercise Name L calf Reps/Minutes 30 sec DF Side left Reps/Minutes 20 Standing Exercises marching Side bilateral Equipment Used rail Reps/Minutes 10 Comments cues for highest range she can & posture hip abd Side bilateral Equipment Used rail Reps/Minutes 10 Comments cues for posture Manual Therapy Treatment Soft Tissue Mobilization lats Body Location L lats and teres & rhomboids Mobilization Type Rolling,Strumming Intensity/Depth Moderate Body Position Sidelying Comments w/PROM shoulder flex intercostals Body Location L ribs 4-7 Mobilization Type Rolling Intensity/Depth Moderate Joint Mobilizations ribs Comments L caudal rib 6 FM thoracic Comments T7 transverse R FM Neuro Re-Education Treatment Balance Activities SLS Comments 1. toe taps x10 B 8 in step 2. ball roll under LE B- rail prn hurdles Details 6 Comments fwd x6 sidestep x2 B balance board Details fwd/back tilts & lat tilts B PT-OP-R Modalities Start: 07/12/22 17:50 Freq: Status: Active Protocol: Document 08/14/22 13:48 [facility] (Rec: 08/14/22 14:27 [facility] [id number]) Hot Pack/Cold Pack Treatment Hot Pack Location L side Patient Position Sidelying Treatment Duration (minutes) 10 PT-OP-T Assessment and Plan Start: 07/12/22 17:50 Freq: Status: Active Protocol: Document 08/21/22 14:44 [facility] (Rec: 08/21/22 15:50 [facility] [id number]) Physical Therapy Assessment Goals activity Usp Goal (LTG) Pt will report no longer spending most of her day in bed and is consistantly going for walks with her friend without inc pain or heavy fear of falls. LTG Duration 10/08/22 balance Short Term Goal (STG) Pt will be able to do at least 10x sit to rn international 30 sec to show dec fall risk and inc functional strength STG Duration 09/06/22 Usp Goal (LTG) Pt will improve DGI score to at least 19 to show dec risk for falls. LTG Duration 10/08/22 pain Short Term Goal (STG) Pt will report ovearll dec pain w/pain no greater than 4/ 10. STG Duration 09/04/22 Usp Goal (LTG) Pt will have full ROM Of spine without inc pain to allow for normal daily activities without inc pain. LTG Duration 10/08/22 Assessment Summary Assessment Pt required less cues for exercises today. She did well with balance but did use rail occ still. Improving ovearll spinal ROM. Physical Therapy Plan Frequency and Duration Frequency of Treatment 1-2x/wk Duration of treatment (weeks) 12 Plan of Care Start Date 07/17/22 Plan of Care End Date 10/08/22 Next Visit Focus/Plan Next Note Type Treatment Note Next Visit Plan short sessions d/t insurance limits work on ribcage mobility exercises, dec pain w/manual, balance activiites
--- NOTE | 2022-08-28 14:30 | PT.OTN ---
Current Diagnoses Muscle weakness (generalized) (08/28/22) Unspecified abdominal pain (08/28/22) Difficulty in walking, not elsewhere classified (08/28/22) Other abnormalities of gait and mobility (08/28/22) Abnormal posture (08/28/22) Physical Therapy Treatment Note PT-OP-A Visit Information Start: 07/12/22 17:50 Freq: Status: Active Protocol: Document 08/28/22 13:51 [facility] (Rec: 08/28/22 14:30 [facility] [id number]) Out-Patient Physical Therapy Visit Information Visit Information Visit Type Treatment Note Visit Start Time 13:52 Visit Stop Time 14:26 Total Visit Minutes 34 Visit Number 5 Number of LOBSTER CATCHER Visits 0 PT-OP-B Current Condition Start: 07/12/22 17:50 Freq: Status: Active Protocol: Document 07/17/22 13:49 [facility] (Rec: 07/17/22 15:06 [facility] [id number]) Current Condition History of Current Condition Current Complaints L lat ribcage pain History of Current Condition Pt reports L lat ribcage pain that has been going on for a while (a few months) but doesn 't remember what caused it. Reports she has been falling a lot lately. She trips a lot. She reports it is at least once a month and most of the time its outside. Pt walks with a cane when outside but nothing inside. She thinks that started more this winter. Pt tries to go for walks 2x/ week with a friend but somtimes not going as far partly d/t weather and partly d/t concern for falling. SHe can sometimes get up herself but sometimes can't and family or friends have to help. Pt si going through a hard time w /family money issues along w/ passing of mother in May. Dad helps wash her hair but pt brushes her hair and dresses herself. Pt reports she has been laying in bed a lot d/t it hurting a lot. 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 She had a R ant temporal lobe resection in 10/19/18. Treatment Goals Patient/Caregiver Goals improve balance and dec L side pain PT-OP-C Subjective Start: 07/12/22 17:50 Freq: Status: Active Protocol: Document 08/28/22 13:51 [facility] (Rec: 08/28/22 14:30 [facility] [id number]) OP-PT Subjective Patient Comments Patient Comments pt reports pain on and off. Mostly when laying in bed and at the end of her walks sometimes PT-OP-E Functional Tests Start: 07/12/22 17:50 Freq: Status: Active Protocol: Document 07/17/22 13:49 [facility] (Rec: 07/17/22 15:06 [facility] [id number]) Functional Tests 30 Second Sit to Stand Test Score 6 Dynamic Gait Index (DGI) Score 13 Five Times Sit to Stand Test Score 25 Functional Gait Assessment Score 11 PT-OP-F Manual Assessment Start: 07/12/22 17:50 Freq: Status: Active Protocol: Document 07/17/22 13:49 [facility] (Rec: 07/17/22 15:06 [facility] [id number]) Manual Assessments Soft Tissue Assessment Soft Tissue Mobility Assessment tenderness over lat ribcage PT-OP-G Mobility & Gait Start: 07/12/22 17:50 Freq: Status: Active Protocol: Document 07/17/22 13:49 [facility] (Rec: 07/19/22 07:59 [facility] [id number]) OP Gait Assessment Comments Gait Comments Pt amb w/dec stance time on L w/dec push off and requires lat lean to R to clear LLE as she has dec DF strength and hip flexor strength PT-OP-J Posture/Palpation/Skin Start: 07/12/22 17:50 Freq: Status: Active Protocol: Document 07/17/22 13:49 [facility] (Rec: 07/19/22 07:59 [facility] [id number]) Posture Evaluation Comments Posture Comments significantly inc kyphosis w/ rounded shoulders and fwd head ; pt tends to clasp hands in front of her PT-OP-K Range of Motion Start: 07/12/22 17:50 Freq: Status: Active Protocol: Document 07/17/22 13:49 [facility] (Rec: 07/17/22 15:06 [facility] [id number]) Lumbar Spine Range of Motion Lumbar Spine Active Degrees Rotation Left 20 Rotation Right 35 Lateral Flexion Left 15 Lateral Flexion Right 34 ROM Limitations Pain Comments pain more w/l rot; passively : L~20%; R ~40%- pain w/L; passive SB L (seated) about 40 % w/pain; R 75%; flex ends about 10% d/t pain and imbalance; pain w/ext-all in lumbar region 50% range PT-OP-M Strength Start: 07/12/22 17:50 Freq: Status: Active Protocol: Document 07/17/22 13:49 [facility] (Rec: 07/17/22 15:06 [facility] [id number]) Shoulder Strength Shoulder Manual Muscle Testing Right Flexion 4- Good- Extension 4- Good- Abduction (C5) 4- Good- Comments no pain in trunk Left Flexion 2- Poor- Extension 2+ Poor+ Abduction (C5) 2- Poor- Comments no pain in truck w/UE motion Hip Strength Hip Manual Muscle Testing Right Flexion (L2) 4- Good- Extension (S1) 3 Fair Abduction 3+ Fair+ External Rotation 3 Fair Internal Rotation 4- Good- Left Flexion (L2) 3- Fair- Extension (S1) 2 Poor Abduction 2+ Poor+ External Rotation 3- Fair- Internal Rotation 3- Fair- Knee Strength Knee Manual Muscle Testing Right Flexion (S2) 4 Good Extension (L3) 4 Good Left Flexion (S2) 3+ Fair+ Extension (L3) 3 Fair Ankle/Foot Strength Ankle and Foot Manual Muscle Testing Right Dorsiflexion (L4) 5 Normal Left Dorsiflexion (L4) 2+ Poor+ PT-OP-Q Treatments Start: 07/12/22 17:50 Freq: Status: Active Protocol: Document 08/28/22 13:51 [facility] (Rec: 08/28/22 14:30 [facility] [id number]) Therapeutic Exercises Sidelying Exercises open book Side bilateral Reps/Minutes 10 ea Sitting Exercises DF Side left Reps/Minutes 20 Standing Exercises paloff press Side bilateral Equipment Used lvl 1 band (1 band) Reps/Minutes 10 ea Comments max cues sidestep Side bilateral Equipment Used yellow Reps/Minutes 20ft B stretch Standing Exercise Name FUNMILAYO Side bilateral Reps/Minutes 90 sec Manual Therapy Treatment Soft Tissue Mobilization lats Body Location L lats and teres & rhomboids Mobilization Type Rolling,Strumming Intensity/Depth Moderate Body Position Sidelying Comments w/PROM shoulder flex intercostals Body Location L ribs 4-7 Mobilization Type Rolling Intensity/Depth Moderate Joint Mobilizations ribs Comments med glide L sidebend rib 9 FM; cadual rib 6 FM thoracic Comments PA T4 and 5 FM Neuro Re-Education Treatment Balance Activities SLS Comments 1. toe taps x10 B 12 in step 2. ball roll under LE B- rail prn hurdles Details 6 hurdles Comments fwd x8 sidestep x2 B PT-OP-R Modalities Start: 07/12/22 17:50 Freq: Status: Active Protocol: Document 08/14/22 13:48 [facility] (Rec: 08/14/22 14:27 [facility] [id number]) Hot Pack/Cold Pack Treatment Hot Pack Location L side Patient Position Sidelying Treatment Duration (minutes) 10 PT-OP-T Assessment and Plan Start: 07/12/22 17:50 Freq: Status: Active Protocol: Document 08/28/22 13:51 [facility] (Rec: 08/28/22 14:30 [facility] [id number]) Physical Therapy Assessment Goals activity Project Planner Goal (LTG) Pt will report no longer spending most of her day in bed and is consistantly going for walks with her friend without inc pain or heavy fear of falls. 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 LTG Duration 10/08/22 pain Short Term Goal (STG) Pt will report ovearll dec pain w/pain no greater than 4/ 10. STG Duration 09/04/22 Correction Goal (LTG) Pt will have full ROM Of spine without inc pain to allow for normal daily activities without inc pain. LTG Duration 10/08/22 Assessment Summary Assessment Pt is doing well with balance. She still has a lot of limitation w/DF and is encouraged to make sure seh is doing these exercises daily at home. She had improved flex w/less R SB and less pain after manual. Ext still uncomfortable at end of sesion but Rot ROM B better. Physical Therapy Plan Frequency and Duration Frequency of Treatment 1-2x/wk Duration of treatment (weeks) 12 Plan of Care Start Date 07/17/22 Plan of Care End Date 10/08/22 Next Visit Focus/Plan Next Note Type Treatment Note Next Visit Plan short sessions d/t insurance limits work on ribcage mobility exercises, dec pain w/manual, balance activiites
--- NOTE | 2022-09-19 12:07 | PT.OTN ---
Current Diagnoses Muscle weakness (generalized) (09/19/22) Unspecified abdominal pain (09/19/22) Difficulty in walking, not elsewhere classified (09/19/22) Other abnormalities of gait and mobility (09/19/22) Abnormal posture (09/19/22) Physical Therapy Treatment Note PT-OP-A Visit Information Start: 07/12/22 17:50 Freq: Status: Active Protocol: Document 09/19/22 11:20 [facility] (Rec: 09/19/22 12:07 [facility] [id number]) Out-Patient Physical Therapy Visit Information Visit Information Visit Type Treatment Note Visit Start Time 11:24 Visit Stop Time 11:58 Total Visit Minutes 34 Visit Number 6 Number of OUTSIDE PLANT ENGINEER Visits 0 PT-OP-B Current Condition Start: 07/12/22 17:50 Freq: Status: Active Protocol: Document 07/17/22 13:49 [facility] (Rec: 07/17/22 15:06 [facility] [id number]) Current Condition History of Current Condition Current Complaints L lat ribcage pain History of Current Condition Pt reports L lat ribcage pain that has been going on for a while (a few months) but doesn 't remember what caused it. Reports she has been falling a lot lately. She trips a lot. She reports it is at least once a month and most of the time its outside. Pt walks with a cane when outside but nothing inside. She thinks that started more this winter. Pt tries to go for walks 2x/ week with a friend but somtimes not going as far partly d/t weather and partly d/t concern for falling. SHe can sometimes get up herself but sometimes can't and family or friends have to help. Pt si going through a hard time w /family money issues along w/ passing of mother in May. Dad helps wash her hair but pt brushes her hair and dresses herself. Pt reports she has been laying in bed a lot d/t it hurting a lot. 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 She had a R ant temporal lobe resection in 10/19/18. Treatment Goals Patient/Caregiver Goals improve balance and dec L side pain PT-OP-C Subjective Start: 07/12/22 17:50 Freq: Status: Active Protocol: Document 09/19/22 11:20 [facility] (Rec: 09/19/22 12:07 [facility] [id number]) OP-PT Subjective Patient Comments Patient Comments Pt reports pain still on/off. notes mostly when bending over and lifting heavier things in room. It can be when using both hands or when just using R PT-OP-E Functional Tests Start: 07/12/22 17:50 Freq: Status: Active Protocol: Document 07/17/22 13:49 [facility] (Rec: 07/17/22 15:06 [facility] [id number]) Functional Tests 30 Second Sit to Stand Test Score 6 Dynamic Gait Index (DGI) Score 13 Five Times Sit to Stand Test Score 25 Functional Gait Assessment Score 11 PT-OP-F Manual Assessment Start: 07/12/22 17:50 Freq: Status: Active Protocol: Document 07/17/22 13:49 [facility] (Rec: 07/17/22 15:06 [facility] [id number]) Manual Assessments Soft Tissue Assessment Soft Tissue Mobility Assessment tenderness over lat ribcage PT-OP-G Mobility & Gait Start: 07/12/22 17:50 Freq: Status: Active Protocol: Document 07/17/22 13:49 [facility] (Rec: 07/19/22 07:59 [facility] [id number]) OP Gait Assessment Comments Gait Comments Pt amb w/dec stance time on L w/dec push off and requires lat lean to R to clear LLE as she has dec DF strength and hip flexor strength PT-OP-J Posture/Palpation/Skin Start: 07/12/22 17:50 Freq: Status: Active Protocol: Document 07/17/22 13:49 [facility] (Rec: 07/19/22 07:59 [facility] [id number]) Posture Evaluation Comments Posture Comments significantly inc kyphosis w/ rounded shoulders and fwd head ; pt tends to clasp hands in front of her PT-OP-K Range of Motion Start: 07/12/22 17:50 Freq: Status: Active Protocol: Document 07/17/22 13:49 [facility] (Rec: 07/17/22 15:06 [facility] [id number]) Lumbar Spine Range of Motion Lumbar Spine Active Degrees Rotation Left 20 Rotation Right 35 Lateral Flexion Left 15 Lateral Flexion Right 34 ROM Limitations Pain Comments pain more w/l rot; passively : L~20%; R ~40%- pain w/L; passive SB L (seated) about 40 % w/pain; R 75%; flex ends about 10% d/t pain and imbalance; pain w/ext-all in lumbar region 50% range PT-OP-M Strength Start: 07/12/22 17:50 Freq: Status: Active Protocol: Document 07/17/22 13:49 [facility] (Rec: 07/17/22 15:06 [facility] [id number]) Shoulder Strength Shoulder Manual Muscle Testing Right Flexion 4- Good- Extension 4- Good- Abduction (C5) 4- Good- Comments no pain in trunk Left Flexion 2- Poor- Extension 2+ Poor+ Abduction (C5) 2- Poor- Comments no pain in truck w/UE motion Hip Strength Hip Manual Muscle Testing Right Flexion (L2) 4- Good- Extension (S1) 3 Fair Abduction 3+ Fair+ External Rotation 3 Fair Internal Rotation 4- Good- Left Flexion (L2) 3- Fair- Extension (S1) 2 Poor Abduction 2+ Poor+ External Rotation 3- Fair- Internal Rotation 3- Fair- Knee Strength Knee Manual Muscle Testing Right Flexion (S2) 4 Good Extension (L3) 4 Good Left Flexion (S2) 3+ Fair+ Extension (L3) 3 Fair Ankle/Foot Strength Ankle and Foot Manual Muscle Testing Right Dorsiflexion (L4) 5 Normal Left Dorsiflexion (L4) 2+ Poor+ PT-OP-Q Treatments Start: 07/12/22 17:50 Freq: Status: Active Protocol: Document 09/19/22 11:20 [facility] (Rec: 09/19/22 12:07 [facility] [id number]) Gym Equipment Therapeutic Ball seated Ball Size/Color 65cm Body Position Sitting Reps/Duration 10 B Comments rotation w/LVL 1 band-cues for posture Therapeutic Exercises Standing Exercises reisted walk Standing Exercise Name fwd/back Side bilateral Equipment Used yellow band Reps/Minutes 20ft x2 Comments cues larger steps sidestep Side bilateral Equipment Used yellow Reps/Minutes 20ft Bx2 Manual Therapy Treatment Soft Tissue Mobilization lats Body Location L lats and teres Mobilization Type Rolling,Strumming Intensity/Depth Moderate Body Position Sidelying Comments w/PROM shoulder flex Joint Mobilizations ribs Comments med glide L rib 4-6 in seated and S/l FM caudal glide L rib 6 in s/l FM thoracic Comments transverse R T5-6 FM UPA T5 FM L Neuro Re-Education Treatment Balance Activities tandem Comments 1.stance trials B 2. fwd line walk [id number] 3. tandem walk- 1 hand on rail 2x20ft hurdles Details 6 hurdles Comments fwd x8 sidestep x2 B PT-OP-R Modalities Start: 07/12/22 17:50 Freq: Status: Active Protocol: Document 08/14/22 13:48 [facility] (Rec: 08/14/22 14:27 [facility] [id number]) Hot Pack/Cold Pack Treatment Hot Pack Location L side Patient Position Sidelying Treatment Duration (minutes) 10 PT-OP-T Assessment and Plan Start: 07/12/22 17:50 Freq: Status: Active Protocol: Document 09/19/22 11:20 [facility] (Rec: 09/19/22 12:07 [facility] [id number]) Physical Therapy Assessment Goals activity Half-Way Goal (LTG) Pt will report no longer spending most of her day in bed and is consistantly going for walks with her friend without inc pain or heavy fear of falls. LTG Duration 10/08/22 balance Short Term Goal (STG) Pt will be able to do at least 10x sit to business affairs manager 30 sec to show dec fall risk and inc functional strength STG Duration 09/06/22 Half-Way Goal (LTG) Pt will improve DGI score to at least 19 to show dec risk for falls. LTG Duration 10/08/22 pain Short Term Goal (STG) Pt will report ovearll dec pain w/pain no greater than 4/ 10. STG Duration 09/04/22 Half-Way Goal (LTG) Pt will have full ROM Of spine without inc pain to allow for normal daily activities without inc pain. LTG Duration 10/08/22 Assessment Summary Assessment Pt had pain w/rotation B and w /L SB and flex prior to manual then after treatment, did improve to min pain in ribcage w/flex and no pain w/ rotations B afer manual and imrpoved L SB. Pt encouraged to keep up her exercsies. Physical Therapy Plan Frequency and Duration Frequency of Treatment 1-2x/wk Duration of treatment (weeks) 12 Plan of Care Start Date 07/17/22 Plan of Care End Date 10/08/22 Next Visit Focus/Plan Next Note Type Treatment Note Next Visit Plan short sessions d/t insurance limits work on ribcage mobility exercises, dec pain w/manual, balance activiites & core control exercises
--- NOTE | 2022-09-28 17:15 | PT.OTN ---
Current Diagnoses Muscle weakness (generalized) (09/28/22) Unspecified abdominal pain (09/28/22) Difficulty in walking, not elsewhere classified (09/28/22) Other abnormalities of gait and mobility (09/28/22) Abnormal posture (09/28/22) Physical Therapy Treatment Note PT-OP-A Visit Information Start: 07/12/22 17:50 Freq: Status: Active Protocol: Document 09/28/22 12:27 NB (Rec: 09/28/22 17:14 [facility] [id number]) Out-Patient Physical Therapy Visit Information Visit Information Visit Type Treatment Note Visit Note short session d/t insurance restrictions Visit Start Time 12:25 Visit Stop Time 01:00 Total Visit Minutes 35 Visit Number 7 Number of COAL CHUTE WORKER Visits 1 PT-OP-B Current Condition Start: 07/12/22 17:50 Freq: Status: Active Protocol: Document 07/17/22 13:49 [facility] (Rec: 07/17/22 15:06 [facility] [id number]) Current Condition History of Current Condition Current Complaints L lat ribcage pain History of Current Condition Pt reports L lat ribcage pain that has been going on for a while (a few months) but doesn 't remember what caused it. Reports she has been falling a lot lately. She trips a lot. She reports it is at least once a month and most of the time its outside. Pt walks with a cane when outside but nothing inside. She thinks that started more this winter. Pt tries to go for walks 2x/ week with a friend but somtimes not going as far partly d/t weather and partly d/t concern for falling. SHe can sometimes get up herself but sometimes can't and family or friends have to help. Pt si going through a hard time w /family money issues along w/ passing of mother in May. Dad helps wash her hair but pt brushes her hair and dresses herself. Pt reports she has been laying in bed a lot d/t it hurting a lot. 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 She had a R ant temporal lobe resection in 10/19/18. Treatment Goals Patient/Caregiver Goals improve balance and dec L side pain PT-OP-C Subjective Start: 07/12/22 17:50 Freq: Status: Active Protocol: Document 09/28/22 12:27 NB (Rec: 09/28/22 17:14 [facility] [id number]) OP-PT Subjective Patient Comments Patient Comments Pt reports they are feeling well. PT-OP-E Functional Tests Start: 07/12/22 17:50 Freq: Status: Active Protocol: Document 07/17/22 13:49 [facility] (Rec: 07/17/22 15:06 [facility] [id number]) Functional Tests 30 Second Sit to Stand Test Score 6 Dynamic Gait Index (DGI) Score 13 Five Times Sit to Stand Test Score 25 Functional Gait Assessment Score 11 PT-OP-F Manual Assessment Start: 07/12/22 17:50 Freq: Status: Active Protocol: Document 07/17/22 13:49 [facility] (Rec: 07/17/22 15:06 [facility] [id number]) Manual Assessments Soft Tissue Assessment Soft Tissue Mobility Assessment tenderness over lat ribcage PT-OP-G Mobility & Gait Start: 07/12/22 17:50 Freq: Status: Active Protocol: Document 07/17/22 13:49 [facility] (Rec: 07/19/22 07:59 [facility] [id number]) OP Gait Assessment Comments Gait Comments Pt amb w/dec stance time on L w/dec push off and requires lat lean to R to clear LLE as she has dec DF strength and hip flexor strength PT-OP-J Posture/Palpation/Skin Start: 07/12/22 17:50 Freq: Status: Active Protocol: Document 07/17/22 13:49 [facility] (Rec: 07/19/22 07:59 [facility] [id number]) Posture Evaluation Comments Posture Comments significantly inc kyphosis w/ rounded shoulders and fwd head ; pt tends to clasp hands in front of her PT-OP-K Range of Motion Start: 07/12/22 17:50 Freq: Status: Active Protocol: Document 07/17/22 13:49 [facility] (Rec: 07/17/22 15:06 [facility] [id number]) Lumbar Spine Range of Motion Lumbar Spine Active Degrees Rotation Left 20 Rotation Right 35 Lateral Flexion Left 15 Lateral Flexion Right 34 ROM Limitations Pain Comments pain more w/l rot; passively : L~20%; R ~40%- pain w/L; passive SB L (seated) about 40 % w/pain; R 75%; flex ends about 10% d/t pain and imbalance; pain w/ext-all in lumbar region 50% range PT-OP-M Strength Start: 07/12/22 17:50 Freq: Status: Active Protocol: Document 07/17/22 13:49 [facility] (Rec: 07/17/22 15:06 [facility] [id number]) Shoulder Strength Shoulder Manual Muscle Testing Right Flexion 4- Good- Extension 4- Good- Abduction (C5) 4- Good- Comments no pain in trunk Left Flexion 2- Poor- Extension 2+ Poor+ Abduction (C5) 2- Poor- Comments no pain in truck w/UE motion Hip Strength Hip Manual Muscle Testing Right Flexion (L2) 4- Good- Extension (S1) 3 Fair Abduction 3+ Fair+ External Rotation 3 Fair Internal Rotation 4- Good- Left Flexion (L2) 3- Fair- Extension (S1) 2 Poor Abduction 2+ Poor+ External Rotation 3- Fair- Internal Rotation 3- Fair- Knee Strength Knee Manual Muscle Testing Right Flexion (S2) 4 Good Extension (L3) 4 Good Left Flexion (S2) 3+ Fair+ Extension (L3) 3 Fair Ankle/Foot Strength Ankle and Foot Manual Muscle Testing Right Dorsiflexion (L4) 5 Normal Left Dorsiflexion (L4) 2+ Poor+ PT-OP-Q Treatments Start: 07/12/22 17:50 Freq: Status: Active Protocol: Document 09/28/22 12:27 [facility] (Rec: 09/28/22 17:14 [facility] [id number]) Gym Equipment Therapeutic Ball seated Ball Size/Color 65cm Body Position Sitting Reps/Duration 10 B Comments rotation w/LVL 1 band-cues for posture Therapeutic Exercises Supine Exercises LTR Side bilateral Equipment Used 65cm>55cm physioball Reps/Minutes x10 ea Comments pain-free Sidelying Exercises open book Side bilateral Reps/Minutes 10 ea Standing Exercises reisted walk Standing Exercise Name fwd/back Side bilateral Equipment Used yellow band Reps/Minutes 20ft x2 Comments cues larger steps sidestep Side bilateral Equipment Used yellow Reps/Minutes 20ft Bx2 Manual Therapy Treatment Soft Tissue Mobilization lats Body Location L lats and teres Mobilization Type Rolling,Strumming Intensity/Depth Moderate Body Position Sidelying Comments w/PROM shoulder flex intercostals Body Location L ribs 4-7 Mobilization Type Rolling Intensity/Depth Moderate PT-OP-R Modalities Start: 07/12/22 17:50 Freq: Status: Active Protocol: Document 08/14/22 13:48 [facility] (Rec: 08/14/22 14:27 [facility] [id number]) Hot Pack/Cold Pack Treatment Hot Pack Location L side Patient Position Sidelying Treatment Duration (minutes) 10 PT-OP-T Assessment and Plan Start: 07/12/22 17:50 Freq: Status: Active Protocol: Document 09/28/22 12:27 NB (Rec: 09/28/22 17:14 [facility] [id number]) Physical Therapy Assessment Impairments Impairments Activity Tolerance,Balance, Coordination,Functional Activities,Functional Mobility ,Gait,Pain,Posture,ROM,Soft Tissue Mobility,Strength,Tone Goals activity Bark Spudder Goal (LTG) Pt will report no longer spending most of her day in bed and is consistantly going for walks with her friend without inc pain or heavy fear of falls. LTG Duration 10/08/22 balance Short Term Goal (STG) Pt will be able to do at least 10x sit to wireline supervisor 30 sec to show dec fall risk and inc functional strength STG Duration 09/06/22 Detention Goal (LTG) Pt will improve DGI score to at least 19 to show dec risk for falls. LTG Duration 10/08/22 pain Short Term Goal (STG) Pt will report ovearll dec pain w/pain no greater than 4/ 10. STG Duration 09/04/22 Bark Spudder Goal (LTG) Pt will have full ROM Of spine without inc pain to allow for normal daily activities without inc pain. LTG Duration 10/08/22 Assessment Summary Assessment Pt tolerated treatment session well without increase in pain , but did have tenderness to palpation w/ L Lattisimus and Teres. Tenderness and palpable tension improves w/ manual therapy. Pt requires cues for UT overactivation w/ sidelying open book stretch. Physical Therapy Plan Frequency and Duration Frequency of Treatment 1-2x/wk Duration of treatment (weeks) 12 Plan of Care Start Date 07/17/22 Plan of Care End Date 10/08/22 Therapeutic Interventions Therapeutic Interventions Balance Training,Coordination Training,Gait Training,Home Exercise Program,Joint Mobilizations,Manual Therapy, Neuromuscular Re-education, Orthotic/Prosthetic Management ,Patient/Caregiver Education, Self-Care/Home Management,Soft Tissue Mobilization,Taping, Therapeutic Activities, Therapeutic Exercises Modalities Cold Pack/Ice Massage,Hot Packs Next Visit Focus/Plan Next Note Type Treatment Note Next Visit Plan short sessions d/t insurance limits work on ribcage mobility exercises, dec pain w/manual, balance activiites & core control exercises
--- NOTE | 2022-10-01 14:17 | PT.OTN ---
Current Diagnoses Muscle weakness (generalized) (10/01/22) Unspecified abdominal pain (10/01/22) Difficulty in walking, not elsewhere classified (10/01/22) Other abnormalities of gait and mobility (10/01/22) Abnormal posture (10/01/22) Physical Therapy Treatment Note PT-OP-A Visit Information Start: 07/12/22 17:50 Freq: Status: Active Protocol: Document 10/01/22 13:18 NB (Rec: 10/01/22 14:16 NB [id number]) Out-Patient Physical Therapy Visit Information Visit Information Visit Type Treatment Note Visit Note short session d/t insurance restrictions Pt was present but Attended late. Visit Start Time 13:10 Visit Stop Time 13:45 Total Visit Minutes 35 Visit Number 8 Number of PRESS FEEDER Visits 2 PT-OP-B Current Condition Start: 07/12/22 17:50 Freq: Status: Active Protocol: Document 07/17/22 13:49 [facility] (Rec: 07/17/22 15:06 [facility] [id number]) Current Condition History of Current Condition Current Complaints L lat ribcage pain History of Current Condition Pt reports L lat ribcage pain that has been going on for a while (a few months) but doesn 't remember what caused it. Reports she has been falling a lot lately. She trips a lot. She reports it is at least once a month and most of the time its outside. Pt walks with a cane when outside but nothing inside. She thinks that started more this winter. Pt tries to go for walks 2x/ week with a friend but somtimes not going as far partly d/t weather and partly d/t concern for falling. SHe can sometimes get up herself but sometimes can't and family or friends have to help. Pt si going through a hard time w /family money issues along w/ passing of mother in May. Dad helps wash her hair but pt brushes her hair and dresses herself. Pt reports she has been laying in bed a lot d/t it hurting a lot. 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 She had a R ant temporal lobe resection in 10/19/18. Treatment Goals Patient/Caregiver Goals improve balance and dec L side pain PT-OP-C Subjective Start: 07/12/22 17:50 Freq: Status: Active Protocol: Document 10/01/22 13:18 [facility] (Rec: 10/01/22 14:16 [facility] [id number]) OP-PT Subjective Patient Comments Patient Comments Pt reports she felt fine after her last visit and has no pain today. I'm still waking up. She liked the hot pack last session. PT-OP-E Functional Tests Start: 07/12/22 17:50 Freq: Status: Active Protocol: Document 07/17/22 13:49 [facility] (Rec: 07/17/22 15:06 [facility] [id number]) Functional Tests 30 Second Sit to Stand Test Score 6 Dynamic Gait Index (DGI) Score 13 Five Times Sit to Stand Test Score 25 Functional Gait Assessment Score 11 PT-OP-F Manual Assessment Start: 07/12/22 17:50 Freq: Status: Active Protocol: Document 07/17/22 13:49 [facility] (Rec: 07/17/22 15:06 [facility] [id number]) Manual Assessments Soft Tissue Assessment Soft Tissue Mobility Assessment tenderness over lat ribcage PT-OP-G Mobility & Gait Start: 07/12/22 17:50 Freq: Status: Active Protocol: Document 07/17/22 13:49 [facility] (Rec: 07/19/22 07:59 [facility] [id number]) OP Gait Assessment Comments Gait Comments Pt amb w/dec stance time on L w/dec push off and requires lat lean to R to clear LLE as she has dec DF strength and hip flexor strength PT-OP-J Posture/Palpation/Skin Start: 07/12/22 17:50 Freq: Status: Active Protocol: Document 07/17/22 13:49 [facility] (Rec: 07/19/22 07:59 [facility] [id number]) Posture Evaluation Comments Posture Comments significantly inc kyphosis w/ rounded shoulders and fwd head ; pt tends to clasp hands in front of her PT-OP-K Range of Motion Start: 07/12/22 17:50 Freq: Status: Active Protocol: Document 07/17/22 13:49 [facility] (Rec: 07/17/22 15:06 [facility] [id number]) Lumbar Spine Range of Motion Lumbar Spine Active Degrees Rotation Left 20 Rotation Right 35 Lateral Flexion Left 15 Lateral Flexion Right 34 ROM Limitations Pain Comments pain more w/l rot; passively : L~20%; R ~40%- pain w/L; passive SB L (seated) about 40 % w/pain; R 75%; flex ends about 10% d/t pain and imbalance; pain w/ext-all in lumbar region 50% range PT-OP-M Strength Start: 07/12/22 17:50 Freq: Status: Active Protocol: Document 07/17/22 13:49 [facility] (Rec: 07/17/22 15:06 [facility] [id number]) Shoulder Strength Shoulder Manual Muscle Testing Right Flexion 4- Good- Extension 4- Good- Abduction (C5) 4- Good- Comments no pain in trunk Left Flexion 2- Poor- Extension 2+ Poor+ Abduction (C5) 2- Poor- Comments no pain in truck w/UE motion Hip Strength Hip Manual Muscle Testing Right Flexion (L2) 4- Good- Extension (S1) 3 Fair Abduction 3+ Fair+ External Rotation 3 Fair Internal Rotation 4- Good- Left Flexion (L2) 3- Fair- Extension (S1) 2 Poor Abduction 2+ Poor+ External Rotation 3- Fair- Internal Rotation 3- Fair- Knee Strength Knee Manual Muscle Testing Right Flexion (S2) 4 Good Extension (L3) 4 Good Left Flexion (S2) 3+ Fair+ Extension (L3) 3 Fair Ankle/Foot Strength Ankle and Foot Manual Muscle Testing Right Dorsiflexion (L4) 5 Normal Left Dorsiflexion (L4) 2+ Poor+ PT-OP-Q Treatments Start: 07/12/22 17:50 Freq: Status: Active Protocol: Document 10/01/22 13:18 [facility] (Rec: 10/01/22 14:16 [facility] [id number]) Gym Equipment Therapeutic Ball seated Ball Size/Color 65cm Body Position Sitting Reps/Duration 10 B Comments 1.rotation 2. Paloff press w/LVL 1 band-cues for posture Therapeutic Exercises Sidelying Exercises open book Side bilateral Reps/Minutes 10 ea Standing Exercises reisted walk Standing Exercise Name fwd/back Side bilateral Equipment Used yellow band Reps/Minutes 20ft x2 Comments cue larger steps sidestep Side bilateral Equipment Used yellow Reps/Minutes 20ft Bx2 Manual Therapy Treatment Soft Tissue Mobilization lats Body Location L lats and teres Mobilization Type Rolling,Strumming Intensity/Depth Moderate Body Position Sidelying Comments w/PROM shoulder flex intercostals Body Location L ribs 4-7 Mobilization Type Rolling Intensity/Depth Moderate Joint Mobilizations scapulothoracic Direction elevation/depression, rotation , retraction Grade II Body Position Sidelying Comments positive feedback response Neuro Re-Education Treatment Balance Activities tandem Comments 1. stance trials B 2. fwd line walk [id number] 3. tandem walk 2x20ft - cue larger right step PT-OP-R Modalities Start: 07/12/22 17:50 Freq: Status: Active Protocol: Document 10/01/22 13:18 [facility] (Rec: 10/01/22 14:16 [facility] [id number]) Hot Pack/Cold Pack Treatment Hot Pack Location L side Patient Position Sidelying Treatment Duration (minutes) 10 PT-OP-T Assessment and Plan Start: 07/12/22 17:50 Freq: Status: Active Protocol: Document 10/01/22 13:18 [facility] (Rec: 10/01/22 14:16 [facility] [id number]) Physical Therapy Assessment Impairments Impairments Activity Tolerance,Balance, Coordination,Functional Activities,Functional Mobility ,Gait,Pain,Posture,ROM,Soft Tissue Mobility,Strength,Tone Goals activity Check Writing Machine Operator Goal (LTG) Pt will report no longer spending most of her day in bed and is consistantly going for walks with her friend without inc pain or heavy fear of falls. LTG Duration 10/08/22 balance Short Term Goal (STG) Pt will be able to do at least 10x sit to emergency veterinarian 30 sec to show dec fall risk and inc functional strength STG Duration 09/06/22 Check Writing Machine Operator Goal (LTG) Pt will improve DGI score to at least 19 to show dec risk for falls. LTG Duration 10/08/22 pain Short Term Goal (STG) Pt will report ovearll dec pain w/pain no greater than 4/ 10. STG Duration 09/04/22 Check Writing Machine Operator Goal (LTG) Pt will have full ROM Of spine without inc pain to allow for normal daily activities without inc pain. LTG Duration 10/08/22 Assessment Summary Assessment Pt confirms 10/08/22 10:30a apt w/ PT to renew POC - updated appt list given. Pt requires cues for larger R step tandem walk and demonstrates improved self-awareness with cueing. She is challenged bilaterally w/ neutral foot position w/ resisted side steps, and requires cues for maintaining hip width steps with resisted forward and backward walking. She continues to have pinpoint tenderness to palpation w/ L Lattisimus and Teres but has improved tolerance to manual therapy from last session 09/28. Physical Therapy Plan Frequency and Duration Frequency of Treatment 1-2x/wk Duration of treatment (weeks) 12 Plan of Care Start Date 07/17/22 Plan of Care End Date 10/08/22 Therapeutic Interventions Therapeutic Interventions Balance Training,Coordination Training,Gait Training,Home Exercise Program,Joint Mobilizations,Manual Therapy, Neuromuscular Re-education, Orthotic/Prosthetic Management ,Patient/Caregiver Education, Self-Care/Home Management,Soft Tissue Mobilization,Taping, Therapeutic Activities, Therapeutic Exercises Modalities Cold Pack/Ice Massage,Hot Packs Next Visit Focus/Plan Next Note Type Treatment Note Next Visit Plan short sessions d/t insurance limits work on ribcage mobility exercises, dec pain w/manual, balance activiites & core control exercises
--- NOTE | 2022-10-08 11:18 | PT.OTN ---
Current Diagnoses Muscle weakness (generalized) (10/08/22) Unspecified abdominal pain (10/08/22) Difficulty in walking, not elsewhere classified (10/08/22) Other abnormalities of gait and mobility (10/08/22) Abnormal posture (10/08/22) Physical Therapy Treatment Note PT-OP-A Visit Information Start: 07/12/22 17:50 Freq: Status: Active Protocol: Document 10/08/22 10:36 [facility] (Rec: 10/08/22 11:17 [facility] [id number]) Out-Patient Physical Therapy Visit Information Visit Information Visit Type Progress Note Visit Note short session d/t insurance restrictions Visit Start Time 10:36 Visit Stop Time 11:11 Total Visit Minutes 35 Visit Number 9 Number of LEARNING SUPPORT SPECIALIST Visits 0 PT-OP-B Current Condition Start: 07/12/22 17:50 Freq: Status: Active Protocol: Document 07/17/22 13:49 [facility] (Rec: 07/17/22 15:06 [facility] [id number]) Current Condition History of Current Condition Current Complaints L lat ribcage pain History of Current Condition Pt reports L lat ribcage pain that has been going on for a while (a few months) but doesn 't remember what caused it. Reports she has been falling a lot lately. She trips a lot. She reports it is at least once a month and most of the time its outside. Pt walks with a cane when outside but nothing inside. She thinks that started more this winter. Pt tries to go for walks 2x/ week with a friend but somtimes not going as far partly d/t weather and partly d/t concern for falling. SHe can sometimes get up herself but sometimes can't and family or friends have to help. Pt si going through a hard time w /family money issues along w/ passing of mother in May. Dad helps wash her hair but pt brushes her hair and dresses herself. Pt reports she has been laying in bed a lot d/t it hurting a lot. 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 She had a R ant temporal lobe resection in 10/19/18. Treatment Goals Patient/Caregiver Goals improve balance and dec L side pain PT-OP-C Subjective Start: 07/12/22 17:50 Freq: Status: Active Protocol: Document 10/08/22 10:36 [facility] (Rec: 10/08/22 11:17 [facility] [id number]) OP-PT Subjective Patient Comments Patient Comments Pt reports pain off/on. Notes pain when laying on L side sometimes, or when walking and when friend tickles her. She has told her friend this hurts . PT-OP-E Functional Tests Start: 07/12/22 17:50 Freq: Status: Active Protocol: Document 10/08/22 10:36 [facility] (Rec: 10/08/22 11:17 [facility] [id number]) Functional Tests 30 Second Sit to Stand Test Score 9 Dynamic Gait Index (DGI) Score 19 Five Times Sit to Stand Test Score 14 sec Functional Gait Assessment Score 14 PT-OP-F Manual Assessment Start: 07/12/22 17:50 Freq: Status: Active Protocol: Document 07/17/22 13:49 [facility] (Rec: 07/17/22 15:06 [facility] [id number]) Manual Assessments Soft Tissue Assessment Soft Tissue Mobility Assessment tenderness over lat ribcage PT-OP-G Mobility & Gait Start: 07/12/22 17:50 Freq: Status: Active Protocol: Document 07/17/22 13:49 [facility] (Rec: 07/19/22 07:59 [facility] [id number]) OP Gait Assessment Comments Gait Comments Pt amb w/dec stance time on L w/dec push off and requires lat lean to R to clear LLE as she has dec DF strength and hip flexor strength PT-OP-J Posture/Palpation/Skin Start: 07/12/22 17:50 Freq: Status: Active Protocol: Document 07/17/22 13:49 [facility] (Rec: 07/19/22 07:59 [facility] [id number]) Posture Evaluation Comments Posture Comments significantly inc kyphosis w/ rounded shoulders and fwd head ; pt tends to clasp hands in front of her PT-OP-K Range of Motion Start: 07/12/22 17:50 Freq: Status: Active Protocol: Document 07/17/22 13:49 [facility] (Rec: 07/17/22 15:06 [facility] [id number]) Lumbar Spine Range of Motion Lumbar Spine Active Degrees Rotation Left 20 Rotation Right 35 Lateral Flexion Left 15 Lateral Flexion Right 34 ROM Limitations Pain Comments pain more w/l rot; passively : L~20%; R ~40%- pain w/L; passive SB L (seated) about 40 % w/pain; R 75%; flex ends about 10% d/t pain and imbalance; pain w/ext-all in lumbar region 50% range PT-OP-M Strength Start: 07/12/22 17:50 Freq: Status: Active Protocol: Document 07/17/22 13:49 [facility] (Rec: 07/17/22 15:06 [facility] [id number]) Shoulder Strength Shoulder Manual Muscle Testing Right Flexion 4- Good- Extension 4- Good- Abduction (C5) 4- Good- Comments no pain in trunk Left Flexion 2- Poor- Extension 2+ Poor+ Abduction (C5) 2- Poor- Comments no pain in truck w/UE motion Hip Strength Hip Manual Muscle Testing Right Flexion (L2) 4- Good- Extension (S1) 3 Fair Abduction 3+ Fair+ External Rotation 3 Fair Internal Rotation 4- Good- Left Flexion (L2) 3- Fair- Extension (S1) 2 Poor Abduction 2+ Poor+ External Rotation 3- Fair- Internal Rotation 3- Fair- Knee Strength Knee Manual Muscle Testing Right Flexion (S2) 4 Good Extension (L3) 4 Good Left Flexion (S2) 3+ Fair+ Extension (L3) 3 Fair Ankle/Foot Strength Ankle and Foot Manual Muscle Testing Right Dorsiflexion (L4) 5 Normal Left Dorsiflexion (L4) 2+ Poor+ PT-OP-Q Treatments Start: 07/12/22 17:50 Freq: Status: Active Protocol: Document 10/08/22 10:36 [facility] (Rec: 10/08/22 11:17 [facility] [id number]) Manual Therapy Treatment Soft Tissue Mobilization lats Body Location L lats and teres Mobilization Type Rolling,Strumming Intensity/Depth Moderate Body Position Sidelying Comments w/PROM shoulder flex intercostals Body Location L ribs 4-7 Mobilization Type Rolling Intensity/Depth Moderate Joint Mobilizations ribs Comments general L dep w/scap post elevation FM PT-OP-R Modalities Start: 07/12/22 17:50 Freq: Status: Active Protocol: Document 10/01/22 13:18 [facility] (Rec: 10/01/22 14:16 [facility] [id number]) Hot Pack/Cold Pack Treatment Hot Pack Location L side Patient Position Sidelying Treatment Duration (minutes) 10 PT-OP-T Assessment and Plan Start: 07/12/22 17:50 Freq: Status: Active Protocol: Document 10/08/22 10:36 [facility] (Rec: 10/08/22 11:17 [facility] [id number]) Physical Therapy Assessment Goals activity [facility] Goal (LTG) Pt will report no longer spending most of her day in bed and is consistantly going for walks with her friend without inc pain or heavy fear of falls. 4/3- pt reprots still has some fear of falls w/walks and sometimes pain; inc time spent upright LTG Duration 12/10 balance Short Term Goal (STG) Pt will be able to do at least 10x sit to adjunct spanish instructor 30 sec to show dec fall risk and inc functional strength 43-improved STG Duration 11/20/22 Automotive Machinist Apprentice Goal (LTG) Pt will improve DGI score to at least 19 to show dec risk for falls. 10/087-[id number]-[id number] goal to FGA improve to at least 18/30 to show improved balance LTG Duration 12/31 pain Short Term Goal (STG) Pt will report ovearll dec pain w/pain no greater than 4/ 10. 4/3-improved to 5/10 STG Duration 11/08/22 [facility] Goal (LTG) Pt will have full ROM Of spine without inc pain to allow for normal daily activities without inc pain. 4/3-still limited but improved overall-pain noted w/L rotation only today; B rotations still limited to about 40% LTG Duration 01/01 Assessment Summary Assessment Pt is doing better w/ROM and is reporting less pain w/ROM now. She improves ROM w/manual and is encouarged to work on L rotaion in sitting at home. she would benefit from cont PT to imparove balance and functional mobiltiy along w/ dec pain. Physical Therapy Plan Frequency and Duration Frequency of Treatment 1x/wk Duration of treatment (weeks) 12 Plan of Care Start Date 10/08/22 Plan of Care End Date 12/31/22 Therapeutic Interventions Therapeutic Interventions Balance Training,Coordination Training,Gait Training,Home Exercise Program,Joint Mobilizations,Manual Therapy, Neuromuscular Re-education, Orthotic/Prosthetic Management ,Patient/Caregiver Education, Self-Care/Home Management,Soft Tissue Mobilization,Taping, Therapeutic Activities, Therapeutic Exercises Modalities Cold Pack/Ice Massage,Hot Packs Next Visit Focus/Plan Next Note Type Treatment Note Next Visit Plan short sessions d/t insurance limits work on ribcage mobility exercises, dec pain w/manual, balance activiites & core control exercises
--- NOTE | 2022-10-08 11:18 | PT.OPPOC ---
Physical, Occupational & Speech Therapy At [facility] Current Diagnoses Muscle weakness (generalized) (10/08/22) Unspecified abdominal pain (10/08/22) Difficulty in walking, not elsewhere classified (10/08/22) Other abnormalities of gait and mobility (10/08/22) Abnormal posture (10/08/22) Visit Care Team Role Provider Type Carson Perez DO Attending Provider Physician Family Provider Primary Care Provider Referring Provider Specialty: [facility] Practice Address: [address] [place] [address], [facility] Email: [email or web address] Of Care PT-OP-T Assessment and Plan Start: 07/12/22 17:50 Freq: Status: Active Protocol: Document 10/08/22 10:36 [facility] (Rec: 10/08/22 11:17 [facility] [id number]) Physical Therapy Assessment Goals activity [facility] Goal (LTG) Pt will report no longer spending most of her day in bed and is consistantly going for walks with her friend without inc pain or heavy fear of falls. 4/3- pt reprots still has some fear of falls w/walks and sometimes pain; inc time spent upright LTG Duration 12/10 balance Short Term Goal (STG) Pt will be able to do at least 10x sit to line patrolman 30 sec to show dec fall risk and inc functional strength 43-improved STG Duration 11/20/22 [facility] Goal (LTG) Pt will improve DGI score to at least 19 to show dec risk for falls. 4/6-zlcrjfsi-arofeyr goal to FGA improve to at least 18/30 to show improved balance LTG Duration 12/31 pain Short Term Goal (STG) Pt will report ovearll dec pain w/pain no greater than . 4/3-improved to 11/14 STG Duration 11/08/22 Milk Treater Goal (LTG) Pt will have full ROM Of spine without inc pain to allow for normal daily activities without inc pain. 4/3-still limited but improved overall-pain noted w/L rotation only today; B rotations still limited to about 40% LTG Duration 01/01 Assessment Summary Assessment Pt is doing better w/ROM and is reporting less pain w/ROM now. She improves ROM w/manual and is encouarged to work on L rotaion in sitting at home. she would benefit from cont PT to imparove balance and functional mobiltiy along w/ dec pain. Physical Therapy Plan Frequency and Duration Frequency of Treatment 1x/wk Duration of treatment (weeks) 12 Plan of Care Start Date 10/08/22 Plan of Care End Date 12/31/22 Therapeutic Interventions Therapeutic Interventions Balance Training,Coordination Training,Gait Training,Home Exercise Program,Joint Mobilizations,Manual Therapy, Neuromuscular Re-education, Orthotic/Prosthetic Management ,Patient/Caregiver Education, Self-Care/Home Management,Soft Tissue Mobilization,Taping, Therapeutic Activities, Therapeutic Exercises Modalities Cold Pack/Ice Massage,Hot Packs Next Visit Focus/Plan Next Note Type Treatment Note Next Visit Plan short sessions d/t insurance limits work on ribcage mobility exercises, dec pain w/manual, balance activiites & core control exercises Plan of Care Dates Plan of Care Start Date 10/08/22 Plan of Care End Date 12/31/22 Electronically Signed by: Lilibeth Schroeder, PT 10/08/22 7400 If you are in agreement with this Plan of Care, please return a signed and dated copy. I have reviewed this Plan of Care and certify that the skilled therapy services above are required to meet the patient?s needs. Physician Signature Date Printed Name and Credentials Clinical Instructor Signature Printed Name and Credentials
--- NOTE | 2022-10-16 13:45 | PT.OTN ---
Current Diagnoses Muscle weakness (generalized) (10/16/22) Unspecified abdominal pain (10/16/22) Difficulty in walking, not elsewhere classified (10/16/22) Other abnormalities of gait and mobility (10/16/22) Abnormal posture (10/16/22) Physical Therapy Treatment Note PT-OP-A Visit Information Start: 07/12/22 17:50 Freq: Status: Active Protocol: Document 10/08/22 10:36 [facility] (Rec: 10/08/22 11:17 [facility] [id number]) Out-Patient Physical Therapy Visit Information Visit Information Visit Type Progress Note Visit Note short session d/t insurance restrictions Visit Start Time 10:36 Visit Stop Time 11:11 Total Visit Minutes 35 Visit Number 9 Number of OUTREACH LIBRARIAN Visits 0 PT-OP-B Current Condition Start: 07/12/22 17:50 Freq: Status: Active Protocol: Document 07/17/22 13:49 [facility] (Rec: 07/17/22 15:06 [facility] [id number]) Current Condition History of Current Condition Current Complaints L lat ribcage pain History of Current Condition Pt reports L lat ribcage pain that has been going on for a while (a few months) but doesn 't remember what caused it. Reports she has been falling a lot lately. She trips a lot. She reports it is at least once a month and most of the time its outside. Pt walks with a cane when outside but nothing inside. She thinks that started more this winter. Pt tries to go for walks 2x/ week with a friend but somtimes not going as far partly d/t weather and partly d/t concern for falling. SHe can sometimes get up herself but sometimes can't and family or friends have to help. Pt si going through a hard time w /family money issues along w/ passing of mother in May. Dad helps wash her hair but pt brushes her hair and dresses herself. Pt reports she has been laying in bed a lot d/t it hurting a lot. 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 She had a R ant temporal lobe resection in 10/19/18. Treatment Goals Patient/Caregiver Goals improve balance and dec L side pain PT-OP-C Subjective Start: 07/12/22 17:50 Freq: Status: Active Protocol: Document 10/16/22 13:09 [facility] (Rec: 10/16/22 13:44 [facility] [id number]) OP-PT Subjective Patient Comments Patient Comments Mona reports no new complaints. She does not have pain right now. PT-OP-E Functional Tests Start: 07/12/22 17:50 Freq: Status: Active Protocol: Document 10/08/22 10:36 [facility] (Rec: 10/08/22 11:17 [facility] [id number]) Functional Tests 30 Second Sit to Stand Test Score 9 Dynamic Gait Index (DGI) Score 19 Five Times Sit to Stand Test Score 14 sec Functional Gait Assessment Score 14 PT-OP-F Manual Assessment Start: 07/12/22 17:50 Freq: Status: Active Protocol: Document 07/17/22 13:49 [facility] (Rec: 07/17/22 15:06 [facility] [id number]) Manual Assessments Soft Tissue Assessment Soft Tissue Mobility Assessment tenderness over lat ribcage PT-OP-G Mobility & Gait Start: 07/12/22 17:50 Freq: Status: Active Protocol: Document 07/17/22 13:49 [facility] (Rec: 07/19/22 07:59 [facility] [id number]) OP Gait Assessment Comments Gait Comments Pt amb w/dec stance time on L w/dec push off and requires lat lean to R to clear LLE as she has dec DF strength and hip flexor strength PT-OP-J Posture/Palpation/Skin Start: 07/12/22 17:50 Freq: Status: Active Protocol: Document 07/17/22 13:49 [facility] (Rec: 07/19/22 07:59 [facility] [id number]) Posture Evaluation Comments Posture Comments significantly inc kyphosis w/ rounded shoulders and fwd head ; pt tends to clasp hands in front of her PT-OP-K Range of Motion Start: 07/12/22 17:50 Freq: Status: Active Protocol: Document 07/17/22 13:49 [facility] (Rec: 07/17/22 15:06 [facility] [id number]) Lumbar Spine Range of Motion Lumbar Spine Active Degrees Rotation Left 20 Rotation Right 35 Lateral Flexion Left 15 Lateral Flexion Right 34 ROM Limitations Pain Comments pain more w/l rot; passively : L~20%; R ~40%- pain w/L; passive SB L (seated) about 40 % w/pain; R 75%; flex ends about 10% d/t pain and imbalance; pain w/ext-all in lumbar region 50% range PT-OP-M Strength Start: 07/12/22 17:50 Freq: Status: Active Protocol: Document 07/17/22 13:49 [facility] (Rec: 07/17/22 15:06 [facility] [id number]) Shoulder Strength Shoulder Manual Muscle Testing Right Flexion 4- Good- Extension 4- Good- Abduction (C5) 4- Good- Comments no pain in trunk Left Flexion 2- Poor- Extension 2+ Poor+ Abduction (C5) 2- Poor- Comments no pain in truck w/UE motion Hip Strength Hip Manual Muscle Testing Right Flexion (L2) 4- Good- Extension (S1) 3 Fair Abduction 3+ Fair+ External Rotation 3 Fair Internal Rotation 4- Good- Left Flexion (L2) 3- Fair- Extension (S1) 2 Poor Abduction 2+ Poor+ External Rotation 3- Fair- Internal Rotation 3- Fair- Knee Strength Knee Manual Muscle Testing Right Flexion (S2) 4 Good Extension (L3) 4 Good Left Flexion (S2) 3+ Fair+ Extension (L3) 3 Fair Ankle/Foot Strength Ankle and Foot Manual Muscle Testing Right Dorsiflexion (L4) 5 Normal Left Dorsiflexion (L4) 2+ Poor+ PT-OP-Q Treatments Start: 07/12/22 17:50 Freq: Status: Active Protocol: Document 10/16/22 13:09 [facility] (Rec: 10/16/22 13:44 [facility] [id number]) Gym Equipment Therapeutic Ball seated Exercise Details Lvl 1 Tb (peaStyleSaint) Ball Size/Color 65cm Body Position Sitting Reps/Duration 10 B Comments 1. rotation 2. Paloff press - cues for posture 3. resisted rose extension Therapeutic Exercises Supine Exercises LTR Side bilateral Equipment Used 55cm physioball Reps/Minutes x10 ea Comments pain-free Sidelying Exercises open book Reps/Minutes 10 ea Comments R sidelying, after manual Manual Therapy Treatment Soft Tissue Mobilization lats Body Location L lats and teres Mobilization Type Rolling,Strumming Intensity/Depth Moderate Body Position Sidelying Comments w/PROM shoulder flex intercostals Body Location L ribs 4-7 Mobilization Type Rolling Intensity/Depth Moderate Neuro Re-Education Treatment Balance Activities tandem Comments 1. stance trials B - not done today 2. fwd line walk 4x10 ft, bwd 2 x 10 ft - cue larger step R extension 3. tandem walk 2x20 ft - cue larger right step hurdles Details 6 hurdles Comments fwd x4 cues for controlled eccentric on R. PT-OP-R Modalities Start: 07/12/22 17:50 Freq: Status: Active Protocol: Document 10/01/22 13:18 [facility] (Rec: 10/01/22 14:16 [facility] [id number]) Hot Pack/Cold Pack Treatment Hot Pack Location L side Patient Position Sidelying Treatment Duration (minutes) 10 PT-OP-T Assessment and Plan Start: 07/12/22 17:50 Freq: Status: Active Protocol: Document 10/16/22 13:09 [facility] (Rec: 10/16/22 13:44 [facility] [id number]) Physical Therapy Assessment Impairments Impairments Activity Tolerance,Balance, Coordination,Functional Activities,Functional Mobility ,Gait,Pain,Posture,ROM,Soft Tissue Mobility,Strength,Tone Goals activity [employer] Goal (LTG) Pt will report no longer spending most of her day in bed and is consistantly going for walks with her friend without inc pain or heavy fear of falls. 4/3- pt reprots still has some fear of falls w/walks and sometimes pain; inc time spent upright LTG Duration 12/10 balance Short Term Goal (STG) Pt will be able to do at least 10x sit to public relations sales marketing 30 sec to show dec fall risk and inc functional strength 4/3-improved STG Duration 11/20/22 [facility] Goal (LTG) Pt will improve DGI score to at least 19 to show dec risk for falls. 3-[id number]-xoduynh goal to FGA improve to at least 18/30 to show improved balance LTG Duration 12/31 pain Short Term Goal (STG) Pt will report ovearll dec pain w/pain no greater than . 3-improved to 11/14 STG Duration 11/08/22 [facility] Goal (LTG) Pt will have full ROM Of spine without inc pain to allow for normal daily activities without inc pain. 4/3-still limited but improved overall-pain noted w/L rotation only today; B rotations still limited to about 40% LTG Duration 01/01 Assessment Summary Assessment Mona is challenged w/ full shoulder extension w/ seated resisted shoulder extension lyndsay on physioball. Pt requries cues for controlled eccentric on RLE w/ fwd over hurdles and demonstrates improved control and softer step. She requires cues for larger step w/ R extension with backwards walking. Mona tolerates today's session without increase in baseline symptoms except during manual with reported pinpoint pain to L lattisimus dorsus, which improves w/ manual. Physical Therapy Plan Frequency and Duration Frequency of Treatment 1x/wk Duration of treatment (weeks) 12 Plan of Care Start Date 10/08/22 Plan of Care End Date 12/31/22 Therapeutic Interventions Therapeutic Interventions Balance Training,Coordination Training,Gait Training,Home Exercise Program,Joint Mobilizations,Manual Therapy, Neuromuscular Re-education, Orthotic/Prosthetic Management ,Patient/Caregiver Education, Self-Care/Home Management,Soft Tissue Mobilization,Taping, Therapeutic Activities, Therapeutic Exercises Modalities Cold Pack/Ice Massage,Hot Packs Next Visit Focus/Plan Next Note Type Treatment Note Next Visit Plan short sessions d/t insurance limits work on ribcage mobility exercises, dec pain w/manual, balance activiites & core control exercises
--- NOTE | 2022-10-25 17:48 | PT.OTN ---
Current Diagnoses Muscle weakness (generalized) (10/25/22) Unspecified abdominal pain (10/25/22) Difficulty in walking, not elsewhere classified (10/25/22) Other abnormalities of gait and mobility (10/25/22) Abnormal posture (10/25/22) Physical Therapy Treatment Note PT-OP-A Visit Information Start: 07/12/22 17:50 Freq: Status: Active Protocol: Document 10/25/22 16:56 [facility] (Rec: 10/25/22 17:48 [facility] [id number]) Out-Patient Physical Therapy Visit Information Visit Information Visit Type Treatment Note Visit Start Time 16:54 Visit Stop Time 17:27 Total Visit Minutes 33 Visit Number 10 Number of AUTOMOBILE SALES REPRESENTATIVE Visits 0 PT-OP-B Current Condition Start: 07/12/22 17:50 Freq: Status: Active Protocol: Document 07/17/22 13:49 [facility] (Rec: 07/17/22 15:06 [facility] [id number]) Current Condition History of Current Condition Current Complaints L lat ribcage pain History of Current Condition Pt reports L lat ribcage pain that has been going on for a while (a few months) but doesn 't remember what caused it. Reports she has been falling a lot lately. She trips a lot. She reports it is at least once a month and most of the time its outside. Pt walks with a cane when outside but nothing inside. She thinks that started more this winter. Pt tries to go for walks 2x/ week with a friend but somtimes not going as far partly d/t weather and partly d/t concern for falling. SHe can sometimes get up herself but sometimes can't and family or friends have to help. Pt si going through a hard time w /family money issues along w/ passing of mother in May. Dad helps wash her hair but pt brushes her hair and dresses herself. Pt reports she has been laying in bed a lot d/t it hurting a lot. 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 She had a R ant temporal lobe resection in 10/19/18. Treatment Goals Patient/Caregiver Goals improve balance and dec L side pain PT-OP-C Subjective Start: 07/12/22 17:50 Freq: Status: Active Protocol: Document 10/25/22 16:56 [facility] (Rec: 10/25/22 17:48 [facility] [id number]) OP-PT Subjective Patient Comments Patient Comments Pt reports pain in TL junction area sometimes w/sitting and laying and pain in L ribs when she lays for a while in bed on phone PT-OP-E Functional Tests Start: 07/12/22 17:50 Freq: Status: Active Protocol: Document 10/08/22 10:36 [facility] (Rec: 10/08/22 11:17 [facility] [id number]) Functional Tests 30 Second Sit to Stand Test Score 9 Dynamic Gait Index (DGI) Score 19 Five Times Sit to Stand Test Score 14 sec Functional Gait Assessment Score 14 PT-OP-F Manual Assessment Start: 07/12/22 17:50 Freq: Status: Active Protocol: Document 07/17/22 13:49 [facility] (Rec: 07/17/22 15:06 [facility] [id number]) Manual Assessments Soft Tissue Assessment Soft Tissue Mobility Assessment tenderness over lat ribcage PT-OP-G Mobility & Gait Start: 07/12/22 17:50 Freq: Status: Active Protocol: Document 07/17/22 13:49 [facility] (Rec: 07/19/22 07:59 [facility] [id number]) OP Gait Assessment Comments Gait Comments Pt amb w/dec stance time on L w/dec push off and requires lat lean to R to clear LLE as she has dec DF strength and hip flexor strength PT-OP-J Posture/Palpation/Skin Start: 07/12/22 17:50 Freq: Status: Active Protocol: Document 07/17/22 13:49 [facility] (Rec: 07/19/22 07:59 [facility] [id number]) Posture Evaluation Comments Posture Comments significantly inc kyphosis w/ rounded shoulders and fwd head ; pt tends to clasp hands in front of her PT-OP-K Range of Motion Start: 07/12/22 17:50 Freq: Status: Active Protocol: Document 07/17/22 13:49 [facility] (Rec: 07/17/22 15:06 [facility] [id number]) Lumbar Spine Range of Motion Lumbar Spine Active Degrees Rotation Left 20 Rotation Right 35 Lateral Flexion Left 15 Lateral Flexion Right 34 ROM Limitations Pain Comments pain more w/l rot; passively : L~20%; R ~40%- pain w/L; passive SB L (seated) about 40 % w/pain; R 75%; flex ends about 10% d/t pain and imbalance; pain w/ext-all in lumbar region 50% range PT-OP-M Strength Start: 07/12/22 17:50 Freq: Status: Active Protocol: Document 07/17/22 13:49 [facility] (Rec: 07/17/22 15:06 [facility] [id number]) Shoulder Strength Shoulder Manual Muscle Testing Right Flexion 4- Good- Extension 4- Good- Abduction (C5) 4- Good- Comments no pain in trunk Left Flexion 2- Poor- Extension 2+ Poor+ Abduction (C5) 2- Poor- Comments no pain in truck w/UE motion Hip Strength Hip Manual Muscle Testing Right Flexion (L2) 4- Good- Extension (S1) 3 Fair Abduction 3+ Fair+ External Rotation 3 Fair Internal Rotation 4- Good- Left Flexion (L2) 3- Fair- Extension (S1) 2 Poor Abduction 2+ Poor+ External Rotation 3- Fair- Internal Rotation 3- Fair- Knee Strength Knee Manual Muscle Testing Right Flexion (S2) 4 Good Extension (L3) 4 Good Left Flexion (S2) 3+ Fair+ Extension (L3) 3 Fair Ankle/Foot Strength Ankle and Foot Manual Muscle Testing Right Dorsiflexion (L4) 5 Normal Left Dorsiflexion (L4) 2+ Poor+ PT-OP-Q Treatments Start: 07/12/22 17:50 Freq: Status: Active Protocol: Document 10/25/22 16:56 [facility] (Rec: 10/25/22 17:48 [facility] [id number]) Therapeutic Exercises Sidelying Exercises open book Reps/Minutes 10 Comments L Sitting Exercises posture Sitting Exercise Name sitting posture w/cues to hold 10 sec x5 progressed>rhythmic stabilization Standing Exercises row Side bilateral Equipment Used peach band Reps/Minutes 15 Comments cues scap retraction & posture Manual Therapy Treatment Soft Tissue Mobilization lats Body Location L lats and UT & LS Mobilization Type Rolling,Strumming Intensity/Depth Moderate Body Position Sidelying Comments w/PROM scap dep/elevation Joint Mobilizations ribs Comments general L dep w/scap post elevation FM Self-Care/Home Management Treatment Education Other Education 7 min: s/l prop w/pillwo btwn knees, under L arm, posiitoning under head pillow, and towel under side; edu of seated posture edu to work on this at home; edu to not lay in bed extended time when not sleeping but to get up intermittently to stretch out PT-OP-R Modalities Start: 07/12/22 17:50 Freq: Status: Active Protocol: Document 10/01/22 13:18 [facility] (Rec: 10/01/22 14:16 [facility] [id number]) Hot Pack/Cold Pack Treatment Hot Pack Location L side Patient Position Sidelying Treatment Duration (minutes) 10 PT-OP-T Assessment and Plan Start: 07/12/22 17:50 Freq: Status: Active Protocol: Document 10/25/22 16:56 [facility] (Rec: 10/25/22 17:48 [facility] [id number]) Physical Therapy Assessment Goals activity Gear Cutting Machine Set Up Operator Goal (LTG) Pt will report no longer spending most of her day in bed and is consistantly going for walks with her friend without inc pain or heavy fear of falls. 4/3- pt reprots still has some fear of falls w/walks and sometimes pain; inc time spent upright LTG Duration 12/10 balance Short Term Goal (STG) Pt will be able to do at least 10x sit to building wrecker 30 sec to show dec fall risk and inc functional strength 4/3-improved STG Duration 11/20/22 Detention Goal (LTG) Pt will improve DGI score to at least 19 to show dec risk for falls. 4/1-boiurmzw-jeouftm goal to FGA improve to at least 18/30 to show improved balance LTG Duration 12/31 pain Short Term Goal (STG) Pt will report ovearll dec pain w/pain no greater than / 10. 4/3-improved to 5/10 STG Duration 11/08/22 Detention Goal (LTG) Pt will have full ROM Of spine without inc pain to allow for normal daily activities without inc pain. 4/3-still limited but improved overall-pain noted w/L rotation only today; B rotations still limited to about 40% LTG Duration 01/01 Assessment Summary Assessment pt had irmpoved L scap depression and L rotation w/ manual. She had not pain in L lat ribs w/ROM testing today but does still have limits in all directions. given edu for posture & sleep position Physical Therapy Plan Frequency and Duration Frequency of Treatment 1x/wk Duration of treatment (weeks) 12 Plan of Care Start Date 10/08/22 Plan of Care End Date 12/31/22 Next Visit Focus/Plan Next Note Type Treatment Note Next Visit Plan short sessions d/t insurance limits work on ribcage mobility exercises, dec pain w/manual, balance activiites & core control exercises
--- NOTE | 2022-11-08 13:32 | PT.OTN ---
Current Diagnoses Muscle weakness (generalized) (11/08/22) Unspecified abdominal pain (11/08/22) Difficulty in walking, not elsewhere classified (11/08/22) Other abnormalities of gait and mobility (11/08/22) Abnormal posture (11/08/22) Physical Therapy Treatment Note PT-OP-A Visit Information Start: 07/12/22 17:50 Freq: Status: Active Protocol: Document 11/08/22 12:56 [facility] (Rec: 11/08/22 13:32 [facility] [id number]) Out-Patient Physical Therapy Visit Information Visit Information Visit Type Treatment Note Visit Start Time 12:51 Visit Stop Time 13:40 Total Visit Minutes 49 Visit Number 11 Number of RECEP Visits 0 PT-OP-B Current Condition Start: 07/12/22 17:50 Freq: Status: Active Protocol: Document 07/17/22 13:49 [facility] (Rec: 07/17/22 15:06 [facility] [id number]) Current Condition History of Current Condition Current Complaints L lat ribcage pain History of Current Condition Pt reports L lat ribcage pain that has been going on for a while (a few months) but doesn 't remember what caused it. Reports she has been falling a lot lately. She trips a lot. She reports it is at least once a month and most of the time its outside. Pt walks with a cane when outside but nothing inside. She thinks that started more this winter. Pt tries to go for walks 2x/ week with a friend but somtimes not going as far partly d/t weather and partly d/t concern for falling. SHe can sometimes get up herself but sometimes can't and family or friends have to help. Pt si going through a hard time w /family money issues along w/ passing of mother in May. Dad helps wash her hair but pt brushes her hair and dresses herself. Pt reports she has been laying in bed a lot d/t it hurting a lot. 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 She had a R ant temporal lobe resection in 10/19/18. Treatment Goals Patient/Caregiver Goals improve balance and dec L side pain PT-OP-C Subjective Start: 07/12/22 17:50 Freq: Status: Active Protocol: Document 11/08/22 12:56 [facility] (Rec: 11/08/22 13:32 [facility] [id number]) OP-PT Subjective Patient Comments Patient Comments Pt reports she fell recently once in the kitchen and [facility] [place] her [place] leg and at home onto the left side of her hip whcih is a little sore. Her knees in general have been sore even before the falls. PT-OP-E Functional Tests Start: 07/12/22 17:50 Freq: Status: Active Protocol: Document 10/08/22 10:36 [facility] (Rec: 10/08/22 11:17 [facility] [id number]) Functional Tests 30 Second Sit to Stand Test Score 9 Dynamic Gait Index (DGI) Score 19 Five Times Sit to Stand Test Score 14 sec Functional Gait Assessment Score 14 PT-OP-F Manual Assessment Start: 07/12/22 17:50 Freq: Status: Active Protocol: Document 07/17/22 13:49 [facility] (Rec: 07/17/22 15:06 [facility] [id number]) Manual Assessments Soft Tissue Assessment Soft Tissue Mobility Assessment tenderness over lat ribcage PT-OP-G Mobility & Gait Start: 07/12/22 17:50 Freq: Status: Active Protocol: Document 07/17/22 13:49 [facility] (Rec: 07/19/22 07:59 [facility] [id number]) OP Gait Assessment Comments Gait Comments Pt amb w/dec stance time on L w/dec push off and requires lat lean to R to clear LLE as she has dec DF strength and hip flexor strength PT-OP-J Posture/Palpation/Skin Start: 07/12/22 17:50 Freq: Status: Active Protocol: Document 07/17/22 13:49 [facility] (Rec: 07/19/22 07:59 [facility] [id number]) Posture Evaluation Comments Posture Comments significantly inc kyphosis w/ rounded shoulders and fwd head ; pt tends to clasp hands in front of her PT-OP-K Range of Motion Start: 07/12/22 17:50 Freq: Status: Active Protocol: Document 07/17/22 13:49 [facility] (Rec: 07/17/22 15:06 [facility] [id number]) Lumbar Spine Range of Motion Lumbar Spine Active Degrees Rotation Left 20 Rotation Right 35 Lateral Flexion Left 15 Lateral Flexion Right 34 ROM Limitations Pain Comments pain more w/l rot; passively : L~20%; R ~40%- pain w/L; passive SB L (seated) about 40 % w/pain; R 75%; flex ends about 10% d/t pain and imbalance; pain w/ext-all in lumbar region 50% range PT-OP-M Strength Start: 07/12/22 17:50 Freq: Status: Active Protocol: Document 07/17/22 13:49 [facility] (Rec: 07/17/22 15:06 [facility] [id number]) Shoulder Strength Shoulder Manual Muscle Testing Right Flexion 4- Good- Extension 4- Good- Abduction (C5) 4- Good- Comments no pain in trunk Left Flexion 2- Poor- Extension 2+ Poor+ Abduction (C5) 2- Poor- Comments no pain in truck w/UE motion Hip Strength Hip Manual Muscle Testing Right Flexion (L2) 4- Good- Extension (S1) 3 Fair Abduction 3+ Fair+ External Rotation 3 Fair Internal Rotation 4- Good- Left Flexion (L2) 3- Fair- Extension (S1) 2 Poor Abduction 2+ Poor+ External Rotation 3- Fair- Internal Rotation 3- Fair- Knee Strength Knee Manual Muscle Testing Right Flexion (S2) 4 Good Extension (L3) 4 Good Left Flexion (S2) 3+ Fair+ Extension (L3) 3 Fair Ankle/Foot Strength Ankle and Foot Manual Muscle Testing Right Dorsiflexion (L4) 5 Normal Left Dorsiflexion (L4) 2+ Poor+ PT-OP-Q Treatments Start: 07/12/22 17:50 Freq: Status: Active Protocol: Document 11/08/22 12:56 [facility] (Rec: 11/08/22 13:32 [facility] [id number]) Gym Equipment Therapeutic Ball seated Exercise Details Lvl 1 Tb (peaShelfari) Ball Size/Color 65cm Body Position Sitting Reps/Duration 10 B Comments rotation w/both bands -cues for rot vs just arm movement Therapeutic Exercises Sidelying Exercises open book Reps/Minutes 10 Comments L Manual Therapy Treatment Soft Tissue Mobilization lats Body Location L lats and rhomboids & LS Mobilization Type Rolling,Strumming Intensity/Depth Moderate Body Position Sidelying Comments w/PROM scap dep/elevation Joint Mobilizations ribs Comments general L dep w/scap post elevation FM thoracic Comments R transverse T5-7 FM Neuro Re-Education Treatment Balance Activities Foam Equipment blue foam Comments WBOS, NBOS & Staggered stance EC SLS Comments toe tapsto 8 in step x10 b hurdles Details 6 hurdles Comments fwd x6 cues for controlled eccentric on R. Self-Care/Home Management Treatment Education Other Education 3 min-edu to discuss w/md re: noting for a long time noticing running into thing son L and that she may have less sight in L eye but unsure . Encouraged pt to have dad call MD re: this. PT-OP-R Modalities Start: 07/12/22 17:50 Freq: Status: Active Protocol: Document 11/08/22 12:56 [facility] (Rec: 11/08/22 13:32 [facility] [id number]) Hot Pack/Cold Pack Treatment Hot Pack Location L side Patient Position Sidelying Treatment Duration (minutes) 10 PT-OP-T Assessment and Plan Start: 07/12/22 17:50 Freq: Status: Active Protocol: Document 11/08/22 12:56 [facility] (Rec: 11/08/22 13:32 [facility] [id number]) Physical Therapy Assessment Goals activity Lead Infrastructure Architect Goal (LTG) Pt will report no longer spending most of her day in bed and is consistantly going for walks with her friend without inc pain or heavy fear of falls. 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 [id number] goal to FGA improve to at least 18/30 to show improved balance LTG Duration 12/31 pain Short Term Goal (STG) Pt will report ovearll dec pain w/pain no greater than . 4/3-improved to 11/14 STG Duration 11/08/22 Lead Infrastructure Architect Goal (LTG) Pt will have full ROM Of spine without inc pain to allow for normal daily activities without inc pain. 4/3-still limited but improved overall-pain noted w/L rotation only today; B rotations still limited to about 40% LTG Duration 01/01 Assessment Summary Assessment Pt had improved L scap motion after manaual treatment again today. She was very tight in L scap reigon possibly d/t recent falls. She did well with balance but is challenged w/SL time on LLE. Physical Therapy Plan Frequency and Duration Frequency of Treatment 1x/wk Duration of treatment (weeks) 12 Plan of Care Start Date 10/08/22 Plan of Care End Date 12/31/22 Next Visit Focus/Plan Next Note Type Treatment Note Next Visit Plan short sessions d/t insurance limits work on ribcage mobility exercises, dec pain w/manual, balance activiites & core control exercises
--- NOTE | 2022-11-27 16:03 | PT.OTN ---
Current Diagnoses Muscle weakness (generalized) (11/27/22) Unspecified abdominal pain (11/27/22) Difficulty in walking, not elsewhere classified (11/27/22) Other abnormalities of gait and mobility (11/27/22) Abnormal posture (11/27/22) Physical Therapy Treatment Note PT-OP-A Visit Information Start: 07/12/22 17:50 Freq: Status: Active Protocol: Document 11/27/22 15:23 [facility] (Rec: 11/27/22 16:03 [facility] [id number]) Out-Patient Physical Therapy Visit Information Visit Information Visit Type Progress Note Visit Start Time 15:18 Visit Stop Time 15:55 Total Visit Minutes 37 Visit Number 12 Number of LEASE ADMINISTRATION ANALYST Visits 0 PT-OP-B Current Condition Start: 07/12/22 17:50 Freq: Status: Active Protocol: Document 07/17/22 13:49 [facility] (Rec: 07/17/22 15:06 [facility] [id number]) Current Condition History of Current Condition Current Complaints L lat ribcage pain History of Current Condition Pt reports L lat ribcage pain that has been going on for a while (a few months) but doesn 't remember what caused it. Reports she has been falling a lot lately. She trips a lot. She reports it is at least once a month and most of the time its outside. Pt walks with a cane when outside but nothing inside. She thinks that started more this winter. Pt tries to go for walks 2x/ week with a friend but somtimes not going as far partly d/t weather and partly d/t concern for falling. SHe can sometimes get up herself but sometimes can't and family or friends have to help. Pt si going through a hard time w /family money issues along w/ passing of mother in May. Dad helps wash her hair but pt brushes her hair and dresses herself. Pt reports she has been laying in bed a lot d/t it hurting a lot. 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 She had a R ant temporal lobe resection in 10/19/18. Treatment Goals Patient/Caregiver Goals improve balance and dec L side pain PT-OP-C Subjective Start: 07/12/22 17:50 Freq: Status: Active Protocol: Document 11/27/22 15:23 [facility] (Rec: 11/27/22 16:03 [facility] [id number]) OP-PT Subjective Patient Comments Patient Comments Pt reports she had a seizure which since then, she has been really tired and not doing her exercises or walks. Overall, she does feel like PT is helping but has dec activity since her seizure Patient Reported Progress Improving PT-OP-E Functional Tests Start: 07/12/22 17:50 Freq: Status: Active Protocol: Document 11/27/22 15:23 [facility] (Rec: 11/27/22 16:03 [facility] [id number]) Functional Tests 30 Second Sit to Stand Test Score 9 Dynamic Gait Index (DGI) Score 18 PT-OP-F Manual Assessment Start: 07/12/22 17:50 Freq: Status: Active Protocol: Document 07/17/22 13:49 [facility] (Rec: 07/17/22 15:06 [facility] [id number]) Manual Assessments Soft Tissue Assessment Soft Tissue Mobility Assessment tenderness over lat ribcage PT-OP-G Mobility & Gait Start: 07/12/22 17:50 Freq: Status: Active Protocol: Document 07/17/22 13:49 [facility] (Rec: 07/19/22 07:59 [facility] [id number]) OP Gait Assessment Comments Gait Comments Pt amb w/dec stance time on L w/dec push off and requires lat lean to R to clear LLE as she has dec DF strength and hip flexor strength PT-OP-J Posture/Palpation/Skin Start: 07/12/22 17:50 Freq: Status: Active Protocol: Document 07/17/22 13:49 [facility] (Rec: 07/19/22 07:59 [facility] [id number]) Posture Evaluation Comments Posture Comments significantly inc kyphosis w/ rounded shoulders and fwd head ; pt tends to clasp hands in front of her PT-OP-K Range of Motion Start: 07/12/22 17:50 Freq: Status: Active Protocol: Document 07/17/22 13:49 [facility] (Rec: 07/17/22 15:06 [facility] [id number]) Lumbar Spine Range of Motion Lumbar Spine Active Degrees Rotation Left 20 Rotation Right 35 Lateral Flexion Left 15 Lateral Flexion Right 34 ROM Limitations Pain Comments pain more w/l rot; passively : L~20%; R ~40%- pain w/L; passive SB L (seated) about 40 % w/pain; R 75%; flex ends about 10% d/t pain and imbalance; pain w/ext-all in lumbar region 50% range PT-OP-M Strength Start: 07/12/22 17:50 Freq: Status: Active Protocol: Document 07/17/22 13:49 [facility] (Rec: 07/17/22 15:06 [facility] [id number]) Shoulder Strength Shoulder Manual Muscle Testing Right Flexion 4- Good- Extension 4- Good- Abduction (C5) 4- Good- Comments no pain in trunk Left Flexion 2- Poor- Extension 2+ Poor+ Abduction (C5) 2- Poor- Comments no pain in truck w/UE motion Hip Strength Hip Manual Muscle Testing Right Flexion (L2) 4- Good- Extension (S1) 3 Fair Abduction 3+ Fair+ External Rotation 3 Fair Internal Rotation 4- Good- Left Flexion (L2) 3- Fair- Extension (S1) 2 Poor Abduction 2+ Poor+ External Rotation 3- Fair- Internal Rotation 3- Fair- Knee Strength Knee Manual Muscle Testing Right Flexion (S2) 4 Good Extension (L3) 4 Good Left Flexion (S2) 3+ Fair+ Extension (L3) 3 Fair Ankle/Foot Strength Ankle and Foot Manual Muscle Testing Right Dorsiflexion (L4) 5 Normal Left Dorsiflexion (L4) 2+ Poor+ PT-OP-Q Treatments Start: 07/12/22 17:50 Freq: Status: Active Protocol: Document 11/27/22 15:23 [facility] (Rec: 11/27/22 16:03 [facility] [id number]) Therapeutic Exercises Sidelying Exercises open book Side bilateral Reps/Minutes 10 Manual Therapy Treatment Soft Tissue Mobilization lats Body Location L lats and rhomboids & LS Mobilization Type Rolling,Strumming Intensity/Depth Moderate Body Position Sidelying Comments w/PROM scap dep/elevation PT-OP-R Modalities Start: 07/12/22 17:50 Freq: Status: Active Protocol: Document 11/08/22 12:56 [facility] (Rec: 11/08/22 13:32 [facility] [id number]) Hot Pack/Cold Pack Treatment Hot Pack Location L side Patient Position Sidelying Treatment Duration (minutes) 10 PT-OP-T Assessment and Plan Start: 07/12/22 17:50 Freq: Status: Active Protocol: Document 11/27/22 15:23 [facility] (Rec: 11/27/22 16:03 [facility] [id number]) Physical Therapy Assessment Goals activity Fisher Diving Goal (LTG) Pt will report no longer spending most of her day in bed and is consistantly going for walks with her friend without inc pain or heavy fear of falls. 10/08- pt reprots still has some fear of falls w/walks and sometimes pain; inc time spent upright 11/27-sometimes she feels scared about falling, balance feels better w/PT, was going fro walks consistantly until her seizure LTG Duration 02/05 balance Short Term Goal (STG) Pt will be able to do at least 10x sit to surgical clinical reviewer 30 sec to show dec fall risk and inc functional strength 10/08-improved STG Duration 01/04 Detention Goal (LTG) Pt will improve DGI score to at least 19 to show dec risk for falls. 10/082-[id number]-[id number] goal to FGA improve to at least to show improved balance LTG Duration achieved 11/27 pain Short Term Goal (STG) Pt will report ovearll dec pain w/pain no greater than . 10/08-improved to 511/27-01/14 STG Duration Fisher Diving Goal (LTG) Pt will have full ROM Of spine without inc pain to allow for normal daily activities without inc pain. 10/08-still limited but improved overall-pain noted w/L rotation only today; B rotations still limited to about 40% 11/27-about 30% flex w/pain at TL; ext WNL; SB WNL but pain at L ribs; L rot 75% no pain, R rot 60% pain ribs LTG Duration 02/05 Assessment Summary Assessment Time spent w/neuro testing today but pt has shown improved balance despite the recent seizure but has had inc time in bed d/t feeling of fatigue. She had seizure on and has history of craniotomy which is complicating her recovery. Physical Therapy Plan Frequency and Duration Frequency of Treatment 1x/Week Duration of treatment (weeks) 10 Plan of Care Start Date 11/27/22 Plan of Care End Date 02/05/23 Therapeutic Interventions Therapeutic Interventions Balance Training,Coordination Training,Gait Training,Home Exercise Program,Joint Mobilizations,Manual Therapy, Neuromuscular Re-education, Orthotic/Prosthetic Management ,Patient/Caregiver Education, Self-Care/Home Management,Soft Tissue Mobilization,Taping, Therapeutic Activities, Therapeutic Exercises Modalities Cold Pack/Ice Massage,Hot Packs Next Visit Focus/Plan Next Note Type Treatment Note Next Visit Plan short sessions d/t insurance limits work on ribcage mobility exercises, dec pain w/manual, balance activiites & core control exercises
--- NOTE | 2022-11-27 16:03 | PT.OPPOC ---
Physical, Occupational & Speech Therapy At [facility] Current Diagnoses Muscle weakness (generalized) (11/27/22) Unspecified abdominal pain (11/27/22) Difficulty in walking, not elsewhere classified (11/27/22) Other abnormalities of gait and mobility (11/27/22) Abnormal posture (11/27/22) Visit Care Team Role Provider Type Carson Perez DO Attending Provider Physician Family Provider Primary Care Provider Referring Provider Specialty: [facility] Practice Address: [address] [place] [address], [facility] Email: [email or web address] Plan Of Care PT-OP-T Assessment and Plan Start: 07/12/22 17:50 Freq: Status: Active Protocol: Document 11/27/22 15:23 [facility] (Rec: 11/27/22 16:03 [facility] [id number]) Physical Therapy Assessment Goals activity Senior Living Goal (LTG) Pt will report no longer spending most of her day in bed and is consistantly going for walks with her friend without inc pain or heavy fear of falls. 4/- pt reprots still has some fear of falls w/walks and sometimes pain; inc time spent upright 11/27-sometimes she feels scared about falling, balance feels better w/PT, was going fro walks consistantly until her seizure LTG Duration 02/05 balance Short Term Goal (STG) Pt will be able to do at least 10x sit to softball winder 30 sec to show dec fall risk and inc functional strength 4/3-improved STG Duration 01/04 Braid Maker Goal (LTG) Pt will improve DGI score to at least 19 to show dec risk for falls. 4/5-nriyiipw-kyklyyu goal to FGA improve to at least to show improved balance LTG Duration achieved 11/27 pain Short Term Goal (STG) Pt will report ovearll dec pain w/pain no greater than . 4/3-improved to 11/14 11/27-01/14 STG Duration Senior Living Goal (LTG) Pt will have full ROM Of spine without inc pain to allow for normal daily activities without inc pain. 4/3-still limited but improved overall-pain noted w/L rotation only today; B rotations still limited to about 40% 11/27-about 30% flex w/pain at TL; ext WNL; SB WNL but pain at L ribs; L rot 75% no pain, R rot 60% pain ribs LTG Duration 02/05 Assessment Summary Assessment Time spent w/neuro testing today but pt has shown improved balance despite the recent seizure but has had inc time in bed d/t feeling of fatigue. She had seizure on and has history of craniotomy which is complicating her recovery. Physical Therapy Plan Frequency and Duration Frequency of Treatment 1x/Week Duration of treatment (weeks) 10 Plan of Care Start Date 11/27/22 Plan of Care End Date 02/05/23 Therapeutic Interventions Therapeutic Interventions Balance Training,Coordination Training,Gait Training,Home Exercise Program,Joint Mobilizations,Manual Therapy, Neuromuscular Re-education, Orthotic/Prosthetic Management ,Patient/Caregiver Education, Self-Care/Home Management,Soft Tissue Mobilization,Taping, Therapeutic Activities, Therapeutic Exercises Modalities Cold Pack/Ice Massage,Hot Packs Next Visit Focus/Plan Next Note Type Treatment Note Next Visit Plan short sessions d/t insurance limits work on ribcage mobility exercises, dec pain w/manual, balance activiites & core control exercises Plan of Care Dates Plan of Care Start Date 11/27/22 Plan of Care End Date 02/05/23 Electronically Signed by: Lilibeth Schroeder, PT 11/27/22 3724 If you are in agreement with this Plan of Care, please return a signed and dated copy. I have reviewed this Plan of Care and certify that the skilled therapy services above are required to meet the patient?s needs. Physician Signature Date Printed Name and Credentials Clinical Instructor Signature Printed Name and Credentials
--- NOTE | 2023-01-14 08:11 | PT.OPDS ---
Current Diagnoses Muscle weakness (generalized) (11/27/22) Unspecified abdominal pain (11/27/22) Difficulty in walking, not elsewhere classified (11/27/22) Other abnormalities of gait and mobility (11/27/22) Abnormal posture (11/27/22) Visit Care Team Role Provider Type Carson Perez DO Attending Provider Physician Family Provider Primary Care Provider Referring Provider Specialty: [facility] Practice Address: [address] [place] [address], [facility] Email: [email or web address] Visit Number Visit Number 12 Discharge Summary PT-OP-B Current Condition Start: 07/12/22 17:50 Freq: Status: Active Protocol: Document 07/17/22 13:49 [facility] (Rec: 07/17/22 15:06 [facility] [id number]) Current Condition History of Current Condition Current Complaints L lat ribcage pain History of Current Condition Pt reports L lat ribcage pain that has been going on for a while (a few months) but doesn 't remember what caused it. Reports she has been falling a lot lately. She trips a lot. She reports it is at least once a month and most of the time its outside. Pt walks with a cane when outside but nothing inside. She thinks that started more this winter. Pt tries to go for walks 2x/ week with a friend but somtimes not going as far partly d/t weather and partly d/t concern for falling. SHe can sometimes get up herself but sometimes can't and family or friends have to help. Pt si going through a hard time w /family money issues along w/ passing of mother in May. Dad helps wash her hair but pt brushes her hair and dresses herself. Pt reports she has been laying in bed a lot d/t it hurting a lot. 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 She had a R ant temporal lobe resection in 10/19/18. Treatment Goals Patient/Caregiver Goals improve balance and dec L side pain PT-OP-C Subjective Start: 07/12/22 17:50 Freq: Status: Active Protocol: Document 11/27/22 15:23 [facility] (Rec: 11/27/22 16:03 [facility] [id number]) OP-PT Subjective Patient Comments Patient Comments Pt reports she had a seizure which since then, she has been really tired and not doing her exercises or walks. Overall, she does feel like PT is helping but has dec activity since her seizure Patient Reported Progress Improving PT-OP-E Functional Tests Start: 07/12/22 17:50 Freq: Status: Active Protocol: Document 11/27/22 15:23 [facility] (Rec: 11/27/22 16:03 [facility] [id number]) Functional Tests 30 Second Sit to Stand Test Score 9 Dynamic Gait Index (DGI) Score 18 PT-OP-F Manual Assessment Start: 07/12/22 17:50 Freq: Status: Active Protocol: Document 07/17/22 13:49 [facility] (Rec: 07/17/22 15:06 [facility] [id number]) Manual Assessments Soft Tissue Assessment Soft Tissue Mobility Assessment tenderness over lat ribcage PT-OP-G Mobility & Gait Start: 07/12/22 17:50 Freq: Status: Active Protocol: Document 07/17/22 13:49 [facility] (Rec: 07/19/22 07:59 [facility] [id number]) OP Gait Assessment Comments Gait Comments Pt amb w/dec stance time on L w/dec push off and requires lat lean to R to clear LLE as she has dec DF strength and hip flexor strength PT-OP-J Posture/Palpation/Skin Start: 07/12/22 17:50 Freq: Status: Active Protocol: Document 07/17/22 13:49 [facility] (Rec: 07/19/22 07:59 [facility] [id number]) Posture Evaluation Comments Posture Comments significantly inc kyphosis w/ rounded shoulders and fwd head ; pt tends to clasp hands in front of her PT-OP-K Range of Motion Start: 07/12/22 17:50 Freq: Status: Active Protocol: Document 07/17/22 13:49 [facility] (Rec: 07/17/22 15:06 [facility] [id number]) Lumbar Spine Range of Motion Lumbar Spine Active Degrees Rotation Left 20 Rotation Right 35 Lateral Flexion Left 15 Lateral Flexion Right 34 ROM Limitations Pain Comments pain more w/l rot; passively : L~20%; R ~40%- pain w/L; passive SB L (seated) about 40 % w/pain; R 75%; flex ends about 10% d/t pain and imbalance; pain w/ext-all in lumbar region 50% range PT-OP-M Strength Start: 07/12/22 17:50 Freq: Status: Active Protocol: Document 07/17/22 13:49 [facility] (Rec: 07/17/22 15:06 [facility] [id number]) Shoulder Strength Shoulder Manual Muscle Testing Right Flexion 4- Good- Extension 4- Good- Abduction (C5) 4- Good- Comments no pain in trunk Left Flexion 2- Poor- Extension 2+ Poor+ Abduction (C5) 2- Poor- Comments no pain in truck w/UE motion Hip Strength Hip Manual Muscle Testing Right Flexion (L2) 4- Good- Extension (S1) 3 Fair Abduction 3+ Fair+ External Rotation 3 Fair Internal Rotation 4- Good- Left Flexion (L2) 3- Fair- Extension (S1) 2 Poor Abduction 2+ Poor+ External Rotation 3- Fair- Internal Rotation 3- Fair- Knee Strength Knee Manual Muscle Testing Right Flexion (S2) 4 Good Extension (L3) 4 Good Left Flexion (S2) 3+ Fair+ Extension (L3) 3 Fair Ankle/Foot Strength Ankle and Foot Manual Muscle Testing Right Dorsiflexion (L4) 5 Normal Left Dorsiflexion (L4) 2+ Poor+ PT-OP-T Assessment and Plan Start: 07/12/22 17:50 Freq: Status: Active Protocol: Document 01/14/23 08:10 [facility] (Rec: 01/14/23 08:11 [facility] [id number]) Physical Therapy Assessment Goals activity Proprietary Trader Goal (LTG) Pt will report no longer spending most of her day in bed and is consistantly going for walks with her friend without inc pain or heavy fear of falls. 10/08- pt reprots still has some fear of falls w/walks and sometimes pain; inc time spent upright 11/27-sometimes she feels scared about falling, balance feels better w/PT, was going fro walks consistantly until her seizure LTG Duration 02/05 balance Short Term Goal (STG) Pt will be able to do at least 10x sit to train starter 30 sec to show dec fall risk and inc functional strength 4/3-improved STG Duration 01/04 Longterm Goal (LTG) Pt will improve DGI score to at least 19 to show dec risk for falls. 10/088-xizcekbw-llftplw goal to FGA improve to at least to show improved balance LTG Duration achieved 11/27 pain Short Term Goal (STG) Pt will report ovearll dec pain w/pain no greater than . 10/08-improved to 11/14 11/27-01/14 STG Duration Longterm Goal (LTG) Pt will have full ROM Of spine without inc pain to allow for normal daily activities without inc pain. 10/08-still limited but improved overall-pain noted w/L rotation only today; B rotations still limited to about 40% 11/27-about 30% flex w/pain at TL; ext WNL; SB WNL but pain at L ribs; L rot 75% no pain, R rot 60% pain ribs LTG Duration 02/05 Assessment Summary Assessment Pt was making progress w/PT w/ imprvoing balance and was improving w/ROM of trunk w/ less pain and less pain at home allowing her to move more . She is DC d/t insurance not allowing further visits. Physical Therapy Plan Discharge Physical Therapy Discharge Comments Insurance not allowing further visits
== END 2023-01-15 10:39 | disposition home or self-care (01) ==
LOC: PHYS 15:15
PROVIDERS: Family Provider Family Medicine; PCP Family Medicine; Referring Provider Family Medicine; Visit Provider Family Medicine
DX: R10.9 Unspecified abdominal pain (principal); M62.81 Muscle weakness (generalized); R29.3 Abnormal posture; R26.2 Difficulty in walking, not elsewhere classified; R26.89 Other abnormalities of gait and mobility
CPT/HCPCS: 97110; 97112; 97140; 97162; 97163

== ENCOUNTER 2023-03-12 21:21 | Emergency (ER) | payer OTHER, MEDICAID, SELFPAY ==
[2023-03-12 21:27] VITALS: BP 127/85; PULSE 98; RESP 18; TEMP 36.9; O2SAT 99
--- NOTE | 2023-03-13 02:56 | ED_ITS ---
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 It hurts to touch it. Denies any fever no left ear pain no sore throat. No fever or chills. She denied denies any foreign body. Related Data Home Medications Medication Instructions Recorded Confirmed oxcarbazepine 600 mg 1,200 mg PO BEDTIME 11/19/22 12/18/22 tablet,extended release 24 hr (Oxtellar XR) Previous Rx's Medication Instructions Recorded valacyclovir 1 gram tablet See Rx Instructions .Route 08/16/22 .COMPLEX #28 tabs acetaminophen 300 mg-codeine 30 mg See Rx Instructions .Route 08/20/22 tablet .COMPLEX #60 tabs trazodone 50 mg tablet See Rx Instructions .Route 09/17/22 .COMPLEX #90 tabs diazepam 2.5 mg rectal kit 5 mg MT Q6H PRN seizure activity 2 11/19/22 doses #1 ea diazepam 5 mg-7.5 mg-10 mg rectal 5 mg MT Q6H PRN seizure activity 2 11/23/22 kit (Diastat AcuDial) doses #1 ea cholecalciferol (vitamin D3) 25 25 mcg PO DAILY #90 caps 12/18/22 mcg (1,000 unit) capsule escitalopram oxalate 20 mg tablet 20 mg PO DAILY #90 tabs 12/18/22 (Lexapro) meloxicam 15 mg tablet 15 mg PO DAILY PRN pain #30 tabs 01/09/23 Parking Permit... #1 ea 01/14/23 Allergies Allergy/AdvReac Type Severity Reaction Status Date / Time No Known Drug Allergies Allergy Verified 12/18/22 16:26 Review of Systems Review of Systems ROS Unobtainable: All systems reviewed & are unremarkable except as noted in HPI and below Patient History Medical History Acute left flank pain Anxiety and depression Decreased mobility Dysuria Fatigue due to depression FH: breast cancer in first degree relative when <50 years old FHx: BRCA2 gene positive Hand dysfunction History of nephrolithiasis Insomnia disorder with non-sleep disorder mental comorbidity IT band syndrome Mixed incontinence urge and stress Seizure disorder Selective mutism as adjustment reaction Viral URI with cough Family History Mother Cancer Grandmother BRCA2 gene mutation positive Family/Other BRCA2 gene mutation positive Social History Smoking Status: Never smoker Smoking Status: Never smoker Substance Use Type: does not use Exam Initial Vital Signs Initial Vital Signs: Vital Signs Temperature 98.5 F 03/12/23 21:27 Pulse Rate 98 H 03/12/23 21:27 Respiratory Rate 18 03/12/23 21:27 Blood Pressure 127/85 03/12/23 21:27 Pulse Oximetry 99 03/12/23 21:27 Oxygen Delivery Method Room Air 03/12/23 21:27 GENERAL: Alert well-appearing 22-year-old female CARDIOVASCULAR: peripheral pulses in tact, cap refill <2 sec EAR: Left ear external exam normal tympanic membrane visualized non erythematous Right ear drainage tender outside no swelling RESPIRATORY: No respiratory distress, speaks in full sentences without difficulty EXTREMITIES: Normal range of motion, no clubbing or edema. Neurovascularly intact NEUROLOGICAL: Cranial nerves II through XII grossly intact. Normal gait and speech. SKIN: Warm, dry, no petechiae, no rashes or lesions. Course Orders Ordered: Discontinued Medications Neomycin/Polymyxin/Hydrocortisone (Neomy/Polym B/Hc Otic 10 Ml) 4 drops EAR- BOTH NOW ONE Stop: 03/13/23 02:58 Last Admin: 03/13/23 03:19 Dose: 4 drops Vital Signs Vital signs: Vital Signs - 8 hr 03/12/23 21:27 Temperature 98.5 F Pulse Rate 98 H Respiratory Rate 18 Blood Pressure 127/85 Pulse Oximetry 99 Oxygen Delivery Method Room Air Medical Decision Making [facility] Narrative Medical decision making narrative: Patient 22-year-old female who actually conversed with me complaining of right ear pain. Tender on the outside some mild drainage on the inside. Consistent with an otitis externa. Tympanic membrane is non erythematous no need for p.o. antibiotics. She is afebrile no evidence of sepsis. She is given a whole bottle of drops from the ED. Discharge Plan Departure Patient Disposition: Home Clinical Impression: Otitis externa Instructions: How to Instill Ear Drops, DI for Otitis Externa Activity Restrictions/Additional Instructions: *You have been diagnosed with otitis externa *What to do: *Continue to take medications as directed Cortisporin drops 4 drops 3 times daily for 1 week *Follow up with your primary care provider in 2-3 days or call [phone] *Return to ER if you should have increasing pain fever or any new, worsening or concerning symptoms Prescriptions: No Action valacyclovir 1 gram tablet See Rx Instructions .ROUTE .COMPLEX Qty: 28 0RF Dose Instruction: Take 2 tablets twice each day for 1 day at 1st sign of cold sore --use as needed for cold sores-- Rx Instructions: Take 2 tablets twice each day for 1 day at 1st sign of cold sore --use as needed for cold sores-- acetaminophen-codeine 300-30 mg tablet See Rx Instructions .ROUTE .COMPLEX Qty: 60 0RF Rx Instructions: Take 1 tablet by mouth 3 times daily as needed for pain trazodone 50 mg tablet See Rx Instructions .ROUTE .COMPLEX Qty: 90 3RF Dose Instruction: Take one to two tablets by mouth nightly as needed for sleep Rx Instructions: Take one to two tablets by mouth nightly as needed for sleep diazepam [Diastat AcuDial] 5-7.5-10 mg kit 5 mg MT Q6H PRN (Reason: seizure activity) Qty: 1 3RF meloxicam 15 mg tablet 15 mg PO DAILY PRN (Reason: pain) Qty: 30 1RF (DME) Parking Permit... See Rx Instructions .Route .MEDSUPPLY Qty: 1 0RF Rx Instructions: I find this patient to be medically disabled and qualified for Disabled Parking as indicated, and signed, on Accompanying Disabled Parking Application for Individuals cholecalciferol (vitamin D3) 25 mcg (1,000 unit) capsule 25 mcg PO DAILY Qty: 90 1RF escitalopram oxalate [Lexapro] 20 mg tablet 20 mg PO DAILY Qty: 90 2RF Oxtellar XR 600 mg tablet extended release 24 hr 1,200 mg PO BEDTIME Rx Instructions: must be taken on empty stomach; no food at least 2 hrs before or 1 hr after dose diazepam 2.5 mg kit 5 mg MT Q6H PRN (Reason: seizure activity) Qty: 1 0RF Referrals: Cirilo Bryan MD [Primary Care Provider] - Stand Alone Forms: Patient Portal/API
[2023-03-13] MEDS: NEOMY/POLYM B/HC OTIC 10 ML 4 DROPS EAR-BOTH (03:19)
== END 2023-03-13 03:42 | disposition home or self-care (01) ==
PROVIDERS: Emergency Provider Emergency Medicine; Family Provider Family Medicine; PCP Family Medicine
DX: H60.91 Unspecified otitis externa, right ear (principal)
CPT/HCPCS: 99282

== ENCOUNTER → 2023-03-23 18:59 | Outpatient (CLI) | payer OTHER, MEDICAID, SELFPAY ==
[2023-03-23 20:06] LABS: Influenza A - CEPHEID Flu A NEGATIVE (NEGATIVE); Influenza B - CEPHEID Flu B NEGATIVE (NEGATIVE); Respiratory Syncytial Virus Negative (Negative)
[2023-03-23 20:12] LABS: COVID-19 CEPHEID 4-PLEX PCR Negative (Negative)
== END ==
PROVIDERS: Family Provider Family Medicine; PCP Family Medicine; Visit Provider Nurse Practitioner Family
DX: J06.9 Acute upper respiratory infection, unspecified (principal); J02.9 Acute pharyngitis, unspecified
CPT/HCPCS: 0241U; 87070; C9803

== ENCOUNTER → 2023-05-13 16:35 | Outpatient (CLI) | payer OTHER, MEDICAID, SELFPAY ==
--- NOTE | 2023-05-13 16:39 | DI.RAD.S_ITS ---
PROCEDURE: XR FOOT LT MIN 3V INDICATIONS: left foot pain and swelling TECHNIQUE: 3 views of the foot were acquired. COMPARISON: [facility], CR, XR FOOT LT MIN 3V, 07/16/2021, 20:40. [facility], CR, XR FOOT RT MIN 3V, 11/14/2020, 15:51. FINDINGS: Bones: No fractures or dislocations. No suspicious bony lesions. Soft tissues: No tibiotalar joint effusion. Achilles tendon appears normal. Soft tissue swelling. IMPRESSION: No acute osseous abnormality. If pain persists with conservative management, consider repeat x-ray in 10-14 days or cross-sectional imaging. Dictated by: Jairon Laird M.D. on 05/14/2023 at 12:40 Approved by: Jairon Laird M.D. on 05/14/2023 at 12:40
== END ==
PROVIDERS: Family Provider Family Medicine; PCP Family Medicine; Referring Provider Family Medicine; Visit Provider Family Medicine
DX: M79.672 Pain in left foot (principal)
CPT/HCPCS: 73630

== ENCOUNTER → 2023-06-14 11:05 | Outpatient (CLI) | payer OTHER, MEDICAID, SELFPAY ==
[2023-06-14 13:02] LABS: Erythrocyte Sedimentation Rate 13 MM/HR (0-20)
[2023-06-14 13:17] LABS: Alanine Aminotransferase 26 IU/L (<35); Albumin 4.4 g/dL (3.5-5.0); Albumin Globulin Ratio 1.3 (1.0-2.8); Alkaline Phosphatase 72 U/L (38-126); Aspartate Aminotransferase 20 IU/L (14-36); BUN Creatinine Ratio 15.4 (6-22); Bilirubin Total 0.4 mg/dL (0.2-1.3); Blood Urea Nitrogen 10 mg/dL (7-17); C-Reactive Protein Quant 1.6 mg/dL (<1.0); Carbon Dioxide 29 mmol/L (22-32); Chloride 100 mmol/L (98-107); Estimated Glomerular Filt Rate > 60 mL/min (>60); Globulin 3.4 g/dL (1.7-4.1); Glucose 91 mg/dL (70-100); HEMOLYSIS 16 (0-50); Potassium 4.2 mmol/L (3.4-5.1); Sodium 136 mmol/L (137-145); Total Protein 7.8 g/dL (6.3-8.2)
[2023-06-14 13:28] LABS: Rheumatoid Factor < 8.6 IU/mL (<12.0)
[2023-06-14 13:49] LABS: TSH w/ Reflex to FT4 2.31 uIU/mL (0.47-4.68)
[2023-06-14 15:36] LABS: Vitamin D 25 Hydroxy (D3) 20.7 ng/mL (30.0-100.0)
[2023-06-18 20:10] LABS: CCP Antibodies IgG/IgA 6 units (0-19)
== END ==
PROVIDERS: Family Provider Family Medicine; PCP Family Medicine; Referring Provider Family Medicine; Visit Provider Family Medicine
DX: M25.571 Pain in right ankle and joints of right foot (principal); M79.671 Pain in right foot; M79.672 Pain in left foot; M79.641 Pain in right hand; M79.642 Pain in left hand; M25.40 Effusion, unspecified joint; E03.9 Hypothyroidism, unspecified; G40.909 Epilepsy, unspecified, not intractable, without status epilepticus; E55.9 Vitamin D deficiency, unspecified; F81.9 Developmental disorder of scholastic skills, unspecified; F41.9 Anxiety disorder, unspecified; F32.9 Major depressive disorder, single episode, unspecified
CPT/HCPCS: 36415; 80053; 82306; 84443; 85651; 86140; 86200; 86430

== ENCOUNTER 2023-09-11 13:45 | Outpatient (RCR) | payer OTHER, MEDICAID, SELFPAY ==
--- NOTE | 2023-07-24 14:40 | PT.OIE ---
Current Diagnoses Pain in right ankle and joints of right foot (07/24/23) Iliotibial band syndrome, unspecified leg (07/24/23) Pain in right foot (07/24/23) Pain in left foot (07/24/23) Other abnormalities of gait and mobility (07/24/23) Other symptoms and signs involving the musculoskeletal system (07/24/23) Past Medical History (Last Updated 06/14/23 @ 10:52 by Cirilo Bryan MD) Acute left flank pain Anxiety and depression Bilateral hand pain Decreased mobility Dysuria Fatigue due to depression FH: breast cancer in first degree relative when <50 years old FHx: BRCA2 gene positive Hand dysfunction History of nephrolithiasis Insomnia disorder with non-sleep disorder mental comorbidity IT band syndrome Mixed incontinence urge and stress Seizure disorder Selective mutism as adjustment reaction Viral URI with cough Past Surgical History (Last Updated 05/13/23 @ 16:16 by Cirilo Bryan MD) H/O brain surgery Visit Care Team Role Provider Type Cirilo Bryan MD Attending Provider Physician Family Provider Primary Care Provider Referring Provider Specialty: [facility] Address: [address] [place] [address] Email: [email or web address] Physical Therapy Initial Evaluation PT-OP-A Visit Information Start: 07/22/23 13:24 Freq: Status: Active Protocol: Document 07/24/23 13:35 MB (Rec: 07/24/23 14:39 MB [id number]) Out-Patient Physical Therapy Visit Information Visit Information Visit Type Initial Evaluation Visit Note Eval and then 24 units Visit Start Time 13:35 Visit Stop Time 14:20 Total Visit Minutes 45 Visit Number 1 Number of TELE MARKETING EXECUTIVE Visits 0 Evaluation Information Evaluation Date 07/24/23 PT-OP-B Current Condition Start: 07/22/23 13:24 Freq: Status: Active Protocol: Document 07/24/23 13:35 MB (Rec: 07/24/23 14:39 MB [id number]) Current Condition History of Current Condition Onset Date Several months ago Current Complaints Pt reports constantly twisting her left foot History of Current Condition Pt lives with her dad. There are several steps to enter home and a ramp. There is a railing at the steps. Pt constantly twists her left foot in the house when she doesn't wear her AFO in the house. Pt is not using AD in the house. Pt's mom in May 2022 and her dog in September of 2022. She then had her first seizure in many years in November of 2022. Pt has a cane, walker, gait health and safety trainer, three pronged cane, electric and manual w/c. Pt states that she has left greater than right foot pain and she would like to work on her foot pain and her balance. She has a history of left sided weakness since she was 18 months old. She had two brain surgeries: one in 2013 and one in 2018. They were for the seizures. The left side got weaker since then. She also feels weaker since the seizure on November 19, 2022. Her left foot has been swollen a lot. She does not wear compression or use ice. Treatment Goals Patient/Caregiver Goals To improve balance and foot pain. PT-OP-C Subjective Start: 07/22/23 13:24 Freq: Status: Active Protocol: Document 07/24/23 13:35 MB (Rec: 07/24/23 14:39 MB [id number]) Patient Questionnaires Other Questionnaire Name and Score Falls Efficacy Scale- International: score 44/64 PT-OP-D Balance Start: 07/22/23 13:24 Freq: Status: Active Protocol: Document 07/24/23 13:35 MB (Rec: 07/24/23 14:39 MB [id number]) Balance Tests Other Other Balance Tests Performed Pt requires CGA to COMPUTER SUPPORT TECHNICIAN for weight shifting and changing foot position for dynamic standing balance today PT-OP-G Mobility & Gait Start: 07/22/23 13:24 Freq: Status: Active Protocol: Document 07/24/23 13:35 MB (Rec: 07/24/23 14:39 MB [id number]) OP Gait Assessment Comments Gait Comments Pt requires superv to SBA for gait without AD (pt does not bring AD into clinic) and she presents with step-to gait, right and then left LE and she has a lateral component to stepping and gait and gait is slow. Left hand and UE draws into flexion positioning with stepping. PT-OP-K Range of Motion Start: 07/22/23 13:24 Freq: Status: Active Protocol: Document 07/24/23 13:35 MB (Rec: 07/24/23 14:39 MB [id number]) Hip Goniometric Range of Motion Hip ROM Limitations Comments R LE ROM and MMT is normal/ functional Ankle and Foot Goniometric Range of Motion Ankle and Foot ROM Limitations Comments L foot and ankle with tone changes. Pt has little toe movement and trace ankle movement and her ankle is rigid with attempted PROM. Pt with occ strong clonus LLE with adjusting AFO. R knee flexion and extension are 4/5 and hip flexion and abduction are 2+/5 in sitting. PT-OP-Q Treatments Start: 07/22/23:24 Freq: Status: Active Protocol: Document 07/24/23 13:35 MB (Rec: 07/24/23 14:39 MB [id number]) Self-Care/Home Management Treatment Education Patient Education Joint Protection,Safety Other Education PT ed pt in having her dad look at her left foot to make sure redness across forefoot and mid foot from AFO does not cause skin breakdown. Pt with B purplish coloring of LEs and coolness to touch that is greater on the left foot. Pt with some mild LE edema as well. Pt reports no sensation in her feet. PT-OP-T Assessment and Plan Start: 07/22/23:24 Freq: Status: Active Protocol: Document 07/24/23 13:35 MB (Rec: 07/24/23 14:39 MB [id number]) Physical Therapy Assessment Rehab Potential Rehabilitation Potential Fair Evaluation Complexity Number of Personal Factors/Comorbidities 3 or More Number of Body Systems Impaired 3 Clinical Presentation at Evaluation Evolving Impairments Impairments Activity Tolerance,Balance, Coordination,Edema,Functional Activities,Functional Mobility ,Gait,Integument,Pain,Posture, ROM,Sensation,Soft Tissue Mobility,Strength,Transfers Other Concerns Fall Risk High fall risk Goals 3 Impairment High fall risk Ring Sewer Goal (LTG) Pt will score WNLs on Ventura or Tinetti balance tests to decrease fall risk at home. LTG Duration 8 weeks 2 Impairment Falls Efficacy Scale- International score 44/64 Ring Sewer Goal (LTG) Pt will score no more than 30/ 64 on Falls Efficacy Scale to reflect decreased fear of falling. LTG Duration 8 weeks 1 Impairment History of falls Custodial Goal (LTG) Pt will deny falls for one month to increase I and safety . LTG Duration 8 weeks Assessment Summary Assessment Pt is a soft spoken 22 y/o female presenting with left sided weakness and tone s/p seizures and brain surgeries in the past. Pt reports falling at home when she doesn 't wear her left AFO and that she is not using AD in the house. She states that her dad helps her with all ADLs at home. Pt's B LEs are purplish in color and she has left greater than right coolness to touch. She has some redness at some areas on her left foot from her AFO. Pt with clonus in left ankle as PT assists with doffing AFO and shoe. Pt will benefit from PT to improve transfers, gait and balance. Barriers include tone and decreased use of AFO and AD at home despite falls. Pt also reports she cannot remember much and so ? compliance/ability to con't with home program. Physical Therapy Plan Frequency and Duration Frequency of Treatment 1-2x/week Duration of treatment (weeks) 8 Plan of Care Start Date 07/24/23 Plan of Care End Date 09/30/23 Therapeutic Interventions Therapeutic Interventions Balance Training,Gait Training ,Home Exercise Program,Manual Therapy,Neuromuscular Re- education,Orthotic/Prosthetic Management,Patient/Caregiver Education,Self-Care/Home Management,Sensory Integration ,Soft Tissue Mobilization, Taping,Therapeutic Activities, Therapeutic Exercises, Vestibular Rehabilitation Modalities Cold Pack/Ice Massage,Hot Packs Next Visit Focus/Plan Next Note Type Treatment Note Next Visit Plan Initiate NuStep, LE and balance exercises, will try to add game type activities to exercises
--- NOTE | 2023-07-24 14:40 | PT.OPPOC ---
Physical, Occupational & Speech Therapy At [facility] Current Diagnoses Pain in right ankle and joints of right foot (07/24/23) Iliotibial band syndrome, unspecified leg (07/24/23) Pain in right foot (07/24/23) Pain in left foot (07/24/23) Other abnormalities of gait and mobility (07/24/23) Other symptoms and signs involving the musculoskeletal system (07/24/23) Visit Care Team Role Provider Type Cirilo Bryan MD Attending Provider Physician Family Provider Primary Care Provider Referring Provider Specialty: [facility] Practice Address: [address] [place] [address] Email: [email or web address] Plan Of Care PT-OP-T Assessment and Plan Start: 07/22/23 13:24 Freq: Status: Active Protocol: Document 07/24/23 13:35 MB (Rec: 07/24/23 14:39 MB [id number]) Physical Therapy Assessment Rehab Potential Rehabilitation Potential Fair Evaluation Complexity Number of Personal Factors/Comorbidities 3 or More Number of Body Systems Impaired 3 Clinical Presentation at Evaluation Evolving Impairments Impairments Activity Tolerance,Balance, Coordination,Edema,Functional Activities,Functional Mobility ,Gait,Integument,Pain,Posture, ROM,Sensation,Soft Tissue Mobility,Strength,Transfers Other Concerns Fall Risk High fall risk Goals 3 Impairment High fall risk Custodial Goal (LTG) Pt will score WNLs on Ventura or Tinetti balance tests to decrease fall risk at home. LTG Duration 8 weeks 2 Impairment Falls Efficacy Scale- International score 44/64 Custodial Goal (LTG) Pt will score no more than 30/ 64 on Falls Efficacy Scale to reflect decreased fear of falling. LTG Duration 8 weeks 1 Impairment History of falls Custodial Goal (LTG) Pt will deny falls for one month to increase I and safety . LTG Duration 8 weeks Assessment Summary Assessment Pt is a soft spoken 22 y/o female presenting with left sided weakness and tone s/p seizures and brain surgeries in the past. Pt reports falling at home when she doesn 't wear her left AFO and that she is not using AD in the house. She states that her dad helps her with all ADLs at home. Pt's B LEs are purplish in color and she has left greater than right coolness to touch. She has some redness at some areas on her left foot from her AFO. Pt with clonus in left ankle as PT assists with doffing AFO and shoe. Pt will benefit from PT to improve transfers, gait and balance. Barriers include tone and decreased use of AFO and AD at home despite falls. Pt also reports she cannot remember much and so ? compliance/ability to con't with home program. Physical Therapy Plan Frequency and Duration Frequency of Treatment 1-2x/week Duration of treatment (weeks) 8 Plan of Care Start Date 07/24/23 Plan of Care End Date 09/30/23 Therapeutic Interventions Therapeutic Interventions Balance Training,Gait Training ,Home Exercise Program,Manual Therapy,Neuromuscular Re- education,Orthotic/Prosthetic Management,Patient/Caregiver Education,Self-Care/Home Management,Sensory Integration ,Soft Tissue Mobilization, Taping,Therapeutic Activities, Therapeutic Exercises, Vestibular Rehabilitation Modalities Cold Pack/Ice Massage,Hot Packs Next Visit Focus/Plan Next Note Type Treatment Note Next Visit Plan Initiate NuStep, LE and balance exercises, will try to add game type activities to exercises Plan of Care Dates Plan of Care Start Date 07/24/23 Plan of Care End Date 09/30/23 Electronically Signed by: Staci Davison PT 07/24/23 1240 If you are in agreement with this Plan of Care, please return a signed and dated copy. I have reviewed this Plan of Care and certify that the skilled therapy services above are required to meet the patient?s needs. Physician Signature Date Printed Name and Credentials Clinical Instructor Signature Printed Name and Credentials
--- NOTE | 2023-07-31 13:23 | PT-OP ANOTE ---
Pt arrives more than 20 minutes late to appointment. Provided list of appointment times and reviewed next appointment, 08/05 at 1345 with patient. No time for meaningful treatment today.
--- NOTE | 2023-08-05 15:09 | PT.OTN ---
Current Diagnoses Pain in right ankle and joints of right foot (08/05/23) Iliotibial band syndrome, unspecified leg (08/05/23) Pain in right foot (08/05/23) Pain in left foot (08/05/23) Other abnormalities of gait and mobility (08/05/23) Other symptoms and signs involving the musculoskeletal system (08/05/23) Physical Therapy Treatment Note PT-OP-A Visit Information Start: 07/22/23 13:24 Freq: Status: Active Protocol: Document 08/05/23 13:49 NBM (Rec: 08/05/23 15:08 NBM [id number]) Out-Patient Physical Therapy Visit Information Visit Information Visit Type Treatment Note Visit Start Time 13:49 Visit Stop Time 14:35 Visit Number 2 Number of OCEAN EXPORT AGENT Visits 1 Evaluation Information Evaluation Date 07/24/23 PT-OP-B Current Condition Start: 07/22/23 13:24 Freq: Status: Active Protocol: Document 07/24/23 13:35 MB (Rec: 07/24/23 14:39 MB [id number]) Current Condition History of Current Condition Onset Date Several months ago Current Complaints Pt reports constantly twisting her left foot History of Current Condition Pt lives with her dad. There are several steps to enter home and a ramp. There is a railing at the steps. Pt constantly twists her left foot in the house when she doesn't wear her AFO in the house. Pt is not using AD in the house. Pt's mom in May 2022 and her dog in September of 2022. She then had her first seizure in many years in November of 2022. Pt has a cane, walker, gait care trainer, three pronged cane, electric and manual w/c. Pt states that she has left greater than right foot pain and she would like to work on her foot pain and her balance. She has a history of left sided weakness since she was 18 months old. She had two brain surgeries: one in 2013 and one in 2018. They were for the seizures. The left side got weaker since then. She also feels weaker since the seizure on November 19, 2022. Her left foot has been swollen a lot. She does not wear compression or use ice. Treatment Goals Patient/Caregiver Goals To improve balance and foot pain. PT-OP-C Subjective Start: 07/22/23 13:24 Freq: Status: Active Protocol: Document 08/05/23 13:49 NBM (Rec: 08/05/23 15:08 NBM [id number]) OP-PT Subjective Patient Comments Patient Comments Mona reports no new changes. PT-OP-D Balance Start: 07/22/23:24 Freq: Status: Active Protocol: Document 07/24/23 13:35 MB (Rec: 07/24/23 14:39 MB [id number]) Balance Tests Other Other Balance Tests Performed Pt requires CGA to CUSTOMER SUPPORT ASSOCIATE for weight shifting and changing foot position for dynamic standing balance today PT-OP-G Mobility & Gait Start: 07/22/23 13:24 Freq: Status: Active Protocol: Document 07/24/23 13:35 MB (Rec: 07/24/23 14:39 MB [id number]) OP Gait Assessment Comments Gait Comments Pt requires superv to SBA for gait without AD (pt does not bring AD into clinic) and she presents with step-to gait, right and then left LE and she has a lateral component to stepping and gait and gait is slow. Left hand and UE draws into flexion positioning with stepping. PT-OP-K Range of Motion Start: 07/22/23:24 Freq: Status: Active Protocol: Document 07/24/23 13:35 MB (Rec: 07/24/23 14:39 MB [id number]) Hip Goniometric Range of Motion Hip ROM Limitations Comments R LE ROM and MMT is normal/ functional Ankle and Foot Goniometric Range of Motion Ankle and Foot ROM Limitations Comments L foot and ankle with tone changes. Pt has little toe movement and trace ankle movement and her ankle is rigid with attempted PROM. Pt with occ strong clonus LLE with adjusting AFO. R knee flexion and extension are 4/5 and hip flexion and abduction are 2+/5 in sitting. PT-OP-Q Treatments Start: 07/22/23:24 Freq: Status: Active Protocol: Document 08/05/23 13:49 NBM (Rec: 08/05/23 15:08 NBM [id number]) Cardio Equipment Recumbent Elliptical (Biodex) Duration (Minutes) 5 Resistance 1>2 last minute Seat Position 7 (6 seen) Other visual target to keep >30 RPMs Therapeutic Exercises Standing Exercises Calf Stretch Standing Exercise Name Lunge position Side bilateral Equipment Used handrail Reps/Minutes x30s ea Comments cues for neutral foot position , larger step for gentle pull Neuro Re-Education Treatment Balance Activities Balance Details WBOS, NBOS, staggered, semi- tandem, tandem Equipment balloon, Gait Belt Comments Eyes Open/Eyes closed: WBOS, NBOS EC challenging and not tolerated >2-3s head turns/nods: WBOS, NBOS balloon volleyball: WBOS, NBOS , staggered, semi-tandem, tandem. CUSTOMER SUPPORT ASSOCIATE x2 to assume tandem position bilaterally; tandem LLE fwd most challenging w/ two LOB to left and appropriate stepping strategy for self-recovery. SL Details Single Leg stance lyndsay Surface firm Equipment stomp rocket, Gait belt Reps/Duration x10 ea Comments 3s countdown too challenging> no countdown. VC for high knee. Progressive distance w/ repetitions: pt able to hit vertical mat ~5ft w/ RLE, ~ 3. 5ft w/ LLE Self-Care/Home Management Treatment Education Patient Education Joint Protection,Safety Caregiver Education Discussed w/ dad to remind pt to don AFO in-home before getting out of bed to help prevent L foot twisting. Other Education -Pt reports L foot twisting frequently happens after lying in bed and getting up without AFO, which is kept next to bed. Discussion with pt re: using AFO in home when getting up from bed to avoid L foot twisting, and to ask her dad to remind her to use AFO when getting up (discussed w/ Dad end of session). -Discussion w/ pt about providing future HEP handout to facilitate compliance as pt easily forgets. PT-OP-T Assessment and Plan Start: 07/22/23 13:24 Freq: Status: Active Protocol: Document 08/05/23 13:49 [facility] (Rec: 08/05/23 15:08 [facility] [id number]) Physical Therapy Assessment Impairments Impairments Activity Tolerance,Balance, Coordination,Edema,Functional Activities,Functional Mobility ,Gait,Integument,Pain,Posture, ROM,Sensation,Soft Tissue Mobility,Strength,Transfers Goals 3 Impairment High fall risk [facility] Goal (LTG) Pt will score WNLs on Ventura or Tinetti balance tests to decrease fall risk at home. LTG Duration 8 weeks 2 Impairment Falls Efficacy Scale- International score 44/64 [facility] Of Home Health Goal (LTG) Pt will score no more than 30/ 64 on Falls Efficacy Scale to reflect decreased fear of falling. LTG Duration 8 weeks 1 Impairment History of falls Administrator Of Home Health Goal (LTG) Pt will deny falls for one month to increase I and safety . LTG Duration 8 weeks Assessment Summary Assessment Pt presents in L AFO without AD. Treatment focus on balance and education. Mona is most challenged with balance with eyes closed and does not tolerate more than 2-3s in NBOS. She also requires bilateral CUSTOMER SUPPORT ASSOCIATE to assume full tandem bilaterally, most challenged w/ LLE fwd w/ two LOB to left and appropriate stepping strategy for self- recovery; no other LOB with this activity. Pt demonstrates progressive distance w/ repetitions of stomp rocket for single leg balance: pt is able to hit vertical mat ~5ft w/ RLE, ~ 3.5ft w/ LLE but requires cues for high knee. Pt reports L foot twisting frequently happens after lying in bed and getting up without AFO, which is kept next to bed. Discussion with pt and dad end of session re: using AFO in home when getting up from bed to avoid L foot twisting. Standing calf stretch considered for HEP but pt declines for HEP to be issued today; discussed w/ pt about providing future HEP handout to facilitate compliance as pt easily forgets. Physical Therapy Plan Frequency and Duration Frequency of Treatment 1-2x/week Duration of treatment (weeks) 8 Plan of Care Start Date 07/24/23 Plan of Care End Date 09/30/23 Therapeutic Interventions Therapeutic Interventions Balance Training,Gait Training ,Home Exercise Program,Manual Therapy,Neuromuscular Re- education,Orthotic/Prosthetic Management,Patient/Caregiver Education,Self-Care/Home Management,Sensory Integration ,Soft Tissue Mobilization, Taping,Therapeutic Activities, Therapeutic Exercises, Vestibular Rehabilitation Modalities Cold Pack/Ice Massage,Hot Packs Next Visit Focus/Plan Next Note Type Treatment Note Next Visit Plan Initiate NuStep, LE and balance exercises, will try to add game type activities to exercises
--- NOTE | 2023-08-09 16:07 | PT.OTN ---
Current Diagnoses Pain in right ankle and joints of right foot (08/09/23) Iliotibial band syndrome, unspecified leg (08/09/23) Pain in right foot (08/09/23) Pain in left foot (08/09/23) Other abnormalities of gait and mobility (08/09/23) Other symptoms and signs involving the musculoskeletal system (08/09/23) Physical Therapy Treatment Note PT-OP-A Visit Information Start: 07/22/23 13:24 Freq: Status: Active Protocol: Document 08/09/23 14:36 NBM (Rec: 08/09/23 15:22 NBM [id number]) Out-Patient Physical Therapy Visit Information Visit Information Visit Type Treatment Note Visit Start Time 14:36 Visit Stop Time 15:22 Visit Number 3 Number of MOTOR COACH BUS DRIVER Visits 2 PT-OP-B Current Condition Start: 07/22/23 13:24 Freq: Status: Active Protocol: Document 07/24/23 13:35 MB (Rec: 07/24/23 14:39 MB [id number]) Current Condition History of Current Condition Onset Date Several months ago Current Complaints Pt reports constantly twisting her left foot History of Current Condition Pt lives with her dad. There are several steps to enter home and a ramp. There is a railing at the steps. Pt constantly twists her left foot in the house when she doesn't wear her AFO in the house. Pt is not using AD in the house. Pt's mom in May 2022 and her dog in September of 2022. She then had her first seizure in many years in November of 2022. Pt has a cane, walker, gait systems trainer, three pronged cane, electric and manual w/c. Pt states that she has left greater than right foot pain and she would like to work on her foot pain and her balance. She has a history of left sided weakness since she was 18 months old. She had two brain surgeries: one in 2014 and one in 2019. They were for the seizures. The left side got weaker since then. She also feels weaker since the seizure on November 19, 2022. Her left foot has been swollen a lot. She does not wear compression or use ice. Treatment Goals Patient/Caregiver Goals To improve balance and foot pain. PT-OP-C Subjective Start: 07/22/23 13:24 Freq: Status: Active Protocol: Document 08/09/23 14:36 NBM (Rec: 08/09/23 15:22 NBM [id number]) OP-PT Subjective Patient Comments Patient Comments Mona reports she did not sleep well last night because she was up thinking about her mom who passed. This affects her sleep a lot of times. She' s tired today. She reports foot twisting isn't happening too much because she's mostly laying in bed, and no new falls. PT-OP-D Balance Start: 07/22/23 13:24 Freq: Status: Active Protocol: Document 07/24/23 13:35 MB (Rec: 07/24/23 14:39 MB [id number]) Balance Tests Other Other Balance Tests Performed Pt requires CGA to PASSENGER ELEVATOR OPERATOR for weight shifting and changing foot position for dynamic standing balance today PT-OP-G Mobility & Gait Start: 07/22/23 13:24 Freq: Status: Active Protocol: Document 07/24/23 13:35 MB (Rec: 07/24/23 14:39 MB [id number]) OP Gait Assessment Comments Gait Comments Pt requires superv to SBA for gait without AD (pt does not bring AD into clinic) and she presents with step-to gait, right and then left LE and she has a lateral component to stepping and gait and gait is slow. Left hand and UE draws into flexion positioning with stepping. PT-OP-K Range of Motion Start: 07/22/23 13:24 Freq: Status: Active Protocol: Document 07/24/23 13:35 MB (Rec: 07/24/23 14:39 MB [id number]) Hip Goniometric Range of Motion Hip ROM Limitations Comments R LE ROM and MMT is normal/ functional Ankle and Foot Goniometric Range of Motion Ankle and Foot ROM Limitations Comments L foot and ankle with tone changes. Pt has little toe movement and trace ankle movement and her ankle is rigid with attempted PROM. Pt with occ strong clonus LLE with adjusting AFO. R knee flexion and extension are 4/5 and hip flexion and abduction are 2+/5 in sitting. PT-OP-Q Treatments Start: 07/22/23 13:24 Freq: Status: Active Protocol: Document 08/09/23 14:36 NBM (Rec: 08/09/23 15:22 NBM [id number]) Therapeutic Exercises Sitting Exercises Dorsiflexion Sitting Exercise Name Tb held by pt Side right Resistance Lvl 1 Tb Equipment Used standard mesh chair Reps/Minutes 2x10 Comments added to HEP Plantarflexion Sitting Exercise Name Tb held by MOTOR COACH BUS DRIVER Side right Resistance Lvl 1 Tb Equipment Used standard mesh chair Reps/Minutes 2x10 Comments added to HEP Hamstring Stretch Side bilateral Resistance seated mesh chair Reps/Minutes x45s ea Comments cues for scooting edge of chair - added to HEP marching Sitting Exercise Name alternating Side bilateral Equipment Used seated mesh chair Reps/Minutes 2x10 Comments added to HEP hip ER Sitting Exercise Name clamshell Side bilateral Resistance Lvl1 Tb Equipment Used standard mesh chair Reps/Minutes 2x10 Comments added to HEP hip adduction Sitting Exercise Name ball squeeze Side bilateral Equipment Used standard mesh chair, blue/ white ball Reps/Minutes 2x10 Comments added to HEP Standing Exercises Hamstring curl Side bilateral Equipment Used handrail Reps/Minutes x10 hip extension Standing Exercise Name attempted, pt unable to maintain straight LE Equipment Used handrail hip abduction Side bilateral Equipment Used handrail Calf Stretch Standing Exercise Name Lunge position Side bilateral Equipment Used handrail Reps/Minutes x60 ea Comments cues for neutral foot position , larger step for gentle pull PT-OP-T Assessment and Plan Start: 07/22/23 13:24 Freq: Status: Active Protocol: Document 08/09/23 14:36 NBM (Rec: 08/09/23 15:22 [facility] [id number]) Physical Therapy Assessment Goals 3 Impairment High fall risk [place] Goal (LTG) Pt will score WNLs on Ventura or Tinetti balance tests to decrease fall risk at home. LTG Duration 8 weeks 2 Impairment Falls Efficacy Scale- International score 44/64 [place] Goal (LTG) Pt will score no more than 30/ 64 on Falls Efficacy Scale to reflect decreased fear of falling. LTG Duration 8 weeks 1 Impairment History of falls [place] Goal (LTG) Pt will deny falls for one month to increase I and safety . LTG Duration 8 weeks Assessment Summary Assessment Mona presents with L AFO donned and no AD. She expresses decreased activity at home and unlikely or unable to perform standing HEP due to limited space, so HEP issued today is focused on supine and seated TherEx - 2 handouts (one for roommate to help w/ reading and performing per pt request) and Level 1 Therband given. Physical Therapy Plan Frequency and Duration Frequency of Treatment 1-2x/week Duration of treatment (weeks) 8 Plan of Care Start Date 07/24/23 Plan of Care End Date 09/30/23 Therapeutic Interventions Therapeutic Interventions Balance Training,Gait Training ,Home Exercise Program,Manual Therapy,Neuromuscular Re- education,Orthotic/Prosthetic Management,Patient/Caregiver Education,Self-Care/Home Management,Sensory Integration ,Soft Tissue Mobilization, Taping,Therapeutic Activities, Therapeutic Exercises, Vestibular Rehabilitation Modalities Cold Pack/Ice Massage,Hot Packs Next Visit Focus/Plan Next Note Type Treatment Note Next Visit Plan Initiate NuStep, LE and balance exercises, will try to add game type activities to exercises
--- NOTE | 2023-08-20 15:14 | PT.OTN ---
Current Diagnoses Pain in right ankle and joints of right foot (08/20/23) Iliotibial band syndrome, unspecified leg (08/20/23) Pain in right foot (08/20/23) Pain in left foot (08/20/23) Other abnormalities of gait and mobility (08/20/23) Other symptoms and signs involving the musculoskeletal system (08/20/23) Physical Therapy Treatment Note PT-OP-A Visit Information Start: 07/22/23 13:24 Freq: Status: Active Protocol: Document 08/20/23 11:35 NBM (Rec: 08/20/23 12:19 NBM [id number]) Out-Patient Physical Therapy Visit Information Visit Information Visit Type Treatment Note Visit Note FOREST PATHOLOGIST late getting pt. Visit Start Time 11:30 Visit Stop Time 12:10 Visit Number 4 Number of FOREST PATHOLOGIST Visits 3 PT-OP-B Current Condition Start: 07/22/23 13:24 Freq: Status: Active Protocol: Document 07/24/23 13:35 MB (Rec: 07/24/23 14:39 MB [id number]) Current Condition History of Current Condition Onset Date Several months ago Current Complaints Pt reports constantly twisting her left foot History of Current Condition Pt lives with her dad. There are several steps to enter home and a ramp. There is a railing at the steps. Pt constantly twists her left foot in the house when she doesn't wear her AFO in the house. Pt is not using AD in the house. Pt's mom in May 2022 and her dog in September of 2022. She then had her first seizure in many years in November of 2022. Pt has a cane, walker, gait education trainer, three pronged cane, electric and manual w/c. Pt states that she has left greater than right foot pain and she would like to work on her foot pain and her balance. She has a history of left sided weakness since she was 18 months old. She had two brain surgeries: one in 2013 and one in 2018. They were for the seizures. The left side got weaker since then. She also feels weaker since the seizure on November 19, 2022. Her left foot has been swollen a lot. She does not wear compression or use ice. Treatment Goals Patient/Caregiver Goals To improve balance and foot pain. PT-OP-C Subjective Start: 07/22/23 13:24 Freq: Status: Active Protocol: Document 08/20/23 11:35 NBM (Rec: 08/20/23 12:19 NBM [id number]) OP-PT Subjective Patient Comments Patient Comments Mona reports she slept ok last night. Her roommate hasn' t helped her yet with her home exercises. She's been staying with her aunt and grandparents since last weekend and her aunt said she will help her but hasn't yet. She wants to do the seated warmup. She tripped a couple of times about 7 last night when they were going out to dinner without AFO on, but no new falls. She has her AFO but doesn't wear it much at home. PT-OP-D Balance Start: 07/22/23 13:24 Freq: Status: Active Protocol: Document 07/24/23 13:35 MB (Rec: 07/24/23 14:39 MB [id number]) Balance Tests Other Other Balance Tests Performed Pt requires CGA to STATIONARY ENGINEER SUPERVISOR for weight shifting and changing foot position for dynamic standing balance today PT-OP-G Mobility & Gait Start: 07/22/23 13:24 Freq: Status: Active Protocol: Document 07/24/23 13:35 MB (Rec: 07/24/23 14:39 MB [id number]) OP Gait Assessment Comments Gait Comments Pt requires superv to SBA for gait without AD (pt does not bring AD into clinic) and she presents with step-to gait, right and then left LE and she has a lateral component to stepping and gait and gait is slow. Left hand and UE draws into flexion positioning with stepping. PT-OP-K Range of Motion Start: 07/22/23 13:24 Freq: Status: Active Protocol: Document 07/24/23 13:35 MB (Rec: 07/24/23 14:39 MB [id number]) Hip Goniometric Range of Motion Hip ROM Limitations Comments R LE ROM and MMT is normal/ functional Ankle and Foot Goniometric Range of Motion Ankle and Foot ROM Limitations Comments L foot and ankle with tone changes. Pt has little toe movement and trace ankle movement and her ankle is rigid with attempted PROM. Pt with occ strong clonus LLE with adjusting AFO. R knee flexion and extension are 4/5 and hip flexion and abduction are 2+/5 in sitting. PT-OP-Q Treatments Start: 07/22/23 13:24 Freq: Status: Active Protocol: Document 08/20/23 11:35 NBM (Rec: 08/20/23 12:19 NBM [id number]) Cardio Equipment Recumbent Elliptical (Biodex) Duration (Minutes) 5 Resistance 2 Seat Position 7 (6 seen) Other visual target to keep >30 RPMs Therapeutic Exercises Sitting Exercises Dorsiflexion Sitting Exercise Name Tb held by pt Side right Resistance Lvl 1 Tb Equipment Used standard mesh chair Reps/Minutes 2x10 Comments HEP Plantarflexion Sitting Exercise Name Tb held by FOREST PATHOLOGIST Side right Resistance Lvl 1 Tb Equipment Used standard mesh chair Reps/Minutes 2x10 Comments added to HEP marching Sitting Exercise Name alternating Side bilateral Resistance (Lvl 1 Tb above knees attempted - too challenging) Equipment Used seated mesh chair Reps/Minutes 2x10 Comments HEP hip ER Sitting Exercise Name clamshell Side bilateral Resistance Lvl1 Tb Equipment Used standard mesh chair Reps/Minutes 2x10 Comments HEP hip adduction Sitting Exercise Name ball squeeze Side bilateral Equipment Used standard mesh chair, blue/ white ball Reps/Minutes 2x15 Comments added to HEP Standing Exercises Hamstring curl Side bilateral Equipment Used handrail Reps/Minutes x10 hip abduction Side bilateral Equipment Used handrail Reps/Minutes x10 Comments L>R weakness Self-Care/Home Management Treatment Education Patient Education Joint Protection,Safety Caregiver Education Discussion w/ aunt Other Education Discussed AFO wear and pt indicates the AFO is uncomfortable to wear and has hard plastic under. The bottom of it scrapes on the floor if she doesn't have shoes on, but she doesn't have shoes that fit it. She needs two different sizes to fit the L AFO and her R foot. PT-OP-T Assessment and Plan Start: 07/22/23 13:24 Freq: Status: Active Protocol: Document 08/20/23 11:35 NBM (Rec: 08/20/23 12:19 [facility] [id number]) Physical Therapy Assessment Impairments Impairments Activity Tolerance,Balance, Coordination,Edema,Functional Activities,Functional Mobility ,Gait,Integument,Pain,Posture, ROM,Sensation,Soft Tissue Mobility,Strength,Transfers Goals 3 Impairment High fall risk Prison Goal (LTG) Pt will score WNLs on Ventura or Tinetti balance tests to decrease fall risk at home. LTG Duration 8 weeks 2 Impairment Falls Efficacy Scale- International score 44/64 Prison Goal (LTG) Pt will score no more than 30/ 64 on Falls Efficacy Scale to reflect decreased fear of falling. LTG Duration 8 weeks 1 Impairment History of falls Sales Negotiator Goal (LTG) Pt will deny falls for one month to increase I and safety . LTG Duration 8 weeks Assessment Summary Assessment Mona presents without L AFO today. Treatment focus on HEP review and education. Pt is able to complete HEP with correct form and minimal cueing but expresses barriers to completion at home including space and depression . Discussion w/ pt re: barriers to AFO use including shoe fit and cost of shoe and comfort of AFO. Physical Therapy Plan Frequency and Duration Frequency of Treatment 1-2x/week Duration of treatment (weeks) 8 Plan of Care Start Date 07/24/23 Plan of Care End Date 09/30/23 Therapeutic Interventions Therapeutic Interventions Balance Training,Gait Training ,Home Exercise Program,Manual Therapy,Neuromuscular Re- education,Orthotic/Prosthetic Management,Patient/Caregiver Education,Self-Care/Home Management,Sensory Integration ,Soft Tissue Mobilization, Taping,Therapeutic Activities, Therapeutic Exercises, Vestibular Rehabilitation Modalities Cold Pack/Ice Massage,Hot Packs Next Visit Focus/Plan Next Note Type Treatment Note Next Visit Plan Initiate NuStep, LE and balance exercises, will try to add game type activities to exercises
--- NOTE | 2023-08-28 15:55 | PT.OTN ---
Current Diagnoses Pain in right ankle and joints of right foot (08/28/23) Iliotibial band syndrome, unspecified leg (08/28/23) Pain in right foot (08/28/23) Pain in left foot (08/28/23) Other abnormalities of gait and mobility (08/28/23) Other symptoms and signs involving the musculoskeletal system (08/28/23) Physical Therapy Treatment Note PT-OP-A Visit Information Start: 07/22/23 13:24 Freq: Status: Active Protocol: Document 08/28/23 15:19 MB (Rec: 08/28/23 15:55 MB [id number]) Out-Patient Physical Therapy Visit Information Visit Information Visit Type Treatment Note Visit Start Time 15:19 Visit Stop Time 15:59 Visit Number 5 Number of ANIMAL HUSBANDRY TEACHER Visits 0 PT-OP-B Current Condition Start: 07/22/23 13:24 Freq: Status: Active Protocol: Document 07/24/23 13:35 MB (Rec: 07/24/23 14:39 MB [id number]) Current Condition History of Current Condition Onset Date Several months ago Current Complaints Pt reports constantly twisting her left foot History of Current Condition Pt lives with her dad. There are several steps to enter home and a ramp. There is a railing at the steps. Pt constantly twists her left foot in the house when she doesn't wear her AFO in the house. Pt is not using AD in the house. Pt's mom in May 2022 and her dog in September of 2022. She then had her first seizure in many years in November of 2022. Pt has a cane, walker, gait adjunct trainer, three pronged cane, electric and manual w/c. Pt states that she has left greater than right foot pain and she would like to work on her foot pain and her balance. She has a history of left sided weakness since she was 18 months old. She had two brain surgeries: one in 2014 and one in 2019. They were for the seizures. The left side got weaker since then. She also feels weaker since the seizure on November 19, 2022. Her left foot has been swollen a lot. She does not wear compression or use ice. Treatment Goals Patient/Caregiver Goals To improve balance and foot pain. PT-OP-C Subjective Start: 07/22/23 13:24 Freq: Status: Active Protocol: Document 08/28/23 15:19 MB (Rec: 08/28/23 15:55 MB [id number]) OP-PT Subjective Patient Comments Patient Comments Pt states that her AFO is no longer bothering her. She just needs shoes that fit both feet. She usually wears a 6.5 and is wearing size 9 on both feet to manage her AFO. She got her AFO here in town. When her aunt visits again, she will take her to a special shoe store for orthotics. PT-OP-D Balance Start: 07/22/23 13:24 Freq: Status: Active Protocol: Document 07/24/23 13:35 MB (Rec: 07/24/23 14:39 MB [id number]) Balance Tests Other Other Balance Tests Performed Pt requires CGA to LOCOMOTIVE OBSERVER for weight shifting and changing foot position for dynamic standing balance today PT-OP-G Mobility & Gait Start: 07/22/23 13:24 Freq: Status: Active Protocol: Document 07/24/23 13:35 MB (Rec: 07/24/23 14:39 MB [id number]) OP Gait Assessment Comments Gait Comments Pt requires superv to SBA for gait without AD (pt does not bring AD into clinic) and she presents with step-to gait, right and then left LE and she has a lateral component to stepping and gait and gait is slow. Left hand and UE draws into flexion positioning with stepping. PT-OP-K Range of Motion Start: 07/22/23 13:24 Freq: Status: Active Protocol: Document 07/24/23 13:35 MB (Rec: 07/24/23 14:39 MB [id number]) Hip Goniometric Range of Motion Hip ROM Limitations Comments R LE ROM and MMT is normal/ functional Ankle and Foot Goniometric Range of Motion Ankle and Foot ROM Limitations Comments L foot and ankle with tone changes. Pt has little toe movement and trace ankle movement and her ankle is rigid with attempted PROM. Pt with occ strong clonus LLE with adjusting AFO. R knee flexion and extension are 4/5 and hip flexion and abduction are 2+/5 in sitting. PT-OP-Q Treatments Start: 07/22/23 13:24 Freq: Status: Active Protocol: Document 08/28/23 15:19 MB (Rec: 08/28/23 15:55 MB [id number]) Therapeutic Exercises Sitting Exercises STS Resistance Level 1 TB looped above knees Reps/Minutes 3 sets 30 sec Comments 8 reps, 9 reps, 9 reps Dorsiflexion Sitting Exercise Name TB held by pt Side right Resistance Level 1 band looped fully around foot Reps/Minutes 3x10 Comments In HEP Plantarflexion Sitting Exercise Name TB held by pt Side right Resistance Level 1 band looped fully around foot Reps/Minutes 3x10 Comments In HEP, leg more extended and pressing band down Hamstring Stretch Side bilateral Reps/Minutes 45 sec each Comments Cues to lean forward and keep leg straighter marching Sitting Exercise Name Alternating Side bilateral Resistance Level 1 TB tied above knees Reps/Minutes 3x10 Comments In HEP hip ER Sitting Exercise Name Clam, feet together Side bilateral Resistance Level 1 TB tied in loop above knees Reps/Minutes 3x10 Comments In HEP Neuro Re-Education Treatment Balance Activities Balance Comments Tried SLS for bringing opposite leg out to side for abduction and pt will only perform tapping. Pt has low participation/tolerance with attempted SLS both legs, repeated trials and stands up to 3 sec on right leg x3 and no SLS on left leg. Romberg with EO is fine and tried with eyes closed and pt opens eye after 7 sec PT-OP-T Assessment and Plan Start: 07/22/23 13:24 Freq: Status: Active Protocol: Document 08/28/23 15:19 MB (Rec: 08/28/23 15:55 MB [id number]) Physical Therapy Assessment Impairments Impairments Activity Tolerance,Balance, Coordination,Edema,Functional Activities,Functional Mobility ,Gait,Integument,Pain,Posture, ROM,Sensation,Soft Tissue Mobility,Strength,Transfers Goals 3 Impairment High fall risk Belt Sander Goal (LTG) Pt will score WNLs on Ventura or Tinetti balance tests to decrease fall risk at home. LTG Duration 8 weeks 2 Impairment Falls Efficacy Scale- International score 44/64 Long-Term Goal (LTG) Pt will score no more than 30/ 64 on Falls Efficacy Scale to reflect decreased fear of falling. LTG Duration 8 weeks 1 Impairment History of falls Long-Term Goal (LTG) Pt will deny falls for one month to increase I and safety . LTG Duration 8 weeks Assessment Summary Assessment Reviewed HEP and unsure is pt is performing at home. Pt is hypoverbal and does not recall exercises. Added STS with band around legs. Attempted to add a balance exercise and pt has low participation. Two more treatments and then d/c PT d/t unsure if PT is making much of a change for pt. Compliance and home situation (decreased support at home) are biggest barriers. Physical Therapy Plan Frequency and Duration Frequency of Treatment 1-2x/week Duration of treatment (weeks) 8 Plan of Care Start Date 07/24/23 Plan of Care End Date 09/30/23 Therapeutic Interventions Therapeutic Interventions Balance Training,Gait Training ,Home Exercise Program,Manual Therapy,Neuromuscular Re- education,Orthotic/Prosthetic Management,Patient/Caregiver Education,Self-Care/Home Management,Sensory Integration ,Soft Tissue Mobilization, Taping,Therapeutic Activities, Therapeutic Exercises, Vestibular Rehabilitation Modalities Cold Pack/Ice Massage,Hot Packs Next Visit Focus/Plan Next Note Type Treatment Note Next Visit Plan Try Romberg with EC and SLS on right leg with back to corner and chair in front or try to add some safe balance exercise for home for pt
--- NOTE | 2023-09-11 14:29 | PT.OTN ---
Current Diagnoses Pain in right ankle and joints of right foot (09/11/23) Iliotibial band syndrome, unspecified leg (09/11/23) Pain in right foot (09/11/23) Pain in left foot (09/11/23) Other abnormalities of gait and mobility (09/11/23) Other symptoms and signs involving the musculoskeletal system (09/11/23) Physical Therapy Treatment Note PT-OP-A Visit Information Start: 07/22/23 13:24 Freq: Status: Active Protocol: Document 09/11/23 13:57 MB (Rec: 09/11/23 14:28 MB [id number]) Out-Patient Physical Therapy Visit Information Visit Information Visit Type Treatment Note Visit Note MEDICAL RADIATION DOSIMETRIST states that pt attended last appointment and reviewed with PT and no note yet available, will number this as treatment #7. Pt arrives 12 minutes late to appointment. Visit Start Time 13:57 Visit Stop Time 14:30 Visit Number 7 Number of MEDICAL RADIATION DOSIMETRIST Visits 0 PT-OP-B Current Condition Start: 07/22/23 13:24 Freq: Status: Active Protocol: Document 07/24/23 13:35 MB (Rec: 07/24/23 14:39 MB [id number]) Current Condition History of Current Condition Onset Date Several months ago Current Complaints Pt reports constantly twisting her left foot History of Current Condition Pt lives with her dad. There are several steps to enter home and a ramp. There is a railing at the steps. Pt constantly twists her left foot in the house when she doesn't wear her AFO in the house. Pt is not using AD in the house. Pt's mom in May 2022 and her dog in September of 2022. She then had her first seizure in many years in November of 2022. Pt has a cane, walker, gait dolphin trainer, three pronged cane, electric and manual w/c. Pt states that she has left greater than right foot pain and she would like to work on her foot pain and her balance. She has a history of left sided weakness since she was 18 months old. She had two brain surgeries: one in 2013 and one in 2018. They were for the seizures. The left side got weaker since then. She also feels weaker since the seizure on November 19, 2022. Her left foot has been swollen a lot. She does not wear compression or use ice. Treatment Goals Patient/Caregiver Goals To improve balance and foot pain. PT-OP-C Subjective Start: 07/22/23:24 Freq: Status: Active Protocol: Document 09/11/23 13:57 MB (Rec: 09/11/23 14:28 MB [id number]) OP-PT Subjective Patient Comments Patient Comments Pt has no news. Pt states she tried to work on exercises over the past week and it just depends on who can help her at home. Patient Questionnaires Other Questionnaire Name and Score FES score is 55/69 PT-OP-D Balance Start: 07/22/23:24 Freq: Status: Active Protocol: Document 07/24/23 13:35 MB (Rec: 07/24/23 14:39 MB [id number]) Balance Tests Other Other Balance Tests Performed Pt requires CGA to YOUTH OFFICER for weight shifting and changing foot position for dynamic standing balance today PT-OP-G Mobility & Gait Start: 07/22/23:24 Freq: Status: Active Protocol: Document 07/24/23 13:35 MB (Rec: 07/24/23 14:39 MB [id number]) OP Gait Assessment Comments Gait Comments Pt requires superv to SBA for gait without AD (pt does not bring AD into clinic) and she presents with step-to gait, right and then left LE and she has a lateral component to stepping and gait and gait is slow. Left hand and UE draws into flexion positioning with stepping. PT-OP-K Range of Motion Start: 07/22/23:24 Freq: Status: Active Protocol: Document 07/24/23 13:35 MB (Rec: 07/24/23 14:39 MB [id number]) Hip Goniometric Range of Motion Hip ROM Limitations Comments R LE ROM and MMT is normal/ functional Ankle and Foot Goniometric Range of Motion Ankle and Foot ROM Limitations Comments L foot and ankle with tone changes. Pt has little toe movement and trace ankle movement and her ankle is rigid with attempted PROM. Pt with occ strong clonus LLE with adjusting AFO. R knee flexion and extension are 4/5 and hip flexion and abduction are 2+/5 in sitting. PT-OP-Q Treatments Start: 07/22/23 13:24 Freq: Status: Active Protocol: Document 09/11/23 13:57 MB (Rec: 09/11/23 14:28 MB [id number]) Therapeutic Exercises Sitting Exercises STS Resistance Level 1 TB looped above knees Reps/Minutes 3 sets 30 sec Comments 7 reps, 8 reps, 9 reps marching Sitting Exercise Name Alternating Side bilateral Resistance Level 1 TB tied above knees Reps/Minutes 3x10 Comments In HEP, cues for big lifts hip ER Sitting Exercise Name Clam, feet together Side bilateral Resistance Level 1 TB tied in loop above knees Reps/Minutes 3x10 Comments In HEP, little left leg movement Neuro Re-Education Treatment Balance Activities bonilla Comments See goals for Bonilla score today , pt is at increased risk for falling Self-Care/Home Management Treatment Education Other Education Encouragement to con't HEP at home PT-OP-T Assessment and Plan Start: 07/22/23 13:24 Freq: Status: Active Protocol: Document 09/11/23 13:57 MB (Rec: 09/11/23 14:28 [id number]) Physical Therapy Assessment Impairments Impairments Activity Tolerance,Balance, Coordination,Edema,Functional Activities,Functional Mobility ,Gait,Integument,Pain,Posture, ROM,Sensation,Soft Tissue Mobility,Strength,Transfers Goals 3 Impairment High fall risk Residential Goal (LTG) Pt will score WNLs on Bonilla or Tinetti balance tests to decrease fall risk at home. 09/11/23: Bonilla balance score is 31/56 and reflects increased risk for falls and recommendation for pt to walk with AD. Pt has not been compliant with AD education in previous treatment dates LTG Duration 8 weeks 2 Impairment Falls Efficacy Scale- International score 44/64 Displayer Merchandise Goal (LTG) Pt will score no more than 30/ 64 on Falls Efficacy Scale to reflect decreased fear of falling. 09/11/23: Goal is not met and pt reports a little more concern for falling lately. Her score is 55/64 on discharge LTG Duration 8 weeks 1 Impairment History of falls Residential Goal (LTG) Pt will deny falls for one month to increase I and safety . 09/11/23: Pt reports at least one fall in the past month in her room LTG Duration 8 weeks Assessment Summary Assessment Pt is a poor historian and is unable to state if she is able to perform her exercises or not at home. She has had at least one fall in the past month and needs assistance at home for functional tasks as well as exercises. Her FES score has not improved and has actually gotten worse since the evaluation. Pt's challenge with getting to PT and decreased exercise performance have been barriers to PT. This is patient's last treatment and did review some of her HEP. Will d/c PT as pt has not progressed much towards PT goals.
== END 2023-09-12 13:03 | disposition home or self-care (01) ==
LOC: PHYS 13:45
PROVIDERS: Family Provider Family Medicine; PCP Family Medicine; Referring Provider Family Medicine; Visit Provider Family Medicine
DX: R29.898 Other symptoms and signs involving the musculoskeletal system (principal); R26.89 Other abnormalities of gait and mobility; M79.672 Pain in left foot; M79.671 Pain in right foot; M25.571 Pain in right ankle and joints of right foot; M76.30 Iliotibial band syndrome, unspecified leg
CPT/HCPCS: 97110; 97112; 97162; 97535

== ENCOUNTER → 2023-09-23 15:59 | Outpatient (CLI) | payer OTHER, MEDICAID, SELFPAY ==
[2023-09-23 17:48] LABS: Add Manual Diff / Slide Review NO; Basophils Absolute Auto 100 /uL (0-100); Basophils Percent Auto 0.6 % (0-2); Eosinophils Absolute Auto 100 /uL (0-450); Eosinophils Percent Auto 1.4 % (2-4); Hematocrit 39.6 % (36-46); Hemoglobin 13.2 g/dL (12.0-16.0); Lymphocytes Absolute Auto 2200 /uL (1100-4500); Lymphocytes Percent Auto 26.2 % (25-40); Mean Corpuscular HGB Conc 33.3 % (30-36); Mean Corpuscular Hemoglobin 27.4 PG (26-34); Mean Corpuscular Volume 82.2 fL (80-100); Monocytes Absolute Auto 600 /uL (0-900); Monocytes Percent Auto 7.3 % (3-14); Neutrophils Absolute Auto 5300 /uL (1500-7000); Neutrophils Percent Auto 64.5 % (50-75); Platelet Count 349 X10^3/uL (150-400); Red Blood Cell Count 4.82 X10^6/uL (4.0-5.2); Red Cell Distribution Width 14.3 % (11.6-14.8); White Blood Cell Count 8.3 X10^3/uL (4.5-11.0)
[2023-09-23 18:02] LABS: BUN Creatinine Ratio 7.1 (6-22); Blood Urea Nitrogen 5 mg/dL (7-17); Calcium 9.2 mg/dL (8.4-10.2); Carbon Dioxide 28 mmol/L (22-32); Chloride 105 mmol/L (98-107); Estimated Glomerular Filt Rate > 60 mL/min (>60); Glucose 87 mg/dL (70-100); HEMOLYSIS < 15 (0-50); Potassium 4.2 mmol/L (3.4-5.1); Sodium 140 mmol/L (137-145)
[2023-09-23 18:15] LABS: Vitamin D 25 Hydroxy (D3) 14.3 ng/mL (30.0-100.0)
[2023-10-01 09:36] LABS: Oxcarbazepin, Trileptal 26 ug/mL (10-35)
== END ==
LOC: LAB 16:01
PROVIDERS: Family Provider Family Medicine; PCP Family Medicine; Referring Provider Psychiatry & Neurology Neurology; Visit Provider Psychiatry & Neurology Neurology
DX: G40.109 Localization-related (focal) (partial) symptomatic epilepsy and epileptic syndromes with simple partial seizures, not intractable, without status epilepticus (principal)
CPT/HCPCS: 36415; 80048; 80183; 82306; 85025

== ENCOUNTER → 2023-10-02 09:00 | Outpatient (CLI) | payer OTHER, MEDICAID, SELFPAY ==
--- NOTE | 2023-10-02 09:01 | DI.US.S_ITS ---
LIMITED ULTRASOUND OF LEFT BREAST: 10/02/2023 CLINICAL: Area skin discoloration x months. No palp. BRCA2. Fam hx brst ca. No prior exams were available for comparison. Color flow and real-time ultrasound of the left breast 5 o'clock region were performed. Ratliff scale images of the real-time examination were reviewed. There is a 0.9 cm x 0.7 cm x 0.2 cm oval cyst just deep to the skin in the left breast at 5 o'clock posterior depth 10 cm from the nipple. This oval cyst is hypoechoic with a well-defined boundary. This correlates as palpated. Color flow imaging demonstrates that there is no vascularity present. IMPRESSION: BENIGN There is no sonographic evidence of malignancy. The 0.9 cm sebaceous cyst in the left breast is benign. Exam findings were conveyed to the patient. Patient is advised to monitor for significant change. Clinical follow-up as needed. This exam was interpreted at Station ID: [id number]. Electronically Signed By: Jimmy Zelaya M.D. [facility] [place]/:10/02/2023 09:40:18 letter sent: Normal Exam Ultrasound BI-RADS: 2 Benign
== END ==
LOC: US 09:00
PROVIDERS: Family Provider Family Medicine; PCP Family Medicine; Referring Provider Family Medicine; Visit Provider Family Medicine
DX: N60.82 Other benign mammary dysplasias of left breast (principal); N64.89 Other specified disorders of breast; Z84.81 Family history of carrier of genetic disease; Z80.3 Family history of malignant neoplasm of breast
CPT/HCPCS: 76642

== ENCOUNTER → 2023-10-04 16:22 | Outpatient (CLI) | payer OTHER, MEDICAID, SELFPAY | PROVIDERS: Family Provider Family Medicine; PCP Family Medicine; Visit Provider Nurse Practitioner Family | DX: J02.9 Acute pharyngitis, unspecified (principal) | CPT/HCPCS: 87070; 87880 ==

== ENCOUNTER 2023-10-24 13:00 | Outpatient (RCR) | payer OTHER, MEDICAID, SELFPAY ==
--- NOTE | 2023-08-12 16:00 | OT.OP.EVAL ---
Visit Care Team Role Provider Type Cirilo Bryan MD Attending Provider Physician Family Provider Primary Care Provider Referring Provider Specialty: Family Practice Address: [address] [place] [address], [place], [address] Email: [email or web address] Occupational Therapy Initial Evaluation OT Outpatient Adult Evaluation Start: 08/12/23 15:41 Freq: Status: Active Protocol: Document 08/12/23 15:41 AMS (Rec: 08/12/23 16:00 AMS [id number]) General Information - Adult Visit Number EVAL; 0/8 Plan of Care Dates 08/12/23 - 11/04/23 Insurance Information [employer]; EVAL CHARGE ONLY; 8 visits @ 3 units per visit Visit Start Time 13:00 Visit Stop Time 13:45 Treatment Setting Outpatient Care Note Type Initial Evaluation Identification Confirmed Yes Identification Confirmed By Self Goals Treatment Discussion re: meaningful/ functional activities. Skilled Nursing Goals 1. Mona will be modified independent with execution of home exercise program utilizing provided written and visual instructions from therapist. 2. Mona will be able to identify 2 to 3 adaptive pieces of equipment and/or modification and/or adaptive techniques that she could utilize in the home and/or within the community to support her engagement in meaningful activities. Assessment/Plan Treatment Assessment Mona is a 22 y.o. right hand dominant female referred to outpatient OT secondary to pain in both hands and hand dysfunction. Medical history is significant for depression, seizures, vision impairment, and 2 brain surgeries; she is on a anti-seizure medication. Mona resides in [place], [place] w/ her father and their roommate. She denies doing gymnastics in [place] given that she does not currently have a ride to and from the gymnasium/location. Mona reports spending most of her time in her own room watching tik tok and utube videos and occasionally listening to music on her personal cell phone and tablet . She states that there are currently 2 cats in the home in which she receives help with their care; the family is working w/ a employment trainer in order to identify potential therapy dog/seizure alert dog for Mona. She denies currently doing art or crafts. Mona receives help with cleaning her room and meal preparation; roommate helps with putting on L AFO. Mona is not wearing a hand/wrist L splint; her roommate also helps with showering, dressing and doing her hair. For bathing, she has a shower chair, 1 grab bar, a handheld shower head, and a long handled sponge. She has not yet tried to use a 2-handled back scrubber. QuickDASH UE Outcome Measure Score = 68.18. Report of 2 out of 10 on pain scale relative to volar and dorsal surfaces of L wrist; discomfort is inconsistent in presentation 'random' w/ ' twisting' motions. Demonstrated touching of L hand to top of head/touch of L shoulder, w/ inability touching lower back, full forearm pronation, neutral forearm supination, full elbow ext, WFL elbow flexion. Increased reliance on R UE; tendency to position L hand in fisted position. Opposed L thumb to 4th digit pad. 12.0# of force L lateral abrams pinch vs 16.0# of force R lateral abrams pinch; 6.5# of force L tip pinch vs 14.0# of force R tip pinch; 9.0# of force L 3-jaw pinch vs 20.0# of force R 3- jaw pinch. At time of evaluation, Mona was unable to identify specific functional goals that she would like to work on. Thus, further discussion is needed in order to establish meaningful goals that are client specific. Length of treatment (weeks) 12 Plan of Care Start Date 08/12/23 Plan of Care End Date 11/04/23 Treatment Frequency Once a Week Therapeutic Contents Active Range of Motion, Adaptive Equipment Education, Functional Activities,Home Exercise Program,Joint Protection,Manual Therapy, Education,Neurodevelopment Treatment,Neuromuscular Re- Education,Self-Care,Stretching /Flexibility Activities, Therapeutic Activities, Therapeutic Exercises,Sensory Re-education
--- NOTE | 2023-08-19 15:36 | OT.OP.TRT ---
Visit Care Team Role Provider Type Cirilo Bryan MD Attending Provider Physician Family Provider Primary Care Provider Referring Provider Specialty: Family Practice Address: [address] [place] [address], [facility] Email: [email or web address] Occupational Therapy Treatment Note OT Outpatient Treatment Note - Adult Start: 08/12/23 15:41 Freq: Status: Active Protocol: Document 08/19/23 15:23 AMS (Rec: 08/19/23 15:36 AMS [id number]) OT Outpatient Adult Treatment Note Session Time Visit Start Time 13:00 Visit Stop Time 13:43 Visit Information Visit Number 07/15 Plan of Care Dates 08/12/23 - 11/04/23 Insurance Information [employer]; EVAL CHARGE ONLY; 8 visits @ 3 units per visit Setting Treatment Setting Outpatient Care Visit Type Note Type Treatment Note General Information General Information Mona is a 22 y.o. right hand dominant female referred to outpatient OT secondary to pain in both hands and hand dysfunction. Medical history is significant for depression, seizures, vision impairment, and 2 brain surgeries; she is on a anti-seizure medication. - Subjective Identification Type Name Identification Reconciled With Medical Record Observations Mona is spending the day with her aunt. - Objective Objective Measurements Please refer to below for progress towards meeting established OT goals. 08/19/23 = Able to pick-up and transfer small buttons (~ 1/4- inch in size), medium/large washers, wood pegs (~3-inches in size), golf tees, pennies/ nickel, and medium-sized paper clips from TT -> container w/ left hand without sliding to edge of table w/ increased time. Also placed x 3 wood pegs in pegboard w/ 9-HPT not timed w/ increased time w/ L hand. Skilled Nursing Goals 1. Mona will be modified independent with execution of home exercise program utilizing provided written and visual instructions from therapist. 2. Mona will be able to identify 2 to 3 adaptive pieces of equipment and/or modification and/or adaptive techniques that she could utilize in the home and/or within the community to support her engagement in meaningful activities. - Treatment 2 Descriptor UE motor planning/eye-hand coordination/object manipulation L hand 1 Descriptor ROM/UE weight bearing/UE motor planning. Modified ball tucks at floor level. 1 x 10. Modified walk-outs from quadriped. 1 x 10. Modified tricep dips from floor level (forearm). 1 x 10. Exercises 1 Descriptor UEB x 10 minutes. Forward. Seated. - Assessment Assessment of Improvement When asked, Mona was unable to identify specific goals that she would like to work on . Mona did quite well w/ transferring various small objects from TT to container w / the L hand w/ increased time ; she did not need to slide objects to the edge of the table and she did not use her fingernails to assist (given that they were recently trimmed). Revisited previously instructed in weight bearing/ motor planning/range of motion exercises at floor level in which Mona again did quite well; introduced some additional exercises and trialed some range of motion in sitting and modified kneeling. Rec trialing supine w/ 'holding' exercises and cont to inquire about Mona's goals. - Plan Therapy Recommendations Continue with Current Program, Advance per Rehabilitation Protocol
--- NOTE | 2023-08-26 15:31 | OT.OP.TRT ---
Visit Care Team Role Provider Type Cirilo Bryan MD Attending Provider Physician Family Provider Primary Care Provider Referring Provider Specialty: Family Practice Address: [address] [place] [address], [facility] Email: [email or web address] Occupational Therapy Treatment Note OT Outpatient Treatment Note - Adult Start: 08/12/23 15:41 Freq: Status: Active Protocol: Document 08/26/23 15:24 [facility] (Rec: 08/26/23 15:31 [facility] [id number]) OT Outpatient Adult Treatment Note Session Time Visit Start Time 13:05 Visit Stop Time 13:45 Visit Information Visit Number 08/15 Plan of Care Dates 08/12/23 - 11/04/23 Insurance Information [employer]; EVAL CHARGE ONLY; 8 visits @ 3 units per visit Setting Treatment Setting Outpatient Care Visit Type Note Type Treatment Note General Information General Information Mona is a 22 y.o. right hand dominant female referred to outpatient OT secondary to pain in both hands and hand dysfunction. Medical history is significant for depression, seizures, vision impairment, and 2 brain surgeries; she is on an anti-seizure medication. - Subjective Identification Type Name Identification Reconciled With Medical Record Observations No new concerns were reported. Mona expressed interest in wanting to use peanutball for walk-outs. - Objective Objective Measurements Please refer to below for progress towards meeting established OT goals. 08/19/23 = Able to pick-up and transfer small buttons (~ 1/4- inch in size), medium/large washers, wood pegs (~3-inches in size), golf tees, pennies/ nickel, and medium-sized paper clips from TT -> container w/ left hand without sliding to edge of table w/ increased time. Also placed x 3 wood pegs in pegboard w/ 9-HPT not timed w/ increased time w/ L hand. Software Design Manager Goals 1. Mona will be modified independent with execution of home exercise program utilizing provided written and visual instructions from therapist. 2. Mona will be able to identify 2 to 3 adaptive pieces of equipment and/or modification and/or adaptive techniques that she could utilize in the home and/or within the community to support her engagement in meaningful activities. - Treatment 4 Descriptor Finger/Hand strengthening Placement and removal of 2# to 8# of force resistant clothespins on vertical dowel. Grasping and lifting of weighted spherical ball from TT. 3.3# weighted ball. 3 x 10 . 3 Descriptor ROM/UE/Weight bearing/UE motor planning. x 10 walk-outs w/ use of yellow peanutball. 2 Descriptor UE motor planning/eye-hand coordination/object manipulation L hand 1 Descriptor ROM/UE weight bearing/UE motor planning. Modified ball tucks at floor level. 1 x 10. Modified walk-outs from quadriped. 1 x 10. Modified tricep dips from floor level (forearm). 1 x 10. - Assessment Assessment of Improvement When asked, Mona verbalized interest in wanting to use peanutball; thus, execution of walk-outs w/ peanutball to distance in which still able to rest both feet still on floor. Mona did a good job w / manipulating resistant clothespins w/ L hand, as well as picking up and replacing weighted ball (3.3#) on TT w/ the left hand. Did trial 4.4# weighted ball in which Mona indicated that it was too difficult to grasp and maintain grasp. Rec trialing supine w/ 'holding' exercises and cont to inquire about Mona's goals. - Plan Therapy Recommendations Continue with Current Program, Advance per Rehabilitation Protocol
--- NOTE | 2023-09-02 15:36 | OT.OP.TRT ---
Visit Care Team Role Provider Type Cirilo Bryan MD Attending Provider Physician Family Provider Primary Care Provider Referring Provider Specialty: Family Practice Address: [address] [place] [address], [facility] Email: [email or web address] Occupational Therapy Treatment Note OT Outpatient Treatment Note - Adult Start: 08/12/23 15:41 Freq: Status: Active Protocol: Document 09/02/23 15:26 AMS (Rec: 09/02/23 15:36 [facility] [id number]) OT Outpatient Adult Treatment Note Session Time Visit Start Time 13:05 Visit Stop Time 13:40 Visit Information Visit Number 3 Plan of Care Dates 08/12/23 - 11/04/23 Insurance Information [employer]; EVAL CHARGE ONLY; 8 visits @ 3 units per visit Setting Treatment Setting Outpatient Care Visit Type Note Type Treatment Note General Information General Information Mona is a 22 y.o. right hand dominant female referred to outpatient OT secondary to pain in both hands and hand dysfunction. Medical history is significant for depression, seizures, vision impairment, and 2 brain surgeries; she is on an anti-seizure medication. 09/02/22 = Mona reported having her 2nd brain surgery in the year 2019. - Subjective Identification Type Name Identification Reconciled With Medical Record Observations Mona expressed interest in wanting to use peanutball for walk-outs. - Objective Objective Measurements Please refer to below for progress towards meeting established OT goals. 08/19/23 = Able to pick-up and transfer small buttons (~ 1/4- inch in size), medium/large washers, wood pegs (~3-inches in size), golf tees, pennies/ nickel, and medium-sized paper clips from TT -> container w/ left hand without sliding to edge of table w/ increased time. Also placed x 3 wood pegs in pegboard w/ 9-HPT not timed w/ increased time w/ L hand. Residential Tech Goals 1. Mona will be modified independent with execution of home exercise program utilizing provided written and visual instructions from therapist. 2. Mona will be able to identify 2 to 3 adaptive pieces of equipment and/or modification and/or adaptive techniques that she could utilize in the home and/or within the community to support her engagement in meaningful activities. - Treatment 4 Descriptor Finger/Hand strengthening Placement and removal of 2# to 8# of force resistant clothespins on vertical dowel. 3 Descriptor ROM/UE/Weight bearing/UE motor planning. x 15 walk-outs w/ use of yellow peanutball. (x 5 without feet touching the floor) Modified tricep extension at floor level. x 13. Modified ball at floor level. x 13. 2 Descriptor UE motor planning/eye-hand coordination/object manipulation L hand - Assessment Assessment of Improvement Mona did not identify specific activities that she would like to work on; although, did express interest in wanting to use peanutball and execute walk-outs. Report of assist with tying of shoes/ shoe laces and donning L AFO ( w/ person assisting w/ and without shoe horn). Mona cont to be able to manage resistant clothespins w/ L hand without assist orientating them on TT to support L hand motor planning; she is able to maintain a fist w/ balloon volleyball and 'hit' the balloon at most angles (w/ only observed missing when reaching cross body to the R w/ L hand primarily with low bounced tennis ball). Mona reports needing assist with tying her shoe laces, doing her hair, and w/ donning her AFO (w/ person assisting her sometimes using a shoe horn to help the process). Mona seems to enjoy utilizing the peanutball and does well with this exercise, as well as with the modified core/ball exercise and modified tricep extension exercise at mat level. Rec cont to inquire about goals that Mona would like to work on. *Has indicated verbally/non- verbally that she was not interested in using the arm bike. - Plan Therapy Recommendations Continue with Current Program, Advance per Rehabilitation Protocol
--- NOTE | 2023-10-11 15:41 | OT.OP.TRT ---
Visit Care Team Role Provider Type Cirilo Bryan MD Attending Provider Physician Family Provider Primary Care Provider Referring Provider Specialty: Family Practice Address: [address] [place] [address], [facility] Email: [email or web address] Occupational Therapy Treatment Note OT Outpatient Treatment Note - Adult Start: 08/12/23 15:41 Freq: Status: Active Protocol: Document 10/11/23 15:26 AMS (Rec: 10/11/23 15:41 [facility] [id number]) OT Outpatient Adult Treatment Note Session Time Visit Start Time 13:45 Visit Stop Time 14:25 Visit Information Visit Number 10/13 Plan of Care Dates 08/12/23 - 11/04/23 Insurance Information [employer]; EVAL CHARGE ONLY; 8 visits @ 3 units per visit Setting Treatment Setting Outpatient Care Visit Type Note Type Treatment Note General Information General Information Mona is a 22 y.o. right hand dominant female referred to outpatient OT secondary to pain in both hands and hand dysfunction. Medical history is significant for depression, seizures, vision impairment, and 2 brain surgeries; she is on an anti-seizure medication. 09/02/22 = Mona reported having her 2nd brain surgery in the year 2019. - Subjective Identification Type Name Identification Reconciled With Medical Record Observations Mona expressed that she will be going to stay with her aunt to celebrate her upcoming birthday. She continues to access [employer] for her music playlists on her personal cell phone. - Objective Objective Measurements Please refer to below for progress towards meeting established OT goals. 08/19/23 = Able to pick-up and transfer small buttons (~ 1/4- inch in size), medium/large washers, wood pegs (~3-inches in size), golf tees, pennies/ nickel, and medium-sized paper clips from TT -> container w/ left hand without sliding to edge of table w/ increased time. Also placed x 3 wood pegs in pegboard w/ 9-HPT not timed w/ increased time w/ L hand. Long-Term Goals 1. Mona will be modified independent with execution of home exercise program utilizing provided written and visual instructions from therapist. 2. Mona will be able to identify 2 to 3 adaptive pieces of equipment and/or modification and/or adaptive techniques that she could utilize in the home and/or within the community to support her engagement in meaningful activities. - Treatment 4 Descriptor Finger/Hand strengthening Placement and removal of 2# to 8# of force resistant clothespins on vertical dowel. Red Thera-band Flex bar. 1 x 15. Pronation. Supination. Grasp & twist. 3 Descriptor ROM/UE/Weight bearing/UE motor planning. x 15 walk-outs w/ use of yellow peanutball. Modified tricep extension at floor level. 1 x 15. Modified ball at floor level. 1 x 15. Modified ball w/ toe taps. 1 x 15. 2 Descriptor UE motor planning/eye-hand coordination/object manipulation L hand - Assessment Assessment of Improvement Mona presented to treatment session without AFO; a friend is staying in the home and helping w/ transportation of Mona to and from medical appointments if her Dad is unavailable to do so, and helping Mona with various other tasks (such as tying of shoe laces, putting her hair up, although, Mona was observed to be able to manage larger hair clips without assistance). Mona will be going to stay with her aunt in upcoming weeks to celebrate her upcoming birthday; Mona reportedly will be attending a trivia session about [place]. Mona did quite well with familiar exercises; given additional time available, incorporated Thera-Band red flex bar for L distal UE strengthening (supination, pronation, twisting of flexbar ). *Has indicated verbally/non- verbally that she was not interested in using the arm bike. - Plan Therapy Recommendations Continue with Current Program, Advance per Rehabilitation Protocol
--- NOTE | 2023-10-17 13:44 | OT.OP.TRT ---
Visit Care Team Role Provider Type Cirilo Bryan MD Attending Provider Physician Family Provider Primary Care Provider Referring Provider Specialty: Family Practice Address: [address] [place] [address], [facility] Email: [email or web address] Occupational Therapy Treatment Note OT Outpatient Treatment Note - Adult Start: 08/12/23 15:41 Freq: Status: Active Protocol: Document 10/17/23 13:41 AMS (Rec: 10/17/23 13:44 AMS [id number]) OT Outpatient Adult Treatment Note - Subjective Observations Mona did not show for her scheduled 1:00 PM OT appt; clinician used [employer] to contact her re: missed appointment and notify her of her next scheduled OT appointment. Clinician to follow-up as appropriate. - - - -
--- NOTE | 2023-10-24 15:19 | OT.OP.TRT ---
Visit Care Team Role Provider Type Cirilo Bryan MD Attending Provider Physician Family Provider Primary Care Provider Referring Provider Specialty: Family Practice Address: [address] [place] [address], [facility] Email: [email or web address] Occupational Therapy Treatment Note OT Outpatient Treatment Note - Adult Start: 08/12/23 15:41 Freq: Status: Active Protocol: Document 10/24/23 15:07 AMS (Rec: 10/24/23 15:19 [facility] [id number]) OT Outpatient Adult Treatment Note Session Time Visit Start Time 13:00 Visit Stop Time 13:43 Visit Information Visit Number 11/12 Plan of Care Dates 08/12/23 - 11/04/23 Insurance Information [employer]; EVAL CHARGE ONLY; 8 visits @ 3 units per visit Setting Treatment Setting Outpatient Care Visit Type Note Type Treatment Note General Information General Information Mona is a 22 y.o. right hand dominant female referred to outpatient OT secondary to pain in both hands and hand dysfunction. Medical history is significant for depression, seizures, vision impairment, and 2 brain surgeries; she is on an anti-seizure medication. 09/02/22 = Mona reported having her 2nd brain surgery in the year 2018. - Subjective Observations Mona reported that she had a sleep study performed in 2020 --> then again recently in 2023. She is still waiting for the results of the sleep study which will reportedly be provided in the near future ( follow-up MD appointment on 11/14/23). Mona reported that her Mother and Grandmother like playing Free Cell/ Solitaire. - Objective Objective Measurements Please refer to below for progress towards meeting established OT goals. 08/19/23 = Able to pick-up and transfer small buttons (~ 1/4- inch in size), medium/large washers, wood pegs (~3-inches in size), golf tees, pennies/ nickel, and medium-sized paper clips from TT -> container w/ left hand without sliding to edge of table w/ increased time. Also placed x 3 wood pegs in pegboard w/ 9-HPT not timed w/ increased time w/ L hand. Senior Environmental Scientist Goals 1. Mona will be modified independent with execution of home exercise program utilizing provided written and visual instructions from therapist. 2. Mona will be able to identify 2 to 3 adaptive pieces of equipment and/or modification and/or adaptive techniques that she could utilize in the home and/or within the community to support her engagement in meaningful activities. - Treatment 7 Descriptor Eye-hand coordination. L UE Ball target overhand throw seated. 6 Descriptor Fine motor planning/Object manipulation. Modified version of card game 'War'. 5 Descriptor Bimanual coordination. 4 Descriptor Finger/Hand strengthening Placement and removal of 2# to 8# of force resistant clothespins on vertical dowel. Red Thera-band Flex bar. 1 x 15. Pronation. Supination. Grasp & twist. 3 Descriptor ROM/UE/Weight bearing/UE motor planning. x 15 walk-outs w/ use of yellow peanutball. Modified tricep extension at floor level. 1 x 15. Modified ball at floor level. 1 x 15. - Assessment Assessment of Improvement Mona reported that a friend is staying in the home and helping w/ transportation of Mona to and from medical appointments and helping Mona with various other tasks (such as tying of shoe laces, putting her hair up). Mona reportedly had a sleep study; she will be getting the results early November at a MD appointment (November 13 I believe ). Mona will be going to stay with her aunt in upcoming weeks to celebrate her upcoming birthday; Mona reportedly will be attending a trivia session about [place]. Mona did quite well with familiar exercises including use of Thera-Band red flex bar for L distal UE strengthening (supination, pronation, twisting of flexbar). Given extra time available modified card game w/ focus on having Mona flipping over single cards w/ L hand 1 x a time. Mona indicated that she could not identify a task/self -care activity that she would benefit from AE in today's session. *Has indicated verbally/non- verbally that she was not interested in using the arm bike. - Plan Therapy Recommendations Continue with Current Program, Advance per Rehabilitation Protocol
--- NOTE | 2023-11-25 10:11 | OT.OP.DC ---
Visit Care Team Role Provider Type Cirilo Bryan MD Attending Provider Physician Family Provider Primary Care Provider Referring Provider Address: [address] [place] [address], [place], [address] Email: [email or web address] OT Outpatient OT Outpatient Adult Evaluation Start: 08/12/23 15:41 Freq: Status: Active Protocol: Document 08/12/23 15:41 AMS (Rec: 08/12/23 16:00 AMS [id number]) General Information - Adult Visit Information Visit Number EVAL; 08 Plan of Care Dates 08/12/23 - 11/04/23 Insurance Information [employer]; EVAL CHARGE ONLY; 8 visits @ 3 units per visit Session Time Visit Start Time 13:00 Visit Stop Time 13:45 Setting Treatment Setting Outpatient Care Visit Type Note Type Initial Evaluation Identification Identification Confirmed Yes Identification Confirmed By Self Goals Treatment Treatment Discussion re: meaningful/ functional activities. Paver Operator Goals Residential Goals 1. Mona will be modified independent with execution of home exercise program utilizing provided written and visual instructions from therapist. 2. Mona will be able to identify 2 to 3 adaptive pieces of equipment and/or modification and/or adaptive techniques that she could utilize in the home and/or within the community to support her engagement in meaningful activities. Assessment/Plan Assessment Treatment Assessment Mona is a 22 y.o. right hand dominant female referred to outpatient OT secondary to pain in both hands and hand dysfunction. Medical history is significant for depression, seizures, vision impairment, and 2 brain surgeries; she is on a anti-seizure medication. Mona resides in [place], [place] w/ her father and their roommate. She denies doing gymnastics in [place] given that she does not currently have a ride to and from the gymnasium/location. Mona reports spending most of her time in her own room watching tik tok and utube videos and occasionally listening to music on her personal cell phone and tablet . She states that there are currently 2 cats in the home in which she receives help with their care; the family is working w/ a treasury specialist in order to identify potential therapy dog/seizure alert dog for Mona. She denies currently doing art or crafts. Mona receives help with cleaning her room and meal preparation; roommate helps with putting on L AFO. Mona is not wearing a hand/wrist L splint; her roommate also helps with showering, dressing and doing her hair. For bathing, she has a shower chair, 1 grab bar, a handheld shower head, and a long handled sponge. She has not yet tried to use a 2-handled back scrubber. QuickDASH UE Outcome Measure Score = 68.18. Report of 2 out of 10 on pain scale relative to volar and dorsal surfaces of L wrist; discomfort is inconsistent in presentation 'random' w/ ' twisting' motions. Demonstrated touching of L hand to top of head/touch of L shoulder, w/ inability touching lower back, full forearm pronation, neutral forearm supination, full elbow ext, WFL elbow flexion. Increased reliance on R UE; tendency to position L hand in fisted position. Opposed L thumb to 4th digit pad. 12.0# of force L lateral abrams pinch vs 16.0# of force R lateral abrams pinch; 6.5# of force L tip pinch vs 14.0# of force R tip pinch; 9.0# of force L 3-jaw pinch vs 20.0# of force R 3- jaw pinch. At time of evaluation, Mona was unable to identify specific functional goals that she would like to work on. Thus, further discussion is needed in order to establish meaningful goals that are client specific. Plan Length of treatment (weeks) 12 Plan of Care Start Date 08/12/23 Plan of Care End Date 11/04/23 Treatment Frequency Once a Week Therapeutic Contents Active Range of Motion, Adaptive Equipment Education, Functional Activities,Home Exercise Program,Joint Protection,Manual Therapy, Education,Neurodevelopment Treatment,Neuromuscular Re- Education,Self-Care,Stretching /Flexibility Activities, Therapeutic Activities, Therapeutic Exercises,Sensory Re-education Functional Wrist/Hand Scan Hand Side Sensory Assessment Sensory Profile2 OT Outpatient Treatment Note - Adult Start: 08/12/23 15:41 Freq: Status: Active Protocol: Document 11/25/23 10:09 [facility] (Rec: 11/25/23 10:11 [facility] [id number]) OT Outpatient Adult Treatment Note Visit Information Visit Number 5/8 Plan of Care Dates 08/12/23 - 11/04/23 Insurance Information [employer]; EVAL CHARGE ONLY; 8 visits @ 3 units per visit Visit Type Note Type Discharge Summary General Information General Information Mona is a 22 y.o. right hand dominant female referred to outpatient OT secondary to pain in both hands and hand dysfunction. Medical history is significant for depression, seizures, vision impairment, and 2 brain surgeries; she is on an anti-seizure medication. 09/02/22 = Mona reported having her 2nd brain surgery in the year 2019. - Subjective Observations Mona has not been seen in the outpatient setting by OT since 10/24/23 and OT POC on 11/04/23; thus, recommend d/c from outpatient OT at this time and re- evaluate as deemed appropriate by PCP w/ receipt of new OT referral. - Objective Objective Measurements Please refer to below for progress towards meeting established OT goals. 08/19/23 = Able to pick-up and transfer small buttons (~ 1/4- inch in size), medium/large washers, wood pegs (~3-inches in size), golf tees, pennies/ nickel, and medium-sized paper clips from TT -> container w/ left hand without sliding to edge of table w/ increased time. Also placed x 3 wood pegs in pegboard w/ 9-HPT not timed w/ increased time w/ L hand. Residential Goals ALL GOALS D/C 11/25/23 1. Mona will be modified independent with execution of home exercise program utilizing provided written and visual instructions from therapist. 2. Mona will be able to identify 2 to 3 adaptive pieces of equipment and/or modification and/or adaptive techniques that she could utilize in the home and/or within the community to support her engagement in meaningful activities. - - Assessment Assessment of Improvement Mona has not been seen in the outpatient setting by OT since 10/24/23 and OT POC on 11/04/23; thus, recommend d/c from outpatient OT at this time and re- evaluate as deemed appropriate by PCP w/ receipt of new OT referral. - Plan Therapy Recommendations Discharge from Occupational Therapy
== END 2023-11-26 10:57 | disposition home or self-care (01) ==
LOC: OT 13:00
PROVIDERS: Family Provider Family Medicine; PCP Family Medicine; Referring Provider Family Medicine; Visit Provider Family Medicine
DX: M79.641 Pain in right hand (principal); M79.642 Pain in left hand; R29.898 Other symptoms and signs involving the musculoskeletal system; R26.89 Other abnormalities of gait and mobility; M25.571 Pain in right ankle and joints of right foot; M79.671 Pain in right foot
CPT/HCPCS: 97110; 97165; 97530

== ENCOUNTER → 2024-05-16 17:07 | Outpatient (CLI) | payer OTHER, MEDICAID, SELFPAY ==
[2024-05-16 17:52] LABS: Influenza A - CEPHEID Flu A NEGATIVE (NEGATIVE); Influenza B - CEPHEID Flu B NEGATIVE (NEGATIVE); Respiratory Syncytial Virus Negative (Negative)
[2024-05-16 17:58] LABS: COVID-19 CEPHEID 4-PLEX PCR Negative (Negative)
== END ==
PROVIDERS: Family Provider Family Medicine; PCP Family Medicine; Visit Provider Registered Nurse
DX: J02.9 Acute pharyngitis, unspecified (principal); R05.1 Acute cough
CPT/HCPCS: 87635; 87400 ×2; 87420; 0241U; 87070; 87880

== ENCOUNTER 2024-07-10 17:02 | Emergency (ER) | payer OTHER, SELFPAY ==
[2024-07-10] VITALS (15 sets, daily range): BP systolic 109–134; BP diastolic 59–79; PULSE 106–138; RESP 20–26; TEMP 37.1; O2SAT 95–100; BMI 45.7
--- NOTE | 2024-07-10 17:45 | DI.CT.S_ITS ---
PROCEDURE: CT HEAD/BRAIN WO CON INDICATIONS: sz, hx brain tumor TECHNIQUE: Noncontrast 4.5 mm thick angled axial sections acquired from the foramen magnum to the vertex, with coronal and sagittal reformats. For radiation dose reduction, the following was used: automated exposure control, adjustment of mA and/or kV according to patient size. COMPARISON: [facility], CT, CT HEAD/BRAIN WO CON, 11/19/2022, 8:54. FINDINGS: Image quality: Diagnostic. CSF spaces: Basal cisterns are patent. No extra-axial fluid collections. Ventricles are unchanged. There is ex vacuole dilatation of the right lateral ventricle. Brain: No midline shift. Right triple hemisphere encephalomalacia is unchanged. No intracranial masses identified. No acute intracranial hemorrhage. Ratliff-white matter interface is normal. Skull and face: Right craniotomy. Calvarium and visualized facial bones are intact, without suspicious lesions. Sinuses: Visualized sinuses and mastoids are clear. IMPRESSION: No acute intracranial hemorrhage. No interval change appreciated. Stable encephalomalacia in the right cerebral hemisphere. Dictated by: Jimmy Zelaya M.D. on 07/10/2024 at 19:21 Approved by: Jimmy Zelaya M.D. on 07/10/2024 at 19:25
[2024-07-10 17:49] LABS: Add Manual Diff / Slide Review NO; Basophils Absolute Auto 100 /uL (0-100); Basophils Percent Auto 0.4 % (0-2); Eosinophils Absolute Auto 100 /uL (0-450); Eosinophils Percent Auto 0.5 % (2-4); Hematocrit 44.2 % (36-46); Hemoglobin 14.3 g/dL (12.0-16.0); Lymphocytes Absolute Auto 4700 /uL (1100-4500); Lymphocytes Percent Auto 30.7 % (25-40); Mean Corpuscular HGB Conc 32.5 % (30-36); Mean Corpuscular Hemoglobin 27.2 PG (26-34); Mean Corpuscular Volume 83.7 fL (80-100); Monocytes Absolute Auto 600 /uL (0-900); Neutrophils Absolute Auto 9900 /uL (1500-7000); Neutrophils Percent Auto 64.4 % (50-75); Platelet Count 509 X10^3/uL (150-400); Red Blood Cell Count 5.28 X10^6/uL (4.0-5.2); Red Cell Distribution Width 13.9 % (11.6-14.8); White Blood Cell Count 15.3 X10^3/uL (4.5-11.0)
[2024-07-10 17:55] LABS: Alanine Aminotransferase 40 IU/L (<35); Albumin 4.9 g/dL (3.5-5.0); Albumin Globulin Ratio 1.3 (1.0-2.8); Alkaline Phosphatase 83 U/L (38-126); Aspartate Aminotransferase 35 IU/L (14-36); BUN Creatinine Ratio 8.6 (6-22); Bilirubin Total 0.4 mg/dL (0.2-1.3); Blood Urea Nitrogen 7 mg/dL (7-17); Calcium 9.9 mg/dL (8.4-10.2); Carbon Dioxide 20 mmol/L (22-32); Chloride 102 mmol/L (98-107); Estimated Glomerular Filt Rate > 60 mL/min (>60); Globulin 3.8 g/dL (1.7-4.1); Glucose 138 mg/dL (70-100); HEMOLYSIS < 15 (0-50); Magnesium 1.8 mg/dL (1.6-2.3); Potassium 3.3 mmol/L (3.4-5.1); Sodium 138 mmol/L (137-145); Total Protein 8.7 g/dL (6.3-8.2)
[2024-07-10 18:12] LABS: HCG Quantitative /Beta subunit < 2.39 mIU/mL
--- NOTE | 2024-07-10 18:26 | ED_ITS ---
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 Reese of Neurology at [facility] about 6 months ago, due to see her in clinic in August 2024 next month, taking same Oxtellar/oxcarbazapine each evening, noted tonight to have shaking episodes brief, left gaze, then generalized, 2 seizures noted today, another seizure shortly after arrival with EMS to ED. Glucose normal. She has not taken her Oxtellar/oxcaraazapine evening dose yet tonight. Related Data Previous Rx's Medication Instructions Recorded valacyclovir 1 gram tablet See Rx Instructions .Route 08/16/22 .COMPLEX #28 tabs diazepam 5 mg-7.5 mg-10 mg rectal 5 mg DE Q6H PRN seizure activity 2 11/23/22 kit (Diastat AcuDial) doses #1 ea cholecalciferol (vitamin D3) 25 25 mcg PO DAILY #90 caps 12/18/22 mcg (1,000 unit) capsule Parking Permit... #1 ea 01/14/23 loratadine 10 mg tablet (Claritin) 10 mg PO DAILY #30 tabs 07/24/23 diazepam 5 mg/spray (0.1 mL) nasal 5 mg (0.1 mL) intranasal .prn PRN 09/17/23 spray seizure activity #2 sprays venlafaxine 75 mg capsule,extended See Rx Instructions PO BEDTIME 12/19/23 release 24 hr (Effexor XR) #180 caps nystatin 100,000 unit/gram topical 1 applic topical BID #30 grams 01/07/24 powder oxcarbazepine 600 mg 1,200 mg (2 x 600 mg) PO BEDTIME 01/29/24 tablet,extended release 24 hr #180 tabs (Oxtellar XR) levetiracetam 750 mg tablet 750 mg PO BID #60 tabs 07/10/24 (Keppra) oxcarbazepine 150 mg tablet 150 mg PO DAILY #30 tabs 07/10/24 Allergies Allergy/AdvReac Type Severity Reaction Status Date / Time No Known Drug Allergies Allergy Verified 05/16/24 15:40 Patient History Medical History Bilateral hand pain Viral URI with cough History of nephrolithiasis Acute left flank pain FHx: BRCA2 gene positive FH: breast cancer in first degree relative when <50 years old Hand dysfunction Decreased mobility Dysuria IT band syndrome Mixed incontinence urge and stress Insomnia disorder with non-sleep disorder mental comorbidity Fatigue due to depression Anxiety and depression Selective mutism as adjustment reaction Seizure disorder Surgical History H/O brain surgery Family History Mother Cancer Grandmother BRCA2 gene mutation positive Family/Other BRCA2 gene mutation positive Social History Smoking Status: Never smoker Smoking Status: Never smoker Exam Narrative Exam Narrative: GENERAL: Well-developed patient, in mild distress. HEAD: Atraumatic. Normocephalic. EYES: Pupils equal round and reactive. Extraocular motions intact. No scleral icterus. No injection or drainage. ENT: Nose without bleeding, purulent drainage. Throat without erythema, tonsillar hypertrophy or exudate. Airway patent. NECK: Trachea midline. Non tender CARDIOVASCULAR: Regular rate and rhythm without murmurs, gallops, or rubs. RESPIRATORY: Clear to auscultation. Breath sounds equal bilaterally. No wheezes, rales, or rhonchi. GASTROINTESTINAL: Abdomen soft, non-tender, nondistended. EXTREMITIES: No edema or joint tenderness. BACK: Nontender without deformity or crepitance. No flank tenderness. NEURO: Alert, conversant, states that she can not move her left arm in her left leg since her brain tumor, she feels more weak on that side after her seizure. Left arm weakness 1/5 and left lower leg weakness 1/5 with some slight wiggling of fingers both sides. Cranial nerve exam unremarkable. SKIN: No rash or erythema of visible areas Initial Vital Signs Initial Vital Signs: Vital Signs Temperature 98.7 F 07/10/24 17:25 Pulse Rate 124 H 07/10/24 17:25 Respiratory Rate 20 07/10/24 17:25 Blood Pressure 134/75 07/10/24 17:25 Pulse Oximetry 99 07/10/24 17:25 Oxygen Delivery Method Room Air 07/10/24 17:25 Course Orders Ordered: Discontinued Medications Acetaminophen (Acetaminophen 325 Mg Tablet) 650 mg PO NOW ONE Stop: 07/10/24 18:32 Last Admin: 07/10/24 18:59 Dose: 650 mg Documented By: ESTRELLITA Acetaminophen (Acetaminophen 325 Mg Tablet) 650 mg PO NOW ONE Stop: 07/11/24 10:08 Last Admin: 07/11/24 10:31 Dose: 650 mg Documented By: ESME Levetiracetam 2,000 mg/ Sodium (Chloride) 120 mls @ 480 mls/hr IV NOW ONE Stop: 07/10/24 18:51 Last Infusion: 07/10/24 19:20 Dose: Infused Documented By: Admin: 07/10/24 18:58 Dose: 480 mls/hr Documented By: ESTRELLITA Lorazepam (Lorazepam 2 Mg/Ml Inj) 4 mg IV NOW ONE Stop: 07/10/24 18:51 Last Admin: 07/10/24 18:45 Dose: 4 mg Documented By: ESTRELLITA Oxcarbazepine (Oxcarbazepine 150 Mg Tablet) 1,200 mg PO BID DERECK Last Admin: 07/11/24 09:37 Dose: 1,200 mg Documented By: Admin: 07/10/24 20:20 Dose: Not Given Documented By: ESTRELLITA Potassium Chloride (Potassium Chloride 20 Meq/15 Ml Udc) 40 meq PO NOW ONE Stop: 07/10/24 18:36 Last Admin: 07/10/24 18:58 Dose: 40 meq Documented By: ESTRELLITA Vital Signs Vital signs: Vital Signs - 8 hr 07/11/24 08:30 07/11/24 08:30 07/11/24 09:00 Pulse Rate 99 H 110 H Respiratory Rate 18 20 Blood Pressure 105/57 L Pulse Oximetry 96 95 07/11/24 09:00 07/11/24 09:30 07/11/24 09:30 Pulse Rate 112 H Respiratory Rate 23 Blood Pressure 108/69 114/68 Pulse Oximetry 96 07/11/24 10:04 07/11/24 10:05 07/11/24 10:05 Pulse Rate 114 H 116 H Respiratory Rate 24 Blood Pressure 125/83 Pulse Oximetry 95 95 MDM - Seizure Lab Data Attestation: I reviewed the patient's lab results. Lab results narrative: White blood cell count 39473, hemoglobin 14, platelets 509 elevated. Glucose 138. Serum potassium 3.3 low, sodium 138, serum CO2 20, BUN normal 7, creatinine 0.81 normal. HCG negative. Liver functions normal. 07/10/24 16:45 07/10/24 16:45 Labs: Lab Results 07/10/24 07/10/24 Range/Units 16:45 21:09 WBC 15.3 H (4.5-11.0) X10^3/uL RBC 5.28 H (4.0-5.2) X10^6/uL Hgb 14.3 (12.0-16.0) g/dL Hct 44.2 (36-46) % MCV 83.7 (80-100) fL MCH 27.2 (26-34) PG MCHC 32.5 (30-36) % RDW 13.9 (11.6-14.8) % Plt Count 509 H (150-400) X10^3/uL Neut % (Auto) 64.4 (50-75) % Lymph % (Auto) 30.7 (25-40) % Bartholomew % (Auto) 4.0 (3-14) % Eos % (Auto) 0.5 L (2-4) % Baso % (Auto) 0.4 (0-2) % Neut # (Auto) 9900 H (8024-2346) /uL Lymph # (Auto) 4700 H (0680-6083) /uL Bartholomew # (Auto) 600 (0-900) /uL Eos # (Auto) 100 (0-450) /uL Baso # (Auto) 100 (0-100) /uL Sodium 138 (137-145) mmol/L Potassium 3.3 L (3.4-5.1) mmol/L Chloride 102 (98-107) mmol/L Carbon Dioxide 20 L (22-32) mmol/L BUN 7 (7-17) mg/dL Creatinine 0.81 (0.52-1.04) mg/dL Estimated GFR > 60 (>60) mL/min BUN/Creatinine Ratio 8.6 (6-22) Glucose 138 H (70-100) mg/dL Calcium 9.9 (8.4-10.2) mg/dL Magnesium 1.8 (1.6-2.3) mg/dL Total Bilirubin 0.4 (0.2-1.3) mg/dL AST 35 (14-36) IU/L ALT 40 H (<35) IU/L Alkaline Phosphatase 83 (38-126) U/L Total Protein 8.7 H (6.3-8.2) g/dL Albumin 4.9 (3.5-5.0) g/dL Globulin 3.8 (1.7-4.1) g/dL Albumin/Globulin Ratio 1.3 (1.0-2.8) HCG, Quant < 2.39 mIU/mL SARS-CoV-2 (PCR) Negative (Negative) Influenza A (RT-PCR) Flu a negative (NEGATIVE) Influenza B (RT-PCR) Flu b negative (NEGATIVE) RSV (PCR) Negative (Negative) Point of Care Testing Glucose POC [address] scan - head: Radiologist's Impression: [place] [address] CT Scan Report Signed Patient: Mona Sales MR#: [id number] : 2000 Acct:[id number] Age/Sex: 23 / F Date of Service: 07/10/24 Loc: ED Accession Number: [id number] Procedure: CT head/brain wo con Ordering Provider: Navid Beverly MD PROCEDURE: CT HEAD/BRAIN WO CON INDICATIONS: sz, hx brain tumor TECHNIQUE: Noncontrast 4.5 mm thick angled axial sections acquired from the foramen magnum to the vertex, with coronal and sagittal reformats. For radiation dose reduction, the following was used: automated exposure control, adjustment of mA and/or kV according to patient size. COMPARISON: [facility], CT, CT HEAD/BRAIN WO CON, 11/19/2022, 8:54. FINDINGS: Image quality: Diagnostic. CSF spaces: Basal cisterns are patent. No extra-axial fluid collections. Ventricles are unchanged. There is ex vacuole dilatation of the right lateral ventricle. Brain: No midline shift. Right triple hemisphere encephalomalacia is unchanged. No intracranial masses identified. No acute intracranial hemorrhage. Ratliff-white matter interface is normal. Skull and face: Right craniotomy. Calvarium and visualized facial bones are intact, without suspicious lesions. Sinuses: Visualized sinuses and mastoids are clear. IMPRESSION: No acute intracranial hemorrhage. No interval change appreciated. Stable encephalomalacia in the right cerebral hemisphere. Dictated by: Jimmy Zelaya M.D. on 07/10/2024 at 19:21 Approved by: Jimmy Zelaya M.D. 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 Quintana at [facility], last visit 6 months ago, now with a couple of seizures tonight, not having had a seizure for at least two years on same stable dose of Oxtellar/oxcarbazapine 1000 mg each night per father at bedside, she has not had tonight's oral Oxtellar/oxcarbazapine dose. Medication list Oxtellar/oxcarbazapine dose 1200 mg each night, oral dose to be given tonight. Oral potassium for potassium low level 3.3 ordered. Patient had another tonic-clonic seizure, with left lateral gaze, aborted with IV Ativan 2+ 2 mg, postictal period of a few minutes then recovered. Worsening left arm and leg weakness posticatal that improved. IV Keppra 2gm load. CT head results pending. CT head no acute changes, right-sided old craniotomy, stable encephalomalacia right cerebral hemisphere noted, see radiology report. Consider transfer to neurology capable facility, Dr. Reese at [facility] has followed her in the past, we will contact [facility]. 2014, case discussed with /[facility] intake, await call back from neurology 2100, case discussed [facility] on-call Neurology Dr. Yates, who was able to review notes from Dr. Reese, recommends increased dose of Oxteelar/oxcarbazepine from 1200 mg nightly to 1350mg, and discharge patient on Keppra 750 mg twice a day, screen for influenza/COVID, check urinalysis. She has appointment with Dr. Reese scheduled 07/14/2024 to keep that appointment, if she returns to baseline has no further seizure activity. Discussed with patient and father that seem amenable to this plan. COVID/flu/RSV negative. Urinalysis pending. Attempt to ambulate, patient seemed fairly sleepy. But improved, able to get up and self transfer to commode, motor functions at baseline. We will further observe, await arrival family who went home. 0630, improved, we will discharge on increase dose of oral Oxtellar/oxcarbazepine from 1200mg to 1350mg nightly per neurology recommendation, also addition of Keppra 750mg twice daily, prescriptions sent to her pharmacy. Follow up with her neurologist Dr. Reese 07/14/2024 as scheduled. Return precautions discussed. Discharged home with family Critical Care Time Critical Care Time Critical Care Time: Yes Total Critical Care Time: 35 Attestation: The high probability of a clinically significant, sudden or life threatening deterioration of the [neurologic] system required my full and direct attention, intervention and personal management. The aggregate critical care time was [35] minutes. This time is in addition to time spent performing reported procedures but includes the following: [x] Data Review and interpretation, consultation with neurology specialist [x] Patient assessment and monitoring of vital signs [x] Documentation [x] Medication orders and management Discharge Plan Departure Patient Disposition: Home Clinical Impression: Status epilepticus, History of brain surgery, Hypokalemia, History of seizure disorder Activity Restrictions/Additional Instructions: History of seizures since childhood, prior seizure related brain surgery in [place] 10 years ago, prior seizure every related brain surgery about 5 years ago in [facility], followed by Dr. Reese Neurology at [facility] most recently, taking oxcarbazepine 1200 mg nightly with no recent breakthrough seizures for years, unfortunately tonight having serial seizures despite taking medications. CT head tonight showed no acute changes in the brain area, showed old postoperative changes only. She had seizures here, was given IV medications to stop the seizures that made you sleepy for awhile. IV Keppra medicine was added to help stop seizures. When you recovered enough then oral potassium was given for your low blood level. And oral dose of evening oxcarbazepine was given from your own supply of 1200 mg. Case was discussed with Neurology Dr. Yates on-call at [facility], who was able to review records, feels that you can take an additional 150 mg daily oxcarbazepine for total of 1350 mg daily, and also restart Keppra at 750 mg twice daily antiseizure medication for now. She recommends you follow up as planned with your appointment with your established neurologist Dr. Reese on 07/14/2024. Take medications above as directed. Please do not miss any antiseizure doses to help keep seizures from recurring. Follow up with your neurologist next week as planned. Return to this/nearest emergency department for any change worsening symptoms or any concerns prior Prescriptions: New oxcarbazepine 150 mg tablet 150 mg PO DAILY Qty: 30 0RF levetiracetam [Keppra] 750 mg tablet 750 mg PO BID Qty: 60 0RF No Action loratadine [Claritin] 10 mg tablet 10 mg PO DAILY Qty: 30 0RF valacyclovir 1 gram tablet See Rx Instructions .ROUTE .COMPLEX Qty: 28 0RF Dose Instruction: Take 2 tablets twice each day for 1 day at 1st sign of cold sore --use as needed for cold sores-- Rx Instructions: Take 2 tablets twice each day for 1 day at 1st sign of cold sore --use as needed for cold sores-- diazepam [Diastat AcuDial] 5-7.5-10 mg kit 5 mg DE Q6H PRN (Reason: seizure activity) Qty: 1 3RF (DME) Parking Permit... See Rx Instructions .Route .MEDSUPPLY Qty: 1 0RF Rx Instructions: I find this patient to be medically disabled and qualified for Disabled Parking as indicated, and signed, on Accompanying Disabled Parking Application for Individuals nystatin 100,000 unit/gram powder 1 applic topical BID Qty: 30 0RF Rx Instructions: apply to affected area until rash is gone Oxtellar XR 600 mg tablet extended release 24 hr 1,200 mg PO BEDTIME Qty: 180 1RF Rx Instructions: must be taken on empty stomach; no food at least 2 hrs before or 1 hr after dose cholecalciferol (vitamin D3) 25 mcg (1,000 unit) capsule 25 mcg PO DAILY Qty: 90 1RF diazepam 5 mg/spray (0.1 mL) spray,non-aerosol 5 mg intranasal .prn PRN (Reason: seizure activity) Qty: 2 0RF Rx Instructions: as up to 2 sprays for seizure venlafaxine [Effexor XR] 75 mg capsule,extended release 24hr See Rx Instructions PO BEDTIME Qty: 180 1RF Rx Instructions: t2 caps po nightly Referrals: Cirilo Bryan MD [Primary Care Provider] - Stand Alone Forms: Patient Portal/API/Survey
[2024-07-10] MEDS: LORazepam 2 MG/ML INJ 4 MG IV (18:45)
[2024-07-10] MEDS: POTASSIUM CHLORIDE 20 MEQ/15 ML UDC 40 MEQ PO (18:58)
[2024-07-10] MEDS: levETIRAcetam 2,000 MG in SODIUM CHLORIDE 0.9% 100 ML 480 MG IV (18:58)
[2024-07-10] MEDS: ACETAMINOPHEN 325 MG TABLET 650 MG PO (18:59)
--- NOTE | 2024-07-10 19:57 | PC.NURSE ---
Addendum entered by Deedee Hart R.N. 07/10/24 19:58: Provider aware that father brought in home meds, the Oxcarbazepine has been ordered by the provider, pt want to take her own meds, provider approved. Pt taking med now. Original Note: Pt's father brought her evening dose of Oxcarbazepine 1200 from home for her to take, she take 2, 600mg tabs.
[2024-07-10 21:55] LABS: Influenza A - CEPHEID Flu A NEGATIVE (NEGATIVE); Influenza B - CEPHEID Flu B NEGATIVE (NEGATIVE); Respiratory Syncytial Virus Negative (Negative)
[2024-07-10 22:01] LABS: COVID-19 CEPHEID 4-PLEX PCR Negative (Negative)
[2024-07-11] VITALS (22 sets, daily range): BP systolic 105–125; BP diastolic 55–83; PULSE 99–126; RESP 18–28; O2SAT 94–97
--- NOTE | 2024-07-11 05:40 | PC.NURSE ---
PT Laying in bed, with eyes closed, breathing steady, no visible seizure activity seen at this time.
[2024-07-11] MEDS: OXcarbazepine 150 MG TABLET 1200 MG PO (09:37)
[2024-07-11] MEDS: ACETAMINOPHEN 325 MG TABLET 650 MG PO (10:31)
== END 2024-07-11 10:30 | disposition home or self-care (01) ==
PROVIDERS: Emergency Medicine; Emergency Provider Emergency Medicine; Family Provider Family Medicine; PCP Family Medicine
DX: G40.901 Epilepsy, unspecified, not intractable, with status epilepticus (principal); E87.6 Hypokalemia; G93.89 Other specified disorders of brain; Z98.890 Other specified postprocedural states
CPT/HCPCS: 87635; 87400 ×2; 87420; 0241U; 70450; 80053; 82962; 83735; 84702; 85025; 96365; 96375; 99284; 99291; J1953; J2060

== ENCOUNTER → 2024-07-16 16:32 | Outpatient (CLI) | payer OTHER, SELFPAY ==
[2024-07-16 17:48] LABS: Alanine Aminotransferase 24 IU/L (<35); Albumin 4.4 g/dL (3.5-5.0); Albumin Globulin Ratio 1.5 (1.0-2.8); Alkaline Phosphatase 62 U/L (38-126); Aspartate Aminotransferase 20 IU/L (14-36); BUN Creatinine Ratio 11.1 (6-22); Bilirubin Total 0.3 mg/dL (0.2-1.3); Blood Urea Nitrogen 7 mg/dL (7-17); Calcium 9.4 mg/dL (8.4-10.2); Carbon Dioxide 29 mmol/L (22-32); Chloride 104 mmol/L (98-107); Estimated Glomerular Filt Rate > 60 mL/min (>60); Globulin 2.9 g/dL (1.7-4.1); Glucose 88 mg/dL (70-100); HEMOLYSIS 22 (0-50); Potassium 4.6 mmol/L (3.4-5.1); Sodium 139 mmol/L (137-145); Total Protein 7.3 g/dL (6.3-8.2)
== END ==
LOC: LAB 16:33
PROVIDERS: Family Provider Family Medicine; PCP Family Medicine; Referring Provider Psychiatry & Neurology Neurology; Visit Provider Psychiatry & Neurology Neurology
DX: G40.109 Localization-related (focal) (partial) symptomatic epilepsy and epileptic syndromes with simple partial seizures, not intractable, without status epilepticus (principal)
CPT/HCPCS: 36415; 80053; 80183

== ENCOUNTER → 2024-07-21 16:59 | Outpatient (CLI) | payer OTHER, SELFPAY ==
[2024-07-21 17:22] LABS: Add Manual Diff / Slide Review NO; Basophils Absolute Auto 0 /uL (0-100); Basophils Percent Auto 0.5 % (0-2); Eosinophils Absolute Auto 100 /uL (0-450); Hematocrit 41.2 % (36-46); Hemoglobin 13.7 g/dL (12.0-16.0); Lymphocytes Absolute Auto 1900 /uL (1100-4500); Lymphocytes Percent Auto 24.4 % (25-40); Mean Corpuscular HGB Conc 33.3 % (30-36); Mean Corpuscular Hemoglobin 27.5 PG (26-34); Mean Corpuscular Volume 82.6 fL (80-100); Monocytes Absolute Auto 400 /uL (0-900); Monocytes Percent Auto 5.3 % (3-14); Neutrophils Absolute Auto 5400 /uL (1500-7000); Neutrophils Percent Auto 68.8 % (50-75); Platelet Count 338 X10^3/uL (150-400); Red Blood Cell Count 4.99 X10^6/uL (4.0-5.2); White Blood Cell Count 7.9 X10^3/uL (4.5-11.0)
[2024-07-21 18:19] LABS: TSH w/ Reflex to FT4 1.88 uIU/mL (0.47-4.68)
== END ==
PROVIDERS: Family Provider Family Medicine; PCP Family Medicine; Referring Provider Family Medicine; Visit Provider Family Medicine
DX: E03.9 Hypothyroidism, unspecified (principal)
CPT/HCPCS: 36415; 84443; 85025

== ENCOUNTER → 2024-08-17 16:59 | Outpatient (CLI) | payer OTHER, SELFPAY ==
--- NOTE | 2024-08-17 16:59 | DI.MRI.S_ITS ---
PROCEDURE: MR HEAD/BRAIN WO/W CON INDICATIONS: seizure disorder, epilepsy, hx brain surgery TECHNIQUE: Noncontrast axial T1 spin echo, axial T2 fast spin echo, sagittal and axial FLAIR, coronal T2 fast spin echo, axial gradient echo, axial diffusion and ADC through the brain. After the administration of contrast, axial and coronal and sagittal 3D VIBE or T1 spin echo with fat saturation through the brain. COMPARISON: [facility], CT, CT HEAD/BRAIN WO CON, 07/10/2024, 17:55. FINDINGS: Image quality: Diagnostic, with note made of motion artifact. CSF Spaces: Basal cisterns are patent. Ventricles are stable, with ex vacuo dilatation seen involving the right lateral ventricle. Mild increased fluid can be seen adjacent to the right cerebral hemisphere, which is considered to be within normal limits given the right-sided volume loss. Brain: Prior resection change can be seen within the right frontal lobe, with volume loss and encephalomalacia. Generalized brain parenchymal volume loss can be seen involving the right cerebral hemisphere compared to the left. There is associated 2 mm midline shift. No intracranial bleeds or masses. No abnormal intracranial enhancement. The brainstem appears normal. Diffusion-weighted images demonstrate no acute infarct. No chronic ischemic insults. Normal intravascular flow voids are present. Skull and face: Right-sided craniotomy change is seen. Calvarial marrow is normal in signal. Orbits appear normal. Sinuses: Sinuses and mastoids appear clear. IMPRESSION: Prior resection change can be seen on the right-side. Generalized brain parenchymal volume loss can be seen throughout the right cerebral hemisphere, with associated mild extra-axial fluid on the right and 2 mm midline shift. No masses or abnormal enhancement can be seen. Dictated by: Bravo Christensen M.D. on 08/17/2024 at 17:07 Approved by: Bravo Christensen M.D. on 08/17/2024 at 17:10
== END ==
PROVIDERS: Family Provider Family Medicine; PCP Family Medicine; Referring Provider Family Medicine; Visit Provider Family Medicine
DX: G40.909 Epilepsy, unspecified, not intractable, without status epilepticus (principal); G93.89 Other specified disorders of brain; Z98.890 Other specified postprocedural states
CPT/HCPCS: 70553; A9579

== ENCOUNTER → 2024-10-22 15:32 | Outpatient (CLI) | payer OTHER, SELFPAY ==
[2024-10-22 17:20] LABS: Add Manual Diff / Slide Review NO; Basophils Absolute Auto 0 /uL (0-100); Basophils Percent Auto 0.4 % (0-2); Eosinophils Absolute Auto 200 /uL (0-450); Eosinophils Percent Auto 1.9 % (2-4); Hematocrit 39.3 % (36-46); Hemoglobin 13.3 g/dL (12.0-16.0); Lymphocytes Absolute Auto 3000 /uL (1100-4500); Lymphocytes Percent Auto 33.2 % (25-40); Mean Corpuscular HGB Conc 33.7 % (30-36); Mean Corpuscular Hemoglobin 28.5 PG (26-34); Mean Corpuscular Volume 84.5 fL (80-100); Monocytes Absolute Auto 600 /uL (0-900); Monocytes Percent Auto 6.8 % (3-14); Neutrophils Absolute Auto 5300 /uL (1500-7000); Neutrophils Percent Auto 57.7 % (50-75); Platelet Count 314 X10^3/uL (150-400); Red Blood Cell Count 4.65 X10^6/uL (4.0-5.2); Red Cell Distribution Width 14.6 % (11.6-14.8); White Blood Cell Count 9.2 X10^3/uL (4.5-11.0)
[2024-10-22 17:34] LABS: Alanine Aminotransferase 32 IU/L (<35); Albumin 4.4 g/dL (3.5-5.0); Albumin Globulin Ratio 1.5 (1.0-2.8); Alkaline Phosphatase 68 U/L (38-126); Aspartate Aminotransferase 21 IU/L (14-36); BUN Creatinine Ratio 10.8 (6-22); Bilirubin Total 0.3 mg/dL (0.2-1.3); Blood Urea Nitrogen 8 mg/dL (7-17); Calcium 9.5 mg/dL (8.4-10.2); Carbon Dioxide 22 mmol/L (22-32); Chloride 106 mmol/L (98-107); Estimated Glomerular Filt Rate > 60 mL/min (>60); Glucose 92 mg/dL (70-100); HEMOLYSIS < 15 (0-50); Potassium 4.1 mmol/L (3.4-5.1); Sodium 138 mmol/L (137-145); Total Protein 7.4 g/dL (6.3-8.2)
== END ==
PROVIDERS: Family Provider Family Medicine; PCP Family Medicine; Referring Provider Family Medicine; Visit Provider Family Medicine
DX: G40.909 Epilepsy, unspecified, not intractable, without status epilepticus (principal); E66.813 Obesity, class 3; E66.01 Morbid (severe) obesity due to excess calories; Z86.69 Personal history of other diseases of the nervous system and sense organs; Z68.41 Body mass index [BMI] 40.0-44.9, adult; G40.901 Epilepsy, unspecified, not intractable, with status epilepticus
CPT/HCPCS: 36415; 80053; 85025

== ENCOUNTER → 2024-10-23 15:35 | Outpatient (CLI) | payer OTHER, SELFPAY ==
[2024-10-23 16:28] LABS: Add Manual Diff / Slide Review NO; Basophils Absolute Auto 100 /uL (0-100); Basophils Percent Auto 0.7 % (0-2); Eosinophils Absolute Auto 100 /uL (0-450); Hemoglobin 13.2 g/dL (12.0-16.0); Lymphocytes Absolute Auto 2900 /uL (1100-4500); Lymphocytes Percent Auto 39.5 % (25-40); Mean Corpuscular Hemoglobin 28.5 PG (26-34); Mean Corpuscular Volume 83.9 fL (80-100); Monocytes Absolute Auto 500 /uL (0-900); Monocytes Percent Auto 6.1 % (3-14); Neutrophils Absolute Auto 3800 /uL (1500-7000); Neutrophils Percent Auto 51.7 % (50-75); Platelet Count 315 X10^3/uL (150-400); Red Blood Cell Count 4.64 X10^6/uL (4.0-5.2); Red Cell Distribution Width 14.5 % (11.6-14.8); White Blood Cell Count 7.4 X10^3/uL (4.5-11.0)
[2024-10-23 16:47] LABS: Alanine Aminotransferase 31 IU/L (<35); Albumin 4.4 g/dL (3.5-5.0); Albumin Globulin Ratio 1.5 (1.0-2.8); Alkaline Phosphatase 64 U/L (38-126); Aspartate Aminotransferase 20 IU/L (14-36); BUN Creatinine Ratio 11.1 (6-22); Bilirubin Total 0.4 mg/dL (0.2-1.3); Blood Urea Nitrogen 8 mg/dL (7-17); Calcium 9.4 mg/dL (8.4-10.2); Carbon Dioxide 22 mmol/L (22-32); Chloride 106 mmol/L (98-107); Estimated Glomerular Filt Rate > 60 mL/min (>60); Globulin 2.9 g/dL (1.7-4.1); Glucose 103 mg/dL (70-100); HEMOLYSIS < 15 (0-50); Sodium 139 mmol/L (137-145); Total Protein 7.3 g/dL (6.3-8.2)
== END ==
LOC: LAB 15:38
PROVIDERS: Family Provider Family Medicine; PCP Family Medicine; Referring Provider Psychiatry & Neurology Neurology; Visit Provider Psychiatry & Neurology Neurology
DX: Z51.81 Encounter for therapeutic drug level monitoring (principal); G40.219 Localization-related (focal) (partial) symptomatic epilepsy and epileptic syndromes with complex partial seizures, intractable, without status epilepticus
CPT/HCPCS: 36415; 80053; 80177; 80183; 85025

== ENCOUNTER 2024-11-09 14:30 | Outpatient (RCR) | payer OTHER, SELFPAY ==
--- NOTE | 2024-08-19 13:26 | OT.OPPOC ---
Physical, Occupational & Speech Therapy At [facility] Mona Sales [id number] 2000 Visit Care Team Role Provider Type Cirilo Bryan MD Attending Provider Physician Family Provider Primary Care Provider Referring Provider Address: [address] [place] [address], [id number] Occupational Therapy Plan of Care OT Outpatient Adult Evaluation Start: 08/19/24 11:31 Freq: Status: Active Protocol: Document 08/19/24 11:31 LISA (Rec: 08/19/24 13:25 JOYPANOMI [id number]) General Information - Adult Visit Information Visit Number 1 Plan of Care Dates 08/19/24 - 11/18/24 Insurance Information [employer] (eval only, then max of 24 units) Session Time Visit Start Date 08/19/24 Visit Start Time 11:30 Visit Stop Time 12:17 Setting Treatment Setting Outpatient Care Visit Type Note Type Initial Evaluation Referral Referring Physician Cirilo Bryan Reason for Referral epilepsy, weakness Identification Identification Confirmed Yes Identification Confirmed By name, MR, parent Patient Questionnaires Quick Dash- Upper Extremity Quick Dash UE Score 54.5 Quick Dash UE Impairment 40 to 59% Impaired (Score 40- 59) Goals Objective Measurements Objective Measurements AROM: R UE WFL, L UE ~30 deg of shoulder flex, L thumb radial abd WFL during grasp release task AAROM L UE WFL for all planes of movement MMT: R: shldr flex 4-, shldr ext 3+, abd 4, add 5; R elbow: flex 4-, ext 4 Pecan Picker: R 65, 65, 47 (avg 59#); L 5, 5, 11 (7#) Pinch: lateral R 18#, L 6#; pincer R 10#, L 8#; 3 jaw R 10 #, L 2# (For all warp placer and pinch measurements, OT has to open and place pt's hand in position to initiate measurement) Short Term Goals Short Term Goals 1. Pt will increase R UE strength by 1/4 muscle grade to improve functional daily use. 2. Pt will increase L shoulder flex to 60 deg or better for improved under arm hygiene. 3. Pt will grasp/release small objects with L hand in 3 out of 10 trials with min A. 4. Pt will be I with SROM initial HEP. Usp Goals Usp Goals 1. Pt will increase R US strength by 1/2 muscle grade to improve functional daily use. 2. Pt will identify one functional task she would like to engage in at home. 3. Pt will grasp/release small objects with L hand 6 out of 10 trials with set up. 4. Pt will be I with upgraded HEP. Assessment/Plan Assessment Patient Response Fair Rehabilitation Potential Good Impairments Identified ADLs,Balance,Body Mechanics, Cognition,Coordination/ Dexterity,Flexibility, Functional Activities,Memory, Motor Function,Weakness, Posture,Range of Motion, Meaningful Activities, Spasticity,Motor Planning,Eye- Hand Coordination Treatment Assessment Patient is a 23 yo F referred for skilled OT services due to weakness and epilepsy. Pt is right hand dominant with a medical history significant for depression, seizures, vision impairment, selective mutism, and 2 brain surgeries; she is on a anti-seizure medication. Pt reports that she had 3 seizures in the same day about 1 month ago. Pt resides in [place], [place] w/ her father and their roommate. Pt reports spending most of her time in her own room. Since her recent seizures pt reports being very tired and sleeping a lot. For leisure, pt reports listening to music on her personal cell phone and tablet. She denies currently doing art or crafts. Pt receives help with cleaning her room and meal preparation. Pt reports having assistance for all of her BADLs to include showering (max A), dressing (max-total A) and doing her hair (total A). For bathing, she has a shower chair, 1 grab bar, a handheld shower head, and a long handled sponge. Pt reports that she is able to feed herself once her food has been cut. Pts father reports that she has needed increased assistance with walking to the bathroom. Pt reports that she is able to manage her clothing and toileting hygiene without assistance. Pt reports that she has a SC, QC, FWW, and a gait head athletic trainer/strength coach. She frequently furniture walks in her room. Pt has increased fluctuating tone in her L UE with her hand having significant flexor tone. At rest, pt has forward shoulder posture and keeps her L UE internally rotated with elbow extended and hand fisted. She required OT to open her hand. Pt has minimal active ROM of L UE, but is able to perform to WFL with AAROM (see objective section for specific details). Pt denies any pain at time of eval. Pt states ?I can?t really feel my left side.? OT touched pts dorsal hand and asked pt if she could feel that pt stated ?slightly?. Pt would not follow commands for specific sensation testing. At time of evaluation, patient was unable to identify specific functional goals that she would like to work on. Thus, further discussion is needed in order to establish meaningful goals that are client specific. Pt does state that therapy has helped her ?feel better? in the past. OT discussed educating pt on AE and dressing techniques to improve her functional I, but pt declines these options. Pt reports that she is shy and that it takes her ?a while to warm up? she also mentioned being very comfortable with her previous OT. When asked if she would like to use her L UE more functionally, pt says ?that sounds good?. Skilled OT services are appropriate to address functional use of L UE, to address BADL/IADL tasks if pt is willing, to improve general strengthening B UEs and posture, and to encourage meaningful functional tasks. Reviewed with Patient Goals Patient Understanding Fair Plan Length of treatment (weeks) 13 Plan of Care Start Date 08/19/24 Plan of Care End Date 11/18/24 Treatment Frequency Once a Week Treatment Duration 30 Minutes Therapeutic Contents Active Range of Motion, Adaptive Equipment Education, Cognitive Skills Development, Functional Activities,Home Exercise Program,Manual Therapy,Education, Neuromuscular Re-Education, Self-Care,Splinting,Stretching /Flexibility Activities, Therapeutic Activities, Therapeutic Exercises, Modalities,Sensory Re- education Modalities As Needed Types of Modalities E-Stim Patient Instruction Plan of Care,Questions/ Concerns Suggested Referrals Physical Therapy Functional Wrist/Hand Scan Hand Side Sensory Assessment Sensory Profile2 Electronically Signed by: Anel Ortiz OT 08/19/24 5264 If you are in agreement with this Plan of Care, please return a signed and dated copy. I have reviewed this Plan of Care and certify that the skilled therapy services above are required to meet the patient?s needs. Physician Signature Date Printed Name and Credentials Clinical Instructor Signature Printed Name and Credentials
--- NOTE | 2024-08-26 13:43 | OT.OP.TRT ---
Visit Care Team Role Provider Type Cirilo Bryan MD Attending Provider Physician Family Provider Primary Care Provider Referring Provider Specialty: Family Practice Address: [address] [place] [address], [facility] Email: [email or web address] Occupational Therapy Treatment Note OT Outpatient Treatment Note - Adult Start: 08/19/24 11:31 Freq: Status: Active Protocol: Document 08/26/24 13:21 LISA (Rec: 08/26/24 13:43 LISA [id number]) OT Outpatient Adult Treatment Note Session Time Visit Start Date 08/26/24 Visit Start Time 11:40 Visit Stop Time 12:10 Visit Information Visit Number 08/20 Plan of Care Dates 08/19/24 - 11/18/24 Insurance Information [employer] (max of 24 units) Setting Treatment Setting Outpatient Care Visit Type Note Type Treatment Note - Subjective Identification Type Name Identification Reconciled With Medical Record Observations Pt reports that I just woke up. Pt unable to state specific goals that she would like to work on. Chief Complaint(s) Loss of Motion/Stiffness - Objective Short Term Goals 1. Pt will increase R UE strength by 1/4 muscle grade to improve functional daily use. 2. Pt will increase L shoulder flex to 60 deg or better for improved under arm hygiene. 3. Pt will grasp/release small objects with L hand in 3 out of 10 trials with min A. 4. Pt will be I with SROM initial HEP. Seafood And Service Meat Manager Goals 1. Pt will increase R UE strength by 1/2 muscle grade to improve functional daily use. 2. Pt will identify one functional task she would like to engage in at home. 3. Pt will grasp/release small objects with L hand 6 out of 10 trials with set up. 4. Pt will be I with upgraded HEP. - Treatment 8 Descriptor Visual field strategies. Pt states she cannot see her HEP due to her vision field cuts. OT taught pt how to find the edge of the paper and then turn her head to see the full hand out. Pt verbalized she was able to see the entire page with this strategy. Exercises 9 Descriptor AAROM/GMC: table top reaching for targets with towel under arm x10 targets with min A when toward left of center 8 Descriptor SROM:x10 each shoulder flexion shoulder horizontal abd/add shouler IR/ER elbow flex/ext pronation and supination Side Both Physical Assistance Min Assistance Verbal Cues Mod Cues Manual Therapy Manual Therapy manual stretch to L digits and palm to open for preparation for weight bearing. OT able to get open palm position, but tone increases too much for effective weight bearing when adding in wrist flexion - Assessment Patient Response to Treatment Fair Rehabilitation Potential Good Impairments Identified ADLs,Balance,Body Mechanics, Cognition,Contractures, Coordination/Dexterity, Flexibility,Functional Activities,Memory,Motor Function,Weakness,Posture, Range of Motion,Meaningful Activities,Spasticity,Motor Planning,Eye-Hand Coordination Progress Towards Goals Slow Progress Assessment of Improvement Pt is pleasant and cooperative . Pt needed CGA to amb back to tx room and for CGA for all sit>stand throughout tx. Pt required min-mod A to complete SROM exercises. These exercises are meant to help improve functional use and muscle weakness with B UEs. OT educated pt on visual strategy to be able to see her HEP sheet. Prior to strategy pt said she was having difficulty seeing the exercises, following strategy pt said she could see them completely. Pt needs min encouragement for AAROM reaching task on table top reaching for targets. OT able to get pts L palm open manually, but her tone increases when adding in wrist extension preventing open palm weight bearing. Cont per established POC. Reviewed with Patient/Caregiver Home Exercise Program Patient/Caregiver Understanding Fair - Plan Therapy Recommendations Continue with Current Program Amount of Therapy Recommended Other Comment 13 weeks Frequency of Treatment Once a Week Length of Session 30 Minutes Therapeutic Contents Active Range of Motion, Adaptive Equipment Education, Cognitive Skills Development, Functional Activities,Home Exercise Program,Manual Therapy,Education, Neuromuscular Re-Education, Self-Care,Splinting,Stretching /Flexibility Activities, Therapeutic Activities, Therapeutic Exercises, Modalities,Sensory Re- education Modalities As Needed Types of Modalities E-Stim Suggested Referrals Physical Therapy
--- NOTE | 2024-08-31 13:12 | OT.OP.TRT ---
Visit Care Team Role Provider Type Cirilo Bryan MD Attending Provider Physician Family Provider Primary Care Provider Referring Provider Specialty: Family Practice Address: [address] [place] [address], [facility] Email: [email or web address] Occupational Therapy Treatment Note OT Outpatient Treatment Note - Adult Start: 08/19/24 11:31 Freq: Status: Active Protocol: Document 08/31/24 12:52 LISA (Rec: 08/31/24 13:12 LISA [id number]) OT Outpatient Adult Treatment Note Session Time Visit Start Date 08/31/24 Visit Start Time 11:37 Visit Stop Time 12:07 Visit Information Visit Number 09/17 Plan of Care Dates 08/19/24 - 11/18/24 Insurance Information [employer] (max of 24 units) Setting Treatment Setting Outpatient Care Visit Type Note Type Treatment Note - Subjective Identification Type Name Identification Reconciled With Medical Record Observations Pt reported that she was very tired today. She visited her grandparents with her aunt this weekend. She also went with her aunt this morning to her old school. Pt says she used to wear splints on on L hand but that she does not know where they are. Chief Complaint(s) Loss of Motion/Stiffness - Objective Short Term Goals 1. Pt will increase R UE strength by 1/4 muscle grade to improve functional daily use. 2. Pt will increase L shoulder flex to 60 deg or better for improved under arm hygiene. 3. Pt will grasp/release small objects with L hand in 3 out of 10 trials with min A. 4. Pt will be I with SROM initial HEP. Intermediate Goals 1. Pt will increase R UE strength by 1/2 muscle grade to improve functional daily use. 2. Pt will identify one functional task she would like to engage in at home. 3. Pt will grasp/release small objects with L hand 6 out of 10 trials with set up. 4. Pt will be I with upgraded HEP. - Treatment 9 Descriptor Weight bearing with palm on small nerf ball, pushing into palm x 4minutes with min A to maintain positioning and ensure pt is pushing into hand 8 Descriptor Education: OT educated pt on tone management, skin protection, and the benefit of wearing a splint on her L hand. OT encourages pt to try to find her existing splint to see if it will be appropriate for her. OT re-educated pt on her HEP SROM/AAROM exercises. Exercises 9 Descriptor AAROM/GMC: 5 palacios bags are placed in semi pilot station around pt with table at chest height. Pt reaches and pushes each target towards the edge of the table. Pt able to accurately reach targets and push in straight path. Pt performs 5x3 8 Descriptor SROM:x10 each shoulder flexion shoulder horizontal abd/add shouler IR/ER elbow flex/ext pronation and supination (more AAROM) wrist flex and ext (more AAROM ) Side Both Physical Assistance Min Assistance Verbal Cues Mod Cues Manual Therapy Manual Therapy manual stretch to L digits and palm to open for preparation for weight bearing. OT able to get digits open enough to reach around small nerf ball for WB activity. - Assessment Patient Response to Treatment Fair Rehabilitation Potential Good Impairments Identified ADLs,Balance,Body Mechanics, Cognition,Contractures, Coordination/Dexterity, Flexibility,Functional Activities,Memory,Motor Function,Weakness,Posture, Range of Motion,Meaningful Activities,Spasticity,Motor Planning,Eye-Hand Coordination Progress Towards Goals Slow Progress Assessment of Improvement Pt is pleasant and cooperative . Pt continues to need CGA to amb back to tx room and for CGA for all sit>stand throughout tx. Pt had increased tone in L hand today . OT educated pt on importance of skin protection and hygiene and encouraged pt to find her splint to improve the overall positioning of her L hand. Pt was able to perform SROM exercises with a less physical assistance. She did require tc cues to encourage full available ROM for each exercises. Pt performs forearm pronation/supination and wrist flex/ext with more AAROM than SROM. Pt issued these exercises and is encouraged to perform daily at home. OT will continue to review these. Pt was able to perform table top SROM to targets placed in a semi pilot station around her. She is able to reach extend her UE in straight lines, but is unable to perform with an arc type motion. Pt had increased tone in her L hand today, requiring more work for OT able to get pts L hand open. OT was able to open enough to place small nerf ball in her palm. Pt was able to perform WB into that palm with min A. OT will continue to reinforce education concerning skin care, tone mgmt, and strengthening. Cont per established POC. Reviewed with Patient/Caregiver Home Exercise Program Patient/Caregiver Understanding Fair - Plan Therapy Recommendations Continue with Current Program Amount of Therapy Recommended Other Comment 13 weeks Frequency of Treatment Once a Week Length of Session 30 Minutes Therapeutic Contents Active Range of Motion, Adaptive Equipment Education, Cognitive Skills Development, Functional Activities,Home Exercise Program,Manual Therapy,Education, Neuromuscular Re-Education, Self-Care,Splinting,Stretching /Flexibility Activities, Therapeutic Activities, Therapeutic Exercises, Modalities,Sensory Re- education Modalities As Needed Types of Modalities E-Stim Suggested Referrals Physical Therapy
--- NOTE | 2024-09-07 12:22 | OT.OP.TRT ---
Visit Care Team Role Provider Type Cirilo Bryan MD Attending Provider Physician Family Provider Primary Care Provider Referring Provider Specialty: Family Practice Address: [address] [place] [address], [facility] Email: [email or web address] Occupational Therapy Treatment Note OT Outpatient Treatment Note - Adult Start: 08/19/24 11:31 Freq: Status: Active Protocol: Document 09/07/24 11:41 LISA (Rec: 09/07/24 12:11 LISA [id number]) OT Outpatient Adult Treatment Note Session Time Visit Start Date 09/07/24 Visit Start Time 11:40 Visit Stop Time 12:10 Visit Information Visit Number 10/18 Plan of Care Dates 08/19/24 - 11/18/24 Insurance Information [employer] (max of 24 units) Setting Treatment Setting Outpatient Care Visit Type Note Type Treatment Note - Subjective Identification Type Name Identification Reconciled With Medical Record Observations Pt reports that she is tired at start of tx. Pt said she spent a lot of time sleeping this weekend. When asked if she had help with her HEP, pt states a little and a friend. Pt unable to state which exercises she performed. She says she can't remember which ones. Chief Complaint(s) Loss of Motion/Stiffness - Objective Short Term Goals 1. Pt will increase R UE strength by 1/4 muscle grade to improve functional daily use. 2. Pt will increase L shoulder flex to 60 deg or better for improved under arm hygiene. 3. Pt will grasp/release small objects with L hand in 3 out of 10 trials with min A. 4. Pt will be I with SROM initial HEP. Half-Way Goals 1. Pt will increase R UE strength by 1/2 muscle grade to improve functional daily use. 2. Pt will identify one functional task she would like to engage in at home. 3. Pt will grasp/release small objects with L hand 6 out of 10 trials with set up. 4. Pt will be I with upgraded HEP. - Treatment 9 Descriptor Weight bearing with palm on small nerf ball, pushing into palm x 4minutes with min A to maintain positioning and ensure pt is pushing into hand 8 Descriptor Education: OT re-educated pt on tone management, skin protection, and the benefit of wearing a splint on her L hand. OT encourages pt to try to find her existing splint to see if it will be appropriate for her. OT re-educated pt on her HEP SROM/AAROM exercises. OT sent a note home with pt asking about the splint. Exercises 9 Descriptor AAROM/GMC: 5 palacios bags are placed in semi andreafski around pt with table at chest height. Pt reaches and pushes each target towards the edge of the table. Pt able to accurately reach targets and push in straight path. Pt performs 5x3 8 Descriptor SROM:x10 each shoulder flexion shoulder horizontal abd/add shoulder IR/ER (some AAROM) elbow flex/ext pronation and supination (more AAROM) wrist flex and ext (more AAROM ) Side Both Physical Assistance Min Assistance Verbal Cues Mod Cues Manual Therapy Manual Therapy manual stretch to L digits and palm to open for preparation for weight bearing. Pt requires total A to open L digits and place on ball. OT able to get digits open enough to reach around small nerf ball for WB activity. - Assessment Patient Response to Treatment Fair Rehabilitation Potential Good Impairments Identified ADLs,Balance,Body Mechanics, Cognition,Contractures, Coordination/Dexterity, Flexibility,Functional Activities,Memory,Motor Function,Weakness,Posture, Range of Motion,Meaningful Activities,Spasticity,Motor Planning,Eye-Hand Coordination Progress Towards Goals Slow Progress Assessment of Improvement Pt is pleasant and cooperative . Pt continues to need CGA to amb back to tx room and for CGA for all sit>stand throughout tx. Pt continues to have significant increased tone in L hand. OT re-educated pt on importance of skin protection and hygiene and encouraged pt to find her splint to improve the overall positioning of her L hand. OT sent a note home with pt for her father asking about the splint. Pt was able to perform SROM exercises with a less physical assistance. She is able to perform them with OT using her hands as targets to encourage full available ROM for each exercises. Pt may be somewhat self limiting. Pt reports having performed her HEP at home some, but is unable to demonstrate or state any of the exercises. OT will continue to review these. Pt was able to perform table top SROM to targets placed in a semi andreafski around her. She is able to reach extend her UE in straight lines, but is unable to perform with an arc type motion. Pt required total A to open her L hand. OT was able to open enough to place small nerf ball in her palm. Pt was able to perform WB into that palm with min A and vcs to weight shift. OT will continue to reinforce education concerning skin care , tone mgmt, and strengthening . Cont per established POC. Reviewed with Patient/Caregiver Home Exercise Program Patient/Caregiver Understanding Fair - Plan Therapy Recommendations Continue with Current Program Amount of Therapy Recommended Other Comment 13 weeks Frequency of Treatment Once a Week Length of Session 30 Minutes Therapeutic Contents Active Range of Motion, Adaptive Equipment Education, Cognitive Skills Development, Functional Activities,Home Exercise Program,Manual Therapy,Education, Neuromuscular Re-Education, Self-Care,Splinting,Stretching /Flexibility Activities, Therapeutic Activities, Therapeutic Exercises, Modalities,Sensory Re- education Modalities As Needed Types of Modalities E-Stim Suggested Referrals Physical Therapy
--- NOTE | 2024-09-14 13:15 | OT.OP.TRT ---
Visit Care Team Role Provider Type Cirilo Bryan MD Attending Provider Physician Family Provider Primary Care Provider Referring Provider Specialty: Family Practice Address: [address] [place] [address], [facility] Email: [email or web address] Occupational Therapy Treatment Note OT Outpatient Treatment Note - Adult Start: 08/19/24 11:31 Freq: Status: Active Protocol: Document 09/14/24 11:36 LISA (Rec: 09/14/24 11:54 LISA [id number]) OT Outpatient Adult Treatment Note Session Time Visit Start Date 09/14/24 Visit Start Time 11:39 Visit Stop Time 12:09 Visit Information Visit Number 11/17 Plan of Care Dates 08/19/24 - 11/18/24 Insurance Information [employer] (max of 24 units) Setting Treatment Setting Outpatient Care Visit Type Note Type Treatment Note - Subjective Identification Type Name Identification Reconciled With Medical Record Observations Pt reports she was able to stay a couple of days this weekend with her grandparents. Pt reports that her aunt was visiting. 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 Pt reports that she is tired at start of tx. Pt reports that she usually gets up later in the day than her scheduled OT appointment. Pt reports that her HEP is hard to do. She reports that friends that come over and her roommate help her with her HEP. Chief Complaint(s) Loss of Motion/Stiffness - Objective Short Term Goals 1. Pt will increase R UE strength by 1/4 muscle grade to improve functional daily use. 2. Pt will increase L shoulder flex to 60 deg or better for improved under arm hygiene. 3. Pt will grasp/release small objects with L hand in 3 out of 10 trials with min A. 4. Pt will be I with SROM initial HEP. Group Home Goals 1. Pt will increase R UE strength by 1/2 muscle grade to improve functional daily use. 2. Pt will identify one functional task she would like to engage in at home. 3. Pt will grasp/release small objects with L hand 6 out of 10 trials with set up. 4. Pt will be I with upgraded HEP. - Treatment 9 Descriptor Weight bearing with palm on small nerf ball, pushing into palm x 46 minutes with min-mod A to maintain positioning and ensure pt is pushing into hand. OT provides tactile cues for weight shifting as tolerated Exercises 9 Descriptor AAROM/GMC: 5 palacios bags are placed in semi [place] around pt with table at chest height. Pt reaches and pushes each target towards the edge of the table. Pt able to accurately reach targets and push in straight path. Pt performs 5x3. Pt requires vc to reach as far as she is able 8 Descriptor SROM:x10 each shoulder flexion shoulder horizontal abd/add shoulder IR/ER (some AAROM) elbow flex/ext pronation and supination (more AAROM) wrist flex and ext (more AAROM ) Side Both Physical Assistance Min Assistance Verbal Cues Mod Cues Manual Therapy Manual Therapy manual stretch and extended hold to L digits and palm to open for preparation for weight bearing. Pt requires total A to open L digits and place on ball. OT able to get digits open enough to be placed around small nerf ball for WB activity. - Assessment Patient Response to Treatment Fair Rehabilitation Potential Good Impairments Identified ADLs,Balance,Body Mechanics, Cognition,Contractures, Coordination/Dexterity, Flexibility,Functional Activities,Memory,Motor Function,Weakness,Posture, Range of Motion,Meaningful Activities,Spasticity,Motor Planning,Eye-Hand Coordination Progress Towards Goals Slow Progress Assessment of Improvement Pt is pleasant and cooperative . Pt continues to need CGA to amb back to tx room and for CGA for all sit>stand throughout tx. Pt did not bring her splint to treatment. OT reminds pt about concerns for skin protection and hygiene of L hand, will continue to address as able. Pt continues to present with significant flexor tone in L hand. Pt tolerates manual stretch of L hand by OT in preparation for WB task. Pt continues to require min-mod A during WB task. Pt was able to perform SROM exercises with a less physical assistance. She is able to perform them with OT using her hands as targets to encourage full available ROM for each exercises. Pt was able to perform IR/ER, elbow flex/ext, wrist flex/ext, and pronation /supination with more AAROM than SROM today. Pt requires some verbal encouragement to reach as far as she is able during table top SROM. She continues to be able to reach in straight lines, but is unable to perform with an arc type motion. Pt continues to be unable to state a meaningful functional goal to address during therapy. OT continues to encourage pt to consider a specific goal that would be meaningful to her. Cont per established POC. Reviewed with Patient/Caregiver Home Exercise Program Patient/Caregiver Understanding Fair - Plan Therapy Recommendations Continue with Current Program Amount of Therapy Recommended Other Comment 13 weeks Frequency of Treatment Once a Week Length of Session 30 Minutes Therapeutic Contents Active Range of Motion, Adaptive Equipment Education, Cognitive Skills Development, Functional Activities,Home Exercise Program,Manual Therapy,Education, Neuromuscular Re-Education, Self-Care,Splinting,Stretching /Flexibility Activities, Therapeutic Activities, Therapeutic Exercises, Modalities,Sensory Re- education Modalities As Needed Types of Modalities E-Stim Suggested Referrals Physical Therapy
--- NOTE | 2024-09-23 15:35 | OT.OP.TRT ---
Visit Care Team Role Provider Type Cirilo Bryan MD Attending Provider Physician Family Provider Primary Care Provider Referring Provider Specialty: Family Practice Address: [address] [place] [address], [facility] Email: [email or web address] Occupational Therapy Treatment Note OT Outpatient Treatment Note - Adult Start: 08/19/24 11:31 Freq: Status: Active Protocol: Document 09/23/24 15:23 [facility] (Rec: 09/23/24 15:34 [facility] [id number]) OT Outpatient Adult Treatment Note Session Time Visit Start Date 09/14/24 Visit Start Time 14:45 Visit Stop Time 15:15 Visit Information Visit Number 12/18 Plan of Care Dates 08/19/24 - 11/18/24 Insurance Information [employer] (max of 24 units) Setting Treatment Setting Outpatient Care Visit Type Note Type Treatment Note General Information General Information Mona is a 23 y.o. right hand dominant female referred to outpatient OT secondary to pain in both hands and hand dysfunction. Medical history is significant for depression, seizures, vision impairment, and 2 brain surgeries; she is on an anti-seizure medication. 09/02/22 = Mona reported having her 2nd brain surgery in the year 2018. - Subjective Identification Type Name Identification Reconciled With Medical Record Observations Mona reports that her splint was a custom-orthotic given to her by [facility]; the splint is currently packed away in a box; she reports wearing it at night. She reports getting up around 1:00 p.m. She reports that her new seizure medication that she was put on since onset of x 3 seizures in July makes her tired. She reported difficulty opening up her hand. Pt reports that her HEP is hard to do. She reports that friends that come over and her roommate help her with her HEP. Chief Complaint(s) Loss of Motion/Stiffness - Objective Objective Measurements Please refer to below for progress towards meeting established OT goals. 08/19/23 = Able to pick-up and transfer small buttons (~ 1/4- inch in size), medium/large washers, wood pegs (~3-inches in size), golf tees, pennies/ nickel, and medium-sized paper clips from TT -> container w/ left hand without sliding to edge of table w/ increased time. Also placed x 3 wood pegs in pegboard w/ 9-HPT not timed w/ increased time w/ L hand. Short Term Goals 1. Pt will increase R UE strength by 1/4 muscle grade to improve functional daily use. 2. Pt will increase L shoulder flex to 60 deg or better for improved under arm hygiene. 3. Pt will grasp/release small objects with L hand in 3 out of 10 trials with min A. 4. Pt will be I with SROM initial HEP. Correction Goals 1. Pt will increase R UE strength by 1/2 muscle grade to improve functional daily use. 2. Pt will identify one functional task she would like to engage in at home. 3. Pt will grasp/release small objects with L hand 6 out of 10 trials with set up. 4. Pt will be I with upgraded HEP. - Treatment 9 Descriptor Weight bearing with palm on small nerf ball, pushing into palm x 46 minutes with min-mod A to maintain positioning and ensure pt is pushing into hand. OT provides tactile cues for weight shifting as tolerated 8 Descriptor Education: OT re-educated pt on tone management, skin protection, and the benefit of wearing a splint on her L hand. OT encourages pt to try to find her existing splint to see if it will be appropriate for her. OT re-educated pt on her HEP SROM/AAROM exercises. OT sent a note home with pt asking about the splint. Exercises 9 Descriptor AAROM/GMC: 5 palacios bags are placed in semi [place] around pt with table at chest height. Pt reaches and pushes each target towards the edge of the table. Pt able to accurately reach targets and push in straight path. Pt performs 5x3. Pt requires vc to reach as far as she is able 8 Descriptor SROM:x10 each shoulder flexion shoulder horizontal abd/add shoulder IR/ER (some AAROM) elbow flex/ext pronation and supination (more AAROM) wrist flex and ext (more AAROM ) Side Both Physical Assistance Min Assistance Verbal Cues Mod Cues Manual Therapy Manual Therapy manual stretch and extended hold to L digits and palm to open for preparation for weight bearing. Pt requires total A to open L digits and place on ball. OT able to get digits open enough to be placed around small nerf ball for WB activity. - Assessment Patient Response to Treatment Fair Rehabilitation Potential Good Impairments Identified ADLs,Balance,Body Mechanics, Cognition,Contractures, Coordination/Dexterity, Flexibility,Functional Activities,Memory,Motor Function,Weakness,Posture, Range of Motion,Meaningful Activities,Spasticity,Motor Planning,Eye-Hand Coordination Progress Towards Goals Slow Progress Assessment of Improvement Pt is pleasant and cooperative . Mod I w/ transfers and ambulation; (-) wearing of L AFO observed on this date. She did not bring her splint to treatment; she reports splint is in a box somewhere and that she received it from [facility] when she aged out. Showed images provided by VARUN Tam, for self-ROM HEP; she indicated that she couldn 't remember some of them. She demonstrated limited <45 degrees AROM w/ sh flex w/ self-ROM. Fist/flexion of digits of the L hand throughout session; she was able to use lateral abrams pinch grasp to transfer palacios bags w/ the L hand w/ up to 90 degrees sh abd. No meaningful functional goal identified in today's therapy. OT continues to encourage pt to consider a specific goal that would be meaningful to her. Cont per established POC. Reviewed with Patient/Caregiver Home Exercise Program Patient/Caregiver Understanding Fair - Plan Therapy Recommendations Continue with Current Program Modalities As Needed Types of Modalities E-Stim Suggested Referrals Physical Therapy
--- NOTE | 2024-09-30 15:34 | OT.OP.TRT ---
Visit Care Team Role Provider Type Cirilo Bryan MD Attending Provider Physician Family Provider Primary Care Provider Referring Provider Specialty: Family Practice Address: [address] [place] [address], [facility] Email: [email or web address] Occupational Therapy Treatment Note OT Outpatient Treatment Note - Adult Start: 08/19/24 11:31 Freq: Status: Active Protocol: Document 09/30/24 15:24 AMS (Rec: 09/30/24 15:34 AMS [id number]) OT Outpatient Adult Treatment Note Session Time Visit Start Time 14:25 Visit Stop Time 15:05 Visit Information Visit Number 01/17 Plan of Care Dates 08/19/24 - 11/18/24 Insurance Information [employer] (max of 24 units) Setting Treatment Setting Outpatient Care Visit Type Note Type Treatment Note General Information General Information Mona is a 23 y.o. right hand dominant female referred to outpatient OT secondary to pain in both hands and hand dysfunction. Medical history is significant for depression, seizures, vision impairment, and 2 brain surgeries; she is on an anti-seizure medication. 09/02/22 = Mona reported having her 2nd brain surgery in the year 2018. - Subjective Identification Type Name Identification Reconciled With Medical Record Observations Mona reports that her splint was a custom-orthotic [facility]; the splint is currently packed away in a box; she reports wearing it at night. She reports getting up early because her grandfather had an appointment. She reports that her new seizure medication that she was put on since onset of x 3 seizures in July makes her tired. She cont to report difficulty opening up her hand. Mona reports that 'sometimes she has someone to do her HEP with her'. Chief Complaint(s) Loss of Motion/Stiffness - Objective Objective Measurements Please refer to below for progress towards meeting established OT goals. 08/19/23 = Able to pick-up and transfer small buttons (~ 1/4- inch in size), medium/large washers, wood pegs (~3-inches in size), golf tees, pennies/ nickel, and medium-sized paper clips from TT -> container w/ left hand without sliding to edge of table w/ increased time. Also placed x 3 wood pegs in pegboard w/ 9-HPT not timed w/ increased time w/ L hand. Short Term Goals 1. Pt will increase R UE strength by 1/4 muscle grade to improve functional daily use. 2. Pt will increase L shoulder flex to 60 deg or better for improved under arm hygiene. 3. Pt will grasp/release small objects with L hand in 3 out of 10 trials with min A. 4. Pt will be I with SROM initial HEP. Political Worker Goals 1. Pt will increase R UE strength by 1/2 muscle grade to improve functional daily use. 2. Pt will identify one functional task she would like to engage in at home. 3. Pt will grasp/release small objects with L hand 6 out of 10 trials with set up. 4. Pt will be I with upgraded HEP. - Treatment 9 Descriptor Weight bearing with palm on small nerf ball, pushing into palm x 46 minutes with min-mod A to maintain positioning and ensure pt is pushing into hand. OT provides tactile cues for weight shifting as tolerated 8 Descriptor Education: OT re-educated pt on tone management, skin protection, and the benefit of wearing a splint on her L hand. OT encourages pt to try to find her existing splint to see if it will be appropriate for her. OT re-educated pt on her HEP SROM/AAROM exercises. OT sent a note home with pt asking about the splint. Exercises 9 Descriptor AAROM/GMC: 10 palacios bags x 3 different movement patterns (L ->R diagonal; L -> infront of body for functional reach; L -> infront of body for functional reach w/ rxn eye-hand coordination component). 8 Descriptor SROM:x10 each shoulder flexion shoulder horizontal abd/add elbow flex/ext pronation and supination (more AAROM) wrist flex and ext (more AAROM ) N/A 09/30/24 shoulder IR/ER (some AAROM) Side Both Physical Assistance Min Assistance Verbal Cues Mod Cues Manual Therapy Manual Therapy manual stretch and extended hold to L digits and palm to open for preparation for weight bearing. Pt requires total A to open L digits and place on ball. OT able to get digits open enough to be placed around small nerf ball for WB activity. - Assessment Progress Towards Goals Slow Progress Assessment of Improvement Mona reported having to get up early for her grandfather's medical appointment; she reports that she went to her neurology appt w/ her dad, aunt, and 2 other family members; she reports that there is another meeting tomorrow in which there will be a lot of people. She did not bring her splint to treatment. She was notified of change to next week's schedule; front clerk to call family (dad) given that Mona says he knows her schedule. Cont fist/flexion of digits of the L hand throughout session ; she was able to use lateral abrams pinch grasp to transfer palacios bags w/ the L hand. No meaningful functional goal identified in today's therapy. OT continues to encourage pt to consider a specific goal that would be meaningful to her. Cont per established POC. Reviewed with Patient/Caregiver Home Exercise Program Patient/Caregiver Understanding Fair - Plan Therapy Recommendations Continue with Current Program Modalities As Needed Types of Modalities E-Stim Suggested Referrals Physical Therapy
--- NOTE | 2024-10-09 15:26 | OT.OP.TRT ---
Visit Care Team Role Provider Type Cirilo Bryan MD Attending Provider Physician Family Provider Primary Care Provider Referring Provider Specialty: Family Practice Address: [address] [place] [address], [facility] Email: [email or web address] Occupational Therapy Treatment Note OT Outpatient Treatment Note - Adult Start: 08/19/24 11:31 Freq: Status: Active Protocol: Document 10/09/24 15:21 AMS (Rec: 10/09/24 15:26 AMS [id number]) OT Outpatient Adult Treatment Note Session Time Visit Start Time 14:45 Visit Stop Time 15:15 Visit Information Visit Number 02/17 Plan of Care Dates 08/19/24 - 11/18/24 Insurance Information [employer] (max of 24 units) Setting Treatment Setting Outpatient Care Visit Type Note Type Treatment Note General Information General Information Mona is a 23 y.o. right hand dominant female referred to outpatient OT secondary to pain in both hands and hand dysfunction. Medical history is significant for depression, seizures, vision impairment, and 2 brain surgeries; she is on an anti-seizure medication. 09/02/22 = Mona reported having her 2nd brain surgery in the year 2019. - Subjective Identification Type Name Identification Reconciled With Medical Record Observations Mona reports that her splint was a custom-orthotic given to her by [facility]; the splint is currently packed away in a box; she reports wearing it at night. She reports that her new seizure medication that she was put on since onset of x 3 seizures in July makes her tired. She cont to report difficulty opening up her hand. She was agreeable to HEP. Mona reports that 'sometimes she has someone to do her HEP with her'. Chief Complaint(s) Loss of Motion/Stiffness - Objective Objective Measurements Please refer to below for progress towards meeting established OT goals. 08/19/23 = Able to pick-up and transfer small buttons (~ 1/4- inch in size), medium/large washers, wood pegs (~3-inches in size), golf tees, pennies/ nickel, and medium-sized paper clips from TT -> container w/ left hand without sliding to edge of table w/ increased time. Also placed x 3 wood pegs in pegboard w/ 9-HPT not timed w/ increased time w/ L hand. Short Term Goals 1. Pt will increase R UE strength by 1/4 muscle grade to improve functional daily use. 2. Pt will increase L shoulder flex to 60 deg or better for improved under arm hygiene. 3. Pt will grasp/release small objects with L hand in 3 out of 10 trials with min A. 4. Pt will be I with SROM initial HEP. Overnight Cashier Goals 1. Pt will increase R UE strength by 1/2 muscle grade to improve functional daily use. 2. Pt will identify one functional task she would like to engage in at home. 3. Pt will grasp/release small objects with L hand 6 out of 10 trials with set up. 4. Pt will be I with upgraded HEP. - Treatment 9 Descriptor N/A 10/09/24 Weight bearing with palm on small nerf ball, pushing into palm x 46 minutes with min-mod A to maintain positioning and ensure pt is pushing into hand. OT provides tactile cues for weight shifting as tolerated 8 Descriptor Education: OT re-educated pt on tone management, skin protection, and the benefit of wearing a splint on her L hand. OT encourages pt to try to find her existing splint to see if it will be appropriate for her. OT re-educated pt on her HEP SROM/AAROM exercises. OT sent a note home with pt asking about the splint. Exercises 9 Descriptor AAROM/GMC: 10 palacios bags x 3 different movement patterns (L ->R diagonal; L -> infront of body for functional reach; L -> infront of body for functional reach w/ rxn eye-hand coordination component). 8 Descriptor SROM:x10 each shoulder flexion shoulder horizontal abd/add elbow flex/ext pronation and supination (more AAROM) wrist flex and ext (more AAROM ) N/A 09/30/24 shoulder IR/ER (some AAROM) Side Both Physical Assistance Min Assistance Verbal Cues Mod Cues Manual Therapy Manual Therapy manual stretch and extended hold to L digits and palm to open for preparation for weight bearing. Pt requires total A to open L digits and place on ball. OT able to get digits open enough to be placed around small nerf ball for WB activity. - Assessment Progress Towards Goals Slow Progress Assessment of Improvement Mona did not bring her splint to treatment. Cont fist /flexion of digits of the L hand throughout session; she was able to use lateral abrams pinch grasp to transfer palacios bags w/ the L hand. No meaningful functional goal identified in today's therapy. OT continues to encourage pt to consider a specific goal that would be meaningful to her. Reviewed HEP w/ pictures based on feedback; active L wrist flex/ext was encouraged vs passive ROM. Reviewed with Patient/Caregiver Home Exercise Program Patient/Caregiver Understanding Fair - Plan Therapy Recommendations Continue with Current Program Modalities As Needed Types of Modalities E-Stim Suggested Referrals Physical Therapy
--- NOTE | 2024-10-13 17:00 | OT.OP.TRT ---
Visit Care Team Role Provider Type Cirilo Bryan MD Attending Provider Physician Family Provider Primary Care Provider Referring Provider Specialty: Family Practice Address: [address] [place] [address], [facility] Email: [email or web address] Occupational Therapy Treatment Note OT Outpatient Treatment Note - Adult Start: 08/19/24 11:31 Freq: Status: Active Protocol: Document 10/13/24 16:57 [facility] (Rec: 10/13/24 17:00 [facility] [id number]) OT Outpatient Adult Treatment Note Session Time Visit Start Time 13:15 Visit Stop Time 15:15 Visit Information Visit Number 03/20 Plan of Care Dates 08/19/24 - 11/18/24 Insurance Information [employer] (max of 24 units) Setting Treatment Setting Outpatient Care Visit Type Note Type Treatment Note General Information General Information Mona is a 23 y.o. right hand dominant female referred to outpatient OT secondary to pain in both hands and hand dysfunction. Medical history is significant for depression, seizures, vision impairment, and 2 brain surgeries; she is on an anti-seizure medication. 09/02/22 = Mona reported having her 2nd brain surgery in the year 2018. - Subjective Identification Type Name Identification Reconciled With Medical Record Observations Mona reports that her splint was a custom-orthotic given to her by [facility]; the splint is currently packed away in a box; she reports wearing it at night. She reports that her new seizure medication that she was put on since onset of x 3 seizures in July makes her tired. She cont to report difficulty opening up her hand. Mona reports that 'sometimes she has someone to do her HEP with her'. Chief Complaint(s) Loss of Motion/Stiffness - Objective Objective Measurements Please refer to below for progress towards meeting established OT goals. 08/19/23 = Able to pick-up and transfer small buttons (~ 1/4- inch in size), medium/large washers, wood pegs (~3-inches in size), golf tees, pennies/ nickel, and medium-sized paper clips from TT -> container w/ left hand without sliding to edge of table w/ increased time. Also placed x 3 wood pegs in pegboard w/ 9-HPT not timed w/ increased time w/ L hand. Short Term Goals 1. Pt will increase R UE strength by 1/4 muscle grade to improve functional daily use. 2. Pt will increase L shoulder flex to 60 deg or better for improved under arm hygiene. 3. Pt will grasp/release small objects with L hand in 3 out of 10 trials with min A. 4. Pt will be I with SROM initial HEP. Custom Bookbinder Goals 1. Pt will increase R UE strength by 1/2 muscle grade to improve functional daily use. 2. Pt will identify one functional task she would like to engage in at home. 3. Pt will grasp/release small objects with L hand 6 out of 10 trials with set up. 4. Pt will be I with upgraded HEP. - Treatment 9 Descriptor N/A 10/09/24 Weight bearing with palm on small nerf ball, pushing into palm x 46 minutes with min-mod A to maintain positioning and ensure pt is pushing into hand. OT provides tactile cues for weight shifting as tolerated 8 Descriptor Education: OT re-educated pt on tone management, skin protection, and the benefit of wearing a splint on her L hand. OT encourages pt to try to find her existing splint to see if it will be appropriate for her. OT re-educated pt on her HEP SROM/AAROM exercises. OT sent a note home with pt asking about the splint. Exercises 9 Descriptor AAROM/GMC: 10 palacios bags x 3 different movement patterns (L ->R diagonal; L -> infront of body for functional reach; L -> infront of body for functional reach w/ rxn eye-hand coordination component). 8 Descriptor SROM:x10 each shoulder flexion shoulder horizontal abd/add elbow flex/ext pronation and supination (more AAROM) wrist flex and ext (more AAROM ) N/A 09/30/24 shoulder IR/ER (some AAROM) Side Both Physical Assistance Min Assistance Verbal Cues Mod Cues Manual Therapy Manual Therapy manual stretch and extended hold to L digits and palm to open for preparation for weight bearing. Pt requires total A to open L digits and place on ball. OT able to get digits open enough to be placed around small nerf ball for WB activity. - Assessment Progress Towards Goals Slow Progress Assessment of Improvement Mona did not bring her splint to treatment. Cont fist /flexion of digits of the L hand throughout session; she denied ability to functionally incorporate the L hand into daily tasks. Thus, no meaningful functional goal identified in today's therapy. OT continues to encourage pt to consider a specific goal that would be meaningful to her. Reviewed HEP w/ pictures based on feedback; active L wrist flex/ext, active L forearm supination/pronation, and active L sh abduction ( with obj manipulation/eye-hand coordination) was encouraged vs passive ROM. Reviewed with Patient/Caregiver Home Exercise Program Patient/Caregiver Understanding Fair - Plan Therapy Recommendations Continue with Current Program Modalities As Needed Types of Modalities E-Stim Suggested Referrals Physical Therapy
--- NOTE | 2024-10-23 15:33 | OT.OP.TRT ---
Visit Care Team Role Provider Type Cirilo Bryan MD Attending Provider Physician Family Provider Primary Care Provider Referring Provider Specialty: Family Practice Address: [address] [place] [address], [facility] Email: [email or web address] Occupational Therapy Treatment Note OT Outpatient Treatment Note - Adult Start: 08/19/24 11:31 Freq: Status: Active Protocol: Document 10/23/24 15:26 AMS (Rec: 10/23/24 15:32 AMS [id number]) OT Outpatient Adult Treatment Note Session Time Visit Start Time 14:45 Visit Stop Time 15:15 Visit Information Visit Number 04/19 Plan of Care Dates 08/19/24 - 11/18/24 Insurance Information [employer] (max of 24 units) Setting Treatment Setting Outpatient Care Visit Type Note Type Treatment Note General Information General Information Mona is a 23 y.o. right hand dominant female referred to outpatient OT secondary to pain in both hands and hand dysfunction. Medical history is significant for depression, seizures, vision impairment, and 2 brain surgeries; she is on an anti-seizure medication. 09/02/22 = Mona reported having her 2nd brain surgery in the year 2018. - Subjective Identification Type Name Identification Reconciled With Medical Record Observations Mona reports that her splint was a custom-orthotic given to her by [facility]; the splint is currently packed away in a box; she reports wearing it at night. She reports that her new seizure medication that she was put on since onset of x 3 seizures in July makes her tired. She cont to report difficulty opening up her hand. She reported waking up right before her treatment session; she did not have time to have 'lunch'. She cont to report preference for staying up late at night. Mona reports that 'sometimes she has someone to do her HEP with her'. Chief Complaint(s) Loss of Motion/Stiffness - Objective Objective Measurements Please refer to below for progress towards meeting established OT goals. 08/19/23 = Able to pick-up and transfer small buttons (~ 1/4- inch in size), medium/large washers, wood pegs (~3-inches in size), golf tees, pennies/ nickel, and medium-sized paper clips from TT -> container w/ left hand without sliding to edge of table w/ increased time. Also placed x 3 wood pegs in pegboard w/ 9-HPT not timed w/ increased time w/ L hand. Short Term Goals 1. Pt will increase R UE strength by 1/4 muscle grade to improve functional daily use. 2. Pt will increase L shoulder flex to 60 deg or better for improved under arm hygiene. 3. Pt will grasp/release small objects with L hand in 3 out of 10 trials with min A. 4. Pt will be I with SROM initial HEP. Snf Goals 1. Pt will increase R UE strength by 1/2 muscle grade to improve functional daily use. 2. Pt will identify one functional task she would like to engage in at home. 3. Pt will grasp/release small objects with L hand 6 out of 10 trials with set up. 4. Pt will be I with upgraded HEP. - Treatment 9 Descriptor N/A 10/09/24 Weight bearing with palm on small nerf ball, pushing into palm x 46 minutes with min-mod A to maintain positioning and ensure pt is pushing into hand. OT provides tactile cues for weight shifting as tolerated 8 Descriptor Education: OT re-educated pt on tone management, skin protection, and the benefit of wearing a splint on her L hand. OT encourages pt to try to find her existing splint to see if it will be appropriate for her. OT re-educated pt on her HEP SROM/AAROM exercises. h/o OT sent a note home with pt asking about the splint. Exercises 9 Descriptor AAROM/GMC: 10 palacios bags x 3 different movement patterns (L ->R diagonal; L -> infront of body for functional reach; L -> infront of body for functional reach w/ rxn eye-hand coordination component). 8 Descriptor SROM:x10 each shoulder flexion elbow flex/ext ER -> sh flex AROM pronation and supination AROM wrist flex and ext AROM sh flex AROM sh abd N/A 09/30/24 shoulder IR/ER (some AAROM) Manual Therapy Manual Therapy manual stretch and extended hold to L digits and palm to open for preparation for weight bearing. Pt requires total A to open L digits and place on ball. OT able to get digits open enough to be placed around small nerf ball for WB activity. - Assessment Progress Towards Goals Slow Progress Assessment of Improvement Mona did not bring her splint to treatment. Cont fist /flexion of digits of the L hand throughout session; she denied ability to functionally incorporate the L hand into daily tasks; use of L lateral abrams pinch for transferring of slid palacios bags; use of fist to hit balloon or hit ball back to clinician; activities were completed in sitting at TT. Mona did not identify meaningful functional goal. Cont to review previously provided HEP by Anel w/ pictures based on feedback w/ active L wrist flex/ext, active L forearm supination/ pronation, and active L sh abduction (with obj manipulation/eye-hand coordination), and active sh flexion. Did add sh ER stretch w/ hands positioned on back of head -> with subsequent elbow ext into sh flex. Hold for 20 sec x 1 rep. Completed in sitting. May benefit from doing exercise in supine however. Reviewed with Patient/Caregiver Home Exercise Program Patient/Caregiver Understanding Fair - Plan Therapy Recommendations Continue with Current Program Modalities As Needed Types of Modalities E-Stim Suggested Referrals Physical Therapy
--- NOTE | 2024-10-30 14:32 | OT.OP.TRT ---
Visit Care Team Role Provider Type Cirilo Bryan MD Attending Provider Physician Family Provider Primary Care Provider Referring Provider Specialty: Family Practice Address: [address] [place] [address], [facility] Email: [email or web address] Occupational Therapy Treatment Note OT Outpatient Treatment Note - Adult Start: 08/19/24 11:31 Freq: Status: Active Protocol: Document 10/30/24 14:20 AMS (Rec: 10/30/24 14:32 AMS [id number]) OT Outpatient Adult Treatment Note Session Time Visit Start Time 14:45 Visit Stop Time 15:15 Visit Information Visit Number 05/20 Plan of Care Dates 08/19/24 - 11/18/24 Insurance Information [employer] (max of 24 units) Setting Treatment Setting Outpatient Care Visit Type Note Type Treatment Note General Information General Information Mona is a 23 y.o. right hand dominant female referred to outpatient OT secondary to pain in both hands and hand dysfunction. Medical history is significant for depression, seizures, vision impairment, and 2 brain surgeries; she is on an anti-seizure medication. 09/02/22 = Mona reported having her 2nd brain surgery in the year 2018. - Subjective Identification Type Name Identification Reconciled With Medical Record Observations Mona reports that her splint was a custom-orthotic given to her by [facility]; the splint is currently packed away in a box; she reports wearing it at night. She reports that her new seizure medication that she was put on since onset of x 3 seizures in July makes her tired. She cont to report difficulty opening up her hand. Mona reports that 'sometimes she has someone to do her HEP with her'. Chief Complaint(s) Loss of Motion/Stiffness - Objective Objective Measurements Please refer to below for progress towards meeting established OT goals. 08/19/23 = Able to pick-up and transfer small buttons (~ 1/4- inch in size), medium/large washers, wood pegs (~3-inches in size), golf tees, pennies/ nickel, and medium-sized paper clips from TT -> container w/ left hand without sliding to edge of table w/ increased time. Also placed x 3 wood pegs in pegboard w/ 9-HPT not timed w/ increased time w/ L hand. Short Term Goals 1. Pt will increase R UE strength by 1/4 muscle grade to improve functional daily use. 2. Pt will increase L shoulder flex to 60 deg or better for improved under arm hygiene. 3. Pt will grasp/release small objects with L hand in 3 out of 10 trials with min A. 4. Pt will be I with SROM initial HEP. Mcc Goals 1. Pt will increase R UE strength by 1/2 muscle grade to improve functional daily use. 2. Pt will identify one functional task she would like to engage in at home. 3. Pt will grasp/release small objects with L hand 6 out of 10 trials with set up. 4. Pt will be I with upgraded HEP. - Treatment 9 Descriptor N/A 10/09/24 Weight bearing with palm on small nerf ball, pushing into palm x 46 minutes with min-mod A to maintain positioning and ensure pt is pushing into hand. OT provides tactile cues for weight shifting as tolerated 8 Descriptor Education: OT re-educated pt on tone management, skin protection, and the benefit of wearing a splint on her L hand. OT encourages pt to try to find her existing splint to see if it will be appropriate for her. OT re-educated pt on her HEP SROM/AAROM exercises. h/o OT sent a note home with pt asking about the splint. 7 Descriptor Thumb abduction. Thumb isolation. Hand positioned in a fist. Slid flat obj/token across TT. Exercises 9 Descriptor Active ROM Palacios bags. Underhand toss. Sitting. Lateral abrams pinch used. Palacios bag stop. Slid palacios bag & trapping w/ L fist. Lateral abrams pinch transfer to container in frontal plane to replicate functional reach. 8 Descriptor SROM:x10 each shoulder flexion elbow flex/ext ER -> sh flex AROM pronation and supination AROM wrist flex and ext AROM sh flex AROM sh abd N/A 09/30/24 shoulder IR/ER (some AAROM) 7 Descriptor N/A 10/30/24 DB twist. Positioning of hand on top of DB. 4# DB. 1 x 10. Both directions. 6 Descriptor N/A 10/30/24 Wrist UD/RD. Palm flat on TT. 1x10. 5 Descriptor N/A 10/30/24 Extension of digits. 2x10. 2 rubberbands. 4.4# spherical ball overhand toss L hand. 1x10. 4 Descriptor N/A 10/30/24 Red flex bar. 'U'. 1 x 10. Reverse. 1 x 10. Twist. 1 x 10. 3 Descriptor N/A 10/30/24 Orientation to midline. Weight bearing. Proprioceptive input . Peanutball walk-outs. x 12 repetitions. N/A Sea stars. Yellow peanutball. x 10 repetitions prone. Manual Therapy Manual Therapy manual stretch and extended hold to L digits and palm to open for preparation for weight bearing. Pt requires total A to open L digits and place on ball. OT able to get digits open enough to be placed around small nerf ball for WB activity. - Assessment Progress Towards Goals Slow Progress Assessment of Improvement Mona did not bring her splint to treatment. Cont fist /flexion of digits of the L hand throughout session; she denied ability to functionally incorporate the L hand into daily tasks; use of L lateral abrams pinch for transferring of slid palacios bags and slid tokens for thumb isolation/thumb abduction/eye-hand coordinatoin; use of fist to hit balloon or hit ball back to clinician; activities were completed in sitting at TT. Mona verbalized preference for sitting. Mona did not identify meaningful functional goal in today's session. Cont to review previously provided HEP by Anel w/ roby based on feedback w/ active L wrist flex/ext, active L forearm supination/pronation, and active L sh abduction ( with obj manipulation/eye-hand coordination), and active sh flexion. Reviewed with Patient/Caregiver Home Exercise Program Patient/Caregiver Understanding Fair - Plan Therapy Recommendations Continue with Current Program Modalities As Needed Types of Modalities E-Stim Suggested Referrals Physical Therapy
--- NOTE | 2024-11-09 15:28 | OT.OP.TRT ---
Visit Care Team Role Provider Type Cirilo Bryan MD Attending Provider Physician Family Provider Primary Care Provider Referring Provider Specialty: Family Practice Address: [address] [place] [address], [facility] Email: [email or web address] Occupational Therapy Treatment Note OT Outpatient Treatment Note - Adult Start: 08/19/24 11:31 Freq: Status: Active Protocol: Document 11/09/24 15:22 AMS (Rec: 11/09/24 15:28 AMS [id number]) OT Outpatient Adult Treatment Note Session Time Visit Start Time 14:45 Visit Stop Time 15:15 Visit Information Visit Number 05/20 Plan of Care Dates 08/19/24 - 11/18/24 Insurance Information [employer] (max of 24 units) Setting Treatment Setting Outpatient Care Visit Type Note Type Treatment Note General Information General Information Mona is a 23 y.o. right hand dominant female referred to outpatient OT secondary to pain in both hands and hand dysfunction. Medical history is significant for depression, seizures, vision impairment, and 2 brain surgeries; she is on an anti-seizure medication. 09/02/22 = Mona reported having her 2nd brain surgery in the year 2019. - Subjective Identification Type Name Identification Reconciled With Medical Record Observations Will be going to Aunt's house in celebration of birthday and Mother's day. Reports having birthday recently. Splint was custom-orthotic given to her by [facility]; the splint is currently packed away in a box; she reports wearing it at night. She reports her new seizure medication that she was put on since onset of x 3 seizures in July makes her tired. She cont to report difficulty opening up her hand. Chief Complaint(s) Loss of Motion/Stiffness - Objective Objective Measurements Please refer to below for progress towards meeting established OT goals. 08/19/23 = Able to pick-up and transfer small buttons (~ 1/4- inch in size), medium/large washers, wood pegs (~3-inches in size), golf tees, pennies/ nickel, and medium-sized paper clips from TT -> container w/ left hand without sliding to edge of table w/ increased time. Also placed x 3 wood pegs in pegboard w/ 9-HPT not timed w/ increased time w/ L hand. Short Term Goals 1. Pt will increase R UE strength by 1/4 muscle grade to improve functional daily use. 2. Pt will increase L shoulder flex to 60 deg or better for improved under arm hygiene. 3. Pt will grasp/release small objects with L hand in 3 out of 10 trials with min A. 4. Pt will be I with SROM initial HEP. Correction Goals 1. Pt will increase R UE strength by 1/2 muscle grade to improve functional daily use. 2. Pt will identify one functional task she would like to engage in at home. 3. Pt will grasp/release small objects with L hand 6 out of 10 trials with set up. 4. Pt will be I with upgraded HEP. - Treatment 9 Descriptor N/A 10/09/24 Weight bearing with palm on small nerf ball, pushing into palm x 46 minutes with min-mod A to maintain positioning and ensure pt is pushing into hand. OT provides tactile cues for weight shifting as tolerated 8 Descriptor Education: OT re-educated pt on tone management, skin protection, and the benefit of wearing a splint on her L hand. OT encourages pt to try to find her existing splint to see if it will be appropriate for her. OT re-educated pt on her HEP SROM/AAROM exercises. h/o OT sent a note home with pt asking about the splint. 7 Descriptor Thumb abduction. Thumb isolation. Hand positioned in a fist. Slid flat obj/token across TT. Exercises 9 Descriptor Active ROM Palacios bags. Underhand toss. Sitting. Lateral abrams pinch used. Palacios bag stop. Slid palacios bag & trapping w/ L fist. Lateral abrams pinch transfer to container in frontal plane to replicate functional reach. 8 Descriptor SROM:x10 each shoulder flexion elbow flex/ext ER -> sh flex AROM pronation and supination AROM wrist flex and ext AROM sh flex AROM sh abd N/A 09/30/24 shoulder IR/ER (some AAROM) 7 Descriptor N/A 10/30/24 DB twist. Positioning of hand on top of DB. 4# DB. 1 x 10. Both directions. 6 Descriptor N/A 10/30/24 Wrist UD/RD. Palm flat on TT. 1x10. 5 Descriptor N/A 4/25/25 Extension of digits. 2x10. 2 rubberbands. 4.4# spherical ball overhand toss L hand. 1x10. 4 Descriptor N/A 10/30/24 Red flex bar. 'U'. 1 x 10. Reverse. 1 x 10. Twist. 1 x 10. 3 Descriptor N/A 10/30/24 Orientation to midline. Weight bearing. Proprioceptive input . Peanutball walk-outs. x 12 repetitions. N/A Sea stars. Yellow peanutball. x 10 repetitions prone. Manual Therapy Manual Therapy manual stretch and extended hold to L digits and palm to open for preparation for weight bearing. Pt requires total A to open L digits and place on ball. OT able to get digits open enough to be placed around small nerf ball for WB activity. - Assessment Progress Towards Goals Slow Progress Assessment of Improvement Cont fist/flexion of digits of the L hand throughout session ; she denied ability to functionally incorporate the L hand into daily tasks and/or extend fingers into an opened postion; use of L lateral abrams pinch for object manipulation (e.g., palacios bags) and use of fist w/ balloon and ball; activities were completed in sitting at TT based on preferece. Cont to review previously provided HEP by Anel w/ pictures based on feedback w/ active L wrist flex/ext, active L forearm supination/pronation, and active L sh abduction (with obj manipulation/eye-hand coordination), and active sh flexion. Has PT appointment w/ Lilibeth. - Plan Therapy Recommendations Continue with Current Program Modalities As Needed Suggested Referrals Physical Therapy
--- NOTE | 2024-12-10 12:31 | OT.OP.DC ---
Visit Care Team Role Provider Type Cirilo Bryan MD Attending Provider Physician Family Provider Primary Care Provider Referring Provider Address: [address] [place] [address], [facility] Email: [email or web address] OT Outpatient OT Outpatient Adult Evaluation Start: 08/19/24 11:31 Freq: Status: Active Protocol: Document 08/19/24 11:31 [facility] (Rec: 08/19/24 13:25 [facility] [id number]) General Information - Adult Visit Information Visit Number 1 Plan of Care Dates 08/19/24 - 11/18/24 Insurance [employer] (eval only, then max of 24 units) Information Session Time Visit Start Date 08/19/24 Visit Start Time 11:30 Visit Stop Time 12:17 Setting Treatment Setting Outpatient Care Visit Type Note Type Initial Evaluation Referral Referring Physician Cirilo Bryan Reason for Referral epilepsy, weakness Identification Identification Yes Confirmed Identification name, MR, parent Confirmed By Patient Questionnaires Quick Dash- Upper Extremity Quick Dash UE Score 54.5 Quick Dash UE 40 to 59% Impaired (Score 40-59) Impairment Goals Objective Measurements Objective AROM: R UE WFL, L UE ~30 deg of shoulder flex, L thumb Measurements radial abd WFL during grasp release task AAROM L UE WFL for all planes of movement MMT: R: shldr flex 4-, shldr ext 3+, abd 4, add 5; R elbow: flex 4-, ext 4 Communications Director: R 65, 65, 47 (avg 59#); L 5, 5, 11 (7#) Pinch: lateral R 18#, L 6#; pincer R 10#, L 8#; 3 jaw R 10#, L 2# (For all entry level business analyst and pinch measurements, OT has to open and place pt's hand in position to initiate measurement ) Short Term Goals Short Term Goals 1. Pt will increase R UE strength by 1/4 muscle grade to improve functional daily use. 2. Pt will increase L shoulder flex to 60 deg or better for improved under arm hygiene. 3. Pt will grasp/release small objects with L hand in 3 out of 10 trials with min A. 4. Pt will be I with SROM initial HEP. [employer]inery [employer] Goals Refinery [employer] Goals 1. Pt will increase R US strength by 1/2 muscle grade to improve functional daily use. 2. Pt will identify one functional task she would like to engage in at home. 3. Pt will grasp/release small objects with L hand 6 out of 10 trials with set up. 4. Pt will be I with upgraded HEP. Assessment/Plan Assessment Patient Response Fair Rehabilitation Good Potential Impairments ADLs,Balance,Body Mechanics,Cognition,Coordination/ Identified Dexterity,Flexibility,Functional Activities,Memory, Motor Function,Weakness,Posture,Range of Motion, Meaningful Activities,Spasticity,Motor Planning,Eye- Hand Coordination Treatment Assessment Patient is a 23 yo F referred for skilled OT services due to weakness and epilepsy. Pt is right hand dominant with a medical history significant for depression, seizures, vision impairment, selective mutism, and 2 brain surgeries; she is on a anti-seizure medication. Pt reports that she had 3 seizures in the same day about 1 month ago. Pt resides in [place], [place] w/ her father and their roommate. Pt reports spending most of her time in her own room. Since her recent seizures pt reports being very tired and sleeping a lot. For leisure, pt reports listening to music on her personal cell phone and tablet. She denies currently doing art or crafts. Pt receives help with cleaning her room and meal preparation. Pt reports having assistance for all of her BADLs to include showering (max A), dressing (max-total A) and doing her hair (total A). For bathing, she has a shower chair, 1 grab bar, a handheld shower head, and a long handled sponge. Pt reports that she is able to feed herself once her food has been cut. Pts father reports that she has needed increased assistance with walking to the bathroom. Pt reports that she is able to manage her clothing and toileting hygiene without assistance. Pt reports that she has a SC, QC, FWW, and a gait epic trainer. She frequently furniture walks in her room. Pt has increased fluctuating tone in her L UE with her hand having significant flexor tone. At rest, pt has forward shoulder posture and keeps her L UE internally rotated with elbow extended and hand fisted. She required OT to open her hand. Pt has minimal active ROM of L UE, but is able to perform to WFL with AAROM ( see objective section for specific details). Pt denies any pain at time of eval. Pt states ?I can?t really feel my left side.? OT touched pts dorsal hand and asked pt if she could feel that pt stated ?slightly?. Pt would not follow commands for specific sensation testing. At time of evaluation, patient was unable to identify specific functional goals that she would like to work on. Thus, further discussion is needed in order to establish meaningful goals that are client specific . Pt does state that therapy has helped her ?feel better? in the past. OT discussed educating pt on AE and dressing techniques to improve her functional I, but pt declines these options. Pt reports that she is shy and that it takes her ?a while to warm up? she also mentioned being very comfortable with her previous OT. When asked if she would like to use her L UE more functionally, pt says ?that sounds good?. Skilled OT services are appropriate to address functional use of L UE, to address BADL/IADL tasks if pt is willing, to improve general strengthening B UEs and posture, and to encourage meaningful functional tasks. Reviewed with Goals Patient Patient Fair Understanding Plan Length of treatment 13 (weeks) Plan of Care Start 08/19/24 Date Plan of Care End 11/18/24 Date Treatment Frequency Once a Week Treatment Duration 30 Minutes Therapeutic Contents Active Range of Motion,Adaptive Equipment Education, Cognitive Skills Development,Functional Activities,Home Exercise Program,Manual Therapy,Education, Neuromuscular Re-Education,Self-Care,Splinting, Stretching/Flexibility Activities,Therapeutic Activities,Therapeutic Exercises,Modalities,Sensory Re- education Modalities As Needed Types of Modalities E-Stim Patient Instruction Plan of Care,Questions/Concerns Suggested Referrals Physical Therapy Functional Wrist/Hand Scan Hand Side Sensory Assessment Sensory Profile2 OT Outpatient Treatment Note - Adult Start: 08/19/24 11:31 Freq: Status: Active Protocol: Document 12/10/24 12:29 [facility] (Rec: 12/10/24 12:31 [facility] Desktop) OT Outpatient Adult Treatment Note Visit Information Visit Number 05/20 Plan of Care Dates 08/19/24 - 11/18/24 Insurance [employer] (max of 24 units) Information Setting Treatment Setting Outpatient Care Visit Type Note Type Discharge Summary - Subjective Observations Mona has not been seen in the outpatient setting by OT since 11/09/24 and POC on 11/18/24; thus, recommend d/c from outpatient OT and re-evaluate as deemed appropriate by PCP w/ receipt of new referral. - Objective Objective Please refer to below for progress towards meeting Measurements established OT goals. 08/19/23 = Able to pick-up and transfer small buttons (~ 1/4-inch in size), medium/large washers, wood pegs (~3 -inches in size), golf tees, pennies/nickel, and medium -sized paper clips from TT -> container w/ left hand without sliding to edge of table w/ increased time. Also placed x 3 wood pegs in pegboard w/ 9-HPT not timed w/ increased time w/ L hand. Short Term Goals D/C ALL GOALS 12/10/24 1. Pt will increase R UE strength by 1/4 muscle grade to improve functional daily use. 2. Pt will increase L shoulder flex to 60 deg or better for improved under arm hygiene. 3. Pt will grasp/release small objects with L hand in 3 out of 10 trials with min A. 4. Pt will be I with SROM initial HEP. Intermediate Goals D/C ALL GOALS 12/10/24 1. Pt will increase R UE strength by 1/2 muscle grade to improve functional daily use. 2. Pt will identify one functional task she would like to engage in at home. 3. Pt will grasp/release small objects with L hand 6 out of 10 trials with set up. 4. Pt will be I with upgraded HEP. - - Assessment Assessment of Mona has not been seen in the outpatient setting by [facility] OT since 11/09/24 and POC on 11/18/24; thus, recommend d/c from outpatient OT and re-evaluate as deemed appropriate by PCP w/ receipt of new referral. - Plan Therapy Discharge from Occupational Therapy Recommendations
== END 2024-12-17 14:28 | disposition home or self-care (01) ==
LOC: OT 14:30
PROVIDERS: Family Provider Family Medicine; PCP Family Medicine; Referring Provider Family Medicine; Visit Provider Family Medicine
DX: Z86.69 Personal history of other diseases of the nervous system and sense organs (principal); G40.901 Epilepsy, unspecified, not intractable, with status epilepticus; R53.1 Weakness; R26.89 Other abnormalities of gait and mobility
CPT/HCPCS: 97110; 97167; 97530

== ENCOUNTER 2024-11-16 15:15 | Outpatient (RCR) | payer OTHER, SELFPAY ==
--- NOTE | 2024-08-27 16:18 | PT.OIE ---
Current Diagnoses Epilepsy, unspecified, not intractable, with status epilepticus (08/27/24) Other abnormalities of gait and mobility (08/27/24) Weakness (08/27/24) Personal history of other diseases of the nervous system and sense organs (08/27/24) Past Medical History (Last Updated 08/17/24 @ 09:11 by Emmie Mccabe RN) Acute left flank pain Anxiety and depression Bilateral hand pain Decreased mobility Dysuria Fatigue due to depression FH: breast cancer in first degree relative when <50 years old FHx: BRCA2 gene positive Hand dysfunction History of nephrolithiasis Insomnia disorder with non-sleep disorder mental comorbidity IT band syndrome Mixed incontinence urge and stress Seizure disorder (08/24/14) Seizure disorder Selective mutism as adjustment reaction Viral URI with cough Past Surgical History (Last Reviewed 05/16/24 @ 15:58 by SHAY Casey) H/O brain surgery Visit Care Team Role Provider Type Cirilo Bryan MD Attending Provider Physician Family Provider Primary Care Provider Referring Provider Specialty: [facility] Address: [address] [place] [address], [facility] Email: [email or web address] Physical Therapy Initial Evaluation PT-OP-A Visit Information Start: 08/13/24 16:32 Freq: Status: Active Protocol: Document 08/27/24 14:37 [facility] (Rec: 08/27/24 16:17 [facility] [id number]) Out-Patient Physical Therapy Visit Information Visit Information Visit Type Initial Evaluation Visit Start Time 14:35 Visit Stop Time 15:15 Visit Number 1 Number of [employer] SALESMAN Visits 0 PT-OP-B Current Condition Start: 08/13/24 16:32 Freq: Status: Active Protocol: Document 08/27/24 14:37 [facility] (Rec: 08/27/24 16:17 [facility] [id number]) Current Condition History of Current Condition Current Complaints weakness, falls History of Current Condition Pt had 3 seizures last month in 1 day after a day of walking around the [place]. Neurologist lynn meds. Had a fall in [facility] day after so dad helping her around house more. Fell again more recently but doesn't know what caused it. Doesn't go for walks like she used to d/t friend moving away. Has help with everything right now. It has been more hard for her since the 3 seizures so gets more help. She gets help from dad and roommate. hx of 2 brain sx with prior PT that helps improve mobility at the time. Has been feeling tired Treatment Goals Patient/Caregiver Goals Feel stronger to go for walks. dec falls PT-OP-D Balance Start: 08/13/24 16:32 Freq: Status: Active Protocol: Document 08/27/24 14:37 [facility] (Rec: 08/27/24 16:17 [facility] [id number]) Balance Tests Shea Balance Test Shea Balance Test Score 36/56 PT-OP-E Functional Tests Start: 08/13/24 16:32 Freq: Status: Active Protocol: Document 08/27/24 14:37 [facility] (Rec: 08/27/24 16:17 [facility] [id number]) Functional Tests 6 Minute Walk Test Distance 556ft Device Used no AD 30 Second Sit to Stand Test Score 5x Dynamic Gait Index (DGI) Score 10/24 Five Times Sit to Stand Test Score 27 sec PT-OP-G Mobility & Gait Start: 08/13/24 16:32 Freq: Status: Active Protocol: Document 08/27/24 14:37 [facility] (Rec: 08/27/24 16:17 [facility] [id number]) OP Gait Assessment Comments Gait Comments No AD lat lean w/WB on LLE w/ dec LLE clearance >R, dec LLE stance time, slow PT-OP-T Assessment and Plan Start: 08/13/24 16:32 Freq: Status: Active Protocol: Document 08/27/24 14:37 [facility] (Rec: 08/27/24 16:17 [facility] [id number]) Physical Therapy Assessment Rehab Potential Rehabilitation Potential Good Evaluation Complexity Number of Personal Factors/Comorbidities 3 or More Number of Body Systems Impaired 4 or More Clinical Presentation at Evaluation Unstable Impairments Impairments Activity Tolerance,Balance, Functional Activities, Functional Mobility,Gait, Posture,ROM,Soft Tissue Mobility,Strength,Transfers Other Concerns Barriers to Rehabilitation limited insurance visits, limited carryover w/home activity Goals 6 min walk Impairment 556ft Short Term Goal (STG) Pt will show dec fall risk w/ inc gait speed w/ability to walk 700ft in 6 min STG Duration 09/29 Borematic Operator Goal (LTG) Pt will show dec fall risk w/ inc gait speed w/ability to walk 900ft in 6 min LTG Duration 5/ DGI Impairment 10 Short Term Goal (STG) Pt will have improved DGI to at least 14 to show dec fall risk. STG Duration Borematic Operator Goal (LTG) Pt will have improved DGI to at least 19 to show dec fall risk. LTG Duration 11/05 sit to stand Impairment 5 in 30 sec Short Term Goal (STG) Pt will be able to do 7 sit to stands in 30 sec to show improved strength STG Duration 10/04 [facility] Goal (LTG) Pt will be able to do 10 sit to stands in 30 sec to show improved strength LTG Duration 11/05 SHEA Impairment 36 Borematic Operator Goal (LTG) Pt will improve score to at least 45 to demonstrate safe amb w/o AD and less likely to fall LTG Duration 11/05 Assessment Summary Assessment Pt presents about 1 month after having 3 seizures in a day w/inc in meds since then and inc in fatigue and requiring more assistance since this. She has had 2 falls since then and is requiring more assist at home and dad is helping her walk between rooms. This is significantly impaired compared to when pt has been in for PT in the past. She has significant weakness, slower and more impaired gait and inc risk for falls based on testing today. She would benefit from skilled PT to address deficits. Physical Therapy Plan Frequency and Duration Frequency of Treatment 1x/Week Duration of treatment (weeks) 10 Plan of Care Start Date 08/27/24 Plan of Care End Date 11/05/24 Therapeutic Interventions Therapeutic Interventions Balance Training,Gait Training ,Home Exercise Program,Joint Mobilizations,Manual Therapy, Neuromuscular Re-education, Orthotic/Prosthetic Management ,Patient/Caregiver Education, Self-Care/Home Management,Soft Tissue Mobilization,Taping, Therapeutic Activities, Therapeutic Exercises Modalities Electric Stimulation Next Visit Focus/Plan Next Note Type Treatment Note Next Visit Plan balance exercises, give HEP, hurdles, balance board, balloon volley
--- NOTE | 2024-09-01 16:38 | PT.OTN ---
Current Diagnoses Epilepsy, unspecified, not intractable, with status epilepticus (09/01/24) Other abnormalities of gait and mobility (09/01/24) Weakness (09/01/24) Personal history of other diseases of the nervous system and sense organs (09/01/24) Physical Therapy Treatment Note PT-OP-A Visit Information Start: 08/13/24 16:32 Freq: Status: Active Protocol: Document 09/01/24 12:26 AB (Rec: 09/01/24 16:37 AB [id number]) Out-Patient Physical Therapy Visit Information Visit Information Visit Type Treatment Note Visit Start Time 14:35 Visit Stop Time 15:16 Visit Number 2 Number of COMMISSION SPECIALIST Visits 1 PT-OP-B Current Condition Start: 08/13/24 16:32 Freq: Status: Active Protocol: Document 08/27/24 14:37 [facility] (Rec: 08/27/24 16:17 [facility] [id number]) Current Condition History of Current Condition Current Complaints weakness, falls History of Current Condition Pt had 3 seizures last month in 1 day after a day of walking around [place] Neurologist [employer]. Had a fall in [facility] day after so dad helping her around house more. Fell again more recently but doesn't know what caused it. Doesn't go for walks like she used to d/t friend moving away. Has help with everything right now. It has been more hard for her since the 3 seizures so gets more help. She gets help from dad and roommate. hx of 2 brain sx with prior PT that helps improve mobility at the time. Has been feeling tired Treatment Goals Patient/Caregiver Goals Feel stronger to go for walks. dec falls PT-OP-C Subjective Start: 08/13/24 16:32 Freq: Status: Active Protocol: Document 09/01/24 12:26 AB (Rec: 09/01/24 16:37 AB [id number]) OP-PT Subjective Patient Comments Patient Comments Patient reports having no falls since previous session. SLS R 1 sec L less than one sec without UE use PT-OP-D Balance Start: 08/13/24 16:32 Freq: Status: Active Protocol: Document 08/27/24 14:37 LR (Rec: 08/27/24 16:17 [facility] [id number]) Balance Tests Shea Balance Test Shea Balance Test Score 36/56 PT-OP-E Functional Tests Start: 08/13/24 16:32 Freq: Status: Active Protocol: Document 08/27/24 14:37 [facility] (Rec: 08/27/24 16:17 [facility] [id number]) Functional Tests 6 Minute Walk Test Distance 556ft Device Used no AD 30 Second Sit to Stand Test Score 5x Dynamic Gait Index (DGI) Score 10/24 Five Times Sit to Stand Test Score 27 sec PT-OP-G Mobility & Gait Start: 08/13/24 16:32 Freq: Status: Active Protocol: Document 08/27/24 14:37 [facility] (Rec: 08/27/24 16:17 [facility] [id number]) OP Gait Assessment Comments Gait Comments No AD lat lean w/WB on LLE w/ dec LLE clearance >R, dec LLE stance time, slow PT-OP-Q Treatments Start: 08/13/24 16:32 Freq: Status: Active Protocol: Document 09/01/24 12:26 AB (Rec: 09/01/24 16:37 AB [id number]) Therapeutic Exercises Sitting Exercises AROM DF Reps/Minutes X10 X 2 Comments Verbal and visual cues, L forefoot does not clear floor seated hip abd with band Side bilateral Resistance Level one Reps/Minutes 30 sec X 1 then L LE X 10 right LE X 10 ( opp LE stable Comments verbal and tactile cues Standing Exercises stagger stance sit to stand Standing Exercise Name performs without UE use HEP Reps/Minutes X10 X 2 Comments verbal cues, repeated for UE position Heel raise Side bilateral Reps/Minutes X10 with UE use Comments AP WS L LE heel does not clear floor calf stretch Standing Exercise Name FUNMILAYO Side bilateral Reps/Minutes 60 sec knees straight 60 bent X 2 Comments with UE use CGA to close supervision side stepping with band Resistance level one band above knees Reps/Minutes 8 feet left and right X 4 Comments CGA UE on mat VC to avoid toeing out Neuro Re-Education Treatment Balance Activities kick ball Details CGA Reps/Duration 2 min balloon volley Details CGA Reps/Duration 3 min Foam Details Romberg with eyes closed Comments CGA hands above bars minimally tilt board Details lat and AP PA with and without UE use Comments CGA wall fall Reps/Duration X10 and X 4 Comments pillow behind back, close supervision. PT-OP-T Assessment and Plan Start: 08/13/24 16:32 Freq: Status: Active Protocol: Document 09/01/24 12:26 AB (Rec: 09/01/24 16:37 AB [id number]) Physical Therapy Assessment Goals 6 min walk Impairment 556ft Short Term Goal (STG) Pt will show dec fall risk w/ inc gait speed w/ability to walk 700ft in 6 min STG Duration 09/29 Registered Nurse Midwife Goal (LTG) Pt will show dec fall risk w/ inc gait speed w/ability to walk 900ft in 6 min LTG Duration 5/ DGI Impairment 10 Short Term Goal (STG) Pt will have improved DGI to at least 14 to show dec fall risk. STG Duration Registered Nurse Midwife Goal (LTG) Pt will have improved DGI to at least 19 to show dec fall risk. LTG Duration 11/05 sit to stand Impairment 5 in 30 sec Short Term Goal (STG) Pt will be able to do 7 sit to stands in 30 sec to show improved strength STG Duration 10/04 Registered Nurse Midwife Goal (LTG) Pt will be able to do 10 sit to stands in 30 sec to show improved strength LTG Duration / SHEA Impairment 36 Registered Nurse Midwife Goal (LTG) Pt will improve score to at least 45 to demonstrate safe amb w/o AD and less likely to fall LTG Duration / Assessment Summary Assessment Mona requires repeated verbal cues and tactile cues for LE positioning, for sit to stand, but decreased UE use noted. Pt nods no when questioned regarding pain end of session. Physical Therapy Plan Frequency and Duration Frequency of Treatment 1x/Week Duration of treatment (weeks) 10 Plan of Care Start Date 08/27/24 Plan of Care End Date 11/05/24 Next Visit Focus/Plan Next Note Type Treatment Note Next Visit Plan balance exercises, give HEP, hurdles, balance board, balloon volley, Keep HEP small .
--- NOTE | 2024-09-03 16:21 | PT.OTN ---
Current Diagnoses Epilepsy, unspecified, not intractable, with status epilepticus (09/03/24) Other abnormalities of gait and mobility (09/03/24) Weakness (09/03/24) Personal history of other diseases of the nervous system and sense organs (09/03/24) Physical Therapy Treatment Note PT-OP-A Visit Information Start: 08/13/24 16:32 Freq: Status: Active Protocol: Document 09/03/24 14:36 AB (Rec: 09/03/24 16:21 AB [id number]) Out-Patient Physical Therapy Visit Information Visit Information Visit Type Treatment Note Visit Start Time 14:38 Visit Stop Time 15:18 Visit Number 3 Number of MANAGER PACKAGE Visits 2 PT-OP-B Current Condition Start: 08/13/24 16:32 Freq: Status: Active Protocol: Document 08/27/24 14:37 [facility] (Rec: 08/27/24 16:17 [facility] [id number]) Current Condition History of Current Condition Current Complaints weakness, falls History of Current Condition Pt had 3 seizures last month in 1 day after a [place] of [place] Neurologist [employer]. Had a fall in [facility] day after so dad helping her around house more. Fell again more recently but doesn't know what caused it. Doesn't go for walks like she used to d/t friend moving away. Has help with everything right now. It has been more hard for her since the 3 seizures so gets more help. She gets help from dad and roommate. hx of 2 brain sx with prior PT that helps improve mobility at the time. Has been feeling tired Treatment Goals Patient/Caregiver Goals Feel stronger to go for walks. dec falls PT-OP-C Subjective Start: 08/13/24 16:32 Freq: Status: Active Protocol: Document 09/03/24 14:36 AB (Rec: 09/03/24 16:21 AB [id number]) OP-PT Subjective Patient Comments Patient Comments Patient reports she is tired, comments it was hard to get here, Dad just woke up. PT-OP-D Balance Start: 08/13/24 16:32 Freq: Status: Active Protocol: Document 08/27/24 14:37 LR (Rec: 08/27/24 16:17 [facility] [id number]) Balance Tests Ventura Balance Test Ventura Balance Test Score 36/56 PT-OP-E Functional Tests Start: 08/13/24 16:32 Freq: Status: Active Protocol: Document 08/27/24 14:37 [facility] (Rec: 08/27/24 16:17 [facility] [id number]) Functional Tests 6 Minute Walk Test Distance 556ft Device Used no AD 30 Second Sit to Stand Test Score 5x Dynamic Gait Index (DGI) Score 10/24 Five Times Sit to Stand Test Score 27 sec PT-OP-G Mobility & Gait Start: 08/13/24 16:32 Freq: Status: Active Protocol: Document 08/27/24 14:37 [facility] (Rec: 08/27/24 16:17 [facility] [id number]) OP Gait Assessment Comments Gait Comments No AD lat lean w/WB on LLE w/ dec LLE clearance >R, dec LLE stance time, slow PT-OP-Q Treatments Start: 08/13/24 16:32 Freq: Status: Active Protocol: Document 09/03/24 14:36 AB (Rec: 09/03/24 16:21 AB [id number]) Therapeutic Exercises Sitting Exercises AROM DF Reps/Minutes X10 X 2 ( seated and standing) Comments Verbal and visual cues, L forefoot does not clear floor seated hip abd with band Side bilateral Resistance Level one Reps/Minutes 30 sec X 1 then L LE X 10 right LE X 10 ( opp LE stable Comments verbal and tactile cues Standing Exercises stagger stance sit to stand Standing Exercise Name performs without UE use HEP Reps/Minutes X10 Comments verbal cues, repeated for UE position Heel raise Side bilateral Reps/Minutes X10 with UE use Comments AP WS L LE heel does not clear floor calf stretch Standing Exercise Name FUNMILAYO Side bilateral Reps/Minutes 60 sec knees straight 60 bent X 2 Comments with UE use CGA to close supervision side stepping with band Resistance level one band above knees Equipment Used facil at hip to dec toe out Reps/Minutes 10 feet left and right X 6 Comments CGA UE on mat VC to avoid toeing out Neuro Re-Education Treatment Balance Activities kick ball Details CGA Reps/Duration 2 min Comments then one min seated balloon volley Details CGA Reps/Duration 3 min Foam Details Romberg with eyes closed, foam step ups eyes open w/ and w/o UE use Comments CGA hands above bars minimally wall fall Reps/Duration X10 and X 5 Comments pillow behind back, close supervision. PT-OP-T Assessment and Plan Start: 08/13/24 16:32 Freq: Status: Active Protocol: Document 09/03/24 14:36 AB (Rec: 09/03/24 16:21 AB [id number]) Physical Therapy Plan Frequency and Duration Frequency of Treatment 1x/Week Duration of treatment (weeks) 10 Plan of Care Start Date 08/27/24 Plan of Care End Date 11/05/24 Next Visit Focus/Plan Next Note Type Treatment Note Next Visit Plan balance exercises, give HEP, hurdles, balance board, balloon volley, Keep HEP small .
--- NOTE | 2024-09-08 17:27 | PT.OTN ---
Current Diagnoses Epilepsy, unspecified, not intractable, with status epilepticus (09/08/24) Other abnormalities of gait and mobility (09/08/24) Weakness (09/08/24) Personal history of other diseases of the nervous system and sense organs (09/08/24) Physical Therapy Treatment Note PT-OP-A Visit Information Start: 08/13/24 16:32 Freq: Status: Active Protocol: Document 09/08/24 12:19 AB (Rec: 09/08/24 15:20 AB [id number]) Out-Patient Physical Therapy Visit Information Visit Information Visit Type Treatment Note Visit Start Time 14:52 Visit Stop Time 15:18 Visit Number 4 Number of APPLICATION DEVELOPMENT LIAISON Visits 3 PT-OP-B Current Condition Start: 08/13/24 16:32 Freq: Status: Active Protocol: Document 08/27/24 14:37 [facility] (Rec: 08/27/24 16:17 [facility] [id number]) Current Condition History of Current Condition Current Complaints weakness, falls History of Current Condition Pt had 3 seizures last month in 1 day after a day of [place] Neurologist [employer]. Had a fall in [facility] day after so dad helping her around house more. Fell again more recently but doesn't know what caused it. Doesn't go for walks like she used to d/t friend moving away. Has help with everything right now. It has been more hard for her since the 3 seizures so gets more help. She gets help from dad and roommate. hx of 2 brain sx with prior PT that helps improve mobility at the time. Has been feeling tired Treatment Goals Patient/Caregiver Goals Feel stronger to go for walks. dec falls PT-OP-C Subjective Start: 08/13/24 16:32 Freq: Status: Active Protocol: Document 09/08/24 12:19 AB (Rec: 09/08/24 15:20 AB [id number]) OP-PT Subjective Patient Comments Patient Comments Patient reports she just woke up hasn't had anything to eat or coffee, reports having no pain PT-OP-D Balance Start: 08/13/24 16:32 Freq: Status: Active Protocol: Document 08/27/24 14:37 LR (Rec: 08/27/24 16:17 [facility] [id number]) Balance Tests Shea Balance Test Shea Balance Test Score 36/56 PT-OP-E Functional Tests Start: 08/13/24 16:32 Freq: Status: Active Protocol: Document 08/27/24 14:37 [facility] (Rec: 08/27/24 16:17 [facility] [id number]) Functional Tests 6 Minute Walk Test Distance 556ft Device Used no AD 30 Second Sit to Stand Test Score 5x Dynamic Gait Index (DGI) Score 10/24 Five Times Sit to Stand Test Score 27 sec PT-OP-G Mobility & Gait Start: 08/13/24 16:32 Freq: Status: Active Protocol: Document 08/27/24 14:37 [facility] (Rec: 08/27/24 16:17 [facility] [id number]) OP Gait Assessment Comments Gait Comments No AD lat lean w/WB on LLE w/ dec LLE clearance >R, dec LLE stance time, slow PT-OP-Q Treatments Start: 08/13/24 16:32 Freq: Status: Active Protocol: Document 09/08/24 12:19 AB (Rec: 09/08/24 15:20 AB [id number]) Therapeutic Exercises Sitting Exercises AROM DF Reps/Minutes X10 X 2 ( seated and standing) Comments Verbal and visual cues, L forefoot does not clear floor seated hip abd with band Side bilateral Resistance Level one Reps/Minutes 30 sec X 1 then L LE X 10 right LE X 10 ( opp LE stable Comments verbal and tactile cues Standing Exercises stepups Standing Exercise Name 4 and 1 inch with UE use Reps/Minutes X 2 each unable to perform full step up 4 inch, does not flex knee desc 2 stagger stance sit to stand Standing Exercise Name performs without UE use HEP Equipment Used L LE retro Reps/Minutes X10 Comments verbal cues, repeated for UE position calf stretch Standing Exercise Name FUNMILAYO Side bilateral Reps/Minutes 60 sec knees straight 60 bent X 2 Comments with UE use CGA to close supervision side stepping with band Resistance level one band above knees Equipment Used facil at hip to dec toe out Reps/Minutes 10 feet left and right X3 Comments CGA UE on mat VC to avoid toeing out Neuro Re-Education Treatment Balance Activities kick ball Details CGA Reps/Duration 2 min Comments then one min seated balloon volley Details CGA Reps/Duration 3 min tilt board Details lat and AP PA with and without UE use Comments CGA wall fall Reps/Duration x15 Comments pillow behind back, close supervision. PT-OP-T Assessment and Plan Start: 08/13/24 16:32 Freq: Status: Active Protocol: Document 09/08/24 12:19 AB (Rec: 09/08/24 15:20 AB [id number]) Physical Therapy Assessment Goals 6 min walk Impairment 556ft Short Term Goal (STG) Pt will show dec fall risk w/ inc gait speed w/ability to walk 700ft in 6 min STG Duration 09/29 Snf Goal (LTG) Pt will show dec fall risk w/ inc gait speed w/ability to walk 900ft in 6 min LTG Duration 5/ DGI Impairment 10 Short Term Goal (STG) Pt will have improved DGI to at least 14 to show dec fall risk. STG Duration Snf Goal (LTG) Pt will have improved DGI to at least 19 to show dec fall risk. LTG Duration 11/05 sit to stand Impairment 5 in 30 sec Short Term Goal (STG) Pt will be able to do 7 sit to stands in 30 sec to show improved strength STG Duration 10/04 Snf Goal (LTG) Pt will be able to do 10 sit to stands in 30 sec to show improved strength LTG Duration / SHEA Impairment 36 Meter Repairer Helper Goal (LTG) Pt will improve score to at least 45 to demonstrate safe amb w/o AD and less likely to fall LTG Duration 5/ Assessment Summary Assessment Mona reports no increased pain end of session. Good return demonstration with stagger stance sit to stand, patient initiates increased distance between feet during stagger stance positioning prior to previous sessions with this therapist. Decreased quad control with L LE unable to step up 4 inch step with UE use and unable to descend retro on 2 inch ie merely weight shifts back with no knee flexion. Physical Therapy Plan Frequency and Duration Frequency of Treatment 1x/Week Duration of treatment (weeks) 10 Plan of Care Start Date 08/27/24 Plan of Care End Date 11/05/24 Next Visit Focus/Plan Next Note Type Treatment Note Next Visit Plan balance exercises, give HEP, hurdles, balance board, balloon volley, Keep HEP small .
--- NOTE | 2024-09-08 17:27 | PT.OTN ---
Current Diagnoses Epilepsy, unspecified, not intractable, with status epilepticus (09/08/24) Other abnormalities of gait and mobility (09/08/24) Weakness (09/08/24) Personal history of other diseases of the nervous system and sense organs (09/08/24) Physical Therapy Treatment Note PT-OP-A Visit Information Start: 08/13/24 16:32 Freq: Status: Active Protocol: Document 09/08/24 12:19 AB (Rec: 09/08/24 15:20 AB [id number]) Out-Patient Physical Therapy Visit Information Visit Information Visit Type Treatment Note Visit Start Time 14:52 Visit Stop Time 15:18 Visit Number [address] BAILIFF OR SHERIFF Visits 3 PT-OP-B Current Condition Start: 08/13/24 16:32 Freq: Status: Active Protocol: Document 08/27/24 14:37 [facility] (Rec: 08/27/24 16:17 [facility] [id number]) Current Condition History of Current Condition Current Complaints weakness, falls History of Current Condition Pt had 3 seizures last month in 1 day after a day of walking around [place] Neurologist Souqalmal. Had a fall in [facility] day after so dad helping her around house more. Fell again more recently but doesn't know what caused it. Doesn't go for walks like she used to d/t friend moving away. Has help with everything right now. It has been more hard for her since the 3 seizures so gets more help. She gets help from dad and roommate. hx of 2 brain sx with prior PT that helps improve mobility at the time. Has been feeling tired Treatment Goals Patient/Caregiver Goals Feel stronger to go for walks. dec falls PT-OP-C Subjective Start: 08/13/24 16:32 Freq: Status: Active Protocol: Document 09/08/24 12:19 AB (Rec: 09/08/24 15:20 AB [id number]) OP-PT Subjective Patient Comments Patient Comments Patient reports she just woke up hasn't had anything to eat or coffee, reports having no pain PT-OP-D Balance Start: 08/13/24 16:32 Freq: Status: Active Protocol: Document 08/27/24 14:37 LR (Rec: 08/27/24 16:17 [facility] [id number]) Balance Tests Shea Balance Test Shea Balance Test Score 36/56 PT-OP-E Functional Tests Start: 08/13/24 16:32 Freq: Status: Active Protocol: Document 08/27/24 14:37 [facility] (Rec: 08/27/24 16:17 [facility] [id number]) Functional Tests 6 Minute Walk Test Distance 556ft Device Used no AD 30 Second Sit to Stand Test Score 5x Dynamic Gait Index (DGI) Score 10/24 Five Times Sit to Stand Test Score 27 sec PT-OP-G Mobility & Gait Start: 08/13/24 16:32 Freq: Status: Active Protocol: Document 08/27/24 14:37 [facility] (Rec: 08/27/24 16:17 [facility] [id number]) OP Gait Assessment Comments Gait Comments No AD lat lean w/WB on LLE w/ dec LLE clearance >R, dec LLE stance time, slow PT-OP-Q Treatments Start: 08/13/24 16:32 Freq: Status: Active Protocol: Document 09/08/24 12:19 AB (Rec: 09/08/24 15:20 AB [id number]) Therapeutic Exercises Sitting Exercises AROM DF Reps/Minutes X10 X 2 ( seated and standing) Comments Verbal and visual cues, L forefoot does not clear floor seated hip abd with band Side bilateral Resistance Level one Reps/Minutes 30 sec X 1 then L LE X 10 right LE X 10 ( opp LE stable Comments verbal and tactile cues Standing Exercises stepups Standing Exercise Name 4 and 1 inch with UE use Reps/Minutes X 2 each unable to perform full step up 4 inch, does not flex knee desc 2 stagger stance sit to stand Standing Exercise Name performs without UE use HEP Equipment Used L LE retro Reps/Minutes X10 Comments verbal cues, repeated for UE position calf stretch Standing Exercise Name FUNMILAYO Side bilateral Reps/Minutes 60 sec knees straight 60 bent X 2 Comments with UE use CGA to close supervision side stepping with band Resistance level one band above knees Equipment Used facil at hip to dec toe out Reps/Minutes 10 feet left and right X3 Comments CGA UE on mat VC to avoid toeing out Neuro Re-Education Treatment Balance Activities kick ball Details CGA Reps/Duration 2 min Comments then one min seated balloon volley Details CGA Reps/Duration 3 min tilt board Details lat and AP PA with and without UE use Comments CGA wall fall Reps/Duration x15 Comments pillow behind back, close supervision. PT-OP-T Assessment and Plan Start: 08/13/24 16:32 Freq: Status: Active Protocol: Document 09/08/24 12:19 AB (Rec: 09/08/24 15:20 AB [id number]) Physical Therapy Assessment Goals 6 min walk Impairment 556ft Short Term Goal (STG) Pt will show dec fall risk w/ inc gait speed w/ability to walk 700ft in 6 min STG Duration 09/29 Skilled Nursing Goal (LTG) Pt will show dec fall risk w/ inc gait speed w/ability to walk 900ft in 6 min LTG Duration 5/ DGI Impairment 10 Short Term Goal (STG) Pt will have improved DGI to at least 14 to show dec fall risk. STG Duration Skilled Nursing Goal (LTG) Pt will have improved DGI to at least 19 to show dec fall risk. LTG Duration 11/05 sit to stand Impairment 5 in 30 sec Short Term Goal (STG) Pt will be able to do 7 sit to stands in 30 sec to show improved strength STG Duration 10/04 Skilled Nursing Goal (LTG) Pt will be able to do 10 sit to stands in 30 sec to show improved strength LTG Duration / SHEA Impairment 36 [employer] Goal (LTG) Pt will improve score to at least 45 to demonstrate safe amb w/o AD and less likely to fall LTG Duration 5/ Assessment Summary Assessment Mona reports no increased pain end of session. Good return demonstration with stagger stance sit to stand, patient initiates increased distance between feet during stagger stance positioning prior to previous sessions with this therapist. Decreased quad control with L LE unable to step up 4 inch step with UE use and unable to descend retro on 2 inch ie merely weight shifts back with no knee flexion. Physical Therapy Plan Frequency and Duration Frequency of Treatment 1x/Week Duration of treatment (weeks) 10 Plan of Care Start Date 08/27/24 Plan of Care End Date 11/05/24 Next Visit Focus/Plan Next Note Type Treatment Note Next Visit Plan balance exercises, give HEP, hurdles, balance board, balloon volley, Keep HEP small .
--- NOTE | 2024-09-22 16:02 | PT.OTN ---
Current Diagnoses Epilepsy, unspecified, not intractable, with status epilepticus (09/22/24) Other abnormalities of gait and mobility (09/22/24) Weakness (09/22/24) Personal history of other diseases of the nervous system and sense organs (09/22/24) Physical Therapy Treatment Note PT-OP-A Visit Information Start: 08/13/24 16:32 Freq: Status: Active Protocol: Document 09/22/24 14:37 [facility] (Rec: 09/22/24 15:19 [facility] [id number]) Out-Patient Physical Therapy Visit Information Visit Information Visit Type Progress Note Visit Start Time 14:36 Visit Stop Time 15:11 Visit Number 5 Number of CANAL BOAT OPERATOR Visits 0 PT-OP-B Current Condition Start: 08/13/24 16:32 Freq: Status: Active Protocol: Document 08/27/24 14:37 [facility] (Rec: 08/27/24 16:17 [facility] [id number]) Current Condition History of Current Condition Current Complaints weakness, falls History of Current Condition Pt had 3 seizures last month in 1 day after a day of [place] Neurologist Ditto. Had a fall in [facility] day after so dad helping her around house more. Fell again more recently but doesn't know what caused it. Doesn't go for walks like she used to d/t friend moving away. Has help with everything right now. It has been more hard for her since the 3 seizures so gets more help. She gets help from dad and roommate. hx of 2 brain sx with prior PT that helps improve mobility at the time. Has been feeling tired Treatment Goals Patient/Caregiver Goals Feel stronger to go for walks. dec falls PT-OP-C Subjective Start: 08/13/24 16:32 Freq: Status: Active Protocol: Document 09/22/24 14:37 [facility] (Rec: 09/22/24 15:19 [facility] [id number]) OP-PT Subjective Patient Comments Patient Comments notes she just woke up PT-OP-D Balance Start: 08/13/24 16:32 Freq: Status: Active Protocol: Document 09/22/24 14:37 [facility] (Rec: 09/22/24 15:19 [facility] [id number]) Balance Tests Shea Balance Test Shea Balance Test Score 41 PT-OP-E Functional Tests Start: 08/13/24 16:32 Freq: Status: Active Protocol: Document 09/22/24 14:37 [facility] (Rec: 09/22/24 15:19 [facility] [id number]) Functional Tests 6 Minute Walk Test Distance 720ft Device Used no AD 30 Second Sit to Stand Test Score 7 Dynamic Gait Index (DGI) Score 13 Five Times Sit to Stand Test Score 21sec PT-OP-G Mobility & Gait Start: 08/13/24 16:32 Freq: Status: Active Protocol: Document 08/27/24 14:37 [facility] (Rec: 08/27/24 16:17 [place] [id number]) OP Gait Assessment Comments Gait Comments No AD lat lean w/WB on LLE w/ dec LLE clearance >R, dec LLE stance time, slow PT-OP-Q Treatments Start: 08/13/24 16:32 Freq: Status: Active Protocol: Document 09/22/24 14:37 [facility] (Rec: 09/22/24 15:19 [id number] Gym Equipment Shuttle Balance red clips Details w/balloon volley Comments Fwd: WBOS & NBOS side:WBOS & NBOS Therapeutic Exercises Sitting Exercises AROM DF Sitting Exercise Name max cues Reps/Minutes 2x10 Comments Verbal and visual cues, L forefoot does not clear floor Standing Exercises sit to stands Reps/Minutes 30 sec Heel raise Side bilateral Reps/Minutes X10 with UE use Comments max cues use of BLE Other Exercises 6 min walk test Other Exercise Name CGA PT-OP-T Assessment and Plan Start: 08/13/24 16:32 Freq: Status: Active Protocol: Document 09/22/24 14:37 [facility] (Rec: 09/22/24 15:19 [facility] [id number]) Physical Therapy Assessment Goals 6 min walk Impairment 556ft Short Term Goal (STG) Pt will show dec fall risk w/ inc gait speed w/ability to walk 700ft in 6 min STG Duration achieved to 720 ft 09/22 Assisted Goal (LTG) Pt will show dec fall risk w/ inc gait speed w/ability to walk 900ft in 6 min LTG Duration 11/05 DGI Impairment 10 Short Term Goal (STG) Pt will have improved DGI to at least 14 to show dec fall risk. 09/22- improving STG Duration 09/30 [employer] Goal (LTG) Pt will have improved DGI to at least 19 to show dec fall risk. LTG Duration 5/ sit to stand Impairment 5 in 30 sec Short Term Goal (STG) Pt will be able to do 7 sit to stands in 30 sec to show improved strength STG Duration achieved to 7 09/22 [employer] Goal (LTG) Pt will be able to do 10 sit to stands in 30 sec to show improved strength LTG Duration 11/05 SHEA Impairment 36 [employer] Goal (LTG) Pt will improve score to at least 45 to demonstrate safe amb w/o AD and less likely to fall 09/22- LTG Duration 5 Assessment Summary Assessment Pt has made excellent progress w/PT and is showing improved strength and balance. She cont to be limited and is encouraged to exercise at home also. She has very weak DF on L which affects her gait. Physical Therapy Plan Frequency and Duration Frequency of Treatment 1x/Week Duration of treatment (weeks) 10 Plan of Care Start Date 08/27/24 Plan of Care End Date 11/05/24 Therapeutic Interventions Therapeutic Interventions Balance Training,Gait Training ,Home Exercise Program,Joint Mobilizations,Manual Therapy, Neuromuscular Re-education, Orthotic/Prosthetic Management ,Patient/Caregiver Education, Self-Care/Home Management,Soft Tissue Mobilization,Taping, Therapeutic Activities, Therapeutic Exercises Modalities Electric Stimulation Next Visit Focus/Plan Next Note Type Treatment Note Next Visit Plan balance exercises, give HEP, hurdles, balance board, balloon volley, Keep HEP small . shorter visits for insurance limits
--- NOTE | 2024-09-30 15:27 | PT.OTN ---
Current Diagnoses Epilepsy, unspecified, not intractable, with status epilepticus (09/30/24) Other abnormalities of gait and mobility (09/30/24) Weakness (09/30/24) Personal history of other diseases of the nervous system and sense organs (09/30/24) Physical Therapy Treatment Note PT-OP-A Visit Information Start: 08/13/24 16:32 Freq: Status: Active Protocol: Document 09/30/24 12:59 AB (Rec: 09/30/24 15:27 AB [id number]) Out-Patient Physical Therapy Visit Information Visit Information Visit Type Treatment Note Visit Start Time 13:58 Visit Stop Time 14:31 Visit Number 6 Number of AUTOMATIC PROFILE SANDER OPERATOR Visits 1 PT-OP-B Current Condition Start: 08/13/24 16:32 Freq: Status: Active Protocol: Document 08/27/24 14:37 [facility] (Rec: 08/27/24 16:17 [facility] [id number]) Current Condition History of Current Condition Current Complaints weakness, falls History of Current Condition Pt had 3 seizures last month in 1 day after a day of walking around the mall. Neurologist [employer]. Had a fall in [facility] day after so dad helping her around house more. Fell again more recently but doesn't know what caused it. Doesn't go for walks like she used to d/t friend moving away. Has help with everything right now. It has been more hard for her since the 3 seizures so gets more help. She gets help from dad and roommate. hx of 2 brain sx with prior PT that helps improve mobility at the time. Has been feeling tired Treatment Goals Patient/Caregiver Goals Feel stronger to go for walks. dec falls PT-OP-C Subjective Start: 08/13/24 16:32 Freq: Status: Active Protocol: Document 09/30/24 12:59 AB (Rec: 09/30/24 15:27 AB [id number]) OP-PT Subjective Patient Comments Patient Comments Mona reports she woke up early today, Aunt had to take Grandpa somewhere, that was the only reason. Patient reports she is doing her HEP exercise and it is still hard. PT-OP-D Balance Start: 08/13/24 16:32 Freq: Status: Active Protocol: Document 09/22/24 14:37 LR (Rec: 09/22/24 15:19 [facility] [id number]) Balance Tests Shea Balance Test Shea Balance Test Score 41 PT-OP-E Functional Tests Start: 08/13/24 16:32 Freq: Status: Active Protocol: Document 09/22/24 14:37 [facility] (Rec: 09/22/24 15:19 [facility] [id number]) Functional Tests 6 Minute Walk Test Distance 720ft Device Used no AD 30 Second Sit to Stand Test Score 7 Dynamic Gait Index (DGI) Score 13 Five Times Sit to Stand Test Score 21sec PT-OP-G Mobility & Gait Start: 08/13/24 16:32 Freq: Status: Active Protocol: Document 08/27/24 14:37 [facility] (Rec: 08/27/24 16:17 [facility] [id number]) OP Gait Assessment Comments Gait Comments No AD lat lean w/WB on LLE w/ dec LLE clearance >R, dec LLE stance time, slow PT-OP-Q Treatments Start: 08/13/24 16:32 Freq: Status: Active Protocol: Document 09/30/24 12:59 AB (Rec: 09/30/24 15:27 AB [id number]) Therapeutic Exercises Sitting Exercises AROM DF Sitting Exercise Name max cues also PF this session Side bilateral Reps/Minutes X10 Comments Verbal and visual cues, L forefoot does not clear floor seated hip abd with band Sitting Exercise Name HEP Side bilateral Resistance Level one Reps/Minutes X10 then one minutes X 1 Comments verbal and tactile cues Standing Exercises sit to stands Standing Exercise Name stagger stance L LE back Side bilateral Reps/Minutes X10 Comments VC to dec hip add Heel raise Standing Exercise Name more AP WS does not fully clear heel Side bilateral Reps/Minutes X10 with UE use Comments max cues use of BLE calf stretch Standing Exercise Name FUNMILAYO Side bilateral Reps/Minutes 60 sec knees straight 60 bent X 2 Comments with UE use CGA to close supervision side stepping with band Resistance level one band above knees Equipment Used facil at hip to dec toe out Reps/Minutes 10 feet left and right X1 Comments CGA UE on mat VC to avoid toeing out Neuro Re-Education Treatment Balance Activities step up taps Details L LE Surface foam pad Reps/Duration X [address] to [address] foot fully on foam pad with light UE use kick ball Details CGA Reps/Duration 2 min Comments then one min seated balloon volley Details CGA Reps/Duration 3 min Foam Details Romberg with eyes closed, stagger with eyes closed Comments CGA hands above bars minimally wall fall Reps/Duration x10 Comments pillow behind back, close supervision. PT-OP-T Assessment and Plan Start: 08/13/24 16:32 Freq: Status: Active Protocol: Document 09/30/24 12:59 AB (Rec: 09/30/24 15:27 AB [id number]) Physical Therapy Assessment Goals 6 min walk Impairment 556ft Short Term Goal (STG) Pt will show dec fall risk w/ inc gait speed w/ability to walk 700ft in 6 min STG Duration achieved to 720 ft 09/22 Half-Way Goal (LTG) Pt will show dec fall risk w/ inc gait speed w/ability to walk 900ft in 6 min LTG Duration 5/ DGI Impairment 10 Short Term Goal (STG) Pt will have improved DGI to at least 14 to show dec fall risk. 09/22- improving STG Duration 09/30 [place] Goal (LTG) Pt will have improved DGI to at least 19 to show dec fall risk. LTG Duration 5/ sit to stand Impairment 5 in 30 sec Short Term Goal (STG) Pt will be able to do 7 sit to stands in 30 sec to show improved strength STG Duration achieved to 7 09/22 [place] Goal (LTG) Pt will be able to do 10 sit to stands in 30 sec to show improved strength LTG Duration / SHEA Impairment 36 [place] Goal (LTG) Pt will improve score to at least 45 to demonstrate safe amb w/o AD and less likely to fall 09/22- LTG Duration / Assessment Summary Assessment Mona with no complaints of pain end of session. Mona able to laura and doff band loop for seated hip abduction exercise. Physical Therapy Plan Frequency and Duration Frequency of Treatment 1x/Week Duration of treatment (weeks) 10 Plan of Care Start Date 08/27/24 Plan of Care End Date 11/05/24 Next Visit Focus/Plan Next Note Type Treatment Note Next Visit Plan balance exercises, give HEP, hurdles, balance board, balloon volley, Keep HEP small . shorter visits for insurance limits
--- NOTE | 2024-10-06 16:25 | PT.OTN ---
Current Diagnoses Epilepsy, unspecified, not intractable, with status epilepticus (10/06/24) Other abnormalities of gait and mobility (10/06/24) Weakness (10/06/24) Personal history of other diseases of the nervous system and sense organs (10/06/24) Physical Therapy Treatment Note PT-OP-A Visit Information Start: 08/13/24 16:32 Freq: Status: Active Protocol: Document 10/06/24 13:44 AB (Rec: 10/06/24 16:25 AB [id number]) Out-Patient Physical Therapy Visit Information Visit Information Visit Start Time 13:57 Visit Stop Time 14:31 Visit Number 7 Number of MUD ANALYSIS SUPERVISOR Visits 2 PT-OP-B Current Condition Start: 08/13/24 16:32 Freq: Status: Active Protocol: Document 08/27/24 14:37 [facility] (Rec: 08/27/24 16:17 [facility] [id number]) Current Condition History of Current Condition Current Complaints weakness, falls History of Current Condition Pt had 3 seizures last month in 1 day after a day of [place]. Neurologist [employer]. Had a fall in [facility] day after so dad helping her around house more. Fell again more recently but doesn't know what caused it. Doesn't go for walks like she used to d/t friend moving away. Has help with everything right now. It has been more hard for her since the 3 seizures so gets more help. She gets help from dad and roommate. hx of 2 brain sx with prior PT that helps improve mobility at the time. Has been feeling tired Treatment Goals Patient/Caregiver Goals Feel stronger to go for walks. dec falls PT-OP-C Subjective Start: 08/13/24 16:32 Freq: Status: Active Protocol: Document 10/06/24 13:44 AB (Rec: 10/06/24 16:25 AB [id number]) OP-PT Subjective Patient Comments Patient Comments Mona reports feeling tired today, reports perfoming exercises sometimes, reports that they are hard, but not painful. PT-OP-D Balance Start: 08/13/24 16:32 Freq: Status: Active Protocol: Document 09/22/24 14:37 LR (Rec: 09/22/24 15:19 [facility] [id number]) Balance Tests Shea Balance Test Shea Balance Test Score 41 PT-OP-E Functional Tests Start: 08/13/24 16:32 Freq: Status: Active Protocol: Document 09/22/24 14:37 [facility] (Rec: 09/22/24 15:19 [facility] [id number]) Functional Tests 6 Minute Walk Test Distance 720ft Device Used no AD 30 Second Sit to Stand Test Score 7 Dynamic Gait Index (DGI) Score 13 Five Times Sit to Stand Test Score 21sec PT-OP-G Mobility & Gait Start: 08/13/24 16:32 Freq: Status: Active Protocol: Document 08/27/24 14:37 [facility] (Rec: 08/27/24 16:17 [facility] [id number]) OP Gait Assessment Comments Gait Comments No AD lat lean w/WB on LLE w/ dec LLE clearance >R, dec LLE stance time, slow PT-OP-Q Treatments Start: 08/13/24 16:32 Freq: Status: Active Protocol: Document 10/06/24 13:44 AB (Rec: 10/06/24 16:25 AB [id number]) Therapeutic Exercises Sitting Exercises AROM DF Sitting Exercise Name max cues also PF this session Side bilateral Reps/Minutes X10 Comments Verbal and visual cues, L forefoot does not clear floor seated hip abd with band Sitting Exercise Name HEP Side bilateral Resistance Level one Reps/Minutes X12 then one minutes X 1 Comments verbal and tactile cues Standing Exercises stepups Standing Exercise Name on foam with UE support Side bilateral Reps/Minutes X 4 each LE Comments AA for L LE to position fully on step, able to posit fore foot only stagger stance sit to stand Standing Exercise Name performs without UE use HEP Equipment Used L LE retro Reps/Minutes X8 Comments verbal cues, repeated for UE position calf stretch Standing Exercise Name FUNMILAYO Side bilateral Reps/Minutes 60 sec knees straight 60 bent X 2 Comments with UE use CGA to close supervision side stepping with band Resistance level one band above knees Equipment Used facil at hip to dec toe out Reps/Minutes 10 feet left and right X1 Comments CGA UE on mat VC to avoid toeing out Neuro Re-Education Treatment Balance Activities step up taps Details B LE Surface foam pad Reps/Duration X 8 each kick ball Details CGA Reps/Duration 2 min Comments then one min seated balloon volley Details CGA Reps/Duration 3 min tilt board Details lat and AP PA with and without UE use Comments CGA wall fall Reps/Duration x10 Comments pillow behind back, close supervision. PT-OP-T Assessment and Plan Start: 08/13/24 16:32 Freq: Status: Active Protocol: Document 10/06/24 13:44 AB (Rec: 10/06/24 16:25 AB [id number]) Physical Therapy Assessment Goals 6 min walk Impairment 556ft Short Term Goal (STG) Pt will show dec fall risk w/ inc gait speed w/ability to walk 700ft in 6 min STG Duration achieved to 720 ft 09/22 Cullet Washer Goal (LTG) Pt will show dec fall risk w/ inc gait speed w/ability to walk 900ft in 6 min LTG Duration 5/ DGI Impairment 10 Short Term Goal (STG) Pt will have improved DGI to at least 14 to show dec fall risk. 09/22- improving STG Duration 09/30 Cul[place] Washer Goal (LTG) Pt will have improved DGI to at least 19 to show dec fall risk. LTG Duration 5/ sit to stand Impairment 5 in 30 sec Short Term Goal (STG) Pt will be able to do 7 sit to stands in 30 sec to show improved strength STG Duration achieved to 7 09/22 Cul[place] Washer Goal (LTG) Pt will be able to do 10 sit to stands in 30 sec to show improved strength LTG Duration / SHEA Impairment 36 Longterm Goal (LTG) Pt will improve score to at least 45 to demonstrate safe amb w/o AD and less likely to fall 09/22- LTG Duration 5/ Assessment Summary Assessment Mona reports having no pain end of session. Increased sarah to sit to stand stagger stance this session with increased repetitions added this session. With UE use and occ assist, VC for lateral weight shift able to clear sonia with L LE. Physical Therapy Plan Frequency and Duration Frequency of Treatment 1x/Week Duration of treatment (weeks) 10 Plan of Care Start Date 08/27/24 Plan of Care End Date 11/05/24 Next Visit Focus/Plan Next Note Type Treatment Note Next Visit Plan balance exercises, give HEP, hurdles, balance board, balloon volley, Keep HEP small . shorter visits for insurance limits
--- NOTE | 2024-10-13 15:44 | PT.OTN ---
Current Diagnoses Epilepsy, unspecified, not intractable, with status epilepticus (10/13/24) Other abnormalities of gait and mobility (10/13/24) Weakness (10/13/24) Personal history of other diseases of the nervous system and sense organs (10/13/24) Physical Therapy Treatment Note PT-OP-A Visit Information Start: 08/13/24 16:32 Freq: Status: Active Protocol: Document 10/13/24 13:53 [facility] (Rec: 10/13/24 15:27 [facility] [id number]) Out-Patient Physical Therapy Visit Information Visit Information Visit Type Treatment Note Visit Start Time 13:52 Visit Stop Time 14:27 Visit Number 8 Number of BICYCLE REPAIRER Visits 0 PT-OP-B Current Condition Start: 08/13/24 16:32 Freq: Status: Active Protocol: Document 08/27/24 14:37 [facility] (Rec: 08/27/24 16:17 [facility] [id number]) Current Condition History of Current Condition Current Complaints weakness, falls History of Current Condition Pt had 3 seizures last month in 1 day after a day of walking around [place] Neurologist [employer]. Had a fall in [facility] day after so dad helping her around house more. Fell again more recently but doesn't know what caused it. Doesn't go for walks like she used to d/t friend moving away. Has help with everything right now. It has been more hard for her since the 3 seizures so gets more help. She gets help from dad and roommate. hx of 2 brain sx with prior PT that helps improve mobility at the time. Has been feeling tired Treatment Goals Patient/Caregiver Goals Feel stronger to go for walks. dec falls PT-OP-C Subjective Start: 08/13/24 16:32 Freq: Status: Active Protocol: Document 10/13/24 13:53 [facility] (Rec: 10/13/24 15:27 [facility] [id number]) OP-PT Subjective Patient Comments Patient Comments Pt reports tired today. Just finished OT PT-OP-D Balance Start: 08/13/24 16:32 Freq: Status: Active Protocol: Document 09/22/24 14:37 [facility] (Rec: 09/22/24 15:19 [facility] [id number]) Balance Tests Shea Balance Test Shea Balance Test Score 41 PT-OP-E Functional Tests Start: 08/13/24 16:32 Freq: Status: Active Protocol: Document 09/22/24 14:37 [facility] (Rec: 09/22/24 15:[id number] Functional Tests 6 Minute Walk Test Distance 720ft Device Used no AD 30 Second Sit to Stand Test Score 7 Dynamic Gait Index (DGI) Score 13 Five Times Sit to Stand Test Score 21sec PT-OP-G Mobility & Gait Start: 08/13/24 16:32 Freq: Status: Active Protocol: Document 08/27/24 14:37 [facility] (Rec: 08/27/24 16:17 [id number] OP Gait Assessment Comments Gait Comments No AD lat lean w/WB on LLE w/ dec LLE clearance >R, dec LLE stance time, slow PT-OP-Q Treatments Start: 08/13/24 16:32 Freq: Status: Active Protocol: Document 10/13/24 13:53 [facility] (Rec: 10/13/24 15:27 [id number] Gym Equipment Shuttle Balance red clips Details w/balloon volley Comments Fwd: WBOS & NBOS, side:WBOS & NBOS Therapeutic Exercises Sitting Exercises AROM DF Side bilateral Reps/Minutes 15 Comments PT assisted to go up and VC max seated hip abd with band Sitting Exercise Name HEP Side bilateral Resistance Level 2 Reps/Minutes X12 then one minutes X 1 Comments cues and encouragement LLE use Standing Exercises resisted walk Standing Exercise Name fwd/back Side bilateral Resistance lvl 2 at knees Reps/Minutes 20ft x2 ea sit to stands Side bilateral Reps/Minutes 15 Comments VC for knee position side stepping with band Resistance level 2 band above knees Reps/Minutes 20ft ea Comments rail, PT assist at trunk Neuro Re-Education Treatment Balance Activities backwards walk Comments B 30september Comments [id number] x2 hurdles Equipment 6 hurdles Comments 1. step to x1 2. reciprocal x5 step up taps Comments step taps to 8 in step x12 B Foam Comments walk over 3 black foam and lg dark blue foam x6 PT-OP-T Assessment and Plan Start: 08/13/24 16:32 Freq: Status: Active Protocol: Document 10/13/24 13:53 [facility] (Rec: 10/13/24 15:27 [facility] [id number]) Physical Therapy Assessment Goals 6 min walk Impairment 556ft Short Term Goal (STG) Pt will show dec fall risk w/ inc gait speed w/ability to walk 700ft in 6 min STG Duration achieved to 720 ft 09/22 Correction Goal (LTG) Pt will show dec fall risk w/ inc gait speed w/ability to walk 900ft in 6 min LTG Duration 11/05 DGI Impairment 10 Short Term Goal (STG) Pt will have improved DGI to at least 14 to show dec fall risk. 09/22- improving STG Duration 09/30 Fourth Officer Goal (LTG) Pt will have improved DGI to at least 19 to show dec fall risk. LTG Duration 11/05 sit to stand Impairment 5 in 30 sec Short Term Goal (STG) Pt will be able to do 7 sit to stands in 30 sec to show improved strength STG Duration achieved to 7 09/22 Correction Goal (LTG) Pt will be able to do 10 sit to stands in 30 sec to show improved strength LTG Duration 11/05 SHEA Impairment 36 Correction Goal (LTG) Pt will improve score to at least 45 to demonstrate safe amb w/o AD and less likely to fall 09/22- LTG Duration 11/05 Assessment Summary Assessment pt did well with balance exercises but does require cues for less UE use. She is encouraged to do sit to stands , hip abd w/band and seated DF at home. Physical Therapy Plan Next Visit Focus/Plan Next Note Type Treatment Note Next Visit Plan balance exercises, review HEP, hurdles, balance board, balloon volley, Keep HEP small . shorter visits for insurance limits
--- NOTE | 2024-10-22 15:17 | PT.OTN ---
Current Diagnoses Epilepsy, unspecified, not intractable, with status epilepticus (10/22/24) Other abnormalities of gait and mobility (10/22/24) Weakness (10/22/24) Personal history of other diseases of the nervous system and sense organs (10/22/24) Physical Therapy Treatment Note PT-OP-A Visit Information Start: 08/13/24 16:32 Freq: Status: Active Protocol: Document 10/22/24 14:47 [facility] (Rec: 10/22/24 15:17 [facility] [id number]) Out-Patient Physical Therapy Visit Information Visit Information Visit Type Progress Note Visit Start Time 14:35 Visit Stop Time 15:05 Visit Number 9 Number of PARKING LOT SPOTTER Visits 0 PT-OP-B Current Condition Start: 08/13/24 16:32 Freq: Status: Active Protocol: Document 08/27/24 14:37 [facility] (Rec: 08/27/24 16:17 [facility] [id number]) Current Condition History of Current Condition Current Complaints weakness, falls History of Current Condition Pt had 3 seizures last month in 1 day after a day of [place] Neurologist [employer] ???. Had a fall in [facility] day after so dad helping her around house more. Fell again more recently but doesn't know what caused it. Doesn't go for walks like she used to d/t friend moving away. Has help with everything right now. It has been more hard for her since the 3 seizures so gets more help. She gets help from dad and roommate. hx of 2 brain sx with prior PT that helps improve mobility at the time. Has been feeling tired Treatment Goals Patient/Caregiver Goals Feel stronger to go for walks. dec falls PT-OP-C Subjective Start: 08/13/24 16:32 Freq: Status: Active Protocol: Document 10/22/24 14:47 [facility] (Rec: 10/22/24 15:17 [facility] [id number]) OP-PT Subjective Patient Comments Patient Comments pt reports tired PT-OP-D Balance Start: 08/13/24 16:32 Freq: Status: Active Protocol: Document 10/22/24 14:47 [facility] (Rec: 10/22/24 15:17 [facility] [id number]) Balance Tests Shea Balance Test Shea Balance Test Score 47 PT-OP-E Functional Tests Start: 08/13/24 16:32 Freq: Status: Active Protocol: Document 10/22/24 14:47 [facility] (Rec: 10/22/24 15:17 [facility] [id number]) Functional Tests 6 Minute Walk Test Distance 688ft Device Used no AD 30 Second Sit to Stand Test Score 8 Dynamic Gait Index (DGI) Score 16 PT-OP-G Mobility & Gait Start: 08/13/24 16:32 Freq: Status: Active Protocol: Document 08/27/24 14:37 [facility] (Rec: 08/27/24 16:17 [facility] [id number]) OP Gait Assessment Comments Gait Comments No AD lat lean w/WB on LLE w/ dec LLE clearance >R, dec LLE stance time, slow PT-OP-Q Treatments Start: 08/13/24 16:32 Freq: Status: Active Protocol: Document 10/22/24 14:47 [facility] (Rec: 10/22/24 15:17 [facility] [id number]) Therapeutic Exercises Standing Exercises sit to stands Side bilateral Reps/Minutes 15, 30 sec Other Exercises 6 min walk test Other Exercise Name CGA Neuro Re-Education Treatment Balance Activities testing Comments DGI, SHEA hurdles Equipment 6 hurdles Comments reciprocal x4 Foam Comments walk over 5 black foam and lg blue foam x6 PT-OP-T Assessment and Plan Start: 08/13/24 16:32 Freq: Status: Active Protocol: Document 10/22/24 14:47 [facility] (Rec: 10/22/24 15:17 [facility] [id number]) Physical Therapy Assessment Goals 6 min walk Impairment 556ft Short Term Goal (STG) Pt will show dec fall risk w/ inc gait speed w/ability to walk 700ft in 6 min STG Duration achieved to 720 ft 09/22 Order Department Supervisor Goal (LTG) Pt will show dec fall risk w/ inc gait speed w/ability to walk 900ft in 6 min 10/22-688ft LTG Duration 12/03 DGI Impairment 10 Short Term Goal (STG) Pt will have improved DGI to at least 14 to show dec fall risk. 09/22- improving STG Duration achieved to 16 Usp Goal (LTG) Pt will have improved DGI to at least 19 to show dec fall risk. 10/22- LTG Duration 12/03 sit to stand Impairment 5 in 30 sec Short Term Goal (STG) Pt will be able to do 7 sit to stands in 30 sec to show improved strength STG Duration achieved to 7 09/22 Usp Goal (LTG) Pt will be able to do 10 sit to stands in 30 sec to show improved strength 10/22-improving 8x LTG Duration 12/03 SHEA Impairment 36 Usp Goal (LTG) Pt will improve score to at least 45 to demonstrate safe amb w/o AD and less likely to fall 09/22- LTG Duration achieved to 47 Assessment Summary Assessment Pt has made progress w/balance and is showing overall dec risk for falls. Encouraging pt to participate in HEP also. Plan to work on cont balance over the next 6 weeks to dec pt risk for falls Physical Therapy Plan Frequency and Duration Frequency of Treatment 1x/Week Duration of treatment (weeks) 6 Plan of Care Start Date 10/22/24 Plan of Care End Date 12/03/24 Therapeutic Interventions Therapeutic Interventions Balance Training,Gait Training ,Home Exercise Program,Joint Mobilizations,Manual Therapy, Neuromuscular Re-education, Orthotic/Prosthetic Management ,Patient/Caregiver Education, Self-Care/Home Management,Soft Tissue Mobilization,Taping, Therapeutic Activities, Therapeutic Exercises Modalities Electric Stimulation Next Visit Focus/Plan Next Note Type Treatment Note Next Visit Plan balance exercises, review HEP, huratilios, balance board, balloon volley, Keep HEP small . shorter visits for insurance limits
--- NOTE | 2024-10-22 15:17 | PT.OPPOC ---
Physical, Occupational & Speech Therapy At [facility] Current Diagnoses Epilepsy, unspecified, not intractable, with status epilepticus (10/22/24) Other abnormalities of gait and mobility (10/22/24) Weakness (10/22/24) Personal history of other diseases of the nervous system and sense organs (10/22/24) Visit Care Team Role Provider Type Cirilo Bryan MD Attending Provider Physician Family Provider Primary Care Provider Referring Provider Specialty: Family Practice Address: [address] [place] [address], [facility] Email: [email or web address] Plan Of Care PT-OP-B Current Condition Start: 08/13/24 16:32 Freq: Status: Active Protocol: Document 08/27/24 14:37 [facility] (Rec: 08/27/24 16:17 [facility] [id number]) Current Condition History of Current Condition Current Complaints weakness, falls History of Current Condition Pt had 3 seizures last month in 1 day after a day of [place] Neurologist [employer]. Had a fall in [facility] day after so dad helping her around house more. Fell again more recently but doesn't know what caused it. Doesn't go for walks like she used to d/t friend moving away. Has help with everything right now. It has been more hard for her since the 3 seizures so gets more help. She gets help from dad and roommate. hx of 2 brain sx with prior PT that helps improve mobility at the time. Has been feeling tired Treatment Goals Patient/Caregiver Goals Feel stronger to go for walks. dec falls PT-OP-T Assessment and Plan Start: 08/13/24 16:32 Freq: Status: Active Protocol: Document 10/22/24 14:47 [facility] (Rec: 10/22/24 15:17 [facility] [id number]) Physical Therapy Assessment Goals 6 min walk Impairment 556ft Short Term Goal (STG) Pt will show dec fall risk w/ inc gait speed w/ability to walk 700ft in 6 min STG Duration achieved to 720 ft 18 Planer Setter Goal (LTG) Pt will show dec fall risk w/ inc gait speed w/ability to walk 900ft in 6 min 4/17-688ft LTG Duration 12/03 DGI Impairment 10 Short Term Goal (STG) Pt will have improved DGI to at least 14 to show dec fall risk. 09/22- improving STG Duration achieved to 16 Jail Goal (LTG) Pt will have improved DGI to at least 19 to show dec fall risk. 10/22- LTG Duration 12/03 sit to stand Impairment 5 in 30 sec Short Term Goal (STG) Pt will be able to do 7 sit to stands in 30 sec to show improved strength STG Duration achieved to 7 09/22 Planer Setter Goal (LTG) Pt will be able to do 10 sit to stands in 30 sec to show improved strength 10/22-improving 8x LTG Duration 12/03 SHEA Impairment 36 Jail Goal (LTG) Pt will improve score to at least 45 to demonstrate safe amb w/o AD and less likely to fall 09/22- LTG Duration achieved to 47 Assessment Summary Assessment Pt has made progress w/balance and is showing overall dec risk for falls. Encouraging pt to participate in HEP also. Plan to work on cont balance over the next 6 weeks to dec pt risk for falls Physical Therapy Plan Frequency and Duration Frequency of Treatment 1x/Week Duration of treatment (weeks) 6 Plan of Care Start Date 10/22/24 Plan of Care End Date 12/03/24 Therapeutic Interventions Therapeutic Interventions Balance Training,Gait Training ,Home Exercise Program,Joint Mobilizations,Manual Therapy, Neuromuscular Re-education, Orthotic/Prosthetic Management ,Patient/Caregiver Education, Self-Care/Home Management,Soft Tissue Mobilization,Taping, Therapeutic Activities, Therapeutic Exercises Modalities Electric Stimulation Next Visit Focus/Plan Next Note Type Treatment Note Next Visit Plan balance exercises, review HEP, hurdles, balance board, balloon volley, Keep HEP small . shorter visits for insurance limits Plan of Care Dates Plan of Care Start Date 10/22/24 Plan of Care End Date 12/03/24 Electronically Signed by: Lilibeth Schroeder, PT 10/22/24 3243 If you are in agreement with this Plan of Care, please return a signed and dated copy. I have reviewed this Plan of Care and certify that the skilled therapy services above are required to meet the patient?s needs. Physician Signature Date Printed Name and Credentials Clinical Instructor Signature Printed Name and Credentials
--- NOTE | 2024-11-04 15:19 | PT.OTN ---
Current Diagnoses Epilepsy, unspecified, not intractable, with status epilepticus (11/04/24) Other abnormalities of gait and mobility (11/04/24) Weakness (11/04/24) Personal history of other diseases of the nervous system and sense organs (11/04/24) Physical Therapy Treatment Note PT-OP-A Visit Information Start: 08/13/24 16:32 Freq: Status: Active Protocol: Document 11/04/24 14:40 [facility] (Rec: 11/04/24 15:19 [facility] [id number]) Out-Patient Physical Therapy Visit Information Visit Information Visit Type Treatment Note Visit Start Time 14:35 Visit Stop Time 15:08 Visit Number 10 Number of HEAD TRACK COACH Visits 0 PT-OP-B Current Condition Start: 08/13/24 16:32 Freq: Status: Active Protocol: Document 08/27/24 14:37 [facility] (Rec: 08/27/24 16:17 [facility] [id number]) Current Condition History of Current Condition Current Complaints weakness, falls History of Current Condition Pt had 3 seizures last month in 1 day after a day of walking around the [place]. Neurologist [employer]. Had a fall in [facility] day after so dad helping her around house more. Fell again more recently but doesn't know what caused it. Doesn't go for walks like she used to d/t friend moving away. Has help with everything right now. It has been more hard for her since the 3 seizures so gets more help. She gets help from dad and roommate. hx of 2 brain sx with prior PT that helps improve mobility at the time. Has been feeling tired Treatment Goals Patient/Caregiver Goals Feel stronger to go for walks. dec falls PT-OP-C Subjective Start: 08/13/24 16:32 Freq: Status: Active Protocol: Document 11/04/24 14:40 [facility] (Rec: 11/04/24 15:19 [facility] [id number]) OP-PT Subjective Patient Comments Patient Comments pt reports she started job training this week. it goes from 9-1 PT-OP-D Balance Start: 08/13/24 16:32 Freq: Status: Active Protocol: Document 10/22/24 14:47 [facility] (Rec: 10/22/24 15:17 [facility] [id number]) Balance Tests Shea Balance Test Shea Balance Test Score 47 PT-OP-E Functional Tests Start: 08/13/24 16:32 Freq: Status: Active Protocol: Document 10/22/24 14:47 [facility] (Rec: 10/22/24 15:17 [id number] Functional Tests 6 Minute Walk Test Distance 688ft Device Used no AD 30 Second Sit to Stand Test Score 8 Dynamic Gait Index (DGI) Score 16 PT-OP-G Mobility & Gait Start: 08/13/24 16:32 Freq: Status: Active Protocol: Document 08/27/24 14:37 [facility] (Rec: 08/27/24 16:17 [id number] OP Gait Assessment Comments Gait Comments No AD lat lean w/WB on LLE w/ dec LLE clearance >R, dec LLE stance time, slow PT-OP-Q Treatments Start: 08/13/24 16:32 Freq: Status: Active Protocol: Document 11/04/24 14:40 [facility] (Rec: 11/04/24 15:19 [facility] [id number]) Therapeutic Exercises Sitting Exercises AROM DF Side bilateral Reps/Minutes 15 Comments PT assisted to go up and VC max seated hip abd with band Sitting Exercise Name HEP Side bilateral Resistance Level 2 Reps/Minutes X12 then one minutes X 1 Comments cues and encouragement LLE use Standing Exercises sit to stands Side bilateral Reps/Minutes 15 Neuro Re-Education Treatment Balance Activities [place] Comments 10ftx2 ea hurdles Details rail prn Equipment 6 hurdles Comments reciprocal x6 sidestep x2 B step up taps Comments step up 5 in step x10 w/prn use of rail tilt board Details 1. lat 2. fwd/back Comments 1. EC ea 2. tilts ea PT-OP-T Assessment and Plan Start: 08/13/24 16:32 Freq: Status: Active Protocol: Document 11/04/24 14:40 [facility] (Rec: 11/04/24 15:19 [facility] [id number]) Physical Therapy Assessment Goals 6 min walk Impairment 556ft Short Term Goal (STG) Pt will show dec fall risk w/ inc gait speed w/ability to walk 700ft in 6 min STG Duration achieved to 720 ft 09/22 Nursing Home Goal (LTG) Pt will show dec fall risk w/ inc gait speed w/ability to walk 900ft in 6 min 10/22-688ft LTG Duration 12/03 DGI Impairment 10 Short Term Goal (STG) Pt will have improved DGI to at least 14 to show dec fall risk. 09/22- improving STG Duration achieved to 16 Nursing Home Goal (LTG) Pt will have improved DGI to at least 19 to show dec fall risk. 10/22- LTG Duration 12/03 sit to stand Impairment 5 in 30 sec Short Term Goal (STG) Pt will be able to do 7 sit to stands in 30 sec to show improved strength STG Duration achieved to 7 09/22 [employer] Goal (LTG) Pt will be able to do 10 sit to stands in 30 sec to show improved strength 10/22-improving 8x LTG Duration 12/03 SHEA Impairment 36 [employer] Se[employer] Engineer Goal (LTG) Pt will improve score to at least 45 to demonstrate safe amb w/o AD and less likely to fall 09/22- LTG Duration achieved to 47 Assessment Summary Assessment Pt still requires significant encouragement w/exercises for inc effort and full motion and control.She was challenged by exercises but was compliant w /exercises during session. Physical Therapy Plan Frequency and Duration Frequency of Treatment 1x/Week Duration of treatment (weeks) 6 Plan of Care Start Date 10/22/24 Plan of Care End Date 12/03/24 Next Visit Focus/Plan Next Note Type Treatment Note Next Visit Plan balance exercises, review HEP, hurdles, balance board, balloon volley, Keep HEP small . shorter visits for insurance limits DC in 2 sessions
--- NOTE | 2024-11-09 15:55 | PT.OTN ---
Current Diagnoses Epilepsy, unspecified, not intractable, with status epilepticus (11/09/24) Other abnormalities of gait and mobility (11/09/24) Weakness (11/09/24) Personal history of other diseases of the nervous system and sense organs (11/09/24) Physical Therapy Treatment Note PT-OP-A Visit Information Start: 08/13/24 16:32 Freq: Status: Active Protocol: Document 11/09/24 15:39 [facility] (Rec: 11/09/24 15:52 [facility] [id number]) Out-Patient Physical Therapy Visit Information Visit Information Visit Type Treatment Note Visit Start Time 15:21 Visit Stop Time 15:54 Visit Number 11 Number of 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 Neurologist Variable. Had a fall in [facility] day after so dad helping her around house more. Fell again more recently but doesn't know what caused it. Doesn't go for walks like she used to d/t friend moving away. Has help with everything right now. It has been more hard for her since the 3 seizures so gets more help. She gets help from dad and roommate. hx of 2 brain sx with prior PT that helps improve mobility at the time. Has been feeling tired Treatment Goals Patient/Caregiver Goals Feel stronger to go for walks. dec falls PT-OP-C Subjective Start: 08/13/24 16:32 Freq: Status: Active Protocol: Document 11/09/24 15:39 [facility] (Rec: 11/09/24 15:52 [facility] [id number]) OP-PT Subjective Patient Comments Patient Comments pt reports she just finished OT. She is tired PT-OP-D Balance Start: 08/13/24 16:32 Freq: Status: Active Protocol: Document 10/22/24 14:47 [facility] (Rec: 10/22/24 15:17 [facility] [id number]) Balance Tests Shea Balance Test Shea Balance Test Score 47 PT-OP-E Functional Tests Start: 08/13/24 16:32 Freq: Status: Active Protocol: Document 10/22/24 14:47 [facility] (Rec: 10/22/24 15:17 [facility] [id number]) Functional Tests 6 Minute Walk Test Distance 688ft Device Used no AD 30 Second Sit to Stand Test Score 8 Dynamic Gait Index (DGI) Score 16 PT-OP-G Mobility & Gait Start: 08/13/24 16:32 Freq: Status: Active Protocol: Document 08/27/24 14:37 [facility] (Rec[facility] 08/27/24 16[id number] Gait Assessment Comments Gait Comments No AD lat lean w/WB on LLE w/ dec LLE clearance >R, dec LLE stance time, slow PT-OP-Q Treatments Start: 08/13/24 16:32 Freq: Status: Active Protocol: Document 11/09/24 15:39 [facility] (Rec: 11/09/24 15:52 [id number] Therapeutic Exercises Sitting Exercises LAQ Side bilateral Equipment Used L2 at ankles Reps/Minutes 15 Comments cues keep other leg down and full ROM hip add Side bilateral Equipment Used ball Reps/Minutes 5 sec hold 2x10 AROM DF Side bilateral Reps/Minutes 15 Comments PT assisted to go up initially and VC max seated hip abd with band Sitting Exercise Name HEP Side bilateral Resistance Level 2 Reps/Minutes X12 then one minutes X 1 Comments cues and encouragement LLE use Standing Exercises resisted walk Standing Exercise Name fwd/back Side bilateral Resistance lvl 2 at ankles Reps/Minutes 10ft x2 ea sit to stands Side bilateral Reps/Minutes 15 side stepping with band Side bilateral Resistance level 2 band at ankles Reps/Minutes 2x10ft Comments cues for lat motion and ft fwd Neuro Re-Education Treatment Balance Activities [place] Comments 10ftx2 ea-cues for movement pattern hurdles Details rail prn Equipment 6 hurdles Comments reciprocal x8 sidestep x2 B kick ball Details CGA kicking w/aide Reps/Duration 2 min Comments cues lg kick PT-OP-T Assessment and Plan Start: 08/13/24 16:32 Freq: Status: Active Protocol: Document 11/09/24 15:39 [facility] (Rec: 11/09/24 15:52 [facility] [id number]) Physical Therapy Assessment Goals 6 min walk Impairment 556ft Short Term Goal (STG) Pt will show dec fall risk w/ inc gait speed w/ability to walk 700ft in 6 min STG Duration achieved to 720 ft 09/22 Halfway Goal (LTG) Pt will show dec fall risk w/ inc gait speed w/ability to walk 900ft in 6 min 10/22-688ft LTG Duration 12/03 DGI Impairment 10 Short Term Goal (STG) Pt will have improved DGI to at least 14 to show dec fall risk. 09/22- improving STG Duration achieved to 16 Dietary Service Aide Goal (LTG) Pt will have improved DGI to at least 19 to show dec fall risk. 10/22- LTG Duration 12/03 sit to stand Impairment 5 in 30 sec Short Term Goal (STG) Pt will be able to do 7 sit to stands in 30 sec to show improved strength STG Duration achieved to 7 09/22 Dietary Service Aide Goal (LTG) Pt will be able to do 10 sit to stands in 30 sec to show improved strength 10/22-improving 8x LTG Duration 12/03 SHEA Impairment 36 Halfway Goal (LTG) Pt will improve score to at least 45 to demonstrate safe amb w/o AD and less likely to fall 09/22- LTG Duration achieved to 47 Assessment Summary Assessment Pt still requires cues throughout exercises for LLE use and dec UE use. Did better w/hurdles today and had improved clearance w/less rail use. Physical Therapy Plan Frequency and Duration Frequency of Treatment 1x/Week Duration of treatment (weeks) 6 Plan of Care Start Date 10/22/24 Plan of Care End Date 12/03/24 Next Visit Focus/Plan Next Note Type Discharge Summary Next Visit Plan balance exercises, review HEP, hurdles, balance board, balloon volley, Keep HEP small . shorter visits for insurance limits
--- NOTE | 2024-11-16 16:13 | PT.OTN ---
Current Diagnoses Epilepsy, unspecified, not intractable, with status epilepticus (11/16/24) Other abnormalities of gait and mobility (11/16/24) Weakness (11/16/24) Personal history of other diseases of the nervous system and sense organs (11/16/24) Physical Therapy Treatment Note PT-OP-A Visit Information Start: 08/13/24 16:32 Freq: Status: Active Protocol: Document 11/16/24 15:29 [facility] (Rec: 11/16/24 15:59 [facility] [id number]) Out-Patient Physical Therapy Visit Information Visit Information Visit Type Discharge Summary Visit Start Time 15:32 Visit Stop Time 16:00 Visit Number 12 Number of WO[employer] Visits 0 PT-OP-B Current Condition Start: 08/13/24 16:32 Freq: Status: Active Protocol: Document 08/27/24 14:37 [facility] (Rec: 08/27/24 16:17 [facility] [id number]) Current Condition History of Current Condition Current Complaints weakness, falls History of Current Condition Pt had 3 seizures last month in 1 day after a day of walking [place]. Neurologist [employer]. Had a fall in [facility] day after so dad helping her around house more. Fell again more recently but doesn't know what caused it. Doesn't go for walks like she used to d/t friend moving away. Has help with everything right now. It has been more hard for her since the 3 seizures so gets more help. She gets help from dad and roommate. hx of 2 brain sx with prior PT that helps improve mobility at the time. Has been feeling tired Treatment Goals Patient/Caregiver Goals Feel stronger to go for walks. dec falls PT-OP-C Subjective Start: 08/13/24 16:32 Freq: Status: Active Protocol: Document 11/16/24 15:29 [facility] (Rec: 11/16/24 15:59 [facility] [id number]) OP-PT Subjective Patient Comments Patient Comments pt reports she just woke up. PT-OP-D Balance Start: 08/13/24 16:32 Freq: Status: Active Protocol: Document 10/22/24 14:47 [facility] (Rec: 10/22/24 15:17 [facility] [id number]) Balance Tests Shea Balance Test Shea Balance Test Score 47 PT-OP-E Functional Tests Start: 08/13/24 16:32 Freq: Status: Active Protocol: Document 11/16/24 15:29 [facility] (Rec: 11/16/24 15:59 [facility] [id number]) Functional Tests 6 Minute Walk Test Distance 729 30 Second Sit to Stand Test Score 9 Dynamic Gait Index (DGI) Score 14 PT-OP-G Mobility & Gait Start: 08/13/24 16:32 Freq: Status: Active Protocol: Document 08/27/24 14:37 [facility] (Rec: 08/27/24 16:17 [facility] [id number]) OP Gait Assessment Comments Gait Comments No AD lat lean w/WB on LLE w/ dec LLE clearance >R, dec LLE stance time, slow PT-OP-Q Treatments Start: 08/13/24 16:32 Freq: Status: Active Protocol: Document 11/16/24 15:29 [facility] (Rec: 11/16/24 15:59 [facility] [id number]) Therapeutic Exercises Sitting Exercises marches Side bilateral Reps/Minutes 15 ea Comments cues height LAQ Side bilateral Reps/Minutes 15 Comments cues keep other leg down and full ROM hip add Side bilateral Equipment Used ball Reps/Minutes 5 sec hold x15 AROM DF Side bilateral Reps/Minutes 15 Comments PT assisted to go up initially and VC max seated hip abd with band Sitting Exercise Name HEP Side bilateral Resistance Level 2 Reps/Minutes 15 Comments cues and encouragement LLE use Standing Exercises sit to stands Side bilateral Reps/Minutes 30 sec Other Exercises 6 min walk test Other Exercise Name CGA Neuro Re-Education Treatment Balance Activities testing Comments DGI PT-OP-T Assessment and Plan Start: 08/13/24 16:32 Freq: Status: Active Protocol: Document 11/16/24 15:29 [facility] (Rec: 11/16/24 15:59 [facility] [id number]) Physical Therapy Assessment Goals 6 min walk Impairment 556ft Short Term Goal (STG) Pt will show dec fall risk w/ inc gait speed w/ability to walk 700ft in 6 min STG Duration achieved to 720 ft 09/22 Forensic Manager Goal (LTG) Pt will show dec fall risk w/ inc gait speed w/ability to walk 900ft in 6 min 10/22-688ft 11/16-729ft LTG Duration 12/03 DGI Impairment 10 Short Term Goal (STG) Pt will have improved DGI to at least 14 to show dec fall risk. 09/22- improving STG Duration achieved to 16 Forensic Manager Goal (LTG) Pt will have improved DGI to at least 19 to show dec fall risk. 10/22-11/16-14 LTG Duration 12/03 sit to stand Impairment 5 in 30 sec Short Term Goal (STG) Pt will be able to do 7 sit to stands in 30 sec to show improved strength STG Duration achieved to 7 09/22 Forensic Manager Goal (LTG) Pt will be able to do 10 sit to stands in 30 sec to show improved strength 10/22-improving 8x 11/16-9x LTG Duration 12/03 SHEA Impairment 36 Detention Goal (LTG) Pt will improve score to at least 45 to demonstrate safe amb w/o AD and less likely to fall 09/22- LTG Duration achieved to 47 Assessment Summary Assessment Pt has plateaued in progress at this time based on testing. She has made limited progress since last PN. She has HEP but is not compliant w/HEP for home. She is dc d/t no longer making progress and d/t insurance limitations. She was given new handout for HEP today. Physical Therapy Plan Discharge Physical Therapy Discharge Reasons Plateau in Progress
== END 2024-11-19 09:55 | disposition home or self-care (01) ==
LOC: PHYS 15:15
PROVIDERS: Family Provider Family Medicine; PCP Family Medicine; Referring Provider Family Medicine; Visit Provider Family Medicine
DX: Z86.69 Personal history of other diseases of the nervous system and sense organs (principal); G40.901 Epilepsy, unspecified, not intractable, with status epilepticus; R53.1 Weakness; R26.89 Other abnormalities of gait and mobility
CPT/HCPCS: 97110; 97112; 97140; 97163

== ENCOUNTER 2025-01-12 12:54 | Emergency (ER) | payer OTHER, SELFPAY ==
[2025-01-12] VITALS (24 sets, daily range): BP systolic 117–151; BP diastolic 72–90; PULSE 100–119; RESP 20–31; TEMP 36.6–36.7; O2SAT 96–100
--- NOTE | 2025-01-12 13:01 | ED_ITS ---
HPI - General Adult <Chely Ly MD - Last Filed: 01/14/25 00:03> General Chief complaint: Seizure Stated complaint: Says had a seziure now Time Seen by Provider: 01/12/25 13:00 History of Present Illness HPI narrative: 24-year-old woman with a history of seizures since an infection at 18 months with 2 prior brain surgeries to try and minimize seizure activity. One surgery was at [facility] which did not seem to be all ineffective. She had a 2nd surgery at [facility] 5-6 years ago according to her father and went 3 years without any type of seizure. She had a, selective mutism, currently on Keppra 750 mg daily, oxcarbazepine XR 600 mg daily brought in by her father with a grand mal seizure noted this morning. He is concerned that she is still seizing. He is very clear that she has been taking your medications as prescribed, she did start a new day camp yesterday and was outside in the sun quite a bit. This was a new event for her. Last seizure was in July of 2024 with similar unusual activity the day prior. Father states she has been in her usual baseline self until the seizure this morning. He describes her as ?normal? able to carry on a conversation was at least him when she is not seizing. She has some baseline left-sided weakness. Does not describe recent fevers or chills Related Data Previous Rx's ?Medication ?Instructions ?Recorded valacyclovir 1 gram tablet See Rx Instructions .Route 08/16/22 .COMPLEX #28 tabs diazepam 5 mg-7.5 mg-10 mg rectal 5 mg [place] Q6H PRN seiz ure activity 2 11/23/22 kit (Diastat AcuDial) doses #1 ea cholecalciferol (vitamin D3) 25 25 mcg PO DAILY #90 ca ps 12/18/22 mcg (1,000 unit) capsule Parking Permit... #1 ea 01/14/23 loratadine 10 mg tablet (Claritin) 10 mg PO DAILY #30 tabs 07/24/23 diazepam 5 mg/spray (0.1 mL) nasal 5 mg (0.1 mL) intra nasal .prn PRN 09/17/23 spray seizure activity #2 sprays venlafaxine 75 mg capsule,extended See Rx Instructions PO BEDTIME 12/19/23 release 24 hr (Effexor XR) #180 caps nystatin 100,000 unit/gram topical 1 applic topical BI D #30 grams 01/07/24 powder oxcarbazepine 600 mg 1,200 mg (2 x 600 mg) PO BED TIME 01/29/24 tablet,extended release 24 hr #180 tabs (Oxtellar XR) levetiracetam 750 mg tablet 750 mg PO BID #60 tabs 09/29 (Keppra) oxcarbazepine 150 mg tablet 150 mg PO DAILY #30 tabs 0 07/10/24 Allergies Allergy/AdvReac Type Severity Reaction Status Date / Time No Known Drug Allergies Allergy Verified 10/19/24 15:10 Review of Systems <Chely Ly MD - Last Filed: 01/14/25 00:03> Review of Systems Narrative: Pertinent positive and negative findings as per HPI Patient History <Chely Ly MD - Last Filed: 01/14/25 00:03> Medical History (Updated 01/12/25 @ 22:30 by Christiano Cabrera DO) Seizure disorder (08/24/14) Bilateral hand pain Viral URI with cough History of nephrolithiasis Acute left flank pain FHx: BRCA2 gene positive FH: breast cancer in first degree relative when <50 years old Hand dysfunction Decreased mobility Dysuria IT band syndrome Mixed incontinence urge and stress Insomnia disorder with non-sleep disorder mental comorbidity Fatigue due to depression Anxiety and depression Selective mutism as adjustment reaction Seizure disorder Surgical History (Updated 07/26/24 @ 00:00 by ) H/O brain surgery Family History Mother Cancer Grandmother BRCA2 gene mutation positive Family/Other BRCA2 gene mutation positive Exam <Chely Ly MD - Last Filed: 01/14/25 00:03> Initial Vital Signs Initial Vital Signs: Vital Signs Pulse Rate 119 H 01/12/25 13:13 Blood Pressure 140/90 01/12/25 13:13 Pulse Oximetry 100 01/12/25 13:13 General: Appears chronically unwell, initial only having facial tic and left hand rhythmic movement that resolved with IV Versed HEENT: Moist mucous membranes, normal sclera with reactive pupils, no trauma to the head Respiratory: Lungs are clear to auscultation, no wheezing no rales no rhonchi. Full and symmetrical air movement after the initial seizure stopped Cardiac: Tachycardic but otherwise Regular rate and rhythm no murmurs Abdomen: Soft, nontender, no rebound or guarding, no flank pain Skin: Mild diaphoresis, slightly flushed face, no significant bruising Neurologic: Initially seizing, after that resolves slightly postictal but responding to yes and no questions with hand squeezing and trying to be cooperative Extremities: No trauma, well perfused Psych: Postictal, baseline is selective mutism <Christiano Cabrera DO - Last Filed: 01/13/25 01:46> Initial Vital Signs Initial Vital Signs: Vital Signs Pulse Rate 119 H 01/12/25 13:13 Blood Pressure 140/90 01/12/25 13:13 Pulse Oximetry 100 01/12/25 13:13 Course <Chely Ly MD - Last Filed: 01/14/25 00:03> Orders Ordered: Discontinued Medications Levetiracetam 1,000 mg/ Sodium (Chloride) 110 mls @ 440 mls/hr IV NOW ONE Stop: 01/12/25 13:05 Last Infusion: 01/12/25 13:57 Dose: Infused Documented By: Admin: 01/12/25 13:35 Dose: 440 mls/hr Documented By: ABELARDO Sodium Chloride (Normal Saline 0.9%) 1,000 mls @ 1,000 mls/hr IV BOLUS ONE Stop: 01/12/25 17:20 Last Infusion: 01/12/25 17:15 Dose: Infused Documented By: Admin: 01/12/25 16:35 Dose: 1,000 mls/hr Documented By: RICK Levetiracetam 2,000 mg/ Sodium (Chloride) 120 mls @ 480 mls/hr IV NOW ONE Stop: 01/12/25 18:43 Last Infusion: 01/12/25 19:26 Dose: Infused Documented By: Admin: 01/12/25 19:00 Dose: 480 mls/hr Documented By: RICK Valproic Acid 3,000 mg/ (Dextrose) 80 mls @ 80 mls/hr IV NOW ONE Stop: 01/12/25 20:52 Last Infusion: 01/12/25 23:08 Dose: Infused Documented By: Admin: 01/12/25 21:51 Dose: 80 mls/hr Documented By: RICK Acetaminophen (Ofirmev) 1,000 mg in 100 mls @ 400 mls/hr IV NOW ONE Stop: 01/12/25 23:39 Last Infusion: 01/12/25 23:36 Dose: Infused Documented By: Admin: 01/12/25 23:31 Dose: 400 mls/hr Documented By: ESTRELLITA Ketorolac Tromethamine (Ketorolac 30 Mg/Ml Vial) 15 mg IV NOW ONE Stop: 01/12/25 15:20 Last Admin: 01/12/25 15:46 Dose: 15 mg Documented By: RICK Midazolam HCl (Midazolam 2 Mg/2 Ml Vial) 4 mg IV NOW ONE Stop: 01/12/25 13:16 Last Admin: 01/12/25 13:36 Dose: 4 mg Documented By: ABELARDO Midazolam HCl (Midazolam 2 Mg/2 Ml Vial) 4 mg IV NOW ONE Stop: 01/12/25 17:31 Last Admin: 01/12/25 17:24 Dose: 4 mg Documented By: RICK Midazolam HCl (Midazolam 2 Mg/2 Ml Vial) 4 mg IV NOW ONE Stop: 01/12/25 17:53 Last Admin: 01/12/25 17:58 Dose: 4 mg Documented By: RICK Midazolam HCl (Midazolam 5 Mg/Ml Vial) 4 mg IV NOW ONE Stop: 01/12/25 19:43 Last Admin: 01/12/25 20:03 Dose: 4 mg Documented By: RICK Oxcarbazepine (Oxcarbazepine 150 Mg Tablet) 600 mg PO BID [facility] Oxcarbazepine (Oxcarbazepine 150 Mg Tablet) 600 mg PO BID [facility] Vital Signs Vital signs: Vital Signs - 8 hr 01/12/25 18:00 01/12/25 18:00 01/12/25 18:30 Temperature Pulse Rate 117 H Respiratory Rate 22 Blood Pressure 140/80 132/73 Pulse Oximetry 99 Oxygen Delivery Method Room Air Oxygen Flow Rate 01/12/25 18:30 01/12/25 19:00 01/12/25 19:00 Temperature Pulse Rate 110 H 117 H Respiratory Rate Blood Pressure 133/80 Pulse Oximetry 97 100 Oxygen Delivery Method Oxygen Flow Rate 01/12/25 19:30 01/12/25 19:30 01/12/25 20:00 Temperature Pulse Rate 114 H 117 H Respiratory Rate 22 22 Blood Pressure 139/84 Pulse Oximetry 98 98 Oxygen Delivery Method Room Air Room Air Oxygen Flow Rate 2 01/12/25 20:00 01/12/25 20:30 01/12/25 20:30 Temperature Pulse Rate 113 H Respiratory Rate Blood Pressure 134/89 124/83 Pulse Oximetry 97 Oxygen Delivery Method Oxygen Flow Rate 01/12/25 21:00 01/12/25 21:00 01/12/25 21:25 Temperature 97.8 F Pulse Rate 113 H Respiratory Rate 22 Blood Pressure 130/82 Pulse Oximetry 97 Oxygen Delivery Method Oxygen Flow Rate 01/12/25 21:30 01/12/25 21:30 01/12/25 22:00 Temperature Pulse Rate 112 H 110 H Respiratory Rate Blood Pressure 128/80 Pulse Oximetry 97 96 Oxygen Delivery Method Oxygen Flow Rate 01/12/25 22:00 01/12/25 22:30 01/12/25 22:30 Temperature Pulse Rate 113 H Respiratory Rate 20 Blood Pressure 117/72 119/75 Pulse Oximetry 97 Oxygen Delivery Method Oxygen Flow Rate 01/12/25 23:00 01/12/25 23:30 01/12/25 23:30 Temperature Pulse Rate 114 H 109 H Respiratory Rate 31 H 26 H Blood Pressure 121/79 Pulse Oximetry 96 97 Oxygen Delivery Method Oxygen Flow Rate 01/13/25 00:00 01/13/25 00:00 01/13/25 00:30 Temperature Pulse Rate 110 H Respiratory Rate 22 Blood Pressure 122/77 127/73 Pulse Oximetry 97 Oxygen Delivery Method Oxygen Flow Rate 01/13/25 00:30 Temperature Pulse Rate 107 H Respiratory Rate 28 H Blood Pressure Pulse Oximetry 95 Oxygen Delivery Method Oxygen Flow Rate <Christiano Cabrera DO - Last Filed: 01/13/25 01:46> Orders Ordered: Discontinued Medications Levetiracetam 1,000 mg/ Sodium (Chloride) 110 mls @ 440 mls/hr IV NOW ONE Stop: 01/12/25 13:05 Last Infusion: 01/12/25 13:57 Dose: Infused Documented By: Admin: 01/12/25 13:35 Dose: 440 mls/hr Documented By: [facility] Sodium Chloride (Normal Saline 0.9%) 1,000 mls @ 1,000 mls/hr IV BOLUS ONE Stop: 01/12/25 17:20 Last Infusion: 01/12/25 17:15 Dose: Infused Documented By: Admin: 01/12/25 16:35 Dose: 1,000 mls/hr Documented By: RICK Levetiracetam 2,000 mg/ Sodium (Chloride) 120 mls @ 480 mls/hr IV NOW ONE Stop: 01/12/25 18:43 Last Infusion: 01/12/25 19:26 Dose: Infused Documented By: Admin: 01/12/25 19:00 Dose: 480 mls/hr Documented By: RICK Valproic Acid 3,000 mg/ (Dextrose) 80 mls @ 80 mls/hr IV NOW ONE Stop: 01/12/25 20:52 Last Infusion: 01/12/25 23:08 Dose: Infused Documented By: Admin: 01/12/25 21:51 Dose: 80 mls/hr Documented By: RICK Acetaminophen (Ofirmev) 1,000 mg in 100 mls @ 400 mls/hr IV NOW ONE Stop: 01/12/25 23:39 Last Infusion: 01/12/25 23:36 Dose: Infused Documented By: Admin: 01/12/25 23:31 Dose: 400 mls/hr Documented By: ESTRELLITA Ketorolac Tromethamine (Ketorolac 30 Mg/Ml Vial) 15 mg IV NOW ONE Stop: 01/12/25 15:20 Last Admin: 01/12/25 15:46 Dose: 15 mg Documented By: RICK Midazolam HCl (Midazolam 2 Mg/2 Ml Vial) 4 mg IV NOW ONE Stop: 01/12/25 13:16 Last Admin: 01/12/25 13:36 Dose: 4 mg Documented By: ABELARDO Midazolam HCl (Midazolam 2 Mg/2 Ml Vial) 4 mg IV NOW ONE Stop: 01/12/25 17:31 Last Admin: 01/12/25 17:24 Dose: 4 mg Documented By: RICK Midazolam HCl (Midazolam 2 Mg/2 Ml Vial) 4 mg IV NOW ONE Stop: 01/12/25 17:53 Last Admin: 01/12/25 17:58 Dose: 4 mg Documented By: RICK Midazolam HCl (Midazolam 5 Mg/Ml Vial) 4 mg IV NOW ONE Stop: 01/12/25 19:43 Last Admin: 01/12/25 20:03 Dose: 4 mg Documented By: RICK Oxcarbazepine (Oxcarbazepine 150 Mg Tablet) 600 mg PO BID [facility] Oxcarbazepine (Oxcarbazepine 150 Mg Tablet) 600 mg PO BID [facility] Vital Signs Vital signs: Vital Signs - 8 hr 01/12/25 18:00 01/12/25 18:00 01/12/25 18:30 Temperature Pulse Rate 117 H Respiratory Rate 22 Blood Pressure 140/80 132/73 Pulse Oximetry 99 Oxygen Delivery Method Room Air Oxygen Flow Rate 01/12/25 18:30 01/12/25 19:00 01/12/25 19:00 Temperature Pulse Rate 110 H 117 H Respiratory Rate Blood Pressure 133/80 Pulse Oximetry 97 100 Oxygen Delivery Method Oxygen Flow Rate 01/12/25 19:30 01/12/25 19:30 01/12/25 20:00 Temperature Pulse Rate 114 H 117 H Respiratory Rate 22 22 Blood Pressure 139/84 Pulse Oximetry 98 98 Oxygen Delivery Method Room Air Room Air Oxygen Flow Rate 2 01/12/25 20:00 01/12/25 20:30 01/12/25 20:30 Temperature Pulse Rate 113 H Respiratory Rate Blood Pressure 134/89 124/83 Pulse Oximetry 97 Oxygen Delivery Method Oxygen Flow Rate 01/12/25 21:00 01/12/25 21:00 01/12/25 21:25 Temperature 97.8 F Pulse Rate 113 H Respiratory Rate 22 Blood Pressure 130/82 Pulse Oximetry 97 Oxygen Delivery Method Oxygen Flow Rate 01/12/25 21:30 01/12/25 21:30 01/12/25 22:00 Temperature Pulse Rate 112 H 110 H Respiratory Rate Blood Pressure 128/80 Pulse Oximetry 97 96 Oxygen Delivery Method Oxygen Flow Rate 01/12/25 22:00 01/12/25 22:30 01/12/25 22:30 Temperature Pulse Rate 113 H Respiratory Rate 20 Blood Pressure 117/72 119/75 Pulse Oximetry 97 Oxygen Delivery Method Oxygen Flow Rate 01/12/25 23:00 01/12/25 23:30 01/12/25 23:30 Temperature Pulse Rate 114 H 109 H Respiratory Rate 31 H 26 H Blood Pressure 121/79 Pulse Oximetry 96 97 Oxygen Delivery Method Oxygen Flow Rate 01/13/25 00:00 01/13/25 00:00 01/13/25 00:30 Temperature Pulse Rate 110 H Respiratory Rate 22 Blood Pressure 122/77 127/73 Pulse Oximetry 97 Oxygen Delivery Method Oxygen Flow Rate 01/13/25 00:30 Temperature Pulse Rate 107 H Respiratory Rate 28 H Blood Pressure Pulse Oximetry 95 Oxygen Delivery Method Oxygen Flow Rate Medical Decision Making <Chely Ly MD - Last Filed: 01/14/25 00:03> Lab Data 01/12/25 15:40 01/12/25 13:06 Labs: Lab Results 01/12/25 01/12/25 Range/Units 13:06 15:40 WBC 19.1 H 16.4 H (4.5-11.0) X10^3/uL RBC 5.02 4.67 (4.0-5.2) X10^6/uL Hgb 14.1 13.1 (12.0-16.0) g/dL Hct 42.2 39.1 (36-46) % MCV 83.9 83.6 (80-100) fL MCH 28.2 28.1 (26-34) PG MCHC 33.6 33.6 (30-36) % RDW 14.3 13.9 (11.6-14.8) % Plt Count 365 329 (150-400) X10^3/uL Neut % (Auto) 90.9 H 87.1 H (50-75) % Lymph % (Auto) 5.9 L 8.4 L (25-40) % Scott % (Auto) 3.1 4.0 (3-14) % Eos % (Auto) 0.0 L 0.1 L (2-4) % Baso % (Auto) 0.1 0.4 (0-2) % Neut # (Auto) 26242 H 30452 H (2662-7565) /uL Lymph # (Auto) 1100 1400 (6934-0208) /uL Scott # (Auto) 600 700 (0-900) /uL Eos # (Auto) 0 0 (0-450) /uL Baso # (Auto) 0 100 (0-100) /uL Sodium 138 (137-145) mmol/L Potassium 4.2 (3.4-5.1) mmol/L Chloride 108 H (98-107) mmol/L Carbon Dioxide 18 L (22-32) mmol/L BUN 9 (7-17) mg/dL Creatinine 0.67 (0.52-1.04) mg/dL Estimated GFR > 60 (>60) mL/min BUN/Creatinine Ratio 13.4 (6-22) Glucose 135 H (70-99) mg/dL Calcium 9.3 (8.4-10.2) mg/dL Total Bilirubin 0.6 (0.2-1.3) mg/dL AST 61 H (14-36) IU/L ALT 43 H (<35) IU/L Alkaline Phosphatase 79 (38-126) U/L Total Protein 8.4 H (6.3-8.2) g/dL Albumin 4.9 (3.5-5.0) g/dL Globulin 3.5 (1.7-4.1) g/dL Albumin/Globulin Ratio 1.4 (1.0-2.8) Point of Care Testing Test Results Negative Urine Dip Bedside Urine Glucose Negative Bedside Urine Bilirubin + 1 Bedside Urine Ketone ++ 40 Urine Specific [place] 1.015 Bedside Urine Occult Blood - Negative Bedside Urine pH 6.5 Bedside Urine Protein +/- 15 Bedside Urine Urobilinogen - Negative Bedside Urine Nitrite - Negative Bedside Urine Leukocytes - Negative Esterase Point of care testing: Point of Care Testing Test Results Negative Urine Dip Bedside Urine Glucose Negative Bedside Urine Bilirubin + 1 Bedside Urine Ketone ++ 40 Urine Specific [place] 1.015 Bedside Urine Occult Blood - Negative Bedside Urine pH 6.5 Bedside Urine Protein +/- 15 Bedside Urine Urobilinogen - Negative Bedside Urine Nitrite - Negative Bedside Urine Leukocytes - Negative Esterase MDM Narrative Medical decision making narrative: CC: Grand mal seizure this morning Complicating co-morbidities: To prior brain surgeries, history of grand mal seizures Data collected from: patient, father Social determinants of health that may influence the patients condition: Developmental delay, selective mutism Medical records reviewed: Urology consult notes from September 28, 2024 are reviewed Differential considered: Seizure, electrolyte abnormality, infection Exam documented above, pertinent findings include: Patient was still having facial tics and left hand tics on arrival. She was not hyperreflexic in the lower extremities. Heart and lungs are benign Lab Test results independently reviewed as above. Pertinent findings: CBC shows leukocytosis at 19.1 with significant left shift. Metabolic panel shows minimally elevated AST and ALT. Renal function is appropriate, with remainder of electrolytes are unremarkable Urine does not suggest UTI Patient is not Imaging studies independently reviewed: Most recent brain imaging is August 17, 2024 brain MRI IMPRESSION: Prior resection change can be seen on the right-side. Generalized brain parenchymal volume loss can be seen throughout the right cerebral hemisphere, with associated mild extra-axial fluid on the right and 2 mm midline shift. No masses or abnormal enhancement can be seen. Consultations: Spoke with the [facility] neurologist, . His recommendation was to add 2 additional g of IV Keppra, see if we can get her to take her oral oxcarbazepine and further evaluate. If the partial seizures are improving then he recommended discharge home. Discussed possibly with the addition of clonazepam as a long-acting antiseizure medication to complement the current carbamazepine and Keppra that she is taking with close outpatient follow up. Treatments: On arrival, patient was seizing, facial twitching and left hand twitching. She was given 4 mg of IV Versed. Twitching has stopped and she is able to communicate with squeezing my hand to yes or no questions Re-evaluations: 4:20 p.m.. Patient is re-evaluated in abdomen is repalpated. She seems to indicate through hand squeezing that she is not experiencing any pain in any of the quadrants of her belly when I palpate. She does continue to have facial tic in the left arm tick that is not the same as the seizure-type activity when she initially got here. white count was elevated, Initially felt to be simply demargination secondary to her seizure. Is checked 2-1/2 hours later and is still elevated at 16.4 with the 7% neutrophils. Concern for infection as an underlying trigger for her seizure continues. 515 pt is re-evaluated. Again seems to be having the partial seizure with the facial twitching in the left arm twitching noticed initially on arrival. She is given another 4 mg of IV Versed which seemed to be effective initially Discussion: 24-year-old woman post 2 brain surgeries, selective mutism, change to routine yesterday which has been a trigger for seizures before with grand mal seizure and then localized facial seizure on around the in the emergency department. She is given Versed and an extra g of Keppra. Her dad states she is actually taking medications. She did have a leukocytosis that I do not have a complete explanation for but on Re exam does not appear to be due to pain in her belly, her lungs are completely clear, her urine does not suggest a bladder infection, I do not see skin changes that would suggest a cellulitis. She is still slightly tachycardic we will give her another L of fluid and discuss her overall presentation and behavior with her father to see how close to her baseline she actually is. 630pm patient seemed to have a break in the partial seizure activity and has a again restarted. She is given an additional 4 mg of Versed. Care is discussed with the [facility] neurology service. She will be given additional Keppra, oxcarbazepine. If symptoms have abated maybe safe for discharge home, if she moves on to have grand mal seizures may need intubation and propofol an obvious transfer at that point. If she is able to go home he discussed the possibility of adding clonazepam to her current regimen until she is able to get into see neurologist within the next couple of days. Care is turned over to Dr. Gomez change of shift. 1899: Patient was signed out to me by Dr. ly, patient is a 24-year-old female with a past medical history of seizures, with remote history of brain surgery several years ago at [facility] presenting for possible seizure-like activity. 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 Lab work only consistent with a slight elevation in leukocytosis possibly reactive secondary to seizures, patient has been compliant with her anti epileptics, 750 mg b.i.d. Keppra, oxcarbazepine meeting 150 mg q.d., call out has been placed to [facility] neurology to discuss further recommendations/workup given possible status epilepticus, however currently patient back to baseline no seizure like activity <Christiano Cabrera, DO - Last Filed: 01/13/25 01:46> Lab Data Labs: Lab Results 01/12/25 01/12/25 Range/Units 13:06 15:40 WBC 19.1 H 16.4 H (4.5-11.0) X10^3/uL RBC 5.02 4.67 (4.0-5.2) X10^6/uL Hgb 14.1 13.1 (12.0-16.0) g/dL Hct 42.2 39.1 (36-46) % MCV 83.9 83.6 (80-100) fL MCH 28.2 28.1 (26-34) PG MCHC 33.6 33.6 (30-36) % RDW 14.3 13.9 (11.6-14.8) % Plt Count 365 329 (150-400) X10^3/uL Neut % (Auto) 90.9 H 87.1 H (50-75) % Lymph % (Auto) 5.9 L 8.4 L (25-40) % Scott % (Auto) 3.1 4.0 (3-14) % Eos % (Auto) 0.0 L 0.1 L (2-4) % Baso % (Auto) 0.1 0.4 (0-2) % Neut # (Auto) 40843 H 21571 H (2370-8571) /uL Lymph # (Auto) 1100 1400 (6534-8877) /uL Scott # (Auto) 600 700 (0-900) /uL Eos # (Auto) 0 0 (0-450) /uL Baso # (Auto) 0 100 (0-100) /uL Sodium 138 (137-145) mmol/L Potassium 4.2 (3.4-5.1) mmol/L Chloride 108 H (98-107) mmol/L Carbon Dioxide 18 L (22-32) mmol/L BUN 9 (7-17) mg/dL Creatinine 0.67 (0.52-1.04) mg/dL Estimated GFR > 60 (>60) mL/min BUN/Creatinine Ratio 13.4 (6-22) Glucose 135 H (70-99) mg/dL Calcium 9.3 (8.4-10.2) mg/dL Total Bilirubin 0.6 (0.2-1.3) mg/dL AST 61 H (14-36) IU/L ALT 43 H (<35) IU/L Alkaline Phosphatase 79 (38-126) U/L Total Protein 8.4 H (6.3-8.2) g/dL Albumin 4.9 (3.5-5.0) g/dL Globulin 3.5 (1.7-4.1) g/dL Albumin/Globulin Ratio 1.4 (1.0-2.8) Point of Care Testing Test Results Negative Urine Dip Bedside Urine Glucose Negative Bedside Urine Bilirubin + 1 Bedside Urine Ketone ++ 40 Urine Specific [place] 1.015 Bedside Urine Occult Blood - Negative Bedside Urine pH 6.5 Bedside Urine Protein +/- 15 Bedside Urine Urobilinogen - Negative Bedside Urine Nitrite - Negative Bedside Urine Leukocytes - Negative Esterase Point of care testing: Point of Care Testing Test Results Negative Urine Dip Bedside Urine Glucose Negative Bedside Urine Bilirubin + 1 Bedside Urine Ketone ++ 40 Urine Specific [place] 1.015 Bedside Urine Occult Blood - Negative Bedside Urine pH 6.5 Bedside Urine Protein +/- 15 Bedside Urine Urobilinogen - Negative Bedside Urine Nitrite - Negative Bedside Urine Leukocytes - Negative Esterase MDM Narrative Medical decision making narrative: CC: Grand mal seizure this morning Complicating co-morbidities: To prior brain surgeries, history of grand mal seizures Data collected from: patient, father Social determinants of health that may influence the patients condition: Developmental delay, selective mutism Medical records reviewed: Urology consult notes from September 28, 2024 are reviewed Differential considered: Seizure, electrolyte abnormality, infection Exam documented above, pertinent findings include: Patient was still having facial tics and left hand tics on arrival. She was not hyperreflexic in the lower extremities. Heart and lungs are benign Lab Test results independently reviewed as above. Pertinent findings: CBC shows leukocytosis at 19.1 with significant left shift. Metabolic panel shows minimally elevated AST and ALT. Renal function is appropriate, with remainder of electrolytes are unremarkable Urine does not suggest UTI Patient is not Imaging studies independently reviewed: Most recent brain imaging is August 17, 2024 brain MRI IMPRESSION: Prior resection change can be seen on the right-side. Generalized brain parenchymal volume loss can be seen throughout the right cerebral hemisphere, with associated mild extra-axial fluid on the right and 2 mm midline shift. No masses or abnormal enhancement can be seen. Consultations: Spoke with the [facility] neurologist, . His recommendation was to add 2 additional g of IV Keppra, see if we can get her to take her oral oxcarbazepine and further evaluate. If the partial seizures are improving then he recommended discharge home. Discussed possibly with the addition of clonazepam as a long-acting antiseizure medication to complement the current carbamazepine and Keppra that she is taking with close outpatient follow up. Treatments: On arrival, patient was seizing, facial twitching and left hand twitching. She was given 4 mg of IV Versed. Twitching has stopped and she is able to communicate with squeezing my hand to yes or no questions Re-evaluations: 4:20 p.m.. Patient is re-evaluated in abdomen is repalpated. She seems to indicate through hand squeezing that she is not experiencing any pain in any of the quadrants of her belly when I palpate. She does continue to have facial tic in the left arm tick that is not the same as the seizure-type activity when she initially got here. white count was elevated, Initially felt to be simply demargination secondary to her seizure. Is checked 2-1/2 hours later and is still elevated at 16.4 with the 7% neutrophils. Concern for infection as an underlying trigger for her seizure continues. 515 pt is re-evaluated. Again seems to be having the partial seizure with the facial twitching in the left arm twitching noticed initially on arrival. She is given another 4 mg of IV Versed which seemed to be effective initially Discussion: 24-year-old woman post 2 brain surgeries, selective mutism, change to routine yesterday which has been a trigger for seizures before with grand mal seizure and then localized facial seizure on around the in the emergency department. She is given Versed and an extra g of Keppra. Her dad states she is actually taking medications. She did have a leukocytosis that I do not have a complete explanation for but on Re exam does not appear to be due to pain in her belly, her lungs are completely clear, her urine does not suggest a bladder infection, I do not see skin changes that would suggest a cellulitis. She is still slightly tachycardic we will give her another L of fluid and discuss her overall presentation and behavior with her father to see how close to her baseline she actually is. 630pm patient seemed to have a break in the partial seizure activity and has a again restarted. She is given an additional 4 mg of Versed. Care is discussed with the [facility] neurology service. She will be given additional Keppra, oxcarbazepine. If symptoms have abated maybe safe for discharge home, if she moves on to have grand mal seizures may need intubation and propofol an obvious transfer at that point. If she is able to go home he discussed the possibility of adding clonazepam to her current regimen until she is able to get into see neurologist within the next couple of days. Care is turned over to Dr. Gomez change of shift. 190: Patient was signed out to me by Dr. ly, patient is a 24-year-old female with a past medical history of seizures, with remote history of brain surgery several years ago at [facility] presenting for possible seizure-like activity. 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 Lab work only consistent with a slight elevation in leukocytosis possibly reactive secondary to seizures, patient has been compliant with her anti epileptics, 750 mg b.i.d. Keppra, oxcarbazepine meeting 150 mg q.d., call out has been placed to [facility] neurology to discuss further recommendations/workup given possible status epilepticus, however currently patient back to baseline no seizure like activity 1941: Patient was re-evaluated, patient is still having the facial twitching after administration of additional 2 g of IV Keppra, patient has now received a total of 4 g IV Versed, was a discussion with [facility] neurology that patient were to receive this medication and could potentially be discharged if complete resolution however given persistent symptoms additional 4 mg IV Versed ordered, we will reach out to [facility] again given persistent symptoms. 2002: Discussed case with Dr. Reinoso (Neurology at [facility]) states will review patient's chart and will call back, currently stating to withhold any Versed in the fact that it is not helping, no further recommendations at this time possible transfer for EEG 2044: Discused case with epilepsy specialist at , recs 40mg/kg Valproic acid and states if that doesnt work would rec transfer. 2212: Patient re-evaluated after 3 g of valproic acid, patient is still with what appears to be rhythmic motion of her face, we will reach out to [facility] for possible transfer at this time 7: Discussed case with Dr. Reinoso (neurology) accepts the admission and recommends transfer to the ED at [facility] further evaluation treatment Patient was evaluated prior to transfer, vital signs stable, safe for transfer to outside hospital Critical Care Time <Chely Ly MD - Last Filed: 01/14/25 00:03> Critical Care Time Critical Care Time: Yes Total Critical Care Time: 63 Attestation: Critical care time is separate from other billable procedures. There is a high probability of a significant, sudden or life-threatening deterioration that requires my full and direct attention, intervention and personal management. This critical care time includes consultation with family and other consulting doctors, review of records, and interpretation of data from labs, EKGs and imaging as well as managements of active seizures recurrent throughout her emergency department stay with continued re-evaluation and medication with IV antiepileptics as well as IV benzodiazepines Discharge Plan Departure Patient Disposition: [facility] Clinical Impression: Breakthrough seizure Prescriptions: No Action loratadine [Claritin] 10 mg tablet 10 mg PO DAILY Qty: 30 0RF valacyclovir 1 gram tablet See Rx Instructions .ROUTE .COMPLEX Qty: 28 0RF Dose Instruction: Take 2 tablets twice each day for 1 day at 1st sign of cold sore --use as needed for cold sores-- Rx Instructions: Take 2 tablets twice each day for 1 day at 1st sign of cold sore --use as needed for cold sores-- diazepam [Diastat AcuDial] 5-7.5-10 mg kit 5 mg [place] Q6H PRN (Reason: seizure activity) Qty: 1 3RF (DME) Parking Permit... See Rx Instructions .Route .MEDSUPPLY Qty: 1 0RF Rx Instructions: I find this patient to be medically disabled and qualified for Disabled Parking as indicated, and signed, on Accompanying Disabled Parking Application for Individuals nystatin 100,000 unit/gram powder 1 applic topical BID Qty: 30 0RF Rx Instructions: apply to affected area until rash is gone Oxtellar XR 600 mg tablet extended release 24 hr 1,200 mg PO BEDTIME Qty: 180 1RF Rx Instructions: must be taken on empty stomach; no food at least 2 hrs before or 1 hr after dose cholecalciferol (vitamin D3) 25 mcg (1,000 unit) capsule 25 mcg PO DAILY Qty: 90 1RF diazepam 5 mg/spray (0.1 mL) spray,non-aerosol 5 mg intranasal .prn PRN (Reason: seizure activity) Qty: 2 0RF Rx Instructions: as up to 2 sprays for seizure venlafaxine [Effexor XR] 75 mg capsule,extended release 24hr See Rx Instructions PO BEDTIME Qty: 180 1RF Rx Instructions: t2 caps po nightly oxcarbazepine 150 mg tablet 150 mg PO DAILY Qty: 30 0RF levetiracetam [Keppra] 750 mg tablet 750 mg PO BID Qty: 60 0RF Referrals: Cirilo Bryan MD [Primary Care Provider, Family Practice]
[2025-01-12 13:30] LABS: Add Manual Diff / Slide Review NO; Hematocrit 42.2 % (36-46); Hemoglobin 14.1 g/dL (12.0-16.0); Lymphocytes Absolute Auto 1100 /uL (1100-4500); Mean Corpuscular HGB Conc 33.6 % (30-36); Mean Corpuscular Hemoglobin 28.2 PG (26-34); Mean Corpuscular Volume 83.9 fL (80-100); Platelet Count 365 X10^3/uL (150-400)
[2025-01-12] MEDS: MIDAZOLAM 2 MG/2 ML VIAL 4 MG IV ×3 (13:36→17:58)
[2025-01-12 13:54] LABS: Alanine Aminotransferase 43 IU/L (<35); Albumin 4.9 g/dL (3.5-5.0); Albumin Globulin Ratio 1.4 (1.0-2.8); Alkaline Phosphatase 79 U/L (38-126); Blood Urea Nitrogen 9 mg/dL (7-17); Calcium 9.3 mg/dL (8.4-10.2); Carbon Dioxide 18 mmol/L (22-32); Chloride 108 mmol/L (98-107); Estimated Glomerular Filt Rate > 60 mL/min (>60); Globulin 3.5 g/dL (1.7-4.1); Glucose 135 mg/dL (70-99); HEMOLYSIS 29 (0-50); Potassium 4.2 mmol/L (3.4-5.1); Sodium 138 mmol/L (137-145); Total Protein 8.4 g/dL (6.3-8.2)
[2025-01-12] MEDS: KETOROLAC 30 MG/ML VIAL 15 MG IV (15:46)
[2025-01-12 15:52] LABS: Add Manual Diff / Slide Review NO; Hematocrit 39.1 % (36-46); Hemoglobin 13.1 g/dL (12.0-16.0); Lymphocytes Absolute Auto 1400 /uL (1100-4500); Mean Corpuscular HGB Conc 33.6 % (30-36); Mean Corpuscular Hemoglobin 28.1 PG (26-34); Mean Corpuscular Volume 83.6 fL (80-100); Platelet Count 329 X10^3/uL (150-400)
[2025-01-12] MEDS: SODIUM CHLORIDE 0.9% 1,000 ML 1000 ML IV (16:35)
[2025-01-12] MEDS: MIDAZOLAM 5 MG/ML VIAL 4 MG IV (20:03)
--- NOTE | 2025-01-12 20:57 | PC.NURSE ---
Patient arrives here in department with father for unwitnessed seizure that happened sometime this morning. Patients father (Mic) states that she has hx of epilepsy since 18months and two brain surgeries. Patient in triage begins to have another seizure, Dr Salmeron at bedside orders 4mg versed, suction available, seizure pads in place, IV started. 1430 Patient was incontinent of bowel, this RN and AX[employer] Cherry performed matias care and placed pure wick. Patient able to shake her yes and no to questions and able to assist with turning. 1700 this RN calls father Mic to see if he can come back and talk with Dr Salmeron, 1724 Mic reports that patient at baseline communicates like normal and is able to ambulate and states that the facial spasms are not normal and that a large seizure is coming on, this RN notifies provider and versed is ordered see MAR. After second dose of versed patient is able to ask for a warm blanket and then shortly after begins to have?facial spasms again and is unable to respond to questions. Dr Salmeron notified, new orders see MAR
[2025-01-12] MEDS: DEXTROSE 5% IV (21:51)
[2025-01-12] MEDS: VALPROIC ACID IV (21:51)
[2025-01-12] MEDS: WATER IV (21:51)
[2025-01-12] MEDS: ACETAMINOPHEN IV 1,000 MG/100 ML VIAL 400 MG IV (23:31)
[2025-01-13] VITALS: BP 122/77; PULSE 110; RESP 22; O2SAT 97
[2025-01-13 00:30] VITALS: BP 127/73; PULSE 107; RESP 28; O2SAT 95
== END 2025-01-13 01:10 | disposition short-term general hospital (02) ==
PROVIDERS: Emergency Medicine; Emergency Provider Student in an Organized Health Care Education/Training Program; Family Provider Family Medicine; PCP Family Medicine
DX: G40.919 Epilepsy, unspecified, intractable, without status epilepticus (principal)
CPT/HCPCS: 36415; 80053; 81003; 81025; 85025; 96365; 96366; 96367; 96375; 96376; 99284; 99291; J0131; J1885; J1953; J2250